=== PATIENT | female | born 1980 | race Caucasian/White ===

== ENCOUNTER 2020-03-11 21:53 | Observation (INO) | payer MEDICARE ==
[2020-03-11 22:52] LABS: Absolute Lymphocytes (CBC) 1.9 K/uL (0.7-4.9); Basophils % 0.6 % (0-1.3); Hematocrit 37.2 % (36.0-45.0); Lymphocytes % 20.9 % (15.3-44.8); RBC Red Blood Cell Count 4.28 M/uL (3.86-4.86)
[2020-03-11 23:03] LABS: Barbiturates NEGATIVE (NEGATIVE); Benzodiazepines POSITIVE (NEGATIVE); Cocaine NEGATIVE (NEGATIVE); METHAMPHETAM POSITIVE (NEGATIVE); Methadone NEGATIVE (NEGATIVE); Opiates NEGATIVE (NEGATIVE); Phencyclidine NEGATIVE (NEGATIVE); THC Cannibis POSITIVE (NEGATIVE)
[2020-03-11 23:08] LABS: Protime INR 1.06
[2020-03-11 23:34] LABS: ALT/SGPT 34 U/L (12-78); AST/SGOT 35 U/L (15-37); Albumin 3.5 g/dL (3.4-5.0); Alkaline Phosphatase 117 U/L (45-117); BUN Blood Urea Nitrogen 20 mg/dL (7-18); Bicarbonate 28 mmol/L (21-32); Bilirubin Direct 0.1 mg/dL (0-0.2); Bilirubin Total 0.5 mg/dL (0.2-1.0); Glucose Level 188 mg/dL (74-106); Potassium 3.8 mmol/L (3.5-5.1); Protein, Total 7.4 g/dL (6.4-8.2); Sodium Level 139 mmol/L (136-145); Troponin (Emerg Dept Use Only) < 0.02 ng/mL (0.0-0.045)
[2020-03-11 23:39] LABS: Urine Blood NEGATIVE (NEG); Urine Glucose NEGATIVE (NEG); Urine Protein 1+ (NEG); Urine Specific Gravity >1.030 (1.005-1.030); Urine pH 5.5 (5.0-7.0)
--- NOTE | 2020-03-11 23:47 | EDPHYS ---
Physician Documentation [facility] Name: Pamela Richter Age: 39 yrs Sex: Female : 1980 Arrival Date: 03/11/2020 Time: 21:54 Bed 4 Private MD: ED Physician Merritt Vizcaino HPI: 03/11 22:47 This 39 yrs old Female presents to ER via Wheelchair with complaints of pm1 Overdose. 22:47 The patient presents to the emergency department after a known overdose, that was pm1 accidental. Context: Method: rectal delivery, Time: just prior to arrival, the OD/poisoning occurred at at home, and was witnessed by a significant other, boyfriend. Associated signs and symptoms: Pertinent negatives: None at the moment. Patient squirted with a syringe heroin mixed in water. Boyfriend found her on the floor with bluish lips with shallow breathing so he gave her about 8-9 rescue breaths and she started breathing well on her own. Patient denies any other drug use but boyfriend mentioned that she might have used some Xanax. 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 - Social history:: Smoking status: Patient reports the use of cigarette tobacco products, Patient uses alcohol, street drugs, heroin, The patient lives with significant other. ROS: 22:47 Constitutional: Negative for fever, chills, and weight loss, Eyes: Negative for injury, pm1 pain, redness, and discharge, ENT: Negative for injury, pain, and discharge, Neck: Negative for injury, pain, and swelling, Cardiovascular: Negative for chest pain, palpitations, and edema, Respiratory: Negative for shortness of breath, cough, wheezing, and pleuritic chest pain, Abdomen/GI: Negative for abdominal pain, nausea, vomiting, diarrhea, and constipation, Back: Negative for injury and pain, MS/Extremity: Negative for injury and deformity, Skin: Negative for injury, rash, and discoloration, Neuro: Negative for headache, weakness, numbness, tingling, and seizure. Exam: 22:47 Constitutional: This is a well developed, well nourished patient who is awake, alert, pm1 and in no acute distress. Head/Face: Normocephalic, atraumatic. 22:47 MS/ Extremity: Pulses equal, no cyanosis. Neurovascular intact. Full, normal range of motion. 22:47 Cardiovascular: Exam negative for acute changes, Rate: normal, Rhythm: regular, Pulses: no pulse deficits are appreciated. 22:47 Respiratory: Exam negative for acute changes, respiratory distress, shortness of breath. 22:47 Neuro: Exam negative for acute changes, Orientation: to person, place, time, situation, appears sleepy. Mentation: is normal, Motor: is normal, moves all fours, Sensation: is normal, no obvious gross deficits. Vital Signs: 22:10 BP 114 / 75; Pulse 80; Resp 18; Temp 97.5(TE); Pulse Ox 100% on 3 lpm NC; oe 23:00 BP 113 / 62; Pulse 69; Resp 15; Pulse Ox 99% on 2 lpm NC; rr5 03/12 00:00 BP 104 / 77; Pulse 75; Resp 14; Pulse Ox 98% on 2 lpm NC; rr5 00:50 BP 111 / 70; Pulse 70; Resp 16; Pulse Ox 99% on 2 lpm NC; rr5 [place] Coma Score: 03/11 22:00 Eye Response: to voice(3). Verbal Response: oriented(5). Motor Response: obeys rr5 commands(6). Total: 14. 03/12 00:00 Eye Response: to voice(3). Verbal Response: oriented(5). Motor Response: obeys rr5 commands(6). Total: 14. MDM: 03/11 22:20 Patient medically screened. pm1 23:10 Data reviewed: vital signs. Data interpreted: Pulse oximetry: on room air is 100 %. pm1 Interpretation: normal. 23:44 Counseling: I had a detailed discussion with the patient and/or guardian regarding: the pm1 historical points, exam findings, and any diagnostic results supporting the discharge/admit diagnosis, lab results, the need for further work-up and treatment in the hospital. 23:44 Physician consultation: Santino PEARSON was called at 23:46, was contacted at 23:46, pm1 regarding admission, patient's condition, and will see patient in ED. 03/11 22:14 Order name: Acetaminophen; Complete Time: 23:39 rr5 03/11 22:14 Order name: Basic Metabolic Panel; Complete Time: 23:39 rr5 03/11 22:14 Order name: CBC with Diff; Complete Time: 23:31 rr5 03/11 22:14 Order name: ETOH Level; Complete Time: 23:31 rr5 03/11 22:14 Order name: Hepatic Function; Complete Time: 23:39 rr5 03/11 22:14 Order name: PT-INR; Complete Time: 23:31 rr5 03/11 22:14 Order name: Ptt, Activated; Complete Time: 23:31 rr5 03/11 22:14 Order name: Salicylate; Complete Time: 23:31 rr5 03/11 22:14 Order name: Urine Drug Screen; Complete Time: 23:31 rr5 03/11 22:40 Order name: Glucose, Ancillary Testing; Complete Time: 22:47 EDMS 03/11 22:43 Order name: Urine --Ancillary (enter results); Complete Time: 23:39 tt3 03/11 22:43 Order name: Urine Dipstick--Ancillary (enter results); Complete Time: 23:39 tt3 03/11 22:47 Order name: Troponin (Emerg Dept Use Only); Complete Time: 23:39 EDMS 03/11 22:14 Order name: EKG; Complete Time: 22:14 rr5 03/11 22:14 Order name: EKG - Nurse/Tech; Complete Time: 22:34 rr5 03/11 22:14 Order name: IV Saline Lock; Complete Time: 22:34 rr5 03/11 22:14 Order name: Labs collected and sent; Complete Time: 22:34 rr5 03/11 22:14 Order name: Urine Dipstick-Ancillary (obtain specimen); Complete Time: 22:34 rr5 03/11 22:34 Order name: Urine Test (obtain specimen); Complete Time: 22:34 rr5 03/11 22:34 Order name: Straight Cath - Urine; Complete Time: 22:35 rr5 03/12 00:28 Order name: COVID-19 rr5 Administered Medications: 23:50 Drug: NS 0.9% 1000 ml Route: IV; Rate: 1000 ml; Site: left hand; rr5 Disposition: 03/12 05:37 Co-signature as Attending Physician, Merritt Vizcaino MD. [email or web address] Disposition: 03/11/20 23:46 Hospitalization ordered by Arslan Shetty for Observation. Preliminary diagnosis is Poisoning by heroin, accidental (unintentional). - Bed requested for Telemetry/MedSurg (observation). - Status is Observation. rr5 - Condition is Stable. - Problem is new. - Symptoms have improved. Signatures: Dispatcher [employer] EDIL Vinicius Jarrell, RN RN sg Brigido Huber, OPERATIONS REPRESENTATIVE OPERATIONS REPRESENTATIVE pm1 Aman Quinn RN RN rr5 Merritt Vizcaino MD MD [email or web address] Corrections: (The following items were deleted from the chart) 03/11 22:47 22:22 TROPONIN (EMERG DEPT USE ONLY)+C.LAB.BRZ ordered. EDIL EDIL 03/12 00:54 03/11 23:46 Hospitalization Ordered by Arslan Shetty DO for Observation. Preliminary rr5 diagnosis is Poisoning by heroin, accidental (unintentional). Bed requested for Telemetry/MedSurg (observation). Status is Observation. Condition is Stable. Problem is new. Symptoms have improved. pm1
--- NOTE | 2020-03-11 23:47 | ER ---
Nurse's Notes [facility] Name: Pamela Richter Age: 39 yrs Sex: Female : 1980 Arrival Date: 03/11/2020 Time: 21:54 Bed 4 Private MD: Diagnosis: Poisoning by heroin, accidental (unintentional) Presentation: 03/11 22:04 Acuity: MANDI 1 sg 22:05 Chief complaint: Friend and/or Co-Worker states: I found her laying down, wasn't sg responding wasn't breathing, her lips and hands were blue. I started CPR with rescue breathing and she was able to respond, I was not able to find Narcan to give to her, I think she had moved it. She did heroin for sure, rectally, Im not sure if she did any bars tonight or not, I was at work and I found her like that and just had to get her here. Coronavirus screen: Client denies travel out of the [place] in the last 14 days. At this time, the client does not indicate any symptoms associated with coronavirus-19. Ebola Screen: Patient negative for fever greater than or equal to 101.5 degrees Fahrenheit, and additional compatible Ebola Virus Disease symptoms Patient denies exposure to infectious person. Patient denies travel to an Ebola-affected area in the 21 days before illness onset. No symptoms or risks identified at this time. Initial Sepsis Screen: Does the patient meet any 2 criteria? No. Patient's initial sepsis screen is negative. Does the patient have a suspected source of infection? No. Patient's initial sepsis screen is negative. Risk Assessment: Do you want to hurt yourself or someone else? Patient reports no desire to harm self or others. Onset of symptoms was March 11, 2020. Care prior to arrival: None. Mechanism of Injury:. Transition of care: patient was not received from another setting of care. 22:05 Method Of Arrival: Wheelchair sg Triage Assessment: 22:04 General: Appears unkempt, well nourished, Behavior is cooperative, drowsy. Neuro: Level sg of Consciousness is obeys commands, confused, Oriented to person, situation. Cardiovascular: Capillary refill is > 3 seconds is sluggish in bilateral fingers. Respiratory: Airway is patent Respiratory effort is relaxed, shallow, Respiratory pattern is hypoventilation. Derm: Skin is mottled, Skin temperature is cool. 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 - Social history:: Smoking status: Patient reports the use of cigarette tobacco products, Patient uses alcohol, street drugs, heroin, The patient lives with significant other. Screenin:35 Abuse screen: Denies threats or abuse. Denies injuries from another. Nutritional rr5 screening: No deficits noted. Tuberculosis screening: No symptoms or risk factors identified. Fall Risk IV access (20 points). Gait- Impaired (20 pts.). Mental Status- Overestimates/Forgets Limitations (15 pts.). Total Hung Fall Scale indicates High Risk Score (45 or more points). Fall prevention measures have been instituted. Side Rails Up X 2 Placed Close to Nursing Station Frequent Obs/Assessments Occuring Family Present and informed to notify staff if the need to leave the bedside As available patient and family educated on Fall Prevention Program and Strategies. Assessment: 22:00 General: Appears in no apparent distress. Behavior is cooperative, drowsy, Reports took rr5 heroin as stated by patient. Pain: Denies pain. Neuro: Level of Consciousness is drowsy. Cardiovascular: Capillary refill < 3 seconds Patient's skin is warm and dry. Respiratory: Airway is patent Respiratory effort is even, unlabored, Respiratory pattern is regular, symmetrical. GI: No signs and/or symptoms were reported involving the gastrointestinal system. : No signs and/or symptoms were reported regarding the genitourinary system. EENT: No signs and/or symptoms were reported regarding the EENT system. Derm: Skin is intact, is healthy with good turgor, Skin temperature is warm. Musculoskeletal: Circulation, motion, and sensation intact. Capillary refill < 3 seconds. 23:00 Reassessment: Patient appears in no apparent distress at this time. Patient and/or rr5 family updated on plan of care and expected duration. Pain level reassessed. patient respond to verbal stimuli. 03/12 00:00 Reassessment: Patient appears in no apparent distress at this time. hospitalist at rr5 bedside discussed th e plan of care. 00:50 Reassessment: Patient appears in no apparent distress at this time. Patient is alert, rr5 oriented x 3, equal unlabored respirations, skin warm/dry/pink. trasnferred to ICU. Overdose: 03/11 22:04 Patient took heroin, unsure of how much as it was added to a syringe of water and sg inserted into the anus. Overdose occurred 30 minutes to 1 hour ago. Vital Signs: 22:10 BP 114 / 75; Pulse 80; Resp 18; Temp 97.5(TE); Pulse Ox 100% on 3 lpm NC; oe 23:00 BP 113 / 62; Pulse 69; Resp 15; Pulse Ox 99% on 2 lpm NC; rr5 03/12 00:00 BP 104 / 77; Pulse 75; Resp 14; Pulse Ox 98% on 2 lpm NC; rr5 00:50 BP 111 / 70; Pulse 70; Resp 16; Pulse Ox 99% on 2 lpm NC; rr5 [place] Coma Score: 03/11 22:00 Eye Response: to voice(3). Verbal Response: oriented(5). Motor Response: obeys rr5 commands(6). Total: 14. 03/12 00:00 Eye Response: to voice(3). Verbal Response: oriented(5). Motor Response: obeys rr5 commands(6). Total: 14. ED Course: 03/11 21:54 Patient arrived in ED. am2 22:04 Triage completed. sg 22:04 Arm band placed on. sg 22:05 [facility] pm1 22:05 Merritt Vizcaino MD is Attending Physician. pm1 22:10 EKG done, by ED staff, reviewed by Brigido Huber NP. rr5 22:13 Aman Quinn RN is Primary Nurse. rr5 22:15 Inserted saline lock: 20 gauge in left hand, using aseptic technique. Blood collected. rr5 22:35 Patient has correct armband on for positive identification. Placed in gown. Bed in low rr5 position. Call light in reach. Side rails up X2. teletypesetter monitor on. Pulse ox on. NIBP on. 22:35 Urine collected: straight cath specimen, clear. rr5 23:46 Arslan Shetty DO is Hospitalizing Provider. pm1 03/12 00:50 No provider procedures requiring assistance completed. Patient admitted, IV remains in rr5 place. intact, No redness/swelling at site. Administered Medications: 03/11 23:50 Drug: NS 0.9% 1000 ml Route: IV; Rate: 1000 ml; Site: left hand; rr5 Outcome: 23:46 Decision to Hospitalize by Provider. pm1 03/12 00:50 Admitted to ICU accompanied by nurse, via stretcher, room 9, with oxygen, with chart, rr5 Report called to lori Condition: stable Instructed on the need for admit. 00:54 Patient left the ED. rr5 Signatures: Vinicius Jarrell, RN RN sg Brigido Huber, DANIELLE SENIOR ANDROID SOFTWARE ENGINEER pm1 Wild Pittman Amanda am2 Aman Quinn, RN RN rr5
[2020-03-11] MEDS ORDERED: NA CHLORIDE 0.9% 1,000 ML ONE (23:58)
--- NOTE | 2020-03-12 00:39 | P.HP ---
Certification for Inpatient Patient admitted to: Observation With expected LOS: <2 Midnights Patient will require the following post-hospital care: None Practitioner: I am a practitioner with admitting privileges, knowledge of patient current condition, hospital course, and medical plan of care. Services: Services provided to patient in accordance with Admission requirements found in Title 42 Section 412.3 of the Code of Federal Regulations Patient History Date of Service: 03/12/20 Primary Care Provider: None Reason for admission: Opiate overdose History of Present Illness: 39-year-old female with history of diabetes mellitus type 1, hypertension presents emergency department for opiate overdose. Patient lives in the boyfriend who states that he found he had stepped outside for a couple min and walked into find her lying on the floor, unresponsive and cyanotic. He started giving rescue breaths and perform CPR and she then responded. Upon arrival to the ED patient was awake but very drowsy, admits to taking small amount of methamphetamine and taking heroin rectally this evening. Patient also admits to occasionally using marijuana as well as drinking vodka daily. Patient's workup in the emergency department was unremarkable aside from clinical dehydration. When I saw the patient in the emergency department she was obtunded but arousable to loud verbal stimulus. Patient quickly falls back asleep. Patient has not received Narcan at this time, respiratory rate normal. Will admit patient to ICU for close monitoring overnight. Can likely be discharged tomorrow. - Past Medical/Surgical History Diabetic: Yes -: Diabetes mellitus type 1 -: Hypertension -: Narcotic drug abuse -: Alcohol abuse -: Tobacco abuse -: none Psychosocial/ Personal History: Patient lives with her boyfriend and is currently unemployed - Family History Family History: Reviewed- Non-Contributory - Social History Smoking Status: Current every day smoker Counseled patient to stop smoking for: less than 10 minutes Smoking therapy provided: Yes Alcohol use: Yes CD- Drugs: Yes Caffeine use: Yes Place of Residence: Home Review of Systems Unremarkable Physical Examination - Physical Exam General: Oriented x3, Other (Obtunded, arousable to loud verbal stimulus but quickly falls back asleep) HEENT: Atraumatic, Normocephalic, PERRLA, Mucous membr. moist/pink (Mucous membranes dry) Neck: Supple Respiratory: Clear to auscultation bilaterally, Normal air movement Cardiovascular: No edema, Normal S1 S2 Capillary refill: <2 Seconds Gastrointestinal: Normal bowel sounds, Soft and benign Musculoskeletal: No contractures, No erythema, No tenderness Integumentary: No significant lesion, No tenderness/swelling, No erythema Neurological: Normal speech, Normal strength at 5/5 x4 extr, Normal tone, Normal affect - Studies Laboratory Data (last 24 hrs) 03/11/20 22:30: Sodium 139, Potassium 3.8, BUN 20 H, Creatinine 0.86, Glucose 188 H, Total Bilirubin 0.5, AST 35, ALT 34, Alkaline Phosphatase 117 03/11/20 22:24: PT 12.5, INR 1.06, APTT 28.6 03/11/20 22:24: WBC 9.1, Hgb 12.9, Hct 37.2, Plt Count 269 Assessment and Plan - Plan Assessment Opiate overdose Diabetes mellitus type 1 Hypertension Narcotic drug abuse Alcohol abuse Tobacco abuse Plan Opiate overdose: Admit to ICU for close monitoring overnight, continue to monitor respiratory status closely. Patient does appear clinically dehydrated, continue with IV hydration overnight. P.r.n. Narcan. DVT prophylaxis Lovenox 40 mg subcutaneous once daily. Discussed need for cessation. Diabetes mellitus type 1: A.c. HS Accu-Cheks, sliding scale insulin therapy, A1c with morning labs. Hypertension: Patient blood pressure around 100 systolic at this time, the obtain home medications but hold at this time. Narcotic drug abuse: Discussed need for cessation. Alcohol abuse: Patient reports drinking 2-3 alcoholic beverages per day typically vodka. Discussed need for cessation. No signs of withdrawal at this time. Will monitor closely. Tobacco abuse: Discussed need for cessation, will provide patient with nicotine patch as needed. Discharge Plan: Home Plan to discharge in: 24 Hours - Advance Directives Does patient have a Living Will: No Does patient have a Durable POA for Healthcare: No - Code Status/Comfort Care Code Status Assessed: Yes Critical Care: No Time Spent Managing Pts Care (In Minutes): 55
[2020-03-12 01:44] VITALS: BMI 23.1
[2020-03-12] MEDS ORDERED: NA CHLORIDE 0.9% 1,000 ML IV SCH (01:48)
[2020-03-12] MEDS ORDERED: ONDANSETRON 4 MG/2 ML VIAL IV PRN (01:48)
[2020-03-12] MEDS ORDERED: NALOXONE HCL 2 MG/2 ML VIAL IV PRN (01:48)
[2020-03-12] MEDS ORDERED: ACETAMINOPHEN 500 MG TAB PO PRN (01:48)
[2020-03-12] MEDS ORDERED: NA CHLORIDE 0.9% 1,000 ML ONE (02:12)
[2020-03-12 05:42] LABS: Absolute Lymphocytes (CBC) 2.2 K/uL (0.7-4.9); BUN Blood Urea Nitrogen 19 mg/dL (7-18); Basophils % 0.6 % (0-1.3); Bicarbonate 29 mmol/L (21-32); Glucose Level 113 mg/dL (74-106); Hematocrit 38.1 % (36.0-45.0); MPV 9.1 fL (7.6-11.3); Potassium 4.1 mmol/L (3.5-5.1); RBC Red Blood Cell Count 4.33 M/uL (3.86-4.86); Sodium Level 142 mmol/L (136-145)
[2020-03-12] MEDS ORDERED: INSULIN -REGULAR HUMAN 50 UNIT/0.5 ML ML SQ SCH (07:30)
[2020-03-12] MEDS ORDERED: NICOTINE 21 MG/PAT TD ONE (08:03)
[2020-03-12] MEDS ORDERED: INSULIN -REGULAR HUMAN 50 UNIT/0.5 ML ML ONE (08:04)
[2020-03-12] MEDS ORDERED: ENOXAPARIN 40 MG/0.4 ML SQ ONE (08:04)
[2020-03-12 08:21] VITALS: O2SAT 96
[2020-03-12] MEDS ORDERED: INFLUENZA VACCINE (for 3y+) 0.5 ML DOSE IMVAC ONE (09:00)
[2020-03-12] MEDS ORDERED: ENOXAPARIN 40 MG/0.4 ML SQ SCH (09:00)
[2020-03-12] MEDS ORDERED: NICOTINE 21 MG/PAT TD SCH (09:00)
[2020-03-12] MEDS ORDERED: ONDANSETRON 4 MG/2 ML VIAL ONE (10:04)
--- NOTE | 2020-03-12 10:38 | P.DS ---
Discharge Date: 03/12/20 Primary Care Provider: None Disposition: ROUTINE DISCHARGE Discharge Condition: GOOD Reason for Admission: Opiate overdose Brief History of Present Illness: Patient is a 39-year-old female with history of diabetes mellitus type 1, hypertension presents emergency department for opiate overdose. Patient lives in the boyfriend who states that he found he had stepped outside for a couple min and walked into find her lying on the floor, unresponsive and cyanotic. He started giving rescue breaths and perform CPR and she then responded. Upon arrival to the ED patient was awake but very drowsy, admits to taking small amount of methamphetamine and taking heroin rectally this evening. Patient also admits to occasionally using marijuana as well as drinking vodka daily. Patient's workup in the emergency department was unremarkable aside from clinical dehydration. When I saw the patient in the emergency department she was obtunded but arousable to loud verbal stimulus. Patient quickly falls back asleep. Patient has not received Narcan at this time, respiratory rate normal. Will admit patient to ICU for close monitoring overnight. Can likely be discharged tomorrow. Hospital Course: Patient is clinically doing much better. Her is at bedside and he states that she is back to her baseline. At this time she is stable for discharge with outpatient followup 1-2 weeks. Vital Signs/Physical Exam: Temp Pulse Resp BP Pulse Ox 97.5 F 72 15 118/80 95 03/12/20 06:00 03/12/20 06:00 03/12/20 06:00 03/12/20 06:00 03/12/20 06:00 General: Alert, In no apparent distress, Oriented x3 Laboratory Data at Discharge: WBC 7.5 K/uL (4.3-10.9) D 03/12/20 04:38 Hgb 13.0 g/dL (12.0-15.0) 03/12/20 04:38 Hct 38.1 % (36.0-45.0) 03/12/20 04:38 Plt Count 262 K/uL (152-406) 03/12/20 04:38 PT 12.5 SECONDS (9.5-12.5) 03/11/20 22:24 INR 1.06 03/11/20 22:24 APTT 28.6 SECONDS (24.3-36.9) 03/11/20 22:24 Sodium 142 mmol/L (136-145) 03/12/20 04:38 Potassium 4.1 mmol/L (3.5-5.1) 03/12/20 04:38 BUN 19 mg/dL (7-18) H 03/12/20 04:38 Creatinine 0.68 mg/dL (0.55-1.3) 03/12/20 04:38 Glucose 113 mg/dL (74-106) H 03/12/20 04:38 Total Bilirubin 0.5 mg/dL (0.2-1.0) 03/11/20 22:30 AST 35 U/L (15-37) 03/11/20 22:30 ALT 34 U/L (12-78) 03/11/20 22:30 Alkaline Phosphatase 117 U/L (45-117) 03/11/20 22:30 Home Medications: Insulin Aspart [Novolog Flexpen] See Protocol SQ TID #2 03/12/20 Insulin Glargine Human [Lantus*] 35 unit SQ DAILY 03/12/20 Metoprolol Succinate 50 mg PO DAILY 03/12/20 clonazePAM [Clonazepam] 0.5 mg PO BIDP PRN 03/12/20 New Medications: Insulin Aspart [Novolog Flexpen] See Protocol SQ TID #2 Patient Discharge Instructions: OK TO DC IV AND DC HOME. FOLLOW-UP WITH PRIMARY CARE PROVIDER IN 1-2 WEEKS. FOLLOW-UP WITH REHAB IF REQUESTED. RETURN TO THE ER IF symptoms worsen. CALL or TEXT DR. PICKETT AT [phone] IF ANY QUESTIONS REGARDING HOSPITAL STAY. PLEASE CALL THE FLOOR AT [phone] IF ANY MEDICATION OR NURSING QUESTIONS. Diet: Regular Activity: Fall precautions Time spent managing pt's care (in minutes): 25
[2020-03-12 11:02] VITALS: BP 124/89; TEMP 97.8
--- OUTSIDE RECORDS SUMMARY | 2020-03-15 02:05 | XMS REPORT | Clinical Summary ---
:1980 Author Organization [facility] Address [address] [place] [address] Care Team Providers Name Role Phone Unavailable Primary Care Provider Unavailable Allergies No Known Allergies Medications Medication Sig Dispensed Refills Start Date End Date Status hydrochlorothiazide 12.5 mg Take 12.5 mg 0 Active capsule by mouth every morning. insulin glargine (LANTUS Inject under 0 Active SOLOSTAR) 100 unit/mL (3 the skin mL) InPn once. insulin aspart (NOVOLOG) Inject under 0 Active 100 unit/mL injection the skin 3 times daily. ibuprofen (MOTRIN) 400 mg Take 1 tablet 20 tablet 0 05/17/2014 Active tabletIndications: by mouth Cellulitis every 6 hours as needed for Pain. acetaminophen-codeine Take 1 tablet 15 tablet 0 05/29/2014 Active (TYLENOL/CODEINE #3) 300-30 by mouth mg per tabletIndications: every 4 hours Abscess as needed for Pain. Active Problems Problem Noted Date Cough 05/16/2014 Social History Tobacco Use Types Packs/Day Years Used Date Never Assessed Sex Assigned at Date Recorded Not on file Job Start Date Occupation Industry Not on file Not on file Not on file Travel History Travel Start Travel End No recent travel history available. 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
--- OUTSIDE RECORDS SUMMARY | 2020-03-15 02:06 | XMS REPORT | Clinical Summary ---
:1980 Author Organization [facility] Address [address] [place] [address] Care Team Providers Name Role Phone Jone Goldman MD Primary Care Provider Allergies No Known Active Allergies Medications Medication Sig Dispensed Refills Start Date End Date Status insulin ASPART Inject 10 Units 0 Active (NovoLOG) 100 under the skin. unit/mL insulin pen insulin GLARGINE Inject 30 Units 0 Active (LANTUS) 100 unit/mL under the skin injection (vial) daily. zolpidem (AMBIEN) 5 Take 10 mg by 0 07/20/2017 Active MG tablet mouth nightly as needed for sleep. clonAZEPAM Take 0.5 mg by 1 06/18/2017 Act wolf (KlonoPIN) 0.5 MG mouth 2 (two) tablet times a day as needed for anxiety. metoprolol tartrate Take 25 mg by 0 Active (LOPRESSOR) 25 mg mouth daily. tablet flash glucose 1 Package daily. 1 each 0 07/28/2019 Active scanning reader (FREESTYLE RUPA 14 DAY READER) [facility] flash glucose sensor 6 Packages 1 kit 0 07/28/2019 Active (FREESTYLE RUPA 14 daily. DAY SENSOR) kit HYDROcodone-acetamin Take 1 tablet by 15 tablet 0 07/27/2019 0 07/31/2019 ophen (NORCO) 5-325 mouth every 6 mg per (six) hours as tabletIndications: needed for acute pain moderate pain for up to 4 days .acute pain. Max Daily Amount: 4 tablets ondansetron (ZOFRAN) Take 1 tablet (4 12 tablet 0 07/27/2019 0 07/31/2019 4 MG tablet mg total) by mouth every 8 (eight) hours as needed for nausea or vomiting for up to 4 days. cephalexin (KEFLEX) Take 1 capsule 28 capsule 0 07/27/2019 500 MG capsule (500 mg total) by mouth 4 (four) times a day for 7 days. aspirin 81 mg Chew 1 tablet 30 tablet 0 07/29/2019 08/28/2019 chewable tablet (81 mg total) daily for 30 days. cephalexin (KEFLEX) Take 1 capsule 28 capsule 0 07/28/2019 500 MG capsule (500 mg total) by mouth 4 (four) times a day for 7 days. ondansetron (ZOFRAN) Take 1 tablet (4 20 tablet 0 07/28/2019 0 08/27/2019 4 MG tablet mg total) by mouth every 8 (eight) hours as needed for nausea or vomiting for up to 30 days. Active Problems Problem Noted Date Laceration of right little finger without foreign body without damage to 07/28/2019 nail Injury of finger of right hand 07/28/2019 Type 2 diabetes mellitus with hyperglycemia, with long -term current use of 07/28/2019 insulin Laceration of right little finger without foreign body without damage to 07/27/2019 nail Encounters Date Type Specialty Care Team Description 08/01/2019 Office Visit Orthopedic Surgery Navin Sullivan Lacer ation of right MD Ayaz little finger without foreign body without damage to nail, subsequen t encounter (Prim yee Dx) 08/01/2019 Orders Only Orthopedic Surgery Mickey Sutton MA Lace ration of right little finger without foreign body without damage to nail, initial encounter (Prim yee Dx) 07/27/2019 Anesthesia Event General Surgery Gucci Frias MD 07/27/2019 Surgery General Surgery Navin Sullivan Right li ttle finger MD Ayaz i&d with arteri al and nerve repai r 07/27/2019 Orders Only Orthopedic Surgery Mickey Sutton MA 07/26/2019 - Emergency General Surgery Nicolas Pickens Lacerat ion of right little finger without damage to nail, foreign body presence unspecified, initial encounter (Primary Dx); 07/28/2019 MD Rio Laceration of right little finger withou t foreign body without damage to nail, initial encounter; Yerramadha, Injury of finge r of right hand, initial encounter; Deisy Sharma, Type 2 chun betes mellitus with hyperglycemia, with long-term current use of insulin (HCC) 07/25/2019 Emergency Emergency Medicine Tony Chang Right elb ow pain (Primary Dx); MD Wilberto Hyperglycemia after 03/14/2019 Surgical History Surgery Date Site/Laterality Comments REPAIR, NERVE, DIGITAL, 07/27/2019 Little Finger/Right Proc edure: Right little HAND finger i&d with arterial and nerve repair; S urgeon: Navin Sullivan MD; Location: [facility]; Service: Orthopedics; La terality: Right; Medical devices from this surgery are in t he Implants section. Medical History Medical History Date Comments Diabetes mellitus (HCC) Pancreatitis Social History Tobacco Use Types Packs/Day Years Used Date Current Every Day Smoker Cigarettes 0.5 Smokeless Tobacco: Never Used Alcohol Use Drinks/Week oz/Week Comments Yes Sex Assigned at Date Recorded Not on file Last Filed Vital Signs Vital Sign Reading Time Taken Comments Blood Pressure 129/69 07/28/2019 10:42 AM [facility]ERSON Pulse 87 07/28/2019 10:42 AM [facility] UP PERSON Temperature 36.7 C (98.1 F) 07/28/2019 10:42 AM [facility] UP PERSON Respiratory Rate 14 07/28/2019 10:42 AM [facility] UP PERSON Oxygen Saturation 100% 07/28/2019 10:42 AM [facility] UP PERSON Inhaled Oxygen Concentration - - Weight 77.1 kg (170 lb) 08/01/2019 11:24 AM DISH UP PERSON Height 170.2 cm (5' 7") 08/01/2019 11:24 AM [facility] UP PERSON Body Mass Index 26.63 08/01/2019 11:24 AM [facility]ISH UP PERSON Plan of Treatment Health Maintenance Due Date Last Done Comments DIABETIC RETINAL EYE EXAM 1978 DIABETIC FOOT EXAM 1988 URINE MICROALBUMIN 1988 CERVICAL CANCER SCREENING 08/08/1999 INFLUENZA VACCINE 01/07/2020 04/22/2013 Implants Implanted Type Area Barbecue Cook Device Shelf Model / Identifier Expiration Serial / Date Lot 2mm X 10mm Axoguard Nerve Connector (Mfr 'D [employer], Sold Exclusively By [employer]) Graft Right: [employer] 07/08/2020 [id number] / Implanted: Qty: 1 on 07/27/2019 by Navin Sullivan MD at [facility] Material Hand [id number] / [id number] Procedures Procedure Name Priority Date/Time Associated Comments Diagnosis POC GLUCOSE Routine 07/28/2019 11:42 Results for this AM [facility] UP PERSON procedure are i n the results section. POC GLUCOSE Routine 07/28/2019 6:00 Results for this AM [facility] UP PERSON procedure are i n the results section. HC COMPLETE BLD COUNT Routine 07/28/2019 5:06 Re sults for this W/AUTO DIFF AM [facility] UP PERSON procedure are i n the results section. POC GLUCOSE Routine 07/27/2019 1:34 Results for this PM [facility] UP PERSON procedure are i n the results section. NH AN ELECTIVE Routine 07/27/2019 10:10 Results f or this ENDOTRACHEAL AIRWAY AM [facility] UP PERSON procedur e are in the results section. REPAIR, NERVE, DIGITAL, 07/27/2019 9:46 3 cm lacerati on to HAND AM [facility] UP PERSON right 5th finger POC GLUCOSE Routine 07/27/2019 8:17 Results for this AM [facility] UP PERSON procedure are i n the results section. ECG 12-LEAD Routine 07/27/2019 8:01 Results for this AM [facility] UP PERSON procedure are i n the results section. HCG QUALITATIVE, SERUM Routine 07/27/2019 4:25 R esults for this SCREEN AM [facility] UP PERSON procedure are i n the results section. ORTHOPEDIC INJURY Routine 07/27/2019 2:58 Laceration of Resul ts for this TREATMENT AM [facility] UP PERSON right little procedure are i n finger without the results damage to nail, section. foreign body presence unspecified, initial encounter XR HAND 3+ VW RIGHT STAT 07/27/2019 12:37 Resu lts for this AM [facility] UP PERSON procedure are i n the results section. ESTIMATED GFR STAT 07/27/2019 12:36 Results fo r this AM [facility] PERSON procedure are i n the results section. TYPE AND SCREEN Routine 07/27/2019 12:36 Results for this AM [facility] UP PERSON procedure are i n the results section. COMPREHENSIVE METABOLIC STAT 07/27/2019 12:36 Results for this PANEL AM [facility] UP PERSON procedure are i n the results section. PARTIAL THROMBOPLASTIN STAT 07/27/2019 12:36 R esults for this TIME (PTT) AM [facility] UP PERSON procedure are i n the results section. PROTHROMBIN TIME WITH STAT 07/27/2019 12:36 Re sults for this INR AM [facility]ISH UP PERSON procedure are i n the results section. HC COMPLETE BLD COUNT STAT 07/27/2019 12:30 Re sults for this W/AUTO DIFF AM [facility] UP PERSON procedure are i n the results section. NH CRITICAL CARE, E/M Routine 07/26/2019 11:42 Re sults for this 30-74 MINUTES PM [facility] UP PERSON procedure are in the results section. LACERATION REPAIR Routine 07/26/2019 11:42 Result s for this PM [facility] PERSON procedure are i n the results section. POC GLUCOSE Routine 07/25/2019 8:52 Results for this PM [facility] PERSON procedure are i n the results section. ECG 12-LEAD STAT 07/25/2019 8:07 Results for this PM [facility] UP PERSON procedure are i n the results section. ESTIMATED GFR STAT 07/25/2019 8:04 Results fo r this PM [facility] UP PERSON procedure are i n the results section. TROPONIN STAT 07/25/2019 8:04 Results for this PM [facility] UP PERSON procedure are i n the results section. LIPASE LEVEL STAT 07/25/2019 8:04 Results for this PM [facility] UP PERSON procedure are i n the results section. VENOUS BLOOD GAS STAT 07/25/2019 8:04 Results for this PM [facility] UP PERSON procedure are i n the results section. COMPREHENSIVE METABOLIC STAT 07/25/2019 8:04 Results for this PANEL PM [facility] UP PERSON procedure are i n the results section. HC COMPLETE BLD COUNT STAT 07/25/2019 8:04 Re sults for this W/AUTO DIFF PM DISH UP PERSON procedure are i n the results section. XR ELBOW 3+ VW RIGHT STAT 07/25/2019 7:46 Res ults for this PM D[facility] UP PERSON procedure are i n the results section. XR CHEST 1 VW PORTABLE STAT 07/25/2019 7:40 R esults for this PM [facility] UP PERSON procedure are i n the results section. ECG ED PRELIMINARY Routine 07/25/2019 7:26 Resul ts for this INTERPRETATION PM DISH UP PERSON procedure are in the results section. POC GLUCOSE Routine 07/25/2019 7:10 Results for this PM [facility] UP PERSON procedure are i n the results section. after 03/14/2019 Results POC glucose (07/28/2019 11:42 AM DISH UP PERSON)Only the most recent of6 resultswithin the time period is included. Pathologist Sig nature POC glucose 70 65 - 99 mg/dL [facility] Comment: [facility] Black Pickler Name: Dom Love Device ID: [id number] Specimen Performing Organization Address City/State/ZIP Code Phon e Number [facility] DEPARTMENT OF PATHOLOGY AND [id number] [place] [address] [place] [id number] [facility] [address] [place] [address] CBC with platelet and differential (07/28/2019 5:06 AM DISH UP PERSON)Only the most recent of3 resultswithin the time period is included. Pathologist Sig nature WBC 7.28 4.50 - 11.00 k/uL [facility] RBC 3.71 (L) 4.20 - 5.50 m/uL [facility] HGB 11.0 (L) 12.0 - 16.0 g/dL [facility] HCT 33.4 (L) 37.0 - 47.0 % [facility] MCV 90.0 82.0 - 100.0 fL [facility] MCH 29.6 27.0 - 34.0 pg [facility] MCHC 32.9 31.0 - 37.0 g/dL [facility] RDW - SD 39.2 37.0 - 55.0 fL [facility] MPV 11.1 8.8 - 13.2 fL [facility] Platelet count 245 150 - 400 k/uL [facility] Nucleated RBC 0.00 /100 WBC [facility] Neutrophils 64.8 39.0 - 69.0 % [facility] Lymphocytes 26.9 25.0 - 45.0 % [facility] Monocytes 7.6 0.0 - 10.0 % [facility] Eosinophils 0.1 0.0 - 5.0 % [facility] Basophils 0.3 0.0 - 1.0 % [facility] Specimen Blood Performing Organization Address City/State/ZIP Code Phon e Number [facility] DEPARTMENT OF PATHOLOGY AND [address] [place] [address] [facility] [id number] [place] [address] Airway (07/27/2019 10:10 AM DISH UP PERSON) Narrative Performed At Gucci Frias MD 07/27/2019 10:11 AM Airway Date/Time: 07/27/2019 9:51 AM Performed by: uGcci Frias MD Authorized by: Gucci Frias MD Location: OR Urgency: Elective Difficult Airway: No Anesthesiologist: Gucci Frias MD Preoxygenated with 100% O2: Yes C-spine Precautions Maintained Throughou t: Yes Mask Ventilation: Easy mask Final Airway Type: Endotracheal airway Final Endotracheal Airway: ETT Cuffed: Yes Technique Used: Direct laryngoscopy Devices/Methods Used in Placement: Int ubating stylet Insertion Site: Oral Blade Type: [place] Laryngoscope Blade/Videolaryngoscope Mulugeta de Size: 2 ETT Size (mm): 7.0 Cuff at minimum occlusion pressure: Yes Measured from: Lips ETT to Lips (cm): 20 Placement Verified by: CO2 detection, di rect visualization and equal breath sounds Laryngoscopic view: Grade IIa - partia l view of glottis Rapid Sequence Induction (RSI): No Modified RSI: No Number of Attempts at Approach: 1 ECG 12 lead (07/27/2019 8:01 AM DISH UP PERSON)Only the most recent of2 resultswithin the time period is included. Pathologist Sig nature Ventricular rate 82 [facility] Atrial rate 82 [facility] NH interval 120 [facility] QRSD interval 92 [facility] QT interval 404 [facility] QTC interval 472 [facility] P axis 1 54 [facility] QRS axis 1 84 [facility] T wave axis 51 [facility] EKG impression Normal sinus [facility] rhythm-Normal ECG-In automated comparison with ECG of 25-JUL-2019 20:07,-No significant change was found- Specimen Narrative Performed At This result has an attachment that is no t available. Performing Organization Address City/State/ZIP Code Phon e Number [facility] MUSE [address] [place] [address] hCG qualitative, serum screen (07/27/2019 4:25 AM DISH UP PERSON) Pathologist Sig nature hCG qualitative, serum Negative [facility] Specimen Blood Performing Organization Address City/State/ZIP Code Phon e Number [facility] DEPARTMENT OF PATHOLOGY AND [address] [place] [address] GENOMIC MEDICINE [facility] [address] [place], [place] [address] [facility] Orthopedic Injury Treatment (07/27/2019 2:58 AM DISH UP PERSON) Narrative Performed At Navin Sullivan MD 07/27/19 20 3:00 AM Orthopedic Injury Treatment Performed by: Navin Sullivan MD Authorized by: Navin Sullivan M D Injury: Injury location: Finger Post-procedure assessment: Neurological function: diminished Distal perfusion: diminished Range of motion: unchanged Patient tolerance of procedure: Ree erated well, no immediate complications Comments: The right hand was prepped and draped in a sterile fashion. A digital block was performed using 1% lidocaine without epineph rine. The wound was explored and there appeared to be bleeding of the radi al digital nerve of the small finger. The wound was thoroughly irrigated using normal saline and hemostasis was achieved with pressure. And the w ound was closed with 4-0 nylon. It was covered with Xeroform 4 x 4's Klin g and Coban. The cap refill was less than 2 seconds at the end of the proce dure. The patient tolerated the procedure well. XR Hand 3+ Vw Right (07/27/2019 12:37 AM DISH UP PERSON) Specimen Narrative Performed At EXAMINATION: XR HAND 3 VW RIGHT [facility] CLINICAL HISTORY: pink finger lacreati on COMPARISON: None. IMPRESSION: No evidence of acute right hand fracture or dislocatio n. Bandages/gauze overlie fifth digit. Otherwise, no radio paque foreign bodies. [id number] Procedure Note Hm Interface, Radiology Results Incoming - 07/27/2019 12:41 AM DISH UP PERSON EXAMINATION: XR HAND 3 VW RIGHT CLINICAL HISTORY: pink finger lacreatio n COMPARISON: None. IMPRESSION: No evidence of acute right hand fracture or dislocation. Bandages/gauze overlie fifth digit. Otherwise, no radiopaque foreign bodies. [id number] Performing Organization Address City/State/ZIP Code Phon e Number [facility] [address] [place] [address] Estimated GFR (07/27/2019 12:36 AM DISH UP PERSON)Only the most recent of2 resultswithin the time period is included. Estimated GFR >=90 mL/min/1.73 [facility] Comment: m2 CLEAR DOMINGUEZ Catergory Units Interpretation HOS PITAL G1 >=90 Normal or high G2 60-89 Mildly decreased G3a 45-59 Mildly to moderately decreas ed G3b 30-44 Moderately to severely decre ased G4 15-29 Severely decreased G5 <15 Kidney failure The eGFR was calculated using the Chronic Kidney Disea se Epidemiology Collaboration (CKD-EPI) equation. Interpretation is based on recommendations of the National Kidney Foundation-Kidney Disease Outcomes Elliot lity Initiative (NKF-KDOQI) published in 2014. Specimen Plasma specimen Performing Organization Address City/[facility] Phon e Number [facility] DEPARTMENT OF PATHOLOGY AND [id number] [place] [address] [place] [address] [facility] [id number] [place] [address] [place] [address] HOSPITAL Partial thromboplastin time, activated (07/27/2019 12:36 AM DISH UP PERSON) PTT 31.6 23.0 - 36.0 [facility] Comment: [facility] PTT therapeutic range for unfractionated heparin is HOSPITAL 61.0-112.0 seconds which corresponds to Anti-Xa 0.3-0.7 U/ml. Specimen Blood Performing Organization Address [facility] Phon e Number [facility] DEPARTMENT OF PATHOLOGY AND [id number] [place] [address] [place] [place] [id number] [place] [id number] [place] [address] Prothrombin time with INR (07/27/2019 12:36 AM DISH UP PERSON) Prothrombin time 14.1 11.5 - 14.5 [facility] INR 1.1 [facility] Comment: [facility] The International Normalized Ratio (INR) is a [facility] monitoring tool for patients who are stable on oral anticoagulant therapy. An INR of 2.0-3.0 is suggested for deep vein thrombosis/pulmonary embolism. Specimen Blood Performing Organization Address City/[facility] Phon e Number [facility] DEPARTMENT OF PATHOLOGY AND [address] [place] [address] [place] [address] [facility] [address] [place] [address] [place] [phone] HOSPITAL Type and screen (07/27/2019 12:36 AM DISH UP PERSON) Pathologist Sig nature ABO grouping A [facility] Rh type POS [facility] Antibody screen (gel) NEG [facility] Specimen Blood Performing Organization Address City/[facility] Phon e Number [facility] DEPARTMENT OF PATHOLOGY AND [address] [place] [address] [facility] [address] [place] [address] Comprehensive metabolic panel (07/27/2019 12:36 AM DISH UP PERSON)Only the most recent of2 resultswithin the time period is included. Sodium 136 135 - 148 [facility] mEq/L [facility] Potassium 4.2 3.5 - 5.0 [facility] mEq/L [facility] Chloride 100 98 - 112 mEq/L [facility] CO2 25 24 - 31 mEq/L [facility] Anion gap 11@ANIO 7 - 15 mEq/L [facility] BUN 13 6 - 20 mg/dL [facility] Creatinine 0.70 0.50 - 0.90 [facility] mg/dL [facility] Glucose 198 (H) 65 - 99 mg/dL [facility] Calcium 9.5 8.3 - 10.2 [facility] mg/dL [facility] Protein 7.1 6.3 - 8.3 g/dL [facility] Comment: [facility] Zwrwscf1705.6-7.0 g/dL HOSPITAL 1 aasw2361.4-7.6 g/dL 7 months-1tcnv713.1-7.3 g/dL 1-2 .6-7.5 g/dL >3 quday421.0-8.0 g/dL [id number] g/dL Albumin 4.2 3.5 - 5.0 g/dL [facility] A/G ratio 1.4 0.7 - 3.8 [facility] Alkaline phosphatase 111 (H) 35 - 104 U/L [facility] AST 23 10 - 35 U/L [facility] ALT 16 5 - 50 U/L [facility] Total bilirubin 0.3 0.0 - 1.2 [facility] mg/dL [facility] Specimen Plasma specimen Performing Organization Address City/State/ZIP Code Phon e Number [facility] DEPARTMENT OF PATHOLOGY AND [address] [place] [address] GENOMIC MEDICINE [facility] [address] [place] [address] CRITICAL CARE (07/26/2019 11:42 PM DISH UP PERSON) Narrative Performed At Nicolas Pickens MD 07/27/19 3:30 AM Critical Care Performed by: Nicolas Pickens MD Authorized by: Nicolas Pickens M D Critical care provider statement: Critical care time (minutes): 35 Critical care time was exclusive of: Separately b illable procedures and treating other patients Critical care was necessary to treat or prevent imminent or life-threatening deterioration of the fo llowing conditions: Trauma Critical care was time spent personal ly by me on the following activities: Development of treatment p bernadette with patient or surrogate, evaluation of patient's response to onur tment, examination of patient, obtaining history from patient or surrog ate, re-evaluation of patient's condition, pulse oximetry, ordering and review of radiographic studies, ordering and review of laboratory studie s, ordering and performing treatments and interventions, discussions with consult ants, interpretation of cardiac output measurements and revie w of old charts Mickey 'yes' if you are taking over critical care for this patient from another provider.: no Laceration Repair (07/26/2019 11:42 PM DISH UP PERSON) Narrative Performed At Nicolas Pickens MD 07/27/19 3:30 AM Laceration Repair Performed by: Nicolas Pickens MD Authorized by: Nicolas Pickens M D Consent: Consent obtained: Verbal Consent given by: Patient Risks discussed: Pain, poor cosmeti c result, infection, poor wound healing, need for additional repair, nerve damage, vas cular damage, tendon damage and retained foreign body Alternatives discussed: Delayed krystyna atment and no treatment [place] protocol: Procedure explained and questions ans wered to patient or proxy's satisfaction: yes Relevant documents present and verifi ed: yes Test results available and properly l abeled: yes Required blood products, implants, de vices, and special equipment available: yes Patient identity confirmed: Verball y with patient and arm band Anesthesia (see MAR for exact dosages): Anesthesia method: Nerve block Block anesthetic: Lidocaine 1% w/o epi Laceration details: Location: Finger Finger location: R small finger Length (cm): 3 Depth (mm): 2 Repair type: Repair type: Simple Pre-procedure details: Preparation: Patient was prepped and draped in us ual sterile fashion and imaging obtained to evaluate for for eign bodies Exploration: Hemostasis achieved with: Direct pr essure and tourniquet Wound exploration: wound explored thr ough full range of motion and entire depth of wound probed and visuali zed Wound extent: fascia violated and vas cular damage Wound extent: no foreign bodies/material noted, no tendon damage noted, no underlying fracture noted and no ampu tation Contaminated: no Treatment: Area cleansed with: Saline and Beta dine Amount of cleaning: Extensive Irrigation solution: Sterile water Irrigation volume: 500 mL Irrigation method: Pressure wash Visualized foreign bodies/material re moved: no Mucous membrane repair: Suture size: 4-0 Suture material: Vicryl Suture technique: Simple interrupte d Number of sutures: 2 Approximation: Approximation: Close Vermilion border: well-aligned Post-procedure details: Dressing: Packing and adhesive band age Patient tolerance of procedure: Ree erated well, no immediate complications Comments: Bleeding did continue. Direct pressure was applied . Troponin (07/25/2019 8:04 PM DISH UP PERSON) Troponin <0.006 0.000 - 0.040 [facility] Comment: ng/mL [facility] In patients suspected of having a myocardial infarctio n, along with all other appropriate clinical measures and actions includ ing ECG and other diagnostics as appropriate, measure Ultra TnI at 0 hrs and at 3 hrs. Myocardial infarction VERY LIKELY The 0 hr TnI level is > 0.10 ng/mL Myocardial infarction LIKELY The 0 hr TnI level is > 0.04 ng/mL and 3 hr level is i ncreased or decreased by at least 0.020 ng/mL Myocardial infarction VERY UNLIKELY Both the 0 hr and 3 hr TnI levels <= 0.04 ng/mL(within normal limits) OR 0 hr is > 0.04 ng/mL and 3 hr is increased OR decreased by less than 0.020 ng/mL Specimen Plasma specimen Performing Organization Address [facility] Phon e Number [facility] DEPARTMENT OF PATHOLOGY AND [address] [place] [address] Lipase level (07/25/2019 8:04 PM DISH UP PERSON) Pathologist Sig nature Lipase 10 (L) 13 - 60 U/L [facility] Specimen Plasma specimen Performing Organization Address [facility] Phon e Number [facility] DEPARTMENT OF PATHOLOGY AND [address] [place] [address] Venous blood gas (07/25/2019 8:04 PM DISH UP PERSON) Pathologist Sig nature pH, venous 7.38 7.32 - 7.42 [facility] pCO2, venous 50 45 - 51 mmHg [facility] pO2, venous 33 25 - 40 mmHg [facility] Base excess, venous 3 (H) -2 - 2 meq/L [facility] O2 saturation, 35 (L) 40 - 70 % [facility] Bicarbonate, venous 25.4 21.0 - 28.0 [facility] mmol/L [facility] FiO2, inspired O2% Unknown % [facility] Specimen Blood Performing Organization Address [facility] Phon e Number [facility] DEPARTMENT OF PATHOLOGY AND [address] [place] [address] XR Elbow 3+ Vw Right (07/25/2019 7:46 PM DISH UP PERSON) Specimen Narrative Performed At EXAMINATION: XR ELBOW 3 VW RIGHT [facility] CLINICAL HISTORY: Elbow pain initial exam COMPARISON: None available. IMPRESSION: 1. Approximately age and gender appropriate mineraliza tion of the osseous structures. 2. Normal alignment of the right elbow without acute f racture or dislocation. 3. The elbow fat pads are preserved. [id number] Procedure Note Interface, Radiology Results Incoming - 07/25/2019 7:52 PM DISH UP PERSON EXAMINATION: XR ELBOW 3 VW RIGHT CLINICAL HISTORY: Elbow pain initial e xam COMPARISON: None available. IMPRESSION: 1. Approximately age and gender appropri ate mineralization of the osseous structures. 2. Normal alignment of the right elbow w ithout acute fracture or dislocation. 3. The elbow fat pads are preserved. [id number] Performing Organization Address [facility] Phon e Number [facility] [id number] [place] [address] XR Chest 1 Vw Portable (07/25/2019 7:40 PM DISH UP PERSON) Specimen Narrative Performed At EXAMINATION: XR CHEST 1 VW PORTABLE [facility] CLINICAL HISTORY: SOB COMPARISON: None IMPRESSION: 1.The heart and pulmonary vasculature ar e within normal limits. 2.No consolidation or pleural effusion i s demonstrated. 3.There is no acute osseous pathology. [id number] Procedure Note Hm Interface, Radiology Results Incoming - 07/25/2019 7:45 PM DISH UP PERSON EXAMINATION: XR CHEST 1 VW PORTABLE CLINICAL HISTORY: SOB COMPARISON: None IMPRESSION: 1.The heart and pulmonary vasculature ar e within normal limits. 2.No consolidation or pleural effusion i s demonstrated. 3.There is no acute osseous pathology. [id number] Performing Organization Address [facility] Phon e Number [facility] [id number] [place] [address] ECG ED Preliminary Interpretation - Not an Order (07/25/2019 7:26 PM DISH UP PERSON) Narrative Performed At Tony Chang MD 07/25/2019 8:57 PM ECG ED Preliminary Interpretation - Not an Order Performed by: Tony Chang MD Authorized by: Tony Chang MD Rate: ECG rate: 94 ECG rate assessment: normal Rhythm: Rhythm: sinus rhythm Ectopy: Ectopy: none QRS: QRS axis: Normal QRS intervals: Normal ST segments: ST segments: Non-specific T waves: T waves: non-specific after 03/14/2019 Insurance Payer Benefit Plan / Subscriber ID Effective Dates Phone Addre ss Type Group [employer] EXCHANGE BLUE ADVANTAGE [id number] 2019-Present Exchange HMO EXCH Advance Directives For more information, please contact: [phone] Type Date Recorded Patient Zone Supervisor Firearms Explanati on Advance Directives, Living Will 01/12/2018 10:27 PM and Medical Power of Descriptive Catalog Librarian Code Status Date Activated Date Inactivated Comments Full Code 07/27/2019 6:15 AM 07/28/2019 4:45 PM Code Status decision reached by: Patient
--- OUTSIDE RECORDS SUMMARY | 2020-03-15 02:07 | XMS REPORT | Continuity of Care Document ---
:1980 Author Organization [facility] t Address [address] [place] [address] Care Team Providers Name Role Phone Jones ADLER, Jone Primary Care Physician Jone Goldman MD Attending Clinician Zoey ADLER Attending Clinician SANDRA Attending Clinician Unavailable Herman EMMANUEL Attending Clinician Unavailable Rio Pickens MD Attending Clinician Zachary Queen MD Attending Clinician Rodriguez ADLER Attending Clinician Anmol ADLER, Wilberto Attending Clinician BERNICE Admitting Clinician Unavailable Payers Payer Name Policy Type Policy Effective Date Expiration Date Sour ce Number BCBS EXCHANGEBLUE [id number] 2019 [place] ADVANTAGE HMO 00:00:00 [facility] [id number]/ 06/2019-PresentExch estee Problems Condition Condition Condition Status Onset Resolution Last Treating Co mments Source Name Details Category Date Date Treatment Clinician Date Laceration Laceration Disease Active [place] right of right 2-20 Method i little little 00:00: st finger finger 00 without without foreign foreign body body without without damage to damage to nail nail Injury of Injury of Disease Active Evan stocelina finger of finger of 2-20 Meth bella right hand right hand 00:00: st 00 Type 2 Type 2 Disease Active [place] diabetes diabetes 2-20 Method i mellitus mellitus 00:00: st with with 00 hyperglyce hyperglyce juan r, with juan r, with long-term long-term current current use of use of insulin insulin Laceration Laceration Disease Active [place] of right of right 2-19 Method i little little 00:00: st finger finger 00 without without foreign foreign body body without without damage to damage to nail nail Cough Cough Disease Active 2013-06 [place] 07-17 Health 00:00: 00 Allergies, Adverse Reactions, Alerts This patient has no known allergies or adverse reactions. Social History Social Habit Start Date Stop Date Quantity Comments Source History of tobacco Cigarette Smoker [place] use [facility] Sex Assigned At [place] He alth Cigarettes smoked 2019-08-01 2019-08-01 [place] current (pack per 00:00:00 00:00:00 Methodi ) - Reported Tobacco use and 2019-08-01 2019-08-01 Never used [place] exposure 00:00:00 00:00:00 [facility] Alcohol intake 2019-08-01 2019-08-01 Current drinker [place] 00:00:00 00:00:00 of alcohol [facility] (finding) Smoking Status Start Date Stop Date Source Current every day smoker 2019-08-01 00:00:00 Evan Escamilla Medications Ordered Filled Start Stop Current Ordering Indication Dosage Frequency Signature Comments Components Source Medication Medication Date Date Medication? Clinician (SIG) Name Name aspirin 81 2019-0 2020- No 81mg QD Chew 1 [place] mg chewable 2-21 03-22 tablet (81 M ethodi tablet 00:00: 23:59 mg total) st 00 :00 daily for 30 days. insulin 2020-0 Yes 10U Inject 10 [place] ASPART 2-20 Units Methodi (NovoLOG) 12:45: under the st 100 unit/mL 23 skin. insulin pen insulin 2020-0 Yes 30U QD Inject 30 [place] GLARGINE 2-20 Units Methodi (LANTUS) 12:45: under the st 100 unit/mL 23 skin injection daily. (vial) metoprolol 2019-0 Yes 25mg QD Take 25 mg [place] tartrate 2-20 by mouth [facility] (LOPRESSOR) 12:45: daily. st 25 mg 23 tablet flash 2020-0 Yes 1{packa QD 1 Package [place] glucose 2-20 ge} daily. [facility] scanning 00:00: st reader 00 (FREESTYLE RUPA 14 DAY READER) misc flash 2020-0 Yes 6{packa QD 6 Packages [place] glucose 2-20 ge} daily. [facility] sensor 00:00: st (FREESTYLE 00 RUPA 14 DAY SENSOR) kit ondansetron 2019-0 2020- No 4mg Q8H Take 1 [place] (ZOFRAN) 4 07-28- tablet (4 Met hodi MG tablet 00:00: 23:59 mg total) st 00 :00 by mouth every 8 (eight) hours as needed for nausea or vomiting for up to 30 days. cephalexin 2019-0 2020- No 500mg Q.25D Take 1 [place] (KEFLEX) 07-28- capsule Methodi 500 MG 00:00: 23:59 ([address] capsule 00 :00 total) by mouth 4 (four) times a day for 7 days. cephalexin 2019-0 2020- No 500mg Q.25D Take 1 [place] (KEFLEX) 07-27- capsule Methodi 500 MG 00:00: 23:59 ([address] capsule 00 :00 total) by mouth 4 (four) times a day for 7 days. HYDROcodone 2019-0 2020- No acute pain 1{tbl} Q6H Take 1 Jones -acetaminop 07-27 tablet by Me bri marrero (NORCO) 00:00: 23:[address] 5-325 mg 00 :00 every 6 per tablet (six) hours as needed for moderate pain for up to 4 days .acute pain. Max Daily Amount: 4 tablets ondansetron 2019-0 2020- No 4mg Q8H Take 1 [place] (ZOFRAN) 4 07-27- tablet (4 Met hodi MG tablet 00:00: 23:59 mg total) st 00 :00 by mouth every 8 (eight) hours as needed for nausea or vomiting for up to 4 days. zolpidem Yes 10mg QD Take 10 mg [place] (AMBIEN) 5 2-12 by mouth Metho di MG tablet 00:00: nightly as st 00 needed for sleep. clonAZEPAM 2017-0 Yes .5mg Q.5D Take 0.5 [place] (KlonoPIN) 1-11 mg by Methodi 0.5 MG 00:00: mouth 2 st tablet 00 (two) times a day as needed for anxiety. acetaminoph 2013-06 Yes Abscess 1{tbl} Take 1 [place] en-codeine 2-22 tablet by [facility] (TYLENOL/CO 00:00: mouth DEINE #3) 00 every 4 300-30 mg hours as per tablet needed for Pain. ibuprofen 2013-06 Yes Cellulitis 400mg Take 1 [place] (MOTRIN) 2-10 tablet by [facility] 400 mg 00:00: mouth tablet 00 every 6 hours as needed for Pain. hydrochloro 2013-06 Yes 12.5mg Take 12.5 [place] thiazide 2-09 mg by [facility] 12.5 mg 23:14: mouth capsule 58 every morning. insulin 2013-06 Yes Inject Shekhar glargine 2-09 under the [facility] (LANTUS 23:14: skin once. SOLOSTAR) 58 100 unit/mL (3 mL) InPn insulin 2013-06 Yes Inject [place] aspart 2-09 under the [facility] (NOVOLOG) 23:14: skin 3 100 unit/mL 58 times injection daily. Vital Signs Vital Name Observation Time Observation Value Comments Source Body height 2019-08-01 11:24:00 170.2 cm Robert Escamilla Body weight 2019-08-01 11:24:00 77.111 kg Robert Escamilla BMI 2019-08-01 11:24:00 26.63 kg/m2 Robert Escamilla Systolic blood 2019-07-28 10:42:28 129 mm[Hg] Rikyto n Baptism pressure Diastolic blood 2019-07-28 10:42:28 69 mm[Hg] [place] Baptism pressure Heart rate 2019-07-28 10:42:28 87 /min Robert Escamilla Body temperature 2019-07-28 10:42:28 36.72 Sabrina [place] [facility] Respiratory rate 2019-07-28 10:42:28 14 /min [place] [facility] Oxygen saturation in 2019-07-28 10:42:28 100 /min Robert Escamilla Arterial blood by Pulse oximetry Procedures Procedure Date / Time Performing Clinician Source Performed POC GLUCOSE 2019-07-28 11:42:00 Robert Queendy POC GLUCOSE 2019-07-28 06:00:00 SaadsunanabelRobert HC COMPLETE BLD COUNT 2019-07-28 05:06:00 Dougie Queen [facility] POC GLUCOSE 2019-07-27 13:34:00 BerniceRobert Sharma IL AN ELECTIVE 2019-07-27 10:10:13 Gucci Frias odist ENDOTRACHEAL AIRWAY REPAIR, NERVE, DIGITAL, 2019-07-27 09:46:00 Navin Sullivan HAND Ayaz POC GLUCOSE 2019-07-27 08:17:00 BerniceRobert ECG 12-LEAD 2019-07-27 08:01:17 Navin Sullivan Met hodist Ayaz HCG QUALITATIVE, SERUM 2019-07-27 04:25:00 Navin Sullivan SCREEN Ayaz ORTHOPEDIC INJURY 2019-07-27 02:58:22 Navin Sullivan M ethodist TREATMENT Ayaz XR HAND 3+ VW RIGHT 2019-07-27 00:37:36 Nicolas Pickens Rio PROTHROMBIN TIME WITH INR 2019-07-27 00:36:00 Nicolas Pickens Rio PARTIAL THROMBOPLASTIN 2019-07-27 00:36:00 Nicolas Pickens TIME (PTT) Rio COMPREHENSIVE METABOLIC 2019-07-27 00:36:00 Nicolas Pickens PANEL Rio TYPE AND SCREEN 2019-07-27 00:36:00 Nicolas Pickens Me thodist Rio ESTIMATED GFR 2019-07-27 00:36:00 Provider, Kailey Jones Ma bernieodist HC COMPLETE BLD COUNT 2019-07-27 00:30:00 Nicolas Pickens W/AUTO DIFF Rio LACERATION REPAIR 2019-07-26 23:42:20 Nicolas Pickens Rio IL CRITICAL CARE, E/M 2019-07-26 23:42:20 Nicolas Pickens 30-74 MINUTES Rio POC GLUCOSE 2019-07-25 20:52:00 Tony Chang ethodist ECG 12-LEAD 2019-07-25 20:07:52 Tony Chang ethodist HC COMPLETE BLD COUNT 2019-07-25 20:04:00 Tony Chang yany Baptism W/AUTO DIFF COMPREHENSIVE METABOLIC 2019-07-25 20:04:00 Tony Chang scott [facility] PANEL VENOUS BLOOD GAS 2019-07-25 20:04:00 Tony Chang [facility]ism LIPASE LEVEL 2019-07-25 20:04:00 Tony Chang ethodist TROPONIN 2019-07-25 20:04:00 Tony Chang ethodist ESTIMATED GFR 2019-07-25 20:04:00 Tony Chang ethodist XR ELBOW 3+ VW RIGHT 2019-07-25 19:46:40 Tony Chang raj [facility]ism XR CHEST 1 VW PORTABLE 2019-07-25 19:40:36 Tony Chang [place] [facility] ECG ED PRELIMINARY 2019-07-25 19:26:14 Tony Chang Dougie patrick Baptism INTERPRETATION POC GLUCOSE 2019-07-25 19:10:00 Tony Chang ethodist Plan of Care Planned Activity Planned Date Details Comments Source Future Scheduled 2020-03-08 IMM Influenza Seasonal [facility] Test 00:00:00 Mar to August (>/= 19 yrs) [code = IMM Influenza Seasonal Mar to August (>/= 19 yrs)] Future Scheduled 2020-01-07 INFLUENZA VACCINE [place] [facility] Test 00:00:00 [code = INFLUENZA VACCINE] Future Scheduled 2018 Breast Cancer Scrn [facility] Test 00:00:00 (Yearly) [code = Breast Cancer Scrn (Yearly)] Future Scheduled 1999-08-08 Screening for Robert Keen thodist Test 00:00:00 malignant neoplasm of cervix (procedure) [code = 109509898] Future Scheduled 1999-08-08 Screening for Shekhar Alvarez lt Test 00:00:00 malignant neoplasm of cervix (procedure) [code = 514672787] Future Scheduled 1988 DIABETIC FOOT EXAM [place] [facility] Test 00:00:00 [code = DIABETIC FOOT EXAM] Future Scheduled 1988 URINE MICROALBUMIN [place] [facility] Test 00:00:00 [code = URINE MICROALBUMIN] Future Scheduled 1978 DIABETIC RETINAL EYE [place] [facility] Test 00:00:00 EXAM [code = DIABETIC RETINAL EYE EXAM] Encounters Start End Encounter Admission Attending Care Care Encounter Source Date/Time Date/Time Type Type Clinicians Facility Department ID 2020-02-20 2020-02-20 NANCY Yip [id number] 00:00:00 00:00:00 Kehsawn PENA 350.1.13.10 [facility] 4.2.7.2.686 PEDIATRIC [id number] [facility] 2020-02-20 2020-02-20 NANCY Astorga [id number] 00:00:00 00:00:00 Wu SPECIALTY 350.1.13.10 [facility] 4.2.7.2.686 CENTER AT [id number] [address] 2020-02-19 2020-02-19 Jasper Goldman WYGREGORY [id number] 00:00:00 00:00:00 Keshawn PENA 350.1.13.10 [facility] 4.2.7.2.686 PEDIATRIC [id number] [facility] 2020-01-19 2020-01-19 Jasper Goldman WYGREGORY [id number] 00:00:00 00:00:00 Keshawn PENA 350.1.13.10 [facility] 4.2.7.2.686 PEDIATRIC [id number] [facility] 2019-08-04 2019-08-04 [id number] [place] 00:00:00 00:00:[address] NAVIN [address] 2019-08-01 2019-08-01 [id number] [place] 00:00:00 00:00:[address] NAVIN [address] 2019-07-26 2019-07-28 [facility] [id number] [place] 00:00:00 00:00:00 DANIKA [address] 2019-07-25 2019-07-25 Emergency ANMOL, [facility] [id number] [place] 00:00:00 00:00:00 TONY [address] Results Test Description Test Time Test Comments Results Result Comments Source POC glucose 2019-07-28 11:43:54 Test Item Value Reference Range Interpretation Comme nts POC glucose (test code = 70 mg/dL 65-99 Ope rator Name: Reynaldo Murphy [id number]) ID: [id number] [place] [facility] with platelet and [id number] 05:26:58 Test Item Value Reference Range Interpretation Comments WBC (test code = 84954-5) 7.28 4.50- 11.00 k/uL RBC (test code = 10751-2) 3.71 m/uL 4.2-5.5 L HGB (test code = 718-7) 11.0 g/dL 12-16 L HCT (test code = 4544-3) 33.4 % 37-47 L MCV (test code = 787-2) 90.0 fL 82-100 MCH (test code = 785-6) 29.6 pg 27-34 MCHC (test code = 786-4) 32.9 g/dL 31-37 RDW - SD (test code = 40426-3) 39.2 fL 37-55 MPV (test code = 61954-9) 11.1 fL 8.8-13.2 Platelet count (test code = 245 150- 400 k/uL 95719-9) Nucleated RBC (test code = 0.00 /100 WBC 29116-7) Neutrophils (test code = 94031-6) 64.8 % 39-69 Lymphocytes (test code = 76284-8) 26.9 % 25-45 Monocytes (test code = 85406-9) 7.6 % 0-10 Eosinophils (test code = 60136-0) 0.1 % 0-5 Basophils (test code = 27739-6) 0.3 % 0-1 Lab Interpretation (test code = Abnormal 12118-4) [place] [facility] 12 [id number] 10:56:02 Test Item Value Reference Range Interpretation Comments Ventricular rate (test 82 code = 253) Atrial rate (test code 82 = 255) IL interval (test code 120 = 266) QRSD interval (test 92 code = 260) QT interval (test code 404 = 264) QTC interval (test code 472 = 265) P axis 1 (test code = 54 267) QRS axis 1 (test code = 84 268) T wave axis (test code 51 = 270) EKG impression (test Normal sinus code = 273) rhythm-Normal ECG-In automated comparison with ECG of 25-JUL-2019 20:07,-No significant change was found- Robert [id number] 10:10:13Gucci Frias MD 07/27/2019 10:11 AMAirwayDate/Time: 07/27/2019 9:51 AMPerformed by: Gucci Frias MDAuthorized by: Gucci Frias MD Location: ORUrgency: ElectiveDifficult Airway: No Anesthesiologist: Gucci Frias MDPreoxygenated with 100% O2: Yes C-spine Precautions Maintained Throughout: Yes Mask Ventilation: Easy maskFinal Airway Type: Endotracheal airwayFinal Endotracheal Airway: ETTCuffed: YesTechnique Used: Direct laryngoscopyDevices/Methods Used in Placement: Intubating styletInsertion Site: OralBlade Type: MillerLaryngoscope Blade/Videolaryngoscope Blade Size: 2ETT Size (mm): 7.0Cuff at minimum occlusion pressure: Yes Measured from: LipsETT to Lips (cm): 20Placement Verified by: CO2 detection, direct visualization and equal breath sounds Laryngoscopic view: Grade IIa - partial view of glottisRapid Sequence Induction (RSI): No Modified RSI: No Number of Attempts at Approach: 1[place] [facility] hCG qualitative, serum [id number] 04:46:47 Test Item Value Reference Range Interpretation Comments hCG qualitative, serum (test code = Negative 8-8) Jones MethodistOrthopedic Injury [id number] 02:58:22Navin Sullivan MD 07/27/2019 3:00 AMOrthopedic Injury TreatmentPerformed by: Navin Sullivan MDAuthorized by: Navin Sullivan MD Injury: Injury location: FingerPost-procedure assessment: Neurological function: diminished Distal perfusion: diminished Range of motion: unchanged Patient tolerance of procedure: Tolerated well, no immediate complicationsComments: The right hand was prepped and draped in a sterile fashion. A digital block was performed using 1% lidocaine without epinephrine. The wound was explored and there appeared to be bleeding of the radial digital nerve of the small finger. The wound was thoroughly irrigated using normal saline andhemostasis was achieved with pressure. And the wound was closed with 4-0 nylon. It was covered with Xeroform 4 x 4's Iris and Coban. The cap refill was less than 2 seconds at the end of the procedure. The patient tolerated the procedure well.Jones MethodistType and [id number] 01:42:00 Test Item Value Reference Range Interpretation Comments ABO grouping (test code = 883-9) A Rh type (test code = 56716-0) POS Antibody screen (gel) (test code = NEG 890-4) [place] MethodistComprehensive metabolic [id number] 01:12:22 Test Item Value Reference Range Interpretation Comments Sodium (test code = 136 135- 148 mEq/L 2951-2) Potassium (test code = 4.2 3.5- 5.0 mEq/L 2823-3) Chloride (test code = 100 98- 112 mEq/L 2075-0) CO2 (test code = 8-9) 25 24- 31 mEq/L Anion gap (test code = 11@ANIO 7- 15 mEq/L 35483-3) BUN (test code = 3094-0) 13 mg/dL 6-20 Creatinine (test code = 0.70 mg/dL 0.5-0.9 2160-0) Glucose (test code = 198 mg/dL 65-99 H 2345-7) Calcium (test code = 9.5 mg/dL 8.3-10.2 23405-7) Protein (test code = 7.1 g/dL 6.3-8.3 Malcolm 9994.6-7.0 2885-2) g/dL1 yydy9363.4-7.6 g/dL7 months-9yxfi352 .1- 7.3 g/dL1-2 irwuj894.6-7.5 g/dL>3 iooqt290.0-8.0 g/fL34-2340409. 3-8 .3 g/dL Albumin (test code = 4.2 g/dL 3.5-5 1751-7) A/G ratio (test code = 1.4 0.7-3.8 1759-0) Alkaline phosphatase 111 U/L 35-104 H (test code = 6768-6) AST (test code = 1920-8) 23 U/L 10-35 ALT (test code = 1742-6) 16 U/L 5-50 Total bilirubin (test 0.3 mg/dL 0-1.2 code = 1974-2) Lab Interpretation (test Abnormal code = 78294-7) Robert MethodistEstimated [id number] 01:12:21 Test Item Value Reference Range Interpretation Comments Estimated GFR (test >=90 mL/min/1.73 m2 Caterg ory Units code = 5488) InterpretationG 1 >=90 Normal or highG2 60-89 Mildly quvtgngieE9r 45-59 Mildly to mode rately hhptpjkofQ4d 30-44 Moderately to severely decreasedG4 15-29 Severely decre asedG5 <15 Kidn ey failureThe eGFR was calculated usin g the Chronic Kidney Disease Epidemiology Co llaboration (CKD-EPI) equat ion. Interpretation is based on recommendations of the National Kidney Foundation-Kidn ey Disease Outcomes Qualit y Initiative (NKF-KDOQI) pub lished in 2014. Robert MethodistProthrombin time with [id number] 01:03:03 Test Item Value Reference Range Interpretation Comments Prothrombin time (test 14.1 11.5- 14.5 sec code = 5902-2) INR (test code = 1.1 The Interna tional 84539-0) Normalized Rati o (INR) is a therapeutic m onitoring tool for patien ts who are stable on oral anticoagulant t herapy. An INR of 2.0-3.0 is suggested for d eep vein thrombosis/pulm onary embolism. Robert MethodistPartial thromboplastin time, [id number] 01:03:03 Test Item Value Reference Range Interpretation Comments PTT (test code = 31.6 23.0- 36.0 [place] [address]-9) unfractionated heparin is61.0-112.0 se conds which corresponds to Anti-Xa0.3-0.7 U/ml. Robert MethodistXR Hand 3+ Vw [id number] 00:38:51Hm Interface, Radiology Results 07/27/2019 12:41 AM CSTEXAMINATION: XR HAND 3 VW RIGHTCL INICAL HISTORY: pink finger lacreationCOMPARISON: None.IMPRESSION:No evidence of acute right hand fracture or dislocation. Bandages/gauze overlie fifth digit. Otherwise, no radiopaque foreign bodies.[facility]-[id number] MethodistLaceration [id number] 23:42:20Nicolas Pickens MD 07/27/2019 3:30 AMLaceration RepairPerformed by: Nicolas Pickens MDAuthorized by: Nicolas Pickens MD Consent: Consent obtained: Verbal Consent given by: Patient Risks discussed: Pain, poor cosmetic result, infection, poor wound healing, need for additional repair, nerve damage, vascular damage, tendon damage and retained foreign body Alternatives discussed: Delayed treatment and no treatmentUniversal protocol: Procedure explained and questions answered to patient or proxy's satisfaction: yes Relevant documents present and verified: yes Test results available and properly labeled: yes Required blood products, implants, devices, andspecial equipment available: yes Patient identity confirmed: Verbally with patient and arm bandAnesthesia (see MAR for exact dosages): Anesthesia method: Nerve block Block anesthetic: Lidocaine 1% w/o epiLaceration details: Location: Finger Finger location: R small finger Length (cm): 3 Depth (mm): 2Repair type: Repair type: SimplePre-procedure details: Preparation: Patient was prepped and draped in usual sterile fashion and imaging obtained to evaluate for foreign bodiesExploration: Hemostasis achieved with: Direct pressure and tourniquet Wound exploration: wound explore d through full range of motion and entire depth of wound probed and visualized Wound extent: fascia violated and vascular damage Wound extent: no foreign bodies/material noted, no tendon damage noted, no underlying fracture noted and no amputation Contaminated: no Treatment: Area cleansed with: Saline and Betadine Amount of cleaning: Extensive Irrigation solution: Sterile water Irrigation volume: 500 mL Irrigation method: Pressure wash Visualized foreign bodies/material removed: no Mucous membrane repair: Suture size: 4-0 Suture material: Vicryl Suture technique: Simple interrupted Number of sutures: 2Approximation: Approximation: Close Vermilion border: well-ali gned Post-procedure details: Dressing: Packing and adhesive bandage Patient tolerance of procedure: Tolerated well, no immediate complicationsComments: Bleeding did continue. Direct pressure was applied.[facility] [id number] 23:42:20Nicolas Pickens MD 07/27/2019 3:30 AMCritical CarePerformed by: Nicolas Pickens MDAuthorized by: Nicolas Pickens MD Critical care provider statement: Critical care time (minutes): 35 Critical care time was exclusive of: Separately billable procedures and treating other patients Critical care was necessary to treat or prevent imminent or life-threatening deterioration of the following conditions: Trauma Critical care was time spent personally by me on the following activities: Development of treatment plan with patient or surrogate, evaluation of patient's response to treatment, examination of patient, obtaining history from patient or surrogate, re-evaluation of patient's condition, pulse oximetry, ordering and review of radiographic studies, ordering and review of laboratory studies, ordering and performing treatments and interventions, discussions with cons ultants, interpretation of cardiac output measurements and review of old charts Mickey 'yes' if you are taking over critical care for this patient from another provider.: Sharon [id number] 20:33:17 Test Item Value Reference Range Interpretation Comments Troponin (test code = <0.006 0-0.04 [place] [address]-6) having a myocar dial infarction, milagros ng with all other appro priate clinical measur es and actions includi ng ECG and other diagnosti cs as appropriate, me asure Ultra TnI at 0 hrs and at 3 hrs.Myocardia l infarction VERY LIKELYThe 0 hr TnI level is > 0.10 ng/mL --Myocardial in farction LIKELYThe 0 hr TnI level is > 0.04 ng/mL and 3 hr level is increa sed or decreased by at least 0.020 ng/mL -------Jeffry cardial infarct ion VERY UNLIKELYBoth th e 0 hr and 3 hr TnI levels <= 0.04 ng/mL(within no rmal limits) OR 0 hr is > 0.04 ng/mL and 3 hr is increased OR de creased by less than 0.020 ng/mL [place] MethodistLipase [id number] 20:26:22 Test Item Value Reference Range Interpretation Comments Lipase (test code = 3040-3) 10 U/L 13-60 L Lab Interpretation (test code = Abnormal 77637-7) [place] MethodistVenous blood [id number] 20:10:21 Test Item Value Reference Range Interpretation Comments pH, venous (test code = 2746-6) 7.38 7.32-7.42 pCO2, venous (test code = 2020-4) 50 45- 51 mmHg pO2, venous (test code = 2705-2) 33 25- 40 mmHg Base excess, venous (test code = 3 meq/L -2-2 H 1927-3) O2 saturation, venous (test code 35 % 40-70 L = 2711-0) Bicarbonate, venous (test code = 25.4 mmol/L 21-28 43361-0) FiO2, inspired O2% (test code = Unknown % 1389) Lab Interpretation (test code = Abnormal 33910-2) [place] MethodistXR Elbow 3+ Vw [id number] 19:49:00Hm Interface, Radiology Results Incoming - 07/25/2019 7:52 PM CSTEXAMINATION: XR ELBOW 3 VW RIGHTCL INICAL HISTORY: Elbow pain initial examCOMPARISON: None available.IMPRESSION: 1. Approximately ageand gender appropriate mineralization of the osseous structures. 2. Normal alignment of the right elbow without acute fracture or dislocation.3. The elbow fat pads are preserved.[facility]-[id number] Baptism XR Chest 1 Vw [id number] 19:42:11Hm Interface, Radiology Results 07/25/2019 7:45 PM CSTEXAMINATION: XR CHEST 1 VW PORTABLECLINICAL HISTORY: SOBCOMPARISON: NoneIMPRESSION:1.The heart and pulmonary vasculature are within normal limits.2.No consolidation or pleural effusion is demonstrated.3.There is no acute osseous pathology.[facility]-[id number] MethodistEC ED Preliminary Interpretation - Not an [id number] 19:26:14 Tony Chang MD 07/25/2019 8:57 [facility] Preliminary Interpretation - Not an OrderPerformed by: Tony Chang MDAuthorized by: Tony Chang MD Rate: ECG rate: 94 ECG rate assessment: normal Rhythm: Rhythm: sinus rhythm Ectopy: Ectopy: none QRS: QRS axis: Normal QRS intervals: NormalST segments: ST segments: Non-specificT waves: T waves: non-specific Robert Escamilla
--- OUTSIDE RECORDS SUMMARY | 2020-03-15 02:08 | XMS REPORT | Summary of Care ---
:1980 Author Organization [facility] - Health Address [address] [place] [address] Care Team Providers Name Role Phone Keshawn Goldman MD Primary Care Provider [phone] Reason for Visit Reason Comments Refill Request Encounter Details Date Type Department Care Team Description 12/19/2019 Refill [facility] Adult Ethel Goldman Refill Request Primary [place] MD Joen [address] [facility], [address] [facility] [place], [place] [phone] [place] [address] Allergies Active Allergy Reactions Severity Noted Date Comments Buspirone Hcl Hallucinations High 05/27/2019 Divalproex Sodium Hallucinations High 05/26/2019 documented as of this encounter (statuses as of 12/19/2019) Medications Medication Sig Dispensed Refills Start End Date Status Date Blood-Glucose Meter Use as 1 Each 0 Active (CONTOUR METER) directed 8 Misc flash glucose 1 Each daily. 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 Dx Uncontrolled 11.8, E 16.2, diabetes mellitus K 86.89 secondary to pancreatic insufficiency CONTOUR NEXT TEST Use to check 400 Strip 1 Active STRIPS glucose 4X 9 stripIndications: daily. Uncontrolled DX:E08.65 diabetes mellitus secondary to pancreatic insufficiency clonazePAM 0.5 mg Take 1 tablet 60 tablet 0 Active disintegrating by mouth 2 0 tabletIndications: (two) times Anxiety daily as needed for Anxiety. insulin aspart 160 to 200, 1 1 Box 6 A ctive U-100 (NOVOLOG u, 201 to 0 FLEXPEN U-100 240, 2 u. BG INSULIN) 100 241 to 280, 3 unit/mL (3 mL) unit. BG 281 injectionIndication to 300, 4 s: Type 1 diabetes units. BG > mellitus without 300, 5 units, complication recheck in 3 hours and cover with s/s metoprolol Take 1 tablet 90 tablet 1 Activ e succinate XL 50 mg by mouth 0 24 hr daily. tabletIndications: Essential hypertension escitalopram Take 1 tablet 30 tablet 1 Act wolf oxalate 5 mg by mouth 0 tabletIndications: daily. Bipolar I disorder, most recent episode depressed, in partial remission, ENRICO (generalized anxiety disorder) Quetiapine Take 2 60 tablet 1 Active (SEROQUEL XR) 50 mg tablets by 0 tabletIndications: mouth at Bipolar I disorder, bedtime. 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 chronic pancreatitis CLONAZEPAM 0.5 mg Take 1 tablet 60 tablet 0 Active tabletIndications: by mouth 2 0 ENRICO (generalized (two) times anxiety disorder) daily as needed (anxiety). omeprazole 40 mg Take 1 30 capsule 4 Ac tive capsule capsule by 0 mouth daily. Insulin Use to inject 400 Syringe 1 Acti ve Syringe-Needle insulin 4X 0 U-100 1 mL 31 gauge daily. x 10/21 Syrg DX:K86.89 insulin glargine inject 34 10 mL 3 Act wolf (LANTUS U-100 Units under 0 INSULIN) 100 the skin unit/mL daily. injectionIndication s: Type 1 diabetes mellitus without complication clonazePAM 0.5 mg Take 1 tablet 60 tablet 0 Active tabletIndications: by mouth 2 0 ENRICO (generalized (two) times anxiety disorder) daily as needed (anxiety). clonazePAM 0.5 mg Take 1 tablet 60 tablet 0 12/19/19 Discontinued tabletIndications: by mouth 2 0 20 (Reorder) ENRICO (generalized (two) times anxiety disorder) daily as needed (anxiety). documented as of this encounter (statuses as of 12/19/2019) Active Problems Problem Noted Date Drug-seeking behavior 04/12/2014 Diabetes mellitus 04/12/2014 Chronic pancreatitis 04/11/2014 Necrotizing pancreatitis 10/12/2013 Pancreatitis 10/11/2013 Agoraphobia Anxiety Depression EtOH dependence H/O opioid abuse documented as of this encounter (statuses as of 12/19/2019) Immunizations Name Administration Dates Next Due Influenza Virus Vaccine (3+ yrs) 04/22/2013 Influenza Virus Vaccine Quad .5 mL IM 6+ MO 04/12/2018 Influenza Virus Vaccine Quad IM 3+ YRS 04/12/2014 Pneumococcal Polysaccharide, PPSV23 (PNEUMOVAX) 04/22/2013 documented as of this encounter Social History Tobacco Use Types Packs/Day Years Used Date Current Every Day Smoker 0.5 22 Smokeless Tobacco: Never Used Alcohol Use Drinks/Week oz/Week Comments Yes 1 glass or wine a month Sex Assigned at Date Recorded Not on file Job Start Date Occupation Industry Not on file Not on file Not on file Travel History Travel Start Travel End No recent travel history available. documented as of this encounter Last Filed Vital Signs Not on filedocumented in this encounter Plan of Treatment Health Maintenance Due Date Last Done Comments EYE EXAM 1988 DTaP,Tdap,and Td Vaccines (1 - 1989 Tdap) FOOT EXAM 1996 PAP SMEAR 08/08/1999 URINE MICROALBUMIN 02/02/2015 02/02/2014 Breast Cancer Screening 2018 (MAMMOGRAM) HgA1C 02/20/2019 08/20/2018, 01/11/2018, 02/02/2014, Additional history exists CREATININE (SERUM) 10/22/2019 10/21/2018, 01/11/2018, 04/07/2017, Additional history exists LDL-C 10/22/2019 10/21/2018, 01/11/2018, 04/20/2013 INFLUENZA VACCINE (#1) 2020 04/12/2018, 04/12/2014, 04/22/2013 Depression Screening 09/14/2020 09/15/2019, 09/15/2019 PNEUMOCOCCAL 0-64 YEARS COMBINED Completed 04/22/2013 SERIES documented as of this encounter Goals Goal Patient Goal Associated Recent Patient-Stated? Author Type Problems Progress Quit using Tobacco Use No Levy, tobacco Daniel Johnson MA (cigarettes, smokeless, etc) documented as of this encounter Results Not on filedocumented in this encounter Visit Diagnoses Diagnosis ENRICO (generalized anxiety disorder) Generalized anxiety disorder documented in this encounter Additional Health Concerns Infection Onset Date Last Indicated Resolved Time Contact- MRSA 10/13/2013 10/13/2013 documented as of this encounter Insurance Payer Benefit Plan / Subscriber ID Effective Phone Address T ype Group Dates BCBS OF [facility] BCBS BLUE [id number] 2016-Pre [phone] O ANGEL X HMO ADVANTAGE HMO sent [phone] [place] [address] PEGGY WOODS [id number] 2018-Pre Beha vioral BEHAVIORAL BEHAVIORAL sent [facility] documented as of this encounter
--- OUTSIDE RECORDS SUMMARY | 2020-03-15 02:08 | XMS REPORT | Clinical Summary ---
:1980 Author Organization [facility] [employer] [facility] Address [address] [place] [address] Care Team Providers Name Role Phone Keshawn Goldman MD Primary Care Provider [phone] Allergies Active Allergy Reactions Severity Noted Date Comments Buspirone Hcl Hallucinations High 05/27/2019 Divalproex Sodium Hallucinations High 05/26/2019 Medications Medication Sig Dispensed Refills Start Date End Date Status Blood-Glucose Meter Use as directed 1 Each 0 01/19/2018 Active (CONTOUR METER) Misc flash glucose scanning 1 Each daily. 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 Dx Uncontrolled diabetes 11.8, E 16.2, K mellitus secondary to 86.89 pancreatic insufficiency CONTOUR NEXT TEST Use to check 400 Strip 1 11/05/2018 Active STRIPS glucose 4X stripIndications: daily. 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 insulin aspart U-100 160 to 200, 1 u, 1 Box 6 08/19/2019 Active (NOVOLOG FLEXPEN U-100 201 to 240, 2 u. INSULIN) 100 unit/mL BG 241 to 280, 3 (3 mL) unit. BG 281 to injectionIndications: 300, 4 units. BG Type 1 diabetes > 300, 5 units, mellitus without recheck in 3 complication hours and cover with s/s metoprolol succinate Take 1 tablet by 90 tablet 1 08/19/2019 Active XL 50 mg 24 hr mouth daily. tabletIndications: Essential hypertension Quetiapine (SEROQUEL Take 2 tablets 60 tablet 1 09/15/2019 Active XR) 50 mg by mouth at tabletIndications: bedtime. 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 Alcohol-induced chronic pancreatitis CLONAZEPAM 0.5 mg Take 1 tablet by 60 tablet 0 10/25/2019 Active tabletIndications: ENRICO mouth 2 (two) (generalized anxiety times daily as disorder) needed (anxiety). omeprazole 40 mg Take 1 capsule 30 capsule 4 10/25/2019 Active capsule by mouth daily. Insulin Syringe-Needle Use to inject 400 Syringe 1 12/09/2019 Active U-100 1 mL 31 gauge x insulin 4X 5/16 Syrg daily. DX:K86.89 insulin glargine inject 34 Units 10 mL 3 12/09/2019 Active (LANTUS U-100 INSULIN) under the skin 100 unit/mL daily. injectionIndications: Type 1 diabetes mellitus without complication clonazePAM 0.5 mg Take 1 tablet by 60 tablet 0 12/19/2019 Active tabletIndications: ENRICO mouth 2 (two) (generalized anxiety times daily as disorder) needed (anxiety). escitalopram oxalate 5 Take 1 tablet by 30 tablet 0 12/20/2019 Active mg tabletIndications: mouth daily. Bipolar I disorder, most recent episode depressed, in partial remission, ENRICO (generalized anxiety disorder) Active Problems Problem Noted Date Drug-seeking behavior 04/12/2014 Diabetes mellitus 04/12/2014 Chronic pancreatitis 04/11/2014 Necrotizing pancreatitis 10/12/2013 Pancreatitis 10/11/2013 Agoraphobia Anxiety Depression EtOH dependence H/O opioid abuse Encounters Date Type Specialty Care Team Description 12/19/2019 Refill Family Medicine Keshawn Goldman MD 12/09/2019 Refill Family Medicine Keshawn Goldman MD 11/24/2019 Orders Only Doctor Unassigned, [place] 11/22/2019 Refill Family Keshawn Velez MD 11/19/2019 Refill Family Keshawn Velez MD 11/16/2019 Telephone Gastroenterology Wu Greer, Medical Records 11/16/2019 Orders Only Doctor Unassigned, [place] 11/08/2019 Orders Only Doctor Unassigned, [place] 10/19/2019 Refill Family Keshawn Velez MD 10/19/2019 Refill Family Keshawn Velez MD 10/18/2019 Orders Only Doctor Unassigned, [place] 10/18/2019 Telephone Gastroenterology Wu Greer, Medicati on Assistance (Esomeprazole 4 0 mg capsule // Requ est for PA) 10/11/2019 Refill Family Keshawn Velez MD 10/11/2019 Refill Family Medicine Keshawn Goldman MD 10/06/2019 Telemedicine Visit Gastroenterology Flash, Gastr oesophageal reflux disease, esophagitis presence not specified (Primary Dx); Benoit Landry DO Alcohol-induced chronic pancreatitis; Wu Greer, Miguel Angel marie MD 09/20/2019 Orders Only Doctor Unassigned, [place] from Last 3 Months Immunizations Name Administration Dates Next Due Influenza Virus Vaccine (3+ yrs) 04/22/2013 Influenza Virus Vaccine Quad .5 mL IM 6+ MO 04/12/2018 Influenza Virus Vaccine Quad IM 3+ YRS 04/12/2014 Pneumococcal Polysaccharide, PPSV23 (PNEUMOVAX) 04/22/2013 Family History Medical History Relation Name Comments Hypertension Father Hypertension Mother Relation Name Status Comments Father Mother Social History Tobacco Use Types Packs/Day Years Used Date Current Every Day Smoker 0.5 22 Smokeless Tobacco: Never Used Tobacco Cessation: Ready to Quit: Yes Alcohol Use Drinks/Week oz/Week Comments Yes 1 glass or wine a month Sex Assigned at Date Recorded Not on file Job Start Date Occupation Industry Not on file Not on file Not on file Travel History Travel Start Travel End No recent travel history available. Last Filed Vital Signs Vital Sign Reading Time Taken Comments Blood Pressure 130/86 08/18/2019 1:14 PM CDT Pulse 108 08/18/2019 1:14 PM CDT Temperature 36.8 C (98.2 F) 08/18/2019 1:14 PM CDT Respiratory Rate 18 08/18/2019 1:14 PM CDT Oxygen Saturation 96% 08/18/2019 1:14 PM CDT Inhaled Oxygen Concentration - - Weight 79.3 kg (174 lb 14.4 oz) 08/18/2019 1:14 PM CDT Height 170.2 cm (5' 7") 08/11/2019 11:16 AM [employer]STER [employer]AM [employer] Body Mass Index 27.39 08/11/2019 11:16 AM [employer] Plan of Treatment Health Maintenance Due Date [...] PNEUMOCOCCAL 0-64 YEARS COMBINED Completed 04/22/2013 SERIES Goals Goal Patient Goal Associated Recent Patient-Stated? Author Type Problems Progress Quit using Tobacco Use No Levy, tobacco Daniel Johnson MA (cigarettes, smokeless, etc) Procedures Procedure Name Priority Date/Time Associated Diagnosis Comme nts EXTERNAL PROVIDER RECORDS Routine 11/24/2019 12:01 AM CDT EXTERNAL PROVIDER RECORDS Routine 11/16/2019 12:01 AM CDT INSURANCE CORRESPONDENCE Routine 11/08/2019 12:01 AM CDT INSURANCE CORRESPONDENCE Routine 10/20/2019 12:01 AM CDT INSURANCE CORRESPONDENCE Routine 10/18/2019 12:01 AM CDT MEDICATION CORRESPONDENCE Routine 09/20/2019 12:01 AM CDT from Last 3 Months Results EXTERNAL PROVIDER RECORDS (11/24/2019 12:01 AM CDT)Only the most recent of2 resultswithin the time period is included. Specimen Performing Organization Address City/State/Zipcode Phone Number HIM INSURANCE CORRESPONDENCE (11/08/2019 12:01 AM CDT)Only the most recent of3 resultswithin the time period is included. Specimen Performing Organization Address City/State/Zipcode Phone Number HIM MEDICATION CORRESPONDENCE (09/20/2019 12:01 AM CDT) Specimen Performing Organization Address City/State/Zipcode Phone Number HIM from Last 3 Months Additional Health Concerns Infection Onset Date Last Indicated Resolved Time Contact- MRSA 10/13/2013 10/13/2013 Insurance Payer Benefit Plan / Subscriber ID Effective Phone Address T ype Group Dates BCBS OF [place] HIM BCBS BLUE [id number] 2016-Pre [phone] O ANGEL X HMO ADVANTAGE HMO sent [phone] [place] [address] PEGGY WOODS [id number] 2018-Pre Beha vioral BEHAVIORAL BEHAVIORAL sent [facility] [phone] (Home) [place], [place] [address] [facility] Self 1980 [phone] (Home) [place], [place] [address]
--- OUTSIDE RECORDS SUMMARY | 2020-03-15 02:09 | XMS REPORT | Summary of Care ---
:1980 Author Organization [facility] Address [address] [place] [address] Care Team Providers Name Role Phone Keshawn Goldman MD Primary Care Provider Reason for Visit Reason Comments LAB Encounter Details Date Type Department Care Team Description 12/25/2019 Laboratory Only [facility] Unknown, Attending Leilani hendrickson for [facility] Urgent Care Nurse, Jon Urgent disease (Primary Dx) [address] 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 nuwpil-sllwsjyi-egcagh Take 1 capsule 250 capsule 3 10/06/2019 [...] in partial remission, ENRICO (generalized anxiety disorder) documented as of this encounter (statuses as of 12/25/2019) Active Problems Problem Noted Date Drug-seeking behavior 04/12/2014 Diabetes mellitus 04/12/2014 Chronic pancreatitis 04/11/2014 Necrotizing pancreatitis 10/12/2013 Pancreatitis 10/11/2013 Agoraphobia Anxiety Depression EtOH dependence H/O opioid abuse documented as of this encounter (statuses as of 12/25/2019) Immunizations Name Administration Dates Next Due Influenza [...] Travel End No recent travel history available. COVID-19 Exposure Response Date Recorded In the last month, have you been in contact with No / Unsure 12/25/2019 4:45 PM CDT someone who was confirmed or suspected to have Coronavirus / COVID-19? documented as of this encounter Last Filed Vital Signs Not on filedocumented in this encounter Plan of Treatment Name Type Priority Associated Diagnoses Order S chedule COVID-19 (PCR MOLECULAR LAB Routine Screening for vir al Expected: 12/25/2019, TESTING) disease Expires: 2020 Health Maintenance Due Date Last Done Comments [...] filedocumented in this encounter Visit Diagnoses Diagnosis Screening for viral disease - Primary Special screening examination for unspec ified viral disease documented in this encounter Additional Health Concerns Infection Onset Date Last Indicated Resolved Time Contact- MRSA 10/13/2013 10/13/2013 documented as of this encounter Insurance Payer Benefit Plan / Subscriber ID Effective Dates Phone Addre ss Type Group BCBS OF HIM BCBS BLUE [id number] 2016-Jp [phone] [address] [facility] t 7 [id number] [place] [address] documented as of this encounter
--- OUTSIDE RECORDS SUMMARY | 2020-03-15 02:09 | XMS REPORT | Clinical Summary ---
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 ojdshn-qzthmccp-fwkbym Take 1 capsule 250 capsule 3 10/06/2019 [...] Medicine Keshawn Goldman MD 12/09/2019 Refill Family Keshawn Velez MD 11/24/2019 Orders Only Doctor Unassigned, [place] 11/22/2019 Refill Family Keshawn Velez MD 11/19/2019 Refill Family Keshawn Velez MD 11/16/2019 Telephone Gastroenterology Wu Greer, Medical Records 11/16/2019 Orders Only Doctor Unassigned, [place] 11/08/2019 Orders Only Doctor Unassigned, [place] 10/19/2019 Refill Family Keshawn Velez MD 10/19/2019 Refill Family Keshawn Velez MD 10/18/2019 Orders Only Doctor Unassigned, [place] 10/18/2019 Telephone Gastroenterology Wu Greer, Medicati on Assistance (Esomeprazole 4 0 mg capsule // Requ est for PA) 10/11/2019 Refill Family Keshawn Velez MD 10/11/2019 Refill Family Medicine Keshawn Goldman MD 10/06/2019 Telemedicine Visit Gastroenterology Flash, Gastr oesophageal reflux disease, esophagitis presence not specified (Primary Dx); Benoit Landry, Alcohol-induced chronic pancreatitis; Wu Greer, Other shalini marie MD from Last 3 Months Immunizations Name Administration [...] 170.2 cm (5' 7") 08/11/2019 11:16 AM 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 Specimen Performing Organization Address City/State/Zipcode Phone Number HIM INSURANCE CORRESPONDENCE (11/08/2019 12:01 AM CDT)Only the most recent of3 resultswithin the time period is included. Specimen Performing Organization Address City/State/Zipcode Phone Number [facility] from Last 3 Months Additional Health Concerns Infection Onset Date Last Indicated Resolved Time Contact- MRSA 10/13/2013 10/13/2013 Insurance Payer Benefit Plan / Subscriber ID Effective Phone Address T ype Group Dates BCBS OF [facility] BCBS BLUE [id number] 2016-Pre [phone] O ANGEL X HMO ADVANTAGE HMO sent [phone] [place] [address] PEGGY WOODS [id number] 2018-Pre Beha vioral BEHAVIORAL BEHAVIORAL sent [facility] [phone] (Home) [place], [place] [address] [facility] Self 1980 [phone] (Home) [place], [place] [address]
--- OUTSIDE RECORDS SUMMARY | 2020-03-15 02:10 | XMS REPORT | Summary of Care ---
:1980 Author Organization [facility] Address [address] [place] [address] Care Team Providers Name Role Phone Keshawn Goldman MD Primary Care Provider [phone] Encounter Details Date Type Department Care Team Description 12/27/2019 Patient Secure Msg [facility] Health Pediatric & Ethel Goldman Adult Primary MD Jone [facility] [facility]. 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 DX:K86.89 insulin glargine inject 34 [...] as of this encounter (statuses as of 12/27/2019) Active Problems Problem Noted Date Drug-seeking behavior 04/12/2014 Diabetes mellitus 04/12/2014 Chronic pancreatitis 04/11/2014 Necrotizing pancreatitis 10/12/2013 Pancreatitis 10/11/2013 Agoraphobia Anxiety Depression EtOH dependence H/O opioid abuse documented as of this encounter (statuses as of 12/27/2019) Immunizations Name Administration Dates Next Due Influenza [...] Results Not on filedocumented in this encounter Additional Health Concerns Infection Onset Date Last Indicated Resolved Time Contact- MRSA 10/13/2013 10/13/2013 documented as of this encounter Insurance Payer Benefit Plan / Subscriber ID Effective Phone Address T ype Group Dates BCBS OF [facility] BCBS BLUE [id number] 2016-Pre [phone] O ANGEL X HMO ADVANTAGE HMO sent [phone] [place] [address] CASSIDYDENISELEIGHANN BENJAMINMARIUSZ [id number] 2018-Pre Beha vioral BEHAVIORAL BEHAVIORAL sent [facility] documented as of this encounter
--- OUTSIDE RECORDS SUMMARY | 2020-03-15 02:10 | XMS REPORT | Summary of Care ---
:1980 Author Organization [facility] Address [address] [place] [address] Care Team Providers Name Role Phone Keshawn Goldman MD Primary Care Provider [phone] Reason for Visit Reason Comments LAB Encounter Details Date Type Department Care Team Description 12/25/2019 Laboratory Only [facility] Unknown, Attending S madhavi for [facility] Nicolas Siddiqui MD [address] [place] [address] disease (Primary Dx) [address] [address] Nurse, [place] [phone] Allergies Active Allergy Reactions Severity Noted Date [...] recent episode depressed, in partial remission Insulin [place], Use as directed 100 Each 3 09/19/2019 Active Disposable, (NOVOFINE 32) 32 gauge x 1/4" NdleIndications: 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
--- OUTSIDE RECORDS SUMMARY | 2020-03-15 02:10 | XMS REPORT | Summary of Care ---
:1980 Author Organization [facility] Address [address] [place] [address] Care Team Providers Name Role Phone Keshawn Goldman MD Primary Care Provider [phone] Reason for Visit Reason Comments Results Encounter Details Date Type Department Care Team Description 12/30/2019 Telephone [facility] Urgent Care Nurse, Jon Urgent Results [address] [place] [address] Allergies Active Allergy Reactions Severity Noted Date Comments Buspirone Hcl Hallucinations High 05/27/2019 Divalproex Sodium Hallucinations High 05/26/2019 documented as of this encounter (statuses as of 12/30/2019) Medications Medication Sig Dispensed Refills Start Date [...] recent episode depressed, in partial remission Insulin [place], Use as directed 100 Each 3 09/19/2019 Active Disposable, (NOVOFINE 32) 32 gauge x 1/4" NdleIndications: Uncontrolled diabetes mellitus secondary to pancreatic insufficiency kzewpq-ngliwgry-wpdvyo Take 1 capsule 250 capsule 3 10/06/2019 [...] as of this encounter (statuses as of 12/30/2019) Active Problems Problem Noted Date Drug-seeking behavior 04/12/2014 Diabetes mellitus 04/12/2014 Chronic pancreatitis 04/11/2014 Necrotizing pancreatitis 10/12/2013 Pancreatitis 10/11/2013 Agoraphobia Anxiety Depression EtOH dependence H/O opioid abuse documented as of this encounter (statuses as of 12/30/2019) Immunizations Name Administration Dates Next Due Influenza [...] Effective Phone Address T ype Group Dates [facility] [id number] 2016-Pre [phone] O ANGEL X HMO ADVANTAGE HMO sent [phone] [place] [address] PEGGY WOODS [id number] 2018-Pre Beha vioral BEHAVIORAL BEHAVIORAL sent [facility] documented as of this encounter
--- OUTSIDE RECORDS SUMMARY | 2020-03-15 02:10 | XMS REPORT | Clinical Summary ---
:1980 Author Organization [facility] Address [address] [place] [address] Care Team Providers Name Role Phone Keshawn Goldman MD Primary Care Provider [phone] Allergies Active Allergy Reactions Severity Noted Date [...] recent episode depressed, in partial remission Insulin [place], Use as directed 100 Each 3 09/19/2019 Active Disposable, (NOVOFINE 32) 32 gauge x 1/4" NdleIndications: Uncontrolled diabetes mellitus secondary to pancreatic insufficiency bkgnqf-agtkgoeu-mvxsbt Take 1 capsule 250 capsule 3 10/06/2019 [...] anxiety times daily as disorder) needed (anxiety). ESCITALOPRAM OXALATE 5 TAKE ONE TABLET 30 tablet 0 01/16/2020 Active mg tabletIndications: BY MOUTH ONE Bipolar I disorder, TIME DAILY most recent episode depressed, in partial remission, ENRICO (generalized anxiety disorder) Active Problems Problem Noted Date Drug-seeking behavior 04/12/2014 Diabetes mellitus 04/12/2014 Chronic pancreatitis 04/11/2014 Necrotizing pancreatitis 10/12/2013 Pancreatitis 10/11/2013 Agoraphobia Anxiety Depression EtOH dependence H/O opioid abuse Encounters Date Type Specialty Care Team Description 12/30/2019 Telephone Family Medicine Nurse, Jon Urgent Results 12/27/2019 Patient Secure [facility] Family [facility] Keshawn Goldman MD 12/27/2019 Patient Secure [facility] OB Satellites Doctor Unassigned, [place] 12/25/2019 Laboratory Only Family Medicine Unknown, Screening for viral Attending disease (Primary Dx) Nicolas Siddiqui MD Nurse, Jon Urgent 12/25/2019 Travel 12/19/2019 Refill Family Medicine Keshawn Goldman MD 12/09/2019 Refill Family Medicine Keshawn Goldmanill Charmaine Becerril MD 11/24/2019 Orders Only Doctor Unassigned, [place] 11/22/2019 Refill Family Medicine Keshawn Goldman MD 11/19/2019 Refill Family Keshawn Velez MD 11/16/2019 Telephone Gastroenterology Wu Greer, Medical Records 11/16/2019 Orders Only Doctor Unassigned, [place] 11/08/2019 Orders Only Doctor Unassigned, [place] 10/19/2019 Refill Family Keshawn Velez MD 10/19/2019 Refill Family Keshawn Velez MD 10/18/2019 Orders Only Doctor Unassigned, [place] 10/18/2019 Telephone Gastroenterology Wu Greer, Medicati on Assistance (Esomeprazole 4 0 mg capsule // Requ est for PA) from Last 3 Months Immunizations Name Administration [...] Assigned at Date Recorded Not on file COVID-19 Exposure Response Date Recorded In the last month, have you been in contact with No / Unsure 12/25/2019 4:45 PM CDT someone who was confirmed or suspected to have Coronavirus / COVID-19? 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 EXTERNAL PROVIDER Routine 11/24/2019 12:01 RECORDS AM CDT EXTERNAL PROVIDER Routine 11/16/2019 12:01 RECORDS AM CDT INSURANCE Routine 11/08/2019 12:01 CORRESPONDENCE AM CDT INSURANCE Routine 10/20/2019 12:01 CORRESPONDENCE AM CDT INSURANCE Routine 10/18/2019 12:01 CORRESPONDENCE AM CDT from Last 3 Months Results COVID-19 (PCR MOLECULAR TESTING) (12/25/2019 4:52 PM CDT) Pathologist Sig nature SARS-CoV-2 PCR Not Detected Not Detected [facility] Specimen Swab - NASOPHARYNGEAL SWAB Narrative Performed At [employer] SARS-CoV-2 Assay is a nucleic acid [facility] amplification test intended for the qualitative detect ion of RNA from SARS-CoV-2 from nasopharyngeal (SENIOR MAJOR GIFTS OFFICER) specimens . It is used under Emergency Use Authorizatio n (EUA) by FDA. A positive result is indicative of the presence of SARS-CoV-2 RNA. Clinical correlation with patient hi story and other diagnostic information is necessary to deter mine patient infection status. A negative (Not Detected) result does not preclude SARS-CoV-2 infection. Clinical correlation with bianca ent history and other diagnostic information should be use d in patient management decisions. Invalid: Unable to generate a valid test result on thi s specimen. Please submit a new specimen for repeat te sting if clinically indicated. Performing Organization Address City/State/Zipcode Phone Number [facility] CLIA: [id number] [place] [address] [place] [address] EXTERNAL PROVIDER RECORDS (11/24/2019 12:01 AM CDT)Only [...] Effective Phone Address T ype Group Dates [facility] BCBS BLUE [id number] 2016-Pre [phone] O ANGEL X HMO ADVANTAGE HMO sent [phone] [place] [address] PEGGY WOODS [id number] 2018-Pre Beha vioral BEHAVIORAL BEHAVIORAL sent [facility] [phone]
--- OUTSIDE RECORDS SUMMARY | 2020-03-15 02:11 | XMS REPORT | Summary of Care ---
:[address] [facility] - Health Address [address] [place] [address] Care Team Providers Name Role Phone Keshawn Goldman MD Primary Care Provider [phone] Reason for Visit Reason Onset Date Comments Refill Request 01/19/2020 Encounter Details Date Type Department Care Team Description 01/19/2020 Refill [facility] Pediatric & Adult Ethel Goldman Refill Request Primary Care-[place] MD Jone [address] [facility], [address] [facility] [place], [place] [phone] [place] [address] Allergies Active Allergy Reactions Severity Noted Date Comments Buspirone Hcl Hallucinations High 05/27/2019 Divalproex Sodium Hallucinations High 05/26/2019 documented as of this encounter (statuses as of 01/20/2020) Medications Medication Sig Dispensed Refills Start End [...] 0 24 hr daily. tabletIndications: Essential hypertension Quetiapine Take 2 60 tablet 1 Active (SEROQUEL XR) 50 mg tablets by 0 tabletIndications: mouth at Bipolar I disorder, bedtime. most recent episode depressed, in partial remission Insulin [employer], Use as 100 Each 3 Act wolf Disposable, directed 0 (NOVOFINE 32) 32 gauge x 1/4" NdleIndications: Uncontrolled diabetes mellitus secondary to pancreatic insufficiency fcibsh-rniksazl-cif Take 1 250 capsule 3 Active lase (CREON) capsule by 0 36,000-114,000- mouth 3 180,000 unit (three) times CpDRIndications: daily with Alcohol-induced meals. chronic pancreatitis omeprazole 40 mg Take 1 30 capsule [...] times anxiety disorder) daily as needed (anxiety). ESCITALOPRAM TAKE ONE 30 tablet 0 Active OXALATE 5 mg TABLET BY 0 tabletIndications: MOUTH ONE Bipolar I disorder, TIME DAILY most recent episode depressed, in partial remission, ENRICO (generalized anxiety disorder) clonazePAM 0.5 mg Take 1 tablet 60 tablet 0 Active tabletIndications: by mouth 2 0 ENRICO (generalized (two) times anxiety disorder) daily as needed (anxiety). CLONAZEPAM 0.5 mg Take 1 tablet 60 tablet 0 01/19/20 Discontinued tabletIndications: by mouth 2 0 20 (Reorder) ENRICO (generalized (two) times anxiety disorder) daily as needed (anxiety). documented as of this encounter (statuses as of 01/20/2020) Active Problems Problem Noted Date Drug-seeking behavior 04/12/2014 Diabetes mellitus 04/12/2014 Chronic pancreatitis 04/11/2014 Necrotizing pancreatitis 10/12/2013 Pancreatitis 10/11/2013 Agoraphobia Anxiety Depression EtOH dependence H/O opioid abuse documented as of this encounter (statuses as of 01/20/2020) Immunizations Name Administration Dates Next Due Influenza [...] Signs Not on filedocumented in this encounter Miscellaneous Notes Telephone Encounter - Raiza Tay LVN - 01/20/2020 3:21 PM CDT SANCHEZ 08/18/19 Last filled: clonazePAM 0.5 mg tablet 60 tablet 0 12/19/2019 -- documented in this encounter Plan of Treatment Health [...] Address T ype Group Dates [employer] [place] [facility] BCBS BLUE [id number] 2016-Pre [phone] O ANGEL X HMO ADVANTAGE HMO sent [phone] [place] [address] PEGGY WOODS [id number] 2018-Pre Beha vioral BEHAVIORAL BEHAVIORAL sent [facility] documented as of this encounter
--- OUTSIDE RECORDS SUMMARY | 2020-03-15 02:11 | XMS REPORT | Clinical Summary ---
:1980 Author Organization [facility] 24/7 Card [facility] [place] [facility] Address [address] [place] [address] Care Team Providers Name Role Phone Keshawn Goldman MD Primary Care Provider [phone] Allergies Active Allergy Reactions Severity Noted Date [...] recent episode depressed, in partial remission Insulin [place], Use as directed 100 Each 3 09/19/2019 Active Disposable, (NOVOFINE 32) 32 gauge x 1/4" NdleIndications: Uncontrolled diabetes mellitus secondary to pancreatic insufficiency apfhky-vtmfiekv-dimlhp Take 1 capsule 250 capsule 3 10/06/2019 [...] Nurse, Jon Urgent Results 12/27/2019 Patient Secure [facility] Family Medicine Keshawn Goldman MD 12/27/2019 Patient Secure [facility] OB Satellites Doctor Unassigned, [place] 12/25/2019 Laboratory Only Family Medicine Unknown, Screening for viral Attending disease (Primary Dx) Nicolas Siddiqui MD Nurse, Jon Urgent 12/25/2019 Travel 12/19/2019 Refill Family Medicine Keshawn Goldman MD 12/09/2019 Refill Family Medicine Keshawn Goldmanill Charmaine Becerril MD 11/24/2019 Orders Only Doctor Unassigned, [place] 11/22/2019 Refill Family Medicine Keshawn Goldman MD 11/19/2019 Refill Family Keshawn Velez MD 11/16/2019 Telephone Gastroenterology Wu Greer, Medical Records 11/16/2019 Orders Only Doctor Unassigned, [place] 11/08/2019 Orders Only Doctor Unassigned, [place] 10/19/2019 Refill Family Keshawn Velez MD 10/19/2019 Refill Family Keshawn Velez MD 10/18/2019 Orders Only Doctor Unassigned, [place] 10/18/2019 Telephone Gastroenterology Wu Greer, Medicati on [...] 170.2 cm (5' 7") 08/11/2019 11:16 AM SOLE ASSESSOR Body Mass Index 27.39 08/11/2019 11:16 AM SOLE ASSESSOR Plan of Treatment Health Maintenance Due Date [...] nature SARS-CoV-2 PCR Not Detected Not Detected [facility] Specimen Swab - NASOPHARYNGEAL SWAB Narrative Performed At [employer] SARS-CoV-2 Assay is a nucleic acid [facility] amplification test intended for the qualitative detect ion of RNA from SARS-CoV-2 from nasopharyngeal (UTILITY OPERATOR) specimens . It is used under Emergency [...] indicated. Performing Organization Address City/State/Zipcode Phone Number [facility] CLIA: [id number] [place] [address] [place] [address] EXTERNAL PROVIDER RECORDS (11/24/2019 12:01 AM CDT)Only [...] Effective Phone Address T ype Group Dates [facility] BCBS BLUE [id number] 2016-Pre [phone] O ANGEL X HMO ADVANTAGE HMO sent [phone] [place] [address] PEGGY WOODS [id number] 2018-Pre Beha vioral BEHAVIORAL BEHAVIORAL sent [facility] [phone]
--- OUTSIDE RECORDS SUMMARY | 2020-03-15 02:12 | XMS REPORT | Summary of Care ---
:1980 Author Organization [facility] [employer] [facility] Address [address] [place] [address] Care Team Providers Name Role Phone Keshawn Goldman MD Primary Care Provider [phone] Reason for Visit Reason Onset Date Comments Refill Request 02/20/2020 Encounter Details Date Type Department Care Team Description 02/20/2020 Refill [facility] GASTROENTEROLOGY Wu Sue MD Refill Request -[address] [address] [place] [address] Allergies Active Allergy Reactions Severity Noted Date Comments Buspirone Hcl Hallucinations High 05/27/2019 Divalproex Sodium Hallucinations High 05/26/2019 documented as of this encounter (statuses as of 02/21/2020) Medications Medication Sig Dispensed Refills Start Date [...] times daily as Anxiety needed for Anxiety. metoprolol succinate Take 1 tablet by 90 tablet 1 08/19/2019 Active XL 50 mg 24 hr mouth daily. tabletIndications: Essential hypertension Quetiapine (SEROQUEL Take 2 tablets 60 tablet 1 09/15/2019 Active XR) 50 mg by mouth at tabletIndications: bedtime. Bipolar I disorder, most recent episode depressed, in partial remission Insulin [place], Use as directed 100 Each 3 09/19/2019 Active Disposable, (NOVOFINE 32) 32 gauge x 1/4" NdleIndications: Uncontrolled diabetes mellitus secondary to pancreatic insufficiency hxdjds-stquougx-gizyiw Take 1 capsule 250 capsule 3 10/06/2019 Active e (CREON) by mouth 3 36,000-114,000- (three) times 180,000 unit daily with CpDRIndications: meals. Alcohol-induced chronic pancreatitis omeprazole 40 mg Take 1 capsule 30 capsule 4 10/25/2019 Active capsule by mouth daily. insulin glargine inject 34 Units 10 mL 3 12/09/2019 Active (LANTUS U-100 INSULIN) under the skin 100 unit/mL daily. injectionIndications: Type 1 diabetes mellitus without complication ESCITALOPRAM OXALATE 5 TAKE ONE TABLET 30 tablet 0 01/16/2020 Active mg tabletIndications: BY MOUTH ONE Bipolar I disorder, TIME DAILY most recent episode depressed, in partial remission, ENRICO (generalized anxiety disorder) clonazePAM 0.5 mg Take 1 tablet by 60 tablet 0 01/20/2020 Active tabletIndications: ENRICO mouth 2 (two) (generalized anxiety times daily as disorder) needed (anxiety). documented as of this encounter (statuses as of 02/21/2020) Active Problems Problem Noted Date Drug-seeking behavior 04/12/2014 Diabetes mellitus 04/12/2014 Chronic pancreatitis 04/11/2014 Necrotizing pancreatitis 10/12/2013 Pancreatitis 10/11/2013 Agoraphobia Anxiety Depression EtOH dependence H/O opioid abuse documented as of this encounter (statuses as of 02/21/2020) Immunizations Name Administration Dates Next Due Influenza [...] Assigned at Date Recorded Not on file documented as of this encounter Last Filed Vital Signs Not on filedocumented in this encounter Miscellaneous Notes Telephone Encounter - Wu Greer MD - 02/20/2020 6:24 PM CDTPatient needs to follow up in clinic. Plan was for follow up in 3 months from last visit in 09/2019. Telephone Encounter - Lovely Salguero LVN - 02/20/2020 6:04 PM CDTPlease advise on refill documented in this encounter Plan of Treatment [...] filedocumented in this encounter Visit Diagnoses Diagnosis Alcohol-induced chronic pancreatitis Chronic pancreatitis documented in this encounter Additional Health Concerns Infection Onset Date Last Indicated Resolved Time Contact- MRSA 10/13/2013 10/13/2013 documented as of this encounter Insurance Payer Benefit Plan / Subscriber ID Effective Phone Address T ype Group Dates BCBS [facility] BCBS [place] [id number] 2016-Pre [phone] O ANGEL X HMO ADVANTAGE HMO sent [phone] [place] [address] PEGGY WOODS [id number] 2018-Pre Beha vioral BEHAVIORAL BEHAVIORAL sent [facility] documented as of this encounter
--- OUTSIDE RECORDS SUMMARY | 2020-03-15 02:12 | XMS REPORT | Summary of Care ---
:1980 Author Organization [facility] - Health Address [address] [place] [address] Care Team Providers Name Role Phone Keshawn Goldman MD Primary Care Provider [phone] Reason for Visit Reason Comments Refill Request Encounter Details Date Type Department Care Team Description 02/19/2020 Refill [facility] Pediatric & Adult Ethel Goldman Refill Request Primary Care-[place] MD Jone [address] [facility], [address] [facility]. [address] [place], [place] [phone] [place] [address] Allergies Active Allergy Reactions Severity Noted Date Comments Buspirone Hcl Hallucinations High 05/27/2019 Divalproex Sodium Hallucinations High 05/26/2019 documented as of this encounter (statuses as of 02/20/2020) Medications Medication Sig Dispensed Refills Start End [...] times Anxiety daily as needed for Anxiety. metoprolol Take 1 tablet 90 tablet 1 Activ e succinate XL 50 mg by mouth 0 24 hr daily. tabletIndications: Essential hypertension Quetiapine Take 2 60 tablet 1 Active (SEROQUEL XR) 50 mg tablets by 0 tabletIndications: mouth at Bipolar I disorder, bedtime. most recent episode depressed, in partial remission Insulin [place], Use as 100 Each 3 Act wolf Disposable, directed 0 (NOVOFINE 32) 32 gauge x 1/4" NdleIndications: Uncontrolled diabetes mellitus secondary to pancreatic insufficiency oqlifa-igmtxayz-ome Take 1 250 capsule 3 Active lase (CREON) capsule by 0 36,000-114,000- mouth 3 180,000 unit (three) times CpDRIndications: daily with Alcohol-induced meals. chronic pancreatitis omeprazole 40 mg Take 1 30 capsule 4 Ac tive capsule capsule by 0 mouth daily. insulin glargine inject 34 10 mL 3 Act wolf (LANTUS U-100 Units under 0 INSULIN) 100 the skin unit/mL daily. injectionIndication s: Type 1 diabetes mellitus without complication ESCITALOPRAM TAKE ONE 30 tablet 0 Active [...] times anxiety disorder) daily as needed (anxiety). insulin aspart 160 to 200, 1 1 Box 3 A ctive U-100 (NOVOLOG u, 201 to 0 FLEXPEN U-100 240, 2 u. BG INSULIN) 100 241 to 280, 3 unit/mL (3 mL) unit. BG 281 injectionIndication to 300, 4 s: Type 1 diabetes units. BG > mellitus without 300, 5 units, complication recheck in 3 hours and cover with s/s Insulin Use to inject 400 Syringe 3 Acti ve Syringe-Needle insulin 4X 0 U-100 1 mL 31 gauge daily. x 10/21 Syrg DX:[id number] insulin aspart 160 to 200, 1 1 Box 6 02/20/20 D iscontinued U-100 (NOVOLOG u, 201 to 0 20 (Reor patrick) FLEXPEN U-100 240, 2 u. BG INSULIN) 100 241 to 280, 3 unit/mL (3 mL) unit. BG 281 injectionIndication to 300, 4 s: Type 1 diabetes units. BG > mellitus without 300, 5 units, complication recheck in 3 hours and cover with s/s Insulin Use to inject 400 Syringe 1 02/20/20 Disc ontinued Syringe-Needle insulin 4X 0 20 (Reo rder) U-100 1 mL 31 gauge daily. x 10/21 Syrg DX:[id number] clonazePAM 0.5 mg Take 1 tablet 60 tablet 0 02/20/20 Discontinued tabletIndications: by mouth 2 0 20 (Reorder) ENRICO (generalized (two) times anxiety disorder) daily as needed (anxiety). documented as of this encounter (statuses as of 02/20/2020) Active Problems Problem Noted Date Drug-seeking behavior 04/12/2014 Diabetes mellitus 04/12/2014 Chronic pancreatitis 04/11/2014 Necrotizing pancreatitis 10/12/2013 Pancreatitis 10/11/2013 Agoraphobia Anxiety Depression EtOH dependence H/O opioid abuse documented as of this encounter (statuses as of 02/20/2020) Immunizations Name Administration Dates Next Due Influenza [...] Telephone Encounter - Raiza Tay LVN - 02/20/2020 2:48 PM CDT Last filled: clonazePAM 0.5 mg tablet 60 tablet 0 01/20/2020 -- elephone Encounter - Erin Giron - 02/19/2020 3:27 PM CDRae Richter is a 39 year old female whose calling because she has a couple days worth left on the Cloazepam, and a pen left for the Novolog. Thank you. documented in this encounter Plan of Treatment [...] ENRICO (generalized anxiety disorder) Generalized anxiety disorder Type 1 diabetes mellitus without complic ation Type I (juvenile type) diabetes mellitus without mention of complication, not stated as uncontrolled documented in this encounter Additional Health Concerns Infection Onset Date Last Indicated Resolved Time Contact- MRSA 10/13/2013 10/13/2013 documented as of this encounter Insurance Payer Benefit Plan / Subscriber ID Effective Phone Address T ype Group Dates BCBS [facility] BCBS [place] [id number] 2016-Pre [phone] O ANGEL X HMO ADVANTAGE HMO sent [phone] [place] [address] PEGGY WOODS [id number] 2018-Pre Beha vioral BEHAVIORAL BEHAVIORAL sent [facility] documented as of this encounter
--- OUTSIDE RECORDS SUMMARY | 2020-03-15 02:12 | XMS REPORT | Summary of Care ---
:1980 Author Organization [facility] - Health Address [address] [place] [id number] Care Team Providers Name Role Phone Keshawn Goldman MD Primary Care Provider [phone] Reason for Visit Reason Onset Date Comments Refill Request 02/20/2020 Encounter Details Date Type Department Care Team Description 02/20/2020 Refill [facility] Ethel Goldman Refill Request Primary Care-[place] MD Jone [address] [facility], [address] [facility] [place], [place] [phone] [place] [address] Allergies Active Allergy Reactions Severity Noted Date Comments Buspirone Hcl Hallucinations High 05/27/2019 Divalproex Sodium Hallucinations High 05/26/2019 documented as of this encounter (statuses as of 02/20/2020) Medications Medication Sig Dispensed Refills Start Date [...] recent episode depressed, in partial remission Insulin [place], Use as directed 100 Each 3 09/19/2019 Active Disposable, (NOVOFINE 32) 32 gauge x 1/4" NdleIndications: Uncontrolled diabetes mellitus secondary to pancreatic insufficiency ytgguq-rkqzqwmw-oppjal Take 1 capsule 250 capsule 3 10/06/2019 [...] Encounter - Raiza Tay LVN - 02/20/2020 2:51 PM CDTduplicate documented in this encounter Plan of Treatment [...] Problems Progress Quit using Tobacco Use No Cam, nas Johnson MA (cigarettes, smokeless, etc) documented as of this encounter Results Not on filedocumented in this encounter Visit Diagnoses Diagnosis Type 1 diabetes mellitus without complic ation Type I (juvenile type) diabetes mellitus without mention of complication, not stated as uncontrolled Uncontrolled diabetes mellitus secondary to pancreatic insufficiency Secondary diabetes mellitus without ment ion of complication, uncontrolled ENRICO (generalized anxiety disorder) Generalized anxiety disorder documented in this encounter Additional Health Concerns Infection Onset Date Last Indicated Resolved Time Contact- MRSA 10/13/2013 10/13/2013 documented as of this encounter Insurance Payer Benefit Plan / Subscriber ID Effective Phone Address T ype Group Dates [facility] [id number] 2016-Pre [phone] AN[place]EL X HMO ADVANTAGE HMO sent [phone] [place] [address] PEGGY WOODS [id number] 2018-Pre [facility] sent [facility] documented as of this encounter
== END 2020-03-12 10:55 | disposition home or self-care (01) ==
LOC: ER 21:53 → ERHOLD 03-12 00:19
PROVIDERS: ADMIT Family Medicine; ATTEND Hospitalist
DX: T40.601A Poisoning by unspecified narcotics, accidental (unintentional), initial encounter (principal); E10.9 Type 1 diabetes mellitus without complications; I10 Essential (primary) hypertension; Z20.828 Contact with and (suspected) exposure to other viral communicable diseases; F10.10 Alcohol abuse, uncomplicated; F11.10 Opioid abuse, uncomplicated; F15.10 Other stimulant abuse, uncomplicated; F17.210 Nicotine dependence, cigarettes, uncomplicated
CPT/HCPCS: 36415; 80048; 80076; 80307; 80320; 80329; 81003; 81025; 82947; 83036; 84484; 85025; 85610; 85730; 93005; 99291; 99292; G0378; J1650; J2405; J7030; U0002

== ENCOUNTER 2021-06-04 19:29 | Emergency (ER) | payer MEDICARE ==
--- OUTSIDE RECORDS SUMMARY | 2021-06-04 19:33 | XMS REPORT | Continuity of Care Document ---
:[address] [facility] t Address [address] [place] [address] Care Team Providers Name Role Phone Sanjuanita Shearer MD Primary Care Physician Tania ADLER Attending Clinician Doctor Unassigned, Name Attending Clinician Unavailable Unknown Attending Clinician Unavailable Trent ACEVES Attending Clinician Sanjuanita Shearer MD Attending Clinician Jone Goldman MD Attending Clinician Zoey ADLER Attending Clinician SANDRA Attending Clinician Unavailable JULIANNE Attending Clinician Unavailable ANMOL Attending Clinician Unavailable JULIANNE Admitting Clinician Unavailable Payers Payer Name Policy Type Policy Number Effective Date Expiration Date S ource Problems Condition Condition Condition Status Onset Resolution Last Treating Co mments Source Name Details Category Date Date Treatment Clinician Date Diabetes Diabetes Disease Active Unive rs mellitus mellitus 6-08 [place] 00 Medical pancreatic pancreatic Br anch disease disease Tachycardi Tachycardi Disease Active U nivers a a 6-08 ity of 00:00: [address] Diaphoresi Diaphoresi Disease Active U nivers s s 6-08 ity of 00:00: [address] PTSD PTSD Disease Active Univers (post-trau (post-trau 3-18 it y of matic matic 00:00: [place] stress stress 00 Medical disorder) disorder) Bran ch Bipolar 1 Bipolar 1 Disease Active Uni vers disorder disorder 2-04 ity of 00:00: [place] 00 Medical Indian Drug-seeki Drug-seeki Disease Active 2013-06 U nivers ng ng 1-05 ity of behavior behavior 00:00: [place] [facility] Indian Chronic Chronic Disease Active 2013-06 Univers pancreatit pancreatit 1-04 it y of is is 00:00: [place] [facility] Necrotizin Necrotizin Disease Active U nivers g g 5- ity of pancreatit pancreatit [place] [facility] Pancreatit Pancreatit Disease Active U nivers is is 10-11 ity of 00:00: [place] 00 [facility] Agoraphobi Agoraphobi Disease Active U nivers a a ity of [facility] Anxiety Anxiety Disease Active Univers ity of [facility] Depression Depression Disease Active U nivers ity of [facility] EtOH EtOH Disease Active Univers dependence dependence it y of [facility] H/O opioid H/O opioid Disease Active U nivers abuse abuse ity of [facility] Allergies, Adverse Reactions, Alerts Allergy Allergy Status Severity Reaction(s) Onset Inactive Treating Comm ents Source Name Type Date Date Clinician Buspiron Propensi Active Hallucinatio 2018-06 Univers e Hcl ty to ns 2-20 ity of adverse 00:00: [place] reaction 00 Medical s to Branch drug Divalpro Drug Active Hallucinatio 2018-06 Un kendra ex Allergy ns 2-19 ity of Sodium 00:00: [place] [address] Medical Branch Family History Family Member Diagnosis Comments Start Date Stop Date Source Natural father Hypertension Universi ty [facility] Natural mother Hypertension Universi ty [facility] Social History Social Habit Start Date Stop Date Quantity Comments Source History SDOH University o f Alcohol Frequency [place] M edical Branch History SDOH University o f Alcohol Std [place] [facility] Drinks Branch History SDOH University o f Alcohol Binge [place] Medic al Branch Exposure to Not sure University of SARS-CoV-2 [place] Medical (event) Branch Alcohol intake 2021-05-18 2021-05-18 Current drinker Unive rsity of 00:00:00 00:00:00 of alcohol [place] [facility] (finding) Branch Alcohol Comment 2018-01-11 2018-01-11 1 glass or wine Univ ersity of 00:00:00 00:00:00 a month [facility] Sex Assigned At [birth year] Universit y of 00:00:00 00:00:00 [facility] Smoking Status Start Date Stop Date Source Current every day smoker 2021-02-01 00:00:00 Uni versity of [facility] Medications Ordered Filled Start Stop Current Ordering Indication Dosage Frequency Signature Comments Components Source Medication Medication Date Date Medication? Clinician (SIG) Name Name lamoTRIgine 2020-06 Yes [id number] Take two Univers 100 mg 2-26 tablets by ity of tablet 00:00: mouth [place] 00 daily. Medical Branch prazosin 1 2020-06 Yes [id number] 1mg Take 1 U nivers mg capsule 2-26 capsule by ity of 00:00: mouth at [place] 00 bedtime. Medical Branch LORazepam 2020-06 Yes [id number] 1mg Take 1 Un kendra (ATIVAN) 1 2-26 tablet by ity of mg tablet 00:00: mouth 2 [place] 00 (two) Medical times Branch daily as needed for Anxiety or Agitation. Nitrofurant 2020-06 Yes [id number] 100mg Take 1 Univers oin&Nit. 2-11 capsule by ity o f Macrocryst 00:[place] (MACROBID) 00 (two) Medical 100 mg times Branch capsule daily. phenazopyri 2020-06 Yes [id number] 200mg Take 1 Univers dine 2-11 tablet by ity of (PYRIDIUM) 00:00[place] 200 mg 00 (three) Medical tablet times Branch daily after meals. phenazopyri 2020-06- No [id number] 200mg Take 1 Univers dine 2-11 12-11 tablet by ity of (PYRIDIUM) 00:00: 00:00 mouth 3 [place] 200 mg 00 :00 (three) Medical tablet times Branch daily after meals. Nitrofurant 2020-06- No [id number] 100mg Take 1 Univers oin&Nit. 2-11 12-11 capsule by ity of Macrocryst 00:00: 00:00 mouth 2 [place] (MACROBID) 00 :00 (two) Medical 100 mg times Branch capsule daily. insulin 2020-06 Yes [id number] inject 34 Univers glargine 2-01 Units ity of (LANTUS 00:00: under the [place] U-100 00 skin Medical INSULIN) daily. Branch 100 unit/mL injection LORazepam 2020-06- No [id number] 1mg Take 1 U nivers (ATIVAN) 1 -24 12-26 tablet by ity of mg tablet 00:00: 00:00 mouth 2 [place] 00 :00 (two) Medical times Branch daily as needed for Anxiety or Agitation. prazosin 1 2020-06- No [id number] 1mg Take 1 Univers mg capsule 07-01- capsule by it y of 00:00: 00:00 mouth at [place] 00 :00 bedtime. Medical Branch lamoTRIgine 2020-06- No [id number] Take two Univers 100 mg -31 05- tablets by ity of tablet 00:00: 00:00 mouth [place] 00 :00 daily. Medical Branch metoprolol 2020-06 Yes [id number] 50mg Take 1 U nivers succinate 1-07 tablet by ity o f XL 50 mg 24 00:00: mouth [place] hr tablet 00 daily. Medical Branch Insulin Yes [id number] 35U inject 35 Univers Glargine 9-24 Units ity of (LANTUS 00:00: under the [place] SOLOSTAR 00 skin at Medical U-100 bedtime. Branch INSULIN) 100 unit/mL (3 mL) injection Insulin Yes [id number] Use as Univ ers [place], 9-13 directed ity of Disposable, 00:00: [place] (NOVOFINE 00 Medical 32) 32 Branch gauge x 1/4" Ndle insulin Yes [id number] 160 to Uni vers aspart 6-08 200, 1 u, ity of U-100 00:00: 201 to [place] (NOVOLOG 00 240, 2 u. Medica l FLEXPEN BG 241 to Branch U-100 280, 3 INSULIN) unit. BG 100 unit/mL 281 to (3 mL) 300, 4 injection units. BG > 300, 5 units, recheck in 3 hours and cover with s/s lipase-prot Yes [id number] 1{capsu Take 1 Univers ease-amylas 2-03 le} capsule by it y of e (CREON) 00:00: mouth 3 [place] 36,000-114, 00 (three) Medic al 000- times Indian 180,000 daily with unit CpDR meals. Insulin 2019-06 Yes Use to [facility] Syringe-Nee 1-13 inject ity of dle U-100 1 00:00: insulin 4X [place] mL 31 gauge 00 daily. Medica l x 10/21 Syrg DX:K86.89 Bra [facility] CONTOUR Yes [id number] Use to [facility] ers NEXT TEST 5-31 check ity of STRIPS 00:00: glucose 4X [place] strip 00 daily. Medical DX:E08.65 Branch flash Yes [id number] 1{each} 1 Each Uni vers glucose 3-15 daily. Dx ity of scanning 00:00: 11.8, E [place] reader [facility] 00 16.2, K Medic al 86.89 Branch flash Yes [id number] 1{each} 1 Each Uni vers glucose 3-15 every 10 ity of sensor Kit 00:00: (ten) [place] 00 days. Dx Medical 11.8, E Branch 16.2, K 86.89 Blood-Gluco Yes Use as [facility] ers se Meter 8-14 directed ity of (CONTOUR 00:00: [place] METER) [address] Immunizations Ordered Filled Immunization Date Status Comments [facility] Immunization Name Name TDAP 2021-03-01 Completed University of 00:00:00 [facility] Pfizer COVID-19 Pfizer COVID-19 2021-01-21 Completed Vaccine Vaccine 00:00:00 Pfizer COVID-19 Pfizer COVID-19 2020-07-20 Completed Vaccine Vaccine 00:00:00 SARS-COV-2 COVID-19 2020-07-20 Completed Unive rsity of PFIZER VACCINE 00:00:00 [facility] Pfizer COVID-19 Pfizer COVID-19 2020-06-29 Completed Vaccine Vaccine 00:00:00 SARS-COV-2 COVID-19 2020-06-29 Completed Unive rsity of PFIZER VACCINE 00:00:00 [facility] Influenza Virus 2018-04-12 Completed Universit y of Vaccine Quad .5 mL 00:00:00 [facility] 6+ MO Indian Influenza Virus 2014-04-12 Completed Universit y of Vaccine Quad IM 3+ 00:00:00 [facility] Branch Pneumococcal 2013-04-22 Completed University o f Polysaccharide, 00:00:00 [place] Med ical PPSV23 (PNEUMOVAX) Branch Influenza Virus 2013-04-22 Completed Universit y of Vaccine (3+ yrs) 00:00:00 [facility] dical Indian Vital Signs Vital Name Observation Time Observation Value Comments Source Systolic blood 2021-05-19 02:49:00 150 mm[Hg] Univer sity of pressure [facility] Diastolic blood 2021-05-19 02:49:00 99 mm[Hg] Unive rsity [facility] Heart rate 2021-05-19 02:44:00 97 /min [facility] Body temperature 2021-05-19 02:44:00 36.22 Sabrina [facility] Respiratory rate 2021-05-19 02:44:00 23 /min [facility] Body height 2021-05-19 02:44:00 170.2 cm [facility] Body weight 2021-05-19 02:44:00 71.215 kg [facility] BMI 2021-05-19 02:44:00 24.59 kg/m2 [facility] Oxygen saturation in 2021-05-19 02:44:00 98 /min [facility] Arterial blood by [facility] Pulse oximetry Indian Procedures Procedure Date / Time Performed Performing Clinician [facility] e URINE CULTURE 2021-05-19 02:50:00 Ekta Newman [facility] POCT URINALYSIS 2021-05-18 00:00:00 Ekat Newman [facility] Encounters Start End Encounter Admission Attending Care Care Encounter Source Date/Time Date/Time Type Type Clinicians Facility Department ID 2021-06-01 2021-06-01 Jasper Marin, 1.2.840.0 [id number] Univers 00:00:00 00:00:00 Miya 81918.1.1 ity of 3.104.2.7 [place] .3.696557 Medica l .8 Branch 2021-05-28 2021-05-28 Patient Doctor 1.2.840.2 [id number] Univers 00:00:00 00:00:00 Secure Msg Unassigned, 15011.1.1 ity of [place] 3.104.2.7 [place] .3.737025 Medica l .8 Branch 2021-05-18 2021-05-18 Urgent Unknown, Attending 1.2.840.1 [id number] Univers 20:45:00 20:59:51 Ekta Russ 61765.1.1 ity of 3.104.2.7 [place] .3.510869 Medica l .8 Branch 2021-05-09 2021-05-09 Travel 1.2.840.1 1.2.880.084 [id number] Univers 00:00:00 00:00:00 52488.1.1 350.1.13.10 ity of 3.104.2.7 4.2.7.3.698 [place] .3.258586 084.8 Medica l .8 Branch 2021-05-06 2021-05-06 Refill Shearer, 1.2.840.5 [id number] Univers 00:00:00 00:00:00 Alexsandra 73242.1.1 ity of [place] 3.104.2.7 [place] .3.013236 Medica l .8 Branch 2021-04-12 2021-04-12 Refill Shearer, 1.2.840.8 [id number] Univers 00:00:00 00:00:00 Alexsandra 24066.1.1 ity of [place] 3.104.2.7 [place] .3.219091 Medica l .8 Branch 2021-04-10 2021-04-10 Travel 1.2.840.1 [id number] [id number] Univers 00:00:00 00:00:00 66933.1.1 350.1.13.10 ity of 3.104.2.7 4.2.7.3.698 [place] .3.329315 084.8 Medica l .8 Branch 2021-04-01 2021-04-01 Travel 1.2.840.1 1.2.009.513 [id number] Univers 00:00:00 00:00:00 47801.1.1 350.1.13.10 ity of 3.104.2.7 4.2.7.3.698 [place] .3.927763 084.8 Medica l .8 Branch 2021-03-12 2021-03-12 Patient Doctor 1.2.840.0 [id number] Univers 00:00:00 00:00:00 Secure Msg Unassigned, 89262.1.1 ity of [place] 3.104.2.7 [place] .3.146153 Medica l .8 Branch 2021-03-08 2021-03-08 Patient Doctor 1.2.840.7 [id number] Univers 00:00:00 00:00:00 Secure Msg Unassigned, 92587.1.1 ity of [place] 3.104.2.7 [place] .3.511825 Medica l .8 Branch 2021-03-05 2021-03-05 Patient Doctor 1.2.840.9 [id number] Univers 00:00:00 00:00:00 Secure Msg Unassigned, 27825.1.1 ity of [place] 3.104.2.7 [place] .3.301536 Medica l .8 Indian 2021-01-21 2021-01-21 Outpatient GCCOVIDV GCCOVIDV [id number] GCCOVID 00:00:00 00:00:00 V 2020-07-20 2020-07-20 Outpatient GCCOVIDV GCCOVIDV [id number] GCCOVID 00:00:00 00:00:00 V 2020-06-29 2020-06-29 Outpatient GCCOVIDV GCCOVIDV [id number] GCCOVID 00:00:00 00:00:00 V 2020-02-20 2020-02-20 NANCY Yip 1.2.499.330 [id number] 00:00:00 00:00:00 Keshawn PENA 350.1.13.10 [facility] 4.2.7.2.686 PEDIATRIC [id number] AND [address] [place] [address] 2020-02-20 2020-02-20 Jasper GreerRUST 1.2.840.114 [id number] 00:00:00 00:00:00 Wu SPECIALTY 350.1.13.10 [facility] 4.2.7.2.686 CENTER AT [id number] ANDREW Schuler [facility] 2020-02-19 2020-02-19 Jasper GoldmanRUST 1.2.190.910 [id number] 00:00:00 00:00:00 Keshawn FIERROROSEMARY 350.1.13.10 [facility] 4.2.7.2.686 PEDIATRIC [id number] AND [address] [facility] 2020-01-19 2020-01-19 Jasper GoldmanRUST 1.2.158.227 [id number] 00:00:00 00:00:00 Keshawn FIERROROSEMARY 350.1.13.10 [facility] 4.2.7.2.686 PEDIATRIC [id number] AND [address] [facility] 2019-08-04 2019-08-04 [id number] [place] 00:00:00 00:00:00 JEAN PIERRE [address] 2019-08-01 2019-08-01 [facility] [id number] [place] 00:00:00 00:00:00 JEAN PIERRE [address] 2019-07-26 2019-07-28 [facility] [id number] [place] 00:00:00 00:00:00 DANIKA [address] 2019-07-25 2019-07-25 Emergency [facility] [id number] [id number] [place] 00:00:00 00:00:00 JANA [address] Results Test Description Test Time Test Comments Results Result Comments Source POCT URINALYSIS W SPECIFIC GRAVITY 2021-05-19 02:52:00 Test Item Value Reference Range Interpretation Comme nts POCT U SP GRAV (test code = 3255) 1.020 mg/dl 1.005-1.025 POCT PH U (test code = 3254) 5 mg/dl 5-8 POCT U LEUK EST (test code = 3263) positive Negative - Negative POCT U NIT (test code = 3262) neg Negative - Negative POCT U PROT (test code = 3259) neg Negative - Negative POCT U GLU (test code = 3256) positive Negative - Negative POCT U KETONE (test code = 3258) small Negative - Negative POCT U UROBILI (test code = 3260) neg 0.2-1 POCT U BILI (test code = 3261) neg Negative - Negative POCT U BLD (test code = 3257) positive Negative - Negative POCT U COLOR (test code = 3266) yellow POCT U APPEAR (test code = 3267) cloudy [facility]
--- NOTE | 2021-06-04 20:23 | EDPHYS ---
Physician Documentation [facility] Name: Pamela Richter Age: 40 yrs Sex: Female : 1980 Arrival Date: 06/04/2021 Time: 19:33 Bed External Waiting Private MD: ED Physician Merritt Vizcaino HPI: 06/04 21:29 This 40 yrs old Female presents to ER via Unassigned with complaints of Ear Pain. kb 21:29 The patient presents with pain. The complaints affect the left ear. Onset: The kb symptoms/episode began/occurred 2 day(s) ago. Modifying factors: The symptoms are alleviated by nothing, the symptoms are aggravated by nothing. Associated signs and symptoms: The patient has no apparent associated signs or symptoms. Severity of symptoms: At their worst the symptoms were moderate in the emergency department the symptoms are unchanged. The patient has not experienced similar symptoms in the past. The patient has not recently seen a physician. 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 - Social history:: Smoking status: unknown. ROS: 06/04 21:28 Constitutional: Negative for fever, chills, and weight loss. kb ENT: Positive for ear pain. All other systems are negative. Exam: 21:28 Constitutional: This is a well developed, well nourished patient who is awake, alert, kb and in no acute distress. Head/Face: Normocephalic, atraumatic. Respiratory: Respirations even and unlabored. No increased work of breathing. Talking in full sentences Skin: Warm, dry with normal turgor. Normal color. MS/ Extremity: Pulses equal, no cyanosis. Neurovascular intact. Full, normal range of motion. Neuro: Awake and alert, GCS 15, oriented to person, place, time, and situation. Moves all extremities. Normal gait. Psych: Awake, alert, with orientation to person, place and time. Behavior, mood, and affect are within normal limits. 21:28 ENT: External ear(s): are unremarkable, Ear canal(s): purulent discharge, that is minimal, in the left canal, swelling, that is moderate, of the left canal, TM's: are normal. Vital Signs: 20:20 BP 147 / 105; Pulse 109; Resp 16 S; Temp 98.8(TE); Pulse Ox 100% on R/A; Weight 69.85 bb kg (R); Height 5 ft. 7 in. (170.18 cm) (R); 20:20 Body Mass Index 24.12 (69.85 kg, 170.18 cm) bb MDM: 20:22 Patient medically screened. kb 21:27 Data reviewed: vital signs, nurses notes. Data interpreted: Pulse oximetry: on room air kb is 100 %. Interpretation: normal. Counseling: I had a detailed discussion with the patient and/or guardian regarding: the historical points, exam findings, and any diagnostic results supporting the discharge/admit diagnosis, the need for outpatient follow up, a family practitioner, to return to the emergency department if symptoms worsen or persist or if there are any questions or concerns that arise at home. ED course: Pt is asymptomatic of blood pressure. States she forgot to take her bp meds for the last 2 days because her ear has been hurting. Also reports she is very nervous because she had to come into the hospital . Administered Medications: No medications were administered Disposition Summary: 06/04/21 20:22 Discharge Ordered Location: Home kb Condition: Stable kb Diagnosis - Other otitis externa, left ear kb Followup: kb - With: Emergency Department - When: As needed - Reason: Worsening of condition Followup: kb - With: Private Physician - When: 2 - 3 days - Reason: Recheck today's complaints, Continuance of care, Re-evaluation by your physician Discharge Instructions: - Discharge Summary Sheet kb - Otitis Externa, Wuvp-vs-Gobt kb - Ear Drops, Adult, Wshh-uu-Qsdp kb Forms: - Medication Reconciliation Form kb - Thank You Letter kb - Antibiotic Education kb - Prescription Opioid Use kb Prescriptions: - Ciprodex 0.3-0.1 % Otic Drops, Suspension - instill 4 drops by OTIC route every 12 hours for 7 days , for ears ONLY; 1 kb Container; Refills: 0, Product Selection Permitted Addendum: 06/06/2021 20:29 Co-signature as Attending Physician, Merritt Vizcaino MD. [facility] Signatures: Renetta Soto, YOLA-C YOLA-Giselle Bran RN RN Merritt Angelo MD MD [email or web address]
--- NOTE | 2021-06-05 04:43 | ER ---
Nurse's Notes [facility] Name: Pamela Richter Age: 40 yrs Sex: Female : 1980 Arrival Date: 06/04/2021 Time: 19:33 Bed External Waiting [facility] MD: Diagnosis: Other otitis externa, left ear Presentation: 06/04 20:15 Chief complaint: Patient states: she is having left ear pain. Coronavirus screen: At bb this time, the client does not indicate any symptoms associated with coronavirus-19. Ebola Screen: No symptoms or risks identified at this time. 20:15 Method Of Arrival: Ambulatory bb 20:20 Initial Sepsis Screen: Does the patient meet any 2 criteria? No. Patient's initial bb sepsis screen is negative. Does the patient have a suspected source of infection? No. Patient's initial sepsis screen is negative. Risk Assessment: Do you want to hurt yourself or someone else? Patient reports no desire to harm self or others. Onset of symptoms was June 04, 2021. 20:20 Acuity: MANDI 5 bb Triage Assessment: 06/05 04:34 General: Appears in no apparent distress. Behavior is calm, cooperative. Pain: bb Complains of pain in left ear. EENT: Reports pain in right ear. Neuro: Level of Consciousness is awake, alert, obeys commands, Oriented to person, place, time, situation. Cardiovascular: Capillary refill < 3 seconds Patient's skin is warm and dry. Respiratory: Respiratory effort is even, unlabored. GI: No signs and/or symptoms were reported involving the gastrointestinal system. Derm: Skin is pink, warm \T\ dry. Musculoskeletal: Circulation, motion, and sensation intact. 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 - Social history:: Smoking status: unknown. Screenin/28 20:30 Abuse screen: Denies threats or abuse. Nutritional screening: No deficits noted. bb Tuberculosis screening: No symptoms or risk factors identified. Fall Risk None identified. Assessment: 20:30 Reassessment: Patient is alert, oriented x 3, equal unlabored respirations, skin bb warm/dry/pink. pt verbalized understanding of and agrees to plan of care discharge instructions given pt ambulated with steady gait to exit. Vital Signs: 20:20 BP 147 / 105; Pulse 109; Resp 16 S; Temp 98.8(TE); Pulse Ox 100% on R/A; Weight 69.85 bb kg (R); Height 5 ft. 7 in. (170.18 cm) (R); 20:20 Body Mass Index 24.12 (69.85 kg, 170.18 cm) bb ED Course: 19:33 Patient arrived in ED. jaRex 20:09 [facility]C [facility] kb 20:09 Merritt Vizcaino MD is Attending Physician. kb 20:30 Patient has correct armband on for positive identification. bb 20:30 No provider procedures requiring assistance completed. Patient did not have IV access bb during this emergency room visit. 06/05 04:34 Triage completed. bb 04:34 Arm band placed on. bb Administered Medications: No medications were administered Outcome: 06/04 20:22 Discharge ordered by . kb 20:30 Discharged to home ambulatory. bb 20:30 Condition: stable 20:30 Discharge instructions given to patient, Instructed on discharge instructions, follow up and referral plans. medication usage, Demonstrated understanding of instructions, follow-up care, medications, Prescriptions given X 1. 06/05 04:42 Patient left the ED. bb Signatures: Renetta Soto FNP-C FNP-Ckb Ballard, Brenda, RN RN Charissa Polo
[2021-06-05 04:50] VITALS: BP 147/105; TEMP 98.8; O2SAT 100
== END 2021-06-05 04:42 | disposition home or self-care (01) ==
LOC: ER 19:29
DX: H60.8X2 Other otitis externa, left ear (principal)
CPT/HCPCS: 99282

== ENCOUNTER 2021-07-30 01:25 | Emergency (ER) | payer MEDICARE ==
--- OUTSIDE RECORDS SUMMARY | 2021-07-30 01:29 | XMS REPORT | Continuity of Care Document ---
:1980 Author Organization [facility] t Address [address] [place] [address] Care Team Providers Name Role Phone SANJUANITA ELLSWORTH Primary Care Physician Unavailable Sanjuanita Ellsworth MD Attending Clinician SANJUANITA ELLSWORTH Attending Clinician Unavailable Jone Goldman MD Attending Clinician Zoey ADLER [...] nivers a a 6-08 ity of 00:00: [place] 00 [facility] Diaphoresi Diaphoresi Disease Active U nivers s s 6-08 ity of 00:00: [place] 00 [facility] PTSD PTSD Disease Active Univers (post-trau (post-trau 3-18 it y of matic matic 00:00: [place] stress stress 00 Medical disorder) disorder) Bran ch Bipolar 1 Bipolar 1 Disease Active Uni vers disorder disorder 2-04 ity of 00:00: [place] 00 [facility] Branch Drug-seeki Drug-seeki Disease Active 2013-06 U nivers ng ng 1-05 ity of behavior behavior 00:00: [place] 00 [facility] Chronic Chronic Disease Active 2013-06 Univers pancreatit pancreatit 1-04 it y of is is 00:00: [place] 00 [facility] Branch Necrotizin Necrotizin Disease Active U nivers g g 5- ity of pancreatit pancreatit [place] [facility] Pancreatit Pancreatit Disease Active U nivers is is 06 ity of 00:00: [place] 00 [facility] Branch Agoraphobi Agoraphobi Disease Active U nivers a a ity of [facility] Anxiety Anxiety Disease Active Univers ity of [facility] Depression Depression Disease Active U nivers ity of [facility] EtOH EtOH Disease Active Univers dependence dependence it y of [facility] H/O opioid H/O opioid Disease Active U nivers abuse abuse ity of [facility] Allergies, Adverse Reactions, Alerts Allergy Allergy Status Severity Reaction(s) Onset Inactive Treating Comm ents Source Name Type Date Date Clinician BUSPIRON DRUG Active High Hallucinates 2018-06 Un kendra E HCL INGREDI 2-20 ity of 00:00: [place] 00 [facility] Buspiron Propensi Active Hallucinatio 2018-06 Univers e Hcl ty to ns 2-20 ity of adverse 00:00: [place] reaction 00 Medical s to Branch drug DIVALPRO DRUG Active High Hallucinates 2018-06 Un kendra EX INGREDI 2-19 ity of SODIUM 00:00: [place] 00 [facility] Divalpro Drug Active Hallucinatio 2018-06 Un kendra ex Allergy ns 2-19 ity of Sodium 00:00: [place] 00 Medical Branch Social History Social Habit Start Date Stop Date Quantity Comments Source History SDOH University o f Alcohol Frequency [facility] edical Branch History SDLA University o f Alcohol Std [place] [facility] Drinks Branch History [facility] o f Alcohol Binge [place] [facility] al Branch Exposure to Not sure University of SARS-CoV-2 [place] [facility] (event) Branch Alcohol intake 2021-07-17 2021-07-17 Current drinker Unive rsity of 00:00:00 00:00:00 of alcohol [facility] (finding) [place] Alcohol Comment 2018-01-11 2018-01-11 1 glass or wine Univ ersity of 00:00:00 00:00:00 a month [facility] Sex Assigned At [birth year] Universit y of 00:00:00 00:00:00 [facility] Smoking Status Start Date Stop Date Source Current every day smoker 2021-02-01 00:00:00 Uni versity [facility] Medications Ordered Filled Start Stop Current Ordering Indication Dosage Frequency Signature Comments Components Source Medication Medication Date Date Medication? Clinician (SIG) Name Name metoprolol Yes [id number] 50mg Take 1 U nivers succinate 2-12 tablet by ity o f XL 50 mg 24 00:00: mouth [place] hr tablet 00 daily. Medical Branch insulin Yes [id number] 160 to Uni vers aspart 2-09 200, 1 u, ity of U-100 00:00: 201 to [place] (NOVOLOG 00 240, 2 u. Medica l FLEXPEN BG 241 to Branch U-100 280, 3 INSULIN) unit. BG 100 unit/mL 281 to (3 mL) 300, 4 injection units. BG > 300, 5 units, recheck in 3 hours and cover with s/s insulin Yes [id number] inject 20 Univers glargine 2-09 Units ity of (LANTUS 00:00: under the [place] U-100 00 skin twice Medical INSULIN) a day. Branch 100 unit/mL injection famotidine Yes [id number] 40mg Take 1 Univers (PEPCID) 40 2-09 tablet by ity of mg tablet 00:00: mouth [place] 00 daily. Medical Branch insulin Yes [id number] 160 to Uni vers aspart 2-09 200, 1 u, ity of U-100 00:00: 201 to [place] (NOVOLOG 00 240, 2 u. Medica l FLEXPEN BG 241 to Branch U-100 280, 3 INSULIN) unit. BG 100 unit/mL 281 to (3 mL) 300, 4 injection units. BG > 300, 5 units, recheck in 3 hours and cover with s/s insulin Yes [id number] inject 20 Univers glargine 2-09 Units ity of (LANTUS 00:00: under the [place] U-100 00 skin twice Medical INSULIN) a day. Branch 100 unit/mL injection famotidine Yes [id number] 40mg Take 1 Univers (PEPCID) 40 2-09 tablet by ity of mg tablet 00:00: mouth [place] 00 daily. Medical Branch LORazepam Yes [id number] 1mg Take 1 Un kendra (ATIVAN) 1 1-27 tablet by ity of mg tablet 00:00: mouth 2 (two) Medical times [place] daily as needed for Anxiety or Agitation. prazosin Yes [id number] 1mg Take 1 U nivers mg capsule 1-27 capsule by ity of 00:00: mouth at [place] 00 bedtime. Medical Branch LORazepam Yes [id number] 1mg Take 1 Un kendra (ATIVAN) 1 1-27 tablet by ity of mg tablet 00:00: mouth 2 [place] (two) Medical times [place] daily as needed for Anxiety or Agitation. prazosin 1 Yes [id number] 1mg Take 1 U nivers mg capsule 1-27 capsule by ity of 00:00: mouth at [place] 00 bedtime. Medical Branch LAMOTRIGINE Yes [id number] TAKE TWO Univers 100 mg 1-25 TABLETS BY ity of tablet 00:00: MOUTH [place] 00 DAILY Medical Branch LAMOTRIGINE 0 Yes [id number] TAKE TWO Univers 100 mg 1-25 TABLETS BY ity of tablet 00:00: MOUTH [place] 00 DAILY Medical Branch metoprolol 2020-06 Yes [id number] 50mg Take 1 U nivers succinate 1-07 tablet by ity o f XL 50 mg 24 00:00: mouth [place] hr tablet 00 daily. Medical Branch metoprolol 2020-06- No [id number] 50mg Take 1 Univers succinate 1-07 02-11 tablet by ity of XL 50 mg 24 00:00: 00:00 [place] hr tablet 00 :00 daily. Medical Branch Insulin Yes [id number] Use as Univ ers [place], 02-18 directed ity of Disposable, 00:00: [place] (NOVOFINE 00 [place] [address]) 32 Branch gauge x 1/4" Ndle Insulin Yes [id number] Use as Univ ers [place], 9 directed ity of Disposable, 00:00: [place] (NOVOFINE 00 Medical 32) 32 Branch gauge x 1/4" Ndle lipase-prot 2020- Yes [id number] 1{capsu Take 1 Univers ease-amylas 2-03 le} capsule by it y of e (CREON) 00:00: mouth 3 [place] 36,000-114, 00 (three) Medic al 000- times Branch 180,000 daily with unit CpDR meals. lipase-prot Yes [id number] 1{capsu Take 1 Univers ease-amylas 2-03 le} capsule by it y of e (CREON) 00:00: mouth 3 [place] 36,000-114, 00 (three) Medic al 000- times Branch 180,000 daily with unit CpDR meals. Insulin 2019-06 Yes Use to Univers Syringe-Nee 1-13 inject ity of dle U-100 1 00:00: insulin 4X [place] mL 31 gauge 00 daily. Medica l x 5/16 Syrg DX:K86.89 [facility] Insulin 2019-06 Yes Use to Univers Syringe-Nee 1-13 inject ity of dle U-100 1 00:00: insulin 4X [place] mL 31 gauge 00 daily. Medica l x 5/16 Syrg DX:K86.89 [facility] CONTOUR 2018-0 Yes [id number] Use to [facility] ers NEXT TEST 5-31 check ity of STRIPS 00:00: glucose 4X [place] strip 00 daily. Medical DX:E08.65 Branch CONTOUR 2018-0 Yes [id number] Use to [facility] ers NEXT TEST 5-31 check ity of STRIPS 00:00: glucose 4X [place] strip 00 daily. Medical DX:E08.65 Branch flash 2018-0 Yes [id number] 1{each} 1 Each Uni vers glucose 3-15 daily. Dx ity of scanning 00:00: 11.8, E [place] reader Misc 00 16.2, K Medic al 86.89 Branch flash 2019-0 Yes [id number] 1{each} 1 Each Uni vers glucose 3-15 every 10 ity of sensor Kit 00:00: (ten) [place] 00 days. Dx Medical 11.8, E Branch 16.2, K 86.89 flash 2019-0 Yes [id number] 1{each} 1 Each Uni vers glucose 3-15 daily. Dx ity of scanning 00:00: 11.8, E [place] reader Misc 00 16.2, K Medic al 86.89 Branch flash 2018-0 Yes [id number] 1{each} 1 Each Uni vers glucose 3-15 every 10 ity of sensor Kit 00:00: (ten) [place] 00 days. Dx Medical 11.8, E Branch 16.2, K 86.89 Blood-Gluco 2017- Yes Use as Univ ers se Meter 8-14 directed ity of (CONTOUR 00:00: [place] METER) [address] Blood-Gluco 2017- Yes Use as Univ ers se Meter 8-14 directed ity of (CONTOUR 00:00: [place] METER) [address] Immunizations Ordered Filled Immunization Date Status Comments [facility] Immunization Name Name TDAP 2021-03-01 Completed [facility] 00:00:00 [facility] TDAP 2021-03-01 Completed [facility] 00:00:00 [facility] Pfizer COVID-19 Pfizer COVID-19 2021-01-21 Completed Vaccine Vaccine 00:00:00 Pfizer COVID-19 Pfizer COVID-19 2020-07-20 Completed Vaccine Vaccine 00:00:00 SARS-COV-2 COVID-19 2020-07-20 Completed Unive rsity of PFIZER VACCINE 00:00:00 [facility] SARS-COV-2 COVID-19 2020-07-20 Completed Unive rsity of PFIZER VACCINE 00:00:00 [facility] Pfizer COVID-19 Pfizer COVID-19 2020-06-29 Completed Vaccine Vaccine 00:00:00 SARS-COV-2 COVID-19 2020-06-29 Completed Unive rsity of PFIZER VACCINE 00:00:00 [facility] SARS-COV-2 COVID-19 2020-06-29 Completed Unive rsity of PFIZER VACCINE 00:00:00 [facility] Influenza Virus 2018-04-12 Completed Universit y of Vaccine Quad .5 mL 00:00:00 [facility] IM 6+ MO [place] Influenza Virus 2018-04-12 Completed Universit y of Vaccine Quad .5 mL 00:00:00 [facility] IM 6+ MO [place] Influenza Virus 2014-04-12 Completed Universit y of Vaccine Quad IM 3+ 00:00:00 [facility] Influenza Virus 2014-04-12 Completed Universit y of Vaccine Quad IM 3+ 00:00:00 [facility] Pneumococcal 2013-04-22 Completed University o f Polysaccharide, 00:00:00 [place] Med ical PPSV23 (PNEUMOVAX) Branch Influenza Virus 2013-04-22 Completed Universit y of Vaccine (3+ yrs) 00:00:00 [facility] dical Branch Pneumococcal 2013-04-22 Completed University o f Polysaccharide, 00:00:00 [place] [facility] ical PPSV23 (PNEUMOVAX) Branch Influenza Virus 2013-04-22 Completed Universit y of Vaccine (3+ yrs) 00:00:00 [facility] This patient has no known procedures. Encounters Start End Encounter Admission Attending Care Care Encounter Source Date/Time Date/Time Type Type Clinicians Facility Department ID 2021-07-19 2021-07-19 Jasper Ellsworth [facility] [id number] Univers 00:00:00 00:00:00 Alexsandra PENA [id number] it y of [facility] [id number] Jon as PEDIATRIC [id number] [facility] AND [address] [place] [address] E CLINIC 2021-07-17 2021-07-17 Outpatient Abel ELLSWORTH [facility] [id number] Univers 10:00:00 10:00:00 ALEXSANDRA [id number] ity of [facility] 2021-07-17 2021-07-17 Cherry Ellsworth [facility] [id number] Univers 00:00:00 00:00:00 Alexsandra PENA [id number] it y of [facility] [id number] Jon as PEDIATRIC [phone] [address] E CLINIC 2021-01-21 2021-01-21 Outpatient GCCOVIDV GCCOVIDV [id number] GCCOVID 00:00:00 00:00:00 V 2020-07-20 2020-07-20 Outpatient GCCOVIDV GCCOVIDV [id number] GCCOVID 00:00:00 00:00:00 V 2020-06-29 2020-06-29 Outpatient GCCOVIDV GCCOVIDV [id number] GCCOVID 00:00:00 00:00:00 V 2020-02-20 2020-02-20 Jasper Goldman [facility] [id number] 00:00:00 00:00:00 Keshawn LEAGUE [id number] [facility] [id number] PEDIATRIC [phone] AND [facility] 2020-02-20 2020-02-20 [facility] [id number] 00:00:00 00:00:00 Wu SPECIALTY [id number] [facility] [id number] CENTER AT [phone] ANDREW Person2 [facility] 2020-02-19 2020-02-19 [facility] [id number] 00:00:00 00:00:00 Reading LEAGUE [id number] [facility] [id number] PEDIATRIC [phone] AND [facility] 2020-01-19 2020-01-19 [facility] [id number] 00:00:00 00:00:00 Keshawn LEAGUE [id number] [facility] [id number] PEDIATRIC [phone] AND [facility] 2019-08-04 2019-08-04 Outpatient SANDRA, [facility] [id number] [place] 00:00:00 00:00:00 JEAN PIERRE [id number] 2019-08-01 2019-08-01 Outpatient SANDRA, [facility] [id number] [place] 00:00:00 00:00:00 JEAN PIERRE [address] 2019-07-26 2019-07-28 Outpatient JULIANNE, [facility] [id number] [place] 00:00:00 00:00:00 DANIKA [address] 2019-07-25 2019-07-25 Emergency ANMOL, [facility] [id number] [place] 00:00:00 00:00:00 JANA [address] Results This patient has no known results.
[2021-07-30 01:55] LABS: RBC Red Blood Cell Count 4.92 M/uL (3.86-4.86)
[2021-07-30 01:56] LABS: Protime INR 1.01
[2021-07-30 01:59] LABS: Absolute Lymphocytes (CBC) 2.5 K/uL (0.7-4.9); Lymphocytes % 47.9 % (15.3-44.8); MPV 8.9 fL (7.6-11.3)
[2021-07-30 02:11] LABS: ALT/SGPT 27 U/L (12-78); AST/SGOT 20 U/L (15-37); Albumin 3.7 g/dL (3.4-5.0); Alkaline Phosphatase 94 U/L (45-117); BUN Blood Urea Nitrogen 24 mg/dL (7-18); Bicarbonate 27 mmol/L (21-32); Bilirubin Direct < 0.1 mg/dL (0-0.2); Bilirubin Total 0.4 mg/dL (0.2-1.0); Glucose Level 224 mg/dL (74-106); Potassium 3.5 mmol/L (3.5-5.1); Protein, Total 7.6 g/dL (6.4-8.2); Sodium Level 135 mmol/L (136-145)
[2021-07-30 03:40] LABS: Urine Blood 3+ (Negative); Urine Glucose Negative (Negative); Urine Protein 2+ (Negative); Urine Specific Gravity >=1.030 (1.005-1.030)
--- NOTE | 2021-07-30 04:08 | ER ---
Nurse's Notes [facility] Name: Pamela Richter Age: 40 yrs Sex: Female : 1980 Arrival Date: 07/30/2021 Time: 01: Bed 3 Private MD: Diagnosis: Poisoning by heroin, accidental (unintentional), initial encounter;Renal insufficiency;Hyperglycemia, unspecified Presentation: 07/30 01:26 Chief complaint: Patient states: she relapsed from heroin today. she says she put sm5 heroin in a syringe and inserted it into her rectum and took a xanax bar then only remembers waking up in the ambulance. Coronavirus screen: Vaccine status: Patient reports receiving the 2nd dose of the covid vaccine. Ebola Screen: No symptoms or risks identified at this time. Initial Sepsis Screen: Does the patient meet any 2 criteria? No. Patient's initial sepsis screen is negative. Does the patient have a suspected source of infection? No. Patient's initial sepsis screen is negative. Risk Assessment: Do you want to hurt yourself or someone else? Patient reports no desire to harm self or others. Onset of symptoms was July 30, 2021. 01:26 Method Of Arrival: EMS: [facility] 01:26 Acuity: MANDI 3 5 Triage Assessment: 01:30 General: Appears in no apparent distress. comfortable, slender, well groomed, Behavior st1 is calm, cooperative. Pain: Denies pain. 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 Historical: - Allergies: :28 No Known Allergies; sm5 - Home Meds: 01:28 Metoprolol Tartrate Oral [Active]; Novolog U-100 Insulin aspart 100 unit/mL sm5 subcutaneous soln [Active]; Lantus U-100 Insulin 100 unit/mL Sub-Q soln [Active]; Prilosec Oral [Active]; Lorazepam Oral [Active]; - PMHx: 01:31 Diabetes mellitus; Hypertensive disorder; Anxiety; sm5 - Immunization history:: Client reports receiving the 2nd dose of the Covid vaccine. - Social history:: Smoking status: Patient reports the use of cigarette tobacco products, smokes one pack cigarettes per day. Patient uses street drugs, heroin. Screenin:28 Abuse screen: Denies threats or abuse. Nutritional screening: No deficits noted. st1 Tuberculosis screening: No symptoms or risk factors identified. Fall Risk None identified. No fall in past 12 months (0 pts). No secondary diagnosis (0 pts). IV access (20 points). Ambulatory Aid- None/Bed Rest/Nurse Assist (0 pts). Gait- Normal/Bed Rest/Wheelchair (0 pts) Mental Status- Oriented to own ability (0 pts). Total Hung Fall Scale indicates No Risk (0-24 pts). Assessment: 01:43 Reassessment: Patient appears in no apparent distress at this time. Patient is alert, st1 oriented x 3, equal unlabored respirations, skin warm/dry/pink. Patient denies pain at this time. Patient states feeling better. Patient states symptoms have improved. General: Appears in no apparent distress. comfortable, slender, Behavior is calm, cooperative. Neuro: No deficits noted. Cardiovascular: No deficits noted. Musculoskeletal: No deficits noted. 04:15 Reassessment: No changes from previously documented assessment. [facility] Vital Signs: 01:26 BP 119 / 84; Pulse 94; Resp 9; Temp 98.3(O); Pulse Ox 100% on R/A; Weight 70.31 kg; 5 Height 5 ft. 7 in. (170.18 cm); 01:44 BP 119 / 82; Pulse 90; Resp 16; Pulse Ox 100% on R/A; st1 03:00 BP 107 / 74; Pulse 84; Resp 14; Pulse Ox 99% on R/A; st1 04:15 BP 110 / 69; Pulse 82; Resp 16; Pulse Ox 100% ; 5 01:26 Body Mass Index 24.28 (70.31 kg, 170.18 cm) 5 Delores Coma Score: 01:30 Eye Response: spontaneous(4). Verbal Response: oriented(5). Motor Response: obeys 5 commands(6). Total: 15. ED Course: 01:26 Patient arrived in ED. 5 01:28 Triage completed. 5 01:28 Inserted saline lock: 20 gauge in right antecubital area, using aseptic technique. st1 01:29 Patient has correct armband on for positive identification. Bed in low position. Call st1 light in reach. Side rails up X 1. patient monitor on. Pulse ox on. NIBP on. Warm blanket given. Verbal reassurance given. 01:31 Arm band placed on right wrist. st1 01:33 Vijay Hickman MD is Attending Physician. kdr 01:34 Irais Montes De Oca, RN is Primary Nurse. st1 01:43 Basic Metabolic Panel Sent. st1 01:43 CBC with Diff Sent. st1 01:43 Acetaminophen Sent. st1 01:43 ETOH Level Sent. st1 01:43 Salicylate Sent. st1 01:43 Hepatic Function Sent. st1 01:43 PT-INR Sent. st1 01:43 Ptt, Activated Sent. st1 01:44 No provider procedures requiring assistance completed. st1 03:43 Urine Drug Screen Sent. st1 04:15 IV discontinued, intact, bleeding controlled, No redness/swelling at site. Pressure st1 dressing applied. Administered Medications: No medications were administered Outcome: 04:08 Discharge ordered by MD. kdr 04:15 Discharged to home ambulatory, with friend. st1 04:15 Condition: stable 04:15 Discharge instructions given to patient, friend, Instructed on discharge instructions, follow up and referral plans. Demonstrated understanding of instructions, follow-up care. 04:16 Patient left the ED. st1 Signatures: Vijay Hickman MD MD kdr Hayley Crane RN RN [facility] Irais Montes De Oca, CONOR RN st1 Corrections: (The following items were deleted from the chart) 01:30 01:26 Chief complaint: Patient states: she relapsed from heroin today. she says she put sm5 heroin in a syringe and inserted it into her rectum then only remembers waking up in the ambulance sm5
[2021-07-30 04:09] LABS: Barbiturates NEGATIVE (NEGATIVE); Benzodiazepines POSITIVE (NEGATIVE); Cocaine NEGATIVE (NEGATIVE); METHAMPHETAM POSITIVE (NEGATIVE); Methadone POSITIVE (NEGATIVE); Opiates POSITIVE (NEGATIVE); Phencyclidine NEGATIVE (NEGATIVE); THC Cannibis POSITIVE (NEGATIVE)
--- NOTE | 2021-07-30 04:09 | EDPHYS ---
Physician Documentation [facility] Name: Pamela Richter Age: 40 yrs Sex: Female : 1980 Arrival Date: 07/30/2021 Time: 01: Bed 3 Private MD: ED Physician Vijay Hickman HPI: 07/30 01:44 This 40 yrs old Female presents to ER via EMS with complaints of Possible Drug Abuse. kdr 01:44 The patient presents with decreased mental status, decreased responsiveness. Onset: The kdr symptoms/episode began/occurred suddenly, just prior to arrival. Possible causes: drug use, Heroin. Associated signs and symptoms: Pertinent positives: confusion. Current symptoms: In the emergency department the patient's symptoms have resolved. Patient's baseline: Neuro: alert and fully oriented, Motor: no deficits, Ambulation: walks without assistance, Speech: normal, The patient has a previous history of Drug use. The patient has experienced similar episodes in the past, a few times. The patient has not recently seen a physician. The patient states that she was walking her dog and she had a small amount of heroin. The next thing she knows she woke up in the back of the ambulance was a woman talking to her asking her name. She indicated that she had inserted the heroin into her rectum prior to losing consciousness. She states that she took the heroin because she was having menstrual cramps. At present the menstrual cramps seem to have resolved. CHANGE PERSON: 01:30 LMP 07/29/2021 st1 01:30 LMP 07/30/2021 sm5 Historical: - Allergies: 01:28 No Known Allergies; sm5 - Home Meds: 01:28 Metoprolol Tartrate Oral [Active]; Novolog U-100 Insulin aspart 100 unit/mL sm5 subcutaneous soln [Active]; Lantus U-100 Insulin 100 unit/mL Sub-Q soln [Active]; Prilosec Oral [Active]; Lorazepam Oral [Active]; - PMHx: 01:31 Diabetes mellitus; Hypertensive disorder; Anxiety; sm5 - Immunization history:: Client reports receiving the 2nd dose of the Covid vaccine. - Social history:: Smoking status: Patient reports the use of cigarette tobacco products, smokes one pack cigarettes per day. Patient uses street drugs, heroin. ROS: 01:44 Constitutional: Negative for fever, chills, and weight loss, Eyes: Negative for injury, kdr pain, redness, and discharge, ENT: Negative for injury, pain, and discharge, Neck: Negative for injury, pain, and swelling, Cardiovascular: Negative for chest pain, palpitations, and edema, Respiratory: Negative for shortness of breath, cough, wheezing, and pleuritic chest pain, Abdomen/GI: Negative for abdominal pain, nausea, vomiting, diarrhea, and constipation, Back: Negative for injury and pain, : Negative for injury, bleeding, discharge, and swelling, MS/Extremity: Negative for injury and deformity, Skin: Negative for injury, rash, and discoloration, Psych: Negative for depression, anxiety, suicide ideation, homicidal ideation, and hallucinations, Allergy/Immunology: Negative for hives, rash, and allergies, Endocrine: Negative for neck swelling, polydipsia, polyuria, polyphagia, and marked weight changes, Hematologic/Lymphatic: Negative for swollen nodes, abnormal bleeding, and unusual bruising. 01:44 Neuro: Positive for altered mental status, loss of consciousness, Negative for headache, seizure activity, speech changes, syncope, near syncope, tinnitus, tremor, visual changes, weakness. Exam: 01:44 Constitutional: This is a well developed, well nourished patient who is awake, alert, kdr and in no acute distress. Head/Face: Normocephalic, atraumatic. Eyes: Pupils equal round and reactive to light, extra-ocular motions intact. Lids and lashes normal. Conjunctiva and sclera are non-icteric and not injected. Cornea within normal limits. Periorbital areas with no swelling, redness, or edema. Chest/axilla: Normal chest wall appearance and motion. Nontender with no deformity. No lesions are appreciated. Cardiovascular: Regular rate and rhythm with a normal S1 and S2. No gallops, murmurs, or rubs. Normal PMI, no JVD. No pulse deficits. Respiratory: Lungs have equal breath sounds bilaterally, clear to auscultation and percussion. No rales, rhonchi or wheezes noted. No increased work of breathing, no retractions or nasal flaring. Abdomen/GI: Soft, non-tender, with normal bowel sounds. No distension or tympany. No guarding or rebound. No evidence of tenderness throughout. Back: No spinal tenderness. No costovertebral tenderness. Full range of motion. Skin: Warm, dry with normal turgor. Normal color with no rashes, no lesions, and no evidence of cellulitis. MS/ Extremity: Pulses equal, no cyanosis. Neurovascular intact. Full, normal range of motion. Neuro: Awake and alert, GCS 15, oriented to person, place, time, and situation. Cranial nerves II-XII grossly intact. Motor strength 5/5 in all extremities. Sensory grossly intact. Cerebellar exam normal. Normal gait. Psych: Awake, alert, with orientation to person, place and time. Behavior, mood, and affect are within normal limits. Vital Signs: 01:26 BP 119 / 84; Pulse 94; Resp 9; Temp 98.3(O); Pulse Ox 100% on R/A; Weight 70.31 kg; sm5 Height 5 ft. 7 in. (170.18 cm); 01:44 BP 119 / 82; Pulse 90; Resp 16; Pulse Ox 100% on R/A; st1 03:00 BP 107 / 74; Pulse 84; Resp 14; Pulse Ox 99% on R/A; st1 04:15 BP 110 / 69; Pulse 82; Resp 16; Pulse Ox 100% ; sm5 01:26 Body Mass Index 24.28 (70.31 kg, 170.18 cm) sm5 Delores Coma Score: 01:30 Eye Response: spontaneous(4). Verbal Response: oriented(5). Motor Response: obeys sm5 commands(6). Total: 15. MDM: 01:44 Data reviewed: vital signs, nurses notes, lab test result(s). Counseling: I had a kdr detailed discussion with the patient and/or guardian regarding: the historical points, exam findings, and any diagnostic results supporting the discharge/admit diagnosis, lab results. 04:08 Patient medically screened. kdr 07/30 01:34 Order name: Acetaminophen kdr 07/30 01:34 Order name: Basic Metabolic Panel; Complete Time: 03:59 kdr 07/30 01:34 Order name: CBC with Diff; Complete Time: 03:59 kdr 07/30 01:34 Order name: ETOH Level; Complete Time: 03:59 kdr 07/30 01:34 Order name: Hepatic Function; Complete Time: 03:59 kdr 07/30 01:34 Order name: PT-INR; Complete Time: 03:59 kdr 07/30 01:34 Order name: Ptt, Activated; Complete Time: 03:59 kdr 07/30 01:34 Order name: Salicylate; Complete Time: 03:59 kdr 07/30 01:34 Order name: Urine Drug Screen kdr 07/30 01:34 Order name: IV Saline Lock; Complete Time: 01:35 kdr 07/30 01:34 Order name: Labs collected and sent; Complete Time: 01:35 kdr 07/30 01:34 Order name: Suicide Screening ([place]); Complete Time: 02:27 kdr 07/30 01:35 Order name: Acetaminophen Level; Complete Time: 03:59 EDMS 07/30 03:40 Order name: Urine Dipstick-Ancillary EDMS 07/30 01:34 Order name: Urine Dipstick-Ancillary (obtain specimen); Complete Time: 03:43 kdr Administered Medications: No medications were administered Disposition Summary: 07/30/21 04:08 Discharge Ordered Location: Home kdr Problem: new kdr Symptoms: have improved kdr Condition: Stable kdr Diagnosis - Poisoning by heroin, accidental (unintentional), initial encounter kdr - Renal insufficiency kdr - Hyperglycemia, unspecified kdr Followup: kdr - With: Private Physician - When: 2 - 3 days - Reason: If symptoms return, Further diagnostic work-up, Recheck today's complaints, Continuance of care, Re-evaluation by your physician Discharge Instructions: - Discharge Summary Sheet kdr - Opioid Overdose kdr - Accidental Drug Poisoning, Adult kdr - Blood Glucose Monitoring, Adult kdr - Hyperglycemia, Hugw-lz-Hlth kdr - Chronic Kidney Disease, Adult, Efdm-[id number]-Nldp kdr Forms: - Medication Reconciliation Form kdr - Thank You Letter kdr Signatures: Dispatcher [employer] Vijay oLngoria MD MD kdr Hayley Crane, RN RN sm5
[2021-07-30 04:22] VITALS: TEMP 98.3
[2021-07-30 04:26] VITALS: BP 110/69; O2SAT 100
== END 2021-07-30 04:16 | disposition home or self-care (01) ==
LOC: ER 01:25
DX: T40.1X1A Poisoning by heroin, accidental (unintentional), initial encounter (principal); E11.65 Type 2 diabetes mellitus with hyperglycemia; N28.9 Disorder of kidney and ureter, unspecified; F41.9 Anxiety disorder, unspecified; I10 Essential (primary) hypertension; F17.210 Nicotine dependence, cigarettes, uncomplicated; Z79.4 Long term (current) use of insulin
CPT/HCPCS: 36415; 80048; 80076; 80307; 80320; 80329; 81003; 85025; 85610; 85730; 99284

== ENCOUNTER 2021-10-01 19:37 | Emergency (ER) | payer MEDICARE ==
--- OUTSIDE RECORDS SUMMARY | 2021-10-01 19:41 | XMS REPORT | Continuity of Care Document ---
:1980 Author Organization [facility] t Address [address] [place] [address] Care Team Providers Name Role Phone SANJUANITA ELLSWORTH Primary Care Physician Unavailable ROSANA Attending Clinician Unavailable JACQUELIN Attending Clinician Unavailable Kalani MEDINA Attending Clinician Unavailable Doctor Unassigned, Name Attending Clinician Unavailable Sanjuanita Ellsworth MD Attending Clinician Jone Goldman MD Attending Clinician Zoey ADLER Attending Clinician SANDRA Attending Clinician Unavailable JULIANNE Attending Clinician Unavailable ANMOL Attending Clinician Unavailable JULIANNE Admitting Clinician Unavailable Payers Payer Name Policy Type Policy Number Effective Date Expiration Date S ource HIM BCBS BLUE [id number] 2016 ADVANTAGE O 00:00:00 [facility] [id number] 2018 HEALTH 00:00:00 Problems Condition Condition Condition Status Onset Resolution Last Treating Co mments Source Name Details Category Date Date Treatment Clinician Date Diabetes Diabetes Disease Active Unive rs mellitus mellitus 6-08 [place] 00 Medical pancreatic pancreatic Br anch disease disease Tachycardi Tachycardi Disease Active U nivers a a 6-08 ity of 00:00: [place] [id number] Medical Branch Diaphoresi Diaphoresi Disease Active U nivers s s 6-08 ity of 00:00: [place] 00 [facility] PTSD PTSD Disease Active Univers (post-trau (post-trau 3-18 it y of matchetna matic 00:00: [place] stress stress 00 Medical disorder) disorder) Bran ch Bipolar 1 Bipolar 1 Disease Active Uni vers disorder disorder 2-04 ity of 00:00: [place] [facility] Drug-seeki Drug-seeki Disease Active 2013-06 U nivers ng ng 1-05 ity of behavior behavior 00:00: [place] [facility] Chronic Chronic Disease Active 2013-06 Univers pancreatit pancreatit 1-04 it y of is is 00:00: [place] [facility] Necrotizin Necrotizin Disease Active U nivers g g 5 ity of pancreatit pancreatit [place] [facility] Pancreatit Pancreatit Disease Active U nivers is is 10-11 ity of 00:00: [place] 00 [facility] Agoraphobi Agoraphobi Disease Active U nivers a a ity of [facility] Anxiety Anxiety Disease Active Univers ity of [facility] Depression Depression Disease Active U nivers ity of [facility] EtOH EtOH Disease Active Univers dependence dependence it y of [facility] H/O opioid H/O opioid Disease Active U nivers abuse abuse ity of [facility] Allergies, Adverse Reactions, Alerts Allergy Allergy Status Severity Reaction(s) Onset Inactive Treating Comm ents Source Name Type Date Date Clinician BUSPIRON DRUG Active High Hallucinates 2018-06 Un kendra E HCL INGREDI 2-20 ity of 00:00: [place] 00 [facility] Buspiron Propensi Active Hallucinatio 2018-06 Univers e Hcl ty to ns 2-20 ity of adverse 00:00: [place] reaction 00 Medical to [place] drug DIVALPRO DRUG Active High Hallucinates 2018-06 Un kendra EX INGREDI 2-19 ity of SODIUM 00:00: [place] 00 [facility] Divalpro Drug Active Hallucinatio 2018-06 Un kendra ex Allergy ns 2-19 ity of Sodium 00:00: [address] Family History Family Member Diagnosis Comments Start Date Stop Date Source Natural father Hypertension Universi ty [facility] Natural mother Hypertension Universi ty [facility] Social History Social Habit Start Date Stop Date Quantity Comments Source History [facility] o f Alcohol Frequency [place] M edical Branch History [facility] o f Alcohol Std [place] Medical Drinks Branch History [facility] o f Alcohol Binge [place] Medic al Branch Exposure to Not sure University of SARS-CoV-2 [facility] (event) Branch Alcohol intake 2021-08-29 2021-08-29 Current drinker Unive rsity of 00:00:00 00:00:00 of alcohol [facility] (finding) Branch Alcohol Comment 2018-01-11 2018-01-11 1 glass or wine Univ ersity of 00:00:00 00:00:00 a month [facility] Sex Ass[birth year] At [birth year] Universit y of 00:00:00 00:00:00 [facility] Smoking Status Start Date Stop Date Source Current every day smoker 2021-02-01 00:00:[address] [facility] Medications Ordered Filled Start Stop Current Ordering Indication Dosage Frequency Signature Comments Components Source Medication Medication Date Date Medication? Clinician (SIG) Name Name LORazepam Yes [id number] 1mg Take 1 Un kendra (ATIVAN) 1 3-31 tablet by ity of mg tablet 00:00: mouth 2 [place] 00 (two) Medical times Branch daily as needed for Anxiety or Agitation. lamoTRIgine Yes [id number] 200mg Take 2 Univers 100 mg 3-30 tablets by ity of tablet 00:00: mouth [place] 00 daily. Medical Branch prazosin 1 Yes [id number] 1mg Take 1 U nivers mg capsule 3-30 capsule by ity of 00:00: mouth at [place] 00 bedtime. Medical Branch Insulin Yes [id number] Use to Uni vers Syringe-Nee 08-07 inject ity of dle U-100 1 00:00: insulin 4X [place] mL 31 gauge 00 daily. Medica l x 16 Syrg DX:K86.89 Bra [facility] Insulin Yes [id number] Use as Univ ers [place], 08-06 directed ity of Disposable, 00:00: [place] (NOVOFINE 00 Medical 32) 32 Branch gauge x 1/4" Ndle LORazepam 2021- No [id number] 1mg Take 1 U nivers (ATIVAN) 1 3- 03-30 tablet by ity of mg tablet 00:00: 00:00 mouth [place] :[place] (two) Medical times Branch daily as needed for Anxiety or Agitation. lamoTRIgine 2021- No [id number] 200mg Take 2 Univers 100 mg 08-06-30 tablets by ity of tablet 00:00: 00:00 mouth [place] 00 :00 daily. Medical Branch prazosin 1 2021- No [id number] 1mg Take 1 Univers mg capsule 08-0630 capsule by it y of 00:00: 00:00 mouth at [place] 00 :00 bedtime. Medical Branch metoprolol Yes [id number] 50mg Take 1 U nivers succinate 2-12 tablet by ity o f XL 50 mg 24 00:00: mouth [place] hr tablet 00 daily. Medical Branch insulin Yes [id number] 160 to Uni vers aspart 2-09 200, 1 u, ity of U-100 00:00: 201 to [place] (NOVOLOG 00 240, 2 u. Medica l FLEXPEN BG 241 to Branch U-100 280, 3 INSULIN) unit. BG 100 unit/mL 281 to (3 mL) 300, 4 injection units. BG > 300, 5 units, recheck in 3 hours and cover with s/s insulin Yes [id number] inject 20 Univers glargine 2-09 Units ity of (LANTUS 00:00: under the [place] U-100 00 skin twice Medical INSULIN) a day. Branch 100 unit/mL injection famotidine Yes [id number] 40mg Take 1 Univers (PEPCID) 40 2-09 tablet by ity of mg tablet 00:00: mouth [place] 00 daily. Medical Branch lipase-prot Yes [id number] 1{capsu Take 1 Univers ease-amylas 2-03 le} capsule by it y of e (CREON) 00:00: mouth 3 [place] 36,000-114, 00 (three) Medic al 000- times [place] 180,000 daily with unit CpDR meals. CONTOUR Yes [id number] Use to [facility] ers NEXT TEST 5-31 check ity of STRIPS 00:00: glucose 4X [place] strip 00 daily. Medical DX:E08.65 Branch flash Yes [id number] 1{each} 1 Each Uni vers glucose 3-15 daily. Dx ity of scanning 00:00: 11.8, E [place] reader [facility] 00 16.2, K Medic al 86.89 Branch flash 2019-0 Yes [id number] 1{each} 1 Each Uni vers glucose 3-15 every 10 ity of sensor Kit 00:00: (ten) [place] 00 days. Dx Medical 11.8, E Branch 16.2, K 86.89 Blood-Gluco 2018-0 Yes Use as Univ ers se Meter 8-14 directed ity of (CONTOUR 00:00: [place] METER) [facility] 00 Medical [place] Immunizations Ordered Filled Immunization Date Status Comments [facility] e Immunization Name Name TDAP 2021-03-01 Completed University of 00:00:00 [facility] Pfizer COVID-19 Pfizer COVID-19 2021-01-21 Completed Vaccine Vaccine 00:00:00 SARS-COV-2 COVID-19 2020-07-20 Completed Unive rsity of PFIZER VACCINE 00:00:00 [facility] Pfizer COVID-19 Pfizer COVID-19 2020-07-20 Completed Vaccine Vaccine 00:00:00 SARS-COV-2 COVID-19 2020-06-29 Completed Unive rsity of PFIZER VACCINE 00:00:00 [facility] Pfizer COVID-19 Pfizer COVID-19 2020-06-29 Completed Vaccine Vaccine 00:00:00 Influenza Virus 2018-04-12 Completed Universit y of Vaccine Quad .5 mL 00:00:00 [facility] IM 6+ MO [place] Influenza Virus 2014-04-12 Completed Universit y of Vaccine Quad IM 3+ 00:00:00 [facility] YRS Branch Pneumococcal 2013-04-22 Completed University o f Polysaccharide, 00:00:00 [facility] [facility] ical PPSV23 (PNEUMOVAX) [place] Influenza Virus 2013-04-22 Completed Universit y of Vaccine (3+ yrs) 00:00:00 [facility] dical [place] Vital Signs Vital Name Observation Time Observation Value Comments Source Systolic blood 2021-08-29 14:20:00 123 mm[Hg] Univer sity of pressure [facility] Diastolic blood 2021-08-29 14:20:00 85 mm[Hg] Unive rsity of pressure [facility] Heart rate 2021-08-29 14:20:00 92 /min Universi ty of [facility] Respiratory rate 2021-08-29 14:20:00 18 /min [facility] Body height 2021-08-29 14:20:00 170.2 cm [facility] Body weight 2021-08-29 14:20:00 68.04 kg [facility] BMI 2021-08-29 14:20:00 23.49 kg/m2 [facility] Body temperature 2021-07-17 17:07:00 35.94 Sabrina [facility] Oxygen saturation in 2021-07-17 17:07:00 99 /min [facility] Arterial blood by [facility] Pulse oximetry [place] Procedures Procedure Date / Time Performed Performing Clinician Sourc e POCT HEMOGLOBIN A1C 2021-07-17 00:00:00 Alexsandra Ellsworth [facility] Encounters Start End Encounter Admission Attending Care Care Encounter Source Date/Time Date/Time Type Type Clinicians Facility Department ID 2021-12-27 2021-12-27 Outpatient Abel [facility] [id number] Univers 15:00:00 15:00:00 GABRIELA [id number] [facility] 2021-09-30 2021-09-30 Outpatient Abel [facility] [id number] Univers 14:00:00 14:00:00 MONIQUE [id number] [facility] 2021-09-30 2021-09-30 Outpatient Abel [facility] [id number] Univers 14:00:00 14:00:00 MONIQUE [facility] 2021-09-11 2021-09-11 Outpatient Abel MED[facility] [id number] Univers 14:00:00 14:00:00 NETO [facility] [place] [facility] 2021-09-05 2021-09-05 Patient Doctor 1.2.840.8 [id number] Univers 00:00:00 00:00:00 Secure Msg Unassigned, 05479.1.1 ity of [place] 3.104.2.7 [place] .3.308178 Medica l .8 Branch 2021-09-04 2021-09-04 Jasper Ellsworth, Isela.2.840.3 [id number] Univers 00:00:00 00:00:00 Alexsandra 43580.1.1 ity of [place] 3.104.2.7 [place] .3.847507 Medica l .8 Branch 2021-08-29 2021-08-29 Travel 1.2.840.1 [id number] [id number] Univers 00:00:00 00:00:00 45758.1.1 350.1.13.10 ity of 3.104.2.7 4.2.7.3.698 [place] .3.889187 084.8 Medica l .8 Branch 2021-08-06 2021-08-06 Travel 1.2.840.1 1.2.033.039 [id number] Univers 00:00:00 00:00:00 26631.1.1 350.1.13.10 ity of 3.104.2.7 4.2.7.3.698 [place] .3.598505 084.8 Medica l .8 Branch 2021-08-04 2021-08-04 Refill Ellsworth, 1.2.840.3 [id number] Univers 00:00:00 00:00:00 Alexsandra 36360.1.1 ity of [place] 3.104.2.7 [place] .3.445078 Medica l .8 Branch 2021-08-04 2021-08-04 Refill Doctor 1.2.840.4 [id number] Univers 00:00:00 00:00:00 Unassigned, 28694.1.1 ity of [place] 3.104.2.7 [place] .3.189634 Medica l .8 Branch 2021-08-04 2021-08-04 Refill Ellsworth, 1.2.840.9 [id number] Univers 00:00:00 00:00:00 Alexsandra 97272.1.1 ity of [place] 3.104.2.7 [place] .3.479350 Medica l .8 Branch 2021-08-04 2021-08-04 Refill Doctor 1.2.840.9 [id number] Univers 00:00:00 00:00:00 Unassigned, 29305.1.1 ity of [place] 3.104.2.7 [place] .3.780602 Medica l .8 Branch 2021-07-19 2021-07-19 Refill Ellsworth, 1.2.840.7 [id number] Univers 00:00:00 00:00:00 Alexsandra 41900.1.1 ity of [place] 3.104.2.7 [place] .3.541682 Medica l .8 Branch 2021-07-17 2021-07-17 Office Ellsworth, 1.2.840.1 [id number] Univers 11:00:00 11:20:00 Visit Alexsandra 15579.1.1 ity of [place] 3.104.2.7 [place] .3.384794 Medica l .8 Branch 2021-07-17 2021-07-17 Telephone Ellsworth, 1.2.840.6 [id number] Univers 00:00:00 00:00:00 Alexsandra 14420.1.1 ity of [place] 3.104.2.7 [place] .3.003383 Medica l .8 Branch 2021-07-17 2021-07-17 Travel 1.2.840.1 1.2.982.383 [id number] Univers 00:00:00 00:00:00 94355.1.1 350.1.13.10 ity of 3.104.2.7 4.2.7.3.698 [place] .3.890703 084.8 Medica l .8 Branch 2021-07-15 2021-07-15 Travel 1.2.840.1 1.2.608.216 [id number] Univers 00:00:00 00:00:00 33006.1.1 350.1.13.10 ity of 3.104.2.7 4.2.7.3.698 [place] .3.601525 084.8 Medica l .8 Branch 2021-07-04 2021-07-04 Telephone Ellsworth, 1.2.840.9 [id number] Univers 00:00:00 00:00:00 Alexsandra 47538.1.1 ity of [place] 3.104.2.7 [place] .3.874505 Medica l .8 Branch 2021-07-03 2021-07-03 Patient Doctor 1.2.840.4 [id number] Univers 00:00:00 00:00:00 Secure Msg Unassigned, 23429.1.1 ity of [place] 3.104.2.7 [place] .3.597259 Medica l .8 Branch 2021-06-29 2021-06-29 Telephone Ellsworth, 1.2.840.5 [id number] Univers 00:00:00 00:00:00 Alexsandra 96138.1.1 ity of [place] 3.104.2.7 [place] .3.801231 Medica l .8 Branch 2021-06-14 2021-06-14 Patient Doctor 1.2.840.8 [id number] Univers 00:00:00 00:00:00 Secure Msg Unassigned, 01389.1.1 ity of [place] 3.104.2.7 [place] .3.634008 Medica l .8 Branch 2021-01-21 2021-01-21 Outpatient GCCOVIDV GCCOVIDV [id number] [facility]OVID 00:00:00 00:00:00 V 2020-07-20 2020-07-20 Outpatient GCCOVIDV GCCOVIDV [id number] [facility] 00:00:00 00:00:00 V 2020-06-29 2020-06-29 Outpatient GCCOVIDV GCCOVIDV [id number] [facility] 00:00:00 00:00:00 V 2020-02-20 2020-02-20 NANCY Yip 1.2.306.611 [id number] 00:00:00 00:00:00 Keshawn PENA 350.1.13.10 [facility] 4.2.7.2.686 PEDIATRIC [id number] AND [address] [place] [address] 2020-02-20 2020-02-20 NANCY [place] 1.2.840.114 [id number] 00:00:00 00:00:00 Wu SPECIALTY 350.1.13.10 [facility] 4.2.7.2.686 CENTER AT [id number] ANDREW Schuler [facility] 2020-02-19 2020-02-19 [facility] 1.2.878.737 [id number] 00:00:00 00:00:00 Keshawn LEAGUE 350.1.13.10 [facility] 4.2.7.2.686 PEDIATRIC [id number] [facility] 2020-01-19 2020-01-19 [facility] 1.2.270.450 [id number] 00:00:00 00:00:00 Keshawn LEROSEMARY 350.1.13.10 [facility] 4.2.7.2.686 PEDIATRIC [id number] [facility] 2019-08-04 2019-08-04 [id number] [place] 00:00:00 00:00:00 JEAN PIERRE [address] 2019-08-01 2019-08-01 [id number] [place] 00:00:00 00:00:00 JEAN PIERRE [address] 2019-07-26 2019-07-28 [id number] [place] 00:00:00 00:00:00 DANIKA [address] 2019-07-25 2019-07-25 [id number] [place] 00:00:00 00:00:00 JANA [address] Results Test Description Test Time Test Comments Results Result Comments Source POCT HEMOGLOBIN A1C TEST 2021-07-17 17:54:00 Test Item Value Reference Range Interpretation Comme nts POCT HBA1C (test code = 4548-4) 8.3 % 4-6 A Lab Interpretation (test code = 03873-6) Abnormal [facility]
[2021-10-01 20:39] LABS: Urine Blood Negative (Negative); Urine Glucose 2+ (Negative); Urine Protein Negative (Negative); Urine Specific Gravity >=1.030 (1.005-1.030); Urine pH 5.5 (5.0-7.0)
[2021-10-01] MEDS ORDERED: NA CHLORIDE 0.9% 1,000 ML ONE (20:47)
[2021-10-01 21:54] LABS: Urine Bacteria >50 /HPF (<20); Urine RBC NONE SEEN /HPF (NONE SEEN)
[2021-10-01 21:55] LABS: Hematocrit 45.7 % (36.0-45.0); Lymphocytes % 31.8 % (15.3-44.8); MPV 9.1 fL (7.6-11.3); RBC Red Blood Cell Count 5.29 M/uL (3.86-4.86)
[2021-10-01 21:56] LABS: ALT/SGPT 23 U/L (12-78); AST/SGOT 15 U/L (15-37); Albumin 4.4 g/dL (3.4-5.0); Alkaline Phosphatase 97 U/L (45-117); BUN Blood Urea Nitrogen 16 mg/dL (7-18); Bicarbonate 29 mmol/L (21-32); Bilirubin Total 0.6 mg/dL (0.2-1.0); Glucose Level 314 mg/dL (74-106); Lipase 134 U/L (73-393); Potassium 3.9 mmol/L (3.5-5.1); Protein, Total 8.6 g/dL (6.4-8.2); Sodium Level 132 mmol/L (136-145)
[2021-10-01] MEDS ORDERED: NA CHLORIDE 0.9% 50 ML ONE (22:14)
[2021-10-01] MEDS ORDERED: CEFTRIAXONE 1000 MG/VIAL ONE (22:14)
[2021-10-01 22:31] LABS: SARS-COV-2 RT PCR NEGATIVE (NEGATIVE)
--- NOTE | 2021-10-01 23:01 | EDPHYS ---
Physician Documentation [facility] Name: Pamela Richter Age: 41 yrs Sex: Female : 1980 Arrival Date: 10/01/2021 Time: 19:40 Bed 8 Private MD: ED Physician Orion Cook HPI: 10/01 20:25 This 41 yrs old Female presents to ER via Ambulatory with complaints of High Blood cp Sugar. 20:25 The patient or guardian reports hyperglycemia, that was potentially precipitated by no cp particular event. 20:25 Onset: The symptoms/episode began/occurred 1 week(s) ago. Associated signs and cp symptoms: Pertinent positives: palpitations, pain to right low back, Pertinent negatives: diarrhea, vomiting, fever. Current symptoms: In the emergency department the patient's symptoms are unchanged from the initial presentation, despite home interventions. RN HOSPICE: 20:00 LMP N/A - Irregular menses lp1 Historical: - Allergies: 19:58 No Known Allergies; lp1 - Home Meds: 19:58 Lantus U-100 Insulin 100 unit/mL Sub-Q soln [Active]; Metoprolol Tartrate Oral lp1 [Active]; Novolog U-100 Insulin aspart 100 unit/mL Sub-Q soln [Active]; - PMHx: 19:58 Anxiety; diabetes mellitus; Hypertensive disorder; lp1 - PSHx: 19:58 None; lp1 - Immunization history:: Adult Immunizations up to date. - Social history:: Smoking status: Patient reports the use of cigarette tobacco products, smokes one-half pack cigarettes per day. ROS: 20:30 Constitutional: Negative for body aches, chills, fever. cp 20:30 Eyes: Negative for injury, pain, redness, and discharge. cp 20:30 Cardiovascular: Positive for palpitations, Negative for chest pain. 20:30 Respiratory: Positive for cough, with no reported sputum, Negative for shortness of breath, wheezing. 20:30 ENT: Negative for drainage from ear(s), ear pain, sore throat, difficulty swallowing, cp difficulty handling secretions. 20:30 Neck: Negative for pain with movement, pain at rest, stiffness. 20:30 Abdomen/GI: Negative for abdominal pain, nausea, vomiting, and diarrhea, constipation. 20:30 Back: Positive for pain at rest, of the right mid back and right low back, Negative for injury or acute deformity. 20:30 Neuro: Negative for altered mental status, headache, weakness. cp 20:30 All other systems are negative. Exam: 20:33 ECG was reviewed by the Attending Physician. cp 20:35 Constitutional: The patient appears in no acute distress, alert, awake, cp non-diaphoretic, non-toxic, well developed, well nourished. 20:35 Head/Face: Normocephalic, atraumatic. cp 20:35 Eyes: Periorbital structures: appear normal, Conjunctiva: normal, no exudate, no injection, Sclera: no appreciated abnormality, Lids and lashes: appear normal, bilaterally. 20:35 ENT: External ear(s): are unremarkable, Nose: is normal, Mouth: Lips: moist, Oral mucosa: pink and intact, moist, Posterior pharynx: Airway: no evidence of obstruction, patent. 20:35 Neck: ROM/movement: is normal, is supple, without pain, no range of motions limitations. 20:35 Chest/axilla: Inspection: normal, Palpation: is normal, no crepitus, no tenderness. 20:35 Cardiovascular: Rate: normal, Rhythm: regular, Edema: is not appreciated, JVD: is not appreciated. 20:35 Respiratory: the patient does not display signs of respiratory distress, Respirations: normal, no use of accessory muscles, no retractions, labored breathing, is not present, Breath sounds: are clear throughout, no decreased breath sounds, no stridor, no wheezing. 20:35 Abdomen/GI: Inspection: abdomen appears normal, Bowel sounds: active, all quadrants, Palpation: abdomen is soft and non-tender, in all quadrants. 20:35 Back: pain, that is very mild, of the right mid back and right low back, ROM is normal. 20:35 Skin: no rash present. 20:35 Neuro: Orientation: to person, place \\T\\ time. Mentation: is normal, Motor: moves all fours, strength is normal, Sensation: is normal, Gait: is steady, at a normal pace, without difficulty. Vital Signs: 20:18 BP 155 / 105; Pulse 87 MON; Resp 18 S; Temp 98.6(O); Pulse Ox 98% on R/A; Weight 70.31 as6 kg (R); Height 5 ft. 7 in. (170.18 cm) (R); Pain 0/10; 21:04 BP 161 / 94; Pulse 84; Resp 18 S; Pulse Ox 96% on R/A; as6 22:14 BP 151 / 105; Pulse 79; Resp 20 S; Pulse Ox 97% on R/A; as6 20:18 Body Mass Index 24.28 (70.31 kg, 170.18 cm) as6 MDM: 19:47 Patient medically screened. [facility] 23:00 Data reviewed: vital signs, nurses notes, lab test result(s), EKG, and as a result, I will discharge patient. 10/01 20:21 Order name: CBC with Diff; Complete Time: 22:00 10/01 22:00 Interpretation: RBC 5.29; HGB 15.9; HCT 45.7. 10/01 20:21 Order name: CMP; Complete Time: 22:00 10/01 22:41 Interpretation: Normal except: NA 132; GLUC 314; GFR 54; CA 10.5; TP 8.6; GLOB 4.2; A/G cp 1.0. 10/01 20:21 Order name: Lipase; Complete Time: 22:00 10/01 20:21 Order name: Urine Microscopic Only; Complete Time: 22:00 10/01 20:21 Order name: Ketone, Serum; Complete Time: 22:00 10/01 20:21 Order name: COVID-19/FLU A+B (Document "Date of Onset" if Symptomatic); Complete Time: 22:41 10/01 20:23 Order name: Glucose, Ancillary Testing; Complete Time: 22:00 EDID 10/01 20:25 Order name: Glucose, Ancillary Testing EDID 10/01 20:39 Order name: Urine Dipstick-Ancillary; Complete Time: 22:00 EDID 10/01 21:56 Order name: Urine Culture EDID 10/01 23:05 Order name: Glucose, Ancillary Testing EDID 10/01 20:08 Order name: Accucheck Blood Glucose; Complete Time: 20:12 10/01 20:08 Order name: EKG; Complete Time: 20:08 10/01 20:08 Order name: EKG - Nurse/Tech; Complete Time: 20:27 10/01 20:21 Order name: IV Saline Lock; Complete Time: 21:02 cp 10/01 20:21 Order name: Labs collected and sent; Complete Time: 21:02 cp 10/01 20:21 Order name: Urine Dipstick-Ancillary (obtain specimen); Complete Time: 20:41 cp 10/01 20:21 Order name: Urine Test (obtain specimen); Complete Time: 20:41 cp 10/01 22:42 Order name: Accucheck Blood Glucose; Complete Time: 22:54 cp EC:33 Rate is 87 beats/min. Rhythm is regular. VT interval is normal. QRS interval is normal. cp QT interval is normal. T waves are Inverted in lead aVR. Interpreted by me. Reviewed by me. Administered Medications: 21:02 Drug: NS 0.9% 1000 ml Route: IV; Rate: 1 bolus; Site: right hand; as6 22:14 Follow up: Response: No adverse reaction; IV Status: Completed infusion; IV Intake: as6 1000ml 22:15 Drug: Rocephin - (cefTRIAXone) 1 grams Route: IVPB; Infused Over: 30 mins; Site: right as6 hand; 22:54 Follow up: Response: No adverse reaction; IV Status: Completed infusion; IV Intake: [id number] 22:54 Not Given (Hemodynamic Parameters): Insulin Regular Human 10 units IVP once; give if as6 glucose >300 22:55 Not Given (Hemodynamic Parameters): NS 0.9% 1000 ml IV at 1 bolus Per protocol; 1000 mL as6 bolus, give if glucose >300 Disposition Summary: 10/01/21 23:01 Discharge Ordered Location: Home cp Problem: new cp Symptoms: have improved cp Condition: Stable cp Diagnosis - UTI/ Urinary tract infection, site not specified cp - Diabetes mellitus due to underlying condition with hyperglycemia cp Followup: cp - With: Private Physician - When: 1 week - Reason: Recheck today's complaints Discharge Instructions: - Discharge Summary Sheet cp - Hyperglycemia cp - Urinary Tract Infection, Adult cp - Form - Daily Diabetes Record cp - Blood Glucose Monitoring, Adult cp - Diabetes Mellitus and Nutrition, Adult cp Forms: - Medication Reconciliation Form cp - Thank You Letter cp - Antibiotic Education cp - Prescription Opioid Use cp Prescriptions: - Bactrim DS 800-160 mg Oral Tablet - take 1 tablet by ORAL route every 12 hours for 7 days; 14 tablet; Refills: 0, cp Product Selection Permitted Addendum: 10/03/2021 07:17 Co-signature as Attending Physician, Orion Cook MD I agree with the assessment and c mooney plan of care. Signatures: Dispatcher [employer] EDOiron Montaño MD MD cha Pena, Laura, RN RN lp1 Orion Trevino, Todd Gonzales cp, RN RN as6
--- NOTE | 2021-10-01 23:01 | ER ---
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 Coronavirus screen: At this time, the client does not indicate any symptoms associated with coronavirus-19. Ebola Screen: No symptoms or risks identified at this time. Risk Assessment: Do you want to hurt yourself or someone else? Patient reports no desire to harm self or others. Onset of symptoms was October 01, 2021. 19:57 Method Of Arrival: Ambulatory lp1 20:18 Initial Sepsis Screen: Does the patient meet any 2 criteria? No. Patient's initial as6 sepsis screen is negative. Does the patient have a suspected source of infection? No. Patient's initial sepsis screen is negative. 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 - Social history:: Smoking status: Patient reports the use of cigarette tobacco products, smokes one-half pack cigarettes per day. Screenin:18 Abuse screen: Denies threats or abuse. Denies injuries from another. Nutritional as6 screening: No deficits noted. Tuberculosis screening: No symptoms or risk factors identified. Fall Risk None identified. Assessment: 20:17 General: Appears in no apparent distress. Behavior is cooperative, anxious. Pain: as6 Denies pain. Neuro: Level of Consciousness is awake, alert, obeys commands, Oriented to person, place, time, situation. Cardiovascular: Reports palpitations, shortness of breath, JVD is absent Patient's skin is warm and dry. Respiratory: Reports shortness of breath Respiratory effort is even, unlabored, Respiratory pattern is regular, symmetrical. 22:15 Reassessment: Patient appears in no apparent distress at this time. Patient and/or as6 family updated on plan of care and expected duration. Pain level reassessed. Patient is alert, oriented x 3, equal unlabored respirations, skin warm/dry/pink. Vital Signs: 20:18 BP 155 / 105; Pulse 87 MON; Resp 18 S; Temp 98.6(O); Pulse Ox 98% on R/A; Weight 70.31 as6 kg (R); Height 5 ft. 7 in. (170.18 cm) (R); Pain 0/10; 21:04 BP 161 / 94; Pulse 84; Resp 18 S; Pulse Ox 96% on R/A; as6 22:14 BP 151 / 105; Pulse 79; Resp 20 S; Pulse Ox 97% on R/A; as6 20:18 Body Mass Index 24.28 (70.31 kg, 170.18 cm) as6 ED Course: 19:40 Patient arrived in ED. mr 19:46 Orion Trevino PA is PHCP. cp 19:46 Orion Cook MD is Attending Physician. cp 19:47 Todd Mueller, CONOR is Primary Nurse. as6 20:12 Arm band placed on. as6 20:21 Triage completed. as6 20:21 Placed in gown. Bed in low position. Call light in reach. Side rails up X2. Cardiac as6 monitor on. Pulse ox on. NIBP on. 20:55 Inserted saline lock: 22 gauge in right hand, using aseptic technique. Blood collected. as6 21:02 COVID-19/FLU A+B (Document "Date of Onset" if Symptomatic) Sent. as6 21:02 Ketone, Serum Sent. as6 21:02 CBC with Diff Sent. as6 21:02 CMP Sent. as6 21:02 Lipase Sent. as6 21:02 Urine Microscopic Only Sent. as6 23:07 No provider procedures requiring assistance completed. IV discontinued, intact, as6 bleeding controlled, No redness/swelling at site. Pressure dressing applied. Administered Medications: 21:02 Drug: NS 0.9% 1000 ml Route: IV; Rate: 1 bolus; Site: right hand; as6 22:14 Follow up: Response: No adverse reaction; IV Status: Completed infusion; IV Intake: as6 1000ml 22:15 Drug: Rocephin - (cefTRIAXone) 1 grams Route: IVPB; Infused Over: 30 mins; Site: right as6 hand; 22:54 Follow up: Response: No adverse reaction; IV Status: Completed infusion; IV Intake: [id number] 22:54 Not Given (Hemodynamic Parameters): Insulin Regular Human 10 units IVP once; give if as6 glucose >300 22:55 Not Given (Hemodynamic Parameters): NS 0.9% 1000 ml IV at 1 bolus Per protocol; 1000 mL as6 bolus, give if glucose >300 Intake: 22:14 IV: 1000ml; Total: 1000ml. as6 22:54 IV: 50ml; Total: 1050ml. as6 Outcome: 23:01 Discharge ordered by . harper 23:07 Discharged to home ambulatory. as6 23:07 Condition: stable 23:07 Discharge instructions given to patient, Instructed on discharge instructions, follow up and referral plans. Demonstrated understanding of instructions, follow-up care, medications, Prescriptions given X 1. 23:08 Patient left the ED. as6 Signatures: Iris Davis Laura, RN RN lp1 Orion Trevino PA PA cp Slawson, Ashby, RN RN as6 Corrections: (The following items were deleted from the chart) 21:05 21:02 BP 143 / 86; Pulse 102bpm; Resp 18bpm; Spontaneous; Pulse Ox 97% RA; as6 as6
[2021-10-02 01:53] VITALS: TEMP 98.6
[2021-10-02 02:05] VITALS: BP 151/105; O2SAT 97
== END 2021-10-01 23:08 | disposition home or self-care (01) ==
LOC: ER 19:37
DX: E11.65 Type 2 diabetes mellitus with hyperglycemia (principal); N39.0 Urinary tract infection, site not specified; I10 Essential (primary) hypertension; F41.9 Anxiety disorder, unspecified; F17.210 Nicotine dependence, cigarettes, uncomplicated; Z20.822 Contact with and (suspected) exposure to COVID-19; Z79.4 Long term (current) use of insulin
CPT/HCPCS: 0240U; 36415; 80053; 81003; 81015; 82010; 82947; 83690; 85025; 87086; 87088; 96361; 96365; 99284; J7030

== ENCOUNTER 2022-06-09 23:33 | Emergency (ER) | payer MEDICARE, OTHER, SELFPAY ==
--- OUTSIDE RECORDS SUMMARY | 2022-06-09 23:43 | XMS REPORT | Continuity of Care Document ---
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 [id number] 1mg Take 1 [facility] n[facility] mg capsule 0-11 capsule by ity of 00:00: mouth at [place] [address] bedtime. Medical Branch lamoTRIgine 2021-06 Yes [id number] 200mg Take 2 [facility] 100 mg 0-11 tablets by ity of tablet 00:00: mouth in [place] the Medical morning. Branch prazosin 2021-06 Yes [id number] 1mg Take 1 [facility] n[facility] mg capsule 0-11 capsule by ity of 00:00: mouth at [place] [address] bedtime. Medical Branch lamoTRIgine 2021-06 Yes [id number] 200mg Take 2 [facility] 100 mg 0-11 tablets by ity of tablet 00:00: mouth in [place] the Medical morning. Branch prazosin 2021-06 Yes [id number] 1mg Take 1 [facility] n[facility] mg capsule 0-11 capsule by ity of 00:00: mouth at [place] [address] bedtime. Medical Branch lamoTRIgine 2021-06 Yes [id number] 200mg Take 2 [facility] 100 mg 0-11 tablets by ity of tablet 00:00: mouth in [place] the Medical morning. Branch prazosin 2021-06 Yes [id number] 1mg Take 1 [facility] n[facility] mg capsule 0-11 capsule by ity of 00:00: mouth at [place] [address] bedtime. Medical Branch lamoTRIgine 2021-06 Yes [id number] 200mg Take 2 [facility] 100 mg 0-11 tablets by ity of tablet 00:00: mouth in [place] 00 the Medical morning. Branch prazosin 2021-06 Yes [id number] 1mg Take 1 [facility] n[facility] mg capsule 0-11 capsule by ity of 00:00: mouth at [place] 00 bedtime. Medical Branch lamoTRIgine 2021-06 Yes [id number] 200mg Take 2 [facility] 100 mg 0-11 tablets by ity of tablet 00:00: mouth in [place] 00 the Medical morning. Branch prazosin 2021-06 Yes [id number] 1mg Take 1 [facility] n[facility] mg capsule 0-11 capsule by ity of 00:00: mouth at [place] 00 bedtime. Medical Branch lamoTRIgine 2021-06 Yes [id number] 200mg Take 2 [facility] 100 mg 0-11 tablets by ity of tablet 00:00: mouth in [place] 00 the Medical morning. Branch prazosin 2021-06 Yes [id number] 1mg Take 1 [facility] n[facility] mg capsule 0-11 capsule by ity of 00:00: mouth at [place] 00 bedtime. Medical Branch LORazepam 2021-06 No [id number] 1mg Take 1 [facility] nivers (ATIVAN) 1 0-11 10-25 tablet by it[facility] mg tablet 00:00: 00:[place] (two[place] Medical times [place] daily as needed for Anxiety or Agitation. LORazepam 2021-06 Yes [id number] 1mg Take 1 [facility] (ATIVAN) 1 0-10 tablet by ity of mg tablet 00:00: mouth 2 [place] 00 (two) Medical times [place] daily as needed for Anxiety or Agitation. prazosin 2021-06 Yes [id number] 1mg Take 1 [facility] n[facility] mg capsule 0-10 capsule by ity of 00:00: mouth at [place] 00 bedtime. Medical Branch lamoTRIgine 2021-06 Yes [id number] 200mg Take 2 [facility] 100 mg 0-10 tablets by ity of tablet 00:00: mouth in [place] 00 the Medical morning. Branch LORazepam 2021-06 Yes [id number] 1mg Take 1 [facility] (ATIVAN) 1 0-10 tablet by ity of mg tablet 00:00: mouth 2 [place] 00 (two) Medical times [place] daily as needed for Anxiety or Agitation. prazosin 2021-06 Yes [id number] 1mg Take 1 [facility] nivers mg capsule 0-10 capsule by ity of 00:00: mouth at [place] 00 bedtime. [facility] lamoTRIgine 2021-06 Yes [id number] 200mg Take 2 [facility] 100 mg 0-10 tablets by ity of tablet 00:00: mouth in [place] 00 the [facility] morning. [place] LORazepam 2021-06- No [id number] 1mg Take 1 [facility] nivers (ATIVAN) 1 0-10 10-11 tablet by ity of mg tablet 00:00: 00:[place] :[place] (two[place] Medical times [place] daily as needed for Anxiety or Agitation. prazosin 1 2021-06- No [id number] 1mg Take 1 [facility] mg capsule 0-10 10-11 capsule by it y of 00:00: 00:00 mouth at [place] 00 :00 bedtime. [facility] lamoTRIgine 2021-06- No [id number] 200mg Take 2 [facility] 100 mg 0-10 10-11 tablets by ity of tablet 00:00: 00:00 mouth in [place] 00 :00 the [facility] morning. [place] FAMOTIDINE 2021-06 Yes [id number] TAKE ONE [facility] 40 mg 0-04 TABLET BY ity of tablet 00:00: MOUTH [place] 00 EVERY DAY Medical IN THE [place] MORNING. FAMOTIDINE 2021-06 Yes [id number] TAKE ONE [facility] 40 mg 0-04 TABLET BY ity of tablet 00:00: MOUTH [place] 00 EVERY DAY Medical IN THE [place] MORNING. FAMOTIDINE 2021-06 Yes [id number] TAKE ONE [facility] 40 mg 0-04 TABLET BY ity of tablet 00:00: MOUTH [place] 00 EVERY DAY Medical IN THE [place] MORNING. FAMOTIDINE 2021-06 Yes [id number] TAKE ONE [facility] 40 mg 0-04 TABLET BY ity of tablet 00:00: MOUTH [place] 00 EVERY DAY Medical IN THE [place] MORNING. FAMOTIDINE 2021-06 Yes [id number] TAKE ONE [facility] 40 mg 0-04 TABLET BY ity of tablet 00:00: MOUTH [place] 00 EVERY DAY Medical IN THE [place] MORNING. FAMOTIDINE 2021-06 Yes [id number] TAKE ONE [facility] 40 mg 0-04 TABLET BY ity of tablet 00:00: MOUTH [place] 00 EVERY DAY Medical IN THE [place] MORNING. FAMOTIDINE 2021-06 Yes [id number] TAKE ONE [facility] 40 mg 0-04 TABLET BY ity of tablet 00:00: MOUTH [place] 00 EVERY DAY Medical IN THE [place] MORNING. FAMOTIDINE 2021-06 Yes [id number] TAKE ONE [facility] 40 mg 0-04 TABLET BY ity of tablet 00:00: MOUTH [place] 00 EVERY DAY Medical IN THE [place] MORNING. FAMOTIDINE 2021-06 Yes [id number] TAKE ONE [facility] 40 mg 0-04 TABLET BY ity of tablet 00:00: MOUTH [place] 00 EVERY DAY Medical IN THE [place] MORNING. FAMOTIDINE 2021-06 Yes [id number] TAKE ONE [facility] 40 mg 0-04 TABLET BY ity of tablet 00:00: MOUTH [place] 00 EVERY DAY Medical IN THE [place] MORNING. FAMOTIDINE 2021-06- No [id number] TAKE ONE [facility] 40 mg 0-04 11-03 TABLET BY ity of tablet 00:00: 00:00 MOUTH [place] 00 :00 EVERY DAY Medical IN THE [place] MORNING. LORazepam Yes [id number] 1mg Take 1 [facility] (ATIVAN) 1 9-12 tablet by ity of mg tablet 00:00: mouth (two) Medical times [place] daily as needed for Anxiety or Agitation. LORazepam Yes [id number] 1mg Take 1 [facility] [place] (ATIVAN) 1 9-12 tablet by ity of mg tablet 00:00: mouth (two) [facility] daily as needed for Anxiety or Agitation. LORazepam 0 Yes [id number] 1mg Take 1 [facility] [place] (ATIVAN) 1 9-12 tablet by ity of mg tablet 00:00: mouth (two) Medical times [place] daily as needed for Anxiety or Agitation. LORazepam 0 Yes [id number] 1mg Take 1 [facility] (ATIVAN) 1 9-12 tablet by ity of mg tablet 00:00: mouth (two) Medical times [place] daily as needed for Anxiety or Agitation. LORazepam 2021-0 Yes [id number] 1mg Take 1 [facility] [place] (ATIVAN) 1 9-12 tablet by ity of mg tablet 00:00: mouth (two) Medical times [place] daily as needed for Anxiety or Agitation. LORazepam 2- No [id number] 1mg Take 1 [facility] nivers (ATIVAN) 1 9-12 10-10 tablet by ity of mg tablet 00:00: 00:[place] :[place] (two) Medical times Branch daily as needed for Anxiety or Agitation. famotidine 2021-0 Yes [id number] 40mg Take 1 [facility] (PEPCID) 40 9- tablet by [facility] of mg tablet 00:00: [place] 00 the Medical morning. Branch famotidine 2021-0 Yes [id number] 40mg Take 1 [facility] (PEPCID) 40 9- tablet by ity of mg tablet 00:00: mouth [place] 00 the Medical morning. Branch famotidine 0 Yes [id number] 40mg Take 1 [facility] (PEPCID) 40 9- tablet by [facility] of mg tablet 00:00: [place] 00 the Medical morning. Branch famotidine 0 Yes [id number] 40mg Take 1 [facility] (PEPCID) 40 9- tablet by [facility]y of mg tablet 00:00: [place] 00 the Medical morning. Branch famotidine 2021- No [id number] 40mg Take 1 [facility] (PEPCID) 40 - 10- tablet by it y of mg tablet 00:00: 00:00 mouth [place] :00 the Medical morning. Branch famotidine 0 2021- No [id number] 40mg Take 1 [facility] (PEPCID) 40 02-06- tablet by it y of mg tablet 00:00: 00:00 mouth [place] :00 the Medical morning. Branch Nitrofurant 2021-0 Yes [id number] 100mg Take 1 [facility] oin&Nit. 8-19 capsule by ity o f Macrocryst 00:00: mouth [place] ([place]CR[place] 00 the Medical 100 mg morning Branch capsule and 1 capsule in the evening. Nitrofurant 2021-0 Yes [id number] 100mg Take 1 [facility] oin&Nit. 8-19 capsule by ity o f Macrocryst 00:00: mouth [place] ([place] 00 the Medical 100 mg morning Branch capsule and 1 capsule in the evening. Nitrofurant 2021-0 Yes [id number] 100mg Take 1 [facility] oin&Nit. 8-19 capsule by ity o f Macrocryst 00:00: mouth [place] ([place] 00 the Medical 100 mg morning Branch capsule and 1 capsule in the evening. Nitrofurant Yes [id number] 100mg Take 1 [facility] oin&Nit. 8-19 capsule by ity o f Macrocryst 00:00: mouth [place] ([place] 00 the Medical 100 mg morning Branch capsule and 1 capsule in the evening. Nitrofurant Yes [id number] 100mg Take 1 [facility] oin&Nit. 8-19 capsule by ity o f Macrocryst 00:00: mouth in [place] ([place]CR[place] 00 the Medical 100 mg morning Branch capsule and 1 capsule in the evening. Nitrofurant Yes [id number] 100mg Take 1 [facility] oin&Nit. 8-19 capsule by ity o f Macrocryst 00:00: mouth in [place] ([place] 00 the Medical 100 mg morning Branch capsule and 1 capsule in the evening. Nitrofurant Yes [id number] 100mg Take 1 [facility] oin&Nit. 8-19 capsule by ity o f Macrocryst 00:00: mouth [place] ([place]CR[place] 00 the Medical 100 mg morning Branch capsule and 1 capsule in the evening. Nitrofurant Yes [id number] 100mg Take 1 [facility] oin&Nit. 8-19 capsule by ity o f Macrocryst 00:00: mouth in [place] ([place]CR[place]) 00 the Medical 100 mg morning Branch capsule and 1 capsule in the evening. Nitrofurant Yes [id number] 100mg Take 1 [facility] oin&Nit. 8-19 capsule by ity o f Macrocryst 00:00: mouth in [place] ([place]CR[place] 00 the Medical 100 mg morning Branch capsule and 1 capsule in the evening. Nitrofurant 0 Yes [id number] 100mg Take 1 [facility] oin&Nit. 8-19 capsule by ity o f Macrocryst 00:00: mouth in [place] ([place]CR[place] 00 the Medical 100 mg morning Branch capsule and 1 capsule in the evening. Nitrofurant 0 Yes [id number] 100mg Take 1 [facility] oin&Nit. 8-19 capsule by ity o f Macrocryst 00:00: mouth in [place] ([place]CR[place]) 00 the Medical 100 mg morning Branch capsule and 1 capsule in the evening. Nitrofurant Yes [id number] 100mg Take 1 [facility] oin&Nit. 8-19 capsule by ity o f Macrocryst 00:00: mouth in [place] ([place]CR[place]) 00 the Medical 100 mg morning Branch capsule and 1 capsule in the evening. Nitrofurant Yes [id number] 100mg Take 1 [facility] oin&Nit. 8-19 capsule by ity o f Macrocryst 00:00: mouth in [place] ([place]CR[place]) 00 the Medical 100 mg morning Branch capsule and 1 capsule in the evening. Nitrofurant Yes [id number] 100mg Take 1 [facility] oin&Nit. 8-19 capsule by ity o f Macrocryst 00:00: mouth in [place] ([place]CROB[place]) 00 the Medical 100 mg morning Branch capsule and 1 capsule in the evening. Nitrofurant Yes [id number] 100mg Take 1 [facility] oin&Nit. 8-19 capsule by ity o f Macrocryst 00:00: mouth in [place] ([place]CR[place]) 00 the Medical 100 mg morning Branch capsule and 1 capsule in the evening. Nitrofurant Yes [id number] 100mg Take 1 [facility] oin&Nit. 8-19 capsule by ity o f Macrocryst 00:00: mouth in [place] ([place]CR[place]) 00 the Medical 100 mg morning Branch capsule and 1 capsule in the evening. Nitrofurant Yes [id number] 100mg Take 1 [facility] oin&Nit. 8-19 capsule by ity o f Macrocryst 00:00: mouth in [place] ([place]CR[place]) 00 the Medical 100 mg morning Branch capsule and 1 capsule in the evening. Nitrofurant Yes [id number] 100mg Take 1 [facility] oin&Nit. 8-19 capsule by ity o f Macrocryst 00:00: mouth in [place] ([place]CROB[place]) 00 the Medical 100 mg morning Branch capsule and 1 capsule in the evening. Nitrofurant 0 Yes [id number] 100mg Take 1 [facility] oin&Nit. 8-19 capsule by ity o f Macrocryst 00:00: mouth in [place] ([place]CR[place]) 00 the Medical 100 mg morning Branch capsule and 1 capsule in the evening. Nitrofurant 0 Yes [id number] 100mg Take 1 [facility] oin&Nit. 8-19 capsule by ity o f Macrocryst 00:00: mouth in [place] ([place]CROB[place]) 00 the Medical 100 mg morning Branch capsule and 1 capsule in the evening. Nitrofurant 0 Yes [id number] 100mg Take 1 [facility] oin&Nit. 8-19 capsule by ity o f Macrocryst 00:00: mouth in [place] ([place]CROB[place]) 00 the Medical 100 mg morning Branch capsule and 1 capsule in the evening. Nitrofurant Yes [id number] 100mg Take 1 [facility] oin&Nit. 8-19 capsule by ity o f Macrocryst 00:00: mouth in [place] ([place]CROB[place]) 00 the Medical 100 mg morning Branch capsule and 1 capsule in the evening. Nitrofurant Yes [id number] 100mg Take 1 [facility] oin&Nit. 8-19 capsule by ity o f Macrocryst 00:00: mouth in [place] ([place]CROBID) 00 the Medical 100 mg morning Branch capsule and 1 capsule in the evening. Nitrofurant Yes [id number] 100mg Take 1 [facility] oin&Nit. 8-19 capsule by ity o f Macrocryst 00:00: mouth in [place] ([place]CR[place]) 00 the Medical 100 mg morning Branch capsule and 1 capsule in the evening. Nitrofurant 0 Yes [id number] 100mg Take 1 [facility] oin&Nit. 8-19 capsule by ity o f Macrocryst 00:00: mouth in [place] ([place]CR[place]) 00 the Medical 100 mg morning Branch capsule and 1 capsule in the evening. Nitrofurant 2021-0 Yes [id number] 100mg Take 1 [facility] oin&Nit. 8-19 capsule by ity o f Macrocryst 00:00: mouth in [place] ([place]CR[place]) 00 the Medical 100 mg morning Branch capsule and 1 capsule in the evening. Nitrofurant 2021-0 Yes [id number] 100mg Take 1 [facility] oin&Nit. 8-19 capsule by ity o f Macrocryst 00:00: mouth in [place] ([place]CR[place]) 00 the Medical 100 mg morning Branch capsule and 1 capsule in the evening. Insulin 2021-0 Yes [id number] Use as [facility] [place], 8-10 directed ity of Disposable, 00:00: [place] ([place] [address]) 32 Branch gauge x 1/4" Ndle Insulin 2021-0 Yes [id number] Use as [facility] [place], 8-10 directed ity of Disposable, 00:00: [place] ([place] [address]) 32 Branch gauge x 1/4" Ndle Insulin 2021-0 Yes [id number] Use as [facility] [place], 8-10 directed ity of Disposable, 00:00: [place] ([place] [address]) 32 Branch gauge x 1/4" Ndle Insulin 2021-0 Yes [id number] Use as [facility] [place], 8-10 directed ity of Disposable, 00:00: [place] ([place] [address]) 32 Branch gauge x 1/4" Ndle Insulin 2021-0 Yes [id number] Use as [facility] [place], 8-10 directed ity of Disposable, 00:00: [place] ([place] [address]) 32 Branch gauge x 1/4" Ndle Insulin 2021-0 Yes [id number] Use as [facility] [place], 8-10 directed ity of Disposable, 00:00: [place] ([place] [address]) 32 Branch gauge x 1/4" Ndle Insulin 2021-0 Yes [id number] Use as [facility] [place], 8-10 directed ity of Disposable, 00:00: [place] ([place] [address]) 32 Branch gauge x 1/4" Ndle Insulin 2021-0 Yes [id number] Use as [facility] [place], 8-10 directed ity of Disposable, 00:00: [place] ([place] [address]) 32 Branch gauge x 1/4" Ndle Insulin 2021-0 Yes [id number] Use as [facility] [place], 8-10 directed ity of Disposable, 00:00: [place] ([place] [address]) 32 Branch gauge x 1/4" Ndle Insulin 202-0 Yes [id number] Use as [facility] [place], 8-10 directed ity of Disposable, 00:00: [place] ([place] [address]) 32 Branch gauge x 1/4" Ndle Insulin 202-0 Yes [id number] Use as [facility] [place], 8-10 directed ity of Disposable, 00:00: [place] ([place] [address]) 32 Branch gauge x 1/4" Ndle Insulin 2022-0 Yes [id number] Use as [facility] [place], 8-10 directed ity of Disposable, 00:00: [place] ([place] [address]) 32 Branch gauge x 1/4" Ndle Insulin 2022-0 Yes [id number] Use as [facility] [place], 8-10 directed ity of Disposable, 00:00: [place] ([place] [address]) 32 Branch gauge x 1/4" Ndle Insulin 2022-0 Yes [id number] Use as [facility] [place], 8-10 directed ity of Disposable, 00:00: [place] ([place] [address]) 32 Branch gauge x 1/4" Ndle Insulin 2022-0 Yes [id number] Use as [facility] [place], 8-10 directed ity of Disposable, 00:00: [place] ([place] [address]) 32 Branch gauge x 1/4" Ndle Insulin 2022-0 Yes [id number] Use as [facility] [place], 8-10 directed ity of Disposable, 00:00: [place] ([place] [address]) 32 Branch gauge x 1/4" Ndle Insulin 2022-0 Yes [id number] Use as [facility] [place], 8-10 directed ity of Disposable, 00:00: [place] ([place] [address]) 32 Branch gauge x 1/4" Ndle Insulin 2022-0 Yes [id number] Use as [facility] [place], 8-10 directed ity of Disposable, 00:00: [place] ([place] [address]) 32 Branch gauge x 1/4" Ndle Insulin 2022-0 Yes [id number] Use as [facility] [place], 8-10 directed ity of Disposable, 00:00: [place] ([place] [address]) 32 Branch gauge x 1/4" Ndle Insulin 2022-0 Yes [id number] Use as [facility] [place], 8-10 directed ity of Disposable, 00:00: [place] ([place] [address]) 32 Branch gauge x 1/4" Ndle Insulin 2022-0 Yes [id number] Use as [facility] [place], 8-10 directed ity of Disposable, 00:00: [place] ([place] [address]) 32 Branch gauge x 1/4" Ndle Insulin 2022-0 Yes [id number] Use as [facility] [place], 8-10 directed ity of Disposable, 00:00: [place] ([place] [address]) 32 Branch gauge x 1/4" Ndle Insulin 0 Yes [id number] Use as [facility] [place], 8-10 directed ity of Disposable, 00:00: [place] ([place] [address]) 32 Branch gauge x 1/4" Ndle Insulin 0 Yes [id number] Use as [facility] [place], 8-10 directed ity of Disposable, 00:00: [place] ([place] [address]) 32 Branch gauge x 1/4" Ndle Insulin 0 Yes [id number] Use as [facility] [place], 8-10 directed ity of Disposable, 00:00: [place] ([place] [address]) 32 Branch gauge x 1/4" Ndle Insulin 0 Yes [id number] Use as [facility] [place], 8-10 directed ity of Disposable, 00:00: [place] ([place] [address]) 32 Branch gauge x 1/4" Ndle Insulin 0 Yes [id number] Use as [facility] [place], 8-10 directed ity of Disposable, 00:00: [place] ([place] [address]) 32 Branch gauge x 1/4" Ndle LORazepam 2021- No [id number] 1mg Take 1 U nivers (ATIVAN) 1 01-15 tablet by ity of mg tablet 00:00: 00:[place] mouth [place] 00 :[place] (two) Medical times Branch daily as needed for Anxiety or Agitation. LORazepam 2021- No [id number] 1mg Take 1 [facility] nivers (ATIVAN) 1 01-15 tablet by ity of mg tablet 00:00: 00:00 mouth 2 [place] 00 :[place] (two) Medical times Branch daily as needed for Anxiety or Agitation. famotidine 2021- No [id number] 40mg Take 1 [facility] (PEPCID) 40 01-08 tablet by it y of mg tablet 00:00: 00:00 mouth in [place] :00 the Medical morning. Branch famotidine 2021- No [id number] 40mg Take 1 [facility] (PEPCID) 40 01-08 tablet by it y of mg tablet 00:00: 00:00 mouth in [place] 00 :00 the Medical morning. Branch lamoTRIgine 2021-0 Yes [id number] 200mg Take 2 [facility] 100 mg 6-17 tablets by ity of tablet 00:00: mouth [place] 00 daily. Medical Branch prazosin 1 2021-0 Yes [id number] 1mg Take 1 U nivers mg capsule 6-17 capsule by ity of 00:00: mouth at [place] [address] bedtime. Medical Branch lamoTRIgine 0 Yes [id number] 200mg Take 2 [facility] 100 mg 6-17 tablets by ity of tablet 00:00: mouth [place] 00 daily. Medical Branch prazosin 1 Yes [id number] 1mg Take 1 U nivers mg capsule 6-17 capsule by ity of 00:00: mouth at [place] [address] bedtime. Medical Branch lamoTRIgine 0 Yes [id number] 200mg Take 2 [facility] 100 mg 6-17 tablets by ity of tablet 00:00: mouth [place] 00 daily. Medical Branch prazosin 1 Yes [id number] 1mg Take 1 U nivers mg capsule 6-17 capsule by ity of 00:00: mouth at [place] [address] bedtime. Medical Branch lamoTRIgine 0 Yes [id number] 200mg Take 2 [facility] 100 mg 6-17 tablets by ity of tablet 00:00: mouth [place] 00 daily. Medical Branch prazosin 1 0 Yes [id number] 1mg Take 1 U nivers mg capsule 6-17 capsule by ity of 00:00: mouth at [place] [address] bedtime. Medical Branch lamoTRIgine 0 Yes [id number] 200mg Take 2 [facility] 100 mg 6-17 tablets by ity of tablet 00:00: mouth [place] 00 daily. Medical Branch prazosin 1 2021-0 Yes [id number] 1mg Take 1 U nivers mg capsule 6-17 capsule by ity of 00:00: mouth at [place] [address] bedtime. Medical Branch lamoTRIgine 0 Yes [id number] 200mg Take 2 [facility] 100 mg 6-17 tablets by ity of tablet 00:00: mouth [place] 00 daily. Medical Branch prazosin 1 2021-0 Yes [id number] 1mg Take 1 U nivers mg capsule 6-17 capsule by ity of 00:00: mouth at [place] 00 bedtime. Medical Branch lamoTRIgine 2021- No [id number] 200mg Take 2 [facility] 100 mg 6-17 10-10 tablets by ity of tablet 00:00: 00:00 mouth [place] 00 :00 daily. Medical Branch prazosin 1 2021- No [id number] 1mg Take 1 [facility] mg capsule 6-17 10-10 capsule by it y of 00:00: 00:00 mouth at [place] 00 :00 bedtime. Medical Branch hydrOXYzine 2021- No [id number] 25mg Take 1 [facility] 25 mg 6-17 08-19 tablet by ity of tablet 00:00: 00:00 mouth at [place] 00 :00 bedtime as Medical needed for Branch Anxiety or Other (insomnia) . hydrOXYzine 2021- No [id number] 25mg Take 1 [facility] 25 mg 6-17 08-19 tablet by ity of tablet 00:00: 00:00 mouth at [place] 00 :00 bedtime as Medical needed for Branch Anxiety or Other (insomnia) . metoprolol Yes [id number] 50mg Take 1 U nivers succinate 5-06 tablet by ity o f XL 50 mg 24 00:00: mouth [place] hr tablet 00 daily. Medical Branch metoprolol Yes [id number] 50mg Take 1 U nivers succinate 5-06 tablet by ity o f XL 50 mg 24 00:00: mouth [place] hr tablet 00 daily. Medical Branch metoprolol Yes [id number] 50mg Take 1 U nivers succinate 5-06 tablet by ity o f XL 50 mg 24 00:00: mouth [place] hr tablet 00 daily. Medical Branch metoprolol Yes [id number] 50mg Take 1 U nivers succinate 5-06 tablet by ity o f XL 50 mg 24 00:00: mouth [place] hr tablet 00 daily. Medical Branch metoprolol Yes [id number] 50mg Take 1 U nivers succinate 5-06 tablet by ity o f XL 50 mg 24 00:00: mouth [place] hr tablet 00 daily. Medical Branch metoprolol Yes [id number] 50mg Take 1 U nivers succinate 5-06 tablet by ity o f XL 50 mg 24 00:00: mouth [place] hr tablet 00 daily. Medical Branch metoprolol 2021-0 Yes [id number] 50mg Take 1 U nivers succinate 5-06 tablet by ity o f XL 50 mg 24 00:00: mouth [place] hr tablet 00 daily. Medical Branch metoprolol 0 Yes [id number] 50mg Take 1 U nivers succinate 5-06 tablet by ity o f XL 50 mg 24 00:00: mouth [place] hr tablet 00 daily. Medical Branch metoprolol 0 Yes [id number] 50mg Take 1 U nivers succinate 5-06 tablet by ity o f XL 50 mg 24 00:00: mouth [place] hr tablet 00 daily. Medical Branch metoprolol Yes [id number] 50mg Take 1 U nivers succinate 5-06 tablet by ity o f XL 50 mg 24 00:00: mouth [place] hr tablet 00 daily. Medical Branch metoprolol Yes [id number] 50mg Take 1 U nivers succinate 5-06 tablet by ity o f XL 50 mg 24 00:00: mouth [place] hr tablet 00 daily. Medical Branch metoprolol 0 Yes [id number] 50mg Take 1 U nivers succinate 5-06 tablet by ity o f XL 50 mg 24 00:00: mouth [place] hr tablet 00 daily. Medical Branch metoprolol 0 Yes [id number] 50mg Take 1 U nivers succinate 5-06 tablet by ity o f XL 50 mg 24 00:00: mouth [place] hr tablet 00 daily. Medical Branch metoprolol 0 Yes [id number] 50mg Take 1 U nivers succinate 5-06 tablet by ity o f XL 50 mg 24 00:00: mouth [place] hr tablet 00 daily. Medical Branch metoprolol 0 Yes [id number] 50mg Take 1 U nivers succinate 5-06 tablet by ity o f XL 50 mg 24 00:00: mouth [place] hr tablet 00 daily. Medical Branch metoprolol 0 Yes [id number] 50mg Take 1 U nivers succinate 5-06 tablet by ity o f XL 50 mg 24 00:00: mouth [place] hr tablet 00 daily. Medical Branch metoprolol 2021-0 Yes [id number] 50mg Take 1 U nivers succinate 5-06 tablet by ity o f XL 50 mg 24 00:00: mouth [place] hr tablet 00 daily. Medical Branch metoprolol Yes [id number] 50mg Take 1 U nivers succinate 5-06 tablet by ity o f XL 50 mg 24 00:00: mouth [place] hr tablet 00 daily. Medical Branch metoprolol Yes [id number] 50mg Take 1 U nivers succinate 5-06 tablet by ity o f XL 50 mg 24 00:00: mouth [place] hr tablet 00 daily. [facility] Branch metoprolol Yes [id number] 50mg Take 1 U nivers succinate 5-06 tablet by ity o f XL 50 mg 24 00:00: mouth [place] hr tablet 00 daily. Medical Branch metoprolol Yes [id number] 50mg Take 1 U nivers succinate 5-06 tablet by ity o f XL 50 mg 24 00:00: mouth [place] hr tablet 00 daily. [facility] Branch metoprolol Yes [id number] 50mg Take 1 U nivers succinate 5-06 tablet by ity o f XL 50 mg 24 00:00: mouth [place] hr tablet 00 daily. [facility] Branch metoprolol Yes [id number] 50mg Take 1 U nivers succinate 5-06 tablet by ity o f XL 50 mg 24 00:00: mouth [place] hr tablet 00 daily. Medical Branch metoprolol Yes [id number] 50mg Take 1 U nivers succinate 5-06 tablet by ity o f XL 50 mg 24 00:00: mouth [place] hr tablet 00 daily. [facility] metoprolol Yes [id number] 50mg Take 1 U nivers succinate 5-06 tablet by ity o f XL 50 mg 24 00:00: mouth [place] hr tablet 00 daily. [facility] metoprolol Yes [id number] 50mg Take 1 U nivers succinate 5-06 tablet by ity o f XL 50 mg 24 00:00: mouth [place] hr tablet 00 daily. [facility] metoprolol Yes [id number] 50mg Take 1 U nivers succinate 5-06 tablet by ity o f XL 50 mg 24 00:00: mouth [place] hr tablet 00 daily. [facility] Insulin Yes [id number] Use to Uni vers Syringe-Nee 3-02 inject ity of dle U-100 1 00:00: insulin 4X [place] mL 31 gauge 00 daily. Medica l x 5/16 Syrg DX:[id number] [facility] Insulin Yes [id number] Use to Uni vers Syringe-Nee 3-02 inject ity of dle U-100 1 00:00: insulin 4X [place] mL 31 gauge 00 daily. Medica l x 5/16 Syrg DX:[id number] [facility] Insulin Yes [id number] Use to Uni vers Syringe-Nee 3-02 inject ity of dle U-100 1 00:00: insulin 4X [place] mL 31 gauge 00 daily. Medica l x 5/16 Syrg DX:[id number] [facility] Insulin Yes [id number] Use to Uni vers Syringe-Nee 3-02 inject ity of dle U-100 1 00:00: insulin 4X [place] mL 31 gauge 00 daily. Medica l x 5/16 Syrg DX:[id number] [facility] Insulin Yes [id number] Use to Uni vers Syringe-Nee 3-02 inject ity of dle U-100 1 00:00: insulin 4X [place] mL 31 gauge 00 daily. Medica l x 5/16 Syrg DX:[id number] [facility] Insulin Yes [id number] Use to Uni vers Syringe-Nee 3-02 inject ity of dle U-100 1 00:00: insulin 4X [place] mL 31 gauge 00 daily. Medica l x 5/16 Syrg DX:[id number] [facility] Insulin Yes [id number] Use to Uni vers Syringe-Nee 3-02 inject ity of dle U-100 1 00:00: insulin 4X [place] mL 31 gauge 00 daily. Medica l x 5/16 Syrg DX:[id number] [facility] Insulin 0 Yes [id number] Use to Uni vers Syringe-Nee 3-02 inject ity of dle U-100 1 00:00: insulin 4X [place] mL 31 gauge 00 daily. Medica l x 5/16 Syrg DX:[id number] [facility] Insulin 0 Yes [id number] Use to Uni vers Syringe-Nee 3-02 inject ity of dle U-100 1 00:00: insulin 4X [place] mL 31 gauge 00 daily. Medica l x 5/16 Syrg DX:[id number] [facility] Insulin Yes [id number] Use to Uni vers Syringe-Nee 3-02 inject ity of dle U-100 1 00:00: insulin 4X [place] mL 31 gauge 00 daily. Medica l x 5/16 Syrg DX:[id number] [facility] Insulin Yes [id number] Use to Uni vers Syringe-Nee 3-02 inject ity of dle U-100 1 00:00: insulin 4X [place] mL 31 gauge 00 daily. Medica l x 5/16 Syrg DX:[id number] [facility] Insulin Yes [id number] Use to Uni vers Syringe-Nee 3-02 inject ity of dle U-100 1 00:00: insulin 4X [place] mL 31 gauge 00 daily. Medica l x 5/16 Syrg DX:[id number] [facility] Insulin Yes [id number] Use to Uni vers Syringe-Nee 3-02 inject ity of dle U-100 1 00:00: insulin 4X [place] mL 31 gauge 00 daily. Medica l x 5/16 Syrg DX:[id number] [facility] Insulin Yes [id number] Use to Uni vers Syringe-Nee 3-02 inject ity of dle U-100 1 00:00: insulin 4X [place] mL 31 gauge 00 daily. Medica l x 5/16 Syrg DX:[id number] [facility] Insulin Yes [id number] Use to Uni vers Syringe-Nee 3-02 inject ity of dle U-100 1 00:00: insulin 4X [place] mL 31 gauge 00 daily. Medica l x 5/16 Syrg DX:[id number] [facility] Insulin Yes [id number] Use to Uni vers Syringe-Nee 3-02 inject ity of dle U-100 1 00:00: insulin 4X [place] mL 31 gauge 00 daily. Medica l x 5/16 Syrg DX:[id number] [facility] Insulin 0 Yes [id number] Use to Uni vers Syringe-Nee 3-02 inject ity of dle U-100 1 00:00: insulin 4X [place] mL 31 gauge 00 daily. Medica l x 10/21 Syrg DX:[id number] [facility] Insulin Yes [id number] Use to Uni vers Syringe-Nee 08-07 inject ity of dle U-100 1 00:00: insulin 4X [place] mL 31 gauge 00 daily. Medica l x 10/21 Syrg DX:[id number] [facility] Insulin Yes [id number] Use to Uni vers Syringe-Nee 08-07 inject ity of dle U-100 1 00:00: insulin 4X [place] mL 31 gauge 00 daily. Medica l x 10/21 Syrg DX:[id number] [facility] Insulin Yes [id number] Use to Uni vers Syringe-Nee 08-07 inject ity of dle U-100 1 00:00: insulin 4X [place] mL 31 gauge 00 daily. Medica l x 10/21 Syrg DX:[id number] [facility] Insulin 2021- No [id number] Use to Un kendra Syringe-Nee 08-07 inject ity o f dle U-100 1 00:00: 00:00 insulin 4X [place] mL 31 gauge 00 :00 daily. Medica l x 10/21 Syrg DX:[id number] [facility] insulin Yes [id number] 160 to Uni vers aspart 2-09 200, 1 u, ity of U-100 00:00: 201 to [place] (NOVOLOG 00 240, 2 u. Medica l FLEXPEN BG 241 to Branch U-100 280, 3 INSULIN) unit. BG 100 unit/mL 281 to (3 mL) 300, 4 injection units. BG > 300, 5 units, recheck in 3 hours and cover with s/s insulin Yes [id number] inject 20 [facility] glargine 2-09 Units ity of (LANTUS 00:00: under the [place] U-100 00 skin twice Medical INSULIN) a day. Branch 100 unit/mL injection insulin Yes [id number] 160 to Uni vers aspart 2-09 200, 1 u, ity of U-100 00:00: 201 to [place] (NOVOLOG 00 240, 2 u. Medica l FLEXPEN BG 241 to Branch U-100 280, 3 INSULIN) unit. BG 100 unit/mL 281 to (3 mL) 300, 4 injection units. BG > 300, 5 units, recheck in 3 hours and cover with s/s insulin 2021-0 Yes [id number] inject 20 [facility] glargine 2-09 Units ity of (LANTUS 00:00: under the [place] U-100 00 skin twice Medical INSULIN) a day. Branch 100 unit/mL injection insulin 0 Yes [id number] 160 to Uni vers aspart 2-09 200, 1 u, ity of U-100 00:00: 201 to [place] (NOVOLOG 00 240, 2 u. Medica l FLEXPEN BG 241 to Branch U-100 280, 3 INSULIN) unit. BG 100 unit/mL 281 to (3 mL) 300, 4 injection units. BG > 300, 5 units, recheck in 3 hours and cover with s/s insulin 0 Yes [id number] inject 20 [facility] glargine 2-09 Units ity of (LANTUS 00:00: under the [place] U-100 00 skin twice Medical INSULIN) a day. Branch 100 unit/mL injection insulin Yes [id number] 160 to Uni vers aspart 2-09 200, 1 u, ity of U-100 00:00: 201 to [place] (NOVOLOG 00 240, 2 u. Medica l FLEXPEN BG 241 to Branch U-100 280, 3 INSULIN) unit. BG 100 unit/mL 281 to (3 mL) 300, 4 injection units. BG > 300, 5 units, recheck in 3 hours and cover with s/s insulin 0 Yes [id number] inject 20 [facility] glargine 2-09 Units ity of (LANTUS 00:00: under the [place] U-100 00 skin twice Medical INSULIN) a day. Branch 100 unit/mL injection insulin 0 Yes [id number] 160 to Uni vers aspart 2-09 200, 1 u, ity of U-100 00:00: 201 to [place] (NOVOLOG 00 240, 2 u. Medica l FLEXPEN BG 241 to Branch U-100 280, 3 INSULIN) unit. BG 100 unit/mL 281 to (3 mL) 300, 4 injection units. BG > 300, 5 units, recheck in 3 hours and cover with s/s insulin 2022-0 Yes [id number] inject 20 [facility] glargine 2-09 Units ity of (LANTUS 00:00: under the [place] U-100 00 skin twice Medical INSULIN) a day. Branch 100 unit/mL injection insulin Yes [id number] 160 to Uni vers aspart 2-09 200, 1 u, ity of U-100 00:00: 201 to [place] (NOVOLOG 00 240, 2 u. Medica l FLEXPEN BG 241 to Branch U-100 280, 3 INSULIN) unit. BG 100 unit/mL 281 to (3 mL) 300, 4 injection units. BG > 300, 5 units, recheck in 3 hours and cover with s/s insulin Yes [id number] inject 20 [facility] glargine 2-09 Units ity of (LANTUS 00:00: under the [place] U-100 00 skin twice Medical INSULIN) a day. Branch 100 unit/mL injection insulin Yes [id number] 160 to Uni vers aspart 2-09 200, 1 u, ity of U-100 00:00: 201 to [place] (NOVOLOG 00 240, 2 u. Medica l FLEXPEN BG 241 to Branch U-100 280, 3 INSULIN) unit. BG 100 unit/mL 281 to (3 mL) 300, 4 injection units. BG > 300, 5 units, recheck in 3 hours and cover with s/s insulin Yes [id number] inject 20 [facility] glargine 2-09 Units ity of (LANTUS 00:00: under the [place] U-100 00 skin twice Medical INSULIN) a day. Branch 100 unit/mL injection insulin Yes [id number] 160 to Uni vers aspart 2-09 200, 1 u, ity of U-100 00:00: 201 to [place] (NOVOLOG 00 240, 2 u. Medica l FLEXPEN BG 241 to Branch U-100 280, 3 INSULIN) unit. BG 100 unit/mL 281 to (3 mL) 300, 4 injection units. BG > 300, 5 units, recheck in 3 hours and cover with s/s insulin Yes [id number] inject 20 [facility] glargine 2-09 Units ity of (LANTUS 00:00: under the [place] U-100 00 skin twice Medical INSULIN) a day. Branch 100 unit/mL injection insulin 2021-0 Yes [id number] 160 to Uni vers aspart 2-09 200, 1 u, ity of U-100 00:00: 201 to [place] (NOVOLOG 00 240, 2 u. Medica l FLEXPEN BG 241 to Branch U-100 280, 3 INSULIN) unit. BG 100 unit/mL 281 to (3 mL) 300, 4 injection units. BG > 300, 5 units, recheck in 3 hours and cover with s/s insulin 2021-0 Yes [id number] inject 20 [facility] glargine 2-09 Units ity of (LANTUS 00:00: under the [place] U-100 00 skin twice Medical INSULIN) a day. Branch 100 unit/mL injection insulin 0 Yes [id number] 160 to Uni vers aspart 2-09 200, 1 u, ity of U-100 00:00: 201 to [place] (NOVOLOG 00 240, 2 u. Medica l FLEXPEN BG 241 to Branch U-100 280, 3 INSULIN) unit. BG 100 unit/mL 281 to (3 mL) 300, 4 injection units. BG > 300, 5 units, recheck in 3 hours and cover with s/s insulin 2021-0 Yes [id number] inject 20 [facility] glargine 2-09 Units ity of (LANTUS 00:00: under the [place] U-100 00 skin twice Medical INSULIN) a day. Branch 100 unit/mL injection insulin Yes [id number] 160 to Uni vers aspart 2-09 200, 1 u, ity of U-100 00:00: 201 to [place] (NOVOLOG 00 240, 2 u. Medica l FLEXPEN BG 241 to Branch U-100 280, 3 INSULIN) unit. BG 100 unit/mL 281 to (3 mL) 300, 4 injection units. BG > 300, 5 units, recheck in 3 hours and cover with s/s insulin 2021-0 Yes [id number] inject 20 [facility] glargine 2-09 Units ity of (LANTUS 00:00: under the [place] U-100 00 skin twice Medical INSULIN) a day. Branch 100 unit/mL injection insulin Yes [id number] 160 to Uni vers aspart 2-09 200, 1 u, ity of U-100 00:00: 201 to [place] (NOVOLOG 00 240, 2 u. Medica l FLEXPEN BG 241 to Branch U-100 280, 3 INSULIN) unit. BG 100 unit/mL 281 to (3 mL) 300, 4 injection units. BG > 300, 5 units, recheck in 3 hours and cover with s/s insulin Yes [id number] inject 20 [facility] glargine 2-09 Units ity of (LANTUS 00:00: under the [place] U-100 00 skin twice Medical INSULIN) a day. Branch 100 unit/mL injection insulin Yes [id number] 160 to Uni vers aspart 2-09 200, 1 u, ity of U-100 00:00: 201 to [place] (NOVOLOG 00 240, 2 u. Medica l FLEXPEN BG 241 to Branch U-100 280, 3 INSULIN) unit. BG 100 unit/mL 281 to (3 mL) 300, 4 injection units. BG > 300, 5 units, recheck in 3 hours and cover with s/s insulin Yes [id number] 160 to Uni vers aspart 2-09 200, 1 u, ity of U-100 00:00: 201 to [place] (NOVOLOG 00 240, 2 u. Medica l FLEXPEN BG 241 to Branch U-100 280, 3 INSULIN) unit. BG 100 unit/mL 281 to (3 mL) 300, 4 injection units. BG > 300, 5 units, recheck in 3 hours and cover with s/s insulin Yes [id number] 160 to Uni vers aspart 2-09 200, 1 u, ity of U-100 00:00: 201 to [place] (NOVOLOG 00 240, 2 u. Medica l FLEXPEN BG 241 to Branch U-100 280, 3 INSULIN) unit. BG 100 unit/mL 281 to (3 mL) 300, 4 injection units. BG > 300, 5 units, recheck in 3 hours and cover with s/s insulin Yes [id number] 160 to Uni vers aspart 2-09 200, 1 u, ity of U-100 00:00: 201 to [place] (NOVOLOG 00 240, 2 u. Medica l FLEXPEN BG 241 to Branch U-100 280, 3 INSULIN) unit. BG 100 unit/mL 281 to (3 mL) 300, 4 injection units. BG > 300, 5 units, recheck in 3 hours and cover with s/s insulin 202-0 Yes [id number] 160 to Uni vers aspart 2-09 200, 1 u, ity of U-100 00:00: 201 to [place] (NOVOLOG 00 240, 2 u. Medica l FLEXPEN BG 241 to Branch U-100 280, 3 INSULIN) unit. BG 100 unit/mL 281 to (3 mL) 300, 4 injection units. BG > 300, 5 units, recheck in 3 hours and cover with s/s insulin 2021-0 Yes [id number] 160 to Uni vers aspart 2-09 200, 1 u, ity of U-100 00:00: 201 to [place] (NOVOLOG 00 240, 2 u. Medica l FLEXPEN BG 241 to Branch U-100 280, 3 INSULIN) unit. BG 100 unit/mL 281 to (3 mL) 300, 4 injection units. BG > 300, 5 units, recheck in 3 hours and cover with s/s insulin 2021-0 Yes [id number] 160 to Uni vers aspart 2-09 200, 1 u, ity of U-100 00:00: 201 to [place] (NOVOLOG 00 240, 2 u. Medica l FLEXPEN BG 241 to Branch U-100 280, 3 INSULIN) unit. BG 100 unit/mL 281 to (3 mL) 300, 4 injection units. BG > 300, 5 units, recheck in 3 hours and cover with s/s insulin 2021-0 Yes [id number] 160 to Uni vers aspart 2-09 200, 1 u, ity of U-100 00:00: 201 to [place] (NOVOLOG 00 240, 2 u. Medica l FLEXPEN BG 241 to Branch U-100 280, 3 INSULIN) unit. BG 100 unit/mL 281 to (3 mL) 300, 4 injection units. BG > 300, 5 units, recheck in 3 hours and cover with s/s insulin 2021-0 Yes [id number] 160 to Uni vers aspart 2-09 200, 1 u, ity of U-100 00:00: 201 to [place] (NOVOLOG 00 240, 2 u. Medica l FLEXPEN BG 241 to Branch U-100 280, 3 INSULIN) unit. BG 100 unit/mL 281 to (3 mL) 300, 4 injection units. BG > 300, 5 units, recheck in 3 hours and cover with s/s insulin 2021-0 Yes [id number] 160 to Uni vers aspart 2-09 200, 1 u, ity of U-100 00:00: 201 to [place] (NOVOLOG 00 240, 2 u. Medica l FLEXPEN BG 241 to Branch U-100 280, 3 INSULIN) unit. BG 100 unit/mL 281 to (3 mL) 300, 4 injection units. BG > 300, 5 units, recheck in 3 hours and cover with s/s insulin 2021-0 Yes [id number] 160 to Uni vers aspart 2-09 200, 1 u, ity of U-100 00:00: 201 to [place] (NOVOLOG 00 240, 2 u. Medica l FLEXPEN BG 241 to Branch U-100 280, 3 INSULIN) unit. BG 100 unit/mL 281 to (3 mL) 300, 4 injection units. BG > 300, 5 units, recheck in 3 hours and cover with s/s insulin 2021-0 Yes [id number] 160 to Uni vers aspart 2-09 200, 1 u, ity of U-100 00:00: to [place] (NOVOLOG 00 240, 2 u. Medica l FLEXPEN BG 241 to Branch U-100 280, 3 INSULIN) unit. BG 100 unit/mL 281 to (3 mL) 300, 4 injection units. BG > 300, 5 units, recheck in 3 hours and cover with s/s insulin 2021-0 Yes [id number] 160 to Uni vers aspart 2-09 200, 1 u, ity of U-100 00:00: 201 to [place] (NOVOLOG 00 240, 2 u. Medica l FLEXPEN BG 241 to Branch U-100 280, 3 INSULIN) unit. BG 100 unit/mL 281 to (3 mL) 300, 4 injection units. BG > 300, 5 units, recheck in 3 hours and cover with s/s insulin 2021-0 Yes [id number] 160 to Uni vers aspart 2-09 200, 1 u, ity of U-100 00:00: 201 to [place] (NOVOLOG 00 240, 2 u. Medica l FLEXPEN BG 241 to Branch U-100 280, 3 INSULIN) unit. BG 100 unit/mL 281 to (3 mL) 300, 4 injection units. BG > 300, 5 units, recheck in 3 hours and cover with s/s insulin Yes [id number] 160 to Uni vers aspart -09 200, 1 u, ity of U-100 00:00: 201 to [place] (NOVOLOG 00 240, 2 u. Medica l FLEXPEN BG 241 to Branch U-100 280, 3 INSULIN) unit. BG 100 unit/mL 281 to (3 mL) 300, 4 injection units. BG > 300, 5 units, recheck in 3 hours and cover with s/s insulin 2021- No [id number] inject 20 [facility] glargine 2-09 10-25 Units ity of (LANTUS 00:00: 00:00 [place] U-100 00 :00 skin twice Medical INSULIN) a day. Branch 100 unit/mL injection insulin 2021- No [id number] inject 20 [facility] glargine 2-09 10-25 Units ity of (LANTUS 00:00: 00:00 [place] U-100 00 :00 skin twice Medical INSULIN) a day. Branch 100 unit/mL injection lipase-prot Yes [id number] 1{capsu Take 1 [facility] ease-amylas 2-03 le} capsule by it y of e (CREON) 00:00: mouth 3 [place] 36,000-114, 00 (three) Medic al 000- times Branch 180,000 daily with unit CpDR meals. lipase-prot Yes [id number] 1{capsu Take 1 [facility] ease-amylas 2-03 le} capsule by it y of e (CREON) 00:00: mouth 3 [place] 36,000-114, 00 (three) Medic al 000- times Branch 180,000 daily with unit CpDR meals. lipase-prot Yes [id number] 1{capsu Take 1 [facility] ease-amylas 2-03 le} capsule by it y of e (CREON) 00:00: mouth 3 [place] 36,000-114, 00 (three) Medic al 000- times Branch 180,000 daily with unit CpDR meals. lipase-prot Yes [id number] 1{capsu Take 1 [facility] ease-amylas 2-03 le} capsule by it y of e (CREON) 00:00: mouth 3 [place] 36,000-114, 00 (three) Medic al 000- times Branch 180,000 daily with unit CpDR meals. lipase-prot Yes [id number] 1{capsu Take 1 [facility] ease-amylas 2-03 le} capsule by it y of e (CREON) 00:00: mouth 3 [place] 36,000-114, 00 (three) Medic al 000- times Branch 180,000 daily with unit CpDR meals. lipase-prot Yes [id number] 1{capsu Take 1 [facility] ease-amylas 2-03 le} capsule by it y of e (CREON) 00:00: mouth 3 [place] 36,000-114, 00 (three) Medic al 000- times Branch 180,000 daily with unit CpDR meals. lipase-prot Yes [id number] 1{capsu Take 1 [facility] ease-amylas 2-03 le} capsule by it y of e (CREON) 00:00: mouth 3 [place] 36,000-114, 00 (three) Medic al 000- times Branch 180,000 daily with unit CpDR meals. lipase-prot Yes [id number] 1{capsu Take 1 [facility] ease-amylas 2-03 le} capsule by it y of e (CREON) 00:00: mouth 3 [place] 36,000-114, 00 (three) Medic al 000- times Branch 180,000 daily with unit CpDR meals. lipase-prot Yes [id number] 1{capsu Take 1 [facility] ease-amylas 2-03 le} capsule by it y of e (CREON) 00:00: mouth 3 [place] 36,000-114, 00 (three) Medic al 000- times Branch 180,000 daily with unit CpDR meals. lipase-prot Yes [id number] 1{capsu Take 1 [facility] ease-amylas 2-03 le} capsule by it y of e (CREON) 00:00: mouth 3 [place] 36,000-114, 00 (three) Medic al 000- times Branch 180,000 daily with unit CpDR meals. lipase-prot Yes [id number] 1{capsu Take 1 [facility] ease-amylas 2-03 le} capsule by it y of e (CREON) 00:00: mouth 3 [place] 36,000-114, 00 (three) Medic al 000- times Branch 180,000 daily with unit CpDR meals. lipase-prot Yes [id number] 1{capsu Take 1 [facility] ease-amylas 2-03 le} capsule by it y of e (CREON) 00:00: mouth 3 [place] 36,000-114, 00 (three) Medic al 000- times Branch 180,000 daily with unit CpDR meals. lipase-prot Yes [id number] 1{capsu Take 1 [facility] ease-amylas 2-03 le} capsule by it y of e (CREON) 00:00: mouth 3 [place] 36,000-114, 00 (three) Medic al 000- times Branch 180,000 daily with unit CpDR meals. lipase-prot Yes [id number] 1{capsu Take 1 [facility] ease-amylas 2-03 le} capsule by it y of e (CREON) 00:00: mouth 3 [place] 36,000-114, 00 (three) Medic al 000- times Branch 180,000 daily with unit CpDR meals. lipase-prot Yes [id number] 1{capsu Take 1 [facility] ease-amylas 2-03 le} capsule by it y of e (CREON) 00:00: mouth 3 [place] 36,000-114, 00 (three) Medic al 000- times Branch 180,000 daily with unit CpDR meals. lipase-prot Yes [id number] 1{capsu Take 1 [facility] ease-amylas 2-03 le} capsule by it y of e (CREON) 00:00: mouth 3 [place] 36,000-114, 00 (three) Medic al 000- times Branch 180,000 daily with unit CpDR meals. lipase-prot Yes [id number] 1{capsu Take 1 [facility] ease-amylas 2-03 le} capsule by it y of e (CREON) 00:00: mouth 3 [place] 36,000-114, 00 (three) Medic al 000- times Branch 180,000 daily with unit CpDR meals. lipase-prot Yes [id number] 1{capsu Take 1 [facility] ease-amylas 2-03 le} capsule by it y of e (CREON) 00:00: mouth 3 [place] 36,000-114, 00 (three) Medic al 000- times Branch 180,000 daily with unit CpDR meals. lipase-prot Yes [id number] 1{capsu Take 1 [facility] ease-amylas 2-03 le} capsule by it y of e (CREON) 00:00: mouth 3 [place] 36,000-114, 00 (three) Medic al 000- times Branch 180,000 daily with unit CpDR meals. lipase-prot Yes [id number] 1{capsu Take 1 [facility] ease-amylas 2-03 le} capsule by it y of e (CREON) 00:00: mouth 3 [place] 36,000-114, 00 (three) Medic al 000- times Branch 180,000 daily with unit CpDR meals. lipase-prot Yes [id number] 1{capsu Take 1 [facility] ease-amylas 2-03 le} capsule by it y of e (CREON) 00:00: mouth 3 [place] 36,000-114, 00 (three) Medic al 000- times Branch 180,000 daily with unit CpDR meals. lipase-prot Yes [id number] 1{capsu Take 1 [facility] ease-amylas 2-03 le} capsule by it y of e (CREON) 00:00: mouth 3 [place] 36,000-114, 00 (three) Medic al 000- times Branch 180,000 daily with unit CpDR meals. lipase-prot Yes [id number] 1{capsu Take 1 [facility] ease-amylas 2-03 le} capsule by it y of e (CREON) 00:00: mouth 3 [place] 36,000-114, 00 (three) Medic al 000- times Branch 180,000 daily with unit CpDR meals. lipase-prot Yes [id number] 1{capsu Take 1 [facility] ease-amylas 2-03 le} capsule by it y of e (CREON) 00:00: mouth 3 [place] 36,000-114, 00 (three) Medic al 000- times Branch 180,000 daily with unit CpDR meals. lipase-prot Yes [id number] 1{capsu Take 1 [facility] ease-amylas 2-03 le} capsule by it y of e (CREON) 00:00: mouth 3 [place] 36,000-114, 00 (three) Medic al 000- times Branch 180,000 daily with unit CpDR meals. lipase-prot 2020-0 Yes [id number] 1{capsu Take 1 [facility] ease-amylas 2-03 le} capsule by it y of e (CREON) 00:00: mouth 3 [place] 36,000-114, 00 (three) Medic al 000- times Branch 180,000 daily with unit CpDR meals. lipase-prot 2020-0 Yes [id number] 1{capsu Take 1 [facility] ease-amylas 2-03 le} capsule by it y of e (CREON) 00:00: mouth 3 [place] 36,000-114, 00 (three) Medic al 000- times Branch 180,000 daily with unit CpDR meals. insulin 2020-0 Yes 10U Inject 10 Metho di ASPART 2-[address] (NovoLOG) 12:45: under the [facility] 100 unit/mL 23 skin. l insulin pen insulin 2020-0 Yes 30U QD Inject 30 Metho di GLARGINE 2-[address] (LANTUS) 12:45: [facility] 100 unit/mL 23 skin l injection daily. (vial) metoprolol 2020-0 Yes 25mg QD Take 25 mg M ethodi tartrate 2-[address] (LOPRESSOR) 12:45: daily. [facility] 25 mg 23 l tablet flash 2020-0 Yes 1{packa QD 1 Package Meth [place] glucose 2-20 ge} daily. st scanning 00:00: Hospita reader 00 l (FREESTYLE RUPA 14 DAY READER) misc flash 2020-0 Yes 6{packa QD 6 Packages Met hodi glucose 2-20 ge} daily. st sensor 00:00: Hospita (FREESTYLE 00 l RUPA 14 DAY SENSOR) kit CONTOUR Yes [id number] Use to [facility] ers NEXT TEST 5- check ity of STRIPS 00:00: glucose 4X [place] strip 00 daily. Medical DX:E08.65 Branch CONTOUR 0 Yes [id number] Use to [facility] ers NEXT TEST 5- check ity of STRIPS 00:00: glucose 4X [place] strip 00 daily. Medical DX:E08.65 Branch CONTOUR 0 Yes [id number] Use to [facility] ers NEXT TEST 5- check ity of STRIPS 00:00: glucose 4X [place] strip 00 daily. Medical DX:E08.65 Branch CONTOUR Yes [id number] Use to [facility] ers NEXT TEST 11-05 check ity of STRIPS 00:00: glucose 4X [place] strip 00 daily. Medical DX:E08.65 Branch CONTOUR Yes [id number] Use to [facility] ers NEXT TEST 11-05 check ity of STRIPS 00:00: glucose 4X [place] strip 00 daily. Medical DX:E08.65 Branch CONTOUR 2019- Yes [id number] Use to [facility] ers NEXT TEST 11-05 check ity of STRIPS 00:00: glucose 4X [place] strip 00 daily. Medical DX:E08.65 Branch CONTOUR Yes [id number] Use to [facility] ers NEXT TEST 11-05 check ity of STRIPS 00:00: glucose 4X [place] strip 00 daily. Medical DX:E08.65 Branch CONTOUR Yes [id number] Use to [facility] ers NEXT TEST 11-05 check ity of STRIPS 00:00: glucose 4X [place] strip 00 daily. Medical DX:E08.65 Branch CONTOUR Yes [id number] Use to [facility] ers NEXT TEST 11-05 check ity of STRIPS 00:00: glucose 4X [place] strip 00 daily. Medical DX:E08.65 Branch CONTOUR Yes [id number] Use to [facility] ers NEXT TEST 11-05 check ity of STRIPS 00:00: glucose 4X [place] strip 00 daily. Medical DX:E08.65 Branch CONTOUR Yes [id number] Use to [facility] ers NEXT TEST 11-05 check ity of STRIPS 00:00: glucose 4X [place] strip 00 daily. Medical DX:E08.65 Branch CONTOUR Yes [id number] Use to [facility] ers NEXT TEST 11-05 check ity of STRIPS 00:00: glucose 4X [place] strip 00 daily. Medical DX:E08.65 Branch CONTOUR Yes [id number] Use to [facility] ers NEXT TEST 11-05 check ity of STRIPS 00:00: glucose 4X [place] strip 00 daily. Medical DX:E08.65 Branch CONTOUR 2019 Yes [id number] Use to [facility] ers NEXT TEST 11-05 check ity of STRIPS 00:00: glucose 4X [place] strip 00 daily. Medical DX:E08.65 Branch CONTOUR 2019- Yes [id number] Use to [facility] ers NEXT TEST 11-05 check ity of STRIPS 00:00: glucose 4X [place] strip 00 daily. Medical DX:E08.65 Branch CONTOUR 2019- Yes [id number] Use to Univ ers NEXT TEST 11-05 check ity of STRIPS 00:00: glucose 4X [place] strip 00 daily. Medical DX:E08.65 Branch CONTOUR Yes [id number] Use to Univ ers NEXT TEST 11-05 check ity of STRIPS 00:00: glucose 4X [place] strip 00 daily. Medical DX:E08.65 Branch CONTOUR Yes [id number] Use to Univ ers NEXT TEST 11-05 check ity of STRIPS 00:00: glucose 4X [place] strip 00 daily. Medical DX:E08.65 Branch CONTOUR Yes [id number] Use to Univ ers NEXT TEST 11-05 check ity of STRIPS 00:00: glucose 4X [place] strip 00 daily. Medical DX:E08.65 Branch CONTOUR Yes [id number] Use to Univ ers NEXT TEST 11-05 check ity of STRIPS 00:00: glucose 4X [place] strip 00 daily. Medical DX:E08.65 Branch CONTOUR Yes [id number] Use to Univ ers NEXT TEST 11-05 check ity of STRIPS 00:00: glucose 4X [place] strip 00 daily. Medical DX:E08.65 Branch CONTOUR Yes [id number] Use to Univ ers NEXT TEST 11-05 check ity of STRIPS 00:00: glucose 4X [place] strip 00 daily. Medical DX:E08.65 Branch CONTOUR Yes [id number] Use to [facility] ers NEXT TEST 11-05 check ity of STRIPS 00:00: glucose 4X [place] strip 00 daily. Medical DX:E08.65 Branch CONTOUR Yes [id number] Use to Univ ers NEXT TEST 11-05 check ity of STRIPS 00:00: glucose 4X [place] strip 00 daily. Medical DX:E08.65 Branch CONTOUR Yes [id number] Use to Univ ers NEXT TEST 11-05 check ity of STRIPS 00:00: glucose 4X [place] strip 00 daily. Medical DX:E08.65 Branch CONTOUR Yes [id number] Use to Univ ers NEXT TEST 11-05 check ity of STRIPS 00:00: glucose 4X [place] strip 00 daily. Medical DX:E08.65 Branch CONTOUR 2018- Yes [id number] Use to Univ ers NEXT TEST 11-05 check ity of STRIPS 00:00: glucose 4X [place] strip 00 daily. Medical DX:E08.65 Branch flash 2019-0 Yes [id number] 1{each} 1 Each Uni vers glucose 3-15 daily. Dx ity of scanning 00:00: 11.8, E [place] reader Misc 00 16.2, K Medic al 86.89 Branch flash 2019-0 Yes [id number] 1{each} 1 Each Uni vers glucose 3-15 every 10 ity of sensor Kit 00:00: () 00 days. Dx Medical 11.8, E Branch 16.2, K 86.89 flash 2019-0 Yes [id number] 1{each} 1 Each Uni vers glucose 3-15 daily. Dx ity of scanning 00:00: 11.8, E [place] reader Misc 00 16.2, K Medic al 86.89 Branch flash 2019-0 Yes [id number] 1{each} 1 Each Uni vers glucose 3-15 every 10 ity of sensor Kit 00:00: () 00 days. Dx Medical 11.8, E Branch 16.2, K 86.89 flash 2019-0 Yes [id number] 1{each} 1 Each Uni vers glucose 3-15 daily. Dx ity of scanning 00:00: 11.8, E [place] reader Misc 00 16.2, K Medic al 86.89 Branch flash 2019-0 Yes [id number] 1{each} 1 Each Uni vers glucose 3-15 every 10 ity of sensor Kit 00:00: () [place] 00 days. Dx Medical 11.8, E Branch 16.2, K 86.89 flash 2019-0 Yes [id number] 1{each} 1 Each Uni vers glucose 3-15 daily. Dx ity of scanning 00:00: 11.8, E [place] reader Misc 00 16.2, K Medic al 86.89 Branch flash 2019-0 Yes [id number] 1{each} 1 Each Uni vers glucose 3-15 every 10 ity of sensor Kit 00:00: () [place] 00 days. Dx Medical 11.8, E Branch 16.2, K 86.89 flash 2019-0 Yes [id number] 1{each} 1 Each Uni vers glucose 3-15 daily. Dx ity of scanning 00:00: 11.8, E [place] reader Misc 00 16.2, K Medic al 86.89 Branch flash 2019-0 Yes [id number] 1{each} 1 Each Uni vers glucose 3-15 every 10 ity of sensor Kit 00:00: () 00 days. Dx Medical 11.8, E Branch 16.2, K 86.89 flash 2019-0 Yes [id number] 1{each} 1 Each Uni vers glucose 3-15 daily. Dx ity of scanning 00:00: 11.8, E [place] reader Misc 00 16.2, K Medic al 86.89 Branch flash 2019-0 Yes [id number] 1{each} 1 Each Uni vers glucose 3-15 every 10 ity of sensor Kit 00:00: () 00 days. Dx Medical 11.8, E Branch 16.2, K 86.89 flash 2019-0 Yes [id number] 1{each} 1 Each Uni vers glucose 3-15 daily. Dx ity of scanning 00:00: 11.8, E [place] reader Misc 00 16.2, K Medic al 86.89 Branch flash 2019-0 Yes [id number] 1{each} 1 Each Uni vers glucose 3-15 every 10 ity of sensor Kit 00:00: () 00 days. Dx Medical 11.8, E Branch 16.2, K 86.89 flash 2019-0 Yes [id number] 1{each} 1 Each Uni vers glucose 3-15 daily. Dx ity of scanning 00:00: 11.8, E [place] reader Misc 00 16.2, K Medic al 86.89 Branch flash 2019-0 Yes [id number] 1{each} 1 Each Uni vers glucose 3-15 every 10 ity of sensor Kit 00:00: () 00 days. Dx Medical 11.8, E Branch 16.2, K 86.89 flash 2019-0 Yes [id number] 1{each} 1 Each Uni vers glucose 3-15 daily. Dx ity of scanning 00:00: 11.8, E [place] reader Misc 00 16.2, K Medic al 86.89 Branch flash 2019-0 Yes [id number] 1{each} 1 Each Uni vers glucose 3-15 every 10 ity of sensor Kit 00:00: () 00 days. Dx Medical 11.8, E Branch 16.2, K 86.89 flash 2019-0 Yes [id number] 1{each} 1 Each Uni vers glucose 3-15 daily. Dx ity of scanning 00:00: 11.8, E [place] reader Misc 00 16.2, K Medic al 86.89 Branch flash 2019-0 Yes [id number] 1{each} 1 Each Uni vers glucose 3-15 every 10 ity of sensor Kit 00:00: () 00 days. Dx Medical 11.8, E Branch 16.2, K 86.89 flash 2019-0 Yes [id number] 1{each} 1 Each Uni vers glucose 3-15 daily. Dx ity of scanning 00:00: 11.8, E [place] reader Misc 00 16.2, K Medic al 86.89 Branch flash 2019-0 Yes [id number] 1{each} 1 Each Uni vers glucose 3-15 every 10 ity of sensor Kit 00:00: () 00 days. Dx Medical 11.8, E Branch 16.2, K 86.89 flash 2019-0 Yes [id number] 1{each} 1 Each Uni vers glucose 3-15 daily. Dx ity of scanning 00:00: 11.8, E [place] reader Misc 00 16.2, K Medic al 86.89 Branch flash 2019-0 Yes [id number] 1{each} 1 Each Uni vers glucose 3-15 every 10 ity of sensor Kit 00:00: () 00 days. Dx Medical 11.8, E Branch 16.2, K 86.89 flash 2019-0 Yes [id number] 1{each} 1 Each Uni vers glucose 3-15 daily. Dx ity of scanning 00:00: 11.8, E [place] reader Misc 00 16.2, K Medic al 86.89 Branch flash 2019-0 Yes [id number] 1{each} 1 Each Uni vers glucose 3-15 every 10 ity of sensor Kit 00:00: () 00 days. Dx Medical 11.8, E Branch 16.2, K 86.89 flash 2019-0 Yes [id number] 1{each} 1 Each Uni vers glucose 3-15 daily. Dx ity of scanning 00:00: 11.8, E [place] reader Misc 00 16.2, K Medic al 86.89 Branch flash 2019-0 Yes [id number] 1{each} 1 Each Uni vers glucose 3-15 every 10 ity of sensor Kit 00:00: () 00 days. Dx Medical 11.8, E Branch 16.2, K 86.89 flash 2019-0 Yes [id number] 1{each} 1 Each Uni vers glucose 3-15 daily. Dx ity of scanning 00:00: 11.8, E [place] reader Misc 00 16.2, K Medic al 86.89 Branch flash 2019-0 Yes [id number] 1{each} 1 Each Uni vers glucose 3-15 every 10 ity of sensor Kit 00:00: () 00 days. Dx Medical 11.8, E Branch 16.2, K 86.89 flash 2019-0 Yes [id number] 1{each} 1 Each Uni vers glucose 3-15 daily. Dx ity of scanning 00:00: 11.8, E [place] reader Misc 00 16.2, K Medic al 86.89 Branch flash 2019-0 Yes [id number] 1{each} 1 Each Uni vers glucose 3-15 every 10 ity of sensor Kit 00:00: () 00 days. Dx Medical 11.8, E Branch 16.2, K 86.89 flash 2019-0 Yes [id number] 1{each} 1 Each Uni vers glucose 3-15 daily. Dx ity of scanning 00:00: 11.8, E [place] reader Misc 00 16.2, K Medic al 86.89 Branch flash 2019-0 Yes [id number] 1{each} 1 Each Uni vers glucose 3-15 every 10 ity of sensor Kit 00:00: () 00 days. Dx Medical 11.8, E Branch 16.2, K 86.89 flash 2019-0 Yes [id number] 1{each} 1 Each Uni vers glucose 3-15 daily. Dx ity of scanning 00:00: 11.8, E [place] reader Misc 00 16.2, K Medic al 86.89 Branch flash 2019-0 Yes [id number] 1{each} 1 Each Uni vers glucose 3-15 every 10 ity of sensor Kit 00:00: () [place] 00 days. Dx Medical 11.8, E Branch 16.2, K 86.89 flash 2019-0 Yes [id number] 1{each} 1 Each Uni vers glucose 3-15 daily. Dx ity of scanning 00:00: 11.8, E [place] reader Misc 00 16.2, K Medic al 86.89 Branch flash 2019-0 Yes [id number] 1{each} 1 Each Uni vers glucose 3-15 every 10 ity of sensor Kit 00:00: () [place] 00 days. Dx Medical 11.8, E Branch 16.2, K 86.89 flash 2019-0 Yes [id number] 1{each} 1 Each Uni vers glucose 3-15 daily. Dx ity of scanning 00:00: 11.8, E [place] reader Misc 00 16.2, K Medic al 86.89 Branch flash 2019-0 Yes [id number] 1{each} 1 Each Uni vers glucose 3-15 every 10 ity of sensor Kit 00:00: () 00 days. Dx Medical 11.8, E Branch 16.2, K 86.89 flash 2019-0 Yes [id number] 1{each} 1 Each Uni vers glucose 3-15 daily. Dx ity of scanning 00:00: 11.8, E [place] reader Misc 00 16.2, K Medic al 86.89 Branch flash 2019-0 Yes [id number] 1{each} 1 Each Uni vers glucose 3-15 every 10 ity of sensor Kit 00:00: () 00 days. Dx Medical 11.8, E Branch 16.2, K 86.89 flash 2019-0 Yes [id number] 1{each} 1 Each Uni vers glucose 3-15 daily. Dx ity of scanning 00:00: 11.8, E [place] reader Misc 00 16.2, K Medic al 86.89 Branch flash 2019-0 Yes [id number] 1{each} 1 Each Uni vers glucose 3-15 every 10 ity of sensor Kit 00:00: () 00 days. Dx Medical 11.8, E Branch 16.2, K 86.89 flash 2019-0 Yes [id number] 1{each} 1 Each Uni vers glucose 3-15 daily. Dx ity of scanning 00:00: 11.8, E [place] reader Misc 00 16.2, K Medic al 86.89 Branch flash 2019-0 Yes [id number] 1{each} 1 Each Uni vers glucose 3-15 every 10 ity of sensor Kit 00:00: () 00 days. Dx Medical 11.8, E Branch 16.2, K 86.89 flash 2019-0 Yes [id number] 1{each} 1 Each Uni vers glucose 3-15 daily. Dx ity of scanning 00:00: 11.8, E [place] reader Misc 00 16.2, K Medic al 86.89 Branch flash 2019-0 Yes [id number] 1{each} 1 Each Uni vers glucose 3-15 every 10 ity of sensor Kit 00:00: () 00 days. Dx Medical 11.8, E Branch 16.2, K 86.89 flash 2019-0 Yes [id number] 1{each} 1 Each Uni vers glucose 3-15 daily. Dx ity of scanning 00:00: 11.8, E [place] reader Misc 00 16.2, K Medic al 86.89 Branch flash 2019-0 Yes [id number] 1{each} 1 Each Uni vers glucose 3-15 every 10 ity of sensor Kit 00:00: () 00 days. Dx Medical 11.8, E Branch 16.2, K 86.89 flash 2019-0 Yes [id number] 1{each} 1 Each Uni vers glucose 3-15 daily. Dx ity of scanning 00:00: 11.8, E [place] reader Misc 00 16.2, K Medic al 86.89 Branch flash 2019-0 Yes [id number] 1{each} 1 Each Uni vers glucose 3-15 every 10 ity of sensor Kit 00:00: () 00 days. Dx Medical 11.8, E Branch 16.2, K 86.89 flash 2019-0 Yes [id number] 1{each} 1 Each Uni vers glucose 3-15 daily. Dx ity of scanning 00:00: 11.8, E [place] reader Misc 00 16.2, K Medic al 86.89 Branch flash 2019-0 Yes [id number] 1{each} 1 Each Uni vers glucose 3-15 every 10 ity of sensor Kit 00:00: () 00 days. Dx Medical 11.8, E Branch 16.2, K 86.89 Blood-Gluco 2018-0 Yes Use as Univ ers se Meter 8-14 directed ity of (CONTOUR 00:00: [place] METER) [facility] 00 Medical Branch Blood-Gluco 2018-0 Yes Use as Univ ers se Meter 8-14 directed ity of (CONTOUR 00:00: [place] METER) [facility] 00 Medical Branch Blood-Gluco 2018-0 Yes Use as Univ ers se Meter 8-14 directed ity of (CONTOUR 00:00: [place] METER) [facility] 00 Medical Branch Blood-Gluco 2018-0 Yes Use as Univ ers se Meter 8-14 directed ity of (CONTOUR 00:00: [place] METER) Misc 00 Medical Branch Blood-Gluco 2018-0 Yes Use as Univ ers se Meter 8-14 directed ity of (CONTOUR 00:00: [place] METER) Misc 00 Medical Branch Blood-Gluco 2018-0 Yes Use as Univ ers se Meter 8-14 directed ity of (CONTOUR 00:00: [place] METER) Misc 00 Medical Branch Blood-Gluco 2018-0 Yes Use as Univ ers se Meter 8-14 directed ity of (CONTOUR 00:00: [place] METER) Misc 00 Medical Branch Blood-Gluco 2018-0 Yes Use as Univ ers se Meter 8-14 directed ity of (CONTOUR 00:00: [place] METER) Misc 00 Medical Branch Blood-Gluco 2018-0 Yes Use as Univ ers se Meter 8-14 directed ity of (CONTOUR 00:00: [place] METER) Misc 00 Medical Branch Blood-Gluco 2018-0 Yes Use as Univ ers se Meter 8-14 directed ity of (CONTOUR 00:00: [place] METER) Misc 00 Medical Branch Blood-Gluco 2018-0 Yes Use as Univ ers se Meter 8-14 directed ity of (CONTOUR 00:00: [place] METER) Misc 00 Medical Branch Blood-Gluco 2018-0 Yes Use as Univ ers se Meter 8-14 directed ity of (CONTOUR 00:00: [place] METER) Misc 00 Medical Branch Blood-Gluco 2018-0 Yes Use as Univ ers se Meter 8-14 directed ity of (CONTOUR 00:00: [place] METER) Misc 00 Medical Branch Blood-Gluco 2018-0 Yes Use as Univ ers se Meter 8-14 directed ity of (CONTOUR 00:00: [place] METER) Misc 00 Medical Branch Blood-Gluco 2018-0 Yes Use as Univ ers se Meter 8-14 directed ity of (CONTOUR 00:00: [place] METER) Misc 00 Medical Branch Blood-Gluco 2018-0 Yes Use as Univ ers se Meter 8-14 directed ity of (CONTOUR 00:00: [place] METER) Misc 00 Medical Branch Blood-Gluco 2018-0 Yes Use as Univ ers se Meter 8-14 directed ity of (CONTOUR 00:00: [place] METER) Misc 00 Medical Branch Blood-Gluco 2018-0 Yes Use as Univ ers se Meter 8-14 directed ity of (CONTOUR 00:00: [place] METER) Misc 00 Medical Branch Blood-Gluco 2018-0 Yes Use as Univ ers se Meter 8-14 directed ity of (CONTOUR 00:00: [place] METER) [facility] 00 Medical Branch Blood-Gluco Yes Use as Univ ers se Meter 8-14 directed ity of (CONTOUR 00:00: [place] METER) [facility] 00 Medical Branch Blood-Gluco Yes Use as Univ ers se Meter 8-14 directed ity of (CONTOUR 00:00: [place] METER) [facility] 00 Medical Branch Blood-Gluco Yes Use as Univ ers se Meter 8-14 directed ity of (CONTOUR 00:00: [place] METER) [facility] 00 Medical Branch Blood-Gluco Yes Use as Univ ers se Meter 8-14 directed ity of (CONTOUR 00:00: [place] METER) [facility] 00 Medical Branch Blood-Gluco Yes Use as Univ ers se Meter 8-14 directed ity of (CONTOUR 00:00: [place] METER) [facility] 00 Medical Branch Blood-Gluco Yes Use as Univ ers se Meter 8-14 directed ity of (CONTOUR 00:00: [place] METER) [place] [address] Medical Branch Blood-Gluco Yes Use as Univ ers se Meter 8-14 directed ity of (CONTOUR 00:00: [place] METER) [facility] 00 Medical Branch Blood-Gluco Yes Use as Univ ers se Meter 8-14 directed ity of (CONTOUR 00:00: [place] METER) [place] [address] Medical Branch zolpidem Yes 10mg QD Take 10 mg Met [facility]odi (AMBIEN) 5 2-[address] MG tablet 00:00: nightly as [facility] 00 needed for l sleep. clonAZEPAM Yes .5mg Q.5D Take 0.5 Met hodi (KlonoPIN) 1-[address] 0.5 MG 00:00: mouth 2 [facility]osp[facility] tablet 00 (two) l times a day as needed for anxiety. acetaminoph 2013-06 Yes Abscess 1{tbl} Take 1 Corrgian en-codeine 2-22 tablet by [facility] (TYLENOL/CO 00:00: mouth DEINE #3) 00 every 4 300-30 mg hours as per tablet needed for Pain. ibuprofen 2013-06 Yes Cellulitis 400mg Take 1 [place] (MOTRIN) 2-10 tablet by [facility] 400 mg 00:00: mouth tablet 00 every 6 hours as needed for Pain. hydrochloro 2013-06 Yes 12.5mg Take 12.5 [place] thiazide 2-09 mg by Health 12.5 mg 23:14: mouth capsule 58 every morning. insulin 2013-06 Yes Inject [facility]har glargine 2-09 under the Health (LANTUS 23:14: skin once. SOLOSTAR) 58 100 unit/mL (3 mL) InPn insulin 2013-06 Yes Inject [place] aspart 2-09 under the Health (NOVOLOG) 23:14: skin 3 100 unit/mL 58 times injection daily. Immunizations Ordered Filled Immunization Date Status Comments [facility] Immunization Name Name Pneumococcal 2022-03-31 Completed Universit y of Conjugate, PCV20 00:00:00 [place] [facility] (Prevnar 20) Branch SARS-COV-2 COVID-19 2022-03-31 Completed Unive rsity of JASPER-SUCROSE 00:00:00 [place] [facility] l VACCINE 12 YRS+, Branch BIVALENT 0.3ML, IM, (PFIZER ROGER TOP BOOSTER) Pneumococcal 2022-03-31 Completed Universit y of Conjugate, PCV20 00:00:00 [place] [facility] (Prevnar 20) Branch SARS-COV-2 COVID-19 2022-03-31 Completed Unive rsity of JASPER-SUCROSE 00:00:00 [place] Medica l VACCINE 12 YRS+, Branch BIVALENT 0.3ML, IM, (PFIZER ROGER TOP BOOSTER) Pneumococcal 20 2022-03-31 Completed Universit y of Conjugate, PCV20 00:00:00 [place] [facility] (Prevnar 20) Branch SARS-COV-2 COVID-19 2022-03-31 Completed Unive rsity of JASPER-SUCROSE 00:00:00 [place] Medica l VACCINE 12 YRS+, Branch BIVALENT 0.3ML, IM, (PFIZER ROGER TOP BOOSTER) Pneumococcal 20 2022-03-31 Completed Universit y of Conjugate, PCV20 00:00:00 [place] [facility] (Prevnar 20) Branch SARS-COV-2 COVID-19 2022-03-31 Completed Unive rsity of JASPER-SUCROSE 00:00:00 [place] Medica l VACCINE 12 YRS+, Branch BIVALENT 0.3ML, IM, (PFIZER ROGER TOP BOOSTER) Pneumococcal 20 2022-03-31 Completed Universit y of Conjugate, PCV20 00:00:00 [place] Me [facility]ical (Prevnar 20) Branch SARS-COV-2 COVID-19 2022-03-31 Completed Unive rsity of JASPER-SUCROSE 00:00:00 [place] Medica l VACCINE 12 YRS+, Branch BIVALENT 0.3ML, IM, (PFIZER ROGER TOP BOOSTER) Pneumococcal 20 2022-03-31 Completed Universit y of Conjugate, PCV20 00:00:00 [place] [facility]ical (Prevnar 20) Branch SARS-COV-2 COVID-19 2022-03-31 Completed Unive rsity of JASPER-SUCROSE 00:00:00 [place] Medica l VACCINE 12 YRS+, Branch BIVALENT 0.3ML, IM, (PFIZER ROGER TOP BOOSTER) Pneumococcal 20 2022-03-31 Completed Universit y of Conjugate, PCV20 00:00:00 [place] [facility] (Prevnar 20) Branch SARS-COV-2 COVID-19 2022-03-31 Completed Unive rsity of JASPER-SUCROSE 00:00:00 [place] [facility]ica l VACCINE 12 YRS+, Branch BIVALENT 0.3ML, IM, (PFIZER ROGER TOP BOOSTER) Pneumococcal 20 2022-03-31 Completed Universit y of Conjugate, PCV20 00:00:00 [place] [facility] (Prevnar 20) Branch SARS-COV-2 COVID-19 2022-03-31 Completed Unive rsity of JASPER-SUCROSE 00:00:00 [place] Medica l VACCINE 12 YRS+, Branch BIVALENT 0.3ML, IM, (PFIZER ROGER TOP BOOSTER) Pneumococcal 20 2022-03-31 Completed Universit y of Conjugate, PCV20 00:00:00 [place] [facility] (Prevnar 20) Branch SARS-COV-2 COVID-19 2022-03-31 Completed Unive rsity of JASPER-SUCROSE 00:00:00 [place] Medica l VACCINE 12 YRS+, Branch BIVALENT 0.3ML, IM, (PFIZER ROGER TOP BOOSTER) Pneumococcal 20 2022-03-31 Completed Universit y of Conjugate, PCV20 00:00:00 [place] [facility] (Prevnar 20) Branch SARS-COV-2 COVID-19 2022-03-31 Completed Unive rsity of JASPER-SUCROSE 00:00:00 [place] Medica l VACCINE 12 YRS+, Branch BIVALENT 0.3ML, IM, (PFIZER ROGER TOP BOOSTER) Pneumococcal 20 2022-03-31 Completed Universit y of Conjugate, PCV20 00:00:00 [place] [facility] (Prevnar 20) Branch SARS-COV-2 COVID-19 2022-03-31 Completed Unive rsity of JASPER-SUCROSE 00:00:00 [place] Medica l VACCINE 12 YRS+, Branch BIVALENT 0.3ML, IM, (PFIZER ROGER TOP BOOSTER) Pneumococcal 20 2022-03-31 Completed Universit y of Conjugate, PCV20 00:00:00 [place] [facility] (Prevnar 20) Branch SARS-COV-2 COVID-19 2022-03-31 Completed Unive rsity of JASPER-SUCROSE 00:00:00 [place] Medica l VACCINE 12 YRS+, Branch BIVALENT 0.3ML, IM, (PFIZER ROGER TOP BOOSTER) Pneumococcal 2022-03-31 Completed Universit y of Conjugate, PCV20 00:00:00 [place] [facility] (Prevnar 20) Branch SARS-COV-2 COVID-19 2022-03-31 Completed Unive rsity of JASPER-SUCROSE 00:00:00 [place] Medica l VACCINE 12 YRS+, Branch BIVALENT 0.3ML, IM, (PFIZER ROGER TOP BOOSTER) Pneumococcal 2022-03-31 Completed Universit y of Conjugate, PCV20 00:00:00 [place] [facility] (Prevnar 20) Branch SARS-COV-2 COVID-19 2022-03-31 Completed Unive rsity of JASPER-SUCROSE 00:00:00 [place] Medica l VACCINE 12 YRS+, Branch BIVALENT 0.3ML, IM, (PFIZER ROGER TOP BOOSTER) Pneumococcal 2022-03-31 Completed Universit y of Conjugate, PCV20 00:00:00 [place] [facility] (Prevnar 20) Branch SARS-COV-2 COVID-19 2022-03-31 Completed Unive rsity of JASPER-SUCROSE 00:00:00 [place] Medica l VACCINE 12 YRS+, Branch BIVALENT 0.3ML, IM, (PFIZER ROGER TOP BOOSTER) Pneumococcal 2022-03-31 Completed Universit y of Conjugate, PCV20 00:00:00 [place] [facility] (Prevnar 20) Branch SARS-COV-2 COVID-19 2022-03-31 Completed Unive rsity of JASPER-SUCROSE 00:00:00 [place] Medica [facility] VACCINE 12 YRS+, Branch BIVALENT 0.3ML, IM, (PFIZER ROGER TOP BOOSTER) Pneumococcal 20 2022-03-31 Completed Universit y of Conjugate, PCV20 00:00:00 [place] [facility] (Prevnar 20) Branch SARS-COV-2 COVID-19 2022-03-31 Completed Unive rsity of JASPER-SUCROSE 00:00:00 [place] [facility] VACCINE 12 YRS+, Branch BIVALENT 0.3ML, IM, (PFIZER ROGER TOP BOOSTER) SARS-COV-2 COVID-19 2021-03-27 Completed Unive rsity of PFIZER VACCINE 00:00:00 [place] [facility] Branch SARS-COV-2 COVID-19 2021-03-27 Completed Unive rsity of PFIZER VACCINE 00:00:00 [facility] Branch SARS-COV-2 COVID-19 2021-03-27 Completed Unive rsity of PFIZER VACCINE 00:00:00 [facility] Branch SARS-COV-2 COVID-19 2021-03-27 Completed Unive rsity of PFIZER VACCINE 00:00:00 [facility] Branch SARS-COV-2 COVID-19 2021-03-27 Completed Unive rsity of PFIZER VACCINE 00:00:00 [facility] Branch SARS-COV-2 COVID-19 2021-03-27 Completed Unive rsity of PFIZER VACCINE 00:00:00 [facility] Branch SARS-COV-2 COVID-19 2021-03-27 Completed Unive rsity of PFIZER VACCINE 00:00:00 [facility] Branch SARS-COV-2 COVID-19 2021-03-27 Completed Unive rsity of PFIZER VACCINE 00:00:00 [facility] Branch SARS-COV-2 COVID-19 2021-03-27 Completed Unive rsity of PFIZER VACCINE 00:00:00 [facility] Branch SARS-COV-2 COVID-19 2021-03-27 Completed Unive rsity of PFIZER VACCINE 00:00:00 [facility] Branch SARS-COV-2 COVID-19 2021-03-27 Completed Unive rsity of PFIZER VACCINE 00:00:00 [facility] Branch SARS-COV-2 COVID-19 2021-03-27 Completed Unive rsity of PFIZER VACCINE 00:00:00 [facility] Branch SARS-COV-2 COVID-19 2021-03-27 Completed Unive rsity of PFIZER VACCINE 00:00:00 [facility] Branch SARS-COV-2 COVID-19 2021-03-27 Completed Unive rsity of PFIZER VACCINE 00:00:00 [facility] SARS-COV-2 COVID-19 2021-03-27 Completed Unive rsity of PFIZER VACCINE 00:00:00 [facility] SARS-COV-2 COVID-19 2021-03-27 Completed Unive rsity of PFIZER VACCINE 00:00:00 [facility] SARS-COV-2 COVID-19 2021-03-27 Completed Unive rsity of PFIZER VACCINE 00:00:00 [facility] TDAP 2021-03-01 Completed University of 00:00:00 [facility] TDAP 2021-03-01 Completed University of 00:00:00 [facility] TDAP 2021-03-01 Completed University of 00:00:00 [facility] TDAP 2021-03-01 Completed University of 00:00:00 [facility] TDAP 2021-03-01 Completed University of 00:00:00 [facility] TDAP 2021-03-01 Completed University of 00:00:00 [facility] TDAP 2021-03-01 Completed University of 00:00:00 [facility] TDAP 2021-03-01 Completed University of 00:00:00 [facility] TDAP 2021-03-01 Completed University of 00:00:00 [facility] TDAP 2021-03-01 Completed University of 00:00:00 [facility] TDAP 2021-03-01 Completed University of 00:00:00 [facility] TDAP 2021-03-01 Completed University of 00:00:00 [facility] TDAP 2021-03-01 Completed University of 00:00:00 [facility] TDAP 2021-03-01 Completed University of 00:00:00 [facility] TDAP 2021-03-01 Completed University of 00:00:00 [facility] TDAP 2021-03-01 Completed University of 00:00:00 [facility] TDAP 2021-03-01 Completed University of 00:00:00 [facility] TDAP 2021-03-01 Completed University of 00:00:00 [facility] TDAP 2021-03-01 Completed University of 00:00:00 [facility] TDAP 2021-03-01 Completed University of 00:00:00 [facility] TDAP 2021-03-01 Completed University of 00:00:00 [facility] TDAP 2021-03-01 Completed University of 00:00:00 [facility] TDAP 2021-03-01 Completed University of 00:00:00 [facility] TDAP 2021-03-01 Completed University of 00:00:00 [facility] TDAP 2021-03-01 Completed University of 00:00:00 [facility] TDAP 2021-03-01 Completed University of 00:00:00 [facility] TDAP 2021-03-01 Completed University of 00:00:00 [facility] Pfizer COVID-19 Pfizer COVID-19 2021-01-21 Completed Vaccine Vaccine 00:00:00 Pfizer COVID-19 Pfizer COVID-19 2020-07-20 Completed Vaccine Vaccine 00:00:00 SARS-COV-2 COVID-19 2020-07-20 Completed Unive rsity of PFIZER VACCINE 00:00:00 [facility] SARS-COV-2 COVID-19 2020-07-20 Completed Unive rsity of PFIZER VACCINE 00:00:00 [facility] SARS-COV-2 COVID-19 2020-07-20 Completed Unive rsity of PFIZER VACCINE 00:00:00 [facility] SARS-COV-2 COVID-19 2020-07-20 Completed Unive rsity of PFIZER VACCINE 00:00:00 [facility] SARS-COV-2 COVID-19 2020-07-20 Completed Unive rsity of PFIZER VACCINE 00:00:00 [facility] SARS-COV-2 COVID-19 2020-07-20 Completed Unive rsity of PFIZER VACCINE 00:00:00 [facility] SARS-COV-2 COVID-19 2020-07-20 Completed Unive rsity of PFIZER VACCINE 00:00:00 [facility] SARS-COV-2 COVID-19 2020-07-20 Completed Unive rsity of PFIZER VACCINE 00:00:00 [facility] SARS-COV-2 COVID-19 2020-07-20 Completed Unive rsity of PFIZER VACCINE 00:00:00 [facility] SARS-COV-2 COVID-19 2020-07-20 Completed [facility]ity of PFIZER VACCINE 00:00:00 [facility] SARS-COV-2 COVID-19 2020-07-20 Completed Unive rsity of PFIZER VACCINE 00:00:00 [facility] SARS-COV-2 COVID-19 2020-07-20 Completed Unive rsity of PFIZER VACCINE 00:00:00 [facility] SARS-COV-2 COVID-19 2020-07-20 Completed Unive rsity of PFIZER VACCINE 00:00:00 [facility] SARS-COV-2 COVID-19 2020-07-20 Completed Unive rsity of PFIZER VACCINE 00:00:00 [facility] SARS-COV-2 COVID-19 2020-07-20 Completed Unive rsity of PFIZER VACCINE 00:00:00 [facility] SARS-COV-2 COVID-19 2020-07-20 Completed Unive rsity of PFIZER VACCINE 00:00:00 [facility] SARS-COV-2 COVID-19 2020-07-20 Completed Unive rsity of PFIZER VACCINE 00:00:00 [facility] SARS-COV-2 COVID-19 2020-07-20 Completed Unive rsity of PFIZER VACCINE 00:00:00 [facility] SARS-COV-2 COVID-19 2020-07-20 Completed Unive rsity of PFIZER VACCINE 00:00:00 [facility] SARS-COV-2 COVID-19 2020-07-20 Completed Unive rsity of PFIZER VACCINE 00:00:00 [facility] SARS-COV-2 COVID-19 2020-07-20 Completed Unive rsity of PFIZER VACCINE 00:00:00 [facility] SARS-COV-2 COVID-19 2020-07-20 Completed Unive rsity of PFIZER VACCINE 00:00:00 [facility] SARS-COV-2 COVID-19 2020-07-20 Completed Unive rsity of PFIZER VACCINE 00:00:00 [facility] SARS-COV-2 COVID-19 2020-07-20 Completed Unive rsity of PFIZER VACCINE 00:00:00 [facility] SARS-COV-2 COVID-19 2020-07-20 Completed Unive rsity of PFIZER VACCINE 00:00:00 [facility] SARS-COV-2 COVID-19 2020-07-20 Completed Unive rsity of PFIZER VACCINE 00:00:00 [facility] SARS-COV-2 COVID-19 2020-07-20 Completed Unive rsity of PFIZER VACCINE 00:00:00 [facility] Pfizer COVID-19 Pfizer COVID-19 2020-06-29 Completed Vaccine Vaccine 00:00:00 SARS-COV-2 COVID-19 2020-06-29 Completed Unive rsity of PFIZER VACCINE 00:00:00 [facility] SARS-COV-2 COVID-19 2020-06-29 Completed Unive rsity of PFIZER VACCINE 00:00:00 [facility] SARS-COV-2 COVID-19 2020-06-29 Completed [facility]ive rsity of PFIZER VACCINE 00:00:00 [facility] SARS-COV-2 COVID-19 2020-06-29 Completed [facility]ive rsity of PFIZER VACCINE 00:00:00 [facility] SARS-COV-2 COVID-19 2020-06-29 Completed [facility]ive rsity of PFIZER VACCINE 00:00:00 [facility] SARS-COV-2 COVID-19 2020-06-29 Completed [facility]ive rsity of PFIZER VACCINE 00:00:00 [facility] SARS-COV-2 COVID-19 2020-06-29 Completed [facility]ive rsity of PFIZER VACCINE 00:00:00 [facility] SARS-COV-2 COVID-19 2020-06-29 Completed [facility]ive rsity of PFIZER VACCINE 00:00:00 [facility] SARS-COV-2 COVID-19 2020-06-29 Completed [facility]ive rsity of PFIZER VACCINE 00:00:00 [facility] SARS-COV-2 COVID-19 2020-06-29 Completed [facility]ive rsity of PFIZER VACCINE 00:00:00 [facility] SARS-COV-2 COVID-19 2020-06-29 Completed [facility]ive rsity of PFIZER VACCINE 00:00:00 [facility] SARS-COV-2 COVID-19 2020-06-29 Completed [facility]ive rsity of PFIZER VACCINE 00:00:00 [facility] SARS-COV-2 COVID-19 2020-06-29 Completed [facility]ive rsity of PFIZER VACCINE 00:00:00 [facility] SARS-COV-2 COVID-19 2020-06-29 Completed [facility]ive rsity of PFIZER VACCINE 00:00:00 [facility] SARS-COV-2 COVID-19 2020-06-29 Completed Unive rsity of PFIZER VACCINE 00:00:00 [facility] SARS-COV-2 COVID-19 2020-06-29 Completed [facility]ive rsity of PFIZER VACCINE 00:00:00 [facility] SARS-COV-2 COVID-19 2020-06-29 Completed Unive rsity of PFIZER VACCINE 00:00:00 [facility] SARS-COV-2 COVID-19 2020-06-29 Completed Unive rsity of PFIZER VACCINE 00:00:00 [facility] SARS-COV-2 COVID-19 2020-06-29 Completed Unive rsity of PFIZER VACCINE 00:00:00 [facility] SARS-COV-2 COVID-19 2020-06-29 Completed Unive rsity of PFIZER VACCINE 00:00:00 [facility] SARS-COV-2 COVID-19 2020-06-29 Completed Unive rsity of PFIZER VACCINE 00:00:00 [facility] SARS-COV-2 COVID-19 2020-06-29 Completed [facility]ive rsity of PFIZER VACCINE 00:00:00 [facility] SARS-COV-2 COVID-19 2020-06-29 Completed [facility]ive rsity of PFIZER VACCINE 00:00:00 [facility] SARS-COV-2 COVID-19 2020-06-29 Completed [facility]ive rsity of PFIZER VACCINE 00:00:00 [facility] SARS-COV-2 COVID-19 2020-06-29 Completed [facility]ive rsity of PFIZER VACCINE 00:00:00 [facility] SARS-COV-2 COVID-19 2020-06-29 Completed [facility]ive rsity of PFIZER VACCINE 00:00:00 [facility] SARS-COV-2 COVID-19 2020-06-29 Completed [facility]ive rsity of PFIZER VACCINE 00:00:00 [facility] Influenza Virus 2018-04-12 Completed Universit y of Vaccine Quad .5 mL 00:00:00 [facility] Influenza Virus 2018-04-12 Completed [facility]it y of Vaccine Quad .5 mL 00:00:00 [facility] Influenza Virus 2018-04-12 Completed [facility]it y of Vaccine Quad .5 mL 00:00:00 [facility] Influenza Virus 2018-04-12 Completed [facility]it y of Vaccine Quad .5 mL 00:00:00 [facility] Influenza Virus 2018-04-12 Completed [facility]it y of Vaccine Quad .5 mL 00:00:00 [facility] Influenza Virus 2018-04-12 Completed [facility]it y of Vaccine Quad .5 mL 00:00:00 [facility] 6[facility] Influenza Virus 2018-04-12 Completed [facility]it y of Vaccine Quad .5 mL 00:00:00 [facility] 6[facility] Influenza Virus 2018-04-12 Completed [facility]it y of Vaccine Quad .5 mL 00:00:00 [facility] 6[facility] Influenza Virus 2018-04-12 Completed [facility]it y of Vaccine Quad .5 mL 00:00:00 [facility] 6[facility] Influenza Virus 2018-04-12 Completed [facility]it y of Vaccine Quad .5 mL 00:00:00 [facility] 6[facility] Influenza Virus 2018-04-12 Completed [facility]it y of Vaccine Quad .5 mL 00:00:00 [facility] 6[facility] MO [facility] Influenza Virus 2018-04-12 Completed [facility]it y of Vaccine Quad .5 mL 00:00:00 [facility] 6[facility] Influenza Virus 2018-04-12 Completed [facility]it y of Vaccine Quad .5 mL 00:00:00 [facility] 6+ [facility] Influenza Virus 2018-04-12 Completed [facility]it y of Vaccine Quad .5 mL 00:00:00 [facility] 6+ MO [facility] Influenza Virus 2018-04-12 Completed [facility]it y of Vaccine Quad .5 mL 00:00:00 [facility] 6+ [facility] Influenza Virus 2018-04-12 Completed [facility]it y of Vaccine Quad .5 mL 00:00:00 [facility] 6[facility] Influenza Virus 2018-04-12 Completed [facility]it y of Vaccine Quad .5 mL 00:00:00 [facility] 6+ MO [facility] Influenza Virus 2018-04-12 Completed [facility]it y of Vaccine Quad .5 mL 00:00:00 [facility] 6[facility] Influenza Virus 2018-04-12 Completed [facility]it y of Vaccine Quad .5 mL 00:00:00 [facility] 6+ MO [facility] Influenza Virus 2018-04-12 Completed [facility]it y of Vaccine Quad .5 mL 00:00:00 [facility] 6+ MO [facility] Influenza Virus 2018-04-12 Completed [facility]it y of Vaccine Quad .5 mL 00:00:00 [facility] 6+ MO [facility] Influenza Virus 2018-04-12 Completed [facility]it y of Vaccine Quad .5 mL 00:00:00 [facility] 6+ MO [facility] Influenza Virus 2018-04-12 Completed [facility]it y of Vaccine Quad .5 mL 00:00:00 [facility] 6+ MO [facility] Influenza Virus 2018-04-12 Completed [facility]it y of Vaccine Quad .5 mL 00:00:00 [facility] 6+ MO [facility] Influenza Virus 2018-04-12 Completed Universit y of Vaccine Quad .5 mL 00:00:00 [facility] 6[facility] MO [facility] Influenza Virus 2018-04-12 Completed Universit y of Vaccine Quad .5 mL 00:00:00 [facility] 6+ MO [facility] Influenza Virus 2018-04-12 Completed [facility]it y of Vaccine Quad .5 mL 00:00:00 [facility] 6+ MO [facility] Influenza Virus 2014-04-12 Completed Universit y of Vaccine Quad IM 3+ 00:00:00 [facility] Influenza Virus 2014-04-12 Completed Universit y of Vaccine Quad IM 3+ 00:00:00 [facility] Influenza Virus 2014-04-12 Completed Universit y of Vaccine Quad IM 3+ 00:00:00 [facility] Influenza Virus 2014-04-12 Completed Universit y of Vaccine Quad IM 3+ 00:00:00 [facility] Influenza Virus 2014-04-12 Completed Universit y of Vaccine Quad IM 3+ 00:00:00 [facility] Influenza Virus 2014-04-12 Completed Universit y of Vaccine Quad IM 3+ 00:00:00 [facility] Influenza Virus 2014-04-12 Completed Universit y of Vaccine Quad IM 3+ 00:00:00 [facility] Influenza Virus 2014-04-12 Completed Universit y of Vaccine Quad IM 3+ 00:00:00 [facility] Influenza Virus 2014-04-12 Completed [facility]it y of Vaccine Quad IM 3+ 00:00:00 [facility] Influenza Virus 2014-04-12 Completed Universit y of Vaccine Quad IM 3+ 00:00:00 [facility] Influenza Virus 2014-04-12 Completed Universit y of Vaccine Quad IM 3+ 00:00:00 [facility] Influenza Virus 2014-04-12 Completed Universit y of Vaccine Quad IM 3+ 00:00:00 [facility] Influenza Virus 2014-04-12 Completed Universit y of Vaccine Quad IM 3+ 00:00:00 [facility] Influenza Virus 2014-04-12 Completed Universit y of Vaccine Quad IM 3+ 00:00:00 [facility] Influenza Virus 2014-04-12 Completed Universit y of Vaccine Quad IM 3+ 00:00:00 [facility] Influenza Virus 2014-04-12 Completed Universit y of Vaccine Quad IM 3+ 00:00:00 [facility] Influenza Virus 2014-04-12 Completed Universit y of Vaccine Quad IM 3+ 00:00:00 [facility] Influenza Virus 2014-04-12 Completed Universit y of Vaccine Quad IM 3+ 00:00:00 [facility] Influenza Virus 2014-04-12 Completed Universit y of Vaccine Quad IM 3+ 00:00:00 [facility] Influenza Virus 2014-04-12 Completed Universit y of Vaccine Quad IM 3+ 00:00:00 [facility] Influenza Virus 2014-04-12 Completed Universit y of Vaccine Quad IM 3+ 00:00:00 [facility] Influenza Virus 2014-04-12 Completed Universit y of Vaccine Quad IM 3+ 00:00:00 [facility] Influenza Virus 2014-04-12 Completed Universit y of Vaccine Quad IM 3+ 00:00:00 [facility] Influenza Virus 2014-04-12 Completed Universit y of Vaccine Quad IM 3+ 00:00:00 [facility] Influenza Virus 2014-04-12 Completed Universit y of Vaccine Quad IM 3+ 00:00:00 [facility] Influenza Virus 2014-04-12 Completed Universit y of Vaccine Quad IM 3+ 00:00:00 [facility] Influenza Virus 2014-04-12 Completed Universit y of Vaccine Quad IM 3+ 00:00:00 [facility] Pneumococcal 2013-04-22 Completed University o f Polysaccharide, 00:00:00 [facility] PPSV23 (PNEUMOVAX) Branch Influenza Virus 2013-04-22 Completed Universit y of Vaccine (3+ yrs) 00:00:00 [facility] 2013-04-22 Completed University o f Polysaccharide, 00:00:00 [facility] PPSV23 (PNEUMOVAX) Branch Influenza Virus 2013-04-22 Completed Universit y of Vaccine (3+ yrs) 00:00:00 [facility] Pneumococcal 2013-04-22 Completed University o f Polysaccharide, 00:00:00 [facility] PPSV23 (PNEUMOVAX) Branch Influenza Virus 2013-04-22 Completed Universit y of Vaccine (3+ yrs) 00:00:00 [facility] Pneumococcal 2013-04-22 Completed University o f Polysaccharide, 00:00:00 [facility] PPSV23 (PNEUMOVAX) Branch Influenza Virus 2013-04-22 Completed Universit y of Vaccine (3+ yrs) 00:00:00 [facility] Pneumococcal 2013-04-22 Completed University o f Polysaccharide, 00:00:00 [facility] PPSV23 (PNEUMOVAX) Branch Influenza Virus 2013-04-22 Completed Universit y of Vaccine (3+ yrs) 00:00:00 [facility] Pneumococcal 2013-04-22 Completed University o f Polysaccharide, 00:00:00 [facility] ical PPSV23 (PNEUMOVAX) Branch Influenza Virus 2013-04-22 Completed Universit y of Vaccine (3+ yrs) 00:00:00 [facility] Pneumococcal 2013-04-22 Completed University o f Polysaccharide, 00:00:00 [facility] PPSV23 (PNEUMOVAX) Branch Influenza Virus 2013-04-22 Completed Universit y of Vaccine (3+ yrs) 00:00:00 [facility] Pneumococcal 2013-04-22 Completed University o f Polysaccharide, 00:00:00 [facility] PPSV23 (PNEUMOVAX) Branch Influenza Virus 2013-04-22 Completed Universit y of Vaccine (3+ yrs) 00:00:00 [facility] Pneumococcal 2013-04-22 Completed University o f Polysaccharide, 00:00:00 [facility] PPSV23 (PNEUMOVAX) Branch Influenza Virus 2013-04-22 Completed Universit y of Vaccine (3+ yrs) 00:00:00 [facility] Pneumococcal 2013-04-22 Completed University o f Polysaccharide, 00:00:00 [facility] PPSV23 (PNEUMOVAX) Branch Influenza Virus 2013-04-22 Completed Universit y of Vaccine (3+ yrs) 00:00:00 [facility] Pneumococcal 2013-04-22 Completed University o f Polysaccharide, 00:00:00 [facility] PPSV23 (PNEUMOVAX) Branch Influenza Virus 2013-04-22 Completed Universit y of Vaccine (3+ yrs) 00:00:00 [facility] Pneumococcal 2013-04-22 Completed University o f Polysaccharide, 00:00:00 [facility] PPSV23 (PNEUMOVAX) Branch Influenza Virus 2013-04-22 Completed Universit y of Vaccine (3+ yrs) 00:00:00 [facility] Pneumococcal 2013-04-22 Completed University o f Polysaccharide, 00:00:00 [facility] PPSV23 (PNEUMOVAX) Branch Influenza Virus 2013-04-22 Completed Universit y of Vaccine (3+ yrs) 00:00:00 [facility] Pneumococcal 2013-04-22 Completed University o f Polysaccharide, 00:00:00 [facility] PPSV23 (PNEUMOVAX) Branch Influenza Virus 2013-04-22 Completed Universit y of Vaccine (3+ yrs) 00:00:00 [facility] Pneumococcal 2013-04-22 Completed University o f Polysaccharide, 00:00:00 [facility] PPSV23 (PNEUMOVAX) Branch Influenza Virus 2013-04-22 Completed Universit y of Vaccine (3+ yrs) 00:00:00 [facility] Pneumococcal 2013-04-22 Completed University o f Polysaccharide, 00:00:00 [facility] PPSV23 (PNEUMOVAX) Branch Influenza Virus 2013-04-22 Completed Universit y of Vaccine (3+ yrs) 00:00:00 [facility] Pneumococcal 2013-04-22 Completed University o f Polysaccharide, 00:00:00 [facility] PPSV23 (PNEUMOVAX) Branch Influenza Virus 2013-04-22 Completed Universit y of Vaccine (3+ yrs) 00:00:00 [facility] Pneumococcal 2013-04-22 Completed University o f Polysaccharide, 00:00:00 [facility] PPSV23 (PNEUMOVAX) Branch Influenza Virus 2013-04-22 Completed Universit y of Vaccine (3+ yrs) 00:00:00 [facility] Pneumococcal 2013-04-22 Completed University o f Polysaccharide, 00:00:00 [facility] PPSV23 (PNEUMOVAX) Branch Influenza Virus 2013-04-22 Completed Universit y of Vaccine (3+ yrs) 00:00:00 [facility] Pneumococcal 2013-04-22 Completed University o f Polysaccharide, 00:00:00 [facility] PPSV23 (PNEUMOVAX) Branch Influenza Virus 2013-04-22 Completed Universit y of Vaccine (3+ yrs) 00:00:00 [facility] Pneumococcal 2013-04-22 Completed University o f Polysaccharide, 00:00:00 [facility] PPSV23 (PNEUMOVAX) Branch Influenza Virus 2013-04-22 Completed Universit y of Vaccine (3+ yrs) 00:00:00 [facility] Pneumococcal 2013-04-22 Completed University o f Polysaccharide, 00:00:00 [facility] PPSV23 (PNEUMOVAX) Branch Influenza Virus 2013-04-22 Completed Universit y of Vaccine (3+ yrs) 00:00:00 [facility] Pneumococcal 2013-04-22 Completed University o f Polysaccharide, 00:00:00 [facility] PPSV23 (PNEUMOVAX) Branch Influenza Virus 2013-04-22 Completed Universit y of Vaccine (3+ yrs) 00:00:00 [facility] Pneumococcal 2013-04-22 Completed University o f Polysaccharide, 00:00:00 [facility] PPSV23 (PNEUMOVAX) Branch Influenza Virus 2013-04-22 Completed Universit y of Vaccine (3+ yrs) 00:00:00 [facility] Pneumococcal 2013-04-22 Completed University o f Polysaccharide, 00:00:00 [facility] PPSV23 (PNEUMOVAX) Branch Influenza Virus 2013-04-22 Completed Universit y of Vaccine (3+ yrs) 00:00:00 [facility] Pneumococcal 2013-04-22 Completed University o f Polysaccharide, 00:00:00 [facility] PPSV23 (PNEUMOVAX) Branch Influenza Virus 2013-04-22 Completed Universit y of Vaccine (3+ yrs) 00:00:00 [facility] Pneumococcal 2013-04-22 Completed University o f Polysaccharide, 00:00:00 [facility] PPSV23 (PNEUMOVAX) Branch Influenza Virus 2013-04-22 Completed Universit y of Vaccine (3+ yrs) 00:00:00 [facility] Vital Signs Vital Name Observation Time Observation Value Comments Source Systolic blood 2022-03-31 19:54:00 107 mm[Hg] Univer [facility]ity of pressure [facility] Diastolic blood 2022-03-31 19:54:00 73 mm[Hg] Unive rsity of pressure [facility] Heart rate 2022-03-31 19:54:00 94 /min [facility] Body temperature 2022-03-31 19:54:00 37 Sabrina Univ ers[facility] Body height 2022-03-31 19:54:00 171.5 cm [facility] Body weight 2022-03-31 19:54:00 72.576 kg [facility] BMI 2022-03-31 19:54:00 24.69 kg/m2 [facility] Oxygen saturation in 2022-03-31 19:54:00 95 /min University of Arterial blood by [facility] Pulse oximetry Branch Systolic blood 2022-03-05 19:52:00 136 mm[Hg] Univer sity of pressure [facility] Diastolic blood 2022-03-05 19:52:00 83 mm[Hg] Unive rsity of pressure [facility] Heart rate 2022-03-05 19:52:00 98 /min [facility] Body temperature 2022-03-05 19:52:00 36.72 Sabrina [facility] Respiratory rate 2022-03-05 19:52:00 18 /min [facility] Body height 2022-03-05 19:52:00 171.5 cm [facility] Body weight 2022-03-05 19:52:00 73.936 kg [facility] BMI 2022-03-05 19:52:00 25.15 kg/m2 [facility] Systolic blood 2022-01-24 18:20:00 131 mm[Hg] [facility]iver [facility]ity of pressure [facility] Diastolic blood 2022-01-24 18:20:00 91 mm[Hg] [facility]ive rsity of pressure [facility] Heart rate 2022-01-24 18:19:00 102 /min [facility] Body temperature 2022-01-24 18:19:00 36.72 Sabrina [facility] Body height 2022-01-24 18:19:00 171.5 cm [facility] Body weight 2022-01-24 18:19:00 74.707 kg [facility] BMI 2022-01-24 18:19:00 25.41 kg/m2 Universi ty [facility] Oxygen saturation in 2022-01-24 18:19:00 97 /min University of Arterial blood by [facility] Pulse oximetry Branch Systolic blood 2022-01-24 18:20:00 131 mm[Hg] [facility] of [facility] [place] Diastolic blood 2022-01-24 18:20:00 91 mm[Hg] Unive rsity of pressure [facility] Heart rate 2022-01-24 18:19:00 102 /min [facility]i ty of [facility] Body temperature 2022-01-24 18:19:00 36.72 Sabrina [facility] Body height 2022-01-24 18:19:00 171.5 cm [facility] [place] Body weight 2022-01-24 18:19:00 74.707 kg Universi ty [facility] BMI 2022-01-24 18:19:00 25.41 kg/m2 Universi ty [facility] Oxygen saturation in 2022-01-24 18:19:00 97 /min University of Arterial blood by [facility] Pulse oximetry Branch Respiratory rate 2021-11-22 18:55:00 20 /min [facility] Procedures Procedure Date / Time Performing Clinician Source Performed SARS-COV-2 COVID-19 2022-03-31 20:06:29 Sarita Santacruz [facility] JASPER-SUCROSE VACCINE [address] [place] [address] Branch YRS+, BIVALENT 0.3ML, IM, (PFIZER ROGER TOP BOOSTER) PNEUMOCOCCAL 20 CONJUGATE 2022-03-31 20:01:27 Sarita Santcaruz [facility] (PREVNAR 20) VACCINE [facility] REFERRAL- 2022-03-31 05:01:00 Doctor Unassigned, [facility] REQUEST/RESPONSE [facility] INSURANCE CORRESPONDENCE 2022-03-10 05:01:00 Doctor Unassigned, [facility] CBC WITH DIFF 2022-01-24 21:07:00 Kley, [facility] GLYCOSYLATED HEMOGLOBIN 2022-01-24 21:07[facility] COMP. METABOLIC PANEL 2022-01-24 21:07:00 Vonda [facility] ([id number]) [facility] IONIZED CALCIUM 2022-01-24 21:07[facility] 2022-01-24 21:07:00 Vonda [facility] HORMONE [facility] THYROXINE, TOTAL 2022-01-24 21:07:[address] [facility] CBC WITH DIFF 2022-01-24 21:07[facility]00 [facility] 2022-01-24 [facility] 2022-01-24 19:17:00 [facility] POCT URINALYSIS 2022-01-24 19:00[facility] 2022-01-24 19:00[facility]00 [facility] Plan of Care Planned Activity Planned Date Details Comments Source Future Scheduled 2022-05-31 COVID-19 VACCINE (#1) [facility] Test 07:02:30 [code = COVID-19 VACCINE (#1)] Future Scheduled 2022-05-31 Pneumococcal Vaccine: [facility] Test 07:02:30 Pediatrics (0 to 5 Years) and At-Risk Patients (6 to 64 Years) (1 - PCV) [code = Pneumococcal Vaccine: Pediatrics (0 to 5 Years) and At-Risk Patients (6 to 64 Years) (1 - PCV)] Future Scheduled 2022-05-31 DIABETES: RETINAL EYE [facility] Test 07:02:30 EXAM [code = DIABETES: RETINAL EYE EXAM] Future Scheduled 2022-05-[address] [facility] Test 07:02:30 [code = DIABETIC FOOT EXAM] Future Scheduled 2022-05-[address] [facility] Test 07:02:30 [code = URINE MICROALBUMIN] Future Scheduled 2022-05-31 [facility]30 (procedure) [code = [id number]] Future Scheduled 2022-05-31 [facility] 07:02:30 malignant neoplasm of cervix (procedure) [code = 225383665] Future Scheduled 2022-05-31 BREAST CANCER [facility] Test 07:02:30 SCREENING [code = BREAST CANCER SCREENING] Future Scheduled 2022-05-31 [facility] 07:02:30 [code = INFLUENZA VACCINE] Future Scheduled 2022-03-08 [facility] Influenza [facility] 00:00:00 (>/= 19 yrs) [code = IMM Influenza Seasonal (>/= 19 yrs)] Future Scheduled 2018 [facility] 00:00:00 (Yearly) [code = Breast Cancer Scrn (Yearly)] Future Scheduled [facility]:00 malignant neoplasm of cervix (procedure) [code = 917695046] Future Scheduled 2008 Screening for [facility] 00:00:00 malignant neoplasm of cervix (procedure) [code = 307730837] Future Scheduled 1979-02-07 COVID-19 Vaccine (#1) [facility] 00:00:00 [code = COVID-19 Vaccine (#1)] Encounters Start End Encounter Admission Attending Care Care Encounter Source Date/Time Date/Time Type Type Clinicians Facility Department ID 2022-07-03 2022-07-03 [id number] Univers 14:20[facility]00 [facility] 2022-05-29 Outpatient Abel SANTACRUZ [facility] [id number] Univers 10:40:00 10:40:00 SARITA [facility] 2022-05-26 2022-05-26 Outpatient Abel VARGAS [facility] [id number] Univers 00:00:00 00:00:00 POLLY [facility] 2022-05-21 2022-05-21 Patient Rima [facility] 1.2.840.114 [id number] Univers 00:00:00 00:00:00 Secure [facility] 350.1.13.10 [facility] 4.2.7.2.686 Jon as STEPHANIE?BLEA [phone] Wi migue [address] MEDICAL OFFICE [facility] 2022-05-21 2022-05-21 [facility]phone [facility] 1.2.957.876 [id number] Univers 00:00:00 00:00:00 [facility] 350.1.13.10 ity of [place] 4.2.7.2.686 Jon as STEPHANIE?BLEA [phone] Wi migue [address] OFFICE [facility] 2022-05-19 2022-05-19 [facility] 1.2.840.114 [id number] Univers 00:00:00 00:00:00 Sarita LEAGUE 350.1.13.10 ity of [facility] [place] [phone] [facility] AND [address] [place] [address] [facility] 2022-05-16 2022-05-16 [facility] 1.2.840.114 [id number] Univers 00:00:00 00:00:00 Sarita LEAGUE 350.1.13.10 ity of [facility] [place] [phone] [facility] AND [address] [place] [address] E CLINIC 2022-05-06 2022-05-06 Outpatient R NEETU [facility] [id number] Univers 14:30:00 14:30:00 [facility] 2022-05-06 2022-05-06 Outpatient R NEETU [facility] [id number] Univers 14:30:00 14:30:00 [facility] 2022-05-06 2022-05-06 Outpatient R NEETU [facility] [id number] Univers 14:30:00 14:30:00 [facility] 2022-05-06 2022-05-06 Outpatient R NEETU [facility] [id number] Univers 14:30:00 14:30:00 [facility] 2022-04-30 2022-04-30 [facility] 1.2.840.114 [id number] Univers 00:00:00 00:00:00 Alexsandra PENA 350.1.13.10 it y of [facility] 4.2.7.2.686 Jon as PEDIATRIC [phone] [address] 2022-04-30 2022-04-30 [facility] 1.2.840.114 [id number] Univers 00:00:00 00:00:00 [facility] 350.1.13.10 ity of [place] 4.2.7.2.686 Jon as STEPHANIE?BLEA [phone] [address] MEDICAL OFFICE [facility] 2022-04-22 2022-04-22 Patient [facility] 1.2.840.114 [id number] Univers 00:00:00 00:00:00 Secure [facility] 350.1.13.10 ity of [place] 4.2.7.2.686 Jon as STEPHANIE?BLEA [phone] [address] OFFICE [facility] 2022-04-21 2022-04-[address] [facility] 1.2.464.429 [id number] Univers 00:00:00 00:00:00 [facility] 350.1.13.10 ity of [place] 4.2.7.2.686 Jon as STEPHANIE?BLEA [id number] [address] OFFICE [facility] 2022-04-14 2022-04-14 Outpatient R ALICIA [facility] [id number] Univers 00:00:00 00:00:00 POLLY ity of [facility] 2022-04-09 2022-04-[address] [facility] 1.2.521.619 [id number] Univers 00:00:00 00:00:00 [facility] 350.1.13.10 ity of [place] 4.2.7.2.686 Jon as STEPHANIE?BLEA [phone] [address] OFFICE [facility] 2022-04-08 2022-04-08 Patient [facility] 1.2.840.114 [id number] Univers 00:00:00 00:00:00 Secure [facility] 350.1.13.10 ity of [place] 4.2.7.2.686 Jon as STEPHANIE?BLEA [phone] [address] MEDICAL OFFICE [facility] 2022-04-08 2022-04-08 [facility] 1.2.840.114 [id number] Univers 00:00:00 00:00:00 Sarita SRIROSEMARY 350.1.13.10 ity of [facility] 4.2[place] [phone] [facility] AND [address] [place] [address] E CLINIC 2022-04-01 2022-04-01 [facility] 1.2.840.114 [id number] Univers 00:00:00 00:00:00 Alexsandra PENA 350.1.13.10 it y of [facility] 4.2.7.2.686 Jon as PEDIATRIC [phone] [facility] AND [address] [place] [address] E CLINIC 2022-04-01 2022-04-01 Patient Vonda [facility] 1.2.840.114 [id number] Univers 00:00:00 00:00:00 Secure [facility] 350.1.13.10 ity of [place] 4.2.7.2.686 Jon as STEPHANIE?BLEA [id number] [address] OFFICE [facility] 2022-03-31 2022-03-31 [facility] [id number] Univers 14:20:00 16:03:25 SARITA ity of [facility] 2022-03-31 2022-03-[address] [facility] 1.2.840.114 [id number] Univers 14:20:00 16:03:25 Visit [facility] 350.1.13.10 ity of [place] 4.2.7.2.686 Jon as STEPHANIE?BLEA [phone] [address] OFFICE [facility] 2022-03-31 2022-03-31 Orders Doctor JONES 1.2.840.114 [id number] Univers 00:00:00 00:00:00 Only Unassigned, MAURO 350.1.13.10 ity of [place] [facility] 4.2.7.2.686 Jon as [phone] [address] 2022-03-27 2022-03-27 Outpatient R REXArsenio [facility] [id number] Univers 14:20:00 14:20:00 SARITA maylinarsenio [facility] 2022-03-21 2022-03-21 Outpatient R TOBY [facility] [id number] Univers 14:00:00 14:00:00 SYDNEY maylinarsenio [facility] 2022-03-17 2022-03-17 Patient [facility] 1.2.840.114 [id number] Univers 00:00:00 00:00:00 Secure [facility] 350.1.13.10 ity of [place] 4.2.7.2.686 Jon as STEPHANIE?BLEA [phone] Me dical [place] [address] [place] MEDICAL OFFICE BUILDING 2022-03-11 2022-03-11 Refill [facility] 1.2.840.114 [id number] Univers 00:00:00 00:00:00 Sarita PENA 350.1.13.10 ity of [facility] [place].2.7.2.[place] [phone] Wi dical AND [address] [facility] CLINIC 2022-03-10 2022-03-10 Orders Doctor ROBERT 1.2.840.114 [id number] Univers 00:00:00 00:00:00 Only Unassigned, MAURO 350.1.13.10 ity of [place] [facility] 4.2.7.2.686 Jon as [phone] [address] 2022-03-05 2022-03-05 Outpatient R ALICIA [facility] [id number] Univers 14:30:00 15:25:35 POLLY mandy [facility] 2022-03-05 2022-03-05 Office Alicia [facility] 1.2.984.079 [id number] Univers 14:30:00 15:25:35 Visit Polly WILLIAM 350.1.13.10 i ty of [place].7.2.[place] [phone] Me dical [facility] [address] BUILDING 2022-02-28 2022-02-28 Outpatient R NILA, [facility] [id number] Univers 12:45:00 12:45:00 [facility]22-[facility]-17 2022-02-17 Outpatient R ALICIA, [facility] [id number] Univers 14:30:00 14:30:00 POLLY [facility] 2022-02-15 2022-02-15 [facility] 1.2.840.114 [id number] Univers 00:00:00 00:00:00 Alexsandra PENA 350.1.13.10 it y of [facility] 4.2.7.2.686 Jon as PEDIATRIC [phone] [address] E CLINIC 2022-02-12 2022-02-12 [facility] [id number] Univers 14:00:00 14:00:00 OMKAR [facility] 2022-02-06 2022-02-06 Refrafia [place] 1.2.840.2 [id number] Univers 00:00:00 00:00:00 Alexsandra 09115.1.1 ity of [place] 3.104.2.7 [place] .3.390429 Medica l .[address] [place] 2022-01-24 2022-01-24 Street Department Dispatcher Sarita Santacruz 1.2.840.1 [id number] Univers 16:00:00 16:52:01 [place] [address].1.1 ity of 3.104.2.7 [place] .3.023610 Medica l .[address] [place] 2022-01-24 2022-01-24 Street Department Dispatcher Lab, Ang - Db [facility] 1.2.840.1 14 [id number] Univers 16:00:00 16:15:00 Visit Sarita Santacruz [facility] 350.1.13.10 ity of [place] 4.2.7.2.686 Jon as STEPHANIE?BLEA [phone] Wi migue [facility] [address] [place] MEDICAL OFFICE BUILDING 2022-01-24 2022-01-24 Out[facility] [id number] Univers 13:00:00 14:06:30 [facility] 2022-01-24 2022-01-[address] [facility] 1.2.840.114 [id number] Univers 13:00:00 14:06:30 Visit [facility] 350.1.13.10 ity of [place] 4.2.7.2.686 Jon as STEPHANIE?BLEA [phone] Wi timmygarrick JORDAN [address] [place] [address] MEDICAL OFFICE BUILDING 2022-01-24 2022-01-24 Outpatient R KLEY, [facility] [id number] Univers 13:00:00 14:06:30 [facility] 2022-01-24 2022-01-24 [facility] [id number] Univers 13:00:00 14:06:30 [facility] 2022-01-24 2022-01-24 [facility] [id number] Univers 13:00:00 14:06:30 [facility] 2022-01-24 2022-01-24 Outpatient R KLEY, [facility] [id number] Univers 13:00:00 14:06:30 [facility] 2022-01-24 2022-01-24 Patient Kley, 1.2.840.9 [id number] Univers 00:00:00 00:00:00 Secure Msg [place] 95609.1.1 ity of 3.104.2.7 [place] .3.039873 Medica l .[address] [place] [address] 2022-01-24 2022-01-24 Travel 1.2.840.1 1.2.747.526 [id number] [id number] Univers 00:00:00 00:00:00 41682.1.1 350.1.13.10 ity of 3.104.2.7 4.[place].7.3.698 [place] .3.804444 084.8 Medica l .8 [place] 2022-01-20 2022-01-20 Patient Doctor 1.2.840.8 [id number] Univers 00:00:00 00:00:00 Secure Msg Unassigned, 37765.1.1 ity of [place] 3.104.2.7 [place] .3.116647 Medica l .[address] [place] 2022-01-17 2022-01-17 Outpatient R VONDA, [facility] [id number] Univers 11:00:00 11:00:00 SARITA arsenio [facility] 2022-01-17 2022-01-17 [facility] 1.2.840.114 [id number] Univers 00:00:00 00:00:00 Alexsandra PENA 350.1.13.10 it y of [facility] 4.2.7.2.686 Jon as PEDIATRIC [phone] [facility] AND [address] [place] [address] 2022-01-17 2022-01-17 Refrafia [place], 1.2.840.2 [id number] Univers 00:00:00 00:00:00 Alexsandra 49677.1.1 ity of [place] 3.104.2.7 [place] .3.768719 Medica l .[address] [place] 2022-01-16 2022-01-16 Outpatient Abel GUY, [facility] [id number] Univers 10:15:00 10:15:00 LAKEISHA [facility] 2022-01-14 2022-01-14 Travel 1.2.840.1 1.2.959.091 [id number] Univers 00:00:00 00:00:00 37354.1.1 350.1.13.10 ity of 3.104.2.7 4.2.7.3.698 [place] .3.173041 084.8 Medica l .8 [place] 2022-01-14 2022-01-14 [facility] 1.2.840.114 [id number] Univers 00:00:00 00:00:00 Alexsandra PENA 350.1.13.10 it y of [facility] 4.2.7.2.686 Jon as PEDIATRIC [phone] [facility] AND [address] [place] [address] 2022-01-14 2022-01-14 Travel 1.2.840.1 1.2.754.284 [id number] Univers 00:00:00 00:00:00 68852.1.1 350.1.13.10 ity of 3.104.2.7 4.2.7.3.698 [place] .3.389038 084.8 Medica l .[address] [place] 2022-01-14 2022-01-14 Refill [place], 1.2.840.7 [id number] Univers 00:00:00 00:00:00 Alexsandra 52985.1.1 ity of [place] 3.104.2.7 [place] .3.638056 Medica l .8 [place] 2022-01-08 2022-01-08 Refill [place], 1.2.840.7 [id number] Univers 00:00:00 00:00:00 Alexsandra 65356.1.1 ity of [place] 3.104.2.7 [place] .3.760429 Medica l .8 [place] 2022-01-08 2022-01-08 Refill [place], 1.2.840.8 [id number] Univers 00:00:00 00:00:00 Alexsandra 62433.1.1 ity of [place] 3.104.2.7 [place] .3.777250 Medica l .8 [place] 2022-01-07 2022-01-07 Outpatient Abel GUY [facility] [id number] Univers 16:15:00 16:15:00 LAKEISHA [facility] 2021-12-27 2021-12-27 Outpatient Abel WAYNE [facility] [id number] Univers 15:00:00 15:00:00 [facility] 2021-12-25 2021-12-25 Outpatient Abel GUY [facility] [id number] Univers 08:15:00 08:15:00 LAKEISHA [facility] 2021-12-18 2021-12-18 Outpatient Abel VARGAS [facility] [id number] Univers 14:15:00 14:15:00 [facility] 2021-12-12 2021-12-12 Refill [place], 1.2.840.0 [id number] Univers 00:00:00 00:00:00 Alexsandra 98825.1.1 ity of [place] 3.104.2.7 [place] .3.773707 Medica l .8 [place] 2021-12-12 2021-12-12 Refill Ell[place], 1.2.840.1 [id number] Univers 00:00:00 00:00:00 Alexsandra 53879.1.1 ity of [place] 3.104.2.7 [place] .3.169965 Medica l .8 [place] 2021-12-04 2021-12-04 Patient Doctor 1.2.840.2 [id number] Univers 00:00:00 00:00:00 Secure Msg Unassigned, 01741.1.1 ity of [place] 3.104.2.7 [place] .3.772445 Medica l .8 [place] 2021-12-04 2021-12-04 Patient Doctor 1.2.840.3 [id number] Univers 00:00:00 00:00:00 Secure Msg Unassigned, 40327.1.1 ity of [place] 3.104.2.7 [place] .3.266927 Medica l .8 [place] 2021-12-03 2021-12-03 Outpatient Abel ELLSWORTH [facility] [id number] Univers 09:00:00 09:00:00 ALEXSANDRA galvan [facility] 2021-11-22 2021-11-22 Outpatient Abel MCFADDEN [facility] [id number] Univers 13:45:00 14:37:39 DEBORAH galvan [facility] 2021-11-22 2021-11-22 Outpatient Abel MCFADDEN [facility] [id number] Univers 13:45:00 13:45:00 DEBORAH galvan [facility] 2021-11-22 2021-11-22 Outpatient Abel ELLSWORTH [facility] [id number] Univers 13:00:00 13:00:00 ALEXSANDRA galvan [facility] 2021-11-21 2021-11-21 Travel 1.2.840.1 1.2.051.535 [id number] Univers 00:00:00 00:00:00 58262.1.1 350.1.13.10 ity of 3.104.2.7 4.2.7.3.698 [place] .3.144437 084.8 Medica l .8 [place] 2021-11-21 2021-11-21 Travel 1.2.840.1 1.2.352.008 [id number] [id number] Univers 00:00:00 00:00:00 63112.1.1 350.1.13.10 ity of 3.104.2.7 4.2.7.3.698 [place] .3.238409 084.8 Medica l .8 [place] 2021-11-18 2021-11-18 Outpatient R SAM [facility] [id number] Univers 13:45:00 13:45:00 AISHAT ity of [facility] 2021-11-07 2021-11-07 Patient Seng, 1.2.840.8 [id number] Univers 00:00:00 00:00:00 Secure Msg Alexsandra 78597.1.1 i ty of [place] 3.104.2.7 [place] .3.315230 Medica l .8 [place] 2021-10-15 2021-10-15 Telephone [place], 1.2.840.4 [id number] Univers 00:00:00 00:00:00 Alexsandra 29786.1.1 ity of [place] 3.104.2.7 [place] .3.968396 Medica l .8 [place] 2021-10-14 2021-10-14 Telephone [place], 1.2.840.2 [id number] Univers 00:00:00 00:00:00 Alexsandra 46546.1.1 ity of [place] 3.104.2.7 [place] .3.088546 Medica l .8 [place] 2021-10-11 2021-10-11 Office [place], 1.2.840.4 [id number] Univers 10:00:00 10:20:00 Visit Alexsandra 63146.1.1 ity of [place] 3.104.2.7 [place] .3.000458 Medica l .8 [place] 2021-10-11 2021-10-11 Outpatient R SENG, [facility] [id number] Univers 10:00:00 10:00:00 ALEXSANDRA ity [facility] 2021-10-11 2021-10-11 Outpatient R SENG, [facility] [id number] Univers 10:00:00 10:00:00 ALEXSANDRA ity [facility] 2021-10-11 2021-10-11 Outpatient R SENG, [facility] [id number] Univers 10:00:00 10:00:00 ALEXSANDRA ity [facility] 2021-10-09 2021-10-09 Travel 1.2.840.1 1.2.278.090 [id number] [id number] Univers 00:00:00 00:00:00 06665.1.1 350.1.13.10 ity of 3.104.2.7 4.2.7.3.698 [place] .3.285153 084.8 Medica l .8 [place] 2021-10-08 2021-10-08 Refill [place], 1.2.840.1 [id number] Univers 00:00:00 00:00:00 Alexsandra 87513.1.1 ity of [place] 3.104.2.7 [place] .3.910881 Medica l .8 [place] 2021-10-08 2021-10-08 Refill [place], 1.2.840.8 [id number] Univers 00:00:00 00:00:00 Alexsandra 70167.1.1 ity of [place] 3.104.2.7 [place] .3.355025 Medica l .8 [place] 2021-09-30 2021-09-30 Outpatient Abel ROPER, [facility] [id number] Univers 14:00:00 14:00:00 MONIQUE ity [facility] 2021-09-11 2021-09-11 Outpatient Abel MEDINA, [facility] [id number] Univers 14:00:00 14:00:00 NETO ity of [facility] 2021-09-05 2021-09-05 Patient Doctor 1.2.840.8 [id number] Univers 00:00:00 00:00:00 Secure Msg Unassigned, 18513.1.1 ity of [place] 3.104.2.7 [place] .3.250119 Medica l .8 [place] 2021-09-05 2021-09-05 Patient Doctor 1.2.840.3 [id number] Univers 00:00:00 00:00:00 Secure Msg Unassigned, 72312.1.1 ity of [place] 3.104.2.7 [place] .3.609182 Medica l .8 [place] 2021-09-04 2021-09-04 Refill [place], 1.2.840.2 [id number] Univers 00:00:00 00:00:00 Alexsandra 43132.1.1 ity of [place] 3.104.2.7 [place] .3.784678 Medica l .8 [place] 2021-09-04 2021-09-04 Refill [place], 1.2.840.2 [id number] Univers 00:00:00 00:00:00 Alexsandra 31920.1.1 ity of [place] 3.104.2.7 [place] .3.289048 Medica l .8 [place] 2021-08-29 2021-08-29 Outpatient R PATY BAKER [facility] [id number] Univers 09:15:00 09:57:10 ity of [facility] 2021-08-29 2021-08-29 Outpatient R PATY BAKER [facility] [id number] Univers 09:15:00 09:15:00 ity of [facility] 2021-08-29 2021-08-29 Travel 1.2.840.1 1.2.801.053 5350 [id number] Univers 00:00:00 00:00:00 57236.1.1 350.1.13.10 ity of 3.104.2.7 4.2.7.3.698 [place] .3.683853 084.8 Medica l .8 [place] 2021-08-29 2021-08-29 Travel 1.2.840.1 1.2.971.912 4105 4916 [facility] 00:00:00 00:00:00 31243.1.1 350.1.13.10 ity of 3.104.2.7 4.2.7.3.698 [place] .3.284725 084.8 Medica l .8 [place] 2021-08-29 2021-08-29 Travel 1.2.840.1 1.2.409.193 8689 4916 [facility] 00:00:00 00:00:00 13565.1.1 350.1.13.10 ity of 3.104.2.7 4.2.7.3.698 [place] .3.550646 084.8 Medica l .8 [place] 2021-08-08 2021-08-08 Outpatient R PATY BAKER [facility] [id number] Univers 10:00:00 10:00:00 ity of [facility] 2021-08-06 2021-08-06 Travel 1.2.840.1 1.2.309.[address] [place] [address] 00:00:00 00:00:00 41936.1.1 350.1.13.10 ity of 3.104.2.7 4.2.7.3.698 [place] .3.264061 084.8 Medica l .8 [place] 2021-08-06 2021-08-06 Travel 1.2.840.1 1.2.268.[address] [place] [address] 00:00:00 00:00:00 60408.1.1 350.1.13.10 ity of 3.104.2.7 4.2.7.3.698 [place] .3.733661 084.8 Medica l .8 [place] 2021-08-06 2021-08-06 Travel 1.2.840.1 1.2.400.608 7182 3705 [facility] 00:00:00 00:00:00 41866.1.1 350.1.13.10 ity of 3.104.2.7 4.2.7.3.698 [place] .3.354250 084.8 Medica l .8 [place] 2021-08-04 2021-08-04 Refill Doctor 1.2.840.8 [id number] Univers 00:00:00 00:00:00 Unassigned, 14441.1.1 ity of [place] 3.104.2.7 [place] .3.926282 Medica l .8 [place] 2021-08-04 2021-08-04 Refill [place], 1.2.840.3 [id number] 6341 Univers 00:00:00 00:00:00 Alexsandra 61558.1.1 ity of [place] 3.104.2.7 [place] .3.876546 Medica l .8 [place] 2021-08-04 2021-08-04 Refill [place], 1.2.840.4 [id number] 6140 Univers 00:00:00 00:00:00 Alexsandra 50165.1.1 ity of [place] 3.104.2.7 [place] .3.250281 Medica l .8 [place] 2021-08-04 2021-08-04 Refill Doctor 1.2.840.3 [id number] Univers 00:00:00 00:00:00 Unassigned, 98004.1.1 ity of [place] 3.104.2.7 [place] .3.620869 Medica l .8 [place] 2021-08-04 2021-08-04 Refill [place], 1.2.840.4 [id number] [id number] Univers 00:00:00 00:00:00 Alexsandra 98392.1.1 ity of [place] 3.104.2.7 [place] .3.886226 Medica l .8 [place] 2021-08-04 2021-08-04 Refill Doctor 1.2.840.2 [id number] Univers 00:00:00 00:00:00 Unassigned, 67155.1.1 ity of [place] 3.104.2.7 [place] .3.609616 Medica l .8 Branch 2021-08-04 2021-08-04 Refill [place], 1.2.840.8 [id number] 9157 6140 Univers 00:00:00 00:00:00 Alexsandra 02494.1.1 ity of [place] 3.104.2.7 [place] .3.476046 Medica l .8 Branch 2021-08-04 2021-08-04 Refill Doctor 1.2.840.6 [id number] 139 Univers 00:00:00 00:00:00 Unassigned, 04696.1.1 ity of [place] 3.104.2.7 [place] .3.609554 Medica l .8 Branch 2021-08-04 2021-08-04 Refill [place], 1.2.840.2 [id number] 9157 6341 Univers 00:00:00 00:00:00 Alexsandra 53049.1.1 ity of [place] 3.104.2.7 [place] .3.853048 Medica l .8 Branch 2021-08-04 2021-08-04 Refill Doctor 1.2.840.1 [id number] 340 Univers 00:00:00 00:00:00 Unassigned, 39544.1.1 ity of [place] 3.104.2.7 [place] .3.680370 Medica l .8 Branch 2021-08-04 2021-08-04 Refill [place], 1.2.840.4 [id number] 9157 6140 Univers 00:00:00 00:00:00 Alexsandra 11694.1.1 ity of [place] 3.104.2.7 [place] .3.859140 Medica l .8 Branch 2021-08-04 2021-08-04 Refill Doctor 1.2.840.2 [id number] 139 Univers 00:00:00 00:00:00 Unassigned, 02222.1.1 ity of [place] 3.104.2.7 [place] .3.506965 Medica l .8 Branch 2021-07-19 2021-07-19 Refill [place], 1.2.840.3 [id number] 9121 3152 Univers 00:00:00 00:00:00 Alexsandra 74112.1.1 ity of [place] 3.104.2.7 [place] .3.961493 Medica l .8 [place] 2021-07-19 2021-07-19 Refill [place], 1.2.840.5 [id number] 9121 3152 Univers 00:00:00 00:00:00 Alexsandra 60007.1.1 ity of [place] 3.104.2.7 [place] .3.147898 Medica l .8 [place] 2021-07-19 2021-07-19 Refill [place], 1.2.840.6 [id number] 9121 3152 Univers 00:00:00 00:00:00 Alexsandra 03281.1.1 ity of [place] 3.104.2.7 [place] .3.923236 Medica l .8 [place] 2021-07-17 2021-07-17 Office [place], [facility] 1.2.840.114 [id number] 481 Univers 11:00:00 11:20:00 Visit Alexsandra PENA 350.1.13.10 it y of [facility] 4.2.7.2.686 Jon as PEDIATRIC [id number] Wi dical AND 313 Branch [facility] 2021-07-17 2021-07-17 Office [place], 1.2.840.9 [id number] 9112 7481 Univers 11:00:00 11:20:00 Visit Alexsandra 21725.1.1 ity of [place] 3.104.2.7 [place] .3.871543 Medica l .8 [place] 2021-07-17 2021-07-17 Office [place], 1.2.840.8 [id number] 9112 7481 Univers 11:00:00 11:20:00 Visit Alexsandra 33051.1.1 ity of [place] 3.104.2.7 [place] .3.037856 Medica l .8 [place] 2021-07-17 2021-07-17 Office [place], 1.2.840.5 [id number] 9112 7481 Univers 11:00:00 11:20:00 Visit Alexsandra 60033.1.1 ity of [place] 3.104.2.7 [place] .3.800544 Medica l .8 Branch 2021-07-17 2021-07-17 Giselle R SENG, [facility] [id number] Univers 11:00:00 11:00:00 ALEXSANDRA ity of [facility] 2021-07-17 2021-07-17 Telephone [place], 1.2.840.0 [id number] Univers 00:00:00 00:00:00 Alexsandra 39977.1.1 ity of [place] 3.104.2.7 [place] .3.796757 Medica l .8 Branch 2021-07-17 2021-07-17 Travel 1.2.840.1 1.2.877.840 8108 7656 Univers 00:00:00 00:00:00 94886.1.1 350.1.13.10 ity of 3.104.2.7 4[place]3.698 [place] .3.501673 084.8 Medica l .8 Branch 2021-07-17 2021-07-17 Telephone [place], 1.2.840.1 [id number] Univers 00:00:00 00:00:00 Alexsandra 49151.1.1 ity of [place] 3.104.2.7 [place] .3.719005 Medica l .8 Branch 2021-07-17 2021-07-17 Travel 1.2.840.1 1.2.661.796 9432 7656 Univers 00:00:00 00:00:00 07297.1.1 350.1.13.10 ity of 3.104.2.7 4.[place]3.698 [place] .3.167717 084.8 Medica l .8 Branch 2021-07-17 2021-07-17 Telephone [place], 1.2.840.5 [id number] Univers 00:00:00 00:00:00 Alexsandra 13070.1.1 ity of [place] 3.104.2.7 [place] .3.867401 [facility] 2021-07-17 2021-07-17 Travel 1.2.840.1 1.2.016.463 4015 7656 Univers 00:00:00 00:00:00 15469.1.1 350.1.13.10 ity of 3.104.2.7 [place]7.3.698 [place] .3.[place] 084.8 [facility] .8 [facility] 2021-07-15 2021-07-15 Travel 1.2.840.1 1.2.192.013 6825 4694 Univers 00:00:00 00:00:00 42899.1.1 350.1.13.10 ity of 3.104.2.7 [place]7.3.698 [place] 084.8 [place] .[place] 2021-07-15 2021-07-15 Travel 1.2.840.1 1.2.381.482 4624 4694 Univers 00:00:00 00:00:00 40913.1.1 350.1.13.10 ity of 3.104.2.7 4.[place].7.3.698 [place]3.[place]404 084.8 [place] .[place] 2021-07-15 2021-07-15 Travel 1.2.840.1 1.2.683.922 3141 4694 Univers 00:00:00 00:00:00 36845.1.1 350.1.13.10 ity of 3.104.2.7 [place]7.3.698 [place]3.2399[place] 084.8 [place] .[place] 2021-07-09 2021-07-09 Outpatient R SENG [facility] [id number] Univers 14:20:00 14:20:00 ALEXSANDRA galvan of [facility] 2021-07-04 2021-07-04 Telephone Seng [facility] 1.2.840.114 907 [id number] Univers 00:00:00 00:00:00 Alexsandra PENA 350.1.13.10 it y of [facility] 4.2.7.2.686 Jon as PEDIATRIC [phone] Wi dical AND [address] [facility] 2021-07-04 2021-07-04 Telephone [place], 1.2.840.0 [id number] 90 [id number] Univers 00:00:00 00:00:00 Alexsandra 60369.1.1 ity of [place] 3.104.2.7 [place] .3.639186 [facility] .8 [place] 2021-07-04 2021-07-04 Telephone [place], 1.2.840.3 [id number] 90 [id number] Univers 00:00:00 00:00:00 Alexsandra 09860.1.1 ity of [place] 3.104.2.7 [place] .3.746609 [facility] .8 [place] 2021-07-03 2021-07-03 Patient Doctor 1.2.840.2 [id number] 649 Univers 00:00:00 00:00:00 Secure Msg Unassigned, 33616.1.1 ity of [place] 3.104.2.7 [place] .3.544387 Med[facility] l .8 [place] 2021-07-03 2021-07-03 Patient Doctor 1.2.840.6 [id number] 649 Univers 00:00:00 00:00:00 Secure Msg Unassigned, 24580.1.1 ity of [place] 3.104.2.7 [place] .3.538294 [facility] .8 [place] 2021-07-03 2021-07-03 Patient Doctor 1.2.840.9 [id number] 649 Univers 00:00:00 00:00:00 Secure Msg Unassigned, 16027.1.1 ity of [place] 3.104.2.7 [place] .3.408570 [facility] [place] .8 [place] 2021-06-29 2021-06-29 Telephone [place], 1.2.840.7 [id number] 90 [id number] Univers 00:00:00 00:00:00 Alexsandra 74523.1.1 ity of [place] 3.104.2.7 [place] .3.964987 [facility] [place] .[facility] [place] 2021-06-29 2021-06-29 Telephone [place], 1.2.840.0 [id number] 90 [id number] Univers 00:00:00 00:00:00 Alexsandra 75553.1.1 ity of [place] 3.104.2.7 [place] .3.013483 [facility] [place] .8 [place] 2021-06-29 2021-06-29 Telephone [place], 1.2.840.9 [id number] 90 [id number] Univers 00:00:00 00:00:00 Alexsandra 59750.1.1 ity of [place] 3.104.2.7 [place] .3.398591 [facility] [place] .8 [place] 2021-06-14 2021-06-14 Patient Doctor 1.2.840.5 [id number] Univers 00:00:00 00:00:00 Secure Msg Unassigned, 38496.1.1 ity of [place] 3.104.2.7 [place] .3.159481 [facility] [place] .[facility] [place] 2021-06-14 2021-06-14 Patient Doctor 1.2.840.2 [id number] 71705 314 Univers 00:00:00 00:00:00 Secure Msg Unassigned, 32233.1.1 ity of [place] 3.104.2.7 [place] .3.877012 [facility] [place] .8 [place] 2021-06-14 2021-06-14 Patient Doctor 1.2.840.0 [id number] 56361 314 Univers 00:00:00 00:00:00 Secure Msg Unassigned, 38664.1.1 ity of [place] 3.104.2.7 [place] .3.551639 [facility] [place] .[facility] [place] 2021-06-01 2021-06-01 Refill [place], 1.2.840.5 [id number] 50918 853 Univers 00:00:00 00:00:00 Miya 56964.1.1 ity of 3.104.2.7 [place] .3.377269 Medica l .8 [place] 2021-06-01 2021-06-01 Refill [place], 1.2.840.9 [id number] 70387 853 Univers 00:00:00 00:00:00 Miya 96209.1.1 ity of 3.104.2.7 [place] .3.145021 Med[facility] l .8 [place] 2021-05-28 2021-05-28 Patient Doctor 1.2.840.2 [id number] 32126 558 Univers 00:00:00 00:00:00 Secure Msg Unassigned, 67730.1.1 ity of [place] 3.104.2.7 [place] .3.605154 [facility] [place] .8 [place] 2021-05-28 2021-05-28 Patient Doctor 1.2.840.4 [id number] 558 Univers 00:00:00 00:00:00 Secure Msg Unassigned, 87455.1.1 ity of [place] 3.104.2.7 [place] .3.704364 [facility] [place] .8 [place] 2021-05-20 2021-05-20 Outpatient R KORY [facility] [id number] Univers 14:45:00 14:45:00 MARINE ity of [facility] 2021-05-18 2021-05-18 Outpatient R SALVADOR [facility] [id number] [id number] Univers 20:45:00 20:59:51 EKTA Duke it y of [facility] 2021-05-18 2021-05-18 Urgent Unknown, Attending 1.2.840.1 [id number] Univers 20:45:00 20:59:51 Ekta Russ 13847.1.1 ity of 3.104.2.7 [place] .3.441032 Medica l [address] [place] [address] 2021-05-18 2021-05-18 Urgent Unknown, Attending 1.2.840.1 [id number] Univers 20:45:00 20:59:51 Ekta Russ 94256.1.1 ity of 3.104.2.7 [place] .3.526653 Medica l [address] [place] [address] 2021-05-09 2021-05-09 Outpatient R PATY BAKER [facility] [id number] Univers 10:00:00 10:57:06 ity of [facility] 2021-05-09 2021-05-09 Travel 1.2.840.1 1.2.588.833 1575 4239 Univers 00:00:00 00:00:00 80514.1.1 350.1.13.10 ity of 3.104.2.7 4.[place]7.3.698 [place].009943 084.8 [facility] l .8 [facility] 2021-05-09 2021-05-09 Travel 1.2.840.1 1.2.935.582 3032 4239 Univers 00:00:00 00:00:00 87986.1.1 350.1.13.10 ity of 3.104.2.7 4.2.7.3.698 [place] .3.310503 084.8 [facility] .8 [facility] 2021-05-06 2021-05-06 Refill [place], 1.2.840.7 [id number] 8927 0057 Univers 00:00:00 00:00:00 Alexsandra 79223.1.1 ity of [place] 3.104.2.7 [place] .3.557456 Med[facility] l .8 [facility] 2021-04-12 2021-04-12 Refill [place], 1.2.840.8 [id number] 8874 2269 Univers 00:00:00 00:00:00 Alexsandra 70678.1.1 ity of [place] 3.104.2.7 [place] .3.251316 Med[facility] l .8 [facility] 2021-04-11 2021-04-11 Outpatient PATY REECE [facility] [id number] Univers 08:30:00 08:30:00 ity of [facility] 2021-04-10 2021-04-10 Travel 1.2.840.1 1.2.171.717 4387 2313 Univers 00:00:00 00:00:00 91808.1.1 350.1.13.10 ity of 3.104.2.7 4.2.7.3.698 [place].500[place] 084.8 [facility] [facility] .8 [facility] 2021-04-01 2021-04-01 Travel 1.2.840.1 1.2.355.728 8754 7961 Univers 00:00:00 00:00:00 65255.1.1 350.1.13.10 ity of 3.104.2.7 4.[place].7.3.698 [place]3.987708 084.8 [place] .[place] 2021-03-22 2021-03-22 Outpatient R ARELY HOPKINS [facility] [id number] [id number] Univers 09:15:00 09:15:00 ity of [facility] 2021-03-12 2021-03-12 Patient Doctor 1.2.840.7 [id number] 696 Univers 00:00:00 00:00:00 Secure Msg Unassigned, 65312.1.1 ity of [place] 3.104.2.7 [place] .3.454641 [facility] [place] .8 [place] 2021-03-08 2021-03-08 Patient Doctor 1.2.840.1 [id number] 56409 142 Univers 00:00:00 00:00:00 Secure Msg Unassigned, 42315.1.1 ity of [place] 3.104.2.7 [place] .3.341959 [facility] l .8 [place] 2021-03-07 2021-03-07 Outpatient R PATY BAKER [facility] [id number] Univers 08:30:00 08:30:00 ity of [facility] 2021-03-05 2021-03-05 Patient Doctor 1.2.840.8 [id number] 60313 [id number] Univers 00:00:00 00:00:00 Secure Msg Unassigned, 72974.1.1 ity of [place] 3.104.2.7 [place] .3.943908 [facility] l .8 [place] 2021-03-01 2021-03-01 Office Seng [facility] 1.2.840.114 [id number] 080 Univers 14:44:46 15:04:46 Visit Alexsandra PENA 350.1.13.10 it y of [facility] 4.2.7.2.686 Jon as PEDIATRIC [phone] [facility] AND [address] [place] [address] CLINIC 2021-03-01 2021-03-01 Office Seng 1.2.840.4 [id number] 8733 7080 Univers 14:44:46 15:04:46 Visit Alexsandra 81440.1.1 ity of [place] 3.104.2.7 [place] .3.488593 Med[place] .8 [place] 2021-03-01 2021-03-01 Outpatient Abel ELLSWORTH, [facility] [id number] Univers 14:40:00 14:40:00 ALEXSANDRA ity of [facility] 2021-02-28 2021-02-28 Refill Doctor 1.2.840.3 [id number] 65445 569 Univers 00:00:00 00:00:00 Unassigned, 13068.1.1 ity of [place] 3.104.2.7 [place] .3.863995 Med[facility] l .8 [place] 2021-02-28 2021-02-28 Refill Doctor 1.2.840.2 [id number] 72512 567 Univers 00:00:00 00:00:00 Unassigned, 92259.1.1 ity of [place] 3.104.2.7 [place] .3.967689 [facility] l .8 [place] 2021-02-28 2021-02-28 Travel 1.2.840.1 1.2.588.475 2914 4039 Univers 00:00:00 00:00:00 38973.1.1 350.1.13.10 ity of 3.104.2.7 4.2.7.3.698 [place] .3.241681 084.8 [place] l .8 [place] 2021-02-28 2021-02-28 Refill Doctor 1.2.840.0 [id number] 22997 567 Univers 00:00:00 00:00:00 Unassigned, 86946.1.1 ity of [place] 3.104.2.7 [place] .3.338473 Med[facility] l .8 [place] 2021-02-28 2021-02-28 Refill Doctor 1.2.840.0 [id number] 68101 569 Univers 00:00:00 00:00:00 Unassigned, 41263.1.1 ity of [place] 3.104.2.7 [place] .3.054343 Medica l .8 Branch 2021-02-28 2021-02-28 Travel 1.2.840.1 1.2.866.502 9631 4039 Univers 00:00:00 00:00:00 99005.1.1 350.1.13.10 ity of 3.104.2.7 4.2.7.3.698 [place] .3.965426 084.8 Medica l .8 Branch 2021-02-16 2021-02-16 Refill [place], 1.2.840.8 [id number] 8731 5078 Univers 00:00:00 00:00:00 Alexsandra 54679.1.1 ity of [place] 3.104.2.7 [place] .3.379447 Medica l .8 [facility] 2021-02-16 2021-02-16 Refill [place], 1.2.840.4 [id number] 8731 5078 Univers 00:00:00 00:00:00 Alexsandra 95079.1.1 ity of [place] 3.104.2.7 [place] .3.372103 Medica l .8 Branch 2021-02-01 2021-02-01 Outpatient ARELY LARES [facility] [id number] Univers 10:00:00 10:00:00 ity of [facility] 2021-02-01 2021-02-01 Travel 1.2.840.1 1.2.384.074 9572 2575 Univers 00:00:00 00:00:00 35726.1.1 350.1.13.10 ity of 3.104.2.7 4.2.7.3.698 [place] .3.857794 084.8 Medica l .8 [facility] 2021-02-01 2021-02-01 Travel 1.2.840.1 1.2.454.885 8613 2575 Univers 00:00:00 00:00:00 57667.1.1 350.1.13.10 ity of 3.104.2.7 4.2.7.3.698 [place] .3.740088 084.8 Medica l .8 Branch 2021-01-30 2021-01-30 Travel 1.2.840.1 1.2.394.634 7049 0552 Univers 00:00:00 00:00:00 92076.1.1 350.1.13.10 ity of 3.104.2.7 4.2.7.3.698 [place] .3.100817 084.8 [place] l .8 [place] 2021-01-30 2021-01-30 Travel 1.2.840.1 1.2.068.053 3693 0552 [facility] 00:00:00 00:00:00 35379.1.1 350.1.13.10 ity of 3.104.2.7 4.2.7.3.698 [place] .3.775021 084.8 [place] l .8 [place] 2021-01-21 2021-01-21 Outpatient GCCOVIDV GCCOVIDV 58871 56321 [facility]OVID 00:00:00 00:00:00 2020-12-28 2020-12-28 Outpatient ARELY LARES [facility] [id number] Univers 10:00:00 10:00:00 ity of [facility] 2020-12-28 2020-12-28 Travel 1.2.840.1 1.2.518.853 7941 5281 [facility] 00:00:00 00:00:00 31837.1.1 350.1.13.10 ity of 3.104.2.7 4.2.7.3.698 [place] .3.321450 084.8 [place] l .8 [place] 2020-12-14 2020-12-14 Outpatient ARELY LARES [facility] [id number] Univers 10:00:00 10:00:00 ity of [facility] 2020-12-14 2020-12-14 Travel 1.2.840.1 1.2.910.627 6205 9498 Univers 00:00:00 00:00:00 18637.1.1 350.1.13.10 ity of 3.104.2.7 4.2.7.3.698 [place] .3.791443 084.8 [place] l .8 [place] 2020-12-11 2020-12-11 Refill [place], 1.2.840.1 [id number] 8555 5495 Univers 00:00:00 00:00:00 Alexsandra 85888.1.1 ity of [place] 3.104.2.7 [place] .3.110087 [facility] l .8 [place] 2020-11-30 2020-11-30 [facility] [id number] Univers 13:30:00 13:30:00 DEBORAH ity of [facility] 2020-11-24 2020-11-24 Nurse Paulina Reese 1.2.840.5 [id number] Univers 00:00:00 00:00:00 Triage 16093.1.1 ity of 3.104.2.7 [place] .3.940238 [facility] l .8 [place] 2020-11-13 2020-11-13 Office [place], 1.2.840.6 [id number] 64947 323 Univers 14:35:52 15:05:52 Visit Rajinder Uriarte 06292.1.1 i ty of 3.104.2.7 [place] .3.900387 Medica l .8 [place] 2020-11-13 2020-11-13 [facility] [id number] Univers 14:30:00 14:30:00 RAJINDER ity o f [facility] 2020-11-13 2020-11-13 Travel 1.2.840.1 1.2.879.102 9075 9568 Univers 00:00:00 00:00:00 63109.1.1 350.1.13.10 ity of 3.104.2.7 4.2.7.3.698 [place] .3.422538 084.8 [place] l .8 [place] 2020-11-10 2020-11-10 Refill [place], 1.2.840.6 [id number] 8482 9060 Univers 00:00:00 00:00:00 Alexsandra 24541.1.1 ity of [place] 3.104.2.7 [place] .3.754317 Medica l .8 [facility] 2020-11-10 2020-11-10 Refill Serge, 1.2.840.0 [id number] 848 34363 Univers 00:00:00 00:00:00 Keshawn 40306.1.1 ity of [place] 3.104.2.7 [place] .3.249716 [facility] .[place] 2020-10-31 2020-10-31 [id number] Univers 08:45:00 08:45:00 [facility] 2020-10-10 [facility] [id number] Univers 09:15:00 09:15:00 [facility] 2020-10-09 2020-10-09 Refill Flash, 1.2.840.3 [id number] 93057 681 Univers 00:00:00 00:00:00 Pepito Landry 23786.1.1 i ty of 3.104.2.7 [place] .3.177949 [facility] [place] .8 [place] 2020-10-01 2020-10-01 Refill [place], 1.2.840.0 [id number] 8382 5936 Univers 00:00:00 00:00:00 Alexsandra 01231.1.1 ity of [place] 3.104.2.7 [place] .3.025715 Medica l .8 [place] 2020-10-01 2020-10-01 Refill Serge, 1.2.840.6 [id number] 03479 Univers 00:00:00 00:00:00 [place] 48010.1.1 ity of [place] 3.104.2.7 [place] .3.474756 Medica l .8 [place] 2020-10-01 2020-10-01 Patient [place], 1.2.840.5 [id number] 8383 [id number] Univers 00:00:00 00:00:00 Secure Msg Alexsandra 72982.1.1 i ty of [place] 3.104.2.7 [place] .3.369173 Medica l .8 [place] 2020-09-27 2020-09-27 Outpatient R NILA, [facility] [id number] Univers 15:45:00 15:45:00 GABE itarsenio [facility] 2020-09-27 2020-09-27 Travel 1.2.840.1 1.2.388.247 2868 6648 Univers 00:00:00 00:00:00 55592.1.1 350.1.13.10 ity of 3.104.2.7 4.2.7.3.698 [place] .3.917963 084.8 [place] l .8 [place] 2020-09-21 2020-09-21 Outpatient R MICHELLEGAUTAM, [facility] [id number] Univers 15:00:00 15:00:00 CARLEY arsenio [facility] 2020-09-11 2020-09-11 Office Seng, 1.2.840.4 [id number] 8327 3420 Univers 13:04:54 13:24:54 Visit Alexsandra 71165.1.1 ity of [place] 3.104.2.7 [place] .3.142211 Medica l .8 [place] 2020-09-11 2020-09-11 Outpatient R SENG, [facility] [id number] Univers 13:00:00 13:00:00 ALEXSANDRA galvan [place] [facility] 2020-09-10 2020-09-10 Travel 1.2.840.1 1.2.897.453 2767 7674 Univers 00:00:00 00:00:00 51914.1.1 350.1.13.10 ity of 3.104.2.7 4.2.7.3.698 [place] .3.182240 084.8 [place] .8 [place] 2020-09-10 2020-09-10 Patient Doctor 1.2.840.7 [id number] 49803 740 Univers 00:00:00 00:00:00 Secure Msg Unassigned, 67599.1.1 ity of [place] 3.104.2.7 [place] .3.387751 Medica l .8 [place] 2020-09-09 2020-09-09 Refill Flash, 1.2.840.3 [id number] 93530 614 Univers 00:00:00 00:00:00 Pepito Landry 17066.1.1 i ty of 3.104.2.7 [place] .3.560683 [facility] l .8 [place] 2020-09-09 2020-09-09 Jasper Valentine, 1.2.840.2 [id number] 832 [id number] Univers 00:00:00 00:00:00 [place] 42628.1.1 ity of [place] 3.104.2.7 [place] .3.373285 [facility] l .8 [place] 2020-08-23 2020-08-23 Outpatient R ARELY HOPKINS [facility] [id number] Univers 13:30:00 13:30:00 ity of [facility] 2020-08-22 2020-08-22 Travel 1.2.840.1 1.2.035.714 7809 0434 Univers 00:00:00 00:00:00 20265.1.1 350.1.13.10 ity of 3.104.2.7 4.2.7.3.698 [place] .3.1969[place] 084.8 [place] l .8 [place] 2020-08-09 2020-08-09 Jasper Valentine, 1.2.840.0 [id number] 822 24659 Univers 00:00:00 00:00:00 Keshawn 14978.1.1 ity of [place] 3.104.2.7 [place] .3.622521 [facility] l .[facility] [place] 2020-07-20 2020-07-20 Outpatient Abel BELL [facility] [id number] Univers 09:20:00 09:20:00 RODRÍGUEZ ity of [facility] 2020-07-20 2020-07-20 Imm/Inj Rodríguez Bell 1.2.840.1 [id number] Univers 09:04:42 09:05:00 Visit Nurse, Hernandez Podwight Immunization 13525.1.1 ity of 3.104.2.7 [place] .3.726004 [facility]ica l .8 [place] 2020-07-20 2020-07-20 Outpatient GCCOVIDV [facility]OVID[facility] 54830 [id number] [facility] 00:00:00 00:00:00 V 2020-07-12 2020-07-12 Outpatient R ARELY HOPKINS [facility] [id number] Univers 13:30:00 13:30:00 ity of [facility] 2020-07-12 2020-07-12 Travel 1.2.840.1 1.2.914.938 1081 5735 Univers 00:00:00 00:00:00 34649.1.1 350.1.13.10 ity of 3.104.2.7 4.2.7.3.698 [place] .3.473045 084.8 [place] l .8 [place] 2020-07-12 2020-07-12 Orders Doctor 1.2.840.9 [id number] Univers 00:00:00 00:00:00 Only Unassigned, 99455.1.1 ity of [place] 3.104.2.7 [place] .3.316413 Medica l .8 [place] 2020-07-06 2020-07-06 Refrafia Valentine, 1.2.840.4 [id number] 813 [id number] Univers 00:00:00 00:00:00 Keshawn 78359.1.1 ity of [place] 3.104.2.7 [place] .3.259277 [facility] .8 [place] 2020-07-06 2020-07-06 Refrafia Greer, 1.2.840.4 [id number] [id number] Univers 00:00:00 00:00:00 Wu 26043.1.1 ity of 3.104.2.7 [place] .3.732196 [facility] l .[facility] [place] 2020-06-29 2020-06-29 Outpatient Abel BELL [facility] [id number] Univers 09:20:00 09:20:00 RODRÍGUEZ ity of [facility] 2020-06-29 2020-06-29 Imm/Inj Rodríguez Bell 1.2.840.1 [id number] Univers 09:00:27 09:07:28 Visit Nurse, Adc Pob Immunization 37765.1.1 ity of 3.104.2.7 [place] .3.631512 [facility] .[facility] [place] 2020-06-29 2020-06-29 Outpatient GCCOVIDV GCCOVIDV 29711 [id number] [facility]OVID 00:00:00 00:00:00 V 2020-06-29 2020-06-29 Refrafia Valentine, 1.2.840.3 [id number] 811 [id number] Univers 00:00:00 00:00:00 Keshawn 58294.1.1 ity of [place] 3.104.2.7 [place] .3.193753 Medica l .8 [facility] 2020-06-28 2020-06-28 Outpatient R TOBIN, [facility] [id number] Univers 08:10:00 08:10:00 MARTELL ity of [facility] 2020-06-26 2020-06-26 Patient Tobin, 1.2.840.0 [id number] [id number] Univers 00:00:00 00:00:00 Outreach Martell 61986.1.1 ity of [place] 3.104.2.7 [place] .3.453701 Medica l .8 [facility] 2020-06-25 2020-06-25 Refrafia Valentine, 1.2.840.3 [id number] 810 [id number] Univers 00:00:00 00:00:00 [place] 71020.1.1 ity of [place] 3.104.2.7 [place] .3.401421 Medica l .8 [facility] 2020-06-21 2020-06-21 Patient Doctor 1.2.840.6 [id number] Univers 00:00:00 00:00:00 Secure Msg Unassigned, 53224.1.1 ity of [place] 3.104.2.7 [place] .3.623517 Medica l .8 [facility] 2020-06-20 2020-06-20 Patient Serge, 1.2.840.7 [id number] 809 [id number] Univers 00:00:00 00:00:00 Secure Msg [place] 32886.1.1 i ty of [place] 3.104.2.7 [place] .3.063137 Medica l .8 [facility] 2020-06-20 2020-06-20 Patient Serge 1.2.840.6 [id number] [id number] Univers 00:00:00 00:00:00 Secure Msg [place] 95611.1.1 i ty of [place] 3.104.2.7 [place] .3.761143 Medica l .8 [facility] 2020-06-18 2020-06-18 Office Serge, 1.2.840.5 [id number] 804 [id number] Univers 09:39:03 09:59:03 Visit [place] 74518.1.1 ity of [place] 3.104.2.7 [place] .3.557280 Medica l .8 [facility] 2020-06-18 2020-06-18 Outpatient Abel VALENTINE [facility] [id number] Univers 09:40:00 09:40:00 KESHAWN ity of [facility] 2020-06-18 2020-06-18 Orders Doctor 1.2.840.9 [id number] Univers 00:00:00 00:00:00 Only Unassigned, 76475.1.1 ity of [place] 3.104.2.7 [place] .3.934702 Medica l .8 [facility] 2020-06-12 2020-06-12 Patient Serge, 1.2.840.1 [id number] 806 35291 Univers 00:00:00 00:00:00 Secure Msg Keshawn 26181.1.1 i ty of [place] 3.104.2.7 [place] .3.898525 Medica l .8 [facility] 2020-06-01 2020-06-01 Refill Serge, 1.2.840.7 [id number] 804 40557 Univers 00:00:00 00:00:00 Keshawn 62497.1.1 ity of [place] 3.104.2.7 [place] .3.125540 Medica l .8 [facility] 2020-05-27 2020-05-27 Refill Serge 1.2.840.6 [id number] Univers 00:00:00 00:00:00 [place] 86189.1.1 ity of [place] 3.104.2.7 [place] .3.566367 Medica l .8 Branch 2020-05-10 2020-05-10 Outpatient Abel [facility] [id number] Univers 13:20:00 13:20:00 KESHAWN ity of [facility] 2020-05-07 2020-05-07 Patient Doctor 1.2.840.2 [id number] Univers 00:00:00 00:00:00 Secure Unassigned, 59923.1.1 ity of [place] 3.104.2.7 [place] .3.322738 Medica l .8 Branch 2020-04-28 2020-04-28 Jasper Valentine, 1.2.840.6 [id number] Univers 00:00:00 00:00:00 [place] 94937.1.1 ity of [place] 3.104.2.7 [place] .3.630824 Medica l .8 Branch 2020-04-23 2020-04-23 Cherry Valentine 1.2.840.5 [id number] Univers 00:00:00 00:00:00 [place] 97002.1.1 ity of [place] 3.104.2.7 [place] .3.224306 Medica l .8 Branch 2020-04-23 2020-04-23 Jasper Valentine 1.2.840.9 [id number] Univers 00:00:00 00:00:00 Keshawn 48826.1.1 ity of [place] 3.104.2.7 [place] .3.320493 Medica l .8 Branch 2020-04-21 2020-04-21 Jasper Valentine 1.2.840.9 [id number] [id number] Univers 00:00:00 00:00:00 [place] 66089.1.1 ity of [place] 3.104.2.7 [place] .3.502911 Medica l .8 Branch 2020-04-21 2020-04-21 Jasper Valentine 1.2.840.8 [id number] [id number] Univers 00:00:00 00:00:00 Keshawn 80731.1.1 ity of [place] 3.104.2.7 [place] .3.367286 Medica l .8 Branch 2020-04-20 2020-04-20 Jasper Valentine 1.2.840.2 [id number] [id number] Univers 00:00:00 00:00:00 Keshawn 38174.1.1 ity of [facility] 3.104.2.7 [place] .3.944060 Medica l .8 [place] 2020-03-30 2020-03-30 Jasper Valentine SCGREGORY 1.2.861.232 [id number] [id number] Univers 00:00:00 00:00:00 [place] LEAGUE 350.1.13.10 it y of [facility] [place] [phone] Wi dical AND [address] [place] [address] 2020-03-20 2020-03-20 Jasper Valentine SCGREGORY 1.2.083.794 [id number] Univers 00:00:00 00:00:00 [place] LEAGUE 350.1.13.10 it y of [facility] 4[place]2.[place] [phone] Wi dical AND [address] [place] [address] 2020-02-20 2020-02-20 Jasper Valentine SCGREGORY 1.2.011.559 [id number] 00:00:00 00:00:00 [place] LEAGUE 350.1.13.10 [facility] 4.2.7.2.686 PEDIATRIC [id number] AND [address] [place] [address] 2020-02-20 2020-02-20 Jasper Greer SCGREGORY 1.2.840.114 [id number] 00:00:00 00:00:00 [place] SPECIALTY 350.1.13.10 CARE 4.2.7.2.686 CENTER AT [phone] [address] 2020-02-20 2020-02-20 Jasper Valentine SCGREGORY 1.2.746.103 [id number] Univers 00:00:00 00:00:00 [place] LEAGUE 350.1.13.10 it y of [facility] 4[place]2.[place] [id number] Me dical AND [address] [place] [address] 2020-02-20 2020-02-20 Jasper Greer SCGREGORY 1.2.840.114 [id number] Univers 00:00:00 00:00:00 [place] SPECIALTY 350.1.13.10 [place] [phone] Me dical VICTORY 072 [facility] 2020-02-19 2020-02-19 [facility] 1.2.136.595 [id number] 00:00:00 00:00:00 [place] PENA 350.1.13.10 [facility] 4.2.7.2.686 PEDIATRIC [id number] AND [address] [place] [address] [facility] 2020-02-19 2020-02-19 [facility] 1.2.378.743 [id number] Univers 00:00:00 00:00:00 [place] PENA 350.1.13.10 it y of [facility] 4[place]2.[place] [phone] Me dical AND [address] [place] [address] [facility] 2020-01-19 2020-01-19 [facility] 1.2.831.514 [id number] 00:00:00 00:00:00 [place] PENA 350.1.13.10 [facility] 4.2.7.2.686 PEDIATRIC [phone] AND [address] [place] [address] 2020-01-19 2020-01-19 [facility] 1.2.531.039 [id number] [id number] Univers 00:00:00 00:00:00 [place]ha[place] PENA 350.1.13.10 it y of [facility] 4[place]7.2.[place] [phone] Wi dical AND [address] [place] [address] [facility] 2019-12-30 2019-12-30 Telephone Nurse, Jon 1.2.840.6 [id number] [facility] 00:00:00 00:00:00 Urgent 60109.1.1 ity of 3.104.2.7 [place] .3.857936 Medica l .8 [place] 2019-12-27 2019-12-27 Patient Serge 1.2.840.1 [id number] Univers 00:00:00 00:00:00 Secure Msg Keshawn 35492.1.1 i ty of [facility] 3.104.2.7 [place] .3.742148 Medica l .8 [place] 2019-12-27 2019-12-27 Patient Doctor 1.2.840.5 [id number] Univers 00:00:00 00:00:00 Secure Unassigned, 83389.1.1 ity of [place] 3.104.2.7 [place] .3.258999 Medica l .8 [place] 2019-12-25 2019-12-25 Laboratory Unknown, Attending 1.2.840.1 10 [id number] Univers 16:44:25 16:52:18 Only ChenNicolas 88361.1.1 ity of Nurse, Jon Urgent 3.104.2.7 [place] .3.064160 Medica [place] .8 [place] 2019-12-25 2019-12-25 Outpatient R UNKNOWN, [facility] [id number] Univers 16:45:00 16:45:00 ATTENDING ity of [facility] 2019-12-25 2019-12-25 Travel 1.2.840.1 1.2.643.502 [id number] Univers 00:00:00 00:00:00 37822.1.1 350.1.13.10 ity of 3.104.2.7 [place].3.698 [place] .[place] 084.8 Med[place] l .8 [place] 2019-12-19 2019-12-19 Jasper Valentine, 1.2.840.8 [id number] 767 [id number] Univers 00:00:00 00:00:00 [place] 85358.1.1 ity of [place] 3.104.2.7 [place] .3.389283 Medica l .8 [place] 2019-12-09 2019-12-09 Jasper Valentine 1.2.840.1 [id number] 765 [id number] Univers 00:00:00 00:00:00 Keshawn 59103.1.1 ity of [place] 3.104.2.7 [place] .3.635060 Medica l .8 [place] 2019-11-24 2019-11-24 Orders Doctor 1.2.840.7 [id number] Univers 00:00:00 00:00:00 Only Unassigned, 71828.1.1 ity of [place] 3.104.2.7 [place] .3.485226 Medica l .8 [place] 2019-11-22 2019-11-22 Jasper Valentine 1.2.840.7 [id number] 761 [id number] Univers 00:00:00 00:00:00 Keshawn 85750.1.1 ity of [place] 3.104.2.7 [place] .3.647833 Medica l .8 [place] 2019-11-19 2019-11-19 Jasper Valentine 1.2.840.0 [id number] 761 [id number] Univers 00:00:00 00:00:00 Keshawn 08738.1.1 ity of [place] 3.104.2.7 [place] .3.008188 Medica l .8 [place] 2019-11-16 2019-11-16 Orders Doctor 1.2.840.7 [id number] Univers 00:00:00 00:00:00 Only Unassigned, 28943.1.1 ity of [place] 3.104.2.7 [place] .3.556781 Medica l .8 [place] 2019-11-16 2019-11-16 Telephone Krill, 1.2.840.4 [id number] 760 [id number] Univers 00:00:00 00:00:00 Wu 12193.1.1 ity of 3.104.2.7 [place] .3.669901 Medica l .8 [place] 2019-11-08 2019-11-08 Orders Doctor 1.2.840.7 [id number] Univers 00:00:00 00:00:00 Only Unassigned, 39419.1.1 ity of [place] 3.104.2.7 [place] .3.742423 Medica l .8 Branch 2019-10-19 2019-10-19 Jasper Valentine 1.2.840.4 [id number] 756 [id number] Univers 00:00:00 00:00:00 Keshawn 28306.1.1 ity of [place] 3.104.2.7 [place] .3.172675 Medica l .8 [place] 2019-10-19 2019-10-19 Jasper Valentine 1.2.840.6 [id number] 756 [id number] Univers 00:00:00 00:00:00 [place] 82435.1.1 ity of [place] 3.104.2.7 [place] .3.224224 Medica l .8 Branch 2019-10-18 2019-10-18 Orders Doctor 1.2.840.3 [id number] Univers 00:00:00 00:00:00 Only Unassigned, 04752.1.1 ity of [place] 3.104.2.7 [place] .3.241870 Medica l .8 Branch 2019-10-18 2019-10-18 Telephone Zoey, 1.2.840.3 [id number] 756 [id number] Univers 00:00:00 00:00:00 Wu 27844.1.1 ity of 3.104.2.7 [place] .3.283739 Medica l .8 Branch 2019-10-11 2019-10-11 Refrafia Valentine 1.2.840.3 [id number] 755 [id number] Univers 00:00:00 00:00:00 [place] 49117.1.1 ity of [place] 3.104.2.7 [place] .3.261547 Medica l .8 Branch 2019-10-11 2019-10-11 Refrafia Valentine 1.2.840.6 [id number] 755 [id number] Univers 00:00:00 00:00:00 [place] 11801.1.1 ity of [place] 3.104.2.7 [place] .3.417717 Medica l .8 Branch 2019-10-06 2019-10-06 Telemedici Pepito Estrella 1.2.840.1 10 [id number] Univers 06:59:58 15:12:03 ne Visit Wu Greer 13955.1.1 ity of 3.104.2.7 [place] .3.574557 Medica l .8 Branch 2019-10-06 2019-10-06 Outpatient R FLASH [facility] [id number] Univers 13:00:00 13:00:00 PEPITO galvan o f [facility] 2019-09-20 2019-09-20 Orders Doctor 1.2.840.8 [id number] Univers 00:00:00 00:00:00 Only Unassigned, 49194.1.1 ity of [place] 3.104.2.7 [place] .3.925725 Medica l .8 [place] 2019-09-19 2019-09-19 Refrafia Valentine, 1.2.840.8 [id number] 751 [id number] Univers 00:00:00 00:00:00 Keshawn 29283.1.1 ity of [place] 3.104.2.7 [place] .3.073447 Medica l .8 [place] 2019-09-19 2019-09-19 Refrafia Valentine, 1.2.840.9 [id number] 751 [id number] Univers 00:00:00 00:00:00 Keshawn 51803.1.1 ity of [place] 3.104.2.7 [place] .3.474917 Medica l .8 [place] 2019-09-15 2019-09-15 Outpatient R ARELY HOPKINS [facility] [id number] Univers 14:15:00 14:15:00 ity of [facility] 2019-09-10 2019-09-10 Telephone Isela Greer.2.840.8 [id number] Univers 00:00:00 00:00:00 Wu 94304.1.1 ity of 3.104.2.7 [place] .3.173186 Medica l .8 [place] 2019-09-08 2019-09-08 Outpatient R [facility] [id number] Univers 13:30:00 13:30:00 ity of [facility] 2019-09-08 2019-09-08 Telemedici Sushil Cook 1.2.840.1 [id number] Univers 07:06:54 07:36:54 ne Melina Gomez 72443.1.1 ity of Wu Greer 3.104.2.7 [place] .3.793866 Medica l .8 [place] 2019-08-26 2019-08-26 [facility] [id number] Univers 15:00:00 15:00:00 KESHAWN ity of [facility] 2019-08-26 2019-08-26 [facility] [id number] Univers 15:00:00 15:00:00 KESHAWN ity of [facility] 2019-08-22 2019-08-22 Patient Serge, [facility] 1.2.375.397 [id number] Univers 00:00:00 00:00:00 Secure Msg Keshawn LEROSEMARY 350.1.13.10 ity of [facility] [place] [phone] Me dical AND [address] [place] [address] E CLINIC 2019-08-22 2019-08-22 Patient Serge [facility] 1.2.226.269 [id number] Univers 00:00:00 00:00:00 Secure Msg [place] LEROSEMARY 350.1.13.10 ity of [facility] 4[place] [phone] Me dical AND [address] [place] [address] E [facility] 2019-08-19 2019-08-19 Nurse Constantine, 1.2.840.5 [id number] Univers 00:00:00 00:00:00 Triage Deysi D 12903.1.1 ity of 3.104.2.7 [place] .3.976527 Medica l .8 [place] 2019-08-19 2019-08-19 Refrafia Valentine, 1.2.840.9 [id number] 747 [id number] Univers 00:00:00 00:00:00 Keshawn 29471.1.1 ity of [place] 3.104.2.7 [place] .3.784680 Med[facility] l .8 [place] 2019-08-19 2019-08-19 Telephone Serge, 1.2.840.9 [id number] Univers 00:00:00 00:00:00 Keshawn 32587.1.1 ity of [place] 3.104.2.7 [place] .3.526476 Medica l .8 [place] 2019-08-19 2019-08-19 Refill Serge, 1.2.840.0 [id number] 747 [id number] Univers 00:00:00 00:00:00 [place] 17847.1.1 ity of [place] 3.104.2.7 [place] .3.902334 Medica l .8 [place] 2019-08-18 2019-08-18 Office Serge 1.2.840.7 [id number] 742 [id number] Univers 13:07:26 13:22:26 Visit Keshawn 74760.1.1 ity of [place] 3.104.2.7 [place] .3.309999 Medica l .8 [place] 2019-08-18 2019-08-18 Outpatient Abel SERGE, [facility] [id number] Univers 13:00:00 13:00:00 KESHAWN ity of [facility] 2019-08-18 2019-08-18 Refrafia Valentine 1.2.840.1 [id number] 747 [id number] Univers 00:00:00 00:00:00 [place] 53593.1.1 ity of [place] 3.104.2.7 [place] .3.815738 Medica l .8 [place] 2019-08-11 2019-08-11 Outpatient Abel DOTSON, [facility] [id number] Univers 10:45:00 10:45:00 GABE ity of [facility] 2019-08-11 2019-08-11 Orders Doctor 1.2.840.3 [id number] Univers 00:00:00 00:00:00 Only Unassigned, 80522.1.1 ity of [place] 3.104.2.7 [place] .3.502945 Medica l .8 [place] 2019-08-04 2019-08-04 Outpatient SANDRA, [facility] [id number] Ava 00:00:00 00:00:00 JEAN PIERRE 786 Method i 2019-08-01 2019-08-01 Outpatient SANDRA, [facility] [id number] Ava 00:00:00 00:00:00 JEAN PIERRE 062 Method i 2019-07-26 2019-07-28 Outpatient JULIANNE, [facility] [id number] Ava 00:00:00 00:00:00 DANIKA 312 Met [place] 2019-07-25 2019-07-25 Emergency HUWEST, [facility] [id number] Ava 00:00:00 00:00:00 JANA 764 Method i 2019-07-10 2019-07-10 Jasper Dick 1.2.840.1 [id number] Univers 00:00:00 00:00:00 Rosemary Heath 26312.1.1 i ty of 3.104.2.7 [place] .3.597398 Medica l .8 [place] 2019-07-02 2019-07-02 Jasper Valentine, 1.2.840.8 [id number] 738 [id number] Univers 00:00:00 00:00:00 [place] 14544.1.1 ity of [place] 3.104.2.7 [place] .3.801017 Medica l .8 [place] 2019-07-01 2019-07-01 Jasper Valentine, 1.2.840.4 [id number] 738 [id number] Univers 00:00:00 00:00:00 [place] 25775.1.1 ity of [place] 3.104.2.7 [place] .3.341915 Medica l .8 [place] 2019-06-07 2019-06-07 Jasper Valentine 1.2.840.1 [id number] 733 [id number] Univers 00:00:00 00:00:00 Keshawn 89306.1.1 ity of [place] 3.104.2.7 [place] .3.630963 Medica l .8 Branch 2019-05-27 2019-05-27 Telephone Serge 1.2.840.0 [id number] Univers 00:00:00 00:00:00 Keshawn 21720.1.1 ity of [place] 3.104.2.7 [place] .3.104114 Medica l .8 Branch 2019-05-26 2019-05-26 Orders Doctor 1.2.840.1 [id number] Univers 00:00:00 00:00:00 Only Unassigned, 54763.1.1 ity of [place] 3.104.2.7 [place] .3.499028 Medica l .8 Branch 2019-05-10 2019-05-10 Telephone Kapil, 1.2.840.1 [id number] 728 [id number] Univers 00:00:00 00:00:00 Rosemary Heath 91429.1.1 i ty of 3.104.2.7 [place] .3.103516 Medica l .8 [place] 2019-05-10 2019-05-10 Jasper Valentine 1.2.840.2 [id number] 728 [id number] Univers 00:00:00 00:00:00 Keshawn 34578.1.1 ity of [place] 3.104.2.7 [place] .3.053982 Medica l .8 [place] 2019-05-09 2019-05-09 Jasper Dick, 1.2.840.3 [id number] Univers 00:00:00 00:00:00 Rosemary Heath 35188.1.1 i ty of 3.104.2.7 [place] .3.499159 Medica l .8 [place] 2019-04-12 2019-04-12 Cherry Valentine 1.2.840.1 [id number] Univers 00:00:00 00:00:00 [place] 08387.1.1 ity of [place] 3.104.2.7 [place] .3.328536 Medica l .8 Branch 2019-04-11 2019-04-11 Jasper Valentine 1.2.840.3 [id number] 723 [id number] Univers 00:00:00 00:00:00 Keshawn 34454.1.1 ity of [place] 3.104.2.7 [place] .3.535284 Medica l .8 [place] 2019-04-10 2019-04-10 Jasper Valentine, 1.2.840.9 [id number] 723 [id number] Univers 00:00:00 00:00:00 [place] 08759.1.1 ity of [place] 3.104.2.7 [place] .3.422339 Medica l .8 Branch 2019-04-05 2019-04-05 Jasper Valentine 1.2.840.1 [id number] 722 [id number] Univers 00:00:00 00:00:00 Keshawn 29976.1.1 ity of [place] 3.104.2.7 [place] .3.678910 Medica l .8 Branch 2019-03-24 2019-03-24 Orders Doctor 1.2.840.3 [id number] Univers 00:00:00 00:00:00 Only Unassigned, 20692.1.1 ity of [place] 3.104.2.7 [place] .3.315933 Medica l .8 Branch 2019-02-24 2019-02-24 Patient Serge [facility] 1.2.088.207 [id number] Univers 00:00:00 00:00:00 Secure Msg [place] SRIAGUE 350.1.13.10 ity of [facility] 4[place].2.[place] 165.6194582 Wi dical AND [address] [facility] 2019-02-24 2019-02-24 Jasper Valentine, 1.2.840.0 [id number] 715 [id number] Univers 00:00:00 00:00:00 Keshawn 63225.1.1 ity of [place] 3.104.2.7 [place] .3.698946 Medica l .8 Branch 2019-02-24 2019-02-24 Jasper Valentine, 1.2.840.5 [id number] 715 [id number] Univers 00:00:00 00:00:00 Keshawn 19660.1.1 ity of [place] 3.104.2.7 [place] .3.946927 Medica l .8 Branch 2019-02-24 2019-02-24 Jasper Valentine, 1.2.840.6 [id number] 715 [id number] Univers 00:00:00 00:00:00 [place] 25317.1.1 ity of [place] 3.104.2.7 [place] .3.651522 Medica l .8 Branch 2019-02-24 2019-02-24 Jasper Valentine, 1.2.840.8 [id number] 715 [id number] Univers 00:00:00 00:00:00 Keshawn 84578.1.1 ity of [place] 3.104.2.7 [place] .3.927379 Medica l .8 Branch 2019-02-23 2019-02-23 Jasper Valentine, 1.2.840.9 [id number] 715 [id number] Univers 00:00:00 00:00:00 Keshawn 40948.1.1 ity of [place] 3.104.2.7 [place] .3.585337 Medica l .8 Branch 2019-02-21 2019-02-21 Cherry Valentine 1.2.840.5 [id number] Univers 00:00:00 00:00:00 Keshawn 86502.1.1 ity of [place] 3.104.2.7 [place] .3.102689 Medica l .8 Branch 2019-02-18 2019-02-18 Office Serge, 1.2.840.9 [id number] Univers 15:49:00 16:04:00 Visit Keshawn 16745.1.1 ity of [place] 3.104.2.7 [place] .3.312869 Medica l .8 [place] 2019-02-17 2019-02-17 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 Dick 1.2.840.7 [id number] Univers 09:01:36 16:08:39 Visit Vls-Lab 72580.1.1 ity of 3.104.2.7 [place] .3.199032 Medica l .8 [place] 2019-02-17 2019-02-17 Office Kapil 1.2.840.1 [id number] Univers 09:09:27 10:03:06 Visit Rosemary Heath 97412.1.1 i ty of 3.104.2.7 [place] .3.544801 Medica l .8 [place] 2019-02-11 2019-02-11 Orders Doctor 1.2.840.6 [id number] Univers 00:00:00 00:00:00 Only Unassigned, 77864.1.1 ity of [place] 3.104.2.7 [place] .3.124684 Medica l .8 [place] 2019-02-09 2019-02-09 Refill Serge 1.2.840.2 [id number] 712 [id number] Univers 00:00:00 00:00:00 [place] 72552.1.1 ity of [place] 3.104.2.7 [place] .3.101970 Medica l .8 Branch 2019-01-31 2019-01-31 Patient Serge [facility] 1.2.893.072 [id number] Univers 00:00:00 00:00:00 Secure Msmarilyn PENA 350.1.13.10 ity of [facility] 4.2.7.2.[place] 229.3473334 Wi dical AND [address] [facility] 2019-01-11 2019-01-11 Office Serge, 1.2.840.1 [id number] 703 [id number] Univers 08:45:17 09:00:17 Visit Keshawn 94705.1.1 ity of [place] 3.104.2.7 [place] .3.074859 Medica l .8 Branch 2019-01-11 2019-01-11 Orders Doctor 1.2.840.2 [id number] Univers 00:00:00 00:00:00 Only Unassigned, 28641.1.1 ity of [place] 3.104.2.7 [place] .3.213597 Medica l .8 Branch 2018-12-21 2018-12-21 Jasper Valentine, 1.2.840.3 [id number] 703 [id number] Univers 00:00:00 00:00:00 [place] 76601.1.1 ity of [place] 3.104.2.7 [place] .3.598623 Medica l .8 Branch 2018-12-20 2018-12-20 Jasper Valentine, 1.2.840.9 [id number] 703 [id number] Univers 00:00:00 00:00:00 [place] 94481.1.1 ity of [place] 3.104.2.7 [place] .3.551074 Medica l .8 Branch 2018-12-20 2018-12-20 Jasper Valentine 1.2.840.7 [id number] 703 [id number] Univers 00:00:00 00:00:00 Keshawn 43911.1.1 ity of [place] 3.104.2.7 [place] .3.709232 Medica l .8 Branch 2018-12-14 2018-12-14 Jasper Dick 1.2.840.7 [id number] Univers 00:00:00 00:00:00 Rosemary Kumar 47128.1.1 i ty of 3.104.2.7 [place] .3.721092 Medica l .8 Branch 2018-11-23 2018-11-23 Jasper Valentine 1.2.840.5 [id number] [id number] Univers 00:00:00 00:00:00 Keshawn 45196.1.1 ity of [place] 3.104.2.7 [place] .3.575162 Medica l .8 Branch 2018-11-19 2018-11-19 Telephone Team, [facility] 1.2.840.9 [id number] Univers 00:00:00 00:00:00 Health 51255.1.1 [place]y [place].2.7 [place] .3.774326 [place] .8 [place] 2018-11-18 2018-11-18 Telephone Kapil, 1.2.840.1 [id number] Univers 00:00:00 00:00:00 Rosemary Heath 29981.1.1 i ty of 3.104.2.7 [place] .3.344113 Medica l .8 [place] Results Test Description Test Time Test Comments Results Result Comments Source IONIZED CALCIUM 2022-01-25 08:35:55 Test Item Value Reference Range Interpretation Comme nts IONIZED CA (test code = 4991169786) 4.70 mg/dL 4.5-5.3 PH SERUM (test code = 2755273647) 7.35-7.45 L QUES Lab Interpretation (test code = 28407-2) [facility]normal [facility] [id number] 04:46:36 Test Item Value Reference Range Interpretation Comments TSH (test code = See_Comment [Automated message] 0612368895) The system [employer] generated this result transmitted ref erence range: 0.45 - 4 .70 mIU/L. The refe rence range was not u sed to interpret this result as normal/abnor mal. Lab Interpretation (test Normal code = 80514-2) [facility], [id number] 04:32:56 Test Item Value Reference Range Interpretation Comments T4 TOTAL (test code = See_Comment [Auto mated 1058928469) message] The system which generated this result transmitted reference range : 5.5 - 11.0 mcg/dL. The reference range was not used to interpret this result as normal/abnormal . JEIMY (test code = JEIMY) Normal Range or Expected Values will vary for patients who are on ovulation control drugs or . ? Lab Interpretation Normal (test code = 03973-3) [facility]GLOBIN (A1C)2022-01-25 04:20:43 Test Item Value Reference Range Interpretation Comments HGB A1C (test code = 8.2 % 4-5.7 H 4548-4) JEIMY (test code = JEIMY) Reference RangesNormal: <5.7%Prediabetes: 5.7 - 6.4%Diabetes: > 6.5% Lab Interpretation (test Abnormal code = 26297-7) [facility] CenterCOMP[facility]OLIC PANEL (80703)2022-01-25 04:18:51 Test Item Value Reference Range Interpretation Comments NA (test code = 142 mmol/L 135-145 0552441392) K (test code = 3.8 mmol/L 3.5-5 2615295443) CL (test code = 103 mmol/L 98-108 9640042590) CO2 TOTAL (test code 30 mmol/L 23-31 = 4512496457) AGAP (test code = 2-16 8289241976) BUN (test code = 14 mg/dL 7-23 2481275297) GLUCOSE (test code = 78 mg/dL 70-110 6532791596) CREATININE (test code 0.79 mg/dL 0.5-1.04 = 9510453055) TOTAL BILI (test code 0.4 mg/dL 0.1-1.1 = 4146174419) CALCIUM (test code = 9.0 mg/dL 8.6-10.6 9152143013) T PROTEIN (test code 7.2 g/dL 6.3-8.2 = 3666866791) ALBUMIN (test code = 4.6 g/dL 3.5-5 8966040622) ALK PHOS (test code = 72 U/L 34-122 5354854522) ALTv (test code = 18 U/L 5-35 1742-6) AST(SGOT) (test code 27 U/L 13-40 = 5397332822) eGFR (test code = mL/min/1.73m2 3987409200) JEIMY (test code = JEIMY) Association of Glomerular Filtration Rate (GFR) and Staging of Kidney Disease* + + +- +| GFR (mL/min/1.73 m2) ?| With Kidney Damage ?| ?Without Kidney Damage+ ------+ ----+ ------+| ?>90 ?| ?Stage one ?| ? Normal ?+ -+ + -+| ?60-89 ?| ?Stage two ?| ? Decreased GFR ? + + +- +| ?30-59 ?| ?Stage three ?| ? Stage three ? + + +- +| ?15-29 ?| ?Stage four ? | ? Stage four ?+ -+ + -+| ?<15 (or dialysis) ? ?| ?Stage five ? | ? Stage five ?+ -+ + -+ *Each stage assumes the associated GFR level has been in effect for at least three months. ?Stages 1 to 5, with or without kidney disease, indicate chronic kidney disease. Notes: Determination of stages one and two (with eGFR >59mL/min/1.73 m2) requires estimation of kidney damage for at least three months as defined by structural or functional abnormalities of the kidney, manifested by either:Pathological abnormalities or Markers of kidney damage (including abnormalities in the composition of the blood or urine or abnormalities in imaging tests). [facility] WITH [id number] 04:04:32 Test Item Value Reference Range Interpretation Comments WBC (test code = See_Comment [Automated 6116-2) message] The sy stem which generated this result transmitted reference range : 4.30 - 11.10 10*3/?L. The reference range was not used to interpret this result as normal/abnormal . RBC (test code = See_Comment [Automated 605-8) message] The sy stem which generated this result transmitted reference range : 3.93 - 5.25 10*6/?L. The reference range was not used to interpret this result as normal/abnormal . HGB (test code = 14.1 g/dL 11.6-15 718-7) HCT (test code = 42.3 % 35.7-45.2 4544-3) MCV (test code = 88.1 fL 80.6-95.5 787-2) MCH (test code = 29.4 pg 25.9-32.8 785-6) MCHC (test code = 33.3 g/dL 31.6-35.1 786-4) RDW-SD (test code = 37.9 fL 39-49.9 L 96923-4) RDW-CV (test code = 11.8 % 12-15.5 L 788-0) PLT (test code = See_Comment [Automated 777-3) message] The sy stem which generated this result transmitted reference range : 166 - 358 10*3/ ?L. The reference r estee was not used to interpret this result as normal/abnormal . MPV (test code = 11.4 fL 9.5-12.9 78092-5) NRBC/100 WBC (test See_Comment [Automat ed code = 8352920404) message] The system which generated this result transmitted reference range : 0.0 - 10.0 /100 WBCs. The refer ence range was not u sed to interpret th is result as normal/abnormal . NRBC x10^3 (test code See_Comment [Auto mated = 9145960739) message] The s ystem which generated this result transmitted reference range : 10*3/?L. The reference range was not used to interpret this result as normal/abnormal . GRAN MAT (NEUT) % 50.2 % (test code = 770-8) IMM GRAN % (test code 0.20 % = 6370886872) LYMPH % (test code = 42.4 % 736-9) MONO % (test code = 5.7 % 5905-5) EOS % (test code = 0.7 % 713-8) BASO % (test code = 0.8 % 706-2) GRAN MAT x10^3(ANC) 2.99 10*3/uL 1.88-7.09 (test code = 0568209696) IMM GRAN x10^3 (test 0-0.06 code = 3970161086) LYMPH x10^3 (test code 2.53 10*3/uL 1.32-3.29 = 731-0) MONO x10^3 (test code 0.34 10*3/uL 0.33-0.92 = 742-7) EOS x10^3 (test code = 0.04 10*3/uL 0.03-0.39 711-2) BASO x10^3 (test code 0.05 10*3/uL 0.01-0.07 = 704-7) Lab Interpretation Abnormal (test code = 06540-5) [facility] WITH [id number] 04:04:32 Test Item Value Reference Range Interpretation Comments WBC (test code = See_Comment [Automated 6690-2) message] The sy stem which generated this result transmitted reference range : 4.30 - 11.10 10*3/?L. The reference range was not used to interpret this result as normal/abnormal . RBC (test code = See_Comment [Automated 789-8) message] The sy stem which generated this result transmitted reference range : 3.93 - 5.25 10*6/?L. The reference range was not used to interpret this result as normal/abnormal . HGB (test code = 14.1 g/dL 11.6-15 718-7) HCT (test code = 42.3 % 35.7-45.2 4544-3) MCV (test code = 88.1 fL 80.6-95.5 787-2) MCH (test code = 29.4 pg 25.9-32.8 785-6) MCHC (test code = 33.3 g/dL 31.6-35.1 786-4) RDW-SD (test code = 37.9 fL 39-49.9 L 91703-2) RDW-CV (test code = 11.8 % 12-15.5 L 788-0) PLT (test code = See_Comment [Automated 777-3) message] The sy stem which generated this result transmitted reference range : 166 - 358 10*3/ ?L. The reference r estee was not used to interpret this result as normal/abnormal . MPV (test code = 11.4 fL 9.5-12.9 77746-8) NRBC/100 WBC (test See_Comment [Automat ed code = [id number]) message] The system which generated this result transmitted reference range : 0.0 - 10.0 /100 WBCs. The refer ence range was not u sed to interpret th is result as normal/abnormal . NRBC x10^3 (test code See_Comment [Auto mated = [id number]) message] The s ystem which generated this result transmitted reference range : 10*3/?L. The reference range was not used to interpret this result as normal/abnormal . GRAN MAT (NEUT) % 50.2 % (test code = 770-8) IMM GRAN % (test code 0.20 % = [id number]) LYMPH % (test code = 42.4 % 736-9) MONO % (test code = 5.7 % 5905-5) EOS % (test code = 0.7 % 713-8) BASO % (test code = 0.8 % 706-2) GRAN MAT x10^3(ANC) 2.99 10*3/uL 1.88-7.09 (test code = [id number]) IMM GRAN x10^3 (test 0-0.06 code = [id number]) LYMPH x10^3 (test code 2.53 10*3/uL 1.32-3.29 = 731-0) MONO x10^3 (test code 0.34 10*3/uL 0.33-0.92 = 742-7) EOS x10^3 (test code = 0.04 10*3/uL 0.03-0.39 711-2) BASO x10^3 (test code 0.05 10*3/uL 0.01-0.07 = 704-7) Lab Interpretation Abnormal (test code = 05595-2) [facility] URINALYSIS W SPECIFIC [id number] 19:15:00 Test Item Value Reference Range Interpretation Comments POCT U SP GRAV (test code = 1.015 mg/dl 1.005-1.025 3255) POCT PH U (test code = 3254) 7 mg/dl 5-8 POCT U LEUK EST (test code = + Negative - Negative 3263) POCT U NIT (test code = 3262) Negative Negative - Negative POCT U PROT (test code = Trace Negative - Negative 3259) POCT U GLU (test code = 3256) Normal Negative - Negative POCT U KETONE (test code = Negative Negative - Negative 3258) POCT U UROBILI (test code = Normal 0.2-1 3260) POCT U BILI (test code = Negative Negative - Negative 3261) POCT U BLD (test code = 3257) about 250 Negative - Negative POCT U COLOR (test code = Dark yellow 3266) POCT U APPEAR (test code = turbid 3267) [facility] [id number] 19:15:00 Test Item Value Reference Range Interpretation Comments POCT U SP GRAV (test code = 1.015 mg/dl 1.005-1.025 3255) POCT PH U (test code = 3254) 7 mg/dl 5-8 POCT U LEUK EST (test code = + Negative - Negative 3263) POCT U NIT (test code = 3262) Negative Negative - Negative POCT U PROT (test code = Trace Negative - Negative 3259) POCT U GLU (test code = 3256) Normal Negative - Negative POCT U KETONE (test code = Negative Negative - Negative 3258) POCT U UROBILI (test code = Normal 0.2-1 3260) POCT U BILI (test code = Negative Negative - Negative 3261) POCT U BLD (test code = 3257) about 250 Negative - Negative POCT U COLOR (test code = Dark yellow 3266) POCT U APPEAR (test code = turbid 3267) [facility]
--- NOTE | 2022-06-10 01:40 | ER ---
Nurse's Notes [facility] Name: Pamela Richter Age: 41 yrs Sex: Female : 1980 Arrival Date: 06/09/2022 Time: 23:37 Bed [id number] [facility] MD: Diagnosis: ED Course: 06/09 23:37 Patient arrived in ED. [id number] 06/10 00:06 Orion Trevino PA is PHCP. cp 00:06 Orion Cook MD is Attending Physician. cp Administered Medications: No medications were administered Outcome: 01:39 Patient left the ED. vc1 Signatures: Orion Trevino PA PA cp Jeffries, Jennifer [id number] Michelle Rojas RN RN vc1
== END 2022-06-10 01:39 | disposition left against medical advice (07) ==
LOC: ER 23:33
DX: Z02.9 Encounter for administrative examinations, unspecified (principal)

== ENCOUNTER 2022-06-10 15:50 | Emergency (ER) | payer OTHER ==
--- OUTSIDE RECORDS SUMMARY | 2022-06-10 16:04 | XMS REPORT | Continuity of Care Document ---
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 200mg Take 2 [facility] 100 mg 0-11 tablets by ity of tablet 00:00: mouth in [place] the morning. Branch prazosin 2021-06 Yes [id number] 1mg Take 1 U nivers mg capsule 0-11 capsule by ity of 00:00: mouth at [place] [address] bedtime. [facility] Branch lamoTRIgine 2021-06 Yes [id number] 200mg Take 2 [facility] 100 mg 0-11 tablets by ity of tablet 00:00: mouth in [place] the morning. Branch prazosin 2021-06 Yes [id number] 1mg Take 1 U nivers mg capsule 0-11 capsule by ity of 00:00: mouth at [place] [address] bedtime. Medical Branch lamoTRIgine 2021-06 Yes [id number] 200mg Take 2 [facility] 100 mg 0-11 tablets by ity of tablet 00:00: mouth in [place] the Medical morning. Branch prazosin 2021-06 Yes [id number] 1mg Take 1 U nivers mg capsule 0-11 capsule by ity of 00:00: mouth at [place] [address] bedtime. [facility] Branch lamoTRIgine 2021-06 Yes [id number] 200mg Take 2 [facility] 100 mg 0-11 tablets by ity of tablet 00:00: mouth in [place] the Medical morning. Branch prazosin 2021-06 Yes [id number] 1mg Take 1 U nivers mg capsule 0-11 capsule by ity of 00:00: mouth at [place] [address] bedtime. Medical Branch lamoTRIgine 2021-06 Yes [id number] 200mg Take 2 [facility] 100 mg 0-11 tablets by ity of tablet 00:00: mouth in [place] the Medical morning. Branch prazosin 2021-06 Yes [id number] 1mg Take 1 [facility] nivers mg capsule 0-11 capsule by ity of 00:00: mouth at [place] [address] bedtime. Medical Branch lamoTRIgine 2021-06 Yes [id number] 200mg Take 2 [facility] 100 mg 0-11 tablets by ity of tablet 00:00: mouth in [place] the Medical morning. Branch prazosin 2021-06 Yes [id number] 1mg Take 1 [facility] nivers mg capsule 0-11 capsule by ity of 00:00: mouth at [place] [address] bedtime. Medical Branch lamoTRIgine 2021-06 Yes [id number] 200mg Take 2 [facility] 100 mg 0-11 tablets by ity of tablet 00:00: mouth in [place] the Medical morning. Branch prazosin 2021-06 Yes [id number] 1mg Take 1 U nivers mg capsule 0-11 capsule by ity of 00:00: mouth at [place] [address] bedtime. [facility] Branch lamoTRIgine 2021-06 Yes [id number] 200mg Take 2 [facility] 100 mg 0-11 tablets by ity of tablet 00:00: mouth in [place] the Medical morning. Branch prazosin 2021-06 Yes [id number] 1mg Take 1 [facility] nivers mg capsule 0-11 capsule by ity of 00:00: mouth at [place] [address] bedtime. Medical Branch lamoTRIgine 2021-06 Yes [id number] 200mg Take 2 [facility] 100 mg 0-11 tablets by ity of tablet 00:00: mouth in [place] the Medical morning. Branch prazosin 2021-06 Yes [id number] 1mg Take 1 [facility] nivers mg capsule 0-11 capsule by ity of 00:00: mouth at [place] [address] bedtime. [facility] Branch LORazepam 2021-06- No [id number] 1mg Take 1 U nivers (ATIVAN) 1 0-11 10-25 tablet by ity of mg tablet 00:00: 00:[place] mouth 2 [place] 00 :[place] (two) Medical times Branch daily as needed for Anxiety or Agitation. LORazepam 2021-06 Yes [id number] 1mg Take 1 [facility] [place] (ATIVAN) 1 0-10 tablet by ity of mg tablet 00:00: mouth 2 [place] 00 (two) Medical times Branch daily as needed for Anxiety or Agitation. prazosin 2021-06 Yes [id number] 1mg Take 1 [facility] nivers mg capsule 0-10 capsule by ity of 00:00: mouth at [place] 00 bedtime. Medical Branch lamoTRIgine 2021-06 Yes [id number] 200mg Take 2 [facility] 100 mg 0-10 tablets by ity of tablet 00:00: mouth in [place] 00 the Medical morning. Branch LORazepam 2021-06 Yes [id number] 1mg Take 1 [facility] [place] (ATIVAN) 1 0-10 tablet by ity of mg tablet 00:00: mouth 2 [place] 00 (two) Medical times Branch daily as needed for Anxiety or Agitation. prazosin 2021-06 Yes [id number] 1mg Take 1 [facility] nivers mg capsule 0-10 capsule by ity of 00:00: mouth at [place] 00 bedtime. Medical Branch lamoTRIgine 2021-06 Yes [id number] 200mg Take 2 [facility] 100 mg 0-10 tablets by ity of tablet 00:00: mouth in [place] 00 the Medical morning. Branch LORazepam 2021-06- No [id number] 1mg Take 1 [facility] nivers (ATIVAN) 1 0-10 10-11 tablet by ity of mg tablet 00:00: 00:[place] mouth 2 [place] 00 :[place] (two) Medical times Branch daily as needed for Anxiety or Agitation. prazosin 1 2021-06- No [id number] 1mg Take 1 [facility] mg capsule 0-10 10-11 capsule by it y of 00:00: 00:00 mouth at [place] 00 :00 bedtime. Medical Branch lamoTRIgine 2021-06- No [id number] 200mg Take 2 [facility] 100 mg 0-10 10-11 tablets by ity of tablet 00:00: 00:00 mouth in [place] 00 :00 the Medical morning. Branch FAMOTIDINE 2021-06 Yes [id number] TAKE ONE [facility] 40 mg 0-04 TABLET BY ity of tablet 00:00: MOUTH [place] 00 EVERY DAY Medical IN THE [place] MORNING. FAMOTIDINE 2021-06 Yes [id number] TAKE ONE [facility] 40 mg 0-04 TABLET BY ity of tablet 00:00: MOUTH [place] 00 EVERY DAY Medical IN THE [place] MORNING. FAMOTIDINE 1 Yes [id number] TAKE ONE [facility] 40 mg 0-04 TABLET BY ity of tablet 00:00: MOUTH [place] 00 EVERY DAY Medical IN THE [place] MORNING. FAMOTIDINE 1 Yes [id number] TAKE ONE [facility] 40 mg 0-04 TABLET BY ity of tablet 00:00: MOUTH [place] 00 EVERY DAY Medical IN THE [place] MORNING. FAMOTIDINE 1 Yes [id number] TAKE ONE [facility] 40 mg 0-04 TABLET BY ity of tablet 00:00: MOUTH [place] 00 EVERY DAY Medical IN THE [place] MORNING. FAMOTIDINE 1 Yes [id number] TAKE ONE [facility] 40 mg 0-04 TABLET BY ity of tablet 00:00: MOUTH [place] 00 EVERY DAY Medical IN THE [place] MORNING. FAMOTIDINE 2021-06 Yes [id number] TAKE ONE [facility] 40 mg 0-04 TABLET BY ity of tablet 00:00: MOUTH [place] 00 EVERY DAY Medical IN THE [place] MORNING. FAMOTIDINE 1 Yes [id number] TAKE ONE [facility] 40 mg 0-04 TABLET BY ity of tablet 00:00: MOUTH [place] 00 EVERY DAY Medical IN THE [place] MORNING. FAMOTIDINE 1 Yes [id number] TAKE ONE [facility] 40 mg 0-04 TABLET BY ity of tablet 00:00: MOUTH [place] 00 EVERY DAY Medical IN THE [place] MORNING. FAMOTIDINE 1 Yes [id number] TAKE ONE [facility] 40 mg 0-04 TABLET BY ity of tablet 00:00: MOUTH [place] 00 EVERY DAY Medical IN THE [place] MORNING. FAMOTIDINE 2021-06- No [id number] TAKE ONE [facility] 40 mg 0-04 11-03 TABLET BY ity of tablet 00:00: 00:00 MOUTH [place] 00 :00 EVERY DAY Medical IN THE [place] MORNING. LORazepam Yes [id number] 1mg Take 1 [facility] [place] (ATIVAN) 1 9-12 tablet by ity of mg tablet 00:00: mouth 2 [place] 00 (two) Medical times [place] daily as needed for Anxiety or Agitation. LORazepam 2021-0 Yes [id number] 1mg Take 1 [facility] [place] (ATIVAN) 1 9-12 tablet by ity of mg tablet 00:00: mouth 2 (two) Medical times Branch daily as needed for Anxiety or Agitation. LORazepam 2021-0 Yes [id number] 1mg Take 1 [facility] [place] (ATIVAN) 1 9-12 tablet by ity of mg tablet 00:00: mouth 2 00 (two) Medical times Branch daily as needed for Anxiety or Agitation. LORazepam 2021-0 Yes [id number] 1mg Take 1 [facility] [place] (ATIVAN) 1 9-12 tablet by ity of mg tablet 00:00: mouth 2 (two) Medical times Branch daily as needed for Anxiety or Agitation. LORazepam 2021-0 Yes [id number] 1mg Take 1 [facility] [place] (ATIVAN) 1 9-12 tablet by ity of mg tablet 00:00: mouth 2 (two) Medical times Branch daily as needed for Anxiety or Agitation. LORazepam 2021- No [id number] 1mg Take 1 [facility] nivers (ATIVAN) 1 9-12 10-10 tablet by ity of mg tablet 00:00: 00:00 mouth 2 [place] 00 :[place] (two) Medical times Branch daily as needed for Anxiety or Agitation. famotidine 0 Yes [id number] 40mg Take 1 [facility] (PEPCID) 40 9-01 tablet by ity of mg tablet 00:00: mouth in [place] 00 the Medical morning. Branch famotidine 0 Yes [id number] 40mg Take 1 [facility] (PEPCID) 40 9-01 tablet by ity of mg tablet 00:00: mouth in [place] 00 the Medical morning. Branch famotidine 0 Yes [id number] 40mg Take 1 [facility] (PEPCID) 40 9-01 tablet by ity of mg tablet 00:00: mouth in [place] 00 the Medical morning. Branch famotidine 0 Yes [id number] 40mg Take 1 [facility] (PEPCID) 40 9-01 tablet by ity of mg tablet 00:00: mouth in [place] 00 the Medical morning. Branch famotidine 0 2022- No [id number] 40mg Take 1 [facility] (PEPCID) 40 02-06 tablet by it y of mg tablet 00:00: 00:00 mouth in [place] 00 :00 the Medical morning. Branch famotidine 2021- No [id number] 40mg Take 1 [facility] (PEPCID) 40 02-06 tablet by it y of mg tablet 00:00: 00:00 mouth in [place] 00 :00 the Medical morning. Branch Nitrofurant Yes [id number] 100mg Take 1 [facility] oin&Nit. 8-19 capsule by ity o f Macrocryst 00:00: mouth in [place] ([place]CROB[place]) 00 the Medical 100 mg morning Branch capsule and 1 capsule in the evening. Nitrofurant Yes [id number] 100mg Take 1 [facility] oin&Nit. 8-19 capsule by ity o f Macrocryst 00:00: mouth [place] ([place]CROB[place]) 00 the Medical 100 mg morning Branch capsule and 1 capsule in the evening. Nitrofurant Yes [id number] 100mg Take 1 [facility] oin&Nit. 8-19 capsule by ity o f Macrocryst 00:00: mouth [place] ([place]CR[place]) 00 the Medical 100 mg morning Branch capsule and 1 capsule in the evening. Nitrofurant Yes [id number] 100mg Take 1 [facility] oin&Nit. 8-19 capsule by ity o f Macrocryst 00:00: mouth [place] ([place]CROB[place]) 00 the Medical 100 mg morning Branch capsule and 1 capsule in the evening. Nitrofurant Yes [id number] 100mg Take 1 [facility] oin&Nit. 8-19 capsule by ity o f Macrocryst 00:00: mouth [place] ([place]CROB[place]) 00 the Medical 100 mg morning Branch capsule and 1 capsule in the evening. Nitrofurant 0 Yes [id number] 100mg Take 1 [facility] oin&Nit. 8-19 capsule by ity o f Macrocryst 00:00: mouth [place] ([place]CROB[place]) 00 the Medical 100 mg morning Branch capsule and 1 capsule in the evening. Nitrofurant Yes [id number] 100mg Take 1 [facility] oin&Nit. 8-19 capsule by ity o f Macrocryst 00:00: mouth [place] ([place]CROB[place]) 00 the Medical 100 mg morning Branch capsule and 1 capsule in the evening. Nitrofurant 0 Yes [id number] 100mg Take 1 [facility] oin&Nit. 8-19 capsule by ity o f Macrocryst 00:00: mouth [place] ([place]CROB[place]) 00 the Medical 100 mg morning Branch capsule and 1 capsule in the evening. Nitrofurant 0 Yes [id number] 100mg Take 1 [facility] oin&Nit. 8-19 capsule by ity o f Macrocryst 00:00: mouth in [place] ([place]CROB[place]) 00 the Medical 100 mg morning Branch capsule and 1 capsule in the evening. Nitrofurant Yes [id number] 100mg Take 1 [facility] oin&Nit. 8-19 capsule by ity o f Macrocryst 00:00: mouth [place] ([place]CROB[place]) 00 the Medical 100 mg morning Branch capsule and 1 capsule in the evening. Nitrofurant Yes [id number] 100mg Take 1 [facility] oin&Nit. 8-19 capsule by ity o f Macrocryst 00:00: mouth in [place] ([place]CR[place]) 00 the Medical 100 mg morning Branch capsule and 1 capsule in the evening. Nitrofurant Yes [id number] 100mg Take 1 [facility] oin&Nit. 8-19 capsule by ity o f Macrocryst 00:00: mouth in [place] ([place]CR[place]) 00 the Medical 100 mg morning Branch capsule and 1 capsule in the evening. Nitrofurant 0 Yes [id number] 100mg Take 1 [facility] oin&Nit. 8-19 capsule by ity o f Macrocryst 00:00: mouth in [place] ([place]CR[place]) 00 the Medical 100 mg morning Branch capsule and 1 capsule in the evening. Nitrofurant 0 Yes [id number] 100mg Take 1 [facility] oin&Nit. 8-19 capsule by ity o f Macrocryst 00:00: mouth [place] ([place]CROB[place]) 00 the Medical 100 mg morning Branch capsule and 1 capsule in the evening. Nitrofurant 2021-0 Yes [id number] 100mg Take 1 [facility] oin&Nit. 8-19 capsule by ity o f Macrocryst 00:00: mouth in [place] ([place]CR[place]) 00 the Medical 100 mg morning Branch capsule and 1 capsule in the evening. Nitrofurant 2021-0 Yes [id number] 100mg Take 1 [facility] oin&Nit. 8-19 capsule by ity o f Macrocryst 00:00: mouth in [place] ([place]CROBID) 00 the Medical 100 mg morning Branch capsule and 1 capsule in the evening. Nitrofurant 2021-0 Yes [id number] 100mg Take 1 [facility] oin&Nit. 8-19 capsule by ity o f Macrocryst 00:00: mouth in [place] ([place]CROB[place]) 00 the Medical 100 mg morning Branch capsule and 1 capsule in the evening. Nitrofurant 0 Yes [id number] 100mg Take 1 [facility] oin&Nit. 8-19 capsule by ity o f Macrocryst 00:00: mouth [place] ([place]CROBID) 00 the Medical 100 mg morning Branch capsule and 1 capsule in the evening. Nitrofurant 0 Yes [id number] 100mg Take 1 [facility] oin&Nit. 8-19 capsule by ity o f Macrocryst 00:00: mouth in [place] ([place]CROBID) 00 the Medical 100 mg morning Branch capsule and 1 capsule in the evening. Nitrofurant 0 Yes [id number] 100mg Take 1 [facility] oin&Nit. 8-19 capsule by ity o f Macrocryst 00:00: mouth in [place] ([place]CROB[place]) 00 the Medical 100 mg morning Branch capsule and 1 capsule in the evening. Nitrofurant 2021-0 Yes [id number] 100mg Take 1 [facility] oin&Nit. 8-19 capsule by ity o f Macrocryst 00:00: mouth in [place] ([place]CROB[place]) 00 the Medical 100 mg morning Branch capsule and 1 capsule in the evening. Nitrofurant 2021-0 Yes [id number] 100mg Take 1 [facility] oin&Nit. 8-19 capsule by ity o f Macrocryst 00:00: mouth in [place] ([place]CROB[place]) 00 the Medical 100 mg morning Branch capsule and 1 capsule in the evening. Nitrofurant 2021-0 Yes [id number] 100mg Take 1 [facility] oin&Nit. 8-19 capsule by ity o f Macrocryst 00:00: mouth in [place] ([place]CROBID) 00 the Medical 100 mg morning Branch capsule and 1 capsule in the evening. Nitrofurant Yes [id number] 100mg Take 1 [facility] oin&Nit. 8-19 capsule by ity o f Macrocryst 00:00: mouth in [place] ([place]CROBID) 00 the Medical 100 mg morning Branch capsule and 1 capsule in the evening. Nitrofurant Yes [id number] 100mg Take 1 [facility] oin&Nit. 8-19 capsule by ity o f Macrocryst 00:00: mouth in [place] (MACROBID) 00 the Medical 100 mg morning Branch capsule and 1 capsule in the evening. Nitrofurant Yes [id number] 100mg Take 1 [facility] oin&Nit. 8-19 capsule by ity o f Macrocryst 00:00: mouth in [place] ([place]CROB[place]) 00 the Medical 100 mg morning Branch capsule and 1 capsule in the evening. Nitrofurant Yes [id number] 100mg Take 1 [facility] oin&Nit. 8-19 capsule by ity o f Macrocryst 00:00: mouth in [place] ([place]CROB[place]) 00 the Medical 100 mg morning Branch capsule and 1 capsule in the evening. Nitrofurant Yes [id number] 100mg Take 1 [facility] oin&Nit. 8-19 capsule by ity o f Macrocryst 00:00: mouth in [place] ([place]CROBID) 00 the Medical 100 mg morning Branch capsule and 1 capsule in the evening. Nitrofurant Yes [id number] 100mg Take 1 [facility] oin&Nit. 8-19 capsule by ity o f Macrocryst 00:00: mouth in [place] (MACROBID) 00 the Medical 100 mg morning Branch capsule and 1 capsule in the evening. Insulin Yes [id number] Use as [facility] ers [place], 8-10 directed ity of Disposable, 00:00: [place] (NOVOFINE 00 Medical 32) 32 Branch gauge x 1/4" Ndle Insulin Yes [id number] Use as Univ ers [place], 8-10 directed ity of Disposable, 00:00: [place] (NOVOFINE 00 Medical 32) 32 Branch gauge x 1/4" Ndle Insulin 2022-0 Yes [id number] Use as Univ ers [place], 8-10 directed ity of Disposable, 00:00: [place] (NOVOFINE [place] [address]) 32 Branch gauge x 1/4" Ndle Insulin 202-0 Yes [id number] Use as Univ ers [place], 8-10 directed ity of Disposable, 00:00: [place] (NOVOFINE [place] [address]) 32 Branch gauge x 1/4" Ndle Insulin 202-0 Yes [id number] Use as Univ ers [place], 8-10 directed ity of Disposable, 00:00: [place] (NOVOFINE [place] [address]) 32 Branch gauge x 1/4" Ndle Insulin 202-0 Yes [id number] Use as Univ ers [place], 8-10 directed ity of Disposable, 00:00: [place] (NOVOFINE [place] [address]) 32 Branch gauge x 1/4" Ndle Insulin 2021-0 Yes [id number] Use as Univ ers [place], 8-10 directed ity of Disposable, 00:00: [place] (NOVOFINE [place] [address]) 32 Branch gauge x 1/4" Ndle Insulin 2021-0 Yes [id number] Use as [facility] ers [place], 8-10 directed ity of Disposable, 00:00: [place] (NOVOFINE [place] [address]) 32 Branch gauge x 1/4" Ndle Insulin 202-0 Yes [id number] Use as [facility] ers [place], 8-10 directed ity of Disposable, 00:00: [place] (NOVOFINE [place] [address]) 32 Branch gauge x 1/4" Ndle Insulin 202-0 Yes [id number] Use as [facility] ers [place], 8-10 directed ity of Disposable, 00:00: [place] (NOVOFINE [place] [address]) 32 Branch gauge x 1/4" Ndle Insulin 202-0 Yes [id number] Use as [facility] ers [place], 8-10 directed ity of Disposable, 00:00: [place] (NOVOFINE [place] [address]) 32 Branch gauge x 1/4" Ndle Insulin 202-0 Yes [id number] Use as [facility] ers [place], 8-10 directed ity of Disposable, 00:00: [place] (NOVOFINE [place] [address]) 32 Branch gauge x 1/4" Ndle Insulin 202-0 Yes [id number] Use as [facility] ers [place], 8-10 directed ity of Disposable, 00:00: [place] (NOVOFINE [place] [address]) 32 Branch gauge x 1/4" Ndle Insulin 2022-0 Yes [id number] Use as [facility] ers [place], 8-10 directed ity of Disposable, 00:00: [place] (NOVOFINE [place] [address]) 32 Branch gauge x 1/4" Ndle Insulin 2022-0 Yes [id number] Use as [facility] ers [place], 8-10 directed ity of Disposable, 00:00: [place] (NOVOFINE [place] [address]) 32 Branch gauge x 1/4" Ndle Insulin 2022-0 Yes [id number] Use as [facility] ers [place], 8-10 directed ity of Disposable, 00:00: [place] (NOVOFINE [place] [address]) 32 Branch gauge x 1/4" Ndle Insulin 202-0 Yes [id number] Use as [facility] ers [place], 8-10 directed ity of Disposable, 00:00: [place] (NOVOFINE [place] [address]) 32 Branch gauge x 1/4" Ndle Insulin 2022-0 Yes [id number] Use as [facility] ers [place], 8-10 directed ity of Disposable, 00:00: [place] (NOVOFINE [place] [address]) 32 Branch gauge x 1/4" Ndle Insulin 2022-0 Yes [id number] Use as Univ ers [place], 8-10 directed ity of Disposable, 00:00: [place] (NOVOFINE [place] [address]) 32 Branch gauge x 1/4" Ndle Insulin 2022-0 Yes [id number] Use as [facility] ers [place], 8-10 directed ity of Disposable, 00:00: [place] (NOVOFINE [place] [address]) 32 Branch gauge x 1/4" Ndle Insulin 2022-0 Yes [id number] Use as [facility] ers [place], 8-10 directed ity of Disposable, 00:00: [place] (NOVOFINE [place] [address]) 32 Branch gauge x 1/4" Ndle Insulin 2022-0 Yes [id number] Use as [facility] ers [place], 8-10 directed ity of Disposable, 00:00: [place] (NOVOFINE [place] [address]) 32 Branch gauge x 1/4" Ndle Insulin 2022-0 Yes [id number] Use as [facility] ers [place], 8-10 directed ity of Disposable, 00:00: [place] (NOVOFINE [place] [address]) 32 Branch gauge x 1/4" Ndle Insulin 2022-0 Yes [id number] Use as [facility] ers [place], 8-10 directed ity of Disposable, 00:00: [place] (NOVOFINE 00 [place] [address]) 32 Branch gauge x 1/4" Ndle Insulin 2021-0 Yes [id number] Use as [facility] ers [place], 8-10 directed ity of Disposable, 00:00: [place] (NOVOFINE 00 [place] [address]) 32 Branch gauge x 1/4" Ndle Insulin 2021-0 Yes [id number] Use as [facility] ers [place], 8-10 directed ity of Disposable, 00:00: [place] (NOVOFINE [place] [address]) 32 Branch gauge x 1/4" Ndle Insulin 2021-0 Yes [id number] Use as Univ ers [place], 8-10 directed ity of Disposable, 00:00: [place] (NOVOFINE [place] [address]) 32 Branch gauge x 1/4" Ndle Insulin 2021-0 Yes [id number] Use as Univ ers [place], 8-10 directed ity of Disposable, 00:00: [place] (NOVOFINE [place] [address]) 32 Branch gauge x 1/4" Ndle Insulin 2021-0 Yes [id number] Use as Univ ers [place], 8-10 directed ity of Disposable, 00:00: [place] (NOVOFINE [place] [address]) 32 Branch gauge x 1/4" Ndle LORazepam 2021- No [id number] 1mg Take 1 U nivers (ATIVAN) 1 01-15-10 tablet by ity of mg tablet 00:00: 00:00 mouth 2 [place] 00 :00 (two) Medical times Branch daily as needed for Anxiety or Agitation. LORazepam 2021- No [id number] 1mg Take 1 [facility] nivers (ATIVAN) 1 01-15-10 tablet by ity of mg tablet 00:00: 00:00 mouth 2 [place] 00 :00 (two) Medical times Branch daily as needed for Anxiety or Agitation. famotidine 2021- No [id number] 40mg Take 1 [facility] (PEPCID) 40 01-08 tablet by it y of mg tablet 00:00: 00:00 mouth in [place] 00 :00 the Medical morning. Branch famotidine 2021- No [id number] 40mg Take 1 [facility] (PEPCID) 40 01-08 tablet by it y of mg tablet 00:00: 00:00 mouth in [place] 00 :00 the Medical morning. Branch lamoTRIgine 2021-0 Yes [id number] 200mg Take 2 [facility] 100 mg 6-17 tablets by ity of tablet 00:00: mouth [place] 00 daily. Medical Branch prazosin 1 2021-0 Yes [id number] 1mg Take 1 U nivers mg capsule 6-17 capsule by ity of 00:00: mouth at [place] [address] bedtime. Medical Branch lamoTRIgine 2021-0 Yes [id number] 200mg Take 2 [facility] 100 mg 6-17 tablets by ity of tablet 00:00: mouth [place] 00 daily. Medical Branch prazosin 1 2021-0 Yes [id number] 1mg Take 1 U nivers mg capsule 6-17 capsule by ity of 00:00: mouth at [place] [address] bedtime. Medical Branch lamoTRIgine 2021-0 Yes [id number] 200mg Take 2 [facility] 100 mg 6-17 tablets by ity of tablet 00:00: mouth [place] 00 daily. Medical Branch prazosin 1 2021-0 Yes [id number] 1mg Take 1 U nivers mg capsule 6-17 capsule by ity of 00:00: mouth at [place] [address] bedtime. Medical Branch lamoTRIgine 2021-0 Yes [id number] 200mg Take 2 [facility] 100 mg 6-17 tablets by ity of tablet 00:00: mouth [place] 00 daily. Medical Branch prazosin 1 2021-0 Yes [id number] 1mg Take 1 U nivers mg capsule 6-17 capsule by ity of 00:00: mouth at [place] [address] bedtime. Medical Branch lamoTRIgine 2021-0 Yes [id number] 200mg Take 2 [facility] 100 mg 6-17 tablets by ity of tablet 00:00: mouth [place] 00 daily. Medical Branch prazosin 1 2021-0 Yes [id number] 1mg Take 1 U nivers mg capsule 6-17 capsule by ity of 00:00: mouth at [place] [address] bedtime. Medical Branch lamoTRIgine 2021-0 Yes [id number] 200mg Take 2 [facility] 100 mg 6-17 tablets by ity of tablet 00:00: mouth [place] 00 daily. Medical Branch prazosin 1 2021-0 Yes [id number] 1mg Take 1 U nivers mg capsule 6-17 capsule by ity of 00:00: mouth at [place] 00 bedtime. Medical Branch lamoTRIgine 2021- No [id number] 200mg Take 2 [facility] 100 mg 6-17 10-10 tablets by ity of tablet 00:00: 00:00 mouth [place] 00 :00 daily. Medical Branch prazosin 1 2021- No [id number] 1mg Take 1 [facility] mg capsule 6-17 10-10 capsule by it y of 00:00: 00:00 mouth at [place] 00 :00 bedtime. Medical Branch hydrOXYzine 2021- No [id number] 25mg Take 1 [facility] 25 mg 6-17 08-19 tablet by ity of tablet 00:00: 00:00 mouth at [place] 00 :00 bedtime as Medical needed for Branch Anxiety or Other (insomnia) . hydrOXYzine 2021- No [id number] 25mg Take 1 [facility] 25 mg 6-17 08-19 tablet by ity of tablet 00:00: 00:00 mouth at [place] 00 :00 bedtime as Medical needed for Branch Anxiety or Other (insomnia) . metoprolol Yes [id number] 50mg Take 1 U nivers succinate 5-06 tablet by ity o f XL 50 mg 24 00:00: mouth [place] hr tablet 00 daily. Medical Branch metoprolol Yes [id number] 50mg Take 1 U nivers succinate 5-06 tablet by ity o f XL 50 mg 24 00:00: mouth [place] hr tablet 00 daily. Medical Branch metoprolol Yes [id number] 50mg Take 1 U nivers succinate 5-06 tablet by ity o f XL 50 mg 24 00:00: mouth [place] hr tablet 00 daily. Medical Branch metoprolol Yes [id number] 50mg Take 1 U nivers succinate 5-06 tablet by ity o f XL 50 mg 24 00:00: mouth [place] hr tablet 00 daily. Medical Branch metoprolol Yes [id number] 50mg Take 1 U nivers succinate 5-06 tablet by ity o f XL 50 mg 24 00:00: mouth [place] hr tablet 00 daily. Medical Branch metoprolol Yes [id number] 50mg Take 1 U nivers succinate 5-06 tablet by ity o f XL 50 mg 24 00:00: mouth [place] hr tablet 00 daily. Medical Branch metoprolol Yes [id number] 50mg Take 1 U nivers succinate 5-06 tablet by ity o f XL 50 mg 24 00:00: mouth [place] hr tablet 00 daily. Medical Branch metoprolol Yes [id number] 50mg Take 1 U nivers succinate 5-06 tablet by ity o f XL 50 mg 24 00:00: mouth [place] hr tablet 00 daily. Medical Branch metoprolol Yes [id number] 50mg Take 1 U nivers succinate 5-06 tablet by ity o f XL 50 mg 24 00:00: mouth [place] hr tablet 00 daily. Medical Branch metoprolol Yes [id number] 50mg Take 1 U nivers succinate 5-06 tablet by ity o f XL 50 mg 24 00:00: mouth [place] hr tablet 00 daily. Medical Branch metoprolol Yes [id number] 50mg Take 1 U nivers succinate 5-06 tablet by ity o f XL 50 mg 24 00:00: mouth [place] hr tablet 00 daily. Medical Branch metoprolol Yes [id number] 50mg Take 1 U nivers succinate 5-06 tablet by ity o f XL 50 mg 24 00:00: mouth [place] hr tablet 00 daily. Medical Branch metoprolol Yes [id number] 50mg Take 1 U nivers succinate 5-06 tablet by ity o f XL 50 mg 24 00:00: mouth [place] hr tablet 00 daily. Medical Branch metoprolol Yes [id number] 50mg Take 1 U nivers succinate 5-06 tablet by ity o f XL 50 mg 24 00:00: mouth [place] hr tablet 00 daily. Medical Branch metoprolol Yes [id number] 50mg Take 1 U nivers succinate 5-06 tablet by ity o f XL 50 mg 24 00:00: mouth [place] hr tablet 00 daily. Medical Branch metoprolol Yes [id number] 50mg Take 1 U nivers succinate 5-06 tablet by ity o f XL 50 mg 24 00:00: mouth [place] hr tablet 00 daily. [facility] metoprolol Yes [id number] 50mg Take 1 U nivers succinate 5-06 tablet by ity o f XL 50 mg 24 00:00: mouth [place] hr tablet 00 daily. [facility] metoprolol Yes [id number] 50mg Take 1 U nivers succinate 5-06 tablet by ity o f XL 50 mg 24 00:00: mouth [place] hr tablet 00 daily. [facility] metoprolol Yes [id number] 50mg Take 1 U nivers succinate 5-06 tablet by ity o f XL 50 mg 24 00:00: mouth [place] hr tablet 00 daily. [facility] metoprolol Yes [id number] 50mg Take 1 U nivers succinate 5-06 tablet by ity o f XL 50 mg 24 00:00: mouth [place] hr tablet 00 daily. [facility] metoprolol Yes [id number] 50mg Take 1 U nivers succinate 5-06 tablet by ity o f XL 50 mg 24 00:00: mouth [place] hr tablet 00 daily. [facility] metoprolol Yes [id number] 50mg Take 1 U nivers succinate 5-06 tablet by ity o f XL 50 mg 24 00:00: mouth [place] hr tablet 00 daily. [facility] metoprolol Yes [id number] 50mg Take 1 U nivers succinate 5-06 tablet by ity o f XL 50 mg 24 00:00: mouth [place] hr tablet 00 daily. [facility] metoprolol Yes [id number] 50mg Take 1 U nivers succinate 5-06 tablet by ity o f XL 50 mg 24 00:00: mouth [place] hr tablet 00 daily. [facility] metoprolol Yes [id number] 50mg Take 1 U nivers succinate 5-06 tablet by ity o f XL 50 mg 24 00:00: mouth [place] hr tablet 00 daily. [facility] metoprolol Yes [id number] 50mg Take 1 U nivers succinate 5-06 tablet by ity o f XL 50 mg 24 00:00: mouth [place] hr tablet 00 daily. [facility] metoprolol Yes [id number] 50mg Take 1 U nivers succinate 5-06 tablet by ity o f XL 50 mg 24 00:00: mouth [place] hr tablet 00 daily. [facility] metoprolol Yes [id number] 50mg Take 1 U nivers succinate 5-06 tablet by ity o f XL 50 mg 24 00:00: mouth [place] hr tablet 00 daily. [facility] metoprolol Yes [id number] 50mg Take 1 U nivers succinate 5-06 tablet by ity o f XL 50 mg 24 00:00: mouth [place] hr tablet 00 daily. [facility] Insulin Yes [id number] Use to Uni vers Syringe-Nee 3-02 inject ity of dle U-100 1 00:00: insulin 4X [place] mL 31 gauge 00 daily. Medica l x 5/16 Syrg DX:[id number] [facility] Insulin Yes [id number] Use to Uni vers Syringe-Nee 3-02 inject ity of dle U-100 1 00:00: insulin 4X [place] mL 31 gauge 00 daily. Medica l x 5/16 Syrg DX:[id number] [facility] Insulin Yes [id number] Use to Uni vers Syringe-Nee 3-02 inject ity of dle U-100 1 00:00: insulin 4X [place] mL 31 gauge 00 daily. Medica l x 5/16 Syrg DX:[id number] [facility] Insulin Yes [id number] Use to Uni vers Syringe-Nee 3-02 inject ity of dle U-100 1 00:00: insulin 4X [place] mL 31 gauge 00 daily. Medica l x 5/16 Syrg DX:[id number] [facility] Insulin Yes [id number] Use to Uni vers Syringe-Nee 3-02 inject ity of dle U-100 1 00:00: insulin 4X [place] mL 31 gauge 00 daily. Medica l x 5/16 Syrg DX:[id number] [facility] Insulin Yes [id number] Use to Uni vers Syringe-Nee 3-02 inject ity of dle U-100 1 00:00: insulin 4X [place] mL 31 gauge 00 daily. Medica l x 5/16 Syrg DX:[id number] [facility] Insulin Yes [id number] Use to Uni vers Syringe-Nee 3-02 inject ity of dle U-100 1 00:00: insulin 4X [place] mL 31 gauge 00 daily. Medica l x 5/16 Syrg DX:[id number] [facility] Insulin Yes [id number] Use to Uni vers Syringe-Nee 3-02 inject ity of dle U-100 1 00:00: insulin 4X [place] mL 31 gauge 00 daily. Medica l x 5/16 Syrg DX:[id number] [facility] Insulin Yes [id number] Use to Uni vers Syringe-Nee 3-02 inject ity of dle U-100 1 00:00: insulin 4X [place] mL 31 gauge 00 daily. Medica l x 5/16 Syrg DX:K86.89 [facility] Insulin Yes [id number] Use to Uni vers Syringe-Nee 3-02 inject ity of dle U-100 1 00:00: insulin 4X [place] mL 31 gauge 00 daily. Medica l x 5/16 Syrg DX:K86.89 [facility] Insulin Yes [id number] Use to Uni vers Syringe-Nee 3-02 inject ity of dle U-100 1 00:00: insulin 4X [place] mL 31 gauge 00 daily. Medica l x 5/16 Syrg DX:K86.89 [facility] Insulin Yes [id number] Use to Uni vers Syringe-Nee 3-02 inject ity of dle U-100 1 00:00: insulin 4X [place] mL 31 gauge 00 daily. Medica l x 5/16 Syrg DX:K86.89 [facility] Insulin Yes [id number] Use to Uni vers Syringe-Nee 3-02 inject ity of dle U-100 1 00:00: insulin 4X [place] mL 31 gauge 00 daily. Medica l x 5/16 Syrg DX:K86.89 [facility] Insulin Yes [id number] Use to Uni vers Syringe-Nee 3-02 inject ity of dle U-100 1 00:00: insulin 4X [place] mL 31 gauge 00 daily. Medica l x 5/16 Syrg DX:[id number] [facility] Insulin 0 Yes [id number] Use to Uni vers Syringe-Nee 3-02 inject ity of dle U-100 1 00:00: insulin 4X [place] mL 31 gauge 00 daily. Medica l x 5/16 Syrg DX:[id number] [facility] Insulin 0 Yes [id number] Use to Uni vers Syringe-Nee 3-02 inject ity of dle U-100 1 00:00: insulin 4X [place] mL 31 gauge 00 daily. Medica l x 516 Syrg DX:[id number] [facility] Insulin Yes [id number] Use to Uni vers Syringe-Nee 3-02 inject ity of dle U-100 1 00:00: insulin 4X [place] mL 31 gauge 00 daily. Medica l x 516 Syrg DX:[id number] [facility] Insulin Yes [id number] Use to Uni vers Syringe-Nee 3-02 inject ity of dle U-100 1 00:00: insulin 4X [place] mL 31 gauge 00 daily. Medica l x 516 Syrg DX:[id number] [facility] Insulin Yes [id number] Use to Uni vers Syringe-Nee 3-02 inject ity of dle U-100 1 00:00: insulin 4X [place] mL 31 gauge 00 daily. Medica l x 516 Syrg DX:K86.89 [facility] Insulin Yes [id number] Use to Uni vers Syringe-Nee 3-02 inject ity of dle U-100 1 00:00: insulin 4X [place] mL 31 gauge 00 daily. Medica l x 16 Syrg DX:[id number] [facility] Insulin 2021- No [id number] Use to Un kendra Syringe-Nee 3-07 19-23 inject ity o f dle U-100 1 00:00: 00:00 insulin 4X [place] mL 31 gauge 00 :00 daily. Medica l x 516 Syrg DX:[id number] [facility] insulin Yes [id number] 160 to Uni vers aspart 2-09 200, 1 u, ity of U-100 00:00: 201 to [place] (NOVOLOG 00 240, 2 u. Medica l FLEXPEN BG 241 to Branch U-100 280, 3 INSULIN) unit. BG 100 unit/mL 281 to (3 mL) 300, 4 injection units. BG > 300, 5 units, recheck in 3 hours and cover with s/s insulin Yes [id number] inject 20 [facility] glargine 2-09 Units ity of (LANTUS 00:00: under the [place] U-100 00 skin twice Medical INSULIN) a day. Branch 100 unit/mL injection insulin 2021-0 Yes [id number] 160 to Uni vers aspart 2-09 200, 1 u, ity of U-100 00:00: 201 to [place] (NOVOLOG 00 240, 2 u. Medica l FLEXPEN BG 241 to Branch U-100 280, 3 INSULIN) unit. BG 100 unit/mL 281 to (3 mL) 300, 4 injection units. BG > 300, 5 units, recheck in 3 hours and cover with s/s insulin 202-0 Yes [id number] inject 20 [facility] glargine 2-09 Units ity of (LANTUS 00:00: under the [place] U-100 00 skin twice Medical INSULIN) a day. Branch 100 unit/mL injection insulin 0 Yes [id number] 160 to Uni vers aspart 2-09 200, 1 u, ity of U-100 00:00: 201 to [place] (NOVOLOG 00 240, 2 u. Medica l FLEXPEN BG 241 to Branch U-100 280, 3 INSULIN) unit. BG 100 unit/mL 281 to (3 mL) 300, 4 injection units. BG > 300, 5 units, recheck in 3 hours and cover with s/s insulin 2021-0 Yes [id number] inject 20 [facility] glargine 2-09 Units ity of (LANTUS 00:00: under the [place] U-100 00 skin twice Medical INSULIN) a day. Branch 100 unit/mL injection insulin 2021-0 Yes [id number] 160 to Uni vers aspart 2-09 200, 1 u, ity of U-100 00:00: 201 to [place] (NOVOLOG 00 240, 2 u. Medica l FLEXPEN BG 241 to Branch U-100 280, 3 INSULIN) unit. BG 100 unit/mL 281 to (3 mL) 300, 4 injection units. BG > 300, 5 units, recheck in 3 hours and cover with s/s insulin 2021-0 Yes [id number] inject 20 [facility] glargine 2-09 Units ity of (LANTUS 00:00: under the [place] U-100 00 skin twice Medical INSULIN) a day. Branch 100 unit/mL injection insulin 2021-0 Yes [id number] 160 to Uni vers aspart 2-09 200, 1 u, ity of U-100 00:00: 201 to [place] (NOVOLOG 00 240, 2 u. Medica l FLEXPEN BG 241 to Branch U-100 280, 3 INSULIN) unit. BG 100 unit/mL 281 to (3 mL) 300, 4 injection units. BG > 300, 5 units, recheck in 3 hours and cover with s/s insulin 0 Yes [id number] inject 20 [facility] glargine 2-09 Units ity of (LANTUS 00:00: under the [place] U-100 00 skin twice Medical INSULIN) a day. Branch 100 unit/mL injection insulin Yes [id number] 160 to Uni vers aspart 2-09 200, 1 u, ity of U-100 00:00: 201 to [place] (NOVOLOG 00 240, 2 u. Medica l FLEXPEN BG 241 to Branch U-100 280, 3 INSULIN) unit. BG 100 unit/mL 281 to (3 mL) 300, 4 injection units. BG > 300, 5 units, recheck in 3 hours and cover with s/s insulin Yes [id number] inject 20 [facility] glargine 2-09 Units ity of (LANTUS 00:00: under the [place] U-100 00 skin twice Medical INSULIN) a day. Branch 100 unit/mL injection insulin Yes [id number] 160 to Uni vers aspart 2-09 200, 1 u, ity of U-100 00:00: 201 to [place] (NOVOLOG 00 240, 2 u. Medica l FLEXPEN BG 241 to Branch U-100 280, 3 INSULIN) unit. BG 100 unit/mL 281 to (3 mL) 300, 4 injection units. BG > 300, 5 units, recheck in 3 hours and cover with s/s insulin Yes [id number] inject 20 [facility] glargine 2-09 Units ity of (LANTUS 00:00: under the [place] U-100 00 skin twice Medical INSULIN) a day. Branch 100 unit/mL injection insulin Yes [id number] 160 to Uni vers aspart 2-09 200, 1 u, ity of U-100 00:00: 201 to [place] (NOVOLOG 00 240, 2 u. Medica l FLEXPEN BG 241 to Branch U-100 280, 3 INSULIN) unit. BG 100 unit/mL 281 to (3 mL) 300, 4 injection units. BG > 300, 5 units, recheck in 3 hours and cover with s/s insulin 0 Yes [id number] inject 20 [facility] glargine 2-09 Units ity of (LANTUS 00:00: under the [place] U-100 00 skin twice Medical INSULIN) a day. Branch 100 unit/mL injection insulin Yes [id number] 160 to Uni vers aspart 2-09 200, 1 u, ity of U-100 00:00: 201 to [place] (NOVOLOG 00 240, 2 u. Medica l FLEXPEN BG 241 to Branch U-100 280, 3 INSULIN) unit. BG 100 unit/mL 281 to (3 mL) 300, 4 injection units. BG > 300, 5 units, recheck in 3 hours and cover with s/s insulin Yes [id number] inject 20 [facility] glargine 2-09 Units ity of (LANTUS 00:00: under the [place] U-100 00 skin twice Medical INSULIN) a day. Branch 100 unit/mL injection insulin Yes [id number] 160 to Uni vers aspart 2-09 200, 1 u, ity of U-100 00:00: 201 to [place] (NOVOLOG 00 240, 2 u. Medica l FLEXPEN BG 241 to Branch U-100 280, 3 INSULIN) unit. BG 100 unit/mL 281 to (3 mL) 300, 4 injection units. BG > 300, 5 units, recheck in 3 hours and cover with s/s insulin Yes [id number] inject 20 [facility] glargine 2-09 Units ity of (LANTUS 00:00: under the [place] U-100 00 skin twice Medical INSULIN) a day. Branch 100 unit/mL injection insulin Yes [id number] 160 to Uni vers aspart 2-09 200, 1 u, ity of U-100 00:00: 201 to [place] (NOVOLOG 00 240, 2 u. Medica l FLEXPEN BG 241 to Branch U-100 280, 3 INSULIN) unit. BG 100 unit/mL 281 to (3 mL) 300, 4 injection units. BG > 300, 5 units, recheck in 3 hours and cover with s/s insulin 0 Yes [id number] inject 20 [facility] glargine 2-09 Units ity of (LANTUS 00:00: under the [place] U-100 00 skin twice Medical INSULIN) a day. Branch 100 unit/mL injection insulin 2021-0 Yes [id number] 160 to Uni vers aspart 2-09 200, 1 u, ity of U-100 00:00: 201 to [place] (NOVOLOG 00 240, 2 u. Medica l FLEXPEN BG 241 to Branch U-100 280, 3 INSULIN) unit. BG 100 unit/mL 281 to (3 mL) 300, 4 injection units. BG > 300, 5 units, recheck in 3 hours and cover with s/s insulin 2021-0 Yes [id number] inject 20 [facility] glargine 2-09 Units ity of (LANTUS 00:00: under the [place] U-100 00 skin twice Medical INSULIN) a day. Branch 100 unit/mL injection insulin 0 Yes [id number] 160 to Uni vers aspart 2-09 200, 1 u, ity of U-100 00:00: 201 to [place] (NOVOLOG 00 240, 2 u. Medica l FLEXPEN BG 241 to Branch U-100 280, 3 INSULIN) unit. BG 100 unit/mL 281 to (3 mL) 300, 4 injection units. BG > 300, 5 units, recheck in 3 hours and cover with s/s insulin 2021-0 Yes [id number] 160 to Uni vers aspart 2-09 200, 1 u, ity of U-100 00:00: 201 to [place] (NOVOLOG 00 240, 2 u. Medica l FLEXPEN BG 241 to Branch U-100 280, 3 INSULIN) unit. BG 100 unit/mL 281 to (3 mL) 300, 4 injection units. BG > 300, 5 units, recheck in 3 hours and cover with s/s insulin 2021-0 Yes [id number] 160 to Uni vers aspart 2-09 200, 1 u, ity of U-100 00:00: 201 to [place] (NOVOLOG 00 240, 2 u. Medica l FLEXPEN BG 241 to Branch U-100 280, 3 INSULIN) unit. BG 100 unit/mL 281 to (3 mL) 300, 4 injection units. BG > 300, 5 units, recheck in 3 hours and cover with s/s insulin 2021-0 Yes [id number] 160 to Uni vers aspart 2-09 200, 1 u, ity of U-100 00:00: 201 to [place] (NOVOLOG 00 240, 2 u. Medica l FLEXPEN BG 241 to Branch U-100 280, 3 INSULIN) unit. BG 100 unit/mL 281 to (3 mL) 300, 4 injection units. BG > 300, 5 units, recheck in 3 hours and cover with s/s insulin 2022-0 Yes [id number] 160 to Uni vers aspart 2-09 200, 1 u, ity of U-100 00:00: 201 to [place] (NOVOLOG 00 240, 2 u. Medica l FLEXPEN BG 241 to Branch U-100 280, 3 INSULIN) unit. BG 100 unit/mL 281 to (3 mL) 300, 4 injection units. BG > 300, 5 units, recheck in 3 hours and cover with s/s insulin 202-0 Yes [id number] 160 to Uni vers aspart 2-09 200, 1 u, ity of U-100 00:00: 201 to [place] (NOVOLOG 00 240, 2 u. Medica l FLEXPEN BG 241 to Branch U-100 280, 3 INSULIN) unit. BG 100 unit/mL 281 to (3 mL) 300, 4 injection units. BG > 300, 5 units, recheck in 3 hours and cover with s/s insulin 2021-0 Yes [id number] 160 to Uni vers aspart 2-09 200, 1 u, ity of U-100 00:00: 201 to [place] (NOVOLOG 00 240, 2 u. Medica l FLEXPEN BG 241 to Branch U-100 280, 3 INSULIN) unit. BG 100 unit/mL 281 to (3 mL) 300, 4 injection units. BG > 300, 5 units, recheck in 3 hours and cover with s/s insulin 2022-0 Yes [id number] 160 to Uni vers aspart 2-09 200, 1 u, ity of U-100 00:00: 201 to [place] (NOVOLOG 00 240, 2 u. Medica l FLEXPEN BG 241 to Branch U-100 280, 3 INSULIN) unit. BG 100 unit/mL 281 to (3 mL) 300, 4 injection units. BG > 300, 5 units, recheck in 3 hours and cover with s/s insulin 2022-0 Yes [id number] 160 to Uni vers aspart 2-09 200, 1 u, ity of U-100 00:00: 201 to [place] (NOVOLOG 00 240, 2 u. Medica l FLEXPEN BG 241 to Branch U-100 280, 3 INSULIN) unit. BG 100 unit/mL 281 to (3 mL) 300, 4 injection units. BG > 300, 5 units, recheck in 3 hours and cover with s/s insulin 2022-0 Yes [id number] 160 to Uni vers aspart 2-09 200, 1 u, ity of U-100 00:00: 201 to [place] (NOVOLOG 00 240, 2 u. Medica l FLEXPEN BG 241 to Branch U-100 280, 3 INSULIN) unit. BG 100 unit/mL 281 to (3 mL) 300, 4 injection units. BG > 300, 5 units, recheck in 3 hours and cover with s/s insulin 2022-0 Yes [id number] 160 to Uni vers aspart 2-09 200, 1 u, ity of U-100 00:00: 201 to [place] (NOVOLOG 00 240, 2 u. Medica l FLEXPEN BG 241 to Branch U-100 280, 3 INSULIN) unit. BG 100 unit/mL 281 to (3 mL) 300, 4 injection units. BG > 300, 5 units, recheck in 3 hours and cover with s/s insulin 2022-0 Yes [id number] 160 to Uni vers aspart 2-09 200, 1 u, ity of U-100 00:00: 201 to [place] (NOVOLOG 00 240, 2 u. Medica l FLEXPEN BG 241 to Branch U-100 280, 3 INSULIN) unit. BG 100 unit/mL 281 to (3 mL) 300, 4 injection units. BG > 300, 5 units, recheck in 3 hours and cover with s/s insulin 2022-0 Yes [id number] 160 to Uni vers aspart 2-09 200, 1 u, ity of U-100 00:00: 201 to [place] (NOVOLOG 00 240, 2 u. Medica l FLEXPEN BG 241 to Branch U-100 280, 3 INSULIN) unit. BG 100 unit/mL 281 to (3 mL) 300, 4 injection units. BG > 300, 5 units, recheck in 3 hours and cover with s/s insulin 2022-0 Yes [id number] 160 to Uni vers aspart 2-09 200, 1 u, ity of U-100 00:00: 201 to [place] (NOVOLOG 00 240, 2 u. Medica l FLEXPEN BG 241 to Branch U-100 280, 3 INSULIN) unit. BG 100 unit/mL 281 to (3 mL) 300, 4 injection units. BG > 300, 5 units, recheck in 3 hours and cover with s/s insulin Yes [id number] 160 to Uni vers aspart 2-09 200, 1 u, ity of U-100 00:00: 201 to [place] (NOVOLOG 00 240, 2 u. Medica l FLEXPEN BG 241 to Branch U-100 280, 3 INSULIN) unit. BG 100 unit/mL 281 to (3 mL) 300, 4 injection units. BG > 300, 5 units, recheck in 3 hours and cover with s/s insulin Yes [id number] 160 to Uni vers aspart 2-09 200, 1 u, ity of U-100 00:00: 201 to [place] (NOVOLOG 00 240, 2 u. Medica l FLEXPEN BG 241 to Branch U-100 280, 3 INSULIN) unit. BG 100 unit/mL 281 to (3 mL) 300, 4 injection units. BG > 300, 5 units, recheck in 3 hours and cover with s/s insulin Yes [id number] 160 to Uni vers aspart 2-09 200, 1 u, ity of U-100 00:00: 201 to [place] (NOVOLOG 00 240, 2 u. Medica l FLEXPEN BG 241 to Branch U-100 280, 3 INSULIN) unit. BG 100 unit/mL 281 to (3 mL) 300, 4 injection units. BG > 300, 5 units, recheck in 3 hours and cover with s/s insulin 2021- No [id number] inject 20 [facility] glargine 07-17 10-25 Units ity of ([place] 00:00: 00:00 [place] U-100 00 :00 skin twice Medical INSULIN) a day. Branch 100 unit/mL injection insulin 2021- No [id number] inject 20 [facility] glargine 07-17 10-25 Units ity of ([place] 00:00: 00:00 [place] U-100 00 :00 skin twice Medical INSULIN) a day. Branch 100 unit/mL injection lipase-prot Yes [id number] 1{capsu Take 1 [facility] ease-amylas 2-03 le} capsule by it y of e (CREON) 00:00: mouth 3 [place] 36,000-114, 00 (three) Medic al 000- times Branch 180,000 daily with unit CpDR meals. lipase-prot Yes [id number] 1{capsu Take 1 [facility] ease-amylas 2-03 le} capsule by it y of e (CREON) 00:00: mouth 3 [place] 36,000-114, 00 (three) Medic al 000- times Branch 180,000 daily with unit CpDR meals. lipase-prot Yes [id number] 1{capsu Take 1 [facility] ease-amylas 2-03 le} capsule by it y of e (CREON) 00:00: mouth 3 [place] 36,000-114, 00 (three) Medic al 000- times Branch 180,000 daily with unit CpDR meals. lipase-prot Yes [id number] 1{capsu Take 1 [facility] ease-amylas 2-03 le} capsule by it y of e (CREON) 00:00: mouth 3 [place] 36,000-114, 00 (three) Medic al 000- times Branch 180,000 daily with unit CpDR meals. lipase-prot Yes [id number] 1{capsu Take 1 [facility] ease-amylas 2-03 le} capsule by it y of e (CREON) 00:00: mouth 3 [place] 36,000-114, 00 (three) Medic al 000- times Branch 180,000 daily with unit CpDR meals. lipase-prot Yes [id number] 1{capsu Take 1 [facility] ease-amylas 2-03 le} capsule by it y of e (CREON) 00:00: mouth 3 [place] 36,000-114, 00 (three) Medic al 000- times Branch 180,000 daily with unit CpDR meals. lipase-prot Yes [id number] 1{capsu Take 1 [facility] ease-amylas 2-03 le} capsule by it y of e (CREON) 00:00: mouth 3 [place] 36,000-114, 00 (three) Medic al 000- times Branch 180,000 daily with unit CpDR meals. lipase-prot Yes [id number] 1{capsu Take 1 [facility] ease-amylas 2-03 le} capsule by it y of e (CREON) 00:00: mouth 3 [place] 36,000-114, 00 (three) Medic al 000- times Branch 180,000 daily with unit CpDR meals. lipase-prot Yes [id number] 1{capsu Take 1 [facility] ease-amylas 2-03 le} capsule by it y of e (CREON) 00:00: mouth 3 [place] 36,000-114, 00 (three) Medic al 000- times Branch 180,000 daily with unit CpDR meals. lipase-prot Yes [id number] 1{capsu Take 1 [facility] ease-amylas 2-03 le} capsule by it y of e (CREON) 00:00: mouth 3 [place] 36,000-114, 00 (three) Medic al 000- times Branch 180,000 daily with unit CpDR meals. lipase-prot Yes [id number] 1{capsu Take 1 [facility] ease-amylas 2-03 le} capsule by it y of e (CREON) 00:00: mouth 3 [place] 36,000-114, 00 (three) Medic al 000- times Branch 180,000 daily with unit CpDR meals. lipase-prot Yes [id number] 1{capsu Take 1 [facility] ease-amylas 2-03 le} capsule by it y of e (CREON) 00:00: mouth 3 [place] 36,000-114, 00 (three) Medic al 000- times Branch 180,000 daily with unit CpDR meals. lipase-prot Yes [id number] 1{capsu Take 1 [facility] ease-amylas 2-03 le} capsule by it y of e (CREON) 00:00: mouth 3 [place] 36,000-114, 00 (three) Medic al 000- times Branch 180,000 daily with unit CpDR meals. lipase-prot Yes [id number] 1{capsu Take 1 [facility] ease-amylas 2-03 le} capsule by it y of e (CREON) 00:00: mouth 3 [place] 36,000-114, 00 (three) Medic al 000- times Branch 180,000 daily with unit CpDR meals. lipase-prot Yes [id number] 1{capsu Take 1 [facility] ease-amylas 2-03 le} capsule by it y of e (CREON) 00:00: mouth 3 [place] 36,000-114, 00 (three) Medic al 000- times Branch 180,000 daily with unit CpDR meals. lipase-prot Yes [id number] 1{capsu Take 1 [facility] ease-amylas 2-03 le} capsule by it y of e (CREON) 00:00: mouth 3 [place] 36,000-114, 00 (three) Medic al 000- times Branch 180,000 daily with unit CpDR meals. lipase-prot Yes [id number] 1{capsu Take 1 [facility] ease-amylas 2-03 le} capsule by it y of e (CREON) 00:00: mouth 3 [place] 36,000-114, 00 (three) Medic al 000- times Branch 180,000 daily with unit CpDR meals. lipase-prot Yes [id number] 1{capsu Take 1 [facility] ease-amylas 2-03 le} capsule by it y of e (CREON) 00:00: mouth 3 [place] 36,000-114, 00 (three) Medic al 000- times Branch 180,000 daily with unit CpDR meals. lipase-prot Yes [id number] 1{capsu Take 1 [facility] ease-amylas 2-03 le} capsule by it y of e (CREON) 00:00: mouth 3 [place] 36,000-114, 00 (three) Medic al 000- times Branch 180,000 daily with unit CpDR meals. lipase-prot Yes [id number] 1{capsu Take 1 [facility] ease-amylas 2-03 le} capsule by it y of e (CREON) 00:00: mouth 3 [place] 36,000-114, 00 (three) Medic al 000- times Branch 180,000 daily with unit CpDR meals. lipase-prot Yes [id number] 1{capsu Take 1 [facility] ease-amylas 2-03 le} capsule by it y of e (CREON) 00:00: mouth 3 [place] 36,000-114, 00 (three) Medic al 000- times Branch 180,000 daily with unit CpDR meals. lipase-prot Yes [id number] 1{capsu Take 1 [facility] ease-amylas 2-03 le} capsule by it y of e (CREON) 00:00: mouth 3 [place] 36,000-114, 00 (three) Medic al 000- times Branch 180,000 daily with unit CpDR meals. lipase-prot Yes [id number] 1{capsu Take 1 [facility] ease-amylas 2-03 le} capsule by it y of e (CREON) 00:00: mouth 3 [place] 36,000-114, 00 (three) Medic al 000- times Branch 180,000 daily with unit CpDR meals. lipase-prot Yes [id number] 1{capsu Take 1 [facility] ease-amylas 2-03 le} capsule by it y of e (CREON) 00:00: mouth 3 [place] 36,000-114, 00 (three) Medic al 000- times Branch 180,000 daily with unit CpDR meals. lipase-prot Yes [id number] 1{capsu Take 1 [facility] ease-amylas 2-03 le} capsule by it y of e (CREON) 00:00: mouth 3 [place] 36,000-114, 00 (three) Medic al 000- times Branch 180,000 daily with unit CpDR meals. lipase-prot Yes [id number] 1{capsu Take 1 [facility] ease-amylas 2-03 le} capsule by it y of e (CREON) 00:00: mouth 3 [place] 36,000-114, 00 (three) Medic al 000- times Branch 180,000 daily with unit CpDR meals. lipase-prot Yes [id number] 1{capsu Take 1 [facility] ease-amylas 2-03 le} capsule by it y of e (CREON) 00:00: mouth 3 [place] 36,000-114, 00 (three) Medic al 000- times Branch 180,000 daily with unit CpDR meals. lipase-prot Yes [id number] 1{capsu Take 1 [facility] ease-amylas 2-03 le} capsule by it y of e (CREON) 00:00: mouth 3 [place] 36,000-114, 00 (three) Medic al 000- times Branch 180,000 daily with unit CpDR meals. lipase-prot 2021-0 Yes [id number] 1{capsu Take 1 [facility] ease-amylas 2-03 le} [...] [facility] 23 l tablet insulin 2020-0 Yes 10U Inject 10 Metho [...] 00 l RUPA 14 DAY SENSOR) kit flash 2020-0 Yes 1{packa QD 1 Package Meth [place] glucose 2-20 ge} daily. st scanning 00:00: [facility] reader 00 l (FREESTYLE RUPA 14 DAY READER) misc flash 2020-0 Yes 6{packa QD 6 Packages [facility] glucose 2-20 ge} daily. st sensor 00:00: Hospita (FREESTYLE 00 l RUPA 14 DAY SENSOR) kit CONTOUR Yes [id number] Use to [facility] ers NEXT TEST 11-05 check ity of STRIPS 00:00: glucose 4X [place] strip 00 daily. Medical DX:E08.65 Branch CONTOUR Yes [id number] Use to [facility] ers NEXT TEST 11-05 check ity of STRIPS 00:00: glucose 4X [place] strip 00 daily. Medical DX:E08.65 Branch CONTOUR Yes [id number] Use to [facility] ers NEXT TEST 11-05 check ity of STRIPS 00:00: glucose 4X [place] strip 00 daily. Medical DX:E08.65 Branch CONTOUR Yes [id number] Use to [facility] ers NEXT TEST 11-05 check ity of STRIPS 00:00: glucose 4X [place] strip 00 daily. Medical DX:E08.65 Branch CONTOUR Yes [id number] Use to [facility] ers NEXT TEST 11-05 check ity of STRIPS 00:00: glucose 4X [place] strip 00 daily. Medical DX:E08.65 Branch CONTOUR Yes [id number] Use to [facility] ers NEXT TEST 11-05 check ity of STRIPS 00:00: glucose 4X [place] strip 00 daily. Medical DX:E08.65 Branch CONTOUR Yes [id number] Use to [facility] ers NEXT TEST 11-05 check ity of STRIPS 00:00: glucose 4X [place] strip 00 daily. Medical DX:E08.65 Branch CONTOUR Yes [id number] Use to [facility] ers NEXT TEST 11-05 check ity of STRIPS 00:00: glucose 4X [place] strip 00 daily. Medical DX:E08.65 Branch CONTOUR Yes [id number] Use to [facility] ers NEXT TEST 11-05 check ity of STRIPS 00:00: glucose 4X [place] strip 00 daily. Medical DX:E08.65 Branch CONTOUR Yes [id number] Use to [facility] ers NEXT TEST 11-05 check ity of STRIPS 00:00: glucose 4X [place] strip 00 daily. Medical DX:E08.65 Branch CONTOUR Yes [id number] Use to [facility] ers NEXT TEST 11-05 check ity of STRIPS 00:00: glucose 4X [place] strip 00 daily. Medical DX:E08.65 Branch CONTOUR Yes [id number] Use to [facility] ers NEXT TEST 11-05 check ity of STRIPS 00:00: glucose 4X [place] strip 00 daily. Medical DX:E08.65 Branch CONTOUR 2019-0 Yes [id number] Use to [facility] ers NEXT TEST 11-05 check ity of STRIPS 00:00: glucose 4X [place] strip 00 daily. Medical DX:E08.65 Branch CONTOUR 2019-0 Yes [id number] Use to [facility] ers NEXT TEST 11-05 check ity of STRIPS 00:00: glucose 4X [place] strip 00 daily. Medical DX:E08.65 Branch CONTOUR 2019- Yes [id number] Use to [facility] ers NEXT TEST 11-05 check ity of STRIPS 00:00: glucose 4X [place] strip 00 daily. Medical DX:E08.65 Branch CONTOUR Yes [id number] Use to [facility] ers NEXT TEST 11-05 check ity of STRIPS 00:00: glucose 4X [place] strip 00 daily. Medical DX:E08.65 Branch CONTOUR Yes [id number] Use to [facility] ers NEXT TEST 11-05 check ity of STRIPS 00:00: glucose 4X [place] strip 00 daily. Medical DX:E08.65 Branch CONTOUR Yes [id number] Use to [facility] ers NEXT TEST 11-05 check ity of STRIPS 00:00: glucose 4X [place] strip 00 daily. Medical DX:E08.65 Branch CONTOUR Yes [id number] Use to [facility] ers NEXT TEST 11-05 check ity of STRIPS 00:00: glucose 4X [place] strip 00 daily. Medical DX:E08.65 Branch CONTOUR Yes [id number] Use to [facility] ers NEXT TEST 11-05 check ity of STRIPS 00:00: glucose 4X [place] strip 00 daily. Medical DX:E08.65 Branch CONTOUR 2019- Yes [id number] Use to [facility] ers NEXT TEST 11-05 check ity of STRIPS 00:00: glucose 4X [place] strip 00 daily. Medical DX:E08.65 Branch CONTOUR Yes [id number] Use to [facility] ers NEXT TEST 11-05 check ity of STRIPS 00:00: glucose 4X [place] strip 00 daily. Medical DX:E08.65 Branch CONTOUR 2019-0 Yes [id number] Use to [facility] ers NEXT TEST 11-05 check ity of STRIPS 00:00: glucose 4X [place] strip 00 daily. Medical DX:E08.65 Branch CONTOUR 2019- Yes [id number] Use to [facility] ers NEXT TEST 11-05 check ity of STRIPS 00:00: glucose 4X [place] strip 00 daily. Medical DX:E08.65 Branch CONTOUR 2019-0 Yes [id number] Use to [facility] ers NEXT TEST 5-31 check ity of STRIPS 00:00: glucose 4X [place] strip 00 daily. Medical DX:E08.65 Branch CONTOUR 2019-0 Yes [id number] Use to Univ ers NEXT TEST 5 check ity of STRIPS 00:00: glucose 4X [place] strip 00 daily. Medical DX:E08.65 Branch CONTOUR 2019-0 Yes [id number] Use to Univ ers NEXT TEST 5- check ity of STRIPS 00:00: glucose 4X [place] strip 00 daily. Medical DX:E08.65 Branch CONTOUR 2019-0 Yes [id number] Use to Univ ers NEXT TEST 5- check ity of STRIPS 00:00: glucose 4X [place] strip 00 daily. Medical DX:E08.65 Branch CONTOUR 2019-0 Yes [id number] Use to Univ ers NEXT TEST 11-05 check ity of STRIPS 00:00: glucose 4X [place] strip 00 daily. Medical DX:E08.65 Branch flash 2019-0 Yes [id number] 1{each} 1 Each Uni vers glucose 3-15 daily. Dx ity of scanning 00:00: 11.8, E [place] reader Misc 00 16.2, K Medic al 86.89 Branch flash 2019-0 Yes [id number] 1{each} 1 Each Uni vers glucose 3-15 every 10 ity of sensor Kit 00:00: () days. Dx Medical 11.8, E Branch 16.2, K 86.89 flash 2019-0 Yes [id number] 1{each} 1 Each Uni vers glucose 3-15 daily. Dx ity of scanning 00:00: 11.8, E [place] reader Misc 00 16.2, K Medic al 86.89 Branch flash 2019-0 Yes [id number] 1{each} 1 Each Uni vers glucose 3-15 every 10 ity of sensor Kit 00:00: () days. Dx Medical 11.8, E Branch 16.2, K 86.89 flash 2019-0 Yes [id number] 1{each} 1 Each Uni vers glucose 3-15 daily. Dx ity of scanning 00:00: 11.8, E [place] reader Misc 00 16.2, K Medic al 86.89 Branch flash 2019-0 Yes [id number] 1{each} 1 Each Uni vers glucose 3-15 every 10 ity of sensor Kit 00:00: () 00 days. Dx Medical 11.8, E Branch 16.2, K 86.89 flash 2019-0 Yes [id number] 1{each} 1 Each Uni vers glucose 3-15 daily. Dx ity of scanning 00:00: 11.8, E [place] reader Misc 00 16.2, K Medic al 86.89 Branch flash 2019-0 Yes [id number] 1{each} 1 Each Uni vers glucose 3-15 every 10 ity of sensor Kit 00:00: () 00 days. Dx Medical 11.8, E Branch 16.2, K 86.89 flash 2019-0 Yes [id number] 1{each} 1 Each Uni vers glucose 3-15 daily. Dx ity of scanning 00:00: 11.8, E [place] reader Misc 00 16.2, K Medic al 86.89 Branch flash 2019-0 Yes [id number] 1{each} 1 Each Uni vers glucose 3-15 every 10 ity of sensor Kit 00:00: () 00 days. Dx Medical 11.8, E Branch 16.2, K 86.89 flash 2019-0 Yes [id number] 1{each} 1 Each Uni vers glucose 3-15 daily. Dx ity of scanning 00:00: 11.8, E [place] reader Misc 00 16.2, K Medic al 86.89 Branch flash 2019-0 Yes [id number] 1{each} 1 Each Uni vers glucose 3-15 every 10 ity of sensor Kit 00:00: () 00 days. Dx Medical 11.8, E Branch 16.2, K 86.89 flash 2019-0 Yes [id number] 1{each} 1 Each Uni vers glucose 3-15 daily. Dx ity of scanning 00:00: 11.8, E [place] reader Misc 00 16.2, K Medic al 86.89 Branch flash 2019-0 Yes [id number] 1{each} 1 Each Uni vers glucose 3-15 every 10 ity of sensor Kit 00:00: () 00 days. Dx Medical 11.8, E Branch 16.2, K 86.89 flash 2019-0 Yes [id number] 1{each} 1 Each Uni vers glucose 3-15 daily. Dx ity of scanning 00:00: 11.8, E [place] reader Misc 00 16.2, K Medic al 86.89 Branch flash 2019-0 Yes [id number] 1{each} 1 Each Uni vers glucose 3-15 every 10 ity of sensor Kit 00:00: () 00 days. Dx Medical 11.8, E Branch 16.2, K 86.89 flash 2019-0 Yes [id number] 1{each} 1 Each Uni vers glucose 3-15 daily. Dx ity of scanning 00:00: 11.8, E [place] reader Misc 00 16.2, K Medic al 86.89 Branch flash 2019-0 Yes [id number] 1{each} 1 Each Uni vers glucose 3-15 every 10 ity of sensor Kit 00:00: () 00 days. Dx Medical 11.8, E Branch 16.2, K 86.89 flash 2019-0 Yes [id number] 1{each} 1 Each Uni vers glucose 3-15 daily. Dx ity of scanning 00:00: 11.8, E [place] reader Misc 00 16.2, K Medic al 86.89 Branch flash 2019-0 Yes [id number] 1{each} 1 Each Uni vers glucose 3-15 every 10 ity of sensor Kit 00:00: () 00 days. Dx Medical 11.8, E Branch 16.2, K 86.89 flash 2019-0 Yes [id number] 1{each} 1 Each Uni vers glucose 3-15 daily. Dx ity of scanning 00:00: 11.8, E [place] reader Misc 00 16.2, K Medic al 86.89 Branch flash 2019-0 Yes [id number] 1{each} 1 Each Uni vers glucose 3-15 every 10 ity of sensor Kit 00:00: () 00 days. Dx Medical 11.8, E Branch 16.2, K 86.89 flash 2019-0 Yes [id number] 1{each} 1 Each Uni vers glucose 3-15 daily. Dx ity of scanning 00:00: 11.8, E [place] reader Misc 00 16.2, K Medic al 86.89 Branch flash 2019-0 Yes [id number] 1{each} 1 Each Uni vers glucose 3-15 every 10 ity of sensor Kit 00:00: () 00 days. Dx Medical 11.8, E Branch 16.2, K 86.89 flash 2019-0 Yes [id number] 1{each} 1 Each Uni vers glucose 3-15 daily. Dx ity of scanning 00:00: 11.8, E [place] reader Misc 00 16.2, K Medic al 86.89 Branch flash 2019-0 Yes [id number] 1{each} 1 Each Uni vers glucose 3-15 every 10 ity of sensor Kit 00:00: () 00 days. Dx Medical 11.8, E Branch 16.2, K 86.89 flash 2019-0 Yes [id number] 1{each} 1 Each Uni vers glucose 3-15 daily. Dx ity of scanning 00:00: 11.8, E [place] reader Misc 00 16.2, K Medic al 86.89 Branch flash 2019-0 Yes [id number] 1{each} 1 Each Uni vers glucose 3-15 every 10 ity of sensor Kit 00:00: () 00 days. Dx Medical 11.8, E Branch 16.2, K 86.89 flash 2019-0 Yes [id number] 1{each} 1 Each Uni vers glucose 3-15 daily. Dx ity of scanning 00:00: 11.8, E [place] reader Misc 00 16.2, K Medic al 86.89 Branch flash 2019-0 Yes [id number] 1{each} 1 Each Uni vers glucose 3-15 every 10 ity of sensor Kit 00:00: () 00 days. Dx Medical 11.8, E Branch 16.2, K 86.89 flash 2019-0 Yes [id number] 1{each} 1 Each Uni vers glucose 3-15 daily. Dx ity of scanning 00:00: 11.8, E [place] reader Misc 00 16.2, K Medic al 86.89 Branch flash 2019-0 Yes [id number] 1{each} 1 Each Uni vers glucose 3-15 every 10 ity of sensor Kit 00:00: (ten) 00 days. Dx Medical 11.8, E Branch 16.2, K 86.89 flash 2019-0 Yes [id number] 1{each} 1 Each Uni vers glucose 3-15 daily. Dx ity of scanning 00:00: 11.8, E [place] reader Misc 00 16.2, K Medic al 86.89 Branch flash 2019-0 Yes [id number] 1{each} 1 Each Uni vers glucose 3-15 every 10 ity of sensor Kit 00:00: (ten) 00 days. Dx Medical 11.8, E Branch 16.2, K 86.89 flash 2019-0 Yes [id number] 1{each} 1 Each Uni vers glucose 3-15 daily. Dx ity of scanning 00:00: 11.8, E [place] reader Misc 00 16.2, K Medic al 86.89 Branch flash 2019-0 Yes [id number] 1{each} 1 Each Uni vers glucose 3-15 every 10 ity of sensor Kit 00:00: () 00 days. Dx Medical 11.8, E Branch 16.2, K 86.89 flash 2019-0 Yes [id number] 1{each} 1 Each Uni vers glucose 3-15 daily. Dx ity of scanning 00:00: 11.8, E [place] reader Misc 00 16.2, K Medic al 86.89 Branch flash 2019-0 Yes [id number] 1{each} 1 Each Uni vers glucose 3-15 every 10 ity of sensor Kit 00:00: () 00 days. Dx Medical 11.8, E Branch 16.2, K 86.89 flash 2019-0 Yes [id number] 1{each} 1 Each Uni vers glucose 3-15 daily. Dx ity of scanning 00:00: 11.8, E [place] reader Misc 00 16.2, K Medic al 86.89 Branch flash 2019-0 Yes [id number] 1{each} 1 Each Uni vers glucose 3-15 every 10 ity of sensor Kit 00:00: () 00 days. Dx Medical 11.8, E Branch 16.2, K 86.89 flash 2019-0 Yes [id number] 1{each} 1 Each Uni vers glucose 3-15 daily. Dx ity of scanning 00:00: 11.8, E [place] reader Misc 00 16.2, K Medic al 86.89 Branch flash 2019-0 Yes [id number] 1{each} 1 Each Uni vers glucose 3-15 every 10 ity of sensor Kit 00:00: () 00 days. Dx Medical 11.8, E Branch 16.2, K 86.89 flash 2019-0 Yes [id number] 1{each} 1 Each Uni vers glucose 3-15 daily. Dx ity of scanning 00:00: 11.8, E [place] reader Misc 00 16.2, K Medic al 86.89 Branch flash 2019-0 Yes [id number] 1{each} 1 Each Uni vers glucose 3-15 every 10 ity of sensor Kit 00:00: () 00 days. Dx Medical 11.8, E Branch 16.2, K 86.89 flash 2019-0 Yes [id number] 1{each} 1 Each Uni vers glucose 3-15 daily. Dx ity of scanning 00:00: 11.8, E [place] reader Misc 00 16.2, K Medic al 86.89 Branch flash 2019-0 Yes [id number] 1{each} 1 Each Uni vers glucose 3-15 every 10 ity of sensor Kit 00:00: () 00 days. Dx Medical 11.8, E Branch 16.2, K 86.89 flash 2019-0 Yes [id number] 1{each} 1 Each Uni vers glucose 3-15 daily. Dx ity of scanning 00:00: 11.8, E [place] reader Misc 00 16.2, K Medic al 86.89 Branch flash 2019-0 Yes [id number] 1{each} 1 Each Uni vers glucose 3-15 every 10 ity of sensor Kit 00:00: () 00 days. Dx Medical 11.8, E Branch 16.2, K 86.89 flash 2019-0 Yes [id number] 1{each} 1 Each Uni vers glucose 3-15 daily. Dx ity of scanning 00:00: 11.8, E [place] reader Misc 00 16.2, K Medic al 86.89 Branch flash 2019-0 Yes [id number] 1{each} 1 Each Uni vers glucose 3-15 every 10 ity of sensor Kit 00:00: () 00 days. Dx Medical 11.8, E Branch 16.2, K 86.89 flash 2019-0 Yes [id number] 1{each} 1 Each Uni vers glucose 3-15 daily. Dx ity of scanning 00:00: 11.8, E [place] reader Misc 00 16.2, K Medic al 86.89 Branch flash 2019-0 Yes [id number] 1{each} 1 Each Uni vers glucose 3-15 every 10 ity of sensor Kit 00:00: () 00 days. Dx Medical 11.8, E Branch 16.2, K 86.89 flash 2019-0 Yes [id number] 1{each} 1 Each Uni vers glucose 3-15 daily. Dx ity of scanning 00:00: 11.8, E [place] reader Misc 00 16.2, K Medic al 86.89 Branch flash 2019-0 Yes [id number] 1{each} 1 Each Uni vers glucose 3-15 every 10 ity of sensor Kit 00:00: (ten) [place] 00 days. Dx Medical 11.8, E Branch 16.2, K 86.89 flash 2019-0 Yes [id number] 1{each} 1 Each Uni vers glucose 3-15 daily. Dx ity of scanning 00:00: 11.8, E [place] reader Misc 00 16.2, K Medic al 86.89 Branch flash 2019-0 Yes [id number] 1{each} 1 Each Uni vers glucose 3-15 every 10 ity of sensor Kit 00:00: (ten) [place] 00 days. Dx Medical 11.8, E Branch 16.2, K 86.89 flash 2019-0 Yes [id number] 1{each} 1 Each Uni vers glucose 3-15 daily. Dx ity of scanning 00:00: 11.8, E [place] reader Misc 00 16.2, K Medic al 86.89 Branch flash 2019-0 Yes [id number] 1{each} 1 Each Uni vers glucose 3-15 [...] directed ity of (CONTOUR 00:00: [place]ER[place] [facility] Blood-Gluco Yes Use as Univ ers se Meter 8-14 directed ity of (CONTOUR 00:00: [place] METER[place] [facility] [place] [facility] Blood-Gluco Yes Use as Univ ers se Meter 8-14 directed ity of (CONTOUR 00:00: [place] METER) [facility] [place] [facility] Blood-Gluco Yes Use as Univ ers se Meter 8-14 directed ity of (CONTOUR 00:00: [place] METER) [facility] [place] [facility] Blood-Gluco Yes Use as Univ ers se Meter 8-14 directed ity of (CONTOUR 00:00: [place] METER) [facility] [place] [facility] Blood-Gluco Yes Use as Univ ers se Meter 8-14 directed ity of (CONTOUR 00:00: [place] METER) [facility] [place] [facility] Blood-Gluco Yes Use as Univ ers se Meter 8-14 directed ity of (CONTOUR 00:00: [place] METER) [facility] [place] [facility] Blood-Gluco Yes Use as Univ ers se Meter 8-14 directed ity of (CONTOUR 00:00: [place] METER) [facility] [place] [facility] Blood-Gluco Yes Use as Univ ers se Meter 8-14 directed ity of (CONTOUR 00:00: [place] METER) [facility] [place] [facility] zolpidem 2017-0 Yes 10mg QD Take 10 mg [facility] (AMBIEN) 5 2-[address] MG tablet 00:00: nightly [facility] 00 needed for l sleep. zolpidem 0 Yes 10mg QD Take 10 mg [facility] (AMBIEN) 5 2-[address] MG tablet 00:00: nightly [facility] 00 needed for l sleep. clonAZEPAM 0 Yes .5mg Q.5D Take 0.5 [facility] (KlonoPIN) 1-[address] 0.5 MG 00:00: mouth 2 [facility]osp[facility] tablet 00 (two) l times a day as needed for anxiety. clonAZEPAM 0 Yes .5mg Q.5D Take 0.5 Met [facility]odi (KlonoPIN) 1-[address] 0.5 MG 00:00: mouth 2 [facility] tablet 00 (two) l times a day as needed for anxiety. acetaminoph 2013-06 Yes Abscess 1{tbl} Take 1 [place] en-codeine 2-22 tablet by [facility] (TYLENOL/CO 00:00: mouth DEINE #3) 00 every 4 300-30 mg hours as per tablet needed for Pain. acetaminoph 2013-06 Yes Abscess 1{tbl} Take 1 [place] en-codeine 2-22 tablet by [facility] (TYLENOL/CO 00:00: mouth DEINE #3) 00 every 4 300-30 mg hours as per tablet needed for Pain. ibuprofen 2013-06 Yes Cellulitis 400mg Take 1 [place] (MOTRIN) 2-10 tablet by Health 400 mg 00:00: mouth tablet 00 every 6 hours as needed for Pain. ibuprofen 2013-06 Yes Cellulitis 400mg Take 1 [facility] (MOTRIN) 2-10 tablet by Health 400 mg 00:00: mouth tablet 00 every 6 hours as needed for Pain. hydrochloro 2013-06 Yes 12.5mg Take 12.5 [place] thiazide 2-09 mg by Health 12.5 mg 23:14: mouth capsule 58 every morning. insulin 2013-06 Yes Inject [place] glargine 2-09 under the Health (LANTUS 23:14: skin once. SOLOSTAR) 58 100 unit/mL (3 mL) In insulin 2013-06 Yes Inject [place] aspart 2-09 under the [facility] (NOVOLOG) 23:14: skin 3 100 unit/mL 58 times injection daily. hydrochloro 2013-06 Yes 12.5mg Take 12.5 [place] thiazide 2-09 mg by [facility] 12.5 mg 23:14: mouth capsule 58 every morning. insulin 2013-06 Yes Inject [place] glargine 2-09 under the [facility] (LANTUS 23:14: skin once. SOLOSTAR) 58 100 unit/mL (3 mL) In insulin 2013-06 Yes Inject [place] aspart 2-09 under the Health (NOVOLOG) 23:14: skin 3 100 unit/mL 58 times injection daily. Immunizations Ordered Filled Immunization Date Status Comments [facility] e Immunization Name Name Pneumococcal 20 2022-03-31 Completed Universit y of Conjugate, PCV20 00:00:00 [facility] dical (Prevnar 20) Branch SARS-COV-2 COVID-19 2022-03-31 [...] Unive rsity of PFIZER VACCINE 00:00:00 [place] [facility]o Branch SARS-COV-2 COVID-19 2021-03-27 Completed Unive rsity of PFIZER VACCINE 00:00:00 [place] [facility] Branch SARS-COV-2 COVID-19 2021-03-27 Completed Unive rsity of PFIZER VACCINE 00:00:00 [place] [facility] Branch SARS-COV-2 COVID-19 2021-03-27 Completed Unive rsity of PFIZER VACCINE 00:00:00 [facility] [place] [facility] Branch SARS-COV-2 COVID-19 2021-03-27 Completed Unive rsity of PFIZER VACCINE 00:00:00 [facility] [place] [facility] Branch SARS-COV-2 COVID-19 2021-03-27 Completed Unive rsity of PFIZER VACCINE 00:00:00 [facility] [place] [facility] Branch SARS-COV-2 COVID-19 2021-03-27 Completed Unive rsity of PFIZER VACCINE 00:00:00 [facility] Branch SARS-COV-2 COVID-19 2021-03-27 Completed Unive rsity of PFIZER VACCINE 00:00:00 [facility] Branch SARS-COV-2 COVID-19 2021-03-27 Completed Unive rsity of PFIZER VACCINE 00:00:00 [facility] [place] [facility] Branch SARS-COV-2 COVID-19 2021-03-27 Completed Unive rsity of PFIZER VACCINE 00:00:00 [facility] Branch SARS-COV-2 COVID-19 2021-03-27 Completed Unive rsity of PFIZER VACCINE 00:00:00 [facility] Branch SARS-COV-2 COVID-19 2021-03-27 Completed Unive rsity of PFIZER VACCINE 00:00:00 [facility] Branch SARS-COV-2 COVID-19 2021-03-27 Completed Unive rsity of PFIZER VACCINE 00:00:00 [facility] Branch SARS-COV-2 COVID-19 2021-03-27 Completed Unive rsity of PFIZER VACCINE 00:00:00 [facility] SARS-COV-2 COVID-19 2021-03-27 Completed Unive rsity of PFIZER VACCINE 00:00:00 [facility] SARS-COV-2 COVID-19 2021-03-27 Completed Unive rsity of PFIZER VACCINE 00:00:00 [facility] SARS-COV-2 COVID-19 2021-03-27 Completed Unive rsity of PFIZER VACCINE 00:00:00 [facility] SARS-COV-2 COVID-19 2021-03-27 Completed Unive rsity of PFIZER VACCINE 00:00:00 [facility] SARS-COV-2 COVID-19 2021-03-27 Completed Unive rsity of PFIZER VACCINE 00:00:00 [facility] TDAP 2021-03-01 Completed University of 00:00:00 [facility] TDAP 2021-03-01 Completed University of 00:00:00 [facility] TDAP 2021-03-01 Completed University of 00:00:00 [facility] TDAP 2021-03-01 Completed University of 00:00:00 [facility] TDAP 2021-03-01 Completed University of 00:00:00 [facility] TDAP 2021-03-01 Completed University of 00:00:00 [facility] TDAP 2021-03-01 Completed University of 00:00:00 [facility] TDAP 2021-03-01 Completed University of 00:00:00 [facility] TDAP 2021-03-01 Completed University of 00:00:00 [facility] TDAP 2021-03-01 Completed University of 00:00:00 [facility] TDAP 2021-03-01 Completed University of 00:00:00 [facility] TDAP 2021-03-01 Completed University of 00:00:00 [facility] TDAP 2021-03-01 Completed University of 00:00:00 [facility] TDAP 2021-03-01 Completed University of 00:00:00 [facility] TDAP 2021-03-01 Completed University of 00:00:00 [facility] TDAP 2021-03-01 Completed University of 00:00:00 [facility] TDAP 2021-03-01 Completed University of 00:00:00 [facility] TDAP 2021-03-01 Completed University of 00:00:00 [facility] TDAP 2021-03-01 Completed University of 00:00:00 [facility] TDAP 2021-03-01 Completed University of 00:00:00 [facility] TDAP 2021-03-01 Completed University of 00:00:00 [facility] TDAP 2021-03-01 Completed University of 00:00:00 [facility] TDAP 2021-03-01 Completed University of 00:00:00 [facility] TDAP 2021-03-01 Completed University of 00:00:00 [facility] TDAP 2021-03-01 Completed University of 00:00:00 [facility] TDAP 2021-03-01 Completed University of 00:00:00 [facility] TDAP 2021-03-01 Completed University of 00:00:00 [facility] TDAP 2021-03-01 Completed University of 00:00:00 [facility] TDAP 2021-03-01 Completed University of 00:00:00 [facility] Pfizer COVID-19 Pfizer COVID-19 2021-01-21 Completed Vaccine Vaccine 00:00:00 SARS-COV-2 COVID-19 2020-07-20 Completed Unive rsity of PFIZER VACCINE 00:00:00 [facility] SARS-COV-2 COVID-19 2020-07-20 Completed Unive rsity of PFIZER VACCINE 00:00:00 [facility] SARS-COV-2 COVID-19 2020-07-20 Completed Unive rsity of PFIZER VACCINE 00:00:00 [facility] SARS-COV-2 COVID-19 2020-07-20 Completed Unive rsity of PFIZER VACCINE 00:00:00 [facility] SARS-COV-2 COVID-19 2020-07-20 Completed Unive rsity of PFIZER VACCINE 00:00:00 [facility] SARS-COV-2 COVID-19 2020-07-20 Completed Unive rsity of PFIZER VACCINE 00:00:00 [facility] SARS-COV-2 COVID-19 2020-07-20 Completed Unive rsity of PFIZER VACCINE 00:00:00 [facility] SARS-COV-2 COVID-19 2020-07-20 Completed Unive rsity of PFIZER VACCINE 00:00:00 [place] [facility] SARS-COV-2 COVID-19 2020-07-20 Completed Unive rsity of PFIZER VACCINE 00:00:00 [facility] Branch SARS-COV-2 COVID-19 2020-07-20 Completed Unive rsity of PFIZER VACCINE 00:00:00 [facility] Branch SARS-COV-2 COVID-19 2020-07-20 Completed Unive rsity of PFIZER VACCINE 00:00:00 [facility] Branch SARS-COV-2 COVID-19 2020-07-20 Completed Unive rsity of PFIZER VACCINE 00:00:00 [facility] Branch SARS-COV-2 COVID-19 2020-07-20 Completed Unive rsity of PFIZER VACCINE 00:00:00 [facility] Branch SARS-COV-2 COVID-19 2020-07-20 Completed Unive rsity of PFIZER VACCINE 00:00:00 [facility] Branch SARS-COV-2 COVID-19 2020-07-20 Completed Unive rsity of PFIZER VACCINE 00:00:00 [facility] Branch SARS-COV-2 COVID-19 2020-07-20 Completed Unive rsity of PFIZER VACCINE 00:00:00 [facility] Branch SARS-COV-2 COVID-19 2020-07-20 Completed Unive rsity of PFIZER VACCINE 00:00:00 [facility] Branch SARS-COV-2 COVID-19 2020-07-20 Completed Unive rsity of PFIZER VACCINE 00:00:00 [facility] Branch SARS-COV-2 COVID-19 2020-07-20 Completed Unive rsity of PFIZER VACCINE 00:00:00 [facility] Branch SARS-COV-2 COVID-19 2020-07-20 Completed Unive rsity of PFIZER VACCINE 00:00:00 [facility] Branch SARS-COV-2 COVID-19 2020-07-20 Completed Unive rsity of PFIZER VACCINE 00:00:00 [facility] Branch SARS-COV-2 COVID-19 2020-07-20 Completed Unive rsity of PFIZER VACCINE 00:00:00 [facility] Branch SARS-COV-2 COVID-19 2020-07-20 Completed Unive rsity of PFIZER VACCINE 00:00:00 [facility] Branch SARS-COV-2 COVID-19 2020-07-20 Completed Unive rsity of PFIZER VACCINE 00:00:00 [facility] SARS-COV-2 COVID-19 2020-07-20 Completed Unive rsity of PFIZER VACCINE 00:00:00 [facility] SARS-COV-2 COVID-19 2020-07-20 Completed Unive rsity of PFIZER VACCINE 00:00:00 [facility] SARS-COV-2 COVID-19 2020-07-20 Completed Unive rsity of PFIZER VACCINE 00:00:00 [facility] SARS-COV-2 COVID-19 2020-07-20 Completed Unive rsity of PFIZER VACCINE 00:00:00 [facility] SARS-COV-2 COVID-19 2020-07-20 Completed Unive rsity of PFIZER VACCINE 00:00:00 [facility] Pfizer COVID-19 Pfizer COVID-19 2020-07-20 Completed Vaccine Vaccine 00:00:00 SARS-COV-2 COVID-19 2020-06-29 Completed Unive rsity of PFIZER VACCINE 00:00:00 [facility] SARS-COV-2 COVID-19 2020-06-29 Completed Unive rsity of PFIZER VACCINE 00:00:00 [facility] SARS-COV-2 COVID-19 2020-06-29 Completed Unive rsity of PFIZER VACCINE 00:00:00 [facility] SARS-COV-2 COVID-19 2020-06-29 Completed Unive rsity of PFIZER VACCINE 00:00:00 [facility] SARS-COV-2 COVID-19 2020-06-29 Completed Unive rsity of PFIZER VACCINE 00:00:00 [facility] SARS-COV-2 COVID-19 2020-06-29 Completed Unive rsity of PFIZER VACCINE 00:00:00 [facility] SARS-COV-2 COVID-19 2020-06-29 Completed Unive rsity of PFIZER VACCINE 00:00:00 [facility] SARS-COV-2 COVID-19 2020-06-29 Completed Unive rsity of PFIZER VACCINE 00:00:00 [facility] SARS-COV-2 COVID-19 2020-06-29 Completed Unive rsity of PFIZER VACCINE 00:00:00 [facility] SARS-COV-2 COVID-19 2020-06-29 Completed Unive rsity of PFIZER VACCINE 00:00:00 [facility] SARS-COV-2 COVID-19 2020-06-29 Completed Unive rsity of PFIZER VACCINE 00:00:00 [facility] SARS-COV-2 COVID-19 2020-06-29 Completed Unive rsity of PFIZER VACCINE 00:00:00 [facility] SARS-COV-2 COVID-19 2020-06-29 Completed Unive rsity of PFIZER VACCINE 00:00:00 [facility] SARS-COV-2 COVID-19 2020-06-29 Completed Unive rsity of PFIZER VACCINE 00:00:00 [facility] SARS-COV-2 COVID-19 2020-06-29 Completed Unive rsity of PFIZER VACCINE 00:00:00 [facility] SARS-COV-2 COVID-19 2020-06-29 Completed Unive rsity of PFIZER VACCINE 00:00:00 [facility] SARS-COV-2 COVID-19 2020-06-29 Completed Unive rsity of PFIZER VACCINE 00:00:00 [facility] SARS-COV-2 COVID-19 2020-06-29 Completed Unive rsity of PFIZER VACCINE 00:00:00 [facility] SARS-COV-2 COVID-19 2020-06-29 Completed Unive rsity of PFIZER VACCINE 00:00:00 [facility] SARS-COV-2 COVID-19 2020-06-29 Completed Unive rsity of PFIZER VACCINE 00:00:00 [facility] SARS-COV-2 COVID-19 2020-06-29 Completed Unive rsity of PFIZER VACCINE 00:00:00 [facility] SARS-COV-2 COVID-19 2020-06-29 Completed Unive rsity of PFIZER VACCINE 00:00:00 [facility] SARS-COV-2 COVID-19 2020-06-29 Completed Unive rsity of PFIZER VACCINE 00:00:00 [facility] SARS-COV-2 COVID-19 2020-06-29 Completed Unive rsity of PFIZER VACCINE 00:00:00 [facility] SARS-COV-2 COVID-19 2020-06-29 Completed Unive rsity of PFIZER VACCINE 00:00:00 [facility] SARS-COV-2 COVID-19 2020-06-29 Completed Unive rsity of PFIZER VACCINE 00:00:00 [facility] SARS-COV-2 COVID-19 2020-06-29 Completed Unive rsity of PFIZER VACCINE 00:00:00 [facility] SARS-COV-2 COVID-19 2020-06-29 Completed Unive rsity of PFIZER VACCINE 00:00:00 [facility] SARS-COV-2 COVID-19 2020-06-29 Completed Unive rsity of PFIZER VACCINE 00:00:00 [facility] Pfizer COVID-19 Pfizer COVID-19 2020-06-29 Completed Vaccine Vaccine 00:00:00 Influenza Virus 2018-04-12 Completed Universit y of Vaccine Quad .5 mL 00:00:00 [facility] 6+ MO Branch Influenza Virus [...] y of Vaccine Quad IM 3+ 00:00:00 [facility] Influenza Virus 2014-04-12 Completed Universit y of Vaccine Quad IM 3+ 00:00:00 [facility] Influenza Virus 2014-04-12 Completed Universit y of Vaccine Quad IM 3+ 00:00:00 [facility] Influenza Virus 2014-04-12 Completed Universit y of Vaccine Quad IM 3+ 00:00:00 [facility] Influenza Virus 2014-04-12 Completed Universit y of Vaccine Quad IM 3+ 00:00:00 [facility] Influenza Virus 2014-04-12 Completed Universit y of Vaccine Quad IM 3+ 00:00:00 [facility] Influenza Virus 2014-04-12 Completed Universit y of Vaccine Quad IM 3+ 00:00:00 [facility] Influenza Virus 2014-04-12 Completed Universit y of Vaccine Quad IM 3+ 00:00:00 [facility] Influenza Virus 2014-04-12 Completed Universit y of Vaccine Quad IM 3+ 00:00:00 [facility] Influenza Virus 2014-04-12 Completed Universit y of Vaccine Quad IM 3+ 00:00:00 [facility] Influenza Virus 2014-04-12 Completed Universit y of Vaccine Quad IM 3+ 00:00:00 [facility] Influenza Virus 2014-04-12 Completed Universit y of Vaccine Quad IM 3+ 00:00:00 [facility] Influenza Virus 2014-04-12 Completed Universit y of Vaccine [facility] IM 3+ 00:00:00 [facility] Influenza Virus 2014-04-12 Completed Universit y of Vaccine Quad IM 3+ 00:00:00 [facility] Influenza Virus 2014-04-12 Completed Universit y of Vaccine Quad IM 3+ 00:00:00 [facility] Influenza Virus 2014-04-12 Completed Universit y of Vaccine Quad IM 3+ 00:00:00 [facility] Influenza Virus 2014-04-12 Completed Universit y of Vaccine Quad IM 3+ 00:00:00 [facility] Influenza Virus 2014-04-12 Completed Universit y of Vaccine Quad IM 3+ 00:00:00 [facility] Influenza Virus 2014-04-12 Completed Universit y of Vaccine Quad IM 3+ 00:00:00 [facility] Influenza Virus 2014-04-12 Completed Universit y of Vaccine Quad IM 3+ 00:00:00 [facility] Influenza Virus 2014-04-12 Completed Universit y of Vaccine Quad IM 3+ 00:00:00 [facility] Influenza Virus 2014-04-12 Completed Universit y of Vaccine Quad IM 3+ 00:00:00 [facility] Influenza Virus 2014-04-12 Completed Universit y of Vaccine Quad IM 3+ 00:00:00 [facility] Influenza Virus 2014-04-12 Completed Universit y of Vaccine Quad IM 3+ 00:00:00 [facility] Influenza Virus 2014-04-12 Completed Universit y of Vaccine Quad IM 3+ 00:00:00 [facility] Influenza Virus 2014-04-12 Completed Universit y of Vaccine Quad IM 3+ 00:00:00 [facility] Influenza Virus 2014-04-12 Completed Universit y of Vaccine Quad IM 3+ 00:00:00 [facility] Influenza Virus 2014-04-12 Completed Universit y of Vaccine Quad IM 3+ 00:00:00 [facility] Influenza Virus 2014-04-12 Completed Universit y of Vaccine Quad IM 3+ 00:00:00 [facility] Pneumococcal 2013-04-22 Completed University o f Polysaccharide, 00:00:00 [facility] PPSV23 (PNEUMOVAX) Branch Influenza Virus 2013-04-22 Completed Universit y of Vaccine (3+ yrs) 00:00:00 [facility] Pneumococcal 2013-04-22 Completed University o f Polysaccharide, 00:00:00 [facility] PPSV23 (PNEUMOVAX) Branch Influenza Virus 2013-04-22 Completed Universit y of Vaccine (3+ yrs) 00:00:00 [facility] Pneumococcal 2013-04-22 Completed University o f Polysaccharide, 00:00:00 [facility] PPSV23 (PNEUMOVAX) Branch Influenza Virus 2013-04-22 Completed Universit y of Vaccine (3+ yrs) 00:00:00 [facility] Pneumococcal 2013-04-22 Completed University o f Polysaccharide, 00:00:00 [facility] PPSV23 (PNEUMOVAX) Branch Influenza Virus 2013-04-22 Completed Universit y of Vaccine (3+ yrs) 00:00:00 [facility] Pneumococcal 2013-04-22 Completed University o f Polysaccharide, 00:00:00 [facility] PPSV23 (PNEUMOVAX) Branch Influenza Virus 2013-04-22 Completed Universit y of Vaccine (3+ yrs) 00:00:00 [facility] dical Branch Pneumococcal 2013-04-22 Completed University o f Polysaccharide, 00:00:00 [facility] PPSV23 (PNEUMOVAX) Branch Influenza Virus 2013-04-22 Completed Universit y of Vaccine (3+ yrs) 00:00:00 [facility] Pneumococcal 2013-04-22 Completed University o f Polysaccharide, 00:00:00 [place] [facility] PPSV23 (PNEUMOVAX) Branch Influenza Virus 2013-04-22 Completed Universit y of Vaccine (3+ yrs) 00:00:00 [facility] Pneumococcal 2013-04-22 Completed University o f Polysaccharide, 00:00:00 [facility] PPSV23 (PNEUMOVAX) Branch Influenza Virus 2013-04-22 Completed Universit y of Vaccine (3+ yrs) 00:00:00 [facility] Pneumococcal 2013-04-22 Completed University o f Polysaccharide, 00:00:00 [facility] ical PPSV23 (PNEUMOVAX) Branch Influenza Virus 2013-04-22 Completed Universit y of Vaccine (3+ yrs) 00:00:00 [facility] Pneumococcal 2013-04-22 Completed University o f Polysaccharide, 00:00:00 [place] [facility] PPSV23 (PNEUMOVAX) Branch Influenza Virus 2013-04-22 Completed Universit y of Vaccine (3+ yrs) 00:00:00 [facility] Pneumococcal 2013-04-22 Completed University o f Polysaccharide, 00:00:00 [facility] PPSV23 (PNEUMOVAX) Branch Influenza Virus 2013-04-22 Completed Universit y of Vaccine (3+ yrs) 00:00:00 [facility] Pneumococcal 2013-04-22 Completed University o f Polysaccharide, 00:00:00 [facility] PPSV23 (PNEUMOVAX) Branch Influenza Virus 2013-04-22 Completed Universit y of Vaccine (3+ yrs) 00:00:00 [facility] Pneumococcal 2013-04-22 Completed University o f Polysaccharide, 00:00:00 [facility] PPSV23 (PNEUMOVAX) Branch Influenza Virus 2013-04-22 Completed Universit y of Vaccine (3+ yrs) 00:00:00 [facility] Pneumococcal 2013-04-22 Completed University o f Polysaccharide, 00:00:00 [place] [facility] PPSV23 (PNEUMOVAX) Branch Influenza Virus 2013-04-22 Completed Universit y of Vaccine (3+ yrs) 00:00:00 [facility] Pneumococcal 2013-04-22 Completed University o f Polysaccharide, 00:00:00 [facility] PPSV23 (PNEUMOVAX) Branch Influenza Virus 2013-04-22 Completed Universit y of Vaccine (3+ yrs) 00:00:00 [facility] Pneumococcal 2013-04-22 Completed University o f Polysaccharide, 00:00:00 [place] [facility] PPSV23 (PNEUMOVAX) Branch Influenza Virus 2013-04-22 Completed Universit y of Vaccine (3+ yrs) 00:00:00 [facility] Pneumococcal 2013-04-22 Completed University o f Polysaccharide, 00:00:00 [place] [facility] PPSV23 (PNEUMOVAX) Branch Influenza Virus 2013-04-22 Completed Universit y of Vaccine (3+ yrs) 00:00:00 [facility] Pneumococcal 2013-04-22 Completed University o f Polysaccharide, 00:00:00 [place] [facility] PPSV23 (PNEUMOVAX) Branch Influenza Virus 2013-04-22 Completed Universit y of Vaccine (3+ yrs) 00:00:00 [facility] Pneumococcal 2013-04-22 Completed University o f Polysaccharide, 00:00:00 [place] [facility] PPSV23 (PNEUMOVAX) Branch Influenza Virus 2013-04-22 Completed Universit y of Vaccine (3+ yrs) 00:00:00 [facility] Pneumococcal 2013-04-22 Completed University o f Polysaccharide, 00:00:00 [facility] PPSV23 (PNEUMOVAX) Branch Influenza Virus 2013-04-22 Completed Universit y of Vaccine (3+ yrs) 00:00:00 [facility] Pneumococcal 2013-04-22 Completed University o f Polysaccharide, 00:00:00 [facility] PPSV23 (PNEUMOVAX) Branch Influenza Virus 2013-04-22 Completed Universit y of Vaccine (3+ yrs) 00:00:00 [facility] Pneumococcal 2013-04-22 Completed University o f Polysaccharide, 00:00:00 [place] [facility] PPSV23 (PNEUMOVAX) Branch Influenza Virus 2013-04-22 Completed Universit y of Vaccine (3+ yrs) 00:00:00 [facility] dical Branch Pneumococcal 2013-04-22 Completed University o f Polysaccharide, 00:00:00 [place] [facility] PPSV23 (PNEUMOVAX) Branch Influenza Virus 2013-04-22 Completed Universit y of Vaccine (3+ yrs) 00:00:00 [facility] Pneumococcal 2013-04-22 Completed University o f Polysaccharide, 00:00:00 [place] [facility] PPSV23 (PNEUMOVAX) Branch Influenza Virus 2013-04-22 Completed Universit y of Vaccine (3+ yrs) 00:00:00 [facility] Pneumococcal 2013-04-22 Completed University o f Polysaccharide, 00:00:00 [facility] PPSV23 (PNEUMOVAX) Branch Influenza Virus 2013-04-22 Completed Universit y of Vaccine (3+ yrs) 00:00:00 [facility] Pneumococcal 2013-04-22 Completed University o f Polysaccharide, 00:00:00 [place] [facility] PPSV23 (PNEUMOVAX) Branch Influenza Virus 2013-04-22 Completed Universit y of Vaccine (3+ yrs) 00:00:00 [facility] Pneumococcal 2013-04-22 Completed University o f Polysaccharide, 00:00:00 [place] [facility] PPSV23 (PNEUMOVAX) Branch Influenza Virus 2013-04-22 Completed Universit y of Vaccine (3+ yrs) 00:00:00 [facility] Pneumococcal 2013-04-22 Completed University o f Polysaccharide, 00:00:00 [place] [facility] PPSV23 (PNEUMOVAX) Branch Influenza Virus 2013-04-22 Completed Universit y of Vaccine (3+ yrs) 00:00:00 [facility] Pneumococcal 2013-04-22 Completed University o f Polysaccharide, 00:00:00 [facility] PPSV23 (PNEUMOVAX) Branch Influenza Virus 2013-04-22 Completed Universit y of Vaccine (3+ yrs) 00:00:00 [facility] Vital Signs Vital Name Observation Time Observation Value Comments Source Systolic blood 2022-03-31 19:54:00 107 mm[Hg] Univer sity of pressure [facility] Diastolic blood 2022-03-31 19:54:00 73 mm[Hg] Unive rsity of pressure [facility] Heart rate 2022-03-31 19:54:00 94 /min [facility] Body temperature 2022-03-31 19:54:00 37 Sabrina Univ ers[facility] Body height 2022-03-31 19:54:00 171.5 cm [facility] Body weight 2022-03-31 19:54:00 72.576 kg [facility] BMI 2022-03-31 19:54:00 24.69 kg/m2 [facility] Oxygen saturation in 2022-03-31 19:54:00 95 /min University of Arterial blood by [facility] Pulse oximetry Branch Systolic blood 2022-03-05 19:52:00 136 mm[Hg] Univer [facility]ity of pressure [facility] Diastolic blood 2022-03-05 19:52:00 83 mm[Hg] Unive rsity of pressure [facility] Heart rate 2022-03-05 19:52:00 98 /min [facility] Body temperature 2022-03-05 19:52:00 36.72 Sabrina [facility] Respiratory rate 2022-03-05 19:52:00 18 /min [facility] Body height 2022-03-05 19:52:00 171.5 cm [facility] Body weight 2022-03-05 19:52:00 73.936 kg [facility] BMI 2022-03-05 19:52:00 25.15 kg/m2 [facility] Systolic blood 2022-01-24 18:20:00 131 mm[Hg] Univer [facility]ity of pressure [facility] Diastolic blood 2022-01-24 18:20:00 91 mm[Hg] Unive rsity of pressure [facility] Heart rate 2022-01-24 18:19:00 102 /min [facility] Body temperature 2022-01-24 18:19:00 36.72 Sabrina [facility] Body height 2022-01-24 18:19:00 171.5 cm [facility] Body weight 2022-01-24 18:19:00 74.707 kg [facility] BMI 2022-01-24 18:19:00 25.41 kg/m2 [facility] Oxygen saturation in 2022-01-24 18:19:00 97 /min University of Arterial blood by [facility] Pulse oximetry Branch Systolic blood 2022-01-24 18:20:00 131 mm[Hg] Univer sity of pressure [facility] Diastolic blood 2022-01-24 18:20:00 91 mm[Hg] Unive rsity of [facility] Heart rate 2022-01-24 18:19:00 102 /min [facility] Body temperature 2022-01-24 18:19:00 36.72 Sabrina Univ [facility] Body height 2022-01-24 18:19:00 171.5 cm [facility] Body weight 2022-01-24 18:19:00 74.707 kg [facility] BMI 2022-01-24 18:19:00 25.41 kg/m2 [facility] Oxygen saturation in 2022-01-24 18:19:00 97 /min [facility] Arterial blood by [facility] Pulse oximetry Branch Respiratory rate 2021-11-22 18:55:00 20 /min [facility] Procedures Procedure Date / Time Performing Clinician Source Performed SARS-COV-2 COVID-19 2022-03-31 20:06:29 Sarita Santacruz [facility] JASPER-SUCROSE VACCINE [address] [place] [address] YRS+, BIVALENT 0.3ML, IM, (PFIZER ROGER TOP BOOSTER) PNEUMOCOCCAL 20 CONJUGATE 2022-03-31 20:01:27 Sarita Santacruz [facility] (PREVNAR 20) VACCINE [facility] REFERRAL- 2022-03-31 05:01:00 Doctor Unassigned, [facility] REQUEST/RESPONSE [facility] INSURANCE CORRESPONDENCE 2022-03-10 05:01:00 Doctor Unassrebeka, [facility] CBC WITH DIFF 2022-01-24 21:07:00 Sarita Santacruz [place] [facility] GLYCOSYLATED HEMOGLOBIN 2022-01-24 21:07:00 Sarita Santacruz [facility] (A1C) [facility] COMP. METABOLIC PANEL 2022-01-24 21:07:00 Sarita Santacruz [facility] ([id number]) Medical Branch IONIZED CALCIUM 2022-01-24 21:07[facility] 2022-01-24 21:07:00 Vonda [facility] HORMONE [facility] THYROXINE, TOTAL 2022-01-24 21:07:00 Vonda [facility] CBC WITH DIFF 2022-01-24 21:07:00 Vonda [facility] URINE CULTURE 2022-01-24 19:17[facility]22-[facility]-24 [facility]22-01-24 [facility] 2022-01-24 19:00:00 [facility] Plan of Care Planned Activity Planned Date Details Comments Source Future Scheduled 2022-05-31 COVID-19 VACCINE (#1) [facility] Test 07:02:30 [code = COVID-19 VACCINE (#1)] Future Scheduled 2022-05-31 Pneumococcal Vaccine: [facility] Test 07:02:30 Pediatrics (0 to 5 Years) and At-Risk Patients (6 to 64 Years) (1 - PCV) [code = Pneumococcal Vaccine: Pediatrics (0 to 5 Years) and At-Risk Patients (6 to 64 Years) (1 - PCV)] Future Scheduled 2022-05-31 DIABETES: RETINAL EYE [facility] Test 07:02:30 EXAM [code = DIABETES: RETINAL EYE EXAM] Future Scheduled 2022-05-31 DIABETIC FOOT EXAM [facility] Test 07:02:30 [code = DIABETIC FOOT EXAM] Future Scheduled 2022-05-31 [facility] Test 07:02:30 [code = URINE MICROALBUMIN] Future Scheduled 2022-05-31 Hepatitis C screening [facility] Test 07:02:30 (procedure) [code = 186273043] Future Scheduled 2022-05-31 Screening for [facility] Test 07:02:30 malignant neoplasm of cervix (procedure) [code = 158405974] Future Scheduled 2022-05-31 BREAST CANCER [facility] Test 07:02:30 SCREENING [code = BREAST CANCER SCREENING] Future Scheduled 2022-05-31 INFLUENZA VACCINE [facility] Test 07:02:30 [code = INFLUENZA VACCINE] Future Scheduled 2022-05-31 COVID-19 VACCINE (#1) [facility] Test 07:02:30 [code = COVID-19 VACCINE (#1)] Future Scheduled 2022-05-31 Pneumococcal Vaccine: [facility] Test 07:02:30 Pediatrics (0 to 5 Years) and At-Risk Patients (6 to 64 Years) (1 - PCV) [code = Pneumococcal Vaccine: Pediatrics (0 to 5 Years) and At-Risk Patients (6 to 64 Years) (1 - PCV)] Future Scheduled 2022-05-31 DIABETES: RETINAL EYE [facility] Test 07:02:30 EXAM [code = DIABETES: RETINAL EYE EXAM] Future Scheduled 2022-05-31 DIABETIC FOOT EXAM [facility] Test 07:02:30 [code = DIABETIC FOOT EXAM] Future Scheduled 2022-05-31 URINE MICROALBUMIN [facility] Test 07:02:30 [code = URINE MICROALBUMIN] Future Scheduled 2022-05-31 Hepatitis C screening [facility] Test 07:02:30 (procedure) [code = [id number]] Future Scheduled 2022-05-31 Screening for [facility] Test 07:02:30 malignant neoplasm of cervix (procedure) [code = 544136046] Future Scheduled 2022-05-31 BREAST CANCER [facility] Test 07:02:30 SCREENING [code = BREAST CANCER SCREENING] Future Scheduled 2022-05-31 INFLUENZA VACCINE [facility] Test 07:02:30 [code = INFLUENZA VACCINE] Future Scheduled 2022-03-08 IMM [facility] Test 00:00:00 (>/= 19 yrs) [code = IMM Influenza Seasonal (>/= 19 yrs)] Future Scheduled 2022-03-08 IMM Influenza [facility] Test 00:00:00 (>/= 19 yrs) [code = IMM Influenza Seasonal (>/= 19 yrs)] Future Scheduled 2018 Breast [facility] Test 00:00:00 (Yearly) [code = Breast Cancer Scrn (Yearly)] Future Scheduled 2018 Breast Cancer [facility] Test 00:00:00 (Yearly) [code = Breast Cancer Scrn (Yearly)] Future Scheduled 2008 [facility]:00 malignant neoplasm of cervix (procedure) [code = 785541303] Future Scheduled 2008 [facility] Test 00:00:00 malignant neoplasm of cervix (procedure) [code = 788475169] Future Scheduled [facility] 00:00:00 malignant neoplasm of cervix (procedure) [code = 247163441] Future Scheduled 2008 [facility] Test 00:00:00 malignant neoplasm of cervix (procedure) [code = 512583885] Future Scheduled 1979-02-07 COVID-19 Vaccine (#1) [facility] Test 00:00:00 [code = COVID-19 Vaccine (#1)] Future Scheduled 1979-02-07 COVID-19 Vaccine (#1) [facility] Test 00:00:00 [code = COVID-19 Vaccine (#1)] Encounters Start End Encounter Admission Attending Care Care Encounter Source Date/Time Date/Time Type Type Clinicians Facility Department ID 2022-07-03 2022-07-03 Outpatient R VONDA [facility] [id number] Univers 14:20:00 14:20:[address] [facility] [place] [place] 2022-06-09 2022-06-09 Cherry Santacruz [facility] [id number] Univers 00:00:00 00:00:00 [id number] [id number] [facility] [id number] [address] E CLINIC 2022-05-29 2022-05-29 Outpatient R VONDA [facility] [id number] Univers 10:40:00 10:40:[address] [facility] [place] [place] 2022-05-26 2022-05-26 Outpatient R ALICIA [facility] [id number] Univers 00:00:00 00:00:[address] [facility] [place] [place] 2022-05-21 2022-05-21 Patient Rima [facility] [id number] Univers 00:00:00 00:00:00 Secure Msg [facility] [id number] ity of [place] [id number] Jon as STEPHANIE?BLEA [phone] Hi dicgarrick [address] MEDICAL OFFICE [facility] [address] 2022-05-21 2022-05-21 [facility] [id number] Univers 00:00:00 00:00:00 Sarita HEALTH [id number] ity of [place] [id number] Jon as STEPHANIE?BLEA [phone] [address] OFFICE [facility] [address] [address] 2022-05-19 2022-05-19 [facility] [id number] Univers 00:00:00 00:00:00 Sarita LEAGUE [id number] ity of [facility] [id number] [id number] Hi dicdc AND 52 [place] [address] [facility] 2022-05-16 2022-05-16 [facility] 1.2.840.114 [id number] Univers 00:00:00 00:00:00 Sarita LEAGUE 350.1.13.10 ity of [facility] [place].2.[place] [phone] Hi dicdc AND [address] [place] [address] [facility] 2022-05-06 2022-05-06 Outpatient R NEETU [facility] [id number] Univers 14:30:00 14:30:00 WENTONG ity [facility] 2022-05-06 2022-05-06 Outpatient R NEETU [facility] [id number] Univers 14:30:00 14:30:00 WENTONG ity [facility] 2022-05-06 2022-05-06 Outpatient R NEETU [facility] [id number] Univers 14:30:00 14:30:00 WENTONG ity [facility] 2022-05-06 2022-05-06 Outpatient R NEETU [facility] [id number] Univers 14:30:00 14:30:00 WENTONG ity [facility] 2022-04-30 2022-04-30 [facility] 1.2.840.114 [id number] Univers 00:00:00 00:00:00 Alexsandra FIERROROSEMARY 350.1.13.10 it y of [facility] 4.2.7.2.686 [place] PEDIATRIC [id number] [address] 2022-04-30 2022-04-30 Refill [facility] 1.2.840.114 [id number] Univers 00:00:00 00:00:00 [facility] 350.1.13.10 ity of [place] 4.2.7.2.686 Jon as STEPHANIE?BLEA [phone] [address] OFFICE [facility] 2022-04-22 2022-04-22 Patient [facility] 1.2.840.114 [id number] Univers 00:00:00 00:00:00 Secure Msg [facility] 350.1.13.10 ity of [place] 4.2.7.2.686 Jon as STEPHANIE?BLEA [phone] [address] OFFICE [facility] 2022-04-21 2022-04-21 Telephone [facility] 1.2.602.939 [id number] Univers 00:00:00 00:00:00 [facility] 350.1.13.10 ity of [place] 4.2.7.2.686 Jon as STEPHANIE?BLEA [id number] [address] OFFICE [facility] 2022-04-14 2022-04-14 Outpatient Abel VARGAS [facility] [id number] Univers 00:00:00 00:00:00 POLLY ity [facility] 2022-04-09 2022-04-09 Telephone [facility] 1.2.673.055 [id number] Univers 00:00:00 00:00:00 [facility] 350.1.13.10 ity of [place] 4.2.7.2.686 Jon as STEPHANIE?BLEA [phone] [address] OFFICE [facility] 2022-04-08 2022-04-08 [facility] 1.2.840.114 [id number] Univers 00:00:00 00:00:00 Secure [facility] 350.1.13.10 ity of [place] 4.2.7.2.686 Jon as STEPHANIE?BLEA [phone] Hi migue [address] MEDICAL OFFICE [facility] 2022-04-08 2022-04-08 [facility] 1.2.840.114 [id number] Univers 00:00:00 00:00:00 Sarita PENA 350.1.13.10 ity of [facility] 4.2.[place].2.[place] [id number] Hi dicdc AND [address] [place] [address] [facility] 2022-04-01 2022-04-01 Refrafia Yanrera [facility] 1.2.840.114 [id number] Univers 00:00:00 00:00:00 Alexsandra JEAN 350.1.13.10 it y of [facility] 4.2.7.2.686 [place] as PEDIATRIC [phone] Me dicdc AND [address] [place] [address] E CLINIC 2022-04-01 2022-04-01 Patient Vonda [facility] 1.2.840.114 [id number] Univers 00:00:00 00:00:00 Secure [facility] 350.1.13.10 ity of [place] 4.2.7.2.686 Jon as STEPHANIE?BLEA [phone] [address] OFFICE [facility] 2022-03-31 2022-03-31 Outpatient R VONDA [facility] [id number] Univers 14:20:00 16:03:25 [facility] [place] [facility] 2022-03-31 2022-03-31 [facility] 1.2.840.114 [id number] Univers 14:20:00 16:03:25 Visit [facility] 350.1.13.10 ity of [place] 4.2.7.2.686 Jon as STEPHANIE?BLEA [id number] [address] OFFICE [facility] 2022-03-31 2022-03-31 Orders Doctor JONES 1.2.840.114 [id number] Univers 00:00:00 00:00:00 Only Unassigned, MAURO 350.1.13.10 ity of [place] [facility] 4.2.7.2.686 Jon as [id number] [address] 2022-03-27 2022-03-27 Outpatient R VONDA [facility] [id number] Univers 14:20:00 14:20:00 SARITA mandy [facility] 2022-03-21 2022-03-21 Outpatient R TOBY [facility] [id number] Univers 14:00:00 14:00:00 SYDNEY mandy [facility] 2022-03-17 2022-03-17 [facility] 1.2.840.114 [id number] Univers 00:00:00 00:00:00 Secure [facility] 350.1.13.10 ity of [place] 4.2.7.2.686 Jon as STEPHANIE?BLEA [phone] [address] MEDICAL OFFICE [facility]ILDING 2022-03-11 2022-03-11 [facility] 1.2.840.114 [id number] Univers 00:00:00 00:00:00 Sarita PENA 350.1.13.10 ity of [facility] [place].2.7.2.[place] [phone] [address] E CLINIC 2022-03-10 2022-03-10 Orders Doctor ROBERT 1.2.840.114 [id number] Univers 00:00:00 00:00:00 Only Unassigned, MAURO 350.1.13.10 ity of [place] [facility] 4.2.7.2.686 Jon as [phone] [address] 2022-03-05 2022-03-05 Outpatient R ALICIA [facility] [id number] Univers 14:30:00 15:25:35 POLLY mandy [facility] 2022-03-05 2022-03-05 [facility] 1.2.795.707 [id number] Univers 14:30:00 15:25:35 Visit Polly WILLIAM 350.1.13.10 i ty of [place]7.2.[place] [phone] Hi dical [facility] [address] BUILDING 2022-02-28 2022-02-28 Outpatient R NILA [facility] [id number] Univers 12:45:00 12:45:00 [facility] [place] [facility] 2022-02-17 2022-02-17 Outpatient R ALICIA, [facility] [id number] Univers 14:30:00 14:30:[address] [facility] [place] [place] 2022-02-15 2022-02-15 [facility] 1.2.840.114 [id number] Univers 00:00:00 00:00:00 Alexsandra PENA 350.1.13.10 it y of [facility] 4.2.7.2.686 Jon [address] PEDIATRIC [phone] [facility] AND [address] [facility] 2022-02-12 2022-02-12 Outpatient R SAM [facility] [id number] Univers 14:00:00 14:00:[address] 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2.686 Jon as STEPHANIE?BLEA [id number] Hi migue [facility] [address] [place] MEDICAL OFFICE [facility] 2022-01-24 2022-01-24 Outpatient R KLEY, [facility] [id number] Univers 13:00:00 14:06:30 CREOLA ity [facility] 2022-01-24 2022-01-24 Outpatient R KLEY, [facility] [id number] Univers 13:00:00 14:06:30 CREOLA ity [facility] 2022-01-24 2022-01-24 Outpatient R KLEY, [facility] [id number] Univers 13:00:00 14:06:30 CREOLA ity [facility] 2022-01-24 2022-01-24 Outpatient R KLEY, [facility] [id number] Univers 13:00:00 14:06:30 [facility] 2022-01-24 2022-01-24 Patient Kley, 1.2.840.0 [id number] Univers 00:00:00 00:00:00 Secure Msg [place] 87905.1.1 ity of 3.104.2.7 [place] .3.839614 Medica l .[address] [place] 2022-01-24 2022-01-24 Travel 1.2.840.1 1.2.733.186 [id number] [id number] Univers 00:00:00 00:00:00 55333.1.1 350.1.13.10 ity of 3.104.2.7 4.[place]7.3.698 [place] .3.452491 084.8 Medica l .8 [place] 2022-01-20 2022-01-20 Patient Doctor 1.2.840.4 [id number] Univers 00:00:00 00:00:00 Secure g Unassigned, 17148.1.1 ity of [place] 3.104.2.7 [place] .3.570776 Medica l .[place] 2022-01-17 2022-01-17 Outpatient R VONDA, [facility] [id number] Univers 11:00:00 11:00:00 [facility] [place] [facility] 2022-01-17 2022-01-17 [facility] 1.2.840.114 [id number] Univers 00:00:00 00:00:00 Alexsandra PENA 350.1.13.10 it y of [facility] 4.2.7.2.686 Jon as PEDIATRIC [phone] Hi dical AND [address] [place] [address] 2022-01-17 2022-01-17 Refill Seng, 1.2.840.7 [id number] 6197 Univers 00:00:00 00:00:00 Alexsandra 71797.1.1 ity of [place] 3.104.2.7 [place] .3.497661 Medica l .[place] 2022-01-16 2022-01-16 Outpatient Abel [facility] [id number] Univers 10:15:00 10:15:[address] [facility] [place] 2022-01-14 2022-01-14 Travel 1.2.840.1 1.2.042.556 [id number] [id number] Univers 00:00:00 00:00:00 94917.1.1 350.1.13.10 ity of 3.104.2.7 4.[place].7.3.698 [place] .3.530582 084.8 Medica l .8 [place] 2022-01-14 2022-01-14 [facility] 1.2.840.114 [id number] Univers 00:00:00 00:00:00 Alexsandra PENA 350.1.13.10 it y of [facility] 4.2.7.2.686 Jon as PEDIATRIC [phone] Me dical AND [address] [place] [address] E CLINIC 2022-01-14 2022-01-14 Travel 1.2.840.1 1.2.323.639 5091 [id number] Univers 00:00:00 00:00:00 09725.1.1 350.1.13.10 ity of 3.104.2.7 4.[place].7.3.698 [place] .3.509022 084.8 Medica l .8 [place] 2022-01-14 2022-01-14 Refill [place], 1.2.840.0 [id number] 9571 8060 Univers 00:00:00 00:00:00 Alexsandra 91197.1.1 ity of [place] 3.104.2.7 [place] .3.224125 Medica l .8 [place] 2022-01-08 2022-01-08 Refill [place], 1.2.840.9 [id number] 8094 Univers 00:00:00 00:00:00 Alexsandra 32654.1.1 ity of [place] 3.104.2.7 [place] .3.708229 Medica l .8 [place] 2022-01-08 2022-01-08 Refill [place], 1.2.840.5 [id number] 8094 Univers 00:00:00 00:00:00 Alexsandra 73307.1.1 ity of [place] 3.104.2.7 [place] .3.298232 Medica l .8 [place] 2022-01-07 2022-01-07 Outpatient Abel GUY [facility] [id number] Univers 16:15:00 16:15:00 LAKEISHA galvan [facility] 2021-12-27 2021-12-27 Outpatient Abel [facility] [id number] Univers 15:00:00 15:00:00 GABRIELA galvan [facility] 2021-12-25 2021-12-25 Outpatient Abel GUY [facility] [id number] Univers 08:15:00 08:15:00 LAKEISHA galvan [facility] 2021-12-18 2021-12-18 Outpatient Abel [facility] [id number] Univers 14:15:00 14:15:00 AISHAT ity of [facility] 2021-12-12 2021-12-12 Refill [place], 1.2.840.2 [id number] Univers 00:00:00 00:00:00 Alexsandra 88044.1.1 ity of [place] 3.104.2.7 [place] .3.127846 Medica l .[facility] [place] 2021-12-12 2021-12-12 Refill [place], 1.2.840.1 [id number] [id number] Univers 00:00:00 00:00:00 Alexsandra 63085.1.1 ity of [place] 3.104.2.7 [place] .3.264990 Medica l .[facility] [place] 2021-12-04 2021-12-04 Patient Doctor 1.2.840.9 [id number] Univers 00:00:00 00:00:00 Secure Msg Unassigned, 50226.1.1 ity of [place] 3.104.2.7 [place] .3.853306 Medica l .[facility] [place] 2021-12-04 2021-12-04 Patient Doctor 1.2.840.9 [id number] Univers 00:00:00 00:00:00 Secure Msg Unassigned, 80129.1.1 ity of [place] 3.104.2.7 [place] .3.184359 Medica l .[place] 2021-12-03 2021-12-03 Outpatient Abel ELLSWORTH [facility] [id number] Univers 09:00:00 09:00:00 ALEXSANDRA ity of [facility] 2021-11-22 2021-11-22 Outpatient Abel MCFADDEN [facility] [id number] Univers 13:45:00 14:37:39 DEBORAH ity [facility] 2021-11-22 2021-11-22 Outpatient Abel MCFADDEN [facility] [id number] Univers 13:45:00 13:45:00 DEBORAH itarsenio [facility] 2021-11-22 2021-11-22 Outpatient Abel ELLSWORTH [facility] [id number] Univers 13:00:00 13:00:00 ALEXSANDRA ity of [facility] 2021-11-21 2021-11-21 Travel 1.2.840.1 1.2.698.829 [id number] [id number] Univers 00:00:00 00:00:00 53733.1.1 350.1.13.10 ity of 3.104.2.7 4.[place].7.3.698 [place] .3.881756 084.8 Medica l .8 [place] 2021-11-21 2021-11-21 Travel 1.2.840.1 1.2.166.544 6551 5981 Univers 00:00:00 00:00:00 55386.1.1 350.1.13.10 ity of 3.104.2.7 4.2.7.3.698 [place] .3.494122 084.8 Medica l .8 [place] 2021-11-18 2021-11-18 Outpatient Abel VARGAS [facility] [id number] Univers 13:45:00 13:45:00 AISHAT ity of [facility] 2021-11-07 2021-11-07 Patient [place], 1.2.840.9 [id number] Univers 00:00:00 00:00:00 Secure Msg Alexsandra 44733.1.1 i ty of [place] 3.104.2.7 [place] .3.183336 Medica l .8 [place] 2021-10-15 2021-10-15 Telephone Seng, 1.2.840.0 [id number] Univers 00:00:00 00:00:00 Alexsandra 44068.1.1 ity of [place] 3.104.2.7 [place] .3.635688 Medica l .[place] 2021-10-14 2021-10-14 Telephone Seng, 1.2.840.7 [id number] Univers 00:00:00 00:00:00 Alexsandra 10601.1.1 ity of [place] 3.104.2.7 [place] .3.581927 Medica l .8 [place] 2021-10-11 2021-10-11 Office [place], 1.2.840.6 [id number] Univers 10:00:00 10:20:00 Visit Alexsandra 11477.1.1 ity of [place] 3.104.2.7 [place] .3.303614 Medica l .[place] 2021-10-11 2021-10-11 Outpatient R SENG, [facility] [id number] Univers 10:00:00 10:00:00 ALEXSANDRA ity [facility] 2021-10-11 2021-10-11 Outpatient R ELLSWORTH, [facility] [id number] Univers 10:00:00 10:00:00 ALEXSANDRA ity [facility] 2021-10-11 2021-10-11 Outpatient R SENG, [facility] [id number] Univers 10:00:00 10:00:00 ALEXSANDRA ity [facility] 2021-10-09 2021-10-09 Travel 1.2.840.1 1.2.146.174 4560 [id number] Univers 00:00:00 00:00:00 87033.1.1 350.1.13.10 ity of 3.104.2.7 4.[place].7.3.698 [place] .3.878865 084.8 Medica l .8 [place] 2021-10-08 2021-10-08 Refill [place], 1.2.840.1 [id number] 0962 Univers 00:00:00 00:00:00 Alexsandra 94090.1.1 ity of [place] 3.104.2.7 [place] .3.389536 Medica l .[place] 2021-10-08 2021-10-08 Refill [place], 1.2.840.7 [id number] 0962 Univers 00:00:00 00:00:00 Alexsandra 35589.1.1 ity of [place] 3.104.2.7 [place] .3.073273 Medica l .[place] 2021-09-30 2021-09-30 Outpatient Abel ROPER [facility] [id number] Univers 14:00:00 14:00:00 MONIQUE ity [facility] 2021-09-11 2021-09-11 Outpatient R ADAM [facility] [id number] Univers 14:00:00 14:00:00 NETO ity of [facility] 2021-09-05 2021-09-05 Patient Doctor 1.2.840.6 [id number] Univers 00:00:00 00:00:00 Secure Msg Unassigned, 85710.1.1 ity of [place] 3.104.2.7 [place] .3.431816 Medica l .8 [place] 2021-09-05 2021-09-05 Patient Doctor 1.2.840.9 [id number] Univers 00:00:00 00:00:00 Secure Msg Unassigned, 80186.1.1 ity of [place] 3.104.2.7 [place] .3.091927 Medica l .8 [place] 2021-09-04 2021-09-04 Refill [place], 1.2.840.7 [id number] 5046 Univers 00:00:00 00:00:00 Alexsandra 87656.1.1 ity of [place] 3.104.2.7 [place] .3.193025 Medica l .8 [place] 2021-09-04 2021-09-04 Refill [place], 1.2.840.2 [id number] 9234 5046 Univers 00:00:00 00:00:00 Alexsandra 95626.1.1 ity of [place] 3.104.2.7 [place] .3.839777 Medica l .[place] 2021-08-29 2021-08-29 Outpatient R PATY BAKER [facility] [id number] Univers 09:15:00 09:57:10 ity of [facility] 2021-08-29 2021-08-29 Outpatient R PATY BAKER [facility] [id number] Univers 09:15:00 09:15:00 ity of [facility] 2021-08-29 2021-08-29 Travel 1.2.840.1 1.2.067.784 0848 [id number] Univers 00:00:00 00:00:00 56848.1.1 350.1.13.10 ity of 3.104.2.7 4.[place].7.3.698 [place] .3.836578 084.8 Medica l .[facility] [place] 2021-08-29 2021-08-29 Travel 1.2.840.1 1.2.057.154 [id number] 4916 [facility] 00:00:00 00:00:00 49072.1.1 350.1.13.10 ity of 3.104.2.7 4.2.7.3.698 [place] .3.139247 084.8 Medica l .8 [place] 2021-08-29 2021-08-29 Travel 1.2.840.1 1.2.786.878 5856 4916 [facility] 00:00:00 00:00:00 31696.1.1 350.1.13.10 ity of 3.104.2.7 4.2.7.3.698 [place] .3.744124 084.8 Medica l .8 [place] 2021-08-08 2021-08-08 Outpatient R PATY BAKER [facility] [id number] [facility] 10:00:00 10:00:00 ity of [facility] 2021-08-06 2021-08-06 Travel 1.2.840.1 1.2.059.847 1772 3705 [facility] 00:00:00 00:00:00 93778.1.1 350.1.13.10 ity of 3.104.2.7 4.2.7.3.698 [place] .3.349921 084.8 Medica l .8 [place] 2021-08-06 2021-08-06 Travel 1.2.840.1 1.2.658.260 2496 3705 [facility] 00:00:00 00:00:00 46860.1.1 350.1.13.10 ity of 3.104.2.7 4.2.7.3.698 [place] .3.122733 084.8 Medica l .8 [place] 2021-08-06 2021-08-06 Travel 1.2.840.1 1.2.739.757 8921 3705 Univers 00:00:00 00:00:00 56542.1.1 350.1.13.10 ity of 3.104.2.7 4.2.7.3.698 [place] .3.353639 084.8 Medica l .8 [place] 2021-08-04 2021-08-04 Refill Doctor 1.2.840.4 [id number] Univers 00:00:00 00:00:00 Unassigned, 00472.1.1 ity of [place] 3.104.2.7 [place] .3.361727 Medica l .8 [facility] 2021-08-04 2021-08-04 Refill [place], 1.2.840.1 [id number] 9157 6341 Univers 00:00:00 00:00:00 Alexsandra 49893.1.1 ity of [place] 3.104.2.7 [place] .3.629409 Medica l .8 [facility] 2021-08-04 2021-08-04 Refill [place], 1.2.840.0 [id number] 9157 6140 Univers 00:00:00 00:00:00 Alexsandra 42757.1.1 ity of [place] 3.104.2.7 [place] .3.453934 Medica l .8 [facility] 2021-08-04 2021-08-04 Refill Doctor 1.2.840.1 [id number] Univers 00:00:00 00:00:00 Unassigned, 73159.1.1 ity of [place] 3.104.2.7 [place] .3.145528 Medica l .8 [facility] 2021-08-04 2021-08-04 Refill [place], 1.2.840.2 [id number] 9157 6341 Univers 00:00:00 00:00:00 Alexsandra 67327.1.1 ity of [place] 3.104.2.7 [place] .3.950956 Medica l .8 [facility] 2021-08-04 2021-08-04 Refill Doctor 1.2.840.0 [id number] 340 Univers 00:00:00 00:00:00 Unassigned, 56517.1.1 ity of [place] 3.104.2.7 [place] .3.236878 Medica l .8 [facility] 2021-08-04 2021-08-04 Refill [place], 1.2.840.4 [id number] 9157 6140 Univers 00:00:00 00:00:00 Alexsandra 54248.1.1 ity of [place] 3.104.2.7 [place] .3.034760 Medica l .8 [facility] 2021-08-04 2021-08-04 Refill Doctor 1.2.840.8 [id number] 139 Univers 00:00:00 00:00:00 Unassigned, 22083.1.1 ity of [place] 3.104.2.7 [place] .3.922539 Medica l .8 [facility] 2021-08-04 2021-08-04 Refill [place], 1.2.840.3 [id number] 9157 6341 Univers 00:00:00 00:00:00 Alexsandra 29567.1.1 ity of [place] 3.104.2.7 [place] .3.000741 Medica l .8 [facility] 2021-08-04 2021-08-04 Refill Doctor 1.2.840.0 [id number] 340 Univers 00:00:00 00:00:00 Unassigned, 16782.1.1 ity of [place] 3.104.2.7 [place] .3.019305 Medica l .8 [facility] 2021-08-04 2021-08-04 Refill [place], 1.2.840.8 [id number] 6140 Univers 00:00:00 00:00:00 Alexsandra 77469.1.1 ity of [place] 3.104.2.7 [place] .3.227663 Medica l .8 [facility] 2021-08-04 2021-08-04 Refill Doctor 1.2.840.1 [id number] 139 Univers 00:00:00 00:00:00 Unassigned, 81851.1.1 ity of [place] 3.104.2.7 [place] .3.283328 Medica l .8 [facility] 2021-07-19 2021-07-19 Refill [place], 1.2.840.7 [id number] 9121 3152 Univers 00:00:00 00:00:00 Alexsandra 79907.1.1 ity of [place] 3.104.2.7 [place] .3.439305 Medica l .8 [facility] 2021-07-19 2021-07-19 Refill [place], 1.2.840.0 [id number] 9121 3152 Univers 00:00:00 00:00:00 Alexsandra 26929.1.1 ity of [place] 3.104.2.7 [place] .3.636449 Medica l .8 Branch 2021-07-19 2021-07-19 Refill [place], 1.2.840.5 [id number] 9121 3152 Univers 00:00:00 00:00:00 Alexsandra 44721.1.1 ity of [place] 3.104.2.7 [place] .3.917525 Medica l .8 Branch 2021-07-17 2021-07-17 Office [place], [facility] 1.2.840.114 [id number] Univers 11:00:00 11:20:00 Visit Alexsandra PENA 350.1.13.10 it y of [facility] 4.2.7.2.686 Jon as PEDIATRIC [phone] Hi dical AND [address] [facility] 2021-07-17 2021-07-17 Office [place], 1.2.840.1 [id number] 9112 7481 Univers 11:00:00 11:20:00 Visit Alexsandra 02398.1.1 ity of [place] 3.104.2.7 [place] .3.132338 Medica l .8 Branch 2021-07-17 2021-07-17 Office [place], 1.2.840.9 [id number] 9112 7481 Univers 11:00:00 11:20:00 Visit Alexsandra 78526.1.1 ity of [place] 3.104.2.7 [place] .3.454072 Medica l .8 Branch 2021-07-17 2021-07-17 Office [place], 1.2.840.2 [id number] 9112 7481 Univers 11:00:00 11:20:00 Visit Alexsandra 30221.1.1 ity of [place] 3.104.2.7 [place] .3.701279 Medica l .8 Branch 2021-07-17 2021-07-17 Giselle R SENG, [facility] [id number] Univers 11:00:00 11:00:00 ALEXSANDRA ity of [facility] 2021-07-17 2021-07-17 Telephone [place], 1.2.840.7 [id number] Univers 00:00:00 00:00:00 Alexsandra 08168.1.1 ity of [place] 3.104.2.7 [place] .3.964853 Medica l .8 Branch 2021-07-17 2021-07-17 Travel 1.2.840.1 1.2.014.478 8903 7656 Univers 00:00:00 00:00:00 96589.1.1 350.1.13.10 ity of 3.104.2.[place] 4[place]3.698 [place] .3.463066 084.8 Medica l .8 Branch 2021-07-17 2021-07-17 Telephone [place], 1.2.840.3 [id number] Univers 00:00:00 00:00:00 Alexsandra 84977.1.1 ity of [place] 3.104.2.7 [place] .3.270127 Medica l .8 Branch 2021-07-17 2021-07-17 Travel 1.2.840.1 1.2.049.505 0078 7656 Univers 00:00:00 00:00:00 61687.1.1 350.1.13.10 ity of 3.104.2.7 4.[place]7.3.698 [place] .3.863326 084.8 Medica l .8 Branch 2021-07-17 2021-07-17 Telephone [place], 1.2.840.4 [id number] Univers 00:00:00 00:00:00 Alexsandra 36050.1.1 ity of [place] 3.104.2.7 [place] .3.810718 Medica l .8 Branch 2021-07-17 2021-07-17 Travel 1.2.840.1 1.2.727.320 6594 7656 Univers 00:00:00 00:00:00 81256.1.1 350.1.13.10 ity of 3.104.2.7 4.[place]7.3.698 [place] .3.213618 084.8 Medica l .8 Branch 2021-07-15 2021-07-15 Travel 1.2.840.1 1.2.656.777 6444 4694 Univers 00:00:00 00:00:00 90989.1.1 350.1.13.10 ity of 3.104.2.7 4.2[place]7.3.698 [place] .3.995946 084.8 Medica l .8 Branch 2021-07-15 2021-07-15 Travel 1.2.840.1 1.2.681.870 2330 4694 Univers 00:00:00 00:00:00 69948.1.1 350.1.13.10 ity of 3.104.2.7 4.[place]7.3.698 [place] .3.042436 084.8 Medica l .8 Branch 2021-07-15 2021-07-15 Travel 1.2.840.1 1.2.661.263 3497 4694 Univers 00:00:00 00:00:00 51523.1.1 350.1.13.10 ity of 3.104.2.7 4.[place]7.3.698 [place] .3.178703 084.8 Medica l .8 [place] 2021-07-09 2021-07-09 Outpatient Abel ELLSWORTH NDGREGORY [facility] [id number] Univers 14:20:00 14:20:00 ALEXSANDRA galvan of [facility] 2021-07-04 2021-07-04 Cherry [place] NDGREGORY 1.2.840.114 [id number] [id number] Univers 00:00:00 00:00:00 Alexsandra PENA 350.1.13.10 it y of [facility] 4.2.7.2.686 Jon as PEDIATRIC [phone] Me dical AND [address] [facility] 2021-07-04 2021-07-04 Telephone [place], 1.2.840.3 [id number] Univers 00:00:00 00:00:00 Alexsandra 65116.1.1 ity of [place] 3.104.2.7 [place] .3.121666 Medica l .8 [place] 2021-07-04 2021-07-04 Telephone [place], 1.2.840.5 [id number] 90 [id number] Univers 00:00:00 00:00:00 Alexsandra 35153.1.1 ity of [place] 3.104.2.7 [place] .3.452064 [facility] [place] 2021-07-03 2021-07-03 Patient Doctor 1.2.840.5 [id number] Univers 00:00:00 00:00:00 Secure Msg Unassigned, 26767.1.1 ity of [place] 3.104.2.7 [place] .3.525050 [facility] [place] 2021-07-03 2021-07-03 Patient Doctor 1.2.840.4 [id number] 83819 649 Univers 00:00:00 00:00:00 Secure Msg Unassigned, 95535.1.1 ity of [place] 3.104.2.7 [place] .3.911026 [facility] [place] 2021-07-03 2021-07-03 Patient Doctor 1.2.840.6 [id number] 649 Univers 00:00:00 00:00:00 Secure Msg Unassigned, 29140.1.1 ity of [place] 3.104.2.7 [place] .3.794153 [facility] [place] 2021-06-29 2021-06-29 Telephone Ell[place], 1.2.840.0 [id number] Univers 00:00:00 00:00:00 Alexsandra 41170.1.1 ity of [place] 3.104.2.7 [place] .3.843474 [facility] [place] 2021-06-29 2021-06-29 Telephone [place], 1.2.840.1 [id number] 90 [id number] Univers 00:00:00 00:00:00 Alexsandra 33962.1.1 ity of [place] 3.104.2.7 [place] .3.219996 [facility] [place] 2021-06-29 2021-06-29 Telephone [place], 1.2.840.5 [id number] Univers 00:00:00 00:00:00 Alexsandra 08481.1.1 ity of [place] 3.104.2.7 [place] .3.007421 [facility] [place] 2021-06-14 2021-06-14 Patient Doctor 1.2.840.9 [id number] 314 Univers 00:00:00 00:00:00 Secure Msg Unassigned, 71037.1.1 ity of [place] 3.104.2.7 [place] .3.112677 [facility] [place] 2021-06-14 2021-06-14 Patient Doctor 1.2.840.3 [id number] 53676 314 Univers 00:00:00 00:00:00 Secure Msg Unassigned, 45048.1.1 ity of [place] 3.104.2.7 [place] .3.364362 [facility] [place] 2021-06-14 2021-06-14 Patient Doctor 1.2.840.2 [id number] [id number] 314 Univers 00:00:00 00:00:00 Secure Msg Unassigned, 12783.1.1 ity of [place] 3.104.2.7 [place] .3.028398 [facility] [place] 2021-06-01 2021-06-01 Refill Marin, 1.2.840.8 [id number] 62622 853 Univers 00:00:00 00:00:00 Miya 59917.1.1 ity of 3.104.2.7 [place] .3.751790 [facility] [place] 2021-06-01 2021-06-01 Refill Marin, 1.2.840.7 [id number] 69782 853 Univers 00:00:00 00:00:00 Miya 36287.1.1 ity of 3.104.2.7 [place] .3.239926 [facility] [place] 2021-05-28 2021-05-28 Patient Doctor 1.2.840.4 [id number] [id number] 558 Univers 00:00:00 00:00:00 Secure Msg Unassigned, 53931.1.1 ity of [place] 3.104.2.7 [place] .3.780637 [facility] [place] 2021-05-28 2021-05-28 Patient Doctor 1.2.840.6 [id number] 558 Univers 00:00:00 00:00:00 Secure Msg Unassigned, 67749.1.1 ity of [place] 3.104.2.7 [place] .3.441513 [facility] [place] 2021-05-20 2021-05-20 Outpatient Abel HORN [facility] [id number] Univers 14:45:00 14:45:00 MARINE galvan of [facility] 2021-05-18 2021-05-18 Outpatient R SALVADOR [facility] [id number] Univers 20:45:00 20:59:51 EKTA [facility] 2021-05-18 2021-05-18 Urgent Unknown, Attending 1.2.840.1 [id number] Univers 20:45:00 20:59:51 Ekta Russ 27999.1.1 ity of 3.104.2.7 [place] .3.193811 [facility] [place] 2021-05-18 2021-05-18 Urgent Unknown, Attending 1.2.840.1 06414 [id number] Univers 20:45:00 20:59:51 Ekta Russ 45568.1.1 ity of 3.104.2.7 [place] .3.899370 [facility] [place] 2021-05-09 2021-05-09 Outpatient R PATY BAKER [facility] [id number] Univers 10:00:00 10:57:06 ity of [facility] 2021-05-09 2021-05-09 Travel 1.2.840.1 1.2.995.128 6981 4239 Univers 00:00:00 00:00:00 25398.1.1 350.1.13.10 ity of 3.104.2.7 [place].3.698 [place] .3.934506 084.8 [facility] [place] 2021-05-09 2021-05-09 Travel 1.2.840.1 1.2.881.356 2688 4239 Univers 00:00:00 00:00:00 28561.1.1 350.1.13.10 ity of 3.104.2.7 4.[place].3.698 [place] .3.557527 084.8 [facility] [place] 2021-05-06 2021-05-06 Refrafia [place], 1.2.840.7 [id number] 8927 0057 Univers 00:00:00 00:00:00 Alexsandra 81419.1.1 ity of [place] 3.104.2.7 [place] .3.572399 [facility] [place] 2021-04-12 2021-04-12 Refill Seng, 1.2.840.1 [id number] 8874 2269 Univers 00:00:00 00:00:00 Alexsandra 26571.1.1 ity of [place] 3.104.2.7 [place] .3.200290 [facility] [place] 2021-04-11 2021-04-11 Outpatient R PATY BAKER [facility] [id number] Univers 08:30:00 08:30:00 ity of [facility] 2021-04-10 2021-04-10 Travel 1.2.840.1 1.2.041.735 6232 2313 Univers 00:00:00 00:00:00 46474.1.1 350.1.13.10 ity of 3.104.2.7 4.[place]7.3.698 [place] .3.133275 084.8 [facility] [place] 2021-04-01 2021-04-01 Travel 1.2.840.1 1.2.193.126 0491 7961 Univers 00:00:00 00:00:00 44151.1.1 350.1.13.10 ity of 3.104.2.7 4.[place].7.3.698 [place] .3.627994 084.8 [facility] [place] 2021-03-22 2021-03-22 Outpatient R ARELY HOPKINS [facility] [id number] Univers 09:15:00 09:15:00 ity of [facility] 2021-03-12 2021-03-12 Patient Doctor 1.2.840.3 [id number] 696 Univers 00:00:00 00:00:00 Secure Msg Unassigned, 89870.1.1 ity of [place] 3.104.2.7 [place] .3.865168 [facility] [place] 2021-03-08 2021-03-08 Patient Doctor 1.2.840.9 [id number] 85058 142 Univers 00:00:00 00:00:00 Secure Msg Unassigned, 60910.1.1 ity of [place] 3.104.2.7 [place] .3.313158 [facility] [place] 2021-03-07 2021-03-07 Outpatient R PATY BAKER [facility] 135 [id number] Univers 08:30:00 08:30:00 ity of [facility] 2021-03-05 2021-03-05 Patient Doctor 1.2.840.9 [id number] 61773 [id number] Univers 00:00:00 00:00:00 Secure Msg Unassigned, 44264.1.1 ity of [place] 3.104.2.7 [place] .3.607981 [facility] [place] 2021-03-01 2021-03-01 Office Seng [facility] 1.2.840.114 24635 080 Univers 14:44:46 15:04:46 Visit Alexsandra PENA 350.1.13.10 it y of [facility] 4.2.7.2.686 Jno as PEDIATRIC [phone] Hi dical AND [address] [facility] 2021-03-01 2021-03-01 Office Seng, 1.2.840.9 [id number] 8733 7080 Univers 14:44:46 15:04:46 Visit Alexsandra 39954.1.1 ity of [place] 3.104.2.7 [place] .3.938253 [facility] [place] 2021-03-01 2021-03-01 Outpatient R SENG, [facility] [id number] Univers 14:40:00 14:40:00 ALEXSANDRA ity of [facility] 2021-02-28 2021-02-28 Refill Doctor 1.2.840.4 [id number] [id number] Univers 00:00:00 00:00:00 Unassigned, 65528.1.1 ity of [place] 3.104.2.7 [place] .3.374251 [facility] [place] 2021-02-28 2021-02-28 Refill Doctor 1.2.840.9 [id number] 58255 567 Univers 00:00:00 00:00:00 Unassigned, 32271.1.1 ity of [place] 3.104.2.7 [place] .3.926305 [facility] [place] 2021-02-28 2021-02-28 Travel 1.2.840.1 1.2.015.235 3279 4039 Univers 00:00:00 00:00:00 27399.1.1 350.1.13.10 ity of 3.104.2.7 [place]7.3.698 [place] .3.206846 084.8 [facility] [place] 2021-02-28 2021-02-28 Refill Doctor 1.2.840.5 [id number] 20749 567 Univers 00:00:00 00:00:00 Unassigned, 92876.1.1 ity of [place] 3.104.2.7 [place] .3.165546 [facility] [place] 2021-02-28 2021-02-28 Refill Doctor 1.2.840.2 [id number] 03319 569 Univers 00:00:00 00:00:00 Unassigned, 55519.1.1 ity of [place] 3.104.2.7 [place] .3.600830 [facility] 2021-02-28 2021-02-28 Travel 1.2.840.1 1.2.859.089 0069 4039 Univers 00:00:00 00:00:00 69007.1.1 350.1.13.10 ity of 3.104.2.7 4.[place].7.3.698 [place] .3.368314 084.8 [facility] [place] 2021-02-16 2021-02-16 Refill [place], 1.2.840.8 [id number] 8731 5078 Univers 00:00:00 00:00:00 Alexsandra 67679.1.1 ity of [place] 3.104.2.7 [place] .3.135432 [facility] 2021-02-16 2021-02-16 Refill [place], 1.2.840.6 [id number] 8731 5078 Univers 00:00:00 00:00:00 Alexsandra 32916.1.1 ity of [place] 3.104.2.7 [place] .3.456620 [facility] 2021-02-01 2021-02-01 Outpatient ARELY LARES [facility] [id number] Univers 10:00:00 10:00:00 ity of [facility] 2021-02-01 2021-02-01 Travel 1.2.840.1 1.2.247.975 1583 2575 Univers 00:00:00 00:00:00 33523.1.1 350.1.13.10 ity of 3.104.2.7 [place].7.3.698 [place] .3.693010 084.8 [facility] [place] 2021-02-01 2021-02-01 Travel 1.2.840.1 1.2.484.569 0885 2575 Univers 00:00:00 00:00:00 19869.1.1 350.1.13.10 ity of 3.104.2.7 4.2.7.3.698 [place] .3.324426 084.8 [facility] 2021-01-30 2021-01-30 Travel 1.2.840.1 1.2.429.082 9305 0552 [facility] 00:00:00 00:00:00 28452.1.1 350.1.13.10 ity of 3.104.2.7 4.[place].7.3.698 [place] .3.969500 084.8 [facility] 2021-01-30 2021-01-30 Travel 1.2.840.1 1.2.782.626 4348 0552 Univers 00:00:00 00:00:00 45426.1.1 350.1.13.10 ity of 3.104.2.7 4.[place].7.3.698 [place] .3.713261 084.8 [facility] [place] 2021-01-21 2021-01-21 Outpatient GCCOVIDV GCCOVIDV 90829 48486 GCCOVID 00:00:00 00:00:00 2020-12-28 2020-12-28 Outpatient ARELY LARES [facility] [id number] Univers 10:00:00 10:00:00 ity of [facility] 2020-12-28 2020-12-28 Travel 1.2.840.1 1.2.890.691 9820 5281 Univers 00:00:00 00:00:00 78970.1.1 350.1.13.10 ity of 3.104.2.7 4.[place].7.3.698 [place] .3.827188 084.8 [facility] [place] 2020-12-14 2020-12-14 Outpatient ARELY LARES [facility] [id number] Univers 10:00:00 10:00:00 ity of [facility] 2020-12-14 2020-12-14 Travel 1.2.840.1 1.2.701.578 1778 9498 Univers 00:00:00 00:00:00 40355.1.1 350.1.13.10 ity of 3.104.2.7 [place].7.3.698 [place] .3.858812 084.8 [facility] [place] 2020-12-11 2020-12-11 Refill [place], 1.2.840.1 [id number] 8555 5495 Univers 00:00:00 00:00:00 Alexsandra 54362.1.1 ity of [place] 3.104.2.7 [place] .3.674920 [facility] [place] 2020-11-30 2020-11-30 [facility] [id number] [id number] Univers 13:30:00 13:30:00 DEBORAH ity of [facility] 2020-11-24 2020-11-24 Nurse Paulina Reese 1.2.840.4 [id number] Univers 00:00:00 00:00:00 Triage 02724.1.1 ity of 3.104.2.7 [place] .3.477001 [facility] [place] 2020-11-13 2020-11-13 Office [place], 1.2.840.2 [id number] 08716 323 Univers 14:35:52 15:05:52 Visit Rajinder Uriarte 35339.1.1 i ty of 3.104.2.7 [place] .3.372688 [facility] [place] 2020-11-13 2020-11-13 [facility] [id number] Univers 14:30:00 14:30:00 RAJINDER ity o f [facility] 2020-11-13 2020-11-13 Travel 1.2.840.1 1.2.677.873 9867 9568 Univers 00:00:00 00:00:00 80776.1.1 350.1.13.10 ity of 3.104.2.7 4.[place].7.3.698 [place] .3.062869 084.8 [facility] [place] 2020-11-10 2020-11-10 Refill Seng, 1.2.840.4 [id number] 8482 9060 Univers 00:00:00 00:00:00 Alexsandra 08726.1.1 ity of [place] 3.104.2.7 [place] .3.918902 [facility] [place] 2020-11-10 2020-11-10 Refill Serge, 1.2.840.8 [id number] 848 06073 Univers 00:00:00 00:00:00 Keshawn 44691.1.1 ity of [place] 3.104.2.7 [place] .3.647398 [facility] [place] 2020-10-31 2020-10-31 [facility] 1032 [id number] Univers 08:45:00 08:45:00 [facility] 2020-10-10 2020-10-10 [facility] 1032 [id number] Univers 09:15:00 09:15:00 [facility] 2020-10-09 2020-10-09 Refill Flash, 1.2.840.1 [id number] 84271 681 Univers 00:00:00 00:00:00 Pepito Landry 71668.1.1 i ty of 3.104.2.7 [place] .3.428007 [facility] [place] 2020-10-01 2020-10-01 Refill Seng, 1.2.840.7 [id number] 8382 5936 Univers 00:00:00 00:00:00 Alexsandra 68608.1.1 ity of [place] 3.104.2.7 [place] .3.459305 [facility] [place] 2020-10-01 2020-10-01 Refill Sereg 1.2.840.5 [id number] 838 [id number] Univers 00:00:00 00:00:00 Albion 71353.1.1 ity of [place] 3.104.2.7 [place] .3.651398 [facility] [place] 2020-10-01 2020-10-01 Patient [place], 1.2.840.0 [id number] 8383 5511 Univers 00:00:00 00:00:00 Secure Msg Alexsandra 55380.1.1 i ty of [place] 3.104.2.7 [place] .3.724221 [facility] [place] 2020-09-27 2020-09-27 Outpatient R NILA, [facility] [id number] Univers 15:45:00 15:45:00 GABE ity of [facility] 2020-09-27 2020-09-27 Travel 1.2.840.1 1.2.064.976 7968 6648 Univers 00:00:00 00:00:00 56380.1.1 350.1.13.10 ity of 3.104.2.7 [place]7.3.698 [place] .3.182126 084.8 [facility] [place] 2020-09-21 2020-09-21 Outpatient R ALONDRA, [facility] 1032 [id number] Univers 15:00:00 15:00:00 CARLEY carlisley [facility] 2020-09-11 2020-09-11 Office Seng, 1.2.840.3 [id number] 8327 3420 Univers 13:04:54 13:24:54 Visit Alexsandra 67724.1.1 ity of [place] 3.104.2.7 [place] .3.186579 [facility] [place] 2020-09-11 2020-09-11 Outpatient R SENG, [facility] [id number] Univers 13:00:00 13:00:00 ALEXSANDRA ity of [facility] 2020-09-10 2020-09-10 Travel 1.2.840.1 1.2.036.016 4346 7674 Univers 00:00:00 00:00:00 04622.1.1 350.1.13.10 ity of 3.104.2.7 [place].7.3.698 [place] .3.375281 084.8 [facility] [place] 2020-09-10 2020-09-10 Patient Doctor 1.2.840.5 [id number] 740 Univers 00:00:00 00:00:00 Secure Msg Unassigned, 91173.1.1 ity of [place] 3.104.2.7 [place] .3.671816 [facility] [place] 2020-09-09 2020-09-09 Refill Flahs, 1.2.840.8 [id number] 71864 614 Univers 00:00:00 00:00:00 Pepito Landry 44772.1.1 i ty of 3.104.2.7 [place] .3.510587 [facility] [place] 2020-09-09 2020-09-09 Refill Serge 1.2.840.9 [id number] 832 71108 Univers 00:00:00 00:00:00 [place] 50532.1.1 ity of [place] 3.104.2.7 [place] .3.453196 [facility] [place] 2020-08-23 2020-08-23 Outpatient R ARELY HOPKINS [facility] [id number] Univers 13:30:00 13:30:00 ity of [facility] 2020-08-22 2020-08-22 Travel 1.2.840.1 1.2.001.141 5717 0434 Univers 00:00:00 00:00:00 80719.1.1 350.1.13.10 ity of 3.104.2.7 [place].7.3.698 [place] .3.969792 084.8 [facility] [place] 2020-08-09 2020-08-09 Refill Serge 1.2.840.2 [id number] 822 [id number] Univers 00:00:00 00:00:00 Keshawn 24100.1.1 ity of [place] 3.104.2.7 [place] .3.227333 [facility] [place] 2020-07-20 2020-07-20 Outpatient Abel BELL [facility] [id number] Univers 09:20:00 09:20:00 RODRÍGUEZ ity of [facility] 2020-07-20 2020-07-20 Imm/Inj Rodríguez Bell 1.2.840.1 [id number] Univers 09:04:42 09:05:00 Visit Nurse, Hernandez Pob Immunization 37703.1.1 ity of 3.104.2.7 [place] .3.310959 [facility] [place] 2020-07-20 2020-07-20 Outpatient GCCOVIDV GCCOVIDV 40462 73531 GCCOVID 00:00:00 00:00:00 V 2020-07-12 2020-07-12 Outpatient ARELY LARES [facility] [id number] Univers 13:30:00 13:30:00 ity of [facility] 2020-07-12 2020-07-12 Travel 1.2.840.1 1.2.879.183 2215 5735 Univers 00:00:00 00:00:00 02640.1.1 350.1.13.10 ity of 3.104.2.[place].7.3.698 [place] .3.717766 084.8 [facility] [place] 2020-07-12 2020-07-12 Orders Doctor 1.2.840.4 [id number] 504 Univers 00:00:00 00:00:00 Only Unassigned, 89338.1.1 ity of [place] 3.104.2.7 [place] .3.463276 [facility] [place] 2020-07-06 2020-07-06 Refill Serge, 1.2.840.7 [id number] 813 [id number] Univers 00:00:00 00:00:00 [place] 62771.1.1 ity of [place] 3.104.2.7 [place] .3.402387 [facility] [place] 2020-07-06 2020-07-06 Refill Zoey 1.2.840.2 [id number] 81689 659 Univers 00:00:00 00:00:00 Wu 71688.1.1 ity of 3.104.2.7 [place] .3.512291 [facility] [place] 2020-06-29 2020-06-29 Outpatient Abel BELL [facility] [id number] Univers 09:20:00 09:20:00 RODRÍGUEZ itarsenio of [facility] 2020-06-29 2020-06-29 Imm/Inj Rodríguez Bell 1.2.840.1 [id number] Univers 09:00:27 09:07:28 Visit Nurse, Hernandez Pob Immunization 65662.1.1 ity of 3.104.2.7 [place] .3.240113 [facility] 2020-06-29 2020-06-29 Outpatient GCCOVIDV GCCOVIDV 51286 07324 GCCOVID 00:00:00 00:00:00 V 2020-06-29 2020-06-29 Jasper Goldman, 1.2.840.0 [id number] 811 16282 Univers 00:00:00 00:00:00 [place] 20132.1.1 ity of [place] 3.104.2.7 [place] .3.796916 [facility] 2020-06-28 2020-06-28 Outpatient Abel OSHEA [facility] [id number] Univers 08:10:00 08:10:00 MARTELL ity of [facility] 2020-06-26 2020-06-26 Patient Tobin, 1.2.840.3 [id number] [id number] Univers 00:00:00 00:00:00 Outreach Martell 41176.1.1 ity of [place] 3.104.2.7 [place] .3.020423 [facility] 2020-06-25 2020-06-25 Jasper Goldman 1.2.840.5 [id number] 810 [id number] Univers 00:00:00 00:00:00 Keshawn 22269.1.1 ity of [place] 3.104.2.7 [place] .3.474807 [facility] 2020-06-21 2020-06-21 Patient Doctor 1.2.840.0 [id number] Univers 00:00:00 00:00:00 Secure Msg Unassigned, 86960.1.1 ity of [place] 3.104.2.7 [place] .3.778642 [facility] 2020-06-20 2020-06-20 Patient Serge, 1.2.840.6 [id number] 809 [id number] Univers 00:00:00 00:00:00 Secure Msg Keshawn 64492.1.1 i ty of [place] 3.104.2.7 [place] .3.806263 [facility] 2020-06-20 2020-06-20 Patient Serge, 1.2.840.6 [id number] 809 [id number] Univers 00:00:00 00:00:00 Secure Msg Keshawn 59260.1.1 i ty of [place] 3.104.2.7 [place] .3.925795 [facility] 2020-06-18 2020-06-18 Office Serge, 1.2.840.1 [id number] 804 [id number] Univers 09:39:03 09:59:03 Visit Keshawn 65437.1.1 ity of [place] 3.104.2.7 [place] .3.192473 [facility] 2020-06-18 2020-06-18 Outpatient R SERGE, [facility] [id number] Univers 09:40:00 09:40:00 KESHAWN ity of [facility] 2020-06-18 2020-06-18 Orders Doctor 1.2.840.4 [id number] 572 Univers 00:00:00 00:00:00 Only Unassigned, 17925.1.1 ity of [place] 3.104.2.7 [place] .3.656319 [facility] 2020-06-12 2020-06-12 Patient Serge, 1.2.840.3 [id number] 806 [id number] Univers 00:00:00 00:00:00 Secure Msg [place] 04579.1.1 i ty of [place] 3.104.2.7 [place] .3.641842 [facility] 2020-06-01 2020-06-01 Refill Serge, 1.2.840.2 [id number] 804 05476 Univers 00:00:00 00:00:00 [place] 40522.1.1 ity of [place] 3.104.2.7 [place] .3.680551 [facility] 2020-05-27 2020-05-27 Refill Serge, 1.2.840.2 [id number] 803 43794 Univers 00:00:00 00:00:00 [place] 81240.1.1 ity of [place] 3.104.2.7 [place] .3.782399 [facility] 2020-05-10 2020-05-10 Outpatient R SERGE, [facility] [id number] Univers 13:20:00 13:20:00 KESHAWN ity of [facility] 2020-05-07 2020-05-07 Patient Doctor 1.2.840.2 [id number] Univers 00:00:00 00:00:00 Secure Msg Unassigned, 61179.1.1 ity of [place] 3.104.2.7 [place] .3.672766 [facility] 2020-04-28 2020-04-28 Jasper Goldman, 1.2.840.3 [id number] 797 64008 Univers 00:00:00 00:00:00 Keshawn 87924.1.1 ity of [place] 3.104.2.7 [place] .3.640830 [facility] 2020-04-23 2020-04-23 Cherry Goldman 1.2.840.7 [id number] Univers 00:00:00 00:00:00 Keshawn 22204.1.1 ity of [place] 3.104.2.7 [place] .3.183889 [facility] 2020-04-23 2020-04-23 Jasper Goldman 1.2.840.4 [id number] 795 50142 Univers 00:00:00 00:00:00 Keshawn 77484.1.1 ity of [place] 3.104.2.7 [place] .3.227306 [facility] 2020-04-21 2020-04-21 Jasper Goldman 1.2.840.0 [id number] 795 46096 Univers 00:00:00 00:00:00 [place] 65489.1.1 ity of [place] 3.104.2.7 [place] .3.875039 [facility] 2020-04-21 2020-04-21 Jasper Goldman 1.2.840.0 [id number] 795 [id number] Univers 00:00:00 00:00:00 Keshawn 23922.1.1 ity of [place] 3.104.2.7 [place] .3.488495 [facility] 2020-04-20 2020-04-20 Jasper Goldman, 1.2.840.8 [id number] 795 68387 Univers 00:00:00 00:00:00 Keshawn 70070.1.1 ity of [facility] 3.104.2.7 [place] .3.551163 [facility] [place] 2020-03-30 2020-03-30 Jasper Goldman [facility] 1.2.207.424 7027 9685 Univers 00:00:00 00:00:00 [place] LEAGUE 350.1.13.10 it y of [facility] 4[place]2.7.2.[place] 153.4593156 Me dical AND [address] [place] [address] 2020-03-20 2020-03-20 Jasper Goldman NDGREGORY 1.2.557.147 3828 0201 Univers 00:00:00 00:00:00 [place]hawn JEAN 350.1.13.10 it y of [facility] 4[place]2.[place]2.[place] [phone] Me dical AND [address] [place] [address] 2020-02-20 2020-02-20 Jasper Goldman NDGREGORY 1.2.669.288 [id number] Univers 00:00:00 00:00:00 Keshawn PENA 350.1.13.10 it y of [facility] [place] [phone] Me dical AND [address] [place] [address] E [facility] 2020-02-20 2020-02-20 NANCY Astorga 1.2.840.114 [id number] Univers 00:00:00 00:00:00 Wu SPECIALTY 350.1.13.10 ity of [facility] [place]2.[place] [phone] Me dical VICTORY 072 [facility] 2020-02-20 2020-02-20 Jasper Goldman NDGREGORY 1.2.467.530 [id number] 00:00:00 00:00:00 Keshawn PENA 350.1.13.10 [facility] 4.2.7.2.686 PEDIATRIC [phone] AND [address] [place] [address] E [facility] 2020-02-20 2020-02-20 NANCY Astorga 1.2.840.114 [id number] 50 00:00:00 00:00:00 Wu SPECIALTY 350.1.13.10 CARE 4.2.7.2.686 CENTER AT [phone] ANDREW Schuler [facility] 2020-02-19 2020-02-19 [facility] 1.2.179.461 [id number] Univers 00:00:00 00:00:00 [place] JEAN 350.1.13.10 it y of [facility] 4[place]7.2.[place] [phone] Me dical AND [address] [place] [address] E [facility] 2020-02-19 2020-02-19 [facility] 1.2.970.574 [id number] 00:00:00 00:00:00 Keshawn LEROSEMARY 350.1.13.10 [facility] 4.2.7.2.686 PEDIATRIC [phone] AND [address] [place] [address] E [facility] 2020-01-19 2020-01-19 [facility] 1.2.079.290 [id number] [id number] Univers 00:00:00 00:00:00 Keshawn JEAN 350.1.13.10 it y of [facility] 4[place]2.[place] [phone] Me dical AND [address] [place] [address] E [facility] 2020-01-19 2020-01-19 [facility] 1.2.751.106 [id number] 00:00:00 00:00:00 [place] LEROSEMARY 350.1.13.10 [facility] 4.2.7.2.686 PEDIATRIC [phone] AND [address] [place] [address] E [facility] 2019-12-30 2019-12-30 Telephone Nurse, Jon 1.2.840.5 [id number] Univers 00:00:00 00:00:00 Urgent 60681.1.1 ity of 3.104.2.7 [place] .3.877080 Medica l .8 [place] 2019-12-27 2019-12-27 Patient Serge 1.2.840.7 [id number] [facility] 00:00:00 00:00:00 Secure Msg Keshawn 53518.1.1 i ty of [place] 3.104.2.7 [place] .3.705826 Medica l .8 Branch 2019-12-27 2019-12-27 Patient Doctor 1.2.840.3 [id number] Univers 00:00:00 00:00:00 Secure Msmarliyn Unassigned, 61174.1.1 ity of [place] 3.104.2.7 [place] .3.997119 Medica l .8 Branch 2019-12-25 2019-12-25 Laboratory Unknown, Attending 1.2.840.1 10 [id number] Univers 16:44:25 16:52:18 Only Nicolas Siddiqui 32205.1.1 ity of Nurse, Jon Urgent 3.104.2.7 [place] .3.126939 Medica l .8 [place] 2019-12-25 2019-12-25 Outpatient R UNKNOWN, [facility] [id number] Univers 16:45:00 16:45:00 ATTENDING ity of [facility] 2019-12-25 2019-12-25 Travel 1.2.840.1 1.2.693.041 [id number] Univers 00:00:00 00:00:00 30012.1.1 350.1.13.10 ity of 3.104.2.7 [place]3.698 [place] .3.511387 084.8 Medica l .8 Branch 2019-12-19 2019-12-19 Jasper Goldman, 1.2.840.5 [id number] Univers 00:00:00 00:00:00 Keshawn 85149.1.1 ity of [place] 3.104.2.7 [place] .3.645409 Medica l .8 Branch 2019-12-09 2019-12-09 Jasper Goldman, 1.2.840.2 [id number] [id number] Univers 00:00:00 00:00:00 [place] 27306.1.1 ity of [place] 3.104.2.7 [place] .3.522204 Medica l .8 Branch 2019-11-24 2019-11-24 Orders Doctor 1.2.840.1 [id number] Univers 00:00:00 00:00:00 Only Unassigned, 64931.1.1 ity of [place] 3.104.2.7 [place] .3.431374 Medica l .8 Branch 2019-11-22 2019-11-22 Jasper Goldman 1.2.840.6 [id number] [id number] Univers 00:00:00 00:00:00 [place] 42461.1.1 ity of [place] 3.104.2.7 [place] .3.281683 Medica l .8 Branch 2019-11-19 2019-11-19 Jasper Goldman 1.2.840.4 [id number] [id number] Univers 00:00:00 00:00:00 [place] 02985.1.1 ity of [place] 3.104.2.7 [place] .3.872982 Medica l .8 Branch 2019-11-16 2019-11-16 Orders Doctor 1.2.840.7 [id number] Univers 00:00:00 00:00:00 Only Unassigned, 68679.1.1 ity of [place] 3.104.2.7 [place] .3.477835 Medica l .8 Branch 2019-11-16 2019-11-16 Telephone Krill, 1.2.840.4 [id number] [id number] Univers 00:00:00 00:00:00 Wu 32795.1.1 ity of 3.104.2.7 [place] .3.880907 Medica l .8 [place] 2019-11-08 2019-11-08 Orders Doctor 1.2.840.3 [id number] Univers 00:00:00 00:00:00 Only Unassigned, 00679.1.1 ity of [place] 3.104.2.7 [place] .3.061148 Medica l .8 Branch 2019-10-19 2019-10-19 Jasper Goldman 1.2.840.4 [id number] Univers 00:00:00 00:00:00 Keshawn 67566.1.1 ity of [place] 3.104.2.7 [place] .3.539161 Medica l .8 Branch 2019-10-19 2019-10-19 Jasper Goldman 1.2.840.7 [id number] [id number] Univers 00:00:00 00:00:00 [place] 81096.1.1 ity of [place] 3.104.2.7 [place] .3.438082 Medica l .8 Branch 2019-10-18 2019-10-18 Orders Doctor 1.2.840.8 [id number] Univers 00:00:00 00:00:00 Only Unassigned, 72360.1.1 ity of [place] 3.104.2.7 [place] .3.889433 Medica l .8 Branch 2019-10-18 2019-10-18 Telephone Krrafia, 1.2.840.6 [id number] 756 [id number] Univers 00:00:00 00:00:00 Wu 85134.1.1 ity of 3.104.2.7 [place] .3.334840 Medica l .8 Branch 2019-10-11 2019-10-11 Jasper Goldman 1.2.840.0 [id number] 755 [id number] Univers 00:00:00 00:00:00 [place] 39724.1.1 ity of [place] 3.104.2.7 [place] .3.071797 Medica l .8 Branch 2019-10-11 2019-10-11 Jasper Goldman 1.2.840.8 [id number] 755 [id number] Univers 00:00:00 00:00:00 [place] 21168.1.1 ity of [place] 3.104.2.7 [place] .3.754007 Medica l .8 [place] 2019-10-06 2019-10-06 Telemedici Pepito Estrella 1.2.840.1 10 [id number] Univers 06:59:58 15:12:03 ne Visit Wu Greer 70837.1.1 ity of 3.104.2.7 [place] .3.427311 Medica l .8 Branch 2019-10-06 2019-10-06 Outpatient Abel ESTRELLA [facility] [id number] Univers 13:00:00 13:00:00 PEPITO ity o f [facility] 2019-09-20 2019-09-20 Orders Doctor 1.2.840.7 [id number] Univers 00:00:00 00:00:00 Only Unassigned, 74735.1.1 ity of [place] 3.104.2.7 [place] .3.460854 Medica l .8 [place] 2019-09-19 2019-09-19 Refrafia Goldman, 1.2.840.6 [id number] 751 [id number] Univers 00:00:00 00:00:00 Keshawn 95004.1.1 ity of [place] 3.104.2.7 [place] .3.710344 Medica l .8 [place] 2019-09-19 2019-09-19 Refrafia Goldman, 1.2.840.9 [id number] 751 [id number] Univers 00:00:00 00:00:00 Keshawn 90642.1.1 ity of [place] 3.104.2.7 [place] .3.801720 Medica l .8 [place] 2019-09-15 2019-09-15 Outpatient R ARELY HOPKINS [facility] [id number] Univers 14:15:00 14:15:00 ity of [facility] 2019-09-10 2019-09-10 Telephone Zoey 1.2.840.5 [id number] Univers 00:00:00 00:00:00 Wu 66891.1.1 ity of 3.104.2.7 [place] .3.413846 Medica l .8 [place] 2019-09-08 2019-09-08 Outpatient R [facility] [id number] Univers 13:30:00 13:30:00 ity of [facility] 2019-09-08 2019-09-08 Telemedici Sushil Cook 1.2.840.1 [id number] Univers 07:06:54 07:36:54 ne Melina Gomez 90716.1.1 ity of [place] 3.104.2.7 [place] .3.405784 Medica l .8 [place] 2019-08-26 2019-08-26 [facility] [id number] Univers 15:00:00 15:00:00 KESHAWN ity of [facility] 2019-08-26 2019-08-26 Outpatient R SEREG [facility] [id number] Univers 15:00:00 15:00:00 KESHAWN ity of [facility] 2019-08-22 2019-08-22 Patient eSrge [facility] 1.2.892.259 [id number] Univers 00:00:00 00:00:00 Secure Msg [place] LEAGUE 350.1.13.10 ity of [facility] [place] [phone] Hi dical AND [address] [place] [address] E CLINIC 2019-08-22 2019-08-22 [facility] 1.[facility].910.632 [id number] Univers 00:00:00 00:00:00 Secure Msg K[place]hawn LEAGUE 350.1.13.10 ity of [facility] [place] [id number] Me dical AND [address] [place] [address] E CLINIC 2019-08-19 2019-08-19 Nurse Constantine, 1.2.840.0 [id number] Univers 00:00:00 00:00:00 Triage Deysi D 76091.1.1 ity of 3.104.2.7 [place] .3.364777 Medica l .8 Branch 2019-08-19 2019-08-19 Jasper Goldman, 1.2.840.1 [id number] 747 [id number] Univers 00:00:00 00:00:00 [place] 23870.1.1 ity of [place] 3.104.2.7 [place] .3.473893 Medica l .8 Branch 2019-08-19 2019-08-19 Cherry Goldman, 1.2.840.6 [id number] Univers 00:00:00 00:00:00 [place] 80652.1.1 ity of [place] 3.104.2.7 [place] .3.485148 Medica l .8 Branch 2019-08-19 2019-08-19 Jasper Goldman, 1.2.840.6 [id number] 747 [id number] Univers 00:00:00 00:00:00 Keshawn 06114.1.1 ity of [place] 3.104.2.7 [place] .3.545654 Medica l .8 Branch 2019-08-18 2019-08-18 Office Serge, 1.2.840.1 [id number] 742 [id number] Univers 13:07:26 13:22:26 Visit Keshawn 95653.1.1 ity of [place] 3.104.2.7 [place] .3.786250 Medica l .8 [place] 2019-08-18 2019-08-18 [facility] [id number] Univers 13:00:00 13:00:00 KESHAWN ity of [facility] 2019-08-18 2019-08-18 Refill Serge, 1.2.840.9 [id number] 747 [id number] Univers 00:00:00 00:00:00 Keshawn 81656.1.1 ity of [place] 3.104.2.7 [place] .3.655856 Medica l .8 [place] 2019-08-11 2019-08-11 Outpatient Abel DOTSON, [facility] [id number] Univers 10:45:00 10:45:00 GABE ity of [facility] 2019-08-11 2019-08-11 Orders Doctor 1.2.840.0 [id number] Univers 00:00:00 00:00:00 Only Unassigned, 63146.1.1 ity of [place] 3.104.2.7 [place] .3.489671 Medica l .8 [place] 2019-08-04 2019-08-04 Outpatient SANDRA, [facility] [id number] [place] 00:00:00 00:00:00 JEAN PIERRE 786 Method i 2019-08-01 2019-08-01 Outpatient SANDRA, [facility] [id number] [place] 00:00:00 00:00:00 JEAN PIERRE 062 Method i 2019-07-26 2019-07-28 Outpatient YERRAMADHA, [facility] [id number] [place] 00:00:00 00:00:00 DANIKA 312 Met [place] 2019-07-25 2019-07-25 Emergency ANMOL, [facility] 064 [id number] [place] 00:00:00 00:00:00 JANA 764 Method i 2019-07-10 2019-07-10 Jasper Dick 1.2.840.2 [id number] Univers 00:00:00 00:00:00 Rosemary E 84548.1.1 i ty of 3.104.2.7 [place] .3.938954 Medica l .8 Branch 2019-07-02 2019-07-02 Refrafia Goldman, 1.2.840.9 [id number] 738 [id number] Univers 00:00:00 00:00:00 [place] 31457.1.1 ity of [place] 3.104.2.7 [place] .3.653984 Medica l .8 Branch 2019-07-01 2019-07-01 Refrafia Goldman, 1.2.840.2 [id number] 738 [id number] Univers 00:00:00 00:00:00 Keshawn 14727.1.1 ity of [place] 3.104.2.7 [place] .3.692348 Medica l .8 [place] 2019-06-07 2019-06-07 Refrafia Goldman 1.2.840.0 [id number] 733 [id number] Univers 00:00:00 00:00:00 [place] 08230.1.1 ity of [place] 3.104.2.7 [place] .3.429424 Medica l .8 [place] 2019-05-27 2019-05-27 Telephone Serge, 1.2.840.9 [id number] Univers 00:00:00 00:00:00 Keshawn 77491.1.1 ity of [place] 3.104.2.7 [place] .3.640034 Medica l .8 [place] 2019-05-26 2019-05-26 Orders Doctor 1.2.840.0 [id number] Univers 00:00:00 00:00:00 Only Unassigned, 18486.1.1 ity of [place] 3.104.2.7 [place] .3.166301 Medica l .8 [place] 2019-05-10 2019-05-10 Telephone Kpail, 1.2.840.6 [id number] 728 [id number] Univers 00:00:00 00:00:00 Rosemary E 59628.1.1 i ty of 3.104.2.7 [place] .3.476598 Medica l .8 [place] 2019-05-10 2019-05-10 Jasper Goldman, 1.2.840.9 [id number] 728 [id number] Univers 00:00:00 00:00:00 Keshawn 88725.1.1 ity of [place] 3.104.2.7 [place] .3.104095 Medica l .8 Branch 2019-05-09 2019-05-09 Jasper Dick, 1.2.840.7 [id number] Univers 00:00:00 00:00:00 Rosemary E 69793.1.1 i ty of 3.104.2.7 [place] .3.012447 Medica l .8 Branch 2019-04-12 2019-04-12 Cherry Goldman, 1.2.840.4 [id number] Univers 00:00:00 00:00:00 Keshawn 61456.1.1 ity of [place] 3.104.2.7 [place] .3.857047 Medica l .8 Branch 2019-04-11 2019-04-11 Jasper Goldman 1.2.840.2 [id number] 723 [id number] Univers 00:00:00 00:00:00 Keshawn 69280.1.1 ity of [place] 3.104.2.7 [place] .3.573889 Medica l .8 Branch 2019-04-10 2019-04-10 Jasper Goldman, 1.2.840.0 [id number] 723 [id number] Univers 00:00:00 00:00:00 [place] 42260.1.1 ity of [place] 3.104.2.7 [place] .3.875174 Medica l .8 Branch 2019-04-05 2019-04-05 Jasper Goldman, 1.2.840.3 [id number] 722 [id number] Univers 00:00:00 00:00:00 Keshawn 00458.1.1 ity of [place] 3.104.2.7 [place] .3.228930 Medica l .8 Branch 2019-03-24 2019-03-24 Orders Doctor 1.2.840.0 [id number] Univers 00:00:00 00:00:00 Only Unassigned, 70963.1.1 ity of [place] 3.104.2.7 [place] .3.365557 Medica l .8 Branch 2019-02-24 2019-02-24 Patient Serge, [facility] 1.2.774.158 [id number] Univers 00:00:00 00:00:00 Secure Keshawn PENA 350.1.13.10 ity of [facility] 4[place]2.[place] [id number] Hi dical AND [address] [facility] E CLIN[facility] 2019-02-24 2019-02-24 Jasper Goldman, 1.2.840.2 [id number] 715 [id number] Univers 00:00:00 00:00:00 Keshawn 53853.1.1 ity of [place] 3.104.2.7 [place] .3.475775 Medica l .8 Branch 2019-02-24 2019-02-24 Refrafia Goldman, 1.2.840.7 [id number] 715 [id number] Univers 00:00:00 00:00:00 Keshawn 56543.1.1 ity of [place] 3.104.2.7 [place] .3.926197 Medica l .8 Branch 2019-02-24 2019-02-24 Jasper Goldman, 1.2.840.6 [id number] 715 [id number] Univers 00:00:00 00:00:00 [place] 55199.1.1 ity of [place] 3.104.2.7 [place] .3.780873 Medica l .8 Branch 2019-02-24 2019-02-24 Jasper Goldman, 1.2.840.0 [id number] 715 [id number] Univers 00:00:00 00:00:00 Keshawn 56183.1.1 ity of [place] 3.104.2.7 [place] .3.286011 Medica l .8 Branch 2019-02-23 2019-02-23 Jasper Goldman 1.2.840.9 [id number] 715 [id number] Univers 00:00:00 00:00:00 [place] 03068.1.1 ity of [place] 3.104.2.7 [place] .3.737931 Medica l .8 Branch 2019-02-21 2019-02-21 Cherry Goldman 1.2.840.8 [id number] Univers 00:00:00 00:00:00 Keshawn 12966.1.1 ity of [place] 3.104.2.7 [place] .3.165273 Medica l .8 Branch 2019-02-18 2019-02-18 Office Serge, 1.2.840.9 [id number] Univers 15:49:00 16:04:00 Visit Keshawn 93801.1.1 ity of [place] 3.104.2.7 [place] .3.776082 Medica l .8 Branch 2019-02-17 2019-02-17 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 Rosemary Dick 1.2.840.3 [id number] Univers 09:01:36 16:08:39 Visit Vls-Lab 43662.1.1 ity of 3.104.2.7 [place] .3.784987 Medica l .8 Branch 2019-02-17 2019-02-17 Office Kapil 1.2.840.7 [id number] Univers 09:09:27 10:03:06 Visit Rosemary Heath 06717.1.1 i ty of 3.104.2.7 [place] .3.358896 Medica l .8 Branch 2019-02-11 2019-02-11 Orders Doctor 1.2.840.7 [id number] Univers 00:00:00 00:00:00 Only Unassigned, 48326.1.1 ity of [place] 3.104.2.7 [place] .3.868117 Medica l .8 Branch 2019-02-09 2019-02-09 Refill Serge 1.2.840.7 [id number] 712 [id number] Univers 00:00:00 00:00:00 Keshawn 89423.1.1 ity of [place] 3.104.2.7 [place] .3.528588 Medica l .8 Branch 2019-01-31 2019-01-31 Patient Serge [facility] 1.2.251.320 [id number] Univers 00:00:00 00:00:00 Secure Msmarilyn PENA 350.1.13.10 ity of [facility] 4[place]7.2.[place] [phone] Hi dical AND [address] [facility] 2019-01-11 2019-01-11 Office Serge, 1.2.840.4 [id number] 703 [id number] Univers 08:45:17 09:00:17 Visit [place] 85040.1.1 ity of [place] 3.104.2.7 [place] .3.355877 Medica l .8 Branch 2019-01-11 2019-01-11 Orders Doctor 1.2.840.4 [id number] Univers 00:00:00 00:00:00 Only Unassigned, 05389.1.1 ity of [place] 3.104.2.7 [place] .3.366791 Medica l .8 Branch 2018-12-21 2018-12-21 Refrafia Goldman, 1.2.840.7 [id number] 703 [id number] Univers 00:00:00 00:00:00 [place] 58205.1.1 ity of [place] 3.104.2.7 [place] .3.097242 Medica l .8 Branch 2018-12-20 2018-12-20 Refrafia Goldman, 1.2.840.4 [id number] 703 [id number] Univers 00:00:00 00:00:00 Keshawn 82026.1.1 ity of [place] 3.104.2.7 [place] .3.145309 Medica l .8 Branch 2018-12-20 2018-12-20 Refrafia Goldman, 1.2.840.4 [id number] [id number] Univers 00:00:00 00:00:00 Keshawn 07360.1.1 ity of [place] 3.104.2.7 [place] .3.611198 Medica l .8 Branch 2018-12-14 2018-12-14 Jasper Dick 1.2.840.1 [id number] Univers 00:00:00 00:00:00 Rosemary Heath 67917.1.1 i ty of 3.104.2.7 [place] .3.338658 Medica l .8 Branch 2018-11-23 2018-11-23 Jasper Goldman 1.2.840.9 [id number] [id number] Univers 00:00:00 00:00:00 Keshawn 17758.1.1 ity of [place] 3.104.2.7 [place] .3.092146 Medica l .8 [place] 2018-11-19 2018-11-19 Telephone Team, [facility] 1.2.840.2 [id number] Univers 00:00:00 00:00:00 Health 42187.1.1 ity of [place].2.7 [place] .3.018101 Medica l .8 [place] 2018-11-18 2018-11-18 Telephone Kapil, 1.2.840.1 [id number] Univers 00:00:00 00:00:00 Rosemary E 88737.1.1 i ty of 3.104.2.7 [place] .3.288490 Medica l .8 [place] Results Test Description Test Time Test Comments Results Result Comments Source IONIZED CALCIUM 2022-01-25 08:35:55 Test Item Value Reference Range Interpretation Comme nts IONIZED CA (test code = 6877825589) 4.70 mg/dL 4.5-5.3 PH SERUM (test code = 2728508136) 7.35-7.45 L QUES Lab Interpretation (test code = 49515-3) Abnormal [facility] [facility] [id number] 04:46:36 Test Item Value Reference Range Interpretation Comments TSH (test code = See_Comment [Automated message] 3728109208) The system i-marker generated this result transmitted ref erence range: 0.45 - 4 .70 mIU/L. The refe rence range was not u sed to interpret this result as normal/abnor mal. Lab Interpretation (test Normal code = 16718-5) [facility] [facility], [id number] 04:32:56 Test Item Value Reference Range Interpretation Comments T4 TOTAL (test code = See_Comment [Auto mated 1379598551) message] The system which generated this result transmitted reference range : 5.5 - 11.0 mcg/dL. The reference range was not used to interpret this result as normal/abnormal . JEIMY (test code = JEIMY) Normal Range or Expected Values will vary for patients who are on ovulation control drugs or . ? Lab Interpretation Normal (test code = 11472-2) [facility] [facility]GLY[facility]OSYL[facility] HEMOGLOBIN (A1C)2022-01-25 04:20:43 Test Item Value Reference Range Interpretation Comments HGB A1C (test code = 8.2 % 4-5.7 H 4548-4) JEIMY (test code = JEIMY) Reference RangesNormal: <5.7%Prediabetes: 5.7 - 6.4%Diabetes: > 6.5% Lab Interpretation (test Abnormal code = 67232-2) [facility] [facility] CenterCOMP[facility]OLIC PANEL (38783)2022-01-25 04:18:51 Test Item Value Reference Range Interpretation Comments NA (test code = 142 mmol/L 135-145 5564617305) K (test code = 3.8 mmol/L 3.5-5 6604887712) CL (test code = 103 mmol/L 98-108 7084719486) CO2 TOTAL (test code 30 mmol/L 23-31 = 7461768930) AGAP (test code = 2-16 8377810945) BUN (test code = 14 mg/dL 7-23 4184885028) GLUCOSE (test code = 78 mg/dL 70-110 2519433755) CREATININE (test code 0.79 mg/dL 0.5-1.04 = 5584125439) TOTAL BILI (test code 0.4 mg/dL 0.1-1.1 = 6092636228) CALCIUM (test code = 9.0 mg/dL 8.6-10.6 3331507692) T PROTEIN (test code 7.2 g/dL 6.3-8.2 = 2561592764) ALBUMIN (test code = 4.6 g/dL 3.5-5 8219992334) ALK PHOS (test code = 72 U/L 34-122 5854441472) ALTv (test code = 18 U/L 5-35 1742-6) AST(SGOT) (test code 27 U/L 13-40 = 8600854411) eGFR (test code = mL/min/1.73m2 7645093061) JEIMY (test code = JEIMY) Association of [...] or urine or abnormalities in imaging tests). [facility] WITH [id number] 04:04:32 Test Item Value Reference Range Interpretation Comments WBC (test code = See_Comment [Automated 5750-2) message] The sy stem which generated this result transmitted reference range : 4.30 - 11.10 10*3/?L. The reference range was not used to interpret this result as normal/abnormal . RBC (test code = See_Comment [Automated 009-8) message] The sy stem which generated this [...] (test code = 37.9 fL 39-49.9 L 86629-9) RDW-CV (test code = 11.8 % 12-15.5 L 788-0) PLT (test code = See_Comment [Automated 777-3) message] The sy stem which generated this result transmitted reference range : 166 - 358 10*3/ ?L. The reference r estee was not used to interpret this result as normal/abnormal . MPV (test code = 11.4 fL 9.5-12.9 46605-4) NRBC/100 WBC (test See_Comment [Automat ed code = 8815592955) message] The system which generated this result transmitted reference range : 0.0 - 10.0 /100 WBCs. The refer ence range was not u sed to interpret th is result as normal/abnormal . NRBC x10^3 (test code See_Comment [Auto mated = 9228013398) message] The s ystem which generated this result transmitted reference range : 10*3/?L. The reference range was not used to interpret this result as normal/abnormal . GRAN MAT (NEUT) % 50.2 % (test code = 770-8) IMM GRAN % (test code 0.20 % = 6918323205) LYMPH % (test code = 42.4 % 736-9) MONO % (test code = 5.7 % 5905-5) EOS % (test code = 0.7 % 713-8) BASO % (test code = 0.8 % 706-2) GRAN MAT x10^3(ANC) 2.99 10*3/uL 1.88-7.09 (test code = 2585462991) IMM GRAN x10^3 (test 0-0.06 code = 9644603981) LYMPH x10^3 (test code 2.53 10*3/uL 1.32-3.29 = 731-0) MONO x10^3 (test code 0.34 10*3/uL 0.33-0.92 = 742-7) EOS x10^3 (test code = 0.04 10*3/uL 0.03-0.39 711-2) BASO x10^3 (test code 0.05 10*3/uL 0.01-0.07 = 704-7) Lab Interpretation Abnormal (test code = 36966-8) [facility] WITH [id number] 04:04:32 Test Item Value Reference Range Interpretation Comments WBC (test code = See_Comment [Automated 0890-2) message] The sy stem which generated this [...] (test code = 37.9 fL 39-49.9 L 64169-5) RDW-CV (test code = 11.8 % 12-15.5 L 788-0) PLT (test code = See_Comment [Automated 777-3) message] The sy stem which generated this result transmitted reference range : 166 - 358 10*3/ ?L. The reference r estee was not used to interpret this result as normal/abnormal . MPV (test code = 11.4 fL 9.5-12.9 40784-6) NRBC/100 WBC (test See_Comment [Automat ed code = 1534793470) message] The system which generated this result transmitted reference range : 0.0 - 10.0 /100 WBCs. The refer ence range was not u sed to interpret th is result as normal/abnormal . NRBC x10^3 (test code See_Comment [Auto mated = 2001722303) message] The s ystem which generated this result transmitted reference range : 10*3/?L. The reference range was not used to interpret this result as normal/abnormal . GRAN MAT (NEUT) % 50.2 % (test code = 770-8) IMM GRAN % (test code 0.20 % = 4074836245) LYMPH % (test code = 42.4 % 736-9) MONO % (test code = 5.7 % 5905-5) EOS % (test code = 0.7 % 713-8) BASO % (test code = 0.8 % 706-2) GRAN MAT x10^3(ANC) 2.99 10*3/uL 1.88-7.09 (test code = 1712334839) IMM GRAN x10^3 (test 0-0.06 code = 9984239110) LYMPH x10^3 (test code 2.53 10*3/uL 1.32-3.29 = 731-0) MONO x10^3 (test code 0.34 10*3/uL 0.33-0.92 = 742-7) EOS x10^3 (test code = 0.04 10*3/uL 0.03-0.39 711-2) BASO x10^3 (test code 0.05 10*3/uL 0.01-0.07 = 704-7) Lab Interpretation Abnormal (test code = 82712-6) [facility] URINALYSIS W SPECIFIC [id number] 19:15:00 Test Item Value Reference Range Interpretation [...] U APPEAR (test code = turbid 3267) [facility] SPECIFIC [id number] 19:15:00 Test Item Value Reference Range Interpretation Comments POCT U SP GRAV (test code = 1.015 mg/dl 1.005-1.025 5) POCT PH U (test code = 3254) [...] U APPEAR (test code = turbid 3267) [facility]
[2022-06-10 16:28] LABS: Urine Blood Negative (Negative); Urine Glucose Trace (Negative); Urine Protein Negative (Negative); Urine Specific Gravity 1.025 (1.005-1.030)
[2022-06-10 16:33] LABS: Absolute Lymphocytes (CBC) 2.4 K/uL (0.7-4.9); Hematocrit 41.3 % (36.0-45.0); MCV 86.9 fL (80-100); RBC Red Blood Cell Count 4.75 M/uL (3.86-4.86)
[2022-06-10 16:52] LABS: Urine Bacteria None Seen /HPF (<20); Urine Mucus Slight /HPF (None Seen); Urine RBC <5 /HPF (None Seen)
[2022-06-10] MEDS ORDERED: NA CHLORIDE 0.9% 1,000 ML ONE (17:07)
[2022-06-10] MEDS ORDERED: KETOROLAC 30 MG/ML INJ ONE (17:07)
[2022-06-10 17:15] LABS: Urine Specific Gravity/Preg 1.025 (1.005-1.030)
[2022-06-10 17:15] LABS: Albumin 3.7 g/dL (3.4-5.0); Bilirubin Total 0.5 mg/dL (0.2-1.0); Protein, Total 7.4 g/dL (6.4-8.2)
[2022-06-10 17:16] LABS: Potassium 4.6 mmol/L (3.5-5.1)
--- NOTE | 2022-06-10 18:02 | RAD REPORT ---
EXAM DESCRIPTION: CTAbdomen Pelvis W Contrast - 06/10/2022 5:39 pm CLINICAL HISTORY: r/o Pyelonephritis COMPARISON: No comparisons TECHNIQUE: CT of the abdomen and pelvis was performed with IV contrast. All CT scans are performed using dose optimization technique as appropriate and may include automated exposure control or mA/KV adjustment according to patient size. FINDINGS: Lower chest: Right lower lobe structure measuring 2.3 x 1.4 cm with a feeding vessels conc erning for pulmonary arteriovenous malformation. Liver: No acute abnormality or suspicious lesions. Biliary: No biliary ductal dilatation. Stomach: No significant focal abnormality. Duodenum: No significant focal abnormality. Pancreas: Low-density mass at the pancreatic tail measuring approximately 4.9 x 3.1 cm. There is some peripheral calcifications as well as some intermixed small intermediate attenuation foci. Spleen: No significant abnormality. Adrenal: No suspicious lesions. Kidney/ureter: No hydronephrosis. No renal calculi. Retroperitoneum: No retroperitoneal adenopathy. Vascular: No aneurysm. Question portal vein occlusion. Prominent venous collaterals in left upper abhilash drant. Bowel: Normal appendix.. Peritoneum: Pelvic free fluid which is likely physiologic. Bladder: Grossly unremarkable. Reproductive: No adnexal masses. Bones: No acute fracture. Other: n/a IMPRESSION: No acute intra-abdominal or pelvic finding. No CT evidence of pyelonephritis or hydronep hrosis. No urinary tract calculi. 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 Referral to hepatobilia ry surgeon is recommended. Right lower lobe lung lesion has imaging features consistent with a pulmonary arteriovenous malformat ion. Recommend further evaluation with nonemergent CTA of the thorax.
--- NOTE | 2022-06-10 18:19 | EDPHYS ---
Physician Documentation [facility] Name: Pamela Richter Age: 41 yrs Sex: Female : 1980 Arrival Date: 06/10/2022 Time: 15:53 Bed 17 Private MD: ED Physician Mauricio Vaughn HPI: 06/10 16:05 This 41 yrs old Female presents to ER via Ambulatory with complaints of Low Back Pain. jh7 16:05 The patient presents with pain that is acute, with no known mechanism of injury. The jh7 symptoms are located in the right low back. The pain does not radiate. Onset: The symptoms/episode began/occurred 2 week(s) ago, and became worse. 41-year-old female presents for dysuria, frequency, urgency, and right flank pain for the past 2 weeks. Reports that the pain has gotten worse and that she has a history of UTIs and kidney infections. Reports a history of type 1 diabetes. Reports that her PCP is Dr. Santacruz. 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 - Social history:: Smoking status: Patient reports the use of cigarette tobacco products, smokes one-half pack cigarettes per day, Patient uses alcohol, occasionally. street drugs, marijuana. ROS: 16:05 Constitutional: Negative for fever, chills, and weight loss, Neck: Negative for injury, jh7 pain, and swelling, Cardiovascular: Negative for chest pain, palpitations, and edema, Respiratory: Negative for shortness of breath, cough, wheezing, and pleuritic chest pain, Abdomen/GI: Negative for abdominal pain, nausea, vomiting, diarrhea, and constipation, MS/Extremity: Negative for injury and deformity, Skin: Negative for injury, rash, and discoloration, Neuro: Negative for headache, weakness, numbness, tingling, and seizure. 16:05 : Positive for urinary symptoms, flank pain, urinary frequency, burning with urination. 16:05 All other systems are negative. Exam: 16:05 Constitutional: This is a well developed, well nourished patient who is awake, alert, jh7 and in no acute distress. Head/Face: Normocephalic, atraumatic. Cardiovascular: Regular rate and rhythm with a normal S1 and S2. No gallops, murmurs, or rubs. Normal PMI, no JVD. No pulse deficits. Respiratory: Lungs have equal breath sounds bilaterally, clear to auscultation and percussion. No rales, rhonchi or wheezes noted. No increased work of breathing, no retractions or nasal flaring. Skin: Warm, dry with normal turgor. Normal color with no rashes, no lesions, and no evidence of cellulitis. MS/ Extremity: Pulses equal, no cyanosis. Neurovascular intact. Full, normal range of motion. Neuro: Awake and alert, GCS 15, oriented to person, place, time, and situation. Motor strength 5/5 in all extremities. Sensory grossly intact. Normal gait. 16:05 Abdomen/GI: Inspection: abdomen appears normal, Bowel sounds: normal, Palpation: soft, nontender. 16:05 Back: CVA tenderness, that is mild, is noted on the right. Vital Signs: 16:09 BP 153 / 101; Pulse 104; Resp 17; Temp 97.9; Pulse Ox 100% on R/A; Weight 71.67 kg; ap3 Height 5 ft. 7 in. (170.18 cm); 16:09 Pain 5/10; ap3 17:30 BP 143 / 93; Pulse 96; Resp 18; Pulse Ox 100% on R/A; eh3 16:09 Body Mass Index 24.75 (71.67 kg, 170.18 cm) ap3 MDM: 15:58 Patient medically screened. 7 18:26 Differential diagnosis: strain, UTI, Pyelonephritis, nephrolithiasis, interstitial jh7 cystitis. Data reviewed: vital signs, nurses notes, lab test result(s), radiologic studies, CT scan. Data interpreted: Pulse oximetry: is 100 %. Interpretation: normal. 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 Response to treatment: the patient's symptoms have markedly improved after treatment. ED course: Reviewed all labs and nonacute CT scan findings. As the patient to follow-up with GI regarding the pancreatic mass noted on the CT. In regards to the arteriovenous malformation, the patient states that she is aware, and has been notified of this before. Informed her that we were doing a urine culture, but due to her history of UTIs and renal infections, we would start her on antibiotics here. If symptoms persist, worsen, or any new concerning symptoms develop, she should return to the ER for further eval. The patient understood the plan of care.. 06/10 16:04 Order name: CBC with Diff; Complete Time: 16:35 [facility] 06/10 16:04 Order name: CMP; Complete Time: 17:20 [facility] 06/10 16:04 Order name: Lipase; Complete Time: 17:20 [facility] 06/10 16:04 Order name: Urine Microscopic Only; Complete Time: 17:09 [facility] 06/10 16:28 Order name: Urine Dipstick-Ancillary; Complete Time: 16:30 [facility] 06/10 17:08 Order name: Urine --Ancillary (enter results); Complete Time: 17:20 bd 06/10 16:04 Order name: CT Abd/Pelvis - IV Contrast Only; Complete Time: 18:12 [facility] 06/10 16:04 Order name: IV Saline Lock; Complete Time: 16:37 [facility] 06/10 16:04 Order name: Labs collected and sent; Complete Time: 16:37 [facility] 06/10 16:04 Order name: Urine Dipstick-Ancillary (obtain specimen); Complete Time: 16:37 [facility] 06/10 16:04 Order name: Urine Test (obtain specimen); Complete Time: 16:37 [facility] Administered Medications: 17:30 Drug: TORadol - (ketorolac) 15 mg Route: IVP; Site: left antecubital; eh3 18:26 Follow up: Response: Pain is decreased eh3 17:44 Drug: NS 0.9% 1000 ml Route: IV; Rate: 1 bolus; Site: left antecubital; eh3 18:36 Follow up: IV Status: IV converted to saline lock; IV Intake: 300ml eh3 Disposition Summary: 06/10/22 18:18 Discharge Ordered Location: Home [facility] Problem: new [facility] Symptoms: are unchanged [facility] Condition: Stable [facility] Diagnosis - Dysuria [facility] Followup: [facility] - With: Ronal Henry MD - When: 2 - 3 days - Reason: Further diagnostic work-up Discharge Instructions: - Discharge Summary Sheet [facility] - Dysuria [facility] Forms: - Medication Reconciliation Form [facility] - Thank You Letter [facility] - Antibiotic Education [facility] Prescriptions: - Macrobid 100 mg Oral Capsule - take 1 capsule by ORAL route every 12 hours for 7 days; 14 capsule; Refills: 0, jh7 Product Selection Permitted Signatures: Dispatcher [employer] Paola Stewart, RN RN ap3 Anjali Baires RN RN eh3 Karolyn Perera, MEDICAL ATTENDANT MEDICAL ATTENDANT [facility]
--- NOTE | 2022-06-10 18:19 | ER ---
Nurse's Notes [facility] Name: Pamela Richter Age: 41 yrs Sex: Female : 1980 Arrival Date: 06/10/2022 Time: 15:53 Bed 17 Private MD: Diagnosis: Dysuria Presentation: 06/10 16:09 Chief complaint: Patient states: she has been having right sided low back pain for a ap3 few days now. patient reports frequent urination, and that she believes she has either a UTI or a kidney infection. Coronavirus screen: At this time, the client does not indicate any symptoms associated with coronavirus-19. Ebola Screen: No symptoms or risks identified at this time. Initial Sepsis Screen: Does the patient meet any 2 criteria? No. Patient's initial sepsis screen is negative. Does the patient have a suspected source of infection? Yes: Dysuria/Frequency/Urgency/UTI. Risk Assessment: Do you want to hurt yourself or someone else? Patient reports no desire to harm self or others. Onset of symptoms was June 10, 2022. 16:09 Method Of Arrival: Ambulatory ap3 16:09 Acuity: MANDI 3 ap3 Triage Assessment: 16:12 General: Appears in no apparent distress. Behavior is calm, cooperative, appropriate ap3 for age. Pain: Complains of pain in right low back. Neuro: Level of Consciousness is awake, alert, obeys commands, Oriented to person, place, time, situation, Gait is steady, Speech is normal. Cardiovascular: Patient's skin is warm and dry. Respiratory: Airway is patent Respiratory effort is even, unlabored. : Reports pain in right flank(s), urgency, urinary frequency. 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 - Social history:: Smoking status: Patient reports the use of cigarette tobacco products, smokes one-half pack cigarettes per day, Patient uses alcohol, occasionally. street drugs, marijuana. Screenin:12 [facility] ED Fall Risk Assessment (Adult) History of falling in the last 3 months, ap3 including since admission. Abuse screen: Denies threats or abuse. Nutritional screening: No deficits noted. Tuberculosis screening: No symptoms or risk factors identified. Assessment: 17:30 General: Appears in no apparent distress. uncomfortable, Behavior is calm, cooperative, eh3 appropriate for age. Pain: Complains of pain in right low back Pain does not radiate. Neuro: Level of Consciousness is awake, alert, obeys commands, Oriented to person, place, time, situation. Cardiovascular: Capillary refill < 3 seconds Patient's skin is warm and dry. Respiratory: Airway is patent Respiratory effort is even, unlabored, Respiratory pattern is regular, symmetrical. Vital Signs: 16:09 BP 153 / 101; Pulse 104; Resp 17; Temp 97.9; Pulse Ox 100% on R/A; Weight 71.67 kg; ap3 Height 5 ft. 7 in. (170.18 cm); 16:09 Pain 5/10; ap3 17:30 BP 143 / 93; Pulse 96; Resp 18; Pulse Ox 100% on R/A; eh3 16:09 Body Mass Index 24.75 (71.67 kg, 170.18 cm) ap3 ED Course: 15:53 Patient arrived in ED. rg4 15:58 [facility]rera [facility] jh7 15:58 Mauricio Vaughn MD is Attending Physician. jh7 16:11 Triage completed. ap3 16:13 Arm band placed on right wrist. ap3 16:25 Initial lab(s) drawn, by ED staff, sent to lab. Inserted saline lock: 20 gauge in left jl7 antecubital area, using aseptic technique. Blood collected. 16:47 Anjali Baires, CONOR is Primary Nurse. eh3 17:30 Patient has correct armband on for positive identification. eh3 17:41 CT Abd/Pelvis - IV Contrast Only In Process Unspecified. EDMS 18:18 Ronal Henry MD is Referral Physician. jh7 18:34 No provider procedures requiring assistance completed. IV discontinued, intact, eh3 bleeding controlled, No redness/swelling at site. Pressure dressing applied. Administered Medications: 17:30 Drug: TORadol - (ketorolac) 15 mg Route: IVP; Site: left antecubital; 3 18:26 Follow up: Response: Pain is decreased 3 17:44 Drug: NS 0.9% 1000 ml Route: IV; Rate: 1 bolus; Site: left antecubital; 3 18:36 Follow up: IV Status: IV converted to saline lock; IV Intake: 300ml 3 Medication: 18:34 VIS not applicable for this client. 3 Intake: 18:36 IV: 300ml; Total: 300ml. 3 Outcome: 18:18 Discharge ordered by . 7 18:35 Discharged to home ambulatory. 3 18:35 Condition: stable 18:35 Discharge instructions given to patient, Instructed on discharge instructions, follow up and referral plans. medication usage, Demonstrated understanding of instructions, follow-up care, medications, Prescriptions given X 1. 18:35 Patient left the ED. 3 Signatures: Dispatcher [employer] EDAleisha Vinson rg4 Rylee Cisneros RN RN 7 Paola Hills RN RN ap3 Anjali Baires, RN RN eh3 Karolyn Perera, WAGON DRILL OPERATOR WAGON DRILL OPERATOR [facility]
[2022-06-10 18:48] VITALS: TEMP 97.9; O2SAT 100
[2022-06-10 18:54] VITALS: BP 143/93
== END 2022-06-10 18:35 | disposition home or self-care (01) ==
LOC: ER 15:50
DX: R30.0 Dysuria (principal); M54.50 Low back pain, unspecified; F17.210 Nicotine dependence, cigarettes, uncomplicated; E11.9 Type 2 diabetes mellitus without complications; Z79.4 Long term (current) use of insulin; I10 Essential (primary) hypertension
CPT/HCPCS: 85025; 36415; 81025; 83690; 80053; 74177; Q9967; J7030; 81003; 81015; 96361; 96374; 99284

== ENCOUNTER 2022-07-09 18:44 | Emergency (ER) | payer BC, OTHER ==
--- OUTSIDE RECORDS SUMMARY | 2022-07-09 18:55 | XMS REPORT | Continuity of Care Document ---
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 Take 1 [facility] mg tablet 0-24 tablet by [facility] o f 00:00: mouth in [place] the Medical morning. Branch atorvastati 2021-06 Yes [id number] 20mg Take 1 [facility] n 20 mg 0-24 tablet by [facility] of tablet 00:00: mouth at [place] 00 bedtime. [facility] losartan 2021-06 Yes [id number] 25mg Take 1 [facility] mg tablet 0-24 tablet by [facility] o f 00:00: mouth in [place] the Medical morning. Branch atorvastati 2021-06 Yes [id number] 20mg Take 1 [facility] n 20 mg 0-24 tablet by [facility] of tablet 00:00: mouth at [place] 00 bedtime. [facility] losartan 2021-06 Yes [id number] 25mg Take 1 [facility] mg tablet 0-24 tablet by [facility] o f 00:00: mouth in [place] the Medical morning. Branch atorvastati 2021-06 Yes [id number] 20mg Take 1 [facility] n 20 mg 0-24 tablet by [facility] of tablet 00:00: mouth at [place] 00 bedtime. [facility] losartan 2021-06 Yes [id number] 25mg Take 1 [facility] mg tablet 0-24 tablet by [facility] o f 00:00: mouth in [place] the Medical morning. Branch atorvastati 2021-06 Yes [id number] 20mg Take 1 [facility] n 20 mg 0-24 tablet by [facility] of tablet 00:00: mouth at [place] 00 bedtime. [facility] losartan 25 2021-06 Yes [id number] 25mg Take 1 [facility] mg tablet 0-24 tablet by [facility] o f 00:00: mouth in [place] 00 the Medical morning. Branch atorvastati 2021-06 Yes [id number] 20mg Take 1 [facility] n 20 mg 0-24 tablet by [facility] tablet 00:00: mouth at [place] 00 bedtime. [facility] losartan 25 2021-06 Yes [id number] 25mg Take 1 [facility] mg tablet 0-24 tablet by [facility] o f 00:00: mouth in [place] 00 the Medical morning. Branch atorvastati 2021-06 Yes [id number] 20mg Take 1 [facility] n 20 mg 0-24 tablet by [facility] of tablet 00:00: mouth at [place] 00 bedtime. [facility] losartan 25 2021-06 Yes [id number] 25mg Take 1 [facility] mg tablet 0-24 tablet by [facility] o f 00:00: mouth in [place] the Medical morning. Branch atorvastati 2021-06 Yes [id number] 20mg Take 1 [facility] n 20 mg 0-24 tablet by [facility] of tablet 00:00: mouth at [place] 00 bedtime. [facility] losartan 25 2021-06 Yes [id number] 25mg Take 1 [facility] mg tablet 0-24 tablet by [facility] o f 00:00: mouth in [place] the Medical morning. Branch atorvastati 2021-06 Yes [id number] 20mg Take 1 [facility] n 20 mg 0-24 tablet by [facility] of tablet 00:00: mouth at [place] 00 bedtime. [facility] losartan 25 2021-06 Yes [id number] 25mg Take 1 [facility] mg tablet 0-24 tablet by [facility] o f 00:00: mouth in [place] the Medical morning. Branch atorvastati 2021-06 Yes [id number] 20mg Take 1 [facility] n 20 mg 0-24 tablet by [facility] of tablet 00:00: mouth at [place] 00 bedtime. [facility] losartan 25 2021-06 Yes [id number] 25mg Take 1 [facility] mg tablet 0-24 tablet by [facility] o f 00:00: mouth in [place] the Medical morning. Branch atorvastati 2021-06 Yes [id number] 20mg Take 1 [facility] n 20 mg 0-24 tablet by [facility] of tablet 00:00: mouth at [place] 00 bedtime. [facility] losartan 25 2021-06 Yes [id number] 25mg Take 1 [facility] mg tablet 0-24 tablet by [facility] o f 00:00: mouth in [place] the Medical morning. Branch atorvastati 2021-06 Yes [id number] 20mg Take 1 [facility] n 20 mg 0-24 tablet by [facility] of tablet 00:00: mouth at [place] 00 bedtime. [facility] losartan 25 2021-06 Yes [id number] 25mg Take 1 [facility] mg tablet 0-24 tablet by [facility] o f 00:00: mouth in [place] 00 the Medical morning. Branch atorvastati 2021-06 Yes [id number] 20mg Take 1 [facility] n 20 mg 0-24 tablet by [facility] of tablet 00:00: mouth at [place] [address] bedtime. Medical Branch losartan 25 2021-06 Yes [id number] 25mg Take 1 [facility] mg tablet 0-24 tablet by it[facility] o f 00:00: mouth in [place] the Medical morning. Branch atorvastati 2021-06 Yes [id number] 20mg Take 1 [facility] n 20 mg 0-24 tablet by [facility] of tablet 00:00: mouth at [place] 00 bedtime. [facility] losartan 25 2021-06 Yes [id number] 25mg Take 1 [facility] mg tablet 0-24 tablet by [facility] o f 00:00: mouth in [place] the Medical morning. Branch atorvastati 2021-06 Yes [id number] 20mg Take 1 [facility] n 20 mg 0-24 tablet by [facility] of tablet 00:00: mouth at [place] [address] bedtime. Medical Branch lamoTRIgine 2021-06 Yes [id number] 200mg Take 2 [facility] 100 mg 0-11 tablets by [facility] of tablet 00:00: mouth in [place] the Medical morning. Branch LORazepam 2021-06 Yes [id number] 1mg Take 1 [facility] (ATIVAN) 1 0-11 tablet by [facility] of mg tablet 00:00: mouth 2 [place] (two) Medical times [place] daily as needed for Anxiety or Agitation. prazosin 2021-06 Yes [id number] 1mg Take 1 [facility] mg capsule 0-11 capsule by [facility] of 00:00: mouth at [place] [address] bedtime. Medical Branch lamoTRIgine 2021-06 Yes [id number] 200mg Take 2 [facility] 100 mg 0-11 tablets by [facility] of tablet 00:00: mouth in [place] the Medical morning. Branch LORazepam 2021-06 Yes [id number] 1mg Take 1 [facility] (ATIVAN) 1 0-11 tablet by [facility] of mg tablet 00:00: mouth 2 [place] (two) Medical times [place] daily as needed for Anxiety or Agitation. prazosin 2021-06 Yes [id number] 1mg Take 1 [facility] n[facility] mg capsule 0-11 capsule by [facility] of 00:00: mouth at [place] [address] bedtime. Medical Branch lamoTRIgine 2021-06 Yes [id number] 200mg Take 2 [facility] 100 mg 0-11 tablets by [facility] of tablet 00:00: mouth in [place] 00 the Medical morning. Branch LORazepam 2021-06 Yes [id number] 1mg Take 1 [facility] (ATIVAN) 1 0-11 tablet by [facility] of mg tablet 00:00: mouth 2 [place] 00 (two) Medical times [place] daily as needed for Anxiety or Agitation. prazosin 2021-06 Yes [id number] 1mg Take 1 [facility] n[facility] mg capsule 0-11 capsule by [facility] of 00:00: mouth at [place] [address] bedtime. Medical Branch lamoTRIgine 2021-06 Yes [id number] 200mg Take 2 [facility] 100 mg 0-11 tablets by [facility] of tablet 00:00: mouth in [place] 00 the Medical morning. Branch LORazepam 2021-06 Yes [id number] 1mg Take 1 [facility] (ATIVAN) 1 0-11 tablet by [facility] of mg tablet 00:00: mouth 2 [place] [address] (two) [facility] daily as needed for Anxiety or Agitation. prazosin 2021-06 Yes [id number] 1mg Take 1 [facility] nivers mg capsule 0-11 capsule by it[facility] of 00:00: mouth at [place] [address] bedtime. Medical Branch lamoTRIgine 2021-06 Yes [id number] 200mg Take 2 [facility] 100 mg 0-11 tablets by it[facility] of tablet 00:00: mouth in [place] 00 the Medical morning. Branch prazosin 2021-06 Yes [id number] 1mg Take 1 [facility] nivers mg capsule 0-11 capsule by ity of 00:00: mouth at [place] [address] bedtime. Medical Branch lamoTRIgine 2021-06 Yes [id number] 200mg Take 2 [facility] 100 mg 0-11 tablets by it[facility] of tablet 00:00: mouth in [place] 00 the Medical morning. Branch prazosin 2021-06 Yes [id number] 1mg Take 1 [facility] n[facility] mg capsule 0-11 capsule by [facility] of 00:00: mouth at [place] [address] bedtime. Medical Branch lamoTRIgine 2021-06 Yes [id number] 200mg Take 2 [facility] 100 mg 0-11 tablets by it[facility] of tablet 00:00: mouth in [place] 00 the Medical morning. Branch prazosin 2021-06 Yes [id number] 1mg Take 1 [facility] nivers mg capsule 0-11 capsule by it[facility] of 00:00: mouth at [place] [address] bedtime. Medical Branch lamoTRIgine 2021-06 Yes [id number] 200mg Take 2 [facility] 100 mg 0-11 tablets by [facility] of tablet 00:00: mouth in [place] the Medical morning. Branch prazosin 2021-06 Yes [id number] 1mg Take 1 [facility] nivers mg capsule 0-11 capsule by [facility] of 00:00: mouth at [place] [address] bedtime. Medical Branch lamoTRIgine 2021-06 Yes [id number] 200mg Take 2 [facility] 100 mg 0-11 tablets by [facility] of tablet 00:00: mouth in [place] the Medical morning. Branch prazosin 2021-06 Yes [id number] 1mg Take 1 [facility] n[facility] mg capsule 0-11 capsule by [facility] of 00:00: mouth at [place] [address] bedtime. Medical Branch lamoTRIgine 2021-06 Yes [id number] 200mg Take 2 [facility] 100 mg 0-11 tablets by [facility] of tablet 00:00: mouth in [place] the morning. Branch prazosin 2021-06 Yes [id number] 1mg Take 1 [facility] n[facility] mg capsule 0-11 capsule by [facility] of 00:00: mouth at [place] [address] bedtime. Medical Branch lamoTRIgine 2021-06 Yes [id number] 200mg Take 2 [facility] 100 mg 0-11 tablets by [facility] of tablet 00:00: mouth in [place] the morning. Branch prazosin 2021-06 Yes [id number] 1mg Take 1 [facility] n[facility] mg capsule 0-11 capsule by [facility] of 00:00: mouth at [place] [address] bedtime. Medical Branch lamoTRIgine 2021-06 Yes [id number] 200mg Take 2 [facility] 100 mg 0-11 tablets by [facility] of tablet 00:00: mouth in [place] the Medical morning. Branch prazosin 2021-06 Yes [id number] 1mg Take 1 [facility] n[facility] mg capsule 0-11 capsule by it[facility] of 00:00: mouth at [place] [address] bedtime. Medical Branch lamoTRIgine 2021-06 Yes [id number] 200mg Take 2 [facility] 100 mg 0-11 tablets by [facility] of tablet 00:00: mouth in [place] the Medical morning. Branch prazosin 2021-06 Yes [id number] 1mg Take 1 [facility] nivers mg capsule 0-11 capsule by it[facility] of 00:00: mouth at [place] [address] bedtime. Medical Branch lamoTRIgine 2021-06 Yes [id number] 200mg Take 2 [facility] 100 mg 0-11 tablets by it[facility] of tablet 00:00: mouth in [place] the Medical morning. Branch prazosin 2021-06 Yes [id number] 1mg Take 1 [facility] nivers mg capsule 0-11 capsule by ity of 00:00: mouth at [place] [address] bedtime. Medical Branch lamoTRIgine 2021-06 Yes [id number] 200mg Take 2 [facility] 100 mg 0-11 tablets by it[facility] of tablet 00:00: mouth in [place] the Medical morning. Branch prazosin 2021-06 Yes [id number] 1mg Take 1 [facility] nivers mg capsule 0-11 capsule by it[facility] of 00:00: mouth at [place] [address] bedtime. Medical Branch lamoTRIgine 2021-06 Yes [id number] 200mg Take 2 [facility] 100 mg 0-11 tablets by it[facility] of tablet 00:00: mouth in [place] the morning. Branch prazosin 2021-06 Yes [id number] 1mg Take 1 [facility] nivers mg capsule 0-11 capsule by ity of 00:00: mouth at [place] [address] bedtime. Medical Branch lamoTRIgine 2021-06 Yes [id number] 200mg Take 2 [facility] 100 mg 0-11 tablets by it[facility] of tablet 00:00: mouth in [place] the Medical morning. Branch prazosin 2021-06 Yes [id number] 1mg Take 1 [facility] nivers mg capsule 0-11 capsule by ity of 00:00: mouth at [place] [address] bedtime. Medical Branch lamoTRIgine 2021-06 Yes [id number] 200mg Take 2 [facility] 100 mg 0-11 tablets by ity of tablet 00:00: mouth in [place] the Medical morning. Branch prazosin 2021-06 Yes [id number] 1mg Take 1 [facility] nivers mg capsule 0-11 capsule by ity of 00:00: mouth at [place] [address] bedtime. Medical Branch lamoTRIgine 2021-06 Yes [id number] 200mg Take 2 [facility] 100 mg 0-11 tablets by it[facility] of tablet 00:00: mouth in [place] the Medical morning. Branch prazosin 2021-06 Yes [id number] 1mg Take 1 [facility] nivers mg capsule 0-11 capsule by ity of 00:00: mouth at [place] 00 bedtime. Medical Branch lamoTRIgine 2021-06 Yes [id number] 200mg Take 2 [facility] 100 mg 0-11 tablets by it[facility] of tablet 00:00: mouth in [place] 00 the Medical morning. Branch prazosin 2021-06 Yes [id number] 1mg Take 1 [facility] nivers mg capsule 0-11 capsule by ity of 00:00: mouth at [place] 00 bedtime. Medical Branch lamoTRIgine 2021-06 Yes [id number] 200mg Take 2 [facility] 100 mg 0-11 tablets by it[facility] of tablet 00:00: mouth in [place] 00 the Medical morning. Branch prazosin 2021-06 Yes [id number] 1mg Take 1 [facility] nivers mg capsule 0-11 capsule by ity of 00:00: mouth at [place] 00 bedtime. Medical Branch lamoTRIgine 2021-06- No [id number] 200mg Take 2 [facility] 100 mg 0-11 01-18 tablets by [facility] of tablet 00:00: 00:00 mouth in [place] 00 :00 the Medical morning. Branch prazosin 2021-06- No [id number] 1mg Take 1 [facility] mg capsule 0-11 01-18 capsule by it y of 00:00: 00:00 mouth at [place] 00 :00 bedtime. Medical Branch lamoTRIgine 2021-06- No [id number] 200mg Take 2 [facility] 100 mg 0-11 01-18 tablets by ity of tablet 00:00: 00:00 mouth in [place] 00 :00 the Medical morning. Branch prazosin 2021-06- No [id number] 1mg Take 1 [facility] mg capsule 0-11 -18 capsule by it y of 00:00: 00:00 mouth at [place] 00 :00 bedtime. Medical Branch LORazepam 2021-06- No [id number] 1mg Take 1 [facility] nivers (ATIVAN) 1 0-11 10-25 tablet by [facility] of mg tablet 00:00: 00:00 mouth 2 [place] 00 :[place] (two) Medical times Branch daily as needed for Anxiety or Agitation. LORazepam 2021-06- No [id number] 1mg Take 1 [facility] nivers (ATIVAN) 1 0-11 10-25 tablet by it[facility] of mg tablet 00:00: 00:00 mouth 2 [place] 00 :[place] (two) Medical times [place] daily as needed for Anxiety or Agitation. LORazepam 2021-06 Yes [id number] 1mg Take 1 [facility] (ATIVAN) 1 0-10 tablet by ity of mg tablet 00:00: mouth 2 [place] 00 (two) Medical times [place] daily as needed for Anxiety or Agitation. prazosin 2021-06 Yes [id number] 1mg Take 1 [facility] nivers mg capsule 0-10 capsule by ity of 00:00: mouth at [place] 00 bedtime. Medical Branch lamoTRIgine 2021-06 Yes [id number] 200mg Take 2 [facility] 100 mg 0-10 tablets by ity of tablet 00:00: mouth in [place] 00 the Medical morning. Branch LORazepam 2021-06 Yes [id number] 1mg Take 1 [facility] (ATIVAN) 1 0-10 tablet by ity of mg tablet 00:00: mouth 2 [place] 00 (two) Medical times [place] daily as needed for Anxiety or Agitation. prazosin 2021-06 Yes [id number] 1mg Take 1 [facility] nivers mg capsule 0-10 capsule by ity of 00:00: mouth at [place] 00 bedtime. Medical Branch lamoTRIgine 2021-06 Yes [id number] 200mg Take 2 [facility] 100 mg 0-10 tablets by ity of tablet 00:00: mouth in [place] 00 the Medical morning. Branch LORazepam 2021-06- No [id number] 1mg Take 1 [facility] nivers (ATIVAN) 1 0-10 10-11 tablet by ity of mg tablet 00:00: 00:00 mouth 2 [place] 00 :[place] (two) Medical times [place] daily as needed for Anxiety or Agitation. prazosin 2021-06- No [id number] 1mg Take 1 [facility] mg capsule 0-10 10-11 capsule by it y of 00:00: 00:00 mouth at [place] 00 :00 bedtime. Medical Branch lamoTRIgine 2021-06- No [id number] 200mg Take 2 [facility] 100 mg 0-10 10-11 tablets by ity of tablet 00:00: 00:00 mouth in [place] 00 :00 the Medical morning. Branch FAMOTIDINE 2021-06 Yes [id number] TAKE ONE [facility] 40 mg 0-04 TABLET BY ity of tablet 00:00: MOUTH [place] 00 EVERY DAY Medical IN THE [facility]. FAMOTIDINE 2021-06 Yes [id number] TAKE ONE [facility] 40 mg 0-04 TABLET BY ity of tablet 00:00: MOUTH [place] 00 EVERY DAY Medical IN THE [place] MORNING. FAMOTIDINE 2021-06 Yes [id number] TAKE ONE [facility] 40 mg 0-04 TABLET BY ity of tablet 00:00: MOUTH [place] 00 EVERY DAY Medical IN THE [facility]. FAMOTIDINE 2021-06 Yes [id number] TAKE ONE [facility] 40 mg 0-04 TABLET BY ity of tablet 00:00: MOUTH [place] 00 EVERY DAY Medical IN THE [place] MORNING. FAMOTIDINE 2021-06 Yes [id number] TAKE ONE [facility] 40 mg 0-04 TABLET BY ity of tablet 00:00: MOUTH [place] 00 EVERY DAY Medical IN THE [place] MORNING. FAMOTIDINE 2021-06 Yes [id number] TAKE ONE [facility] 40 mg 0-04 TABLET BY ity of tablet 00:00: MOUTH [place] 00 EVERY DAY Medical IN THE [facility]. FAMOTIDINE 2021-06 Yes [id number] TAKE ONE [facility] 40 mg 0-04 TABLET BY ity of tablet 00:00: MOUTH [place] 00 EVERY DAY Medical IN THE [facility]. FAMOTIDINE 2021-06 Yes [id number] TAKE ONE [facility] 40 mg 0-04 TABLET BY ity of tablet 00:00: MOUTH [place] 00 EVERY DAY Medical IN THE [facility]. FAMOTIDINE 2021-06 Yes [id number] TAKE ONE [facility] 40 mg 0-04 TABLET BY ity of tablet 00:00: MOUTH [place] 00 EVERY DAY Medical IN THE [facility]. FAMOTIDINE 2021-06 Yes [id number] TAKE ONE [facility] 40 mg 0-04 TABLET BY ity of tablet 00:00: MOUTH [place] 00 EVERY DAY Medical IN THE [place] MORNING. FAMOTIDINE 2021-06- No [id number] TAKE ONE [facility] 40 mg 0-04 11-03 TABLET BY ity of tablet 00:00: 00:00 MOUTH [place] 00 :00 EVERY DAY Medical IN THE [place] MORNING. FAMOTIDINE 2021-06- No [id number] TAKE ONE [facility] 40 mg 0-04 11-03 TABLET BY ity of tablet 00:00: 00:00 MOUTH [place] 00 :00 EVERY DAY Medical IN THE [place] MORNING. LORazepam Yes [id number] 1mg Take 1 [facility] (ATIVAN) 1 9-12 tablet by ity of mg tablet 00:00: mouth 2 [place] 00 (two) Medical times Branch daily as needed for Anxiety or Agitation. LORazepam 2021-0 Yes [id number] 1mg Take 1 [facility] (ATIVAN) 1 9-12 tablet by ity of mg tablet 00:00: mouth 2 [place] 00 (two) Medical times Branch daily as needed for Anxiety or Agitation. LORazepam 2021-0 Yes [id number] 1mg Take 1 [facility] (ATIVAN) 1 9-12 tablet by ity of mg tablet 00:00: mouth 2 [place] 00 (two) Medical times Branch daily as needed for Anxiety or Agitation. LORazepam 2021-0 Yes [id number] 1mg Take 1 [facility] (ATIVAN) 1 9-12 tablet by ity of mg tablet 00:00: mouth 2 [place] (two) Medical times Branch daily as needed for Anxiety or Agitation. LORazepam 2021-0 Yes [id number] 1mg Take 1 [facility] (ATIVAN) 1 9-12 tablet by ity of mg tablet 00:00: mouth 2 [place] (two) Medical times Branch daily as needed for Anxiety or Agitation. LORazepam 2021- No [id number] 1mg Take 1 [facility] nivers (ATIVAN) 1 9-12 10-10 tablet by ity of mg tablet 00:00: 00:00 mouth 2 [place] 00 :[place] (two) Medical times Branch daily as needed for Anxiety or Agitation. famotidine 2021-0 Yes [id number] 40mg Take 1 [facility] (PEPCID) 40 9-01 tablet by [facility] of mg tablet 00:00: mouth in [place] 00 the Medical morning. Branch famotidine 2021-0 Yes [id number] 40mg Take 1 [facility] (PEPCID) 40 9-01 tablet by [facility] of mg tablet 00:00: mouth in [place] 00 the Medical morning. Branch famotidine 2021-0 Yes [id number] 40mg Take 1 [facility] (PEPCID) 40 9-01 tablet by [facility] of mg tablet 00:00: mouth in [place] 00 the Medical morning. Branch famotidine 2021-0 Yes [id number] 40mg Take 1 [facility] (PEPCID) 40 9-01 tablet by [facility] of mg tablet 00:00: mouth in [place] 00 the Medical morning. Branch famotidine 2021- No [id number] 40mg Take 1 [facility] (PEPCID) 40 02-06 tablet by it y of mg tablet 00:00: 00:00 mouth in [place] 00 :00 the Medical morning. Branch famotidine 2021- No [id number] 40mg Take 1 [facility] (PEPCID) 40 02-06 tablet by it y of mg tablet 00:00: 00:00 mouth in [place] 00 :00 the Medical morning. Branch Nitrofurant Yes [id number] 100mg Take 1 [facility] oin&Nit. 8-19 capsule by ity o f [place]rocryst 00:00: mouth in [place] ([place]CROB[place]) 00 the Medical 100 mg morning Branch capsule and 1 capsule in the evening. Nitrofurant Yes [id number] 100mg Take 1 [facility] oin&Nit. 8-19 capsule by ity o f [place] 00:00: mouth in [place] ([place]) 00 the Medical 100 mg morning Branch capsule and 1 capsule in the evening. Nitrofurant Yes [id number] 100mg Take 1 [facility] oin&Nit. 8-19 capsule by ity o f [place]ryst 00:00: mouth in [place] ([place]) 00 the Medical 100 mg morning Branch capsule and 1 capsule in the evening. Nitrofurant Yes [id number] 100mg Take 1 [facility] oin&Nit. 8-19 capsule by ity o f [facility]ryst 00:00: mouth in [place] ([place]) 00 the Medical 100 mg morning Branch capsule and 1 capsule in the evening. Nitrofurant Yes [id number] 100mg Take 1 [facility] oin&Nit. 8-19 capsule by ity o f [facility]ryst 00:00: mouth in [place] ([place]) 00 the Medical 100 mg morning Branch capsule and 1 capsule in the evening. Nitrofurant Yes [id number] 100mg Take 1 [facility] oin&Nit. 8-19 capsule by ity o f [facility]ryst 00:00: mouth in [place] ([place]) 00 the Medical 100 mg morning Branch capsule and 1 capsule in the evening. Nitrofurant 2021-0 Yes [id number] 100mg Take 1 [facility] oin&Nit. 8-19 capsule by ity o f Macrocryst 00:00: mouth in [place] ([place]) 00 the Medical 100 mg morning Branch capsule and 1 capsule in the evening. Nitrofurant 2021-0 Yes [id number] 100mg Take 1 [facility] oin&Nit. 8-19 capsule by ity o f Mac[place]ryst 00:00: mouth in [place] ([place]) 00 the Medical 100 mg morning Branch capsule and 1 capsule in the evening. Nitrofurant 2021-0 Yes [id number] 100mg Take 1 [facility] oin&Nit. 8-19 capsule by ity o f Mac[place]ryst 00:00: mouth in [place] ([place]) 00 the Medical 100 mg morning Branch capsule and 1 capsule in the evening. Nitrofurant 2021-0 Yes [id number] 100mg Take 1 [facility] oin&Nit. 8-19 capsule by ity o f [facility]ryst 00:00: mouth in [place] ([place]) 00 the Medical 100 mg morning Branch capsule and 1 capsule in the evening. Nitrofurant 2021-0 Yes [id number] 100mg Take 1 [facility] oin&Nit. 8-19 capsule by ity o f [facility]ryst 00:00: mouth in [place] ([place]) 00 the Medical 100 mg morning Branch capsule and 1 capsule in the evening. Nitrofurant 2021-0 Yes [id number] 100mg Take 1 [facility] oin&Nit. 8-19 capsule by ity o f [facility]ryst 00:00: mouth in [place] ([place]CR[place]) 00 the Medical 100 mg morning Branch capsule and 1 capsule in the evening. Nitrofurant 2021-0 Yes [id number] 100mg Take 1 [facility] oin&Nit. 8-19 capsule by ity o f Macrocryst 00:00: mouth in [place] ([place]CR[place]) 00 the Medical 100 mg morning Branch capsule and 1 capsule in the evening. Nitrofurant 2021-0 Yes [id number] 100mg Take 1 [facility] oin&Nit. 8-19 capsule by ity o f [facility]ryst 00:00: mouth in [place] ([place]CR[place]) 00 the Medical 100 mg morning Branch capsule and 1 capsule in the evening. Nitrofurant Yes [id number] 100mg Take 1 [facility] oin&Nit. 8-19 capsule by ity o f Macrocryst 00:00: mouth in [place] ([place]CR[place]) 00 the Medical 100 mg morning Branch capsule and 1 capsule in the evening. Nitrofurant 0 Yes [id number] 100mg Take 1 [facility] oin&Nit. 8-19 capsule by ity o f [facility]ryst 00:00: mouth in [place] ([place]CROB[place]) 00 the Medical 100 mg morning Branch capsule and 1 capsule in the evening. Nitrofurant Yes [id number] 100mg Take 1 [facility] oin&Nit. 8-19 capsule by ity o f [facility]ryst 00:00: mouth in [place] ([place]CR[place]) 00 the Medical 100 mg morning Branch capsule and 1 capsule in the evening. Nitrofurant Yes [id number] 100mg Take 1 [facility] oin&Nit. 8-19 capsule by ity o f Mac[facility]ryst 00:00: mouth in [place] ([place]CROBID) 00 the Medical 100 mg morning Branch capsule and 1 capsule in the evening. Nitrofurant Yes [id number] 100mg Take 1 [facility] oin&Nit. 8-19 capsule by ity o f [facility]ryst 00:00: mouth in [place] ([place]CROBID) 00 the Medical 100 mg morning Branch capsule and 1 capsule in the evening. Nitrofurant Yes [id number] 100mg Take 1 [facility] oin&Nit. 8-19 capsule by ity o f [facility]ryst 00:00: mouth in [place] ([place]CROBID) 00 the Medical 100 mg morning Branch capsule and 1 capsule in the evening. Nitrofurant 0 Yes [id number] 100mg Take 1 [facility] oin&Nit. 8-19 capsule by ity o f Mac[facility]ryst 00:00: mouth in [place] ([place]CR[place]) 00 the Medical 100 mg morning Branch capsule and 1 capsule in the evening. Nitrofurant 0 Yes [id number] 100mg Take 1 [facility] oin&Nit. 8-19 capsule by ity o f [facility]ryst 00:00: mouth in [place] ([place]CROBID) 00 the Medical 100 mg morning Branch capsule and 1 capsule in the evening. Nitrofurant Yes [id number] 100mg Take 1 [facility] oin&Nit. 8-19 capsule by ity o f Macrocryst 00:00: mouth in [place] ([place]CROBID) 00 the Medical 100 mg morning Branch capsule and 1 capsule in the evening. Nitrofurant Yes [id number] 100mg Take 1 [facility] oin&Nit. 8-19 capsule by ity o f Macrocryst 00:00: mouth in [place] ([place]CROBID) 00 the Medical 100 mg morning Branch capsule and 1 capsule in the evening. Nitrofurant Yes [id number] 100mg Take 1 [facility] oin&Nit. 8-19 capsule by ity o f Macrocryst 00:00: mouth in [place] ([place]CROBID) 00 the Medical 100 mg morning Branch capsule and 1 capsule in the evening. Nitrofurant Yes [id number] 100mg Take 1 [facility] oin&Nit. 8-19 capsule by ity o f [facility]rocryst 00:00: mouth in [place] ([place]CROBID) 00 the Medical 100 mg morning Branch capsule and 1 capsule in the evening. Nitrofurant Yes [id number] 100mg Take 1 [facility] oin&Nit. 8-19 capsule by ity o f [facility]ryst 00:00: mouth in [place] ([place]CROBID) 00 the Medical 100 mg morning Branch capsule and 1 capsule in the evening. Nitrofurant Yes [id number] 100mg Take 1 [facility] oin&Nit. 8-19 capsule by ity o f [facility] 00:00: mouth in [place] ([place]CROBID) 00 the Medical 100 mg morning Branch capsule and 1 capsule in the evening. Nitrofurant Yes [id number] 100mg Take 1 [facility] oin&Nit. 8-19 capsule by ity o f [facility] 00:00: mouth in [place] ([place]CROBID) 00 the Medical 100 mg morning Branch capsule and 1 capsule in the evening. Nitrofurant Yes [id number] 100mg Take 1 [facility] oin&Nit. 8-19 capsule by ity o f Macrocryst 00:00: mouth [place] (MACROBID) 00 the Medical 100 mg morning Branch capsule and 1 capsule in the evening. Nitrofurant Yes [id number] 100mg Take 1 [facility] oin&Nit. 8-19 capsule by ity o f Macrocryst 00:00: mouth [place] (MACROBID) 00 the Medical 100 mg morning Branch capsule and 1 capsule in the evening. Nitrofurant Yes [id number] 100mg Take 1 [facility] oin&Nit. 8-19 capsule by ity o f Macrocryst 00:00: mouth [place] (MACROBID) 00 the Medical 100 mg morning Branch capsule and 1 capsule in the evening. Nitrofurant Yes [id number] 100mg Take 1 [facility] oin&Nit. 8-19 capsule by ity o f Macrocryst 00:00: mouth [place] (MACROBID) 00 the Medical 100 mg morning Branch capsule and 1 capsule in the evening. Nitrofurant Yes [id number] 100mg Take 1 [facility] oin&Nit. 8-19 capsule by ity o f Macrocryst 00:00: mouth [place] (MACROBID) 00 the Medical 100 mg morning Branch capsule and 1 capsule in the evening. Nitrofurant Yes [id number] 100mg Take 1 [facility] oin&Nit. 8-19 capsule by ity o f Macrocryst 00:00: mouth [place] (MACROBID) 00 the Medical 100 mg morning Branch capsule and 1 capsule in the evening. Insulin Yes [id number] Use as [facility] [place], 8-10 directed ity of Disposable, 00:00: [place] (NOVOFINE 00 Medical 32) 32 Branch gauge x 1/4" Ndle Insulin Yes [id number] Use as [facility] [place], 8-10 directed ity of Disposable, 00:00: [place] (NOVOFINE 00 Medical 32) 32 Branch gauge x 1/4" Ndle Insulin Yes [id number] Use as [facility] [place], 8-10 directed ity of Disposable, 00:00: [place] (NOVOFINE 00 Medical 32) 32 Branch gauge x 1/4" Ndle Insulin Yes [id number] Use as [facility] [place], 8-10 directed ity of Disposable, 00:00: [place] (NOVOFINE 00 Medical ) 32 Branch gauge x 1/4" Ndle Insulin 2022-0 Yes [id number] Use as [facility] [place], 8-10 directed ity of Disposable, 00:00: [place] (NOVOFINE [place] [address]) 32 Branch gauge x 1/4" Ndle Insulin 2022-0 Yes [id number] Use as [facility] [place], 8-10 directed ity of Disposable, 00:00: [place] (NOVOFINE [place] [address]) 32 Branch gauge x 1/4" Ndle Insulin 2022-0 Yes [id number] Use as [facility] [place], 8-10 directed ity of Disposable, 00:00: [place] (NOVOFINE [place] [address]) 32 Branch gauge x 1/4" Ndle Insulin 202-0 Yes [id number] Use as [facility] [place], 8-10 directed ity of Disposable, 00:00: [place] (NOVOFINE [place] [address]) 32 Branch gauge x 1/4" Ndle Insulin 202-0 Yes [id number] Use as [facility] [place], 8-10 directed ity of Disposable, 00:00: [place] (NOVOFINE [place] [address]) 32 Branch gauge x 1/4" Ndle Insulin 202-0 Yes [id number] Use as [facility] [place], 8-10 directed ity of Disposable, 00:00: [place] (NOVOFINE [place] [address]) 32 Branch gauge x 1/4" Ndle Insulin 202-0 Yes [id number] Use as [facility] [place], 8-10 directed ity of Disposable, 00:00: [place] (NOVOFINE [place] [address]) 32 Branch gauge x 1/4" Ndle Insulin 2022-0 Yes [id number] Use as [facility] [place], 8-10 directed ity of Disposable, 00:00: [place] (NOVOFINE [place] [address]) 32 Branch gauge x 1/4" Ndle Insulin 2022-0 Yes [id number] Use as [facility] [place], 8-10 directed ity of Disposable, 00:00: [place] (NOVOFINE [place] [address]) 32 Branch gauge x 1/4" Ndle Insulin 2022-0 Yes [id number] Use as [facility] [place], 8-10 directed ity of Disposable, 00:00: [place] (NOVOFINE [place] [address]) 32 Branch gauge x 1/4" Ndle Insulin 2022-0 Yes [id number] Use as [facility] [place], 8-10 directed ity of Disposable, 00:00: [place] (NOVOFINE [place] [address]) 32 Branch gauge x 1/4" Ndle Insulin 2022-0 Yes [id number] Use as [facility] [place], 8-10 directed ity of Disposable, 00:00: [place] (NOVOFINE [place] [address]) 32 Branch gauge x 1/4" Ndle Insulin 2022-0 Yes [id number] Use as [facility] [place], 8-10 directed ity of Disposable, 00:00: [place] (NOVOFINE [place] [address]) 32 Branch gauge x 1/4" Ndle Insulin 2022-0 Yes [id number] Use as [facility] [place], 8-10 directed ity of Disposable, 00:00: [place] (NOVOFINE [place] [address]) 32 Branch gauge x 1/4" Ndle Insulin 2022-0 Yes [id number] Use as [facility] [place], 8-10 directed ity of Disposable, 00:00: [place] (NOVOFINE [place] [address]) 32 Branch gauge x 1/4" Ndle Insulin 2022-0 Yes [id number] Use as [facility] [place], 8-10 directed ity of Disposable, 00:00: [place] (NOVOFINE [place] [address]) 32 Branch gauge x 1/4" Ndle Insulin 2022-0 Yes [id number] Use as [facility] [place], 8-10 directed ity of Disposable, 00:00: [place] (NOVOFINE [place] [address]) 32 Branch gauge x 1/4" Ndle Insulin 2022-0 Yes [id number] Use as [facility] [place], 8-10 directed ity of Disposable, 00:00: [place] (NOVOFINE [place] [address]) 32 Branch gauge x 1/4" Ndle Insulin 2022-0 Yes [id number] Use as [facility] [place], 8-10 directed ity of Disposable, 00:00: [place] (NOVOFINE [place] [address]) 32 Branch gauge x 1/4" Ndle Insulin 2022-0 Yes [id number] Use as [facility] [place], 8-10 directed ity of Disposable, 00:00: [place] (NOVOFINE [place] [address]) 32 Branch gauge x 1/4" Ndle Insulin 2022-0 Yes [id number] Use as [facility] [place], 8-10 directed ity of Disposable, 00:00: [place] (NOVOFINE [place] [address]) 32 Branch gauge x 1/4" Ndle Insulin 2022-0 Yes [id number] Use as [facility] [place], 8-10 directed ity of Disposable, 00:00: [place] (NOVOFINE [place] [address]) 32 Branch gauge x 1/4" Ndle Insulin 2021-0 Yes [id number] Use as [facility] [place], 8-10 directed ity of Disposable, 00:00: [place] (NOVOFINE [place] [address]) 32 Branch gauge x 1/4" Ndle Insulin 2021-0 Yes [id number] Use as [facility] [place], 8-10 directed ity of Disposable, 00:00: [place] (NOVOFINE [place] [address]) Branch gauge x 1/4" Ndle Insulin 2021-0 Yes [id number] Use as [facility] [place], 8-10 directed ity of Disposable, 00:00: [place] (NOVOFINE [place] [address]) Branch gauge x 1/4" Ndle Insulin 2021-0 Yes [id number] Use as [facility] [place], 8-10 directed ity of Disposable, 00:00: [place] (NOVOFINE [place] [address]) Branch gauge x 1/4" Ndle Insulin 2021-0 Yes [id number] Use as [facility] [place], 8-10 directed ity of Disposable, 00:00: [place] (NOVOFINE [place] [address]) Branch gauge x 1/4" Ndle Insulin 2021-0 Yes [id number] Use as [facility] [place], 8-10 directed ity of Disposable, 00:00: [place] (NOVOFINE [place] [address]) 32 Branch gauge x 1/4" Ndle Insulin 2021-0 Yes [id number] Use as [facility] [place], 8-10 directed ity of Disposable, 00:00: [place] (NOVOFINE [place] [address]) Branch gauge x 1/4" Ndle Insulin 2021-0 Yes [id number] Use as [facility] [place], 8-10 directed ity of Disposable, 00:00: [place] (NOVOFINE [place] [address]) Branch gauge x 1/4" Ndle Insulin 2021-0 Yes [id number] Use as [facility] [place], 8-10 directed ity of Disposable, 00:00: [place] (NOVOFINE [place] [address]) 32 Branch gauge x 1/4" Ndle LORazepam 2021-0 202- No [id number] 1mg Take 1 U nivers (ATIVAN) 1 8-10 09-10 tablet by ity of mg tablet 00:00: 00:[place] mouth [place] 00 :[place] (two) Medical times Branch daily as needed for Anxiety or Agitation. LORazepam 2021- No [id number] 1mg Take 1 U nivers (ATIVAN) 1 01-15 tablet by ity of mg tablet 00:00: 00:[place] mouth [place] 00 :[place] (two) Medical times Branch daily as needed for Anxiety or Agitation. famotidine 2021- No [id number] 40mg Take 1 [facility] (PEPCID) 40 01-08 tablet by it y of mg tablet 00:00: 00:00 mouth [place] 00 :00 the Medical morning. Branch famotidine 2021- No [id number] 40mg Take 1 [facility] (PEPCID) 40 01-08 tablet by it y of mg tablet 00:00: 00:00 mouth [place] 00 :00 the Medical morning. Branch lamoTRIgine Yes [id number] 200mg Take 2 [facility] 100 mg 6-17 tablets by ity of tablet 00:00: mouth [place] 00 daily. Medical Branch prazosin Yes [id number] 1mg Take 1 U nivers mg capsule 6-17 capsule by ity of 00:00: mouth at [place] 00 bedtime. Medical Branch lamoTRIgine Yes [id number] 200mg Take 2 [facility] 100 mg 6-17 tablets by ity of tablet 00:00: mouth [place] 00 daily. Medical Branch prazosin Yes [id number] 1mg Take 1 U nivers mg capsule 6-17 capsule by ity of 00:00: mouth at [place] [address] bedtime. Medical Branch lamoTRIgine Yes [id number] 200mg Take 2 [facility] 100 mg 6-17 tablets by ity of tablet 00:00: mouth [place] 00 daily. Medical Branch prazosin 1 Yes [id number] 1mg Take 1 U nivers mg capsule 6-17 capsule by ity of 00:00: mouth at [place] 00 bedtime. Medical Branch lamoTRIgine Yes [id number] 200mg Take 2 [facility] 100 mg 6-17 tablets by ity of tablet 00:00: mouth [place] 00 daily. Medical Branch prazosin 1 Yes [id number] 1mg Take 1 U nivers mg capsule 6-17 capsule by ity of 00:00: mouth at [place] 00 bedtime. Medical Branch lamoTRIgine 2021-0 Yes [id number] 200mg Take 2 [facility] 100 mg 6-17 tablets by ity of tablet 00:00: mouth [place] 00 daily. Medical Branch prazosin 1 2021-0 Yes [id number] 1mg Take 1 U nivers mg capsule 6-17 capsule by ity of 00:00: mouth at [place] 00 bedtime. Medical Branch lamoTRIgine 2021-0 Yes [id number] 200mg Take 2 [facility] 100 mg 6-17 tablets by ity of tablet 00:00: mouth [place] 00 daily. Medical Branch prazosin 1 2021- Yes [id number] 1mg Take 1 U nivers mg capsule 6-17 capsule by ity of 00:00: mouth at [place] 00 bedtime. Medical Branch lamoTRIgine 2021- No [id number] 200mg Take 2 [facility] 100 mg 6-17 10-10 tablets by ity of tablet 00:00: 00:00 mouth [place] 00 :00 daily. Medical Branch prazosin 1 2021- No [id number] 1mg Take 1 [facility] mg capsule 6-17 10-10 capsule by it y of 00:00: 00:00 mouth at [place] 00 :00 bedtime. Medical Branch hydrOXYzine 2021-2021- No [id number] 25mg Take 1 [facility] 25 mg 6-17 08-19 tablet by ity of tablet 00:00: 00:00 mouth at [place] 00 :00 bedtime as Medical needed for Branch Anxiety or Other (insomnia) . hydrOXYzine 2021- No [id number] 25mg Take 1 [facility] 25 mg 6-17 08-19 tablet by ity of tablet 00:00: 00:00 mouth at [place] 00 :00 bedtime as Medical needed for Branch Anxiety or Other (insomnia) . metoprolol 2021-0 Yes [id number] 50mg Take 1 U nivers succinate 5-06 tablet by ity o f XL 50 mg 24 00:00: mouth [place] hr tablet 00 daily. Medical Branch metoprolol 2021-0 Yes [id number] 50mg Take 1 U nivers succinate 5-06 tablet by ity o f XL 50 mg 24 00:00: mouth [place] hr tablet 00 daily. Medical Branch metoprolol Yes [id number] 50mg Take 1 U nivers succinate 5-06 tablet by ity o f XL 50 mg 24 00:00: mouth [place] hr tablet 00 daily. Medical Branch metoprolol Yes [id number] 50mg Take 1 U nivers succinate 5-06 tablet by ity o f XL 50 mg 24 00:00: mouth [place] hr tablet 00 daily. Medical Branch metoprolol Yes [id number] 50mg Take 1 U nivers succinate 5-06 tablet by ity o f XL 50 mg 24 00:00: mouth [place] hr tablet 00 daily. Medical Branch metoprolol Yes [id number] 50mg Take 1 U nivers succinate 5-06 tablet by ity o f XL 50 mg 24 00:00: mouth [place] hr tablet 00 daily. Medical Branch metoprolol Yes [id number] 50mg Take 1 U nivers succinate 5-06 tablet by ity o f XL 50 mg 24 00:00: mouth [place] hr tablet 00 daily. Medical Branch metoprolol Yes [id number] 50mg Take 1 U nivers succinate 5-06 tablet by ity o f XL 50 mg 24 00:00: mouth [place] hr tablet 00 daily. Medical Branch metoprolol Yes [id number] 50mg Take 1 U nivers succinate 5-06 tablet by ity o f XL 50 mg 24 00:00: mouth [place] hr tablet 00 daily. Medical Branch metoprolol Yes [id number] 50mg Take 1 U nivers succinate 5-06 tablet by ity o f XL 50 mg 24 00:00: mouth [place] hr tablet 00 daily. Medical Branch metoprolol Yes [id number] 50mg Take 1 U nivers succinate 5-06 tablet by ity o f XL 50 mg 24 00:00: mouth [place] hr tablet 00 daily. Medical Branch metoprolol Yes [id number] 50mg Take 1 U nivers succinate 5-06 tablet by ity o f XL 50 mg 24 00:00: mouth [place] hr tablet 00 daily. Medical Branch metoprolol Yes [id number] 50mg Take 1 U nivers succinate 5-06 tablet by ity o f XL 50 mg 24 00:00: mouth [place] hr tablet 00 daily. Medical Branch metoprolol Yes [id number] 50mg Take 1 U nivers succinate 5-06 tablet by ity o f XL 50 mg 24 00:00: mouth [place] hr tablet 00 daily. Medical Branch metoprolol Yes [id number] 50mg Take 1 U nivers succinate 5-06 tablet by ity o f XL 50 mg 24 00:00: mouth [place] hr tablet 00 daily. Medical Branch metoprolol Yes [id number] 50mg Take 1 U nivers succinate 5-06 tablet by ity o f XL 50 mg 24 00:00: mouth [place] hr tablet 00 daily. Medical Branch metoprolol Yes [id number] 50mg Take 1 U nivers succinate 5-06 tablet by ity o f XL 50 mg 24 00:00: mouth [place] hr tablet 00 daily. Medical Branch metoprolol Yes [id number] 50mg Take 1 U nivers succinate 5-06 tablet by ity o f XL 50 mg 24 00:00: mouth [place] hr tablet 00 daily. Medical Branch metoprolol Yes [id number] 50mg Take 1 U nivers succinate 5-06 tablet by ity o f XL 50 mg 24 00:00: mouth [place] hr tablet 00 daily. Medical Branch metoprolol Yes [id number] 50mg Take 1 U nivers succinate 5-06 tablet by ity o f XL 50 mg 24 00:00: mouth [place] hr tablet 00 daily. Medical Branch metoprolol Yes [id number] 50mg Take 1 U nivers succinate 5-06 tablet by ity o f XL 50 mg 24 00:00: mouth [place] hr tablet 00 daily. Medical Branch metoprolol Yes [id number] 50mg Take 1 U nivers succinate 5-06 tablet by ity o f XL 50 mg 24 00:00: mouth [place] hr tablet 00 daily. Medical Branch metoprolol Yes [id number] 50mg Take 1 U nivers succinate 5-06 tablet by ity o f XL 50 mg 24 00:00: mouth [place] hr tablet 00 daily. Medical Branch metoprolol Yes [id number] 50mg Take 1 U nivers succinate 5-06 tablet by ity o f XL 50 mg 24 00:00: mouth [place] hr tablet 00 daily. Medical Branch metoprolol Yes [id number] 50mg Take 1 U nivers succinate 5-06 tablet by ity o f XL 50 mg 24 00:00: mouth [place] hr tablet 00 daily. Medical Branch metoprolol Yes [id number] 50mg Take 1 U nivers succinate 5-06 tablet by ity o f XL 50 mg 24 00:00: mouth [place] hr tablet 00 daily. Medical Branch metoprolol Yes [id number] 50mg Take 1 U nivers succinate 5-06 tablet by ity o f XL 50 mg 24 00:00: mouth [place] hr tablet 00 daily. Medical Branch metoprolol Yes [id number] 50mg Take 1 U nivers succinate 5-06 tablet by ity o f XL 50 mg 24 00:00: mouth [place] hr tablet 00 daily. Medical Branch metoprolol Yes [id number] 50mg Take 1 U nivers succinate 5-06 tablet by ity o f XL 50 mg 24 00:00: mouth [place] hr tablet 00 daily. Medical Branch metoprolol Yes [id number] 50mg Take 1 U nivers succinate 5-06 tablet by ity o f XL 50 mg 24 00:00: mouth [place] hr tablet 00 daily. Medical Branch metoprolol Yes [id number] 50mg Take 1 U nivers succinate 5-06 tablet by ity o f XL 50 mg 24 00:00: mouth [place] hr tablet 00 daily. [facility] Branch metoprolol Yes [id number] 50mg Take 1 U nivers succinate 5-06 tablet by ity o f XL 50 mg 24 00:00: mouth [place] hr tablet 00 daily. Medical Branch metoprolol Yes [id number] 50mg Take 1 U nivers succinate 5-06 tablet by ity o f XL 50 mg 24 00:00: mouth [place] hr tablet 00 daily. Medical Branch metoprolol Yes [id number] 50mg Take 1 U nivers succinate 5-06 tablet by ity o f XL 50 mg 24 00:00: mouth [place] hr tablet 00 daily. [facility] Branch metoprolol Yes [id number] 50mg Take 1 U nivers succinate 5-06 tablet by ity o f XL 50 mg 24 00:00: mouth [place] hr tablet 00 daily. Medical Branch Insulin Yes [id number] Use to Uni vers Syringe-Nee 3-02 inject ity of dle U-100 1 00:00: insulin 4X [place] mL 31 gauge 00 daily. Medica l x 5/16 Syrg DX:[id number] [facility] Insulin Yes [id number] Use to Uni vers Syringe-Nee 3-02 inject ity of dle U-100 1 00:00: insulin 4X [place] mL 31 gauge 00 daily. Medica l x 5/16 Syrg DX:[id number] [facility] Insulin Yes [id number] Use to Uni vers Syringe-Nee 3-02 inject ity of dle U-100 1 00:00: insulin 4X [place] mL 31 gauge 00 daily. Medica l x 516 Syrg DX:[id number] [facility] Insulin Yes [id number] Use to Uni vers Syringe-Nee 3-02 inject ity of dle U-100 1 00:00: insulin 4X [place] mL 31 gauge 00 daily. Medica l x 516 Syrg DX:[id number] [facility] Insulin Yes [id number] Use to Uni vers Syringe-Nee 3-02 inject ity of dle U-100 1 00:00: insulin 4X [place] mL 31 gauge 00 daily. Medica l x 516 Syrg DX:[id number] [facility] Insulin Yes [id number] Use to Uni vers Syringe-Nee 3-02 inject ity of dle U-100 1 00:00: insulin 4X [place] mL 31 gauge 00 daily. Medica l x 5/16 Syrg DX:[id number] [facility] Insulin Yes [id number] Use to Uni vers Syringe-Nee 3-02 inject ity of dle U-100 1 00:00: insulin 4X [place] mL 31 gauge 00 daily. Medica l x 5/16 Syrg DX:[id number] [facility] Insulin Yes [id number] Use to Uni vers Syringe-Nee 3-02 inject ity of dle U-100 1 00:00: insulin 4X [place] mL 31 gauge 00 daily. Medica l x 5/16 Syrg DX:[id number] [facility] Insulin 2022-0 Yes [id number] Use to Uni vers Syringe-Nee 3-02 inject ity of dle U-100 1 00:00: insulin 4X [place] mL 31 gauge 00 daily. Medica l x 5/16 Syrg DX:[id number] [facility] Insulin Yes [id number] Use to Uni vers Syringe-Nee 3-02 inject ity of dle U-100 1 00:00: insulin 4X [place] mL 31 gauge 00 daily. Medica l x 5/16 Syrg DX:[id number] [facility] Insulin Yes [id number] Use to Uni vers Syringe-Nee 3-02 inject ity of dle U-100 1 00:00: insulin 4X [place] mL 31 gauge 00 daily. Medica l x 516 Syrg DX:[id number] [facility] Insulin Yes [id number] Use to Uni vers Syringe-Nee 3-02 inject ity of dle U-100 1 00:00: insulin 4X [place] mL 31 gauge 00 daily. Medica l x 516 Syrg DX:[id number] [facility] Insulin Yes [id number] Use to Uni vers Syringe-Nee 3-02 inject ity of dle U-100 1 00:00: insulin 4X [place] mL 31 gauge 00 daily. Medica l x 516 Syrg DX:[id number] [facility] Insulin Yes [id number] Use to Uni vers Syringe-Nee 3-02 inject ity of dle U-100 1 00:00: insulin 4X [place] mL 31 gauge 00 daily. Medica l x 5/16 Syrg DX:[id number] [facility] Insulin Yes [id number] Use to Uni vers Syringe-Nee 3-02 inject ity of dle U-100 1 00:00: insulin 4X [place] mL 31 gauge 00 daily. Medica l x 5/16 Syrg DX:[id number] [facility] Insulin Yes [id number] Use to Uni vers Syringe-Nee 3-02 inject ity of dle U-100 1 00:00: insulin 4X [place] mL 31 gauge 00 daily. Medica l x 5/16 Syrg DX:[id number] [facility] Insulin Yes [id number] Use to Uni vers Syringe-Nee 3-02 inject ity of dle U-100 1 00:00: insulin 4X [place] mL 31 gauge 00 daily. Medica l x 516 Syrg DX:[id number] [facility] Insulin Yes [id number] Use to Uni vers Syringe-Nee 3-02 inject ity of dle U-100 1 00:00: insulin 4X [place] mL 31 gauge 00 daily. Medica l x 516 Syrg DX:[id number] [facility] Insulin Yes [id number] Use to Uni vers Syringe-Nee 3-02 inject ity of dle U-100 1 00:00: insulin 4X [place] mL 31 gauge 00 daily. Medica l x 516 Syrg DX:[id number] [facility] Insulin Yes [id number] Use to Uni vers Syringe-Nee 3-02 inject ity of dle U-100 1 00:00: insulin 4X [place] mL 31 gauge 00 daily. Medica l x 516 Syrg DX:[id number] [facility] Insulin 2021- No [id number] Use to Un kendra Syringe-Nee -23 inject ity o f dle U-100 1 00:00: 00:00 insulin 4X [place] mL 31 gauge 00 :00 daily. Medica l x 516 Syrg DX:[id number] [facility] Insulin 2021- No [id number] Use to Un kendra Syringe-Nee 3-04-30 inject ity o f dle U-100 1 00:00: 00:00 insulin 4X [place] mL 31 gauge 00 :00 daily. Medica l x 516 Syrg DX:[id number] [facility] insulin Yes [id number] 160 to Uni vers aspart 2-09 200, 1 u, ity of U-100 00:00: 201 to [place] (NOVOLOG 00 240, 2 u. Medica l FLEXPEN BG 241 to Branch U-100 280, 3 INSULIN) unit. BG 100 unit/mL 281 to (3 mL) 300, 4 injection units. BG > 300, 5 units, recheck in 3 hours and cover with s/s insulin Yes [id number] inject 20 [facility] glargine 2-09 Units ity of (LANTUS 00:00: under the [place] U-100 00 skin twice Medical INSULIN) a day. Branch 100 unit/mL injection insulin Yes [id number] 160 to Uni vers aspart 2-09 200, 1 u, ity of U-100 00:00: 201 to [place] (NOVOLOG 00 240, 2 u. Medica l FLEXPEN BG 241 to Branch U-100 280, 3 INSULIN) unit. BG 100 unit/mL 281 to (3 mL) 300, 4 injection units. BG > 300, 5 units, recheck in 3 hours and cover with s/s insulin Yes [id number] inject 20 [facility] glargine 2-09 Units ity of (LANTUS 00:00: under the [place] U-100 00 skin twice Medical INSULIN) a day. Branch 100 unit/mL injection insulin Yes [id number] 160 to Uni vers aspart 2-09 200, 1 u, ity of U-100 00:00: 201 to [place] (NOVOLOG 00 240, 2 u. Medica l FLEXPEN BG 241 to Branch U-100 280, 3 INSULIN) unit. BG 100 unit/mL 281 to (3 mL) 300, 4 injection units. BG > 300, 5 units, recheck in 3 hours and cover with s/s insulin Yes [id number] inject 20 [facility] glargine 2-09 Units ity of (LANTUS 00:00: under the [place] U-100 00 skin twice Medical INSULIN) a day. Branch 100 unit/mL injection insulin Yes [id number] 160 to Uni vers aspart 2-09 200, 1 u, ity of U-100 00:00: 201 to [place] (NOVOLOG 00 240, 2 u. Medica l FLEXPEN BG 241 to Branch U-100 280, 3 INSULIN) unit. BG 100 unit/mL 281 to (3 mL) 300, 4 injection units. BG > 300, 5 units, recheck in 3 hours and cover with s/s insulin Yes [id number] inject 20 [facility] glargine 2-09 Units ity of (LANTUS 00:00: under the [place] U-100 00 skin twice Medical INSULIN) a day. Branch 100 unit/mL injection insulin 2021-0 Yes [id number] 160 to Uni vers aspart 2-09 200, 1 u, ity of U-100 00:00: 201 to [place] (NOVOLOG 00 240, 2 u. Medica l FLEXPEN BG 241 to Branch U-100 280, 3 INSULIN) unit. BG 100 unit/mL 281 to (3 mL) 300, 4 injection units. BG > 300, 5 units, recheck in 3 hours and cover with s/s insulin 2021-0 Yes [id number] inject 20 [facility] glargine 2-09 Units ity of (LANTUS 00:00: under the [place] U-100 00 skin twice Medical INSULIN) a day. Branch 100 unit/mL injection insulin 0 Yes [id number] 160 to Uni vers aspart 2-09 200, 1 u, ity of U-100 00:00: 201 to [place] (NOVOLOG 00 240, 2 u. Medica l FLEXPEN BG 241 to Branch U-100 280, 3 INSULIN) unit. BG 100 unit/mL 281 to (3 mL) 300, 4 injection units. BG > 300, 5 units, recheck in 3 hours and cover with s/s insulin 2021-0 Yes [id number] inject 20 [facility] glargine 2-09 Units ity of (LANTUS 00:00: under the [place] U-100 00 skin twice Medical INSULIN) a day. Branch 100 unit/mL injection insulin 2021-0 Yes [id number] 160 to Uni vers aspart 2-09 200, 1 u, ity of U-100 00:00: 201 to [place] (NOVOLOG 00 240, 2 u. Medica l FLEXPEN BG 241 to Branch U-100 280, 3 INSULIN) unit. BG 100 unit/mL 281 to (3 mL) 300, 4 injection units. BG > 300, 5 units, recheck in 3 hours and cover with s/s insulin 2021-0 Yes [id number] inject 20 [facility] glargine 2-09 Units ity of (LANTUS 00:00: under the [place] U-100 00 skin twice Medical INSULIN) a day. Branch 100 unit/mL injection insulin 2021-0 Yes [id number] 160 to Uni vers aspart 2-09 200, 1 u, ity of U-100 00:00: 201 to [place] (NOVOLOG 00 240, 2 u. Medica l FLEXPEN BG 241 to Branch U-100 280, 3 INSULIN) unit. BG 100 unit/mL 281 to (3 mL) 300, 4 injection units. BG > 300, 5 units, recheck in 3 hours and cover with s/s insulin 0 Yes [id number] inject 20 [facility] glargine 2-09 Units ity of (LANTUS 00:00: under the [place] U-100 00 skin twice Medical INSULIN) a day. Branch 100 unit/mL injection insulin Yes [id number] 160 to Uni vers aspart 2-09 200, 1 u, ity of U-100 00:00: 201 to [place] (NOVOLOG 00 240, 2 u. Medica l FLEXPEN BG 241 to Branch U-100 280, 3 INSULIN) unit. BG 100 unit/mL 281 to (3 mL) 300, 4 injection units. BG > 300, 5 units, recheck in 3 hours and cover with s/s insulin Yes [id number] inject 20 [facility] glargine 2-09 Units ity of (LANTUS 00:00: under the [place] U-100 00 skin twice Medical INSULIN) a day. Branch 100 unit/mL injection insulin Yes [id number] 160 to Uni vers aspart 2-09 200, 1 u, ity of U-100 00:00: to [place] (NOVOLOG 00 240, 2 u. Medica l FLEXPEN BG 241 to Branch U-100 280, 3 INSULIN) unit. BG 100 unit/mL 281 to (3 mL) 300, 4 injection units. BG > 300, 5 units, recheck in 3 hours and cover with s/s insulin Yes [id number] inject 20 [facility] glargine 2-09 Units ity of (LANTUS 00:00: under the [place] U-100 00 skin twice Medical INSULIN) a day. Branch 100 unit/mL injection insulin Yes [id number] 160 to Uni vers aspart 2-09 200, 1 u, ity of U-100 00:00: 201 to [place] (NOVOLOG 00 240, 2 u. Medica l FLEXPEN BG 241 to Branch U-100 280, 3 INSULIN) unit. BG 100 unit/mL 281 to (3 mL) 300, 4 injection units. BG > 300, 5 units, recheck in 3 hours and cover with s/s insulin 0 Yes [id number] inject 20 [facility] glargine 2-09 Units ity of ([place]US 00:00: under the [place] U-100 00 skin twice Medical INSULIN) a day. Branch 100 unit/mL injection insulin Yes [id number] 160 to [facility] vers aspart 2-09 200, 1 u, ity of U-100 00:00: 201 to [place] (NOVOLOG 00 240, 2 u. Medica l FLEXPEN BG 241 to Branch U-100 280, 3 INSULIN) unit. BG 100 unit/mL 281 to (3 mL) 300, 4 injection units. BG > 300, 5 units, recheck in 3 hours and cover with s/s insulin Yes [id number] inject 20 [facility] glargine 2-09 Units ity of ([place]US 00:00: under the [place] U-100 00 skin twice Medical INSULIN) a day. Branch 100 unit/mL injection insulin Yes [id number] 160 to [facility] vers aspart 2-09 200, 1 u, ity of U-100 00:00: 201 to [place] (NOVOLOG 00 240, 2 u. Medica l FLEXPEN BG 241 to Branch U-100 280, 3 INSULIN) unit. BG 100 unit/mL 281 to (3 mL) 300, 4 injection units. BG > 300, 5 units, recheck in 3 hours and cover with s/s insulin Yes [id number] 160 to [facility] vers aspart 2-09 200, 1 u, ity of U-100 00:00: 201 to [place] (NOVOLOG 00 240, 2 u. Medica l FLEXPEN BG 241 to Branch U-100 280, 3 INSULIN) unit. BG 100 unit/mL 281 to (3 mL) 300, 4 injection units. BG > 300, 5 units, recheck in 3 hours and cover with s/s insulin 2021-0 Yes [id number] 160 to [facility] vers aspart 2-09 200, 1 u, ity of U-100 00:00: 201 to [place] (NOVOLOG 00 240, 2 u. Medica l FLEXPEN BG 241 to Branch U-100 280, 3 INSULIN) unit. BG 100 unit/mL 281 to (3 mL) 300, 4 injection units. BG > 300, 5 units, recheck in 3 hours and cover with s/s insulin 202-0 Yes [id number] 160 to [facility] vers aspart 2-09 200, 1 u, ity of U-100 00:00: 201 to [place] (NOVOLOG 00 240, 2 u. Medica l FLEXPEN BG 241 to Branch U-100 280, 3 INSULIN) unit. BG 100 unit/mL 281 to (3 mL) 300, 4 injection units. BG > 300, 5 units, recheck in 3 hours and cover with s/s insulin 202-0 Yes [id number] 160 to [facility] vers aspart 2-09 200, 1 u, ity of U-100 00:00: 201 to [place] (NOVOLOG 00 240, 2 u. Medica l FLEXPEN BG 241 to Branch U-100 280, 3 INSULIN) unit. BG 100 unit/mL 281 to (3 mL) 300, 4 injection units. BG > 300, 5 units, recheck in 3 hours and cover with s/s insulin 2021-0 Yes [id number] 160 to [facility] vers aspart 2-09 200, 1 u, ity of U-100 00:00: 201 to [place] (NOVOLOG 00 240, 2 u. Medica l FLEXPEN BG 241 to Branch U-100 280, 3 INSULIN) unit. BG 100 unit/mL 281 to (3 mL) 300, 4 injection units. BG > 300, 5 units, recheck in 3 hours and cover with s/s insulin 2021-0 Yes [id number] 160 to [facility] vers aspart 2-09 200, 1 u, ity of U-100 00:00: 201 to [place] (NOVOLOG 00 240, 2 u. Medica l FLEXPEN BG 241 to Branch U-100 280, 3 INSULIN) unit. BG 100 unit/mL 281 to (3 mL) 300, 4 injection units. BG > 300, 5 units, recheck in 3 hours and cover with s/s insulin 2022-0 Yes [id number] 160 to [facility] vers aspart 2-09 200, 1 u, ity of U-100 00:00: 201 to [place] (NOVOLOG 00 240, 2 u. Medica l FLEXPEN BG 241 to Branch U-100 280, 3 INSULIN) unit. BG 100 unit/mL 281 to (3 mL) 300, 4 injection units. BG > 300, 5 units, recheck in 3 hours and cover with s/s insulin 2021-0 Yes [id number] 160 to [facility] vers aspart 2-09 200, 1 u, ity of U-100 00:00: 201 to [place] (NOVOLOG 00 240, 2 u. Medica l FLEXPEN BG 241 to Branch U-100 280, 3 INSULIN) unit. BG 100 unit/mL 281 to (3 mL) 300, 4 injection units. BG > 300, 5 units, recheck in 3 hours and cover with s/s insulin 2021-0 Yes [id number] 160 to [facility] vers aspart 2-09 200, 1 u, ity of U-100 00:00: 201 to [place] (NOVOLOG 00 240, 2 u. Medica l FLEXPEN BG 241 to Branch U-100 280, 3 INSULIN) unit. BG 100 unit/mL 281 to (3 mL) 300, 4 injection units. BG > 300, 5 units, recheck in 3 hours and cover with s/s insulin 2021-0 Yes [id number] 160 to [facility] vers aspart 2-09 200, 1 u, ity of U-100 00:00: 201 to [place] (NOVOLOG 00 240, 2 u. Medica l FLEXPEN BG 241 to Branch U-100 280, 3 INSULIN) unit. BG 100 unit/mL 281 to (3 mL) 300, 4 injection units. BG > 300, 5 units, recheck in 3 hours and cover with s/s insulin 2021-0 Yes [id number] 160 to [facility] vers aspart 2-09 200, 1 u, ity of U-100 00:00: 201 to [place] (NOVOLOG 00 240, 2 u. Medica l FLEXPEN BG 241 to Branch U-100 280, 3 INSULIN) unit. BG 100 unit/mL 281 to (3 mL) 300, 4 injection units. BG > 300, 5 units, recheck in 3 hours and cover with s/s insulin 2021-0 Yes [id number] 160 to [facility] vers aspart 2-09 200, 1 u, ity of U-100 00:00: 201 to [place] (NOVOLOG 00 240, 2 u. Medica l FLEXPEN BG 241 to Branch U-100 280, 3 INSULIN) unit. BG 100 unit/mL 281 to (3 mL) 300, 4 injection units. BG > 300, 5 units, recheck in 3 hours and cover with s/s insulin 2022-0 Yes [id number] 160 to [facility] vers aspart 2-09 200, 1 u, ity of U-100 00:00: 201 to [place] (NOVOLOG 00 240, 2 u. Medica l FLEXPEN BG 241 to Branch U-100 280, 3 INSULIN) unit. BG 100 unit/mL 281 to (3 mL) 300, 4 injection units. BG > 300, 5 units, recheck in 3 hours and cover with s/s insulin 202-0 Yes [id number] 160 to [facility] vers aspart 2-09 200, 1 u, ity of U-100 00:00: 201 to [place] (NOVOLOG 00 240, 2 u. Medica l FLEXPEN BG 241 to Branch U-100 280, 3 INSULIN) unit. BG 100 unit/mL 281 to (3 mL) 300, 4 injection units. BG > 300, 5 units, recheck in 3 hours and cover with s/s insulin 2021-0 Yes [id number] 160 to [facility] vers aspart 2-09 200, 1 u, ity of U-100 00:00: 201 to [place] (NOVOLOG 00 240, 2 u. Medica l FLEXPEN BG 241 to Branch U-100 280, 3 INSULIN) unit. BG 100 unit/mL 281 to (3 mL) 300, 4 injection units. BG > 300, 5 units, recheck in 3 hours and cover with s/s insulin 2021-0 Yes [id number] 160 to [facility] vers aspart 2-09 200, 1 u, ity of U-100 00:00: 201 to [place] (NOVOLOG 00 240, 2 u. Medica l FLEXPEN BG 241 to Branch U-100 280, 3 INSULIN) unit. BG 100 unit/mL 281 to (3 mL) 300, 4 injection units. BG > 300, 5 units, recheck in 3 hours and cover with s/s insulin 202-0 Yes [id number] 160 to [facility] vers aspart 2-09 200, 1 u, ity of U-100 00:00: 201 to [place] (NOVOLOG 00 240, 2 u. Medica l FLEXPEN BG 241 to Branch U-100 280, 3 INSULIN) unit. BG 100 unit/mL 281 to (3 mL) 300, 4 injection units. BG > 300, 5 units, recheck in 3 hours and cover with s/s insulin 2021-0 Yes [id number] 160 to [facility] vers aspart 2-09 200, 1 u, ity of U-100 00:00: 201 to [place] (NOVOLOG 00 240, 2 u. Medica l FLEXPEN BG 241 to Branch U-100 280, 3 INSULIN) unit. BG 100 unit/mL 281 to (3 mL) 300, 4 injection units. BG > 300, 5 units, recheck in 3 hours and cover with s/s insulin 0 Yes [id number] 160 to [facility] vers aspart 2-09 200, 1 u, ity of U-100 00:00: 201 to [place] (NOVOLOG 00 240, 2 u. Medica l FLEXPEN BG 241 to Branch U-100 280, 3 INSULIN) unit. BG 100 unit/mL 281 to (3 mL) 300, 4 injection units. BG > 300, 5 units, recheck in 3 hours and cover with s/s insulin 0 Yes [id number] 160 to [facility] vers aspart 2-09 200, 1 u, ity of U-100 00:00: 201 to [place] (NOVOLOG 00 240, 2 u. Medica l FLEXPEN BG 241 to Branch U-100 280, 3 INSULIN) unit. BG 100 unit/mL 281 to (3 mL) 300, 4 injection units. BG > 300, 5 units, recheck in 3 hours and cover with s/s insulin 0 Yes [id number] 160 to [facility] vers aspart 2-09 200, 1 u, ity of U-100 00:00: 201 to [place] (NOVOLOG 00 240, 2 u. Medica l FLEXPEN BG 241 to Branch U-100 280, 3 INSULIN) unit. BG 100 unit/mL 281 to (3 mL) 300, 4 injection units. BG > 300, 5 units, recheck in 3 hours and cover with s/s insulin 0 Yes [id number] 160 to [facility] vers aspart 2-09 200, 1 u, ity of U-100 00:00: 201 to [place] (NOVOLOG 00 240, 2 u. Medica l FLEXPEN BG 241 to Branch U-100 280, 3 INSULIN) unit. BG 100 unit/mL 281 to (3 mL) 300, 4 injection units. BG > 300, 5 units, recheck in 3 hours and cover with s/s insulin 2021- No [id number] inject 20 [facility] glargine 2-09 10-25 Units ity of ([place] 00:00: [place] U-100 00 :00 skin twice Medical INSULIN) a day. Branch 100 unit/mL injection insulin 2021- No [id number] inject 20 [facility] glargine 2-09 10-25 Units ity of ([place] 00:00: 00:[place] U-100 00 :00 skin twice Medical INSULIN) a day. Branch 100 unit/mL injection insulin 2021- No [id number] inject 20 [facility] glargine 2-09 10-25 Units ity of ([place] 00:00: 00:[place] U-100 00 :00 skin twice Medical INSULIN) a day. Branch 100 unit/mL injection lipase-prot Yes [id number] 1{capsu Take 1 [facility] ease-amylas 2-03 le} capsule by it y of e (CREON) 00:00: mouth 3 [place] 36,000-114, 00 (three) Medic al 000- times Branch 180,000 daily with unit CpDR meals. lipase-prot Yes [id number] 1{capsu Take 1 [facility] ease-amylas 2-03 le} capsule by it y of e (CREON) 00:00: mouth 3 [place] 36,000-114, 00 (three) Medic al 000- times Branch 180,000 daily with unit CpDR meals. lipase-prot Yes [id number] 1{capsu Take 1 [facility] ease-amylas 2-03 le} capsule by it y of e (CREON) 00:00: mouth 3 [place] 36,000-114, 00 (three) Medic al 000- times Branch 180,000 daily with unit CpDR meals. lipase-prot Yes [id number] 1{capsu Take 1 [facility] ease-amylas 2-03 le} capsule by it y of e (CREON) 00:00: mouth 3 [place] 36,000-114, 00 (three) Medic al 000- times Branch 180,000 daily with unit CpDR meals. lipase-prot Yes [id number] 1{capsu Take 1 [facility] ease-amylas 2-03 le} capsule by it y of e (CREON) 00:00: mouth 3 [place] 36,000-114, 00 (three) Medic al 000- times Branch 180,000 daily with unit CpDR meals. lipase-prot Yes [id number] 1{capsu Take 1 [facility] ease-amylas 2-03 le} capsule by it y of e (CREON) 00:00: mouth 3 [place] 36,000-114, 00 (three) Medic al 000- times Branch 180,000 daily with unit CpDR meals. lipase-prot Yes [id number] 1{capsu Take 1 [facility] ease-amylas 2-03 le} capsule by it y of e (CREON) 00:00: mouth 3 [place] 36,000-114, 00 (three) Medic al 000- times Branch 180,000 daily with unit CpDR meals. lipase-prot Yes [id number] 1{capsu Take 1 [facility] ease-amylas 2-03 le} capsule by it y of e (CREON) 00:00: mouth 3 [place] 36,000-114, 00 (three) Medic al 000- times Branch 180,000 daily with unit CpDR meals. lipase-prot Yes [id number] 1{capsu Take 1 [facility] ease-amylas 2-03 le} capsule by it y of e (CREON) 00:00: mouth 3 [place] 36,000-114, 00 (three) Medic al 000- times Branch 180,000 daily with unit CpDR meals. lipase-prot Yes [id number] 1{capsu Take 1 [facility] ease-amylas 2-03 le} capsule by it y of e (CREON) 00:00: mouth 3 [place] 36,000-114, 00 (three) Medic al 000- times Branch 180,000 daily with unit CpDR meals. lipase-prot Yes [id number] 1{capsu Take 1 [facility] ease-amylas 2-03 le} capsule by it y of e (CREON) 00:00: mouth 3 [place] 36,000-114, 00 (three) Medic al 000- times Branch 180,000 daily with unit CpDR meals. lipase-prot Yes [id number] 1{capsu Take 1 [facility] ease-amylas 2-03 le} capsule by it y of e (CREON) 00:00: mouth 3 [place] 36,000-114, 00 (three) Medic al 000- times Branch 180,000 daily with unit CpDR meals. lipase-prot Yes [id number] 1{capsu Take 1 [facility] ease-amylas 2-03 le} capsule by it y of e (CREON) 00:00: mouth 3 [place] 36,000-114, 00 (three) Medic al 000- times Branch 180,000 daily with unit CpDR meals. lipase-prot Yes [id number] 1{capsu Take 1 [facility] ease-amylas 2-03 le} capsule by it y of e (CREON) 00:00: mouth 3 [place] 36,000-114, 00 (three) Medic al 000- times Branch 180,000 daily with unit CpDR meals. lipase-prot Yes [id number] 1{capsu Take 1 [facility] ease-amylas 2-03 le} capsule by it y of e (CREON) 00:00: mouth 3 [place] 36,000-114, 00 (three) Medic al 000- times Branch 180,000 daily with unit CpDR meals. lipase-prot Yes [id number] 1{capsu Take 1 [facility] ease-amylas 2-03 le} capsule by it y of e (CREON) 00:00: mouth 3 [place] 36,000-114, 00 (three) Medic al 000- times Branch 180,000 daily with unit CpDR meals. lipase-prot Yes [id number] 1{capsu Take 1 [facility] ease-amylas 2-03 le} capsule by it y of e (CREON) 00:00: mouth 3 [place] 36,000-114, 00 (three) Medic al 000- times Branch 180,000 daily with unit CpDR meals. lipase-prot Yes [id number] 1{capsu Take 1 [facility] ease-amylas 2-03 le} capsule by it y of e (CREON) 00:00: mouth 3 [place] 36,000-114, 00 (three) Medic al 000- times Branch 180,000 daily with unit CpDR meals. lipase-prot Yes [id number] 1{capsu Take 1 [facility] ease-amylas 2-03 le} capsule by it y of e (CREON) 00:00: mouth 3 [place] 36,000-114, 00 (three) Medic al 000- times Branch 180,000 daily with unit CpDR meals. lipase-prot Yes [id number] 1{capsu Take 1 [facility] ease-amylas 2-03 le} capsule by it y of e (CREON) 00:00: mouth 3 [place] 36,000-114, 00 (three) Medic al 000- times Branch 180,000 daily with unit CpDR meals. lipase-prot Yes [id number] 1{capsu Take 1 [facility] ease-amylas 2-03 le} capsule by it y of e (CREON) 00:00: mouth 3 [place] 36,000-114, 00 (three) Medic al 000- times Branch 180,000 daily with unit CpDR meals. lipase-prot Yes [id number] 1{capsu Take 1 [facility] ease-amylas 2-03 le} capsule by it y of e (CREON) 00:00: mouth 3 [place] 36,000-114, 00 (three) Medic al 000- times Branch 180,000 daily with unit CpDR meals. lipase-prot Yes [id number] 1{capsu Take 1 [facility] ease-amylas 2-03 le} capsule by it y of e (CREON) 00:00: mouth 3 [place] 36,000-114, 00 (three) Medic al 000- times Branch 180,000 daily with unit CpDR meals. lipase-prot Yes [id number] 1{capsu Take 1 [facility] ease-amylas 2-03 le} capsule by it y of e (CREON) 00:00: mouth 3 [place] 36,000-114, 00 (three) Medic al 000- times Branch 180,000 daily with unit CpDR meals. lipase-prot Yes [id number] 1{capsu Take 1 [facility] ease-amylas 2-03 le} capsule by it y of e (CREON) 00:00: mouth 3 [place] 36,000-114, 00 (three) Medic al 000- times Branch 180,000 daily with unit CpDR meals. lipase-prot Yes [id number] 1{capsu Take 1 [facility] ease-amylas 2-03 le} capsule by it y of e (CREON) 00:00: mouth 3 [place] 36,000-114, 00 (three) Medic al 000- times Branch 180,000 daily with unit CpDR meals. lipase-prot Yes [id number] 1{capsu Take 1 [facility] ease-amylas 2-03 le} capsule by it y of e (CREON) 00:00: mouth 3 [place] 36,000-114, 00 (three) Medic al 000- times Branch 180,000 daily with unit CpDR meals. lipase-prot Yes [id number] 1{capsu Take 1 [facility] ease-amylas 2-03 le} capsule by it y of e (CREON) 00:00: mouth 3 [place] 36,000-114, 00 (three) Medic al 000- times Branch 180,000 daily with unit CpDR meals. lipase-prot Yes [id number] 1{capsu Take 1 [facility] ease-amylas 2-03 le} capsule by it y of e (CREON) 00:00: mouth 3 [place] 36,000-114, 00 (three) Medic al 000- times Branch 180,000 daily with unit CpDR meals. lipase-prot Yes [id number] 1{capsu Take 1 [facility] ease-amylas 2-03 le} capsule by it y of e (CREON) 00:00: mouth 3 [place] 36,000-114, 00 (three) Medic al 000- times Branch 180,000 daily with unit CpDR meals. lipase-prot Yes [id number] 1{capsu Take 1 [facility] ease-amylas 2-03 le} capsule by it y of e (CREON) 00:00: mouth 3 [place] 36,000-114, 00 (three) Medic al 000- times Branch 180,000 daily with unit CpDR meals. lipase-prot Yes [id number] 1{capsu Take 1 [facility] ease-amylas 2-03 le} capsule by it y of e (CREON) 00:00: mouth 3 [place] 36,000-114, 00 (three) Medic al 000- times Branch 180,000 daily with unit CpDR meals. lipase-prot Yes [id number] 1{capsu Take 1 [facility] ease-amylas 2-03 le} capsule by it y of e (CREON) 00:00: mouth 3 [place] 36,000-114, 00 (three) Medic al 000- times Branch 180,000 daily with unit CpDR meals. lipase-prot 2020-0 Yes [id number] 1{capsu Take 1 [facility] ease-amylas 2-03 le} capsule by it y of e (CREON) 00:00: mouth 3 [place] 36,000-114, 00 (three) Medic al 000- times Branch 180,000 daily with unit CpDR meals. lipase-prot 202-0 Yes [id number] 1{capsu Take 1 [facility] ease-amylas 2-03 le} [...] l RUPA 14 DAY SENSOR) kit CONTOUR 2019-0 Yes [id number] Use to [facility] ers NEXT TEST 5- check ity of STRIPS 00:00: glucose 4X [place] strip 00 daily. Medical DX:E08.65 Branch CONTOUR 2019-0 Yes [id number] Use to [facility] ers NEXT TEST 5- check ity of STRIPS 00:00: glucose 4X [place] strip 00 daily. Medical DX:E08.65 Branch CONTOUR 2019-0 Yes [id number] Use to [facility] ers NEXT TEST 5- check ity of STRIPS 00:00: glucose 4X [place] strip 00 daily. Medical DX:E08.65 Branch CONTOUR 2019-0 Yes [id number] Use to [facility] ers NEXT TEST 5- check ity of STRIPS 00:00: glucose 4X [place] strip 00 daily. Medical DX:E08.65 Branch CONTOUR 2019-0 Yes [id number] Use to Univ ers NEXT TEST 11-05 check ity of STRIPS 00:00: glucose 4X [place] strip 00 daily. Medical DX:E08.65 Branch CONTOUR 2019-0 Yes [id number] Use to Univ ers NEXT TEST 11-05 check ity of STRIPS 00:00: glucose 4X [place] strip 00 daily. Medical DX:E08.65 Branch CONTOUR 2019- Yes [id number] Use to Univ ers NEXT TEST 11-05 check ity of STRIPS 00:00: glucose 4X [place] strip 00 daily. Medical DX:E08.65 Branch CONTOUR 2019 Yes [id number] Use to Univ ers NEXT TEST 11-05 check ity of STRIPS 00:00: glucose 4X [place] strip 00 daily. Medical DX:E08.65 Branch CONTOUR 2018- Yes [id number] Use to Univ ers NEXT TEST 11-05 check ity of STRIPS 00:00: glucose 4X [place] strip 00 daily. Medical DX:E08.65 Branch CONTOUR Yes [id number] Use to Univ ers NEXT TEST 11-05 check ity of STRIPS 00:00: glucose 4X [place] strip 00 daily. Medical DX:E08.65 Branch CONTOUR Yes [id number] Use to Univ ers NEXT TEST 11-05 check ity of STRIPS 00:00: glucose 4X [place] strip 00 daily. Medical DX:E08.65 Branch CONTOUR Yes [id number] Use to Univ ers NEXT TEST 11-05 check ity of STRIPS 00:00: glucose 4X [place] strip 00 daily. Medical DX:E08.65 Branch CONTOUR 2019- Yes [id number] Use to Univ ers NEXT TEST 11-05 check ity of STRIPS 00:00: glucose 4X [place] strip 00 daily. Medical DX:E08.65 Branch CONTOUR 2019-0 Yes [id number] Use to Univ ers NEXT TEST 11-05 check ity of STRIPS 00:00: glucose 4X [place] strip 00 daily. Medical DX:E08.65 Branch CONTOUR 2019-0 Yes [id number] Use to Univ ers NEXT TEST 11-05 check ity of STRIPS 00:00: glucose 4X [place] strip 00 daily. Medical DX:E08.65 Branch CONTOUR 2019-0 Yes [id number] Use to Univ ers NEXT TEST 11-05 check ity of STRIPS 00:00: glucose 4X [place] strip 00 daily. Medical DX:E08.65 Branch CONTOUR 2018- Yes [id number] Use to [facility] ers NEXT TEST 11-05 check ity of STRIPS 00:00: glucose 4X [place] strip 00 daily. Medical DX:E08.65 Branch CONTOUR 2018- Yes [id number] Use to [facility] ers NEXT TEST 11-05 check ity of STRIPS 00:00: glucose 4X [place] strip 00 daily. Medical DX:E08.65 Branch CONTOUR Yes [id number] Use to [facility] ers NEXT TEST 11-05 check ity of STRIPS 00:00: glucose 4X [place] strip 00 daily. Medical DX:E08.65 Branch CONTOUR Yes [id number] Use to [facility] ers NEXT TEST 11-05 check ity of STRIPS 00:00: glucose 4X [place] strip 00 daily. Medical DX:E08.65 Branch CONTOUR Yes [id number] Use to [facility] ers NEXT TEST 11-05 check ity of STRIPS 00:00: glucose 4X [place] strip 00 daily. Medical DX:E08.65 Branch CONTOUR Yes [id number] Use to [facility] ers NEXT TEST 11-05 check ity of STRIPS 00:00: glucose 4X [place] strip 00 daily. Medical DX:E08.65 Branch CONTOUR Yes [id number] Use to [facility] ers NEXT TEST 11-05 check ity of STRIPS 00:00: glucose 4X [place] strip 00 daily. Medical DX:E08.65 Branch CONTOUR Yes [id number] Use to [facility] ers NEXT TEST 11-05 check ity of STRIPS 00:00: glucose 4X [place] strip 00 daily. Medical DX:E08.65 Branch CONTOUR Yes [id number] Use to [facility] ers NEXT TEST 11-05 check ity of STRIPS 00:00: glucose 4X [place] strip 00 daily. Medical DX:E08.65 Branch CONTOUR Yes [id number] Use to [facility] ers NEXT TEST 11-05 check ity of STRIPS 00:00: glucose 4X [place] strip 00 daily. Medical DX:E08.65 Branch CONTOUR 2019- Yes [id number] Use to [facility] ers NEXT TEST 11-05 check ity of STRIPS 00:00: glucose 4X [place] strip 00 daily. Medical DX:E08.65 Branch CONTOUR 2019- Yes [id number] Use to [facility] ers NEXT TEST 11-05 check ity of STRIPS 00:00: glucose 4X [place] strip 00 daily. Medical DX:E08.65 Branch CONTOUR 2019- Yes [id number] Use to [facility] ers NEXT TEST 11-05 check ity of STRIPS 00:00: glucose 4X [place] strip 00 daily. Medical DX:E08.65 Branch CONTOUR 2019- Yes [id number] Use to [facility] ers NEXT TEST 11-05 check ity of STRIPS 00:00: glucose 4X [place] strip 00 daily. Medical DX:E08.65 Branch CONTOUR 2019- Yes [id number] Use to [facility] ers NEXT TEST 11-05 check ity of STRIPS 00:00: glucose 4X [place] strip 00 daily. Medical DX:E08.65 Branch CONTOUR 2019 Yes [id number] Use to [facility] ers NEXT TEST 11-05 check ity of STRIPS 00:00: glucose 4X [place] strip 00 daily. Medical DX:E08.65 Branch CONTOUR 2019- Yes [id number] Use to [facility] ers NEXT TEST 11-05 check ity of STRIPS 00:00: glucose 4X [place] strip 00 daily. Medical DX:E08.65 Branch CONTOUR Yes [id number] Use to [facility] ers NEXT TEST 11-05 check ity of STRIPS 00:00: glucose 4X [place] strip 00 daily. Medical DX:E08.65 Branch CONTOUR Yes [id number] Use to [facility] ers NEXT TEST 11-05 check ity of STRIPS 00:00: glucose 4X [place] strip 00 daily. Medical DX:E08.65 Branch flash 2018-0 Yes [id number] 1{each} 1 Each Uni vers glucose 3-15 daily. Dx ity of scanning 00:00: 11.8, E [place] reader Misc 00 16.2, K Medic al 86.89 Branch flash 2018-0 Yes [id number] 1{each} 1 Each Uni vers glucose 3-15 every 10 ity of sensor Kit 00:00: (ten) [place] 00 days. Dx Medical 11.8, E Branch 16.2, K 86.89 flash 2019-0 Yes [id number] 1{each} 1 Each Uni vers glucose 3-15 daily. Dx ity of scanning 00:00: 11.8, E [place] reader Misc 00 16.2, K Medic al 86.89 Branch flash 2018-0 Yes [id number] 1{each} 1 Each Uni vers glucose 3-15 every 10 ity of sensor Kit 00:00: () 00 days. Dx Medical 11.8, E Branch 16.2, K 86.89 flash 2019-0 Yes [id number] 1{each} 1 Each Uni vers glucose 3-15 daily. Dx ity of scanning 00:00: 11.8, E [place] reader Misc 00 16.2, K Medic al 86.89 Branch flash 2019-0 Yes [id number] 1{each} 1 Each Uni vers glucose 3-15 every 10 ity of sensor Kit 00:00: () 00 days. Dx Medical 11.8, E Branch 16.2, K 86.89 flash 2019-0 Yes [id number] 1{each} 1 Each Uni vers glucose 3-15 daily. Dx ity of scanning 00:00: 11.8, E [place] reader Misc 00 16.2, K Medic al 86.89 Branch flash 2019-0 Yes [id number] 1{each} 1 Each Uni vers glucose 3-15 every 10 ity of sensor Kit 00:00: () 00 days. Dx Medical 11.8, E Branch 16.2, K 86.89 flash 2019-0 Yes [id number] 1{each} 1 Each Uni vers glucose 3-15 daily. Dx ity of scanning 00:00: 11.8, E [place] reader Misc 00 16.2, K Medic al 86.89 Branch flash 2019-0 Yes [id number] 1{each} 1 Each Uni vers glucose 3-15 every 10 ity of sensor Kit 00:00: () 00 days. Dx Medical 11.8, E Branch 16.2, K 86.89 flash 2019-0 Yes [id number] 1{each} 1 Each Uni vers glucose 3-15 daily. Dx ity of scanning 00:00: 11.8, E [place] reader Misc 00 16.2, K Medic al 86.89 Branch flash 2019-0 Yes [id number] 1{each} 1 Each Uni vers glucose 3-15 every 10 ity of sensor Kit 00:00: () 00 days. Dx Medical 11.8, E Branch 16.2, K 86.89 flash 2019-0 Yes [id number] 1{each} 1 Each Uni vers glucose 3-15 daily. Dx ity of scanning 00:00: 11.8, E [place] reader Misc 00 16.2, K Medic al 86.89 Branch flash 2019-0 Yes [id number] 1{each} 1 Each Uni vers glucose 3-15 every 10 ity of sensor Kit 00:00: () 00 days. Dx Medical 11.8, E Branch 16.2, K 86.89 flash 2019-0 Yes [id number] 1{each} 1 Each Uni vers glucose 3-15 daily. Dx ity of scanning 00:00: 11.8, E [place] reader Misc 00 16.2, K Medic al 86.89 Branch flash 2019-0 Yes [id number] 1{each} 1 Each Uni vers glucose 3-15 every 10 ity of sensor Kit 00:00: () 00 days. Dx Medical 11.8, E Branch 16.2, K 86.89 flash 2019-0 Yes [id number] 1{each} 1 Each Uni vers glucose 3-15 daily. Dx ity of scanning 00:00: 11.8, E [place] reader Misc 00 16.2, K Medic al 86.89 Branch flash 2019-0 Yes [id number] 1{each} 1 Each Uni vers glucose 3-15 every 10 ity of sensor Kit 00:00: () 00 days. Dx Medical 11.8, E Branch 16.2, K 86.89 flash 2019-0 Yes [id number] 1{each} 1 Each Uni vers glucose 3-15 daily. Dx ity of scanning 00:00: 11.8, E [place] reader Misc 00 16.2, K Medic al 86.89 Branch flash 2019-0 Yes [id number] 1{each} 1 Each Uni vers glucose 3-15 every 10 ity of sensor Kit 00:00: () 00 days. Dx Medical 11.8, E Branch 16.2, K 86.89 flash 2019-0 Yes [id number] 1{each} 1 Each Uni vers glucose 3-15 daily. Dx ity of scanning 00:00: 11.8, E [place] reader Misc 00 16.2, K Medic al 86.89 Branch flash 2019-0 Yes [id number] 1{each} 1 Each Uni vers glucose 3-15 every 10 ity of sensor Kit 00:00: () 00 days. Dx Medical 11.8, E Branch 16.2, K 86.89 flash 2019-0 Yes [id number] 1{each} 1 Each Uni vers glucose 3-15 daily. Dx ity of scanning 00:00: 11.8, E [place] reader Misc 00 16.2, K Medic al 86.89 Branch flash 2019-0 Yes [id number] 1{each} 1 Each Uni vers glucose 3-15 every 10 ity of sensor Kit 00:00: () 00 days. Dx Medical 11.8, E Branch 16.2, K 86.89 flash 2019-0 Yes [id number] 1{each} 1 Each Uni vers glucose 3-15 daily. Dx ity of scanning 00:00: 11.8, E [place] reader Misc 00 16.2, K Medic al 86.89 Branch flash 2019-0 Yes [id number] 1{each} 1 Each Uni vers glucose 3-15 every 10 ity of sensor Kit 00:00: () 00 days. Dx Medical 11.8, E Branch 16.2, K 86.89 flash 2019-0 Yes [id number] 1{each} 1 Each Uni vers glucose 3-15 daily. Dx ity of scanning 00:00: 11.8, E [place] reader Misc 00 16.2, K Medic al 86.89 Branch flash 2019-0 Yes [id number] 1{each} 1 Each Uni vers glucose 3-15 every 10 ity of sensor Kit 00:00: () 00 days. Dx Medical 11.8, E Branch 16.2, K 86.89 flash 2019-0 Yes [id number] 1{each} 1 Each Uni vers glucose 3-15 daily. Dx ity of scanning 00:00: 11.8, E [place] reader Misc 00 16.2, K Medic al 86.89 Branch flash 2019-0 Yes [id number] 1{each} 1 Each Uni vers glucose 3-15 every 10 ity of sensor Kit 00:00: () 00 days. Dx Medical 11.8, E Branch 16.2, K 86.89 flash 2019-0 Yes [id number] 1{each} 1 Each Uni vers glucose 3-15 daily. Dx ity of scanning 00:00: 11.8, E [place] reader Misc 00 16.2, K Medic al 86.89 Branch flash 2019-0 Yes [id number] 1{each} 1 Each Uni vers glucose 3-15 every 10 ity of sensor Kit 00:00: () 00 days. Dx Medical 11.8, E Branch 16.2, K 86.89 flash 2019-0 Yes [id number] 1{each} 1 Each Uni vers glucose 3-15 daily. Dx ity of scanning 00:00: 11.8, E [place] reader Misc 00 16.2, K Medic al 86.89 Branch flash 2019-0 Yes [id number] 1{each} 1 Each Uni vers glucose 3-15 every 10 ity of sensor Kit 00:00: () 00 days. Dx Medical 11.8, E Branch 16.2, K 86.89 flash 2019-0 Yes [id number] 1{each} 1 Each Uni vers glucose 3-15 daily. Dx ity of scanning 00:00: 11.8, E [place] reader Misc 00 16.2, K Medic al 86.89 Branch flash 2019-0 Yes [id number] 1{each} 1 Each Uni vers glucose 3-15 every 10 ity of sensor Kit 00:00: () 00 days. Dx Medical 11.8, E Branch 16.2, K 86.89 flash 2019-0 Yes [id number] 1{each} 1 Each Uni vers glucose 3-15 daily. Dx ity of scanning 00:00: 11.8, E [place] reader Misc 00 16.2, K Medic al 86.89 Branch flash 2019-0 Yes [id number] 1{each} 1 Each Uni vers glucose 3-15 every 10 ity of sensor Kit 00:00: () 00 days. Dx Medical 11.8, E Branch 16.2, K 86.89 flash 2019-0 Yes [id number] 1{each} 1 Each Uni vers glucose 3-15 daily. Dx ity of scanning 00:00: 11.8, E [place] reader Misc 00 16.2, K Medic al 86.89 Branch flash 2019-0 Yes [id number] 1{each} 1 Each Uni vers glucose 3-15 every 10 ity of sensor Kit 00:00: () 00 days. Dx Medical 11.8, E Branch 16.2, K 86.89 flash 2019-0 Yes [id number] 1{each} 1 Each Uni vers glucose 3-15 daily. Dx ity of scanning 00:00: 11.8, E [place] reader Misc 00 16.2, K Medic al 86.89 Branch flash 2019-0 Yes [id number] 1{each} 1 Each Uni vers glucose 3-15 every 10 ity of sensor Kit 00:00: () 00 days. Dx Medical 11.8, E Branch 16.2, K 86.89 flash 2019-0 Yes [id number] 1{each} 1 Each Uni vers glucose 3-15 daily. Dx ity of scanning 00:00: 11.8, E [place] reader Misc 00 16.2, K Medic al 86.89 Branch flash 2019-0 Yes [id number] 1{each} 1 Each Uni vers glucose 3-15 every 10 ity of sensor Kit 00:00: () 00 days. Dx Medical 11.8, E Branch 16.2, K 86.89 flash 2019-0 Yes [id number] 1{each} 1 Each Uni vers glucose 3-15 daily. Dx ity of scanning 00:00: 11.8, E [place] reader Misc 00 16.2, K Medic al 86.89 Branch flash 2019-0 Yes [id number] 1{each} 1 Each Uni vers glucose 3-15 every 10 ity of sensor Kit 00:00: () 00 days. Dx Medical 11.8, E Branch 16.2, K 86.89 flash 2019-0 Yes [id number] 1{each} 1 Each Uni vers glucose 3-15 daily. Dx ity of scanning 00:00: 11.8, E [place] reader Misc 00 16.2, K Medic al 86.89 Branch flash 2019-0 Yes [id number] 1{each} 1 Each Uni vers glucose 3-15 every 10 ity of sensor Kit 00:00: () 00 days. Dx Medical 11.8, E Branch 16.2, K 86.89 flash 2019-0 Yes [id number] 1{each} 1 Each Uni vers glucose 3-15 daily. Dx ity of scanning 00:00: 11.8, E [place] reader Misc 00 16.2, K Medic al 86.89 Branch flash 2019-0 Yes [id number] 1{each} 1 Each Uni vers glucose 3-15 every 10 ity of sensor Kit 00:00: () 00 days. Dx Medical 11.8, E Branch 16.2, K 86.89 flash 2019-0 Yes [id number] 1{each} 1 Each Uni vers glucose 3-15 daily. Dx ity of scanning 00:00: 11.8, E [place] reader Misc 00 16.2, K Medic al 86.89 Branch flash 2019-0 Yes [id number] 1{each} 1 Each Uni vers glucose 3-15 every 10 ity of sensor Kit 00:00: () 00 days. Dx Medical 11.8, E Branch 16.2, K 86.89 flash 2019-0 Yes [id number] 1{each} 1 Each Uni vers glucose 3-15 daily. Dx ity of scanning 00:00: 11.8, E [place] reader Misc 00 16.2, K Medic al 86.89 Branch flash 2019-0 Yes [id number] 1{each} 1 Each Uni vers glucose 3-15 every 10 ity of sensor Kit 00:00: () 00 days. Dx Medical 11.8, E Branch 16.2, K 86.89 flash 2019-0 Yes [id number] 1{each} 1 Each Uni vers glucose 3-15 daily. Dx ity of scanning 00:00: 11.8, E [place] reader Misc 00 16.2, K Medic al 86.89 Branch flash 2019-0 Yes [id number] 1{each} 1 Each Uni vers glucose 3-15 every 10 ity of sensor Kit 00:00: () 00 days. Dx Medical 11.8, E Branch 16.2, K 86.89 flash 2019-0 Yes [id number] 1{each} 1 Each Uni vers glucose 3-15 daily. Dx ity of scanning 00:00: 11.8, E [place] reader Misc 00 16.2, K Medic al 86.89 Branch flash 2019-0 Yes [id number] 1{each} 1 Each Uni vers glucose 3-15 every 10 ity of sensor Kit 00:00: () 00 days. Dx Medical 11.8, E Branch 16.2, K 86.89 flash 2019-0 Yes [id number] 1{each} 1 Each Uni vers glucose 3-15 daily. Dx ity of scanning 00:00: 11.8, E [place] reader Misc 00 16.2, K Medic al 86.89 Branch flash 2019-0 Yes [id number] 1{each} 1 Each Uni vers glucose 3-15 every 10 ity of sensor Kit 00:00: () 00 days. Dx Medical 11.8, E Branch 16.2, K 86.89 flash 2019-0 Yes [id number] 1{each} 1 Each Uni vers glucose 3-15 daily. Dx ity of scanning 00:00: 11.8, E [place] reader Misc 00 16.2, K Medic al 86.89 Branch flash 2019-0 Yes [id number] 1{each} 1 Each Uni vers glucose 3-15 every 10 ity of sensor Kit 00:00: () 00 days. Dx Medical 11.8, E Branch 16.2, K 86.89 flash 2019-0 Yes [id number] 1{each} 1 Each Uni vers glucose 3-15 daily. Dx ity of scanning 00:00: 11.8, E [place] reader Misc 00 16.2, K Medic al 86.89 Branch flash 2019-0 Yes [id number] 1{each} 1 Each Uni vers glucose 3-15 every 10 ity of sensor Kit 00:00: () 00 days. Dx Medical 11.8, E Branch 16.2, K 86.89 flash 2019-0 Yes [id number] 1{each} 1 Each Uni vers glucose 3-15 daily. Dx ity of scanning 00:00: 11.8, E [place] reader Misc 00 16.2, K Medic al 86.89 Branch flash 2019-0 Yes [id number] 1{each} 1 Each Uni vers glucose 3-15 every 10 ity of sensor Kit 00:00: () 00 days. Dx Medical 11.8, E Branch 16.2, K 86.89 flash 2019-0 Yes [id number] 1{each} 1 Each Uni vers glucose 3-15 daily. Dx ity of scanning 00:00: 11.8, E [place] reader Misc 00 16.2, K Medic al 86.89 Branch flash 2019-0 Yes [id number] 1{each} 1 Each Uni vers glucose 3-15 every 10 ity of sensor Kit 00:00: () 00 days. Dx Medical 11.8, E Branch 16.2, K 86.89 flash 2019-0 Yes [id number] 1{each} 1 Each Uni vers glucose 3-15 daily. Dx ity of scanning 00:00: 11.8, E [place] reader Misc 00 16.2, K Medic al 86.89 Branch flash 2019-0 Yes [id number] 1{each} 1 Each Uni vers glucose 3-15 [...] [place] METER) Misc 00 Medical Branch Blood-Gluco 2017-0 Yes Use as Univ ers se Meter 8-14 directed ity of (CONTOUR 00:00: [place] METER) Misc 00 Medical Branch Blood-Gluco 2017-0 Yes Use as Univ ers se Meter 8-14 directed ity of (CONTOUR 00:00: [place] METER) Misc 00 Medical Branch Blood-Gluco 2017-0 Yes Use as Univ ers se Meter 8-14 directed ity of (CONTOUR 00:00: [place] METER) Misc 00 Medical Branch Blood-Gluco 2017-0 Yes Use as Univ ers se Meter 8-14 directed ity of (CONTOUR 00:00: [place] METER) Misc 00 Medical Branch Blood-Gluco 2017-0 Yes Use as Univ ers se Meter 8-14 directed ity of (CONTOUR 00:00: [place] METER) Misc 00 Medical Branch Blood-Gluco 2017-0 Yes Use as Univ ers se Meter [...] directed ity of (CONTOUR 00:00: [place] [facility] [place] Blood-Gluco Yes Use as Univ ers se Meter 8-14 directed ity of (CONTOUR 00:00: [place] METER[place] [facility] [place] [facility] Blood-Gluco Yes Use as Univ ers se Meter 8-14 directed ity of (CONTOUR 00:00: [place] METER) [place] [address] Medical Branch Blood-Gluco Yes Use as Univ ers se Meter 8-14 directed ity of (CONTOUR 00:00: [place] METER[place] [facility] [place] [facility] Blood-Gluco Yes Use as Univ ers se Meter 8-14 directed ity of (CONTOUR 00:00: [place] METER) [place] [address] Medical Branch Blood-Gluco Yes Use as Univ ers se Meter 8-14 directed ity of (CONTOUR 00:00: [place] METER) [place] [address] Medical Branch Blood-Gluco Yes Use as Univ ers se Meter 8-14 directed ity of (CONTOUR 00:00: [place] METER) [place] [address] Medical Branch Blood-Gluco Yes Use as Univ ers se Meter 8-14 directed ity of (CONTOUR 00:00: [place] METER) [place] [address] Medical Branch zolpidem 0 Yes 10mg QD Take 10 [...] spita 00 needed for l sleep. clonAZEPAM 2018-0 Yes .5mg Q.5D Take 0.5 Met hodi (KlonoPIN) 1-[address] 0.5 MG 00:00: mouth 2 Hosp[facility] tablet 00 (two) l times a day as needed for anxiety. clonAZEPAM 2018-0 Yes .5mg Q.5D Take 0.5 [facility] (KlonoPIN) 1-[address] 0.5 MG 00:00: mouth 2 [facility]osp[facility] tablet 00 (two) l times a day as needed for anxiety. clonAZEPAM 2018-0 Yes .5mg Q.5D Take 0.5 Met [facility] (KlonoPIN) 1-[address] 0.5 MG 00:00: mouth 2 [facility]osp[facility] tablet 00 (two) l times a day as needed for anxiety. acetaminoph 2013-06 Yes Abscess 1{tbl} Take 1 [place] en-codeine 2-22 tablet by [facility] (TYLENOL/CO 00:00: mouth DEINE #3) 00 every 4 300-30 mg hours as per tablet needed for Pain. acetaminoph 2013-06 Yes Abscess 1{tbl} Take 1 [place] en-codeine 2-22 tablet by [facility] (TYLENOL/CO 00:00: mouth DEINE #3) 00 every 4 300-30 mg hours as per tablet needed for Pain. acetaminoph 2013-06 Yes Abscess 1{tbl} Take 1 [place] en-codeine 2-22 tablet by [facility] (TYLENOL/CO 00:00: mouth DEINE #3) 00 every 4 300-30 mg hours as per tablet needed for Pain. ibuprofen 2013-06 Yes Cellulitis 400mg Take 1 [place] (MOTRIN) 2-[address] [facility] 400 mg 00:00: mouth tablet 00 [...] every 6 hours as needed for Pain. insulin 2013-06 Yes Inject [place] glargine 2-09 under the [facility] (LANTUS 23:14: skin once. SOLOSTAR) 58 100 unit/mL (3 mL) InPn insulin 2013-06 Yes Inject [place] aspart 2-09 under the Health (NOVOLOG) 23:14: skin 3 100 unit/mL 58 times injection daily. hydrochloro 2013-06 Yes 12.5mg Take 12.5 [place] thiazide 2-[address] [facility] 12.5 mg 23:14: mouth capsule 58 [...] mg 23:14: mouth capsule 58 every morning. Immunizations Ordered Filled Immunization Date Status Comments [facility] e Immunization Name Name Pneumococcal 2022-03-31 Completed Universit y of Conjugate, PCV20 00:00:00 [facility] dical (Prevnar 20) Branch SARS-COV-2 COVID-19 2022-03-31 Completed Unive rsity of JASPER-SUCROSE 00:00:00 [place] [facility] VACCINE [facility] Branch BIVALENT 0.3ML, IM, (PFIZER ROGER TOP BOOSTER) Pneumococcal 2022-03-31 Completed Universit y of Conjugate, PCV20 00:00:00 [facility] dical (Prevnar 20) Branch SARS-COV-2 COVID-19 2022-03-31 Completed Unive rsity of JASPER-SUCROSE 00:00:00 [place] [facility] VACCINE 12 YRS+, Branch BIVALENT 0.3ML, IM, (PFIZER ROGER TOP BOOSTER) Pneumococcal 20 2022-03-31 Completed Universit y of Conjugate, PCV20 00:00:00 [place] [facility] (Prevnar 20) Branch SARS-COV-2 COVID-19 2022-03-31 Completed Unive rsity of JASPER-SUCROSE 00:00:00 [place] [facility] VACCINE 12 YRS+, Branch BIVALENT 0.3ML, IM, (PFIZER ROGER TOP BOOSTER) Pneumococcal 20 2022-03-31 Completed Universit y of Conjugate, PCV20 00:00:00 [facility] dical (Prevnar 20) Branch SARS-COV-2 COVID-19 2022-03-31 [...] Completed Universit y of Conjugate, PCV20 00:00:00 [place] [facility] (Prevnar 20) Branch SARS-COV-2 COVID-19 [...] Completed Universit y of Conjugate, PCV20 00:00:00 [place] [facility] (Prevnar 20) Branch SARS-COV-2 COVID-19 2022-03-31 Completed Unive rsity of JASPER-SUCROSE 00:00:00 [place] [facility] VACCINE 12 YRS+, Branch BIVALENT 0.3ML, IM, (PFIZER ROGER TOP BOOSTER) Pneumococcal 2022-03-31 Completed Universit y of Conjugate, PCV20 00:00:00 [place] [facility] (Prevnar 20) Branch SARS-COV-2 COVID-19 2022-03-31 Completed Unive rsity of JASPER-SUCROSE 00:00:00 [place] [facility] VACCINE 12 YRS+, Branch BIVALENT 0.3ML, IM, (PFIZER ROGER TOP BOOSTER) SARS-COV-2 COVID-19 2021-03-27 Completed Unive rsity of PFIZER VACCINE 00:00:00 [facility] Branch SARS-COV-2 COVID-19 2021-03-27 Completed Unive rsity of PFIZER VACCINE 00:00:00 [facility] Branch SARS-COV-2 COVID-19 2021-03-27 Completed Unive rsity of PFIZER VACCINE 00:00:00 [facility] Branch SARS-COV-2 COVID-19 2021-03-27 Completed Unive rsity of PFIZER VACCINE 00:00:00 [facility] Branch SARS-COV-2 COVID-19 2021-03-27 Completed Unive rsity of PFIZER VACCINE 00:00:00 [facility] Branch SARS-COV-2 COVID-19 2021-03-27 Completed Unive rsity of PFIZER VACCINE 00:00:00 [facility] Branch SARS-COV-2 COVID-19 2021-03-27 Completed Unive rsity of PFIZER VACCINE 00:00:00 [facility] Branch SARS-COV-2 COVID-19 2021-03-27 Completed Unive rsity of PFIZER VACCINE 00:00:00 [facility] Branch SARS-COV-2 COVID-19 2021-03-27 Completed Unive rsity of PFIZER VACCINE 00:00:00 [facility] Branch SARS-COV-2 COVID-19 2021-03-27 Completed Unive rsity of PFIZER VACCINE 00:00:00 [facility] Branch SARS-COV-2 COVID-19 2021-03-27 Completed Unive rsity of PFIZER VACCINE 00:00:00 [facility] Branch SARS-COV-2 COVID-19 2021-03-27 Completed Unive rsity of PFIZER VACCINE 00:00:00 [facility] Branch SARS-COV-2 COVID-19 2021-03-27 Completed Unive rsity of PFIZER VACCINE 00:00:00 [facility] Branch SARS-COV-2 COVID-19 2021-03-27 Completed Unive rsity of PFIZER VACCINE 00:00:00 [facility] Branch SARS-COV-2 COVID-19 2021-03-27 Completed Unive rsity of PFIZER VACCINE 00:00:00 [facility] Branch SARS-COV-2 COVID-19 2021-03-27 Completed Unive rsity of PFIZER VACCINE 00:00:00 [facility] Branch SARS-COV-2 COVID-19 2021-03-27 Completed Unive rsity of PFIZER VACCINE 00:00:00 [facility] Branch SARS-COV-2 COVID-19 2021-03-27 Completed Unive rsity of PFIZER VACCINE 00:00:00 [facility] Branch SARS-COV-2 COVID-19 2021-03-27 Completed Unive rsity of PFIZER VACCINE 00:00:00 [facility] Branch SARS-COV-2 COVID-19 2021-03-27 Completed Unive rsity of PFIZER VACCINE 00:00:00 [facility] Branch SARS-COV-2 COVID-19 2021-03-27 Completed Unive rsity of PFIZER VACCINE 00:00:00 [facility] SARS-COV-2 COVID-19 2021-03-27 Completed Unive rsity of PFIZER VACCINE 00:00:00 [facility] SARS-COV-2 COVID-19 2021-03-27 Completed Unive rsity of PFIZER VACCINE 00:00:00 [facility] SARS-COV-2 COVID-19 2021-03-27 Completed Unive rsity of PFIZER VACCINE 00:00:00 [facility] SARS-COV-2 COVID-19 2021-03-27 Completed Unive rsity of PFIZER VACCINE 00:00:00 [facility] TDAP 2021-03-01 Completed University of 00:00:00 [facility] TDAP 2021-03-01 Completed University of 00:00:00 [facility] TDAP 2021-03-01 Completed University of 00:00:00 [facility] TDAP 2021-03-01 Completed University of 00:00:00 [facility] TDAP 2021-03-01 Completed University of 00:00:00 [facility] TDAP 2021-03-01 Completed University of 00:00:00 [facility] TDAP 2021-03-01 Completed University of 00:00:00 [facility] TDAP 2021-03-01 Completed University of 00:00:00 [facility] TDAP 2021-03-01 Completed University of 00:00:00 [facility] TDAP 2021-03-01 Completed University of 00:00:00 [facility] TDAP 2021-03-01 Completed University of 00:00:00 [facility] TDAP 2021-03-01 Completed University of 00:00:00 [facility] TDAP 2021-03-01 Completed University of 00:00:00 [facility] TDAP 2021-03-01 Completed University of 00:00:00 [facility] TDAP 2021-03-01 Completed University of 00:00:00 [facility] TDAP 2021-03-01 Completed University of 00:00:00 [facility] TDAP 2021-03-01 Completed University of 00:00:00 [facility] TDAP 2021-03-01 Completed University of 00:00:00 [facility] TDAP 2021-03-01 Completed University of 00:00:00 [facility] TDAP 2021-03-01 Completed University of 00:00:00 [facility] TDAP 2021-03-01 Completed University of 00:00:00 [facility] TDAP 2021-03-01 Completed University of 00:00:00 [facility] TDAP 2021-03-01 Completed University of 00:00:00 [facility] TDAP 2021-03-01 Completed University of 00:00:00 [facility] TDAP 2021-03-01 Completed University of 00:00:00 [facility] TDAP 2021-03-01 Completed University of 00:00:00 [facility] TDAP 2021-03-01 Completed University of 00:00:00 [facility] TDAP 2021-03-01 Completed University of 00:00:00 [facility] TDAP 2021-03-01 Completed University of 00:00:00 [facility] TDAP 2021-03-01 Completed University of 00:00:00 [facility] TDAP 2021-03-01 Completed University of 00:00:00 [facility] TDAP 2021-03-01 Completed University of 00:00:00 [facility] TDAP 2021-03-01 Completed University of 00:00:00 [facility] TDAP 2021-03-01 Completed University of 00:00:00 [facility] TDAP 2021-03-01 Completed University of 00:00:00 [facility] Pfizer COVID-19 Pfizer COVID-19 2021-01-21 Completed Vaccine Vaccine 00:00:00 SARS-COV-2 COVID-19 2020-07-20 Completed Unive rsity of PFIZER VACCINE 00:00:00 [facility] SARS-COV-2 COVID-19 2020-07-20 Completed Unive rsity of PFIZER VACCINE 00:00:00 [facility] SARS-COV-2 COVID-19 2020-07-20 Completed Unive rsity of PFIZER VACCINE 00:00:00 [facility] SARS-COV-2 COVID-19 2020-07-20 Completed Unive rsity of PFIZER VACCINE 00:00:00 [facility] SARS-COV-2 COVID-19 2020-07-20 Completed Unive rsity of PFIZER VACCINE 00:00:00 [facility] SARS-COV-2 COVID-19 2020-07-20 Completed Unive rsity of PFIZER VACCINE 00:00:00 [facility] SARS-COV-2 COVID-19 2020-07-20 Completed Unive rsity of PFIZER VACCINE 00:00:00 [facility] Branch SARS-COV-2 COVID-19 2020-07-20 Completed Unive rsity of PFIZER VACCINE 00:00:00 [facility] SARS-COV-2 COVID-19 2020-07-20 Completed Unive rsity of PFIZER VACCINE 00:00:00 [facility] Branch SARS-COV-2 COVID-19 2020-07-20 Completed Unive rsity of PFIZER VACCINE 00:00:00 [facility] Branch SARS-COV-2 COVID-19 2020-07-20 Completed Unive rsity of PFIZER VACCINE 00:00:00 [facility] Branch SARS-COV-2 COVID-19 2020-07-20 Completed Unive rsity of PFIZER VACCINE 00:00:00 [facility] Branch SARS-COV-2 COVID-19 2020-07-20 Completed Unive rsity of PFIZER VACCINE 00:00:00 [facility] SARS-COV-2 COVID-19 2020-07-20 Completed Unive rsity of PFIZER VACCINE 00:00:00 [facility] SARS-COV-2 COVID-19 2020-07-20 Completed Unive rsity of PFIZER VACCINE 00:00:00 [facility] SARS-COV-2 COVID-19 2020-07-20 Completed Unive rsity of PFIZER VACCINE 00:00:00 [facility] SARS-COV-2 COVID-19 2020-07-20 Completed Unive rsity of PFIZER VACCINE 00:00:00 [facility] Branch SARS-COV-2 COVID-19 2020-07-20 Completed Unive rsity of PFIZER VACCINE 00:00:00 [facility] Branch SARS-COV-2 COVID-19 2020-07-20 Completed Unive rsity of PFIZER VACCINE 00:00:00 [facility] Branch SARS-COV-2 COVID-19 2020-07-20 Completed Unive rsity of PFIZER VACCINE 00:00:00 [facility] SARS-COV-2 COVID-19 2020-07-20 Completed Unive rsity of PFIZER VACCINE 00:00:00 [facility] SARS-COV-2 COVID-19 2020-07-20 Completed Unive rsity of PFIZER VACCINE 00:00:00 [facility] SARS-COV-2 COVID-19 2020-07-20 Completed Unive rsity of PFIZER VACCINE 00:00:00 [facility] SARS-COV-2 COVID-19 2020-07-20 Completed Unive rsity of PFIZER VACCINE 00:00:00 [facility] SARS-COV-2 COVID-19 2020-07-20 Completed Unive rsity of PFIZER VACCINE 00:00:00 [facility] Branch SARS-COV-2 COVID-19 2020-07-20 Completed Unive rsity of PFIZER VACCINE 00:00:00 [facility] SARS-COV-2 COVID-19 2020-07-20 Completed Unive rsity of PFIZER VACCINE 00:00:00 [facility] SARS-COV-2 COVID-19 2020-07-20 Completed Unive rsity of PFIZER VACCINE 00:00:00 [facility] SARS-COV-2 COVID-19 2020-07-20 Completed Unive rsity of PFIZER VACCINE 00:00:00 [facility] SARS-COV-2 COVID-19 2020-07-20 Completed Unive rsity of PFIZER VACCINE 00:00:00 [facility] SARS-COV-2 COVID-19 2020-07-20 Completed Unive rsity of PFIZER VACCINE 00:00:00 [facility] SARS-COV-2 COVID-19 2020-07-20 Completed Unive rsity of PFIZER VACCINE 00:00:00 [facility] SARS-COV-2 COVID-19 2020-07-20 Completed Unive rsity of PFIZER VACCINE 00:00:00 [facility] SARS-COV-2 COVID-19 2020-07-20 Completed Unive rsity of PFIZER VACCINE 00:00:00 [facility] SARS-COV-2 COVID-19 2020-07-20 Completed Unive rsity of PFIZER VACCINE 00:00:00 [facility] Pfizer COVID-19 Pfizer COVID-19 2020-07-20 Completed Vaccine Vaccine 00:00:00 SARS-COV-2 COVID-19 2020-06-29 Completed Unive rsity of PFIZER VACCINE 00:00:00 [facility] SARS-COV-2 COVID-19 2020-06-29 Completed Unive rsity of PFIZER VACCINE 00:00:00 [facility] SARS-COV-2 COVID-19 2020-06-29 Completed Unive rsity of PFIZER VACCINE 00:00:00 [facility] SARS-COV-2 COVID-19 2020-06-29 Completed Unive rsity of PFIZER VACCINE 00:00:00 [facility] SARS-COV-2 COVID-19 2020-06-29 Completed Unive rsity of PFIZER VACCINE 00:00:00 [facility] SARS-COV-2 COVID-19 2020-06-29 Completed Unive rsity of PFIZER VACCINE 00:00:00 [facility] SARS-COV-2 COVID-19 2020-06-29 Completed Unive rsity of PFIZER VACCINE 00:00:00 [facility] SARS-COV-2 COVID-19 2020-06-29 Completed Unive rsity of PFIZER VACCINE 00:00:00 [facility] SARS-COV-2 COVID-19 2020-06-29 Completed Unive rsity of PFIZER VACCINE 00:00:00 [facility] SARS-COV-2 COVID-19 2020-06-29 Completed Unive rsity of PFIZER VACCINE 00:00:00 [facility] SARS-COV-2 COVID-19 2020-06-29 Completed Unive rsity of PFIZER VACCINE 00:00:00 [facility] SARS-COV-2 COVID-19 2020-06-29 Completed Unive rsity of PFIZER VACCINE 00:00:00 [facility] SARS-COV-2 COVID-19 2020-06-29 Completed Unive rsity of PFIZER VACCINE 00:00:00 [facility] SARS-COV-2 COVID-19 2020-06-29 Completed Unive rsity of PFIZER VACCINE 00:00:00 [facility] SARS-COV-2 COVID-19 2020-06-29 Completed Unive rsity of PFIZER VACCINE 00:00:00 [facility] SARS-COV-2 COVID-19 2020-06-29 Completed Unive rsity of PFIZER VACCINE 00:00:00 [facility] SARS-COV-2 COVID-19 2020-06-29 Completed Unive rsity of PFIZER VACCINE 00:00:00 [facility] SARS-COV-2 COVID-19 2020-06-29 Completed Unive rsity of PFIZER VACCINE 00:00:00 [facility] SARS-COV-2 COVID-19 2020-06-29 Completed Unive rsity of PFIZER VACCINE 00:00:00 [facility] SARS-COV-2 COVID-19 2020-06-29 Completed Unive rsity of PFIZER VACCINE 00:00:00 [facility] SARS-COV-2 COVID-19 2020-06-29 Completed Unive rsity of PFIZER VACCINE 00:00:00 [facility] SARS-COV-2 COVID-19 2020-06-29 Completed Unive rsity of PFIZER VACCINE 00:00:00 [facility] SARS-COV-2 COVID-19 2020-06-29 Completed Unive rsity of PFIZER VACCINE 00:00:00 [facility] SARS-COV-2 COVID-19 2020-06-29 Completed Unive rsity of PFIZER VACCINE 00:00:00 [facility] SARS-COV-2 COVID-19 2020-06-29 Completed Unive rsity of PFIZER VACCINE 00:00:00 [facility] SARS-COV-2 COVID-19 2020-06-29 Completed Unive rsity of PFIZER VACCINE 00:00:00 [facility] SARS-COV-2 COVID-19 2020-06-29 Completed Unive rsity of PFIZER VACCINE 00:00:00 [facility] SARS-COV-2 COVID-19 2020-06-29 Completed Unive rsity of PFIZER VACCINE 00:00:00 [facility] SARS-COV-2 COVID-19 2020-06-29 Completed Unive rsity of PFIZER VACCINE 00:00:00 [facility] SARS-COV-2 COVID-19 2020-06-29 Completed Unive rsity of PFIZER VACCINE 00:00:00 [facility] SARS-COV-2 COVID-19 2020-06-29 Completed Unive rsity of PFIZER VACCINE 00:00:00 [facility] SARS-COV-2 COVID-19 2020-06-29 Completed Unive rsity of PFIZER VACCINE 00:00:00 [facility] SARS-COV-2 COVID-19 2020-06-29 Completed Unive rsity of PFIZER VACCINE 00:00:00 [facility] SARS-COV-2 COVID-19 2020-06-29 Completed Unive rsity of PFIZER VACCINE 00:00:00 [facility] SARS-COV-2 COVID-19 2020-06-29 Completed Unive rsity of PFIZER VACCINE 00:00:00 [facility] Pfizer COVID-19 Pfizer COVID-19 2020-06-29 Completed Vaccine Vaccine 00:00:00 Influenza Virus 2018-04-12 Completed Universit y of Vaccine Quad .5 mL 00:00:00 [facility] Influenza Virus 2018-04-12 Completed [facility]it y of Vaccine Quad .5 mL 00:00:00 [facility] Influenza Virus 2018-04-12 Completed Universit y of Vaccine Quad .5 mL 00:00:00 [facility] 6+ [facility] Influenza Virus 2018-04-12 Completed [facility]it y of Vaccine Quad .5 mL 00:00:00 [facility] 6+ [facility] Influenza Virus 2018-04-12 Completed [facility]it y of Vaccine Quad .5 mL 00:00:00 [facility] 6+ [facility] Influenza Virus 2018-04-12 Completed [facility]it y of Vaccine Quad .5 mL 00:00:00 [facility] 6+ MO [facility] Influenza Virus 2018-04-12 Completed [facility]it y of Vaccine Quad .5 mL 00:00:00 [facility] 6+ [facility] Influenza Virus [...] y of Vaccine Quad .5 mL 00:00:00 [facility] 6+ [facility] Influenza Virus 2018-04-12 Completed Universit y of Vaccine Quad .5 mL 00:00:00 [facility] 6+ [facility] Influenza Virus 2018-04-12 Completed [facility]it y of Vaccine Quad .5 mL 00:00:00 [facility] 6+ [facility] Influenza Virus 2018-04-12 Completed [facility]it y of Vaccine Quad .5 mL 00:00:00 [facility] 6+ [facility] Influenza Virus 2014-04-12 Completed Universit y of Vaccine Quad IM 3+ 00:00:[address] [facility] Influenza Virus 2014-04-12 Completed Universit y of Vaccine Quad IM 3+ 00:00:[address] [facility] Influenza Virus 2014-04-12 Completed Universit y of Vaccine Quad IM 3+ 00:00:[address] [facility] Influenza Virus 2014-04-12 Completed Universit y of Vaccine Quad IM 3+ 00:00:[address] [facility] Influenza Virus 2014-04-12 Completed Universit y of Vaccine Quad IM 3+ 00:00:[address] [facility] Influenza Virus 2014-04-12 Completed Universit y of Vaccine Quad IM 3+ 00:00:[address] [facility] Influenza Virus 2014-04-12 Completed Universit y of Vaccine Quad IM 3+ 00:00:[address] [facility] Influenza Virus 2014-04-12 Completed Universit y of Vaccine Quad IM 3+ 00:00:[address] [facility] Influenza Virus 2014-04-12 Completed Universit y of Vaccine Quad IM 3+ 00:00:[address] [facility] Influenza Virus 2014-04-12 Completed Universit y of Vaccine Quad IM 3+ 00:00:[address] [facility] Influenza Virus 2014-04-12 Completed Universit y of Vaccine Quad IM 3+ 00:00:[address] [facility] Influenza Virus 2014-04-12 Completed Universit y of Vaccine Quad IM 3+ 00:00:[address] [facility] Influenza Virus 2014-04-12 Completed Universit y of Vaccine Quad IM 3+ 00:00:[address] [facility] Influenza Virus 2014-04-12 Completed Universit y of Vaccine Quad IM 3+ 00:00:[address] [facility] Influenza Virus 2014-04-12 Completed Universit y of Vaccine Quad IM 3+ 00:00:[address] [facility] Influenza Virus 2014-04-12 Completed Universit y of Vaccine Quad IM 3+ 00:00:[address] [facility] Influenza Virus 2014-04-12 Completed Universit y of Vaccine Quad IM 3+ 00:00:[address] [facility] Influenza Virus 2014-04-12 Completed Universit y of Vaccine Quad IM 3+ 00:00:[address] [facility] Influenza Virus 2014-04-12 Completed Universit y of Vaccine Quad IM 3+ 00:00:[address] [facility] Influenza Virus 2014-04-12 Completed Universit y of Vaccine Quad IM 3+ 00:00:[address] [facility] Influenza Virus 2014-04-12 Completed Universit y of Vaccine Quad IM 3+ 00:00:[address] [facility] Influenza Virus 2014-04-12 Completed Universit y of Vaccine Quad IM 3+ 00:00:[address] [facility] Influenza Virus 2014-04-12 Completed Universit y of Vaccine Quad IM 3+ 00:00:[address] [facility] Influenza Virus 2014-04-12 Completed Universit y of Vaccine Quad IM 3+ 00:00:[address] [facility] Influenza Virus 2014-04-12 Completed Universit y of Vaccine Quad IM 3+ 00:00:[address] [facility] Influenza Virus 2014-04-12 Completed Universit y of Vaccine Quad IM 3+ 00:00:[address] [facility] Influenza Virus 2014-04-12 Completed Universit y of Vaccine Quad IM 3+ 00:00:[address] [facility] Influenza Virus 2014-04-12 Completed Universit y of Vaccine Quad IM 3+ 00:00:[address] [facility] Influenza Virus 2014-04-12 Completed Universit y of Vaccine Quad IM 3+ 00:00:[address] [facility] Influenza Virus 2014-04-12 Completed Universit y of Vaccine Quad IM 3+ 00:00:[address] [facility] Influenza Virus 2014-04-12 Completed Universit y of Vaccine Quad IM 3+ 00:00:[address] [facility] Influenza Virus 2014-04-12 Completed Universit y of Vaccine Quad IM 3+ 00:00:[address] [facility] Influenza Virus 2014-04-12 Completed Universit y of Vaccine Quad IM 3+ 00:00:[address] [facility] Influenza Virus 2014-04-12 Completed Universit y of Vaccine Quad IM 3+ 00:00:[address] [facility] Influenza Virus 2014-04-12 Completed Universit y of Vaccine Quad IM 3+ 00:00:00 [facility] Pneumococcal 2013-04-22 Completed University o f Polysaccharide, 00:00:00 [facility] ical PPSV23 (PNEUMOVAX) Branch Influenza Virus 2013-04-22 Completed Universit y of Vaccine (3+ yrs) 00:00:00 [facility] Pneumococcal 2013-04-22 Completed University o f Polysaccharide, 00:00:00 [facility] PPSV23 (PNEUMOVAX) Branch Influenza Virus 2013-04-22 Completed Universit y of Vaccine (3+ yrs) 00:00:00 [facility] Pneumococcal 2013-04-22 Completed University o f Polysaccharide, 00:00:00 [facility] PPSV23 (PNEUMOVAX) Branch Influenza Virus 2013-04-22 Completed Universit y of Vaccine (3+ yrs) 00:00:00 [facility] Pneumococcal 2013-04-22 Completed University o f Polysaccharide, 00:00:00 [facility] PPSV23 (PNEUMOVAX) Branch Influenza Virus 2013-04-22 Completed Universit y of Vaccine (3+ yrs) 00:00:00 [facility] Pneumococcal 2013-04-22 Completed University o f Polysaccharide, 00:00:00 [facility] PPSV23 (PNEUMOVAX) Branch Influenza Virus 2013-04-22 Completed Universit y of Vaccine (3+ yrs) 00:00:00 [facility] Pneumococcal 2013-04-22 Completed University o f Polysaccharide, 00:00:00 [facility] PPSV23 (PNEUMOVAX) Branch Influenza Virus 2013-04-22 Completed Universit y of Vaccine (3+ yrs) 00:00:00 [facility] Pneumococcal 2013-04-22 Completed University o f Polysaccharide, 00:00:00 [facility] PPSV23 (PNEUMOVAX) Branch Influenza Virus 2013-04-22 Completed Universit y of Vaccine (3+ yrs) 00:00:00 [facility] Pneumococcal 2013-04-22 Completed University o f Polysaccharide, 00:00:00 [facility] PPSV23 (PNEUMOVAX) Branch Influenza Virus 2013-04-22 Completed Universit y of Vaccine (3+ yrs) 00:00:00 [facility] Pneumococcal 2013-04-22 Completed University o f Polysaccharide, 00:00:00 [place] [facility] PPSV23 (PNEUMOVAX) Branch Influenza Virus 2013-04-22 Completed Universit y of Vaccine (3+ yrs) 00:00:00 [facility] Pneumococcal 2013-04-22 Completed University o f Polysaccharide, 00:00:00 [facility] PPSV23 (PNEUMOVAX) Branch Influenza Virus 2013-04-22 Completed Universit y of Vaccine (3+ yrs) 00:00:00 [facility] Pneumococcal 2013-04-22 Completed University o f Polysaccharide, 00:00:00 [facility] PPSV23 (PNEUMOVAX) Branch Influenza Virus 2013-04-22 Completed Universit y of Vaccine (3+ yrs) 00:00:00 [facility] Pneumococcal 2013-04-22 Completed University o f Polysaccharide, 00:00:00 [facility] PPSV23 (PNEUMOVAX) Branch Influenza Virus 2013-04-22 Completed Universit y of Vaccine (3+ yrs) 00:00:00 [facility] Pneumococcal 2013-04-22 Completed University o f Polysaccharide, 00:00:00 [place] [facility] PPSV23 (PNEUMOVAX) Branch Influenza Virus 2013-04-22 Completed Universit y of Vaccine (3+ yrs) 00:00:00 [facility] Pneumococcal 2013-04-22 Completed University o f Polysaccharide, 00:00:00 [facility] PPSV23 (PNEUMOVAX) Branch Influenza Virus 2013-04-22 Completed Universit y of Vaccine (3+ yrs) 00:00:00 [facility] Pneumococcal 2013-04-22 Completed University o f Polysaccharide, 00:00:00 [facility] PPSV23 (PNEUMOVAX) Branch Influenza Virus 2013-04-22 Completed Universit y of Vaccine (3+ yrs) 00:00:00 [facility] Pneumococcal 2013-04-22 Completed University o f Polysaccharide, 00:00:00 [place] [facility] PPSV23 (PNEUMOVAX) Branch Influenza Virus 2013-04-22 Completed Universit y of Vaccine (3+ yrs) 00:00:00 [facility] Pneumococcal 2013-04-22 Completed University o f Polysaccharide, 00:00:00 [facility] PPSV23 (PNEUMOVAX) Branch Influenza Virus 2013-04-22 Completed Universit y of Vaccine (3+ yrs) 00:00[facility] 2013-04-22 Completed University o f Polysaccharide, 00:00:00 [place] [facility] PPSV23 (PNEUMOVAX) Branch Influenza Virus 2013-04-22 Completed Universit y of Vaccine (3+ yrs) 00:00:00 [facility] Pneumococcal 2013-04-22 Completed University o f Polysaccharide, 00:00:00 [facility] PPSV23 (PNEUMOVAX) Branch Influenza Virus 2013-04-22 Completed Universit y of Vaccine (3+ yrs) 00:00:00 [facility] Pneumococcal 2013-04-22 Completed University o f Polysaccharide, 00:00:00 [facility] PPSV23 (PNEUMOVAX) Branch Influenza Virus 2013-04-22 Completed Universit y of Vaccine (3+ yrs) 00:00:00 [facility] Pneumococcal 2013-04-22 Completed University o f Polysaccharide, 00:00:00 [facility] PPSV23 (PNEUMOVAX) Branch Influenza Virus 2013-04-22 Completed Universit y of Vaccine (3+ yrs) 00:00:00 [facility] Pneumococcal 2013-04-22 Completed University o f Polysaccharide, 00:00:00 [facility] PPSV23 (PNEUMOVAX) Branch Influenza Virus 2013-04-22 Completed Universit y of Vaccine (3+ yrs) 00:00:00 [facility] Pneumococcal 2013-04-22 Completed University o f Polysaccharide, 00:00:00 [place] [facility] PPSV23 (PNEUMOVAX) Branch Influenza Virus 2013-04-22 Completed Universit y of Vaccine (3+ yrs) 00:00:00 [facility] Pneumococcal 2013-04-22 Completed University o f Polysaccharide, 00:00:00 [facility] PPSV23 (PNEUMOVAX) Branch Influenza Virus 2013-04-22 Completed Universit y of Vaccine (3+ yrs) 00:00:00 [facility] Pneumococcal 2013-04-22 Completed University o f Polysaccharide, 00:00:00 [place] [facility] PPSV23 (PNEUMOVAX) Branch Influenza Virus 2013-04-22 Completed Universit y of Vaccine (3+ yrs) 00:00:00 [facility] Pneumococcal 2013-04-22 Completed University o f Polysaccharide, 00:00:00 [place] [facility] PPSV23 (PNEUMOVAX) Branch Influenza Virus 2013-04-22 Completed Universit y of Vaccine (3+ yrs) 00:00:00 [facility] Pneumococcal 2013-04-22 Completed University o f Polysaccharide, 00:00:00 [facility] PPSV23 (PNEUMOVAX) Branch Influenza Virus 2013-04-22 Completed Universit y of Vaccine (3+ yrs) 00:00[facility] 2013-04-22 Completed University o f Polysaccharide, 00:00:00 [place] [facility] PPSV23 (PNEUMOVAX) Branch Influenza Virus 2013-04-22 Completed Universit y of Vaccine (3+ yrs) 00:00:00 [facility] Pneumococcal 2013-04-22 Completed University o f Polysaccharide, 00:00:00 [place] [facility] PPSV23 (PNEUMOVAX) Branch Influenza Virus 2013-04-22 Completed Universit y of Vaccine (3+ yrs) 00:00:00 [facility] Pneumococcal 2013-04-22 Completed University o f Polysaccharide, 00:00:00 [facility] ical PPSV23 (PNEUMOVAX) Branch Influenza Virus 2013-04-22 Completed Universit y of Vaccine (3+ yrs) 00:00:00 [facility] Pneumococcal 2013-04-22 Completed University o f Polysaccharide, 00:00:00 [place] [facility] PPSV23 (PNEUMOVAX) Branch Influenza Virus 2013-04-22 Completed Universit y of Vaccine (3+ yrs) 00:00:00 [facility] Pneumococcal 2013-04-22 Completed University o f Polysaccharide, 00:00:00 [facility] PPSV23 (PNEUMOVAX) Branch Influenza Virus 2013-04-22 Completed Universit y of Vaccine (3+ yrs) 00:00:00 [facility] Pneumococcal 2013-04-22 Completed University o f Polysaccharide, 00:00:00 [facility] PPSV23 (PNEUMOVAX) Branch Influenza Virus 2013-04-22 Completed Universit y of Vaccine (3+ yrs) 00:00:00 [facility] Pneumococcal 2013-04-22 Completed University o f Polysaccharide, 00:00:00 [place] [facility] PPSV23 (PNEUMOVAX) Branch Influenza Virus 2013-04-22 Completed Universit y of Vaccine (3+ yrs) 00:00:00 [facility] Pneumococcal 2013-04-22 Completed University o f Polysaccharide, 00:00:00 [facility] ical PPSV23 (PNEUMOVAX) Branch Influenza Virus 2013-04-22 Completed Universit y of Vaccine (3+ yrs) 00:00:00 [facility] Vital Signs Vital Name Observation Time Observation Value Comments Source Systolic blood 2022-03-31 19:54:00 107 mm[Hg] Univer sity of pressure [facility] Diastolic blood 2022-03-31 19:54:00 73 mm[Hg] Unive rsity of pressure [facility] Heart rate 2022-03-31 19:54:00 94 /min Universi ty of [facility] Body temperature 2022-03-31 19:54:00 37 Sabrina Univ ersity of [facility] Body height 2022-03-31 19:54:00 171.5 cm Universi ty of [facility] Body weight 2022-03-31 19:54:00 72.576 kg Universi ty of [facility] BMI 2022-03-31 19:54:00 24.69 kg/m2 Universi ty of [facility] Oxygen saturation in 2022-03-31 19:54:00 95 /min [facility] Arterial blood by [facility] Pulse oximetry Branch Systolic blood 2022-03-05 19:52:00 136 mm[Hg] Univer sity of [facility] Diastolic blood 2022-03-05 19:52:00 83 mm[Hg] Unive rsity of [facility] Heart rate 2022-03-05 19:52:00 98 /min Universi ty of [facility] Body temperature 2022-03-05 19:52:00 36.72 Sabrina Univ ersity of [facility] Respiratory rate 2022-03-05 19:52:00 18 /min Univ ersity of [facility] Body height 2022-03-05 19:52:00 171.5 cm Universi ty of [facility] Body weight 2022-03-05 19:52:00 73.936 kg Universi ty of [facility] BMI 2022-03-05 19:52:00 25.15 kg/m2 Universi ty of [facility] Systolic blood 2022-01-24 18:20:00 131 mm[Hg] Univer sity of pressure [facility] Diastolic blood 2022-01-24 18:20:00 91 mm[Hg] Unive rsity of pressure [facility] Heart rate 2022-01-24 18:19:00 102 /min Universi ty of [facility] Body temperature 2022-01-24 18:19:00 36.72 Sabrina Univ ersity of [facility] Body height 2022-01-24 18:19:00 171.5 cm Universi ty of [facility] Body weight 2022-01-24 18:19:00 74.707 kg Universi ty of [facility] BMI 2022-01-24 18:19:00 25.41 kg/m2 Universi ty of [facility] Oxygen saturation in 2022-01-24 18:19:00 97 /min University of Arterial blood by [facility] Pulse oximetry Branch Systolic blood 2022-01-24 18:20:00 131 mm[Hg] Univer sity of pressure [facility] Diastolic blood 2022-01-24 18:20:00 91 mm[Hg] Unive rsity of [facility] Heart rate 2022-01-24 18:19:00 102 /min Universi ty of [facility] Body temperature 2022-01-24 18:19:00 36.72 Sabrina Univ ersity of [facility] Body height 2022-01-24 18:19:00 171.5 cm [facility]i ty of [facility] Body weight 2022-01-24 18:19:00 74.707 kg Universi ty of [facility] BMI 2022-01-24 18:19:00 25.41 kg/m2 Universi ty of [facility] Oxygen saturation in 2022-01-24 18:19:00 97 /min University of Arterial blood by [facility] Pulse oximetry Branch Respiratory rate 2021-11-22 18:55:00 20 /min [facility] Procedures Procedure Date / Time Performing Clinician Source Performed SARS-COV-2 COVID-19 2022-03-31 20:06:29 Sarita Ferrari [facility] JSAPER-SUCROSE VACCINE [address] [place] [address] YRS+, BIVALENT 0.3ML, IM, (PFIZER ROGER TOP BOOSTER) PNEUMOCOCCAL 20 CONJUGATE 2022-03-31 20:01:27 Sarita Ferrari [facility] (PREVNAR 20) VACCINE [facility] REFERRAL- 2022-03-31 05:01:00 Doctor Unassigned, [facility] REQUEST/RESPONSE [facility] INSURANCE CORRESPONDENCE 2022-03-10 05:01:00 Doctor Eze, [facility] CBC WITH DIFF 2022-01-24 21:07:00 Vonda [facility] GLYCOSYLATED HEMOGLOBIN 2022-01-24 21:07:[address] [facility] (A1C) [facility] [place] COMP. METABOLIC PANEL 2022-01-24 21:07:00 Vonda [facility] ([id number]) [facility] IONIZED CALCIUM 2022-01-24 21:07:00 Vonda [facility] THYROID STIMULATING 2022-01-24 21:07:00 [facility] THYROXINE, TOTAL 2022-01-24 21:07:00 Vonda [facility] CBC WITH DIFF 2022-01-24 21:07:00 Vonda [facility] URINE CULTURE 2022-01-24 19:17:00 Vonda [facility] URINE CULTURE 2022-01-24 19:17:00 Vonda [facility] POCT URINALYSIS 2022-01-24 [facility] 2022-01-24 19:00:00 Vonda [facility] Plan of Care Planned Activity Planned Date Details Comments Source Future Scheduled 2022-05-31 COVID-19 VACCINE (#1) [facility] Test 07:02:30 [code = COVID-19 VACCINE (#1)] Future Scheduled 2022-05-31 Pneumococcal Vaccine: [facility] Test 07:02:30 Pediatrics (0 to 5 Years) and At-Risk Patients (6 to 64 Years) (1 - PCV) [code = Pneumococcal Vaccine: Pediatrics (0 to 5 Years) and At-Risk Patients (6 to 64 Years) (1 - PCV)] Future Scheduled 2022-05-31 DIABETES: RETINAL EYE [facility] [facility] Test 07:02:30 EXAM [code = DIABETES: RETINAL EYE EXAM] Future Scheduled 2022-05-31 [facility] Test 07:02:30 [code = DIABETIC FOOT EXAM] Future Scheduled 2022-05-31 URINE MICROALBUMIN [facility] Test 07:02:30 [code = URINE MICROALBUMIN] Future Scheduled 2022-05-[address] [facility] Test 07:02:30 (procedure) [code = 605803685] Future Scheduled 2022-05-31 [facility] Test 07:02:30 malignant neoplasm of cervix (procedure) [code = 391888843] Future Scheduled 2022-05-31 BREAST CANCER [facility] Test 07:02:30 SCREENING [code = BREAST CANCER SCREENING] Future Scheduled 2022-05-31 INFLUENZA VACCINE [facility] Test 07:02:30 [code = INFLUENZA VACCINE] Future Scheduled 2022-05-31 COVID-19 VACCINE (#1) [facility] Test 07:02:30 [code = COVID-19 VACCINE (#1)] Future Scheduled 2022-05-31 Pneumococcal Vaccine: [facility] Test 07:02:30 Pediatrics (0 to 5 Years) and At-Risk Patients (6 to 64 Years) (1 - PCV) [code = Pneumococcal Vaccine: Pediatrics (0 to 5 Years) and At-Risk Patients (6 to 64 Years) (1 - PCV)] Future Scheduled 2022-05-31 DIABETES: RETINAL EYE [facility] Test 07:02:30 EXAM [code = DIABETES: RETINAL EYE EXAM] Future Scheduled 2022-05-31 DIABETIC FOOT EXAM [facility] Test 07:02:30 [code = DIABETIC FOOT EXAM] Future Scheduled 2022-05-31 URINE MICROALBUMIN [facility] Test 07:02:30 [code = URINE MICROALBUMIN] Future Scheduled 2022-05-31 Hepatitis C screening [facility] Test 07:02:30 (procedure) [code = 400440168] Future Scheduled 2022-05-31 [facility] Test 07:02:30 malignant neoplasm of cervix (procedure) [code = 576093953] Future Scheduled 2022-05-31 BREAST CANCER [facility] Test 07:02:30 SCREENING [code = BREAST CANCER SCREENING] Future Scheduled 2022-05-31 INFLUENZA VACCINE Method [facility] Test 07:02:30 [code = INFLUENZA VACCINE] Future Scheduled 2022-05-31 COVID-19 VACCINE (#1) [facility] Test 07:02:30 [code = COVID-19 VACCINE (#1)] Future Scheduled 2022-05-31 Pneumococcal Vaccine: [facility] Test 07:02:30 Pediatrics (0 to 5 Years) and At-Risk Patients (6 to 64 Years) (1 - PCV) [code = Pneumococcal Vaccine: Pediatrics (0 to 5 Years) and At-Risk Patients (6 to 64 Years) (1 - PCV)] Future Scheduled 2022-05-31 DIABETES: RETINAL EYE [facility] Test 07:02:30 EXAM [code = DIABETES: RETINAL EYE EXAM] Future Scheduled 2022-05-[address] [facility] Test 07:02:30 [code = DIABETIC FOOT EXAM] Future Scheduled 2022-05-[address] [facility] Test 07:02:30 [code = URINE MICROALBUMIN] Future Scheduled 2022-05-[address] [facility] Test 07:02:30 (procedure) [code = 336525593] Future Scheduled 2022-05-31 Screening for [facility] Test 07:02:30 malignant neoplasm of cervix (procedure) [code = 303312355] Future Scheduled 2022-05-31 BREAST CANCER [facility] Test 07:02:30 SCREENING [code = BREAST CANCER SCREENING] Future Scheduled 2022-05-31 INFLUENZA VACCINE Method [facility] Test 07:02:30 [code = INFLUENZA VACCINE] [...] malignant neoplasm of cervix (procedure) [code = 029863520] Future Scheduled 2008 [facility] Test 00:[facility]:00 malignant neoplasm of cervix (procedure) [code = 581067376] Future Scheduled 2008 [facility] Test 00:00:00 malignant neoplasm of cervix (procedure) [code = 174544801] Future Scheduled 2008 [facility] Test 00:00:00 malignant neoplasm of cervix (procedure) [code = 298029924] Future Scheduled 2008 [facility] Test 00:00:00 malignant neoplasm of cervix (procedure) [code = 348611362] Future Scheduled 2008 [facility] Test 00:00:00 malignant neoplasm of cervix (procedure) [code = 482327168] Future Scheduled 1979-02-07 COVID-19 Vaccine (#1) [facility] [...] Date/Time Type Type Clinicians Facility Department ID 2022-07-11 2022-07-11 Outpatient R VONDA SCGREGORY [facility] [id number] Univers 08:40:00 08:40:00 [facility] 2022-07-09 2022-07-09 Cherry Ferrari SCGREGORY 1.2.446.563 [id number] Univers 00:00:00 00:00:00 Count includes the [facility].13.10 [facility] 4.2.7.2.686 Jon as STEPHANIE?BLEA [phone] Ut migue JORDAN [address] [place] [address] [facility] 2022-07-07 2022-07-07 Refill [facility] 1.2.840.114 [id number] Univers 00:00:00 00:00:00 Count includes the [facility] 350.1.13.10 ity of [place] 4.2.7.2.686 Jon as STEPHANIE?BLEA [phone] Ut migue GALLOWAY[address] OFF[address] [facility] 2022-07-07 2022-07-07 Patient [facility] 1.2.840.114 [id number] Univers 00:00:00 00:00:00 Secure Msg Count includes the [facility] 350.1.13.10 ity of [place] 4.2.7.2.686 Jon as STEPHANIE?BLEA [phone] Ut migue [address] 2022-07-04 2022-07-04 [facility] [id number] Univers 11:00:00 11:00:00 [facility] 2022-07-03 2022-07-03 [facility] [id number] Univers 14:20:00 14:20:00 [facility] 2022-06-23 2022-06-23 RUST 1.2.840.114 [id number] Univers 00:00:00 00:00:00 Count includes the [facility] 350.1.13.10 ity of [place] 4.2.7.2.686 Jon as STEPHANIE?BLEA [phone] [address] [facility] 2022-06-16 2022-06-16 Outpatient [facility] [id number] Univers 11:00:00 11:00:00 [facility] 2022-06-16 2022[facility]06-16 [facility] 1.2.840.114 [id number] Univers 00:00:00 00:00:00 Count includes the [facility] 350.1.13.10 ity [facility] 4.2.7.2.686 Jon as STEPHANIE?BLEA [phone] Ut dical [address] OFF[address] [facility] 2022-06-09 2022-06-09 Telephone [facility] 1.2.528.228 [id number] Univers 00:00:00 00:00:00 Sarita LEAGUE 350.1.13.10 ity of [facility] [place] [phone] [facility] AND [address] [place] [address] E CLINIC 2022-05-29 2022-05-29 [facility] [id number] Univers 10:40:00 10:40:[address] [facility] 2022-05-26 2022-05-26 Outpatient R ALICIA [facility] [id number] Univers 00:00:00 00:00:00 POLLY [facility] 2022-05-21 2022-05-21 Patient [facility] 1.2.840.114 [id number] Univers 00:00:00 00:00:00 Secure [facility] 350.1.13.10 ity of [place] 4.2.7.2.686 Jon as STEPHANIE?BLEA [phone] [address] [facility] 2022-05-21 2022-05-21 Telephone [facility] 1.2.492.790 [id number] Univers 00:00:00 00:00:00 Sarita HEALTH 350.1.13.10 ity of [place] 4.2.7.2.686 Jon as STEPHANIE?BLEA [phone] [address] [facility] 2022-05-19 2022-05-19 [facility]Park[facility] Hospital[facility]io[facility] 1.2.840.114 [id number] Univers 00:00:00 00:00:00 Sarita LEAGUE 350.1.13.10 ity of [facility] 4.2.7.2.[place] [phone] [facility] AND [address] [place] [address] E CLINIC 2022-05-16 2022-05-16 RefPark[facility] HospitalarsenioUN[facility] 1.2.840.114 [id number] Univers 00:00:00 00:00:00 Sarita LEAGUE 350.1.13.10 ity of [facility] 4[place].2.[place] [phone] [facility] AND [address] [place] [address] E CLINIC 2022-05-06 2022-05-06 Outpatient R NEETU [facility] [id number] Univers 14:30:00 14:30:[address] [facility] 2022-05-06 2022-05-06 Outpatient R NEETU, [facility] [id number] Univers 14:30:00 14:30:[address] [facility] 2022-05-06 2022-05-06 Outpatient R NEETU, [facility] [id number] Univers 14:30:00 14:30:[address] [facility] 2022-05-06 2022-05-06 Outpatient R NEETU, [facility] [id number] Univers 14:30:00 14:30:00 [facility] ity [facility] 2022-04-30 2022-04-30 Refrafia EllsworthUNM [facility] 1.2.840.114 [id number] Univers 00:00:00 00:00:00 Alexsandra PENA 350.1.13.10 it y of [facility] 4.2.7.2.686 Jon as PEDIATRIC [phone] [facility] AND [address] [place] [address] E CLINIC 2022-04-30 2022-04-30 Refill [facility] 1.2.840.114 [id number] Univers 00:00:00 00:00:00 Count includes the [facility] 350.1.13.10 ity of [place] 4.2.7.2.686 Jon as STEPHANIE?BLEA [phone] Ut dic[address] MED[address] OFF[facility] 2022-04-22 2022-04-22 Patient [facility] 1.2.840.114 [id number] Univers 00:00:00 00:00:00 Secure Msg Count includes the [facility] 350.1.13.10 ity of [place] 4.2.7.2.686 Jon as STEPHANIE?BLEA [phone] Ut dic[address] MEDICAL [facility] [facility] 2022-04-21 2022-04-21 Telephone [facility] 1.2.957.790 [id number] Univers 00:00:00 00:00:00 Count includes the [facility] 350.1.13.10 ity of [place] 4.2.7.2.686 Jon as STEPHANIE?BLEA [phone] [address] [facility] 2022-04-14 2022-04-14 Outpatient R ALICIA [facility] [id number] Univers 00:00:00 00:00:[address] [facility] 2022-04-09 2022-04-09 Telephone [facility] 1.2.743.017 [id number] Univers 00:00:00 00:00:00 Count includes the [facility] 350.1.13.10 ity of [place] 4.2.7.2.686 Jon as STEPHANIE?BLEA [phone] [address] [facility] 2022-04-08 2022-04-08 Patient [facility]UN[facility] 1.2.840.114 [id number] Univers 00:00:00 00:00:00 Secure Msg Count includes the [facility] 350.1.13.10 ity of [place] 4.2.7.2.686 Jon as STEPHANIE?BLEA [phone] [address] [facility] 2022-04-08 2022-04-08 Refill KaushalarsenioUN[facility] 1.2.840.114 [id number] Univers 00:00:00 00:00:00 Sarita PENA 350.1.13.10 ity of [facility] 4.2.7.2.[place] [phone] Ut dicsd AND [address] [place] [address] E CLINIC 2022-04-01 2022-04-01 Refrafia Ellsworth [facility] 1.2.840.114 [id number] Univers 00:00:00 00:00:00 Alexsandra PENA 350.1.13.10 it y of [facility] 4.2.7.2.686 Jon as PEDIATRIC [phone] [facility] AND [address] [place] [address] E CLINIC 2022-04-01 2022-04-01 Patient Vonda [facility] 1.2.840.114 [id number] Univers 00:00:00 00:00:00 Secure Msg Sarita HEALTH 350.1.13.10 ity of [facility] 4.2.7.2.686 Jon as STEPHANIE?BLEA [phone] [address] MEDICAL OFFICE [facility] 2022-03-31 2022-03-31 Outpatient R VONDA [facility] [id number] Univers 14:20:00 16:03:25 [facility] 2022-03-31 2022-03-31 Office [facility] 1.2.840.114 [id number] Univers 14:20:00 16:03:25 Visit Sarita HEALTH 350.1.13.10 ity of [place] 4.2.7.2.686 Jon as STEPHANIE?BLEA [phone] [address] [facility] 2022-03-31 2022-03-31 Orders Doctor JONES 1.2.840.114 [id number] Univers 00:00:00 00:00:00 Only Unassigned, MAURO 350.1.13.10 ity of [place] [facility] 4.2.7.2.686 Jon as [phone] [address] 2022-03-27 2022-03-27 Outpatient R VONDA [facility] [id number] Univers 14:20:00 14:20:00 SARITA [facility] 2022-03-21 2022-03-21 Outpatient R TOBY [facility] [id number] Univers 14:00:00 14:00:[address] [facility] 2022-03-17 2022-03-17 Patient [facility] 1.2.840.114 [id number] Univers 00:00:00 00:00:00 Secure Msg Sarita HEALTH 350.1.13.10 ity of [place] 4.2.7.2.686 Jon as STEPHANIE?BLEA [phone] [address] [facility] 2022-03-11 2022-03-11 Refill [facility]UN[facility] 1.2.840.114 [id number] Univers 00:00:00 00:00:00 Saritanavneet PENA 350.1.13.10 ity of [facility] 4.2.7.2.[place] [phone] Me dical AND [address] [facility] E CLINIC 2022-03-10 2022-03-10 Orders Doctor ROBERT 1.2.840.114 [id number] Univers 00:00:00 00:00:00 Only Unassigned, MAURO 350.1.13.10 ity of [facility] 4.2.7.2.686 Jon as [phone] [address] 2022-03-05 2022-03-05 [facility] [id number] Univers 14:30:00 15:25:35 [facility] 2022-03-05 2022-03-05 Office [facility]UN[facility] 1.2.392.074 [id number] Univers 14:30:00 15:25:35 Visit Polly WILLIAM 350.1.13.10 i ty of [place].7.2.[place] [phone] Me dical NAL [address] [facility] 2022-02-28 2022-02-28 Outpatient R NILA [facility] [id number] Univers 12:45:00 12:45:00 GABE [facility] 2022-02-17 2022-02-17 [facility] [id number] Univers 14:30:00 14:30:00 [facility] 2022-02-15 2022-02-15 Refrafia Ellsworth [facility] 1.2.840.114 [id number] Univers 00:00:00 00:00:00 Alexsandra PENA 350.1.13.10 it y of [facility] 4.2.7.2.686 Jon as PEDIATRIC [phone] Me dical AND [address] [place] [address] E CLINIC 2022-02-12 2022-02-12 Outpatient R SAM [facility] [id number] Univers 14:00:00 14:00:00 OMKAR [facility] 2022-02-06 2022-02-06 Isela Zepeda.2.840.8 [id number] Univers 00:00:00 00:00:00 Alexsandra 27720.1.1 ity of [place] 3.104.2.7 [place] .3.298792 Medica l .8 [place] 2022-01-24 2022-01-24 Catering Associate Sarita Ferrari 1.2.840.1 [id number] Univers 16:00:00 16:52:01 Visit [place] 54[address].1.1 ity of 3.104.2.7 [place] .3.625067 Medica l 8 [place] 2022-01-24 2022-01-24 Catering Associate Lab, Ang - Db [facility] 1.2.840.1 14 [id number] Univers 16:00:00 16:15:00 Visit Sarita Ferrari [facility] 350.1.13.10 ity of [place] 4.2.7.2.686 Jon as STEPHANIE?BLEA [id number] [address] [facility] 2022-01-24 2022-01-24 Outpatient [facility]ALAr[facility] [id number] Univers 13:00:00 14:06:30 [facility] 2022-01-24 2022-01-24 Office [facility] 1.2.840.114 [id number] Univers 13:00:00 14:06:30 Visit Count includes the [facility] 350.1.13.10 ity of [place] 4.2.7.2.686 Jon as STEPHANIE?BLEA [phone] [address] OFF[address] [facility] 2022-01-24 2022-01-24 Outpatient R [facility]ALAr[facility] [id number] Univers 13:00:00 14:06:30 SARITA [facility] 2022-01-24 2022-01-24 [facility] [id number] Univers 13:00:00 14:06:30 [facility] 2022-01-24 2022-01-24 Outpatient [facility] [id number] Univers 13:00:00 14:06:30 [facility] 2022-01-24 2022-01-24 [facility] [id number] Univers 13:00:00 14:06:30 [facility] 2022-01-24 2022-01-24 Patient Kley, 1.2.840.0 [id number] Univers 00:00:00 00:00:00 Secure Msg Sarita 13169.1.1 ity of 3.104.2.7 [place] .3.872560 Medica l .8 [place] 2022-01-24 2022-01-24 Travel 1.2.840.1 1.2.310.440 [id number] Univers 00:00:00 00:00:00 53783.1.1 350.1.13.10 ity of 3.104.2.7 4.[place]7.3.698 [place] .3.970085 084.8 Medica l .8 [place] 2022-01-20 2022-01-20 Patient Doctor 1.2.840.1 [id number] Univers 00:00:00 00:00:00 Secure Msg Unassigned, 26323.1.1 ity of [place] 3.104.2.7 [place] .3.189334 Medica l .8 [place] 2022-01-17 2022-01-17 [facility] [id number] Univers 11:00:00 11:00:00 [facility] 2022-01-17 2022-01-17 Refill [facility]UN[facility] 1.2.840.114 [id number] Univers 00:00:00 00:00:00 Alexsandra PENA 350.1.13.10 it y of [facility] 4.2.7.2.686 Jon as PEDIATRIC [phone] Ut dical AND [address] [place] [address] CLINIC 2022-01-17 2022-01-17 Refrafia Ellsworth, 1.2.840.7 [id number] Univers 00:00:00 00:00:00 Alexsandra 14411.1.1 ity of [place] 3.104.2.7 [place] .3.225836 Medica l .8 [place] 2022-01-16 2022-01-16 Outpatient R BROOKS, [facility] [id number] Univers 10:15:00 10:15:00 LAKEISHA ity of [facility] 2022-01-14 2022-01-14 Travel 1.2.840.1 1.2.337.668 [id number] Univers 00:00:00 00:00:00 83825.1.1 350.1.13.10 ity of 3.104.2.7 4.[place].7.3.698 [place] .3.499768 084.8 Medica l .8 [place] 2022-01-14 2022-01-14 Refill Ellsworth, [facility] 1.2.840.114 [id number] Univers 00:00:00 00:00:00 Alexsandra PENA 350.1.13.10 it y of [facility] 4.2.7.2.686 Jon as PEDIATRIC [id number] [facility] AND [address] [facility] 2022-01-14 2022-01-14 Travel 1.2.840.1 1.2.262.466 [id number] Univers 00:00:00 00:00:00 79928.1.1 350.1.13.10 ity of 3.104.2.7 4.2.7.3.698 [place] .3.853769 084.8 Medica l .8 [place] 2022-01-14 2022-01-14 Refill Ellsworth, 1.2.840.2 [id number] Univers 00:00:00 00:00:00 Alexsandra 25755.1.1 ity of [place] 3.104.2.7 [place] .3.464592 Medica l .8 [place] 2022-01-08 2022-01-08 Refill Ellsworth, 1.2.840.8 [id number] Univers 00:00:00 00:00:00 Alexsandra 92961.1.1 ity of [place] 3.104.2.7 [place] .3.081530 Medica l .8 [place] 2022-01-08 2022-01-08 Refill Ellsworth, 1.2.840.6 [id number] Univers 00:00:00 00:00:00 Alexsandra 14878.1.1 ity of [place] 3.104.2.7 [place] .3.821087 Medica l .8 [place] 2022-01-07 2022-01-07 Outpatient R BROOKS, [facility] [id number] Univers 16:15:00 16:15:[address] [facility] 2021-12-27 2021-12-27 [facility] [id number] Univers 15:00:00 15:00:[address] [facility] 2021-12-25 2021-12-25 [facility] [id number] Univers 08:15:00 08:15:[address] [facility] 2021-12-18 2021-12-18 [facility] [id number] Univers 14:15:00 14:15:[address] [facility] 2021-12-12 2021-12-12 Refill Ellsworth, 1.2.840.2 [id number] Univers 00:00:00 00:00:00 Alexsandra 51862.1.1 ity of [place] 3.104.2.7 [place] .3.082315 Medica l .8 [place] 2021-12-12 2021-12-12 Refill Ellsworth, 1.2.840.3 [id number] Univers 00:00:00 00:00:00 Alexsandra 01601.1.1 ity of [place] 3.104.2.7 [place] .3.730864 Medica l .8 [place] 2021-12-04 2021-12-04 Patient Doctor 1.2.840.3 [id number] Univers 00:00:00 00:00:00 Secure Msg Unassigned, 44982.1.1 ity of [place] 3.104.2.7 [place] .3.933037 Medica l .8 [place] 2021-12-04 2021-12-04 Patient Doctor 1.2.840.2 [id number] Univers 00:00:00 00:00:00 Secure Msg Unassigned, 14054.1.1 ity of [place] 3.104.2.7 [place] .3.614911 Medica l .8 [place] 2021-12-03 2021-12-03 Outpatient R ELLSWORTH, [facility] [id number] Univers 09:00:00 09:00:[address] [facility] 2021-11-22 2021-11-22 [facility] [id number] Univers 13:45:00 14:37:[address] [facility] 2021-11-22 2021-11-22 [facility] [id number] Univers 13:45:00 13:45:[address] [facility] 2021-11-22 2021-11-22 [facility] [id number] Univers 13:00:00 13:00:[address] [facility] 2021-11-21 2021-11-21 Travel 1.2.840.1 1.2.637.048 [id number] Univers 00:00:00 00:00:00 47329.1.1 350.1.13.10 ity of 3.104.2.7 4.[place]7.3.698 [place] .3.773882 084.8 Medica l .8 [place] 2021-11-21 2021-11-21 Travel 1.2.840.1 1.2.473.827 [id number] Univers 00:00:00 00:00:00 05351.1.1 350.1.13.10 ity of 3.104.2.7 4.[place].7.3.698 [place] .3.052369 084.8 Medica l .8 [place] 2021-11-18 2021-11-18 Outpatient R SAM, [facility] [id number] Univers 13:45:00 13:45:[address] [facility] 2021-11-07 2021-11-07 Patient Seng, 1.2.840.2 [id number] Univers 00:00:00 00:00:00 Secure Msg Alexsandra 97284.1.1 i ty of [place] 3.104.2.7 [place] .3.900621 Medica l .8 [place] 2021-10-15 2021-10-15 Telephone [place], 1.2.840.1 [id number] Univers 00:00:00 00:00:00 Alexsandra 58347.1.1 ity of [place] 3.104.2.7 [place] .3.168518 Medica l .8 [place] 2021-10-14 2021-10-14 Telephone [place], 1.2.840.0 [id number] Univers 00:00:00 00:00:00 Alexsandra 95409.1.1 ity of [place] 3.104.2.7 [place] .3.559396 Medica l .8 [place] 2021-10-11 2021-10-11 Office [place], 1.2.840.3 [id number] Univers 10:00:00 10:20:00 Visit Alexsandra 86047.1.1 ity of [place] 3.104.2.7 [place] .3.697677 Medica l .8 [place] 2021-10-11 2021-10-11 Outpatient R SENG [facility] [id number] Univers 10:00:00 10:00:[address] [facility] 2021-10-11 2021-10-11 Outpatient Abel ELLSWORTH [facility] [id number] Univers 10:00:00 10:00:[address] [facility] 2021-10-11 2021-10-11 Outpatient R SENG [facility] [id number] Univers 10:00:00 10:00:[address] [facility] 2021-10-09 2021-10-09 Travel 1.2.840.1 [id number] [id number] Univers 00:00:00 00:00:00 74126.1.1 350.1.13.10 ity of 3.104.2.[place] 4[place].3.698 [place] .3.767716 084.8 Medica l .8 [place] 2021-10-08 2021-10-08 Refill [place], 1.2.840.7 [id number] Univers 00:00:00 00:00:00 Alexsandra 75369.1.1 ity of [place] 3.104.2.7 [place] .3.619900 Medica l .8 [place] 2021-10-08 2021-10-08 Refill [place], 1.2.840.4 [id number] Univers 00:00:00 00:00:00 Alexsandra 94580.1.1 ity of [place] 3.104.2.7 [place] .3.422467 Medica l .8 [place] 2021-09-30 2021-09-30 Outpatient Abel ROPER [facility] [id number] Univers 14:00:00 14:00:[address] [facility] 2021-09-11 2021-09-11 Outpatient Abel MEDINA [facility] [id number] Univers 14:00:00 14:00:[address] [facility] 2021-09-05 2021-09-05 Patient Doctor 1.2.840.0 [id number] Univers 00:00:00 00:00:00 Secure Msg Unassigned, 40754.1.1 ity of [place] 3.104.2.7 [place] .3.740899 Medica l .8 [place] 2021-09-05 2021-09-05 Patient Doctor 1.2.840.3 [id number] Univers 00:00:00 00:00:00 Secure Msg Unassigned, 64541.1.1 ity of [place] 3.104.2.7 [place] .3.891942 Medica l .8 [place] 2021-09-04 2021-09-04 Refill [place], 1.2.840.8 [id number] Univers 00:00:00 00:00:00 [place] 93987.1.1 ity of [place] 3.104.2.7 [place] .3.873057 Medica l .8 [place] 2021-09-04 2021-09-04 Refrafia [place], 1.2.840.3 [id number] 9234 5046 Univers 00:00:00 00:00:00 Alexsandra 06366.1.1 ity of [place] 3.104.2.7 [place] .3.600093 Medica l .8 [place] 2021-08-29 2021-08-29 Outpatient R SDLUIS [facility] [id number] Univers 09:15:00 09:57:10 ity of [facility] 2021-08-29 2021-08-29 Outpatient R OLIVIA [facility] [id number] [facility] 09:15:00 09:15:00 ity of [facility] 2021-08-29 2021-08-29 Travel 1.2.840.1 1.2.613.670 8868 4916 Univers 00:00:00 00:00:00 13554.1.1 350.1.13.10 ity of 3.104.2.7 4.[place].3.698 [place] .3.444313 084.8 Medica l .8 [place] 2021-08-29 2021-08-29 Travel 1.2.840.1 1.2.478.309 5389 4916 [facility] 00:00:00 00:00:00 82861.1.1 350.1.13.10 ity of 3.104.2.7 4.[place].7.3.698 [place] .3.357408 084.8 Medica l .8 [place] 2021-08-29 2021-08-29 Travel 1.2.840.1 1.2.810.585 1258 4916 Univers 00:00:00 00:00:00 38116.1.1 350.1.13.10 ity of 3.104.2.7 [place]7.3.698 [place]3.655425 084.8 Medica l .8 [place] 2021-08-08 2021-08-08 Outpatient R OLIVIA [facility] [id number] Univers 10:00:00 10:00:00 ity of [facility] 2021-08-062021-08-06 Travel 1.2.840.1 1.2.338.727 6709 3705 [facility] 00:00:00 00:00:00 19948.1.1 350.1.13.10 ity of 3.104.2.7 4.[place]7.3.698 [place] .3.621624 084.8 Medica l .8 [place] 2021-08-06 2021-08-06 Travel 1.2.840.1 1.2.579.866 3913 3705 [facility] 00:00:00 00:00:00 67102.1.1 350.1.13.10 ity of 3.104.2.7 4.[place]7.3.698 [place] .3.266911 084.8 Medica l .8 [place] 2021-08-06 2021-08-06 Travel 1.2.840.1 1.2.309.337 0607 3705 [facility] 00:00:00 00:00:00 27058.1.1 350.1.13.10 ity of 3.104.2.7 4.[place]7.3.698 [place] .3.150832 084.8 Medica l .8 [place] 2021-08-04 2021-08-04 Refill Doctor 1.2.840.6 [id number] 22112 340 Univers 00:00:00 00:00:00 Unassigned, 79338.1.1 ity of [place] 3.104.2.7 [place] .3.956761 Medica l .8 [place] 2021-08-04 2021-08-04 Refill [place], 1.2.840.2 [id number] 9157 6341 Univers 00:00:00 00:00:00 Alexsandra 59207.1.1 ity of [place] 3.104.2.7 [place] .3.230373 Medica l .8 [place] 2021-08-04 2021-08-04 Refill [place], 1.2.840.7 [id number] 9157 6140 Univers 00:00:00 00:00:00 Alexsandra 33322.1.1 ity of [place] 3.104.2.7 [place] .3.683011 Medica l .8 [facility] 2021-08-04 2021-08-04 Refill Doctor 1.2.840.5 [id number] 82659 139 Univers 00:00:00 00:00:00 Unassigned, 17081.1.1 ity of [place] 3.104.2.7 [place] .3.012067 Medica l .8 [facility] 2021-08-04 2021-08-04 Refill [place], 1.2.840.8 [id number] 9157 6341 Univers 00:00:00 00:00:00 Alexsandra 31058.1.1 ity of [place] 3.104.2.7 [place] .3.246695 Medica l .8 [facility] 2021-08-04 2021-08-04 Refill Doctor 1.2.840.4 [id number] 72314 340 Univers 00:00:00 00:00:00 Unassigned, 71334.1.1 ity of [place] 3.104.2.7 [place] .3.136291 Medica l .8 [facility] 2021-08-04 2021-08-04 Refill [place], 1.2.840.2 [id number] 9157 6140 Univers 00:00:00 00:00:00 Alexsandra 42012.1.1 ity of [place] 3.104.2.7 [place] .3.124734 Medica l .8 [facility] 2021-08-04 2021-08-04 Refill Doctor 1.2.840.3 [id number] 01817 139 Univers 00:00:00 00:00:00 Unassigned, 69654.1.1 ity of [place] 3.104.2.7 [place] .3.800053 Medica l .8 [facility] 2021-08-04 2021-08-04 Refill [place], 1.2.840.7 [id number] 9157 6341 Univers 00:00:00 00:00:00 Alexsandra 92221.1.1 ity of [place] 3.104.2.7 [place] .3.673456 Medica l .8 [facility] 2021-08-04 2021-08-04 Refill Doctor 1.2.840.5 [id number] 58011 340 Univers 00:00:00 00:00:00 Unassigned, 96446.1.1 ity of [place] 3.104.2.7 [place] .3.724188 Medica l .8 [facility] 2021-08-04 2021-08-04 Refill [place], 1.2.840.4 [id number] 9157 6140 Univers 00:00:00 00:00:00 Alexsandra 28695.1.1 ity of [place] 3.104.2.7 [place] .3.273989 Medica l .8 [facility] 2021-08-04 2021-08-04 Refill Doctor 1.2.840.5 [id number] 61734 139 Univers 00:00:00 00:00:00 Unassigned, 00349.1.1 ity of [place] 3.104.2.7 [place] .3.320975 Medica l .8 [facility] 2021-07-19 2021-07-19 Refill [place], 1.2.840.1 [id number] 9121 3152 Univers 00:00:00 00:00:00 Alexsandra 76684.1.1 ity of [place] 3.104.2.7 [place] .3.214940 Medica l .8 [facility] 2021-07-19 2021-07-19 Refill [place], 1.2.840.5 [id number] 9121 3152 Univers 00:00:00 00:00:00 Alexsandra 51908.1.1 ity of [place] 3.104.2.7 [place] .3.529979 Medica l .8 [facility] 2021-07-19 2021-07-19 Refill [place], 1.2.840.6 [id number] 9121 3152 Univers 00:00:00 00:00:00 Alexsandra 12862.1.1 ity of [place] 3.104.2.7 [place] .3.953658 Medica l .8 [facility] 2021-07-17 2021-07-17 Office [place], [facility] 1.2.840.114 93334 481 Univers 11:00:00 11:20:00 Visit Alexsandra PENA 350.1.13.10 it y of [place] 4.2.7.2.686 Jon as PEDIATRIC [phone] Ut dical AND [address] [place] [address] CLINIC 2021-07-17 2021-07-17 Office [place], 1.2.840.1 [id number] 9112 7481 Univers 11:00:00 11:20:00 Visit Alexsandra 83264.1.1 ity of [place] 3.104.2.7 [place] .3.798422 Medica l .8 [facility] 2021-07-17 2021-07-17 Office [place], 1.2.840.3 [id number] 9112 7481 Univers 11:00:00 11:20:00 Visit Alexsandra 04569.1.1 ity of [place] 3.104.2.7 [place] .3.985456 Medica l .8 [place] 2021-07-17 2021-07-17 Office [place], 1.2.840.0 [id number] 9112 7481 Univers 11:00:00 11:20:00 Visit Alexsandra 00993.1.1 ity of [place] 3.104.2.7 [place] .3.531267 Medica l .8 [place] 2021-07-17 2021-07-17 Outpatient R SENG, [facility] [id number] 3718 Univers 11:00:00 11:00:00 ALEXSANDRA ity of [facility] 2021-07-17 2021-07-17 Telephone [place], 1.2.840.6 [id number] 91 [id number] Univers 00:00:00 00:00:00 Alexsandra 12558.1.1 ity of [place] 3.104.2.7 [place] .3.883502 Medica l .8 [place] 2021-07-17 2021-07-17 Travel 1.2.840.1 1.2.500.409 9303 7656 Univers 00:00:00 00:00:00 40334.1.1 350.1.13.10 ity of 3.104.2.7 [place]7.3.698 [place] .3.667539 084.8 Medica l .8 [place] 2021-07-17 2021-07-17 [facility], 1.2.840.8 [id number] Univers 00:00:00 00:00:00 Alexsandra 07186.1.1 ity of [place] 3.104.2.7 [place] .3.389739 Medica l .8 [place] 2021-07-17 2021-07-17 Travel 1.2.840.1 1.2.162.444 1751 7656 [facility] 00:00:00 00:00:00 06184.1.1 350.1.13.10 ity of 3.104.2.7 4.[place]7.3.698 [place] .3.971260 084.8 Medica l .8 [place] 2021-07-17 2021-07-17 [place], 1.2.840.7 [id number] 91 [id number] Univers 00:00:00 00:00:00 Alexsandra 57305.1.1 ity of [place] 3.104.2.7 [place] .3.233287 Medica l .8 [place] 2021-07-17 2021-07-17 Travel 1.2.840.1 1.2.675.002 9895 7656 [facility] 00:00:00 00:00:00 86044.1.1 350.1.13.10 ity of 3.104.2.7 4.2.7.3.698 [place] .3.905870 084.8 Medica l .8 [place] 2021-07-15 2021-07-15 Travel 1.2.840.1 1.2.970.196 5114 4694 [facility] 00:00:00 00:00:00 47128.1.1 350.1.13.10 ity of 3.104.2.7 4.2.7.3.698 [place] .3.180260 084.8 Medica l .8 [place] 2021-07-15 2021-07-15 Travel 1.2.840.1 1.2.672.239 1365 4694 Univers 00:00:00 00:00:00 58364.1.1 350.1.13.10 ity of 3.104.2.7 4.2.7.3.698 [place] .3.315349 084.8 Medica l .8 [place] 2021-07-15 2021-07-15 Travel 1.2.840.1 1.2.632.197 9569 4694 [facility] 00:00:00 00:00:00 06745.1.1 350.1.13.10 ity of 3.104.2.7 4.2.7.3.698 [place] .3.898098 084.8 Medica l .8 [place] 2021-07-09 2021-07-09 Outpatient R SENG [facility] [id number] Univers 14:20:00 14:20:00 ALEXSANDRA ity of [facility] 2021-07-04 2021-07-04 Telephone Seng [facility] 1.2.840.114 907 [id number] Univers 00:00:00 00:00:00 Alexsandra PENA 350.1.13.10 it y of [facility] 4.2.7.2.686 Jon as PEDIATRIC [phone] Ut dical AND [address] [facility] 2021-07-04 2021-07-04 Telephone Seng, 1.2.840.1 [id number] 90 [id number] Univers 00:00:00 00:00:00 Alexsandra 28219.1.1 ity of [place] 3.104.2.7 [place] .3.752737 Medica l .8 [place] 2021-07-04 2021-07-04 Telephone Seng, 1.2.840.3 [id number] 90 [id number] Univers 00:00:00 00:00:00 Alexsandra 08930.1.1 ity of [place] 3.104.2.7 [place] .3.713860 Medica l .8 [place] 2021-07-03 2021-07-03 Patient Doctor 1.2.840.5 [id number] 15822 649 Univers 00:00:00 00:00:00 Secure Msg Unassigned, 89263.1.1 ity of [place] 3.104.2.7 [place] .3.825949 Medica l .8 [place] 2021-07-03 2021-07-03 Patient Doctor 1.2.840.6 [id number] 79870 649 Univers 00:00:00 00:00:00 Secure Msg Unassigned, 76381.1.1 ity of [place] 3.104.2.7 [place] .3.992082 Medica l .8 [place] 2021-07-03 2021-07-03 Patient Doctor 1.2.840.6 [id number] 85347 649 Univers 00:00:00 00:00:00 Secure Msg Unassigned, 27103.1.1 ity of [place] 3.104.2.7 [place] .3.103799 Medica l .8 [place] 2021-06-29 2021-06-29 Telephone [place], 1.2.840.8 [id number] 90 [id number] Univers 00:00:00 00:00:00 Alexsandra 04736.1.1 ity of [place] 3.104.2.7 [place] .3.385865 Medica l .8 [place] 2021-06-29 2021-06-29 Telephone [place], 1.2.840.3 [id number] 90 [id number] Univers 00:00:00 00:00:00 Alexsandra 19354.1.1 ity of [place] 3.104.2.7 [place] .3.976987 Medica l .8 [place] 2021-06-29 2021-06-29 Telephone [place], 1.2.840.1 [id number] 90 585472 Univers 00:00:00 00:00:00 Alexsandra 29014.1.1 ity of [place] 3.104.2.7 [place] .3.906763 Medica l .8 [place] 2021-06-14 2021-06-14 Patient Doctor 1.2.840.7 [id number] 24853 314 Univers 00:00:00 00:00:00 Secure Msg Unassigned, 02197.1.1 ity of [place] 3.104.2.7 [place] .3.629974 Medica l .8 [place] 2021-06-14 2021-06-14 Patient Doctor 1.2.840.7 [id number] 79251 314 Univers 00:00:00 00:00:00 Secure Msg Unassigned, 45663.1.1 ity of [place] 3.104.2.7 [place] .3.027484 Medica l .8 [facility] 2021-06-14 2021-06-14 Patient Doctor 1.2.840.4 [id number] 60986 314 Univers 00:00:00 00:00:00 Secure Msg Unassigned, 25551.1.1 ity of [place] 3.104.2.7 [place] .3.653422 Medica l .8 [facility] 2021-06-01 2021-06-01 Refill Marin, 1.2.840.7 [id number] 02899 853 Univers 00:00:00 00:00:00 Miya 87332.1.1 ity of 3.104.2.7 [place] .3.108372 Medica l .8 [facility] 2021-06-01 2021-06-01 Refill [place], 1.2.840.0 [id number] 48143 853 Univers 00:00:00 00:00:00 Miya 78154.1.1 ity of 3.104.2.7 [place] .3.623022 Medica l .8 [facility] 2021-05-28 2021-05-28 Patient Doctor 1.2.840.6 [id number] 26613 558 Univers 00:00:00 00:00:00 Secure Msg Unassigned, 29190.1.1 ity of [place] 3.104.2.7 [place] .3.269745 Medica l .8 [place] 2021-05-28 2021-05-28 Patient Doctor 1.2.840.1 [id number] 85934 558 Univers 00:00:00 00:00:00 Secure Msg Unassigned, 94864.1.1 ity of [place] 3.104.2.7 [place] .3.476406 Medica l .8 [place] 2021-05-20 2021-05-20 Outpatient bAel HORN [facility] [id number] Univers 14:45:00 14:45:00 MARINE galvan of [facility] 2021-05-18 2021-05-18 Outpatient Abel FRANCO [facility] [id number] Univers 20:45:00 20:59:51 SEKTA it y of [facility] 2021-05-18 2021-05-18 Urgent Unknown, Attending 1.2.840.1 [id number] Univers 20:45:00 20:59:51 Ekta Russ 09191.1.1 ity of 3.104.2.7 [place] .3.002601 Medica l .8 [place] 2021-05-18 2021-05-18 Urgent Unknown, Attending 1.2.840.1 [id number] [id number] Univers 20:45:00 20:59:51 Radha Ekta Newman 76669.1.1 ity of 3.104.2.7 [place] .3.650996 Medica l .8 [place] 2021-05-09 2021-05-09 Outpatient PATY REECE [facility] [id number] Univers 10:00:00 10:57:06 ity of [facility] 2021-05-09 2021-05-09 Travel 1.2.840.1 1.2.183.359 9346 4239 Univers 00:00:00 00:00:00 62318.1.1 350.1.13.10 ity of 3.104.2.7 4.2.7.3.698 [place] .3.554980 084.8 Medica l .8 [place] 2021-05-09 2021-05-09 Travel 1.2.840.1 1.2.682.301 1545 4239 Univers 00:00:00 00:00:00 26950.1.1 350.1.13.10 ity of 3.104.2.7 4.2.7.3.698 [place] .3.045293 084.8 Medica l .8 [place] 2021-05-06 2021-05-06 [place], 1.2.840.9 [id number] 8927 0057 Univers 00:00:00 00:00:00 Alexsandra 09938.1.1 ity of [place] 3.104.2.7 [place] .3.064190 Medica l .8 [place] 2021-04-122021-04-12 Refill Seng, 1.2.840.2 [id number] 8874 2269 Univers 00:00:00 00:00:00 Alexsandra 73541.1.1 ity of [place] 3.104.2.7 [place] .3.213087 Medica l .8 [place] 2021-04-11 2021-04-11 Outpatient R PATY BAKER [facility] [id number] Univers 08:30:00 08:30:00 ity of [facility] 2021-04-10 2021-04-10 Travel 1.2.840.1 1.2.107.569 7491 2313 Univers 00:00:00 00:00:00 63028.1.1 350.1.13.10 ity of 3.104.2.7 4.2.7.3.698 [place] .3.244021 084.8 Medica l .8 [place] 2021-04-01 2021-04-01 Travel 1.2.840.1 1.2.028.432 3528 7961 Univers 00:00:00 00:00:00 96549.1.1 350.1.13.10 ity of 3.104.2.7 4.2.7.3.698 [place] .3.936439 084.8 Medica l .8 [place] 2021-03-22 2021-03-22 Outpatient R SANDEEP ARELY [facility] [id number] Univers 09:15:00 09:15:00 ity of [facility] 2021-03-12 2021-03-12 Patient Doctor 1.2.840.1 [id number] [id number] 696 Univers 00:00:00 00:00:00 Secure Msg Unassigned, 74275.1.1 ity of [place] 3.104.2.7 [place] .3.326543 Medica l .8 [place] 2021-03-08 2021-03-08 Patient Doctor 1.2.840.6 [id number] 62441 142 Univers 00:00:00 00:00:00 Secure Msg Unassigned, 05379.1.1 ity of [place] 3.104.2.7 [place] .3.829870 Medica l .8 [place] 2021-03-07 2021-03-07 Outpatient R OLIVIA PATY [facility] [id number] Univers 08:30:00 08:30:00 ity of [facility] 2021-03-05 2021-03-05 Patient Doctor 1.2.840.0 [id number] 03692 112 Univers 00:00:00 00:00:00 Secure Msg Unassigned, 36100.1.1 ity of [place] 3.104.2.7 [place] .3.868731 Medica l .8 [place] 2021-03-01 2021-03-01 Office Seng [facility] 1.2.840.114 [id number] 080 Univers 14:44:46 15:04:46 Visit Alexsandra PENA 350.1.13.10 it y of [facility] 4.2.7.2.686 Jon as PEDIATRIC [phone] [facility] AND [address] [facility] 2021-03-01 2021-03-01 Office Seng, 1.2.840.4 [id number] 8733 7080 Univers 14:44:46 15:04:46 Visit Alexsandra 38201.1.1 ity of [place] 3.104.2.7 [place] .3.811013 Medica l .8 [place] 2021-03-01 2021-03-01 Outpatient R SENG [facility] [id number] 3363 Univers 14:40:00 14:40:00 ALEXSANDRA galvan of [facility] 2021-02-28 2021-02-28 Refill Doctor 1.2.840.0 [id number] 83645 569 Univers 00:00:00 00:00:00 Unassigned, 65484.1.1 ity of [place] 3.104.2.7 [place] .3.393231 Medica l .8 [place] 2021-02-28 2021-02-28 Refill Doctor 1.2.840.5 [id number] 88153 567 Univers 00:00:00 00:00:00 Unassigned, 34154.1.1 ity of [place] 3.104.2.7 [place] .3.502330 Medica l .8 [place] 2021-02-28 2021-02-28 Travel 1.2.840.1 1.2.176.404 3601 4039 Univers 00:00:00 00:00:00 35685.1.1 350.1.13.10 ity of 3.104.2.7 4.2.7.3.698 [place] .3.209241 084.8 Medica l .8 [place] 2021-02-28 2021-02-28 Refill Doctor 1.2.840.0 [id number] 54209 567 Univers 00:00:00 00:00:00 Unassigned, 38098.1.1 ity of [place] 3.104.2.7 [place] .3.624004 Medica l .8 [place] 2021-02-28 2021-02-28 Refill Doctor 1.2.840.8 [id number] 88505 569 Univers 00:00:00 00:00:00 Unassigned, 75480.1.1 ity of [place] 3.104.2.7 [place] .3.664215 Medica l .8 [place] 2021-02-28 2021-02-28 Travel 1.2.840.1 1.2.716.836 8945 4039 Univers 00:00:00 00:00:00 05005.1.1 350.1.13.10 ity of 3.104.2.7 4.2.7.3.698 [place] .3.673455 084.8 Medica l .8 [place] 2021-02-16 2021-02-16 Refill [place], 1.2.840.9 [id number] 8731 5078 Univers 00:00:00 00:00:00 Alexsandra 17549.1.1 ity of [place] 3.104.2.7 [place] .3.022333 Medica l .8 [place] 2021-02-16 2021-02-16 Refill [place], 1.2.840.0 [id number] 8731 5078 Univers 00:00:00 00:00:00 Alexsandra 51736.1.1 ity of [place] 3.104.2.7 [place] .3.198359 Medica l .8 [facility] 2021-02-01 2021-02-01 Outpatient ARELY LARES [facility] [id number] Univers 10:00:00 10:00:00 ity of [facility] 2021-02-01 2021-02-01 Travel 1.2.840.1 1.2.080.370 5291 2575 [facility] 00:00:00 00:00:00 12849.1.1 350.1.13.10 ity of 3.104.2.7 4.2.7.3.698 [place] .3.459904 084.8 Medica l .8 [facility] 2021-02-01 2021-02-01 Travel 1.2.840.1 1.2.770.645 9651 2575 [facility] 00:00:00 00:00:00 76844.1.1 350.1.13.10 ity of 3.104.2.7 4.2.7.3.698 [place] .3.011014 084.8 Medica l .8 [facility] 2021-01-30 2021-01-30 Travel 1.2.840.1 1.2.784.595 1549 0552 Univers 00:00:00 00:00:00 75478.1.1 350.1.13.10 ity of 3.104.2.7 4.2.7.3.698 [place] .3.534732 084.8 Medica l .8 [facility] 2021-01-30 2021-01-30 Travel 1.2.840.1 1.2.925.775 9133 0552 [facility] 00:00:00 00:00:00 07195.1.1 350.1.13.10 ity of 3.104.2.7 4.2.7.3.698 [place] .3.290338 084.8 Medica l .8 Branch 2021-01-21 2021-01-21 Outpatient GCCOVIDV [facility] 67932 [id number] [facility] 00:00:00 00:00:00 2020-12-28 2020-12-28 Outpatient ARELY LARES [facility] [id number] Univers 10:00:00 10:00:00 ity of [facility] 2020-12-28 2020-12-28 Travel 1.2.840.1 1.2.158.691 0345 5281 Univers 00:00:00 00:00:00 53493.1.1 350.1.13.10 ity of 3.104.2.7 4.2.7.3.698 [place] .3.865534 084.8 Medica l .8 [place] 2020-12-14 2020-12-14 Outpatient R ARELY HOPKINS [facility] [id number] [id number] Univers 10:00:00 10:00:00 ity of [facility] 2020-12-14 2020-12-14 Travel 1.2.840.1 1.2.546.263 6080 9498 Univers 00:00:00 00:00:00 00235.1.1 350.1.13.10 ity of 3.104.2.7 4.2.7.3.698 [place] .3.708597 084.8 Medica l .8 [place] 2020-12-11 2020-12-11 Refill Seng, 1.2.840.7 [id number] 8555 5495 Univers 00:00:00 00:00:00 Alexsandra 57545.1.1 ity of [place] 3.104.2.7 [place] .3.060768 Medica l .8 [place] 2020-11-30 2020-11-30 Outpatient R BOGDAN [facility] [id number] Univers 13:30:00 13:30:00 DEBORAH ity of [facility] 2020-11-24 2020-11-24 Nurse Paulina Reese 1.2.840.7 [id number] Univers 00:00:00 00:00:00 Triage 41379.1.1 ity of 3.104.2.7 [place] .3.165459 Medica l .8 [place] 2020-11-13 2020-11-13 Office [place], 1.2.840.6 [id number] 17276 323 Univers 14:35:52 15:05:52 Visit Rajinder Uriarte 29503.1.1 i ty of 3.104.2.7 [place] .3.768151 Medica l .8 [place] 2020-11-13 2020-11-13 Outpatient R SALINAS [facility] [id number] Univers 14:30:00 14:30:00 RAJINDER ity o f [facility] 2020-11-13 2020-11-13 Travel 1.2.840.1 1.2.222.785 2983 9568 Univers 00:00:00 00:00:00 82693.1.1 350.1.13.10 ity of 3.104.2.7 4.2.7.3.698 [place] .3.645080 084.8 Medica l .8 [place] 2020-11-10 2020-11-10 Refill Seng, 1.2.840.3 [id number] 8482 9060 Univers 00:00:00 00:00:00 Alexsandra 24055.1.1 ity of [place] 3.104.2.7 [place] .3.231985 Medica l .8 [place] 2020-11-10 2020-11-10 Refill Serge 1.2.840.9 [id number] 848 46512 Univers 00:00:00 00:00:00 Keshawn 97787.1.1 ity of [place] 3.104.2.7 [place] .3.629388 Medica l .8 [place] 2020-10-31 2020-10-31 Outpatient R TREMAYNE [facility] [id number] Univers 08:45:00 08:45:[address] [facility] 2020-10-10 2020-10-10 Outpatient R TREMAYNE [facility] 1032 [id number] Univers 09:15:00 09:15:[address] [facility] 2020-10-09 2020-10-09 Refrafia Vidales 1.2.840.4 [id number] [id number] 681 Univers 00:00:00 00:00:00 Pepito Landry 18061.1.1 i ty of 3.104.2.7 [place] .3.927647 Medica l .8 [place] 2020-10-01 2020-10-01 Refill Seng, 1.2.840.1 [id number] 8382 5936 Univers 00:00:00 00:00:00 Alexsandra 98724.1.1 ity of [place] 3.104.2.7 [place] .3.518003 Medica l .8 [place] 2020-10-01 2020-10-01 Refill Serge, 1.2.840.7 [id number] Univers 00:00:00 00:00:00 Keshawn 05673.1.1 ity of [place] 3.104.2.7 [place] .3.399816 Medica l .8 [place] 2020-10-01 2020-10-01 Patient Seng, 1.2.840.5 [id number] Univers 00:00:00 00:00:00 Secure Msg Alexsandra 51574.1.1 i ty of [place] 3.104.2.7 [place] .3.341954 Medica l .8 [place] 2020-09-27 2020-09-27 [id number] Univers 15:45:00 15:45:00 GABE ity of [facility] 2020-09-27 2020-09-27 Travel 1.2.840.1 1.2.771.116 [id number] Univers 00:00:00 00:00:00 45889.1.1 350.1.13.10 ity of 3[place]104.2.7 [place].698 [place] .3.060831 084.8 Medica l .8 [place] 2020-09-21 2020-09-21 Outpatient R ALONDRA, [facility] [id number] Univers 15:00:00 15:00:00 CARLEY ity of [facility] 2020-09-11 2020-09-11 Office Seng, 1.2.840.0 [id number] Univers 13:04:54 13:24:54 Visit Alexsandra 84207.1.1 ity of [place] 3.104.2.7 [place] .3.460568 Medica l .8 [place] 2020-09-112020-09-11 Outpatient R SENG [facility] [id number] Univers 13:00:00 13:00:00 ALEXSANDRA ity of [facility] 2020-09-10 2020-09-10 Travel 1.2.840.1 1.2.952.329 [id number] Univers 00:00:00 00:00:00 16487.1.1 350.1.13.10 ity of 3.104.2.7 [place].3.698 [place] .3.577776 084.8 Medica l .8 [place] 2020-09-10 2020-09-10 Patient Doctor 1.2.840.3 [id number] Univers 00:00:00 00:00:00 Secure Msg Unassigned, 23534.1.1 ity of [place] 3.104.2.7 [place] .3.897898 Medica l .8 [place] 2020-09-09 2020-09-09 Refill Flash, 1.2.840.3 [id number] Univers 00:00:00 00:00:00 Pepito K 91333.1.1 i ty of 3.104.2.7 [place] .3.240063 Medica l .8 [place] 2020-09-09 2020-09-09 Refill Serge, 1.2.840.2 [id number] [id number] Univers 00:00:00 00:00:00 Langston 81547.1.1 ity of [place] 3.104.2.7 [place] .3.293414 Medica l .8 [place] 2020-08-23 2020-08-23 Outpatient ARELY LARES [facility] [id number] Univers 13:30:00 13:30:00 ity of [facility] 2020-08-22 2020-08-22 Travel 1.2.840.1 1.2.670.936 [id number] Univers 00:00:00 00:00:00 50079.1.1 350.1.13.10 ity of 3.104.2.7 [place].3.698 [place] .3.169634 084.8 Medica l .8 [place] 2020-08-09 2020-08-09 Jasper Valentine 1.2.840.1 [id number] Univers 00:00:00 00:00:00 Langston 40460.1.1 ity of [place] 3.104.2.7 [place] .3.248585 Medica l .8 [place] 2020-07-20 2020-07-20 Outpatient Abel BELL [facility] [id number] Univers 09:20:00 09:20:00 RODRÍGUEZ ity [facility] 2020-07-20 2020-07-20 Imm/Inj Rodríguez Bell 1.2.840.1 [id number] Univers 09:04:42 09:05:00 Visit Nurse, Hernandez Pob Immunization 95378.1.1 ity of 3.104.2.7 [place] .3.021477 Medica l .8 [place] 2020-07-20 2020-07-20 Outpatient GCCOVIDV GCCOVIDV [id number] GCCOVID 00:00:00 00:00:00 2020-07-12 2020-07-12 Outpatient ARELY LARES [facility] [id number] Univers 13:30:00 13:30:00 ity of [facility] 2020-07-12 2020-07-12 Travel 1.2.840.1 1.2.470.092 [id number] Univers 00:00:00 00:00:00 53350.1.1 350.1.13.10 ity of 3.104.2.7 [place].3.698 [place] .3.562644 084.8 Medica l .8 [place] 2020-07-12 2020-07-12 Orders Doctor 1.2.840.0 [id number] Univers 00:00:00 00:00:00 Only Unassigned, 19011.1.1 ity of [place] 3.104.2.7 [place] .3.557840 Medica l .8 [place] 2020-07-06 2020-07-06 Jasper Valentine 1.2.840.4 [id number] [id number] Univers 00:00:00 00:00:00 Langston 08974.1.1 ity of [place] 3.104.2.7 [place] .3.169494 Medica l .8 [place] 2020-07-06 2020-07-06 Isela Astorga.2.840.7 [id number] Univers 00:00:00 00:00:00 Wu 58088.1.1 ity of 3.104.2.7 [place] .3.777153 Medica l .8 [place] 2020-06-29 2020-06-29 Outpatient R ESTEBAN, [facility] [id number] Univers 09:20:00 09:20:00 RODRÍGUEZ ity of [facility] 2020-06-29 2020-06-29 Imm/Inj Rodríguez Bell 1.2.840.1 [id number] Univers 09:00:27 09:07:28 Visit Nurse, Hernandez Pob Immunization 66586.1.1 ity of 3.104.2.7 [place] .3.819731 Medica l .8 [place] 2020-06-29 2020-06-29 Outpatient GCCOVIDV GCCOVIDV [id number] GCCOVID 00:00:00 00:00:00 2020-06-29 2020-06-29 Jasper Valentine 1.2.840.0 [id number] [id number] Univers 00:00:00 00:00:00 Langston 51017.1.1 ity of [place] 3.104.2.7 [place] .3.453499 Medica l .8 [place] 2020-06-28 2020-06-28 Outpatient Abel RUDD [facility] [id number] Univers 08:10:00 08:10:00 MARTELL ity of [facility] 2020-06-26 2020-06-26 Patient Tobin 1.2.840.6 [id number] Univers 00:00:00 00:00:00 Outreach Martell 91282.1.1 ity of [place] 3.104.2.7 [place] .3.008108 Medica l .8 [place] 2020-06-25 2020-06-25 Jasper Valentine 1.2.840.9 [id number] [id number] Univers 00:00:00 00:00:00 Langston 90299.1.1 ity of [place] 3.104.2.7 [place] .3.210455 Medica l .8 [place] 2020-06-21 2020-06-21 Patient Doctor 1.2.840.2 [id number] Univers 00:00:00 00:00:00 Secure Msg Unassigned, 88931.1.1 ity of [place] 3.104.2.7 [place] .3.721244 Medica l .8 [place] 2020-06-20 2020-06-20 Patient Serge, 1.2.840.6 [id number] Univers 00:00:00 00:00:00 Secure Msg Keshawn 98714.1.1 i ty of [place] 3.104.2.7 [place] .3.816969 Medica l .8 [place] 2020-06-20 2020-06-20 Patient Serge, 1.2.840.5 [id number] [id number] Univers 00:00:00 00:00:00 Secure Msg Keshawn 52853.1.1 i ty of [place] 3.104.2.7 [place] .3.175967 [facility] [place] 2020-06-18 2020-06-18 Office Serge, 1.2.840.8 [id number] 804 [id number] Univers 09:39:03 09:59:03 Visit Langston 71584.1.1 ity of [place] 3.104.2.7 [place] .3.080904 [facility] .[facility] [place] 2020-06-18 2020-06-18 Outpatient R SERGE, [facility] [id number] [id number] Univers 09:40:00 09:40:00 KESHAWN ity of [facility] 2020-06-18 2020-06-18 Orders Doctor 1.2.840.8 [id number] Univers 00:00:00 00:00:00 Only Unassigned, 16067.1.1 ity of [place] 3.104.2.7 [place] .3.427228 Medica l .8 [facility] 2020-06-12 2020-06-12 Patient Serge, 1.2.840.8 [id number] 806 [id number] Univers 00:00:00 00:00:00 Secure Msg Lang[place] 30094.1.1 i ty of [place] 3.104.2.7 [place] .3.298901 Medica l .8 [facility] 2020-06-01 2020-06-01 Refrafia Valentine, 1.2.840.7 [id number] 804 [id number] Univers 00:00:00 00:00:00 Langston 09879.1.1 ity of [place] 3.104.2.7 [place] .3.640169 Medica l .8 [facility] 2020-05-27 2020-05-27 Refill Serge, 1.2.840.5 [id number] 803 [id number] Univers 00:00:00 00:00:00 Keshawn 37611.1.1 ity of [place] 3.104.2.7 [place] .3.768805 Medica l .8 [facility] 2020-05-10 2020-05-10 Outpatient R SERGE, [facility] [id number] [id number] Univers 13:20:00 13:20:00 KESHAWN ity of [facility] 2020-05-07 2020-05-07 Patient Doctor 1.2.840.8 [id number] Univers 00:00:00 00:00:00 Secure Msg Unassigned, 46204.1.1 ity of [place] 3.104.2.7 [place] .3.069833 Medica l .8 [facility] 2020-04-28 2020-04-28 Jasper Valentine 1.2.840.6 [id number] 797 [id number] Univers 00:00:00 00:00:00 Keshawn 16315.1.1 ity of [place] 3.104.2.7 [place] .3.401925 Medica l .8 [facility] 2020-04-23 2020-04-23 Telephone Serge 1.2.840.3 [id number] Univers 00:00:00 00:00:00 Keshawn 10431.1.1 ity of [place] 3.104.2.7 [place] .3.045453 Medica l .8 Branch 2020-04-23 2020-04-23 Jasper Valentine, 1.2.840.5 [id number] 795 25554 Univers 00:00:00 00:00:00 Langston 76292.1.1 ity of [place] 3.104.2.7 [place] .3.771970 Medica l .8 [facility] 2020-04-21 2020-04-21 Jasper Valentine, 1.2.840.0 [id number] 795 73990 Univers 00:00:00 00:00:00 Keshawn 14694.1.1 ity of [place] 3.104.2.7 [place] .3.603581 Medica l .8 [facility] 2020-04-21 2020-04-21 Jasper Valentine, 1.2.840.7 [id number] 795 91086 Univers 00:00:00 00:00:00 Keshawn 83724.1.1 ity of [place] 3.104.2.7 [place] .3.920738 Medica l .8 [facility] 2020-04-20 2020-04-20 Jasper Valentine, 1.2.840.4 [id number] 795 32246 Univers 00:00:00 00:00:00 Keshawn 66176.1.1 ity of [place] 3.104.2.7 [place] .3.557924 [facility] [place] 2020-03-30 2020-03-30 [facility] 1.2.374.039 8341 9685 Univers 00:00:00 00:00:00 Keshawn PENA 350.1.13.10 it y of [facility] [place] [phone] Me dical AND [address] [place] [address] E CLINIC 2020-03-20 2020-03-20 [facility] 1.2.353.775 2526 0201 Univers 00:00:00 00:00:00 Keshawn JEAN 350.1.13.10 it y of [facility] [place] [phone] Me dical AND [address] [place] [address] E CLINIC 2020-02-20 2020-02-20 Jasper Valentine [facility] 1.2.905.171 6679 6247 Univers 00:00:00 00:00:00 Keshawn LEAGUE 350.1.13.10 it y of [facility] [place] [phone] Ut dical AND [address] [place] [address] 2020-02-20 2020-02-20 NANCY Astorga 1.2.840.114 [id number] 50 Univers 00:00:00 00:00:00 Wu SPECIALTY 350.1.13.10 it[place] [phone] Ut dical [address] 2020-02-20 2020-02-20 Jasper Valentine [facility] 1.2.184.286 5261 6247 00:00:00 00:00:00 [place] LEAGUE 350.1.13.10 [facility] 4.2.7.2.686 PEDIATRIC [phone] AND [address] [place] [address] 2020-02-20 2020-02-20 Jasper Greer SC[facility] 1.2.840.114 [id number] 50 00:00:00 00:00:00 Wu SPECIALTY 350.1.13.10 CARE 4.2.7.2.686 CENTER AT [phone] [address] 2020-02-19 2020-02-19 Jasper Valentine [facility] 1.2.160.763 7102 3151 Univers 00:00:00 00:00:00 [place] LEAGUE 350.1.13.10 it y of [facility] 4[place].2.[place] [phone] Ut timmygarrick AND [address] [place] [address] CLINIC 2020-02-19 2020-02-19 Jasper Valentine [facility] 1.2.501.969 7040 3151 00:00:00 00:00:00 Keshawn LEAGUE 350.1.13.10 [facility] 4.2.7.2.686 PEDIATRIC [phone] AND [address] [place] [address] 2020-01-19 2020-01-19 Jasper Valentine [facility] 1.2.727.629 2662 8022 Univers 00:00:00 00:00:00 Keshawn LEAGUE 350.1.13.10 it y of [facility] 4[place]2.[place] 639.1071669 Me dical AND [address] [facility] 2020-01-19 2020-01-19 Refrafia Serge [facility] 1.2.738.749 8553 8022 00:00:00 00:00:00 Keshawn PENA 350.1.13.10 [facility] 4.2.7.2.686 PEDIATRIC [phone] AND [address] [facility] E CLINIC 2019-12-30 2019-12-30 Telephone NurseJon 1.2.840.0 [id number] Univers 00:00:00 00:00:00 Urgent 89748.1.1 ity of 3.104.2.7 [place] .3.243248 [facility] [place] 2019-12-27 2019-12-27 Patient Serge, 1.2.840.0 [id number] 769 [id number] Univers 00:00:00 00:00:00 Secure Msg Keshawn 28449.1.1 i ty of [facility] 3.104.2.7 [place] .3.171698 Medica l .8 [place] 2019-12-27 2019-12-27 Patient Doctor 1.2.840.2 [id number] Univers 00:00:00 00:00:00 Secure Msg Unassigned, 93970.1.1 ity of [place] 3.104.2.7 [place] .3.499601 [facility] .8 [place] 2019-12-25 2019-12-25 Laboratory Unknown, Attending 1.2.840.1 10 [id number] Univers 16:44:25 16:52:18 Only Nicolas Siddiqui 85005.1.1 ity of NurseJon Urgent 3.104.2.7 [place] .3.481613 Med[facility] l .8 [place] 2019-12-25 2019-12-25 Outpatient R UNKNOWN, [facility] [id number] [id number] Univers 16:45:00 16:45:00 ATTENDING ity of [facility] 2019-12-25 2019-12-25 Travel 1.2.840.1 1.2.959.626 2174 7683 Univers 00:00:00 00:00:00 33584.1.1 350.1.13.10 ity of 3.104.2.7 4[place]2.7.3.698 [place] .3.[place] 084.8 Medica l .8 Branch 2019-12-19 2019-12-19 Jasper Valentine, 1.2.840.1 [id number] 767 50190 Univers 00:00:00 00:00:00 Keshawn 21548.1.1 ity of [place] 3.104.2.7 [place] .3.633921 Medica l .8 [facility] 2019-12-09 2019-12-09 Jasper Valentine, 1.2.840.7 [id number] 765 40017 Univers 00:00:00 00:00:00 Lang[place] 34999.1.1 ity of [place] 3.104.2.7 [place] .3.407543 Medica l .8 [facility] 2019-11-24 2019-11-24 Orders Doctor 1.2.840.1 [id number] 647 Univers 00:00:00 00:00:00 Only Unassigned, 62654.1.1 ity of [place] 3.104.2.7 [place] .3.650257 Medica l .8 [facility] 2019-11-22 2019-11-22 Jasper Valentine, 1.2.840.4 [id number] 761 02226 Univers 00:00:00 00:00:00 Keshawn 88593.1.1 ity of [place] 3.104.2.7 [place] .3.768869 Medica l .8 [facility] 2019-11-19 2019-11-19 Jasper Valentine, 1.2.840.4 [id number] 761 [id number] Univers 00:00:00 00:00:00 Keshawn 76556.1.1 ity of [place] 3.104.2.7 [place] .3.024373 Medica l .8 [facility] 2019-11-16 2019-11-16 Orders Doctor 1.2.840.7 [id number] 20455 037 Univers 00:00:00 00:00:00 Only Unassigned, 12777.1.1 ity of [place] 3.104.2.7 [place] .3.278169 Medica l .8 Branch 2019-11-16 2019-11-16 Telephone Krill, 1.2.840.6 [id number] 760 [id number] Univers 00:00:00 00:00:00 Wu 19787.1.1 ity of 3.104.2.7 [place] .3.593515 Med[facility] .8 [place] 2019-11-08 2019-11-08 Orders Doctor 1.2.840.3 [id number] 933 Univers 00:00:00 00:00:00 Only Unassigned, 77614.1.1 ity of [place] 3.104.2.7 [place] .3.560561 Med[facility] l .8 [place] 2019-10-19 2019-10-19 Jasper Valentine 1.2.840.7 [id number] 756 [id number] Univers 00:00:00 00:00:00 Keshawn 47986.1.1 ity of [place] 3.104.2.7 [place] .3.444587 Med[facility] l .8 [place] 2019-10-19 2019-10-19 Jasper Valentine 1.2.840.2 [id number] 756 02558 Univers 00:00:00 00:00:00 Langston 36864.1.1 ity of [place] 3.104.2.7 [place] .3.347680 Medica l .8 [place] 2019-10-18 2019-10-18 Orders Doctor 1.2.840.3 [id number] 998 Univers 00:00:00 00:00:00 Only Unassigned, 36412.1.1 ity of [place] 3.104.2.7 [place] .3.640793 Med[facility] l .8 [place] 2019-10-18 2019-10-18 Telephone Krrafia, 1.2.840.2 [id number] 756 [id number] Univers 00:00:00 00:00:00 Wu 97349.1.1 ity of 3.104.2.7 [place] .3.899056 Med[facility] l .8 [place] 2019-10-11 2019-10-11 Jasper Valentine 1.2.840.9 [id number] 755 23732 Univers 00:00:00 00:00:00 [place] 65505.1.1 ity of [place] 3.104.2.7 [place] .3.485417 Med[facility] l .8 [place] 2019-10-11 2019-10-11 Jasper Valentine 1.2.840.7 [id number] 755 [id number] Univers 00:00:00 00:00:00 Lang[place] 67190.1.1 ity of [place] 3.104.2.7 [place] .3.514556 Med[facility] l .8 [place] 2019-10-06 2019-10-06 Telemedici FlashShakeel ibrahimSharpe 1.2.840.1 10 [id number] Univers 06:59:58 15:12:03 ne Visit uW Greer 60241.1.1 ity of 3.104.2.7 [place] .3.486806 Medica l .8 [place] 2019-10-06 2019-10-06 Outpatient Abel VIDALES [facility] [id number] Univers 13:00:00 13:00:00 PEPITO ity o f [facility] 2019-09-20 2019-09-20 Orders Doctor 1.2.840.9 [id number] Univers 00:00:00 00:00:00 Only Unassigned, 92256.1.1 ity of [place] 3.104.2.7 [place] .3.020367 Medica l .8 [place] 2019-09-19 2019-09-19 Jasper Valentine 1.2.840.9 [id number] 751 [id number] Univers 00:00:00 00:00:00 [place] 56896.1.1 ity of [place] 3.104.2.7 [place] .3.710900 Med[facility] l .8 [place] 2019-09-19 2019-09-19 Jasper Valentine 1.2.840.1 [id number] 751 [id number] Univers 00:00:00 00:00:00 Keshawn 68473.1.1 ity of [place] 3.104.2.7 [place] .3.671471 Medica l .8 [place] 2019-09-15 2019-09-15 Outpatient ARELY LARES [facility] [id number] Univers 14:15:00 14:15:00 ity of [facility] 2019-09-10 2019-09-10 Isela Sarmiento.2.840.2 [id number] Univers 00:00:00 00:00:00 Wu 59603.1.1 ity of 3.104.2.7 [place] .3.099392 Medica l .8 [place] 2019-09-08 2019-09-08 Outpatient R [facility] [id number] Univers 13:30:00 13:30:00 ity of [facility] 2019-09-08 2019-09-08 Telemedici JoeyBrandontim Heath 1.2.840.1 [id number] Univers 07:06:54 07:36:54 ne Visit Melina Steinberg 94562.1.1 ity of Zoey Wu 3.104.2.7 [place] .3.125029 Medica l .8 [place] 2019-08-26 2019-08-26 [facility] [id number] Univers 15:00:00 15:00:[address] [facility] 2019-08-26 2019-08-26 [facility] 87005 [id number] Univers 15:00:00 15:00:[address] [facility] 2019-08-22 2019-08-22 Patient [facility] 1.2.889.680 [id number] 6782 Univers 00:00:00 00:00:00 Secure Msg [place] LEAGUE 350.1.13.10 ity of [facility] [place] 373.9580605 Me dical AND [address] [place] [address] E CLINIC 2019-08-22 2019-08-22 [facility] 1.2.649.655 6539 6840 Univers 00:00:00 00:00:00 Secure Msg Keshawn LEAGUE 350.1.13.10 ity of [facility] 4[place].2.[place] 587.3801872 Me dical AND [address] [place] [address] E CLINIC 2019-08-19 2019-08-19 Nurse Constantine 1.2.840.7 [id number] 026 Univers 00:00:00 00:00:00 Triage Deysi Mann 71039.1.1 ity of 3.104.2.7 [place] .3.534777 Medica l .8 [place] 2019-08-19 2019-08-19 Refrafia Valentine, 1.2.840.7 [id number] 747 81587 Univers 00:00:00 00:00:00 Keshawn 86620.1.1 ity of [place] 3.104.2.7 [place] .3.887923 Medica l .8 [place] 2019-08-19 2019-08-19 Telephone Serge, 1.2.840.6 [id number] Univers 00:00:00 00:00:00 [place] 66191.1.1 ity of [place] 3.104.2.7 [place] .3.806997 Medica l .8 Branch 2019-08-19 2019-08-19 Jasper Valentine, 1.2.840.1 [id number] 747 [id number] Univers 00:00:00 00:00:00 Keshawn 05212.1.1 ity of [place] 3.104.2.7 [place] .3.877063 Medica l .8 [place] 2019-08-18 2019-08-18 Office Serge 1.2.840.4 [id number] 742 [id number] Univers 13:07:26 13:22:26 Visit Langston 35242.1.1 ity of [place] 3.104.2.7 [place] .3.223334 Medica l .8 [place] 2019-08-18 2019-08-18 Outpatient Abel VALENTINE [facility] [id number] [id number] Univers 13:00:00 13:00:00 KESHAWN ity of [facility] 2019-08-18 2019-08-18 Jasper Valentine 1.2.840.5 [id number] 747 05490 Univers 00:00:00 00:00:00 Langston 42186.1.1 ity of [place] 3.104.2.7 [place] .3.774185 Medica l .8 [place] 2019-08-11 2019-08-11 Outpatient Abel DOTSON [facility] [id number] Univers 10:45:00 10:45:00 GABE ity of [facility] 2019-08-11 2019-08-11 Orders Doctor 1.2.840.3 [id number] Univers 00:00:00 00:00:00 Only Unassigned, 36472.1.1 ity of [place] 3.104.2.7 [place] .3.652086 Medica l .8 [place] 2019-08-04 2019-08-04 Outpatient SANDRA, [facility] [id number] [place] 00:00:00 00:00:00 JEAN PIERRE 786 Method i 2019-08-01 2019-08-01 Outpatient SANDRA, [facility] 2100 [id number] [place] 00:00:00 00:00:00 JEAN PIERRE 062 Method i 2019-07-26 2019-07-28 Outpatient JULIANNE, [facility] [id number] [id number] [place] 00:00:00 00:00:00 MURALIDHAR 312 [place] 2019-07-25 2019-07-25 Emergency ANMOL, [facility] 064 [id number] 98 [place] 00:00:00 00:00:00 YASIN 764 Method i 2019-07-10 2019-07-10 Jasepr Dick, 1.2.840.0 [id number] 91256 703 [facility] 00:00:00 00:00:00 Rosemary Kumar 68313.1.1 i ty of 3.104.2.7 [place] .3.497991 Medica l .8 [place] 2019-07-02 2019-07-02 Jasper Valentine 1.2.840.2 [id number] 738 33840 Univers 00:00:00 00:00:00 Keshawn 80534.1.1 ity of [place] 3.104.2.7 [place] .3.067708 Medica l .8 [place] 2019-07-01 2019-07-01 Jasper Valentine 1.2.840.1 [id number] 738 27761 Univers 00:00:00 00:00:00 Lang[place] 56844.1.1 ity of [place] 3.104.2.7 [place] .3.619580 Medica l .8 [place] 2019-06-07 2019-06-07 Jasper Valentine 1.2.840.1 [id number] 733 20654 Univers 00:00:00 00:00:00 Keshawn 83132.1.1 ity of [place] 3.104.2.7 [place] .3.888797 Medica l .8 [place] 2019-05-27 2019-05-27 Cherry Valentine 1.2.840.5 [id number] Univers 00:00:00 00:00:00 Lang[place] 16653.1.1 ity of [place] 3.104.2.7 [place] .3.056780 Medica l .8 [place] 2019-05-26 2019-05-26 Orders Doctor 1.2.840.6 [id number] 004 Univers 00:00:00 00:00:00 Only Unassigned, 47450.1.1 ity of [place] 3.104.2.7 [place] .3.934335 Medica l .8 Branch 2019-05-10 2019-05-10 Cherry Dick, 1.2.840.3 [id number] 728 [id number] Univers 00:00:00 00:00:00 Rosemary E 35183.1.1 i ty of 3.104.2.7 [place] .3.778822 Medica l .8 [facility] 2019-05-10 2019-05-10 Jasper Valentine 1.2.840.9 [id number] 728 03837 Univers 00:00:00 00:00:00 Lang[place] 43163.1.1 ity of [place] 3.104.2.7 [place] .3.658559 Medica l .8 [facility] 2019-05-09 2019-05-09 Jasper Dick 1.2.840.7 [id number] 06786 970 Univers 00:00:00 00:00:00 Rosemary E 29100.1.1 i ty of 3.104.2.7 [place] .3.297597 Medica l .8 [facility] 2019-04-12 2019-04-12 Cherry Valentine 1.2.840.9 [id number] 7 [id number] Univers 00:00:00 00:00:00 Lang[place] 60293.1.1 ity of [place] 3.104.2.7 [place] .3.265272 Medica l .8 Branch 2019-04-11 2019-04-11 Jasper Valentine 1.2.840.1 [id number] 723 [id number] Univers 00:00:00 00:00:00 Keshawn 00674.1.1 ity of [place] 3.104.2.7 [place] .3.876952 Medica l .8 Branch 2019-04-10 2019-04-10 Jasper Valentine, 1.2.840.7 [id number] 723 56773 Univers 00:00:00 00:00:00 Langston 67413.1.1 ity of [place] 3.104.2.7 [place] .3.226495 Medica l .8 Branch 2019-04-05 2019-04-05 Jasper Valentine, 1.2.840.6 [id number] 722 75211 Univers 00:00:00 00:00:00 Keshawn 22715.1.1 ity of [facility] 3.104.2.7 [place] .3.336486 Medica l .8 Branch 2019-03-24 2019-03-24 Orders Doctor 1.2.840.0 [id number] 844 Univers 00:00:00 00:00:00 Only Unassigned, 52123.1.1 ity of [place] 3.104.2.7 [place] .3.995931 Medica l .8 Branch 2019-02-24 2019-02-24 Patient Serge [facility] 1.2.152.528 6422 2206 Univers 00:00:00 00:00:00 Secure Msg [place] LEAGUE 350.1.13.10 ity of [facility] 4[place]7.2.[place] 045.6963727 Ut dical AND [address] [facility] 2019-02-24 2019-02-24 Jasper Valentine, 1.2.840.0 [id number] 715 [id number] Univers 00:00:00 00:00:00 Langston 02658.1.1 ity of [facility] 3.104.2.7 [place] .3.995592 Medica l .8 Branch 2019-02-24 2019-02-24 Jasper Valentine, 1.2.840.5 [id number] 715 73248 Univers 00:00:00 00:00:00 Langston 10410.1.1 ity of [facility] 3.104.2.7 [place] .3.046203 Medica l .8 Branch 2019-02-24 2019-02-24 Jasper Valentine, 1.2.840.5 [id number] 715 27552 Univers 00:00:00 00:00:00 Langston 84460.1.1 ity of [place] 3.104.2.7 [place] .3.121664 Medica l .8 Branch 2019-02-24 2019-02-24 Refrafia Valentine, 1.2.840.6 [id number] 715 [id number] Univers 00:00:00 00:00:00 Keshawn 53417.1.1 ity of [place] 3.104.2.7 [place] .3.070678 Medica l .8 Branch 2019-02-23 2019-02-23 [facility], 1.2.840.2 [id number] 715 69241 Univers 00:00:00 00:00:00 Keshawn 61676.1.1 ity of [place] 3.104.2.7 [place] .3.175428 Medica l .8 Branch 2019-02-21 2019-02-21 Telephone Serge, 1.2.840.3 [id number] Univers 00:00:00 00:00:00 Langston 31539.1.1 ity of [place] 3.104.2.7 [place] .3.431993 Medica l .8 [place] 2019-02-18 2019-02-18 Office Serge, 1.2.840.2 [id number] Univers 15:49:00 16:04:00 Visit Keshawn 94584.1.1 ity of [place] 3.104.2.7 [place] .3.287625 Medica l .8 [place] 2019-02-17 2019-02-17 Catering Associate Rosemary Dick.2.840.4 [id number] Univers 09:01:36 16:08:39 Visit Vls-Lab 68995.1.1 ity of 3.104.2.7 [place] .3.578965 Medica l .8 [place] 2019-02-17 2019-02-17 Office Isela Dick.2.840.5 [id number] 969 Univers 09:09:27 10:03:06 Visit Rosemary Heath 52879.1.1 i ty of 3.104.2.7 [place] .3.248703 Medica l .8 Branch 2019-02-11 2019-02-11 Orders Doctor 1.2.840.7 [id number] Univers 00:00:00 00:00:00 Only Unassigned, 74478.1.1 ity of [place] 3.104.2.7 [place] .3.857902 Medica l .8 Branch 2019-02-09 2019-02-09 Refill Serge, 1.2.840.8 [id number] 712 [id number] Univers 00:00:00 00:00:00 Keshawn 10394.1.1 ity of [place] 3.104.2.7 [place] .3.876966 Medica l .8 Branch 2019-01-31 2019-01-31 Patient Serge, [facility] 1.2.348.486 9481 0496 Univers 00:00:00 00:00:00 Secure Msg Keshawn PENA 350.1.13.10 ity of [facility] 4[place]7.2.[place] 627.2340745 Ut dical AND [address] [facility] 2019-01-11 2019-01-11 Office Serge 1.2.840.5 [id number] 703 [id number] Univers 08:45:17 09:00:17 Visit Keshawn 89369.1.1 ity of [facility] 3.104.2.7 [place] .3.490559 Medica l .8 Branch 2019-01-11 2019-01-11 Orders Doctor 1.2.840.4 [id number] Univers 00:00:00 00:00:00 Only Unassigned, 55087.1.1 ity of [place] 3.104.2.7 [place] .3.996194 Medica l .8 Branch 2018-12-21 2018-12-21 Jasper Valentine 1.2.840.1 [id number] 703 69423 Univers 00:00:00 00:00:00 Langston 97599.1.1 ity of [place] 3.104.2.7 [place] .3.363470 Medica l .8 Branch 2018-12-20 2018-12-20 Refrafia Valentine 1.2.840.5 [id number] 703 24744 Univers 00:00:00 00:00:00 Langston 55006.1.1 ity of [facility] 3.104.2.7 [place] .3.428619 Medica l .8 Branch 2018-12-20 2018-12-20 Jasper Valentine, 1.2.840.3 [id number] 703 74277 Univers 00:00:00 00:00:00 Langston 67109.1.1 ity of [place] 3.104.2.7 [place] .3.421599 Medica l .8 Branch 2018-12-14 2018-12-14 Refrafia Dick, 1.2.840.2 [id number] Univers 00:00:00 00:00:00 Rosemary E 35366.1.1 i ty of 3.104.2.7 [place] .3.818018 Medica l .8 Branch 2018-11-23 2018-11-23 Jasper Valentine, 1.2.840.7 [id number] 698 48455 Univers 00:00:00 00:00:00 Keshawn 28339.1.1 ity of [place] 3.104.2.7 [place] .3.707330 Medica l .8 [place] 2018-11-19 2018-11-19 Telephone Team, [facility] 1.2.840.3 [id number] Univers 00:00:00 00:00:00 Health 28351.1.1 ity [place].2.7 [place] .3.662653 Med[place] .8 [place] 2018-11-18 2018-11-18 Telephone Kapil, 1.2.840.5 [id number] 697 [id number] Univers 00:00:00 00:00:00 Rosemary E 80028.1.1 i ty of 3.104.2.7 [place] .3.422860 Medica l .8 [place] Results Test Description Test Time Test Comments Results Result Comments Source IONIZED CALCIUM 2022-01-25 08:35:55 Test Item Value Reference Range Interpretation Comme nts IONIZED CA (test code = 7719829245) 4.70 mg/dL 4.5-5.3 PH SERUM (test code = 0990950518) 7.35-7.45 L QUES Lab Interpretation (test code = 75909-3) [id number] 04:46:36 Test Item Value Reference Range Interpretation Comments TSH (test code = See_Comment [Automated message] [id number]) The system Back& generated this result transmitted ref erence range: 0.45 - 4 .70 mIU/L. The refe rence range was not u sed to interpret this result as normal/abnor mal. Lab Interpretation (test Normal code = 83519-3) [facility], [id number] 04:32:56 Test Item Value Reference Range Interpretation Comments T4 TOTAL (test code = See_Comment [Auto mated [id number]) message] The system which generated this result transmitted reference range : 5.5 - 11.0 mcg/dL. The reference range was not used to interpret this result as normal/abnormal . JEIMY (test code = JEIMY) Normal Range or Expected Values will vary for patients who are on ovulation control drugs or . ? Lab Interpretation Normal (test code = 53152-6) [facility]A1C)2022-01-25 04:20:43 Test Item Value Reference Range Interpretation Comments HGB A1C (test code = 8.2 % 4-5.7 H 4548-4) JEIMY (test code = JEIMY) Reference RangesNormal: <5.7%Prediabetes: 5.7 - 6.4%Diabetes: > 6.5% Lab Interpretation (test Abnormal code = 62915-5) [facility] (51933)2022-01-25 04:18:51 Test Item Value Reference Range Interpretation Comments NA (test code = 142 mmol/L 135-145 0174958215) K (test code = 3.8 mmol/L 3.5-5 9573401199) CL (test code = 103 mmol/L 98-108 5766306869) CO2 TOTAL (test code 30 mmol/L 23-31 = 1843920458) AGAP (test code = 2-16 5272489632) BUN (test code = 14 mg/dL 7-23 4884642897) GLUCOSE (test code = 78 mg/dL 70-110 7666631532) CREATININE (test code 0.79 mg/dL 0.5-1.04 = 4447913896) TOTAL BILI (test code 0.4 mg/dL 0.1-1.1 = 9566914978) CALCIUM (test code = 9.0 mg/dL 8.6-10.6 2541427311) T PROTEIN (test code 7.2 g/dL 6.3-8.2 = 4663091496) ALBUMIN (test code = 4.6 g/dL 3.5-5 4423507930) ALK PHOS (test code = 72 U/L 34-122 3474194895) ALTv (test code = 18 U/L 5-35 2-6) AST(SGOT) (test code 27 U/L 13-40 = 8265396267) eGFR (test code = mL/min/1.73m2 5499482061) JEIMY (test code = JEIMY) Association of [...] or urine or abnormalities in imaging tests). [facility] WITH [id number] 04:04:32 Test Item Value Reference Range Interpretation [...] (test code = 37.9 fL 39-49.9 L 20100-4) RDW-CV (test code = 11.8 % 12-15.5 L 788-0) PLT (test code = See_Comment [Automated 777-3) message] The sy stem which generated this result transmitted reference range : 166 - 358 10*3/ ?L. The reference r estee was not used to interpret this result as normal/abnormal . MPV (test code = 11.4 fL 9.5-12.9 06812-9) NRBC/100 WBC (test See_Comment [Automat ed code = 5694269472) message] The system which generated this result transmitted reference range : 0.0 - 10.0 /100 WBCs. The refer ence range was not u sed to interpret th is result as normal/abnormal . NRBC x10^3 (test code See_Comment [Auto mated = 5232891233) message] The s ystem which generated this result transmitted reference range : 10*3/?L. The reference range was not used to interpret this result as normal/abnormal . GRAN MAT (NEUT) % 50.2 % (test code = 770-8) IMM GRAN % (test code 0.20 % = 5470275544) LYMPH % (test code = 42.4 % 736-9) MONO % (test code = 5.7 % 5905-5) EOS % (test code = 0.7 % 713-8) BASO % (test code = 0.8 % 706-2) GRAN MAT x10^3(ANC) 2.99 10*3/uL 1.88-7.09 (test code = 4364532682) IMM GRAN x10^3 (test 0-0.06 code = 3796845643) LYMPH x10^3 (test code 2.53 10*3/uL 1.32-3.29 = 731-0) MONO x10^3 (test code 0.34 10*3/uL 0.33-0.92 = 742-7) EOS x10^3 (test code = 0.04 10*3/uL 0.03-0.39 711-2) BASO x10^3 (test code 0.05 10*3/uL 0.01-0.07 = 704-7) Lab Interpretation Abnormal (test code = 87893-7) [facility] WITH [id number] 04:04:32 Test Item Value Reference Range Interpretation Comments WBC (test code = See_Comment [Automated 0895-2) message] The sy stem which generated this result transmitted reference range : 4.30 - 11.10 10*3/?L. The reference range was not used to interpret this result as normal/abnormal . RBC (test code = See_Comment [Automated 320-8) message] The sy stem which generated this [...] (test code = 37.9 fL 39-49.9 L 23705-5) RDW-CV (test code = 11.8 % 12-15.5 L 788-0) PLT (test code = See_Comment [Automated 777-3) message] The sy stem which generated this result transmitted reference range : 166 - 358 10*3/ ?L. The reference r estee was not used to interpret this result as normal/abnormal . MPV (test code = 11.4 fL 9.5-12.9 36709-0) NRBC/100 WBC (test See_Comment [Automat ed code = 5254009355) message] The system which generated this result transmitted reference range : 0.0 - 10.0 /100 WBCs. The refer ence range was not u sed to interpret th is result as normal/abnormal . NRBC x10^3 (test code See_Comment [Auto mated = [id number]) message] The s ystem which generated this result transmitted reference range : 10*3/?L. The reference range was not used to interpret this result as normal/abnormal . GRAN MAT (NEUT) % 50.2 % (test code = 770-8) IMM GRAN % (test code 0.20 % = 0397899080) LYMPH % (test code = 42.4 % 736-9) MONO % (test code = 5.7 % 5905-5) EOS % (test code = 0.7 % 713-8) BASO % (test code = 0.8 % 706-2) GRAN MAT x10^3(ANC) 2.99 10*3/uL 1.88-7.09 (test code = 6838508981) IMM GRAN x10^3 (test 0-0.06 code = 1188781884) LYMPH x10^3 (test code 2.53 10*3/uL 1.32-3.29 = 731-0) MONO x10^3 (test code 0.34 10*3/uL 0.33-0.92 = 742-7) EOS x10^3 (test code = 0.04 10*3/uL 0.03-0.39 711-2) BASO x10^3 (test code 0.05 10*3/uL 0.01-0.07 = 704-7) Lab Interpretation Abnormal (test code = 39413-2) [facility] URINALYSIS W SPECIFIC [id number] 19:15:00 Test Item Value Reference Range Interpretation [...] U APPEAR (test code = turbid 3267) [facility] URINALYSIS W SPECIFIC [id number] 19:15:00 Test Item Value Reference Range Interpretation [...] APPEAR (test code = turbid 3267) [facility]
[2022-07-09] MEDS ORDERED: INSULIN -REGULAR HUMAN 50 UNIT/0.5 ML ML ONE (21:25)
[2022-07-09] MEDS ORDERED: Ringers Lactate 1,000 ML IV ONE (21:27)
[2022-07-09 21:29] LABS: Absolute Lymphocytes (CBC) 1.5 K/uL (0.7-4.9); Hematocrit 43.1 % (36.0-45.0); Lymphocytes % 29.4 % (15.3-44.8); MCV 86.5 fL (80-100); MPV 9.1 fL (7.6-11.3); RBC Red Blood Cell Count 4.98 M/uL (3.86-4.86)
[2022-07-09 21:45] LABS: Albumin 3.9 g/dL (3.4-5.0); Bilirubin Total 0.2 mg/dL (0.2-1.0); Protein, Total 7.4 g/dL (6.4-8.2)
--- NOTE | 2022-07-09 22:48 | RAD REPORT ---
EXAM DESCRIPTION: US - Transvaginal Study Probe - 07/09/2022 10:37 pm CLINICAL HISTORY: Vaginal bleeding COMPARISON: none FINDINGS: The uterus is retroverted. The uterus measures 8 x 4 x 4 centimeters cm. A fibroid is not seen. Endometrial stripe measures 1 centimeter The endometrial stripe measures 3 centimeter right ovarian cyst. Flow is present in the right ovary Left ovary not seen secondary to overlying bowel gas The right and left adnexa unremarkable No significant free fluid is seen. IMPRESSION: 3 centimeter right ovarian cyst without significant free fluid
--- NOTE | 2022-07-09 23:19 | ER ---
Nurse's Notes [facility] Name: Pamela Richter Age: 41 yrs Sex: Female : 1980 Arrival Date: 07/09/2022 Time: 18:45 Bed 17 Private MD: Diagnosis: Abnormal uterine and vaginal bleeding, unspecified;Other ovarian cysts-right Presentation: 07/09 19:08 Chief complaint: Patient states: Out of her long acting insulin for 3 days so her sugar ll1 is running 300-400's. Heavy vaginal bleeding began last night. Coronavirus screen: Vaccine status: Patient reports receiving the 2nd dose of the covid vaccine. Client denies travel out of the [place] in the last 14 days. At this time, the client does not indicate any symptoms associated with coronavirus-19. Ebola Screen: Patient denies travel to an Ebola-affected area in the 21 days before illness onset. Initial Sepsis Screen: Does the patient meet any 2 criteria? HR > 90 bpm. No. Patient's initial sepsis screen is negative. Does the patient have a suspected source of infection? No. Patient's initial sepsis screen is negative. Risk Assessment: Do you want to hurt yourself or someone else? Patient reports no desire to harm self or others. Onset of symptoms was July 07, 2022. 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 - Social history:: Smoking status: Patient reports the use of cigarette tobacco products, smokes one-half pack cigarettes per day. Screenin:50 Abuse screen: Denies threats or abuse. Denies injuries from another. Nutritional ha1 screening: No deficits noted. Tuberculosis screening: No symptoms or risk factors identified. 20:[address] [facility] ED Fall Risk Assessment (Adult) History of falling in the last 3 months, ha1 including since admission No falls in past 3 months (0 pts) Confusion or Disorientation No (0 pts) Intoxicated or Sedated No (0 pts) Impaired Gait No (0 pts) Mobility Assist Device Used No (0 pt) Altered Elimination No (0 pt) Score/Fall Risk Level 0 - 2 = Low Risk. Assessment: 19:50 General: Appears comfortable, Behavior is calm, cooperative. Pain:. Neuro: Level of ha1 Consciousness is awake, alert, obeys commands, Oriented to person, place, time, situation. Cardiovascular: Capillary refill < 3 seconds Patient's skin is warm and dry. Respiratory: Airway is patent Respiratory effort is even, unlabored, Respiratory pattern is regular, symmetrical. GI: No signs and/or symptoms were reported involving the gastrointestinal system. : Reports vaginal bleeding that is bright red, heavy flow. EENT: No deficits noted. No signs and/or symptoms were reported regarding the EENT system. Derm: Skin is pink, warm \T\ dry. Musculoskeletal: Circulation, motion, and sensation intact. Range of motion: intact in all extremities. 20:50 Reassessment: Patient and/or family updated on plan of care and expected duration. Pain ha1 level reassessed. Patient is alert, oriented x 3, equal unlabored respirations, skin warm/dry/pink. Patient denies pain at this time. 21:50 Reassessment: Patient and/or family updated on plan of care and expected duration. Pain ha1 level reassessed. Patient is alert, oriented x 3, equal unlabored respirations, skin warm/dry/pink. 22:50 Reassessment: Patient and/or family updated on plan of care and expected duration. Pain ha1 level reassessed. Patient is alert, oriented x 3, equal unlabored respirations, skin warm/dry/pink. Patient denies pain at this time. Vital Signs: 19:08 BP 176 / 110; Pulse 122; Resp 18; Temp 98.1; Pulse Ox 97% ; Weight 70.31 kg; Height 5 ll1 ft. 7 in. (170.18 cm); Pain 5/10; 19:50 BP 142 / 95; Pulse 95; Resp 16 S; Pulse Ox 100% on R/A; ha1 20:50 BP 137 / 90; Pulse 88; Resp 18 S; Pulse Ox 98% on R/A; ha1 21:50 BP 137 / 94; Pulse 95; Resp 16; Pulse Ox 100% on R/A; ha1 22:50 BP 147 / 88; Pulse 91; Resp 16 S; Pulse Ox 97% on R/A; ha1 19:08 Body Mass Index 24.28 (70.31 kg, 170.18 cm) ll1 ED Course: 18:45 Patient arrived in ED. as 19:09 Triage completed. ll1 19:10 Arm band placed on. ll1 20:02 Caitlin Coello RN is Primary Nurse. ha1 20:06 Rashaad Pittman PA is PHCP. [facility] 20:06 Mauricio Vaughn MD is Attending Physician. jm 20:32 CMP Sent. ha1 20:32 CBC with Diff Sent. ha1 20:32 Type And Screen Sent. ha1 20:50 Patient has correct armband on for positive identification. Placed in gown. Bed in low ha1 position. Call light in reach. Side rails up X 1. Adult w/ patient. 21:13 PHCP role handed off by Rashaad Pittman PA cp 21:13 Orion Trevino PA is PHCP. cp 22:39 US Transvaginal Study (Probe) In Process Unspecified. EDMS 23:36 Assist provider with pelvic exam: Set up pelvic tray. Performed by Orion PORTER ha1 Patient tolerated well. 23:37 IV discontinued, intact, bleeding controlled, No redness/swelling at site. Pressure ha1 dressing applied. Administered Medications: 21:15 Drug: Lactated Ringers Solution 1000 ml Route: IV; Rate: 1000 bolus; Site: right ha1 forearm; 21:16 Drug: Insulin Regular Human 10 units {Co-Signature: ll3 (Preeti Alonzo RN).} Route: ha1 IVP; Site: right forearm; Medication: 23:37 VIS not applicable for this client. ha1 Outcome: 23:18 Discharge ordered by . cp 23:37 Discharged to home ambulatory, with family. ha1 23:37 Condition: stable 23:37 Discharge instructions given to patient, family, Instructed on discharge instructions, follow up and referral plans. medication usage, Demonstrated understanding of instructions, follow-up care, medications, Prescriptions given X 1. 23:38 Patient left the ED. ha1 Signatures: Dispatcher [employer] EDMS Rashaad Pittman PA PA jmm Martinez, Amelia as Orion Trevino PA PA cp Lewis, Lynsay, RN RN 1 Caitlin Coello, RN RN ha1 Preeti Alonzo RN ll3
--- NOTE | 2022-07-09 23:19 | EDPHYS ---
Physician Documentation [facility] Name: Pamela Richter Age: 41 yrs Sex: Female : 1980 Arrival Date: 07/09/2022 Time: 18:45 Bed 17 Private MD: ED Physician Mauricio Vaughn HPI: 07/09 21:05 This 41 yrs old Female presents to ER via Ambulatory with complaints of High Blood cp Sugar, Vaginal Bleeding. 21:05 The patient or guardian reports hyperglycemia, that was potentially precipitated by ran cp out of long acting insulin 3 days ago. Associated signs and symptoms: Pertinent negatives: diarrhea, nausea, vomiting, fever. Patient also c/o heavy vaginal bleeding since last night. Reports last regular menstrual cycle was 4 days ago. 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 - Social history:: Smoking status: Patient reports the use of cigarette tobacco products, smokes one-half pack cigarettes per day. ROS: 21:10 Constitutional: Negative for body aches, chills, fever, poor PO intake. cp 21:10 Eyes: Negative for injury, pain, redness, and discharge. cp 21:10 ENT: Negative for drainage from ear(s), ear pain, sore throat, difficulty swallowing, difficulty handling secretions. 21:10 Cardiovascular: Negative for chest pain, palpitations. 21:10 Respiratory: Negative for cough, shortness of breath, wheezing. 21:10 Abdomen/GI: Negative for abdominal pain, vomiting, diarrhea, constipation. 21:10 : Positive for vaginal bleeding, Negative for urinary symptoms. 21:10 Neuro: Negative for altered mental status, dizziness, headache, syncope, weakness. 21:10 All other systems are negative. Exam: 21:15 Constitutional: The patient appears in no acute distress, alert, awake, comfortable, cp non-diaphoretic, non-toxic, well developed, well nourished. 21:15 Head/Face: Normocephalic, atraumatic. cp 21:15 Eyes: Periorbital structures: appear normal, Conjunctiva: normal, no exudate, no injection, Sclera: no appreciated abnormality, Lids and lashes: appear normal, bilaterally. 21:15 ENT: External ear(s): are unremarkable, Nose: is normal, Mouth: Lips: moist, Oral mucosa: pink and intact, moist, Posterior pharynx: is normal, airway is patent, no erythema, no exudate. 21:15 Chest/axilla: Inspection: normal. 21:15 Cardiovascular: Rate: normal, Rhythm: regular, Edema: is not appreciated, JVD: is not appreciated. 21:15 Respiratory: the patient does not display signs of respiratory distress, Respirations: normal, no use of accessory muscles, no retractions, labored breathing, is not present, Breath sounds: are clear throughout, no decreased breath sounds, no stridor, no wheezing. 21:15 Abdomen/GI: Inspection: abdomen appears normal, Palpation: abdomen is soft and non-tender, in all quadrants. 21:15 Back: pain, is absent, ROM is normal. 23:17 : Pelvic Exam: External exam: is normal, Speculum exam: moderate bleeding, blood cp clots in vaginal vault, no cervicitis, os that is closed, bimanual exam reveals no cervical motion tenderness, no uterine tenderness, no adnexal tenderness on right, no adnexal tenderness on left, the nurse was present for the exam. Vital Signs: 19:08 BP 176 / 110; Pulse 122; Resp 18; Temp 98.1; Pulse Ox 97% ; Weight 70.31 kg; Height 5 ll1 ft. 7 in. (170.18 cm); Pain 5/10; 19:50 BP 142 / 95; Pulse 95; Resp 16 S; Pulse Ox 100% on R/A; ha1 20:50 BP 137 / 90; Pulse 88; Resp 18 S; Pulse Ox 98% on R/A; ha1 21:50 BP 137 / 94; Pulse 95; Resp 16; Pulse Ox 100% on R/A; ha1 22:50 BP 147 / 88; Pulse 91; Resp 16 S; Pulse Ox 97% on R/A; ha1 19:08 Body Mass Index 24.28 (70.31 kg, 170.18 cm) ll1 MDM: 20:07 Patient medically screened. justin 21:00 Differential diagnosis: diabetes insipidus, DKA, hyperglycemia, hyperthyroidism, anemia. 23:18 Data reviewed: vital signs, nurses notes, lab test result(s), radiologic studies, cp ultrasound. 23:18 Consideration of Admission/Observation Escalation of care including cp admission/observation considered. I considered the following discharge prescriptions or medication management in the emergency department Medications were administered in the Emergency Department. See MAR. Test considered but Not performed: CT: abdomen/pelvis. Care significantly affected by the following chronic conditions: Diabetes. Counseling: I had a detailed discussion with the patient and/or guardian regarding: the historical points, exam findings, and any diagnostic results supporting the discharge/admit diagnosis, lab results, radiology results, the need for outpatient follow up, a family practitioner, an OB/Gyne specialist, to return to the emergency department if symptoms worsen or persist or if there are any questions or concerns that arise at home. Response to treatment: the patient's symptoms have markedly improved after treatment, and as a result, I will discharge patient. 07/09 19:23 Order name: Glucose, Ancillary Testing; Complete Time: 20:06 [facility] 07/09 20:10 Order name: CBC with Diff; Complete Time: 21:43 [facility] 07/09 21:43 Interpretation: Normal except: RBC 4.98. 07/09 20:10 Order name: CMP; Complete Time: 21:50 [facility] 07/09 21:50 Interpretation: Normal except: NA 133; GLUC 346; CRE 1.03; GFR 69. 07/09 20:44 Order name: Glucose, Ancillary Testing; Complete Time: 21:43 [facility] 07/09 23:19 Order name: Glucose, Ancillary Testing [facility] 07/09 20:10 Order name: Saline Lock [facility] 07/09 20:11 Order name: Pelvic Exam Setup; Complete Time: 20:44 [facility] 07/09 21:51 Order name: US Transvaginal Study (Probe); Complete Time: 23:04 cp Administered Medications: 21:15 Drug: Lactated Ringers Solution 1000 ml Route: IV; Rate: 1000 bolus; Site: right ha1 forearm; 21:16 Drug: Insulin Regular Human 10 units {Co-Signature: [email or web address] (Preeti Alonzo RN).} Route: ha1 IVP; Site: right forearm; Disposition: 07/10 00:54 Co-signature as Attending Physician, Mauricio Vaughn MD I reviewed the patient's care rt provided by the Advanced Practice Provider and agree with the diagnosis and treatment plan. Disposition Summary: 07/09/22 23:18 Discharge Ordered Location: Home cp Problem: new cp Symptoms: are unchanged cp Condition: Stable cp Diagnosis - Abnormal uterine and vaginal bleeding, unspecified cp - Other ovarian cysts - right cp Followup: cp - With: Private Physician - When: 2 - 3 days - Reason: Recheck today's complaints Discharge Instructions: - Discharge Summary Sheet cp - Abnormal Uterine Bleeding cp - Ovarian Cyst cp Forms: - Medication Reconciliation Form cp - Thank You Letter cp - Antibiotic Education cp - Prescription Opioid Use cp Prescriptions: - medroxyprogesterone 5 mg Oral tablet - take 1 tablet by ORAL route once daily for 7 days; 7 tablet; Refills: 0, cp Product Selection Permitted Signatures: Dispatcher [employer] EDMS Rashaad Pittman PA PA jmm Page, Corey, PA PA cp Lewis, Lynsay, RN RN ll1 Caitlin Coello RN RN ha1 Mauricio Vaughn MD MD rt rPeeti Alonzo RN ll3
[2022-07-09 23:43] VITALS: TEMP 98.1
[2022-07-09 23:47] VITALS: BP 147/88; O2SAT 97
== END 2022-07-09 23:38 | disposition home or self-care (01) ==
LOC: ER 18:44
DX: N93.9 Abnormal uterine and vaginal bleeding, unspecified (principal); N83.291 Other ovarian cyst, right side; I10 Essential (primary) hypertension; F17.210 Nicotine dependence, cigarettes, uncomplicated
CPT/HCPCS: 85025; 36415; 82947 ×3; 80053; 76830; J1815; J7120

== ENCOUNTER 2022-07-11 22:08 | Emergency (ER) | payer BC ==
--- OUTSIDE RECORDS SUMMARY | 2022-07-11 22:41 | XMS REPORT | Continuity of Care Document ---
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 [id number] 1mg Take 1 Un [facility] (ATIVAN) 1 0-25 tablet by [facility] mg tablet 00:00: mouth 2 (two) Medical times Branch daily as needed for Anxiety or Agitation. LORazepam 2021-06 Yes [id number] 1mg Take 1 Un [facility] (ATIVAN) 1 0-25 tablet by [facility] mg tablet 00:00: mouth 2 (two) Medical times Branch daily as needed for Anxiety or Agitation. LORazepam 2021-06 Yes [id number] 1mg Take 1 Un [facility] (ATIVAN) 1 0-25 tablet by [facility] mg tablet 00:00: mouth 2 (two) Medical times Branch daily as needed for Anxiety or Agitation. LORazepam 2021-06 Yes [id number] 1mg Take 1 Un [facility] (ATIVAN) 1 0-25 tablet by [facility] mg tablet 00:00: mouth 2 (two) Medical times Branch daily as needed for Anxiety or Agitation. LORazepam 2021-06 Yes [id number] 1mg Take 1 Un [facility] (ATIVAN) 1 0-25 tablet by [facility] mg tablet 00:00: mouth 2 (two) Medical times Branch daily as needed for Anxiety or Agitation. LORazepam 2021-06 Yes [id number] 1mg Take 1 Un [facility] (ATIVAN) 1 0-25 tablet by [facility] mg tablet 00:00: mouth 2 (two) Medical times Branch daily as needed for Anxiety or Agitation. LORazepam 2021-06 Yes [id number] 1mg Take 1 Un [facility] (ATIVAN) 1 0-25 tablet by [facility] mg tablet 00:00: mouth (two) Medical times Branch daily as needed for Anxiety or Agitation. LORazepam 2021-06 Yes [id number] 1mg Take 1 Un [facility] (ATIVAN) 1 0-25 tablet by [facility] mg tablet 00:00: mouth (two) Medical times Branch daily as needed for Anxiety or Agitation. LORazepam 2021-06 Yes [id number] 1mg Take 1 Un [facility] (ATIVAN) 1 0-25 tablet by [facility] mg tablet 00:00: mouth (two) Medical times Branch daily as needed for Anxiety or Agitation. LORazepam 2021-06 Yes [id number] 1mg Take 1 Un [facility] (ATIVAN) 1 0-25 tablet by [facility] mg tablet 00:00: mouth 2 (two) Medical times Branch daily as needed for Anxiety or Agitation. LORazepam 2021-06 Yes [id number] 1mg Take 1 Un [facility] (ATIVAN) 1 0-25 tablet by [facility] mg tablet 00:00: mouth 2 (two) Medical times Branch daily as needed for Anxiety or Agitation. LORazepam 2021-06 Yes [id number] 1mg Take 1 Un [facility] (ATIVAN) 1 0-25 tablet by [facility] of mg tablet 00:00: mouth 2 [place] 00 (two) Medical times Branch daily as needed for Anxiety or Agitation. insulin 2021-06- No [id number] inject 20 [facility] glargine 0-25 11-23 Units [facility] of (L[place] 00:00: [place] U-100 00 :00 skin twice Medical INSULIN) a day. Branch 100 unit/mL injection insulin 2021-06- No [id number] inject 20 [facility] glargine 0-25 11-23 Units [facility] of (LANTUS 00:00: [place] U-100 00 :00 skin twice Medical INSULIN) a day. Branch 100 unit/mL injection losartan 2021-06 Yes [id number] 25mg Take 1 [facility] mg tablet 0-24 tablet by it[facility] o f 00:00: mouth in [place] 00 the Medical morning. Branch atorvastati 2021-06 Yes [id number] 20mg Take 1 [facility] n 20 mg 0-24 tablet by [facility] of tablet 00:00: mouth at [place] 00 bedtime. Medical Branch losartan 2021-06 Yes [id number] 25mg Take 1 [facility] mg tablet 0-24 tablet by [facility] o f 00:00: mouth in [place] the Medical morning. Branch atorvastati 2021-06 Yes [id number] 20mg Take 1 [facility] n 20 mg 0-24 tablet by [facility] of tablet 00:00: mouth at [place] 00 bedtime. Medical Branch losartan 2021-06 Yes [id number] 25mg Take 1 [facility] mg tablet 0-24 tablet by [facility] o f 00:00: mouth in [place] the Medical morning. Branch atorvastati 2021-06 Yes [id number] 20mg Take 1 [facility] n 20 mg 0-24 tablet by [facility] of tablet 00:00: mouth at [place] 00 bedtime. Medical Branch losartan 2021-06 Yes [id number] 25mg Take 1 [facility] mg tablet 0-24 tablet by [facility] o f 00:00: mouth in [place] 00 the Medical morning. Branch atorvastati 2021-06 Yes [id number] 20mg Take 1 [facility] n 20 mg 0-24 tablet by [facility] of tablet 00:00: mouth at [place] 00 bedtime. Medical Branch losartan 2021-06 Yes [id number] 25mg Take 1 [facility] mg tablet 0-24 tablet by [facility] o f 00:00: mouth in [place] the Medical morning. Branch atorvastati 2021-06 Yes [id number] 20mg Take 1 [facility] n 20 mg 0-24 tablet by [facility] of tablet 00:00: mouth at [place] 00 bedtime. Medical Branch losartan 25 2021-06 Yes [id number] 25mg Take 1 [facility] mg tablet 0-24 tablet by [facility] o f 00:00: mouth in [place] the Medical morning. Branch atorvastati 2021-06 Yes [id number] 20mg Take 1 [facility] n 20 mg 0-24 tablet by [facility] of tablet 00:00: mouth at [place] 00 bedtime. Medical Branch losartan 25 2021-06 Yes [id number] 25mg Take 1 [facility] mg tablet 0-24 tablet by [facility] o f 00:00: mouth in [place] the Medical morning. Branch atorvastati 2021-06 Yes [id number] 20mg Take 1 [facility] n 20 mg 0-24 tablet by [facility] of tablet 00:00: mouth at [place] 00 bedtime. Medical Branch losartan 25 2021-06 Yes [id number] 25mg Take 1 [facility] mg tablet 0-24 tablet by [facility] o f 00:00: mouth in [place] the Medical morning. Branch atorvastati 2021-06 Yes [id number] 20mg Take 1 [facility] n 20 mg 0-24 tablet by [facility] of tablet 00:00: mouth at [place] 00 bedtime. Medical Branch losartan 25 2021-06 Yes [id number] 25mg Take 1 [facility] mg tablet 0-24 tablet by [facility] o f 00:00: mouth in [place] the Medical morning. Branch atorvastati 2021-06 Yes [id number] 20mg Take 1 [facility] n 20 mg 0-24 tablet by [facility] of tablet 00:00: mouth at [place] 00 bedtime. Medical Branch losartan 25 2021-06 Yes [id number] 25mg Take 1 [facility] mg tablet 0-24 tablet by [facility] o f 00:00: mouth in [place] the Medical morning. Branch atorvastati 2021-06 Yes [id number] 20mg Take 1 [facility] n 20 mg 0-24 tablet by [facility] of tablet 00:00: mouth at [place] 00 bedtime. Medical Branch losartan 25 2021-06 Yes [id number] 25mg Take 1 [facility] mg tablet 0-24 tablet by [facility] o f 00:00: mouth in [place] 00 the Medical morning. Branch atorvastati 2021-06 Yes [id number] 20mg Take 1 [facility] n 20 mg 0-24 tablet by [facility] of tablet 00:00: mouth at [place] 00 bedtime. Medical Branch losartan 25 2021-06 Yes [id number] 25mg Take 1 [facility] mg tablet 0-24 tablet by [facility] o f 00:00: mouth in [place] the Medical morning. Branch atorvastati 2021-06 Yes [id number] 20mg Take 1 [facility] n 20 mg 0-24 tablet by [facility] of tablet 00:00: mouth at [place] 00 bedtime. Medical Branch losartan 25 2021-06 Yes [id number] 25mg Take 1 [facility] mg tablet 0-24 tablet by [facility] o f 00:00: mouth in [place] the Medical morning. Branch atorvastati 2021-06 Yes [id number] 20mg Take 1 [facility] n 20 mg 0-24 tablet by [facility] of tablet 00:00: mouth at [place] 00 bedtime. Medical Branch losartan 25 2021-06 Yes [id number] 25mg Take 1 [facility] mg tablet 0-24 tablet by [facility] o f 00:00: mouth in [place] the Medical morning. Branch atorvastati 2021-06 Yes [id number] 20mg Take 1 [facility] n 20 mg 0-24 tablet by [facility] of tablet 00:00: mouth at [place] [address] bedtime. Medical Branch losartan 25 2021-06 Yes [id number] 25mg Take 1 [facility] mg tablet 0-24 tablet by [facility] o f 00:00: mouth in [place] the Medical morning. Branch atorvastati 2021-06 Yes [id number] 20mg Take 1 [facility] n 20 mg 0-24 tablet by [facility] of tablet 00:00: mouth at [place] 00 bedtime. Medical Branch losartan 25 2021-06 Yes [id number] 25mg Take 1 [facility] mg tablet 0-24 tablet by [facility] o f 00:00: mouth in [place] the Medical morning. Branch atorvastati 2021-06 Yes [id number] 20mg Take 1 [facility] n 20 mg 0-24 tablet by [facility] of tablet 00:00: mouth at [place] [address] bedtime. Medical Branch losartan 25 2021-06 Yes [id number] 25mg Take 1 [facility] mg tablet 0-24 tablet by [facility] o f 00:00: mouth in [place] 00 the Medical morning. Branch atorvastati 2021-06 Yes [id number] 20mg Take 1 [facility] n 20 mg 0-24 tablet by [facility] of tablet 00:00: mouth at [place] 00 bedtime. Medical Branch losartan 25 2021-06 Yes [id number] 25mg Take 1 [facility] mg tablet 0-24 tablet by it[facility] o f 00:00: mouth in [place] the Medical morning. Branch atorvastati 2021-06 Yes [id number] 20mg Take 1 [facility] n 20 mg 0-24 tablet by [facility] of tablet 00:00: mouth at [place] 00 bedtime. Medical Branch losartan 25 2021-06 Yes [id number] 25mg Take 1 [facility] mg tablet 0-24 tablet by ity o f 00:00: mouth in [place] the Medical morning. Branch atorvastati 2021-06 Yes [id number] 20mg Take 1 [facility] n 20 mg 0-24 tablet by [facility] of tablet 00:00: mouth at [place] 00 bedtime. Medical Branch losartan 25 2021-06 Yes [id number] 25mg Take 1 [facility] mg tablet 0-24 tablet by ity o f 00:00: mouth in [place] the Medical morning. Branch atorvastati 2021-06 Yes [id number] 20mg Take 1 [facility] n 20 mg 0-24 tablet by [facility] of tablet 00:00: mouth at [place] 00 bedtime. Medical Branch losartan 25 2021-06 Yes [id number] 25mg Take 1 [facility] mg tablet 0-24 tablet by ity o f 00:00: mouth in [place] the Medical morning. Branch atorvastati 2021-06 Yes [id number] 20mg Take 1 [facility] n 20 mg 0-24 tablet by [facility] of tablet 00:00: mouth at [place] 00 bedtime. Medical Branch losartan 25 2021-06 Yes [id number] 25mg Take 1 [facility] mg tablet 0-24 tablet by ity o f 00:00: mouth in [place] 00 the Medical morning. Branch atorvastati 2021-06 Yes [id number] 20mg Take 1 [facility] n 20 mg 0-24 tablet by [facility] of tablet 00:00: mouth at [place] 00 bedtime. Medical Branch losartan 25 2021-06 Yes [id number] 25mg Take 1 [facility] mg tablet 0-24 tablet by ity o f 00:00: mouth in [place] 00 the Medical morning. Branch atorvastati 2021-06 Yes [id number] 20mg Take 1 [facility] n 20 mg 0-24 tablet by [facility] of tablet 00:00: mouth at [place] 00 bedtime. Medical Branch losartan 25 2021-06 Yes [id number] 25mg Take 1 [facility] mg tablet 0-24 tablet by ity o f 00:00: mouth in [place] the Medical morning. Branch atorvastati 2021-06 Yes [id number] 20mg Take 1 [facility] n 20 mg 0-24 tablet by [facility] of tablet 00:00: mouth at [place] 00 bedtime. Medical Branch losartan 25 2021-06 Yes [id number] 25mg Take 1 [facility] mg tablet 0-24 tablet by ity o f 00:00: mouth in [place] the Medical morning. Branch atorvastati 2021-06 Yes [id number] 20mg Take 1 [facility] n 20 mg 0-24 tablet by [facility] of tablet 00:00: mouth at [place] 00 bedtime. Medical Branch losartan 25 2021-06 Yes [id number] 25mg Take 1 [facility] mg tablet 0-24 tablet by ity o f 00:00: mouth in [place] the Medical morning. Branch atorvastati 2021-06 Yes [id number] 20mg Take 1 [facility] n 20 mg 0-24 tablet by [facility] of tablet 00:00: mouth at [place] 00 bedtime. Medical Branch losartan 25 2021-06 Yes [id number] 25mg Take 1 [facility] mg tablet 0-24 tablet by ity o f 00:00: mouth in [place] the Medical morning. Branch atorvastati 2021-06 Yes [id number] 20mg Take 1 [facility] n 20 mg 0-24 tablet by [facility] of tablet 00:00: mouth at [place] 00 bedtime. Medical Branch losartan 25 2021-06 Yes [id number] 25mg Take 1 [facility] mg tablet 0-24 tablet by ity o f 00:00: mouth in [place] the Medical morning. Branch atorvastati 2021-06 Yes [id number] 20mg Take 1 [facility] n 20 mg 0-24 tablet by [facility] of tablet 00:00: mouth at [place] 00 bedtime. Medical Branch losartan 25 2021-06 Yes [id number] 25mg Take 1 [facility] mg tablet 0-24 tablet by ity o f 00:00: mouth in [place] the Medical morning. Branch atorvastati 2021-06 Yes [id number] 20mg Take 1 [facility] n 20 mg 0-24 tablet by [facility] of tablet 00:00: mouth at [place] 00 bedtime. Medical Branch losartan 25 2021-06 Yes [id number] 25mg Take 1 [facility] mg tablet 0-24 tablet by ity o f 00:00: mouth in [place] the Medical morning. Branch atorvastati 2021-06 Yes [id number] 20mg Take 1 [facility] n 20 mg 0-24 tablet by [facility] of tablet 00:00: mouth at [place] 00 bedtime. Medical Branch losartan 25 2021-06 Yes [id number] 25mg Take 1 [facility] mg tablet 0-24 tablet by ity o f 00:00: mouth in [place] the Medical morning. Branch atorvastati 2021-06 Yes [id number] 20mg Take 1 [facility] n 20 mg 0-24 tablet by [facility] of tablet 00:00: mouth at [place] 00 bedtime. Medical Branch lamoTRIgine 2021-06 Yes [id number] 200mg Take 2 [facility] 100 mg 0-11 tablets by [facility] of tablet 00:00: mouth in [place] the Medical morning. Branch LORazepam 2021-06 Yes [id number] 1mg Take 1 Un [facility] (ATIVAN) 1 0-11 tablet by [facility] of mg tablet 00:00: mouth 2 [place] (two) [facility] times [facility] daily as needed for Anxiety or Agitation. prazosin 2021-06 Yes [id number] 1mg Take 1 [facility] mg capsule 0-11 capsule by [facility] of 00:00: mouth at [place] 00 bedtime. Medical Branch lamoTRIgine 2021-06 Yes [id number] 200mg Take 2 [facility] 100 mg 0-11 tablets by [facility] of tablet 00:00: mouth in [place] the Medical morning. Branch LORazepam 2021-06 Yes [id number] 1mg Take 1 Un [facility] (ATIVAN) 1 0-11 tablet by [facility] of mg tablet 00:00: mouth 2 [place] (two) Medical times [facility] daily as needed for Anxiety or Agitation. prazosin 2021-06 Yes [id number] 1mg Take 1 [facility] nivers mg capsule 0-11 capsule by [facility] of 00:00: mouth at [place] [address] bedtime. Medical Branch lamoTRIgine 2021-06 Yes [id number] 200mg Take 2 [facility] 100 mg 0-11 tablets by [facility] of tablet 00:00: mouth in [place] 00 the Medical morning. Branch LORazepam 2021-06 Yes [id number] 1mg Take 1 Un [facility] (ATIVAN) 1 0-11 tablet by [facility] of mg tablet 00:00: mouth 2 [place] 00 (two) Medical times [facility] daily as needed for Anxiety or Agitation. prazosin 2021-06 Yes [id number] 1mg Take 1 [facility] n[facility] mg capsule 0-11 capsule by [facility] of 00:00: mouth at [place] [address] bedtime. Medical Branch lamoTRIgine 2021-06 Yes [id number] 200mg Take 2 [facility] 100 mg 0-11 tablets by [facility] of tablet 00:00: mouth in [place] the Medical morning. Branch LORazepam 2021-06 Yes [id number] 1mg Take 1 Un [facility] (ATIVAN) 1 0-11 tablet by [facility] of mg tablet 00:00: mouth 2 [place] (two) Medical [facility] daily as needed for Anxiety or Agitation. prazosin 2021-06 Yes [id number] 1mg Take 1 U nivers mg capsule 0-11 capsule by ity of 00:00: mouth at [place] [address] bedtime. Medical Branch lamoTRIgine 2021-06 Yes [id number] 200mg Take 2 [facility] 100 mg 0-11 tablets by ity of tablet 00:00: mouth in [place] the Medical morning. Branch prazosin 2021-06 Yes [id number] 1mg Take 1 U nivers mg capsule 0-11 capsule by ity of 00:00: mouth at [place] [address] bedtime. Medical Branch lamoTRIgine 2021-06 Yes [id number] 200mg Take 2 [facility] 100 mg 0-11 tablets by it[facility] of tablet 00:00: mouth in [place] 00 the Medical morning. Branch prazosin 2021-06 Yes [id number] 1mg Take 1 [facility] nivers mg capsule 0-11 capsule by it[facility] of 00:00: mouth at [place] [address] bedtime. Medical Branch lamoTRIgine 2021-06 Yes [id number] 200mg Take 2 [facility] 100 mg 0-11 tablets by ity of tablet 00:00: mouth in [place] 00 the Medical morning. Branch prazosin 2021-06 Yes [id number] 1mg Take 1 U nivers mg capsule 0-11 capsule by ity of 00:00: mouth at [place] 00 bedtime. Medical Branch lamoTRIgine 2021-06 Yes [id number] 200mg Take 2 [facility] 100 mg 0-11 tablets by it[facility] of tablet 00:00: mouth in [place] the morning. Branch prazosin 2021-06 Yes [id number] 1mg Take 1 [facility] nivers mg capsule 0-11 capsule by ity of 00:00: mouth at [place] [address] bedtime. Medical Branch lamoTRIgine 2021-06 Yes [id number] 200mg Take 2 [facility] 100 mg 0-11 tablets by it[facility] of tablet 00:00: mouth in [place] the Medical morning. Branch prazosin 2021-06 Yes [id number] 1mg Take 1 [facility] nivers mg capsule 0-11 capsule by ity of 00:00: mouth at [place] [address] bedtime. Medical Branch lamoTRIgine 2021-06 Yes [id number] 200mg Take 2 [facility] 100 mg 0-11 tablets by it[facility] of tablet 00:00: mouth in [place] the morning. Branch prazosin 2021-06 Yes [id number] 1mg Take 1 U nivers mg capsule 0-11 capsule by ity of 00:00: mouth at [place] [address] bedtime. [facility] Branch lamoTRIgine 2021-06 Yes [id number] 200mg Take 2 [facility] 100 mg 0-11 tablets by ity of tablet 00:00: mouth in [place] the morning. Branch prazosin 2021-06 Yes [id number] 1mg Take 1 U nivers mg capsule 0-11 capsule by ity of 00:00: mouth at [place] [address] bedtime. Medical Branch lamoTRIgine 2021-06 Yes [id number] 200mg Take 2 [facility] 100 mg 0-11 tablets by ity of tablet 00:00: mouth in [place] the morning. Branch prazosin 2021-06 Yes [id number] 1mg Take 1 U nivers mg capsule 0-11 capsule by ity of 00:00: mouth at [place] [address] bedtime. Medical Branch lamoTRIgine 2021-06 Yes [id number] 200mg Take 2 [facility] 100 mg 0-11 tablets by ity of tablet 00:00: mouth in [place] the Medical morning. Branch prazosin 2021-06 Yes [id number] 1mg Take 1 [facility] nivers mg capsule 0-11 capsule by ity of 00:00: mouth at [place] 00 bedtime. Medical Branch lamoTRIgine 2021-06 Yes [id number] 200mg Take 2 [facility] 100 mg 0-11 tablets by ity of tablet 00:00: mouth in [place] the morning. Branch prazosin 2021-06 Yes [id number] 1mg Take 1 [facility] nivers mg capsule 0-11 capsule by ity of 00:00: mouth at [place] [address] bedtime. Medical Branch lamoTRIgine 2021-06 Yes [id number] 200mg Take 2 [facility] 100 mg 0-11 tablets by ity of tablet 00:00: mouth in [place] the Medical morning. Branch prazosin 2021-06 Yes [id number] 1mg Take 1 [facility] nivers mg capsule 0-11 capsule by ity of 00:00: mouth at [place] [address] bedtime. Medical Branch lamoTRIgine 2021-06 Yes [id number] 200mg Take 2 [facility] 100 mg 0-11 tablets by ity of tablet 00:00: mouth in [place] the morning. Branch prazosin 2021-06 Yes [id number] 1mg Take 1 U nivers mg capsule 0-11 capsule by ity of 00:00: mouth at [place] [address] bedtime. Medical Branch lamoTRIgine 2021-06 Yes [id number] 200mg Take 2 [facility] 100 mg 0-11 tablets by ity of tablet 00:00: mouth in [place] the morning. Branch prazosin 2021-06 Yes [id number] 1mg Take 1 [facility] nivers mg capsule 0-11 capsule by ity of 00:00: mouth at [place] [address] bedtime. Medical Branch lamoTRIgine 2021-06 Yes [id number] 200mg Take 2 [facility] 100 mg 0-11 tablets by ity of tablet 00:00: mouth in [place] the Medical morning. Branch prazosin 2021-06 Yes [id number] 1mg Take 1 [facility] nivers mg capsule 0-11 capsule by ity of 00:00: mouth at [place] [address] bedtime. Medical Branch lamoTRIgine 2021-06 Yes [id number] 200mg Take 2 [facility] 100 mg 0-11 tablets by ity of tablet 00:00: mouth in [place] the Medical morning. Branch prazosin 2021-06 Yes [id number] 1mg Take 1 [facility] nivers mg capsule 0-11 capsule by ity of 00:00: mouth at [place] [address] bedtime. Medical Branch lamoTRIgine 2021-06 Yes [id number] 200mg Take 2 [facility] 100 mg 0-11 tablets by ity of tablet 00:00: mouth in [place] 00 the Medical morning. Branch prazosin 2021-06 Yes [id number] 1mg Take 1 [facility] nivers mg capsule 0-11 capsule by ity of 00:00: mouth at [place] 00 bedtime. Medical Branch lamoTRIgine 2021-06 Yes [id number] 200mg Take 2 [facility] 100 mg 0-11 tablets by ity of tablet 00:00: mouth in [place] 00 the Medical morning. Branch prazosin 2021-06 Yes [id number] 1mg Take 1 U nivers mg capsule 0-11 capsule by ity of 00:00: mouth at [place] 00 bedtime. Medical Branch lamoTRIgine 2021-06- No [id number] 200mg Take 2 [facility] 100 mg 0-11 01-18 tablets by ity of tablet 00:00: 00:00 mouth in [place] 00 :00 the Medical morning. Branch prazosin 1 2021-06- No [id number] 1mg Take 1 [facility] mg capsule 0-11 -18 capsule by it y of 00:00: 00:00 mouth at [place] 00 :00 bedtime. Medical Branch lamoTRIgine 2021-06- No [id number] 200mg Take 2 [facility] 100 mg 0-11 01-18 tablets by ity of tablet 00:00: 00:00 mouth in [place] 00 :00 the Medical morning. Branch prazosin 2021-06- No [id number] 1mg Take 1 [facility] mg capsule 0-11 -18 capsule by it y of 00:00: 00:00 mouth at [place] 00 :00 bedtime. Medical Branch LORazepam 2021-06- No [id number] 1mg Take 1 [facility] n[facility] (ATIVAN) 1 0-11 10-25 tablet by [facility] mg tablet 00:00: 00:[place] (two) Medical times Branch daily as needed for Anxiety or Agitation. LORazepam 2021-06- No [id number] 1mg Take 1 [facility] nivers (ATIVAN) 1 0-11 10-25 tablet by [facility] of mg tablet 00:00: 00:[place] mouth [place] :[place] (two) Medical times Branch daily as needed for Anxiety or Agitation. LORazepam 2021-06 Yes [id number] 1mg Take 1 Un [place] (ATIVAN) 1 0-10 tablet by [facility] of mg tablet 00:00: mouth 2 [place] 00 (two) Medical times [place] daily as needed for Anxiety or Agitation. prazosin 2021-06 Yes [id number] 1mg Take 1 [facility] nivers mg capsule 0-10 capsule by ity of 00:00: mouth at [place] 00 bedtime. Medical Branch lamoTRIgine 2021-06 Yes [id number] 200mg Take 2 [facility] 100 mg 0-10 tablets by [facility] of tablet 00:00: mouth in [place] 00 the Medical morning. Branch LORazepam 2021-06 Yes [id number] 1mg Take 1 Un [place] (ATIVAN) 1 0-10 tablet by [facility] of mg tablet 00:00: mouth 2 [place] (two) Medical times [place] daily as needed for Anxiety or Agitation. prazosin 2021-06 Yes [id number] 1mg Take 1 [facility] nivers mg capsule 0-10 capsule by [facility]y of 00:00: mouth at [place] 00 bedtime. Medical Branch lamoTRIgine 2021-06 Yes [id number] 200mg Take 2 [facility] 100 mg 0-10 tablets by [facility] of tablet 00:00: mouth in [place] 00 the Medical morning. Branch LORazepam 2021-06- No [id number] 1mg Take 1 [facility] nivers (ATIVAN) 1 0-10 10-11 tablet by [facility] mg tablet 00:00: 00:[place] :[place] (two) Medical [facility] daily as needed for Anxiety or Agitation. prazosin 2021-06- No [id number] 1mg Take 1 [facility] mg capsule 0-10 10-11 capsule by it y of 00:00: 00:00 mouth at [place] 00 :00 bedtime. Medical Branch lamoTRIgine 2021-06- No [id number] 200mg Take 2 [facility] 100 mg 0-10 10-11 tablets by ity of tablet 00:00: 00:00 mouth in [place] 00 :00 the Medical morning. Branch FAMOTIDINE 2021-06 Yes [id number] TAKE ONE [facility] 40 mg 0-04 TABLET BY ity of tablet 00:00: MOUTH [place] 00 EVERY DAY Medical IN THE [place] MORNING. FAMOTIDINE 2021-06 Yes [id number] TAKE ONE [facility] 40 mg 0-04 TABLET BY ity of tablet 00:00: MOUTH [place] 00 EVERY DAY Medical IN THE [place] MORNING. FAMOTIDINE 2021-06 Yes [id number] TAKE ONE [facility] 40 mg 0-04 TABLET BY ity of tablet 00:00: MOUTH [place] 00 EVERY DAY Medical IN THE [place] MORNING. FAMOTIDINE 2021-06 Yes [id number] TAKE ONE [facility] 40 mg 0-04 TABLET BY ity of tablet 00:00: MOUTH [place] 00 EVERY DAY Medical IN THE [place] MORNING. FAMOTIDINE 2021-06 Yes [id number] TAKE ONE [facility] 40 mg 0-04 TABLET BY ity of tablet 00:00: MOUTH [place] 00 EVERY DAY Medical IN THE [place] MORNING. FAMOTIDINE 2021-06 Yes [id number] TAKE ONE [facility] 40 mg 0-04 TABLET BY ity of tablet 00:00: MOUTH [place] 00 EVERY DAY Medical IN THE [facility]. FAMOTIDINE 2021-06 Yes [id number] TAKE ONE [facility] 40 mg 0-04 TABLET BY ity of tablet 00:00: MOUTH [place] 00 EVERY DAY Medical IN THE [place] MORNING. FAMOTIDINE 2021-06 Yes [id number] TAKE ONE [facility] 40 mg 0-04 TABLET BY ity of tablet 00:00: MOUTH [place] 00 EVERY DAY Medical IN THE [place] MORNING. FAMOTIDINE 2021-06 Yes [id number] TAKE ONE [facility] 40 mg 0-04 TABLET BY ity of tablet 00:00: MOUTH [place] 00 EVERY DAY Medical IN THE [facility]. FAMOTIDINE 2021-06 Yes [id number] TAKE ONE [facility] 40 mg 0-04 TABLET BY ity of tablet 00:00: MOUTH [place] 00 EVERY DAY Medical IN THE [place] MORNING. FAMOTIDINE 2021-06- No [id number] TAKE ONE [facility] 40 mg 0-04 11-03 TABLET BY ity of tablet 00:00: 00:00 MOUTH [place] 00 :00 EVERY DAY Medical IN THE [place] MORNING. FAMOTIDINE 2021-06- No [id number] TAKE ONE [facility] 40 mg 0-04 11-03 TABLET BY ity of tablet 00:00: 00:00 MOUTH [place] 00 :00 EVERY DAY Medical IN THE [place] MORNING. LORazepam Yes [id number] 1mg Take 1 [facility] [place] (ATIVAN) 1 9-12 tablet by [facility] of mg tablet 00:00: mouth 2 (two) Medical times Branch daily as needed for Anxiety or Agitation. LORazepam 2021-0 Yes [id number] 1mg Take 1 [facility] [place] (ATIVAN) 1 9-12 tablet by ity of mg tablet 00:00: mouth 2 (two) Medical times Branch daily as needed for Anxiety or Agitation. LORazepam 2021-0 Yes [id number] 1mg Take 1 [facility] (ATIVAN) 1 9-12 tablet by ity of mg tablet 00:00: mouth 2 (two) Medical times Branch daily as needed for Anxiety or Agitation. LORazepam 2021-0 Yes [id number] 1mg Take 1 [facility] [place] (ATIVAN) 1 9-12 tablet by ity of mg tablet 00:00: mouth (two) Medical times Branch daily as needed for Anxiety or Agitation. LORazepam 2021-0 Yes [id number] 1mg Take 1 [facility] [place] (ATIVAN) 1 9-12 tablet by ity of mg tablet 00:00: mouth (two) Medical times Branch daily as needed for Anxiety or Agitation. LORazepam 2021-2- No [id number] 1mg Take 1 [facility] (ATIVAN) 1 9-12 10-10 tablet by [facility] mg tablet 00:00: [place] :[place] (two) Medical times Branch daily as needed for Anxiety or Agitation. famotidine 2021-0 Yes [id number] 40mg Take 1 [facility] (PEPCID) 40 9-01 tablet by [facility] mg tablet 00:00: [place] 00 the Medical morning. Branch famotidine 2021-0 Yes [id number] 40mg Take 1 [facility] (PEPCID) 40 9-01 tablet by [facility] mg tablet 00:00: [place] 00 the Medical morning. Branch famotidine 2021-0 Yes [id number] 40mg Take 1 [facility] (PEPCID) 40 9-01 tablet by [facility] mg tablet 00:00: [place] 00 the Medical morning. Branch famotidine 2021-0 Yes [id number] 40mg Take 1 [facility] (PEPCID) 40 9-01 tablet by [facility] mg tablet 00:00: [place] 00 the Medical morning. Branch famotidine 2021- No [id number] 40mg Take 1 [facility] (PEPCID) 40 02-06 tablet by it y of mg tablet 00:00: 00:00 mouth [place] :00 the Medical morning. Branch famotidine 2021- No [id number] 40mg Take 1 [facility] (PEPCID) 40 02-06 tablet by it y of mg tablet 00:00: 00:00 mouth [place] 00 :00 the Medical morning. Branch Nitrofurant Yes [id number] 100mg Take 1 [facility] oin&Nit. 8-19 capsule by ity o f [place]rocryst 00:00: mouth [place] (MACROBID) 00 the Medical 100 mg morning Branch capsule and 1 capsule in the evening. Nitrofurant Yes [id number] 100mg Take 1 [facility] oin&Nit. 8-19 capsule by ity o f [place]rocryst 00:00: mouth [place] ([place]CROBID) 00 the Medical 100 mg morning Branch capsule and 1 capsule in the evening. Nitrofurant Yes [id number] 100mg Take 1 [facility] oin&Nit. 8-19 capsule by ity o f [place]ryst 00:00: mouth [place] (MACROBID) 00 the Medical 100 mg morning Branch capsule and 1 capsule in the evening. Nitrofurant Yes [id number] 100mg Take 1 [facility] oin&Nit. 8-19 capsule by ity o f [place]rocryst 00:00: mouth [place] ([place]CROBID) 00 the Medical 100 mg morning Branch capsule and 1 capsule in the evening. Nitrofurant Yes [id number] 100mg Take 1 [facility] oin&Nit. 8-19 capsule by ity o f [place]ryst 00:00: mouth [place] (MACROBID) 00 the Medical 100 mg morning Branch capsule and 1 capsule in the evening. Nitrofurant Yes [id number] 100mg Take 1 [facility] oin&Nit. 8-19 capsule by ity o f [place] 00:00: mouth [place] ([place]CROBID) 00 the Medical 100 mg morning Branch capsule and 1 capsule in the evening. Nitrofurant Yes [id number] 100mg Take 1 [facility] oin&Nit. 8-19 capsule by ity o f Macrocryst 00:00: mouth [place] (MACROBID) 00 the Medical 100 mg morning Branch capsule and 1 capsule in the evening. Nitrofurant Yes [id number] 100mg Take 1 [facility] oin&Nit. 8-19 capsule by ity o f [place]ryst 00:00: mouth [place] ([place]CROBID) 00 the Medical 100 mg morning Branch capsule and 1 capsule in the evening. Nitrofurant Yes [id number] 100mg Take 1 [facility] oin&Nit. 8-19 capsule by ity o f [place] 00:00: mouth [place] ([place]CROBID) 00 the Medical 100 mg morning Branch capsule and 1 capsule in the evening. Nitrofurant Yes [id number] 100mg Take 1 [facility] oin&Nit. 8-19 capsule by ity o f [place]ryst 00:00: mouth [place] ([place]CROBID) 00 the Medical 100 mg morning Branch capsule and 1 capsule in the evening. Nitrofurant Yes [id number] 100mg Take 1 [facility] oin&Nit. 8-19 capsule by ity o f [place]ryst 00:00: mouth [place] ([place]CROBID) 00 the Medical 100 mg morning Branch capsule and 1 capsule in the evening. Nitrofurant Yes [id number] 100mg Take 1 [facility] oin&Nit. 8-19 capsule by ity o f [place] 00:00: mouth [place] ([place]CROBID) 00 the Medical 100 mg morning Branch capsule and 1 capsule in the evening. Nitrofurant Yes [id number] 100mg Take 1 [facility] oin&Nit. 8-19 capsule by ity o f [place]ryst 00:00: mouth [place] ([place]CROBID) 00 the Medical 100 mg morning Branch capsule and 1 capsule in the evening. Nitrofurant Yes [id number] 100mg Take 1 [facility] oin&Nit. 8-19 capsule by ity o f [place]ryst 00:00: mouth [place] ([place]CROBID) 00 the Medical 100 mg morning Branch capsule and 1 capsule in the evening. Nitrofurant Yes [id number] 100mg Take 1 [facility] oin&Nit. 8-19 capsule by ity o f [place]ryst 00:00: mouth [place] (MACROBID) 00 the Medical 100 mg morning Branch capsule and 1 capsule in the evening. Nitrofurant Yes [id number] 100mg Take 1 [facility] oin&Nit. 8-19 capsule by ity o f [place]ryst 00:00: mouth [place] (MACROBID) 00 the Medical 100 mg morning Branch capsule and 1 capsule in the evening. Nitrofurant Yes [id number] 100mg Take 1 [facility] oin&Nit. 8-19 capsule by ity o f [place]ryst 00:00: mouth [place] (MACROBID) 00 the Medical 100 mg morning Branch capsule and 1 capsule in the evening. Nitrofurant Yes [id number] 100mg Take 1 [facility] oin&Nit. 8-19 capsule by ity o f [place]ryst 00:00: mouth [place] ([place]CROBID) 00 the Medical 100 mg morning Branch capsule and 1 capsule in the evening. Nitrofurant Yes [id number] 100mg Take 1 [facility] oin&Nit. 8-19 capsule by ity o f [place]ryst 00:00: mouth [place] (MACROBID) 00 the Medical 100 mg morning Branch capsule and 1 capsule in the evening. Nitrofurant Yes [id number] 100mg Take 1 [facility] oin&Nit. 8-19 capsule by ity o f [place]ryst 00:00: mouth [place] (MACROBID) 00 the Medical 100 mg morning Branch capsule and 1 capsule in the evening. Nitrofurant Yes [id number] 100mg Take 1 [facility] oin&Nit. 8-19 capsule by ity o f [place]ryst 00:00: mouth [place] (MACROBID) 00 the Medical 100 mg morning Branch capsule and 1 capsule in the evening. Nitrofurant 0 Yes [id number] 100mg Take 1 [facility] oin&Nit. 8-19 capsule by ity o f [place]ryst 00:00: mouth [place] (MACROBID) 00 the Medical 100 mg morning Branch capsule and 1 capsule in the evening. Nitrofurant Yes [id number] 100mg Take 1 [facility] oin&Nit. 8-19 capsule by ity o f Macrocryst 00:00: mouth [place] (MACROBID) 00 the Medical 100 mg morning Branch capsule and 1 capsule in the evening. Nitrofurant Yes [id number] 100mg Take 1 [facility] oin&Nit. 8-19 capsule by ity o f [facility]ryst 00:00: mouth [place] (MACROBID) 00 the Medical 100 mg morning Branch capsule and 1 capsule in the evening. Nitrofurant Yes [id number] 100mg Take 1 [facility] oin&Nit. 8-19 capsule by ity o f [place]ryst 00:00: mouth [place] (MACROBID) 00 the Medical 100 mg morning Branch capsule and 1 capsule in the evening. Nitrofurant Yes [id number] 100mg Take 1 [facility] oin&Nit. 8-19 capsule by ity o f [facility]ryst 00:00: mouth [place] (MACROBID) 00 the Medical 100 mg morning Branch capsule and 1 capsule in the evening. Nitrofurant Yes [id number] 100mg Take 1 [facility] oin&Nit. 8-19 capsule by ity o f [facility]ryst 00:00: mouth [place] (MACROBID) 00 the Medical 100 mg morning Branch capsule and 1 capsule in the evening. Nitrofurant Yes [id number] 100mg Take 1 [facility] oin&Nit. 8-19 capsule by ity o f [facility]rocryst 00:00: mouth [place] (MACROBID) 00 the Medical 100 mg morning Branch capsule and 1 capsule in the evening. Nitrofurant Yes [id number] 100mg Take 1 [facility] oin&Nit. 8-19 capsule by ity o f Macrocryst 00:00: mouth [place] (MACROBID) 00 the Medical 100 mg morning Branch capsule and 1 capsule in the evening. Nitrofurant 0 Yes [id number] 100mg Take 1 [facility] oin&Nit. 8-19 capsule by ity o f [facility]ryst 00:00: mouth [place] (MACROBID) 00 the Medical 100 mg morning Branch capsule and 1 capsule in the evening. Nitrofurant 0 Yes [id number] 100mg Take 1 [facility] oin&Nit. 8-19 capsule by ity o f [facility]ryst 00:00: mouth [place] (MACROBID) 00 the Medical 100 mg morning Branch capsule and 1 capsule in the evening. Nitrofurant Yes [id number] 100mg Take 1 [facility] oin&Nit. 8-19 capsule by ity o f Mac[facility]ryst 00:00: mouth [place] (MACROBID) 00 the Medical 100 mg morning Branch capsule and 1 capsule in the evening. Nitrofurant Yes [id number] 100mg Take 1 [facility] oin&Nit. 8-19 capsule by ity o f [facility] 00:00: mouth [place] (MACROBID) 00 the Medical 100 mg morning Branch capsule and 1 capsule in the evening. Nitrofurant Yes [id number] 100mg Take 1 [facility] oin&Nit. 8-19 capsule by ity o f [facility]ryst 00:00: mouth [place] (MACROBID) 00 the Medical 100 mg morning Branch capsule and 1 capsule in the evening. Nitrofurant Yes [id number] 100mg Take 1 [facility] oin&Nit. 8-19 capsule by ity o f [facility]ryst 00:00: mouth [place] (MACROBID) 00 the Medical 100 mg morning Branch capsule and 1 capsule in the evening. Nitrofurant Yes [id number] 100mg Take 1 [facility] oin&Nit. 8-19 capsule by ity o f [facility]ryst 00:00: mouth [place] (MACROBID) 00 the Medical 100 mg morning Branch capsule and 1 capsule in the evening. Nitrofurant Yes [id number] 100mg Take 1 [facility] oin&Nit. 8-19 capsule by ity o f [facility]ryst 00:00: mouth [place] (MACROBID) 00 the Medical 100 mg morning Branch capsule and 1 capsule in the evening. Nitrofurant 0 Yes [id number] 100mg Take 1 [facility] oin&Nit. 8-19 capsule by ity o f Mac[facility]ryst 00:00: mouth [place] (MACROBID) 00 the Medical 100 mg morning Branch capsule and 1 capsule in the evening. Nitrofurant Yes [id number] 100mg Take 1 [facility] oin&Nit. 8-19 capsule by ity o f [facility]ryst 00:00: mouth [place] (MACROBID) 00 the Medical 100 mg morning Branch capsule and 1 capsule in the evening. Nitrofurant 2021-0 Yes [id number] 100mg Take 1 [facility] oin&Nit. 8-19 capsule by ity o f [facility]ryst 00:00: mouth [place] (MACROBID) 00 the Medical 100 mg morning Branch capsule and 1 capsule in the evening. Nitrofurant 0 Yes [id number] 100mg Take 1 [facility] oin&Nit. 8-19 capsule by ity o f [facility]rocryst 00:00: mouth [place] (MACROBID) 00 the Medical 100 mg morning Branch capsule and 1 capsule in the evening. Insulin 0 Yes [id number] Use as [facility] [place], 8-10 directed ity of Disposable, 00:00: [place] ([place] [address]) 32 Branch gauge x 1/4" Ndle Insulin 2021-0 Yes [id number] Use as [facility] [place], 8-10 directed ity of Disposable, 00:00: [place] ([place] [address]) 32 Branch gauge x 1/4" Ndle Insulin 2021-0 Yes [id number] Use as [facility] [place], 8-10 directed ity of Disposable, 00:00: [place] ([place] [address]) 32 Branch gauge x 1/4" Ndle Insulin 2021-0 Yes [id number] Use as [facility] [place], 8-10 directed ity of Disposable, 00:00: [place] ([place] [address]) 32 Branch gauge x 1/4" Ndle Insulin 2021-0 Yes [id number] Use as [facility] [place], 8-10 directed ity of Disposable, 00:00: [place] ([place] [address]) 32 Branch gauge x 1/4" Ndle Insulin 2021-0 Yes [id number] Use as [facility] [place], 8-10 directed ity of Disposable, 00:00: [place] ([place] [address]) 32 Branch gauge x 1/4" Ndle Insulin 2021-0 Yes [id number] Use as [facility] [place], 8-10 directed ity of Disposable, 00:00: [place] ([place] [address]) 32 Branch gauge x 1/4" Ndle Insulin 2021-0 Yes [id number] Use as [facility] [place], 8-10 directed ity of Disposable, 00:00: [place] ([place] [address]) 32 Branch gauge x 1/4" Ndle Insulin 2022-0 Yes [id number] Use as [facility] [place], 8-10 directed ity of Disposable, 00:00: [place] ([place] [address]) 32 Branch gauge x 1/4" Ndle Insulin 2022-0 Yes [id number] Use as [facility] [place], 8-10 directed ity of Disposable, 00:00: [place] ([place] [address]) 32 Branch gauge x 1/4" Ndle Insulin 2022-0 Yes [id number] Use as [facility] [place], 8-10 directed ity of Disposable, 00:00: [place] ([place] [address]) 32 Branch gauge x 1/4" Ndle Insulin 202-0 Yes [id number] Use as [facility] [place], 8-10 directed ity of Disposable, 00:00: [place] ([place] [address]) 32 Branch gauge x 1/4" Ndle Insulin 202-0 Yes [id number] Use as [facility] [place], 8-10 directed ity of Disposable, 00:00: [place] ([place] [address]) 32 Branch gauge x 1/4" Ndle Insulin 2022-0 Yes [id number] Use as [facility] [place], 8-10 directed ity of Disposable, 00:00: [place] ([place] [address]) 32 Branch gauge x 1/4" Ndle Insulin 2022-0 Yes [id number] Use as [facility] [place], 8-10 directed ity of Disposable, 00:00: [place] ([place] [address]) 32 Branch gauge x 1/4" Ndle Insulin 2022-0 Yes [id number] Use as [facility] [place], 8-10 directed ity of Disposable, 00:00: [place] ([place] [address]) 32 Branch gauge x 1/4" Ndle Insulin 2022-0 Yes [id number] Use as [facility] [place], 8-10 directed ity of Disposable, 00:00: [place] ([place] [address]) 32 Branch gauge x 1/4" Ndle Insulin 2022-0 Yes [id number] Use as [facility] [place], 8-10 directed ity of Disposable, 00:00: [place] ([place] [address]) 32 Branch gauge x 1/4" Ndle Insulin 2022-0 Yes [id number] Use as [facility] [place], 8-10 directed ity of Disposable, 00:00: [place] ([place] [address]) 32 Branch gauge x 1/4" Ndle Insulin 2022-0 Yes [id number] Use as [facility] [place], 8-10 directed ity of Disposable, 00:00: [place] ([place] [address]) 32 Branch gauge x 1/4" Ndle Insulin 2022-0 Yes [id number] Use as [facility] [place], 8-10 directed ity of Disposable, 00:00: [place] ([place] [address]) 32 Branch gauge x 1/4" Ndle Insulin 2022-0 Yes [id number] Use as [facility] [place], 8-10 directed ity of Disposable, 00:00: [place] ([place] [address]) 32 Branch gauge x 1/4" Ndle Insulin 2022-0 Yes [id number] Use as [facility] [place], 8-10 directed ity of Disposable, 00:00: [place] ([place] [address]) 32 Branch gauge x 1/4" Ndle Insulin 2022-0 Yes [id number] Use as [facility] [place], 8-10 directed ity of Disposable, 00:00: [place] ([place] [address]) 32 Branch gauge x 1/4" Ndle Insulin 2022-0 Yes [id number] Use as [facility] [place], 8-10 directed ity of Disposable, 00:00: [place] ([place] [address]) 32 Branch gauge x 1/4" Ndle Insulin 2022-0 Yes [id number] Use as [facility] [place], 8-10 directed ity of Disposable, 00:00: [place] ([place] [address]) 32 Branch gauge x 1/4" Ndle Insulin 2022-0 Yes [id number] Use as [facility] [place], 8-10 directed ity of Disposable, 00:00: [place] ([place] [address]) 32 Branch gauge x 1/4" Ndle Insulin 2022-0 Yes [id number] Use as [facility] [place], 8-10 directed ity of Disposable, 00:00: [place] ([place] [address]) 32 Branch gauge x 1/4" Ndle Insulin 2022-0 Yes [id number] Use as [facility] [place], 8-10 directed ity of Disposable, 00:00: [place] ([place] [address]) 32 Branch gauge x 1/4" Ndle Insulin 2022-0 Yes [id number] Use as [facility] [place], 8-10 directed ity of Disposable, 00:00: [place] ([place] [address]) 32 Branch gauge x 1/4" Ndle Insulin 2022-0 Yes [id number] Use as [facility] [place], 8-10 directed ity of Disposable, 00:00: [place] ([place] [address]) 32 Branch gauge x 1/4" Ndle Insulin 2022-0 Yes [id number] Use as [facility] [place], 8-10 directed ity of Disposable, 00:00: [place] ([place] [address]) 32 Branch gauge x 1/4" Ndle Insulin 2022-0 Yes [id number] Use as [facility] [place], 8-10 directed ity of Disposable, 00:00: [place] ([place] [address]) 32 Branch gauge x 1/4" Ndle Insulin 2022-0 Yes [id number] Use as [facility] [place], 8-10 directed ity of Disposable, 00:00: [place] ([place] [address]) 32 Branch gauge x 1/4" Ndle Insulin 2022-0 Yes [id number] Use as [facility] [place], 8-10 directed ity of Disposable, 00:00: [place] ([place] [address]) 32 Branch gauge x 1/4" Ndle Insulin 2022-0 Yes [id number] Use as [facility] [place], 8-10 directed ity of Disposable, 00:00: [place] ([place] [address]) 32 Branch gauge x 1/4" Ndle Insulin 2022-0 Yes [id number] Use as [facility] [place], 8-10 directed ity of Disposable, 00:00: [place] ([place] [address]) 32 Branch gauge x 1/4" Ndle Insulin 2022-0 Yes [id number] Use as [facility] [place], 8-10 directed ity of Disposable, 00:00: [place] ([place] [address]) 32 Branch gauge x 1/4" Ndle Insulin 2022-0 Yes [id number] Use as [facility] [place], 8-10 directed ity of Disposable, 00:00: [place] ([place] [address]) 32 Branch gauge x 1/4" Ndle Insulin 2022-0 Yes [id number] Use as [facility] [place], 8-10 directed ity of Disposable, 00:00: [place] (NOV[facility] 00 Medical 32) 32 Branch gauge x 1/4" Ndle Insulin Yes [id number] Use as [facility] [place], 8-10 directed ity of Disposable, 00:00: [place] (N[facility] 00 Medical 32) 32 Branch gauge x 1/4" Ndle LORazepam 2021- No [id number] 1mg Take 1 [facility] (ATIVAN) 1 01-1510 tablet by [facility] of mg tablet 00:00: 00:[place] mouth [place] 00 :[place] (two) Medical times Branch daily as needed for Anxiety or Agitation. LORazepam 2021- No [id number] 1mg Take 1 [facility] (ATIVAN) 1 01-15-10 tablet by [facility] of mg tablet 00:00: 00:[place] mouth [place] 00 :[place] (two) Medical times Branch daily as needed for Anxiety or Agitation. famotidine 2021- No [id number] 40mg Take 1 [facility] (PEPCID) 40 01-08 tablet by it y of mg tablet 00:00: 00:00 mouth [place] 00 :00 the Medical morning. Branch famotidine 2021- No [id number] 40mg Take 1 [facility] (PEPCID) 40 01-08 tablet by it y of mg tablet 00:00: 00:00 mouth [place] 00 :00 the Medical morning. Branch lamoTRIgine Yes [id number] 200mg Take 2 [facility] 100 mg 6-17 tablets by ity of tablet 00:00: mouth [place] 00 daily. Medical Branch prazosin 1 0 Yes [id number] 1mg Take 1 [facility] mg capsule 6-17 capsule by ity of 00:00: mouth at [place] [address] bedtime. Medical Branch lamoTRIgine 2021-0 Yes [id number] 200mg Take 2 [facility] 100 mg 6-17 tablets by ity of tablet 00:00: mouth [place] 00 daily. Medical Branch prazosin 1 2021-0 Yes [id number] 1mg Take 1 [facility] mg capsule 6-17 capsule by ity of 00:00: mouth at [place] 00 bedtime. Medical Branch lamoTRIgine Yes [id number] 200mg Take 2 [facility] 100 mg 6-17 tablets by ity of tablet 00:00: mouth [place] 00 daily. Medical Branch prazosin 1 Yes [id number] 1mg Take 1 [facility] mg capsule 6-17 capsule by ity of 00:00: mouth at [place] [address] bedtime. Medical Branch lamoTRIgine Yes [id number] 200mg Take 2 [facility] 100 mg 6-17 tablets by ity of tablet 00:00: mouth [place] 00 daily. Medical Branch prazosin 1 Yes [id number] 1mg Take 1 [facility] mg capsule 6-17 capsule by ity of 00:00: mouth at [place] [address] bedtime. Medical Branch lamoTRIgine Yes [id number] 200mg Take 2 [facility] 100 mg 6-17 tablets by ity of tablet 00:00: mouth [place] 00 daily. Medical Branch prazosin 1 Yes [id number] 1mg Take 1 [facility] mg capsule 6-17 capsule by ity of 00:00: mouth at [place] [address] bedtime. Medical Branch lamoTRIgine Yes [id number] 200mg Take 2 [facility] 100 mg 6-17 tablets by ity of tablet 00:00: mouth [place] 00 daily. Medical Branch prazosin 1 Yes [id number] 1mg Take 1 [facility] mg capsule 6-17 capsule by ity of 00:00: mouth at [place] [address] bedtime. Medical Branch lamoTRIgine 2021- No [id number] 200mg Take 2 [facility] 100 mg 6-17 10-10 tablets by ity of tablet 00:00: 00:00 mouth [place] 00 :00 daily. Medical Branch prazosin 1 2021- No [id number] 1mg Take 1 [facility] mg capsule 6-17 10-10 capsule by it y of 00:00: 00:00 mouth at [place] 00 :00 bedtime. Medical Branch hydrOXYzine 2021-2021- No [id number] 25mg Take 1 [facility] 25 mg 6-17 08-19 tablet by ity of tablet 00:00: 00:00 mouth at [place] 00 :00 bedtime as Medical needed for Branch Anxiety or Other (insomnia) . hydrOXYzine 2021- No [id number] 25mg Take 1 [facility] 25 mg 6-17 08-19 tablet by ity of tablet 00:00: 00:00 mouth at [place] 00 :00 bedtime as Medical needed for Branch Anxiety or Other (insomnia) . metoprolol Yes [id number] 50mg Take 1 U nivers succinate 5-06 tablet by ity o f XL 50 mg 24 00:00: mouth [place] hr tablet 00 daily. Medical Branch metoprolol 0 Yes [id number] 50mg Take 1 [facility] nivers succinate 5-06 tablet by ity o f XL 50 mg 24 00:00: mouth [place] hr tablet 00 daily. Medical Branch metoprolol Yes [id number] 50mg Take 1 [facility] nivers succinate 5-06 tablet by ity o f XL 50 mg 24 00:00: mouth [place] hr tablet 00 daily. Medical Branch metoprolol Yes [id number] 50mg Take 1 U nivers succinate 5-06 tablet by ity o f XL 50 mg 24 00:00: mouth [place] hr tablet 00 daily. Medical Branch metoprolol Yes [id number] 50mg Take 1 [facility] nivers succinate 5-06 tablet by ity o f XL 50 mg 24 00:00: mouth [place] hr tablet 00 daily. Medical Branch metoprolol 0 Yes [id number] 50mg Take 1 U nivers succinate 5-06 tablet by ity o f XL 50 mg 24 00:00: mouth [place] hr tablet 00 daily. Medical Branch metoprolol Yes [id number] 50mg Take 1 [facility] nivers succinate 5-06 tablet by ity o f XL 50 mg 24 00:00: mouth [place] hr tablet 00 daily. Medical Branch metoprolol Yes [id number] 50mg Take 1 [facility] nivers succinate 5-06 tablet by ity o f XL 50 mg 24 00:00: mouth [place] hr tablet 00 daily. Medical Branch metoprolol 0 Yes [id number] 50mg Take 1 U nivers succinate 5-06 tablet by ity o f XL 50 mg 24 00:00: mouth [place] hr tablet 00 daily. Medical Branch metoprolol 0 Yes [id number] 50mg Take 1 U nivers succinate 5-06 tablet by ity o f XL 50 mg 24 00:00: mouth [place] hr tablet 00 daily. Medical Branch metoprolol Yes [id number] 50mg Take 1 [facility] nivers succinate 5-06 tablet by ity o f XL 50 mg 24 00:00: mouth [place] hr tablet 00 daily. Medical Branch metoprolol Yes [id number] 50mg Take 1 U nivers succinate 5-06 tablet by ity o f XL 50 mg 24 00:00: mouth [place] hr tablet 00 daily. Medical Branch metoprolol Yes [id number] 50mg Take 1 U nivers succinate 5-06 tablet by ity o f XL 50 mg 24 00:00: mouth [place] hr tablet 00 daily. Medical Branch metoprolol Yes [id number] 50mg Take 1 [facility] nivers succinate 5-06 tablet by ity o f XL 50 mg 24 00:00: mouth [place] hr tablet 00 daily. Medical Branch metoprolol Yes [id number] 50mg Take 1 U nivers succinate 5-06 tablet by ity o f XL 50 mg 24 00:00: mouth [place] hr tablet 00 daily. Medical Branch metoprolol Yes [id number] 50mg Take 1 [facility] nivers succinate 5-06 tablet by ity o f XL 50 mg 24 00:00: mouth [place] hr tablet 00 daily. Medical Branch metoprolol Yes [id number] 50mg Take 1 U nivers succinate 5-06 tablet by ity o f XL 50 mg 24 00:00: mouth [place] hr tablet 00 daily. Medical Branch metoprolol Yes [id number] 50mg Take 1 U nivers succinate 5-06 tablet by ity o f XL 50 mg 24 00:00: mouth [place] hr tablet 00 daily. Medical Branch metoprolol Yes [id number] 50mg Take 1 [facility] nivers succinate 5-06 tablet by ity o f XL 50 mg 24 00:00: mouth [place] hr tablet 00 daily. Medical Branch metoprolol Yes [id number] 50mg Take 1 [facility] nivers succinate 5-06 tablet by ity o f XL 50 mg 24 00:00: mouth [place] hr tablet 00 daily. Medical Branch metoprolol Yes [id number] 50mg Take 1 [facility] nivers succinate 5-06 tablet by ity o f XL 50 mg 24 00:00: mouth [place] hr tablet 00 daily. Medical Branch metoprolol Yes [id number] 50mg Take 1 [facility] nivers succinate 5-06 tablet by ity o f XL 50 mg 24 00:00: mouth [place] hr tablet 00 daily. Medical Branch metoprolol Yes [id number] 50mg Take 1 U nivers succinate 5-06 tablet by ity o f XL 50 mg 24 00:00: mouth [place] hr tablet 00 daily. Medical Branch metoprolol Yes [id number] 50mg Take 1 U nivers succinate 5-06 tablet by ity o f XL 50 mg 24 00:00: mouth [place] hr tablet 00 daily. Medical Branch metoprolol Yes [id number] 50mg Take 1 [facility] nivers succinate 5-06 tablet by ity o f XL 50 mg 24 00:00: mouth [place] hr tablet 00 daily. Medical Branch metoprolol Yes [id number] 50mg Take 1 U nivers succinate 5-06 tablet by ity o f XL 50 mg 24 00:00: mouth [place] hr tablet 00 daily. Medical Branch metoprolol Yes [id number] 50mg Take 1 U nivers succinate 5-06 tablet by ity o f XL 50 mg 24 00:00: mouth [place] hr tablet 00 daily. Medical Branch metoprolol Yes [id number] 50mg Take 1 U nivers succinate 5-06 tablet by ity o f XL 50 mg 24 00:00: mouth [place] hr tablet 00 daily. Medical Branch metoprolol Yes [id number] 50mg Take 1 U nivers succinate 5-06 tablet by ity o f XL 50 mg 24 00:00: mouth [place] hr tablet 00 daily. Medical Branch metoprolol Yes [id number] 50mg Take 1 U nivers succinate 5-06 tablet by ity o f XL 50 mg 24 00:00: mouth [place] hr tablet 00 daily. Medical Branch metoprolol Yes [id number] 50mg Take 1 U nivers succinate 5-06 tablet by ity o f XL 50 mg 24 00:00: mouth [place] hr tablet 00 daily. [facility] metoprolol Yes [id number] 50mg Take 1 U nivers succinate 5-06 tablet by ity o f XL 50 mg 24 00:00: mouth [place] hr tablet 00 daily. [facility] metoprolol Yes [id number] 50mg Take 1 U nivers succinate 5-06 tablet by ity o f XL 50 mg 24 00:00: mouth [place] hr tablet [address] [facility] metoprolol Yes [id number] 50mg Take 1 U nivers succinate 5-06 tablet by ity o f XL 50 mg 24 00:00: mouth [place] hr tablet [address] [facility] metoprolol Yes [id number] 50mg Take 1 U nivers succinate 5-06 tablet by ity o f XL 50 mg 24 00:00: mouth [place] hr tablet [address] [facility] metoprolol Yes [id number] 50mg Take 1 U nivers succinate 5-06 tablet by ity o f XL 50 mg 24 00:00: mouth [place] hr tablet [address] [facility] metoprolol Yes [id number] 50mg Take 1 U nivers succinate 5-06 tablet by ity o f XL 50 mg 24 00:00: mouth [place] hr tablet [address] [facility] metoprolol Yes [id number] 50mg Take 1 U nivers succinate 5-06 tablet by ity o f XL 50 mg 24 00:00: mouth [place] hr tablet [address] [facility] metoprolol Yes [id number] 50mg Take 1 U nivers succinate 5-06 tablet by ity o f XL 50 mg 24 00:00: mouth [place] hr tablet [address] [facility] metoprolol 2022- No [id number] 50mg Take 1 [facility] succinate 5-06 02-03 tablet by ity of XL 50 mg 24 00:00: [place] tablet 00 :[address] [facility] metoprolol 2022- No [id number] 50mg Take 1 [facility] succinate 5-06 02-03 tablet by ity of XL 50 mg 24 00:00: [place] tablet 00 :[address] [facility] Insulin Yes [id number] Use to Uni vers Syringe-Nee 3-02 inject ity of dle U-100 1 00:00: insulin 4X [place] mL 31 gauge 00 daily. Medica l x 516 Syrg DX:[id number] [facility] Insulin Yes [id number] Use to Uni vers Syringe-Nee 3-02 inject ity of dle U-100 1 00:00: insulin 4X [place] mL 31 gauge 00 daily. Medica l x 5/16 Syrg DX:[id number] [facility] Insulin Yes [id number] Use to Uni vers Syringe-Nee 3-02 inject ity of dle U-100 1 00:00: insulin 4X [place] mL 31 gauge 00 daily. Medica l x 5/16 Syrg DX:[id number] [facility] Insulin Yes [id number] Use to Uni vers Syringe-Nee 3-02 inject ity of dle U-100 1 00:00: insulin 4X [place] mL 31 gauge 00 daily. Medica l x 5/16 Syrg DX:[id number] [facility] Insulin Yes [id number] Use to Uni vers Syringe-Nee 3-02 inject ity of dle U-100 1 00:00: insulin 4X [place] mL 31 gauge 00 daily. Medica l x 5/16 Syrg DX:[id number] [facility] Insulin Yes [id number] Use to Uni vers Syringe-Nee 3-02 inject ity of dle U-100 1 00:00: insulin 4X [place] mL 31 gauge 00 daily. Medica l x 5/16 Syrg DX:[id number] [facility] Insulin Yes [id number] Use to Uni vers Syringe-Nee 3-02 inject ity of dle U-100 1 00:00: insulin 4X [place] mL 31 gauge 00 daily. Medica l x 5/16 Syrg DX:[id number] [facility] Insulin Yes [id number] Use to Uni vers Syringe-Nee 3-02 inject ity of dle U-100 1 00:00: insulin 4X [place] mL 31 gauge 00 daily. Medica l x 5/16 Syrg DX:[id number] [facility] Insulin Yes [id number] Use to Uni vers Syringe-Nee 3-02 inject ity of dle U-100 1 00:00: insulin 4X [place] mL 31 gauge 00 daily. Medica l x 5/16 Syrg DX:[id number] [facility] Insulin Yes [id number] Use to Uni vers Syringe-Nee 3-02 inject ity of dle U-100 1 00:00: insulin 4X [place] mL 31 gauge 00 daily. Medica l x 516 Syrg DX:[id number] [facility] Insulin Yes [id number] Use to Uni vers Syringe-Nee 3-02 inject ity of dle U-100 1 00:00: insulin 4X [place] mL 31 gauge 00 daily. Medica l x 5 Syrg DX:[id number] [facility] Insulin Yes [id number] Use to Uni vers Syringe-Nee 3-02 inject ity of dle U-100 1 00:00: insulin 4X [place] mL 31 gauge 00 daily. Medica l x 5 Syrg DX:[id number] [facility] Insulin Yes [id number] Use to Uni vers Syringe-Nee 3-02 inject ity of dle U-100 1 00:00: insulin 4X [place] mL 31 gauge 00 daily. Medica l x 5 Syrg DX:[id number] [facility] Insulin Yes [id number] Use to Uni vers Syringe-Nee 3-02 inject ity of dle U-100 1 00:00: insulin 4X [place] mL 31 gauge 00 daily. Medica l x 10/21 Syrg DX:[id number] [facility] Insulin Yes [id number] Use to Uni vers Syringe-Nee 3-02 inject ity of dle U-100 1 00:00: insulin 4X [place] mL 31 gauge 00 daily. Medica l x 516 Syrg DX:[id number] [facility] Insulin Yes [id number] Use to Uni vers Syringe-Nee 3-02 inject ity of dle U-100 1 00:00: insulin 4X [place] mL 31 gauge 00 daily. Medica l x 516 Syrg DX:[id number] [facility] Insulin Yes [id number] Use to Uni vers Syringe-Nee 3-02 inject ity of dle U-100 1 00:00: insulin 4X [place] mL 31 gauge 00 daily. Medica l x 516 Syrg DX:[id number] [facility] Insulin Yes [id number] Use to Uni vers Syringe-Nee 3-02 inject ity of dle U-100 1 00:00: insulin 4X [place] mL 31 gauge 00 daily. Medica l x 516 Syrg DX:[id number] [facility] Insulin Yes [id number] Use to Uni vers Syringe-Nee 08-07 inject ity of dle U-100 1 00:00: insulin 4X [place] mL 31 gauge 00 daily. Medica l x 516 Syrg DX:[id number] [facility] Insulin Yes [id number] Use to Uni vers Syringe-Nee 08-07 inject ity of dle U-100 1 00:00: insulin 4X [place] mL 31 gauge 00 daily. Medica l x 516 Syrg DX:[id number] [facility] Insulin 2021- No [id number] Use to Un kendra Syringe-Nee 08-0723 inject ity o f dle U-100 1 00:00: 00:00 insulin 4X [place] mL 31 gauge 00 :00 daily. Medica l x 516 Syrg DX:[id number] [facility] Insulin 2021- No [id number] Use to Un kendra Syringe-Nee 08-07 inject ity o f dle U-100 1 00:00: 00:00 insulin 4X [place] mL 31 gauge 00 :00 daily. Medica l x 516 Syrg DX:[id number] [facility] insulin Yes [id number] 160 to Uni vers aspart 2-09 200, 1 u, ity of U-100 00:00: 201 to [place] (NOVOLOG 00 240, 2 u. Medica l FLEXPEN BG 241 to Branch U-100 280, 3 INSULIN) unit. BG 100 unit/mL 281 to (3 mL) 300, 4 injection units. BG > 300, 5 units, recheck in 3 hours and cover with s/s insulin Yes [id number] inject 20 [facility] glargine 2-09 Units ity of (LANTUS 00:00: under the [place] U-100 00 skin twice Medical INSULIN) a day. Branch 100 unit/mL injection insulin Yes [id number] 160 to Uni vers aspart 2-09 200, 1 u, ity of U-100 00:00: 201 to [place] (NOVOLOG 00 240, 2 u. Medica l FLEXPEN BG 241 to Branch U-100 280, 3 INSULIN) unit. BG 100 unit/mL 281 to (3 mL) 300, 4 injection units. BG > 300, 5 units, recheck in 3 hours and cover with s/s insulin 2021-0 Yes [id number] inject 20 [facility] glargine 2-09 Units ity of (LANTUS 00:00: under the [place] U-100 00 skin twice Medical INSULIN) a day. Branch 100 unit/mL injection insulin Yes [id number] 160 to Uni vers aspart 2-09 200, 1 u, ity of U-100 00:00: 201 to [place] (NOVOLOG 00 240, 2 u. Medica l FLEXPEN BG 241 to Branch U-100 280, 3 INSULIN) unit. BG 100 unit/mL 281 to (3 mL) 300, 4 injection units. BG > 300, 5 units, recheck in 3 hours and cover with s/s insulin 0 Yes [id number] inject 20 [facility] glargine 2-09 Units ity of (LANTUS 00:00: under the [place] U-100 00 skin twice Medical INSULIN) a day. Branch 100 unit/mL injection insulin Yes [id number] 160 to Uni vers aspart 2-09 200, 1 u, ity of U-100 00:00: 201 to [place] (NOVOLOG 00 240, 2 u. Medica l FLEXPEN BG 241 to Branch U-100 280, 3 INSULIN) unit. BG 100 unit/mL 281 to (3 mL) 300, 4 injection units. BG > 300, 5 units, recheck in 3 hours and cover with s/s insulin 2021-0 Yes [id number] inject 20 [facility] glargine 2-09 Units ity of (LANTUS 00:00: under the [place] U-100 00 skin twice Medical INSULIN) a day. Branch 100 unit/mL injection insulin Yes [id number] 160 to Uni vers aspart 2-09 200, 1 u, ity of U-100 00:00: 201 to [place] (NOVOLOG 00 240, 2 u. Medica l FLEXPEN BG 241 to Branch U-100 280, 3 INSULIN) unit. BG 100 unit/mL 281 to (3 mL) 300, 4 injection units. BG > 300, 5 units, recheck in 3 hours and cover with s/s insulin 2021-0 Yes [id number] inject 20 [facility] glargine 2-09 Units ity of (LANTUS 00:00: under the [place] U-100 00 skin twice Medical INSULIN) a day. Branch 100 unit/mL injection insulin Yes [id number] 160 to Uni vers aspart 2-09 200, 1 u, ity of U-100 00:00: 201 to [place] (NOVOLOG 00 240, 2 u. Medica l FLEXPEN BG 241 to Branch U-100 280, 3 INSULIN) unit. BG 100 unit/mL 281 to (3 mL) 300, 4 injection units. BG > 300, 5 units, recheck in 3 hours and cover with s/s insulin 0 Yes [id number] inject 20 [facility] glargine 2-09 Units ity of (LANTUS 00:00: under the [place] U-100 00 skin twice Medical INSULIN) a day. Branch 100 unit/mL injection insulin Yes [id number] 160 to Uni vers aspart 2-09 200, 1 u, ity of U-100 00:00: 201 to [place] (NOVOLOG 00 240, 2 u. Medica l FLEXPEN BG 241 to Branch U-100 280, 3 INSULIN) unit. BG 100 unit/mL 281 to (3 mL) 300, 4 injection units. BG > 300, 5 units, recheck in 3 hours and cover with s/s insulin Yes [id number] inject 20 [facility] glargine 2-09 Units ity of (LANTUS 00:00: under the [place] U-100 00 skin twice Medical INSULIN) a day. Branch 100 unit/mL injection insulin Yes [id number] 160 to Uni vers aspart 2-09 200, 1 u, ity of U-100 00:00: 201 to [place] (NOVOLOG 00 240, 2 u. Medica l FLEXPEN BG 241 to Branch U-100 280, 3 INSULIN) unit. BG 100 unit/mL 281 to (3 mL) 300, 4 injection units. BG > 300, 5 units, recheck in 3 hours and cover with s/s insulin 0 Yes [id number] inject 20 [facility] glargine 2-09 Units ity of (LANTUS 00:00: under the [place] U-100 00 skin twice Medical INSULIN) a day. Branch 100 unit/mL injection insulin Yes [id number] 160 to Uni vers aspart 2-09 200, 1 u, ity of U-100 00:00: 201 to [place] (NOVOLOG 00 240, 2 u. Medica l FLEXPEN BG 241 to Branch U-100 280, 3 INSULIN) unit. BG 100 unit/mL 281 to (3 mL) 300, 4 injection units. BG > 300, 5 units, recheck in 3 hours and cover with s/s insulin Yes [id number] inject 20 [facility] glargine 2-09 Units ity of (LANTUS 00:00: under the [place] U-100 00 skin twice Medical INSULIN) a day. Branch 100 unit/mL injection insulin Yes [id number] 160 to Uni vers aspart 2-09 200, 1 u, ity of U-100 00:00: 201 to [place] (NOVOLOG 00 240, 2 u. Medica l FLEXPEN BG 241 to Branch U-100 280, 3 INSULIN) unit. BG 100 unit/mL 281 to (3 mL) 300, 4 injection units. BG > 300, 5 units, recheck in 3 hours and cover with s/s insulin Yes [id number] inject 20 [facility] glargine 2-09 Units ity of (LANTUS 00:00: under the [place] U-100 00 skin twice Medical INSULIN) a day. Branch 100 unit/mL injection insulin Yes [id number] 160 to Uni vers aspart 2-09 200, 1 u, ity of U-100 00:00: 201 to [place] (NOVOLOG 00 240, 2 u. Medica l FLEXPEN BG 241 to Branch U-100 280, 3 INSULIN) unit. BG 100 unit/mL 281 to (3 mL) 300, 4 injection units. BG > 300, 5 units, recheck in 3 hours and cover with s/s insulin 0 Yes [id number] inject 20 [facility] glargine 2-09 Units ity of (LANTUS 00:00: under the [place] U-100 00 skin twice Medical INSULIN) a day. Branch 100 unit/mL injection insulin Yes [id number] 160 to Uni vers aspart 2-09 200, 1 u, ity of U-100 00:00: 201 to [place] (NOVOLOG 00 240, 2 u. Medica l FLEXPEN BG 241 to Branch U-100 280, 3 INSULIN) unit. BG 100 unit/mL 281 to (3 mL) 300, 4 injection units. BG > 300, 5 units, recheck in 3 hours and cover with s/s insulin Yes [id number] inject 20 [facility] glargine 2-09 Units ity of (LANTUS 00:00: under the [place] U-100 00 skin twice Medical INSULIN) a day. Branch 100 unit/mL injection insulin Yes [id number] 160 to Uni vers aspart 2-09 200, 1 u, ity of U-100 00:00: 201 to [place] (NOVOLOG 00 240, 2 u. Medica l FLEXPEN BG 241 to Branch U-100 280, 3 INSULIN) unit. BG 100 unit/mL 281 to (3 mL) 300, 4 injection units. BG > 300, 5 units, recheck in 3 hours and cover with s/s insulin Yes [id number] 160 to Uni vers aspart 2-09 200, 1 u, ity of U-100 00:00: 201 to [place] (NOVOLOG 00 240, 2 u. Medica l FLEXPEN BG 241 to Branch U-100 280, 3 INSULIN) unit. BG 100 unit/mL 281 to (3 mL) 300, 4 injection units. BG > 300, 5 units, recheck in 3 hours and cover with s/s insulin Yes [id number] 160 to Uni vers aspart 2-09 200, 1 u, ity of U-100 00:00: 201 to [place] (NOVOLOG 00 240, 2 u. Medica l FLEXPEN BG 241 to Branch U-100 280, 3 INSULIN) unit. BG 100 unit/mL 281 to (3 mL) 300, 4 injection units. BG > 300, 5 units, recheck in 3 hours and cover with s/s insulin Yes [id number] 160 to Uni vers aspart 2-09 200, 1 u, ity of U-100 00:00: 201 to [place] (NOVOLOG 00 240, 2 u. Medica l FLEXPEN BG 241 to Branch U-100 280, 3 INSULIN) unit. BG 100 unit/mL 281 to (3 mL) 300, 4 injection units. BG > 300, 5 units, recheck in 3 hours and cover with s/s insulin 2022-0 Yes [id number] 160 to Uni vers aspart 2-09 200, 1 u, ity of U-100 00:00: 201 to [place] (NOVOLOG 00 240, 2 u. Medica l FLEXPEN BG 241 to Branch U-100 280, 3 INSULIN) unit. BG 100 unit/mL 281 to (3 mL) 300, 4 injection units. BG > 300, 5 units, recheck in 3 hours and cover with s/s insulin 2021-0 Yes [id number] 160 to Uni vers aspart 2-09 200, 1 u, ity of U-100 00:00: 201 to [place] (NOVOLOG 00 240, 2 u. Medica l FLEXPEN BG 241 to Branch U-100 280, 3 INSULIN) unit. BG 100 unit/mL 281 to (3 mL) 300, 4 injection units. BG > 300, 5 units, recheck in 3 hours and cover with s/s insulin 2021-0 Yes [id number] 160 to Uni vers aspart 2-09 200, 1 u, ity of U-100 00:00: 201 to [place] (NOVOLOG 00 240, 2 u. Medica l FLEXPEN BG 241 to Branch U-100 280, 3 INSULIN) unit. BG 100 unit/mL 281 to (3 mL) 300, 4 injection units. BG > 300, 5 units, recheck in 3 hours and cover with s/s insulin 2022-0 Yes [id number] 160 to Uni vers aspart 2-09 200, 1 u, ity of U-100 00:00: 201 to [place] (NOVOLOG 00 240, 2 u. Medica l FLEXPEN BG 241 to Branch U-100 280, 3 INSULIN) unit. BG 100 unit/mL 281 to (3 mL) 300, 4 injection units. BG > 300, 5 units, recheck in 3 hours and cover with s/s insulin 2022-0 Yes [id number] 160 to Uni vers aspart 2-09 200, 1 u, ity of U-100 00:00: 201 to [place] (NOVOLOG 00 240, 2 u. Medica l FLEXPEN BG 241 to Branch U-100 280, 3 INSULIN) unit. BG 100 unit/mL 281 to (3 mL) 300, 4 injection units. BG > 300, 5 units, recheck in 3 hours and cover with s/s insulin 2022-0 Yes [id number] 160 to Uni vers aspart 2-09 200, 1 u, ity of U-100 00:00: 201 to [place] (NOVOLOG 00 240, 2 u. Medica l FLEXPEN BG 241 to Branch U-100 280, 3 INSULIN) unit. BG 100 unit/mL 281 to (3 mL) 300, 4 injection units. BG > 300, 5 units, recheck in 3 hours and cover with s/s insulin 202-0 Yes [id number] 160 to Uni vers aspart 2-09 200, 1 u, ity of U-100 00:00: 201 to [place] (NOVOLOG 00 240, 2 u. Medica l FLEXPEN BG 241 to Branch U-100 280, 3 INSULIN) unit. BG 100 unit/mL 281 to (3 mL) 300, 4 injection units. BG > 300, 5 units, recheck in 3 hours and cover with s/s insulin 2021-0 Yes [id number] 160 to Uni vers aspart 2-09 200, 1 u, ity of U-100 00:00: 201 to [place] (NOVOLOG 00 240, 2 u. Medica l FLEXPEN BG 241 to Branch U-100 280, 3 INSULIN) unit. BG 100 unit/mL 281 to (3 mL) 300, 4 injection units. BG > 300, 5 units, recheck in 3 hours and cover with s/s insulin 2021-0 Yes [id number] 160 to Uni vers aspart 2-09 200, 1 u, ity of U-100 00:00: 201 to [place] (NOVOLOG 00 240, 2 u. Medica l FLEXPEN BG 241 to Branch U-100 280, 3 INSULIN) unit. BG 100 unit/mL 281 to (3 mL) 300, 4 injection units. BG > 300, 5 units, recheck in 3 hours and cover with s/s insulin 2022-0 Yes [id number] 160 to Uni vers aspart 2-09 200, 1 u, ity of U-100 00:00: 201 to [place] (NOVOLOG 00 240, 2 u. Medica l FLEXPEN BG 241 to Branch U-100 280, 3 INSULIN) unit. BG 100 unit/mL 281 to (3 mL) 300, 4 injection units. BG > 300, 5 units, recheck in 3 hours and cover with s/s insulin 202-0 Yes [id number] 160 to Uni vers aspart 2-09 200, 1 u, ity of U-100 00:00: 201 to [place] (NOVOLOG 00 240, 2 u. Medica l FLEXPEN BG 241 to Branch U-100 280, 3 INSULIN) unit. BG 100 unit/mL 281 to (3 mL) 300, 4 injection units. BG > 300, 5 units, recheck in 3 hours and cover with s/s insulin 2021-0 Yes [id number] 160 to Uni vers aspart 2-09 200, 1 u, ity of U-100 00:00: 201 to [place] (NOVOLOG 00 240, 2 u. Medica l FLEXPEN BG 241 to Branch U-100 280, 3 INSULIN) unit. BG 100 unit/mL 281 to (3 mL) 300, 4 injection units. BG > 300, 5 units, recheck in 3 hours and cover with s/s insulin 2021-0 Yes [id number] 160 to Uni vers aspart 2-09 200, 1 u, ity of U-100 00:00: 201 to [place] (NOVOLOG 00 240, 2 u. Medica l FLEXPEN BG 241 to Branch U-100 280, 3 INSULIN) unit. BG 100 unit/mL 281 to (3 mL) 300, 4 injection units. BG > 300, 5 units, recheck in 3 hours and cover with s/s insulin 2021-0 Yes [id number] 160 to Uni vers aspart 2-09 200, 1 u, ity of U-100 00:00: 201 to [place] (NOVOLOG 00 240, 2 u. Medica l FLEXPEN BG 241 to Branch U-100 280, 3 INSULIN) unit. BG 100 unit/mL 281 to (3 mL) 300, 4 injection units. BG > 300, 5 units, recheck in 3 hours and cover with s/s insulin 2022-0 Yes [id number] 160 to Uni vers aspart 2-09 200, 1 u, ity of U-100 00:00: 201 to [place] (NOVOLOG 00 240, 2 u. Medica l FLEXPEN BG 241 to Branch U-100 280, 3 INSULIN) unit. BG 100 unit/mL 281 to (3 mL) 300, 4 injection units. BG > 300, 5 units, recheck in 3 hours and cover with s/s insulin 2022-0 Yes [id number] 160 to Uni vers aspart 2-09 200, 1 u, ity of U-100 00:00: 201 to [place] (NOVOLOG 00 240, 2 u. Medica l FLEXPEN BG 241 to Branch U-100 280, 3 INSULIN) unit. BG 100 unit/mL 281 to (3 mL) 300, 4 injection units. BG > 300, 5 units, recheck in 3 hours and cover with s/s insulin 2021-0 Yes [id number] 160 to Uni vers aspart 2-09 200, 1 u, ity of U-100 00:00: 201 to [place] (NOVOLOG 00 240, 2 u. Medica l FLEXPEN BG 241 to Branch U-100 280, 3 INSULIN) unit. BG 100 unit/mL 281 to (3 mL) 300, 4 injection units. BG > 300, 5 units, recheck in 3 hours and cover with s/s insulin 2021-0 Yes [id number] 160 to Uni vers aspart 2-09 200, 1 u, ity of U-100 00:00: 201 to [place] (NOVOLOG 00 240, 2 u. Medica l FLEXPEN BG 241 to Branch U-100 280, 3 INSULIN) unit. BG 100 unit/mL 281 to (3 mL) 300, 4 injection units. BG > 300, 5 units, recheck in 3 hours and cover with s/s insulin 2021-0 Yes [id number] 160 to Uni vers aspart 2-09 200, 1 u, ity of U-100 00:00: 201 to [place] (NOVOLOG 00 240, 2 u. Medica l FLEXPEN BG 241 to Branch U-100 280, 3 INSULIN) unit. BG 100 unit/mL 281 to (3 mL) 300, 4 injection units. BG > 300, 5 units, recheck in 3 hours and cover with s/s insulin 2022-0 Yes [id number] 160 to Uni vers aspart 2-09 200, 1 u, ity of U-100 00:00: 201 to [place] (NOVOLOG 00 240, 2 u. Medica l FLEXPEN BG 241 to Branch U-100 280, 3 INSULIN) unit. BG 100 unit/mL 281 to (3 mL) 300, 4 injection units. BG > 300, 5 units, recheck in 3 hours and cover with s/s insulin 2021-0 Yes [id number] 160 to Uni vers aspart 2-09 200, 1 u, ity of U-100 00:00: 201 to [place] (NOVOLOG 00 240, 2 u. Medica l FLEXPEN BG 241 to Branch U-100 280, 3 INSULIN) unit. BG 100 unit/mL 281 to (3 mL) 300, 4 injection units. BG > 300, 5 units, recheck in 3 hours and cover with s/s insulin 202-0 Yes [id number] 160 to Uni vers aspart 2-09 200, 1 u, ity of U-100 00:00: 201 to [place] (NOVOLOG 00 240, 2 u. Medica l FLEXPEN BG 241 to Branch U-100 280, 3 INSULIN) unit. BG 100 unit/mL 281 to (3 mL) 300, 4 injection units. BG > 300, 5 units, recheck in 3 hours and cover with s/s insulin 2021-0 Yes [id number] 160 to Uni vers aspart 2-09 200, 1 u, ity of U-100 00:00: 201 to [place] (NOVOLOG 00 240, 2 u. Medica l FLEXPEN BG 241 to Branch U-100 280, 3 INSULIN) unit. BG 100 unit/mL 281 to (3 mL) 300, 4 injection units. BG > 300, 5 units, recheck in 3 hours and cover with s/s insulin 2021-0 Yes [id number] 160 to Uni vers aspart 2-09 200, 1 u, ity of U-100 00:00: 201 to [place] (NOVOLOG 00 240, 2 u. Medica l FLEXPEN BG 241 to Branch U-100 280, 3 INSULIN) unit. BG 100 unit/mL 281 to (3 mL) 300, 4 injection units. BG > 300, 5 units, recheck in 3 hours and cover with s/s insulin 2021-0 Yes [id number] 160 to Uni vers aspart 2-09 200, 1 u, ity of U-100 00:00: 201 to [place] (NOVOLOG 00 240, 2 u. Medica l FLEXPEN BG 241 to Branch U-100 280, 3 INSULIN) unit. BG 100 unit/mL 281 to (3 mL) 300, 4 injection units. BG > 300, 5 units, recheck in 3 hours and cover with s/s insulin 2021- No [id number] inject 20 [facility] glargine 2-09 10-25 Units ity of ([place] 00:00: 00:[place] U-100 00 :00 skin twice Medical INSULIN) a day. Branch 100 unit/mL injection insulin 2021- No [id number] inject 20 [facility] glargine 2-09 10-25 Units ity of ([place] 00:00: 00:00 [place] U-100 00 :00 skin twice Medical INSULIN) a day. Branch 100 unit/mL injection insulin 2021- No [id number] inject 20 [facility] glargine 2-09 10-25 Units ity of ([place] 00:00: 00:00 [place] U-100 00 :00 skin twice Medical INSULIN) a day. Branch 100 unit/mL injection lipase-prot Yes [id number] 1{capsu Take 1 [facility] ease-amylas 2-03 le} capsule by it y of e (CREON) 00:00: mouth 3 [place] 36,000-114, 00 (three) Medic al 000- times Branch 180,000 daily with unit CpDR meals. lipase-prot Yes [id number] 1{capsu Take 1 [facility] ease-amylas 2-03 le} capsule by it y of e (CREON) 00:00: mouth 3 [place] 36,000-114, 00 (three) Medic al 000- times Branch 180,000 daily with unit CpDR meals. lipase-prot Yes [id number] 1{capsu Take 1 [facility] ease-amylas 2-03 le} capsule by it y of e (CREON) 00:00: mouth 3 [place] 36,000-114, 00 (three) Medic al 000- times Branch 180,000 daily with unit CpDR meals. lipase-prot Yes [id number] 1{capsu Take 1 [facility] ease-amylas 2-03 le} capsule by it y of e (CREON) 00:00: mouth 3 [place] 36,000-114, 00 (three) Medic al 000- times Branch 180,000 daily with unit CpDR meals. lipase-prot Yes [id number] 1{capsu Take 1 [facility] ease-amylas 2-03 le} capsule by it y of e (CREON) 00:00: mouth 3 [place] 36,000-114, 00 (three) Medic al 000- times Branch 180,000 daily with unit CpDR meals. lipase-prot Yes [id number] 1{capsu Take 1 [facility] ease-amylas 2-03 le} capsule by it y of e (CREON) 00:00: mouth 3 [place] 36,000-114, 00 (three) Medic al 000- times Branch 180,000 daily with unit CpDR meals. lipase-prot Yes [id number] 1{capsu Take 1 [facility] ease-amylas 2-03 le} capsule by it y of e (CREON) 00:00: mouth 3 [place] 36,000-114, 00 (three) Medic al 000- times Branch 180,000 daily with unit CpDR meals. lipase-prot Yes [id number] 1{capsu Take 1 [facility] ease-amylas 2-03 le} capsule by it y of e (CREON) 00:00: mouth 3 [place] 36,000-114, 00 (three) Medic al 000- times Branch 180,000 daily with unit CpDR meals. lipase-prot Yes [id number] 1{capsu Take 1 [facility] ease-amylas 2-03 le} capsule by it y of e (CREON) 00:00: mouth 3 [place] 36,000-114, 00 (three) Medic al 000- times Branch 180,000 daily with unit CpDR meals. lipase-prot Yes [id number] 1{capsu Take 1 [facility] ease-amylas 2-03 le} capsule by it y of e (CREON) 00:00: mouth 3 [place] 36,000-114, 00 (three) Medic al 000- times Branch 180,000 daily with unit CpDR meals. lipase-prot Yes [id number] 1{capsu Take 1 [facility] ease-amylas 2-03 le} capsule by it y of e (CREON) 00:00: mouth 3 [place] 36,000-114, 00 (three) Medic al 000- times Branch 180,000 daily with unit CpDR meals. lipase-prot Yes [id number] 1{capsu Take 1 [facility] ease-amylas 2-03 le} capsule by it y of e (CREON) 00:00: mouth 3 [place] 36,000-114, 00 (three) Medic al 000- times Branch 180,000 daily with unit CpDR meals. lipase-prot Yes [id number] 1{capsu Take 1 [facility] ease-amylas 2-03 le} capsule by it y of e (CREON) 00:00: mouth 3 [place] 36,000-114, 00 (three) Medic al 000- times Branch 180,000 daily with unit CpDR meals. lipase-prot Yes [id number] 1{capsu Take 1 [facility] ease-amylas 2-03 le} capsule by it y of e (CREON) 00:00: mouth 3 [place] 36,000-114, 00 (three) Medic al 000- times Branch 180,000 daily with unit CpDR meals. lipase-prot Yes [id number] 1{capsu Take 1 [facility] ease-amylas 2-03 le} capsule by it y of e (CREON) 00:00: mouth 3 [place] 36,000-114, 00 (three) Medic al 000- times Branch 180,000 daily with unit CpDR meals. lipase-prot Yes [id number] 1{capsu Take 1 [facility] ease-amylas 2-03 le} capsule by it y of e (CREON) 00:00: mouth 3 [place] 36,000-114, 00 (three) Medic al 000- times Branch 180,000 daily with unit CpDR meals. lipase-prot Yes [id number] 1{capsu Take 1 [facility] ease-amylas 2-03 le} capsule by it y of e (CREON) 00:00: mouth 3 [place] 36,000-114, 00 (three) Medic al 000- times Branch 180,000 daily with unit CpDR meals. lipase-prot Yes [id number] 1{capsu Take 1 [facility] 2-[facility] le} capsule by it y of e (CRE[facility]) 00:00: mouth 3 [place] 36,000-114, 00 (three) Medic al 000- times Branch 180,000 daily with unit CpDR meals. lipase-prot Yes [id number] 1{capsu Take 1 [facility] 2-03 le} capsule by it y of e (CREON) 00:00: mouth 3 [place] 36,000-114, 00 (three) Medic al 000- times Branch 180,000 daily with unit CpDR meals. lipase-prot Yes [id number] 1{capsu Take 1 [facility] 2-03 le} capsule by it y of e (CREON) 00:00: mouth 3 [place] 36,000-114, 00 (three) Medic al 000- times Branch 180,000 daily with unit CpDR meals. lipase-prot Yes [id number] 1{capsu Take 1 [facility] 2-03 le} capsule by it y of e (CREON) 00:00: mouth 3 [place] 36,000-114, 00 (three) Medic al 000- times Branch 180,000 daily with unit CpDR meals. lipase-prot Yes [id number] 1{capsu Take 1 [facility] 2-03 le} capsule by it y of e (CREON) 00:00: mouth 3 [place] 36,000-114, 00 (three) Medic al 000- times Branch 180,000 daily with unit CpDR meals. lipase-prot Yes [id number] 1{capsu Take 1 [facility] 2-03 le} capsule by it y of e (CREON) 00:00: mouth 3 [place] 36,000-114, 00 (three) Medic al 000- times Branch 180,000 daily with unit CpDR meals. lipase-prot Yes [id number] 1{capsu Take 1 [facility] 2-03 le} capsule by it y of e (CRE[facility]) 00:00: mouth 3 [place] 36,000-114, 00 (three) Medic al 000- times Branch 180,000 daily with unit CpDR meals. lipase-prot Yes [id number] 1{capsu Take 1 [facility] 2-03 le} capsule by it y of e (CREON) 00:00: mouth 3 [place] 36,000-114, 00 (three) Medic al 000- times Branch 180,000 daily with unit CpDR meals. lipase-prot Yes [id number] 1{capsu Take 1 [facility] 2-03 le} capsule by it y of e (CREON) 00:00: mouth 3 [place] 36,000-114, 00 (three) Medic al 000- times Branch 180,000 daily with unit CpDR meals. lipase-prot Yes [id number] 1{capsu Take 1 [facility] 2-03 le} capsule by it y of e (CREON) 00:00: mouth 3 [place] 36,000-114, 00 (three) Medic al 000- times Branch 180,000 daily with unit CpDR meals. lipase-prot Yes [id number] 1{capsu Take 1 [facility] 2-03 le} capsule by it y of e (CREON) 00:00: mouth 3 [place] 36,000-114, 00 (three) Medic al 000- times Branch 180,000 daily with unit CpDR meals. lipase-prot Yes [id number] 1{capsu Take 1 [facility] 2-03 le} capsule by it y of e (CREON) 00:00: mouth 3 [place] 36,000-114, 00 (three) Medic al 000- times Branch 180,000 daily with unit CpDR meals. lipase-prot Yes [id number] 1{capsu Take 1 [facility] 2-03 le} capsule by it y of e (CRE[facility]) 00:00: mouth 3 [place] 36,000-114, 00 (three) Medic al 000- times Branch 180,000 daily with unit CpDR meals. lipase-prot Yes [id number] 1{capsu Take 1 [facility] 2-03 le} capsule by it y of e (CREON) 00:00: mouth 3 [place] 36,000-114, 00 (three) Medic al 000- times Branch 180,000 daily with unit CpDR meals. lipase-prot Yes [id number] 1{capsu Take 1 [facility] 2-03 le} capsule by it y of e (CREON) 00:00: mouth 3 [place] 36,000-114, 00 (three) Medic al 000- times Branch 180,000 daily with unit CpDR meals. lipase-prot 2021-0 Yes [id number] 1{capsu Take 1 [facility] 2-03 le} capsule by it y of e (CREON) 00:00: mouth 3 [place] 36,000-114, 00 (three) Medic al 000- times Branch 180,000 daily with unit CpDR meals. lipase-prot Yes [id number] 1{capsu Take 1 [facility] 2-03 le} capsule by it y of e (CREON) 00:00: mouth 3 [place] 36,000-114, 00 (three) Medic al 000- times Branch 180,000 daily with unit CpDR meals. lipase-prot Yes [id number] 1{capsu Take 1 [facility] 2-03 le} capsule by it y of e (CREON) 00:00: mouth 3 [place] 36,000-114, 00 (three) Medic al 000- times Branch 180,000 daily with unit CpDR meals. lipase-prot Yes [id number] 1{capsu Take 1 [facility] 2-03 le} capsule by it y of e (CREON) 00:00: mouth 3 [place] 36,000-114, 00 (three) Medic al 000- times Branch 180,000 daily with unit CpDR meals. lipase-prot Yes [id number] 1{capsu Take 1 [facility] 2-03 le} capsule by it y of e (CRE[facility]) 00:00: mouth 3 [place] 36,000-114, 00 (three) Medic al 000- times Branch 180,000 daily with unit CpDR meals. lipase-prot Yes [id number] 1{capsu Take 1 [facility] 2-03 le} capsule by it y of e (CRE[facility]) 00:00: mouth 3 [place] 36,000-114, 00 (three) Medic al 000- times Branch 180,000 daily with unit CpDR meals. lipase-prot Yes [id number] 1{capsu Take 1 [facility] 2-03 le} capsule by it y of e (CREON) 00:00: mouth 3 [place] 36,000-114, 00 (three) Medic al 000- times Branch 180,000 daily with unit CpDR meals. lipase-prot Yes [id number] 1{capsu Take 1 [facility] 2-03 le} capsule by it y of e (CREON) 00:00: mouth 3 [place] 36,000-114, 00 (three) Medic al 000- times Branch 180,000 daily with unit CpDR meals. lipase-prot 2020-0 Yes [id number] 1{capsu Take 1 [facility] 2-[facility] le} [...] unit/mL 23 skin l injection daily. (vial) insulin 2020-0 Yes 10U Inject 10 Metho [...] [facility] mg 23 l tablet metoprolol 2020-0 Yes 25mg QD Take 25 [...] l RUPA 14 DAY SENSOR) kit CONTOUR 2019- Yes [id number] Use to [facility] ers NEXT TEST 11-05 check ity of STRIPS 00:00: glucose 4X [place] strip 00 daily. Medical DX:E08.65 Branch CONTOUR 2019-0 Yes [id number] Use to [facility] ers NEXT TEST 11-05 check ity of STRIPS 00:00: glucose 4X [place] strip 00 daily. Medical DX:E08.65 Branch CONTOUR 2019-0 Yes [id number] Use to [facility] ers NEXT TEST 11-05 check ity of STRIPS 00:00: glucose 4X [place] strip 00 daily. Medical DX:E08.65 Branch CONTOUR 2019- Yes [id number] Use to [facility] ers NEXT TEST 11-05 check ity of STRIPS 00:00: glucose 4X [place] strip 00 daily. Medical DX:E08.65 Branch CONTOUR 2019- Yes [id number] Use to Univ ers NEXT TEST 11-05 check ity of STRIPS 00:00: glucose 4X [place] strip 00 daily. Medical DX:E08.65 Branch CONTOUR 2019- Yes [id number] Use to Univ ers NEXT TEST 11-05 check ity of STRIPS 00:00: glucose 4X [place] strip 00 daily. Medical DX:E08.65 Branch CONTOUR 2019-0 Yes [id number] Use to Univ ers NEXT TEST 11-05 check ity of STRIPS 00:00: glucose 4X [place] strip 00 daily. Medical DX:E08.65 Branch CONTOUR 2019- Yes [id number] Use to [facility] ers NEXT TEST 11-05 check ity of STRIPS 00:00: glucose 4X [place] strip 00 daily. Medical DX:E08.65 Branch CONTOUR 2019- Yes [id number] Use to Univ ers NEXT TEST 11-05 check ity of STRIPS 00:00: glucose 4X [place] strip 00 daily. Medical DX:E08.65 Branch CONTOUR 2019-0 Yes [id number] Use to Univ ers NEXT TEST 11-05 check ity of STRIPS 00:00: glucose 4X [place] strip 00 daily. Medical DX:E08.65 Branch CONTOUR 2019-0 Yes [id number] Use to [facility] ers NEXT TEST 11-05 check ity of STRIPS 00:00: glucose 4X [place] strip 00 daily. Medical DX:E08.65 Branch CONTOUR 2019-0 Yes [id number] Use to Univ ers NEXT TEST 11-05 check ity of STRIPS 00:00: glucose 4X [place] strip 00 daily. Medical DX:E08.65 Branch CONTOUR 2019- Yes [id number] Use to [facility] ers NEXT TEST 11-05 check ity of STRIPS 00:00: glucose 4X [place] strip 00 daily. Medical DX:E08.65 Branch CONTOUR 2019- Yes [id number] Use to [facility] ers NEXT TEST 11-05 check ity of STRIPS 00:00: glucose 4X [place] strip 00 daily. Medical DX:E08.65 Branch CONTOUR 2019- Yes [id number] Use to [facility] ers NEXT TEST 11-05 check ity of STRIPS 00:00: glucose 4X [place] strip 00 daily. Medical DX:E08.65 Branch CONTOUR Yes [id number] Use to [facility] ers NEXT TEST 11-05 check ity of STRIPS 00:00: glucose 4X [place] strip 00 daily. Medical DX:E08.65 Branch CONTOUR Yes [id number] Use to [facility] ers NEXT TEST 11-05 check ity of STRIPS 00:00: glucose 4X [place] strip 00 daily. Medical DX:E08.65 Branch CONTOUR Yes [id number] Use to [facility] ers NEXT TEST 11-05 check ity of STRIPS 00:00: glucose 4X [place] strip 00 daily. Medical DX:E08.65 Branch CONTOUR Yes [id number] Use to [facility] ers NEXT TEST 11-05 check ity of STRIPS 00:00: glucose 4X [place] strip 00 daily. Medical DX:E08.65 Branch CONTOUR Yes [id number] Use to [facility] ers NEXT TEST 11-05 check ity of STRIPS 00:00: glucose 4X [place] strip 00 daily. Medical DX:E08.65 Branch CONTOUR Yes [id number] Use to [facility] ers NEXT TEST 11-05 check ity of STRIPS 00:00: glucose 4X [place] strip 00 daily. Medical DX:E08.65 Branch CONTOUR 2019- Yes [id number] Use to [facility] ers NEXT TEST 11-05 check ity of STRIPS 00:00: glucose 4X [place] strip 00 daily. Medical DX:E08.65 Branch CONTOUR 2019- Yes [id number] Use to [facility] ers NEXT TEST 11-05 check ity of STRIPS 00:00: glucose 4X [place] strip 00 daily. Medical DX:E08.65 Branch CONTOUR 2019- Yes [id number] Use to [facility] ers NEXT TEST 11-05 check ity of STRIPS 00:00: glucose 4X [place] strip 00 daily. Medical DX:E08.65 Branch CONTOUR 2018- Yes [id number] Use to Univ ers NEXT TEST 11-05 check ity of STRIPS 00:00: glucose 4X [place] strip 00 daily. Medical DX:E08.65 Branch CONTOUR 2019- Yes [id number] Use to Univ ers NEXT TEST 11-05 check ity of STRIPS 00:00: glucose 4X [place] strip 00 daily. Medical DX:E08.65 Branch CONTOUR 2018- Yes [id number] Use to Univ ers NEXT TEST 11-05 check ity of STRIPS 00:00: glucose 4X [place] strip 00 daily. Medical DX:E08.65 Branch CONTOUR Yes [id number] Use to Univ ers NEXT TEST 11-05 check ity of STRIPS 00:00: glucose 4X [place] strip 00 daily. Medical DX:E08.65 Branch CONTOUR Yes [id number] Use to Univ ers NEXT TEST 11-05 check ity of STRIPS 00:00: glucose 4X [place] strip 00 daily. Medical DX:E08.65 Branch CONTOUR Yes [id number] Use to Univ ers NEXT TEST 11-05 check ity of STRIPS 00:00: glucose 4X [place] strip 00 daily. Medical DX:E08.65 Branch CONTOUR Yes [id number] Use to Univ ers NEXT TEST 11-05 check ity of STRIPS 00:00: glucose 4X [place] strip 00 daily. Medical DX:E08.65 Branch CONTOUR Yes [id number] Use to Univ ers NEXT TEST 11-05 check ity of STRIPS 00:00: glucose 4X [place] strip 00 daily. Medical DX:E08.65 Branch CONTOUR Yes [id number] Use to Univ ers NEXT TEST 11-05 check ity of STRIPS 00:00: glucose 4X [place] strip 00 daily. Medical DX:E08.65 Branch CONTOUR 2019- Yes [id number] Use to Univ ers NEXT TEST 11-05 check ity of STRIPS 00:00: glucose 4X [place] strip 00 daily. Medical DX:E08.65 Branch CONTOUR 2019- Yes [id number] Use to Univ ers NEXT TEST 11-05 check ity of STRIPS 00:00: glucose 4X [place] strip 00 daily. Medical DX:E08.65 Branch CONTOUR 2019- Yes [id number] Use to Univ ers NEXT TEST 11-05 check ity of STRIPS 00:00: glucose 4X [place] strip 00 daily. Medical DX:E08.65 Branch CONTOUR 2019-0 Yes [id number] Use to Univ ers NEXT TEST 5 check ity of STRIPS 00:00: glucose 4X [place] strip 00 daily. Medical DX:E08.65 Branch CONTOUR 2019-0 Yes [id number] Use to Univ ers NEXT TEST 5 check ity of STRIPS 00:00: glucose 4X [place] strip 00 daily. Medical DX:E08.65 Branch CONTOUR 2019-0 Yes [id number] Use to Univ ers NEXT TEST 11-05 check ity of STRIPS 00:00: glucose 4X [place] strip 00 daily. Medical DX:E08.65 Branch CONTOUR 2019-0 Yes [id number] Use to Univ ers NEXT TEST 11-05 check ity of STRIPS 00:00: glucose 4X [place] strip 00 daily. Medical DX:E08.65 Branch CONTOUR 2019- Yes [id number] Use to Univ ers NEXT TEST 11-05 check ity of STRIPS 00:00: glucose 4X [place] strip 00 daily. Medical DX:E08.65 Branch flash 2018-0 Yes [id number] 1{each} 1 Each Uni vers glucose 3-15 daily. Dx ity of scanning 00:00: 11.8, E [place] reader Misc 00 16.2, K Medic al 86.89 Branch flash 2018-0 Yes [id number] 1{each} 1 Each Uni vers glucose 3-15 every 10 ity of sensor Kit 00:00: () days. Dx Medical 11.8, E Branch 16.2, K 86.89 flash 2019-0 Yes [id number] 1{each} 1 Each Uni vers glucose 3-15 daily. Dx ity of scanning 00:00: 11.8, E [place] reader Misc 00 16.2, K Medic al 86.89 Branch flash 2019-0 Yes [id number] 1{each} 1 Each Uni vers glucose 3-15 every 10 ity of sensor Kit 00:00: () 00 days. Dx Medical 11.8, E Branch 16.2, K 86.89 flash 2019-0 Yes [id number] 1{each} 1 Each Uni vers glucose 3-15 daily. Dx ity of scanning 00:00: 11.8, E [place] reader Misc 00 16.2, K Medic al 86.89 Branch flash 2019-0 Yes [id number] 1{each} 1 Each Uni vers glucose 3-15 every 10 ity of sensor Kit 00:00: () 00 days. Dx Medical 11.8, E Branch 16.2, K 86.89 flash 2019-0 Yes [id number] 1{each} 1 Each Uni vers glucose 3-15 daily. Dx ity of scanning 00:00: 11.8, E [place] reader Misc 00 16.2, K Medic al 86.89 Branch flash 2019-0 Yes [id number] 1{each} 1 Each Uni vers glucose 3-15 every 10 ity of sensor Kit 00:00: () 00 days. Dx Medical 11.8, E Branch 16.2, K 86.89 flash 2019-0 Yes [id number] 1{each} 1 Each Uni vers glucose 3-15 daily. Dx ity of scanning 00:00: 11.8, E [place] reader Misc 00 16.2, K Medic al 86.89 Branch flash 2019-0 Yes [id number] 1{each} 1 Each Uni vers glucose 3-15 every 10 ity of sensor Kit 00:00: () 00 days. Dx Medical 11.8, E Branch 16.2, K 86.89 flash 2019-0 Yes [id number] 1{each} 1 Each Uni vers glucose 3-15 daily. Dx ity of scanning 00:00: 11.8, E [place] reader Misc 00 16.2, K Medic al 86.89 Branch flash 2019-0 Yes [id number] 1{each} 1 Each Uni vers glucose 3-15 every 10 ity of sensor Kit 00:00: () 00 days. Dx Medical 11.8, E Branch 16.2, K 86.89 flash 2019-0 Yes [id number] 1{each} 1 Each Uni vers glucose 3-15 daily. Dx ity of scanning 00:00: 11.8, E [place] reader Misc 00 16.2, K Medic al 86.89 Branch flash 2019-0 Yes [id number] 1{each} 1 Each Uni vers glucose 3-15 every 10 ity of sensor Kit 00:00: () 00 days. Dx Medical 11.8, E Branch 16.2, K 86.89 flash 2019-0 Yes [id number] 1{each} 1 Each Uni vers glucose 3-15 daily. Dx ity of scanning 00:00: 11.8, E [place] reader Misc 00 16.2, K Medic al 86.89 Branch flash 2019-0 Yes [id number] 1{each} 1 Each Uni vers glucose 3-15 every 10 ity of sensor Kit 00:00: () 00 days. Dx Medical 11.8, E Branch 16.2, K 86.89 flash 2019-0 Yes [id number] 1{each} 1 Each Uni vers glucose 3-15 daily. Dx ity of scanning 00:00: 11.8, E [place] reader Misc 00 16.2, K Medic al 86.89 Branch flash 2019-0 Yes [id number] 1{each} 1 Each Uni vers glucose 3-15 every 10 ity of sensor Kit 00:00: () 00 days. Dx Medical 11.8, E Branch 16.2, K 86.89 flash 2019-0 Yes [id number] 1{each} 1 Each Uni vers glucose 3-15 daily. Dx ity of scanning 00:00: 11.8, E [place] reader Misc 00 16.2, K Medic al 86.89 Branch flash 2019-0 Yes [id number] 1{each} 1 Each Uni vers glucose 3-15 every 10 ity of sensor Kit 00:00: () 00 days. Dx Medical 11.8, E Branch 16.2, K 86.89 flash 2019-0 Yes [id number] 1{each} 1 Each Uni vers glucose 3-15 daily. Dx ity of scanning 00:00: 11.8, E [place] reader Misc 00 16.2, K Medic al 86.89 Branch flash 2019-0 Yes [id number] 1{each} 1 Each Uni vers glucose 3-15 every 10 ity of sensor Kit 00:00: () 00 days. Dx Medical 11.8, E Branch 16.2, K 86.89 flash 2019-0 Yes [id number] 1{each} 1 Each Uni vers glucose 3-15 daily. Dx ity of scanning 00:00: 11.8, E [place] reader Misc 00 16.2, K Medic al 86.89 Branch flash 2019-0 Yes [id number] 1{each} 1 Each Uni vers glucose 3-15 every 10 ity of sensor Kit 00:00: () 00 days. Dx Medical 11.8, E Branch 16.2, K 86.89 flash 2019-0 Yes [id number] 1{each} 1 Each Uni vers glucose 3-15 daily. Dx ity of scanning 00:00: 11.8, E [place] reader Misc 00 16.2, K Medic al 86.89 Branch flash 2019-0 Yes [id number] 1{each} 1 Each Uni vers glucose 3-15 every 10 ity of sensor Kit 00:00: () 00 days. Dx Medical 11.8, E Branch 16.2, K 86.89 flash 2019-0 Yes [id number] 1{each} 1 Each Uni vers glucose 3-15 daily. Dx ity of scanning 00:00: 11.8, E [place] reader Misc 00 16.2, K Medic al 86.89 Branch flash 2019-0 Yes [id number] 1{each} 1 Each Uni vers glucose 3-15 every 10 ity of sensor Kit 00:00: () 00 days. Dx Medical 11.8, E Branch 16.2, K 86.89 flash 2019-0 Yes [id number] 1{each} 1 Each Uni vers glucose 3-15 daily. Dx ity of scanning 00:00: 11.8, E [place] reader Misc 00 16.2, K Medic al 86.89 Branch flash 2019-0 Yes [id number] 1{each} 1 Each Uni vers glucose 3-15 every 10 ity of sensor Kit 00:00: () 00 days. Dx Medical 11.8, E Branch 16.2, K 86.89 flash 2019-0 Yes [id number] 1{each} 1 Each Uni vers glucose 3-15 daily. Dx ity of scanning 00:00: 11.8, E [place] reader Misc 00 16.2, K Medic al 86.89 Branch flash 2019-0 Yes [id number] 1{each} 1 Each Uni vers glucose 3-15 every 10 ity of sensor Kit 00:00: () 00 days. Dx Medical 11.8, E Branch 16.2, K 86.89 flash 2019-0 Yes [id number] 1{each} 1 Each Uni vers glucose 3-15 daily. Dx ity of scanning 00:00: 11.8, E [place] reader Misc 00 16.2, K Medic al 86.89 Branch flash 2019-0 Yes [id number] 1{each} 1 Each Uni vers glucose 3-15 every 10 ity of sensor Kit 00:00: () 00 days. Dx Medical 11.8, E Branch 16.2, K 86.89 flash 2019-0 Yes [id number] 1{each} 1 Each Uni vers glucose 3-15 daily. Dx ity of scanning 00:00: 11.8, E [place] reader Misc 00 16.2, K Medic al 86.89 Branch flash 2019-0 Yes [id number] 1{each} 1 Each Uni vers glucose 3-15 every 10 ity of sensor Kit 00:00: () 00 days. Dx Medical 11.8, E Branch 16.2, K 86.89 flash 2019-0 Yes [id number] 1{each} 1 Each Uni vers glucose 3-15 daily. Dx ity of scanning 00:00: 11.8, E [place] reader Misc 00 16.2, K Medic al 86.89 Branch flash 2019-0 Yes [id number] 1{each} 1 Each Uni vers glucose 3-15 every 10 ity of sensor Kit 00:00: () 00 days. Dx Medical 11.8, E Branch 16.2, K 86.89 flash 2019-0 Yes [id number] 1{each} 1 Each Uni vers glucose 3-15 daily. Dx ity of scanning 00:00: 11.8, E [place] reader Misc 00 16.2, K Medic al 86.89 Branch flash 2019-0 Yes [id number] 1{each} 1 Each Uni vers glucose 3-15 every 10 ity of sensor Kit 00:00: () 00 days. Dx Medical 11.8, E Branch 16.2, K 86.89 flash 2019-0 Yes [id number] 1{each} 1 Each Uni vers glucose 3-15 daily. Dx ity of scanning 00:00: 11.8, E [place] reader Misc 00 16.2, K Medic al 86.89 Branch flash 2019-0 Yes [id number] 1{each} 1 Each Uni vers glucose 3-15 every 10 ity of sensor Kit 00:00: () 00 days. Dx Medical 11.8, E Branch 16.2, K 86.89 flash 2019-0 Yes [id number] 1{each} 1 Each Uni vers glucose 3-15 daily. Dx ity of scanning 00:00: 11.8, E [place] reader Misc 00 16.2, K Medic al 86.89 Branch flash 2019-0 Yes [id number] 1{each} 1 Each Uni vers glucose 3-15 every 10 ity of sensor Kit 00:00: () 00 days. Dx Medical 11.8, E Branch 16.2, K 86.89 flash 2019-0 Yes [id number] 1{each} 1 Each Uni vers glucose 3-15 daily. Dx ity of scanning 00:00: 11.8, E [place] reader Misc 00 16.2, K Medic al 86.89 Branch flash 2019-0 Yes [id number] 1{each} 1 Each Uni vers glucose 3-15 every 10 ity of sensor Kit 00:00: () 00 days. Dx Medical 11.8, E Branch 16.2, K 86.89 flash 2019-0 Yes [id number] 1{each} 1 Each Uni vers glucose 3-15 daily. Dx ity of scanning 00:00: 11.8, E [place] reader Misc 00 16.2, K Medic al 86.89 Branch flash 2019-0 Yes [id number] 1{each} 1 Each Uni vers glucose 3-15 every 10 ity of sensor Kit 00:00: () 00 days. Dx Medical 11.8, E Branch 16.2, K 86.89 flash 2019-0 Yes [id number] 1{each} 1 Each Uni vers glucose 3-15 daily. Dx ity of scanning 00:00: 11.8, E [place] reader Misc 00 16.2, K Medic al 86.89 Branch flash 2019-0 Yes [id number] 1{each} 1 Each Uni vers glucose 3-15 every 10 ity of sensor Kit 00:00: () 00 days. Dx Medical 11.8, E Branch 16.2, K 86.89 flash 2019-0 Yes [id number] 1{each} 1 Each Uni vers glucose 3-15 daily. Dx ity of scanning 00:00: 11.8, E [place] reader Misc 00 16.2, K Medic al 86.89 Branch flash 2019-0 Yes [id number] 1{each} 1 Each Uni vers glucose 3-15 every 10 ity of sensor Kit 00:00: () 00 days. Dx Medical 11.8, E Branch 16.2, K 86.89 flash 2019-0 Yes [id number] 1{each} 1 Each Uni vers glucose 3-15 daily. Dx ity of scanning 00:00: 11.8, E [place] reader Misc 00 16.2, K Medic al 86.89 Branch flash 2019-0 Yes [id number] 1{each} 1 Each Uni vers glucose 3-15 every 10 ity of sensor Kit 00:00: () 00 days. Dx Medical 11.8, E Branch 16.2, K 86.89 flash 2019-0 Yes [id number] 1{each} 1 Each Uni vers glucose 3-15 daily. Dx ity of scanning 00:00: 11.8, E [place] reader Misc 00 16.2, K Medic al 86.89 Branch flash 2019-0 Yes [id number] 1{each} 1 Each Uni vers glucose 3-15 every 10 ity of sensor Kit 00:00: () 00 days. Dx Medical 11.8, E Branch 16.2, K 86.89 flash 2019-0 Yes [id number] 1{each} 1 Each Uni vers glucose 3-15 daily. Dx ity of scanning 00:00: 11.8, E [place] reader Misc 00 16.2, K Medic al 86.89 Branch flash 2019-0 Yes [id number] 1{each} 1 Each Uni vers glucose 3-15 every 10 ity of sensor Kit 00:00: () 00 days. Dx Medical 11.8, E Branch 16.2, K 86.89 flash 2019-0 Yes [id number] 1{each} 1 Each Uni vers glucose 3-15 daily. Dx ity of scanning 00:00: 11.8, E [place] reader Misc 00 16.2, K Medic al 86.89 Branch flash 2019-0 Yes [id number] 1{each} 1 Each Uni vers glucose 3-15 every 10 ity of sensor Kit 00:00: () 00 days. Dx Medical 11.8, E Branch 16.2, K 86.89 flash 2019-0 Yes [id number] 1{each} 1 Each Uni vers glucose 3-15 daily. Dx ity of scanning 00:00: 11.8, E [place] reader Misc 00 16.2, K Medic al 86.89 Branch flash 2019-0 Yes [id number] 1{each} 1 Each Uni vers glucose 3-15 every 10 ity of sensor Kit 00:00: (ten) 00 days. Dx Medical 11.8, E Branch 16.2, K 86.89 flash 2019-0 Yes [id number] 1{each} 1 Each Uni vers glucose 3-15 daily. Dx ity of scanning 00:00: 11.8, E [place] reader Misc 00 16.2, K Medic al 86.89 Branch flash 2019-0 Yes [id number] 1{each} 1 Each Uni vers glucose 3-15 every 10 ity of sensor Kit 00:00: () 00 days. Dx Medical 11.8, E Branch 16.2, K 86.89 flash 2019-0 Yes [id number] 1{each} 1 Each Uni vers glucose 3-15 daily. Dx ity of scanning 00:00: 11.8, E [place] reader Misc 00 16.2, K Medic al 86.89 Branch flash 2019-0 Yes [id number] 1{each} 1 Each Uni vers glucose 3-15 every 10 ity of sensor Kit 00:00: () 00 days. Dx Medical 11.8, E Branch 16.2, K 86.89 flash 2019-0 Yes [id number] 1{each} 1 Each Uni vers glucose 3-15 daily. Dx ity of scanning 00:00: 11.8, E [place] reader Misc 00 16.2, K Medic al 86.89 Branch flash 2019-0 Yes [id number] 1{each} 1 Each Uni vers glucose 3-15 every 10 ity of sensor Kit 00:00: () 00 days. Dx Medical 11.8, E Branch 16.2, K 86.89 flash 2019-0 Yes [id number] 1{each} 1 Each Uni vers glucose 3-15 daily. Dx ity of scanning 00:00: 11.8, E [place] reader Misc 00 16.2, K Medic al 86.89 Branch flash 2019-0 Yes [id number] 1{each} 1 Each Uni vers glucose 3-15 every 10 ity of sensor Kit 00:00: () 00 days. Dx Medical 11.8, E Branch 16.2, K 86.89 flash 2019-0 Yes [id number] 1{each} 1 Each Uni vers glucose 3-15 daily. Dx ity of scanning 00:00: 11.8, E [place] reader Misc 00 16.2, K Medic al 86.89 Branch flash 2019-0 Yes [id number] 1{each} 1 Each Uni vers glucose 3-15 every 10 ity of sensor Kit 00:00: () 00 days. Dx Medical 11.8, E Branch 16.2, K 86.89 flash 2019-0 Yes [id number] 1{each} 1 Each Uni vers glucose 3-15 daily. Dx ity of scanning 00:00: 11.8, E [place] reader Misc 00 16.2, K Medic al 86.89 Branch flash 2019-0 Yes [id number] 1{each} 1 Each Uni vers glucose 3-15 every 10 ity of sensor Kit 00:00: () 00 days. Dx Medical 11.8, E Branch 16.2, K 86.89 flash 2019-0 Yes [id number] 1{each} 1 Each Uni vers glucose 3-15 daily. Dx ity of scanning 00:00: 11.8, E [place] reader Misc 00 16.2, K Medic al 86.89 Branch flash 2019-0 Yes [id number] 1{each} 1 Each Uni vers glucose 3-15 every 10 ity of sensor Kit 00:00: () 00 days. Dx Medical 11.8, E Branch 16.2, K 86.89 flash 2019-0 Yes [id number] 1{each} 1 Each Uni vers glucose 3-15 daily. Dx ity of scanning 00:00: 11.8, E [place] reader Misc 00 16.2, K Medic al 86.89 Branch flash 2019-0 Yes [id number] 1{each} 1 Each Uni vers glucose 3-15 every 10 ity of sensor Kit 00:00: () 00 days. Dx Medical 11.8, E Branch 16.2, K 86.89 flash 2019-0 Yes [id number] 1{each} 1 Each Uni vers glucose 3-15 daily. Dx ity of scanning 00:00: 11.8, E [place] reader Misc 00 16.2, K Medic al 86.89 Branch flash 2019-0 Yes [id number] 1{each} 1 Each Uni vers glucose 3-15 every 10 ity of sensor Kit 00:00: () 00 days. Dx Medical 11.8, E Branch 16.2, K 86.89 flash 2019-0 Yes [id number] 1{each} 1 Each Uni vers glucose 3-15 daily. Dx ity of scanning 00:00: 11.8, E [place] reader Misc 00 16.2, K Medic al 86.89 Branch flash 2019-0 Yes [id number] 1{each} 1 Each Uni vers glucose 3-15 every 10 ity of sensor Kit 00:00: (ten) [place] 00 days. Dx Medical 11.8, E Branch 16.2, K 86.89 Blood-Gluco 2018-0 Yes Use as Univ ers se Meter 8-14 directed ity of (CONTOUR 00:00: [place] METER) [facility]-Gluco 2017-0 Yes Use as Univ ers se Meter 8-14 directed ity of (CONTOUR 00:00: [place] METER) [facility] 00 Medical Branch Blood-Gluco 2017-0 Yes Use as Univ ers se Meter 8-14 directed ity of (CONTOUR 00:00: [place] METER) [facility] 00 Medical Branch Blood-Gluco 2017-0 Yes Use as Univ ers se Meter 8-14 directed ity of (CONTOUR 00:00: [place] METER) [facility] 00 Medical Branch Blood-Gluco 2017-0 Yes Use as Univ ers se Meter 8-14 directed ity of (CONTOUR 00:00: [place] METER) [facility] 00 Medical Branch Blood-Gluco 2017-0 Yes Use as Univ ers se Meter 8-14 directed ity of (CONTOUR 00:00: [place] METER) [facility] 00 Medical Branch Blood-Gluco 2017-0 Yes Use as Univ ers se Meter 8-14 directed ity of (CONTOUR 00:00: [place] METER) [facility] 00 Medical Branch Blood-Gluco 2017-0 Yes Use as Univ ers se Meter 8-14 directed ity of (CONTOUR 00:00: [place] METER) [facility] 00 Medical Branch Blood-Gluco 2017-0 Yes Use as Univ ers se Meter 8-14 directed ity of (CONTOUR 00:00: [place] METER) [facility] 00 Medical Branch Blood-Gluco 2017-0 Yes Use as Univ ers se Meter 8-14 directed ity of (CONTOUR 00:00: [place] METER) [facility] Blood-Gluco 2017-0 Yes Use as Univ ers se Meter 8-14 directed ity of (CONTOUR 00:00: [place] METER) [facility] Blood-Gluco 2017-0 Yes Use [...] directed ity of (CONTOUR 00:00: [place] METER) [facility] 00 Medical Branch zolpidem 2018-0 Yes 10mg QD Take 10 mg Met hodi (AMBIEN) 5 2-[address] [facility] tablet 00:00: [facility]ly [facility] needed for l sleep. zolpidem 2018-0 Yes 10mg QD Take 10 mg Met [facility] (AMBIEN) 5 2-[address] MG tablet 00:00: nightly [facility] 00 needed for l sleep. zolpidem 2018-0 Yes 10mg QD Take 10 mg Met [facility]odi (AMBIEN) 5 2-[address] MG tablet 00:00: nightly [facility] 00 needed for l sleep. zolpidem 2018-0 Yes 10mg QD Take 10 mg Met [...] Take 1 [place] en-codeine 2-22 tablet by (TYLENOL/CO 00:00: mouth DEINE #3) 00 every 4 300-30 mg hours as per tablet needed for Pain. acetaminoph 2013-06 Yes Abscess 1{tbl} Take 1 [place] en-codeine 2-22 tablet by [facility] (TYLENOL/CO 00:00: mouth DEINE #3) 00 every 4 300-30 mg hours as per tablet needed for Pain. acetaminoph 2013-06 Yes Abscess 1{tbl} Take 1 [place] en-codeine 2-22 tablet by [facility] (TYLENOL/CO 00:00: mouth DEINE #3) 00 every 4 300-30 mg hours as per tablet needed for Pain. acetaminoph 2013-06 Yes Abscess 1{tbl} Take 1 [place] en-codeine 2-22 tablet by [facility] (TYLENOL/CO 00:00: mouth DEINE #3) 00 every 4 300-30 mg hours as per tablet needed for Pain. ibuprofen 2013-06 Yes Cellulitis 400mg Take 1 [place] (MOTRIN) 2-10 tablet by [facility] 400 mg 00:00: mouth tablet 00 every [...] Take 1 [place] (MOTRIN) 2-10 tablet by [facility] 400 mg 00:00: mouth tablet 00 every [...] Immunizations Ordered Filled Immunization Date Status Comments [facility] e Immunization Name Name Pneumococcal 2022-03-31 Completed Universit y of Conjugate, PCV20 00:00:00 [place] [facility] (Prevnar 20) Branch SARS-COV-2 COVID-19 2022-03-31 Completed Unive rsity of JASPER-SUCROSE 00:00:00 [place] [facility] VACCINE 12 YRS+, Branch BIVALENT 0.3ML, IM, (PFIZER ROGER TOP BOOSTER) Pneumococcal 20 2022-03-31 Completed Universit y of Conjugate, PCV20 00:00:00 [place] [facility] (Prevnar 20) Branch SARS-COV-2 COVID-19 2022-03-31 Completed Unive rsity of JASPER-SUCROSE 00:00:00 [place] [facility] VACCINE 12 YRS+, Branch BIVALENT 0.3ML, IM, (PFIZER ROGER TOP BOOSTER) Pneumococcal 20 2022-03-31 Completed Universit y of Conjugate, PCV20 00:00:[address] [facility] dical (Prevnar 20) Branch SARS-COV-2 COVID-19 2022-03-31 [...] Completed Universit y of Conjugate, PCV20 00:00:00 [place] [facility] (Prevnar 20) Branch SARS-COV-2 COVID-19 [...] Completed Universit y of Conjugate, PCV20 00:00:00 [place] [facility] (Prevnar 20) Branch SARS-COV-2 COVID-19 2022-03-31 Completed Unive rsity of JASPER-SUCROSE 00:00:00 [place] [facility] VACCINE 12 YRS+, Branch BIVALENT 0.3ML, IM, (PFIZER ROGER TOP BOOSTER) Pneumococcal 20 2022-03-31 Completed Universit y of Conjugate, PCV20 00:00:[address] [facility] dical (Prevnar 20) Branch SARS-COV-2 COVID-19 2022-03-31 Completed Unive rsity of JASPER-SUCROSE 00:00:00 [place] [facility] VACCINE 12 YRS+, Branch BIVALENT 0.3ML, IM, (PFIZER ROGER TOP BOOSTER) SARS-COV-2 COVID-19 2021-03-27 Completed Unive rsity of PFIZER VACCINE 00:00:00 [facility] Branch SARS-COV-2 COVID-19 2021-03-27 Completed Unive rsity of PFIZER VACCINE 00:00:00 [facility] SARS-COV-2 COVID-19 2021-03-27 Completed Unive rsity of PFIZER VACCINE 00:00:00 [facility] SARS-COV-2 COVID-19 2021-03-27 Completed Unive rsity of PFIZER VACCINE 00:00:00 [facility] SARS-COV-2 COVID-19 2021-03-27 Completed Unive rsity of PFIZER VACCINE 00:00:00 [facility] Branch SARS-COV-2 COVID-19 2021-03-27 Completed Unive rsity of PFIZER VACCINE 00:00:00 [facility] SARS-COV-2 COVID-19 2021-03-27 Completed Unive rsity of PFIZER VACCINE 00:00:00 [facility] SARS-COV-2 COVID-19 2021-03-27 Completed Unive rsity of PFIZER VACCINE 00:00:00 [facility] SARS-COV-2 COVID-19 2021-03-27 Completed Unive rsity of PFIZER VACCINE 00:00:00 [facility] SARS-COV-2 COVID-19 2021-03-27 Completed Unive rsity of PFIZER VACCINE 00:00:00 [facility] SARS-COV-2 COVID-19 2021-03-27 Completed Unive rsity of PFIZER VACCINE 00:00:00 [facility] SARS-COV-2 COVID-19 2021-03-27 Completed Unive rsity of PFIZER VACCINE 00:00:00 [facility] SARS-COV-2 COVID-19 2021-03-27 Completed Unive rsity of PFIZER VACCINE 00:00:00 [facility] SARS-COV-2 COVID-19 2021-03-27 Completed Unive rsity of PFIZER VACCINE 00:00:00 [facility] SARS-COV-2 COVID-19 2021-03-27 Completed Unive rsity of PFIZER VACCINE 00:00:00 [facility] SARS-COV-2 COVID-19 2021-03-27 Completed Unive rsity of PFIZER VACCINE 00:00:00 [facility] SARS-COV-2 COVID-19 2021-03-27 Completed Unive rsity of PFIZER VACCINE 00:00:00 [facility] SARS-COV-2 COVID-19 2021-03-27 Completed Unive rsity of PFIZER VACCINE 00:00:00 [facility] SARS-COV-2 COVID-19 2021-03-27 Completed Unive rsity of PFIZER VACCINE 00:00:00 [facility] SARS-COV-2 COVID-19 2021-03-27 Completed Unive rsity of PFIZER VACCINE 00:00:00 [facility] SARS-COV-2 COVID-19 2021-03-27 Completed Unive rsity of PFIZER VACCINE 00:00:00 [facility] SARS-COV-2 COVID-19 2021-03-27 Completed Unive rsity of PFIZER VACCINE 00:00:00 [facility] SARS-COV-2 COVID-19 2021-03-27 Completed Unive rsity of PFIZER VACCINE 00:00:00 [facility] SARS-COV-2 COVID-19 2021-03-27 Completed Unive rsity of PFIZER VACCINE 00:00:00 [facility] SARS-COV-2 COVID-19 2021-03-27 Completed Unive rsity of PFIZER VACCINE 00:00:00 [facility] SARS-COV-2 COVID-19 2021-03-27 Completed Unive rsity of PFIZER VACCINE 00:00:00 [facility] SARS-COV-2 COVID-19 2021-03-27 Completed Unive rsity of PFIZER VACCINE 00:00:00 [facility] SARS-COV-2 COVID-19 2021-03-27 Completed Unive rsity of PFIZER VACCINE 00:00:00 [facility] SARS-COV-2 COVID-19 2021-03-27 Completed Unive rsity of PFIZER VACCINE 00:00:00 [facility] SARS-COV-2 COVID-19 2021-03-27 Completed Unive rsity of PFIZER VACCINE 00:00:00 [facility] SARS-COV-2 COVID-19 2021-03-27 Completed Unive rsity of PFIZER VACCINE 00:00:00 [facility] TDAP 2021-03-01 Completed University of 00:00:00 [facility] TDAP 2021-03-01 Completed University of 00:00:00 [facility] TDAP 2021-03-01 Completed University of 00:00:00 [facility] TDAP 2021-03-01 Completed University of 00:00:00 [facility] TDAP 2021-03-01 Completed University of 00:00:00 [facility] TDAP 2021-03-01 Completed University of 00:00:00 [facility] TD 2021-03-01 Completed University of 00:00:00 [facility] TD 2021-03-01 Completed University of 00:00:00 [facility] TD 2021-03-01 Completed University of 00:00:00 [facility] 2021-03-01 Completed University of 00:00:00 [facility] 2021-03-01 Completed University of 00:00:00 [facility] TD 2021-03-01 Completed University of 00:00:00 [facility] 2021-03-01 Completed University of 00:00:00 [facility] 2021-03-01 Completed University of 00:00:00 [facility] TD 2021-03-01 Completed University of 00:00:00 [facility] 2021-03-01 Completed University of 00:00:00 [facility] 2021-03-01 Completed University of 00:00:00 [facility] TD 2021-03-01 Completed University of 00:00:00 [facility] TD 2021-03-01 Completed University of 00:00:00 [facility] TD 2021-03-01 Completed University of 00:00:00 [facility] TD 2021-03-01 Completed University of 00:00:00 [facility] TD 2021-03-01 Completed University of 00:00:00 [facility] 2021-03-01 Completed University of 00:00:00 [facility] TD 2021-03-01 Completed University of 00:00:00 [facility] TD 2021-03-01 Completed University of 00:00:00 [facility] TD 2021-03-01 Completed University of 00:00:00 [facility] TD 2021-03-01 Completed University of 00:00:00 [facility] TD 2021-03-01 Completed University of 00:00:00 [facility] TD 2021-03-01 Completed University of 00:00:00 [facility] 2021-03-01 Completed University of 00:00:00 [facility] 2021-03-01 Completed University of 00:00:00 [facility] 2021-03-01 Completed University of 00:00:00 [facility] TDAP 2021-03-01 Completed University of 00:00:00 [facility] TDAP 2021-03-01 Completed University of 00:00:00 [facility] TDAP 2021-03-01 Completed University of 00:00:00 [facility] TDAP 2021-03-01 Completed University of 00:00:00 [facility] TDAP 2021-03-01 Completed University of 00:00:00 [facility] TDAP 2021-03-01 Completed University of 00:00:00 [facility] TDAP 2021-03-01 Completed University of 00:00:00 [facility] TDAP 2021-03-01 Completed University of 00:00:00 [facility] TDAP 2021-03-01 Completed University of 00:00:00 [facility] Pfizer COVID-19 Pfizer COVID-19 2021-01-21 Completed Vaccine Vaccine 00:00:00 Pfizer COVID-19 Pfizer COVID-19 2020-07-20 Completed Vaccine Vaccine 00:00:00 SARS-COV-2 COVID-19 2020-07-20 Completed Unive rsity of PFIZER VACCINE 00:00:00 [facility] SARS-COV-2 COVID-19 2020-07-20 Completed Unive rsity of PFIZER VACCINE 00:00:00 [facility] SARS-COV-2 COVID-19 2020-07-20 Completed Unive rsity of PFIZER VACCINE 00:00:00 [facility] SARS-COV-2 COVID-19 2020-07-20 Completed Unive rsity of PFIZER VACCINE 00:00:00 [facility] SARS-COV-2 COVID-19 2020-07-20 Completed Unive rsity of PFIZER VACCINE 00:00:00 [facility] SARS-COV-2 COVID-19 2020-07-20 Completed Unive rsity of PFIZER VACCINE 00:00:00 [facility] SARS-COV-2 COVID-19 2020-07-20 Completed Unive rsity of PFIZER VACCINE 00:00:00 [facility] SARS-COV-2 COVID-19 2020-07-20 Completed Unive rsity of PFIZER VACCINE 00:00:00 [facility] SARS-COV-2 COVID-19 2020-07-20 Completed Unive rsity of PFIZER VACCINE 00:00:00 [facility] SARS-COV-2 COVID-19 2020-07-20 Completed Unive rsity of PFIZER VACCINE 00:00:00 [facility] SARS-COV-2 COVID-19 2020-07-20 Completed Unive rsity of PFIZER VACCINE 00:00:00 [facility] SARS-COV-2 COVID-19 2020-07-20 Completed Unive rsity of PFIZER VACCINE 00:00:00 [facility] SARS-COV-2 COVID-19 2020-07-20 Completed Unive rsity of PFIZER VACCINE 00:00:00 [facility] SARS-COV-2 COVID-19 2020-07-20 Completed Unive rsity of PFIZER VACCINE 00:00:00 [facility] SARS-COV-2 COVID-19 2020-07-20 Completed Unive rsity of PFIZER VACCINE 00:00:00 [facility] SARS-COV-2 COVID-19 2020-07-20 Completed Unive rsity of PFIZER VACCINE 00:00:00 [facility] SARS-COV-2 COVID-19 2020-07-20 Completed Unive rsity of PFIZER VACCINE 00:00:00 [facility] SARS-COV-2 COVID-19 2020-07-20 Completed Unive rsity of PFIZER VACCINE 00:00:00 [facility] SARS-COV-2 COVID-19 2020-07-20 Completed Unive rsity of PFIZER VACCINE 00:00:00 [facility] SARS-COV-2 COVID-19 2020-07-20 Completed Unive rsity of PFIZER VACCINE 00:00:00 [facility] SARS-COV-2 COVID-19 2020-07-20 Completed Unive rsity of PFIZER VACCINE 00:00:00 [facility] SARS-COV-2 COVID-19 2020-07-20 Completed Unive rsity of PFIZER VACCINE 00:00:00 [facility] SARS-COV-2 COVID-19 2020-07-20 Completed Unive rsity of PFIZER VACCINE 00:00:00 [facility] SARS-COV-2 COVID-19 2020-07-20 Completed Unive rsity of PFIZER VACCINE 00:00:00 [facility] SARS-COV-2 COVID-19 2020-07-20 Completed Unive rsity of PFIZER VACCINE 00:00:00 [facility] SARS-COV-2 COVID-19 2020-07-20 Completed Unive rsity of PFIZER VACCINE 00:00:00 [facility] SARS-COV-2 COVID-19 2020-07-20 Completed Unive rsity of PFIZER VACCINE 00:00:00 [facility] SARS-COV-2 COVID-19 2020-07-20 Completed Unive rsity of PFIZER VACCINE 00:00:00 [facility] SARS-COV-2 COVID-19 2020-07-20 Completed Unive rsity of PFIZER VACCINE 00:00:00 [facility] SARS-COV-2 COVID-19 2020-07-20 Completed Unive rsity of PFIZER VACCINE 00:00:00 [facility] SARS-COV-2 COVID-19 2020-07-20 Completed Unive rsity of PFIZER VACCINE 00:00:00 [facility] SARS-COV-2 COVID-19 2020-07-20 Completed Unive rsity of PFIZER VACCINE 00:00:00 [facility] SARS-COV-2 COVID-19 2020-07-20 Completed Unive rsity of PFIZER VACCINE 00:00:00 [facility] SARS-COV-2 COVID-19 2020-07-20 Completed Unive rsity of PFIZER VACCINE 00:00:00 [facility] SARS-COV-2 COVID-19 2020-07-20 Completed Unive rsity of PFIZER VACCINE 00:00:00 [facility] SARS-COV-2 COVID-19 2020-07-20 Completed Unive rsity of PFIZER VACCINE 00:00:00 [facility] SARS-COV-2 COVID-19 2020-07-20 Completed Unive rsity of PFIZER VACCINE 00:00:00 [facility] SARS-COV-2 COVID-19 2020-07-20 Completed Unive rsity of PFIZER VACCINE 00:00:00 [facility] SARS-COV-2 COVID-19 2020-07-20 Completed Unive rsity of PFIZER VACCINE 00:00:00 [facility] SARS-COV-2 COVID-19 2020-07-20 Completed Unive rsity of PFIZER VACCINE 00:00:00 [facility] SARS-COV-2 COVID-19 2020-07-20 Completed Unive rsity of PFIZER VACCINE 00:00:00 [facility] Pfizer COVID-19 Pfizer COVID-19 2020-06-29 Completed Vaccine Vaccine 00:00:00 SARS-COV-2 COVID-19 2020-06-29 Completed Unive rsity of PFIZER VACCINE 00:00:00 [facility] SARS-COV-2 COVID-19 2020-06-29 Completed Unive rsity of PFIZER VACCINE 00:00:00 [facility] SARS-COV-2 COVID-19 2020-06-29 Completed Unive rsity of PFIZER VACCINE 00:00:00 [facility] SARS-COV-2 COVID-19 2020-06-29 Completed Unive rsity of PFIZER VACCINE 00:00:00 [facility] SARS-COV-2 COVID-19 2020-06-29 Completed Unive rsity of PFIZER VACCINE 00:00:00 [facility] SARS-COV-2 COVID-19 2020-06-29 Completed Unive rsity of PFIZER VACCINE 00:00:00 [facility] SARS-COV-2 COVID-19 2020-06-29 Completed Unive rsity of PFIZER VACCINE 00:00:00 [facility] SARS-COV-2 COVID-19 2020-06-29 Completed Unive rsity of PFIZER VACCINE 00:00:00 [facility] SARS-COV-2 COVID-19 2020-06-29 Completed Unive rsity of PFIZER VACCINE 00:00:00 [facility] SARS-COV-2 COVID-19 2020-06-29 Completed Unive rsity of PFIZER VACCINE 00:00:00 [facility] SARS-COV-2 COVID-19 2020-06-29 Completed Unive rsity of PFIZER VACCINE 00:00:00 [facility] SARS-COV-2 COVID-19 2020-06-29 Completed Unive rsity of PFIZER VACCINE 00:00:00 [facility] SARS-COV-2 COVID-19 2020-06-29 Completed Unive rsity of PFIZER VACCINE 00:00:00 [facility] SARS-COV-2 COVID-19 2020-06-29 Completed Unive rsity of PFIZER VACCINE 00:00:00 [facility] SARS-COV-2 COVID-19 2020-06-29 Completed Unive rsity of PFIZER VACCINE 00:00:00 [facility] SARS-COV-2 COVID-19 2020-06-29 Completed Unive rsity of PFIZER VACCINE 00:00:00 [facility] SARS-COV-2 COVID-19 2020-06-29 Completed Unive rsity of PFIZER VACCINE 00:00:00 [facility] SARS-COV-2 COVID-19 2020-06-29 Completed Unive rsity of PFIZER VACCINE 00:00:00 [facility] SARS-COV-2 COVID-19 2020-06-29 Completed Unive rsity of PFIZER VACCINE 00:00:00 [facility] SARS-COV-2 COVID-19 2020-06-29 Completed Unive rsity of PFIZER VACCINE 00:00:00 [facility] SARS-COV-2 COVID-19 2020-06-29 Completed Unive rsity of PFIZER VACCINE 00:00:00 [facility] SARS-COV-2 COVID-19 2020-06-29 Completed Unive rsity of PFIZER VACCINE 00:00:00 [facility] SARS-COV-2 COVID-19 2020-06-29 Completed Unive rsity of PFIZER VACCINE 00:00:00 [facility] SARS-COV-2 COVID-19 2020-06-29 Completed Unive rsity of PFIZER VACCINE 00:00:00 [facility] SARS-COV-2 COVID-19 2020-06-29 Completed Unive rsity of PFIZER VACCINE 00:00:00 [facility] SARS-COV-2 COVID-19 2020-06-29 Completed Unive rsity of PFIZER VACCINE 00:00:00 [facility] SARS-COV-2 COVID-19 2020-06-29 Completed Unive rsity of PFIZER VACCINE 00:00:00 [facility] SARS-COV-2 COVID-19 2020-06-29 Completed Unive rsity of PFIZER VACCINE 00:00:00 [facility] SARS-COV-2 COVID-19 2020-06-29 Completed Unive rsity of PFIZER VACCINE 00:00:00 [place] [facility] SARS-COV-2 COVID-19 2020-06-29 Completed Unive rsity of PFIZER VACCINE 00:00:00 [facility] SARS-COV-2 COVID-19 2020-06-29 Completed Unive rsity of PFIZER VACCINE 00:00:00 [facility] SARS-COV-2 COVID-19 2020-06-29 Completed Unive rsity of PFIZER VACCINE 00:00:00 [facility] SARS-COV-2 COVID-19 2020-06-29 Completed Unive rsity of PFIZER VACCINE 00:00:00 [facility] SARS-COV-2 COVID-19 2020-06-29 Completed Unive rsity of PFIZER VACCINE 00:00:00 [facility] SARS-COV-2 COVID-19 2020-06-29 Completed Unive rsity of PFIZER VACCINE 00:00:00 [facility] SARS-COV-2 COVID-19 2020-06-29 Completed Unive rsity of PFIZER VACCINE 00:00:00 [facility] SARS-COV-2 COVID-19 2020-06-29 Completed Unive rsity of PFIZER VACCINE 00:00:00 [facility] SARS-COV-2 COVID-19 2020-06-29 Completed Unive rsity of PFIZER VACCINE 00:00:00 [facility] SARS-COV-2 COVID-19 2020-06-29 Completed Unive rsity of PFIZER VACCINE 00:00:00 [facility] SARS-COV-2 COVID-19 2020-06-29 Completed Unive rsity of PFIZER VACCINE 00:00:00 [facility] SARS-COV-2 COVID-19 2020-06-29 Completed Unive rsity of PFIZER VACCINE 00:00:00 [facility] Influenza Virus 2018-04-12 Completed Universit y [...] y of Vaccine Quad .5 mL 00:00:00 [place] [facility] Influenza Virus [...] y of Vaccine Quad .5 mL 00:00:00 [place] [facility] 6+ [facility] Influenza Virus 2018-04-12 Completed Universit y of Vaccine Quad .5 mL 00:00:00 [place] [facility] 6+ [facility] Influenza Virus 2018-04-12 Completed Universit y of Vaccine Quad .5 mL 00:00:00 [place] [facility] IM 6+ [facility] Influenza Virus 2014-04-12 Completed Universit y of Vaccine Quad IM 3+ 00:00:00 [facility] Influenza Virus 2014-04-12 Completed Universit y of Vaccine Quad IM 3+ 00:00:00 [facility] Influenza Virus 2014-04-12 Completed Universit y of Vaccine Quad IM 3+ 00:00:00 [facility] Influenza Virus 2014-04-12 Completed Universit y of Vaccine Quad IM 3+ 00:00:00 [facility] Influenza Virus 2014-04-12 Completed Universit y of Vaccine Quad IM 3+ 00:00:00 [facility] Influenza Virus 2014-04-12 Completed Universit y of Vaccine Quad IM 3+ 00:00:00 [facility] Influenza Virus 2014-04-12 Completed Universit y of Vaccine Quad IM 3+ 00:00:00 [facility] Influenza Virus 2014-04-12 Completed Universit y of Vaccine Quad IM 3+ 00:00:00 [facility] Influenza Virus 2014-04-12 Completed Universit y of Vaccine Quad IM 3+ 00:00:00 [facility] Influenza Virus 2014-04-12 Completed Universit y of Vaccine Quad IM 3+ 00:00:00 [facility] Influenza Virus 2014-04-12 Completed Universit y of Vaccine Quad IM 3+ 00:00:00 [facility] Influenza Virus 2014-04-12 Completed Universit y of Vaccine Quad IM 3+ 00:00:00 [facility] Influenza Virus 2014-04-12 Completed Universit y of Vaccine Quad IM 3+ 00:00:00 [facility] Influenza Virus 2014-04-12 Completed Universit y of Vaccine Quad IM 3+ 00:00:00 [facility] Influenza Virus 2014-04-12 Completed Universit y of Vaccine Quad IM 3+ 00:00:00 [facility] Influenza Virus 2014-04-12 Completed Universit y of Vaccine Quad IM 3+ 00:00:00 [facility] Influenza Virus 2014-04-12 Completed Universit y of Vaccine Quad IM 3+ 00:00:00 [facility] Influenza Virus 2014-04-12 Completed Universit y of Vaccine Quad IM 3+ 00:00:00 [facility] Influenza Virus 2014-04-12 Completed [facility]it y of Vaccine Quad IM 3+ 00:00:00 [facility] Influenza Virus 2014-04-12 Completed [facility]it y of Vaccine Quad IM 3+ 00:00:00 [facility] Influenza Virus 2014-04-12 Completed [facility]it y of Vaccine Quad IM 3+ 00:00:00 [facility] Influenza Virus 2014-04-12 Completed [facility]it y of Vaccine Quad IM 3+ 00:00:00 [facility] Influenza Virus 2014-04-12 Completed [facility]it y of Vaccine Quad IM 3+ 00:00:00 [facility] Influenza Virus 2014-04-12 Completed [facility]it y of Vaccine Quad IM 3+ 00:00:00 [facility] Influenza Virus 2014-04-12 Completed [facility]it y of Vaccine Quad IM 3+ 00:00:00 [facility] Influenza Virus 2014-04-12 Completed [facility]it y of Vaccine Quad IM 3+ 00:00:00 [facility] Influenza Virus 2014-04-12 Completed [facility]it y of Vaccine Quad IM 3+ 00:00:00 [facility] Influenza Virus 2014-04-12 Completed [facility]it y of Vaccine Quad IM 3+ 00:00:00 [facility] Influenza Virus 2014-04-12 Completed [facility]it y of Vaccine Quad IM 3+ 00:00:00 [facility] Influenza Virus 2014-04-12 Completed [facility]it y of Vaccine Quad IM 3+ 00:00:00 [facility] Influenza Virus 2014-04-12 Completed [facility]it y of Vaccine Quad IM 3+ 00:00:00 [facility] Influenza Virus 2014-04-12 Completed [facility]it y of Vaccine Quad IM 3+ 00:00:00 [facility] Influenza Virus 2014-04-12 Completed [facility]it [facility] of Vaccine Quad IM 3+ 00:00:00 [facility] Influenza Virus 2014-04-12 Completed [facility]it y of Vaccine Quad IM 3+ 00:00:00 [facility] Influenza Virus 2014-04-12 Completed [facility]it y of Vaccine Quad IM 3+ 00:00:00 [facility] Influenza Virus 2014-04-12 Completed [facility]it y of Vaccine Quad IM 3+ 00:00:00 [facility] Influenza Virus 2014-04-12 Completed [facility]it y of Vaccine Quad IM 3+ 00:00:00 [facility] Influenza Virus 2014-04-12 Completed [facility]it y of Vaccine Quad IM 3+ 00:00:00 [facility] Influenza Virus 2014-04-12 Completed [facility]it y of Vaccine Quad IM 3+ 00:00:00 [facility] Influenza Virus 2014-04-12 Completed [facility]it y of Vaccine Quad IM 3+ 00:00:00 [facility] Influenza Virus 2014-04-12 Completed [facility]it y of Vaccine Quad IM 3+ 00:00:00 [facility] Pneumococcal 2013-04-22 Completed University o f Polysaccharide, 00:00:00 [place] [facility] PPSV23 (PNEUMOVAX) Branch Influenza Virus 2013-04-22 Completed Universit y of Vaccine (3+ yrs) 00:00:00 [facility] Pneumococcal 2013-04-22 Completed University o f Polysaccharide, 00:00:00 [place] [facility] PPSV23 (PNEUMOVAX) Branch Influenza Virus 2013-04-22 Completed [facility]it y of Vaccine (3+ yrs) 00:00:00 [facility] Pneumococcal 2013-04-22 Completed University o f Polysaccharide, 00:00:00 [place] [facility] PPSV23 (PNEUMOVAX) Branch Influenza Virus 2013-04-22 Completed [facility]it y of Vaccine (3+ yrs) 00:00:00 [facility] Pneumococcal 2013-04-22 Completed University o f Polysaccharide, 00:00:00 [place] [facility] PPSV23 (PNEUMOVAX) Branch Influenza Virus 2013-04-22 Completed [facility]it y of Vaccine (3+ yrs) 00:00:00 [facility] Pneumococcal 2013-04-22 Completed University o f Polysaccharide, 00:00:00 [place] [facility] PPSV23 (PNEUMOVAX) Branch Influenza Virus 2013-04-22 Completed [facility]it y of Vaccine (3+ yrs) 00:00:00 [facility] Pneumococcal 2013-04-22 Completed University o f Polysaccharide, 00:00:00 [place] [facility] PPSV23 (PNEUMOVAX) Branch Influenza Virus 2013-04-22 Completed [facility]it y of Vaccine (3+ yrs) 00:00:00 [facility] Pneumococcal 2013-04-22 Completed [facility] o f Polysaccharide, 00:00:00 [place] [facility] PPSV23 (PNEUMOVAX) Branch Influenza Virus 2013-04-22 Completed Universit y of Vaccine (3+ yrs) 00:00:[address] [facility] dical Branch Pneumococcal 2013-04-22 Completed University o f Polysaccharide, 00:00:00 [place] [facility] PPSV23 (PNEUMOVAX) Branch Influenza Virus 2013-04-22 Completed Universit y of Vaccine (3+ yrs) 00:00:[address] [facility] dical Branch Pneumococcal 2013-04-22 Completed University o f Polysaccharide, 00:00:00 [place] [facility] PPSV23 (PNEUMOVAX) Branch Influenza Virus 2013-04-22 Completed [facility]it y of Vaccine (3+ yrs) 00:00:00 [facility] Pneumococcal 2013-04-22 Completed University o f Polysaccharide, 00:00:00 [place] [facility] PPSV23 (PNEUMOVAX) Branch Influenza Virus 2013-04-22 Completed [facility]it y of Vaccine (3+ yrs) 00:00:00 [facility] Pneumococcal 2013-04-22 Completed University o f Polysaccharide, 00:00:00 [facility] ical PPSV23 (PNEUMOVAX) Branch Influenza Virus 2013-04-22 Completed Universit y of Vaccine (3+ yrs) 00:00:00 [facility] Pneumococcal 2013-04-22 Completed University o f Polysaccharide, 00:00:00 [facility] ical PPSV23 (PNEUMOVAX) Branch Influenza Virus 2013-04-22 Completed Universit y of Vaccine (3+ yrs) 00:00:00 [facility] Pneumococcal 2013-04-22 Completed University o f Polysaccharide, 00:00:00 [place] [facility] PPSV23 (PNEUMOVAX) Branch Influenza Virus 2013-04-22 Completed [facility]it y of Vaccine (3+ yrs) 00:00:00 [facility] Pneumococcal 2013-04-22 Completed University o f Polysaccharide, 00:00:00 [place] [facility] PPSV23 (PNEUMOVAX) Branch Influenza Virus 2013-04-22 Completed [facility]it y of Vaccine (3+ yrs) 00:00:00 [facility] Pneumococcal 2013-04-22 Completed University o f Polysaccharide, 00:00:00 [place] [facility] PPSV23 (PNEUMOVAX) Branch Influenza Virus 2013-04-22 Completed [facility]it y of Vaccine (3+ yrs) 00:00:00 [facility] Pneumococcal 2013-04-22 Completed University o f Polysaccharide, 00:00:00 [place] [facility] PPSV23 (PNEUMOVAX) Branch Influenza Virus 2013-04-22 Completed [facility]it y of Vaccine (3+ yrs) 00:00:00 [facility] Pneumococcal 2013-04-22 Completed [facility] o f Polysaccharide, 00:00:00 [place] [facility] PPSV23 (PNEUMOVAX) Branch Influenza Virus 2013-04-22 Completed [facility]it y of Vaccine (3+ yrs) 00:00:00 [facility] Pneumococcal 2013-04-22 Completed [facility] o f Polysaccharide, 00:00:00 [place] [facility] PPSV23 (PNEUMOVAX) Branch Influenza Virus 2013-04-22 Completed [facility]it y of Vaccine (3+ yrs) 00:00:00 [facility] Pneumococcal 2013-04-22 Completed University o f Polysaccharide, 00:00:00 [place] [facility] PPSV23 (PNEUMOVAX) Branch Influenza Virus 2013-04-22 Completed [facility]it y of Vaccine (3+ yrs) 00:00:00 [facility] Pneumococcal 2013-04-22 Completed [facility] o f Polysaccharide, 00:00:00 [place] [facility] PPSV23 (PNEUMOVAX) Branch Influenza Virus 2013-04-22 Completed [facility]it y of Vaccine (3+ yrs) 00:00:00 [facility] Pneumococcal 2013-04-22 Completed [facility] o f Polysaccharide, 00:00:00 [place] [facility] PPSV23 (PNEUMOVAX) Branch Influenza Virus 2013-04-22 Completed [facility]it y of Vaccine (3+ yrs) 00:00:00 [facility] Pneumococcal 2013-04-22 Completed [facility] o f Polysaccharide, 00:00:00 [place] [facility] PPSV23 (PNEUMOVAX) Branch Influenza Virus 2013-04-22 Completed [facility]it y of Vaccine (3+ yrs) 00:00:00 [facility] Pneumococcal 2013-04-22 Completed [facility] o f Polysaccharide, 00:00:00 [place] [facility] PPSV23 (PNEUMOVAX) Branch Influenza Virus 2013-04-22 Completed [facility]it y of Vaccine (3+ yrs) 00:00:00 [facility] Pneumococcal 2013-04-22 Completed [facility] o f Polysaccharide, 00:00:00 [place] [facility] PPSV23 (PNEUMOVAX) Branch Influenza Virus 2013-04-22 Completed [facility]it y of Vaccine (3+ yrs) 00:00:[address] [facility] dical Branch Pneumococcal 2013-04-22 Completed University o f Polysaccharide, 00:00:00 [place] [facility] PPSV23 (PNEUMOVAX) Branch Influenza Virus 2013-04-22 Completed [facility] of Vaccine (3+ yrs) 00:00:00 [facility] Pneumococcal 2013-04-22 Completed University o f Polysaccharide, 00:00:00 [place] [facility] PPSV23 (PNEUMOVAX) Branch Influenza Virus 2013-04-22 Completed Universit y of Vaccine (3+ yrs) 00:00:00 [facility] Pneumococcal 2013-04-22 Completed [facility] o f Polysaccharide, 00:00:00 [place] [facility] PPSV23 (PNEUMOVAX) Branch Influenza Virus 2013-04-22 Completed [facility]it y of Vaccine (3+ yrs) 00:00:00 [facility] Pneumococcal 2013-04-22 Completed [facility] o f Polysaccharide, 00:00:00 [place] [facility] PPSV23 (PNEUMOVAX) Branch Influenza Virus 2013-04-22 Completed [facility]it y of Vaccine (3+ yrs) 00:00:00 [facility] Pneumococcal 2013-04-22 Completed [facility] o f Polysaccharide, 00:00:00 [place] [facility] PPSV23 (PNEUMOVAX) Branch Influenza Virus 2013-04-22 Completed [facility]it y of Vaccine (3+ yrs) 00:00:00 [facility] Pneumococcal 2013-04-22 Completed [facility] o f Polysaccharide, 00:00:00 [place] [facility] PPSV23 (PNEUMOVAX) Branch Influenza Virus 2013-04-22 Completed [facility]it y of Vaccine (3+ yrs) 00:00:00 [facility] Pneumococcal 2013-04-22 Completed [facility] o f Polysaccharide, 00:00:00 [place] [facility] PPSV23 (PNEUMOVAX) Branch Influenza Virus 2013-04-22 Completed [facility]it y of Vaccine (3+ yrs) 00:00:00 [facility] Pneumococcal 2013-04-22 Completed [facility] o f Polysaccharide, 00:00:00 [place] [facility] PPSV23 (PNEUMOVAX) Branch Influenza Virus 2013-04-22 Completed [facility]it y of Vaccine (3+ yrs) 00:00:00 [facility] Pneumococcal 2013-04-22 Completed [facility] o f Polysaccharide, 00:00:00 [place] [facility] PPSV23 (PNEUMOVAX) Branch Influenza Virus 2013-04-22 Completed Universit y of Vaccine (3+ yrs) 00:00:[address] [facility] dical Branch Pneumococcal 2013-04-22 Completed University o f Polysaccharide, 00:00:00 [place] [facility] PPSV23 (PNEUMOVAX) Branch Influenza Virus 2013-04-22 Completed Universit y of Vaccine (3+ yrs) 00:00:[address] [facility] dical Branch Pneumococcal 2013-04-22 Completed University o f Polysaccharide, 00:00:00 [place] [facility] PPSV23 (PNEUMOVAX) Branch Influenza Virus 2013-04-22 Completed Universit y of Vaccine (3+ yrs) 00:00:00 [facility] Pneumococcal 2013-04-22 Completed [facility] o f Polysaccharide, 00:00:00 [place] [facility] PPSV23 (PNEUMOVAX) Branch Influenza Virus 2013-04-22 Completed [facility]it y of Vaccine (3+ yrs) 00:00:00 [facility] Pneumococcal 2013-04-22 Completed [facility] o f Polysaccharide, 00:00:00 [place] [facility] PPSV23 (PNEUMOVAX) Branch Influenza Virus 2013-04-22 Completed [facility]it y of Vaccine (3+ yrs) 00:00:00 [facility] Pneumococcal 2013-04-22 Completed [facility] o f Polysaccharide, 00:00:00 [place] [facility] PPSV23 (PNEUMOVAX) Branch Influenza Virus 2013-04-22 Completed Universit y of Vaccine (3+ yrs) 00:00:00 [facility] Pneumococcal 2013-04-22 Completed University o f Polysaccharide, 00:00:00 [place] [facility] PPSV23 (PNEUMOVAX) Branch Influenza Virus 2013-04-22 Completed [facility]it y of Vaccine (3+ yrs) 00:00:00 [facility] Pneumococcal 2013-04-22 Completed [facility] o f Polysaccharide, 00:00:00 [place] [facility] PPSV23 (PNEUMOVAX) Branch Influenza Virus 2013-04-22 Completed [facility]it y of Vaccine (3+ yrs) 00:00:00 [facility] Pneumococcal 2013-04-22 Completed University o f Polysaccharide, 00:00:00 [place] [facility] PPSV23 (PNEUMOVAX) Branch Influenza Virus 2013-04-22 Completed Universit y of Vaccine (3+ yrs) 00:00:[address] [facility] Vital Signs Vital Name Observation Time Observation Value Comments Source Systolic blood 2022-07-11 14:45:00 162 mm[Hg] Univer sity of pressure [place] [facility] Diastolic blood 2022-07-11 14:45:00 110 mm[Hg] Unive rsity of pressure [facility] [place] [facility] Heart rate 2022-07-11 14:45:00 114 /min [facility] [place] [facility] Body temperature 2022-07-11 14:45:00 36.61 Sabrina Univ ersity of [place] [facility] Body height 2022-07-11 14:45:00 170.2 cm [facility] [place] [facility] Body weight 2022-07-11 14:45:00 72.122 kg [facility] [place] [facility] BMI 2022-07-11 14:45:00 24.90 kg/m2 [facility] [place] [facility] Oxygen saturation in 2022-07-11 14:45:00 99 /min University of Arterial blood by [place] [employer] Pulse oximetry Branch Systolic blood 2022-03-31 19:54:00 107 mm[Hg] Univer sity of pressure [facility] [place] [facility] Diastolic blood 2022-03-31 19:54:00 73 mm[Hg] Unive rsity of pressure [facility] [place] [facility] Heart rate 2022-03-31 19:54:00 94 /min [facility] [place] [facility] Body temperature 2022-03-31 19:54:00 37 Sabrina [facility] ers[facility] of [place] [facility] Body height 2022-03-31 19:54:00 171.5 cm [facility] [place] [facility] Body weight 2022-03-31 19:54:00 72.576 kg [facility] [place] [facility] BMI 2022-03-31 19:54:00 24.69 kg/m2 [facility] [place] [facility] Oxygen saturation in 2022-03-31 19:54:00 95 /min University of Arterial blood by [employer] Pulse oximetry Branch Systolic blood 2022-03-05 19:52:00 136 mm[Hg] Univer sity of pressure [facility] [place] [facility] Diastolic blood 2022-03-05 19:52:00 83 mm[Hg] Unive rsity of pressure [facility] [place] [facility] Heart rate 2022-03-05 19:52:00 98 /min [facility] [place] [facility] Body temperature 2022-03-05 19:52:00 36.72 Sabrina Univ ersity of [facility] Respiratory rate 2022-03-05 19:52:00 18 /min Univ ersity of [facility] Body height 2022-03-05 19:52:00 171.5 cm [facility] [place] [facility] Body weight 2022-03-05 19:52:00 73.936 kg [facility] [place] [facility] BMI 2022-03-05 19:52:00 25.15 kg/m2 [facility] of [facility] Systolic blood 2022-01-24 18:20:00 131 mm[Hg] Univer sity of pressure [facility] Diastolic blood 2022-01-24 18:20:00 91 mm[Hg] Unive rsity of pressure [facility] Heart rate 2022-01-24 18:19:00 102 /min [facility] [place] [facility] Body temperature 2022-01-24 18:19:00 36.72 Sabrina Univ ersity of [facility] Body height 2022-01-24 18:19:00 171.5 cm [facility] [place] [facility] Body weight 2022-01-24 18:19:00 74.707 kg [facility] [place] [facility] BMI 2022-01-24 18:19:00 25.41 kg/m2 [facility] of [facility] Oxygen saturation in 2022-01-24 18:19:00 97 /min University Arterial blood by [facility] Pulse oximetry Branch Systolic blood 2022-01-24 18:20:00 131 mm[Hg] Univer sity of pressure [facility] [place] [facility] Diastolic blood 2022-01-24 18:20:00 91 mm[Hg] Unive rsity of pressure [facility] Heart rate 2022-01-24 18:19:00 102 /min [facility] of [facility] Body temperature 2022-01-24 18:19:00 36.72 Sabrina Univ ersity of [facility] Body height 2022-01-24 18:19:00 171.5 cm [facility] [place] [facility] Body weight 2022-01-24 18:19:00 74.707 kg [facility] [place] [facility] BMI 2022-01-24 18:19:00 25.41 kg/m2 [facility] [place] [facility] Oxygen saturation in 2022-01-24 18:19:00 97 /min University Arterial blood by [facility] Pulse oximetry Branch Respiratory rate 2021-11-22 18:55:00 20 /min [facility] Procedures Procedure Date / Time Performing Clinician Source Performed SARS-COV-2 COVID-19 2022-03-31 20:06:29 Sarita Santacruz [facility] JASPER-SUCROSE VACCINE 12 Medical Branch YRS+, BIVALENT 0.3ML, IM, (PFIZER ROGER TOP BOOSTER) PNEUMOCOCCAL 20 CONJUGATE 2022-03-31 20:01:27 Sarita Santacruz [facility] (PREVNAR 20) VACCINE [facility] REFERRAL- 2022-03-31 05:01:00 Doctor Unassigned, [facility] REQUEST/RESPONSE [facility] INSURANCE CORRESPONDENCE 2022-03-10 05:01:00 Doctor Unassigned, [facility] CBC WITH DIFF 2022-01-24 21:07:00 Vonda [facility] GLYCOSYLATED HEMOGLOBIN 2022-01-24 21:07:00 Vonda [facility] (A1C) [facility] COMP. METABOLIC PANEL 2022-01-24 21:07:00 Sarita Santacruz [facility] ([id number]) [facility] IONIZED CALCIUM 2022-01-24 21:07:00 Vonda [facility] THYROID STIMULATING 2022-01-24 21:07:00 Sarita Santacruz [facility] HORMONE [facility] THYROXINE, TOTAL 2022-01-24 21:07:00 Vonda [facility] CBC WITH DIFF 2022-01-24 21:07:00 Vonda [facility] URINE CULTURE 2022-01-24 19:17:00 Vonda [facility] URINE CULTURE 2022-01-24 19:17:00 Vonda [facility] POCT URINALYSIS 2022-01-24 19:00:00 Vonda [facility] POCT URINALYSIS 2022-01-24 19:00:00 Vonda [facility] [place] [facility] Plan of Care Planned Activity Planned Date Details Comments Source Future Scheduled 2022-07-11 COVID-19 VACCINE (#1) [facility] Test 22:28:38 [code = COVID-19 VACCINE (#1)] Future Scheduled 2022-07-11 Pneumococcal Vaccine: [facility] Test 22:28:38 Pediatrics (0 to 5 Years) and At-Risk Patients (6 to 64 Years) (1 - PCV) [code = Pneumococcal Vaccine: Pediatrics (0 to 5 Years) and At-Risk Patients (6 to 64 Years) (1 - PCV)] Future Scheduled 2022-07-11 DIABETES: RETINAL EYE [facility] Test 22:28:38 EXAM [code = DIABETES: RETINAL EYE EXAM] Future Scheduled 2022-07-11 [facility] Test 22:28:38 [code = DIABETIC FOOT EXAM] Future Scheduled 2022-07-11 URINE MICROALBUMIN [facility] Test 22:28:38 [code = URINE MICROALBUMIN] Future Scheduled 2022-07-11 Hepatitis C screening [facility] Test 22:28:38 (procedure) [code = 034153908] Future Scheduled 2022-07-11 Screening for [facility] Test 22:28:38 malignant neoplasm of cervix (procedure) [code = 301409230] Future Scheduled 2022-07-11 BREAST CANCER [facility] Test 22:28:38 SCREENING [code = BREAST CANCER SCREENING] Future Scheduled 2022-07-11 INFLUENZA VACCINE [facility] Hospital Test 22:28:38 [code = INFLUENZA VACCINE] Future Scheduled 2022-05-31 COVID-19 VACCINE (#1) [facility] Test 07:02:30 [code = COVID-19 VACCINE (#1)] Future Scheduled 2022-05-31 Pneumococcal Vaccine: [facility] Test 07:02:30 Pediatrics (0 to 5 Years) and At-Risk Patients (6 to 64 Years) (1 - PCV) [code = Pneumococcal Vaccine: Pediatrics (0 to 5 Years) and At-Risk Patients (6 to 64 Years) (1 - PCV)] Future Scheduled 2022-05-31 DIABETES: RETINAL EYE [facility] Test 07:02:30 EXAM [code = DIABETES: RETINAL EYE EXAM] Future Scheduled 2022-05-31 [facility] Test 07:02:30 [code = DIABETIC FOOT EXAM] Future Scheduled 2022-05-31 URINE MICROALBUMIN [facility] Test 07:02:30 [code = URINE MICROALBUMIN] Future Scheduled 2022-05-31 Hepatitis C screening [facility] Test 07:02:30 (procedure) [code = [id number]] Future Scheduled 2022-05-31 Screening for [facility] Test 07:02:30 malignant neoplasm of cervix (procedure) [code = 440398735] Future Scheduled 2022-05-31 BREAST CANCER [facility] Test 07:02:30 SCREENING [code = BREAST CANCER SCREENING] Future Scheduled 2022-05-31 INFLUENZA VACCINE [facility] Hospital Test 07:02:30 [code = INFLUENZA VACCINE] Future Scheduled 2022-05-31 COVID-19 VACCINE (#1) [facility] Test 07:02:30 [code = COVID-19 VACCINE (#1)] Future Scheduled 2022-05-31 Pneumococcal Vaccine: [facility] Test 07:02:30 Pediatrics (0 to 5 Years) and At-Risk Patients (6 to 64 Years) (1 - PCV) [code = Pneumococcal Vaccine: Pediatrics (0 to 5 Years) and At-Risk Patients (6 to 64 Years) (1 - PCV)] Future Scheduled 2022-05-31 DIABETES: RETINAL EYE [facility] Test 07:02:30 EXAM [code = DIABETES: RETINAL EYE EXAM] Future Scheduled 2022-05-31 DIABETIC FOOT EXAM [facility] Test 07:02:30 [code = DIABETIC FOOT EXAM] Future Scheduled 2022-05-31 URINE MICROALBUMIN [facility] Test 07:02:30 [code = URINE MICROALBUMIN] Future Scheduled 2022-05-31 Hepatitis C screening [facility] Test 07:02:30 (procedure) [code = [id number]] Future Scheduled 2022-05-31 Screening for [facility] Test 07:02:30 malignant neoplasm of cervix (procedure) [code = 362250705] Future Scheduled 2022-05-31 BREAST CANCER [facility] Test 07:02:30 SCREENING [code = BREAST CANCER SCREENING] Future Scheduled 2022-05-31 INFLUENZA VACCINE Method is Hospital Test 07:02:30 [code = INFLUENZA VACCINE] Future Scheduled 2022-05-31 COVID-19 VACCINE (#1) [facility] Test 07:02:30 [code = COVID-19 VACCINE (#1)] Future Scheduled 2022-05-31 Pneumococcal Vaccine: [facility] Test 07:02:30 Pediatrics (0 to 5 Years) and At-Risk Patients (6 to 64 Years) (1 - PCV) [code = Pneumococcal Vaccine: Pediatrics (0 to 5 Years) and At-Risk Patients (6 to 64 Years) (1 - PCV)] Future Scheduled 2022-05-31 DIABETES: RETINAL EYE [facility] Test 07:02:30 EXAM [code = DIABETES: RETINAL EYE EXAM] Future Scheduled 2022-05-31 DIABETIC FOOT EXAM [facility] Test 07:02:30 [code = DIABETIC FOOT EXAM] Future Scheduled 2022-05-31 URINE MICROALBUMIN [facility] Test 07:02:30 [code = URINE MICROALBUMIN] Future Scheduled 2022-05-31 Hepatitis C screening [facility] Test 07:02:30 (procedure) [code = [id number]] Future Scheduled 2022-05-31 Screening for [facility] Test 07:02:30 malignant neoplasm of cervix (procedure) [code = 789186380] Future Scheduled 2022-05-31 BREAST CANCER [facility] Test 07:02:30 SCREENING [code = BREAST CANCER SCREENING] Future Scheduled 2022-05-31 INFLUENZA VACCINE [facility] Hospital Test 07:02:30 [code = INFLUENZA VACCINE] [...] malignant neoplasm of cervix (procedure) [code = 858969247] Future Scheduled 2008 [facility] Test 00:[facility]:00 malignant neoplasm of cervix (procedure) [code = 607937981] Future Scheduled 2008 [facility] Test 00:00:00 malignant neoplasm of cervix (procedure) [code = 419138536] Future Scheduled 2008 [facility] Test 00:00:00 malignant neoplasm of cervix (procedure) [code = 414240310] Future Scheduled 2008 [facility] Test 00:00:00 malignant neoplasm of cervix (procedure) [code = 174168433] Future Scheduled 2008 [facility] Test 00:00:00 malignant neoplasm of cervix (procedure) [code = 590391633] Future Scheduled 2008 Screening for [facility] 00:00:00 malignant neoplasm of cervix (procedure) [code = 318889235] Future Scheduled 2008 Screening for [facility] 00:00:00 malignant neoplasm of cervix (procedure) [code = 756766123] Future Scheduled 1979-02-07 COVID-19 Vaccine (#1) Payne [...] Date/Time Type Type Clinicians Facility Department ID 2022-08-08 2022-08-08 Outpatient [place] [id number] Univers 13:40:00 13:40:00 [facility] 2022-07-11 2022-07-11 Office [facility] 1.2.840.114 [id number] Univers 08:40:00 09:00:00 Visit Critical access hospital 350.1.13.10 ity of [place] 4.2.7.2.686 Jon as STEPHANIE?BLEA [phone] [address] 2022-07-11 2022-07-11 Outpatient [place] [id number] Univers 08:40:00 08:40:00 [facility] 2022-07-10 2022-07-10 Patient [facility] 1.2.840.114 [id number] Univers 00:00:00 00:00:00 Secure [facility] HEALTH 350.1.13.10 ity of [place] 4.2.7.2.686 Jon as STEPHANIE?BLEA [id number] [address] OFFICE [facility] 2022-07-10 2022-07-10 Patient [facility] 1.2.840.114 [id number] Univers 00:00:00 00:00:00 Secure [facility] HEALTH 350.1.13.10 ity of [place] 4.2.7.2.686 Jon as STEPHANIE?BLEA [id number] [address] OFFICE [facility] 2022-07-10 2022-07-10 Telephone [facility] 1.2.616.926 [id number] Univers 00:00:00 00:00:00 [place] HEALTH 350.1.13.10 ity of [place] 4.2.7.2.686 Jon as STEPHANIE?BLEA [phone] [address] OFFICE [facility] 2022-07-09 2022-07-09 Telephone [facility] 1.2.307.745 [id number] Univers 00:00:00 00:00:00 Sarita HEALTH 350.1.13.10 ity of [place] 4.2.7.2.686 Jon as STEPHANIE?BLEA [phone] [address] 2022-07-07 2022-07-07 Refill [facility] 1.2.840.114 [id number] Univers 00:00:00 00:00:00 Sarita HEALTH 350.1.13.10 ity of [place] 4.2.7.2.686 Jon as STEPHANIE?BLEA [phone] [address] 2022-07-07 2022-07-07 Patient [facility] 1.2.840.114 [id number] Univers 00:00:00 00:00:00 [facility] 350.1.13.10 ity of [place] 4.2.7.2.686 Jon as STEPHANIE?BLEA [phone] [address] 2022-07-04 2022-07-04 Outpatient [place] [id number] Univers 11:00:00 11:00:00 [facility] 2022-07-03 2022-07-03 Outpatient R [place] [id number] Univers 14:20:00 14:20:00 [facility] 2022-06-23 2022-06-23 [facility] 1.2.840.114 [id number] Univers 00:00:00 00:00:00 [place] HEALTH 350.1.13.10 ity of [place] 4.2.7.2.686 Jon as STEPHANIE?BLEA [phone] [address] 2022-06-16 2022-06-16 Outpatient [place] [id number] Univers 11:00:00 11:00:00 [facility] 2022-06-16 2022-06-16 [facility] 1.2.840.114 [id number] Univers 00:00:00 00:00:00 Sarita HEALTH 350.1.13.10 ity of [place] 4.2.7.2.686 Jon as STEPHANIE?BLEA [phone] [address] MEDICAL OFFICE [facility] 2022-06-09 2022-06-09 Telephone [facility] 1.2.160.990 [id number] Univers 00:00:00 00:00:00 Sarita LEAGUE 350.1.13.10 ity of [facility] [place].2.7.2.[place] [id number] [address] CLINIC 2022-05-29 2022-05-29 Outpatient R [place] [id number] Univers 10:40:00 10:40:00 [facility] 2022-05-26 2022-05-26 Outpatient R ALICIA [facility] [id number] Univers 00:00:00 00:00:00 POLLY [facility] 2022-05-21 2022-05-21 Patient [facility] 1.2.840.114 [id number] Univers 00:00:00 00:00:00 Secure [facility] 350.1.13.10 ity of [place] 4.2.7.2.686 Jon as STEPHANIE?BLEA [phone] [address] OFFICE [facility] 2022-05-21 2022-05-21 Telephone [facility] 1.2.928.367 [id number] Univers 00:00:00 00:00:00 Sarita HEALTH 350.1.13.10 ity of [place] 4.2.7.2.686 Jon as STEPHANIE?BLEA [phone] [address] OFFICE [facility] 2022-05-19 2022-05-19 [facility] 1.2.840.114 [id number] Univers 00:00:00 00:00:00 Sarita LEAGUE 350.1.13.10 ity of [facility] [place].2.[place] [phone] Me dical AND [address] [place] [address] E CLINIC 2022-05-16 2022-05-16 [facility] 1.2.840.114 [id number] Univers 00:00:00 00:00:00 Sarita PENA 350.1.13.10 ity [facility] [place]2.7.[place] [phone] Mo dicks AND [address] [place] [address] E CLINIC 2022-05-06 2022-05-06 Outpatient R DE ANDA, [facility] [id number] Univers 14:30:00 14:30:00 [facility] ity [facility] 2022-05-06 2022-05-06 Outpatient R NEETU, [facility] [id number] Univers 14:30:00 14:30:00 [facility] ity [facility] 2022-05-06 2022-05-06 Outpatient R NEETU, [facility] [id number] Univers 14:30:00 14:30:00 [facility] 2022-05-06 2022-05-06 Outpatient R NEETU, [facility] [id number] Univers 14:30:00 14:30:00 [facility] 2022-04-30 2022-04-30 [facility] 1.2.840.114 [id number] Univers 00:00:00 00:00:00 Alexsandra PENA 350.1.13.10 it y of [facility] 4.2.7.2.686 Jon as PEDIATRIC [phone] Mo dicks AND [address] [place] [address] E CLINIC 2022-04-30 2022-04-30 Refrafia [facility] 1.2.840.114 [id number] Univers 00:00:00 00:00:00 Critical access hospital 350.1.13.10 ity of [place] 4.2.7.2.686 Jon as STEPHANIE?BLEA [phone] Me dical [address] MEDICAL OFFICE BUILDING 2022-04-22 2022-04-22 Patient [facility] 1.2.840.114 [id number] Univers 00:00:00 00:00:00 Secure Msg Sarita [employer] 350.1.13.10 ity of [place] 4.2.7.2.686 Jon as STEPHANIE?BLEA [phone] Mo migue JORDAN [address] [place] [address] OFFICE [facility] 2022-04-21 2022-04-21 Telephone [facility] 1.2.860.364 [id number] Univers 00:00:00 00:00:00 Sarita HEALTH 350.1.13.10 ity of [place] 4.2.7.2.686 Jon as STEPHANIE?BLEA [phone] Mo timmy[address] OFFICE [facility] 2022-04-14 2022-04-14 Outpatient R ALICIA [facility] [id number] Univers 00:00:00 00:00:00 POLLY galvan [facility] 2022-04-09 2022-04-09 Telephone [facility] 1.2.851.443 [id number] Univers 00:00:00 00:00:00 Critical access hospital 350.1.13.10 ity of [place] 4.2.7.2.686 Jon as STEPHANIE?BLEA [phone] Mo migue [address] OFFICE [facility] 2022-04-08 2022-04-08 Patient [facility] 1.2.840.114 [id number] Univers 00:00:00 00:00:00 Secure [facility] 350.1.13.10 ity of [place] 4.2.7.2.686 Jon as STEPHANIE?BLEA [phone] Mo migue [address] OFFICE [facility] 2022-04-08 2022-04-08 Refill [facility] 1.2.840.114 [id number] Univers 00:00:00 00:00:00 Sarita LEAGUE 350.1.13.10 ity of [facility] 4.2.[place].2.[place] [phone] Mo migue MONTIEL [address] [place] [address] E [facility] 2022-04-01 2022-04-01 [facility] 1.2.840.114 [id number] Univers 00:00:00 00:00:00 Alexsandra LEAGUE 350.1.13.10 it y of [facility] 4.2.7.2.686 Jon as PEDIATRIC [phone] [address] CLINIC 2022-04-01 2022-04-01 Patient Vonda [facility] 1.2.840.114 [id number] Univers 00:00:00 00:00:00 Secure [facility] 350.1.13.10 ity of [place] 4.2.7.2.686 Jon as STEPHANIE?BLEA [phone] [address] MEDICAL OFFICE BUILDING 2022-03-31 2022-03-31 Outpatient R [place] [id number] Univers 14:20:00 16:03:25 SARITA ity [facility] 2022-03-31 2022-03-31 Office [facility] 1.2.840.114 [id number] Univers 14:20:00 16:03:25 Visit Critical access hospital 350.1.13.10 ity of [place] 4.2.7.2.686 Jon as STEPHANIE?BLEA [phone] [address] MEDICAL OFFICE BUILDING 2022-03-31 2022-03-31 Orders Doctor ROBERT 1.2.840.114 [id number] Univers 00:00:00 00:00:00 Only Unassigned, MAURO 350.1.13.10 [place]y of [place] [facility] 4.2.7.2.686 Jon as [phone] [address] 2022-03-27 2022-03-27 Outpatient R VONDA [facility] [id number] Univers 14:20:00 14:20:00 SARITA galvan [facility] 2022-03-21 2022-03-21 Outpatient R TOBY [facility] [id number] Univers 14:00:00 14:00:00 SYDNEY galvan [facility] 2022-03-17 2022-03-17 Patient [facility] 1.2.840.114 [id number] Univers 00:00:00 00:00:00 Secure [facility] 350.1.13.10 ity of [place] 4.2.7.2.686 Jon as STEPHANIE?BLEA [phone] Me dical NILES[place]Y 044 [facility] OFFICE [facility] 2022-03-11 2022-03-11 Refrafia [facility] 1.2.840.114 [id number] Univers 00:00:00 00:00:00 Sarita PENA 350.1.13.10 ity of [facility] 4.2.7.2.[place] [phone] Me dical AND [address] [facility] E CLINIC 2022-03-10 2022-03-10 Orders Doctor ROBERT 1.2.840.114 [id number] Univers 00:00:00 00:00:00 Only Unassigned, MAURO 350.1.13.10 ity of [facility] 4.2.7.2.686 Jon as [phone] [address] 2022-03-05 2022-03-05 Outpatient Abel VARGAS [facility] [id number] Univers 14:30:00 15:25:35 [facility] 2022-03-05 2022-03-05 Office [facility] 1.2.291.261 [id number] Univers 14:30:00 15:25:35 Visit Polly WILLIAM 350.1.13.10 i ty of [place].2.7.2.[place] [phone] Me dical [facility] [address] [facility] 2022-02-28 2022-02-28 Outpatient R NILA [facility] [id number] Univers 12:45:00 12:45:00 GABE [facility] 2022-02-17 2022-02-17 Outpatient Abel VARGAS [facility] [id number] Univers 14:30:00 14:30:00 [facility] 2022-02-15 2022-02-15 Refrafia Ellsworth [facility] 1.2.840.114 [id number] Univers 00:00:00 00:00:00 Alexsandra PENA 350.1.13.10 it y of [facility] 4.2.7.2.686 Jon as PEDIATRIC [phone] Me dical AND [address] [place] [address] E CLINIC 2022-02-12 2022-02-12 Outpatient R SAM [facility] [id number] Univers 14:00:00 14:00:00 [facility] 2022-02-06 2022-02-06 Jasper Ellsworth, 1.2.840.2 [id number] Univers 00:00:00 00:00:00 Alexsandra 15566.1.1 ity of [place] 3.104.2.7 [place] .3.668259 Medica l .8 [place] 2022-01-24 2022-01-24 Glass Grinder Sarita Santacruz 1.2.840.1 [id number] Univers 16:00:00 16:52:01 [place] 21234.1.1 ity of 3.104.2.7 [place] .3.757961 Medica l .8 [place] 2022-01-24 2022-01-24 Glass Grinder Lab, Ang - Db [facility] 1.2.840.1 14 [id number] Univers 16:00:00 16:15:00 Visit Vonda [facility] 350.1.13.10 ity of [place] 4.2.7.2.686 Jon as STEPHANIE?BLEA [phone] Mo migue [address] MEDICAL OFFICE BUILDING 2022-01-24 2022-01-24 Outpatient R [place] [id number] Univers 13:00:00 14:06:30 [facility] 2022-01-24 2022-01-24 Office [facility] 1.2.840.114 [id number] Univers 13:00:00 14:06:30 Visit Critical access hospital 350.1.13.10 ity of [place] 4.2.7.2.686 Jon as STEPHANIE?BLEA [phone] Mo timmy[address] MEDICAL OFFICE BUILDING 2022-01-24 2022-01-24 Outpatient R KAUSHALArsenioCENTERVILLE [id number] Univers 13:00:00 [facility]:06:30 [facility] 2022-01-24 Outpatient R [place] [id number] Univers 13:00:00 14:06:30 [facility] 2022-01-24 2022-01-24 Outpatient R KLEArsenio, [facility] [id number] Univers 13:00:00 14:06:30 [place] ity [facility] 2022-01-24 2022-01-24 Outpatient R KLEY, [facility] [id number] Univers 13:00:00 14:06:30 [facility] 2022-01-24 2022-01-24 Patient Kley, 1.2.840.1 [id number] Univers 00:00:00 00:00:00 Secure Msg Sarita 58589.1.1 ity of 3.104.2.7 [place] .3.806617 Medica l .8 [place] 2022-01-24 2022-01-24 Travel 1.2.840.1 1.2.048.376 [id number] Univers 00:00:00 00:00:00 14178.1.1 350.1.13.10 ity of 3.104.2.7 4.[place]7.3.698 [place] .3.661708 084.8 Medica l .8 [place] 2022-01-20 2022-01-20 Patient Doctor 1.2.840.6 [id number] Univers 00:00:00 00:00:00 Secure Msg Unassigned, 58428.1.1 ity of [place] 3.104.2.7 [place] .3.647952 Medica l .8 [place] 2022-01-17 2022-01-17 Outpatient R KAUSHALY, [facility] [id number] Univers 11:00:00 11:00:00 [place] ity [facility] 2022-01-17 2022-01-17 Refill [facility] 1.2.840.114 [id number] Univers 00:00:00 00:00:00 Alexsandra PENA 350.1.13.10 it y of [facility] 4.2.7.2.686 Jon as PEDIATRIC [phone] [facility] AND [address] [place] [address] CLINIC 2022-01-17 2022-01-17 Refrafia Ellsworth, 1.2.840.7 [id number] Univers 00:00:00 00:00:00 Alexsandra 31752.1.1 ity of [place] 3.104.2.7 [place] .3.593476 Medica l .8 [facility] 2022-01-16 2022-01-16 Outpatient Abel GUY, [facility] [id number] Univers 10:15:00 10:15:00 LAKEISHA ity of [facility] 2022-01-14 2022-01-14 Travel 1.2.840.1 1.2.534.560 [id number] Univers 00:00:00 00:00:00 04895.1.1 350.1.13.10 ity of 3.104.2.7 4.[place]7.3.698 [place] .3.303921 084.8 Medica l .8 [place] 2022-01-14 2022-01-14 [facility] 1.2.840.114 [id number] Univers 00:00:00 00:00:00 Alexsandra PENA 350.1.13.10 it y of [facility] 4.2.7.2.686 Jon as PEDIATRIC [phone] Mo dical AND [address] [facility] CLINIC 2022-01-14 2022-01-14 Travel 1.2.840.1 1.2.347.945 [id number] Univers 00:00:00 00:00:00 11662.1.1 350.1.13.10 ity of 3.104.2.7 4.[place].7.3.698 [place] .3.274027 084.8 Medica l .8 [place] 2022-01-14 2022-01-14 Refrafia Ellsworth, 1.2.840.8 [id number] Univers 00:00:00 00:00:00 Alexsandra 42078.1.1 ity of [place] 3.104.2.7 [place] .3.748045 Medica l .8 [facility] 2022-01-08 2022-01-08 Refrafia Ellsworth, 1.2.840.0 [id number] Univers 00:00:00 00:00:00 Alexsandra 40643.1.1 ity of [place] 3.104.2.7 [place] .3.806277 Medica l .8 [place] 2022-01-08 2022-01-08 Refill Ellsworth, 1.2.840.6 [id number] Univers 00:00:00 00:00:00 Alexsandra 41937.1.1 ity of [place] 3.104.2.7 [place] .3.697726 Medica l .[address] [place] [address] 2022-01-07 2022-01-07 Outpatient R BROOKS, [facility] [id number] Univers 16:15:00 16:15:00 LAKEISHA ity [facility] 2021-12-27 2021-12-27 Outpatient R ROSANAC[place] [id number] Univers 15:00:00 15:00:00 [facility] 2021-12-25 2021-12-25 Outpatient R BROOKSCENTERVIL[place] [id number] Univers 08:15:00 08:15:00 LAKEISHA ity [facility] 2021-12-18 2021-12-18 Outpatient R SAMCENTERV[place] [id number] Univers 14:15:00 14:15:00 AISHAT ity [facility] 2021-12-12 2021-12-12 Refill Ellsworth, 1.2.840.8 [id number] Univers 00:00:00 00:00:00 Alexsandra 27945.1.1 ity of [place] 3.104.2.7 [place] .3.505473 Medica l .[address] [place] [address] 2021-12-12 2021-12-12 Refill Ellsworth, 1.2.840.1 [id number] Univers 00:00:00 00:00:00 Alexsandra 07077.1.1 ity of [place] 3.104.2.7 [place] .3.473832 Medica l .8 [facility] 2021-12-04 2021-12-04 Patient Doctor 1.2.840.9 [id number] Univers 00:00:00 00:00:00 Secure Msg Unassigned, 37569.1.1 ity of [place] 3.104.2.7 [place] .3.380334 Medica l .8 [facility] 2021-12-04 2021-12-04 Patient Doctor 1.2.840.2 [id number] Univers 00:00:00 00:00:00 Secure Msg Unassigned, 58828.1.1 ity of [place] 3.104.2.7 [place] .3.834926 Medica l .8 [facility] 2021-12-03 2021-12-03 Outpatient R SENGCENTERVIL[place] [id number] Univers 09:00:00 09:00:00 ALEXSANDRA itarsenio [facility] 2021-11-22 2021-11-22 Outpatient R BOGDANCENTERVILLE [id number] Univers 13:45:00 14:37:39 DEBORAH galvan [facility] 2021-11-22 2021-11-22 Outpatient R BOGDANC[place] [id number] Univers 13:45:00 13:45:00 DEBORAH ity [facility] 2021-11-22 2021-11-22 Outpatient R SENG [facility] [id number] Univers 13:00:00 13:00:00 ALEXSANDRA carlisley [facility] 2021-11-21 2021-11-21 Travel 1.2.840.1 1.2.740.908 [id number] Univers 00:00:00 00:00:00 53765.1.1 350.1.13.10 ity of 3.104.2.7 4.[place]7.3.698 [place] .3.249982 084.8 Medica l .8 Temple 2021-11-21 2021-11-21 Travel 1.2.840.1 1.2.160.444 [id number] [id number] Univers 00:00:00 00:00:00 08923.1.1 350.1.13.10 ity of 3.104.2.7 4[place].7.3.698 [place] .3.028949 084.8 Medica l .8 [facility] 2021-11-18 2021-11-18 Outpatient R SAM [facility] [id number] Univers 13:45:00 13:45:00 AISHAT ity of [facility] 2021-11-07 2021-11-07 Patient Ellsworth, 1.2.840.3 [id number] Univers 00:00:00 00:00:00 Secure Msg Alexsandra 44599.1.1 i ty of [place] 3.104.2.7 [place] .3.653087 Medica l .8 [facility] 2021-10-15 2021-10-15 Telephone Ellsworth, 1.2.840.3 [id number] Univers 00:00:00 00:00:00 Alexsandra 68788.1.1 ity of [place] 3.104.2.7 [place] .3.728225 Medica l .8 [facility] 2021-10-14 2021-10-14 Telephone Ellsworth, 1.2.840.8 [id number] Univers 00:00:00 00:00:00 Alexsandra 07093.1.1 ity of [place] 3.104.2.7 [place] .3.538696 Medica l .8 [facility] 2021-10-11 2021-10-11 Office Ellsworth, 1.2.840.1 [id number] Univers 10:00:00 10:20:00 Visit Alexsandra 00249.1.1 ity of [place] 3.104.2.7 [place] .3.493348 Medica l .8 [facility] 2021-10-11 2021-10-11 Outpatient Abel ELLSWORTH [facility] [id number] Univers 10:00:00 10:00:00 ALEXSANDRA ity [facility] 2021-10-11 2021-10-11 Outpatient R SENG [facility] [id number] Univers 10:00:00 10:00:00 ALEXSANDRA ity [facility] 2021-10-11 2021-10-11 Outpatient R SENG [facility] [id number] Univers 10:00:00 10:00:00 ALEXSANDRA ity [facility] 2021-10-09 2021-10-09 Travel 1.2.840.1 1.2.305.192 [id number] Univers 00:00:00 00:00:00 14277.1.1 350.1.13.10 ity of 3.104.2.7 [place].3.698 [place] .3.383519 084.8 Medica l .8 [facility] 2021-10-08 2021-10-08 Refill Ellsworth, 1.2.840.0 [id number] Univers 00:00:00 00:00:00 Alexsandra 13905.1.1 ity of [place] 3.104.2.7 [place] .3.199323 Medica l .8 [facility] 2021-10-08 2021-10-08 Refill Ellsworth, 1.2.840.8 [id number] Univers 00:00:00 00:00:00 Alexsandra 01117.1.1 ity of [place] 3.104.2.7 [place] .3.017121 Medica l .8 [facility] 2021-09-30 2021-09-30 Outpatient Abel ROPERC[place] [id number] Univers 14:00:00 14:00:00 MONIQUE ity [facility] 2021-09-11 2021-09-11 Outpatient Abel MEDINAC[place]ERV[place] [id number] Univers 14:00:00 14:00:00 NETO ity [facility] 2021-09-05 2021-09-05 Patient Doctor 1.2.840.3 [id number] Univers 00:00:00 00:00:00 Secure Msg Unassigned, 37759.1.1 ity of [place] 3.104.2.7 [place] .3.104524 Medica l .8 [facility] 2021-09-05 2021-09-05 Patient Doctor 1.2.840.9 [id number] Univers 00:00:00 00:00:00 Secure Msg Unassigned, 61106.1.1 ity of [place] 3.104.2.7 [place] .3.984736 Medica l .8 [facility] 2021-09-04 2021-09-04 Refill Ellsworth, 1.2.840.1 [id number] Univers 00:00:00 00:00:00 Alexsandra 74272.1.1 ity of [place] 3.104.2.7 [place] .3.506579 Medica l .8 [facility] 2021-09-04 2021-09-04 Jasper Ellsworth, 1.2.840.8 [id number] Univers 00:00:00 00:00:00 Alexsandra 22860.1.1 ity of [place] 3.104.2.7 [place] .3.286639 Medica l .8 [facility] 2021-08-29 2021-08-29 Outpatient R OLIVIA [facility] [id number] Univers 09:15:00 09:57:10 ity of [facility] 2021-08-29 2021-08-29 Outpatient R OLIVIA [facility] [id number] Univers 09:15:00 09:15:00 ity of [facility] 2021-08-29 2021-08-29 Travel 1.2.840.1 1.2.454.448 [id number] [facility] 00:00:00 00:00:00 58554.1.1 350.1.13.10 ity of 3.104.2.7 4[place]3.698 [place] .3.200451 084.8 Medica l .8 Temple 2021-08-29 2021-08-29 Travel 1.2.840.1 1.2.713.688 [id number] [facility] 00:00:00 00:00:00 65792.1.1 350.1.13.10 ity of 3.104.2.7 4.[place]7.3.698 [place] .3.104092 084.8 Medica l .8 Temple 2021-08-29 2021-08-29 Travel 1.2.840.1 1.2.581.130 1643 [id number] [facility] 00:00:00 00:00:00 16028.1.1 350.1.13.10 ity of 3.104.2.7 4.[place]7.3.698 [place] .3.073512 084.8 Medica l .8 Branch 2021-08-08 2021-08-08 Outpatient R PATY BAKER [facility] [id number] Univers 10:00:00 10:00:00 ity of [facility] 2021-08-06 2021-08-06 Travel 1.2.840.1 1.2.847.924 [id number] [id number] [facility] 00:00:00 00:00:00 55962.1.1 350.1.13.10 ity of 3.104.2.7 4.[place]7.3.698 [place] .3.721477 084.8 Medica l .8 Branch 2021-08-06 2021-08-06 Travel 1.2.840.1 1.2.394.785 5790 3705 [facility] 00:00:00 00:00:00 22049.1.1 350.1.13.10 ity of 3.104.2.7 4.2.7.3.698 [place] .3.059592 084.8 Medica l .8 Branch 2021-08-06 2021-08-06 Travel 1.2.840.1 1.2.056.209 0059 3705 [facility] 00:00:00 00:00:00 92992.1.1 350.1.13.10 ity of 3.104.2.7 4.[place]7.3.698 [place] .3.150814 084.8 Medica l .8 Branch 2021-08-04 2021-08-04 Refill Doctor 1.2.840.1 [id number] [facility] 00:00:00 00:00:00 Unassigned, 38282.1.1 ity of [place] 3.104.2.7 [place] .3.499108 Medica l .8 Branch 2021-08-04 2021-08-04 Refill [place], 1.2.840.8 [id number] [facility] 00:00:00 00:00:00 Alexsandra 67288.1.1 ity of [place] 3.104.2.7 [place] .3.692437 Medica l .8 Branch 2021-08-04 2021-08-04 Refill [place], 1.2.840.2 [id number] [facility] 00:00:00 00:00:00 Alexsandra 18089.1.1 ity of [place] 3.104.2.7 [place] .3.269618 Medica l .8 Branch 2021-08-04 2021-08-04 Refill Doctor 1.2.840.9 [id number] [facility] 00:00:00 00:00:00 Unassigned, 86348.1.1 ity of [place] 3.104.2.7 [place] .3.848854 Medica l .8 Branch 2021-08-04 2021-08-04 Refill [place], 1.2.840.8 [id number] [facility] 00:00:00 00:00:00 Alexsandra 51378.1.1 ity of [place] 3.104.2.7 [place] .3.195613 Medica l .8 Branch 2021-08-04 2021-08-04 Refill Doctor 1.2.840.1 [id number] 340 [facility] 00:00:00 00:00:00 Unassigned, 20096.1.1 ity of [place] 3.104.2.7 [place] .3.810451 Medica l .8 Branch 2021-08-04 2021-08-04 Refill [place], 1.2.840.5 [id number] 6140 [facility] 00:00:00 00:00:00 Alexsandra 02267.1.1 ity of [place] 3.104.2.7 [place] .3.613211 Medica l .8 Branch 2021-08-04 2021-08-04 Refill Doctor 1.2.840.8 [id number] Univers 00:00:00 00:00:00 Unassigned, 95360.1.1 ity of [place] 3.104.2.7 [place] .3.121312 [facility] 2021-08-04 2021-08-04 Refill [place], 1.2.840.6 [id number] 6341 Univers 00:00:00 00:00:00 Alexsandra 58078.1.1 ity of [place] 3.104.2.7 [place] .3.855664 [facility] 2021-08-04 2021-08-04 Refill Doctor 1.2.840.7 [id number] 340 Univers 00:00:00 00:00:00 Unassigned, 64387.1.1 ity of [place] 3.104.2.7 [place] .3.065180 [facility] 2021-08-04 2021-08-04 Refill [place], 1.2.840.0 [id number] 9157 6140 Univers 00:00:00 00:00:00 Alexsandra 39765.1.1 ity of [place] 3.104.2.7 [place] .3.363722 [facility] 2021-08-04 2021-08-04 Refill Doctor 1.2.840.1 [id number] 139 Univers 00:00:00 00:00:00 Unassigned, 05049.1.1 ity of [place] 3.104.2.7 [place] .3.994464 [facility] 2021-07-19 2021-07-19 Refill [place], 1.2.840.2 [id number] 9121 3152 Univers 00:00:00 00:00:00 Alexsandra 40229.1.1 ity of [place] 3.104.2.7 [place] .3.705186 [facility] 2021-07-19 2021-07-19 Refill [place], 1.2.840.8 [id number] 9121 3152 Univers 00:00:00 00:00:00 Alexsandra 49861.1.1 ity of [place] 3.104.2.7 [place] .3.520881 [facility] 2021-07-19 2021-07-19 Refill [place], 1.2.840.9 [id number] 9121 3152 Univers 00:00:00 00:00:00 Alexsandra 45130.1.1 ity of [place] 3.104.2.7 [place] .3.683518 [facility] 2021-07-17 2021-07-17 Office Seng [facility] 1.2.840.114 [id number] 481 Univers 11:00:00 11:20:00 Visit Alexsandra PENA 350.1.13.10 it y of [place] [facility] 4.2.7.2.686 Jon as PEDIATRIC 176.0978859 Mo dical AND 313 Branch [facility] 2021-07-17 2021-07-17 Office Seng, 1.2.840.4 [id number] 9112 7481 Univers 11:00:00 11:20:00 Visit Alexsandra 32993.1.1 ity of [place] 3.104.2.7 [place] .3.758153 [facility] 2021-07-17 2021-07-17 Office Seng, 1.2.840.8 [id number] 9112 7481 Univers 11:00:00 11:20:00 Visit Alexsandra 73760.1.1 ity of [place] 3.104.2.7 [place] .3.303075 [facility] 2021-07-17 2021-07-17 Office Seng, 1.2.840.1 [id number] 9112 7481 Univers 11:00:00 11:20:00 Visit Alexsandra 54620.1.1 ity of [place] 3.104.2.7 [place] .3.048740 [facility] 2021-07-17 2021-07-17 Outpatient Abel ELLSWORTH [facility] [id number] Univers 11:00:00 11:00:00 ALEXSANDRA ity of [facility] 2021-07-17 2021-07-17 Telephone Seng, 1.2.840.8 [id number] 91 [id number] Univers 00:00:00 00:00:00 Alexsandra 15511.1.1 ity of [place] 3.104.2.7 [place] .3.121730 [facility] 2021-07-17 2021-07-17 Travel 1.2.840.1 1.2.312.383 6191 7656 Univers 00:00:00 00:00:00 30022.1.1 350.1.13.10 ity of 3.104.2.7 [place].3.698 [place].676[place] 084.8 [facility] 2021-07-17 2021-07-17 [facility], 1.2.840.2 [id number] 91 [id number] Univers 00:00:00 00:00:00 Alexsandra 25509.1.1 ity of [place] 3.104.2.7 [place] .3.929724 [facility] 2021-07-17 2021-07-17 Travel 1.2.840.1 1.2.158.879 6202 7656 Univers 00:00:00 00:00:00 41875.1.1 350.1.13.10 ity of 3.104.2.7 4.[place].3.698 [place] .3.125842 084.8 [facility] 2021-07-17 2021-07-17 [facility], 1.2.840.5 [id number] 91 [id number] Univers 00:00:00 00:00:00 Alexsandra 13862.1.1 ity of [place] 3.104.2.7 [place] .3.777362 [facility] 2021-07-17 2021-07-17 Travel 1.2.840.1 1.2.541.504 9584 7656 [facility] 00:00:00 00:00:00 60927.1.1 350.1.13.10 ity of 3.104.2.7 [place].3.698 [place] .3.723496 084.8 [facility] 2021-07-15 2021-07-15 Travel 1.2.840.1 1.2.995.474 4153 4694 Univers 00:00:00 00:00:00 27226.1.1 350.1.13.10 ity of 3.104.2.7 4.[place]7.3.698 [place] .3.025860 084.8 [facility] 2021-07-15 2021-07-15 Travel 1.2.840.1 1.2.679.620 2424 4694 Univers 00:00:00 00:00:00 45187.1.1 350.1.13.10 ity of 3.104.2.7 4.[place]7.3.698 [place] .3.422659 084.8 [facility] 2021-07-15 2021-07-15 Travel 1.2.840.1 1.2.372.912 7380 4694 Univers 00:00:00 00:00:00 31674.1.1 350.1.13.10 ity of 3.104.2.7 4.[place]7.3.698 [place] .3.947650 084.8 [facility] 2021-07-09 2021-07-09 Outpatient R SENG [facility] [id number] Univers 14:20:00 14:20:00 ALEXSANDRA ity of [facility] 2021-07-04 2021-07-04 [facility] 1.2.840.114 907 65607 Univers 00:00:00 00:00:00 Alexsandra PENA 350.1.13.10 it y of [facility] 4.2.7.2.686 Jon as PEDIATRIC [phone] Mo dical AND 313 Branch [facility] 2021-07-04 2021-07-04 Telephone Seng, 1.2.840.5 [id number] 90 [id number] Univers 00:00:00 00:00:00 Alexsandra 30633.1.1 ity of [place] 3.104.2.7 [place] .3.917571 [facility] 2021-07-04 2021-07-04 Telephone Seng, 1.2.840.4 [id number] 90 [id number] Univers 00:00:00 00:00:00 Alexsandra 44274.1.1 ity of [place] 3.104.2.7 [place] .3.777339 [facility] 2021-07-03 2021-07-03 Patient Doctor 1.2.840.8 [id number] 88383 649 Univers 00:00:00 00:00:00 Secure Msg Unassigned, 95504.1.1 ity of [place] 3.104.2.7 [place] .3.455544 [facility] 2021-07-03 2021-07-03 Patient Doctor 1.2.840.1 [id number] 66694 649 Univers 00:00:00 00:00:00 Secure Msg Unassigned, 66258.1.1 ity of [place] 3.104.2.7 [place] .3.788167 [facility] 2021-07-03 2021-07-03 Patient Doctor 1.2.840.3 [id number] [id number] 649 Univers 00:00:00 00:00:00 Secure Msg Unassigned, 43940.1.1 ity of [place] 3.104.2.7 [place] .3.061026 [facility] 2021-06-29 2021-06-29 Telephone [place], 1.2.840.8 [id number] 90 [id number] Univers 00:00:00 00:00:00 Alexsandra 54987.1.1 ity of [place] 3.104.2.7 [place] .3.779359 [facility] 2021-06-29 2021-06-29 Telephone [place], 1.2.840.0 [id number] 90 [id number] Univers 00:00:00 00:00:00 Alexsandra 06147.1.1 ity of [place] 3.104.2.7 [place] .3.963237 [facility] 2021-06-29 2021-06-29 Telephone [place], 1.2.840.8 [id number] 90 [id number] Univers 00:00:00 00:00:00 Alexsandra 55687.1.1 ity of [place] 3.104.2.7 [place] .3.563554 [facility] 2021-06-14 2021-06-14 Patient Doctor 1.2.840.0 [id number] 314 Univers 00:00:00 00:00:00 Secure Msg Unassigned, 37531.1.1 ity of [place] 3.104.2.7 [place] .3.167873 [facility] 2021-06-14 2021-06-14 Patient Doctor 1.2.840.2 [id number] 314 Univers 00:00:00 00:00:00 Secure Msg Unassigned, 79410.1.1 ity of [place] 3.104.2.7 [place] .3.176907 [facility] 2021-06-14 2021-06-14 Patient Doctor 1.2.840.7 [id number] [id number] 314 Univers 00:00:00 00:00:00 Secure Msg Unassigned, 32887.1.1 ity of [place] 3.104.2.7 [place] .3.150142 [facility] 2021-06-01 2021-06-01 Refill Marin, 1.2.840.4 [id number] 74953 853 Univers 00:00:00 00:00:00 Miya 61667.1.1 ity of 3.104.2.7 [place] .3.806649 [facility] 2021-06-01 2021-06-01 Refill Marin, 1.2.840.2 [id number] 74563 853 Univers 00:00:00 00:00:00 Miya 61034.1.1 ity of 3.104.2.7 [place] .3.211506 [facility] 2021-05-28 2021-05-28 Patient Doctor 1.2.840.8 [id number] 17254 558 Univers 00:00:00 00:00:00 Secure Msg Unassigned, 75096.1.1 ity of [place] 3.104.2.7 [place] .3.860529 [facility] 2021-05-28 2021-05-28 Patient Doctor 1.2.840.1 [id number] 69192 558 Univers 00:00:00 00:00:00 Secure Msg Unassigned, 62021.1.1 ity of [place] 3.104.2.7 [place] .3.288354 [facility] 2021-05-20 2021-05-20 Outpatient R KORY [facility] [id number] Univers 14:45:00 14:45:00 MARINE itarsenio of [facility] 2021-05-18 2021-05-18 Outpatient R TERRYLupisRIVER [facility] [id number] Univers 20:45:00 20:59:51 Leilani EKTA carlisle y of [facility] 2021-05-18 2021-05-18 Urgent Unknown, Attending 1.2.840.1 [id number] Univers 20:45:00 20:59:51 Radha NewmanGeovannysobia 21195.1.1 ity of 3.104.2.7 [place] .3.684934 [facility] 2021-05-18 2021-05-18 Urgent Unknown, Attending 1.2.840.1 [id number] Univers 20:45:00 20:59:51 Radha Newman Geovannysobia 37384.1.1 ity of 3.104.2.7 [place] .3.685097 [facility] 2021-05-09 2021-05-09 Outpatient R PATY BAKER [facility] [id number] Univers 10:00:00 10:57:06 ity of [facility] 2021-05-09 2021-05-09 Travel 1.2.840.1 1.2.585.212 3923 4239 Univers 00:00:00 00:00:00 79015.1.1 350.1.13.10 ity of 3.104.2.7 [place]7.3.698 [place] .3.531100 084.8 [facility] 2021-05-09 2021-05-09 Travel 1.2.840.1 1.2.312.155 2495 4239 Univers 00:00:00 00:00:00 12210.1.1 350.1.13.10 ity of 3.104.2.7 4.[place]7.3.698 [place] .3.679204 084.8 [facility] 2021-05-06 2021-05-06 Jasper Ellsworth, 1.2.840.3 [id number] 8927 0057 Univers 00:00:00 00:00:00 Alexsandra 22913.1.1 ity of [place] 3.104.2.7 [place] .3.780852 [facility] 2021-04-12 2021-04-12 Jasper [place], 1.2.840.5 [id number] 8874 2269 Univers 00:00:00 00:00:00 Alexsandra 04412.1.1 ity of [place] 3.104.2.7 [place] .3.918121 [facility] 2021-04-11 2021-04-11 Outpatient R PATY BAKER [facility] [id number] Univers 08:30:00 08:30:00 ity of [facility] 2021-04-10 2021-04-10 Travel 1.2.840.1 1.2.948.499 9889 2313 Univers 00:00:00 00:00:00 46903.1.1 350.1.13.10 ity of 3.104.2.7 4.[place]7.3.698 [place] .3.411464 084.8 [facility] 2021-04-01 2021-04-01 Travel 1.2.840.1 1.2.642.139 2762 7961 Univers 00:00:00 00:00:00 08260.1.1 350.1.13.10 ity of 3.104.2.7 4.[place]7.3.698 [place] .3.065055 084.8 [facility] 2021-03-22 2021-03-22 Outpatient R SANDEEP ARELY [facility] [id number] Univers 09:15:00 09:15:00 ity of [facility] 2021-03-12 2021-03-12 Patient Doctor 1.2.840.5 [id number] 696 Univers 00:00:00 00:00:00 Secure Msg Unassigned, 93006.1.1 ity of [place] 3.104.2.7 [place] .3.581190 [facility] 2021-03-08 2021-03-08 Patient Doctor 1.2.840.9 [id number] [id number] 142 Univers 00:00:00 00:00:00 Secure Msg Unassigned, 49408.1.1 ity of [place] 3.104.2.7 [place] .3.631822 [facility] 2021-03-07 2021-03-07 Outpatient R PATY BAKER [facility] [id number] Univers 08:30:00 08:30:00 ity of [facility] 2021-03-05 2021-03-05 Patient Doctor 1.2.840.8 [id number] Univers 00:00:00 00:00:00 Secure Msg Unassigned, 05666.1.1 ity of [place] 3.104.2.7 [place] .3.943484 [facility] 2021-03-01 2021-03-01 [facility] 1.2.840.114 13801 080 Univers 14:44:46 15:04:46 Visit Alexsandra PENA 350.1.13.10 it y of [facility] 4.2.7.2.686 Jon as PEDIATRIC [id number] Mo dical AND 313 [facility] 2021-03-01 2021-03-01 Office Seng, 1.2.840.3 [id number] 8733 7080 Univers 14:44:46 15:04:46 Visit Alexsandra 81025.1.1 ity of [place] 3.104.2.7 [place] .3.959627 [facility] 2021-03-01 2021-03-01 Outpatient R SENG [facility] [id number] Univers 14:40:00 14:40:00 ALEXSANDRA ity of [facility] 2021-02-28 2021-02-28 Refill Doctor 1.2.840.4 [id number] 26807 569 Univers 00:00:00 00:00:00 Unassigned, 21305.1.1 ity of [place] 3.104.2.7 [place] .3.912129 [facility] 2021-02-28 2021-02-28 Refill Doctor 1.2.840.1 [id number] 75215 567 Univers 00:00:00 00:00:00 Unassigned, 37810.1.1 ity of [place] 3.104.2.7 [place] .3.996927 [facility] 2021-02-28 2021-02-28 Travel 1.2.840.1 1.2.095.898 1906 4039 Univers 00:00:00 00:00:00 14445.1.1 350.1.13.10 ity of 3.104.2.7 [place]7.3.698 [place] .3.605846 084.8 [facility] 2021-02-28 2021-02-28 Refill Doctor 1.2.840.1 [id number] 567 Univers 00:00:00 00:00:00 Unassigned, 65120.1.1 ity of [place] 3.104.2.7 [place] .3.681802 [facility] 2021-02-28 2021-02-28 Refill Doctor 1.2.840.2 [id number] 34468 569 Univers 00:00:00 00:00:00 Unassigned, 91335.1.1 ity of [place] 3.104.2.7 [place] .3.253216 [facility] 2021-02-28 2021-02-28 Travel 1.2.840.1 1.2.342.885 3226 4039 Univers 00:00:00 00:00:00 76531.1.1 350.1.13.10 ity of 3.104.2.7 4.[place].7.3.698 [place] .3.252948 084.8 [facility] 2021-02-16 2021-02-16 Refill [place], 1.2.840.9 [id number] 5078 Univers 00:00:00 00:00:00 Alexsandra 58808.1.1 ity of [place] 3.104.2.7 [place] .3.657061 [facility] 2021-02-162021-02-16 Refill Seng, 1.2.840.8 [id number] 8731 5078 Univers 00:00:00 00:00:00 Alexsandra 16585.1.1 ity of [place] 3.104.2.7 [place] .3.252811 [facility] 2021-02-01 2021-02-01 Outpatient ARELY LAERS [facility] [id number] Univers 10:00:00 10:00:00 ity of [facility] 2021-02-01 2021-02-01 Travel 1.2.840.1 1.2.139.015 9865 2575 Univers 00:00:00 00:00:00 41044.1.1 350.1.13.10 ity of 3.104.2.7 4.[place].7.3.698 [place] .3.411901 084.8 Med[facility] .[facility] Branch 2021-02-01 2021-02-01 Travel 1.2.840.1 1.2.556.542 0105 2575 Univers 00:00:00 00:00:00 85920.1.1 350.1.13.10 ity of 3.104.2.7 4.[place].7.3.698 [place] .3.353692 084.8 [facility] .[facility] 2021-01-30 2021-01-30 Travel 1.2.840.1 1.2.426.240 1556 0552 Univers 00:00:00 00:00:00 43780.1.1 350.1.13.10 ity of 3.104.2.7 4.[place].7.3.698 [place] .3.923824 084.8 [facility] .[facility] Branch 2021-01-30 2021-01-30 Travel 1.2.840.1 1.2.379.954 1770 0552 Univers 00:00:00 00:00:00 69013.1.1 350.1.13.10 ity of 3.104.2.7 4.[place].7.3.698 [place] .3.308139 084.8 [facility] 2021-01-21 2021-01-21 Outpatient GCCOVIDV GCCOVIDV 74376 [id number] GCCOVID 00:00:00 00:00:00 V 2020-12-28 2020-12-28 Outpatient ARELY LARES [facility] [id number] Univers 10:00:00 10:00:00 ity of [facility] 2020-12-28 2020-12-28 Travel 1.2.840.1 1.2.933.617 6521 5281 Univers 00:00:00 00:00:00 65450.1.1 350.1.13.10 ity of 3.104.2.7 4.[place].7.3.698 [place] .3.906431 084.8 [facility] 2020-12-14 2020-12-14 Outpatient ARELY LARES [facility] [id number] Univers 10:00:00 10:00:00 ity of [facility] 2020-12-14 2020-12-14 Travel 1.2.840.1 1.2.772.986 7841 9498 Univers 00:00:00 00:00:00 23364.1.1 350.1.13.10 ity of 3.104.2.7 4.[place].7.3.698 [place] .3.027140 084.8 [facility] 2020-12-11 2020-12-11 Jasper Ellsworth, 1.2.840.8 [id number] 8555 5495 Univers 00:00:00 00:00:00 Alexsandra 98154.1.1 ity of [place] 3.104.2.7 [place] .3.250717 [facility] 2020-11-30 2020-11-30 Outpatient Abel BOGDAN [facility] [id number] Univers 13:30:00 13:30:00 DEBORAH ity of [facility] 2020-11-24 2020-11-24 Nurse Paulina Reese 1.2.840.2 [id number] Univers 00:00:00 00:00:00 Triage 52566.1.1 ity of 3.104.2.7 [place] .3.629323 [facility] 2020-11-13 2020-11-13 Office [place], 1.2.840.3 [id number] 80236 323 Univers 14:35:52 15:05:52 Visit Rajinder Uriarte 92266.1.1 i ty of 3.104.2.7 [place] .3.007785 [facility] 2020-11-13 2020-11-13 Outpatient [place] [id number] Univers 14:30:00 14:30:00 RAJINDER ity o f [facility] 2020-11-13 2020-11-13 Travel 1.2.840.1 1.2.310.935 3475 9568 Univers 00:00:00 00:00:00 42723.1.1 350.1.13.10 ity of 3.104.2.7 4.[place].7.3.698 [place] .3.080071 084.8 [facility] 2020-11-10 2020-11-10 Refill Seng, 1.2.840.4 [id number] 8482 9060 Univers 00:00:00 00:00:00 Alexsandra 22103.1.1 ity of [place] 3.104.2.7 [place] .3.119888 [facility] 2020-11-10 2020-11-10 Refill Serge, 1.2.840.2 [id number] 848 41084 Univers 00:00:00 00:00:00 [place] 86685.1.1 ity of [place] 3.104.2.7 [place] .3.261782 [facility] 2020-10-31 2020-10-31 Outpatient Abel [place] [id number] Univers 08:45:00 08:45:00 DADA galvan [facility] 2020-10-10 2020-10-10 Outpatient Abel [place] 1032 [id number] Univers 09:15:00 09:15:00 DADA galvan [facility] 2020-10-09 2020-10-09 Refill Flash, 1.2.840.6 [id number] 681 Univers 00:00:00 00:00:00 Pepito K 88267.1.1 i ty of 3.104.2.7 [place] .3.133615 [facility] 2020-10-01 2020-10-01 Refill [place], 1.2.840.6 [id number] 8382 5936 Univers 00:00:00 00:00:00 Alexsandra 47058.1.1 ity of [place] 3.104.2.7 [place] .3.705372 [facility] 2020-10-01 2020-10-01 Refill Serge, 1.2.840.5 [id number] 838 80972 Univers 00:00:00 00:00:00 Keshawn 71137.1.1 ity of [place] 3.104.2.7 [place] .3.273942 [facility] 2020-10-01 2020-10-01 Patient Seng, 1.2.840.3 [id number] 8383 5511 Univers 00:00:00 00:00:00 Secure Msg Alexsandra 10870.1.1 i ty of [place] 3.104.2.7 [place] .3.069667 [facility] 2020-09-27 2020-09-27 Outpatient R NILA, [facility] [id number] Univers 15:45:00 15:45:00 GABE ity of [facility] 2020-09-27 2020-09-27 Travel 1.2.840.1 1.2.421.617 5449 6648 Univers 00:00:00 00:00:00 84035.1.1 350.1.13.10 ity of 3.104.2.7 [place]7.3.698 [place] .3.189210 084.8 [facility] 2020-09-21 2020-09-21 Outpatient R ALONDRA, [facility] [id number] Univers 15:00:00 15:00:00 CARLEY ity of [facility] 2020-09-11 2020-09-11 Office Seng, 1.2.840.3 [id number] 8327 3420 Univers 13:04:54 13:24:54 Visit Alexsandra 65602.1.1 ity of [place] 3.104.2.7 [place] .3.311184 [facility] 2020-09-11 2020-09-11 Outpatient Abel ELLSWORTH, [facility] [id number] Univers 13:00:00 13:00:00 ALEXSANDRA ity of [facility] 2020-09-10 2020-09-10 Travel 1.2.840.1 1.2.971.874 8346 7674 Univers 00:00:00 00:00:00 75948.1.1 350.1.13.10 ity of 3.104.2.7 4.[place].7.3.698 [place] .3.932635 084.8 [facility] 2020-09-10 2020-09-10 Patient Doctor 1.2.840.1 [id number] 740 Univers 00:00:00 00:00:00 Secure Msg Unassigned, 39254.1.1 ity of [place] 3.104.2.7 [place] .3.742371 [facility] 2020-09-09 2020-09-09 Refill Flash, 1.2.840.7 [id number] 24888 614 Univers 00:00:00 00:00:00 Pepito Landry 54336.1.1 i ty of 3.104.2.7 [place] .3.960570 [facility] 2020-09-09 2020-09-09 Refill Serge 1.2.840.2 [id number] 832 [id number] Univers 00:00:00 00:00:00 Keshawn 44367.1.1 ity of [place] 3.104.2.7 [place] .3.816952 [facility] 2020-08-23 2020-08-23 Outpatient ARELY LARES [facility] [id number] Univers 13:30:00 13:30:00 ity of [facility] 2020-08-22 2020-08-22 Travel 1.2.840.1 1.2.751.747 9389 0434 Univers 00:00:00 00:00:00 47926.1.1 350.1.13.10 ity of 3.104.2.7 4.2.7.3.698 [place] .3.151864 084.8 [facility] 2020-08-09 2020-08-09 Jasper Goldman, 1.2.840.6 [id number] 822 [id number] Univers 00:00:00 00:00:00 [place] 84903.1.1 ity of [place] 3.104.2.7 [place] .3.668351 [facility] 2020-07-20 2020-07-20 Outpatient Abel BELL [facility] [id number] Univers 09:20:00 09:20:00 RODRÍGUEZ ity [facility] 2020-07-20 2020-07-20 Imm/Inj Rodríguez Bell 1.2.840.1 [id number] Univers 09:04:42 09:05:00 Visit Nurse, Adc Pob Immunization 95468.1.1 ity of 3.104.2.7 [place] .3.729554 [facility] 2020-07-20 2020-07-20 Outpatient GCCOVIDV GCCOVIDV 12739 [id number] GCCOVID 00:00:00 00:00:00 V 2020-07-12 2020-07-12 Outpatient ARELY LARES [facility] [id number] Univers 13:30:00 13:30:00 ity of [facility] 2020-07-12 2020-07-12 Travel 1.2.840.1 1.2.169.953 6120 5735 Univers 00:00:00 00:00:00 39959.1.1 350.1.13.10 ity of 3.104.2.7 [place]7.3.698 [place] .3.994903 084.8 Medica l .8 [place] 2020-07-12 2020-07-12 Orders Doctor 1.2.840.8 [id number] Univers 00:00:00 00:00:00 Only Unassigned, 45766.1.1 ity of [place] 3.104.2.7 [place] .3.050203 Medica l .8 Branch 2020-07-06 2020-07-06 Jasper Goldman 1.2.840.0 [id number] Univers 00:00:00 00:00:00 [place] 21246.1.1 ity of [place] 3.104.2.7 [place] .3.676555 Medica l .8 Branch 2020-07-06 2020-07-06 Refrafia Greer, 1.2.840.5 [id number] Univers 00:00:00 00:00:00 Wu 70021.1.1 ity of 3.104.2.7 [place] .3.196825 Medica l .8 [place] 2020-06-29 2020-06-29 Outpatient Abel BELL [facility] [id number] Univers 09:20:00 09:20:00 RODRÍGUEZ ity [facility] 2020-06-29 2020-06-29 Imm/Inj Rodríguez Bell 1.2.840.1 [id number] Univers 09:00:27 09:07:28 Visit Nurse, Hernandez Pob Immunization 90070.1.1 ity of 3.104.2.7 [place] .3.372857 Medica l .8 [place] 2020-06-29 2020-06-29 Outpatient GCCOVIDV GCCOVIDV [id number] GCCOVID 00:00:00 00:00:00 2020-06-29 2020-06-29 Jasper Goldman 1.2.840.8 [id number] Univers 00:00:00 00:00:00 [place] 40408.1.1 ity of [place] 3.104.2.7 [place] .3.279728 Medica l .8 Temple 2020-06-28 2020-06-28 Outpatient Abel OSHEA [facility] [id number] Univers 08:10:00 08:10:00 MARTELL ity [facility] 2020-06-26 2020-06-26 Patient Tobin 1.2.840.9 [id number] Univers 00:00:00 00:00:00 Outreach Martell 90521.1.1 ity of [place] 3.104.2.7 [place] .3.077335 Medica l .8 Branch 2020-06-25 2020-06-25 Refill Serge, 1.2.840.4 [id number] Univers 00:00:00 00:00:00 [place] 60231.1.1 ity of [place] 3.104.2.7 [place] .3.118211 Medica l .8 Branch 2020-06-21 2020-06-21 Patient Doctor 1.2.840.0 [id number] Univers 00:00:00 00:00:00 Secure Msg Unassigned, 60048.1.1 ity of [place] 3.104.2.7 [place] .3.448955 Medica l .8 Branch 2020-06-20 2020-06-20 Patient Serge, 1.2.840.2 [id number] Univers 00:00:00 00:00:00 Secure Msg Keshawn 94499.1.1 i ty of [place] 3.104.2.7 [place] .3.949582 Medica l .8 Branch 2020-06-20 2020-06-20 Patient Serge, 1.2.840.2 [id number] Univers 00:00:00 00:00:00 Secure Msg [place] 26990.1.1 i ty of [place] 3.104.2.7 [place] .3.148840 Medica l .8 Branch 2020-06-18 2020-06-18 Office Serge, 1.2.840.6 [id number] Univers 09:39:03 09:59:03 Visit [place] 73147.1.1 ity of [place] 3.104.2.7 [place] .3.903070 Medica l .8 Branch 2020-06-18 2020-06-18 Outpatient R SERGE, [facility] [id number] Univers 09:40:00 09:40:00 KESHAWN ity of [facility] 2020-06-18 2020-06-18 Orders Doctor 1.2.840.3 [id number] Univers 00:00:00 00:00:00 Only Unassigned, 52298.1.1 ity of [place] 3.104.2.7 [place] .3.319091 Medica l .8 Branch 2020-06-12 2020-06-12 Patient Serge, 1.2.840.1 [id number] Univers 00:00:00 00:00:00 Secure Msg [place] 81474.1.1 i ty of [place] 3.104.2.7 [place] .3.104776 Medica l .8 Branch 2020-06-01 2020-06-01 Refill Serge, 1.2.840.5 [id number] Univers 00:00:00 00:00:00 [place] 44310.1.1 ity of [place] 3.104.2.7 [place] .3.407322 Medica l .8 Branch 2020-05-27 2020-05-27 Jasper Goldman 1.2.840.0 [id number] Univers 00:00:00 00:00:00 Keshawn 37944.1.1 ity of [place] 3.104.2.7 [place] .3.463502 Medica l .8 Branch 2020-05-10 2020-05-10 Outpatient R SERGE, [facility] [id number] Univers 13:20:00 13:20:00 KESHAWN ity of [facility] 2020-05-07 2020-05-07 Patient Doctor 1.2.840.3 [id number] Univers 00:00:00 00:00:00 Secure Msg Unassigned, 90146.1.1 ity of [place] 3.104.2.7 [place] .3.319673 Medica l .8 Branch 2020-04-28 2020-04-28 Refrafia Goldman 1.2.840.0 [id number] Univers 00:00:00 00:00:00 [place] 21163.1.1 ity of [place] 3.104.2.7 [place] .3.227306 Medica l .8 Branch 2020-04-23 2020-04-23 Telephone Serge, 1.2.840.9 [id number] Univers 00:00:00 00:00:00 Keshawn 56125.1.1 ity of [place] 3.104.2.7 [place] .3.739364 Medica l .8 Branch 2020-04-23 2020-04-23 Jasper Goldman, 1.2.840.4 [id number] Univers 00:00:00 00:00:00 Keshawn 83595.1.1 ity of [place] 3.104.2.7 [place] .3.726052 Medica l .8 Branch 2020-04-21 2020-04-21 Jasper Goldman, 1.2.840.9 [id number] Univers 00:00:00 00:00:00 [place] 12953.1.1 ity of [place] 3.104.2.7 [place] .3.340980 Medica l .8 Branch 2020-04-21 2020-04-21 Jasper Goldman, 1.2.840.2 [id number] Univers 00:00:00 00:00:00 [place] 58324.1.1 ity of [place] 3.104.2.7 [place] .3.894723 Medica l .8 Branch 2020-04-20 2020-04-20 Jasper Goldman, 1.2.840.3 [id number] Univers 00:00:00 00:00:00 [place] 80038.1.1 ity of [place] 3.104.2.7 [place] .3.764460 Medica l .8 [place] 2020-03-30 2020-03-30 Jasper Goldman [facility] 1.2.979.577 [id number] Univers 00:00:00 00:00:00 Keshawn PENA 350.1.13.10 it y of [facility] [id number] Mo dical AND [address] [facility] 2020-03-20 2020-03-20 Jasper Goldman [facility] 1.2.546.232 7520 0201 Univers 00:00:00 00:00:00 Keshawn PENA 350.1.13.10 it y of [facility] [place] [phone] Me dical AND [address] [place] [address] E CLINIC 2020-02-20 2020-02-20 NANCY Yip 1.2.106.303 [id number] 6247 00:00:00 00:00:00 [place] LEAGUE 350.1.13.10 [facility] 4.2.7.2.686 PEDIATRIC [phone] AND [address] [place] [address] E CLINIC 2020-02-20 2020-02-20 NANCY Astorga 1.2.840.114 [id number] 50 00:00:00 00:00:00 Wu SPECIALTY 350.1.13.10 CARE 4.2.7.2.686 CENTER AT [phone] [address] 2020-02-20 2020-02-20 NANCY Yip 1.2.214.012 5927 6247 Univers 00:00:00 00:00:00 [place] LEAGUE 350.1.13.10 it y of [facility] [place] 651.8764377 Me dical AND [address] [place] [address] E CLINIC 2020-02-20 2020-02-20 NANCY Astorga 1.2.840.114 [id number] Univers 00:00:00 00:00:00 Wu SPECIALTY 350.1.13.10 it[place] [phone] Me dical [address] 2020-02-19 2020-02-19 NANCY Yip 1.2.635.676 0569 3151 00:00:00 00:00:00 [place] LEAGUE 350.1.13.10 [facility] 4.2.7.2.686 PEDIATRIC [phone] AND [address] [place] [address] E CLINIC 2020-02-19 2020-02-19 NANCY Yip 1.2.151.953 2109 3151 Univers 00:00:00 00:00:00 [place] LEAGUE 350.1.13.10 it y of [facility] [place] [phone] Me dical AND [address] [place] [address] E CLINIC 2020-01-19 2020-01-19 [facility] 1.2.561.964 0053 8022 00:00:00 00:00:00 [place]ha[place] PENA 350.1.13.10 [facility] 4.2.7.2.686 PEDIATRIC 771.1681605 AND [address] [facility] E CLINIC 2020-01-19 2020-01-19 [facility] 1.2.395.476 8336 [id number] Univers 00:00:00 00:00:00 Keshawn PENA 350.1.13.10 it y of [facility] [place] 490.9371128 Me dical AND [address] [place] [address] E CLINIC 2019-12-30 2019-12-30 Telephone NurseJon 1.2.840.4 [id number] Univers 00:00:00 00:00:00 Urgent 55601.1.1 ity of 3.104.2.7 [place] .3.540020 Medica l .8 [place] 2019-12-27 2019-12-27 Patient Serge, 1.2.840.6 [id number] 769 [id number] Univers 00:00:00 00:00:00 Secure Msg [place] 96733.1.1 i ty of [facility] 3.104.2.7 [place] .3.143688 Medica l .8 [place] 2019-12-27 2019-12-27 Patient Doctor 1.2.840.4 [id number] Univers 00:00:00 00:00:00 Secure Msg Unassigned, 47395.1.1 ity of [place] 3.104.2.7 [place] .3.837243 Medica l .8 Temple 2019-12-25 2019-12-25 Laboratory Unknown, Attending 1.2.840.1 10 [id number] Univers 16:44:25 16:52:18 Only Nicolas Siddiqui 63445.1.1 ity of NurseJon Urgent 3.104.2.7 [place] .3.964397 Medica l .8 Temple 2019-12-25 2019-12-25 Outpatient R UNKNOWN, [facility] [id number] Univers 16:45:00 16:45:00 ATTENDING ity of [facility] 2019-12-25 2019-12-25 Travel 1.2.840.1 1.2.991.980 [id number] [id number] Univers 00:00:00 00:00:00 40658.1.1 350.1.13.10 ity of 3.104.2.7 4[place]7.3.698 [place] .3.495297 084.8 Medica l .8 Branch 2019-12-19 2019-12-19 Jaspre Goldman, 1.2.840.3 [id number] 767 [id number] Univers 00:00:00 00:00:00 [place] 90962.1.1 ity of [place] 3.104.2.7 [place] .3.419177 Medica l .8 Branch 2019-12-09 2019-12-09 Jasper Goldman 1.2.840.1 [id number] 765 [id number] Univers 00:00:00 00:00:00 [place] 98895.1.1 ity of [place] 3.104.2.7 [place] .3.863583 Medica l .8 Branch 2019-11-24 2019-11-24 Orders Doctor 1.2.840.1 [id number] Univers 00:00:00 00:00:00 Only Unassigned, 45610.1.1 ity of [place] 3.104.2.7 [place] .3.308295 Medica l .8 Branch 2019-11-22 2019-11-22 Jasper Goldman 1.2.840.3 [id number] 761 34956 Univers 00:00:00 00:00:00 [place] 10675.1.1 ity of [place] 3.104.2.7 [place] .3.866796 Medica l .8 Branch 2019-11-19 2019-11-19 Jasper Goldmna 1.2.840.1 [id number] 761 71134 Univers 00:00:00 00:00:00 [place] 42253.1.1 ity of [place] 3.104.2.7 [place] .3.405482 Medica l .8 Branch 2019-11-16 2019-11-16 Orders Doctor 1.2.840.0 [id number] 037 Univers 00:00:00 00:00:00 Only Unassigned, 93537.1.1 ity of [place] 3.104.2.7 [place] .3.970804 Medica l .8 Temple 2019-11-16 2019-11-16 Telephone Krill, 1.2.840.6 [id number] 760 [id number] Univers 00:00:00 00:00:00 Wu 32243.1.1 ity of 3.104.2.7 [place] .3.902986 Medica l .8 Temple 2019-11-08 2019-11-08 Orders Doctor 1.2.840.7 [id number] Univers 00:00:00 00:00:00 Only Unassigned, 33395.1.1 ity of [place] 3.104.2.7 [place] .3.188147 Medica l .8 Temple 2019-10-19 2019-10-19 Jasper Goldman 1.2.840.5 [id number] 756 71213 Univers 00:00:00 00:00:00 [place] 04940.1.1 ity of [place] 3.104.2.7 [place] .3.576300 Medica l .8 Temple 2019-10-19 2019-10-19 Jasper Goldman 1.2.840.6 [id number] 756 09612 Univers 00:00:00 00:00:00 [place] 06712.1.1 ity of [place] 3.104.2.7 [place] .3.819748 Medica l .8 Temple 2019-10-18 2019-10-18 Orders Doctor 1.2.840.3 [id number] Univers 00:00:00 00:00:00 Only Unassigned, 82662.1.1 ity of [place] 3.104.2.7 [place] .3.946022 Medica l .8 Temple 2019-10-18 2019-10-18 Telephone Krill, 1.2.840.3 [id number] 756 [id number] Univers 00:00:00 00:00:00 Wu 57325.1.1 ity of 3.104.2.7 [place] .3.209908 Medica l .8 Temple 2019-10-11 2019-10-11 Jasper Goldman 1.2.840.5 [id number] 755 [id number] Univers 00:00:00 00:00:00 [place] 70690.1.1 ity of [place] 3.104.2.7 [place] .3.143988 Medica l .8 Branch 2019-10-11 2019-10-11 Jasper Goldman, 1.2.840.7 [id number] 755 [id number] Univers 00:00:00 00:00:00 [place] 21658.1.1 ity of [place] 3.104.2.7 [place] .3.209275 Medica l .8 Branch 2019-10-06 2019-10-06 Telemedici Pepito Estrella 1.2.840.1 10 [id number] Univers 06:59:58 15:12:03 ne Wu Barraza 62575.1.1 ity of 3.104.2.7 [place] .3.203818 Medica l .8 Branch 2019-10-06 2019-10-06 Outpatient Abel ESTRELLA DCGREGORY [facility] [id number] Univers 13:00:00 13:00:00 PEPITO ity o f [facility] 2019-09-20 2019-09-20 Orders Doctor 1.2.840.4 [id number] Univers 00:00:00 00:00:00 Only Unassigned, 78841.1.1 ity of [place] 3.104.2.7 [place] .3.929713 Medica l .8 Branch 2019-09-19 2019-09-19 Jasper Goldman 1.2.840.8 [id number] 751 [id number] Univers 00:00:00 00:00:00 Keshawn 49171.1.1 ity of [place] 3.104.2.7 [place] .3.317084 Medica l .8 Branch 2019-09-19 2019-09-19 Jasper Goldman 1.2.840.5 [id number] 751 [id number] Univers 00:00:00 00:00:00 Keshawn 36163.1.1 ity of [place] 3.104.2.7 [place] .3.229213 Medica l .8 Branch 2019-09-15 2019-09-15 Outpatient R ARELY HOPKINS [facility] [id number] Univers 14:15:00 14:15:00 ity of [facility] 2019-09-10 2019-09-10 Telephone Zoey 1.2.840.4 [id number] Univers 00:00:00 00:00:00 Wu 52362.1.1 ity of 3.104.2.7 [place] .3.818054 Medica l .8 [place] 2019-09-08 2019-09-08 Outpatient R [facility] [id number] Univers 13:30:00 13:30:00 ity of [facility] 2019-09-08 2019-09-08 Telemedici Joey Sushil Kumar 1.2.840.1 [id number] Univers 07:06:54 07:36:54 ne Visit Melina Steinberg 96473.1.1 ity of [place] 3.104.2.7 [place] .3.987830 Medica l .8 Temple 2019-08-26 2019-08-26 [place] [id number] Univers 15:00:00 15:00:00 KESHAWN ity [facility] 2019-08-26 2019-08-26 Outpatient [place] [id number] Univers 15:00:00 15:00:00 KESHAWN ity [facility] 2019-08-22 2019-08-22 [facility] 1.2.838.460 [id number] Univers 00:00:00 00:00:00 Secure Msg [place] JEAN 350.1.13.10 ity of [facility] [place]7.2.[place] 919.9504944 Me dical AND [address] [place] [address] E CLINIC 2019-08-22 2019-08-22 [facility] 1.2.784.414 [id number] [id number] Univers 00:00:00 00:00:00 Secure Msg Keshawn LEAGUE 350.1.13.10 ity of [facility] 4[place]7.2.[place] 941.5131305 Me dical AND [address] [place] [address] E CLINIC 2019-08-19 2019-08-19 Nurse Constantine, 1.2.840.5 [id number] Univers 00:00:00 00:00:00 Triage Deysi D 64233.1.1 ity of 3.104.2.7 [place] .3.229992 Medica l .8 Branch 2019-08-19 2019-08-19 Jasper Goldman, 1.2.840.2 [id number] 747 05963 Univers 00:00:00 00:00:00 [place] 90862.1.1 ity of [place] 3.104.2.7 [place] .3.742394 Medica l .8 Branch 2019-08-19 2019-08-19 Telephone Serge, 1.2.840.2 [id number] Univers 00:00:00 00:00:00 Keshawn 40903.1.1 ity of [place] 3.104.2.7 [place] .3.525035 Medica l .8 Branch 2019-08-19 2019-08-19 Jasper Goldman, 1.2.840.1 [id number] 747 80211 Univers 00:00:00 00:00:00 Keshawn 77444.1.1 ity of [place] 3.104.2.7 [place] .3.132392 Medica l .8 Branch 2019-08-18 2019-08-18 Office Serge, 1.2.840.9 [id number] 742 [id number] Univers 13:07:26 13:22:26 Visit [place] 31420.1.1 ity of [place] 3.104.2.7 [place] .3.938616 Medica l .8 Branch 2019-08-18 2019-08-18 Outpatient Abel GOLDMAN [facility] [id number] Univers 13:00:00 13:00:00 KESHAWN ity of [facility] 2019-08-18 2019-08-18 Jasper Goldman, 1.2.840.7 [id number] 747 32140 Univers 00:00:00 00:00:00 [place] 62209.1.1 ity of [place] 3.104.2.7 [place] .3.503474 Medica l .8 Branch 2019-08-11 2019-08-11 Outpatient Abel DOTSON [facility] [id number] Univers 10:45:00 10:45:00 GABE itarsenio of [facility] 2019-08-11 2019-08-11 Orders Doctor 1.2.840.5 [id number] [facility] 00:00:00 00:00:00 Only Unassigned, 65200.1.1 ity of [place] 3.104.2.7 [place] .3.370097 Medica l .8 Temple 2019-08-04 2019-08-04 Outpatient SANDRA, [facility] [id number] [place] 00:00:00 00:00:00 JEAN PIERRE 786 Method i 2019-08-01 2019-08-01 Outpatient SANDRA, [facility] [id number] [place] 00:00:00 00:00:00 JEAN PIERRE 062 Method i 2019-07-26 2019-07-28 Outpatient JULIANNE, [facility] 738 [id number] [place] 00:00:00 00:00:00 DANIKA 312 Met hodi 2019-07-25 2019-07-25 [facility] 064 [id number] [place] 00:00:00 00:00:00 JANA 764 Method i 2019-07-10 2019-07-10 Jasper Dick 1.2.840.4 [id number] Univers 00:00:00 00:00:00 Rosemary [place] 24779.1.1 i ty of 3.104.2.7 [place] .3.149542 Medica l .8 Temple 2019-07-02 2019-07-02 Jasper Goldman 1.2.840.2 [id number] 738 [id number] Univers 00:00:00 00:00:00 [place] 40577.1.1 ity of [place] 3.104.2.7 [place] .3.002659 Medica l .8 Branch 2019-07-01 2019-07-01 Jasper Goldman 1.2.840.4 [id number] 738 [id number] Univers 00:00:00 00:00:00 [place] 76540.1.1 ity of [place] 3.104.2.7 [place] .3.982281 Medica l .8 Temple 2019-06-07 2019-06-07 Jasper Goldman 1.2.840.1 [id number] 733 22348 Univers 00:00:00 00:00:00 Keshawn 31332.1.1 ity of [place] 3.104.2.7 [place] .3.568833 Medica l .8 Branch 2019-05-27 2019-05-27 Telephone Serge 1.2.840.1 [id number] Univers 00:00:00 00:00:00 [place] 09085.1.1 ity of [place] 3.104.2.7 [place] .3.247775 Medica l .8 Branch 2019-05-26 2019-05-26 Orders Doctor 1.2.840.0 [id number] 004 Univers 00:00:00 00:00:00 Only Unassigned, 95467.1.1 ity of [place] 3.104.2.7 [place] .3.099961 Medica l .8 Branch 2019-05-10 2019-05-10 Cherry Dick 1.2.840.4 [id number] 728 [id number] Univers 00:00:00 00:00:00 Rosemary E 55102.1.1 i ty of 3.104.2.7 [place] .3.909799 Medica l .8 Branch 2019-05-10 2019-05-10 Refrafia Goldman 1.2.840.4 [id number] 728 [id number] Univers 00:00:00 00:00:00 [place] 84911.1.1 ity of [place] 3.104.2.7 [place] .3.132811 Medica l .8 Branch 2019-05-09 2019-05-09 Refrafia Dick 1.2.840.8 [id number] [id number] Univers 00:00:00 00:00:00 Rosemary E 03974.1.1 i ty of 3.104.2.7 [place] .3.252385 Medica l .8 Branch 2019-04-12 2019-04-12 Cherry Goldman 1.2.840.8 [id number] Univers 00:00:00 00:00:00 Keshawn 15314.1.1 ity of [place] 3.104.2.7 [place] .3.587255 Medica l .8 Branch 2019-04-11 2019-04-11 Jasper Goldman, 1.2.840.0 [id number] 723 [id number] Univers 00:00:00 00:00:00 [place] 72392.1.1 ity of [place] 3.104.2.7 [place] .3.096418 Medica l .8 Branch 2019-04-10 2019-04-10 Jasper Goldman, 1.2.840.8 [id number] 723 09816 Univers 00:00:00 00:00:00 [place] 59899.1.1 ity of [place] 3.104.2.7 [place] .3.100702 Medica l .8 Branch 2019-04-05 2019-04-05 Jasper Goldman, 1.2.840.4 [id number] 722 63242 Univers 00:00:00 00:00:00 [place] 34176.1.1 ity of [place] 3.104.2.7 [place] .3.666477 Medica l .8 Branch 2019-03-24 2019-03-24 Orders Doctor 1.2.840.5 [id number] Univers 00:00:00 00:00:00 Only Unassigned, 05884.1.1 ity of [place] 3.104.2.7 [place] .3.025886 Medica l .8 Branch 2019-02-24 2019-02-24 Patient Serge, [facility] 1.2.783.463 [id number] [id number] Univers 00:00:00 00:00:00 Secure Msg Keshawn LEAGUE 350.1.13.10 ity of [facility] 4[place]2.7.2.[place] 997.9330273 Mo dical AND [address] [facility] 2019-02-24 2019-02-24 Jasper Goldman, 1.2.840.0 [id number] 715 [id number] Univers 00:00:00 00:00:00 [place] 62479.1.1 ity of [facility] 3.104.2.7 [place] .3.471635 Medica l .8 Branch 2019-02-24 2019-02-24 Jasper Goldman, 1.2.840.2 [id number] 715 [id number] Univers 00:00:00 00:00:00 Keshawn 11268.1.1 ity of [place] 3.104.2.7 [place] .3.030099 Medica l .8 Branch 2019-02-24 2019-02-24 Refrafia Goldman, 1.2.840.5 [id number] 715 [id number] Univers 00:00:00 00:00:00 Keshawn 74715.1.1 ity of [place] 3.104.2.7 [place] .3.434096 Medica l .8 Branch 2019-02-24 2019-02-24 [facility], 1.2.840.0 [id number] 715 [id number] Univers 00:00:00 00:00:00 Keshawn 39537.1.1 ity of [place] 3.104.2.7 [place] .3.651444 Medica l .8 Branch 2019-02-23 2019-02-23 Jasper Goldman, 1.2.840.4 [id number] 715 [id number] Univers 00:00:00 00:00:00 [place] 93227.1.1 ity of [place] 3.104.2.7 [place] .3.902713 Medica l .8 Branch 2019-02-21 2019-02-21 Telephone Serge, 1.2.840.4 [id number] Univers 00:00:00 00:00:00 [place] 12314.1.1 ity of [place] 3.104.2.7 [place] .3.120941 Medica l .8 Branch 2019-02-18 2019-02-18 Office Serge, 1.2.840.5 [id number] Univers 15:49:00 16:04:00 Visit Keshawn 77241.1.1 ity of [place] 3.104.2.7 [place] .3.604594 Medica l .8 Branch 2019-02-17 2019-02-17 Glass Grinder Rosemary Dick 1.2.840.1 [id number] Univers 09:01:36 16:08:39 Visit Vls-Lab 82092.1.1 ity of 3.104.2.7 [place] .3.654649 Medica l .8 Branch 2019-02-17 2019-02-17 Office Isela Dick.2.840.2 [id number] Univers 09:09:27 10:03:06 Visit [place] 54996.1.1 i ty of 3.104.2.7 [place] .3.083242 Medica l .8 [place] 2019-02-11 2019-02-11 Orders Doctor 1.2.840.7 [id number] Univers 00:00:00 00:00:00 Only Unassigned, 43576.1.1 ity of [place] 3.104.2.7 [place] .3.620578 Medica l .8 Temple 2019-02-09 2019-02-09 Refill Serge 1.2.840.1 [id number] 712 [id number] Univers 00:00:00 00:00:00 Keshawn 93584.1.1 ity of [place] 3.104.2.7 [place] .3.026170 Medica l .8 Temple 2019-01-31 2019-01-31 Patient Serge [facility] 1.2.567.405 7139 [id number] Univers 00:00:00 00:00:00 Secure Msg Keshawn PENA 350.1.13.10 ity of [facility] 4.2.7.2.686 [place] 962.6889513 Mo dical AND [address] [facility] E CLINIC 2019-01-11 2019-01-11 Office Serge 1.2.840.3 [id number] [id number] Univers 08:45:17 09:00:17 Visit Keshawn 94483.1.1 ity of [place] 3.104.2.7 [place] .3.124692 Medica l .8 Temple 2019-01-11 2019-01-11 Orders Doctor 1.2.840.4 [id number] Univers 00:00:00 00:00:00 Only Unassigned, 80465.1.1 ity of [place] 3.104.2.7 [place] .3.993004 Medica l .8 Temple 2018-12-21 2018-12-21 Refrafia Goldman 1.2.840.6 [id number] 703 64106 Univers 00:00:00 00:00:00 [place] 59928.1.1 ity of [place] 3.104.2.7 [place] .3.393819 Medica l .8 Branch 2018-12-20 2018-12-20 Jasper Goldman, 1.2.840.8 [id number] 703 33486 Univers 00:00:00 00:00:00 [place] 87575.1.1 ity of [place] 3.104.2.7 [place] .3.373673 Medica l .8 Branch 2018-12-20 2018-12-20 Jasper Goldman 1.2.840.8 [id number] 703 74938 Univers 00:00:00 00:00:00 [place] 76105.1.1 ity of [place] 3.104.2.7 [place] .3.142674 Medica l .8 Branch 2018-12-14 2018-12-14 Jasper Dick, 1.2.840.7 [id number] [id number] Univers 00:00:00 00:00:00 Rosemary E 80034.1.1 i ty of 3.104.2.7 [place] .3.258826 Medica l .8 Temple 2018-11-23 2018-11-23 Jasper Goldman 1.2.840.3 [id number] 698 [id number] Univers 00:00:00 00:00:00 Keshawn 03251.1.1 ity of [place] 3.104.2.7 [place] .3.542449 Medica l .8 Temple 2018-11-19 2018-11-19 Telephone Team, [facility] 1.2.840.0 [id number] Univers 00:00:00 00:00:00 Health 20942.1.1 ity of [place]104.2.7 [place] .3.802204 Medica l .8 [place] 2018-11-18 2018-11-18 Telephone Kapil, 1.2.840.0 [id number] 697 [id number] Univers 00:00:00 00:00:00 Rosemary E 80889.1.1 i ty of 3.104.2.7 [place] .3.598966 Medica l .8 [place] Results Test Description Test Time Test Comments Results Result Comments Source IONIZED CALCIUM 2022-01-25 08:35:55 Test Item Value Reference Range Interpretation Comme nts IONIZED CA (test code = 4252434276) 4.70 mg/dL 4.5-5.3 PH SERUM (test code = 7018934140) 7.35-7.45 L QUES Lab Interpretation (test code = 63862-8) Abnormal [facility] [id number] 04:46:36 Test Item Value Reference Range Interpretation Comments TSH (test code = See_Comment [Automated message] 3757656599) The system [employer] generated this result transmitted ref erence range: 0.45 - 4 .70 mIU/L. The refe rence range was not u sed to interpret this result as normal/abnor mal. Lab Interpretation (test Normal code = 26421-8) [facility], [id number] 04:32:56 Test Item Value Reference Range Interpretation Comments T4 TOTAL (test code = See_Comment [Auto mated 3039721945) message] The system which generated this result transmitted reference range : 5.5 - 11.0 mcg/dL. The reference range was not used to interpret this result as normal/abnormal . JEIMY (test code = JEIMY) Normal Range or Expected Values will vary for patients who are on ovulation control drugs or . ? Lab Interpretation Normal (test code = 31188-9) [facility]EMOGLOBIN (A1C)2022-01-25 04:20:43 Test Item Value Reference Range Interpretation Comments HGB A1C (test code = 8.2 % 4-5.7 H 4548-4) JEIMY (test code = JEIMY) Reference RangesNormal: <5.7%Prediabetes: 5.7 - 6.4%Diabetes: > 6.5% Lab Interpretation (test Abnormal code = 92892-5) [facility]. METABOLIC PANEL (48234)2022-01-25 04:18:51 Test Item Value Reference Range Interpretation Comments NA (test code = 142 mmol/L 135-145 4612889347) K (test code = 3.8 mmol/L 3.5-5 1179518558) CL (test code = 103 mmol/L 98-108 1178474289) CO2 TOTAL (test code 30 mmol/L 23-31 = 7819321156) AGAP (test code = 2-16 7442204658) BUN (test code = 14 mg/dL 7-23 5553719517) GLUCOSE (test code = 78 mg/dL 70-110 2689645848) CREATININE (test code 0.79 mg/dL 0.5-1.04 = 5091051421) TOTAL BILI (test code 0.4 mg/dL 0.1-1.1 = 5684046377) CALCIUM (test code = 9.0 mg/dL 8.6-10.6 7516095945) T PROTEIN (test code 7.2 g/dL 6.3-8.2 = 7229219016) ALBUMIN (test code = 4.6 g/dL 3.5-5 0145174413) ALK PHOS (test code = 72 U/L 34-122 1389203372) ALTv (test code = 18 U/L 5-35 2-6) AST(SGOT) (test code 27 U/L 13-40 = 5864637501) eGFR (test code = mL/min/1.73m2 6056700789) JEIMY (test code = JEIMY) Association of [...] or urine or abnormalities in imaging tests). [facility] WITH [id number] 04:04:32 Test Item Value Reference Range Interpretation [...] (test code = 37.9 fL 39-49.9 L 71186-9) RDW-CV (test code = 11.8 % 12-15.5 L 788-0) PLT (test code = See_Comment [Automated 777-3) message] The sy stem which generated this result transmitted reference range : 166 - 358 10*3/ ?L. The reference r estee was not used to interpret this result as normal/abnormal . MPV (test code = 11.4 fL 9.5-12.9 97847-5) NRBC/100 WBC (test See_Comment [Automat ed code = 9749107779) message] The system which generated this result transmitted reference range : 0.0 - 10.0 /100 WBCs. The refer ence range was not u sed to interpret th is result as normal/abnormal . NRBC x10^3 (test code See_Comment [Auto mated = 3203368154) message] The s ystem which generated this result transmitted reference range : 10*3/?L. The reference range was not used to interpret this result as normal/abnormal . GRAN MAT (NEUT) % 50.2 % (test code = 770-8) IMM GRAN % (test code 0.20 % = [id number]) LYMPH % (test code = 42.4 % 736-9) MONO % (test code = 5.7 % 5905-5) EOS % (test code = 0.7 % 713-8) BASO % (test code = 0.8 % 706-2) GRAN MAT x10^3(ANC) 2.99 10*3/uL 1.88-7.09 (test code = [id number]) IMM GRAN x10^3 (test 0-0.06 code = [id number]) LYMPH x10^3 (test code 2.53 10*3/uL 1.32-3.29 = 731-0) MONO x10^3 (test code 0.34 10*3/uL 0.33-0.92 = 742-7) EOS x10^3 (test code = 0.04 10*3/uL 0.03-0.39 711-2) BASO x10^3 (test code 0.05 10*3/uL 0.01-0.07 = 704-7) Lab Interpretation Abnormal (test code = 90418-7) [facility] WITH [id number] 04:04:32 Test Item Value Reference Range Interpretation Comments WBC (test code = See_Comment [Automated 5190-2) message] The sy stem which generated this result transmitted reference range : 4.30 - 11.10 10*3/?L. The reference range was not used to interpret this result as normal/abnormal . RBC (test code = See_Comment [Automated 189-8) message] The sy stem which generated this [...] (test code = 37.9 fL 39-49.9 L 43756-2) RDW-CV (test code = 11.8 % 12-15.5 L 788-0) PLT (test code = See_Comment [Automated 777-3) message] The sy stem which generated this result transmitted reference range : 166 - 358 10*3/ ?L. The reference r estee was not used to interpret this result as normal/abnormal . MPV (test code = 11.4 fL 9.5-12.9 00224-8) NRBC/100 WBC (test See_Comment [Automat ed code = [id number]) message] The system which generated this result transmitted reference range : 0.0 - 10.0 /100 WBCs. The refer ence range was not u sed to interpret th is result as normal/abnormal . NRBC x10^3 (test code See_Comment [Auto mated = [id number]) message] The s ystem which generated this result transmitted reference range : 10*3/?L. The reference range was not used to interpret this result as normal/abnormal . GRAN MAT (NEUT) % 50.2 % (test code = 770-8) IMM GRAN % (test code 0.20 % = [id number]) LYMPH % (test code = 42.4 % 736-9) MONO % (test code = 5.7 % 5905-5) EOS % (test code = 0.7 % 713-8) BASO % (test code = 0.8 % 706-2) GRAN MAT x10^3(ANC) 2.99 10*3/uL 1.88-7.09 (test code = [id number]) IMM GRAN x10^3 (test 0-0.06 code = [id number]) LYMPH x10^3 (test code 2.53 10*3/uL 1.32-3.29 = 731-0) MONO x10^3 (test code 0.34 10*3/uL 0.33-0.92 = 742-7) EOS x10^3 (test code = 0.04 10*3/uL 0.03-0.39 711-2) BASO x10^3 (test code 0.05 10*3/uL 0.01-0.07 = 704-7) Lab Interpretation Abnormal (test code = 90068-5) [facility] URINALYSIS W SPECIFIC [id number] 19:15:00 Test Item Value Reference Range Interpretation Comments POCT U SP GRAV (test code = 1.015 mg/dl 1.005-1.025 3255) POCT PH U (test code = 3254) 7 mg/dl 5-8 POCT U LEUK EST (test code = + Negative - Negative 3) POCT U NIT (test code = 3262) Negative Negative - Negative POCT U PROT (test code = Trace Negative - Negative 3259) POCT U GLU (test code = 3256) Normal Negative - Negative POCT U KETONE (test code = Negative Negative - Negative 3258) POCT U UROBILI (test code = Normal 0.2-1 0) POCT U BILI (test code = Negative Negative - Negative 3261) POCT U BLD (test code = 3257) about 250 Negative - Negative POCT U COLOR (test code = Dark yellow 3266) POCT U APPEAR (test code = turbid 7) [facility] URINALYSIS W SPECIFIC [id number] 19:15:00 Test Item Value Reference Range Interpretation [...] U APPEAR (test code = turbid 3267) [facility]
[2022-07-11 22:49] LABS: Urine Blood Negative (Negative); Urine Glucose 3+ (Negative); Urine Protein Negative (Negative); Urine Specific Gravity <=1.005 (1.005-1.030); Urine pH 5.5 (5.0-7.0)
[2022-07-11 22:54] LABS: Absolute Lymphocytes (CBC) 1.7 K/uL (0.7-4.9); Hematocrit 41.4 % (36.0-45.0); Lymphocytes % 28.1 % (15.3-44.8); MPV 9.6 fL (7.6-11.3); RBC Red Blood Cell Count 4.81 M/uL (3.86-4.86)
[2022-07-11 22:56] LABS: Urine Bacteria None Seen /HPF (<20); Urine RBC None Seen /HPF (None Seen)
[2022-07-11] MEDS ORDERED: NA CHLORIDE 0.9% 1,000 ML ONE (23:12)
[2022-07-11] MEDS ORDERED: INSULIN -REGULAR HUMAN 50 UNIT/0.5 ML ML ONE (23:12)
[2022-07-11 23:20] LABS: ALT/SGPT 29 U/L (13-56); AST/SGOT 18 U/L (15-37); Albumin 4.1 g/dL (3.4-5.0); Alkaline Phosphatase 95 U/L (45-117); BUN Blood Urea Nitrogen 17 mg/dL (7-18); Bicarbonate 24 mmol/L (21-32); Bilirubin Total 0.4 mg/dL (0.2-1.0); Glomerular Filtration Rate 57 ml/min (=/>90); Lipase 226 U/L (73-393); Magnesium 1.8 mg/dL (1.6-2.4); Potassium 3.9 mmol/L (3.5-5.1); Protein, Total 7.9 g/dL (6.4-8.2); Sodium Level 128 mmol/L (136-145)
[2022-07-11 23:22] LABS: Glucose Level 544 mg/dL (74-106)
[2022-07-12 00:05] LABS: Urine Specific Gravity/Preg <1.005 (1.005-1.030)
[2022-07-12] MEDS ORDERED: NA CHLORIDE 0.9% 1,000 ML ONE (00:34)
--- NOTE | 2022-07-12 01:00 | ER ---
Nurse's Notes [facility] Name: Pamela Richter Age: 41 yrs Sex: Female : 1980 Arrival Date: 07/11/2022 Time: 22:10 Bed 15 Private MD: Diagnosis: Diabetes mellitus due to underlying condition with hyperglycemia Presentation: 07/11 22:23 Chief complaint: Patient states: "I am a type woke diabetic and my blood sugar is high. 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 Coronavirus screen:. Ebola Screen: Patient negative for fever greater than or equal to 101.5 degrees Fahrenheit, and additional compatible Ebola Virus Disease symptoms Patient denies exposure to infectious person. Patient denies travel to an Ebola-affected area in the 21 days before illness onset. Initial Sepsis Screen: Does the patient meet any 2 criteria? HR > 90 bpm. Does the patient have a suspected source of infection? No. Patient's initial sepsis screen is negative. Risk Assessment: Do you want to hurt yourself or someone else? Patient reports no desire to harm self or others. Onset of symptoms is unknown. 22:23 Method Of Arrival: Ambulatory tw5 22:23 Acuity: MANDI 3 tw5 Triage Assessment: 22:25 General: Appears in no apparent distress. Behavior is calm, cooperative, appropriate tw5 for age. Pain: Pain currently is 0 out of 10 on a pain scale. 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 - Social history:: Smoking status: Patient reports the use of cigarette tobacco products, smokes one-half pack cigarettes per day. Screenin:28 [facility] ED Fall Risk Assessment (Adult) History of falling in the last 3 months, tw5 including since admission No falls in past 3 months (0 pts). Abuse screen: Denies threats or abuse. Denies injuries from another. Nutritional screening: No deficits noted. Tuberculosis screening: No symptoms or risk factors identified. Assessment: 22:30 General: Appears in no apparent distress. uncomfortable, Behavior is calm, cooperative, eh3 appropriate for age. Pain: Denies pain. Neuro: Level of Consciousness is awake, alert, obeys commands, Oriented to person, place, time, situation. Cardiovascular: Capillary refill < 3 seconds Patient's skin is warm and dry. Respiratory: Airway is patent Respiratory effort is even, unlabored, Respiratory pattern is regular, symmetrical. GI: No signs and/or symptoms were reported involving the gastrointestinal system. Abdomen is round non-distended. : No signs and/or symptoms were reported regarding the genitourinary system. EENT: No signs and/or symptoms were reported regarding the EENT system. Derm: No signs and/or symptoms reported regarding the dermatologic system. Skin is pink, warm \\T\\ dry. Musculoskeletal: No signs and/or symptoms reported regarding the musculoskeletal system. Circulation, motion, and sensation intact. Range of motion: intact in all extremities. 23:30 Reassessment: Patient appears in no apparent distress at this time. Patient and/or 3 family updated on plan of care and expected duration. Pain level reassessed. Patient is alert, oriented x 3, equal unlabored respirations, skin warm/dry/pink. 07/12 00:30 Reassessment: Patient appears in no apparent distress at this time. Patient and/or 3 family updated on plan of care and expected duration. Pain level reassessed. Patient is alert, oriented x 3, equal unlabored respirations, skin warm/dry/pink. Vital Signs: 07/11 22:23 BP 158 / 90; Pulse 122; Resp 18; Temp 97.8; Pulse Ox 100% ; Weight 72.12 kg; Height 5 tw5 ft. 7 in. (170.18 cm); Pain 0/10; 23:30 BP 138 / 99; Pulse 105; Resp 18; Pulse Ox 100% on R/A; eh3 07/12 00:30 BP 132 / 94; Pulse 99; Resp 18; Pulse Ox 100% on R/A; eh3 07/11 22:23 Body Mass Index 24.90 (72.12 kg, 170.18 cm) tw5 ED Course: 07/11 22:10 Patient arrived in ED. [id number] 22:13 Orion Trevino PA is PHCP. cp 22:14 Jeff Ji MD is Attending Physician. cp 22:24 Anjali Baires, RN is Primary Nurse. [facility] 22:25 Triage completed. tw5 22:25 Arm band placed on. tw5 22:30 Patient has correct armband on for positive identification. Bed in low position. Call [facility] light in reach. Side rails up X2. Pulse ox on. NIBP on. Door closed. Noise minimized. Warm blanket given. 22:38 Inserted saline lock: 20 gauge in left antecubital area, using aseptic technique. Blood zm collected. 22:39 CBC with Diff Sent. zm 22:49 Ketone, Serum Sent. zm 22:49 Urine Microscopic Only Sent. zm 22:49 CMP Sent. zm 22:49 Lipase Sent. 07/12 01:10 No provider procedures requiring assistance completed. IV discontinued, intact, pf1 bleeding controlled, No redness/swelling at site. Pressure dressing applied. Administered Medications: 07/11 22:25 Drug: Insulin Regular Human 10 units {Co-Signature: [facility] (Anjali Baires RN).} Route: IVP; 5 Site: left antecubital; 07/12 00:47 Follow up: Response: Blood sugar is lowered [facility] 07/11 23:25 Drug: NS 0.9% 1000 ml Route: IV; Rate: 1 bolus; Site: left antecubital; [facility] 07/12 01:00 Follow up: IV Status: Completed infusion; IV Intake: 1000ml pf1 01:00 Follow up: Response: No adverse reaction; Marked relief of symptoms pf1 00:46 Drug: NS 0.9% 1000 ml Route: IV; Rate: 1 bolus; Site: left antecubital; [facility] 01:11 Follow up: IV Status: Completed infusion; IV Intake: 500ml pf1 01:11 Follow up: Response: No adverse reaction; Marked relief of symptoms pf1 Medication: 01:11 VIS not applicable for this client. pf1 Intake: 01:00 IV: 1000ml; Total: 1000ml. pf1 01:11 IV: 500ml; Total: 1500ml. pf1 Outcome: 00:59 Discharge ordered by MD. cp 01:10 Discharged to home ambulatory. pf1 01:10 Condition: stable 01:10 Discharge instructions given to patient, Instructed on discharge instructions, follow up and referral plans. medication usage, Demonstrated understanding of instructions, follow-up care, medications, Prescriptions given X 1. 01:12 Patient left the ED. pf1 Signatures: Orion Trevino PA PA cp Wood, Ada tw5 Karolyn Carroll [email or web address] Anjali Baires RN RN 3 Pam Goldman Pamala, RN RN pf1 Anjali Baires RN eh3 Corrections: (The following items were deleted from the chart) 07/11 22:50 22:49 MAGNESIUM+C.LAB.BRZ drawn and sent. EDNJ 23:27 11:25 NS 0.9% 1000 ml IV at 1 bolus in left antecubital 3 3
--- NOTE | 2022-07-12 01:00 | EDPHYS ---
Physician Documentation [facility] Name: Pamela Richter Age: 41 yrs Sex: Female : 1980 Arrival Date: 07/11/2022 Time: 22:10 Bed 15 Private MD: ED Physician Jeff Ji HPI: 07/11 22:25 This 41 yrs old Female presents to ER via Ambulatory with complaints of TYPE 1 cp DIABETIC, High Blood Sugar. 22:25 The patient or guardian reports hyperglycemia, that was potentially precipitated by cp running out of Lantus. 22:25 Onset: The symptoms/episode began/occurred 5 day(s) ago. cp 22:25 Associated signs and symptoms: Pertinent negatives: vomiting, fever, chest pain, cp abdominal pain. Current symptoms: In the emergency department the patient's symptoms are unchanged from the initial presentation. 22:25 The patient has been recently seen at the [facility] Emergency cp Department, this week, for similar complaints labs were performed. 22:25 Patient reports she was told by pharmacy that Lantus was not in stock and was ordered cp and may be ready by Thursday. 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 - Social history:: Smoking status: Patient reports the use of cigarette tobacco products, smokes one-half pack cigarettes per day. ROS: 22:30 Constitutional: Negative for body aches, chills, fever, poor PO intake. cp 22:30 Cardiovascular: Negative for chest pain, edema, palpitations. cp 22:30 Respiratory: Negative for cough, shortness of breath, wheezing. 22:30 Abdomen/GI: Negative for abdominal pain, nausea, vomiting, and diarrhea. 22:30 Eyes: Negative for injury, pain, redness, and discharge. cp 22:30 ENT: Negative for drainage from ear(s), ear pain, sore throat, difficulty swallowing, difficulty handling secretions. 22:30 : Positive for urinary frequency, Negative for hematuria, burning with urination. 22:30 Neuro: Negative for altered mental status, dizziness, headache, weakness. 22:30 All other systems are negative. cp Exam: 22:35 Constitutional: The patient appears in no acute distress, alert, awake, cp non-diaphoretic, non-toxic, well developed, well nourished, anxious. 22:35 Head/Face: Normocephalic, atraumatic. cp 22:35 Eyes: Periorbital structures: appear normal, Conjunctiva: normal, no exudate, no injection, Sclera: no appreciated abnormality, Lids and lashes: appear normal, bilaterally. 22:35 ENT: External ear(s): are unremarkable, Nose: is normal, Mouth: Lips: moist, Oral mucosa: moist, Posterior pharynx: is normal, airway is patent, no erythema, no exudate. 22:35 Neck: ROM/movement: is normal, is supple, without pain, no range of motions limitations. 22:35 Chest/axilla: Inspection: normal. 22:35 Cardiovascular: Rate: tachycardic, Rhythm: regular. 22:35 Respiratory: the patient does not display signs of respiratory distress, Respirations: normal, no use of accessory muscles, no retractions, labored breathing, is not present, Breath sounds: are clear throughout, no decreased breath sounds, no stridor, no wheezing. 22:35 Abdomen/GI: Inspection: abdomen appears normal, Bowel sounds: active, all quadrants, Palpation: abdomen is soft and non-tender, in all quadrants. 22:35 Skin: cellulitis, is not appreciated, no rash present. 22:35 Neuro: Orientation: to person, place \T\ time. Mentation: is normal, Motor: moves all fours, strength is normal, Sensation: is normal. 23:47 ECG was reviewed by the Attending Physician. cp Vital Signs: 22:23 BP 158 / 90; Pulse 122; Resp 18; Temp 97.8; Pulse Ox 100% ; Weight 72.12 kg; Height 5 tw5 ft. 7 in. (170.18 cm); Pain 0/10; 23:30 BP 138 / 99; Pulse 105; Resp 18; Pulse Ox 100% on R/A; eh3 07/12 00:30 BP 132 / 94; Pulse 99; Resp 18; Pulse Ox 100% on R/A; 3 07/11 22:23 Body Mass Index 24.90 (72.12 kg, 170.18 cm) tw5 MDM: 07/11 22:20 Patient medically screened. 22:30 Differential diagnosis: DKA, hyperglycemia, hyperthyroidism, thyroid storm, sepsis, UTI. 07/12 00:58 Data reviewed: vital signs, nurses notes, lab test result(s), EKG. 00:58 Consideration of Admission/Observation Escalation of care including cp admission/observation considered. I considered the following discharge prescriptions or medication management in the emergency department Medications were administered in the Emergency Department. See MAR. Care significantly affected by the following chronic conditions: Diabetes. Counseling: I had a detailed discussion with the patient and/or guardian regarding: the historical points, exam findings, and any diagnostic results supporting the discharge/admit diagnosis, lab results, the need for outpatient follow up, a family practitioner, to return to the emergency department if symptoms worsen or persist or if there are any questions or concerns that arise at home. Response to treatment: the patient's symptoms have markedly improved after treatment, and as a result, I will discharge patient. 07/11 22:23 Order name: CBC with Diff; Complete Time: 23:06 07/12 00:07 Interpretation: Reviewed. 07/11 22:23 Order name: CMP; Complete Time: 23:23 07/11 23:28 Interpretation: NA 128; CL 95; GLUC 544; CRE 1.21; GFR 57; GLOB 3.8; Reviewed. 07/11 22:23 Order name: Lipase; Complete Time: 23:23 cp 07/11 22:23 Order name: Urine Microscopic Only; Complete Time: 23:06 07/11 22:23 Order name: Ketone, Serum; Complete Time: 23:23 07/11 23:06 Interpretation: ACET NEG; Reviewed. 07/11 22:36 Order name: Glucose, Ancillary Testing; Complete Time: 23:06 EDMS 07/11 23:06 Interpretation: Abnormal: GLUC,ANCIL 481. 07/11 22:49 Order name: Urine Dipstick-Ancillary; Complete Time: 23:06 EDMS 07/12 00:07 Interpretation: Normal except: UGLUC 3+. cp 07/11 22:50 Order name: Magnesium; Complete Time: 23:23 EDMS 07/11 22:52 Order name: Urine --Ancillary (enter results); Complete Time: 00:07 wm 07/12 00:07 Interpretation: Reviewed. cp 07/12 00:56 Order name: Glucose, Ancillary Testing; Complete Time: 00:58 EDMS 07/12 00:58 Interpretation: Reviewed. cp 07/11 22:23 Order name: IV Saline Lock; Complete Time: 22:39 cp 07/11 22:23 Order name: Labs collected and sent; Complete Time: 22:39 cp 07/11 22:23 Order name: Urine Dipstick-Ancillary (obtain specimen); Complete Time: 22:49 cp 07/11 22:23 Order name: Urine Test (obtain specimen); Complete Time: 22:49 cp 07/11 22:23 Order name: Accucheck Blood Glucose; Complete Time: 22:24 cp 07/11 22:28 Order name: EKG; Complete Time: 22:29 cp 07/11 22:28 Order name: EKG - Nurse/Tech; Complete Time: 23:44 cp 07/12 00:38 Order name: Accucheck Blood Glucose; Complete Time: 00:46 cp EC/03 23:47 Rate is 100 beats/min. Rhythm is regular. IL interval is normal. QRS interval is cp normal. QT interval is normal. T waves are Inverted in lead aVR. Interpreted by me. Reviewed by me. Administered Medications: 22:25 Drug: Insulin Regular Human 10 units {Co-Signature: eh3 (Anjali Baires RN).} Route: IVP; tw5 Site: left antecubital; 07/12 00:47 Follow up: Response: Blood sugar is lowered [facility] 07/11 23:25 Drug: NS 0.9% 1000 ml Route: IV; Rate: 1 bolus; Site: left antecubital; [facility] 07/12 01:00 Follow up: IV Status: Completed infusion; IV Intake: 1000ml pf1 01:00 Follow up: Response: No adverse reaction; Marked relief of symptoms pf1 00:46 Drug: NS 0.9% 1000 ml Route: IV; Rate: 1 bolus; Site: left antecubital; eh3 01:11 Follow up: IV Status: Completed infusion; IV Intake: 500ml pf1 01:11 Follow up: Response: No adverse reaction; Marked relief of symptoms pf1 Disposition: 01:27 I reviewed the patient's care provided by the Advanced Practice Provider and agree with car the diagnosis and treatment plan. Disposition Summary: 07/12/22 00:59 Discharge Ordered Location: Home cp Problem: an acute exacerbation cp Symptoms: have improved cp Condition: Stable cp Diagnosis - Diabetes mellitus due to underlying condition with hyperglycemia cp Followup: cp - With: Private Physician - When: 2 - 3 days - Reason: Recheck today's complaints Discharge Instructions: - Discharge Summary Sheet cp - Hyperglycemia cp - Blood Glucose Monitoring, Adult cp - Diabetes Mellitus and Nutrition, Adult cp Forms: - Medication Reconciliation Form cp - Thank You Letter cp - Antibiotic Education cp - Prescription Opioid Use cp Prescriptions: - Lantus Solostar U-100 Insulin 100 unit/mL (3 mL) Subcutaneous insulin pen - inject 20 unit by SUBCUTANEOUS route every 12 hours; 1 box; Refills: 0, Product cp Selection Permitted Signatures: Dispatcher [employer] EDMS Orion Trevino PA PA cp Wood, Tiffany tw5 Jeff Ji MD MD [id number] Anjali Baires RN RN eh3 Denise fine RN pf1 Anjali Baires RN eh3 Corrections: (The following items were deleted from the chart) 07/11 22:50 22:29 MAGNESIUM+C.LAB.BRZ ordered. EDMS EDMS
[2022-07-12 01:27] VITALS: TEMP 97.8; O2SAT 100
[2022-07-12 01:51] VITALS: BP 132/94
== END 2022-07-12 01:12 | disposition home or self-care (01) ==
LOC: ER 22:08
DX: E10.65 Type 1 diabetes mellitus with hyperglycemia (principal); I10 Essential (primary) hypertension; F41.9 Anxiety disorder, unspecified; F17.210 Nicotine dependence, cigarettes, uncomplicated; Z79.4 Long term (current) use of insulin
CPT/HCPCS: 96361; 93005; 85025; 36415; 82010; 83735; 81025; 82947 ×2; 83690; 80053; 96374; 99284; J1815; J7030 ×2; 81003; 81015

== ENCOUNTER 2022-12-07 02:41 | Emergency (ER) | payer MEDICARE, OTHER ==
[2022-12-07] MEDS ORDERED: D10W 500 ML IV ONE (02:48)
--- OUTSIDE RECORDS SUMMARY | 2022-12-07 03:03 | XMS REPORT | Continuity of Care Document ---
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 00 skin twice Medical INSULIN) a day. Branch 100 unit/mL injection insulin Yes [id number] inject 20 [facility] glargine 2-20 Units ity of (LANTUS 00:00: under the [place] U-100 00 skin twice Medical INSULIN) a day. Branch 100 unit/mL injection Insulin Yes [id number] Use to Uni vers Syringe-Nee 2-20 inject ity of dle U-100 1 00:00: insulin 4X [place] mL 31 gauge 00 daily. Medica l x 5/16 Syrg [email or web address] [facility] Insulin Yes [id number] Use to Uni vers Syringe-Nee 2-20 inject ity of dle U-100 1 00:00: insulin 4X [place] mL 31 gauge 00 daily. Medica l x 5/16 Syrg [email or web address] [facility] insulin Yes [id number] inject 20 [facility] glargine 2-20 Units ity of (LANTUS 00:00: under the [place] U-100 00 skin twice Medical INSULIN) a day. Branch 100 unit/mL injection Insulin Yes [id number] Use to Uni vers Syringe-Nee 2-20 inject ity of dle U-100 1 00:00: insulin 4X [place] mL 31 gauge 00 daily. Medica l x 5/16 Syrg DX:[email or web address] [facility] insulin Yes [id number] inject 20 [facility] glargine 2-20 Units ity of (LANTUS 00:00: under the [place] U-100 00 skin twice Medical INSULIN) a day. Branch 100 unit/mL injection Insulin Yes [id number] Use to Uni vers Syringe-Nee 2-20 inject ity of dle U-100 1 00:00: insulin 4X [place] mL 31 gauge 00 daily. Medica l x 5/16 Syrg [email or web address] [facility] insulin 0 Yes [id number] inject 20 [facility] glargine 2-20 Units ity of (LANTUS 00:00: under the [place] U-100 00 skin twice Medical INSULIN) a day. Branch 100 unit/mL injection Insulin 0 Yes [id number] Use to Uni vers Syringe-Nee 2-20 inject ity of dle U-100 1 00:00: insulin 4X [place] mL 31 gauge 00 daily. Medica l x 5/16 Syrg DX:[email or web address] [facility] insulin Yes [id number] inject 20 [facility] glargine 2-20 Units ity of (LANTUS 00:00: under the [place] U-100 00 skin twice Medical INSULIN) a day. Branch 100 unit/mL injection Insulin 0 Yes [id number] Use to Uni vers Syringe-Nee 2-20 inject ity of dle U-100 1 00:00: insulin 4X [place] mL 31 gauge 00 daily. Medica l x 516 Syrg DX:[email or web address] [facility] insulin Yes [id number] inject 20 [facility] glargine 2-20 Units ity of (LANTUS 00:00: under the [place] U-100 00 skin twice Medical INSULIN) a day. Branch 100 unit/mL injection Insulin 0 Yes [id number] Use to Uni vers Syringe-Nee 2-20 inject ity of dle U-100 1 00:00: insulin 4X [place] mL 31 gauge 00 daily. Medica l x 5/16 Syrg [email or web address] [facility] Insulin 0 Yes [id number] Use to Uni vers Syringe-Nee 2-20 inject ity of dle U-100 1 00:00: insulin 4X [place] mL 31 gauge 00 daily. Medica l x 5/16 Syrg [email or web address]:[email or web address] [facility] Insulin 0 Yes [id number] Use to Uni vers Syringe-Nee 2-20 inject ity of dle U-100 1 00:00: insulin 4X [place] mL 31 gauge 00 daily. Medica l x 5/16 Syrg [email or web address] [facility] Insulin Yes [id number] Use to Uni vers Syringe-Nee 2-20 inject ity of dle U-100 1 00:00: insulin 4X [place] mL 31 gauge 00 daily. Medica l x 10/21 Syrg DX:[email or web address] [facility] Insulin Yes [id number] Use to Uni vers Syringe-Nee 2-20 inject ity of dle U-100 1 00:00: insulin 4X [place] mL 31 gauge 00 daily. Medica l x 10/21 Syrg DX:[email or web address] [facility] Insulin Yes [id number] Use to Uni vers Syringe-Nee 2-20 inject ity of dle U-100 1 00:00: insulin 4X [place] mL 31 gauge 00 daily. Medica l x 10/21 Syrg DX:[email or web address] [facility] Insulin Yes [id number] Use to Uni vers Syringe-Nee 2-20 inject ity of dle U-100 1 00:00: insulin 4X [place] mL 31 gauge 00 daily. Medica l x 10/21 Syrg DX:[email or web address] [facility] Insulin Yes [id number] Use to Uni vers Syringe-Nee 2-20 inject ity of dle U-100 1 00:00: insulin 4X [place] mL 31 gauge 00 daily. Medica l x 10/21 Syrg DX:[email or web address] [facility] Insulin Yes [id number] Use to Uni vers Syringe-Nee 2-20 inject ity of dle U-100 1 00:00: insulin 4X [place] mL 31 gauge 00 daily. Medica l x 10/21 Syrg DX:[email or web address] [facility] insulin 2022- No [id number] inject 20 [facility] glargine 2-20 03-06 Units ity of ([place] 00:00: 00:[place] U-100 00 :00 skin twice Medical INSULIN) a day. Branch 100 unit/mL injection insulin 2022- No [id number] inject 20 [facility] glargine 2-20 03-06 Units ity of ([place] 00:00: 00:[place] U-100 00 :00 skin twice Medical INSULIN) a day. Branch 100 unit/mL injection medroxyPROG 2023-0 Yes [id number] 5mg Take 1 [facility] ESTERone 5 2-07 tablet by ity of mg tablet 00:00: [place] 00 the Medical morning. Branch medroxyPROG 2023-0 Yes [id number] 5mg Take 1 [facility] ESTERone 5 2-07 tablet by ity of mg tablet 00:00: [place] 00 the Medical morning. Branch medroxyPROG 2023-0 Yes [id number] 5mg Take 1 [facility] ESTERone 5 2-07 tablet by ity of mg tablet 00:00: [place] 00 the Medical morning. Branch medroxyPROG 2023-0 Yes [id number] 5mg Take 1 [facility] ESTERone 5 2-07 tablet by ity of mg tablet 00:00: [place] 00 the Medical morning. Branch medroxyPROG 2023-0 Yes [id number] 5mg Take 1 [facility] ESTERone 5 2-07 tablet by ity of mg tablet 00:00: [place] 00 the Medical morning. Branch medroxyPROG 2023-0 Yes [id number] 5mg Take 1 [facility] ESTERone 5 2-07 tablet by ity of mg tablet 00:00: [place] 00 the Medical morning. Branch medroxyPROG 2023-0 Yes [id number] 5mg Take 1 [facility] ESTERone 5 2-07 tablet by ity of mg tablet 00:00: [place] 00 the Medical morning. Branch medroxyPROG 2023-0 Yes [id number] 5mg Take 1 [facility] ESTERone 5 2-07 tablet by ity of mg tablet 00:00: [place] 00 the Medical morning. Branch medroxyPROG 2023-0 Yes [id number] 5mg Take 1 [facility] ESTERone 5 2-07 tablet by ity of mg tablet 00:00: [place] 00 the Medical morning. Branch medroxyPROG 2023-0 Yes [id number] 5mg Take 1 [facility] ESTERone 5 2-07 tablet by ity of mg tablet 00:00: [place] 00 the Medical morning. Branch medroxyPROG 2023-0 Yes [id number] 5mg Take 1 [facility] ESTERone 5 2-07 tablet by ity of mg tablet 00:00: [place] 00 the Medical morning. Branch medroxyPROG 2023-0 Yes [id number] 5mg Take 1 [facility] ESTERone 5 2-07 tablet by ity of mg tablet 00:00: [place] 00 the Medical morning. Branch medroxyPROG 2023-0 Yes [id number] 5mg Take 1 [facility] ESTERone 5 2-07 tablet by ity of mg tablet 00:00: [place] 00 the Medical morning. Branch medroxyPROG 2023-0 Yes [id number] 5mg Take 1 [facility] ESTERone 5 2-07 tablet by ity of mg tablet 00:00: [place] 00 the Medical morning. Branch medroxyPROG 2023-0 Yes [id number] 5mg Take 1 [facility] ESTERone 5 2-07 tablet by ity of mg tablet 00:00: [place] 00 the Medical morning. Branch medroxyPROG 2023-0 Yes [id number] 5mg Take 1 [facility] ESTERone 5 2-07 tablet by ity of mg tablet 00:00: [place] 00 the Medical morning. Branch medroxyPROG 2023-0 Yes [id number] 5mg Take 1 [facility] ESTERone 5 2-07 tablet by ity of mg tablet 00:00: [place] 00 the Medical morning. Branch medroxyPROG 2023-0 Yes [id number] 5mg Take 1 [facility] ESTERone 5 2-07 tablet by ity of mg tablet 00:00: [place] 00 the Medical morning. Branch medroxyPROG 2023-0 Yes [id number] 5mg Take 1 [facility] ESTERone 5 2-07 tablet by ity of mg tablet 00:00: [place] 00 the Medical morning. Branch medroxyPROG 2023-0 Yes [id number] 5mg Take 1 [facility] ESTERone 5 2-07 tablet by ity of mg tablet 00:00: [place] 00 the Medical morning. Branch medroxyPROG 2023-0 Yes [id number] 5mg Take 1 [facility] ESTERone 5 2-07 tablet by ity of mg tablet 00:00: [place] 00 the Medical morning. Branch medroxyPROG 2023-0 Yes [id number] 5mg Take 1 [facility] ESTERone 5 2-07 tablet by ity of mg tablet 00:00: [place] 00 the Medical morning. Branch medroxyPROG 2023-0 Yes [id number] 5mg Take 1 [facility] ESTERone 5 2-07 tablet by ity of mg tablet 00:00: [place] 00 the Medical morning. Branch medroxyPROG 2023-0 Yes [id number] 5mg Take 1 [facility] ESTERone 5 2-07 tablet by ity of mg tablet 00:00: [place] 00 the Medical morning. Branch medroxyPROG 2023-0 Yes [id number] 5mg Take 1 [facility] ESTERone 5 2-07 tablet by ity of mg tablet 00:00: [place] 00 the Medical morning. Branch medroxyPROG 2023-0 Yes [id number] 5mg Take 1 [facility] ESTERone 5 2-07 tablet by ity of mg tablet 00:00: [place] 00 the Medical morning. Branch medroxyPROG 2023-0 Yes [id number] 5mg Take 1 [facility] ESTERone 5 2-07 tablet by ity of mg tablet 00:00: [place] 00 the Medical morning. Branch medroxyPROG 2023-0 Yes [id number] 2.5mg Take 1 [facility] ESTERone 2-03 tablet by ity of 2.5 mg 00:00: mouth in [place] tablet 00 the Medical morning. Branch medroxyPROG 2023-0 Yes [id number] 2.5mg Take 1 [facility] ESTERone 2-03 tablet by ity of 2.5 mg 00:00: mouth in [place] tablet 00 the Medical morning. Branch medroxyPROG 2023-0 2023- No [id number] 2.5mg Take 1 [facility] ESTERone 2-03 02-07 tablet by ity o f 2.5 mg 00:00: 00:00 mouth in [place] tablet 00 :00 the Medical morning. Branch insulin 2022-0 Yes [id number] inject 20 [facility] glargine 2-02 Units ity of (LANTUS 00:00: under the [place] U-100 00 skin twice Medical INSULIN) a day. Branch 100 unit/mL injection insulin 2022-0 Yes [id number] inject 20 [facility] glargine 2-02 Units ity of (LANTUS 00:00: under the [place] U-100 00 skin twice Medical INSULIN) a day. Branch 100 unit/mL injection insulin 0 Yes [id number] inject 20 [facility] glargine 2-02 Units ity of (LANTUS 00:00: under the [place] U-100 00 skin twice Medical INSULIN) a day. Branch 100 unit/mL injection insulin 0 Yes [id number] inject 20 [facility] glargine 2-02 Units ity of (LANTUS 00:00: under the [place] U-100 00 skin twice Medical INSULIN) a day. Branch 100 unit/mL injection insulin 0 Yes [id number] inject 20 [facility] glargine 2-02 Units ity of (LANTUS 00:00: under the [place] U-100 00 skin twice Medical INSULIN) a day. Branch 100 unit/mL injection insulin 0 Yes [id number] inject 20 [facility] glargine 2-02 Units ity of (LANTUS 00:00: under the [place] U-100 00 skin twice Medical INSULIN) a day. Branch 100 unit/mL injection insulin 0 Yes [id number] inject 20 [facility] glargine 2-02 Units ity of (LANTUS 00:00: under the [place] U-100 00 skin twice Medical INSULIN) a day. Branch 100 unit/mL injection insulin 0 Yes [id number] inject 20 [facility] glargine 2-02 Units ity of (LANTUS 00:00: under the [place] U-100 00 skin twice Medical INSULIN) a day. Branch 100 unit/mL injection insulin 0 Yes [id number] inject 20 [facility] glargine 2-02 Units ity of (LANTUS 00:00: under the [place] U-100 00 skin twice Medical INSULIN) a day. Branch 100 unit/mL injection insulin 0 Yes [id number] inject 20 [facility] glargine 2-02 Units ity of (LANTUS 00:00: under the [place] U-100 00 skin twice Medical INSULIN) a day. Branch 100 unit/mL injection insulin 0 Yes [id number] inject 20 [facility] glargine 2-02 Units ity of (LANTUS 00:00: under the [place] U-100 00 skin twice Medical INSULIN) a day. Branch 100 unit/mL injection insulin Yes [id number] inject 20 [facility] glargine 2-02 Units ity of (LANTUS 00:00: under the [place] U-100 00 skin twice Medical INSULIN) a day. Branch 100 unit/mL injection insulin Yes [id number] inject 20 [facility] glargine 2-02 Units ity of (LANTUS 00:00: under the [place] U-100 00 skin twice Medical INSULIN) a day. Branch 100 unit/mL injection insulin Yes [id number] inject 20 [facility] glargine 2-02 Units ity of (LANTUS 00:00: under the [place] U-100 00 skin twice Medical INSULIN) a day. Branch 100 unit/mL injection insulin 2022- No [id number] inject 20 [facility] glargine 2-02 02-20 Units ity of ([place] 00:00: 00:00 [place] U-100 00 :00 skin twice Medical INSULIN) a day. Branch 100 unit/mL injection insulin 2022- No [id number] inject 20 [facility] glargine 2-02 02-20 Units ity of ([place] 00:00: 00:[place] U-100 00 :00 skin twice Medical INSULIN) a day. Branch 100 unit/mL injection insulin Yes [id number] inject 20 [facility] glargine 1-30 Units ity of (LANTUS 00:00: under the [place] U-100 00 skin twice Medical INSULIN) a day. Branch 100 unit/mL injection insulin Yes [id number] inject 20 [facility] glargine 1-30 Units ity of (LANTUS 00:00: under the [place] U-100 00 skin twice Medical INSULIN) a day. Branch 100 unit/mL injection insulin Yes [id number] inject 20 [facility] glargine 1-30 Units ity of (LANTUS 00:00: under the [place] U-100 00 skin twice Medical INSULIN) a day. Branch 100 unit/mL injection insulin 2022- No [id number] inject 20 [facility] glargine 1-30 02-02 Units ity of ([place] 00:00: 00:00 [place] U-100 00 :00 skin twice Medical INSULIN) a day. Branch 100 unit/mL injection LAMOTRIGINE 2022-0 Yes [id number] 200mg TAKE 2 [facility] 100 mg 1-18 TABLETS BY ity of tablet 00:00: MOUTH IN [place] 00 THE Medical MORNING Branch PRAZOSIN 1 2022-0 Yes [id number] 1mg TAKE 1 U nivers mg capsule 1-18 CAPSULE BY ity of 00:00: MOUTH AT [place] BEDTIME Medical Branch LAMOTRIGINE 2022-0 Yes [id number] 200mg TAKE 2 [facility] 100 mg 1-18 TABLETS BY ity of tablet 00:00: MOUTH IN [place] [address] THE Medical MORNING Branch PRAZOSIN 1 2022-0 Yes [id number] 1mg TAKE 1 U nivers mg capsule 1-18 CAPSULE BY ity of 00:00: MOUTH AT [place] [facility] Medical Branch LAMOTRIGINE 2022-0 Yes [id number] 200mg TAKE 2 [facility] 100 mg 1-18 TABLETS BY ity of tablet 00:00: MOUTH IN [place] [address] THE Medical MORNING Branch PRAZOSIN 1 2022-0 Yes [id number] 1mg TAKE 1 U nivers mg capsule 1-18 CAPSULE BY ity of 00:00: MOUTH AT [place] [address] BEDTIME Medical Branch LAMOTRIGINE 2022-0 Yes [id number] 200mg TAKE 2 [facility] 100 mg 1-18 TABLETS BY ity of tablet 00:00: MOUTH IN [place] 00 THE Medical MORNING Branch PRAZOSIN 1 2022-0 Yes [id number] 1mg TAKE 1 U nivers mg capsule 1-18 CAPSULE BY ity of 00:00: MOUTH AT [place] [facility] Medical Branch LAMOTRIGINE 2022-0 Yes [id number] 200mg TAKE 2 [facility] 100 mg 1-18 TABLETS BY ity of tablet 00:00: MOUTH IN [place] [address] THE Medical MORNING Branch PRAZOSIN 1 2022-0 Yes [id number] 1mg TAKE 1 U nivers mg capsule 1-18 CAPSULE BY ity of 00:00: MOUTH AT [address] Medical Branch LAMOTRIGINE 2022-0 Yes [id number] 200mg TAKE 2 [facility] 100 mg 1-18 TABLETS BY ity of tablet 00:00: MOUTH IN [place] [address] THE Medical MORNING Branch PRAZOSIN 1 2022-0 Yes [id number] 1mg TAKE 1 U nivers mg capsule 1-18 CAPSULE BY ity of 00:00: MOUTH AT [place] 00 BEDTIME Medical Branch LAMOTRIGINE 2022-0 Yes [id number] 200mg TAKE 2 [facility] 100 mg 1-18 TABLETS BY ity of tablet 00:00: MOUTH IN [place] THE Medical MORNING Branch PRAZOSIN 1 2022-0 Yes [id number] 1mg TAKE 1 U nivers mg capsule 1-18 CAPSULE BY ity of 00:00: MOUTH AT [place] BEDTIME Medical Branch LAMOTRIGINE 2022-0 Yes [id number] 200mg TAKE 2 [facility] 100 mg 1-18 TABLETS BY ity of tablet 00:00: MOUTH IN [place] THE Medical MORNING Branch PRAZOSIN 1 2022-0 Yes [id number] 1mg TAKE 1 U nivers mg capsule 1-18 CAPSULE BY ity of 00:00: MOUTH AT [place] BEDTIME Medical Branch LAMOTRIGINE 2022-0 Yes [id number] 200mg TAKE 2 [facility] 100 mg 1-18 TABLETS BY ity of tablet 00:00: MOUTH IN [place] THE Medical MORNING Branch PRAZOSIN 1 2022-0 Yes [id number] 1mg TAKE 1 U nivers mg capsule 1-18 CAPSULE BY ity of 00:00: [facility] [place] [facility] LAMOT[facility]IG[facility] 2022-0 Yes [id number] 200mg TAKE 2 [facility] 100 mg 1-18 TABLETS BY ity of tablet 00:00: MOUTH IN [place] THE Medical MORNING Branch PRAZOSIN 1 2022-0 Yes [id number] 1mg TAKE 1 U nivers mg capsule 1-18 CAPSULE BY ity of 00:00: [facility] [place] [facility] LAMOTRIGINE 2022-0 Yes [id number] 200mg TAKE 2 [facility] 100 mg 1-18 TABLETS BY ity of tablet 00:00: MOUTH IN [place] THE Medical MORNING Branch PRAZOSIN 1 2022-0 Yes [id number] 1mg TAKE 1 U nivers mg capsule 1-18 CAPSULE BY ity of 00:00: [facility] [place] [facility] LAMOTRIGINE 2022-0 Yes [id number] 200mg TAKE 2 [facility] 100 mg 1-18 TABLETS BY ity of tablet 00:00: MOUTH IN [place] THE Medical MORNING Branch PRAZOSIN 1 2022-0 Yes [id number] 1mg TAKE 1 U nivers mg capsule 1-18 CAPSULE BY ity of 00:00: [address] Branch LAMOTRIGINE 2022-0 Yes [id number] 200mg TAKE 2 [facility] 100 mg 1-18 TABLETS BY ity of tablet 00:00: MOUTH IN [place] THE Medical MORNING Branch PRAZOSIN 1 2022-0 Yes [id number] 1mg TAKE 1 U nivers mg capsule 1-18 CAPSULE BY ity of 00:00: MOUTH AT [place] BEDTIME Medical Branch LAMOTRIGINE 2022-0 Yes [id number] 200mg TAKE 2 [facility] 100 mg 1-18 TABLETS BY ity of tablet 00:00: MOUTH IN [place] THE Medical MORNING Branch PRAZOSIN 1 2022-0 Yes [id number] 1mg TAKE 1 U nivers mg capsule 1-18 CAPSULE BY ity of 00:00: MOUTH AT [place] BEDTIME Medical Branch LAMOTRIGINE 2022-0 Yes [id number] 200mg TAKE 2 [facility] 100 mg 1-18 TABLETS BY ity of tablet 00:00: MOUTH IN [place] [address] THE Medical MORNING Branch PRAZOSIN 1 2022-0 Yes [id number] 1mg TAKE 1 U nivers mg capsule 1-18 CAPSULE BY ity of 00:00: [facility] [place] [facility] LAMOTRIGINE 2022-0 Yes [id number] 200mg TAKE 2 [facility] 100 mg 1-18 TABLETS BY ity of tablet 00:00: MOUTH IN [place] THE Medical MORNING Branch PRAZOSIN 1 2022-0 Yes [id number] 1mg TAKE 1 U nivers mg capsule 1-18 CAPSULE BY ity of 00:00: MOUTH AT [address] Medical Branch LAMOTRIGINE 2022-0 Yes [id number] 200mg TAKE 2 [facility] 100 mg 1-18 TABLETS BY ity of tablet 00:00: MOUTH IN [place] THE Medical MORNING Branch PRAZOSIN 1 2022-0 Yes [id number] 1mg TAKE 1 U nivers mg capsule 1-18 CAPSULE BY ity of 00:00: [address] Branch LAMOTRIGINE 2022-0 Yes [id number] 200mg TAKE 2 [facility] 100 mg 1-18 TABLETS BY ity of tablet 00:00: MOUTH IN [place] THE Medical MORNING Branch PRAZOSIN 1 2022-0 Yes [id number] 1mg TAKE 1 U nivers mg capsule 1-18 CAPSULE BY ity of 00:00: [address] Branch LAMOTRIGINE 2022-0 Yes [id number] 200mg TAKE 2 [facility] 100 mg 1-18 TABLETS BY ity of tablet 00:00: MOUTH IN [place] 00 THE Medical MORNING Branch PRAZOSIN 1 2022-0 Yes [id number] 1mg TAKE 1 U nivers mg capsule 1-18 CAPSULE BY ity of 00:00: MOUTH AT [place] BEDTIME Medical Branch LAMOTRIGINE 2022-0 Yes [id number] 200mg TAKE 2 [facility] 100 mg 1-18 TABLETS BY ity of tablet 00:00: MOUTH IN [place] 00 THE Medical MORNING Branch PRAZOSIN 1 2022-0 Yes [id number] 1mg TAKE 1 U nivers mg capsule 1-18 CAPSULE BY ity of 00:00: MOUTH AT [place] BEDTIME Medical Branch LAMOTRIGINE 2022-0 Yes [id number] 200mg TAKE 2 [facility] 100 mg 1-18 TABLETS BY ity of tablet 00:00: MOUTH IN [place] 00 THE Medical MORNING Branch PRAZOSIN 1 2022-0 Yes [id number] 1mg TAKE 1 U nivers mg capsule 1-18 CAPSULE BY ity of 00:00: MOUTH AT [place] BEDTIME Medical Branch LAMOTRIGINE 2022-0 Yes [id number] 200mg TAKE 2 [facility] 100 mg 1-18 TABLETS BY ity of tablet 00:00: MOUTH IN [place] 00 THE Medical MORNING Branch PRAZOSIN 1 2022-0 Yes [id number] 1mg TAKE 1 U nivers mg capsule 1-18 CAPSULE BY ity of 00:00: MOUTH AT [place] BEDTIME Medical Branch LAMOTRIGINE 2022-0 Yes [id number] 200mg TAKE 2 [facility] 100 mg 1-18 TABLETS BY ity of tablet 00:00: MOUTH IN [place] 00 THE Medical MORNING Branch PRAZOSIN 1 2022-0 Yes [id number] 1mg TAKE 1 U nivers mg capsule 1-18 CAPSULE BY ity of 00:00: MOUTH AT [place] BEDTIME Medical Branch LAMOTRIGINE 2022-0 Yes [id number] 200mg TAKE 2 [facility] 100 mg 1-18 TABLETS BY ity of tablet 00:00: MOUTH IN [place] 00 THE Medical MORNING Branch PRAZOSIN 1 2022-0 Yes [id number] 1mg TAKE 1 U nivers mg capsule 1-18 CAPSULE BY ity of 00:00: MOUTH AT [place] [address] BEDTIME Medical Branch LAMOTRIGINE 2022-0 Yes [id number] 200mg TAKE 2 [facility] 100 mg 1-18 TABLETS BY ity of tablet 00:00: MOUTH IN [place] 00 THE Medical MORNING Branch PRAZOSIN 1 2022-0 Yes [id number] 1mg TAKE 1 U nivers mg capsule 1-18 CAPSULE BY ity of 00:00: MOUTH AT [place] BEDTIME Medical Branch LAMOTRIGINE 2022-0 Yes [id number] 200mg TAKE 2 [facility] 100 mg 1-18 TABLETS BY ity of tablet 00:00: MOUTH IN [place] 00 THE Medical MORNING Branch PRAZOSIN 1 2022-0 Yes [id number] 1mg TAKE 1 U nivers mg capsule 1-18 CAPSULE BY ity of 00:00: MOUTH AT [place] BEDTIME Medical Branch LAMOTRIGINE 2022-0 Yes [id number] 200mg TAKE 2 [facility] 100 mg 1-18 TABLETS BY ity of tablet 00:00: MOUTH IN [place] THE Medical MORNING Branch PRAZOSIN 1 2022- Yes [id number] 1mg TAKE 1 U nivers mg capsule 1-18 CAPSULE BY ity of 00:00: MOUTH AT [place] BEDTIME Medical Branch LAMOTRIGINE 2022-0 Yes [id number] 200mg TAKE 2 [facility] 100 mg 1-18 TABLETS BY ity of tablet 00:00: MOUTH IN [place] THE Medical MORNING Branch PRAZOSIN 1 2022-0 Yes [id number] 1mg TAKE 1 U nivers mg capsule 1-18 CAPSULE BY ity of 00:00: MOUTH AT [place] BEDTIME Medical Branch LAMOTRIGINE 2022-0 Yes [id number] 200mg TAKE 2 [facility] 100 mg 1-18 TABLETS BY ity of tablet 00:00: MOUTH IN [place] THE Medical MORNING Branch PRAZOSIN 1 2022-0 Yes [id number] 1mg TAKE 1 U nivers mg capsule 1-18 CAPSULE BY ity of 00:00: MOUTH AT [place] BEDTIME Medical Branch LAMOTRIGINE 2022-0 Yes [id number] 200mg TAKE 2 [facility] 100 mg 1-18 TABLETS BY ity of tablet 00:00: MOUTH IN [place] THE Medical MORNING Branch PRAZOSIN 1 2022-0 Yes [id number] 1mg TAKE 1 U nivers mg capsule 1-18 CAPSULE BY ity of 00:00: MOUTH AT [place] BEDTIME Medical Branch LAMOTRIGINE 2022-0 Yes [id number] 200mg TAKE 2 [facility] 100 mg 1-18 TABLETS BY ity of tablet 00:00: MOUTH IN [place] 00 THE Medical MORNING Branch PRAZOSIN 1 2022-0 Yes [id number] 1mg TAKE 1 U nivers mg capsule 1-18 CAPSULE BY ity of 00:00: MOUTH AT [place] BEDTIME Medical Branch LAMOTRIGINE 2022-0 Yes [id number] 200mg TAKE 2 [facility] 100 mg 1-18 TABLETS BY ity of tablet 00:00: MOUTH IN [place] THE Medical MORNING Branch PRAZOSIN 1 2022-0 Yes [id number] 1mg TAKE 1 U nivers mg capsule 1-18 CAPSULE BY ity of 00:00: MOUTH AT [place] BEDTIME Medical Branch LAMOTRIGINE 2022-0 Yes [id number] 200mg TAKE 2 [facility] 100 mg 1-18 TABLETS BY ity of tablet 00:00: MOUTH IN [place] THE Medical MORNING Branch PRAZOSIN 1 2022- Yes [id number] 1mg TAKE 1 U nivers mg capsule 1-18 CAPSULE BY ity of 00:00: MOUTH AT [place] BEDTIME Medical Branch LAMOTRIGINE 2022-0 Yes [id number] 200mg TAKE 2 [facility] 100 mg 1-18 TABLETS BY ity of tablet 00:00: MOUTH IN [place] [address] THE Medical MORNING Branch PRAZOSIN 1 2022- Yes [id number] 1mg TAKE 1 U nivers mg capsule 1-18 CAPSULE BY ity of 00:00: MOUTH AT [place] BEDTIME Medical Branch LAMOTRIGINE 2022- Yes [id number] 200mg TAKE 2 [facility] 100 mg 1-18 TABLETS BY ity of tablet 00:00: MOUTH IN [place] THE Medical MORNING Branch PRAZOSIN 1 2022-0 Yes [id number] 1mg TAKE 1 U nivers mg capsule 1-18 CAPSULE BY ity of 00:00: MOUTH AT [place] BEDTIME Medical Branch LAMOTRIGINE 2022-0 Yes [id number] 200mg TAKE 2 [facility] 100 mg 1-18 TABLETS BY ity of tablet 00:00: MOUTH IN [place] [address] THE Medical MORNING Branch PRAZOSIN 1 2022-0 Yes [id number] 1mg TAKE 1 U nivers mg capsule 1-18 CAPSULE BY ity of 00:00: MOUTH AT [place] [facility] Medical Branch LAMOTRIGINE 2022-0 Yes [id number] 200mg TAKE 2 [facility] 100 mg 1-18 TABLETS BY ity of tablet 00:00: MOUTH IN [place] [address] THE Medical MORNING Branch PRAZOSIN 1 2022-0 Yes [id number] 1mg TAKE 1 U nivers mg capsule 1-18 CAPSULE BY ity of 00:00: MOUTH AT [place] [address] BEDTIME Medical Branch LAMOTRIGINE Yes [id number] 200mg TAKE 2 [facility] 100 mg 1-18 TABLETS BY ity of tablet 00:00: MOUTH IN [place] THE Medical MORNING Branch PRAZOSIN 1 Yes [id number] 1mg TAKE 1 U nivers mg capsule 1-18 CAPSULE BY ity of 00:00: MOUTH AT [place] [address] BEDTIME Medical Branch insulin Yes [id number] inject 20 [facility] glargine 1-10 Units ity of (LANTUS 00:00: under the [place] U-100 00 skin twice Medical INSULIN) a day. Branch 100 unit/mL injection insulin Yes [id number] inject 20 [facility] glargine 1-10 Units ity of (LANTUS 00:00: under the [place] U-100 00 skin twice Medical INSULIN) a day. Branch 100 unit/mL injection insulin 2022- No [id number] inject 20 [facility] glargine 1-10 01-30 Units ity of ([place] 00:00: 00:[place] U-100 00 :00 skin twice Medical INSULIN) a day. Branch 100 unit/mL injection insulin 2022- No [id number] inject 20 [facility] glargine 1-10 01-30 Units ity of ([facility] 00:00: [place] U-100 00 :00 skin twice Medical INSULIN) a day. Branch 100 unit/mL injection famotidine 2021-06 Yes [id number] 40mg Take 1 [facility] 40 mg 2-13 tablet by ity of tablet 00:00: mouth in [place] the morning. Branch famotidine 2021-06 Yes [id number] 40mg Take 1 [facility] 40 mg 2-13 tablet by it[facility] of tablet 00:00: mouth in [place] the Medical morning. Branch famotidine 2021-06 Yes [id number] 40mg Take 1 [facility] 40 mg 2-13 tablet by [facility] of tablet 00:00: mouth in [place] the Medical morning. Branch famotidine 2021-06 Yes [id number] 40mg Take 1 [facility] 40 mg 2-13 tablet by [facility] of tablet 00:00: mouth in [place] the Medical morning. Branch famotidine 2021-06 Yes [id number] 40mg Take 1 [facility] 40 mg 2-13 tablet by ity of tablet 00:00: mouth in [place] the Medical morning. Branch famotidine 2021-06 Yes [id number] 40mg Take 1 [facility] 40 mg 2-13 tablet by ity of tablet 00:00: mouth in [place] the Medical morning. Branch famotidine 2021-06 Yes [id number] 40mg Take 1 [facility] 40 mg 2-13 tablet by ity of tablet 00:00: mouth in [place] the Medical morning. Branch famotidine 2021-06 Yes [id number] 40mg Take 1 [facility] 40 mg 2-13 tablet by ity of tablet 00:00: mouth in [place] the Medical morning. Branch famotidine 2021-06 Yes [id number] 40mg Take 1 [facility] 40 mg 2-13 tablet by ity of tablet 00:00: mouth in [place] the Medical morning. Branch famotidine 2021-06 Yes [id number] 40mg Take 1 [facility] 40 mg 2-13 tablet by ity of tablet 00:00: mouth in [place] the Medical morning. Branch famotidine 2021-06 Yes [id number] 40mg Take 1 [facility] 40 mg 2-13 tablet by ity of tablet 00:00: mouth in [place] the Medical morning. Branch famotidine 2021-06 Yes [id number] 40mg Take 1 [facility] 40 mg 2-13 tablet by ity of tablet 00:00: mouth in [place] the Medical morning. Branch famotidine 2021-06 Yes [id number] 40mg Take 1 [facility] 40 mg 2-13 tablet by ity of tablet 00:00: mouth in [place] the Medical morning. Branch famotidine 2021-06 Yes [id number] 40mg Take 1 [facility] 40 mg 2-13 tablet by ity of tablet 00:00: mouth in [place] the Medical morning. Branch famotidine 2021-06 Yes [id number] 40mg Take 1 [facility] 40 mg 2-13 tablet by ity of tablet 00:00: mouth in [place] the Medical morning. Branch famotidine 2021-06 Yes [id number] 40mg Take 1 [facility] 40 mg 2-13 tablet by ity of tablet 00:00: mouth in [place] 00 the Medical morning. Branch famotidine 2021-06 Yes [id number] 40mg Take 1 [facility] 40 mg 2-13 tablet by ity of tablet 00:00: mouth in [place] the Medical morning. Branch famotidine 2021-06 Yes [id number] 40mg Take 1 [facility] 40 mg 2-13 tablet by ity of tablet 00:00: mouth in [place] the Medical morning. Branch famotidine 2021-06 Yes [id number] 40mg Take 1 [facility] 40 mg 2-13 tablet by ity of tablet 00:00: mouth in [place] the Medical morning. Branch famotidine 2021-06 Yes [id number] 40mg Take 1 [facility] 40 mg 2-13 tablet by ity of tablet 00:00: mouth in [place] the Medical morning. Branch famotidine 2021-06 Yes [id number] 40mg Take 1 [facility] 40 mg 2-13 tablet by ity of tablet 00:00: mouth in [place] the Medical morning. Branch famotidine 2021-06 Yes [id number] 40mg Take 1 [facility] 40 mg 2-13 tablet by ity of tablet 00:00: mouth in [place] the Medical morning. Branch famotidine 2021-06 Yes [id number] 40mg Take 1 [facility] 40 mg 2-13 tablet by ity of tablet 00:00: mouth in [place] the Medical morning. Branch famotidine 2021-06 Yes [id number] 40mg Take 1 [facility] 40 mg 2-13 tablet by ity of tablet 00:00: mouth in [place] the Medical morning. Branch famotidine 2021-06 Yes [id number] 40mg Take 1 [facility] 40 mg 2-13 tablet by ity of tablet 00:00: mouth in [place] the Medical morning. Branch famotidine 2021-06 Yes [id number] 40mg Take 1 [facility] 40 mg 2-13 tablet by ity of tablet 00:00: mouth in [place] the Medical morning. Branch famotidine 2021-06 Yes [id number] 40mg Take 1 [facility] 40 mg 2-13 tablet by ity of tablet 00:00: mouth in [place] the Medical morning. Branch famotidine 2021-06 Yes [id number] 40mg Take 1 [facility] 40 mg 2-13 tablet by ity of tablet 00:00: mouth in [place] the Medical morning. Branch famotidine 2021-06 Yes [id number] 40mg Take 1 [facility] 40 mg 2-13 tablet by ity of tablet 00:00: mouth in [place] the Medical morning. Branch famotidine 2021-06 Yes [id number] 40mg Take 1 [facility] 40 mg 2-13 tablet by ity of tablet 00:00: mouth in [place] the Medical morning. Branch famotidine 2021-06 Yes [id number] 40mg Take 1 [facility] 40 mg 2-13 tablet by ity of tablet 00:00: mouth in [place] the Medical morning. Branch famotidine 2021-06 Yes [id number] 40mg Take 1 [facility] 40 mg 2-13 tablet by ity of tablet 00:00: mouth in [place] the Medical morning. Branch famotidine 2021-06 Yes [id number] 40mg Take 1 [facility] 40 mg 2-13 tablet by ity of tablet 00:00: mouth in [place] the Medical morning. Branch famotidine 2021-06 Yes [id number] 40mg Take 1 [facility] 40 mg 2-13 tablet by ity of tablet 00:00: mouth in [place] the Medical morning. Branch famotidine 2021-06 Yes [id number] 40mg Take 1 [facility] 40 mg 2-13 tablet by ity of tablet 00:00: mouth in [place] the Medical morning. Branch famotidine 2021-06 Yes [id number] 40mg Take 1 [facility] 40 mg 2-13 tablet by ity of tablet 00:00: mouth in [place] the Medical morning. Branch famotidine 2021-06 Yes [id number] 40mg Take 1 [facility] 40 mg 2-13 tablet by ity of tablet 00:00: mouth in [place] the Medical morning. Branch famotidine 2021-06 Yes [id number] 40mg Take 1 [facility] 40 mg 2-13 tablet by ity of tablet 00:00: mouth in [place] the Medical morning. Branch famotidine 2021-06 Yes [id number] 40mg Take 1 [facility] 40 mg 2-13 tablet by ity of tablet 00:00: mouth in [place] the Medical morning. Branch famotidine 2021-06 Yes [id number] 40mg Take 1 [facility] 40 mg 2-13 tablet by ity of tablet 00:00: mouth in [place] the Medical morning. Branch famotidine 2021-06 Yes [id number] 40mg Take 1 [facility] 40 mg 2-13 tablet by ity of tablet 00:00: mouth in [place] 00 the Medical morning. Branch famotidine 2021-06 Yes [id number] 40mg Take 1 [facility] 40 mg 2-13 tablet by ity of tablet 00:00: mouth in [place] 00 the Medical morning. Branch famotidine 2021-06- No [id number] 40mg Take 1 [facility] 40 mg 2-13 03-20 tablet by ity of tablet 00:00: 00:00 mouth in [place] 00 :00 the Medical morning. Branch insulin 2021-06 Yes [id number] inject 20 [facility] glargine 1-28 Units ity of ([facility] 00:00: under the [place] U-100 00 skin twice Medical INSULIN) a day. Branch 100 unit/mL injection insulin 2021-06 Yes [id number] inject 20 [facility] glargine 1-28 Units ity of ([facility] 00:00: under the [place] U-100 00 skin twice Medical INSULIN) a day. Branch 100 unit/mL injection insulin 2021-06 Yes [id number] inject 20 [facility] glargine 1-28 Units ity of ([facility] 00:00: under the [place] U-100 00 skin twice Medical INSULIN) a day. Branch 100 unit/mL injection insulin 2021-06 Yes [id number] inject 20 [facility] glargine 1-28 Units ity of ([facility] 00:00: under the [place] U-100 00 skin twice Medical INSULIN) a day. Branch 100 unit/mL injection insulin 2021-06 Yes [id number] inject 20 [facility] glargine 1-28 Units ity of ([facility] 00:00: under the [place] U-100 00 skin twice Medical INSULIN) a day. Branch 100 unit/mL injection insulin 2021-06 Yes [id number] inject 20 [facility] glargine 1-28 Units ity of ([facility] 00:00: under the [place] U-100 00 skin twice Medical INSULIN) a day. Branch 100 unit/mL injection insulin 2021-06 Yes [id number] inject 20 [facility] glargine 1-28 Units ity of ([facility] 00:00: under the [place] U-100 00 skin twice Medical INSULIN) a day. Branch 100 unit/mL injection insulin 2021-06- No [id number] inject 20 [facility] glargine 1-28 01-09 Units ity of ([facility] 00:00: 00:[place] U-100 00 :00 skin twice Medical INSULIN) a day. Branch 100 unit/mL injection Insulin 2021-06 Yes [id number] Use to [facility] vers Syringe-Nee 1-24 inject ity of dle U-100 1 00:00: insulin 4X [place] mL 31 gauge 00 daily. Medica l x 516 Syrg [id number] [facility] Insulin 2021-06 Yes [id number] Use to Uni vers Syringe-Nee 1-24 inject ity of dle U-100 1 00:00: insulin 4X [place] mL 31 gauge 00 daily. Medica l x 516 Syrg [id number] [facility] Insulin 2021-06 Yes [id number] Use to Uni vers Syringe-Nee 1-24 inject ity of dle U-100 1 00:00: insulin 4X [place] mL 31 gauge 00 daily. Medica l x 5 Syrg [id number] [facility] Insulin 2021-06 Yes [id number] Use to Uni vers Syringe-Nee 1-24 inject ity of dle U-100 1 00:00: insulin 4X [place] mL 31 gauge 00 daily. Medica l x 516 Syrg [id number] [facility] Insulin 2021-06 Yes [id number] Use to Uni vers Syringe-Nee 1-24 inject ity of dle U-100 1 00:00: insulin 4X [place] mL 31 gauge 00 daily. Medica l x 516 Syrg [id number] [facility] Insulin 2021-06 Yes [id number] Use to [facility] vers Syringe-Nee 1-24 inject ity of dle U-100 1 00:00: insulin 4X [place] mL 31 gauge 00 daily. Medica l x 516 Syrg [id number] [facility] Insulin 2021-06 Yes [id number] Use to Uni vers Syringe-Nee 1-24 inject ity of dle U-100 1 00:00: insulin 4X [place] mL 31 gauge 00 daily. Medica l x 516 Syrg [id number] [facility] Insulin 2021-06 Yes [id number] Use to Uni vers Syringe-Nee 1-24 inject ity of dle U-100 1 00:00: insulin 4X [place] mL 31 gauge 00 daily. Medica l x 5/16 Syrg [id number] [facility] Insulin 2021-06 Yes [id number] Use to Uni vers Syringe-Nee 1-24 inject ity of dle U-100 1 00:00: insulin 4X [place] mL 31 gauge 00 daily. Medica l x 5 Syrg [id number] [facility] Insulin 2021-06 Yes [id number] Use to Uni vers Syringe-Nee 1-24 inject ity of dle U-100 1 00:00: insulin 4X [place] mL 31 gauge 00 daily. Medica l x 5 Syrg [id number] [facility] Insulin 2021-06 Yes [id number] Use to Uni vers Syringe-Nee 1-24 inject ity of dle U-100 1 00:00: insulin 4X [place] mL 31 gauge 00 daily. Medica l x 10/21 Syrg [id number] [facility] Insulin 2021-06 Yes [id number] Use to Uni vers Syringe-Nee 1-24 inject ity of dle U-100 1 00:00: insulin 4X [place] mL 31 gauge 00 daily. Medica l x 5 Syrg [id number] [facility] Insulin 2021-06 Yes [id number] Use to Uni vers Syringe-Nee 1-24 inject ity of dle U-100 1 00:00: insulin 4X [place] mL 31 gauge 00 daily. Medica l x 5 Syrg [id number] [facility] Insulin 2021-06 Yes [id number] Use to Uni vers Syringe-Nee 1-24 inject ity of dle U-100 1 00:00: insulin 4X [place] mL 31 gauge 00 daily. Medica l x 516 Syrg [id number] [facility] Insulin 2021-06 Yes [id number] Use to Uni vers Syringe-Nee 1-24 inject ity of dle U-100 1 00:00: insulin 4X [place] mL 31 gauge 00 daily. Medica l x 516 Syrg [id number] [facility] Insulin 2021-06 Yes [id number] Use to Uni vers Syringe-Nee 1-24 inject ity of dle U-100 1 00:00: insulin 4X [place] mL 31 gauge 00 daily. Medica l x 5/16 Syrg DX:[id number] [facility] Insulin 2021-06 Yes [id number] Use to Uni vers Syringe-Nee 1-24 inject ity of dle U-100 1 00:00: insulin 4X [place] mL 31 gauge 00 daily. Medica l x 5/16 Syrg [id number] [facility] Insulin 2021-06 Yes [id number] Use to Uni vers Syringe-Nee 1-24 inject ity of dle U-100 1 00:00: insulin 4X [place] mL 31 gauge 00 daily. Medica l x 516 Syrg [id number] [facility] Insulin 2021-06 Yes [id number] Use to Uni vers Syringe-Nee 1-24 inject ity of dle U-100 1 00:00: insulin 4X [place] mL 31 gauge 00 daily. Medica l x 516 Syrg [id number] [facility] Insulin 2021-06 Yes [id number] Use to Uni vers Syringe-Nee 1-24 inject ity of dle U-100 1 00:00: insulin 4X [place] mL 31 gauge 00 daily. Medica l x 516 Syrg DX:[id number] [facility] Insulin 2021-06 Yes [id number] Use to Uni vers Syringe-Nee 1-24 inject ity of dle U-100 1 00:00: insulin 4X [place] mL 31 gauge 00 daily. Medica l x 5/16 Syrg DX:[id number] [facility] Insulin 2021-06 Yes [id number] Use to Uni vers Syringe-Nee 1-24 inject ity of dle U-100 1 00:00: insulin 4X [place] mL 31 gauge 00 daily. Medica l x 5/16 Syrg DX:[id number] [facility] Insulin 2021-06 Yes [id number] Use to Uni vers Syringe-Nee 1-24 inject ity of dle U-100 1 00:00: insulin 4X [place] mL 31 gauge 00 daily. Medica l x 5/16 Syrg DX:[id number] [facility] Insulin 2021-06 Yes [id number] Use to Uni vers Syringe-Nee 1-24 inject ity of dle U-100 1 00:00: insulin 4X [place] mL 31 gauge 00 daily. Medica l x 5/16 Syrg DX:[id number] [facility] Insulin 2021-06 Yes [id number] Use to Uni vers Syringe-Nee 1-24 inject ity of dle U-100 1 00:00: insulin 4X [place] mL 31 gauge 00 daily. Medica l x 5/16 Syrg DX:[id number] [facility] Insulin 2021-06 Yes [id number] Use to Uni vers Syringe-Nee 1-24 inject ity of dle U-100 1 00:00: insulin 4X [place] mL 31 gauge 00 daily. Medica l x 516 Syrg DX:[id number] [facility] Insulin 2021-06 Yes [id number] Use to Uni vers Syringe-Nee 1-24 inject ity of dle U-100 1 00:00: insulin 4X [place] mL 31 gauge 00 daily. Medica l x 5 Syrg DX:[id number] [facility] Insulin 2021-06 Yes [id number] Use to Uni vers Syringe-Nee 1-24 inject ity of dle U-100 1 00:00: insulin 4X [place] mL 31 gauge 00 daily. Medica l x 516 Syrg DX:[id number] [facility] Insulin 2021-06 Yes [id number] Use to Uni vers Syringe-Nee 1-24 inject ity of dle U-100 1 00:00: insulin 4X [place] mL 31 gauge 00 daily. Medica l x 516 Syrg DX:[id number] [facility] Insulin 2021-06 Yes [id number] Use to Uni vers Syringe-Nee 1-24 inject ity of dle U-100 1 00:00: insulin 4X [place] mL 31 gauge 00 daily. Medica l x 5/16 Syrg DX:[id number] [facility] Insulin 2021-06 Yes [id number] Use to Uni vers Syringe-Nee 1-24 inject ity of dle U-100 1 00:00: insulin 4X [place] mL 31 gauge 00 daily. Medica l x 5/16 Syrg DX:[id number] [facility] Insulin 2021-06- No [id number] Use to Un [facility] Syringe-Nee 07-01 inject ity o f dle U-100 1 00:00: 00:00 insulin 4X [place] mL 31 gauge 00 :00 daily. Medica l x 10/21 Syrg DX:[id number] [facility] FAMOTIDINE 2021-06 Yes [id number] TAKE ONE [facility] 40 mg 1-03 TABLET BY ity of tablet 00:00: MOUTH [place] 00 EVERY DAY Medical IN THE [place] MORNING. FAMOTIDINE 2021-06 Yes [id number] TAKE ONE [facility] 40 mg 1-03 TABLET BY ity of tablet 00:00: MOUTH [place] 00 EVERY DAY Medical IN THE [place] MORNING. FAMOTIDINE 2021-06 Yes [id number] TAKE ONE [facility] 40 mg 1-03 TABLET BY ity of tablet 00:00: MOUTH [place] 00 EVERY DAY Medical IN THE [place] MORNING. FAMOTIDINE 2021-06 Yes [id number] TAKE ONE [facility] 40 mg 1-03 TABLET BY ity of tablet 00:00: MOUTH [place] 00 EVERY DAY Medical IN THE [place] MORNING. FAMOTIDINE 2021-06 Yes [id number] TAKE ONE [facility] 40 mg 1-03 TABLET BY ity of tablet 00:00: MOUTH [place] 00 EVERY DAY Medical IN THE [place] MORNING. FAMOTIDINE 2021-06 Yes [id number] TAKE ONE [facility] 40 mg 1-03 TABLET BY ity of tablet 00:00: MOUTH [place] 00 EVERY DAY Medical IN THE [place] MORNING. FAMOTIDINE 2021-06- No [id number] TAKE ONE [facility] 40 mg 1-03 12-09 TABLET BY ity of tablet 00:00: 00:00 MOUTH [place] 00 :00 EVERY DAY Medical IN THE [place] MORNING. insulin 2021-06 Yes [id number] inject 20 [facility] glargine 0-25 Units ity of ([facility] 00:00: under the [place] U-100 00 skin twice Medical INSULIN) a day. [place] 100 unit/mL injection insulin 2021-06 Yes [id number] inject 20 [facility] glargine 0-25 Units ity of ([facility]US 00:00: under the [place] U-100 00 skin twice Medical INSULIN) a day. [place] 100 unit/mL injection LORazepam 2021-06 Yes [id number] 1mg Take 1 [facility] (ATIVAN) 1 0-25 tablet by ity of mg tablet 00:00: mouth 2 (two) Medical times Branch daily as needed for Anxiety or Agitation. insulin 2021-06 Yes [id number] inject 20 [facility] glargine 0-25 Units ity of ([facility]US 00:00: under the [place] U-100 00 skin twice Medical INSULIN) a day. Branch 100 unit/mL injection LORazepam 2021-06 Yes [id number] 1mg Take 1 [facility] (ATIVAN) 1 0-25 tablet by ity of mg tablet 00:00: mouth 2 (two) Medical times Branch daily as needed for Anxiety or Agitation. insulin 2021-06 Yes [id number] inject 20 [facility] glargine 0-25 Units ity of ([facility]US 00:00: under the [place] U-100 00 skin twice Medical INSULIN) a day. Branch 100 unit/mL injection LORazepam 2021-06 Yes [id number] 1mg Take 1 [facility] (ATIVAN) 1 0-25 tablet by ity of mg tablet 00:00: mouth 2 (two) Medical times Branch daily as needed for Anxiety or Agitation. insulin 2021-06 Yes [id number] inject 20 [facility] glargine 0-25 Units ity of ([facility]US 00:00: under the [place] U-100 00 skin twice Medical INSULIN) a day. Branch 100 unit/mL injection LORazepam 2021-06 Yes [id number] 1mg Take 1 [facility] (ATIVAN) 1 0-25 tablet by ity of mg tablet 00:00: mouth 2 (two) Medical times Branch daily as needed for Anxiety or Agitation. insulin 2021-06 Yes [id number] inject 20 [facility] glargine 0-25 Units ity of ([facility]US 00:00: under the [place] U-100 00 skin twice Medical INSULIN) a day. Branch 100 unit/mL injection LORazepam 2021-06 Yes [id number] 1mg Take 1 [facility] (ATIVAN) 1 0-25 tablet by ity of mg tablet 00:00: mouth 2 (two) Medical times Branch daily as needed for Anxiety or Agitation. insulin 2021-06 Yes [id number] inject 20 [facility] glargine 0-25 Units ity of ([facility]US 00:00: under the [place] U-100 00 skin twice Medical INSULIN) a day. Branch 100 unit/mL injection LORazepam 2021-06 Yes [id number] 1mg Take 1 [facility] (ATIVAN) 1 0-25 tablet by ity of mg tablet 00:00: mouth 2 (two) Medical times Branch daily as needed for Anxiety or Agitation. insulin 2021-06 Yes [id number] inject 20 [facility] glargine 0-25 Units ity of ([facility] 00:00: under the U-100 00 skin twice Medical INSULIN) a day. Branch 100 unit/mL injection LORazepam 2021-06 Yes [id number] 1mg Take 1 [facility] (ATIVAN) 1 0-25 tablet by ity of mg tablet 00:00: mouth 2 (two) Medical times Branch daily as needed for Anxiety or Agitation. insulin 2021-06 Yes [id number] inject 20 [facility] glargine 0-25 Units ity of ([facility]US 00:00: under the U-100 00 skin twice Medical INSULIN) a day. Branch 100 unit/mL injection LORazepam 2021-06 Yes [id number] 1mg Take 1 [facility] (ATIVAN) 1 0-25 tablet by ity of mg tablet 00:00: mouth 2 (two) Medical times Branch daily as needed for Anxiety or Agitation. LORazepam 2021-06 Yes [id number] 1mg Take 1 [facility] (ATIVAN) 1 0-25 tablet by ity of mg tablet 00:00: mouth 2 (two) Medical times Branch daily as needed for Anxiety or Agitation. LORazepam 2021-06 Yes [id number] 1mg Take 1 [facility] (ATIVAN) 1 0-25 tablet by ity of mg tablet 00:00: mouth 2 (two) Medical times Branch daily as needed for Anxiety or Agitation. LORazepam 2021-06 Yes [id number] 1mg Take 1 [facility] (ATIVAN) 1 0-25 tablet by ity of mg tablet 00:00: mouth 2 (two) Medical times Branch daily as needed for Anxiety or Agitation. LORazepam 2021-06 Yes [id number] 1mg Take 1 [facility] (ATIVAN) 1 0-25 tablet by ity of mg tablet 00:00: mouth 2 (two) Medical times Branch daily as needed for Anxiety or Agitation. LORazepam 2021-06 Yes [id number] 1mg Take 1 [facility] (ATIVAN) 1 0-25 tablet by ity of mg tablet 00:00: mouth 2 [place] (two) Medical times Branch daily as needed for Anxiety or Agitation. LORazepam 2021-06 Yes [id number] 1mg Take 1 [facility] (ATIVAN) 1 0-25 tablet by ity of mg tablet 00:00: mouth 2 [place] (two) Medical times Branch daily as needed for Anxiety or Agitation. LORazepam 2021-06 Yes [id number] 1mg Take 1 [facility] (ATIVAN) 1 0-25 tablet by ity of mg tablet 00:00: mouth 2 (two) Medical times Branch daily as needed for Anxiety or Agitation. LORazepam 2021-06 Yes [id number] 1mg Take 1 [facility] [place] (ATIVAN) 1 0-25 tablet by ity of mg tablet 00:00: mouth (two) Medical times Branch daily as needed for Anxiety or Agitation. LORazepam 2021-06 Yes [id number] 1mg Take 1 [facility] (ATIVAN) 1 0-25 tablet by ity of mg tablet 00:00: mouth (two) Medical times Branch daily as needed for Anxiety or Agitation. LORazepam 2021-06 Yes [id number] 1mg Take 1 [facility] (ATIVAN) 1 0-25 tablet by ity of mg tablet 00:00: mouth 2 (two) Medical times Branch daily as needed for Anxiety or Agitation. LORazepam 2021-06 Yes [id number] 1mg Take 1 [facility] (ATIVAN) 1 0-25 tablet by ity of mg tablet 00:00: mouth 2 (two) Medical times Branch daily as needed for Anxiety or Agitation. LORazepam 2021-06 Yes [id number] 1mg Take 1 [facility] (ATIVAN) 1 0-25 tablet by ity of mg tablet 00:00: mouth 2 (two) Medical times Branch daily as needed for Anxiety or Agitation. LORazepam 2021-06 Yes [id number] 1mg Take 1 [facility] (ATIVAN) 1 0-25 tablet by ity of mg tablet 00:00: mouth 2 (two) Medical times Branch daily as needed for Anxiety or Agitation. LORazepam 2021-06 Yes [id number] 1mg Take 1 [facility] (ATIVAN) 1 0-25 tablet by ity of mg tablet 00:00: mouth 2 [place] (two) Medical times Branch daily as needed for Anxiety or Agitation. LORazepam 2021-06 Yes [id number] 1mg Take 1 [facility] (ATIVAN) 1 0-25 tablet by ity of mg tablet 00:00: mouth 2 [place] (two) Medical times Branch daily as needed for Anxiety or Agitation. LORazepam 2021-06 Yes [id number] 1mg Take 1 [facility] (ATIVAN) 1 0-25 tablet by ity of mg tablet 00:00: mouth 2 [place] (two) Medical times Branch daily as needed for Anxiety or Agitation. LORazepam 2021-06 Yes [id number] 1mg Take 1 [facility] (ATIVAN) 1 0-25 tablet by ity of mg tablet 00:00: mouth 2 (two) Medical times Branch daily as needed for Anxiety or Agitation. LORazepam 2021-06 Yes [id number] 1mg Take 1 [facility] (ATIVAN) 1 0-25 tablet by ity of mg tablet 00:00: mouth 2 (two) Medical times Branch daily as needed for Anxiety or Agitation. LORazepam 2021-06 Yes [id number] 1mg Take 1 [facility] (ATIVAN) 1 0-25 tablet by ity of mg tablet 00:00: mouth 2 (two) Medical times Branch daily as needed for Anxiety or Agitation. LORazepam 2021-06 Yes [id number] 1mg Take 1 [facility] (ATIVAN) 1 0-25 tablet by ity of mg tablet 00:00: mouth 2 [place] (two) Medical times Branch daily as needed for Anxiety or Agitation. LORazepam 2021-06 Yes [id number] 1mg Take 1 [facility] (ATIVAN) 1 0-25 tablet by ity of mg tablet 00:00: mouth 2 [place] (two) Medical times Branch daily as needed for Anxiety or Agitation. LORazepam 2021-06 Yes [id number] 1mg Take 1 [facility] (ATIVAN) 1 0-25 tablet by ity of mg tablet 00:00: mouth 2 [place] (two) Medical times Branch daily as needed for Anxiety or Agitation. LORazepam 2021-06 Yes [id number] 1mg Take 1 [facility] (ATIVAN) 1 0-25 tablet by ity of mg tablet 00:00: mouth 2 [place] (two) Medical times Branch daily as needed for Anxiety or Agitation. LORazepam 2021-06 Yes [id number] 1mg Take 1 [facility] (ATIVAN) 1 0-25 tablet by ity of mg tablet 00:00: mouth 2 [place] (two) Medical times Branch daily as needed for Anxiety or Agitation. LORazepam 2021-06 Yes [id number] 1mg Take 1 [facility] (ATIVAN) 1 0-25 tablet by ity of mg tablet 00:00: mouth 2 (two) Medical times Branch daily as needed for Anxiety or Agitation. LORazepam 2021-06 Yes [id number] 1mg Take 1 [facility] (ATIVAN) 1 0-25 tablet by ity of mg tablet 00:00: mouth 2 (two) Medical times Branch daily as needed for Anxiety or Agitation. LORazepam 2021-06 Yes [id number] 1mg Take 1 [facility] (ATIVAN) 1 0-25 tablet by ity of mg tablet 00:00: mouth 2 (two) Medical times Branch daily as needed for Anxiety or Agitation. LORazepam 2021-06 Yes [id number] 1mg Take 1 [facility] (ATIVAN) 1 0-25 tablet by ity of mg tablet 00:00: mouth 2 (two) Medical times Branch daily as needed for Anxiety or Agitation. LORazepam 2021-06 Yes [id number] 1mg Take 1 [facility] (ATIVAN) 1 0-25 tablet by ity of mg tablet 00:00: mouth 2 (two) Medical times Branch daily as needed for Anxiety or Agitation. LORazepam 2021-06 Yes [id number] 1mg Take 1 [facility] (ATIVAN) 1 0-25 tablet by ity of mg tablet 00:00: mouth 2 [place] (two) Medical times Branch daily as needed for Anxiety or Agitation. LORazepam 2021-06 Yes [id number] 1mg Take 1 [facility] (ATIVAN) 1 0-25 tablet by ity of mg tablet 00:00: mouth 2 [place] (two) Medical times Branch daily as needed for Anxiety or Agitation. LORazepam 2021-06 Yes [id number] 1mg Take 1 [facility] (ATIVAN) 1 0-25 tablet by ity of mg tablet 00:00: mouth 2 [place] (two) Medical times Branch daily as needed for Anxiety or Agitation. LORazepam 2021-06 Yes [id number] 1mg Take 1 [facility] (ATIVAN) 1 0-25 tablet by ity of mg tablet 00:00: mouth 2 [place] (two) Medical times Branch daily as needed for Anxiety or Agitation. LORazepam 2021-06 Yes [id number] 1mg Take 1 [facility] (ATIVAN) 1 0-25 tablet by ity of mg tablet 00:00: mouth 2 [place] (two) Medical times Branch daily as needed for Anxiety or Agitation. LORazepam 2021-06 Yes [id number] 1mg Take 1 [facility] (ATIVAN) 1 0-25 tablet by [facility] mg tablet 00:00: mouth 2 (two) Medical times Branch daily as needed for Anxiety or Agitation. LORazepam 2021-06 Yes [id number] 1mg Take 1 [facility] (ATIVAN) 1 0-25 tablet by [facility] mg tablet 00:00: mouth 2 (two) Medical times Branch daily as needed for Anxiety or Agitation. LORazepam 2021-06 Yes [id number] 1mg Take 1 [facility] (ATIVAN) 1 0-25 tablet by [facility] mg tablet 00:00: mouth 2 (two) Medical times Branch daily as needed for Anxiety or Agitation. LORazepam 2021-06 Yes [id number] 1mg Take 1 [facility] (ATIVAN) 1 0-25 tablet by [facility] mg tablet 00:00: mouth 2 (two) Medical times Branch daily as needed for Anxiety or Agitation. LORazepam 2021-06 Yes [id number] 1mg Take 1 [facility] (ATIVAN) 1 0-25 tablet by [facility] mg tablet 00:00: mouth 2 [place] 00 (two) Medical times Branch daily as needed for Anxiety or Agitation. LORazepam 2021-06 Yes [id number] 1mg Take 1 [facility] (ATIVAN) 1 0-25 tablet by [facility] mg tablet 00:00: mouth 2 [place] (two) Medical times Branch daily as needed for Anxiety or Agitation. LORazepam 2021-06 Yes [id number] 1mg Take 1 [facility] (ATIVAN) 1 0-25 tablet by [facility] mg tablet 00:00: mouth 2 (two) Medical times Branch daily as needed for Anxiety or Agitation. LORazepam 2021-06 Yes [id number] 1mg Take 1 [facility] (ATIVAN) 1 0-25 tablet by [facility] mg tablet 00:00: mouth 2 (two) Medical times Branch daily as needed for Anxiety or Agitation. LORazepam 2021-06 Yes [id number] 1mg Take 1 [facility] (ATIVAN) 1 0-25 tablet by [facility] mg tablet 00:00: mouth 2 (two) Medical times Branch daily as needed for Anxiety or Agitation. LORazepam 2021-06 Yes [id number] 1mg Take 1 [facility] (ATIVAN) 1 0-25 tablet by [facility] mg tablet 00:00: mouth (two) Medical times Branch daily as needed for Anxiety or Agitation. LORazepam 2021-06 Yes [id number] 1mg Take 1 [facility] (ATIVAN) 1 0-25 tablet by [facility] mg tablet 00:00: mouth (two) Medical times Branch daily as needed for Anxiety or Agitation. LORazepam 2021-06 Yes [id number] 1mg Take 1 [facility] (ATIVAN) 1 0-25 tablet by [facility] mg tablet 00:00: mouth (two) Medical times Branch daily as needed for Anxiety or Agitation. LORazepam 2021-06 Yes [id number] 1mg Take 1 [facility] (ATIVAN) 1 0-25 tablet by [facility] mg tablet 00:00: mouth (two) Medical times Branch daily as needed for Anxiety or Agitation. LORazepam 2021-06 Yes [id number] 1mg Take 1 [facility] (ATIVAN) 1 0-25 tablet by [facility] mg tablet 00:00: mouth (two) Medical times Branch daily as needed for Anxiety or Agitation. insulin 2021-06- No [id number] inject 20 [facility] glargine 0-25 11-23 Units [facility] ([facility] 00:00: [place] U-100 00 :00 skin twice Medical INSULIN) a day. Branch 100 unit/mL injection insulin 2021-06- No [id number] inject 20 [facility] glargine 0-25 11-23 Units [facility] of (LANTUS 00:00: 00:[place] U-100 00 :00 skin twice Medical INSULIN) a day. Branch 100 unit/mL injection losartan 2021-06 Yes [id number] 25mg Take 1 [facility] mg tablet 0-24 tablet by [facility] o f 00:00: mouth in [place] 00 the Medical morning. Branch atorvastati 2021-06 Yes [id number] 20mg Take 1 [facility] n 20 mg 0-24 tablet by [facility] of tablet 00:00: mouth at [place] [address] bedtime. Medical Branch losartan 2021-06 Yes [id number] 25mg Take 1 [facility] mg tablet 0-24 tablet by [facility] o f 00:00: mouth in [place] the Medical morning. Branch atorvastati 2021-06 Yes [id number] 20mg Take 1 [facility] n 20 mg 0-24 tablet by [facility] of tablet 00:00: mouth at [place] 00 bedtime. Medical Branch losartan 2021-06 Yes [id number] 25mg Take 1 [facility] mg tablet 0-24 tablet by [facility] o f 00:00: mouth in [place] the Medical morning. Branch atorvastati 2021-06 Yes [id number] 20mg Take 1 [facility] n 20 mg 0-24 tablet by [facility] of tablet 00:00: mouth at [place] 00 bedtime. Medical Branch losartan 2021-06 Yes [id number] 25mg Take 1 [facility] mg tablet 0-24 tablet by [facility] o f 00:00: mouth in [place] the Medical morning. Branch atorvastati 2021-06 Yes [id number] 20mg Take 1 [facility] n 20 mg 0-24 tablet by [facility] tablet 00:00: mouth at [place] 00 bedtime. Medical Branch losartan 25 2021-06 Yes [id number] 25mg Take 1 [facility] mg tablet 0-24 tablet by [facility] o f 00:00: mouth in [place] 00 the Medical morning. Branch atorvastati 2021-06 Yes [id number] 20mg Take 1 [facility] n 20 mg 0-24 tablet by [facility] of tablet 00:00: mouth at [place] [address] bedtime. Medical Branch losartan 25 2021-06 Yes [id number] 25mg Take 1 [facility] mg tablet 0-24 tablet by [facility] o f 00:00: mouth in [place] the Medical morning. Branch atorvastati 2021-06 Yes [id number] 20mg Take 1 [facility] n 20 mg 0-24 tablet by [facility] of tablet 00:00: mouth at [place] 00 bedtime. Medical Branch losartan 25 2021-06 Yes [id number] 25mg Take 1 [facility] mg tablet 0-24 tablet by [facility] o f 00:00: mouth in [place] the Medical morning. Branch atorvastati 2021-06 Yes [id number] 20mg Take 1 [facility] n 20 mg 0-24 tablet by [facility] tablet 00:00: mouth at [place] 00 bedtime. Medical Branch losartan 25 2021-06 Yes [id number] 25mg Take 1 [facility] mg tablet 0-24 tablet by [facility] o f 00:00: mouth in [place] the Medical morning. Branch atorvastati 2021-06 Yes [id number] 20mg Take 1 [facility] n 20 mg 0-24 tablet by [facility] of tablet 00:00: mouth at [place] 00 bedtime. Medical Branch losartan 25 2021-06 Yes [id number] 25mg Take 1 [facility] mg tablet 0-24 tablet by [facility] o f 00:00: mouth in [place] the Medical morning. Branch atorvastati 2021-06 Yes [id number] 20mg Take 1 [facility] n 20 mg 0-24 tablet by [facility] of tablet 00:00: mouth at [place] 00 bedtime. Medical Branch losartan 25 2021-06 Yes [id number] 25mg Take 1 [facility] mg tablet 0-24 tablet by [facility] o f 00:00: mouth in [place] the Medical morning. Branch atorvastati 2021-06 Yes [id number] 20mg Take 1 [facility] n 20 mg 0-24 tablet by [facility] of tablet 00:00: mouth at [place] 00 bedtime. Medical Branch losartan 25 2021-06 Yes [id number] 25mg Take 1 [facility] mg tablet 0-24 tablet by [facility] o f 00:00: mouth in [place] the Medical morning. Branch atorvastati 2021-06 Yes [id number] 20mg Take 1 [facility] n 20 mg 0-24 tablet by [facility] of tablet 00:00: mouth at [place] [address] bedtime. Medical Branch losartan 25 2021-06 Yes [id number] 25mg Take 1 [facility] mg tablet 0-24 tablet by [facility] o f 00:00: mouth in [place] the Medical morning. Branch atorvastati 2021-06 Yes [id number] 20mg Take 1 [facility] n 20 mg 0-24 tablet by [facility] of tablet 00:00: mouth at [place] 00 bedtime. Medical Branch losartan 25 2021-06 Yes [id number] 25mg Take 1 [facility] mg tablet 0-24 tablet by [facility] o f 00:00: mouth in [place] 00 the Medical morning. Branch atorvastati 2021-06 Yes [id number] 20mg Take 1 [facility] n 20 mg 0-24 tablet by [facility] of tablet 00:00: mouth at [place] 00 bedtime. Medical Branch losartan 25 2021-06 Yes [id number] 25mg Take 1 [facility] mg tablet 0-24 tablet by [facility] o f 00:00: mouth in [place] 00 the Medical morning. Branch atorvastati 2021-06 Yes [id number] 20mg Take 1 [facility] n 20 mg 0-24 tablet by [facility] of tablet 00:00: mouth at [place] 00 bedtime. Medical Branch losartan 25 2021-06 Yes [id number] 25mg Take 1 [facility] mg tablet 0-24 tablet by [facility] o f 00:00: mouth in [place] the Medical morning. Branch atorvastati 2021-06 Yes [id number] 20mg Take 1 [facility] n 20 mg 0-24 tablet by [facility] of tablet 00:00: mouth at [place] 00 bedtime. Medical Branch losartan 25 2021-06 Yes [id number] 25mg Take 1 [facility] mg tablet 0-24 tablet by [facility] o f 00:00: mouth in [place] the Medical morning. Branch atorvastati 2021-06 Yes [id number] 20mg Take 1 [facility] n 20 mg 0-24 tablet by [facility] of tablet 00:00: mouth at [place] 00 bedtime. Medical Branch losartan 25 2021-06 Yes [id number] 25mg Take 1 [facility] mg tablet 0-24 tablet by [facility] o f 00:00: mouth in [place] 00 the Medical morning. Branch atorvastati 2021-06 Yes [id number] 20mg Take 1 [facility] n 20 mg 0-24 tablet by [facility] of tablet 00:00: mouth at [place] 00 bedtime. Medical Branch losartan 25 2021-06 Yes [id number] 25mg Take 1 [facility] mg tablet 0-24 tablet by [facility] o f 00:00: mouth in [place] 00 the Medical morning. Branch atorvastati 2021-06 Yes [id number] 20mg Take 1 [facility] n 20 mg 0-24 tablet by [facility] of tablet 00:00: mouth at [place] 00 bedtime. Medical Branch losartan 25 2021-06 Yes [id number] 25mg Take 1 [facility] mg tablet 0-24 tablet by [facility] o f 00:00: mouth in [place] the Medical morning. Branch atorvastati 2021-06 Yes [id number] 20mg Take 1 [facility] n 20 mg 0-24 tablet by [facility] of tablet 00:00: mouth at [place] 00 bedtime. Medical Branch losartan 25 2021-06 Yes [id number] 25mg Take 1 [facility] mg tablet 0-24 tablet by [facility] o f 00:00: mouth in [place] the Medical morning. Branch atorvastati 2021-06 Yes [id number] 20mg Take 1 [facility] n 20 mg 0-24 tablet by [facility] of tablet 00:00: mouth at [place] 00 bedtime. Medical Branch losartan 25 2021-06 Yes [id number] 25mg Take 1 [facility] mg tablet 0-24 tablet by [facility] o f 00:00: mouth in [place] the Medical morning. Branch atorvastati 2021-06 Yes [id number] 20mg Take 1 [facility] n 20 mg 0-24 tablet by [facility] of tablet 00:00: mouth at [place] 00 bedtime. Medical Branch losartan 25 2021-06 Yes [id number] 25mg Take 1 [facility] mg tablet 0-24 tablet by [facility] o f 00:00: mouth in [place] the Medical morning. Branch atorvastati 2021-06 Yes [id number] 20mg Take 1 [facility] n 20 mg 0-24 tablet by [facility] of tablet 00:00: mouth at [place] 00 bedtime. Medical Branch losartan 25 2021-06 Yes [id number] 25mg Take 1 [facility] mg tablet 0-24 tablet by [facility] o f 00:00: mouth in [place] the Medical morning. Branch atorvastati 2021-06 Yes [id number] 20mg Take 1 [facility] n 20 mg 0-24 tablet by [facility] of tablet 00:00: mouth at [place] 00 bedtime. Medical Branch losartan 25 2021-06 Yes [id number] 25mg Take 1 [facility] mg tablet 0-24 tablet by [facility] o f 00:00: mouth in [place] the Medical morning. Branch atorvastati 2021-06 Yes [id number] 20mg Take 1 [facility] n 20 mg 0-24 tablet by [facility] of tablet 00:00: mouth at [place] 00 bedtime. Medical Branch losartan 25 2021-06 Yes [id number] 25mg Take 1 [facility] mg tablet 0-24 tablet by [facility] o f 00:00: mouth in [place] the Medical morning. Branch atorvastati 2021-06 Yes [id number] 20mg Take 1 [facility] n 20 mg 0-24 tablet by [facility] of tablet 00:00: mouth at [place] 00 bedtime. Medical Branch losartan 25 2021-06 Yes [id number] 25mg Take 1 [facility] mg tablet 0-24 tablet by [facility] o f 00:00: mouth in [place] the Medical morning. Branch atorvastati 2021-06 Yes [id number] 20mg Take 1 [facility] n 20 mg 0-24 tablet by [facility] of tablet 00:00: mouth at [place] 00 bedtime. Medical Branch losartan 25 2021-06 Yes [id number] 25mg Take 1 [facility] mg tablet 0-24 tablet by [facility] o f 00:00: mouth in [place] the Medical morning. Branch atorvastati 2021-06 Yes [id number] 20mg Take 1 [facility] n 20 mg 0-24 tablet by [facility] of tablet 00:00: mouth at [place] 00 bedtime. Medical Branch losartan 25 2021-06 Yes [id number] 25mg Take 1 [facility] mg tablet 0-24 tablet by [facility] o f 00:00: mouth in [place] the Medical morning. Branch atorvastati 2021-06 Yes [id number] 20mg Take 1 [facility] n 20 mg 0-24 tablet by [facility] of tablet 00:00: mouth at [place] 00 bedtime. Medical Branch losartan 25 2021-06 Yes [id number] 25mg Take 1 [facility] mg tablet 0-24 tablet by [facility] o f 00:00: mouth in [place] the Medical morning. Branch atorvastati 2021-06 Yes [id number] 20mg Take 1 [facility] n 20 mg 0-24 tablet by [facility] of tablet 00:00: mouth at [place] 00 bedtime. Medical Branch losartan 25 2021-06 Yes [id number] 25mg Take 1 [facility] mg tablet 0-24 tablet by [facility] o f 00:00: mouth in [place] 00 the Medical morning. Branch atorvastati 2021-06 Yes [id number] 20mg Take 1 [facility] n 20 mg 0-24 tablet by [facility] of tablet 00:00: mouth at [place] 00 bedtime. Medical Branch losartan 25 2021-06 Yes [id number] 25mg Take 1 [facility] mg tablet 0-24 tablet by [facility] o f 00:00: mouth in [place] the Medical morning. Branch atorvastati 2021-06 Yes [id number] 20mg Take 1 [facility] n 20 mg 0-24 tablet by [facility] of tablet 00:00: mouth at [place] 00 bedtime. Medical Branch losartan 25 2021-06 Yes [id number] 25mg Take 1 [facility] mg tablet 0-24 tablet by [facility] o f 00:00: mouth in [place] the Medical morning. Branch atorvastati 2021-06 Yes [id number] 20mg Take 1 [facility] n 20 mg 0-24 tablet by [facility] of tablet 00:00: mouth at [place] 00 bedtime. Medical Branch losartan 25 2021-06 Yes [id number] 25mg Take 1 [facility] mg tablet 0-24 tablet by [facility] o f 00:00: mouth in [place] the Medical morning. Branch atorvastati 2021-06 Yes [id number] 20mg Take 1 [facility] n 20 mg 0-24 tablet by [facility] of tablet 00:00: mouth at [place] 00 bedtime. Medical Branch losartan 25 2021-06 Yes [id number] 25mg Take 1 [facility] mg tablet 0-24 tablet by [facility] o f 00:00: mouth in [place] the Medical morning. Branch atorvastati 2021-06 Yes [id number] 20mg Take 1 [facility] n 20 mg 0-24 tablet by [facility] of tablet 00:00: mouth at [place] 00 bedtime. Medical Branch losartan 25 2021-06 Yes [id number] 25mg Take 1 [facility] mg tablet 0-24 tablet by [facility] o f 00:00: mouth in [place] the Medical morning. Branch atorvastati 2021-06 Yes [id number] 20mg Take 1 [facility] n 20 mg 0-24 tablet by [facility] of tablet 00:00: mouth at [place] 00 bedtime. Medical Branch losartan 25 2021-06 Yes [id number] 25mg Take 1 [facility] mg tablet 0-24 tablet by [facility] o f 00:00: mouth in [place] the Medical morning. Branch atorvastati 2021-06 Yes [id number] 20mg Take 1 [facility] n 20 mg 0-24 tablet by [facility] of tablet 00:00: mouth at [place] 00 bedtime. Medical Branch losartan 25 2021-06 Yes [id number] 25mg Take 1 [facility] mg tablet 0-24 tablet by [facility] o f 00:00: mouth in [place] the Medical morning. Branch atorvastati 2021-06 Yes [id number] 20mg Take 1 [facility] n 20 mg 0-24 tablet by [facility] of tablet 00:00: mouth at [place] 00 bedtime. Medical Branch losartan 25 2021-06 Yes [id number] 25mg Take 1 [facility] mg tablet 0-24 tablet by [facility] o f 00:00: mouth in [place] the Medical morning. Branch atorvastati 2021-06 Yes [id number] 20mg Take 1 [facility] n 20 mg 0-24 tablet by [facility] of tablet 00:00: mouth at [place] 00 bedtime. Medical Branch losartan 25 2021-06 Yes [id number] 25mg Take 1 [facility] mg tablet 0-24 tablet by [facility] o f 00:00: mouth in [place] the Medical morning. Branch atorvastati 2021-06 Yes [id number] 20mg Take 1 [facility] n 20 mg 0-24 tablet by [facility] of tablet 00:00: mouth at [place] 00 bedtime. Medical Branch losartan 25 2021-06 Yes [id number] 25mg Take 1 [facility] mg tablet 0-24 tablet by [facility] o f 00:00: mouth in [place] the Medical morning. Branch atorvastati 2021-06 Yes [id number] 20mg Take 1 [facility] n 20 mg 0-24 tablet by [facility] of tablet 00:00: mouth at [place] 00 bedtime. Medical Branch losartan 25 2021-06 Yes [id number] 25mg Take 1 [facility] mg tablet 0-24 tablet by [facility] o f 00:00: mouth in [place] the Medical morning. Branch atorvastati 2021-06 Yes [id number] 20mg Take 1 [facility] n 20 mg 0-24 tablet by [facility] of tablet 00:00: mouth at [place] 00 bedtime. Medical Branch losartan 25 2021-06 Yes [id number] 25mg Take 1 [facility] mg tablet 0-24 tablet by [facility] o f 00:00: mouth in [place] the Medical morning. Branch atorvastati 2021-06 Yes [id number] 20mg Take 1 [facility] n 20 mg 0-24 tablet by [facility] of tablet 00:00: mouth at [place] 00 bedtime. Medical Branch losartan 25 2021-06 Yes [id number] 25mg Take 1 [facility] mg tablet 0-24 tablet by [facility] o f 00:00: mouth in [place] 00 the Medical morning. Branch atorvastati 2021-06 Yes [id number] 20mg Take 1 [facility] n 20 mg 0-24 tablet by [facility] of tablet 00:00: mouth at [place] 00 bedtime. Medical Branch losartan 25 2021-06 Yes [id number] 25mg Take 1 [facility] mg tablet 0-24 tablet by [facility] o f 00:00: mouth in [place] the Medical morning. Branch atorvastati 2021-06 Yes [id number] 20mg Take 1 [facility] n 20 mg 0-24 tablet by [facility] of tablet 00:00: mouth at [place] 00 bedtime. Medical Branch losartan 25 2021-06 Yes [id number] 25mg Take 1 [facility] mg tablet 0-24 tablet by [facility] o f 00:00: mouth in [place] the Medical morning. Branch atorvastati 2021-06 Yes [id number] 20mg Take 1 [facility] n 20 mg 0-24 tablet by [facility] of tablet 00:00: mouth at [place] 00 bedtime. Medical Branch losartan 2021-06 Yes [id number] 25mg Take 1 [facility] mg tablet 0-24 tablet by [facility] o f 00:00: mouth in [place] the Medical morning. Branch atorvastati 2021-06 Yes [id number] 20mg Take 1 [facility] n 20 mg 0-24 tablet by [facility] of tablet 00:00: mouth at [place] 00 bedtime. Medical Branch losartan 2021-06 Yes [id number] 25mg Take 1 [facility] mg tablet 0-24 tablet by [facility] o f 00:00: mouth in [place] the Medical morning. Branch atorvastati 2021-06 Yes [id number] 20mg Take 1 [facility] n 20 mg 0-24 tablet by [facility] of tablet 00:00: mouth at [place] 00 bedtime. Medical Branch losartan 25 2021-06 Yes [id number] 25mg Take 1 [facility] mg tablet 0-24 tablet by [facility] o f 00:00: mouth in [place] the Medical morning. Branch atorvastati 2021-06 Yes [id number] 20mg Take 1 [facility] n 20 mg 0-24 tablet by [facility] of tablet 00:00: mouth at [place] 00 bedtime. Medical Branch losartan 25 2021-06 Yes [id number] 25mg Take 1 [facility] mg tablet 0-24 tablet by [facility] o f 00:00: mouth in [place] 00 the Medical morning. Branch atorvastati 2021-06 Yes [id number] 20mg Take 1 [facility] n 20 mg 0-24 tablet by [facility] of tablet 00:00: mouth at [place] 00 bedtime. Medical Branch losartan 2021-06 Yes [id number] 25mg Take 1 [facility] mg tablet 0-24 tablet by [facility] o f 00:00: mouth in [place] 00 the Medical morning. Branch atorvastati 2021-06 Yes [id number] 20mg Take 1 [facility] n 20 mg 0-24 tablet by [facility] of tablet 00:00: mouth at [place] 00 bedtime. Medical Branch losartan 2021-06- No [id number] 25mg Take 1 [facility] mg tablet 0-24 03-06 tablet by [facility] of 00:00: 00:00 mouth in [place] 00 :00 the Medical morning. Branch atorvastati 2021-06- No [id number] 20mg Take 1 [facility] n 20 mg 0-24 03-06 tablet by [facility] of tablet 00:00: 00:00 mouth at [place] 00 :00 bedtime. Medical Branch losartan 2021-06- No [id number] 25mg Take 1 [facility] mg tablet 0-24 03-06 tablet by [facility] of 00:00: 00:00 mouth in [place] 00 :00 the Medical morning. Branch atorvastati 2021-06- No [id number] 20mg Take 1 [facility] n 20 mg 0-24 03-06 tablet by [facility] of tablet 00:00: 00:00 mouth at [place] 00 :00 bedtime. Medical Branch lamoTRIgine 2021-06 Yes [id number] 200mg Take 2 [facility] 100 mg 0-11 tablets by [facility] of tablet 00:00: mouth in [place] 00 the Medical morning. Branch LORazepam 2021-06 Yes [id number] 1mg Take 1 [facility] (ATIVAN) 1 0-11 tablet by [facility] mg tablet 00:00: mouth 2 [place] 00 (two) Medical times Branch daily as needed for Anxiety or Agitation. prazosin 2021-06 Yes [id number] 1mg Take 1 [facility] mg capsule 0-11 capsule by [facility] of 00:00: mouth at [place] 00 bedtime. Medical Branch lamoTRIgine 2021-06 Yes [id number] 200mg Take 2 [facility] 100 mg 0-11 tablets by [facility] of tablet 00:00: mouth in [place] 00 the Medical morning. Branch LORazepam 2021-06 Yes [id number] 1mg Take 1 [facility] (ATIVAN) 1 0-11 tablet by [facility] of mg tablet 00:00: mouth 2 [place] (two) Medical times [place] daily as needed for Anxiety or Agitation. prazosin 2021-06 Yes [id number] 1mg Take 1 [facility] mg capsule 0-11 capsule by [facility] of 00:00: mouth at [place] 00 bedtime. Medical Branch lamoTRIgine 2021-06 Yes [id number] 200mg Take 2 [facility] 100 mg 0-11 tablets by [facility] of tablet 00:00: mouth in [place] the Medical morning. Branch LORazepam 2021-06 Yes [id number] 1mg Take 1 [facility] (ATIVAN) 1 0-11 tablet by [facility] of mg tablet 00:00: mouth 2 [place] (two) [facility] daily as needed for Anxiety or Agitation. prazosin 2021-06 Yes [id number] 1mg Take 1 [facility] nivers mg capsule 0-11 capsule by ity of 00:00: mouth at [place] [address] bedtime. Medical Branch lamoTRIgine 2021-06 Yes [id number] 200mg Take 2 [facility] 100 mg 0-11 tablets by [facility] of tablet 00:00: mouth in [place] the Medical morning. Branch LORazepam 2021-06 Yes [id number] 1mg Take 1 [facility] (ATIVAN) 1 0-11 tablet by [facility] of mg tablet 00:00: mouth 2 [place] (two) [facility] daily as needed for Anxiety or Agitation. prazosin 2021-06 Yes [id number] 1mg Take 1 [facility] n[facility] mg capsule 0-11 capsule by [facility] of 00:00: mouth at [place] [address] bedtime. Medical Branch lamoTRIgine 2021-06 Yes [id number] 200mg Take 2 [facility] 100 mg 0-11 tablets by [facility] of tablet 00:00: mouth in [place] 00 the Medical morning. Branch prazosin 2021-06 Yes [id number] 1mg Take 1 [facility] n[facility] mg capsule 0-11 capsule by it[facility] of 00:00: mouth at [place] [address] bedtime. Medical Branch lamoTRIgine 2021-06 Yes [id number] 200mg Take 2 [facility] 100 mg 0-11 tablets by [facility] of tablet 00:00: mouth in [place] the Medical morning. Branch prazosin 2021-06 Yes [id number] 1mg Take 1 [facility] n[facility] mg capsule 0-11 capsule by [facility] of 00:00: mouth at [place] [address] bedtime. Medical Branch lamoTRIgine 2021-06 Yes [id number] 200mg Take 2 [facility] 100 mg 0-11 tablets by [facility] of tablet 00:00: mouth in [place] the Medical morning. Branch prazosin 2021-06 Yes [id number] 1mg Take 1 [facility] n[facility] mg capsule 0-11 capsule by [facility] of 00:00: mouth at [place] [address] bedtime. Medical Branch lamoTRIgine 2021-06 Yes [id number] 200mg Take 2 [facility] 100 mg 0-11 tablets by [facility] of tablet 00:00: mouth in [place] the Medical morning. Branch prazosin 2021-06 Yes [id number] 1mg Take 1 [facility] mg capsule 0-11 capsule by [facility] of 00:00: mouth at [place] [address] bedtime. Medical Branch lamoTRIgine 2021-06 Yes [id number] 200mg Take 2 [facility] 100 mg 0-11 tablets by [facility] of tablet 00:00: mouth in [place] the Medical morning. Branch prazosin 2021-06 Yes [id number] 1mg Take 1 [facility] mg capsule 0-11 capsule by [facility] of 00:00: mouth at [place] [address] bedtime. Medical Branch lamoTRIgine 2021-06 Yes [id number] 200mg Take 2 [facility] 100 mg 0-11 tablets by [facility] of tablet 00:00: mouth in [place] the Medical morning. Branch prazosin 2021-06 Yes [id number] 1mg Take 1 [facility] mg capsule 0-11 capsule by [facility] of 00:00: mouth at [place] [address] bedtime. Medical Branch lamoTRIgine 2021-06 Yes [id number] 200mg Take 2 [facility] 100 mg 0-11 tablets by [facility] of tablet 00:00: mouth in [place] the Medical morning. Branch prazosin 2021-06 Yes [id number] 1mg Take 1 [facility] n[facility] mg capsule 0-11 capsule by [facility] of 00:00: mouth at [place] [address] bedtime. Medical Branch lamoTRIgine 2021-06 Yes [id number] 200mg Take 2 [facility] 100 mg 0-11 tablets by [facility] of tablet 00:00: mouth in [place] the Medical morning. Branch prazosin 2021-06 Yes [id number] 1mg Take 1 [facility] n[facility] mg capsule 0-11 capsule by [facility] of 00:00: mouth at [place] [address] bedtime. Medical Branch lamoTRIgine 2021-06 Yes [id number] 200mg Take 2 [facility] 100 mg 0-11 tablets by [facility] of tablet 00:00: mouth in [place] the Medical morning. Branch prazosin 2021-06 Yes [id number] 1mg Take 1 [facility] mg capsule 0-11 capsule by [facility] of 00:00: mouth at [place] [address] bedtime. Medical Branch lamoTRIgine 2021-06 Yes [id number] 200mg Take 2 [facility] 100 mg 0-11 tablets by [facility] of tablet 00:00: mouth in [place] the Medical morning. Branch prazosin 2021-06 Yes [id number] 1mg Take 1 [facility] n[facility] mg capsule 0-11 capsule by [facility] of 00:00: mouth at [place] [address] bedtime. Medical Branch lamoTRIgine 2021-06 Yes [id number] 200mg Take 2 [facility] 100 mg 0-11 tablets by [facility] of tablet 00:00: mouth in [place] the Medical morning. Branch prazosin 2021-06 Yes [id number] 1mg Take 1 [facility] n[facility] mg capsule 0-11 capsule by [facility] of 00:00: mouth at [place] [address] bedtime. Medical Branch lamoTRIgine 2021-06 Yes [id number] 200mg Take 2 [facility] 100 mg 0-11 tablets by [facility] of tablet 00:00: mouth in [place] the Medical morning. Branch prazosin 2021-06 Yes [id number] 1mg Take 1 [facility] n[facility] mg capsule 0-11 capsule by [facility]y of 00:00: mouth at [place] 00 bedtime. Medical Branch lamoTRIgine 2021-06 Yes [id number] 200mg Take 2 [facility] 100 mg 0-11 tablets by [facility] of tablet 00:00: mouth in [place] the Medical morning. Branch prazosin 2021-06 Yes [id number] 1mg Take 1 [facility] nivers mg capsule 0-11 capsule by [facility] of 00:00: mouth at [place] [address] bedtime. Medical Branch lamoTRIgine 2021-06 Yes [id number] 200mg Take 2 [facility] 100 mg 0-11 tablets by [facility] of tablet 00:00: mouth in [place] 00 the Medical morning. Branch prazosin 2021-06 Yes [id number] 1mg Take 1 [facility] n[facility] mg capsule 0-11 capsule by [facility]y of 00:00: mouth at [place] 00 bedtime. Medical Branch lamoTRIgine 2021-06 Yes [id number] 200mg Take 2 [facility] 100 mg 0-11 tablets by [facility] of tablet 00:00: mouth in [place] 00 the Medical morning. Branch prazosin 2021-06 Yes [id number] 1mg Take 1 [facility] mg capsule 0-11 capsule by [facility] of 00:00: mouth at [place] 00 bedtime. Medical Branch lamoTRIgine 2021-06 Yes [id number] 200mg Take 2 [facility] 100 mg 0-11 tablets by [facility] of tablet 00:00: mouth in [place] 00 the Medical morning. Branch prazosin 2021-06 Yes [id number] 1mg Take 1 [facility] mg capsule 0-11 capsule by [facility] of 00:00: mouth at [place] 00 bedtime. Medical Branch lamoTRIgine 2021-06 Yes [id number] 200mg Take 2 [facility] 100 mg 0-11 tablets by [facility] of tablet 00:00: mouth in [place] 00 the Medical morning. Branch prazosin 2021-06 Yes [id number] 1mg Take 1 [facility] nivers mg capsule 0-11 capsule by [facility] of 00:00: mouth at [place] 00 bedtime. Medical Branch lamoTRIgine 2021-06- No [id number] 200mg Take 2 [facility] 100 mg 0-11 01-18 tablets by ity of tablet 00:00: 00:00 mouth in [place] 00 :00 the Medical morning. Branch prazosin 2021-06- No [id number] 1mg Take 1 [facility] mg capsule 0-11 01-18 capsule by it y of 00:00: 00:00 mouth at [place] 00 :00 bedtime. Medical Branch lamoTRIgine 2021-06- No [id number] 200mg Take 2 [facility] 100 mg 0-11 01-18 tablets by ity of tablet 00:00: 00:00 mouth in [place] 00 :00 the Medical morning. Branch prazosin 2021-06- No [id number] 1mg Take 1 [facility] mg capsule 0-11 01-18 capsule by it y of 00:00: 00:00 mouth at [place] 00 :00 bedtime. Medical Branch LORazepam 2021-06- No [id number] 1mg Take 1 [facility] n[facility] (ATIVAN) 1 0-11 10-25 tablet by it[facility] of mg tablet 00:00: 00:[place] 00 [place] (two) Medical times Branch daily as needed for Anxiety or Agitation. LORazepam 2021-06- No [id number] 1mg Take 1 [facility] (ATIVAN) 1 0-11 10-25 tablet by it[facility] of mg tablet 00:00: 00:[place] :[place] (two) Medical times Branch daily as needed for Anxiety or Agitation. LORazepam 2021-06 Yes [id number] 1mg Take 1 [facility] [place] (ATIVAN) 1 0-10 tablet by ity of mg tablet 00:00: mouth 2 [place] (two) Medical times Branch daily as needed for Anxiety or Agitation. prazosin 2021-06 Yes [id number] 1mg Take 1 [facility] n[facility] mg capsule 0-10 capsule by ity of 00:00: mouth at [place] [address] bedtime. Medical Branch lamoTRIgine 2021-06 Yes [id number] 200mg Take 2 [facility] 100 mg 0-10 tablets by ity of tablet 00:00: mouth in [place] 00 the Medical morning. Branch LORazepam 2021-06 Yes [id number] 1mg Take 1 [facility] [place] (ATIVAN) 1 0-10 tablet by ity of mg tablet 00:00: mouth 2 [place] (two) Medical times Branch daily as needed for Anxiety or Agitation. prazosin 2021-06 Yes [id number] 1mg Take 1 [facility] nivers mg capsule 0-10 capsule by ity of 00:00: mouth at [place] [address] bedtime. Medical Branch lamoTRIgine 2021-06 Yes [id number] 200mg Take 2 [facility] 100 mg 0-10 tablets by ity of tablet 00:00: mouth in [place] 00 the Medical morning. Branch LORazepam 2021-06- No [id number] 1mg Take 1 [facility] (ATIVAN) 1 0-10 10-11 tablet by it[facility] of mg tablet 00:00: 00:[place] :[place] (two) Medical times [place] daily as needed for Anxiety or Agitation. prazosin 1 2021-06- No [id number] 1mg Take 1 [facility] mg capsule 0-10 10-11 capsule by it y of 00:00: 00:00 mouth at [place] 00 :00 bedtime. [facility] lamoTRIgine 2021-06- No [id number] 200mg Take 2 [facility] 100 mg 0-10 10-11 tablets by ity of tablet 00:00: 00:00 mouth in [place] 00 :00 the Medical morning. [place] FAMOTIDINE 2021-06 Yes [id number] TAKE ONE [facility] 40 mg 0-04 TABLET BY ity of tablet 00:00: MOUTH [place] 00 EVERY DAY Medical IN THE [place] MORNING. FAMOTIDINE 2021-06 Yes [id number] TAKE ONE [facility] 40 mg 0-04 TABLET BY ity of tablet 00:00: MOUTH [place] 00 EVERY DAY Medical IN THE [place] MORNING. FAMOTIDINE 2021-06 Yes [id number] TAKE ONE [facility] 40 mg 0-04 TABLET BY ity of tablet 00:00: MOUTH [place] 00 EVERY DAY Medical IN THE [place] MORNING. FAMOTIDINE 2021-06 Yes [id number] TAKE ONE [facility] 40 mg 0-04 TABLET BY ity of tablet 00:00: MOUTH [place] 00 EVERY DAY Medical IN THE [place] MORNING. FAMOTIDINE 2021-06 Yes [id number] TAKE ONE [facility] 40 mg 0-04 TABLET BY ity of tablet 00:00: MOUTH [place] 00 EVERY DAY Medical IN THE [place] MORNING. FAMOTIDINE 2021-06 Yes [id number] TAKE ONE [facility] 40 mg 0-04 TABLET BY ity of tablet 00:00: MOUTH [place] 00 EVERY DAY Medical IN THE [place] MORNING. FAMOTIDINE 2021-06 Yes [id number] TAKE ONE [facility] 40 mg 0-04 TABLET BY ity of tablet 00:00: MOUTH [place] 00 EVERY DAY Medical IN THE [place] MORNING. FAMOTIDINE 2021-06 Yes [id number] TAKE ONE [facility] 40 mg 0-04 TABLET BY ity of tablet 00:00: MOUTH [place] 00 EVERY DAY Medical IN THE [place] MORNING. FAMOTIDINE 2021-06 Yes [id number] TAKE ONE [facility] 40 mg 0-04 TABLET BY ity of tablet 00:00: MOUTH [place] 00 EVERY DAY Medical IN THE [place] MORNING. FAMOTIDINE 2021-06 Yes [id number] TAKE ONE [facility] 40 mg 0-04 TABLET BY ity of tablet 00:00: MOUTH [place] 00 EVERY DAY Medical IN THE [place] MORNING. FAMOTIDINE 2021-06- No [id number] TAKE ONE [facility] 40 mg 0-04 11-03 TABLET BY ity of tablet 00:00: 00:00 MOUTH [place] 00 :00 EVERY DAY Medical IN THE [place] MORNING. FAMOTIDINE 2021-06- No [id number] TAKE ONE [facility] 40 mg 0-04 11-03 TABLET BY ity of tablet 00:00: 00:00 MOUTH [place] 00 :00 EVERY DAY Medical IN THE [place] MORNING. LORazepam Yes [id number] 1mg Take 1 [facility] [place] (ATIVAN) 1 9-12 tablet by ity of mg tablet 00:00: mouth (two) Medical times [place] daily as needed for Anxiety or Agitation. LORazepam Yes [id number] 1mg Take 1 [facility] [place] (ATIVAN) 1 9-12 tablet by ity of mg tablet 00:00: mouth (two) Medical times Branch daily as needed for Anxiety or Agitation. LORazepam Yes [id number] 1mg Take 1 [facility] [place] (ATIVAN) 1 9-12 tablet by ity of mg tablet 00:00: mouth (two) Medical times Branch daily as needed for Anxiety or Agitation. LORazepam Yes [id number] 1mg Take 1 [facility] [place] (ATIVAN) 1 9-12 tablet by ity of mg tablet 00:00: mouth (two) Medical times Branch daily as needed for Anxiety or Agitation. LORazepam Yes [id number] 1mg Take 1 [facility] [place] (ATIVAN) 1 9-12 tablet by ity of mg tablet 00:00: mouth 2 (two) Medical times Branch daily as needed for Anxiety or Agitation. LORazepam 2021- No [id number] 1mg Take 1 [facility] n[facility] (ATIVAN) 1 9-12 10-10 tablet by it[facility] of mg tablet 00:00: 00:[place] :[place] (two) Medical times Branch daily as needed for Anxiety or Agitation. famotidine Yes [id number] 40mg Take 1 [facility] (PEPCID) 40 9-01 tablet by [facility] of mg tablet 00:00: [place] 00 the Medical morning. Branch famotidine 2021-0 Yes [id number] 40mg Take 1 [facility] (PEPCID) 40 9- tablet by [facility] mg tablet 00:00: [place] 00 the Medical morning. Branch famotidine 2021-0 Yes [id number] 40mg Take 1 [facility] (PEPCID) 40 9- tablet by [facility] mg tablet 00:00: [place] 00 the Medical morning. Branch famotidine 2021-0 Yes [id number] 40mg Take 1 [facility] (PEPCID) 40 9- tablet by [facility] mg tablet 00:00: [place] 00 the Medical morning. Branch famotidine 2021-0 2021- No [id number] 40mg Take 1 [facility] (PEPCID) 40 - 10- tablet by it y of mg tablet 00:00: 00:00 mouth in [place] 00 :00 the Medical morning. Branch famotidine 2021-0 2021- No [id number] 40mg Take 1 [facility] (PEPCID) 40 02-06 tablet by it y of mg tablet 00:00: 00:00 mouth in [place] 00 :00 the Medical morning. Branch Nitrofurant 0 Yes [id number] 100mg Take 1 [facility] oin&Nit. 8-19 capsule by ity o f [place] 00:00: mouth in [place] ([place]) 00 the Medical 100 mg morning Branch capsule and 1 capsule in the evening. Nitrofurant 2021-0 Yes [id number] 100mg Take 1 [facility] oin&Nit. 8-19 capsule by ity o f [place] 00:00: mouth [place] ([place] 00 the Medical 100 mg morning Branch capsule and 1 capsule in the evening. Nitrofurant 2021-0 Yes [id number] 100mg Take 1 [facility] oin&Nit. 8-19 capsule by ity o f [place] 00:00: mouth [place] ([place] 00 the Medical 100 mg morning Branch capsule and 1 capsule in the evening. Nitrofurant 2021-0 Yes [id number] 100mg Take 1 [facility] oin&Nit. 8-19 capsule by ity o f [place] 00:00: mouth [place] ([place]) 00 the Medical 100 mg morning Branch capsule and 1 capsule in the evening. Nitrofurant 0 Yes [id number] 100mg Take 1 [facility] oin&Nit. 8-19 capsule by ity o f [place] 00:00: mouth [place] ([place]) 00 the Medical 100 mg morning Branch capsule and 1 capsule in the evening. Nitrofurant 0 Yes [id number] 100mg Take 1 [facility] oin&Nit. 8-19 capsule by ity o f [place] 00:00: mouth [place] ([place] 00 the Medical 100 mg morning Branch capsule and 1 capsule in the evening. Nitrofurant Yes [id number] 100mg Take 1 [facility] oin&Nit. 8-19 capsule by ity o f [place] 00:00: mouth in [place] ([place]) 00 the Medical 100 mg morning Branch capsule and 1 capsule in the evening. Nitrofurant Yes [id number] 100mg Take 1 [facility] oin&Nit. 8-19 capsule by ity o f [place] 00:00: mouth [place] ([place]) 00 the Medical 100 mg morning Branch capsule and 1 capsule in the evening. Nitrofurant Yes [id number] 100mg Take 1 [facility] oin&Nit. 8-19 capsule by ity o f [place] 00:00: mouth [place] ([place]) 00 the Medical 100 mg morning Branch capsule and 1 capsule in the evening. Nitrofurant 0 Yes [id number] 100mg Take 1 [facility] oin&Nit. 8-19 capsule by ity o f [place] 00:00: mouth [place] ([place]) 00 the Medical 100 mg morning Branch capsule and 1 capsule in the evening. Nitrofurant 0 Yes [id number] 100mg Take 1 [facility] oin&Nit. 8-19 capsule by ity o f [place] 00:00: mouth [place] ([place]) 00 the Medical 100 mg morning Branch capsule and 1 capsule in the evening. Nitrofurant 0 Yes [id number] 100mg Take 1 [facility] oin&Nit. 8-19 capsule by ity o f [place] 00:00: mouth [place] ([place]) 00 the Medical 100 mg morning Branch capsule and 1 capsule in the evening. Nitrofurant Yes [id number] 100mg Take 1 [facility] oin&Nit. 8-19 capsule by ity o f [place] 00:00: mouth [place] ([place]) 00 the Medical 100 mg morning Branch capsule and 1 capsule in the evening. Nitrofurant Yes [id number] 100mg Take 1 [facility] oin&Nit. 8-19 capsule by ity o f [place] 00:00: mouth [place] ([place]) 00 the Medical 100 mg morning Branch capsule and 1 capsule in the evening. Nitrofurant Yes [id number] 100mg Take 1 [facility] oin&Nit. 8-19 capsule by ity o f [place] 00:00: mouth [place] ([place]) 00 the Medical 100 mg morning Branch capsule and 1 capsule in the evening. Nitrofurant Yes [id number] 100mg Take 1 [facility] oin&Nit. 8-19 capsule by ity o f [place] 00:00: mouth [place] ([place]) 00 the Medical 100 mg morning Branch capsule and 1 capsule in the evening. Nitrofurant Yes [id number] 100mg Take 1 [facility] oin&Nit. 8-19 capsule by ity o f [place] 00:00: mouth [place] ([place]) 00 the Medical 100 mg morning Branch capsule and 1 capsule in the evening. Nitrofurant Yes [id number] 100mg Take 1 [facility] oin&Nit. 8-19 capsule by ity o f [place] 00:00: mouth [place] ([place]CR[place]) 00 the Medical 100 mg morning Branch capsule and 1 capsule in the evening. Nitrofurant 0 Yes [id number] 100mg Take 1 [facility] oin&Nit. 8-19 capsule by ity o f [place]ryst 00:00: mouth [place] ([place]CR[place]) 00 the Medical 100 mg morning Branch capsule and 1 capsule in the evening. Nitrofurant 0 Yes [id number] 100mg Take 1 [facility] oin&Nit. 8-19 capsule by ity o f [place] 00:00: mouth [place] ([place]CR[place]) 00 the Medical 100 mg morning Branch capsule and 1 capsule in the evening. Nitrofurant Yes [id number] 100mg Take 1 [facility] oin&Nit. 8-19 capsule by ity o f [place] 00:00: mouth [place] ([place]CR[place]) 00 the Medical 100 mg morning Branch capsule and 1 capsule in the evening. Nitrofurant Yes [id number] 100mg Take 1 [facility] oin&Nit. 8-19 capsule by ity o f [place] 00:00: mouth [place] ([place]CR[place]) 00 the Medical 100 mg morning Branch capsule and 1 capsule in the evening. Nitrofurant Yes [id number] 100mg Take 1 [facility] oin&Nit. 8-19 capsule by ity o f [place] 00:00: mouth [place] ([place]CR[place]) 00 the Medical 100 mg morning Branch capsule and 1 capsule in the evening. Nitrofurant Yes [id number] 100mg Take 1 [facility] oin&Nit. 8-19 capsule by ity o f [place]ryst 00:00: mouth [place] ([place]CR[place]) 00 the Medical 100 mg morning Branch capsule and 1 capsule in the evening. Nitrofurant Yes [id number] 100mg Take 1 [facility] oin&Nit. 8-19 capsule by ity o f [place]ryst 00:00: mouth in [place] ([place]CR[place]) 00 the Medical 100 mg morning Branch capsule and 1 capsule in the evening. Nitrofurant Yes [id number] 100mg Take 1 [facility] oin&Nit. 8-19 capsule by ity o f [place]ryst 00:00: mouth [place] ([place]CR[place]) 00 the Medical 100 mg morning Branch capsule and 1 capsule in the evening. Nitrofurant 0 Yes [id number] 100mg Take 1 [facility] oin&Nit. 8-19 capsule by ity o f [place] 00:00: mouth [place] ([place]CR[place]) 00 the Medical 100 mg morning Branch capsule and 1 capsule in the evening. Nitrofurant 0 Yes [id number] 100mg Take 1 [facility] oin&Nit. 8-19 capsule by ity o f [place] 00:00: mouth [place] ([place]CR[place]) 00 the Medical 100 mg morning Branch capsule and 1 capsule in the evening. Nitrofurant Yes [id number] 100mg Take 1 [facility] oin&Nit. 8-19 capsule by ity o f [place] 00:00: mouth in [place] ([place]CROB[place]) 00 the Medical 100 mg morning Branch capsule and 1 capsule in the evening. Nitrofurant Yes [id number] 100mg Take 1 [facility] oin&Nit. 8-19 capsule by ity o f [place]ryst 00:00: mouth in [place] ([place]CROB[place]) 00 the Medical 100 mg morning Branch capsule and 1 capsule in the evening. Nitrofurant Yes [id number] 100mg Take 1 [facility] oin&Nit. 8-19 capsule by ity o f [place]ryst 00:00: mouth in [place] ([place]CROBID) 00 the Medical 100 mg morning Branch capsule and 1 capsule in the evening. Nitrofurant Yes [id number] 100mg Take 1 [facility] oin&Nit. 8-19 capsule by ity o f [place]ryst 00:00: mouth in [place] ([place]CROBID) 00 the Medical 100 mg morning Branch capsule and 1 capsule in the evening. Nitrofurant Yes [id number] 100mg Take 1 [facility] oin&Nit. 8-19 capsule by ity o f [place]ryst 00:00: mouth in [place] ([place]CROBID) 00 the Medical 100 mg morning Branch capsule and 1 capsule in the evening. Nitrofurant Yes [id number] 100mg Take 1 [facility] oin&Nit. 8-19 capsule by ity o f [place]ryst 00:00: mouth in [place] ([place]CROBID) 00 the Medical 100 mg morning Branch capsule and 1 capsule in the evening. Nitrofurant Yes [id number] 100mg Take 1 [facility] oin&Nit. 8-19 capsule by ity o f [place] 00:00: mouth in [place] ([place]CROBID) 00 the Medical 100 mg morning Branch capsule and 1 capsule in the evening. Nitrofurant 0 Yes [id number] 100mg Take 1 [facility] oin&Nit. 8-19 capsule by ity o f [place] 00:00: mouth in [place] ([place]CR[place]) 00 the Medical 100 mg morning Branch capsule and 1 capsule in the evening. Nitrofurant 0 Yes [id number] 100mg Take 1 [facility] oin&Nit. 8-19 capsule by ity o f [place]ryst 00:00: mouth in [place] ([place]CROBID) 00 the Medical 100 mg morning Branch capsule and 1 capsule in the evening. Nitrofurant 0 Yes [id number] 100mg Take 1 [facility] oin&Nit. 8-19 capsule by ity o f [place]ryst 00:00: mouth in [place] ([place]CROBID) 00 the Medical 100 mg morning Branch capsule and 1 capsule in the evening. Nitrofurant Yes [id number] 100mg Take 1 [facility] oin&Nit. 8-19 capsule by ity o f [place]ryst 00:00: mouth in [place] ([place]CROBID) 00 the Medical 100 mg morning Branch capsule and 1 capsule in the evening. Nitrofurant Yes [id number] 100mg Take 1 [facility] oin&Nit. 8-19 capsule by ity o f [place]ryst 00:00: mouth in [place] ([place]CROBID) 00 the Medical 100 mg morning Branch capsule and 1 capsule in the evening. Nitrofurant Yes [id number] 100mg Take 1 [facility] oin&Nit. 8-19 capsule by ity o f [place] 00:00: mouth in [place] ([place]CROBID) 00 the Medical 100 mg morning Branch capsule and 1 capsule in the evening. Nitrofurant 0 Yes [id number] 100mg Take 1 [facility] oin&Nit. 8-19 capsule by ity o f [place] 00:00: mouth in [place] ([place]CROB[place]) 00 the Medical 100 mg morning Branch capsule and 1 capsule in the evening. Nitrofurant 2021-0 Yes [id number] 100mg Take 1 [facility] oin&Nit. 8-19 capsule by ity o f [place] 00:00: mouth in [place] ([place]CROBID) 00 the Medical 100 mg morning Branch capsule and 1 capsule in the evening. Nitrofurant 2021-0 Yes [id number] 100mg Take 1 [facility] oin&Nit. 8-19 capsule by ity o f [place] 00:00: mouth in [place] ([place]CROBID) 00 the Medical 100 mg morning Branch capsule and 1 capsule in the evening. Nitrofurant 2021-0 Yes [id number] 100mg Take 1 [facility] oin&Nit. 8-19 capsule by ity o f [place] 00:00: mouth in [place] ([place]CROBID) 00 the Medical 100 mg morning Branch capsule and 1 capsule in the evening. Nitrofurant 2021-0 Yes [id number] 100mg Take 1 [facility] oin&Nit. 8-19 capsule by ity o f [place] 00:00: mouth in [place] ([place]CROBID) 00 the Medical 100 mg morning Branch capsule and 1 capsule in the evening. Nitrofurant 0 Yes [id number] 100mg Take 1 [facility] oin&Nit. 8-19 capsule by ity o f [place] 00:00: mouth in [place] ([place]CROBID) 00 the Medical 100 mg morning Branch capsule and 1 capsule in the evening. Nitrofurant Yes [id number] 100mg Take 1 [facility] oin&Nit. 8-19 capsule by ity o f [place] 00:00: mouth in [place] ([place]CROBID) 00 the Medical 100 mg morning Branch capsule and 1 capsule in the evening. Nitrofurant Yes [id number] 100mg Take 1 [facility] oin&Nit. 8-19 capsule by ity o f [place]ryst 00:00: mouth in [place] ([place]CROB[place]) 00 the Medical 100 mg morning Branch capsule and 1 capsule in the evening. Nitrofurant 2021-0 Yes [id number] 100mg Take 1 [facility] oin&Nit. 8-19 capsule by ity o f [place] 00:00: mouth in [place] ([place]CR[place]) 00 the Medical 100 mg morning Branch capsule and 1 capsule in the evening. Nitrofurant 2021-0 Yes [id number] 100mg Take 1 [facility] oin&Nit. 8-19 capsule by ity o f [place] 00:00: mouth in [place] ([place]CR[place]) 00 the Medical 100 mg morning Branch capsule and 1 capsule in the evening. Nitrofurant 2021-0 Yes [id number] 100mg Take 1 [facility] oin&Nit. 8-19 capsule by ity o f [place] 00:00: mouth in [place] ([place]CR[place]) 00 the Medical 100 mg morning Branch capsule and 1 capsule in the evening. Nitrofurant Yes [id number] 100mg Take 1 [facility] oin&Nit. 8-19 capsule by ity o f [place] 00:00: mouth in [place] ([place]CR[place]) 00 the Medical 100 mg morning Branch capsule and 1 capsule in the evening. Nitrofurant Yes [id number] 100mg Take 1 [facility] oin&Nit. 8-19 capsule by ity o f [place] 00:00: mouth in [place] ([place]CR[place]) 00 the Medical 100 mg morning Branch capsule and 1 capsule in the evening. Nitrofurant Yes [id number] 100mg Take 1 [facility] oin&Nit. 8-19 capsule by ity o f [place] 00:00: mouth in [place] ([place]CR[place]) 00 the Medical 100 mg morning Branch capsule and 1 capsule in the evening. Nitrofurant Yes [id number] 100mg Take 1 [facility] oin&Nit. 8-19 capsule by ity o f [place] 00:00: mouth in [place] ([place]CR[place]) 00 the Medical 100 mg morning Branch capsule and 1 capsule in the evening. Nitrofurant Yes [id number] 100mg Take 1 [facility] oin&Nit. 8-19 capsule by ity o f [place] 00:00: mouth in [place] ([place]CR[place]) 00 the Medical 100 mg morning Branch capsule and 1 capsule in the evening. Nitrofurant Yes [id number] 100mg Take 1 [facility] oin&Nit. 8-19 capsule by ity o f [place] 00:00: mouth in [place] ([place]CROBID) 00 the Medical 100 mg morning Branch capsule and 1 capsule in the evening. Nitrofurant Yes [id number] 100mg Take 1 [facility] oin&Nit. 8-19 capsule by ity o f [place] 00:00: mouth in [place] ([place]CR[place]) 00 the Medical 100 mg morning Branch capsule and 1 capsule in the evening. Nitrofurant Yes [id number] 100mg Take 1 [facility] oin&Nit. 8-19 capsule by ity o f [place] 00:00: mouth in [place] ([place]CROB[place]) 00 the Medical 100 mg morning Branch capsule and 1 capsule in the evening. Nitrofurant 0 3- No [id number] 100mg Take 1 [facility] oin&Nit. 01-24 capsule by ity of [place] 00:00: 00:00 mouth in [place] (MACROBID) 00 :00 the Medical 100 mg morning Branch capsule and 1 capsule in the evening. Nitrofurant 2021-0 2023- No [id number] 100mg Take 1 [facility] oin&Nit. 01-24 capsule by ity of [place] 00:00: 00:00 mouth in [place] (MACROBID) 00 :00 the Medical 100 mg morning Branch capsule and 1 capsule in the evening. Insulin 0 Yes [id number] Use as Univ ers [place], 8-10 directed ity of Disposable, 00:00: [place] ([place] [address]) 32 Branch gauge x 1/4" Ndle Insulin 2021-0 Yes [id number] Use as Univ ers [place], 8-10 directed ity of Disposable, 00:00: [place] ([place] [address]) 32 Branch gauge x 1/4" Ndle Insulin 2021-0 Yes [id number] Use as Univ ers [place], 8-10 directed ity of Disposable, 00:00: [place] ([place] [address]) 32 Branch gauge x 1/4" Ndle Insulin 2021-0 Yes [id number] Use as Univ ers [place], 8-10 directed ity of Disposable, 00:00: [place] ([place] [address]) 32 Branch gauge x 1/4" Ndle Insulin 2021-0 Yes [id number] Use as Univ ers [place], 8-10 directed ity of Disposable, 00:00: [place] ([place] [address]) 32 Branch gauge x 1/4" Ndle Insulin 2021-0 Yes [id number] Use as Univ ers [place], 8-10 directed ity of Disposable, 00:00: [place] ([place] [address]) 32 Branch gauge x 1/4" Ndle Insulin 2021-0 Yes [id number] Use as Univ ers [place], 8-10 directed ity of Disposable, 00:00: [place] ([place] [address]) 32 Branch gauge x 1/4" Ndle Insulin 2021-0 Yes [id number] Use as Univ ers [place], 8-10 directed ity of Disposable, 00:00: [place] ([place] [address]) 32 Branch gauge x 1/4" Ndle Insulin 2022-0 Yes [id number] Use as Univ ers [place], 8-10 directed ity of Disposable, 00:00: [place] ([place] [address]) 32 Branch gauge x 1/4" Ndle Insulin 2022-0 Yes [id number] Use as Univ ers [place], 8-10 directed ity of Disposable, 00:00: [place] ([place] [address]) 32 Branch gauge x 1/4" Ndle Insulin 2022-0 Yes [id number] Use as Univ ers [place], 8-10 directed ity of Disposable, 00:00: [place] ([place] [address]) 32 Branch gauge x 1/4" Ndle Insulin 202-0 Yes [id number] Use as Univ ers [place], 8-10 directed ity of Disposable, 00:00: [place] ([place] [address]) 32 Branch gauge x 1/4" Ndle Insulin 2022-0 Yes [id number] Use as Univ ers [place], 8-10 directed ity of Disposable, 00:00: [place] ([place] [address]) 32 Branch gauge x 1/4" Ndle Insulin 2022-0 Yes [id number] Use as Univ ers [place], 8-10 directed ity of Disposable, 00:00: [place] ([place] [address]) 32 Branch gauge x 1/4" Ndle Insulin 2022-0 Yes [id number] Use as Univ ers [place], 8-10 directed ity of Disposable, 00:00: [place] ([place] [address]) 32 Branch gauge x 1/4" Ndle Insulin 2022-0 Yes [id number] Use as Univ ers [place], 8-10 directed ity of Disposable, 00:00: [place] ([place] [address]) 32 Branch gauge x 1/4" Ndle Insulin 2022-0 Yes [id number] Use as Univ ers [place], 8-10 directed ity of Disposable, 00:00: [place] ([place] [address]) 32 Branch gauge x 1/4" Ndle Insulin 2022-0 Yes [id number] Use as Univ ers [place], 8-10 directed ity of Disposable, 00:00: [place] ([place] [address]) 32 Branch gauge x 1/4" Ndle Insulin 2022-0 Yes [id number] Use as Univ ers [place], 8-10 directed ity of Disposable, 00:00: [place] ([place] [address]) 32 Branch gauge x 1/4" Ndle Insulin 202-0 Yes [id number] Use as Univ ers [place], 8-10 directed ity of Disposable, 00:00: [place] ([place] [address]) 32 Branch gauge x 1/4" Ndle Insulin 202-0 Yes [id number] Use as Univ ers [place], 8-10 directed ity of Disposable, 00:00: [place] ([place] [address]) 32 Branch gauge x 1/4" Ndle Insulin 2021-0 Yes [id number] Use as Univ ers [place], 8-10 directed ity of Disposable, 00:00: [place] ([place] [address]) 32 Branch gauge x 1/4" Ndle Insulin 2021-0 Yes [id number] Use as Univ ers [place], 8-10 directed ity of Disposable, 00:00: [place] ([place] [address]) 32 Branch gauge x 1/4" Ndle Insulin 2021-0 Yes [id number] Use as Univ ers [place], 8-10 directed ity of Disposable, 00:00: [place] ([place] [address]) 32 Branch gauge x 1/4" Ndle Insulin 2021-0 Yes [id number] Use as Univ ers [place], 8-10 directed ity of Disposable, 00:00: [place] ([place] [address]) 32 Branch gauge x 1/4" Ndle Insulin 202-0 Yes [id number] Use as Univ ers [place], 8-10 directed ity of Disposable, 00:00: [place] ([place] [address]) 32 Branch gauge x 1/4" Ndle Insulin 202-0 Yes [id number] Use as Univ ers [place], 8-10 directed ity of Disposable, 00:00: [place] ([place] [address]) 32 Branch gauge x 1/4" Ndle Insulin 202-0 Yes [id number] Use as Univ ers [place], 8-10 directed ity of Disposable, 00:00: [place] ([place] [address]) 32 Branch gauge x 1/4" Ndle Insulin 202-0 Yes [id number] Use as Univ ers [place], 8-10 directed ity of Disposable, 00:00: [place] ([place] [address]) 32 Branch gauge x 1/4" Ndle Insulin 2022-0 Yes [id number] Use as Univ ers [place], 8-10 directed ity of Disposable, 00:00: [place] ([place] [address]) 32 Branch gauge x 1/4" Ndle Insulin 2022-0 Yes [id number] Use as Univ ers [place], 8-10 directed ity of Disposable, 00:00: [place] ([place] [address]) 32 Branch gauge x 1/4" Ndle Insulin 2022-0 Yes [id number] Use as Univ ers [place], 8-10 directed ity of Disposable, 00:00: [place] ([place] [address]) 32 Branch gauge x 1/4" Ndle Insulin 202-0 Yes [id number] Use as Univ ers [place], 8-10 directed ity of Disposable, 00:00: [place] ([place] [address]) 32 Branch gauge x 1/4" Ndle Insulin 202-0 Yes [id number] Use as Univ ers [place], 8-10 directed ity of Disposable, 00:00: [place] ([place] [address]) 32 Branch gauge x 1/4" Ndle Insulin 2022-0 Yes [id number] Use as Univ ers [place], 8-10 directed ity of Disposable, 00:00: [place] ([place]OV[place] [address]) 32 Branch gauge x 1/4" Ndle Insulin 2022-0 Yes [id number] Use as [facility] ers [place], 8-10 directed ity of Disposable, 00:00: [place] ([place] [address]) 32 Branch gauge x 1/4" Ndle Insulin 2022-0 Yes [id number] Use as [facility] ers [place], 8-10 directed ity of Disposable, 00:00: [place] ([place] [address]) 32 Branch gauge x 1/4" Ndle Insulin 2022-0 Yes [id number] Use as [facility] ers [place], 8-10 directed ity of Disposable, 00:00: [place] ([place] [address]) 32 Branch gauge x 1/4" Ndle Insulin 2022-0 Yes [id number] Use as [facility] [place], 8-10 directed ity of Disposable, 00:00: [place] ([place] [address]) 32 Branch gauge x 1/4" Ndle Insulin 2022-0 Yes [id number] Use as [facility] [place], 8-10 directed ity of Disposable, 00:00: [place] ([place] [address]) 32 Branch gauge x 1/4" Ndle Insulin 2022-0 Yes [id number] Use as [facility] [place], 8-10 directed ity of Disposable, 00:00: [place] ([place] [address]) 32 Branch gauge x 1/4" Ndle Insulin 2022-0 Yes [id number] Use as [facility] [place], 8-10 directed ity of Disposable, 00:00: [place] ([place] [address]) 32 Branch gauge x 1/4" Ndle Insulin 2022-0 Yes [id number] Use as [facility] [place], 8-10 directed ity of Disposable, 00:00: [place] ([place] [address]) 32 Branch gauge x 1/4" Ndle Insulin 202-0 Yes [id number] Use as [facility] [place], 8-10 directed ity of Disposable, 00:00: [place] ([place] [address]) 32 Branch gauge x 1/4" Ndle Insulin 2022-0 Yes [id number] Use as [facility] [place], 8-10 directed ity of Disposable, 00:00: [place] ([place] [address]) 32 Branch gauge x 1/4" Ndle Insulin 2022-0 Yes [id number] Use as [facility] [place], 8-10 directed ity of Disposable, 00:00: [place] ([place] [address]) 32 Branch gauge x 1/4" Ndle Insulin 2022-0 Yes [id number] Use as [facility] [place], 8-10 directed ity of Disposable, 00:00: [place] ([place] [address]) 32 Branch gauge x 1/4" Ndle Insulin 2022-0 Yes [id number] Use as [facility] [place], 8-10 directed ity of Disposable, 00:00: [place] ([place] [address]) 32 Branch gauge x 1/4" Ndle Insulin 2022-0 Yes [id number] Use as [facility] [place], 8-10 directed ity of Disposable, 00:00: [place] ([place] [address]) 32 Branch gauge x 1/4" Ndle Insulin 2022-0 Yes [id number] Use as [facility] [place], 8-10 directed ity of Disposable, 00:00: [place] ([place] [address]) 32 Branch gauge x 1/4" Ndle Insulin 2022-0 Yes [id number] Use as [facility] [place], 8-10 directed ity of Disposable, 00:00: [place] ([place] [address]) 32 Branch gauge x 1/4" Ndle Insulin 2022-0 Yes [id number] Use as [facility] [place], 8-10 directed ity of Disposable, 00:00: [place] ([place] [address]) 32 Branch gauge x 1/4" Ndle Insulin 2022-0 Yes [id number] Use as [facility] [place], 8-10 directed ity of Disposable, 00:00: [place] ([place] [address]) 32 Branch gauge x 1/4" Ndle Insulin 2022-0 Yes [id number] Use as [facility] [place], 8-10 directed ity of Disposable, 00:00: [place] ([place] [address]) 32 Branch gauge x 1/4" Ndle Insulin 202-0 Yes [id number] Use as [facility] [place], 8-10 directed ity of Disposable, 00:00: [place] ([place] [address]) 32 Branch gauge x 1/4" Ndle Insulin 2022-0 Yes [id number] Use as [facility] [place], 8-10 directed ity of Disposable, 00:00: [place] ([place] [address]) 32 Branch gauge x 1/4" Ndle Insulin 2022-0 Yes [id number] Use as [facility] [place], 8-10 directed ity of Disposable, 00:00: [place] ([place] [address]) 32 Branch gauge x 1/4" Ndle Insulin 2022-0 Yes [id number] Use as [facility] [place], 8-10 directed ity of Disposable, 00:00: [place] ([place] [address]) 32 Branch gauge x 1/4" Ndle Insulin 2022-0 Yes [id number] Use as [facility] [place], 8-10 directed ity of Disposable, 00:00: [place] ([place] [address]) 32 Branch gauge x 1/4" Ndle Insulin 2022-0 Yes [id number] Use as [facility] [place], 8-10 directed ity of Disposable, 00:00: [place] ([place] [address]) 32 Branch gauge x 1/4" Ndle Insulin 2022-0 Yes [id number] Use as [facility] [place], 8-10 directed ity of Disposable, 00:00: [place] (NOVOFINE 00 Medical ) 32 Branch gauge x 1/4" Ndle Insulin 2021-0 Yes [id number] Use as [facility] [place], 8-10 directed ity of Disposable, 00:00: [place] ([place] [address]) 32 Branch gauge x 1/4" Ndle Insulin 2021-0 Yes [id number] Use as [facility] [place], 8-10 directed ity of Disposable, 00:00: [place] ([place] [address]) 32 Branch gauge x 1/4" Ndle Insulin 2021-0 Yes [id number] Use as [facility] [place], 8-10 directed ity of Disposable, 00:00: [place] ([place] [address]) 32 Branch gauge x 1/4" Ndle Insulin 2021-0 Yes [id number] Use as [facility] [place], 8-10 directed ity of Disposable, 00:00: [place] ([place] [address]) 32 Branch gauge x 1/4" Ndle Insulin 2021-0 Yes [id number] Use as [facility] [place], 8-10 directed ity of Disposable, 00:00: [place] ([place] [address]) 32 Branch gauge x 1/4" Ndle Insulin 0 2023- No [id number] Use as Uni vers [place], 8-20 directed ity of Disposable, 00:00: 00:00 [place] ([place]OVOFINE 00 :00 [place] [address]) 32 Branch gauge x 1/4" Ndle LORazepam 2021- No [id number] 1mg Take 1 U nivers (ATIVAN) 1 01-15 tablet by ity of mg tablet 00:00: 00:[place] mouth [place] 00 :[place] (two) Medical times Branch daily as needed for Anxiety or Agitation. LORazepam 2021- No [id number] 1mg Take 1 U nivers (ATIVAN) 1 01-15-10 tablet by ity of mg tablet 00:00: 00:[place] 00 :[place] (two) Medical times Branch daily as needed for Anxiety or Agitation. famotidine 2- No [id number] 40mg Take 1 [facility] (PEPCID) 40 01-08 tablet by it y of mg tablet 00:00: 00:00 mouth in [place] 00 :00 the Medical morning. Branch famotidine 2021- No [id number] 40mg Take 1 [facility] (PEPCID) 40 01-08 tablet by it y of mg tablet 00:00: 00:00 mouth [place] 00 :00 the Medical morning. Branch lamoTRIgine 0 Yes [id number] 200mg Take 2 [facility] 100 mg 6-17 tablets by ity of tablet 00:00: mouth [place] 00 daily. Medical Branch prazosin 1 0 Yes [id number] 1mg Take 1 U nivers mg capsule 6-17 capsule by ity of 00:00: mouth at [place] [address] bedtime. Medical Branch lamoTRIgine 0 Yes [id number] 200mg Take 2 [facility] 100 mg 6-17 tablets by ity of tablet 00:00: mouth [place] 00 daily. Medical Branch prazosin 1 0 Yes [id number] 1mg Take 1 U nivers mg capsule 6-17 capsule by ity of 00:00: mouth at [place] [address] bedtime. Medical Branch lamoTRIgine 0 Yes [id number] 200mg Take 2 [facility] 100 mg 6-17 tablets by ity of tablet 00:00: mouth [place] 00 daily. Medical Branch prazosin Yes [id number] 1mg Take 1 U nivers mg capsule 6-17 capsule by ity of 00:00: mouth at [place] [address] bedtime. Medical Branch lamoTRIgine 0 Yes [id number] 200mg Take 2 [facility] 100 mg 6-17 tablets by ity of tablet 00:00: mouth [place] 00 daily. Medical Branch prazosin 1 0 Yes [id number] 1mg Take 1 U nivers mg capsule 6-17 capsule by ity of 00:00: mouth at [place] [address] bedtime. Medical Branch lamoTRIgine 0 Yes [id number] 200mg Take 2 [facility] 100 mg 6-17 tablets by ity of tablet 00:00: mouth [place] 00 daily. Medical Branch prazosin 1 0 Yes [id number] 1mg Take 1 U nivers mg capsule 6-17 capsule by ity of 00:00: mouth at [place] [address] bedtime. Medical Branch lamoTRIgine 0 Yes [id number] 200mg Take 2 [facility] 100 mg 6-17 tablets by ity of tablet 00:00: mouth [place] 00 daily. Medical Branch prazosin 1 Yes [id number] 1mg Take 1 U nivers mg capsule 6-17 capsule by ity of 00:00: mouth at [place] 00 bedtime. Medical Branch lamoTRIgine 2021- No [id number] 200mg Take 2 [facility] 100 mg 6-17 10-10 tablets by ity of tablet 00:00: 00:00 mouth [place] 00 :00 daily. Medical Branch prazosin 1 2021- No [id number] 1mg Take 1 [facility] mg capsule 6-17 10-10 capsule by it y of 00:00: 00:00 mouth at [place] 00 :00 bedtime. Medical Branch hydrOXYzine 2021- No [id number] 25mg Take 1 [facility] 25 mg 6-17 08-19 tablet by ity of tablet 00:00: 00:00 mouth at [place] 00 :00 bedtime as Medical needed for Branch Anxiety or Other (insomnia) . hydrOXYzine 2021- No [id number] 25mg Take 1 [facility] 25 mg 6-17 08-19 tablet by ity of tablet 00:00: 00:00 mouth at [place] 00 :00 bedtime as Medical needed for Branch Anxiety or Other (insomnia) . metoprolol Yes [id number] 50mg Take 1 U nivers succinate 5-06 tablet by ity o f XL 50 mg 24 00:00: mouth [place] hr tablet 00 daily. Medical Branch metoprolol Yes [id number] 50mg Take 1 U nivers succinate 5-06 tablet by ity o f XL 50 mg 24 00:00: mouth [place] hr tablet 00 daily. Medical Branch metoprolol Yes [id number] 50mg Take 1 U nivers succinate 5-06 tablet by ity o f XL 50 mg 24 00:00: mouth [place] hr tablet 00 daily. Medical Branch metoprolol Yes [id number] 50mg Take 1 U nivers succinate 5-06 tablet by ity o f XL 50 mg 24 00:00: mouth [place] hr tablet 00 daily. Medical Branch metoprolol Yes [id number] 50mg Take 1 U nivers succinate 5-06 tablet by ity o f XL 50 mg 24 00:00: mouth [place] hr tablet 00 daily. Medical Branch metoprolol Yes [id number] 50mg Take 1 U nivers succinate 5-06 tablet by ity o f XL 50 mg 24 00:00: mouth [place] hr tablet 00 daily. Medical Branch metoprolol Yes [id number] 50mg Take 1 U nivers succinate 5-06 tablet by ity o f XL 50 mg 24 00:00: mouth [place] hr tablet 00 daily. Medical Branch metoprolol Yes [id number] 50mg Take 1 U nivers succinate 5-06 tablet by ity o f XL 50 mg 24 00:00: mouth [place] hr tablet 00 daily. Medical Branch metoprolol Yes [id number] 50mg Take 1 U nivers succinate 5-06 tablet by ity o f XL 50 mg 24 00:00: mouth [place] hr tablet 00 daily. Medical Branch metoprolol Yes [id number] 50mg Take 1 U nivers succinate 5-06 tablet by ity o f XL 50 mg 24 00:00: mouth [place] hr tablet 00 daily. Medical Branch metoprolol Yes [id number] 50mg Take 1 U nivers succinate 5-06 tablet by ity o f XL 50 mg 24 00:00: mouth [place] hr tablet 00 daily. Medical Branch metoprolol Yes [id number] 50mg Take 1 U nivers succinate 5-06 tablet by ity o f XL 50 mg 24 00:00: mouth [place] hr tablet 00 daily. Medical Branch metoprolol Yes [id number] 50mg Take 1 U nivers succinate 5-06 tablet by ity o f XL 50 mg 24 00:00: mouth [place] hr tablet 00 daily. Medical Branch metoprolol Yes [id number] 50mg Take 1 U nivers succinate 5-06 tablet by ity o f XL 50 mg 24 00:00: mouth [place] hr tablet 00 daily. Medical Branch metoprolol Yes [id number] 50mg Take 1 U nivers succinate 5-06 tablet by ity o f XL 50 mg 24 00:00: mouth [place] hr tablet 00 daily. Medical Branch metoprolol Yes [id number] 50mg Take 1 U nivers succinate 5-06 tablet by ity o f XL 50 mg 24 00:00: mouth [place] hr tablet 00 daily. Medical Branch metoprolol Yes [id number] 50mg Take 1 U nivers succinate 5-06 tablet by ity o f XL 50 mg 24 00:00: mouth [place] hr tablet 00 daily. Medical Branch metoprolol Yes [id number] 50mg Take 1 U nivers succinate 5-06 tablet by ity o f XL 50 mg 24 00:00: mouth [place] hr tablet 00 daily. Medical Branch metoprolol Yes [id number] 50mg Take 1 U nivers succinate 5-06 tablet by ity o f XL 50 mg 24 00:00: mouth [place] hr tablet 00 daily. Medical Branch metoprolol Yes [id number] 50mg Take 1 U nivers succinate 5-06 tablet by ity o f XL 50 mg 24 00:00: mouth [place] hr tablet 00 daily. Medical Branch metoprolol Yes [id number] 50mg Take 1 U nivers succinate 5-06 tablet by ity o f XL 50 mg 24 00:00: mouth [place] hr tablet 00 daily. Medical Branch metoprolol Yes [id number] 50mg Take 1 U nivers succinate 5-06 tablet by ity o f XL 50 mg 24 00:00: mouth [place] hr tablet 00 daily. Medical Branch metoprolol Yes [id number] 50mg Take 1 U nivers succinate 5-06 tablet by ity o f XL 50 mg 24 00:00: mouth [place] hr tablet 00 daily. Medical Branch metoprolol Yes [id number] 50mg Take 1 U nivers succinate 5-06 tablet by ity o f XL 50 mg 24 00:00: mouth [place] hr tablet 00 daily. Medical Branch metoprolol Yes [id number] 50mg Take 1 U nivers succinate 5-06 tablet by ity o f XL 50 mg 24 00:00: mouth [place] hr tablet 00 daily. Medical Branch metoprolol Yes [id number] 50mg Take 1 U nivers succinate 5-06 tablet by ity o f XL 50 mg 24 00:00: mouth [place] hr tablet 00 daily. Medical Branch metoprolol Yes [id number] 50mg Take 1 U nivers succinate 5-06 tablet by ity o f XL 50 mg 24 00:00: mouth [place] hr tablet 00 daily. Medical Branch metoprolol Yes [id number] 50mg Take 1 U nivers succinate 5-06 tablet by ity o f XL 50 mg 24 00:00: mouth [place] hr tablet 00 daily. Medical Branch metoprolol 0 Yes [id number] 50mg Take 1 U nivers succinate 5-06 tablet by ity o f XL 50 mg 24 00:00: mouth [place] hr tablet 00 daily. Medical Branch metoprolol 2021-0 Yes [id number] 50mg Take 1 U nivers succinate 5-06 tablet by ity o f XL 50 mg 24 00:00: mouth [place] hr tablet 00 daily. Medical Branch metoprolol 0 Yes [id number] 50mg Take 1 U nivers succinate 5-06 tablet by ity o f XL 50 mg 24 00:00: mouth [place] hr tablet 00 daily. Medical Branch metoprolol Yes [id number] 50mg Take 1 U nivers succinate 5-06 tablet by ity o f XL 50 mg 24 00:00: mouth [place] hr tablet 00 daily. Medical Branch metoprolol Yes [id number] 50mg Take 1 U nivers succinate 5-06 tablet by ity o f XL 50 mg 24 00:00: mouth [place] hr tablet 00 daily. Medical Branch metoprolol Yes [id number] 50mg Take 1 U nivers succinate 5-06 tablet by ity o f XL 50 mg 24 00:00: mouth [place] hr tablet 00 daily. Medical Branch metoprolol 0 Yes [id number] 50mg Take 1 U nivers succinate 5-06 tablet by ity o f XL 50 mg 24 00:00: mouth [place] hr tablet 00 daily. Medical Branch metoprolol 0 Yes [id number] 50mg Take 1 U nivers succinate 5-06 tablet by ity o f XL 50 mg 24 00:00: mouth [place] hr tablet 00 daily. Medical Branch metoprolol 0 Yes [id number] 50mg Take 1 U nivers succinate 5-06 tablet by ity o f XL 50 mg 24 00:00: mouth [place] hr tablet 00 daily. Medical Branch metoprolol 0 Yes [id number] 50mg Take 1 U nivers succinate 5-06 tablet by ity o f XL 50 mg 24 00:00: mouth [place] hr tablet 00 daily. Medical Branch metoprolol 0 Yes [id number] 50mg Take 1 U nivers succinate 5-06 tablet by ity o f XL 50 mg 24 00:00: mouth [place] hr tablet 00 daily. Medical Branch metoprolol 2022- No [id number] 50mg Take 1 [facility] succinate 10-11- tablet by ity of XL 50 mg 24 00:00: 00:00 [place] hr tablet 00 :00 daily. [facility] Branch metoprolol 2022- No [id number] 50mg Take 1 Univers succinate 10-11- tablet by ity of XL 50 mg 24 00:00: 00:00 mouth [place] hr tablet 00 :00 daily. [facility] Branch metoprolol 2022- No [id number] 50mg Take 1 Univers succinate 10-11- tablet by ity of XL 50 mg 24 00:00: 00:00 mouth [place] hr tablet 00 :00 daily. [facility] Branch Insulin Yes [id number] Use to Uni vers Syringe-Nee 3-02 inject ity of dle U-100 1 00:00: insulin 4X [place] mL 31 gauge 00 daily. Medica l x 5/16 Syrg [id number] [facility] Insulin Yes [id number] Use to Uni vers Syringe-Nee 3-02 inject ity of dle U-100 1 00:00: insulin 4X [place] mL 31 gauge 00 daily. Medica l x 5/16 Syrg DX:[id number] [facility] Insulin Yes [id number] Use to Uni vers Syringe-Nee 3-02 inject ity of dle U-100 1 00:00: insulin 4X [place] mL 31 gauge 00 daily. Medica l x 5/16 Syrg DX:[id number] [facility] Insulin Yes [id number] Use to Uni vers Syringe-Nee 3-02 inject ity of dle U-100 1 00:00: insulin 4X [place] mL 31 gauge 00 daily. Medica l x 5/16 Syrg DX:[id number] [facility] Insulin Yes [id number] Use to Uni vers Syringe-Nee 3-02 inject ity of dle U-100 1 00:00: insulin 4X [place] mL 31 gauge 00 daily. Medica l x 5/16 Syrg DX:[id number] [facility] Insulin Yes [id number] Use to Uni vers Syringe-Nee 3-02 inject ity of dle U-100 1 00:00: insulin 4X [place] mL 31 gauge 00 daily. Medica l x 5/16 Syrg DX:[id number] [facility] Insulin Yes [id number] Use to Uni vers Syringe-Nee 3-02 inject ity of dle U-100 1 00:00: insulin 4X [place] mL 31 gauge 00 daily. Medica l x 5/16 Syrg DX:[id number] [facility] Insulin Yes [id number] Use to Uni vers Syringe-Nee 3-02 inject ity of dle U-100 1 00:00: insulin 4X [place] mL 31 gauge 00 daily. Medica l x 5/16 Syrg DX:[id number] [facility] Insulin Yes [id number] Use to Uni vers Syringe-Nee 3-02 inject ity of dle U-100 1 00:00: insulin 4X [place] mL 31 gauge 00 daily. Medica l x 5/16 Syrg DX:[id number] [facility] Insulin Yes [id number] Use to Uni vers Syringe-Nee 3-02 inject ity of dle U-100 1 00:00: insulin 4X [place] mL 31 gauge 00 daily. Medica l x 5/16 Syrg DX:[id number] [facility] Insulin Yes [id number] Use to Uni vers Syringe-Nee 3-02 inject ity of dle U-100 1 00:00: insulin 4X [place] mL 31 gauge 00 daily. Medica l x 5/16 Syrg DX:[id number] [facility] Insulin Yes [id number] Use to Uni vers Syringe-Nee 3-02 inject ity of dle U-100 1 00:00: insulin 4X [place] mL 31 gauge 00 daily. Medica l x 5/16 Syrg DX:[id number] [facility] Insulin Yes [id number] Use to Uni vers Syringe-Nee 3-02 inject ity of dle U-100 1 00:00: insulin 4X [place] mL 31 gauge 00 daily. Medica l x 5/16 Syrg DX:[id number] [facility] Insulin Yes [id number] Use to Uni vers Syringe-Nee 3-02 inject ity of dle U-100 1 00:00: insulin 4X [place] mL 31 gauge 00 daily. Medica l x 516 Syrg DX:[id number] [facility] Insulin Yes [id number] Use to Uni vers Syringe-Nee 3-02 inject ity of dle U-100 1 00:00: insulin 4X [place] mL 31 gauge 00 daily. Medica l x 516 Syrg DX:[id number] [facility] Insulin Yes [id number] Use to Uni vers Syringe-Nee 3-02 inject ity of dle U-100 1 00:00: insulin 4X [place] mL 31 gauge 00 daily. Medica l x 516 Syrg DX:[id number] [facility] Insulin Yes [id number] Use to Uni vers Syringe-Nee 3-02 inject ity of dle U-100 1 00:00: insulin 4X [place] mL 31 gauge 00 daily. Medica l x 516 Syrg DX:[id number] [facility] Insulin Yes [id number] Use to Uni vers Syringe-Nee 3-02 inject ity of dle U-100 1 00:00: insulin 4X [place] mL 31 gauge 00 daily. Medica l x 516 Syrg DX:[id number] [facility] Insulin Yes [id number] Use to Uni vers Syringe-Nee 3-02 inject ity of dle U-100 1 00:00: insulin 4X [place] mL 31 gauge 00 daily. Medica l x 516 Syrg DX:[id number] [facility] Insulin Yes [id number] Use to Uni vers Syringe-Nee 3-02 inject ity of dle U-100 1 00:00: insulin 4X [place] mL 31 gauge 00 daily. Medica l x 5/16 Syrg DX:[id number] [facility] Insulin 2021- No [id number] Use to Un kendra Syringe-Nee 3-02 11-23 inject ity o f dle U-100 1 00:00: 00:00 insulin 4X [place] mL 31 gauge 00 :00 daily. Medica l x 16 Syrg DX:[id number] [facility] Insulin 2021- No [id number] Use to Un kendra Syringe-Nee 08-07 inject ity o f dle U-100 1 00:00: 00:00 insulin 4X [place] mL 31 gauge 00 :00 daily. Medica l x 516 Syrg DX:[id number] [facility] insulin Yes [id number] 160 to Uni vers aspart 2-09 200, 1 u, ity of U-100 00:00: 201 to [place] (NOVOLOG 00 240, 2 u. Medica l FLEXPEN BG 241 to Branch U-100 280, 3 INSULIN) unit. BG 100 unit/mL 281 to (3 mL) 300, 4 injection units. BG > 300, 5 units, recheck in 3 hours and cover with s/s insulin Yes [id number] inject 20 [facility] glargine 2-09 Units ity of (LANTUS 00:00: under the [place] U-100 00 skin twice Medical INSULIN) a day. Branch 100 unit/mL injection insulin Yes [id number] 160 to Uni vers aspart 2-09 200, 1 u, ity of U-100 00:00: 201 to [place] (NOVOLOG 00 240, 2 u. Medica l FLEXPEN BG 241 to Branch U-100 280, 3 INSULIN) unit. BG 100 unit/mL 281 to (3 mL) 300, 4 injection units. BG > 300, 5 units, recheck in 3 hours and cover with s/s insulin Yes [id number] inject 20 [facility] glargine 2-09 Units ity of (LANTUS 00:00: under the [place] U-100 00 skin twice Medical INSULIN) a day. Branch 100 unit/mL injection insulin Yes [id number] 160 to Uni vers aspart 2-09 200, 1 u, ity of U-100 00:00: 201 to [place] (NOVOLOG 00 240, 2 u. Medica l FLEXPEN BG 241 to Branch U-100 280, 3 INSULIN) unit. BG 100 unit/mL 281 to (3 mL) 300, 4 injection units. BG > 300, 5 units, recheck in 3 hours and cover with s/s insulin Yes [id number] inject 20 [facility] glargine 2-09 Units ity of (LANTUS 00:00: under the [place] U-100 00 skin twice Medical INSULIN) a day. Branch 100 unit/mL injection insulin Yes [id number] 160 to Uni vers aspart 2-09 200, 1 u, ity of U-100 00:00: 201 to [place] (NOVOLOG 00 240, 2 u. Medica l FLEXPEN BG 241 to Branch U-100 280, 3 INSULIN) unit. BG 100 unit/mL 281 to (3 mL) 300, 4 injection units. BG > 300, 5 units, recheck in 3 hours and cover with s/s insulin Yes [id number] inject 20 [facility] glargine 2-09 Units ity of (LANTUS 00:00: under the [place] U-100 00 skin twice Medical INSULIN) a day. Branch 100 unit/mL injection insulin Yes [id number] 160 to Uni vers aspart 2-09 200, 1 u, ity of U-100 00:00: 201 to [place] (NOVOLOG 00 240, 2 u. Medica l FLEXPEN BG 241 to Branch U-100 280, 3 INSULIN) unit. BG 100 unit/mL 281 to (3 mL) 300, 4 injection units. BG > 300, 5 units, recheck in 3 hours and cover with s/s insulin Yes [id number] inject 20 [facility] glargine 2-09 Units ity of (LANTUS 00:00: under the [place] U-100 00 skin twice Medical INSULIN) a day. Branch 100 unit/mL injection insulin Yes [id number] 160 to Uni vers aspart 2-09 200, 1 u, ity of U-100 00:00: 201 to [place] (NOVOLOG 00 240, 2 u. Medica l FLEXPEN BG 241 to Branch U-100 280, 3 INSULIN) unit. BG 100 unit/mL 281 to (3 mL) 300, 4 injection units. BG > 300, 5 units, recheck in 3 hours and cover with s/s insulin Yes [id number] inject 20 [facility] glargine 2-09 Units ity of (LANTUS 00:00: under the [place] U-100 00 skin twice Medical INSULIN) a day. Branch 100 unit/mL injection insulin 2021-0 Yes [id number] 160 to Uni vers aspart 2-09 200, 1 u, ity of U-100 00:00: 201 to [place] (NOVOLOG 00 240, 2 u. Medica l FLEXPEN BG 241 to Branch U-100 280, 3 INSULIN) unit. BG 100 unit/mL 281 to (3 mL) 300, 4 injection units. BG > 300, 5 units, recheck in 3 hours and cover with s/s insulin 2021-0 Yes [id number] inject 20 [facility] glargine 2-09 Units ity of (LANTUS 00:00: under the [place] U-100 00 skin twice Medical INSULIN) a day. Branch 100 unit/mL injection insulin 0 Yes [id number] 160 to Uni vers aspart 2-09 200, 1 u, ity of U-100 00:00: 201 to [place] (NOVOLOG 00 240, 2 u. Medica l FLEXPEN BG 241 to Branch U-100 280, 3 INSULIN) unit. BG 100 unit/mL 281 to (3 mL) 300, 4 injection units. BG > 300, 5 units, recheck in 3 hours and cover with s/s insulin 2021-0 Yes [id number] inject 20 [facility] glargine 2-09 Units ity of (LANTUS 00:00: under the [place] U-100 00 skin twice Medical INSULIN) a day. Branch 100 unit/mL injection insulin 2021-0 Yes [id number] 160 to Uni vers aspart 2-09 200, 1 u, ity of U-100 00:00: 201 to [place] (NOVOLOG 00 240, 2 u. Medica l FLEXPEN BG 241 to Branch U-100 280, 3 INSULIN) unit. BG 100 unit/mL 281 to (3 mL) 300, 4 injection units. BG > 300, 5 units, recheck in 3 hours and cover with s/s insulin 2021-0 Yes [id number] inject 20 [facility] glargine 2-09 Units ity of (LANTUS 00:00: under the [place] U-100 00 skin twice Medical INSULIN) a day. Branch 100 unit/mL injection insulin 0 Yes [id number] 160 to Uni vers aspart 2-09 200, 1 u, ity of U-100 00:00: 201 to [place] (NOVOLOG 00 240, 2 u. Medica l FLEXPEN BG 241 to Branch U-100 280, 3 INSULIN) unit. BG 100 unit/mL 281 to (3 mL) 300, 4 injection units. BG > 300, 5 units, recheck in 3 hours and cover with s/s insulin 2021-0 Yes [id number] inject 20 [facility] glargine 2-09 Units ity of (LANTUS 00:00: under the [place] U-100 00 skin twice Medical INSULIN) a day. Branch 100 unit/mL injection insulin Yes [id number] 160 to Uni vers aspart 2-09 200, 1 u, ity of U-100 00:00: 201 to [place] (NOVOLOG 00 240, 2 u. Medica l FLEXPEN BG 241 to Branch U-100 280, 3 INSULIN) unit. BG 100 unit/mL 281 to (3 mL) 300, 4 injection units. BG > 300, 5 units, recheck in 3 hours and cover with s/s insulin Yes [id number] inject 20 [facility] glargine 2-09 Units ity of (LANTUS 00:00: under the [place] U-100 00 skin twice Medical INSULIN) a day. Branch 100 unit/mL injection insulin Yes [id number] 160 to Uni vers aspart 2-09 200, 1 u, ity of U-100 00:00: 201 to [place] (NOVOLOG 00 240, 2 u. Medica l FLEXPEN BG 241 to Branch U-100 280, 3 INSULIN) unit. BG 100 unit/mL 281 to (3 mL) 300, 4 injection units. BG > 300, 5 units, recheck in 3 hours and cover with s/s insulin 2021-0 Yes [id number] inject 20 [facility] glargine 2-09 Units ity of (LANTUS 00:00: under the [place] U-100 00 skin twice Medical INSULIN) a day. Branch 100 unit/mL injection insulin 0 Yes [id number] 160 to Uni vers aspart 2-09 200, 1 u, ity of U-100 00:00: 201 to [place] (NOVOLOG 00 240, 2 u. Medica l FLEXPEN BG 241 to Branch U-100 280, 3 INSULIN) unit. BG 100 unit/mL 281 to (3 mL) 300, 4 injection units. BG > 300, 5 units, recheck in 3 hours and cover with s/s insulin 202-0 Yes [id number] 160 to [facility] vers aspart 2-09 200, 1 u, ity of U-100 00:00: 201 to [place] (NOVOLOG 00 240, 2 u. Medica l FLEXPEN BG 241 to Branch U-100 280, 3 INSULIN) unit. BG 100 unit/mL 281 to (3 mL) 300, 4 injection units. BG > 300, 5 units, recheck in 3 hours and cover with s/s insulin 2021-0 Yes [id number] 160 to [facility] vers aspart 2-09 200, 1 u, ity of U-100 00:00: 201 to [place] (NOVOLOG 00 240, 2 u. Medica l FLEXPEN BG 241 to Branch U-100 280, 3 INSULIN) unit. BG 100 unit/mL 281 to (3 mL) 300, 4 injection units. BG > 300, 5 units, recheck in 3 hours and cover with s/s insulin 2021-0 Yes [id number] 160 to [facility] vers aspart 2-09 200, 1 u, ity of U-100 00:00: 201 to [place] (NOVOLOG 00 240, 2 u. Medica l FLEXPEN BG 241 to Branch U-100 280, 3 INSULIN) unit. BG 100 unit/mL 281 to (3 mL) 300, 4 injection units. BG > 300, 5 units, recheck in 3 hours and cover with s/s insulin 2021-0 Yes [id number] 160 to [facility] vers aspart 2-09 200, 1 u, ity of U-100 00:00: 201 to [place] (NOVOLOG 00 240, 2 u. Medica l FLEXPEN BG 241 to Branch U-100 280, 3 INSULIN) unit. BG 100 unit/mL 281 to (3 mL) 300, 4 injection units. BG > 300, 5 units, recheck in 3 hours and cover with s/s insulin 202-0 Yes [id number] 160 to [facility] vers aspart 2-09 200, 1 u, ity of U-100 00:00: 201 to [place] (NOVOLOG 00 240, 2 u. Medica l FLEXPEN BG 241 to Branch U-100 280, 3 INSULIN) unit. BG 100 unit/mL 281 to (3 mL) 300, 4 injection units. BG > 300, 5 units, recheck in 3 hours and cover with s/s insulin 2021-0 Yes [id number] 160 to [facility] vers aspart 2-09 200, 1 u, ity of U-100 00:00: 201 to [place] (NOVOLOG 00 240, 2 u. Medica l FLEXPEN BG 241 to Branch U-100 280, 3 INSULIN) unit. BG 100 unit/mL 281 to (3 mL) 300, 4 injection units. BG > 300, 5 units, recheck in 3 hours and cover with s/s insulin 2021-0 Yes [id number] 160 to [facility] vers aspart 2-09 200, 1 u, ity of U-100 00:00: 201 to [place] (NOVOLOG 00 240, 2 u. Medica l FLEXPEN BG 241 to Branch U-100 280, 3 INSULIN) unit. BG 100 unit/mL 281 to (3 mL) 300, 4 injection units. BG > 300, 5 units, recheck in 3 hours and cover with s/s insulin 2021-0 Yes [id number] 160 to [facility] vers aspart 2-09 200, 1 u, ity of U-100 00:00: 201 to [place] (NOVOLOG 00 240, 2 u. Medica l FLEXPEN BG 241 to Branch U-100 280, 3 INSULIN) unit. BG 100 unit/mL 281 to (3 mL) 300, 4 injection units. BG > 300, 5 units, recheck in 3 hours and cover with s/s insulin 2021-0 Yes [id number] 160 to [facility] vers aspart 2-09 200, 1 u, ity of U-100 00:00: 201 to [place] (NOVOLOG 00 240, 2 u. Medica l FLEXPEN BG 241 to Branch U-100 280, 3 INSULIN) unit. BG 100 unit/mL 281 to (3 mL) 300, 4 injection units. BG > 300, 5 units, recheck in 3 hours and cover with s/s insulin 2021-0 Yes [id number] 160 to [facility] vers aspart 2-09 200, 1 u, ity of U-100 00:00: 201 to [place] (NOVOLOG 00 240, 2 u. Medica l FLEXPEN BG 241 to Branch U-100 280, 3 INSULIN) unit. BG 100 unit/mL 281 to (3 mL) 300, 4 injection units. BG > 300, 5 units, recheck in 3 hours and cover with s/s insulin 202-0 Yes [id number] 160 to [facility] vers aspart 2-09 200, 1 u, ity of U-100 00:00: 201 to [place] (NOVOLOG 00 240, 2 u. Medica l FLEXPEN BG 241 to Branch U-100 280, 3 INSULIN) unit. BG 100 unit/mL 281 to (3 mL) 300, 4 injection units. BG > 300, 5 units, recheck in 3 hours and cover with s/s insulin 2021-0 Yes [id number] 160 to [facility] vers aspart 2-09 200, 1 u, ity of U-100 00:00: 201 to [place] (NOVOLOG 00 240, 2 u. Medica l FLEXPEN BG 241 to Branch U-100 280, 3 INSULIN) unit. BG 100 unit/mL 281 to (3 mL) 300, 4 injection units. BG > 300, 5 units, recheck in 3 hours and cover with s/s insulin 2021-0 Yes [id number] 160 to [facility] vers aspart 2-09 200, 1 u, ity of U-100 00:00: 201 to [place] (NOVOLOG 00 240, 2 u. Medica l FLEXPEN BG 241 to Branch U-100 280, 3 INSULIN) unit. BG 100 unit/mL 281 to (3 mL) 300, 4 injection units. BG > 300, 5 units, recheck in 3 hours and cover with s/s insulin 2021-0 Yes [id number] 160 to [facility] vers aspart 2-09 200, 1 u, ity of U-100 00:00: 201 to [place] (NOVOLOG 00 240, 2 u. Medica l FLEXPEN BG 241 to Branch U-100 280, 3 INSULIN) unit. BG 100 unit/mL 281 to (3 mL) 300, 4 injection units. BG > 300, 5 units, recheck in 3 hours and cover with s/s insulin 2021-0 Yes [id number] 160 to [facility] vers aspart 2-09 200, 1 u, ity of U-100 00:00: 201 to [place] (NOVOLOG 00 240, 2 u. Medica l FLEXPEN BG 241 to Branch U-100 280, 3 INSULIN) unit. BG 100 unit/mL 281 to (3 mL) 300, 4 injection units. BG > 300, 5 units, recheck in 3 hours and cover with s/s insulin 2021-0 Yes [id number] 160 to [facility] vers aspart 2-09 200, 1 u, ity of U-100 00:00: 201 to [place] (NOVOLOG 00 240, 2 u. Medica l FLEXPEN BG 241 to Branch U-100 280, 3 INSULIN) unit. BG 100 unit/mL 281 to (3 mL) 300, 4 injection units. BG > 300, 5 units, recheck in 3 hours and cover with s/s insulin 2021-0 Yes [id number] 160 to [facility] vers aspart 2-09 200, 1 u, ity of U-100 00:00: 201 to [place] (NOVOLOG 00 240, 2 u. Medica l FLEXPEN BG 241 to Branch U-100 280, 3 INSULIN) unit. BG 100 unit/mL 281 to (3 mL) 300, 4 injection units. BG > 300, 5 units, recheck in 3 hours and cover with s/s insulin 2021-0 Yes [id number] 160 to [facility] vers aspart 2-09 200, 1 u, ity of U-100 00:00: 201 to [place] (NOVOLOG 00 240, 2 u. Medica l FLEXPEN BG 241 to Branch U-100 280, 3 INSULIN) unit. BG 100 unit/mL 281 to (3 mL) 300, 4 injection units. BG > 300, 5 units, recheck in 3 hours and cover with s/s insulin 2021-0 Yes [id number] 160 to [facility] vers aspart 2-09 200, 1 u, ity of U-100 00:00: 201 to [place] (NOVOLOG 00 240, 2 u. Medica l FLEXPEN BG 241 to Branch U-100 280, 3 INSULIN) unit. BG 100 unit/mL 281 to (3 mL) 300, 4 injection units. BG > 300, 5 units, recheck in 3 hours and cover with s/s insulin 2021-0 Yes [id number] 160 to [facility] vers aspart 2-09 200, 1 u, ity of U-100 00:00: 201 to [place] (NOVOLOG 00 240, 2 u. Medica l FLEXPEN BG 241 to Branch U-100 280, 3 INSULIN) unit. BG 100 unit/mL 281 to (3 mL) 300, 4 injection units. BG > 300, 5 units, recheck in 3 hours and cover with s/s insulin 2021-0 Yes [id number] 160 to [facility] vers aspart 2-09 200, 1 u, ity of U-100 00:00: 201 to [place] (NOVOLOG 00 240, 2 u. Medica l FLEXPEN BG 241 to Branch U-100 280, 3 INSULIN) unit. BG 100 unit/mL 281 to (3 mL) 300, 4 injection units. BG > 300, 5 units, recheck in 3 hours and cover with s/s insulin 2021-0 Yes [id number] 160 to [facility] vers aspart 2-09 200, 1 u, ity of U-100 00:00: 201 to [place] (NOVOLOG 00 240, 2 u. Medica l FLEXPEN BG 241 to Branch U-100 280, 3 INSULIN) unit. BG 100 unit/mL 281 to (3 mL) 300, 4 injection units. BG > 300, 5 units, recheck in 3 hours and cover with s/s insulin 2021-0 Yes [id number] 160 to [facility] vers aspart 2-09 200, 1 u, ity of U-100 00:00: 201 to [place] (NOVOLOG 00 240, 2 u. Medica l FLEXPEN BG 241 to Branch U-100 280, 3 INSULIN) unit. BG 100 unit/mL 281 to (3 mL) 300, 4 injection units. BG > 300, 5 units, recheck in 3 hours and cover with s/s insulin 2021-0 Yes [id number] 160 to [facility] vers aspart 2-09 200, 1 u, ity of U-100 00:00: 201 to [place] (NOVOLOG 00 240, 2 u. Medica l FLEXPEN BG 241 to Branch U-100 280, 3 INSULIN) unit. BG 100 unit/mL 281 to (3 mL) 300, 4 injection units. BG > 300, 5 units, recheck in 3 hours and cover with s/s insulin 2021-0 Yes [id number] 160 to [facility] vers aspart 2-09 200, 1 u, ity of U-100 00:00: 201 to [place] (NOVOLOG 00 240, 2 u. Medica l FLEXPEN BG 241 to Branch U-100 280, 3 INSULIN) unit. BG 100 unit/mL 281 to (3 mL) 300, 4 injection units. BG > 300, 5 units, recheck in 3 hours and cover with s/s insulin 2021-0 Yes [id number] 160 to [facility] vers aspart 2-09 200, 1 u, ity of U-100 00:00: 201 to [place] (NOVOLOG 00 240, 2 u. Medica l FLEXPEN BG 241 to Branch U-100 280, 3 INSULIN) unit. BG 100 unit/mL 281 to (3 mL) 300, 4 injection units. BG > 300, 5 units, recheck in 3 hours and cover with s/s insulin 2021-0 Yes [id number] 160 to [facility] vers aspart 2-09 200, 1 u, ity of U-100 00:00: 201 to [place] (NOVOLOG 00 240, 2 u. Medica l FLEXPEN BG 241 to Branch U-100 280, 3 INSULIN) unit. BG 100 unit/mL 281 to (3 mL) 300, 4 injection units. BG > 300, 5 units, recheck in 3 hours and cover with s/s insulin 2021-0 Yes [id number] 160 to [facility] vers aspart 2-09 200, 1 u, ity of U-100 00:00: 201 to [place] (NOVOLOG 00 240, 2 u. Medica l FLEXPEN BG 241 to Branch U-100 280, 3 INSULIN) unit. BG 100 unit/mL 281 to (3 mL) 300, 4 injection units. BG > 300, 5 units, recheck in 3 hours and cover with s/s insulin 2021-0 Yes [id number] 160 to [facility] vers aspart 2-09 200, 1 u, ity of U-100 00:00: 201 to [place] (NOVOLOG 00 240, 2 u. Medica l FLEXPEN BG 241 to Branch U-100 280, 3 INSULIN) unit. BG 100 unit/mL 281 to (3 mL) 300, 4 injection units. BG > 300, 5 units, recheck in 3 hours and cover with s/s insulin 2021-0 Yes [id number] 160 to [facility] vers aspart 2-09 200, 1 u, ity of U-100 00:00: 201 to [place] (NOVOLOG 00 240, 2 u. Medica l FLEXPEN BG 241 to Branch U-100 280, 3 INSULIN) unit. BG 100 unit/mL 281 to (3 mL) 300, 4 injection units. BG > 300, 5 units, recheck in 3 hours and cover with s/s insulin 2021-0 Yes [id number] 160 to [facility] vers aspart 2-09 200, 1 u, ity of U-100 00:00: 201 to [place] (NOVOLOG 00 240, 2 u. Medica l FLEXPEN BG 241 to Branch U-100 280, 3 INSULIN) unit. BG 100 unit/mL 281 to (3 mL) 300, 4 injection units. BG > 300, 5 units, recheck in 3 hours and cover with s/s insulin 2022-0 Yes [id number] 160 to [facility] vers aspart 2-09 200, 1 u, ity of U-100 00:00: 201 to [place] (NOVOLOG 00 240, 2 u. Medica l FLEXPEN BG 241 to Branch U-100 280, 3 INSULIN) unit. BG 100 unit/mL 281 to (3 mL) 300, 4 injection units. BG > 300, 5 units, recheck in 3 hours and cover with s/s insulin 2021-0 Yes [id number] 160 to [facility] vers aspart 2-09 200, 1 u, ity of U-100 00:00: 201 to [place] (NOVOLOG 00 240, 2 u. Medica l FLEXPEN BG 241 to Branch U-100 280, 3 INSULIN) unit. BG 100 unit/mL 281 to (3 mL) 300, 4 injection units. BG > 300, 5 units, recheck in 3 hours and cover with s/s insulin 2021-0 Yes [id number] 160 to [facility] vers aspart 2-09 200, 1 u, ity of U-100 00:00: 201 to [place] (NOVOLOG 00 240, 2 u. Medica l FLEXPEN BG 241 to Branch U-100 280, 3 INSULIN) unit. BG 100 unit/mL 281 to (3 mL) 300, 4 injection units. BG > 300, 5 units, recheck in 3 hours and cover with s/s insulin 2022-0 Yes [id number] 160 to [facility] vers aspart 2-09 200, 1 u, ity of U-100 00:00: 201 to [place] (NOVOLOG 00 240, 2 u. Medica l FLEXPEN BG 241 to Branch U-100 280, 3 INSULIN) unit. BG 100 unit/mL 281 to (3 mL) 300, 4 injection units. BG > 300, 5 units, recheck in 3 hours and cover with s/s insulin 2-0 Yes [id number] 160 to [facility] vers aspart 2-09 200, 1 u, ity of U-100 00:00: 201 to [place] (NOVOLOG 00 240, 2 u. Medica l FLEXPEN BG 241 to Branch U-100 280, 3 INSULIN) unit. BG 100 unit/mL 281 to (3 mL) 300, 4 injection units. BG > 300, 5 units, recheck in 3 hours and cover with s/s insulin 2022-0 Yes [id number] 160 to [facility] vers aspart 2-09 200, 1 u, ity of U-100 00:00: 201 to [place] (NOVOLOG 00 240, 2 u. Medica l FLEXPEN BG 241 to Branch U-100 280, 3 INSULIN) unit. BG 100 unit/mL 281 to (3 mL) 300, 4 injection units. BG > 300, 5 units, recheck in 3 hours and cover with s/s insulin 2021-0 Yes [id number] 160 to [facility] vers aspart 2-09 200, 1 u, ity of U-100 00:00: 201 to [place] (NOVOLOG 00 240, 2 u. Medica l FLEXPEN BG 241 to Branch U-100 280, 3 INSULIN) unit. BG 100 unit/mL 281 to (3 mL) 300, 4 injection units. BG > 300, 5 units, recheck in 3 hours and cover with s/s insulin 2021-0 Yes [id number] 160 to [facility] vers aspart 2-09 200, 1 u, ity of U-100 00:00: 201 to [place] (NOVOLOG 00 240, 2 u. Medica l FLEXPEN BG 241 to Branch U-100 280, 3 INSULIN) unit. BG 100 unit/mL 281 to (3 mL) 300, 4 injection units. BG > 300, 5 units, recheck in 3 hours and cover with s/s insulin 2022-0 Yes [id number] 160 to [facility] vers aspart 2-09 200, 1 u, ity of U-100 00:00: 201 to [place] (NOVOLOG 00 240, 2 u. Medica l FLEXPEN BG 241 to Branch U-100 280, 3 INSULIN) unit. BG 100 unit/mL 281 to (3 mL) 300, 4 injection units. BG > 300, 5 units, recheck in 3 hours and cover with s/s insulin 2022-0 Yes [id number] 160 to [facility] vers aspart 2-09 200, 1 u, ity of U-100 00:00: 201 to [place] (NOVOLOG 00 240, 2 u. Medica l FLEXPEN BG 241 to Branch U-100 280, 3 INSULIN) unit. BG 100 unit/mL 281 to (3 mL) 300, 4 injection units. BG > 300, 5 units, recheck in 3 hours and cover with s/s insulin 2022-0 Yes [id number] 160 to [facility] vers aspart 2-09 200, 1 u, ity of U-100 00:00: 201 to [place] (NOVOLOG 00 240, 2 u. Medica l FLEXPEN BG 241 to Branch U-100 280, 3 INSULIN) unit. BG 100 unit/mL 281 to (3 mL) 300, 4 injection units. BG > 300, 5 units, recheck in 3 hours and cover with s/s insulin 2022-0 Yes [id number] 160 to [facility] vers aspart 2-09 200, 1 u, ity of U-100 00:00: 201 to [place] (NOVOLOG 00 240, 2 u. Medica l FLEXPEN BG 241 to Branch U-100 280, 3 INSULIN) unit. BG 100 unit/mL 281 to (3 mL) 300, 4 injection units. BG > 300, 5 units, recheck in 3 hours and cover with s/s insulin 202-0 Yes [id number] 160 to [facility] vers aspart 2-09 200, 1 u, ity of U-100 00:00: 201 to [place] (NOVOLOG 00 240, 2 u. Medica l FLEXPEN BG 241 to Branch U-100 280, 3 INSULIN) unit. BG 100 unit/mL 281 to (3 mL) 300, 4 injection units. BG > 300, 5 units, recheck in 3 hours and cover with s/s insulin 2022-0 Yes [id number] 160 to [facility] vers aspart 2-09 200, 1 u, ity of U-100 00:00: 201 to [place] (NOVOLOG 00 240, 2 u. Medica l FLEXPEN BG 241 to Branch U-100 280, 3 INSULIN) unit. BG 100 unit/mL 281 to (3 mL) 300, 4 injection units. BG > 300, 5 units, recheck in 3 hours and cover with s/s insulin 2022-0 Yes [id number] 160 to [facility] vers aspart 2-09 200, 1 u, ity of U-100 00:00: 201 to [place] (NOVOLOG 00 240, 2 u. Medica l FLEXPEN BG 241 to Branch U-100 280, 3 INSULIN) unit. BG 100 unit/mL 281 to (3 mL) 300, 4 injection units. BG > 300, 5 units, recheck in 3 hours and cover with s/s insulin Yes [id number] 160 to [facility] vers aspart 07-17 200, 1 u, ity of U-100 00:00: 201 to [place] (NOVOLOG 00 240, 2 u. Medica l FLEXPEN BG 241 to Branch U-100 280, 3 INSULIN) unit. BG 100 unit/mL 281 to (3 mL) 300, 4 injection units. BG > 300, 5 units, recheck in 3 hours and cover with s/s insulin 2022- No [id number] 160 to Un kendra aspart 07-17 200, 1 u, ity of U-100 00:00: 00:00 201 to [place] (NOVOLOG 00 :00 240, 2 u. Medica l FLEXPEN BG 241 to Branch U-100 280, 3 INSULIN) unit. BG 100 unit/mL 281 to (3 mL) 300, 4 injection units. BG > 300, 5 units, recheck in 3 hours and cover with s/s insulin 2022- No [id number] 160 to Un kendra aspart 07-17 200, 1 u, ity of U-100 00:00: 00:00 201 to [place] (NOVOLOG 00 :00 240, 2 u. Medica l FLEXPEN BG 241 to Branch U-100 280, 3 INSULIN) unit. BG 100 unit/mL 281 to (3 mL) 300, 4 injection units. BG > 300, 5 units, recheck in 3 hours and cover with s/s insulin 2021- No [id number] inject 20 [facility] glargine 07-17 10-25 Units ity of ([place] 00:00: [place] 00 :00 skin twice Medical INSULIN) a day. Branch 100 unit/mL injection insulin 2021- No [id number] inject 20 [facility] glargine 07-17 10-25 Units ity of ([place] 00:00: 00:[place] 00 :00 skin twice Medical INSULIN) a day. Branch 100 unit/mL injection insulin 0 2021- No [id number] inject 20 [facility] glargine 2-09 10-25 Units ity of ([place] 00:00: 00:[place] U-[place] 00 :00 skin twice Medical INSULIN) a day. Branch 100 unit/mL injection lipase-prot Yes [id number] 1{capsu Take 1 [facility] ease-amylas 2-03 le} capsule by it y of e (CREON) 00:00: mouth 3 [place] 36,000-114, 00 (three) Medic al 000- times Branch 180,000 daily with unit CpDR meals. lipase-prot Yes [id number] 1{capsu Take 1 [facility] ease-amylas 2-03 le} capsule by it y of e (CREON) 00:00: mouth 3 [place] 36,000-114, 00 (three) Medic al 000- times Branch 180,000 daily with unit CpDR meals. lipase-prot Yes [id number] 1{capsu Take 1 [facility] ease-amylas 2-03 le} capsule by it y of e (CREON) 00:00: mouth 3 [place] 36,000-114, 00 (three) Medic al 000- times Branch 180,000 daily with unit CpDR meals. lipase-prot Yes [id number] 1{capsu Take 1 [facility] ease-amylas 2-03 le} capsule by it y of e (CREON) 00:00: mouth 3 [place] 36,000-114, 00 (three) Medic al 000- times Branch 180,000 daily with unit CpDR meals. lipase-prot Yes [id number] 1{capsu Take 1 [facility] ease-amylas 2-03 le} capsule by it y of e (CREON) 00:00: mouth 3 [place] 36,000-114, 00 (three) Medic al 000- times Branch 180,000 daily with unit CpDR meals. lipase-prot Yes [id number] 1{capsu Take 1 [facility] ease-amylas 2-03 le} capsule by it y of e (CREON) 00:00: mouth 3 [place] 36,000-114, 00 (three) Medic al 000- times Branch 180,000 daily with unit CpDR meals. lipase-prot Yes [id number] 1{capsu Take 1 [facility] ease-amylas 2-03 le} capsule by it y of e (CREON) 00:00: mouth 3 [place] 36,000-114, 00 (three) Medic al 000- times Branch 180,000 daily with unit CpDR meals. lipase-prot Yes [id number] 1{capsu Take 1 [facility] ease-amylas 2-03 le} capsule by it y of e (CREON) 00:00: mouth 3 [place] 36,000-114, 00 (three) Medic al 000- times Branch 180,000 daily with unit CpDR meals. lipase-prot Yes [id number] 1{capsu Take 1 [facility] ease-amylas 2-03 le} capsule by it y of e (CREON) 00:00: mouth 3 [place] 36,000-114, 00 (three) Medic al 000- times Branch 180,000 daily with unit CpDR meals. lipase-prot Yes [id number] 1{capsu Take 1 [facility] ease-amylas 2-03 le} capsule by it y of e (CREON) 00:00: mouth 3 [place] 36,000-114, 00 (three) Medic al 000- times Branch 180,000 daily with unit CpDR meals. lipase-prot Yes [id number] 1{capsu Take 1 [facility] ease-amylas 2-03 le} capsule by it y of e (CREON) 00:00: mouth 3 [place] 36,000-114, 00 (three) Medic al 000- times Branch 180,000 daily with unit CpDR meals. lipase-prot Yes [id number] 1{capsu Take 1 [facility] ease-amylas 2-03 le} capsule by it y of e (CREON) 00:00: mouth 3 [place] 36,000-114, 00 (three) Medic al 000- times Branch 180,000 daily with unit CpDR meals. lipase-prot Yes [id number] 1{capsu Take 1 [facility] ease-amylas 2-03 le} capsule by it y of e (CREON) 00:00: mouth 3 [place] 36,000-114, 00 (three) Medic al 000- times Branch 180,000 daily with unit CpDR meals. lipase-prot Yes [id number] 1{capsu Take 1 [facility] ease-amylas 2-03 le} capsule by it y of e (CREON) 00:00: mouth 3 [place] 36,000-114, 00 (three) Medic al 000- times Branch 180,000 daily with unit CpDR meals. lipase-prot Yes [id number] 1{capsu Take 1 [facility] ease-amylas 2-03 le} capsule by it y of e (CREON) 00:00: mouth 3 [place] 36,000-114, 00 (three) Medic al 000- times Branch 180,000 daily with unit CpDR meals. lipase-prot Yes [id number] 1{capsu Take 1 [facility] ease-amylas 2-03 le} capsule by it y of e (CREON) 00:00: mouth 3 [place] 36,000-114, 00 (three) Medic al 000- times Branch 180,000 daily with unit CpDR meals. lipase-prot Yes [id number] 1{capsu Take 1 [facility] ease-amylas 2-03 le} capsule by it y of e (CREON) 00:00: mouth 3 [place] 36,000-114, 00 (three) Medic al 000- times Branch 180,000 daily with unit CpDR meals. lipase-prot Yes [id number] 1{capsu Take 1 [facility] ease-amylas 2-03 le} capsule by it y of e (CREON) 00:00: mouth 3 [place] 36,000-114, 00 (three) Medic al 000- times Branch 180,000 daily with unit CpDR meals. lipase-prot Yes [id number] 1{capsu Take 1 [facility] ease-amylas 2-03 le} capsule by it y of e (CREON) 00:00: mouth 3 [place] 36,000-114, 00 (three) Medic al 000- times Branch 180,000 daily with unit CpDR meals. lipase-prot Yes [id number] 1{capsu Take 1 [facility] ease-amylas 2-03 le} capsule by it y of e (CREON) 00:00: mouth 3 [place] 36,000-114, 00 (three) Medic al 000- times Branch 180,000 daily with unit CpDR meals. lipase-prot Yes [id number] 1{capsu Take 1 [facility] ease-amylas 2-03 le} capsule by it y of e (CREON) 00:00: mouth 3 [place] 36,000-114, 00 (three) Medic al 000- times Branch 180,000 daily with unit CpDR meals. lipase-prot Yes [id number] 1{capsu Take 1 [facility] ease-amylas 2-03 le} capsule by it y of e (CREON) 00:00: mouth 3 [place] 36,000-114, 00 (three) Medic al 000- times Branch 180,000 daily with unit CpDR meals. lipase-prot Yes [id number] 1{capsu Take 1 [facility] ease-amylas 2-03 le} capsule by it y of e (CREON) 00:00: mouth 3 [place] 36,000-114, 00 (three) Medic al 000- times Branch 180,000 daily with unit CpDR meals. lipase-prot Yes [id number] 1{capsu Take 1 [facility] ease-amylas 2-03 le} capsule by it y of e (CREON) 00:00: mouth 3 [place] 36,000-114, 00 (three) Medic al 000- times Branch 180,000 daily with unit CpDR meals. lipase-prot Yes [id number] 1{capsu Take 1 [facility] ease-amylas 2-03 le} capsule by it y of e (CREON) 00:00: mouth 3 [place] 36,000-114, 00 (three) Medic al 000- times Branch 180,000 daily with unit CpDR meals. lipase-prot Yes [id number] 1{capsu Take 1 [facility] ease-amylas 2-03 le} capsule by it y of e (CREON) 00:00: mouth 3 [place] 36,000-114, 00 (three) Medic al 000- times Branch 180,000 daily with unit CpDR meals. lipase-prot Yes [id number] 1{capsu Take 1 [facility] ease-amylas 2-03 le} capsule by it y of e (CREON) 00:00: mouth 3 [place] 36,000-114, 00 (three) Medic al 000- times Branch 180,000 daily with unit CpDR meals. lipase-prot Yes [id number] 1{capsu Take 1 [facility] ease-amylas 2-03 le} capsule by it y of e (CREON) 00:00: mouth 3 [place] 36,000-114, 00 (three) Medic al 000- times Branch 180,000 daily with unit CpDR meals. lipase-prot Yes [id number] 1{capsu Take 1 [facility] ease-amylas 2-03 le} capsule by it y of e (CREON) 00:00: mouth 3 [place] 36,000-114, 00 (three) Medic al 000- times Branch 180,000 daily with unit CpDR meals. lipase-prot Yes [id number] 1{capsu Take 1 [facility] ease-amylas 2-03 le} capsule by it y of e (CREON) 00:00: mouth 3 [place] 36,000-114, 00 (three) Medic al 000- times Branch 180,000 daily with unit CpDR meals. lipase-prot Yes [id number] 1{capsu Take 1 [facility] ease-amylas 2-03 le} capsule by it y of e (CREON) 00:00: mouth 3 [place] 36,000-114, 00 (three) Medic al 000- times Branch 180,000 daily with unit CpDR meals. lipase-prot Yes [id number] 1{capsu Take 1 [facility] ease-amylas 2-03 le} capsule by it y of e (CREON) 00:00: mouth 3 [place] 36,000-114, 00 (three) Medic al 000- times Branch 180,000 daily with unit CpDR meals. lipase-prot Yes [id number] 1{capsu Take 1 [facility] ease-amylas 2-03 le} capsule by it y of e (CREON) 00:00: mouth 3 [place] 36,000-114, 00 (three) Medic al 000- times Branch 180,000 daily with unit CpDR meals. lipase-prot Yes [id number] 1{capsu Take 1 [facility] ease-amylas 2-03 le} capsule by it y of e (CREON) 00:00: mouth 3 [place] 36,000-114, 00 (three) Medic al 000- times Branch 180,000 daily with unit CpDR meals. lipase-prot Yes [id number] 1{capsu Take 1 [facility] ease-amylas 2-03 le} capsule by it y of e (CREON) 00:00: mouth 3 [place] 36,000-114, 00 (three) Medic al 000- times Branch 180,000 daily with unit CpDR meals. lipase-prot Yes [id number] 1{capsu Take 1 [facility] ease-amylas 2-03 le} capsule by it y of e (CREON) 00:00: mouth 3 [place] 36,000-114, 00 (three) Medic al 000- times Branch 180,000 daily with unit CpDR meals. lipase-prot Yes [id number] 1{capsu Take 1 [facility] ease-amylas 2-03 le} capsule by it y of e (CREON) 00:00: mouth 3 [place] 36,000-114, 00 (three) Medic al 000- times Branch 180,000 daily with unit CpDR meals. lipase-prot Yes [id number] 1{capsu Take 1 [facility] ease-amylas 2-03 le} capsule by it y of e (CREON) 00:00: mouth 3 [place] 36,000-114, 00 (three) Medic al 000- times Branch 180,000 daily with unit CpDR meals. lipase-prot Yes [id number] 1{capsu Take 1 [facility] ease-amylas 2-03 le} capsule by it y of e (CREON) 00:00: mouth 3 [place] 36,000-114, 00 (three) Medic al 000- times Branch 180,000 daily with unit CpDR meals. lipase-prot Yes [id number] 1{capsu Take 1 [facility] ease-amylas 2-03 le} capsule by it y of e (CREON) 00:00: mouth 3 [place] 36,000-114, 00 (three) Medic al 000- times Branch 180,000 daily with unit CpDR meals. lipase-prot Yes [id number] 1{capsu Take 1 [facility] 2-03 le} capsule by it y of e (CREON) 00:00: mouth 3 [place] 36,000-114, 00 (three) Medic al 000- times [facility] 180,000 daily with unit CpDR meals. lipase-prot Yes [id number] 1{capsu Take 1 [facility] 2-03 le} capsule by it y of e (CREON) 00:00: mouth 3 [place] 36,000-114, 00 (three) Medic al 000- times [facility] 180,000 daily with unit CpDR meals. lipase-prot Yes [id number] 1{capsu Take 1 [facility] 2-03 le} capsule by it y of e (CREON) 00:00: mouth 3 [place] 36,000-114, 00 (three) Medic al 000- times [facility] 180,000 daily with unit CpDR meals. lipase-prot Yes [id number] 1{capsu Take 1 [facility] 2-[facility] le} capsule by it y of e (CREON) 00:00: mouth 3 [place] 36,000-114, 00 (three) Medic al 000- times Branch 180,000 daily with unit CpDR meals. lipase-prot Yes [id number] 1{capsu Take 1 [facility] 2-03 le} capsule by it y of e (CREON) 00:00: mouth 3 [place] 36,000-114, 00 (three) Medic al 000- times Branch 180,000 daily with unit CpDR meals. lipase-prot Yes [id number] 1{capsu Take 1 [facility] 2-03 le} capsule by it y of e (CREON) 00:00: mouth 3 [place] 36,000-114, 00 (three) Medic al 000- times Branch 180,000 daily with unit CpDR meals. lipase-prot Yes [id number] 1{capsu Take 1 [facility] 2-03 le} capsule by it y of e (CREON) 00:00: mouth 3 [place] 36,000-114, 00 (three) Medic al 000- times Branch 180,000 daily with unit CpDR meals. lipase-prot Yes [id number] 1{capsu Take 1 [facility] 2-03 le} capsule by it y of e (CREON) 00:00: mouth 3 [place] 36,000-114, 00 (three) Medic al 000- times Branch 180,000 daily with unit CpDR meals. lipase-prot Yes [id number] 1{capsu Take 1 [facility] 2-03 le} capsule by it y of e (CREON) 00:00: mouth 3 [place] 36,000-114, 00 (three) Medic al 000- times Branch 180,000 daily with unit CpDR meals. lipase-prot Yes [id number] 1{capsu Take 1 [facility] 2-03 le} capsule by it y of e (CREON) 00:00: mouth 3 [place] 36,000-114, 00 (three) Medic al 000- times Branch 180,000 daily with unit CpDR meals. lipase-prot Yes [id number] 1{capsu Take 1 [facility] 2-03 le} capsule by it y of e (CREON) 00:00: mouth 3 [place] 36,000-114, 00 (three) Medic al 000- times Branch 180,000 daily with unit CpDR meals. lipase-prot Yes [id number] 1{capsu Take 1 [facility] 2-03 le} capsule by it y of e (CREON) 00:00: mouth 3 [place] 36,000-114, 00 (three) Medic al 000- times Branch 180,000 daily with unit CpDR meals. lipase-prot Yes [id number] 1{capsu Take 1 [facility] 2-03 le} capsule by it y of e (CREON) 00:00: mouth 3 [place] 36,000-114, 00 (three) Medic al 000- times Branch 180,000 daily with unit CpDR meals. lipase-prot Yes [id number] 1{capsu Take 1 [facility] 2-03 le} capsule by it y of e (CREON) 00:00: mouth 3 [place] 36,000-114, 00 (three) Medic al 000- times Branch 180,000 daily with unit CpDR meals. lipase-prot Yes [id number] 1{capsu Take 1 [facility] 2-03 le} capsule by it y of e (CREON) 00:00: mouth 3 [place] 36,000-114, 00 (three) Medic al 000- times Branch 180,000 daily with unit CpDR meals. lipase-prot Yes [id number] 1{capsu Take 1 [facility] 2-03 le} capsule by it y of e (CREON) 00:00: mouth 3 [place] 36,000-114, 00 (three) Medic al 000- times Branch 180,000 daily with unit CpDR meals. lipase-prot Yes [id number] 1{capsu Take 1 [facility] 2-03 le} capsule by it y of e (CREON) 00:00: mouth 3 [place] 36,000-114, 00 (three) Medic al 000- times Branch 180,000 daily with unit CpDR meals. lipase-prot Yes [id number] 1{capsu Take 1 [facility] 2-03 le} capsule by it y of e (CREON) 00:00: mouth 3 [place] 36,000-114, 00 (three) Medic al 000- times Branch 180,000 daily with unit CpDR meals. lipase-prot Yes [id number] 1{capsu Take 1 [facility] 2-03 le} capsule by it y of e (CREON) 00:00: mouth 3 [place] 36,000-114, 00 (three) Medic al 000- times Branch 180,000 daily with unit CpDR meals. lipase-prot Yes [id number] 1{capsu Take 1 [facility] 2-03 le} capsule by it y of e (CREON) 00:00: mouth 3 [place] 36,000-114, 00 (three) Medic al 000- times Branch 180,000 daily with unit CpDR meals. lipase-prot Yes [id number] 1{capsu Take 1 [facility] 2-03 le} capsule by it y of e (CREON) 00:00: mouth 3 [place] 36,000-114, 00 (three) Medic al 000- times Branch 180,000 daily with unit CpDR meals. lipase-prot Yes [id number] 1{capsu Take 1 [facility] 2-03 le} capsule by it y of e (CREON) 00:00: mouth 3 [place] 36,000-114, 00 (three) Medic al 000- times Branch 180,000 daily with unit CpDR meals. lipase-prot Yes [id number] 1{capsu Take 1 [facility] 2-03 le} capsule by it y of e (CREON) 00:00: mouth 3 [place] 36,000-114, 00 (three) Medic al 000- times Branch 180,000 daily with unit CpDR meals. lipase-prot Yes [id number] 1{capsu Take 1 [facility] 2-03 le} capsule by it y of e (CREON) 00:00: mouth 3 [place] 36,000-114, 00 (three) Medic al 000- times Branch 180,000 daily with unit CpDR meals. lipase-prot Yes [id number] 1{capsu Take 1 [facility] 2-03 le} capsule by it y of e (CREON) 00:00: mouth 3 [place] 36,000-114, 00 (three) Medic al 000- times Branch 180,000 daily with unit CpDR meals. lipase-prot Yes [id number] 1{capsu Take 1 [facility] 2-03 le} capsule by it y of e (CREON) 00:00: mouth 3 [place] 36,000-114, 00 (three) Medic al 000- times Branch 180,000 daily with unit CpDR meals. lipase-prot Yes [id number] 1{capsu Take 1 [facility] 2-03 le} capsule by it y of e (CREON) 00:00: mouth 3 [place] 36,000-114, 00 (three) Medic al 000- times Branch 180,000 daily with unit CpDR meals. lipase-prot Yes [id number] 1{capsu Take 1 [facility] 2-03 le} capsule by it y of e (CREON) 00:00: mouth 3 [place] 36,000-114, 00 (three) Medic al 000- times Branch 180,000 daily with unit CpDR meals. 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 Medical DX:E08.65 Branch CONTOUR 2019-0 Yes [id number] Use to [facility] ers NEXT TEST 5-31 check ity of STRIPS 00:00: glucose 4X [place] strip 00 daily. Medical DX:E08.65 Branch CONTOUR 2019-0 Yes [id number] Use to [facility] ers NEXT TEST 5-31 check ity of STRIPS 00:00: glucose 4X [place] strip 00 daily. Medical DX:E08.65 Branch CONTOUR 2019-0 Yes [id number] Use to [facility] ers NEXT TEST 5-31 check ity of STRIPS 00:00: glucose 4X [place] strip 00 daily. Medical DX:E08.65 Branch CONTOUR 2019-0 Yes [id number] Use to [facility] ers NEXT TEST 11-05 check ity of STRIPS 00:00: glucose 4X [place] strip 00 daily. Medical DX:E08.65 Branch CONTOUR Yes [id number] Use to [facility] ers NEXT TEST 11-05 check ity of STRIPS 00:00: glucose 4X [place] strip 00 daily. Medical DX:E08.65 Branch CONTOUR Yes [id number] Use to [facility] ers NEXT TEST 11-05 check ity of STRIPS 00:00: glucose 4X [place] strip 00 daily. Medical DX:E08.65 Branch CONTOUR Yes [id number] Use to [facility] ers NEXT TEST 11-05 check ity of STRIPS 00:00: glucose 4X [place] strip 00 daily. Medical DX:E08.65 Branch CONTOUR Yes [id number] Use to [facility] ers NEXT TEST 11-05 check ity of STRIPS 00:00: glucose 4X [place] strip 00 daily. Medical DX:E08.65 Branch CONTOUR Yes [id number] Use to [facility] ers NEXT TEST 11-05 check ity of STRIPS 00:00: glucose 4X [place] strip 00 daily. Medical DX:E08.65 Branch CONTOUR Yes [id number] Use to [facility] ers NEXT TEST 11-05 check ity of STRIPS 00:00: glucose 4X [place] strip 00 daily. Medical DX:E08.65 Branch CONTOUR Yes [id number] Use to [facility] ers NEXT TEST 11-05 check ity of STRIPS 00:00: glucose 4X [place] strip 00 daily. Medical DX:E08.65 Branch CONTOUR Yes [id number] Use to [facility] ers NEXT TEST 11-05 check ity of STRIPS 00:00: glucose 4X [place] strip 00 daily. Medical DX:E08.65 Branch CONTOUR Yes [id number] Use to [facility] ers NEXT TEST 11-05 check ity of STRIPS 00:00: glucose 4X [place] strip 00 daily. Medical DX:E08.65 Branch CONTOUR Yes [id number] Use to [facility] ers NEXT TEST 11-05 check ity of STRIPS 00:00: glucose 4X [place] strip 00 daily. Medical DX:E08.65 Branch CONTOUR Yes [id number] Use to [facility] ers NEXT TEST 11-05 check ity of STRIPS 00:00: glucose 4X [place] strip 00 daily. Medical DX:E08.65 Branch CONTOUR Yes [id number] Use to [facility] ers NEXT TEST 11-05 check ity of STRIPS 00:00: glucose 4X [place] strip 00 daily. Medical DX:E08.65 Branch CONTOUR Yes [id number] Use to [facility] ers NEXT TEST 11-05 check ity of STRIPS 00:00: glucose 4X [place] strip 00 daily. Medical DX:E08.65 Branch CONTOUR Yes [id number] Use to [facility] ers NEXT TEST 11-05 check ity of STRIPS 00:00: glucose 4X [place] strip 00 daily. Medical DX:E08.65 Branch CONTOUR Yes [id number] Use to [facility] ers NEXT TEST 11-05 check ity of STRIPS 00:00: glucose 4X [place] strip 00 daily. Medical DX:E08.65 Branch CONTOUR Yes [id number] Use to [facility] ers NEXT TEST 11-05 check ity of STRIPS 00:00: glucose 4X [place] strip 00 daily. Medical DX:E08.65 Branch CONTOUR Yes [id number] Use to [facility] ers NEXT TEST 11-05 check ity of STRIPS 00:00: glucose 4X [place] strip 00 daily. Medical DX:E08.65 Branch CONTOUR Yes [id number] Use to [facility] ers NEXT TEST 11-05 check ity of STRIPS 00:00: glucose 4X [place] strip 00 daily. Medical DX:E08.65 Branch CONTOUR Yes [id number] Use to [facility] ers NEXT TEST 11-05 check ity of STRIPS 00:00: glucose 4X [place] strip 00 daily. Medical DX:E08.65 Branch CONTOUR Yes [id number] Use to [facility] ers NEXT TEST 11-05 check ity of STRIPS 00:00: glucose 4X [place] strip 00 daily. Medical DX:E08.65 Branch CONTOUR Yes [id number] Use to [facility] ers NEXT TEST 11-05 check ity of STRIPS 00:00: glucose 4X [place] strip 00 daily. Medical DX:E08.65 Branch CONTOUR Yes [id number] Use to [facility] ers NEXT TEST 11-05 check ity of STRIPS 00:00: glucose 4X [place] strip 00 daily. Medical DX:E08.65 Branch CONTOUR Yes [id number] Use to [facility] ers NEXT TEST 11-05 check ity of STRIPS 00:00: glucose 4X [place] strip 00 daily. Medical DX:E08.65 Branch CONTOUR Yes [id number] Use to [facility] ers NEXT TEST 11-05 check ity of STRIPS 00:00: glucose 4X [place] strip 00 daily. Medical DX:E08.65 Branch CONTOUR Yes [id number] Use to [facility] ers NEXT TEST 11-05 check ity of STRIPS 00:00: glucose 4X [place] strip 00 daily. Medical DX:E08.65 Branch CONTOUR Yes [id number] Use to [facility] ers NEXT TEST 11-05 check ity of STRIPS 00:00: glucose 4X [place] strip 00 daily. Medical DX:E08.65 Branch CONTOUR Yes [id number] Use to [facility] ers NEXT TEST 11-05 check ity of STRIPS 00:00: glucose 4X [place] strip 00 daily. Medical DX:E08.65 Branch CONTOUR Yes [id number] Use to [facility] ers NEXT TEST 11-05 check ity of STRIPS 00:00: glucose 4X [place] strip 00 daily. Medical DX:E08.65 Branch CONTOUR Yes [id number] Use to [facility] ers NEXT TEST 11-05 check ity of STRIPS 00:00: glucose 4X [place] strip 00 daily. Medical DX:E08.65 Branch CONTOUR Yes [id number] Use to [facility] ers NEXT TEST 11-05 check ity of STRIPS 00:00: glucose 4X [place] strip 00 daily. Medical DX:E08.65 Branch CONTOUR Yes [id number] Use to [facility] ers NEXT TEST 11-05 check ity of STRIPS 00:00: glucose 4X [place] strip 00 daily. Medical DX:E08.65 Branch CONTOUR Yes [id number] Use to [facility] ers NEXT TEST 11-05 check ity of STRIPS 00:00: glucose 4X [place] strip 00 daily. Medical DX:E08.65 Branch CONTOUR Yes [id number] Use to [facility] ers NEXT TEST 11-05 check ity of STRIPS 00:00: glucose 4X [place] strip 00 daily. Medical DX:E08.65 Branch CONTOUR Yes [id number] Use to [facility] ers NEXT TEST 11-05 check ity of STRIPS 00:00: glucose 4X [place] strip 00 daily. Medical DX:E08.65 Branch CONTOUR 2018- Yes [id number] Use to [facility] ers NEXT TEST 11-05 check ity of STRIPS 00:00: glucose 4X [place] strip 00 daily. Medical DX:E08.65 Branch CONTOUR 2019- Yes [id number] Use to [facility] ers NEXT TEST 11-05 check ity of STRIPS 00:00: glucose 4X [place] strip 00 daily. Medical DX:E08.65 Branch CONTOUR Yes [id number] Use to [facility] ers NEXT TEST 11-05 check ity of STRIPS 00:00: glucose 4X [place] strip 00 daily. Medical DX:E08.65 Branch CONTOUR Yes [id number] Use to [facility] ers NEXT TEST 11-05 check ity of STRIPS 00:00: glucose 4X [place] strip 00 daily. Medical DX:E08.65 Branch CONTOUR Yes [id number] Use to [facility] ers NEXT TEST 11-05 check ity of STRIPS 00:00: glucose 4X [place] strip 00 daily. Medical DX:E08.65 Branch CONTOUR Yes [id number] Use to [facility] ers NEXT TEST 11-05 check ity of STRIPS 00:00: glucose 4X [place] strip 00 daily. Medical DX:E08.65 Branch CONTOUR Yes [id number] Use to [facility] ers NEXT TEST 11-05 check ity of STRIPS 00:00: glucose 4X [place] strip 00 daily. Medical DX:E08.65 Branch CONTOUR Yes [id number] Use to [facility] ers NEXT TEST 11-05 check ity of STRIPS 00:00: glucose 4X [place] strip 00 daily. Medical DX:E08.65 Branch CONTOUR Yes [id number] Use to [facility] ers NEXT TEST 11-05 check ity of STRIPS 00:00: glucose 4X [place] strip 00 daily. Medical DX:E08.65 Branch CONTOUR 2018- Yes [id number] Use to [facility] ers NEXT TEST 11-05 check ity of STRIPS 00:00: glucose 4X [place] strip 00 daily. Medical DX:E08.65 Branch CONTOUR Yes [id number] Use to [facility] ers NEXT TEST 11-05 check ity of STRIPS 00:00: glucose 4X [place] strip 00 daily. Medical DX:E08.65 Branch CONTOUR Yes [id number] Use to [facility] ers NEXT TEST 11-05 check ity of STRIPS 00:00: glucose 4X [place] strip 00 daily. Medical DX:E08.65 Branch CONTOUR 2018- Yes [id number] Use to [facility] ers NEXT TEST 11-05 check ity of STRIPS 00:00: glucose 4X [place] strip 00 daily. Medical DX:E08.65 Branch CONTOUR 2019-0 Yes [id number] Use to [facility] ers NEXT TEST 11-05 check ity of STRIPS 00:00: glucose 4X [place] strip 00 daily. Medical DX:E08.65 Branch CONTOUR 2019-0 Yes [id number] Use to [facility] ers NEXT TEST 11-05 check ity of STRIPS 00:00: glucose 4X [place] strip 00 daily. Medical DX:E08.65 Branch CONTOUR 2019- Yes [id number] Use to [facility] ers NEXT TEST 11-05 check ity of STRIPS 00:00: glucose 4X [place] strip 00 daily. Medical DX:E08.65 Branch CONTOUR Yes [id number] Use to [facility] ers NEXT TEST 11-05 check ity of STRIPS 00:00: glucose 4X [place] strip 00 daily. Medical DX:E08.65 Branch CONTOUR Yes [id number] Use to [facility] ers NEXT TEST 11-05 check ity of STRIPS 00:00: glucose 4X [place] strip 00 daily. Medical DX:E08.65 Branch CONTOUR Yes [id number] Use to [facility] ers NEXT TEST 11-05 check ity of STRIPS 00:00: glucose 4X [place] strip 00 daily. Medical DX:E08.65 Branch CONTOUR Yes [id number] Use to [facility] ers NEXT TEST 11-05 check ity of STRIPS 00:00: glucose 4X [place] strip 00 daily. Medical DX:E08.65 Branch CONTOUR Yes [id number] Use to [facility] ers NEXT TEST 11-05 check ity of STRIPS 00:00: glucose 4X [place] strip 00 daily. Medical DX:E08.65 Branch CONTOUR 2019- Yes [id number] Use to [facility] ers NEXT TEST 11-05 check ity of STRIPS 00:00: glucose 4X [place] strip 00 daily. Medical DX:E08.65 Branch CONTOUR Yes [id number] Use to [facility] ers NEXT TEST 11-05 check ity of STRIPS 00:00: glucose 4X [place] strip 00 daily. Medical DX:E08.65 Branch CONTOUR 2019-0 Yes [id number] Use to [facility] ers NEXT TEST 11-05 check ity of STRIPS 00:00: glucose 4X [place] strip 00 daily. Medical DX:E08.65 Branch CONTOUR 2019- Yes [id number] Use to [facility] ers NEXT TEST 11-05 check ity of STRIPS 00:00: glucose 4X [place] strip 00 daily. Medical DX:E08.65 Branch CONTOUR 2019-0 Yes [id number] Use to [facility] ers NEXT TEST 5-31 check ity of STRIPS 00:00: glucose 4X [place] strip 00 daily. Medical DX:E08.65 Branch CONTOUR 2019-0 Yes [id number] Use to [facility] ers NEXT TEST 5 check ity of STRIPS 00:00: glucose 4X [place] strip 00 daily. Medical DX:E08.65 Branch CONTOUR 2019-0 Yes [id number] Use to [facility] ers NEXT TEST 5- check ity of STRIPS 00:00: glucose 4X [place] strip 00 daily. Medical DX:E08.65 Branch CONTOUR 2019-0 Yes [id number] Use to [facility] ers NEXT TEST 5- check ity of STRIPS 00:00: glucose 4X [place] strip 00 daily. Medical DX:E08.65 Branch CONTOUR 2019-0 Yes [id number] Use to [facility] ers NEXT TEST 11-05 check ity of STRIPS 00:00: glucose 4X [place] strip 00 daily. Medical DX:E08.65 Branch flash 2019-0 Yes [id number] 1{each} 1 Each Uni vers glucose 3-15 daily. Dx ity of scanning 00:00: 11.8, E [place] reader Misc 00 16.2, K Medic al 86.89 Branch flash 2019-0 Yes [id number] 1{each} 1 Each Uni vers glucose 3-15 every 10 ity of sensor Kit 00:00: () days. Dx Medical 11.8, E Branch 16.2, K 86.89 flash 2019-0 Yes [id number] 1{each} 1 Each Uni vers glucose 3-15 daily. Dx ity of scanning 00:00: 11.8, E [place] reader Misc 00 16.2, K Medic al 86.89 Branch flash 2019-0 Yes [id number] 1{each} 1 Each Uni vers glucose 3-15 every 10 ity of sensor Kit 00:00: () days. Dx Medical 11.8, E Branch 16.2, K 86.89 flash 2019-0 Yes [id number] 1{each} 1 Each Uni vers glucose 3-15 daily. Dx ity of scanning 00:00: 11.8, E [place] reader Misc 00 16.2, K Medic al 86.89 Branch flash 2019-0 Yes [id number] 1{each} 1 Each Uni vers glucose 3-15 every 10 ity of sensor Kit 00:00: () 00 days. Dx Medical 11.8, E Branch 16.2, K 86.89 flash 2019-0 Yes [id number] 1{each} 1 Each Uni vers glucose 3-15 daily. Dx ity of scanning 00:00: 11.8, E [place] reader Misc 00 16.2, K Medic al 86.89 Branch flash 2019-0 Yes [id number] 1{each} 1 Each Uni vers glucose 3-15 every 10 ity of sensor Kit 00:00: () 00 days. Dx Medical 11.8, E Branch 16.2, K 86.89 flash 2019-0 Yes [id number] 1{each} 1 Each Uni vers glucose 3-15 daily. Dx ity of scanning 00:00: 11.8, E [place] reader Misc 00 16.2, K Medic al 86.89 Branch flash 2019-0 Yes [id number] 1{each} 1 Each Uni vers glucose 3-15 every 10 ity of sensor Kit 00:00: () 00 days. Dx Medical 11.8, E Branch 16.2, K 86.89 flash 2019-0 Yes [id number] 1{each} 1 Each Uni vers glucose 3-15 daily. Dx ity of scanning 00:00: 11.8, E [place] reader Misc 00 16.2, K Medic al 86.89 Branch flash 2019-0 Yes [id number] 1{each} 1 Each Uni vers glucose 3-15 every 10 ity of sensor Kit 00:00: () 00 days. Dx Medical 11.8, E Branch 16.2, K 86.89 flash 2019-0 Yes [id number] 1{each} 1 Each Uni vers glucose 3-15 daily. Dx ity of scanning 00:00: 11.8, E [place] reader Misc 00 16.2, K Medic al 86.89 Branch flash 2019-0 Yes [id number] 1{each} 1 Each Uni vers glucose 3-15 every 10 ity of sensor Kit 00:00: () 00 days. Dx Medical 11.8, E Branch 16.2, K 86.89 flash 2019-0 Yes [id number] 1{each} 1 Each Uni vers glucose 3-15 daily. Dx ity of scanning 00:00: 11.8, E [place] reader Misc 00 16.2, K Medic al 86.89 Branch flash 2019-0 Yes [id number] 1{each} 1 Each Uni vers glucose 3-15 every 10 ity of sensor Kit 00:00: () 00 days. Dx Medical 11.8, E Branch 16.2, K 86.89 flash 2019-0 Yes [id number] 1{each} 1 Each Uni vers glucose 3-15 daily. Dx ity of scanning 00:00: 11.8, E [place] reader Misc 00 16.2, K Medic al 86.89 Branch flash 2019-0 Yes [id number] 1{each} 1 Each Uni vers glucose 3-15 every 10 ity of sensor Kit 00:00: () 00 days. Dx Medical 11.8, E Branch 16.2, K 86.89 flash 2019-0 Yes [id number] 1{each} 1 Each Uni vers glucose 3-15 daily. Dx ity of scanning 00:00: 11.8, E [place] reader Misc 00 16.2, K Medic al 86.89 Branch flash 2019-0 Yes [id number] 1{each} 1 Each Uni vers glucose 3-15 every 10 ity of sensor Kit 00:00: () 00 days. Dx Medical 11.8, E Branch 16.2, K 86.89 flash 2019-0 Yes [id number] 1{each} 1 Each Uni vers glucose 3-15 daily. Dx ity of scanning 00:00: 11.8, E [place] reader Misc 00 16.2, K Medic al 86.89 Branch flash 2019-0 Yes [id number] 1{each} 1 Each Uni vers glucose 3-15 every 10 ity of sensor Kit 00:00: () 00 days. Dx Medical 11.8, E Branch 16.2, K 86.89 flash 2019-0 Yes [id number] 1{each} 1 Each Uni vers glucose 3-15 daily. Dx ity of scanning 00:00: 11.8, E [place] reader Misc 00 16.2, K Medic al 86.89 Branch flash 2019-0 Yes [id number] 1{each} 1 Each Uni vers glucose 3-15 every 10 ity of sensor Kit 00:00: () 00 days. Dx Medical 11.8, E Branch 16.2, K 86.89 flash 2019-0 Yes [id number] 1{each} 1 Each Uni vers glucose 3-15 daily. Dx ity of scanning 00:00: 11.8, E [place] reader Misc 00 16.2, K Medic al 86.89 Branch flash 2019-0 Yes [id number] 1{each} 1 Each Uni vers glucose 3-15 every 10 ity of sensor Kit 00:00: () 00 days. Dx Medical 11.8, E Branch 16.2, K 86.89 flash 2019-0 Yes [id number] 1{each} 1 Each Uni vers glucose 3-15 daily. Dx ity of scanning 00:00: 11.8, E [place] reader Misc 00 16.2, K Medic al 86.89 Branch flash 2019-0 Yes [id number] 1{each} 1 Each Uni vers glucose 3-15 every 10 ity of sensor Kit 00:00: () 00 days. Dx Medical 11.8, E Branch 16.2, K 86.89 flash 2019-0 Yes [id number] 1{each} 1 Each Uni vers glucose 3-15 daily. Dx ity of scanning 00:00: 11.8, E [place] reader Misc 00 16.2, K Medic al 86.89 Branch flash 2019-0 Yes [id number] 1{each} 1 Each Uni vers glucose 3-15 every 10 ity of sensor Kit 00:00: () 00 days. Dx Medical 11.8, E Branch 16.2, K 86.89 flash 2019-0 Yes [id number] 1{each} 1 Each Uni vers glucose 3-15 daily. Dx ity of scanning 00:00: 11.8, E [place] reader Misc 00 16.2, K Medic al 86.89 Branch flash 2019-0 Yes [id number] 1{each} 1 Each Uni vers glucose 3-15 every 10 ity of sensor Kit 00:00: (ten) 00 days. Dx Medical 11.8, E Branch 16.2, K 86.89 flash 2019-0 Yes [id number] 1{each} 1 Each Uni vers glucose 3-15 daily. Dx ity of scanning 00:00: 11.8, E [place] reader Misc 00 16.2, K Medic al 86.89 Branch flash 2019-0 Yes [id number] 1{each} 1 Each Uni vers glucose 3-15 every 10 ity of sensor Kit 00:00: (ten) 00 days. Dx Medical 11.8, E Branch 16.2, K 86.89 flash 2019-0 Yes [id number] 1{each} 1 Each Uni vers glucose 3-15 daily. Dx ity of scanning 00:00: 11.8, E [place] reader Misc 00 16.2, K Medic al 86.89 Branch flash 2019-0 Yes [id number] 1{each} 1 Each Uni vers glucose 3-15 every 10 ity of sensor Kit 00:00: () 00 days. Dx Medical 11.8, E Branch 16.2, K 86.89 flash 2019-0 Yes [id number] 1{each} 1 Each Uni vers glucose 3-15 daily. Dx ity of scanning 00:00: 11.8, E [place] reader Misc 00 16.2, K Medic al 86.89 Branch flash 2019-0 Yes [id number] 1{each} 1 Each Uni vers glucose 3-15 every 10 ity of sensor Kit 00:00: () 00 days. Dx Medical 11.8, E Branch 16.2, K 86.89 flash 2019-0 Yes [id number] 1{each} 1 Each Uni vers glucose 3-15 daily. Dx ity of scanning 00:00: 11.8, E [place] reader Misc 00 16.2, K Medic al 86.89 Branch flash 2019-0 Yes [id number] 1{each} 1 Each Uni vers glucose 3-15 every 10 ity of sensor Kit 00:00: () 00 days. Dx Medical 11.8, E Branch 16.2, K 86.89 flash 2019-0 Yes [id number] 1{each} 1 Each Uni vers glucose 3-15 daily. Dx ity of scanning 00:00: 11.8, E [place] reader Misc 00 16.2, K Medic al 86.89 Branch flash 2019-0 Yes [id number] 1{each} 1 Each Uni vers glucose 3-15 every 10 ity of sensor Kit 00:00: () 00 days. Dx Medical 11.8, E Branch 16.2, K 86.89 flash 2019-0 Yes [id number] 1{each} 1 Each Uni vers glucose 3-15 daily. Dx ity of scanning 00:00: 11.8, E [place] reader Misc 00 16.2, K Medic al 86.89 Branch flash 2019-0 Yes [id number] 1{each} 1 Each Uni vers glucose 3-15 every 10 ity of sensor Kit 00:00: () 00 days. Dx Medical 11.8, E Branch 16.2, K 86.89 flash 2019-0 Yes [id number] 1{each} 1 Each Uni vers glucose 3-15 daily. Dx ity of scanning 00:00: 11.8, E [place] reader Misc 00 16.2, K Medic al 86.89 Branch flash 2019-0 Yes [id number] 1{each} 1 Each Uni vers glucose 3-15 every 10 ity of sensor Kit 00:00: () 00 days. Dx Medical 11.8, E Branch 16.2, K 86.89 flash 2019-0 Yes [id number] 1{each} 1 Each Uni vers glucose 3-15 daily. Dx ity of scanning 00:00: 11.8, E [place] reader Misc 00 16.2, K Medic al 86.89 Branch flash 2019-0 Yes [id number] 1{each} 1 Each Uni vers glucose 3-15 every 10 ity of sensor Kit 00:00: () 00 days. Dx Medical 11.8, E Branch 16.2, K 86.89 flash 2019-0 Yes [id number] 1{each} 1 Each Uni vers glucose 3-15 daily. Dx ity of scanning 00:00: 11.8, E [place] reader Misc 00 16.2, K Medic al 86.89 Branch flash 2019-0 Yes [id number] 1{each} 1 Each Uni vers glucose 3-15 every 10 ity of sensor Kit 00:00: () 00 days. Dx Medical 11.8, E Branch 16.2, K 86.89 flash 2019-0 Yes [id number] 1{each} 1 Each Uni vers glucose 3-15 daily. Dx ity of scanning 00:00: 11.8, E [place] reader Misc 00 16.2, K Medic al 86.89 Branch flash 2019-0 Yes [id number] 1{each} 1 Each Uni vers glucose 3-15 every 10 ity of sensor Kit 00:00: () 00 days. Dx Medical 11.8, E Branch 16.2, K 86.89 flash 2019-0 Yes [id number] 1{each} 1 Each Uni vers glucose 3-15 daily. Dx ity of scanning 00:00: 11.8, E [place] reader Misc 00 16.2, K Medic al 86.89 Branch flash 2019-0 Yes [id number] 1{each} 1 Each Uni vers glucose 3-15 every 10 ity of sensor Kit 00:00: () 00 days. Dx Medical 11.8, E Branch 16.2, K 86.89 flash 2019-0 Yes [id number] 1{each} 1 Each Uni vers glucose 3-15 daily. Dx ity of scanning 00:00: 11.8, E [place] reader Misc 00 16.2, K Medic al 86.89 Branch flash 2019-0 Yes [id number] 1{each} 1 Each Uni vers glucose 3-15 every 10 ity of sensor Kit 00:00: () 00 days. Dx Medical 11.8, E Branch 16.2, K 86.89 flash 2019-0 Yes [id number] 1{each} 1 Each Uni vers glucose 3-15 daily. Dx ity of scanning 00:00: 11.8, E [place] reader Misc 00 16.2, K Medic al 86.89 Branch flash 2019-0 Yes [id number] 1{each} 1 Each Uni vers glucose 3-15 every 10 ity of sensor Kit 00:00: () 00 days. [facility]x Medical 11.8, E Branch 16.2, K 86.89 flash 2019-0 Yes [id number] 1{each} 1 Each Uni vers glucose 3-15 daily. Dx ity of scanning 00:00: 11.8, E [place] reader Misc 00 16.2, K Medic al 86.89 Branch flash 2019-0 Yes [id number] 1{each} 1 Each Uni vers glucose 3-15 every 10 ity of sensor Kit 00:00: () 00 days. [facility]x Medical 11.8, E Branch 16.2, K 86.89 flash 2019-0 Yes [id number] 1{each} 1 Each Uni vers glucose 3-15 daily. Dx ity of scanning 00:00: 11.8, E [place] reader Misc 00 16.2, K Medic al 86.89 Branch flash 2019-0 Yes [id number] 1{each} 1 Each Uni vers glucose 3-15 every 10 ity of sensor Kit 00:00: () 00 days. Dx Medical 11.8, E Branch 16.2, K 86.89 flash 2019-0 Yes [id number] 1{each} 1 Each Uni vers glucose 3-15 daily. Dx ity of scanning 00:00: 11.8, E [place] reader Misc 00 16.2, K Medic al 86.89 Branch flash 2019-0 Yes [id number] 1{each} 1 Each Uni vers glucose 3-15 every 10 ity of sensor Kit 00:00: () 00 days. Dx Medical 11.8, E Branch 16.2, K 86.89 flash 2019-0 Yes [id number] 1{each} 1 Each Uni vers glucose 3-15 daily. Dx ity of scanning 00:00: 11.8, E [place] reader Misc 00 16.2, K Medic al 86.89 Branch flash 2019-0 Yes [id number] 1{each} 1 Each Uni vers glucose 3-15 every 10 ity of sensor Kit 00:00: () 00 days. Dx Medical 11.8, E Branch 16.2, K 86.89 flash 2019-0 Yes [id number] 1{each} 1 Each Uni vers glucose 3-15 daily. Dx ity of scanning 00:00: 11.8, E [place] reader Misc 00 16.2, K Medic al 86.89 Branch flash 2019-0 Yes [id number] 1{each} 1 Each Uni vers glucose 3-15 every 10 ity of sensor Kit 00:00: () [place] 00 days. [facility] Medical 11.8, E Branch 16.2, K 86.89 flash 2019-0 Yes [id number] 1{each} 1 Each Uni vers glucose 3-15 daily. Dx ity of scanning 00:00: 11.8, E [place] reader Misc 00 16.2, K Medic al 86.89 Branch flash 2019-0 Yes [id number] 1{each} 1 Each Uni vers glucose 3-15 every 10 ity of sensor Kit 00:00: () 00 days. Dx Medical 11.8, E Branch 16.2, K 86.89 flash 2019-0 Yes [id number] 1{each} 1 Each Uni vers glucose 3-15 daily. Dx ity of scanning 00:00: 11.8, E [place] reader Misc 00 16.2, K Medic al 86.89 Branch flash 2019-0 Yes [id number] 1{each} 1 Each Uni vers glucose 3-15 every 10 ity of sensor Kit 00:00: () 00 days. Dx Medical 11.8, E Branch 16.2, K 86.89 flash 2019-0 Yes [id number] 1{each} 1 Each Uni vers glucose 3-15 daily. Dx ity of scanning 00:00: 11.8, E [place] reader Misc 00 16.2, K Medic al 86.89 Branch flash 2019-0 Yes [id number] 1{each} 1 Each Uni vers glucose 3-15 every 10 ity of sensor Kit 00:00: () 00 days. Dx Medical 11.8, E Branch 16.2, K 86.89 flash 2019-0 Yes [id number] 1{each} 1 Each Uni vers glucose 3-15 daily. Dx ity of scanning 00:00: 11.8, E [place] reader Misc 00 16.2, K Medic al 86.89 Branch flash 2019-0 Yes [id number] 1{each} 1 Each Uni vers glucose 3-15 every 10 ity of sensor Kit 00:00: () 00 days. Dx Medical 11.8, E Branch 16.2, K 86.89 flash 2019-0 Yes [id number] 1{each} 1 Each Uni vers glucose 3-15 daily. Dx ity of scanning 00:00: 11.8, E [place] reader Misc 00 16.2, K Medic al 86.89 Branch flash 2019-0 Yes [id number] 1{each} 1 Each Uni vers glucose 3-15 every 10 ity of sensor Kit 00:00: () 00 days. Dx Medical 11.8, E Branch 16.2, K 86.89 flash 2019-0 Yes [id number] 1{each} 1 Each Uni vers glucose 3-15 daily. Dx ity of scanning 00:00: 11.8, E [place] reader Misc 00 16.2, K Medic al 86.89 Branch flash 2019-0 Yes [id number] 1{each} 1 Each Uni vers glucose 3-15 every 10 ity of sensor Kit 00:00: () 00 days. Dx Medical 11.8, E Branch 16.2, K 86.89 flash 2019-0 Yes [id number] 1{each} 1 Each Uni vers glucose 3-15 daily. Dx ity of scanning 00:00: 11.8, E [place] reader Misc 00 16.2, K Medic al 86.89 Branch flash 2019-0 Yes [id number] 1{each} 1 Each Uni vers glucose 3-15 every 10 ity of sensor Kit 00:00: () [place] 00 days. Dx Medical 11.8, E Branch 16.2, K 86.89 flash 2019-0 Yes [id number] 1{each} 1 Each Uni vers glucose 3-15 daily. Dx ity of scanning 00:00: 11.8, E [place] reader Misc 00 16.2, K Medic al 86.89 Branch flash 2019-0 Yes [id number] 1{each} 1 Each Uni vers glucose 3-15 every 10 ity of sensor Kit 00:00: () 00 days. Dx Medical 11.8, E Branch 16.2, K 86.89 flash 2019-0 Yes [id number] 1{each} 1 Each Uni vers glucose 3-15 daily. Dx ity of scanning 00:00: 11.8, E [place] reader Misc 00 16.2, K Medic al 86.89 Branch flash 2019-0 Yes [id number] 1{each} 1 Each Uni vers glucose 3-15 every 10 ity of sensor Kit 00:00: () [place] 00 days. Dx Medical 11.8, E Branch 16.2, K 86.89 flash 2019-0 Yes [id number] 1{each} 1 Each Uni vers glucose 3-15 daily. Dx ity of scanning 00:00: 11.8, E [place] reader Misc 00 16.2, K Medic al 86.89 Branch flash 2019-0 Yes [id number] 1{each} 1 Each Uni vers glucose 3-15 every 10 ity of sensor Kit 00:00: () [place] 00 days. Dx Medical 11.8, E Branch 16.2, K 86.89 flash 2019-0 Yes [id number] 1{each} 1 Each Uni vers glucose 3-15 daily. Dx ity of scanning 00:00: 11.8, E [place] reader Misc 00 16.2, K Medic al 86.89 Branch flash 2019-0 Yes [id number] 1{each} 1 Each Uni vers glucose 3-15 every 10 ity of sensor Kit 00:00: () [place] 00 days. Dx Medical 11.8, E Branch 16.2, K 86.89 flash 2019-0 Yes [id number] 1{each} 1 Each Uni vers glucose 3-15 daily. Dx ity of scanning 00:00: 11.8, E [place] reader Misc 00 16.2, K Medic al 86.89 Branch flash 2019-0 Yes [id number] 1{each} 1 Each Uni vers glucose 3-15 every 10 ity of sensor Kit 00:00: () 00 days. Dx Medical 11.8, E Branch 16.2, K 86.89 flash 2019-0 Yes [id number] 1{each} 1 Each Uni vers glucose 3-15 daily. Dx ity of scanning 00:00: 11.8, E [place] reader Misc 00 16.2, K Medic al 86.89 Branch flash 2019-0 Yes [id number] 1{each} 1 Each Uni vers glucose 3-15 every 10 ity of sensor Kit 00:00: () 00 days. Dx Medical 11.8, E Branch 16.2, K 86.89 flash 2019-0 Yes [id number] 1{each} 1 Each Uni vers glucose 3-15 daily. Dx ity of scanning 00:00: 11.8, E [place] reader Misc 00 16.2, K Medic al 86.89 Branch flash 2019-0 Yes [id number] 1{each} 1 Each Uni vers glucose 3-15 every 10 ity of sensor Kit 00:00: () 00 days. Dx Medical 11.8, E Branch 16.2, K 86.89 flash 2019-0 Yes [id number] 1{each} 1 Each Uni vers glucose 3-15 daily. Dx ity of scanning 00:00: 11.8, E [place] reader Misc 00 16.2, K Medic al 86.89 Branch flash 2019-0 Yes [id number] 1{each} 1 Each Uni vers glucose 3-15 every 10 ity of sensor Kit 00:00: () 00 days. Dx Medical 11.8, E Branch 16.2, K 86.89 flash 2019-0 Yes [id number] 1{each} 1 Each Uni vers glucose 3-15 daily. Dx ity of scanning 00:00: 11.8, E [place] reader Misc 00 16.2, K Medic al 86.89 Branch flash 2019-0 Yes [id number] 1{each} 1 Each Uni vers glucose 3-15 every 10 ity of sensor Kit 00:00: () 00 days. Dx Medical 11.8, E Branch 16.2, K 86.89 flash 2019-0 Yes [id number] 1{each} 1 Each Uni vers glucose 3-15 daily. Dx ity of scanning 00:00: 11.8, E [place] reader Misc 00 16.2, K Medic al 86.89 Branch flash 2019-0 Yes [id number] 1{each} 1 Each Uni vers glucose 3-15 every 10 ity of sensor Kit 00:00: () 00 days. Dx Medical 11.8, E Branch 16.2, K 86.89 flash 2019-0 Yes [id number] 1{each} 1 Each Uni vers glucose 3-15 daily. Dx ity of scanning 00:00: 11.8, E [place] reader Misc 00 16.2, K Medic al 86.89 Branch flash 2019-0 Yes [id number] 1{each} 1 Each Uni vers glucose 3-15 every 10 ity of sensor Kit 00:00: () 00 days. Dx Medical 11.8, E Branch 16.2, K 86.89 flash 2019-0 Yes [id number] 1{each} 1 Each Uni vers glucose 3-15 daily. Dx ity of scanning 00:00: 11.8, E [place] reader Misc 00 16.2, K Medic al 86.89 Branch flash 2019-0 Yes [id number] 1{each} 1 Each Uni vers glucose 3-15 every 10 ity of sensor Kit 00:00: () 00 days. Dx Medical 11.8, E Branch 16.2, K 86.89 flash 2019-0 Yes [id number] 1{each} 1 Each Uni vers glucose 3-15 daily. Dx ity of scanning 00:00: 11.8, E [place] reader Misc 00 16.2, K Medic al 86.89 Branch flash 2019-0 Yes [id number] 1{each} 1 Each Uni vers glucose 3-15 every 10 ity of sensor Kit 00:00: () 00 days. Dx Medical 11.8, E Branch 16.2, K 86.89 flash 2019-0 Yes [id number] 1{each} 1 Each Uni vers glucose 3-15 daily. Dx ity of scanning 00:00: 11.8, E [place] reader Misc 00 16.2, K Medic al 86.89 Branch flash 2019-0 Yes [id number] 1{each} 1 Each Uni vers glucose 3-15 every 10 ity of sensor Kit 00:00: () 00 days. Dx Medical 11.8, E Branch 16.2, K 86.89 flash 2019-0 Yes [id number] 1{each} 1 Each Uni vers glucose 3-15 daily. Dx ity of scanning 00:00: 11.8, E [place] reader Misc 00 16.2, K Medic al 86.89 Branch flash 2019-0 Yes [id number] 1{each} 1 Each Uni vers glucose 3-15 every 10 ity of sensor Kit 00:00: () 00 days. Dx Medical 11.8, E Branch 16.2, K 86.89 flash 2019-0 Yes [id number] 1{each} 1 Each Uni vers glucose 3-15 daily. Dx ity of scanning 00:00: 11.8, E [place] reader Misc 00 16.2, K Medic al 86.89 Branch flash 2019-0 Yes [id number] 1{each} 1 Each Uni vers glucose 3-15 every 10 ity of sensor Kit 00:00: () 00 days. Dx Medical 11.8, E Branch 16.2, K 86.89 flash 2019-0 Yes [id number] 1{each} 1 Each Uni vers glucose 3-15 daily. Dx ity of scanning 00:00: 11.8, E [place] reader Misc 00 16.2, K Medic al 86.89 Branch flash 2019-0 Yes [id number] 1{each} 1 Each Uni vers glucose 3-15 every 10 ity of sensor Kit 00:00: () 00 days. Dx Medical 11.8, E Branch 16.2, K 86.89 flash 2019-0 Yes [id number] 1{each} 1 Each Uni vers glucose 3-15 daily. Dx ity of scanning 00:00: 11.8, E [place] reader Misc 00 16.2, K Medic al 86.89 Branch flash 2019-0 Yes [id number] 1{each} 1 Each Uni vers glucose 3-15 every 10 ity of sensor Kit 00:00: () 00 days. Dx Medical 11.8, E Branch 16.2, K 86.89 flash 2019-0 Yes [id number] 1{each} 1 Each Uni vers glucose 3-15 daily. Dx ity of scanning 00:00: 11.8, E [place] reader Misc 00 16.2, K Medic al 86.89 Branch flash 2019-0 Yes [id number] 1{each} 1 Each Uni vers glucose 3-15 every 10 ity of sensor Kit 00:00: () 00 days. Dx Medical 11.8, E Branch 16.2, K 86.89 flash 2019-0 Yes [id number] 1{each} 1 Each Uni vers glucose 3-15 daily. Dx ity of scanning 00:00: 11.8, E [place] reader Misc 00 16.2, K Medic al 86.89 Branch flash 2019-0 Yes [id number] 1{each} 1 Each Uni vers glucose 3-15 every 10 ity of sensor Kit 00:00: () 00 days. Dx Medical 11.8, E Branch 16.2, K 86.89 flash 2019-0 Yes [id number] 1{each} 1 Each Uni vers glucose 3-15 daily. Dx ity of scanning 00:00: 11.8, E [place] reader Misc 00 16.2, K Medic al 86.89 Branch flash 2019-0 Yes [id number] 1{each} 1 Each Uni vers glucose 3-15 every 10 ity of sensor Kit 00:00: () 00 days. Dx Medical 11.8, E Branch 16.2, K 86.89 flash 2019-0 Yes [id number] 1{each} 1 Each Uni vers glucose 3-15 daily. Dx ity of scanning 00:00: 11.8, E [place] reader Misc 00 16.2, K Medic al 86.89 Branch flash 2019-0 Yes [id number] 1{each} 1 Each Uni vers glucose 3-15 every 10 ity of sensor Kit 00:00: () 00 days. Dx Medical 11.8, E Branch 16.2, K 86.89 flash 2019-0 Yes [id number] 1{each} 1 Each Uni vers glucose 3-15 daily. Dx ity of scanning 00:00: 11.8, E [place] reader Misc 00 16.2, K Medic al 86.89 Branch flash 2019-0 Yes [id number] 1{each} 1 Each Uni vers glucose 3-15 every 10 ity of sensor Kit 00:00: () 00 days. Dx Medical 11.8, E Branch 16.2, K 86.89 flash 2019-0 Yes [id number] 1{each} 1 Each Uni vers glucose 3-15 daily. Dx ity of scanning 00:00: 11.8, E [place] reader Misc 00 16.2, K Medic al 86.89 Branch flash 2019-0 Yes [id number] 1{each} 1 Each Uni vers glucose 3-15 every 10 ity of sensor Kit 00:00: () 00 days. Dx Medical 11.8, E Branch 16.2, K 86.89 flash 2019-0 Yes [id number] 1{each} 1 Each Uni vers glucose 3-15 daily. Dx ity of scanning 00:00: 11.8, E [place] reader Misc 00 16.2, K Medic al 86.89 Branch flash 2019-0 Yes [id number] 1{each} 1 Each Uni vers glucose 3-15 every 10 ity of sensor Kit 00:00: () 00 days. Dx Medical 11.8, E Branch 16.2, K 86.89 flash 2019-0 Yes [id number] 1{each} 1 Each Uni vers glucose 3-15 daily. Dx ity of scanning 00:00: 11.8, E [place] reader Misc 00 16.2, K Medic al 86.89 Branch flash 2019-0 Yes [id number] 1{each} 1 Each Uni vers glucose 3-15 every 10 ity of sensor Kit 00:00: () 00 days. Dx Medical 11.8, E Branch 16.2, K 86.89 flash 2019-0 Yes [id number] 1{each} 1 Each Uni vers glucose 3-15 daily. Dx ity of scanning 00:00: 11.8, E [place] reader Misc 00 16.2, K Medic al 86.89 Branch flash 2019-0 Yes [id number] 1{each} 1 Each Uni vers glucose 3-15 every 10 ity of sensor Kit 00:00: () 00 days. Dx Medical 11.8, E Branch 16.2, K 86.89 flash 2019-0 Yes [id number] 1{each} 1 Each Uni vers glucose 3-15 daily. Dx ity of scanning 00:00: 11.8, E [place] reader Misc 00 16.2, K Medic al 86.89 Branch flash 2019-0 Yes [id number] 1{each} 1 Each Uni vers glucose 3-15 [...] directed ity of (CONTOUR 00:00: [place] METER[place] [facility] [place] [facility] Branch Blood-Gluco Yes Use as Univ ers se Meter 8-14 directed ity of (CONTOUR 00:00: [place] METER) [facility] [place] Medical Branch Blood-Gluco Yes Use as Univ ers se Meter 8-14 directed ity of (CONTOUR 00:00: [place] METER) [facility] [place] Medical Branch Blood-Gluco Yes Use as Univ ers se Meter 8-14 directed ity of (CONTOUR 00:00: [place] METER) [facility] [place] 00 Medical Branch Blood-Gluco Yes Use as Univ ers se Meter 8-14 directed ity of (CONTOUR 00:00: [place] METER) [facility] [place] 00 Medical Branch Blood-Gluco Yes Use as Univ ers se Meter 8-14 directed ity of (CONTOUR 00:00: [place] METER) [facility] [place] 00 Medical Branch Blood-Gluco Yes Use as Univ ers se Meter 8-14 directed ity of (CONTOUR 00:00: [place] METER) [facility] [place] 00 Medical Branch Blood-Gluco Yes Use as Univ ers se Meter 8-14 directed ity of (CONTOUR 00:00: [place] METER) [facility] [place] 00 Medical Branch Blood-Gluco Yes Use as Univ ers se Meter 8-14 directed ity of (CONTOUR 00:00: [place] METER) [facility] [place] 00 Medical Branch Blood-Gluco Yes Use as Univ ers se Meter 8-14 directed ity of (CONTOUR 00:00: [place] METER) [facility] [place] 00 Medical Branch Blood-Gluco Yes Use as Univ ers se Meter 8-14 directed ity of (CONTOUR 00:00: [place] METER) [facility] [place] 00 Medical Branch Blood-Gluco Yes Use as Univ ers se Meter 8-14 directed ity of (CONTOUR 00:00: [place] METER) [facility] [place] 00 Medical Branch Blood-Gluco 0 Yes Use as Univ ers se Meter 8-14 directed ity of (CONTOUR 00:00: [place] METER) [facility] [place] 00 Medical Branch zolpidem 0 Yes 10mg QD [...] Take 1 [place] en-codeine 2-22 tablet by [facility] (TYLENOL/CO 00:00: mouth DEINE #3) 00 every 4 300-30 mg hours as per tablet needed for Pain. acetaminoph 2013-06 Yes Abscess 1{tbl} Take 1 [place] en-codeine 2-22 tablet by [facility] (TYLENOL/CO 00:00: mouth DEINE #3) 00 every 4 300-30 mg hours as per tablet needed for Pain. acetaminoph 2013-06 Yes Abscess 1{tbl} Take 1 [place] en-codeine 2-22 tablet by [facility] (TYLENOL/CO 00:00: mouth DEINE #3) 00 every 4 300-30 mg hours as per tablet needed for Pain. acetaminoph 2013-06 Yes Abscess 1{tbl} Take 1 [place] en-codeine 2-22 tablet by [facility] (TYLENOL/CO 00:00: mouth DEINE #3) 00 every 4 300-30 mg hours as per tablet needed for Pain. acetaminoph 2013-06 Yes Abscess 1{tbl} Take 1 [place] en-codeine 2-22 tablet by [facility] (TYLENOL/CO 00:00: mouth DEINE #3) 00 every [...] 3 100 unit/mL 58 times injection daily. atorvastati atorvastati No 1 Q1D atorvastat [facility] n 20 mg n 20 mg in 20 mg Medic al tablet Take tablet Take tablet 1 tablet 1 tablet Take 1 every day every day tablet by oral by oral every day route. route. by oral route. desvenlafax desvenlafax No 1 Q1D desvenlafa [facility] ine navneet xinkumar Medical succinate succinate succinate ER 25 mg ER 25 mg ER 25 mg tablet,exte tablet,exte tablet,ext nded nded ended release 24 release 24 release 24 hr Take 1 hr Take 1 hr Take 1 tablet tablet tablet every day every day every day by oral by oral by oral route. route. route. famotidine famotidine No 1 Q1D famotidine [facility] 40 mg 40 mg 40 mg Medical tablet Take tablet Take tablet 1 tablet 1 tablet Take 1 every day every day tablet by oral by oral every day route. route. by oral route. lorazepam 1 lorazepam 1 No 1 BID lorazepam [facility] mg tablet mg tablet 1 mg Medic al Take 1 Take 1 tablet tablet tablet Take 1 twice a day twice a day tablet by oral by oral twice a route. route. day by oral route. losartan 25 losartan 25 No 1 Q1D losartan [facility] mg tablet mg tablet 25 mg Medi amparo Take 1 Take 1 tablet tablet tablet Take 1 every day every day tablet by oral by oral every day route. route. by oral route. Novolog Novolog No Novolog [facility] PenFill PenFill PenFill Medica l U-100 U-100 U-100 Insulin Insulin Insulin sliding sliding sliding scale scale scale Rexulti 1 Rexulti 1 No 1 Q1D Rexulti 1 [facility] mg tablet mg tablet mg tablet Medical Take 1 Take 1 Take 1 tablet tablet tablet every day every day every day by oral by oral by oral route. route. route. Tresiba Tresiba No 40unit( Tresiba Patricia via FlexTouch FlexTouch s) FlexTouch Medical U-200 U-200 U-200 insulin 200 insulin 200 insulin unit/mL (3 unit/mL (3 200 mL) mL) unit/mL (3 subcutaneou subcutaneou mL) s pen s pen subcutaneo Inject 40 Inject 40 us pen units by units by Inject 40 subcutaneou subcutaneou units by s route. s route. subcutaneo us route. Zenpep Zenpep No 1capsul TID Zenpep [facility] 20,000 20,000 e(s) 20,000 Medical unit-63,000 unit-63,000 unit-63,00 unit-84,000 unit-84,000 0 unit unit unit-84,00 capsule,del capsule,del 0 unit ayed ayed capsule,de release release layed Take 1 Take 1 release capsule 3 capsule 3 Take 1 times a day times a day capsule 3 by oral by oral times a route. route. day by oral route. zolpidem 5 zolpidem 5 No 1 Q1D zolpidem 5 [facility] mg tablet mg tablet mg tablet Medical Take 1 Take 1 Take 1 tablet tablet tablet every day every day every day by oral by oral by oral route. route. route. Immunizations Ordered Filled Immunization Date Status Comments [facility] Immunization Name Name influenza, influenza, 2022-05-08 Completed [facility] unspecified unspecified 00:00:00 formulation formulation Pneumococcal 20 2022-03-31 Completed Universit y of Conjugate, PCV20 00:00:00 [facility] dical (Prevnar 20) Branch SARS-COV-2 COVID-19 2022-03-31 Completed Unive rsity of JASPER-SUCROSE 00:00:00 [place] Medica l VACCINE 12 YRS+, Branch BIVALENT 0.3ML, IM, (PFIZER ROGER TOP BOOSTER) Pneumococcal 20 2022-03-31 Completed Universit y of Conjugate, PCV20 00:00:00 [facility] dical (Prevnar 20) Branch SARS-COV-2 COVID-19 2022-03-31 Completed Unive rsity of JASPER-SUCROSE 00:00:00 [place] Medica l VACCINE 12 YRS+, Branch BIVALENT 0.3ML, IM, (PFIZER ROGER TOP BOOSTER) Pneumococcal 20 2022-03-31 Completed Universit y of Conjugate, PCV20 00:00:00 [facility] dical (Prevnar 20) Branch SARS-COV-2 COVID-19 2022-03-31 Completed Unive rsity of JASPER-SUCROSE 00:00:00 [place] Medica l VACCINE 12 YRS+, Branch BIVALENT 0.3ML, IM, (PFIZER ROGER TOP BOOSTER) Pneumococcal 20 2022-03-31 Completed Universit y of Conjugate, PCV20 00:00:00 [facility] dical (Prevnar 20) Branch SARS-COV-2 COVID-19 2022-03-31 [...] Unive rsity of PFIZER VACCINE 00:00:00 [facility] [place] [facility] Branch SARS-COV-2 COVID-19 2021-03-27 Completed Unive rsity of PFIZER VACCINE 00:00:00 [facility] [place] [facility] Branch SARS-COV-2 COVID-19 2021-03-27 Completed Unive rsity of PFIZER VACCINE 00:00:00 [facility] [place] [facility] Branch SARS-COV-2 COVID-19 2021-03-27 Completed Unive rsity of PFIZER VACCINE 00:00:00 [facility] [place] [facility] Branch SARS-COV-2 COVID-19 2021-03-27 Completed Unive rsity of PFIZER VACCINE 00:00:00 [facility] [place] [facility] Branch SARS-COV-2 COVID-19 2021-03-27 Completed Unive rsity of PFIZER VACCINE 00:00:00 [facility] [place] [facility] Branch SARS-COV-2 COVID-19 2021-03-27 Completed Unive rsity of PFIZER VACCINE 00:00:00 [facility] [place] [facility] Branch SARS-COV-2 COVID-19 2021-03-27 Completed Unive rsity of PFIZER VACCINE 00:00:00 [facility] [place] [facility] Branch SARS-COV-2 COVID-19 2021-03-27 Completed Unive rsity of PFIZER VACCINE 00:00:00 [facility] [place] [facility] Branch SARS-COV-2 COVID-19 2021-03-27 Completed Unive rsity of PFIZER VACCINE 00:00:00 [facility] [place] [facility] Branch SARS-COV-2 COVID-19 2021-03-27 Completed Unive rsity of PFIZER VACCINE 00:00:00 [facility] [place] [facility] Branch SARS-COV-2 COVID-19 2021-03-27 Completed Unive rsity of PFIZER VACCINE 00:00:00 [facility] [place] [facility] Branch SARS-COV-2 COVID-19 2021-03-27 Completed Unive rsity of PFIZER VACCINE 00:00:00 [facility] [place] [facility] Branch SARS-COV-2 COVID-19 2021-03-27 Completed Unive rsity of PFIZER VACCINE 00:00:00 [facility] [place] [facility] Branch SARS-COV-2 COVID-19 2021-03-27 Completed Unive rsity of PFIZER VACCINE 00:00:00 [facility] [place] [facility] Branch SARS-COV-2 COVID-19 2021-03-27 Completed Unive rsity of PFIZER VACCINE 00:00:00 [facility] [place] [facility] Branch SARS-COV-2 COVID-19 2021-03-27 Completed Unive rsity of PFIZER VACCINE 00:00:00 [facility] [place] [facility] Branch SARS-COV-2 COVID-19 2021-03-27 Completed Unive rsity of PFIZER VACCINE 00:00:00 [facility] [place] [facility] Branch SARS-COV-2 COVID-19 2021-03-27 Completed Unive rsity of PFIZER VACCINE 00:00:00 [facility] [place] [facility] Branch SARS-COV-2 COVID-19 2021-03-27 Completed Unive rsity of PFIZER VACCINE 00:00:00 [facility] [place] [facility] Branch SARS-COV-2 COVID-19 2021-03-27 Completed Unive rsity of PFIZER VACCINE 00:00:00 [facility] [place] [facility] Branch SARS-COV-2 COVID-19 2021-03-27 Completed Unive rsity of PFIZER VACCINE 00:00:00 [facility] [place] [facility] Branch SARS-COV-2 COVID-19 2021-03-27 Completed Unive rsity of PFIZER VACCINE 00:00:00 [facility] [place] [facility] Branch SARS-COV-2 COVID-19 2021-03-27 Completed Unive rsity of PFIZER VACCINE 00:00:00 [facility] [place] [facility] Branch SARS-COV-2 COVID-19 2021-03-27 Completed Unive rsity of PFIZER VACCINE 00:00:00 [facility] [place] [facility] Branch SARS-COV-2 COVID-19 2021-03-27 Completed Unive rsity of PFIZER VACCINE 00:00:00 [facility] [place] [facility] Branch SARS-COV-2 COVID-19 2021-03-27 Completed Unive rsity of PFIZER VACCINE 00:00:00 [facility] [place] [facility] Branch SARS-COV-2 COVID-19 2021-03-27 Completed Unive rsity of PFIZER VACCINE 00:00:00 [facility] [place] [facility] Branch SARS-COV-2 COVID-19 2021-03-27 Completed Unive rsity of PFIZER VACCINE 00:00:00 [facility] [place] [facility] Branch SARS-COV-2 COVID-19 2021-03-27 Completed Unive rsity of PFIZER VACCINE 00:00:00 [facility] [place] [facility] Branch SARS-COV-2 COVID-19 2021-03-27 Completed Unive rsity of PFIZER VACCINE 00:00:00 [facility] [place] [facility] Branch SARS-COV-2 COVID-19 2021-03-27 Completed Unive rsity of PFIZER VACCINE 00:00:00 [facility] [place] [facility] Branch SARS-COV-2 COVID-19 2021-03-27 Completed Unive rsity of PFIZER VACCINE 00:00:00 [facility] [place] [facility] Branch SARS-COV-2 COVID-19 2021-03-27 Completed Unive rsity of PFIZER VACCINE 00:00:00 [facility] [place] [facility] Branch SARS-COV-2 COVID-19 2021-03-27 Completed Unive rsity of PFIZER VACCINE 00:00:00 [facility] [place] [facility] Branch SARS-COV-2 COVID-19 2021-03-27 Completed Unive rsity of PFIZER VACCINE 00:00:00 [facility] [place] [facility] Branch SARS-COV-2 COVID-19 2021-03-27 Completed [facility] PFIZER VACCINE 00:00:00 [facility] SARS-COV-2 COVID-19 2021-03-27 Completed [facility] PFIZER VACCINE 00:00:00 [facility] SARS-COV-2 COVID-19 2021-03-27 Completed [facility] PFIZER VACCINE 00:00:00 [facility] SARS-COV-2 COVID-19 2021-03-27 Completed [facility] PFIZER VACCINE 00:00:00 [facility] SARS-COV-2 COVID-19 2021-03-27 Completed [facility] PFIZER VACCINE 00:00:00 [facility] SARS-COV-2 COVID-19 2021-03-27 Completed [facility] PFIZER VACCINE 00:00:00 [facility] SARS-COV-2 COVID-19 2021-03-27 Completed [facility] PFIZER VACCINE 00:00:00 [facility] SARS-COV-2 COVID-19 2021-03-27 Completed [facility] PFIZER VACCINE 00:00:00 [facility] SARS-COV-2 COVID-19 2021-03-27 Completed [facility] PFIZER VACCINE 00:00:00 [facility] SARS-COV-2 COVID-19 2021-03-27 Completed [facility] PFIZER VACCINE 00:00:00 [facility] SARS-COV-2 COVID-19 2021-03-27 Completed [facility] PFIZER VACCINE 00:00:00 [facility] SARS-COV-2 COVID-19 2021-03-27 Completed [facility] PFIZER VACCINE 00:00:00 [facility] SARS-COV-2 COVID-19 2021-03-27 Completed [facility] PFIZER VACCINE 00:00:00 [facility] SARS-COV-2 COVID-19 2021-03-27 Completed [facility] PFIZER VACCINE 00:00:00 [facility] SARS-COV-2 COVID-19 2021-03-27 Completed [facility] PFIZER VACCINE 00:00:00 [facility] SARS-COV-2 COVID-19 2021-03-27 Completed [facility] PFIZER VACCINE 00:00:00 [facility] SARS-COV-2 COVID-19 2021-03-27 Completed [facility] PFIZER VACCINE 00:00:00 [facility] SARS-COV-2 COVID-19 2021-03-27 Completed [facility] PFIZER VACCINE 00:00:00 [facility] SARS-COV-2 COVID-19 2021-03-27 Completed [facility] PFIZER VACCINE 00:00:00 [facility] SARS-COV-2 COVID-19 2021-03-27 Completed [facility] PFIZER VACCINE 00:00:00 [facility] SARS-COV-2 COVID-19 2021-03-27 Completed [facility] PFIZER VACCINE 00:00:00 [facility] SARS-COV-2 COVID-19 2021-03-27 Completed [facility] PFIZER VACCINE 00:00:00 [facility] SARS-COV-2 COVID-19 2021-03-27 Completed [facility] PFIZER VACCINE 00:00:00 [facility] TDAP 2021-03-01 Completed [facility] 00:00:00 [facility] TDAP 2021-03-01 Completed [facility] 00[facility]00:00 [facility] TDAP 2021-03-01 Completed [facility] 00[facility]00:00 [facility] TDAP 2021-03-01 Completed [facility] 00[facility]00:00 [facility] TDAP 2021-03-01 Completed [facility] 00:00:00 [facility] TDAP 2021-03-01 Completed [facility] 00:00:00 [facility] TDAP 2021-03-01 Completed [facility] 00:00:00 [facility] TDAP 2021-03-01 Completed [facility] 00:00:00 [facility] TDAP 2021-03-01 Completed [facility] 00:00:00 [facility] TDAP 2021-03-01 Completed [facility] 00:00:00 [facility] TDAP 2021-03-01 Completed [facility] 00:00:00 [facility] TDAP 2021-03-01 Completed [facility] 00:00:00 [facility] TDAP 2021-03-01 Completed [facility] 00:00:00 [facility] TDAP 2021-03-01 Completed [facility] 00:00:00 [facility] TDAP 2021-03-01 Completed [facility] 00:00:00 [facility] TDAP 2021-03-01 Completed [facility] 00:00:00 [facility] TDAP 2021-03-01 Completed [facility] 00:00:00 [facility] TDAP 2021-03-01 Completed [facility] 00:00:00 [facility] TDAP 2021-03-01 Completed [facility] 00:00:00 [facility] TDAP 2021-03-01 Completed [facility] 00:00:00 [facility] TDAP 2021-03-01 Completed [facility] 00:00:00 [facility] TD 2021-03-01 Completed [facility] 00:00:00 [facility] TD 2021-03-01 Completed [facility] 00:00:00 [facility] TD 2021-03-01 Completed [facility] 00:00:00 [facility] TD 2021-03-01 Completed [facility] 00:00:00 [facility] 2021-03-01 Completed [facility] 00:00:00 [facility] TD 2021-03-01 Completed [facility] 00:00:00 [facility] TD 2021-03-01 Completed [facility] 00:00:00 [facility] TD 2021-03-01 Completed [facility] 00:00:00 [facility] TD 2021-03-01 Completed [facility] 00:00:00 [facility] 2021-03-01 Completed [facility] 00:00:00 [facility] 2021-03-01 Completed [facility] 00:00:00 [facility] TD 2021-03-01 Completed [facility] 00:00:00 [facility] TD 2021-03-01 Completed [facility] 00:00:00 [facility] TD 2021-03-01 Completed [facility] 00:00:00 [facility] TD 2021-03-01 Completed [facility] 00:00:00 [facility] TD 2021-03-01 Completed [facility] 00:00:00 [facility] 2021-03-01 Completed [facility] 00:00:00 [facility] TD 2021-03-01 Completed [facility] 00:00:00 [facility] TD 2021-03-01 Completed [facility] 00:00:00 [facility] TD 2021-03-01 Completed [facility] 00:00:00 [facility] TD 2021-03-01 Completed [facility] 00:00:00 [facility] TD 2021-03-01 Completed [facility] 00:00:00 [facility] TD 2021-03-01 Completed [facility] 00:00:00 [facility] TD 2021-03-01 Completed [facility] 00:00:00 [facility] 2021-03-01 Completed [facility] 00:00:00 [facility] TD 2021-03-01 Completed [facility] 00:00:00 [facility] TD 2021-03-01 Completed [facility] 00:00:00 [facility] 2021-03-01 Completed [facility] 00:00:00 [facility] 2021-03-01 Completed [facility] 00:00:00 [facility] 2021-03-01 Completed [facility] 00:00:00 [facility] 2021-03-01 Completed [facility] 00:00:00 [facility] 2021-03-01 Completed [facility] 00[facility]00:00 [facility] 2021-03-01 Completed [facility] 00:00:00 [facility] 2021-03-01 Completed [facility] 00:00:00 [facility] 2021-03-01 Completed [facility] 00:00:00 [facility] 2021-03-01 Completed [facility] 00:00:00 [facility] 2021-03-01 Completed [facility] 00:00:00 [facility] 2021-03-01 Completed [facility] 00:00:00 [facility] 2021-03-01 Completed [facility] 00:00:00 [facility] 2021-03-01 Completed [facility] 00:00:00 [facility] 2021-03-01 Completed [facility] 00:00:00 [facility] 2021-03-01 Completed [facility] 00:00:00 [facility] 2021-03-01 Completed [facility] 00:00:00 [facility] 2021-03-01 Completed [facility] 00:00:00 [facility] 2021-03-01 Completed [facility] 00:00:00 [facility] 2021-03-01 Completed [facility] 00:00:00 [facility] 2021-03-01 Completed [facility] 00:00:00 [facility] 2021-03-01 Completed [facility] 00:00:00 [facility] Pfizer COVID-19 Pfizer COVID-19 2021-01-21 Completed Vaccine Vaccine 00:00:00 SARS-COV-2 COVID-19 2020-07-20 Completed [facility] PFIZER VACCINE 00:00:00 [facility] SARS-COV-2 COVID-19 2020-07-20 Completed [facility] PFIZER VACCINE 00:00:00 [facility] SARS-COV-2 COVID-19 2020-07-20 Completed [facility] PFIZER VACCINE 00:00:00 [facility] SARS-COV-2 COVID-19 2020-07-20 Completed [facility] PFIZER VACCINE 00:00:00 [facility] SARS-COV-2 COVID-19 2020-07-20 Completed [facility] PFIZER VACCINE 00:00:00 [facility] SARS-COV-2 COVID-19 2020-07-20 Completed [facility] PFIZER VACCINE 00:00:00 [facility] SARS-COV-2 COVID-19 2020-07-20 Completed [facility] PFIZER VACCINE 00:00:00 [facility] SARS-COV-2 COVID-19 2020-07-20 Completed [facility] PFIZER VACCINE 00:00:00 [facility] SARS-COV-2 COVID-19 2020-07-20 Completed [facility] PFIZER VACCINE 00:00:00 [facility] SARS-COV-2 COVID-19 2020-07-20 Completed [facility] PFIZER VACCINE 00:00:00 [facility] SARS-COV-2 COVID-19 2020-07-20 Completed [facility] PFIZER VACCINE 00:00:00 [facility] SARS-COV-2 COVID-19 2020-07-20 Completed [facility] PFIZER VACCINE 00:00:00 [facility] SARS-COV-2 COVID-19 2020-07-20 Completed [facility] PFIZER VACCINE 00:00:00 [facility] SARS-COV-2 COVID-19 2020-07-20 Completed [facility] PFIZER VACCINE 00:00:00 [facility] SARS-COV-2 COVID-19 2020-07-20 Completed [facility] PFIZER VACCINE 00:00:00 [facility] SARS-COV-2 COVID-19 2020-07-20 Completed [facility] PFIZER VACCINE 00:00:00 [facility] SARS-COV-2 COVID-19 2020-07-20 Completed [facility] PFIZER VACCINE 00:00:00 [facility] SARS-COV-2 COVID-19 2020-07-20 Completed [facility] PFIZER VACCINE 00:00:00 [facility] SARS-COV-2 COVID-19 2020-07-20 Completed [facility] PFIZER VACCINE 00:00:00 [facility] SARS-COV-2 COVID-19 2020-07-20 Completed [facility] PFIZER VACCINE 00:00:00 [facility] SARS-COV-2 COVID-19 2020-07-20 Completed [facility] PFIZER VACCINE 00:00:00 [facility] SARS-COV-2 COVID-19 2020-07-20 Completed [facility] PFIZER VACCINE 00:00:00 [facility] SARS-COV-2 COVID-19 2020-07-20 Completed [facility] PFIZER VACCINE 00:00:00 [facility] SARS-COV-2 COVID-19 2020-07-20 Completed [facility] PFIZER VACCINE 00:00:00 [facility] SARS-COV-2 COVID-19 2020-07-20 Completed [facility] PFIZER VACCINE 00:00:00 [facility] SARS-COV-2 COVID-19 2020-07-20 Completed [facility] PFIZER VACCINE 00:00:00 [facility] SARS-COV-2 COVID-19 2020-07-20 Completed [facility] PFIZER VACCINE 00:00:00 [facility] SARS-COV-2 COVID-19 2020-07-20 Completed [facility] PFIZER VACCINE 00:00:00 [facility] SARS-COV-2 COVID-19 2020-07-20 Completed [facility] PFIZER VACCINE 00:00:00 [facility] SARS-COV-2 COVID-19 2020-07-20 Completed [facility] PFIZER VACCINE 00:00:00 [facility] SARS-COV-2 COVID-19 2020-07-20 Completed [facility] PFIZER VACCINE 00:00:00 [facility] SARS-COV-2 COVID-19 2020-07-20 Completed [facility] PFIZER VACCINE 00:00:00 [facility] SARS-COV-2 COVID-19 2020-07-20 Completed [facility] PFIZER VACCINE 00:00:00 [facility] SARS-COV-2 COVID-19 2020-07-20 Completed [facility] PFIZER VACCINE 00:00:00 [facility] SARS-COV-2 COVID-19 2020-07-20 Completed [facility] PFIZER VACCINE 00:00:00 [facility] SARS-COV-2 COVID-19 2020-07-20 Completed [facility] PFIZER VACCINE 00:00:00 [facility] SARS-COV-2 COVID-19 2020-07-20 Completed [facility] PFIZER VACCINE 00:00:00 [facility] SARS-COV-2 COVID-19 2020-07-20 Completed [facility] PFIZER VACCINE 00:00:00 [facility] SARS-COV-2 COVID-19 2020-07-20 Completed [facility] PFIZER VACCINE 00:00:00 [facility] SARS-COV-2 COVID-19 2020-07-20 Completed [facility] PFIZER VACCINE 00:00:00 [facility] SARS-COV-2 COVID-19 2020-07-20 Completed [facility] PFIZER VACCINE 00:00:00 [facility] SARS-COV-2 COVID-19 2020-07-20 Completed [facility] PFIZER VACCINE 00:00:00 [facility] SARS-COV-2 COVID-19 2020-07-20 Completed [facility] PFIZER VACCINE 00:00:00 [facility] SARS-COV-2 COVID-19 2020-07-20 Completed [facility] PFIZER VACCINE 00:00:00 [facility] SARS-COV-2 COVID-19 2020-07-20 Completed [facility] PFIZER VACCINE 00:00:00 [facility] SARS-COV-2 COVID-19 2020-07-20 Completed [facility] PFIZER VACCINE 00:00:00 [facility] SARS-COV-2 COVID-19 2020-07-20 Completed [facility] PFIZER VACCINE 00:00:00 [facility] SARS-COV-2 COVID-19 2020-07-20 Completed [facility] PFIZER VACCINE 00:00:00 [facility] SARS-COV-2 COVID-19 2020-07-20 Completed [facility] PFIZER VACCINE 00:00:00 [facility] SARS-COV-2 COVID-19 2020-07-20 Completed [facility] PFIZER VACCINE 00:00:00 [facility] SARS-COV-2 COVID-19 2020-07-20 Completed [facility] PFIZER VACCINE 00:00:00 [facility] SARS-COV-2 COVID-19 2020-07-20 Completed [facility] PFIZER VACCINE 00:00:00 [facility] SARS-COV-2 COVID-19 2020-07-20 Completed [facility] PFIZER VACCINE 00:00:00 [facility] SARS-COV-2 COVID-19 2020-07-20 Completed [facility] PFIZER VACCINE 00:00:00 [facility] SARS-COV-2 COVID-19 2020-07-20 Completed [facility] PFIZER VACCINE 00:00:00 [facility] SARS-COV-2 COVID-19 2020-07-20 Completed [facility] PFIZER VACCINE 00:00:00 [facility] SARS-COV-2 COVID-19 2020-07-20 Completed [facility] PFIZER VACCINE 00:00:00 [facility] SARS-COV-2 COVID-19 2020-07-20 Completed [facility] PFIZER VACCINE 00:00:00 [facility] SARS-COV-2 COVID-19 2020-07-20 Completed [facility] PFIZER VACCINE 00:00:00 [facility] SARS-COV-2 COVID-19 2020-07-20 Completed [facility] PFIZER VACCINE 00:00:00 [facility] SARS-COV-2 COVID-19 2020-07-20 Completed [facility] PFIZER VACCINE 00:00:00 [facility] SARS-COV-2 COVID-19 2020-07-20 Completed [facility] PFIZER VACCINE 00:00:00 [facility] SARS-COV-2 COVID-19 2020-07-20 Completed [facility] PFIZER VACCINE 00:00:00 [facility] SARS-COV-2 COVID-19 2020-07-20 Completed [facility] PFIZER VACCINE 00:00:00 [facility] SARS-COV-2 COVID-19 2020-07-20 Completed [facility] PFIZER VACCINE 00:00:00 [facility] SARS-COV-2 COVID-19 2020-07-20 Completed [facility] PFIZER VACCINE 00:00:00 [facility] SARS-COV-2 COVID-19 2020-07-20 Completed [facility] PFIZER VACCINE 00:00:00 [facility] SARS-COV-2 COVID-19 2020-07-20 Completed [facility] PFIZER VACCINE 00:00:00 [facility] SARS-COV-2 COVID-19 2020-07-20 Completed [facility] PFIZER VACCINE 00:00:00 [facility] Pfizer COVID-19 Pfizer COVID-19 2020-07-20 Completed Vaccine Vaccine 00:00:00 SARS-COV-2 COVID-19 2020-06-29 Completed [facility] PFIZER VACCINE 00:00:00 [facility] SARS-COV-2 COVID-19 2020-06-29 Completed [facility] PFIZER VACCINE 00:00:00 [facility] SARS-COV-2 COVID-19 2020-06-29 Completed [facility] PFIZER VACCINE 00:00:00 [facility] SARS-COV-2 COVID-19 2020-06-29 Completed [facility] PFIZER VACCINE 00:00:00 [facility] SARS-COV-2 COVID-19 2020-06-29 Completed [facility] PFIZER VACCINE 00:00:00 [facility] SARS-COV-2 COVID-19 2020-06-29 Completed [facility] PFIZER VACCINE 00:00:00 [facility] SARS-COV-2 COVID-19 2020-06-29 Completed [facility] PFIZER VACCINE 00:00:00 [facility] SARS-COV-2 COVID-19 2020-06-29 Completed [facility] PFIZER VACCINE 00:00:00 [facility] SARS-COV-2 COVID-19 2020-06-29 Completed [facility] PFIZER VACCINE 00:00:00 [facility] SARS-COV-2 COVID-19 2020-06-29 Completed [facility] PFIZER VACCINE 00:00:00 [facility] SARS-COV-2 COVID-19 2020-06-29 Completed [facility] PFIZER VACCINE 00:00:00 [facility] SARS-COV-2 COVID-19 2020-06-29 Completed [facility] PFIZER VACCINE 00:00:00 [facility] SARS-COV-2 COVID-19 2020-06-29 Completed [facility] PFIZER VACCINE 00:00:00 [facility] SARS-COV-2 COVID-19 2020-06-29 Completed [facility] PFIZER VACCINE 00:00:00 [facility] SARS-COV-2 COVID-19 2020-06-29 Completed [facility] PFIZER VACCINE 00:00:00 [facility] SARS-COV-2 COVID-19 2020-06-29 Completed [facility] PFIZER VACCINE 00:00:00 [facility] SARS-COV-2 COVID-19 2020-06-29 Completed [facility] PFIZER VACCINE 00:00:00 [facility] SARS-COV-2 COVID-19 2020-06-29 Completed [facility] PFIZER VACCINE 00:00:00 [facility] SARS-COV-2 COVID-19 2020-06-29 Completed [facility] PFIZER VACCINE 00:00:00 [facility] SARS-COV-2 COVID-19 2020-06-29 Completed [facility] PFIZER VACCINE 00:00:00 [facility] SARS-COV-2 COVID-19 2020-06-29 Completed [facility] PFIZER VACCINE 00:00:00 [facility] SARS-COV-2 COVID-19 2020-06-29 Completed [facility] PFIZER VACCINE 00:00:00 [facility] SARS-COV-2 COVID-19 2020-06-29 Completed [facility] PFIZER VACCINE 00:00:00 [facility] SARS-COV-2 COVID-19 2020-06-29 Completed [facility] PFIZER VACCINE 00:00:00 [facility] SARS-COV-2 COVID-19 2020-06-29 Completed [facility] PFIZER VACCINE 00:00:00 [facility] SARS-COV-2 COVID-19 2020-06-29 Completed [facility] PFIZER VACCINE 00:00:00 [facility] SARS-COV-2 COVID-19 2020-06-29 Completed [facility] PFIZER VACCINE 00:00:00 [facility] SARS-COV-2 COVID-19 2020-06-29 Completed [facility] PFIZER VACCINE 00:00:00 [facility] SARS-COV-2 COVID-19 2020-06-29 Completed [facility] PFIZER VACCINE 00:00:00 [facility] SARS-COV-2 COVID-19 2020-06-29 Completed [facility] PFIZER VACCINE 00:00:00 [facility] SARS-COV-2 COVID-19 2020-06-29 Completed [facility] PFIZER VACCINE 00:00:00 [facility] SARS-COV-2 COVID-19 2020-06-29 Completed [facility] PFIZER VACCINE 00:00:00 [facility] SARS-COV-2 COVID-19 2020-06-29 Completed [facility] PFIZER VACCINE 00:00:00 [facility] SARS-COV-2 COVID-19 2020-06-29 Completed [facility] PFIZER VACCINE 00:00:00 [facility] SARS-COV-2 COVID-19 2020-06-29 Completed [facility] PFIZER VACCINE 00:00:00 [facility] SARS-COV-2 COVID-19 2020-06-29 Completed [facility] PFIZER VACCINE 00:00:00 [facility] SARS-COV-2 COVID-19 2020-06-29 Completed [facility] PFIZER VACCINE 00:00:00 [facility] SARS-COV-2 COVID-19 2020-06-29 Completed [facility] PFIZER VACCINE 00:00:00 [facility] SARS-COV-2 COVID-19 2020-06-29 Completed [facility] PFIZER VACCINE 00:00:00 [facility] SARS-COV-2 COVID-19 2020-06-29 Completed [facility] PFIZER VACCINE 00:00:00 [facility] SARS-COV-2 COVID-19 2020-06-29 Completed [facility] PFIZER VACCINE 00:00:00 [facility] SARS-COV-2 COVID-19 2020-06-29 Completed [facility] PFIZER VACCINE 00:00:00 [facility] SARS-COV-2 COVID-19 2020-06-29 Completed [facility] PFIZER VACCINE 00:00:00 [facility] SARS-COV-2 COVID-19 2020-06-29 Completed [facility] PFIZER VACCINE 00:00:00 [facility] SARS-COV-2 COVID-19 2020-06-29 Completed [facility] PFIZER VACCINE 00:00:00 [facility] SARS-COV-2 COVID-19 2020-06-29 Completed [facility] PFIZER VACCINE 00:00:00 [facility] SARS-COV-2 COVID-19 2020-06-29 Completed [facility] PFIZER VACCINE 00:00:00 [facility] SARS-COV-2 COVID-19 2020-06-29 Completed [facility] PFIZER VACCINE 00:00:00 [facility] SARS-COV-2 COVID-19 2020-06-29 Completed [facility] PFIZER VACCINE 00:00:00 [facility] SARS-COV-2 COVID-19 2020-06-29 Completed [facility] PFIZER VACCINE 00:00:00 [facility] SARS-COV-2 COVID-19 2020-06-29 Completed [facility] PFIZER VACCINE 00:00:00 [facility] SARS-COV-2 COVID-19 2020-06-29 Completed [facility] PFIZER VACCINE 00:00:00 [facility] SARS-COV-2 COVID-19 2020-06-29 Completed [facility] PFIZER VACCINE 00:00:00 [facility] SARS-COV-2 COVID-19 2020-06-29 Completed [facility] PFIZER VACCINE 00:00:00 [facility] SARS-COV-2 COVID-19 2020-06-29 Completed [facility] PFIZER VACCINE 00:00:00 [facility] SARS-COV-2 COVID-19 2020-06-29 Completed [facility] PFIZER VACCINE 00:00:00 [facility] SARS-COV-2 COVID-19 2020-06-29 Completed [facility] PFIZER VACCINE 00:00:00 [facility] SARS-COV-2 COVID-19 2020-06-29 Completed [facility] PFIZER VACCINE 00:00:00 [facility] SARS-COV-2 COVID-19 2020-06-29 Completed [facility] PFIZER VACCINE 00:00:00 [facility] SARS-COV-2 COVID-19 2020-06-29 Completed [facility] PFIZER VACCINE 00:00:00 [facility] SARS-COV-2 COVID-19 2020-06-29 Completed [facility] PFIZER VACCINE [facility]:00 [facility] [facility] SARS-COV-2 COVID-19 2020-06-29 Completed [facility] PFIZER VACCINE 00:00:00 [facility] SARS-COV-2 COVID-19 2020-06-29 Completed [facility] PFIZER VACCINE 00:00:00 [facility] SARS-COV-2 COVID-19 2020-06-29 Completed [facility] of PFIZER VACCINE 00:00:00 [facility] SARS-COV-2 COVID-19 2020-06-29 Completed [facility] of PFIZER VACCINE 00:00:00 [facility] SARS-COV-2 COVID-19 2020-06-29 Completed [facility] of PFIZER VACCINE 00:00:00 [facility] SARS-COV-2 COVID-19 2020-06-29 Completed [facility] of PFIZER VACCINE 00:00:00 [facility] SARS-COV-2 COVID-19 2020-06-29 Completed [facility] of PFIZER VACCINE 00:00:00 [facility] SARS-COV-2 COVID-19 2020-06-29 Completed [facility] of PFIZER VACCINE 00:00:00 [facility] Pfizer COVID-19 Pfizer COVID-19 2020-06-29 Completed Vaccine Vaccine 00:00:00 Influenza Virus 2018-04-12 Completed [facility]it [facility] of Vaccine Quad .5 mL 00:00:00 [facility] Influenza Virus 2018-04-12 Completed [facility] of Vaccine Quad .5 mL 00:00:00 [facility] 6[facility] Influenza Virus [...] y of Vaccine Quad IM 3+ 00:00:00 [facility] Influenza Virus 2014-04-12 Completed [facility]it y of Vaccine Quad IM 3+ 00:00:00 [facility] Branch Influenza Virus 2014-04-12 Completed [facility] of Vaccine Quad IM 3+ 00:00:00 [facility] Branch Influenza Virus 2014-04-12 Completed [facility] of Vaccine Quad IM 3+ 00:00:00 [facility] Influenza Virus 2014-04-12 Completed [facility] of Vaccine Quad IM 3+ 00:00:00 [facility] Influenza Virus 2014-04-12 Completed [facility] of Vaccine Quad IM 3+ 00:00:00 [facility] Influenza Virus 2014-04-12 Completed [facility] of Vaccine Quad IM 3+ 00:00:00 [facility] Influenza Virus 2014-04-12 Completed [facility] of Vaccine Quad IM 3+ 00:00:00 [facility] Influenza Virus 2014-04-12 Completed [facility] of Vaccine Quad IM 3+ 00:00:00 [facility] Influenza Virus 2014-04-12 Completed [facility] of Vaccine Quad IM 3+ 00:00:00 [facility] Influenza Virus 2014-04-12 Completed [facility] of Vaccine Quad IM 3+ 00:00:00 [facility] Influenza Virus 2014-04-12 Completed [facility] of Vaccine Quad IM 3+ 00:00:00 [facility] Influenza Virus 2014-04-12 Completed [facility] of Vaccine Quad IM 3+ 00:00:00 [facility] Influenza Virus 2014-04-12 Completed [facility] of Vaccine Quad IM 3+ 00:00:00 [facility] Influenza Virus 2014-04-12 Completed [facility] of Vaccine Quad IM 3+ 00:00:00 [facility] Influenza Virus 2014-04-12 Completed [facility] of Vaccine Quad IM 3+ 00:00:00 [facility] Influenza Virus 2014-04-12 Completed [facility] of Vaccine Quad IM 3+ 00:00:00 [facility] Influenza Virus 2014-04-12 Completed [facility] of Vaccine Quad IM 3+ 00:00:00 [facility] Influenza Virus 2014-04-12 Completed [facility] of Vaccine Quad IM 3+ 00:00:00 [facility] Influenza Virus 2014-04-12 Completed [facility] of Vaccine Quad IM 3+ 00:00:00 [facility] Influenza Virus 2014-04-12 Completed [facility] of Vaccine Quad IM 3+ 00:00:00 [facility] Influenza Virus 2014-04-12 Completed [facility] of Vaccine Quad IM 3+ 00:00:00 [facility] Influenza Virus 2014-04-12 Completed [facility] of Vaccine Quad IM 3+ 00:00:00 [facility] Influenza Virus 2014-04-12 Completed [facility] of Vaccine Quad IM 3+ 00:00:00 [facility] Influenza Virus 2014-04-12 Completed [facility] of Vaccine Quad IM 3+ 00:00:00 [facility] Influenza Virus 2014-04-12 Completed [facility] of Vaccine Quad IM 3+ 00:00:00 [facility] Influenza Virus 2014-04-12 Completed [facility] of Vaccine Quad IM 3+ 00:00:00 [facility] Influenza Virus 2014-04-12 Completed [facility] of Vaccine Quad IM 3+ 00:00:00 [facility] Influenza Virus 2014-04-12 Completed [facility] of Vaccine Quad IM 3+ 00:00:00 [facility] Influenza Virus 2014-04-12 Completed [facility] of Vaccine Quad IM 3+ 00:00:00 [facility] Influenza Virus 2014-04-12 Completed [facility] of Vaccine Quad IM 3+ 00:00:00 [facility] Influenza Virus 2014-04-12 Completed [facility] of Vaccine Quad IM 3+ 00:00:00 [facility] Influenza Virus 2014-04-12 Completed [facility] of Vaccine Quad IM 3+ 00:00:00 [facility] Influenza Virus 2014-04-12 Completed [facility] of Vaccine Quad IM 3+ 00:00:00 [facility] Influenza Virus 2014-04-12 Completed [facility] of Vaccine Quad IM 3+ 00:00:00 [facility] Influenza Virus 2014-04-12 Completed [facility] of Vaccine Quad IM 3+ 00:00:00 [facility] Influenza Virus 2014-04-12 Completed [facility] of Vaccine Quad IM 3+ 00:00:00 [facility] Influenza Virus 2014-04-12 Completed [facility] of Vaccine Quad IM 3+ 00:00:00 [facility] Influenza Virus 2014-04-12 Completed [facility] of Vaccine Quad IM 3+ 00:00:00 [facility] Influenza Virus 2014-04-12 Completed [facility] of Vaccine Quad IM 3+ 00:00:00 [facility] Influenza Virus 2014-04-12 Completed [facility] of Vaccine Quad IM 3+ 00:00:00 [facility] Influenza Virus 2014-04-12 Completed [facility] of Vaccine Quad IM 3+ 00:00:00 [facility] Influenza Virus 2014-04-12 Completed [facility] of Vaccine Quad IM 3+ 00:00:00 [facility] Influenza Virus 2014-04-12 Completed [facility] of Vaccine Quad IM 3+ 00:00:00 [facility] Influenza Virus 2014-04-12 Completed [facility] of Vaccine Quad IM 3+ 00:00:00 [facility] Influenza Virus 2014-04-12 Completed [facility] of Vaccine Quad IM 3+ 00:00:00 [facility] Influenza Virus 2014-04-12 Completed [facility] of Vaccine Quad IM 3+ 00:00:00 [facility] Influenza Virus 2014-04-12 Completed [facility] of Vaccine Quad IM 3+ 00:00:00 [facility] Influenza Virus 2014-04-12 Completed [facility] of Vaccine Quad IM 3+ 00:00:00 [facility] Influenza Virus 2014-04-12 Completed [facility] of Vaccine Quad IM 3+ 00:00:00 [facility] Influenza Virus 2014-04-12 Completed [facility] of Vaccine Quad IM 3+ 00:00:00 [facility] Influenza Virus 2014-04-12 Completed [facility] of Vaccine Quad IM 3+ 00:00:00 [facility] Influenza Virus 2014-04-12 Completed [facility] of Vaccine Quad IM 3+ 00:00:00 [facility] Influenza Virus 2014-04-12 Completed [facility] of Vaccine Quad IM 3+ 00:00:00 [facility] Influenza Virus 2014-04-12 Completed [facility] of Vaccine Quad IM 3+ 00:00:00 [facility] Influenza Virus 2014-04-12 Completed [facility] of Vaccine Quad IM 3+ 00:00:00 [facility] Influenza Virus 2014-04-12 Completed [facility] of Vaccine Quad IM 3+ 00:00:00 [facility] Influenza Virus 2014-04-12 Completed [facility] of Vaccine Quad IM 3+ 00:00:00 [facility] Influenza Virus 2014-04-12 Completed [facility] of Vaccine Quad IM 3+ 00:00:00 [facility] Influenza Virus 2014-04-12 Completed [facility] of Vaccine Quad IM 3+ 00:00:00 [facility] Influenza Virus 2014-04-12 Completed [facility] of Vaccine Quad IM 3+ 00:00:00 [facility] Influenza Virus 2014-04-12 Completed [facility] of Vaccine Quad IM 3+ 00:00:00 [facility] Influenza Virus 2014-04-12 Completed [facility] of Vaccine Quad IM 3+ 00:00:00 [facility] Influenza Virus 2014-04-12 Completed [facility] of Vaccine Quad IM 3+ 00:00:00 [facility] Influenza Virus 2014-04-12 Completed [facility] of Vaccine Quad IM 3+ 00:00:00 [facility] Influenza Virus 2014-04-12 Completed [facility] of Vaccine Quad IM 3+ 00:00:00 [facility] Influenza Virus 2014-04-12 Completed [facility] of Vaccine Quad IM 3+ 00:00:00 [facility] Influenza Virus 2014-04-12 Completed [facility] of Vaccine Quad IM 3+ 00:00:00 [facility] Influenza Virus 2014-04-12 Completed [facility] of Vaccine Quad IM 3+ 00:00:00 [facility] Pneumococcal 2013-04-22 Completed [facility] o f Polysaccharide, 00:00:00 [facility] PPSV23 (PNEUMOVAX) Branch Influenza Virus 2013-04-22 Completed [facility] of Vaccine (3+ yrs) 00:00:00 [facility] Pneumococcal 2013-04-22 Completed University o f Polysaccharide, 00:00:00 [facility] PPSV23 (PNEUMOVAX) Branch Influenza Virus 2013-04-22 Completed [facility] of Vaccine (3+ yrs) 00:00:00 [facility] Pneumococcal 2013-04-22 Completed [facility] o f Polysaccharide, 00:00:00 [facility] PPSV23 (PNEUMOVAX) Branch Influenza Virus 2013-04-22 Completed [facility] of Vaccine (3+ yrs) 00:00:00 [facility] Pneumococcal 2013-04-22 Completed [facility] o f Polysaccharide, 00:00:00 [facility] PPSV23 (PNEUMOVAX) Branch Influenza Virus 2013-04-22 Completed [facility] of Vaccine (3+ yrs) 00:00:00 [facility] Pneumococcal 2013-04-22 Completed [facility] o f Polysaccharide, 00:00:00 [facility] PPSV23 (PNEUMOVAX) Branch Influenza Virus 2013-04-22 Completed [facility] of Vaccine (3+ yrs) 00:00:00 [facility] Pneumococcal 2013-04-22 Completed [facility] o f Polysaccharide, 00:00:00 [facility] PPSV23 (PNEUMOVAX) Branch Influenza Virus 2013-04-22 Completed [facility] of Vaccine (3+ yrs) 00:00:00 [facility] Pneumococcal 2013-04-22 Completed [facility] o f Polysaccharide, 00:00:00 [facility] PPSV23 (PNEUMOVAX) Branch Influenza Virus 2013-04-22 Completed [facility] of Vaccine (3+ yrs) 00:00:00 [facility] Pneumococcal 2013-04-22 Completed [facility] o f Polysaccharide, 00:00:00 [facility] PPSV23 (PNEUMOVAX) Branch Influenza Virus 2013-04-22 Completed [facility] of Vaccine (3+ yrs) 00:00:00 [facility] Pneumococcal 2013-04-22 Completed [facility] o f Polysaccharide, 00:00:00 [facility] PPSV23 (PNEUMOVAX) Branch Influenza Virus 2013-04-22 Completed [facility] of Vaccine (3+ yrs) 00:00:00 [facility] Pneumococcal 2013-04-22 Completed [facility] o f Polysaccharide, 00:00:00 [facility] PPSV23 (PNEUMOVAX) Branch Influenza Virus 2013-04-22 Completed [facility] of Vaccine (3+ yrs) 00:00:00 [facility] Pneumococcal 2013-04-22 Completed [facility] o f Polysaccharide, 00:00:00 [facility] PPSV23 (PNEUMOVAX) Branch Influenza Virus 2013-04-22 Completed [facility] of Vaccine (3+ yrs) 00:00:00 [facility] Pneumococcal 2013-04-22 Completed [facility] o f Polysaccharide, 00:00:00 [facility] PPSV23 (PNEUMOVAX) Branch Influenza Virus 2013-04-22 Completed [facility] of Vaccine (3+ yrs) 00:00:00 [facility] Pneumococcal 2013-04-22 Completed [facility] o f Polysaccharide, 00:00:00 [facility] PPSV23 (PNEUMOVAX) Branch Influenza Virus 2013-04-22 Completed [facility] of Vaccine (3+ yrs) 00:00:00 [facility] Pneumococcal 2013-04-22 Completed [facility] o f Polysaccharide, 00:00:00 [facility] PPSV23 (PNEUMOVAX) Branch Influenza Virus 2013-04-22 Completed [facility] y of Vaccine (3+ yrs) 00:00:00 [facility] dical Branch Pneumococcal 2013-04-22 Completed University o f Polysaccharide, 00:00:00 [facility] PPSV23 (PNEUMOVAX) Branch Influenza Virus 2013-04-22 Completed [facility] of Vaccine (3+ yrs) 00:00:00 [facility] Pneumococcal 2013-04-22 Completed [facility] o f Polysaccharide, 00:00:00 [facility] PPSV23 (PNEUMOVAX) Branch Influenza Virus 2013-04-22 Completed [facility] of Vaccine (3+ yrs) 00:00:00 [facility] Pneumococcal 2013-04-22 Completed [facility] o f Polysaccharide, 00:00:00 [facility] PPSV23 (PNEUMOVAX) Branch Influenza Virus 2013-04-22 Completed [facility] of Vaccine (3+ yrs) 00:00:00 [facility] Pneumococcal 2013-04-22 Completed [facility] o f Polysaccharide, 00:00:00 [facility] PPSV23 (PNEUMOVAX) Branch Influenza Virus 2013-04-22 Completed [facility] of Vaccine (3+ yrs) 00:00:00 [facility] Pneumococcal 2013-04-22 Completed [facility] o f Polysaccharide, 00:00:00 [facility] PPSV23 (PNEUMOVAX) Branch Influenza Virus 2013-04-22 Completed [facility] of Vaccine (3+ yrs) 00:00:00 [facility] Pneumococcal 2013-04-22 Completed [facility] o f Polysaccharide, 00:00:00 [facility] PPSV23 (PNEUMOVAX) Branch Influenza Virus 2013-04-22 Completed [facility] of Vaccine (3+ yrs) 00:00:00 [facility] Pneumococcal 2013-04-22 Completed [facility] o f Polysaccharide, 00:00:00 [facility] PPSV23 (PNEUMOVAX) Branch Influenza Virus 2013-04-22 Completed [facility] of Vaccine (3+ yrs) 00:00:00 [facility] Pneumococcal 2013-04-22 Completed [facility] o f Polysaccharide, 00:00:00 [facility] PPSV23 (PNEUMOVAX) Branch Influenza Virus 2013-04-22 Completed [facility] of Vaccine (3+ yrs) 00:00:00 [facility] Pneumococcal 2013-04-22 Completed [facility] o f Polysaccharide, 00:00:00 [facility] PPSV23 (PNEUMOVAX) Branch Influenza Virus 2013-04-22 Completed [facility] y of Vaccine (3+ yrs) 00:00:00 [facility] dical Branch Pneumococcal 2013-04-22 Completed [facility] o f Polysaccharide, 00:00:00 [facility] PPSV23 (PNEUMOVAX) Branch Influenza Virus 2013-04-22 Completed [facility] of Vaccine (3+ yrs) 00:00:00 [facility] dical Branch Pneumococcal 2013-04-22 Completed [facility] o f Polysaccharide, 00:00:00 [facility] PPSV23 (PNEUMOVAX) Branch Influenza Virus 2013-04-22 Completed [facility] of Vaccine (3+ yrs) 00:00:00 [facility] Pneumococcal 2013-04-22 Completed University o f Polysaccharide, 00:00:00 [facility] ical PPSV23 (PNEUMOVAX) Branch Influenza Virus 2013-04-22 Completed [facility]it y of Vaccine (3+ yrs) 00:00:00 [facility] Pneumococcal 2013-04-22 Completed [facility] o f Polysaccharide, 00:00:00 [facility] ical PPSV23 (PNEUMOVAX) Branch Influenza Virus 2013-04-22 Completed [facility] y of Vaccine (3+ yrs) 00:00:00 [facility] Pneumococcal 2013-04-22 Completed [facility] o f Polysaccharide, 00:00:00 [facility] ical PPSV23 (PNEUMOVAX) Branch Influenza Virus 2013-04-22 Completed [facility] of Vaccine (3+ yrs) 00:00:00 [facility] Pneumococcal 2013-04-22 Completed [facility] o f Polysaccharide, 00:00:00 [facility] ical PPSV23 (PNEUMOVAX) Branch Influenza Virus 2013-04-22 Completed [facility] y of Vaccine (3+ yrs) 00:00:00 [facility] Pneumococcal 2013-04-22 Completed [facility] o f Polysaccharide, 00:00:00 [facility] ical PPSV23 (PNEUMOVAX) Branch Influenza Virus 2013-04-22 Completed [facility] of Vaccine (3+ yrs) 00:00:00 [facility] Pneumococcal 2013-04-22 Completed [facility] o f Polysaccharide, 00:00:00 [facility] PPSV23 (PNEUMOVAX) Branch Influenza Virus 2013-04-22 Completed [facility] y of Vaccine (3+ yrs) 00:00:00 [facility] dical Branch Pneumococcal 2013-04-22 Completed [facility] o f Polysaccharide, 00:00:00 [facility] PPSV23 (PNEUMOVAX) Branch Influenza Virus 2013-04-22 Completed [facility] of Vaccine (3+ yrs) 00:00:00 [facility] Pneumococcal 2013-04-22 Completed [facility] o f Polysaccharide, 00:00:00 [facility] PPSV23 (PNEUMOVAX) Branch Influenza Virus 2013-04-22 Completed [facility] of Vaccine (3+ yrs) 00:00:00 [facility] Pneumococcal 2013-04-22 Completed [facility] o f Polysaccharide, 00:00:00 [facility] PPSV23 (PNEUMOVAX) Branch Influenza Virus 2013-04-22 Completed [facility] of Vaccine (3+ yrs) 00:00:00 [facility] Pneumococcal 2013-04-22 Completed [facility] o f Polysaccharide, 00:00:00 [facility] PPSV23 (PNEUMOVAX) Branch Influenza Virus 2013-04-22 Completed [facility] of Vaccine (3+ yrs) 00:00:00 [facility] Pneumococcal 2013-04-22 Completed [facility] o f Polysaccharide, 00:00:00 [facility] PPSV23 (PNEUMOVAX) Branch Influenza Virus 2013-04-22 Completed [facility] of Vaccine (3+ yrs) 00:00:00 [facility] Pneumococcal 2013-04-22 Completed [facility] o f Polysaccharide, 00:00:00 [facility] PPSV23 (PNEUMOVAX) Branch Influenza Virus 2013-04-22 Completed [facility] of Vaccine (3+ yrs) 00:00:00 [facility] Pneumococcal 2013-04-22 Completed [facility] o f Polysaccharide, 00:00:00 [facility] PPSV23 (PNEUMOVAX) Branch Influenza Virus 2013-04-22 Completed [facility] of Vaccine (3+ yrs) 00:00:00 [facility] Pneumococcal 2013-04-22 Completed [facility] o f Polysaccharide, 00:00:00 [facility] PPSV23 (PNEUMOVAX) Branch Influenza Virus 2013-04-22 Completed [facility] of Vaccine (3+ yrs) 00:00:00 [facility] Pneumococcal 2013-04-22 Completed [facility] o f Polysaccharide, 00:00:00 [facility] PPSV23 (PNEUMOVAX) Branch Influenza Virus 2013-04-22 Completed [facility] y of Vaccine (3+ yrs) 00:00:00 [facility] dical Branch Pneumococcal 2013-04-22 Completed [facility] o f Polysaccharide, 00:00:00 [facility] PPSV23 (PNEUMOVAX) Branch Influenza Virus 2013-04-22 Completed [facility] y of Vaccine (3+ yrs) 00:00:00 [facility] d[facility] Branch Pneumococcal 2013-04-22 Completed [facility] o f Polysaccharide, 00:00:00 [facility] PPSV23 (PNEUMOVAX) Branch Influenza Virus 2013-04-22 Completed [facility] of Vaccine (3+ yrs) 00:00:00 [facility] Pneumococcal 2013-04-22 Completed [facility] o f Polysaccharide, 00:00:00 [facility] PPSV23 (PNEUMOVAX) Branch Influenza Virus 2013-04-22 Completed [facility] of Vaccine (3+ yrs) 00:00:00 [facility] Pneumococcal 2013-04-22 Completed [facility] o f Polysaccharide, 00:00:00 [facility] PPSV23 (PNEUMOVAX) Branch Influenza Virus 2013-04-22 Completed [facility] of Vaccine (3+ yrs) 00:00:00 [facility] Pneumococcal 2013-04-22 Completed [facility] o f Polysaccharide, 00:00:00 [facility] PPSV23 (PNEUMOVAX) Branch Influenza Virus 2013-04-22 Completed [facility] of Vaccine (3+ yrs) 00:00:00 [facility] Pneumococcal 2013-04-22 Completed [facility] o f Polysaccharide, 00:00:00 [facility] PPSV23 (PNEUMOVAX) Branch Influenza Virus 2013-04-22 Completed [facility] of Vaccine (3+ yrs) 00:00:00 [facility] Pneumococcal 2013-04-22 Completed [facility] o f Polysaccharide, 00:00:00 [facility] PPSV23 (PNEUMOVAX) Branch Influenza Virus 2013-04-22 Completed [facility] of Vaccine (3+ yrs) 00:00:00 [facility] Pneumococcal 2013-04-22 Completed [facility] o f Polysaccharide, 00:00:00 [facility] PPSV23 (PNEUMOVAX) Branch Influenza Virus 2013-04-22 Completed [facility] of Vaccine (3+ yrs) 00:00:00 [facility] Pneumococcal 2013-04-22 Completed [facility] o f Polysaccharide, 00:00:00 [facility] PPSV23 (PNEUMOVAX) Branch Influenza Virus 2013-04-22 Completed [facility] y of Vaccine (3+ yrs) 00:00:00 [facility] Branch Pneumococcal 2013-04-22 Completed [facility] o f Polysaccharide, 00:00:00 [facility] PPSV23 (PNEUMOVAX) Branch Influenza Virus 2013-04-22 Completed [facility] y of Vaccine (3+ yrs) 00:00:00 [facility] d[facility] Branch Pneumococcal 2013-04-22 Completed [facility] o f Polysaccharide, 00:00:00 [facility] PPSV23 (PNEUMOVAX) Branch Influenza Virus 2013-04-22 Completed [facility] of Vaccine (3+ yrs) 00:00:00 [facility] Pneumococcal 2013-04-22 Completed [facility] o f Polysaccharide, 00:00:00 [facility] PPSV23 (PNEUMOVAX) Branch Influenza Virus 2013-04-22 Completed [facility] of Vaccine (3+ yrs) 00:00:00 [facility] Pneumococcal 2013-04-22 Completed [facility] o f Polysaccharide, 00:00:00 [facility] PPSV23 (PNEUMOVAX) Branch Influenza Virus 2013-04-22 Completed [facility] of Vaccine (3+ yrs) 00:00:00 [facility] Pneumococcal 2013-04-22 Completed [facility] o f Polysaccharide, 00:00:00 [facility] PPSV23 (PNEUMOVAX) Branch Influenza Virus 2013-04-22 Completed [facility] of Vaccine (3+ yrs) 00:00:00 [facility] Pneumococcal 2013-04-22 Completed [facility] o f Polysaccharide, 00:00:00 [facility] PPSV23 (PNEUMOVAX) Branch Influenza Virus 2013-04-22 Completed [facility] (3+ yrs) [facility] Com[facility] o f Polysaccharide, 00:00:00 [facility] PPSV23 (PNEUMOVAX) Branch Influenza Virus 2013-04-22 Completed [facility] of Vaccine (3+ yrs) 00:00:00 [facility] Pneumococcal 2013-04-22 Completed [facility] o f Polysaccharide, 00:00:00 [facility] PPSV23 (PNEUMOVAX) Branch Influenza Virus 2013-04-22 Completed [facility] Vaccine (3+ yrs) 00:00[facility]00 [facility] 2013-04-22 Completed [facility] o f Polysaccharide, 00:00:00 [facility] PPSV23 (PNEUMOVAX) Branch Influenza Virus 2013-04-22 Completed [facility] of Vaccine (3+ yrs) 00:00:00 [facility] Pneumococcal 2013-04-22 Completed [facility] o f Polysaccharide, 00:00:00 [facility] PPSV23 (PNEUMOVAX) Branch Influenza Virus 2013-04-22 Completed [facility] of Vaccine (3+ yrs) 00:00:00 [facility] Pneumococcal 2013-04-22 Completed [facility] o f Polysaccharide, 00:00:00 [facility] PPSV23 (PNEUMOVAX) Branch Influenza Virus 2013-04-22 Completed [facility] of Vaccine (3+ yrs) 00:00:00 [facility] Pneumococcal 2013-04-22 Completed [facility] o f Polysaccharide, 00:00:00 [facility] PPSV23 (PNEUMOVAX) Branch Influenza Virus 2013-04-22 Completed [facility] of Vaccine (3+ yrs) 00:00:00 [facility] Pneumococcal 2013-04-22 Completed [facility] o f Polysaccharide, 00:00:00 [facility] PPSV23 (PNEUMOVAX) Branch Influenza Virus 2013-04-22 Completed [facility] of Vaccine (3+ yrs) 00:00:00 [facility] Pneumococcal 2013-04-22 Completed [facility] o f Polysaccharide, 00:00:00 [facility] PPSV23 (PNEUMOVAX) Branch Influenza Virus 2013-04-22 Completed [facility] of Vaccine (3+ yrs) 00:00:00 [facility] Pneumococcal 2013-04-22 Completed [facility] o f Polysaccharide, 00:00:00 [facility] PPSV23 (PNEUMOVAX) Branch Influenza Virus 2013-04-22 Completed [facility] of Vaccine (3+ yrs) 00:00:00 [facility] Pneumococcal 2013-04-22 Completed [facility] o f Polysaccharide, 00:00:00 [facility] PPSV23 (PNEUMOVAX) Branch Influenza Virus 2013-04-22 Completed [facility] of Vaccine (3+ yrs) 00:00:00 [facility] Pneumococcal 2013-04-22 Completed [facility] o f Polysaccharide, 00:00:00 [place] [facility] PPSV23 (PNEUMOVAX) Branch Influenza Virus 2013-04-22 Completed [facility] of Vaccine (3+ yrs) 00:00:00 [facility] Branch Pneumococcal 2013-04-22 Completed [facility] o f Polysaccharide, 00:00:00 [place] [facility] PPSV23 (PNEUMOVAX) Branch Influenza Virus 2013-04-22 Completed [facility] of Vaccine (3+ yrs) 00:00:00 [facility] Branch Pneumococcal 2013-04-22 Completed [facility] o f Polysaccharide, 00:00:00 [place] [facility] PPSV23 (PNEUMOVAX) Branch Influenza Virus 2013-04-22 Completed [facility] of Vaccine (3+ yrs) 00:00:00 [facility] Branch Pneumococcal 2013-04-22 Completed [facility] o f Polysaccharide, 00:00:00 [place] [facility] PPSV23 (PNEUMOVAX) Branch Influenza Virus 2013-04-22 Completed Universit y of Vaccine (3+ yrs) 00:00:00 [facility] Vital Signs Vital Name Observation Time Observation Value Comments Source BP Diastolic 2022-10-16 00:00:00 78 mm[Hg] [facility]-10-16 00:00:00 67 [in_i] Neo [facility] BMI (Body Mass 2022-10-16 00:00:00 26.9 kg/m2 [facility] Index) BP Systolic 2022-10-16 00:00:00 120 mm[Hg] Neo [facility] Body Weight 2022-10-16 00:00:00 2753 [oz_av] Neo [facility] Systolic blood 2022-08-11 19:42:00 122 mm[Hg] Univer sity of pressure [facility] Diastolic blood 2022-08-11 19:42:00 85 mm[Hg] Unive rsity of [facility] Heart rate 2022-08-11 19:42:00 119 /min [facility] Body temperature 2022-08-11 19:42:00 36.5 Sabrina [facility] Body height 2022-08-11 19:42:00 170.2 cm [facility] Body weight 2022-08-11 19:42:00 73.483 kg [facility] BMI 2022-08-11 19:42:00 25.37 kg/m2 [facility] Oxygen saturation in 2022-08-11 19:42:00 96 /min [facility] Arterial blood by [place] [facility] Systolic blood 2022-07-17 00:29:00 149 mm[Hg] Univer sity of pressure [facility] Diastolic blood 2022-07-17 00:29:00 104 mm[Hg] Unive rsity of pressure [facility] Heart rate 2022-07-17 00:29:00 109 /min [facility] Body temperature 2022-07-17 00:29:00 37.28 Sabrina [facility] Respiratory rate 2022-07-17 00:29:00 14 /min [facility] Body height 2022-07-17 00:29:00 170.2 cm [facility] Body weight 2022-07-17 00:29:00 70.308 kg [facility] BMI 2022-07-17 00:29:00 24.28 kg/m2 [facility] Oxygen saturation in 2022-07-17 00:29:00 99 /min University of Arterial blood by [facility] Pulse oximetry Branch Systolic blood 2022-07-11 14:45:00 162 mm[Hg] Univer sity of [facility] Diastolic blood 2022-07-11 14:45:00 110 mm[Hg] Unive rsity of pressure [facility] Heart rate 2022-07-11 14:45:00 114 /min [facility] Body temperature 2022-07-11 14:45:00 36.61 Sabrina Univ [facility] Body height 2022-07-11 14:45:00 170.2 cm [facility] Body weight 2022-07-11 14:45:00 72.122 kg [facility] BMI 2022-07-11 14:45:00 24.90 kg/m2 [facility] Oxygen saturation in 2022-07-11 14:45:00 99 /min [facility] Arterial blood by [place] [facility] P[facility] Systolic blood 2022-03-31 19:54:00 107 mm[Hg] Univer [facility] Diastolic blood 2022-03-31 19:54:00 73 mm[Hg] Unive rsity of [facility] Heart rate 2022-03-31 19:54:00 94 /min [facility] Body temperature 2022-03-31 19:54:00 37 Sabrina [facility] Body height 2022-03-31 19:54:00 171.5 cm [facility] Body weight 2022-03-31 19:54:00 72.576 kg [facility] BMI 2022-03-31 19:54:00 24.69 kg/m2 [facility] Oxygen saturation in 2022-03-31 19:54:00 95 /min University of Arterial blood by [facility] Pulse oximetry Branch Systolic blood 2022-03-05 19:52:00 136 mm[Hg] Univer [facility]ity [facility] Diastolic blood 2022-03-05 19:52:00 83 mm[Hg] Unive rsity of [facility] Heart rate 2022-03-05 19:52:00 98 /min [facility] Body temperature 2022-03-05 19:52:00 36.72 Sabrina [facility] Respiratory rate 2022-03-05 19:52:00 18 /min [facility] Body height 2022-03-05 19:52:00 171.5 cm [facility] Body weight 2022-03-05 19:52:00 73.936 kg [facility] BMI 2022-03-05 19:52:00 25.15 kg/m2 [facility] Systolic blood 2022-01-24 18:20:00 131 mm[Hg] [facility] Diastolic blood 2022-01-24 18:20:00 91 mm[Hg] Unive rsity of [facility] Heart rate 2022-01-24 18:19:00 102 /min [facility] Body temperature 2022-01-24 18:19:00 36.72 Sabrina [facility] Body height 2022-01-24 18:19:00 171.5 cm [facility] Body weight 2022-01-24 18:19:00 74.707 kg [facility]i ty [facility] BMI 2022-01-24 18:19:00 25.41 kg/m2 [facility] Oxygen saturation in 2022-01-24 18:19:00 97 /min University of Arterial blood by [facility] Pulse oximetry Branch Systolic blood 2022-11-20 07:00:00 128 mm[Hg] [facility] pressure Diastolic blood 2022-11-20 07:00:00 84 mm[Hg] [facility] pressure Heart rate 2022-11-20 07:00:00 79 /min [facility] Respiratory rate 2022-11-20 07:00:00 17 /min [facility] Oxygen saturation in 2022-11-20 07:00:00 98 /min [facility] Arterial blood by Pulse oximetry Body temperature 2022-11-20 03:07:00 36.78 Sabrina [facility] Body height 2022-11-20 03:07:[address] [facility] Body weight 2022-11-20 03:07:[address] [facility] BMI 2022-11-20 03:07:00 26.63 kg/m2 [facility] Systolic blood 2022-01-24 18:20:00 131 mm[Hg] Univer sity of [facility] Diastolic blood 2022-01-24 18:20:00 91 mm[Hg] Unive rsity [facility] Heart rate 2022-01-24 18:19:00 102 /min Universi ty [facility] Body temperature 2022-01-24 18:19:00 36.72 Sabrina Univ ersity of [facility] Body height 2022-01-24 18:19:00 171.5 cm Universi [facility] Body weight 2022-01-24 18:19:00 74.707 kg [facility] BMI 2022-01-24 18:19:00 25.41 kg/m2 [facility] Oxygen saturation in 2022-01-24 18:19:00 97 /min University of Arterial blood by [facility] Pulse oximetry Branch Respiratory rate 2021-11-22 18:55:00 20 /min [facility] Procedures Procedure Date / Time Performing Clinician Source Performed POC GLUCOSE 2022-11-20 07:51:00 [facility] POC GLUCOSE 2022-11-20 06:50:00 [facility] Sukhwinder CT RENAL STONE PROTOCOL 2022-11-20 05:48:37 [facility] POC GLUCOSE 2022-11-20 05:46:00 [facility] URINALYSIS SCREEN AND 2022-11-20 05:09:00 [facility] MICROSCOPY, WITH REFLEX Sukhwinder TO CULTURE HCG QUALITATIVE, URINE 2022-11-20 05:09:00 [facility] SCREEN Sukhwinder POC GLUCOSE 2022-11-20 04:44:00 [facility] POC GLUCOSE 2022-11-20 03:58:00 [facility] Pretty ECG ED PRELIMINARY 2022-11-20 [facility] Sukhwinder CBC WITH PLATELET AND 2022-11-20 03:46:00 [facility] Pretty COMPREHENSIVE METABOLIC 2022-11-20 03:46:00 [facility] PANEL Sukhwinder ESTIMATED GFR 2022-11-20 03:46:00 [facility] POC GLUCOSE 2022-11-20 03:26:00 [facility] ECG 12-LEAD 2022-11-20 03:24:44 Ayaz Butlertal MAMMO, screening, 2022-10-16 00:00:00 [facility] digital, bilateral imaging of retina for 2022-10-16 00:00:00 [facility] detection or monitoring of disease; with remote clinical staff review and report POCT HEMOGLOBIN A1C TEST 2022-08-11 20:42:00 Sarita Ferrari [facility] EXTERNAL PROVIDER RECORDS 2022-07-30 06:01:00 Doctor Unassigned, [facility] NOTICE OF PRIVACY 2022-07-17 00:19:29 Doctor Unassigned, [facility] [place] [facility] CONSENT/REFUSAL FOR 2022-07-17 00:18:46 Doctor Eze, [facility] DIAGNOSIS AND TREATMENT [facility] SARS-COV-2 COVID-19 2022-03-31 20:06:29 Sarita Ferrari [facility] JASPER-SUCROSE VACCINE 12 Medical Branch YRS+, BIVALENT 0.3ML, IM, (PFIZER ROGER TOP BOOSTER) PNEUMOCOCCAL 20 CONJUGATE 2022-03-31 20:01:27 Sarita Ferrari [facility] (PREVNAR 20) VACCINE Medical [facility] REFERRAL- 2022-03-31 05:01:00 Doctor Eze, [facility] REQUEST/RESPONSE [facility] INSURANCE CORRESPONDENCE 2022-03-10 05:01:00 Doctor Eze, [facility] Name [facility] CBC WITH DIFF 2022-01-24 21:07:00 [facility] GLYCOSYLATED HEMOGLOBIN 2022-01-24 21:07:00 Vonda [facility] [place] (A1C) [facility] COMP. METABOLIC PANEL 2022-01-24 21:07:00 Vonda [facility] ([id number]) [facility] IONIZED CALCIUM 2022-01-24 21:07:00 [facility] THYROID STIMULATING 2022-01-24 21:07:00 Sarita Ferrari [facility] HORMONE Medical Branch THYROXINE, TOTAL 2022-01-24 21:07:00 Vonda [facility] CBC WITH DIFF 2022-01-24 21:07:00 [facility] URINE CULTURE 2022-01-24 19:17:00 [facility] URINE CULTURE 2022-01-24 19:17:00 V[facility] POCT URINALYSIS 2022-01-24 19:00:00 [facility] POCT URINALYSIS 2022-01-24 19:00:00 V[facility] Plan of Care Planned Activity Planned Date Details Comments Source Future Scheduled 2023-03-08 IMM Influenza [facility] 00:00:00 Seasonal (>/= 19 yrs) [code = IMM Influenza Seasonal (>/= 19 yrs)] Future Scheduled 2022-11-21 Pneumococcal Vaccine: [facility] Test 04:24:42 Pediatrics (0 to 5 Years) and At-Risk Patients (6 to 64 Years) (1 - PCV) [code = Pneumococcal Vaccine: Pediatrics (0 to 5 Years) and At-Risk Patients (6 to 64 Years) (1 - PCV)] Future Scheduled 2022-11-21 DIABETES: RETINAL EYE [facility] Test 04:24:42 EXAM [code = DIABETES: RETINAL EYE EXAM] Future Scheduled 2022-11-21 DIABETIC FOOT EXAM [facility] Test 04:24:42 [code = DIABETIC FOOT EXAM] Future Scheduled 2022-11-21 URINE MICROALBUMIN [facility] Test 04:24:42 [code = URINE MICROALBUMIN] Future Scheduled 2022-11-21 Hepatitis C screening [facility] Test 04:24:42 (procedure) [code = 725932676] Future Scheduled 2022-11-21 Screening for [facility] Test 04:24:42 malignant neoplasm of cervix (procedure) [code = 237496425] Future Scheduled 2022-11-21 BREAST CANCER [facility] Test 04:24:42 SCREENING [code = BREAST CANCER SCREENING] Future Scheduled 2022-11-21 INFLUENZA VACCINE [facility] Test 04:24:42 [code = INFLUENZA VACCINE] Diagnostic Test 2022-10-16 HbA1c (hemoglobin [facility] Pending 00:00:00 A1c), blood [code = HbA1c (hemoglobin A1c), blood] Diagnostic Test 2022-10-16 TSH + free T4, serum [facility] Pending 00:00:00 [code = TSH + free T4, serum] Diagnostic Test 2022-10-16 Grapefruit IgE Ab [facility] Pending 00:00:00 [Units/volume] in Serum [code = 6131-7] Diagnostic Test 2022-10-16 lipid panel, serum [facility] Pending 00:00:00 [code = lipid panel, serum] Diagnostic Test 2022-10-16 Pyridoxine congeners [facility] Pending 00:00:00 [Mass/volume] in Serum or Plasma [code = 2901-7] Diagnostic Test 2022-10-16 microalbumin/creatini [facility] Pending 00:00:00 ne, mass ratio, urine [code = microalbumin/creatini ne, mass ratio, urine] Future Scheduled 2022-09-06 COVID-19 VACCINE (#1) [facility] Test 05:15:11 [code = COVID-19 VACCINE (#1)] Future Scheduled 2022-09-06 [facility] Test 05:15:11 malignant neoplasm of cervix (procedure) [code = 082980659] Future Scheduled 2022-09-06 [facility]CER [facility] Test 05:15:11 SCREENING [code = BREAST CANCER SCREENING] Future Scheduled 2022-09-06 INFLUENZA VACCINE [facility] Test 05:15:11 [code = INFLUENZA VACCINE] Future Scheduled 2022-07-11 COVID-19 VACCINE (#1) [facility] Test 22:28:38 [code = COVID-19 VACCINE (#1)] Future Scheduled 2022-07-11 Pneumococcal Vaccine: [facility] Test 22:28:38 Pediatrics (0 to 5 Years) and At-Risk Patients (6 to 64 Years) (1 - PCV) [code = Pneumococcal Vaccine: Pediatrics (0 to 5 Years) and At-Risk Patients (6 to 64 Years) (1 - PCV)] Future Scheduled 2022-07-11 DIABETES: RETINAL EYE [facility] Test 22:28:38 EXAM [code = DIABETES: RETINAL EYE EXAM] Future Scheduled 2022-07-11 DIABETIC FOOT EXAM [facility] Test 22:28:38 [code = DIABETIC FOOT EXAM] Future Scheduled 2022-07-11 URINE MICROALBUMIN [facility] Test 22:28:38 [code = URINE MICROALBUMIN] Future Scheduled 2022-07-11 Hepatitis C screening [facility] Test 22:28:38 (procedure) [code = 044951694] Future Scheduled 2022-07-11 [facility] Test 22:28:38 malignant neoplasm of cervix (procedure) [code = 497019527] Future Scheduled 2022-07-11 BRE[facility] CANCER [facility] Test 22:28:38 SCREENING [code = BREAST CANCER SCREENING] Future Scheduled 2022-07-11 INFLUENZA VACCINE Method is Hospital Test 22:28:38 [code = INFLUENZA VACCINE] Future Scheduled 2022-05-31 COVID-19 VACCINE (#1) [facility] Test 07:02:30 [code = COVID-19 VACCINE (#1)] Future Scheduled 2022-05-31 Pneumococcal Vaccine: [facility] Test 07:02:30 Pediatrics (0 to 5 Years) and At-Risk Patients (6 to 64 Years) (1 - PCV) [code = Pneumococcal Vaccine: Pediatrics (0 to 5 Years) and At-Risk Patients (6 to 64 Years) (1 - PCV)] Future Scheduled 2022-05-31 DIABETES: RETINAL EYE [facility] Test 07:02:30 EXAM [code = DIABETES: RETINAL EYE EXAM] Future Scheduled 2022-05-31 [facility] 07:02:30 [code = DIABETIC FOOT EXAM] Future Scheduled 2022-05-31 [facility] Test 07:02:30 [code = URINE MICROALBUMIN] Future Scheduled 2022-05-31 Hepatitis C screening [facility] Test 07:02:30 (procedure) [code = 601591728] Future Scheduled 2022-05-31 Screening for [facility] Test 07:02:30 malignant neoplasm of cervix (procedure) [code = 907349796] Future Scheduled 2022-05-31 BREAST CANCER [facility] Test 07:02:30 SCREENING [code = BREAST CANCER SCREENING] Future Scheduled 2022-05-31 INFLUENZA VACCINE [facility] Test 07:02:30 [code = INFLUENZA VACCINE] Future Scheduled 2022-05-31 COVID-19 VACCINE (#1) [facility] Test 07:02:30 [code = COVID-19 VACCINE (#1)] Future Scheduled 2022-05-31 Pneumococcal Vaccine: [facility] Test 07:02:30 Pediatrics (0 to 5 Years) and At-Risk Patients (6 to 64 Years) (1 - PCV) [code = Pneumococcal Vaccine: Pediatrics (0 to 5 Years) and At-Risk Patients (6 to 64 Years) (1 - PCV)] Future Scheduled 2022-05-31 DIABETES: RETINAL EYE [facility] Test 07:02:30 EXAM [code = DIABETES: RETINAL EYE EXAM] Future Scheduled 2022-05-31 [facility] Test 07:02:30 [code = DIABETIC FOOT EXAM] Future Scheduled 2022-05-31 [facility] Test 07:02:30 [code = URINE MICROALBUMIN] Future Scheduled 2022-05-31 Hepatitis C screening [facility] Test 07:02:30 (procedure) [code = 474499854] Future Scheduled 2022-05-31 Screening for [facility] Test 07:02:30 malignant neoplasm of cervix (procedure) [code = 041750672] Future Scheduled 2022-05-31 BREAST CANCER [facility] Test 07:02:30 SCREENING [code = BREAST CANCER SCREENING] Future Scheduled 2022-05-31 INFLUENZA VACCINE Method [facility] Test 07:02:30 [code = INFLUENZA VACCINE] Future Scheduled 2022-05-31 COVID-19 VACCINE (#1) [facility] Test 07:02:30 [code = COVID-19 VACCINE (#1)] Future Scheduled 2022-05-31 Pneumococcal Vaccine: [facility] Test 07:02:30 Pediatrics (0 to 5 Years) and At-Risk Patients (6 to 64 Years) (1 - PCV) [code = Pneumococcal Vaccine: Pediatrics (0 to 5 Years) and At-Risk Patients (6 to 64 Years) (1 - PCV)] Future Scheduled 2022-05-31 DIABETES: RETINAL EYE [facility] Test 07:02:30 EXAM [code = DIABETES: RETINAL EYE EXAM] Future Scheduled 2022-05-31 DIABETIC FOOT EXAM [facility] Test 07:02:30 [code = DIABETIC FOOT EXAM] Future Scheduled 2022-05-31 URINE MICROALBUMIN [facility] Test 07:02:30 [code = URINE MICROALBUMIN] Future Scheduled 2022-05-31 Hepatitis C screening [facility] Test 07:02:30 (procedure) [code = 553154269] Future Scheduled 2022-05-31 Screening for [facility] Test 07:02:30 malignant neoplasm of cervix (procedure) [code = 456785376] Future Scheduled 2022-05-31 BREAST CANCER [facility] Test 07:02:30 SCREENING [code = BREAST CANCER SCREENING] Future Scheduled 2022-05-31 INFLUENZA VACCINE Method [facility] Test 07:02:30 [code = INFLUENZA VACCINE] Future Scheduled 2022-03-08 IMM Influenza [facility] Test 00:00:00 Seasonal (>/= 19 yrs) [code = IMM Influenza Seasonal (>/= 19 yrs)] Future Scheduled 2022-03-08 IMM [facility] Test 00:00:00 Seasonal (>/= 19 yrs) [code = IMM Influenza Seasonal (>/= 19 yrs)] Future Scheduled 2022-03-08 IMM [facility]enza [facility] Test 00:00:00 Seasonal (>/= 19 yrs) [code = IMM Influenza Seasonal (>/= 19 yrs)] Future Scheduled 2022-03-08 IMM [facility]enza [facility] Test 00:00:00 Seasonal (>/= 19 yrs) [code = IMM Influenza [...] malignant neoplasm of cervix (procedure) [code = 125641975] Future Scheduled 2008 [facility] Test 00:00:00 malignant neoplasm of cervix (procedure) [code = 686667559] Future Scheduled 2008 [facility] Test 00:00:00 malignant neoplasm of cervix (procedure) [code = 916119719] Future Scheduled 2008 [facility] Test 00:00:00 malignant neoplasm of cervix (procedure) [code = 410774045] Future Scheduled 2008 [facility] Test 00:00:00 malignant neoplasm of cervix (procedure) [code = 623634593] Future Scheduled 2008 [facility] Test 00:00:00 malignant neoplasm of cervix (procedure) [code = 838737146] Future Scheduled 2008 [facility] Test 00:00:00 malignant neoplasm of cervix (procedure) [code = 132197464] Future Scheduled 2008 [facility] Test 00:00:00 malignant neoplasm of cervix (procedure) [code = 349871115] Future Scheduled 2008 [facility] Test 00:00:00 malignant neoplasm of cervix (procedure) [code = 803019946] Future Scheduled 2008 [facility] Test 00:00:00 malignant neoplasm of cervix (procedure) [code = 003674742] Future Scheduled 1981-02-07 COVID-19 Vaccine (#1) Payne [...] Date/Time Type Type Clinicians Facility Department ID 2022-12-02 2022-12-02 Outpatient GC_PGTW_Pas PRIV PRIV [id number] [facility] 00:00:00 00:00:00 chalis_T [id number] Medic al 2022-11-21 2022-11-21 Outpatient GC_PGTW_Pas PRIV PRIV [id number] [facility] 00:00:00 00:00:00 chalis_T [id number] Medic al 2022-11-19 2022-11-20 Emergency [place] [id number] [facility] 21:57:00 03:19:00 , [place] [id number] [place] 3.430.2.7 [id number] l .8 2022-11-19 2022-11-20 Emergency [facility] [id number] [facility] 00:00:00 00:00:00 EWA i 2022-11-19 2022-11-19 Outpatient PRIV PRIV [id number] [facility] 00:00:00 00:00:00 [id number] Medica l 2022-11-19 2022-11-19 Outpatient GC_GCCOLL_H PRIV PRIV [id number] [facility] 00:00:00 00:00:00 ayes_J [id number] Medica l 2022-11-11 2022-11-11 Outpatient GC_GCCOLL_H PRIV PRIV [id number] [facility] 00:00:00 00:00:00 ayes_J [id number] Medica l 2022-11-04 2022-11-04 Outpatient GC_PGTW_Pas PRIV PRIV [id number] [facility] 00:00:00 00:00:00 chalis_T [id number] Medic al 2022-11-04 2022-11-04 Outpatient GC_GCCOLL_H PRIV PRIV [id number] [facility] 00:00:00 00:00:00 maribeles_J [id number] Medica l 2022-11-04 2022-11-04 Outpatient GC_PGTW_Pas PRIV PRIV [id number] [facility] 00:00:00 00:00:00 chynais_T [id number] Medic al 2022-11-04 2022-11-04 Outpatient GC_GCCOLL_H PRIV PRIV [id number] [facility] 00:00:00 00:00:00 ayes_J [id number] Medica l 2022-10-29 2022-10-29 Outpatient GC_PGTW_Pas PRIV PRIV [id number] [facility] 00:00:00 00:00:00 chalis_T [id number] Medic al 2022-10-27 2022-10-27 Outpatient GC_GCCOLL_H PRIV PRIV [id number] [facility] 00:00:00 00:00:00 ayes_J [id number] Medica l 2022-10-27 2022-10-27 Outpatient GC_GCCOLL_H PRIV PRIV [id number] [facility] 00:00:00 00:00:00 ayes_J [id number] Medica l 2022-10-24 2022-10-24 Outpatient GC_GCCOLL_H PRIV PRIV [id number] [facility] 00:00:00 00:00:00 ayes_J [id number] Medica l 2022-10-24 2022-10-24 Outpatient GC_PGTW_Pas PRIV PRIV [id number] [facility] 00:00:00 00:00:00 chalis_T [id number] Medic al 2022-10-23 2022-10-23 Outpatient GC_PGTW_Pas PRIV PRIV [id number] [facility] 00:00:00 00:00:00 chalis_T [id number] Medic al 2022-10-21 2022-10-21 Outpatient GC_PGTW_Pas PRIV PRIV [id number] [facility] 00:00:00 00:00:00 chalis_T [id number] Medic al 2022-10-20 2022-10-20 Outpatient GC_PGTW_Pas PRIV PRIV [id number] [facility] 00:00:00 00:00:00 chalis_T [id number] Medic al 2022-10-16 2022-10-16 Outpatient GC_PGTW_Pas PRIV PRIV [id number] [facility] 00:00:00 00:00:00 chalis_T [id number] Medic al 2022-10-16 2022-10-16 Thimos G [facility] [id number] [facility] 00:00:00 00:00:00 [facility] migue ADLER: 134 GC_PGTW_Vis [facility] [address], [place] [address] , Ph. 2022-10-15 2022-10-15 Outpatient GC_PGTW_Pas PRIV PRIV [id number] [facility] 00:00:00 00:00:00 chalis_T [id number] Medic al 2022-10-14 2022-10-14 Outpatient Abel FERRARI [facility] [id number] [facility] Univers 13:40:00 13:40:00 [facility] 2022-10-06 2022-10-06 Outpatient GC_PGTW_Pas PRIV PRIV [id number] [facility] 00:00:00 00:00:00 milo_Alonso [id number] Medic al 2022-09-16 2022-09-16 Outpatient R NEETU [facility] [id number] Univers 09:30:00 09:30:00 WENTONG [facility] 2022-08-26 2022-08-26 Patient [facility] [id number] Univers 00:00:00 00:00:00 [id number] [place] of [place] 4.2.7.2.686 Jon as STEPHANIE?BLEA [id number] [address] OFFICE [facility] 2022-08-26 2022-08-26 Telephone [facility] [id number] Univers 00:00:00 00:00:00 [facility] [id number] ity of [place] 4.2.7.2.686 Jon as STEPHANIE?BLEA [id number] [address] OFFICE [facility] 2022-08-25 2022-08-25 Refill [facility] [id number] Univers 00:00:00 00:00:00 [facility] [id number] ity of [place] 4.2.7.2.686 Jon as STEPHANIE?BLEA [phone] [address] OFFICE [facility] 2022-08-25 2022-08-25 Refill [facility] 1.2.840.114 [id number] Univers 00:00:00 00:00:00 Sarita HEALTH 350.1.13.10 ity of [place] 4.2.7.2.686 Jon as STEPHANIE?BLEA [phone] [address] OFFICE [facility] 2022-08-25 2022-08-25 Refrafia [facility]NEW [facility] 1.2.840.114 [id number] Univers 00:00:00 00:00:00 Alexsandra PENA 350.1.13.10 it y of [facility] 4.2.7.2.686 Jon as PEDIATRIC [phone] [place] dicoh AND [address] [place] [address] E CLINIC 2022-08-25 2022-08-25 Refill [facility] 1.2.840.114 [id number] Univers 00:00:00 00:00:00 Sarita PENA 350.1.13.10 ity of [facility] 4.2.7.2.686 [place]IC [phone] [facility] AND [address] [place] [address] E CLINIC 2022-08-11 2022-08-11 [facility] [id number] Univers 13:40:00 14:35:13 [facility] 2022-08-11 2022-08-11 Office [facility] 1.2.840.114 [id number] Univers 13:40:00 14:35:13 Visit [facility] 350.1.13.10 ity of [place] 4.2.7.2.686 Jon as STEPHANIE?BLEA [phone] [address] OFFICE [facility] 2022-08-11 2022-08-11 Telephone [facility] 1.2.812.671 [id number] Univers 00:00:00 00:00:00 [facility] 350.1.13.10 ity of [place] 4.2.7.2.686 Jon as STEPHANIE?BLEA [phone] [address] MEDICAL OFFICE [facility] 2022-08-08 2022-08-08 [facility] [id number] Univers 13:40:00 13:40:00 [facility] 2022-08-03 2022-08-03 Refill [facility] 1.2.840.114 [id number] Univers 00:00:00 00:00:00 Sarita ROSEMARY 350.1.13.10 ity of [facility] 4.2.7.2.[place] [phone] [facility] AND [address] [place] [address] E CLINIC 2022-08-01 2022-08-01 Patient [facility] 1.2.840.114 [id number] Univers 00:00:00 00:00:00 Secure [facility] Sarita HEALTH 350.1.13.10 ity of [place] 4.2.7.2.686 Jon as STEPHANIE?BLEA [phone] [address] MEDICAL OFFICE [facility] 2022-07-31 2022-07-31 Telephone [facility] Center[facility]ioNEW [facility] 1.2.144.382 [id number] Univers 00:00:00 00:00:00 Sarita HEALTH 350.1.13.10 ity of [place] 4.2.7.2.686 Jon as STEPHANIE?BLEA [phone] [address] MEDICAL OFFICE [facility] 2022-07-30 2022-07-30 Orders Doctor ROBERT 1.2.840.114 [id number] Univers 00:00:00 00:00:00 Only Unassigned, MAURO 350.1.13.10 ity of [place] [facility] 4.2.7.2.686 Jon as [phone] [address] 2022-07-28 2022-07-28 Patient [facility] 1.2.840.114 [id number] Univers 00:00:00 00:00:00 Secure [facility] Sarita HEALTH 350.1.13.10 ity of [place] 4.2.7.2.686 Jon as STEPHANIE?BLEA [phone] [address] MEDICAL OFFICE [facility] 2022-07-28 2022-07-28 Patient [facility] 1.2.840.114 [id number] Univers 00:00:00 00:00:00 Secure [facility] Sarita HEALTH 350.1.13.10 it[facility] 4.2.7.2.686 Jon as STEPHANIE?BLEA [phone] [address] OFFICE [facility] 2022-07-28 2022-07-28 Patient [facility] Centerars[facility]ioNEW [facility] 1.2.840.114 [id number] Univers 00:00:00 00:00:00 Secure [facility] Sarita HEALTH 350.1.13.10 ity [facility] 4.2.7.2.686 Jon as STEPHANIE?BLEA [phone] [address] MEDICAL OFFICE [facility] 2022-07-28 2022-07-28 [facility] EllsworthNEW [facility] 1.2.840.114 [id number] Univers 00:00:00 00:00:00 Alexsandra LEAGUE 350.1.13.10 it y of [facility] 4.2.7.2.686 Jon as PEDIATRIC [phone] [facility] AND [address] [place] [address] E CLINIC 2022-07-28 2022-07-28 [facility] 1.2.437.925 [id number] Univers 00:00:00 00:00:00 Sarita HEALTH 350.1.13.10 ity of [place] 4.2.7.2.686 Jon as STEPHANIE?BLEA [phone] [address] OFFICE [facility] 2022-07-27 2022-07-27 [facility] 1.2.840.114 [id number] Univers 00:00:00 00:00:00 Sarita HEALTH 350.1.13.10 ity of [place] 4.2.7.2.686 Jon as STEPHANIE?BLEA [phone] [address] OFFICE [facility] 2022-07-27 2022-07-27 [facility] Hospitalrafia EllsworthNEW [facility] 1.2.840.114 [id number] Univers 00:00:00 00:00:00 Alexsandra LEAGUE 350.1.13.10 it y of [facility] 4.2.7.2.686 Jon as PEDIATRIC [phone] [facility] AND [address] [place] [address] E CLINIC 2022-07-26 2022-07-26 [facility] 1.2.840.114 [id number] Univers 00:00:00 00:00:00 Sarita HEALTH 350.1.13.10 ity [facility] 4.2.7.2.686 Jon as STEPHANIE?BLEA [phone] [place] dical [address] OFFICE [facility] 2022-07-23 2022-07-23 [facility] 1.2.840.114 [id number] Univers 00:00:00 00:00:00 Sarita HEALTH 350.1.13.10 ity of [place] 4.2.7.2.686 Jon as STEPHANIE?BLEA [phone] [address] OFFICE [facility] 2022-07-18 2022-07-18 Outpatient R TOBY [facility] [id number] Univers 13:00:00 13:00:00 SYDNEY galvan [facility] 2022-07-16 2022-07-16 Emergency X PERLANEW [facility] ERT [id number] Univers 18:33:00 20:01:00 EMETERIO [facility] 2022-07-16 2022-07-16 Emergency PerlaNEW [facility] 1.2.592.850 [id number] Univers 18:33:00 20:01:00 Emeterio Ureña [place] 350.1.13.10 i ty of [facility] 4.2.7.2.686 [place] [facility] [phone] [address] 2022-07-16 2022-07-16 Telephone [facility] 1.2.374.911 [id number] Univers 00:00:00 00:00:00 Sarita HEALTH 350.1.13.10 ity of [place] 4.2.7.2.686 Jon as STEPHANIE?BLEA [phone] [address] 2022-07-15 2022-07-15 Telephone [facility] 1.2.799.446 [id number] Univers 00:00:00 00:00:00 Sarita HEALTH 350.1.13.10 ity of [place] 4.2.7.2.686 Jon as STEPHANIE?BLEA [phone] [address] OFFICE [facility] 2022-07-15 2022-07-15 Refill [facility] 1.2.840.114 [id number] Univers 00:00:00 00:00:00 Sarita HEALTH 350.1.13.10 ity of [place] 4.2.7.2.686 Jon as STEPHANIE?BLEA [phone] [address] OFFICE [facility] 2022-07-11 2022-07-11 Outpatient R VONDA [facility] [id number] Univers 08:40:00 11:07:42 SARITA ity [facility] 2022-07-11 2022-07-11 Office [facility] 1.2.840.114 [id number] Univers 08:40:00 11:07:42 Visit Sarita HEALTH 350.1.13.10 ity of [place] 4.2.7.2.686 Jon as STEPHANIE?BLEA [phone] [address] OFFICE [facility] 2022-07-10 2022-07-10 Patient [facility] 1.2.840.114 [id number] Univers 00:00:00 00:00:00 [facility] 350.1.13.10 ity of [place] 4.2.7.2.686 Jon as STEPHANIE?BLEA [phone] [address] OFFICE [facility] 2022-07-10 2022-07-10 Patient [facility] 1.2.840.114 [id number] Univers 00:00:00 00:00:00 Secure [facility] HEALTH 350.1.13.10 ity of [place] 4.2.7.2.686 Jon as STEPHANIE?BLEA [phone] [address] OFFICE [facility] 2022-07-10 2022-07-10 Telephone [facility] 1.2.107.495 [id number] Univers 00:00:00 00:00:00 Sarita HEALTH 350.1.13.10 ity of [place] 4.2.7.2.686 Jon as STEPHANIE?BLEA [phone] [address] OFFICE [facility] 2022-07-09 2022-07-09 Telephone [facility] 1.2.980.947 [id number] Univers 00:00:00 00:00:00 Sarita HEALTH 350.1.13.10 ity of [place] 4.2.7.2.686 Jon as STEPHANIE?BLEA [phone] [address] OFFICE [facility] 2022-07-07 2022-07-07 Refill [facility] 1.2.840.114 [id number] Univers 00:00:00 00:00:00 Sarita HEALTH 350.1.13.10 ity [facility] 4.2.7.2.686 Jon as STEPHANIE?BLEA [phone] [address] OFFICE [facility] 2022-07-07 2022-07-07 Patient [facility] 1.2.840.114 [id number] Univers 00:00:00 00:00:00 Secure Msg Sarita HEALTH 350.1.13.10 ity of [facility] 4.2.7.2.686 Jon as STEPHANIE?BLEA [phone] [address] OFFICE [facility] 2022-07-04 2022-07-04 [facility] [id number] Univers 11:00:00 11:00:00 [facility] 2022-07-03 2022-07-03 Out[facility] [id number] Univers 14:20:00 14:20:00 [facility] 2022-06-23 2022-06-23 Refill [facility] 1..840.114 [id number] Univers 00:00:00 00:00:00 [facility] 350.1.13.10 ity of [place] 4.2.7.2.686 Jon as STEPHANIE?BLEA [phone] [address] 2022-06-16 2022-06-16 Outpatient [facility] [id number] Univers 11:00:00 11:00:00 [facility] 2022-06-16 2022-06-16 [facility] 1.2.840.114 [id number] Univers 00:00:00 00:00:00 Sarita HEALTH 350.1.13.10 ity of [place] 4.2.7.2.686 Jon as STEPHANIE?BLEA [phone] [address] OFFICE [facility] 2022-06-09 2022-06-09 Telephone [facility] 1.2.787.989 [id number] Univers 00:00:00 00:00:00 Sarita LEAGUE 350.1.13.10 ity of [facility] 4.2.7.2.686 [place] P[place]IC [phone] Me dicoh AND [address] [place] [address] [facility] 2022-05-29 2022-05-29 Outpatient R VONDA [facility] [id number] Univers 10:40:00 10:40:00 [facility] 2022-05-26 2022-05-26 Outpatient R ALICIA [facility] [id number] Univers 00:00:00 00:00:00 POLLY [facility] 2022-05-21 2022-05-21 Patient [facility]NEW [facility] 1.2.840.114 [id number] Univers 00:00:00 00:00:00 Secure [facility] 350.1.13.10 ity of [place] 4.2.7.2.686 Jon as STEPHANIE?BLEA [phone] [address] OFFICE [facility] 2022-05-21 2022-05-21 Telephone [facility]NEW [facility] 1.2.759.547 [id number] Univers 00:00:00 00:00:00 [facility] 350.1.13.10 ity of [place] 4.2.7.2.686 Jon as STEPHANIE?BLEA [phone] [address] OFFICE [facility] 2022-05-19 2022-05-19 Refill [facility] 1.2.840.114 [id number] Univers 00:00:00 00:00:00 Sarita LEAGUE 350.1.13.10 ity of [facility] 4.2.7.2.686 [place] [phone] Me dicoh AND [address] [place] [address] [facility] 2022-05-16 2022-05-16 [facility] 1.2.840.114 [id number] Univers 00:00:00 00:00:00 Sarita LEAGUE 350.1.13.10 ity of [facility] 4.2.7.2.686 [place] [phone] Wa dicoh AND [address] [place] [address] [facility] 2022-05-06 2022-05-06 Outpatient R NEETU [facility] [id number] Univers 14:30:00 14:30:00 WENTONG ity [facility] 2022-05-06 2022-05-06 Outpatient R NEETU [facility] [id number] Univers 14:30:00 14:30:00 WENTONG ity of [facility] 2022-05-06 2022-05-06 Outpatient R NEETU [facility] [id number] Univers 14:30:00 14:30:00 WENTONG ity [facility] 2022-05-06 2022-05-06 Outpatient R NEETU, [facility] [id number] Univers 14:30:00 14:30:00 WENTONG ity [facility] 2022-04-30 2022-04-30 Refrafia EllsworthNEW MEXICO [facility] 1.2.840.114 [id number] Univers 00:00:00 00:00:00 Alexsandra PENA 350.1.13.10 it y of [facility] 4.2.7.2.686 Jon as PEDIATRIC [phone] [address] E CLINIC 2022-04-30 2022-04-30 Refill [facility] CenterarsenioNEW [facility] 1.2.840.114 [id number] Univers 00:00:00 00:00:00 [facility] 350.1.13.10 ity of [place] 4.2.7.2.686 Jon as STEPHANIE?BLEA [phone] [address] MEDICAL OFFICE BUILDING 2022-04-22 2022-04-22 Patient [facility] 1.2.840.114 [id number] Univers 00:00:00 00:00:00 Secure Msg [facility] 350.1.13.10 ity of [place] 4.2.7.2.686 Jon as STEPHANIE?BLEA [phone] [address] MEDICAL OFFICE BUILDING 2022-04-21 2022-04-21 Telephone [facility] 1.2.254.528 [id number] Univers 00:00:00 00:00:00 [facility] 350.1.13.10 ity of [place] 4.2.7.2.686 Jon as STEPHANIE?BLEA [phone] [address] MEDICAL OFFICE BUILDING 2022-04-14 2022-04-14 Outpatient R ALICIA [facility] [id number] Univers 00:00:00 00:00:00 POLLY carlislearsenio [facility] 2022-04-09 2022-04-09 Telephone [facility]NEW [facility] 1.2.177.240 [id number] Univers 00:00:00 00:00:00 Sarita HEALTH 350.1.13.10 ity of [place] 4.2.7.2.686 Jon as STEPHANIE?BLEA [phone] [address] OFFICE [facility] 2022-04-08 2022-04-08 Patient [facility] CenterarsenioNEW [facility] 1.2.840.114 [id number] Univers 00:00:00 00:00:00 Secure [facility] 350.1.13.10 ity of [place] 4.2.7.2.686 Jon as STEPHANIE?BLEA [phone] [address] 2022-04-08 2022-04-08 Refill [facility]NEW [facility] 1.2.840.114 [id number] Univers 00:00:00 00:00:00 Sarita LEAGUE 350.1.13.10 ity of [facility] 4.2.7.2.686 [place] [id number] [facility] AND [address] [place] [address] E CLINIC 2022-04-01 2022-04-01 Jasper EllsworthNEW MEX[facility] 1.2.840.114 [id number] Univers 00:00:00 00:00:00 Alexsandra LEAGUE 350.1.13.10 it y of [facility] 4.2.7.2.686 Jon as PEDIATRIC [id number] [facility] AND [address] [place] [address] E CLINIC 2022-04-01 2022-04-01 Patient [facility]NEW [facility] 1.2.840.114 [id number] Univers 00:00:00 00:00:00 Secure [facility] 350.1.13.10 ity of [place] 4.2.7.2.686 Jon as STEPHANIE?BLEA [phone] [address] OFFICE [facility] 2022-03-31 2022-03-31 Outpatient [facility] [id number] Univers 14:20:00 16:03:25 [facility] 2022-03-31 2022-03-31 Office [facility]NEW [facility] 1.2.840.114 [id number] Univers 14:20:00 16:03:25 Visit [facility] 350.1.13.10 ity of [place] 4.2.7.2.686 Jon as STEPHANIE?BLEA [phone] [address] MEDICAL OFFICE [facility] 2022-03-31 2022-03-31 Orders Doctor ROBERT 1.2.840.114 [id number] Univers 00:00:00 00:00:00 Only Unassigned, MAURO 350.1.13.10 ity of [facility] 4.2.7.2.686 Jon as [phone] [address] 2022-03-27 2022-03-27 Outpatient [facility] [id number] Univers 14:20:00 14:20:00 [facility] 2022-03-21 2022-03-21 Outpatient [facility]KET[facility] [id number] Univers 14:00:00 14:00:00 SYDNEY [facility] 2022-03-17 2022-03-17 Patient [facility] 1.2.840.114 [id number] Univers 00:00:00 00:00:00 Secure Msg [facility] 350.1.13.10 ity of [place] 4.2.7.2.686 Jon as STEPHANIE?BLEA [phone] [address] MEDICAL OFFICE [facility] 2022-03-11 2022-03-11 Refill [facility]NEW [facility] 1.2.840.114 [id number] Univers 00:00:00 00:00:00 Sarita LEROSEMARY 350.1.13.10 ity of [facility] 4.2.7.2.686 [place] [phone] [place] tim[address] [facility] 2022-03-10 2022-03-10 Orders Doctor ROBERT 1.2.840.114 [id number] Univers 00:00:00 00:00:00 Only Unassigned, MAURO 350.1.13.10 ity of [facility] 4.2.7.2.686 Jon as [phone] [address] 2022-03-05 2022-03-05 Outpatient [facility] [id number] Univers 14:30:00 15:25:35 POLLY [facility] 2022-03-05 2022-03-05 Office [facility] hospitalvinhNEW [facility] 1.2.515.973 [id number] Univers 14:30:00 15:25:35 Visit Polly YOUSIFJANNY 350.1.13.10 i ty [facility] 4.2.7.2.[place] PROF[place] [phone] [place] dical [address] 2022-02-28 2022-02-28 Outpatient R NILAKETTER[facility] [id number] Univers 12:45:00 12:45:00 [facility] 2022-02-17 2022-02-17 Outpatient [facility] [id number] Univers 14:30:00 14:30:00 [facility] 2022-02-15 2022-02-15 Refill Seng [facility] 1.2.840.114 [id number] Univers 00:00:00 00:00:00 Alexsandra PENA 350.1.13.10 it y of [facility] 4.2.7.2.686 Jon as PEDIATRIC [phone] [place] dical AND [address] [facility] 2022-02-12 2022-02-12 Outpatient R SAMKET[facility] [id number] Univers 14:00:00 14:00:00 OMKAR [facility] 2022-02-06 2022-02-06 Isela Zepeda.2.840.0 [id number] Univers 00:00:00 00:00:00 Alexsandra 35979.1.1 ity of [facility] 3.104.2.7 [place] .3.876436 Medica l .[address] [place] 2022-01-24 2022-01-24 Thread Checker Sarita Ferrari 1.2.840.1 [id number] Univers 16:00:00 16:52:01 [place] [address].1.1 ity 3.104.2.7 [place] .3.533743 Medica l .8 [place] 2022-01-24 2022-01-24 Thread Checker Lab, Ang - Db [facility] 1.2.840.1 14 [id number] Univers 16:00:00 16:15:00 Visit [facility] 350.1.13.10 ity [facility] 4.2.7.2.686 Jon as STEPHANIE?BLEA [phone] [facility] [address] MEDICAL OFFICE [facility] 2022-01-24 2022-01-24 Outpatient [facility] [id number] Univers 13:00:00 14:06:30 [facility] 2022-01-24 2022-01-24 Office [facility] 1.2.840.114 [id number] Univers 13:00:00 14:06:30 Visit [facility] 350.1.13.10 ity [facility] 4.2.7.2.686 Jon as STEPHANIE?BLEA [phone] [address] MEDICAL OFFICE [facility] 2022-01-24 2022-01-24 Outpatient [facility] [id number] Univers 13:00:00 14:06:30 [facility] 2022-01-24 2022-01-24 Outpatient [facility] [id number] Univers 13:00:00 14:06:30 SARITA y [facility] 2022-01-24 2022-01-24 Outpatient R KLEY, [facility] [id number] Univers 13:00:00 14:06:30 [facility] 2022-01-24 2022-01-24 [facility] [id number] Univers 13:00:00 14:06:30 [facility] 2022-01-24 2022-01-24 Patient Vonda, 1.2.840.1 [id number] Univers 00:00:00 00:00:00 Secure Msg Sarita 48763.1.1 ity of 3.104.2.7 [place] .3.352981 Medica l .[place] 2022-01-24 2022-01-24 Travel 1.2.840.1 1.2.614.999 [id number] Univers 00:00:00 00:00:00 94385.1.1 350.1.13.10 ity of 3.104.2.7 4.[place]7.3.698 [place] .3.766970 084.8 Medica l .8 [place] 2022-01-20 2022-01-20 Patient Doctor 1.2.840.9 [id number] Univers 00:00:00 00:00:00 Secure Msg Unassigned, 59224.1.1 ity of [place] 3.104.2.7 [place] .3.975483 Medica l .8 [place] 2022-01-17 2022-01-17 Outpatient Abel [facility]IKET[facility] [id number] Univers 11:00:00 11:00:00 SARITA ity [facility] 2022-01-17 2022-01-17 Refrafia EllsworthNEW [facility] 1.2.840.114 [id number] Univers 00:00:00 00:00:00 Alexsandra PENA 350.1.13.10 it y of [facility] 4.2.7.2.686 Jon as PEDIATRIC [phone] [place] dicoh AND [address] [place] [address] E CLINIC 2022-01-17 2022-01-17 Jasper Ellsworth, 1.2.840.9 [id number] Univers 00:00:00 00:00:00 Alexsandra 64423.1.1 ity of [facility] 3.104.2.7 [place] .3.693973 Medica l .[place] 2022-01-16 2022-01-16 Outpatient Abel GUY [facility] [id number] Univers 10:15:00 10:15:00 LAKEISHA galvan [facility] 2022-01-14 2022-01-14 Travel 1.2.840.1 1.2.200.124 [id number] Univers 00:00:00 00:00:00 82977.1.1 350.1.13.10 ity of 3.104.2.[place]3.698 [place] .3.595939 084.8 Medica l .8 Branch 2022-01-14 2022-01-14 [facility] 1.2.840.114 [id number] Univers 00:00:00 00:00:00 Alexsandra JEAN 350.1.13.10 it y of [facility] 4.2.7.2.686 Jon as PEDIATRIC [id number] [place] dical AND 313 Branch [facility] 2022-01-14 2022-01-14 Travel 1.2.840.1 1.2.281.082 [id number] Univers 00:00:00 00:00:00 68819.1.1 350.1.13.10 ity of 3[place]104.2.[place].698 [place] .3.257731 084.8 Medica l .8 Branch 2022-01-14 2022-01-14 Refill Ellsworth, 1.2.840.3 [id number] Univers 00:00:00 00:00:00 Alexsandra 70964.1.1 ity of [place] 3.104.2.7 [place] .3.999824 Medica l .8 Branch 2022-01-08 2022-01-08 Refill Ellsworth, 1.2.840.5 [id number] Univers 00:00:00 00:00:00 Alexsandra 99384.1.1 ity of [place] 3.104.2.7 [place] .3.273805 Medica l .8 Branch 2022-01-08 2022-01-08 Refill Ellsworth, 1.2.840.4 [id number] Univers 00:00:00 00:00:00 Alexsandra 69255.1.1 ity of [place] 3.104.2.7 [place] .3.780024 Medica l .8 Branch 2022-01-07 2022-01-07 Outpatient R MILJOHNNIGEL, [facility] [id number] Univers 16:15:00 16:15:00 LAKEISHA ity [facility] 2021-12-27 2021-12-27 Outpatient R ROSANA, [facility] [id number] Univers 15:00:00 15:00:00 GABRIELA ity [facility] 2021-12-25 2021-12-25 Outpatient R ENENIGEL, [facility] [id number] Univers 08:15:00 08:15:00 LAKEISHA ity [facility] 2021-12-18 2021-12-18 Outpatient R SAM, [facility] [id number] Univers 14:15:00 14:15:00 AISHAT ity [facility] 2021-12-12 2021-12-12 Refill Ellsworth, 1.2.840.3 [id number] Univers 00:00:00 00:00:00 Alexsandra 10962.1.1 ity of [place] 3.104.2.7 [place] .3.002237 Medica l .8 [place] 2021-12-12 2021-12-12 Refill Ellsworth, 1.2.840.1 [id number] Univers 00:00:00 00:00:00 Alexsandra 79226.1.1 ity of [place] 3.104.2.7 [place] .3.636717 Medica l .8 [place] 2021-12-04 2021-12-04 Patient Doctor 1.2.840.6 [id number] Univers 00:00:00 00:00:00 Secure Msg Unassigned, 65677.1.1 ity of [place] 3.104.2.7 [place] .3.812193 Medica l .8 [place] 2021-12-04 2021-12-04 Patient Doctor 1.2.840.2 [id number] Univers 00:00:00 00:00:00 Secure Msg Unassigned, 74241.1.1 ity of [place] 3.104.2.7 [place] .3.246485 [facility] 2021-12-03 2021-12-03 [facility] [id number] Univers 09:00:00 09:00:00 ALEXSANDRA galvan [facility] 2021-11-22 2021-11-22 Outpatient Abel MCFADDEN [facility] [id number] Univers 13:45:00 14:37:39 DEBORAH galvan [facility] 2021-11-22 2021-11-22 Outpatient Abel MCFADDEN [facility] [id number] Univers 13:45:00 13:45:00 DEBORAH galvan [facility] 2021-11-22 2021-11-22 Outpatient Abel MARTINEZELLSWORTH, [facility] [id number] Univers 13:00:00 13:00:00 ALEXSANDRA galvan [facility] 2021-11-21 2021-11-21 Travel 1.2.840.1 1.2.330.405 6847 5981 Univers 00:00:00 00:00:00 52697.1.1 350.1.13.10 ity of 3.104.2.[place].698 [place] .3.7305[place] 084.8 [facility] .[facility] [place] 2021-11-21 2021-11-21 Travel 1.2.840.1 1.2.949.512 0138 5981 Univers 00:00:00 00:00:00 75941.1.1 350.1.13.10 ity of 3.104.2.7 [place].698 [place] .[place].355669 084.8 [facility] .[facility] [place] 2021-11-18 2021-11-18 Outpatient R SAM, [facility] [id number] Univers 13:45:00 13:45:00 AISHAT ity of [facility] 2021-11-07 2021-11-07 Patient Seng, 1.2.840.0 [id number] 1518 Univers 00:00:00 00:00:00 Secure Msg Alexsandra 74922.1.1 i ty of [place] 3.104.2.7 [place] .3.715643 [facility] l .[facility] 2021-10-15 2021-10-15 Telephone [place], 1.2.840.3 [id number] Univers 00:00:00 00:00:00 Alexsandra 56970.1.1 ity of [place] 3.104.2.7 [place] .3.183852 [facility] [place] 2021-10-14 2021-10-14 Telephone Seng, 1.2.840.7 [id number] Univers 00:00:00 00:00:00 Alexsandra 43920.1.1 ity of [place] 3.104.2.7 [place] .3.994022 [facility] [place] 2021-10-11 2021-10-11 Office [place], 1.2.840.6 [id number] [id number] Univers 10:00:00 10:20:00 Visit Alexsandra 19946.1.1 ity of [place] 3.104.2.7 [place] .3.646133 [facility] 2021-10-11 2021-10-11 Outpatient R SENG, [facility] [id number] Univers 10:00:00 10:00:00 ALEXSANDRA ity [facility] 2021-10-11 2021-10-11 Outpatient R ELLSWORTH, [facility] [id number] [id number] Univers 10:00:00 10:00:00 ALEXSANDRA ity [facility] 2021-10-11 2021-10-11 Outpatient R ELLSWORTH, [facility] [id number] Univers 10:00:00 10:00:00 [facility] 2021-10-09 2021-10-09 Travel 1.2.840.1 1.2.816.151 5324 7900 Univers 00:00:00 00:00:00 70959.1.1 350.1.13.10 ity of 3.104.2.7 [place].3.698 [place] .[place].410305 084.8 [facility] .[facility] [place] 2021-10-08 2021-10-08 Refill [place], 1.2.840.5 [id number] 0962 Univers 00:00:00 00:00:00 Alexsandra 91608.1.1 ity of [place] 3.104.2.7 [place] .3.836411 [facility] 2021-10-08 2021-10-08 Refill [place], 1.2.840.6 [id number] 9322 0962 Univers 00:00:00 00:00:00 Alexsandra 56936.1.1 ity of [place] 3.104.2.7 [place] .3.151449 [facility] 2021-09-30 2021-09-30 Outpatient R JACQUELIN, [facility] [id number] Univers 14:00:00 14:00:00 MONIQUE ity of [facility] 2021-09-11 2021-09-11 Outpatient R ADAM, [facility] [id number] Univers 14:00:00 14:00:00 NETO ity of [facility] 2021-09-05 2021-09-05 Patient Doctor 1.2.840.2 [id number] 695 Univers 00:00:00 00:00:00 Secure Msg Unassigned, 06631.1.1 ity of [place] 3.104.2.7 [place] .3.848284 [facility] 2021-09-05 2021-09-05 Patient Doctor 1.2.840.4 [id number] 695 Univers 00:00:00 00:00:00 Secure Msg Unassigned, 93869.1.1 ity of [place] 3.104.2.7 [place] .3.121305 [facility] 2021-09-04 2021-09-04 Refill [place], 1.2.840.0 [id number] 9234 5046 Univers 00:00:00 00:00:00 Alexsandra 28000.1.1 ity of [place] 3.104.2.7 [place] .3.064610 [facility] 2021-09-04 2021-09-04 Refill [place], 1.2.840.4 [id number] 9234 5046 Univers 00:00:00 00:00:00 Alexsandra 37771.1.1 ity of [place] 3.104.2.7 [place] .3.567270 [facility] 2021-08-29 2021-08-29 Outpatient R PATY BAKER [facility] [id number] Univers 09:15:00 09:57:10 ity of [facility] 2021-08-29 2021-08-29 Outpatient R OLIVIA PATY [facility] [id number] [id number] Univers 09:15:00 09:15:00 ity of [facility] 2021-08-29 2021-08-29 Travel 1.2.840.1 1.2.962.163 7806 4916 [facility] 00:00:00 00:00:00 11316.1.1 350.1.13.10 ity of 3.104.2.7 [place].3.698 [place] .3.948798 084.8 [facility] .[facility] [place] 2021-08-29 2021-08-29 Travel 1.2.840.1 1.2.963.223 5549 4916 [facility] 00:00:00 00:00:00 35451.1.1 350.1.13.10 ity of 3.104.2.7 4.[place]7.3.698 [place] .3.180733 084.8 [facility] .[facility] [place] 2021-08-29 2021-08-29 Travel 1.2.840.1 1.2.753.942 0438 4916 [facility] 00:00:00 00:00:00 41291.1.1 350.1.13.10 ity of 3.104.2.7 4.[place].7.3.698 [place] .3.900343 084.8 [facility] [place] 2021-08-08 2021-08-08 Outpatient R PATY BAKER [facility] 585 [id number] Univers 10:00:00 10:00:00 ity of [facility] 2021-08-06 2021-08-06 Travel 1.2.840.1 1.2.186.988 8985 3705 Univers 00:00:00 00:00:00 62661.1.1 350.1.13.10 ity of 3.104.2.7 4.[place].7.3.698 [place] .3.441587 084.8 [facility] .[facility] 2021-08-06 2021-08-06 Travel 1.2.840.1 1.2.076.960 1692 3705 Univers 00:00:00 00:00:00 89286.1.1 350.1.13.10 ity of 3.104.2.7 4.[place].7.3.698 [place] .3.969904 084.8 [facility] [place] 2021-08-06 2021-08-06 Travel 1.2.840.1 1.2.960.245 5692 3705 Univers 00:00:00 00:00:00 48936.1.1 350.1.13.10 ity of 3.104.2.7 [place].7.3.698 [place] .3.920563 084.8 [facility] [place] 2021-08-04 2021-08-04 Refill Doctor 1.2.840.3 [id number] 340 Univers 00:00:00 00:00:00 Unassigned, 37653.1.1 ity of [place] 3.104.2.7 [place] .3.826627 [facility] 2021-08-04 2021-08-04 Refill [place], 1.2.840.7 [id number] 9157 6341 Univers 00:00:00 00:00:00 Alexsandra 03865.1.1 ity of [place] 3.104.2.7 [place] .3.702358 [facility] 2021-08-04 2021-08-04 Refill [place], 1.2.840.3 [id number] 9157 6140 Univers 00:00:00 00:00:00 Alexsandra 89469.1.1 ity of [place] 3.104.2.7 [place] .3.535639 [facility] 2021-08-04 2021-08-04 Refill Doctor 1.2.840.4 [id number] 139 Univers 00:00:00 00:00:00 Unassigned, 81395.1.1 ity of [place] 3.104.2.7 [place] .3.326777 [facility] .[facility] 2021-08-04 2021-08-04 Refill [place], 1.2.840.1 [id number] 9157 6341 Univers 00:00:00 00:00:00 Alexsandra 79015.1.1 ity of [place] 3.104.2.7 [place] .3.821252 [facility] .[facility] 2021-08-04 2021-08-04 Refill Doctor 1.2.840.4 [id number] 340 Univers 00:00:00 00:00:00 Unassigned, 55962.1.1 ity of [place] 3.104.2.7 [place] .3.783739 [facility] .[facility] 2021-08-04 2021-08-04 Refill [place], 1.2.840.0 [id number] 9157 6140 Univers 00:00:00 00:00:00 Alexsandra 87315.1.1 ity of [place] 3.104.2.7 [place] .3.789635 [facility] .[facility] 2021-08-04 2021-08-04 Refill Doctor 1.2.840.1 [id number] 139 Univers 00:00:00 00:00:00 Unassigned, 23879.1.1 ity of [place] 3.104.2.7 [place] .3.288837 [facility] .[facility] 2021-08-04 2021-08-04 Refill [place], 1.2.840.7 [id number] 9157 6341 Univers 00:00:00 00:00:00 Alexsandra 58068.1.1 ity of [place] 3.104.2.7 [place] .3.528408 [facility] l .8 [facility] 2021-08-04 2021-08-04 Refill Doctor 1.2.840.1 [id number] 340 Univers 00:00:00 00:00:00 Unassigned, 77598.1.1 ity of [place] 3.104.2.7 [place] .3.374054 [facility] .8 [facility] 2021-08-04 2021-08-04 Refill [place], 1.2.840.0 [id number] 9157 6140 Univers 00:00:00 00:00:00 Alexsandra 95161.1.1 ity of [place] 3.104.2.7 [place] .3.877073 Med[facility] l .8 [facility] 2021-08-04 2021-08-04 Refill Doctor 1.2.840.7 [id number] 139 Univers 00:00:00 00:00:00 Unassigned, 57781.1.1 ity of [place] 3.104.2.7 [place] .3.539461 [facility] .8 [facility] 2021-07-19 2021-07-19 Refill [place], 1.2.840.3 [id number] 9121 3152 Univers 00:00:00 00:00:00 Alexsandra 44104.1.1 ity of [place] 3.104.2.7 [place] .3.428020 [facility] .8 [facility] 2021-07-19 2021-07-19 Refill [place], 1.2.840.5 [id number] 9121 3152 Univers 00:00:00 00:00:00 Alexsandra 50352.1.1 ity of [place] 3.104.2.7 [place] .3.551413 Med[facility] l .8 [facility] 2021-07-19 2021-07-19 Refill [place], 1.2.840.6 [id number] 9121 3152 Univers 00:00:00 00:00:00 Alexsandra 24886.1.1 ity of [place] 3.104.2.7 [place] .3.528016 [facility] [place] 2021-07-17 2021-07-17 Office Seng, [facility] 1.2.840.114 32792 481 Univers 11:00:00 11:20:00 Visit Alexsandra PENA 350.1.13.10 it y of [place] [facility] 4.2.7.2.686 Jon as PEDIATRIC [phone] Wa dical AND [address] [facility] 2021-07-17 2021-07-17 Office Seng, 1.2.840.2 [id number] 9112 7481 Univers 11:00:00 11:20:00 Visit Alexsandra 41334.1.1 ity of [place] 3.104.2.7 [place] .3.898408 Med[facility] l .8 [facility] 2021-07-17 2021-07-17 Office [place], 1.2.840.1 [id number] 9112 7481 Univers 11:00:00 11:20:00 Visit Alexsandra 43005.1.1 ity of [place] 3.104.2.7 [place] .3.779280 [facility] .8 [facility] 2021-07-17 2021-07-17 Office [place], 1.2.840.6 [id number] 9112 7481 Univers 11:00:00 11:20:00 Visit Alexsandra 53013.1.1 ity of [place] 3.104.2.7 [place] .3.125954 [facility] .8 [facility] 2021-07-17 2021-07-17 Outpatient R SENG, [facility] [id number] [id number] Univers 11:00:00 11:00:00 ALEXSANDRA ity of [facility] 2021-07-17 2021-07-17 Telephone [place], 1.2.840.8 [id number] [id number] Univers 00:00:00 00:00:00 Alexsandra 29036.1.1 ity of [place] 3.104.2.7 [place] .3.118318 [facility] l .8 [facility] 2021-07-17 2021-07-17 Travel 1.2.840.1 1.2.830.338 2680 7656 Univers 00:00:00 00:00:00 89427.1.1 350.1.13.10 ity of 3.104.2.7 4.[place]7.3.698 [place] .3.012689 084.8 [facility] .8 [facility] 2021-07-17 2021-07-17 Telephone [place], 1.2.840.7 [id number] Univers 00:00:00 00:00:00 Alexsandra 70342.1.1 ity of [place] 3.104.2.7 [place] .3.075660 [facility] .8 [facility] 2021-07-17 2021-07-17 Travel 1.2.840.1 1.2.077.812 9654 7656 Univers 00:00:00 00:00:00 37418.1.1 350.1.13.10 ity of 3.104.2.7 4.2.7.3.698 [place] .3.823385 084.8 [facility] .[facility] [place] 2021-07-17 2021-07-17 Telephone Seng, 1.2.840.9 [id number] [facility] 00:00:00 00:00:00 Alexsandra 56404.1.1 ity of [place] 3.104.2.7 [place] .3.003912 [facility] l .8 [facility] 2021-07-17 2021-07-17 Travel 1.2.840.1 1.2.665.323 0306 7656 Univers 00:00:00 00:00:00 67894.1.1 350.1.13.10 ity of 3.104.2.7 4.2.7.3.698 [place] .3.021507 084.8 [facility] l .8 [facility] 2021-07-15 2021-07-15 Travel 1.2.840.1 1.2.899.646 9650 4694 Univers 00:00:00 00:00:00 97599.1.1 350.1.13.10 ity of 3.104.2.7 4.2.7.3.698 [place] .3.748258 084.8 [facility] l .8 [facility] 2021-07-15 2021-07-15 Travel 1.2.840.1 1.2.095.014 6039 4694 Univers 00:00:00 00:00:00 37360.1.1 350.1.13.10 ity of 3.104.2.7 4.2.7.3.698 [place] .3.606077 084.8 [facility] l .8 [facility] 2021-07-15 2021-07-15 Travel 1.2.840.1 1.2.059.013 8655 4694 Univers 00:00:00 00:00:00 89430.1.1 350.1.13.10 ity of 3.104.2.7 4.[place].7.3.698 [place] .3.898574 084.8 [facility] [place] 2021-07-09 2021-07-09 Outpatient R SENG [facility] [id number] Univers 14:20:00 14:20:00 ALEXSANDRA ity of [facility] 2021-07-04 2021-07-04 Telephone Seng [facility] 1.2.840.114 907 [id number] Univers 00:00:00 00:00:00 Alexsandra PENA 350.1.13.10 [facility] 4.2.7.2.686 Jon as PEDIATRIC [phone] Wa dicoh AND [address] [place] [address] 2021-07-04 2021-07-04 Telephone Seng, 1.2.840.3 [id number] 90 [id number] Univers 00:00:00 00:00:00 Alexsandra 19956.1.1 ity of [place] 3.104.2.7 [place] .3.100385 [facility] [place] 2021-07-04 2021-07-04 Telephone [place], 1.2.840.6 [id number] 90 [id number] Univers 00:00:00 00:00:00 Alexsandra 31640.1.1 ity of [place] 3.104.2.7 [place] .3.624138 [facility] [place] 2021-07-03 2021-07-03 Patient Doctor 1.2.840.3 [id number] 649 Univers 00:00:00 00:00:00 Secure Msg Unassigned, 79911.1.1 ity of [place] 3.104.2.7 [place] .3.769571 [facility] [place] 2021-07-03 2021-07-03 Patient Doctor 1.2.840.5 [id number] 73644 649 Univers 00:00:00 00:00:00 Secure Msg Unassigned, 80803.1.1 ity of [place] 3.104.2.7 [place] .3.588738 [facility] [place] 2021-07-03 2021-07-03 Patient Doctor 1.2.840.2 [id number] 69397 649 Univers 00:00:00 00:00:00 Secure Msg Unassigned, 17671.1.1 ity of [place] 3.104.2.7 [place] .3.187051 [facility] [place] 2021-06-29 2021-06-29 Telephone [place], 1.2.840.3 [id number] 90 [id number] Univers 00:00:00 00:00:00 Alexsandra 98921.1.1 ity of [place] 3.104.2.7 [place] .3.293376 [facility] [place] 2021-06-29 2021-06-29 Telephone [place], 1.2.840.7 [id number] Univers 00:00:00 00:00:00 Alexsandra 04315.1.1 ity of [place] 3.104.2.7 [place] .3.867677 [facility] .[facility] [place] 2021-06-29 2021-06-29 Telephone [place], 1.2.840.9 [id number] 90 [id number] Univers 00:00:00 00:00:00 Alexsandra 92467.1.1 ity of [place] 3.104.2.7 [place] .3.692506 [facility] [place] 2021-06-14 2021-06-14 Patient Doctor 1.2.840.3 [id number] 314 Univers 00:00:00 00:00:00 Secure Msg Unassigned, 38242.1.1 ity of [place] 3.104.2.7 [place] .3.514971 [facility] [place] 2021-06-14 2021-06-14 Patient Doctor 1.2.840.5 [id number] 06451 314 Univers 00:00:00 00:00:00 Secure Msg Unassigned, 16406.1.1 ity of [place] 3.104.2.7 [place] .3.861056 [facility] [place] 2021-06-14 2021-06-14 Patient Doctor 1.2.840.2 [id number] [id number] 314 Univers 00:00:00 00:00:00 Secure Msg Unassigned, 12680.1.1 ity of [place] 3.104.2.7 [place] .3.493549 [facility] [place] 2021-06-01 2021-06-01 Refill Marin, 1.2.840.1 [id number] 853 Univers 00:00:00 00:00:00 Miya 16395.1.1 ity of 3.104.2.7 [place] .3.590768 [facility] [place] 2021-06-01 2021-06-01 Refill Marin, 1.2.840.0 [id number] 77560 853 Univers 00:00:00 00:00:00 Miya 03741.1.1 ity of 3.104.2.7 [place] .3.076346 [facility] .[facility] [place] 2021-05-28 2021-05-28 Patient Doctor 1.2.840.7 [id number] 48168 558 Univers 00:00:00 00:00:00 Secure Msg Unassigned, 80448.1.1 ity of [place] 3.104.2.7 [place] .3.647791 [facility] .[facility] [place] 2021-05-28 2021-05-28 Patient Doctor 1.2.840.2 [id number] 01096 558 Univers 00:00:00 00:00:00 Secure Msg Unassigned, 06857.1.1 ity of [place] 3.104.2.7 [place] .3.963138 [facility] [place] 2021-05-20 2021-05-20 Outpatient R KORY [facility] [id number] 0343 Univers 14:45:00 14:45:00 MARINE galvan of [facility] 2021-05-18 2021-05-18 Outpatient R SALVADOR [facility] [id number] Univers 20:45:00 20:59:51 EKTA [facility] 2021-05-18 2021-05-18 Urgent Unknown, Attending 1.2.840.1 [id number] Univers 20:45:00 20:59:51 Ekta Russ 96825.1.1 ity of 3.104.2.7 [place] .3.963418 Medica l .8 [facility] 2021-05-18 2021-05-18 Urgent Unknown, Attending 1.2.840.1 [id number] Univers 20:45:00 20:59:51 Ekta Russ 09930.1.1 ity of 3.104.2.7 [place] .3.089200 Medica l .8 [facility] 2021-05-09 2021-05-09 Outpatient PATY REECE [facility] [id number] Univers 10:00:00 10:57:06 ity of [facility] 2021-05-09 2021-05-09 Travel 1.2.840.1 1.2.196.998 0169 4239 Univers 00:00:00 00:00:00 77456.1.1 350.1.13.10 ity of 3.104.2.7 4.2.7.3.698 [place] .3.871395 084.8 Medica l .8 [facility] 2021-05-09 2021-05-09 Travel 1.2.840.1 1.2.927.782 1390 4239 Univers 00:00:00 00:00:00 56474.1.1 350.1.13.10 ity of 3.104.2.7 4.2.7.3.698 [place] .3.384854 084.8 Medica l .8 [facility] 2021-05-06 2021-05-06 Refill [place], 1.2.840.7 [id number] 8927 0057 Univers 00:00:00 00:00:00 Alexsandra 71728.1.1 ity of [place] 3.104.2.7 [place] .3.078584 Med[facility] l .8 [facility] 2021-04-12 2021-04-12 Refill [place], 1.2.840.9 [id number] 8874 2269 Univers 00:00:00 00:00:00 Alexsandra 16733.1.1 ity of [place] 3.104.2.7 [place] .3.329076 Medica l .8 [facility] 2021-04-11 2021-04-11 Outpatient R OLIVIAPATY [facility] [id number] Univers 08:30:00 08:30:00 ity of [facility] 2021-04-10 2021-04-10 Travel 1.2.840.1 1.2.817.113 4644 2313 Univers 00:00:00 00:00:00 05195.1.1 350.1.13.10 ity of 3.104.2.7 4.2.7.3.698 [place] .3.068135 084.8 [facility] .[facility] [place] 2021-04-01 2021-04-01 Travel 1.2.840.1 1.2.353.806 9387 7961 Univers 00:00:00 00:00:00 70871.1.1 350.1.13.10 ity of 3.104.2.7 4.2.7.3.698 [place] .3.973519 084.8 [facility] l .[facility] [place] 2021-03-22 2021-03-22 Outpatient R ARELY HOPKINS [facility] [id number] Univers 09:15:00 09:15:00 ity of [facility] 2021-03-12 2021-03-12 Patient Doctor 1.2.840.9 [id number] 696 Univers 00:00:00 00:00:00 Secure Msg Unassigned, 46085.1.1 ity of [place] 3.104.2.7 [place] .3.729829 [facility] .[facility] [place] 2021-03-08 2021-03-08 Patient Doctor 1.2.840.5 [id number] 142 Univers 00:00:00 00:00:00 Secure Msg Unassigned, 97338.1.1 ity of [place] 3.104.2.7 [place] .3.900350 [facility] [place] 2021-03-07 2021-03-07 Outpatient R OLIVIA PATY [facility] [id number] Univers 08:30:00 08:30:00 ity of [facility] 2021-03-05 2021-03-05 Patient Doctor 1.2.840.8 [id number] 16111 [id number] Univers 00:00:00 00:00:00 Secure Msg Unassigned, 15551.1.1 ity of [place] 3.104.2.7 [place] .3.576031 [facility] [place] 2021-03-01 2021-03-01 [facility] 1.2.840.114 16672 080 Univers 14:44:46 15:04:46 Visit Alexsandra PENA 350.1.13.10 it y of [facility] 4.2.7.2.686 Jon as PEDIATRIC 427.8170252 Wa dical AND [address] [facility] 2021-03-01 2021-03-01 Office Seng, 1.2.840.0 [id number] 8733 7080 Univers 14:44:46 15:04:46 Visit Alexsandra 72881.1.1 ity of [place] 3.104.2.7 [place] .3.813649 Med[facility] l .[facility] 2021-03-01 2021-03-01 [facility] [id number] Univers 14:40:00 14:40:00 ALEXSANDRA ity of [facility] 2021-02-28 2021-02-28 Refill Doctor 1.2.840.4 [id number] 569 Univers 00:00:00 00:00:00 Unassigned, 01037.1.1 ity of [place] 3.104.2.7 [place] .3.414443 Med[facility] l .[facility] 2021-02-28 2021-02-28 Refill Doctor 1.2.840.6 [id number] 567 Univers 00:00:00 00:00:00 Unassigned, 38676.1.1 ity of [place] 3.104.2.7 [place] .3.759133 [facility] .[facility] 2021-02-28 2021-02-28 Travel 1.2.840.1 1.2.329.899 8172 4039 Univers 00:00:00 00:00:00 78129.1.1 350.1.13.10 ity of 3.104.2.7 4.2.7.3.698 [place] .3.903833 084.8 Medica l .8 Branch 2021-02-28 2021-02-28 Refill Doctor 1.2.840.5 [id number] 87210 567 Univers 00:00:00 00:00:00 Unassigned, 12168.1.1 ity of [place] 3.104.2.7 [place] .3.408375 Medica l .8 Branch 2021-02-28 2021-02-28 Refill Doctor 1.2.840.7 [id number] 02639 569 Univers 00:00:00 00:00:00 Unassigned, 76819.1.1 ity of [place] 3.104.2.7 [place] .3.066264 Medica l .8 [facility] 2021-02-28 2021-02-28 Travel 1.2.840.1 1.2.756.298 3641 4039 Univers 00:00:00 00:00:00 66168.1.1 350.1.13.10 ity of 3.104.2.7 4.2.7.3.698 [place] .3.230106 084.8 Medica l .8 Branch 2021-02-16 2021-02-16 Refill [place], 1.2.840.8 [id number] [id number] Univers 00:00:00 00:00:00 Alexsandra 88385.1.1 ity of [place] 3.104.2.7 [place] .3.735610 Medica l .8 Branch 2021-02-16 2021-02-16 Refill [place], 1.2.840.2 [id number] [id number] Univers 00:00:00 00:00:00 Alexsandra 72178.1.1 ity of [place] 3.104.2.7 [place] .3.019120 Medica l .8 [place] 2021-02-01 2021-02-01 Outpatient ARELY LARES [facility] [id number] Univers 10:00:00 10:00:00 ity of [facility] 2021-02-01 2021-02-01 Travel 1.2.840.1 1.2.414.154 5886 2575 Univers 00:00:00 00:00:00 35116.1.1 350.1.13.10 ity of 3.104.2.7 4.[place].3.698 [place] .3.689255 084.8 Medica l .8 Branch 2021-02-01 2021-02-01 Travel 1.2.840.1 1.2.788.853 3230 2575 Univers 00:00:00 00:00:00 89361.1.1 350.1.13.10 ity of 3.104.2.7 4.[place]7.3.698 [place] .3.612064 084.8 Medica l .8 Branch 2021-01-30 2021-01-30 Travel 1.2.840.1 1.2.649.066 4132 0552 Univers 00:00:00 00:00:00 76179.1.1 350.1.13.10 ity of 3.104.2.7 4.[place]7.3.698 [place] .3.101155 084.8 Medica l .8 Branch 2021-01-30 2021-01-30 Travel 1.2.840.1 1.2.770.819 4911 0552 Univers 00:00:00 00:00:00 95332.1.1 350.1.13.10 ity of 3.104.2.7 4.[place]7.3.698 [place] .3.749120 084.8 Medica l .8 Branch 2021-01-21 2021-01-21 Outpatient GCCOVIDV GCCOVIDV [id number] GCCOVID 00:00:00 00:00:00 V 2020-12-28 2020-12-28 Outpatient ARELY LARES [facility] [id number] Univers 10:00:00 10:00:00 ity of [facility] 2020-12-28 2020-12-28 Travel 1.2.840.1 1.2.162.386 1034 [id number] Univers 00:00:00 00:00:00 50459.1.1 350.1.13.10 ity of 3.104.2.7 4[place].3.698 [place] .3.217538 084.8 Medica l .8 [place] 2020-12-14 2020-12-14 Outpatient R ARELY HOPKINS [facility] [id number] Univers 10:00:00 10:00:00 ity of [facility] 2020-12-14 2020-12-14 Travel 1.2.840.1 1.2.334.976 2415 [id number] Univers 00:00:00 00:00:00 98032.1.1 350.1.13.10 ity of 3.104.2.7 4.[place].3.698 [place] .3.927738 084.8 Medica l .8 [place] 2020-12-11 2020-12-11 [place], 1.2.840.4 [id number] Univers 00:00:00 00:00:00 Alexsandra 48404.1.1 ity of [place] 3.104.2.7 [place] .3.377630 Medica l .8 [place] 2020-11-30 2020-11-30 [facility] [id number] Univers 13:30:00 13:30:00 DEBORAH itarsenio [facility] 2020-11-24 2020-11-24 Nurse Paulina Reese 1.2.840.8 [id number] Univers 00:00:00 00:00:00 Triage 40707.1.1 ity of 3.104.2.7 [place] .3.497284 Medica l .8 [place] 2020-11-13 2020-11-13 Office [place], 1.2.840.5 [id number] Univers 14:35:52 15:05:52 Visit Rajinder Uriarte 25850.1.1 i ty of 3.104.2.7 [place] .3.178647 Medica l .8 [place] 2020-11-13 2020-11-13 [facility] [id number] Univers 14:30:00 14:30:00 RAJINDER galvan o f [facility] 2020-11-13 2020-11-13 Travel 1.2.840.1 1.2.087.379 1440 9568 Univers 00:00:00 00:00:00 65226.1.1 350.1.13.10 ity of 3.104.2.7 [place]3.698 [place] .3.835681 084.8 Medica l .8 [place] 2020-11-10 2020-11-10 Refill [place], 1.2.840.5 [id number] [id number] Univers 00:00:00 00:00:00 Alexsandra 58071.1.1 ity of [place] 3.104.2.7 [place] .3.873338 Medica l .8 [place] 2020-11-10 2020-11-10 Refill Serge, 1.2.840.2 [id number] [id number] Univers 00:00:00 00:00:00 [place] 33606.1.1 ity of [place] 3.104.2.7 [place] .3.546979 Medica l .8 [place] 2020-10-31 2020-10-31 [facility] [id number] Univers 08:45:00 08:45:00 DADA [facility] 2020-10-10 2020-10-10 [facility] [id number] Univers 09:15:00 09:15:00 [facility] 2020-10-09 2020-10-09 Refill Flash, 1.2.840.3 [id number] Univers 00:00:00 00:00:00 Pepito Landry 16193.1.1 i ty of 3.104.2.7 [place] .3.879635 Medica l .8 [place] 2020-10-01 2020-10-01 Refill [place], 1.2.840.2 [id number] [id number] Univers 00:00:00 00:00:00 Alexsandra 25490.1.1 ity of [place] 3.104.2.7 [place] .3.613020 Medica l .8 [place] 2020-10-01 2020-10-01 Refill Serge, 1.2.840.4 [id number] [id number] Univers 00:00:00 00:00:00 Keshawn 96083.1.1 ity of [place] 3.104.2.7 [place] .3.668392 Medica l .8 [place] 2020-10-01 2020-10-01 Patient Seng, 1.2.840.1 [id number] [id number] Univers 00:00:00 00:00:00 Secure Msg Alexsandra 36783.1.1 i ty of [place] 3.104.2.7 [place] .3.900617 Medica l .8 [place] 2020-09-27 2020-09-27 [facility] [id number] Univers 15:45:00 15:45:00 GABE ity of [facility] 2020-09-27 2020-09-27 Travel 1.2.840.1 1.2.116.018 3206 [id number] Univers 00:00:00 00:00:00 31416.1.1 350.1.13.10 ity of 3.104.2.[place]3.698 [place] .3.633630 084.8 Medica l .8 [place] 2020-09-21 2020-09-21 Outpatient R ALONDRA, [facility] [id number] Univers 15:00:00 15:00:00 CARLEY ity of [facility] 2020-09-11 2020-09-11 Office Seng, 1.2.840.0 [id number] 8327 [id number] Univers 13:04:54 13:24:54 Visit Alexsandra 50377.1.1 ity of [place] 3.104.2.7 [place] .3.282409 Medica l .8 [place] 2020-09-11 2020-09-11 Outpatient R SENG, [facility] [id number] Univers 13:00:00 13:00:00 ALEXSANDRA ity [facility] 2020-09-10 2020-09-10 Travel 1.2.840.1 1.2.915.474 7946 7674 Univers 00:00:00 00:00:00 56875.1.1 350.1.13.10 ity of 3.104.2.7 4.[place].3.698 [place] .3.900739 084.8 Medica l .8 [place] 2020-09-10 2020-09-10 Patient Doctor 1.2.840.7 [id number] Univers 00:00:00 00:00:00 Secure Msg Unassigned, 08375.1.1 ity of [place] 3.104.2.7 [place] .3.350327 Medica l .8 [place] 2020-09-09 2020-09-09 Refill Flash 1.2.840.3 [id number] 614 Univers 00:00:00 00:00:00 Pepito Landry 64608.1.1 i ty of 3.104.2.7 [place] .3.755754 Medica l .8 [place] 2020-09-09 2020-09-09 Refill Serge 1.2.840.2 [id number] 832 [id number] Univers 00:00:00 00:00:00 [place] 93559.1.1 ity of [place] 3.104.2.7 [place] .3.799127 Medica l .8 [place] 2020-08-23 2020-08-23 Outpatient R ARELY HOPKINS [facility] [id number] Univers 13:30:00 13:30:00 ity of [facility] 2020-08-22 2020-08-22 Travel 1.2.840.1 1.2.214.037 4193 0434 Univers 00:00:00 00:00:00 73842.1.1 350.1.13.10 ity of 3.104.2.7 4.[place].3.698 [place] .3.055383 084.8 Medica l .8 [place] 2020-08-09 2020-08-09 Refill Serge 1.2.840.7 [id number] 822 [id number] Univers 00:00:00 00:00:00 Keshawn 67491.1.1 ity of [place] 3.104.2.7 [place] .3.659450 Medica l .8 [place] 2020-07-20 2020-07-20 Outpatient R ARABELLA [facility] [id number] Univers 09:20:00 09:20:00 RODRÍGUEZ ity of [facility] 2020-07-20 2020-07-20 Imm/Inj Rodríguez Bell 1.2.840.1 [id number] Univers 09:04:42 09:05:00 Visit Nurse, Hernandez Pob Immunization 77380.1.1 ity of 3.104.2.7 [place] .3.697722 Medica l .8 [place] 2020-07-20 2020-07-20 Outpatient GCCOVIDV GCCOVIDV 10865 68592 GCCOVID 00:00:00 00:00:00 2020-07-12 2020-07-12 Outpatient ARELY LARES [facility] 449 [id number] Univers 13:30:00 13:30:00 ity of [facility] 2020-07-12 2020-07-12 Travel 1.2.840.1 1.2.355.409 4511 5735 Univers 00:00:00 00:00:00 15616.1.1 350.1.13.10 ity of 3.104.2.7 4.[place].7.3.698 [place] .3.729423 084.8 Medica l .8 [place] 2020-07-12 2020-07-12 Orders Doctor 1.2.840.9 [id number] Univers 00:00:00 00:00:00 Only Unassigned, 44423.1.1 ity of [place] 3.104.2.7 [place] .3.175760 Medica l .8 [place] 2020-07-06 2020-07-06 Refill Serge 1.2.840.8 [id number] 813 08937 Univers 00:00:00 00:00:00 [place] 87786.1.1 ity of [place] 3.104.2.7 [place] .3.069902 Medica l .8 [place] 2020-07-06 2020-07-06 Refill Zoey 1.2.840.7 [id number] 659 Univers 00:00:00 00:00:00 Wu 76266.1.1 ity of 3.104.2.7 [place] .3.139614 Medica l .8 [place] 2020-06-29 2020-06-29 Outpatient R ARABELLA, [facility] 11460 [id number] Univers 09:20:00 09:20:00 RODRÍGUEZ ity of [facility] 2020-06-29 2020-06-29 Imm/Inj Arabella, Rodríguez Kellogg 1.2.840.1 [id number] Univers 09:00:27 09:07:28 Visit Nurse, Hernandez Pob Immunization 12372.1.1 ity of 3.104.2.7 [place] .3.550728 Medica l .8 [place] 2020-06-29 2020-06-29 Outpatient GCCOVIDV GCCOVIDV 62494 12000 GCCOVID 00:00:00 00:00:00 2020-06-29 2020-06-29 Isela Yip.2.840.1 [id number] 811 [id number] Univers 00:00:00 00:00:00 [place] 10640.1.1 ity of [place] 3.104.2.7 [place] .3.260065 Medica l .8 [place] 2020-06-28 2020-06-28 Outpatient Abel RUDD [facility] [id number] Univers 08:10:00 08:10:00 MARTELL ity of [facility] 2020-06-26 2020-06-26 Patient Tobin, 1.2.840.2 [id number] Univers 00:00:00 00:00:00 Outreach Martell 31559.1.1 ity of [place] 3.104.2.7 [place] .3.100875 Medica l .8 [place] 2020-06-25 2020-06-25 Isela Yip.2.840.7 [id number] 810 [id number] Univers 00:00:00 00:00:00 [place] 92013.1.1 ity of [place] 3.104.2.7 [place] .3.509131 Medica l .8 [place] 2020-06-21 2020-06-21 Patient Doctor 1.2.840.5 [id number] Univers 00:00:00 00:00:00 Secure Msg Unassigned, 94358.1.1 ity of [place] 3.104.2.7 [place] .3.046459 Medica l .8 [place] 2020-06-20 2020-06-20 Patient Serge, 1.2.840.3 [id number] 809 05785 Univers 00:00:00 00:00:00 Secure Msg [place] 86245.1.1 i ty of [place] 3.104.2.7 [place] .3.390737 Medica l .8 Branch 2020-06-20 2020-06-20 Patient Serge, 1.2.840.4 [id number] 809 [id number] Univers 00:00:00 00:00:00 Secure Msg [place] 68800.1.1 i ty of [place] 3.104.2.7 [place] .3.964456 Medica l .8 Branch 2020-06-18 2020-06-18 Office Serge, 1.2.840.7 [id number] 804 [id number] Univers 09:39:03 09:59:03 Visit [place] 76093.1.1 ity of [place] 3.104.2.7 [place] .3.124994 Medica l .8 Branch 2020-06-18 2020-06-18 Outpatient R SERGE, [facility] [id number] [id number] Univers 09:40:00 09:40:00 KESHAWN ity of [facility] 2020-06-18 2020-06-18 Orders Doctor 1.2.840.2 [id number] Univers 00:00:00 00:00:00 Only Unassigned, 56868.1.1 ity of [place] 3.104.2.7 [place] .3.901112 Medica l .8 Branch 2020-06-12 2020-06-12 Patient Serge, 1.2.840.2 [id number] 806 [id number] Univers 00:00:00 00:00:00 Secure Msg [place] 61423.1.1 i ty of [place] 3.104.2.7 [place] .3.672908 Medica l .8 Branch 2020-06-01 2020-06-01 Jasper Valentine, 1.2.840.5 [id number] 804 [id number] Univers 00:00:00 00:00:00 Keshawn 69751.1.1 ity of [place] 3.104.2.7 [place] .3.141282 Medica l .8 Branch 2020-05-27 2020-05-27 Jasper Valentine, 1.2.840.6 [id number] 803 10373 Univers 00:00:00 00:00:00 [place] 37783.1.1 ity of [place] 3.104.2.7 [place] .3.539482 Medica l .8 Branch 2020-05-10 2020-05-10 Outpatient R SERGE, [facility] 45397 [id number] Univers 13:20:00 13:20:00 KESHAWN ity of [facility] 2020-05-07 2020-05-07 Patient Doctor 1.2.840.6 [id number] Univers 00:00:00 00:00:00 Secure Msg Unassigned, 03232.1.1 ity of [place] 3.104.2.7 [place] .3.670901 Medica l .8 Branch 2020-04-28 2020-04-28 Jasper Valentine, 1.2.840.3 [id number] 797 [id number] Univers 00:00:00 00:00:00 Kesahwn 47351.1.1 ity of [place] 3.104.2.7 [place] .3.397682 Medica l .8 Branch 2020-04-23 2020-04-23 Cherry Valentine 1.2.840.8 [id number] Univers 00:00:00 00:00:00 Keshawn 42500.1.1 ity of [place] 3.104.2.7 [place] .3.539329 Medica l .8 Branch 2020-04-23 2020-04-23 Jasper Valentine 1.2.840.3 [id number] 795 [id number] Univers 00:00:00 00:00:00 Keshawn 66587.1.1 ity of [place] 3.104.2.7 [place] .3.451085 Medica l .8 Branch 2020-04-21 2020-04-21 Jasper Valentine, 1.2.840.8 [id number] 795 10007 Univers 00:00:00 00:00:00 [place] 12676.1.1 ity of [place] 3.104.2.7 [place] .3.147654 Medica l .8 Branch 2020-04-21 2020-04-21 Jasper Valentine, 1.2.840.5 [id number] 795 30840 Univers 00:00:00 00:00:00 [place] 96881.1.1 ity of [place] 3.104.2.7 [place] .3.893527 Medica l .8 Branch 2020-04-20 2020-04-20 Jasper Valentine, 1.2.840.7 [id number] 795 [id number] Univers 00:00:00 00:00:00 [place] 58238.1.1 ity of [place] 3.104.2.7 [place] .3.080559 Medica l .8 [place] 2020-03-30 2020-03-30 Jasper Valentine [facility] 1.2.468.237 6315 9685 Univers 00:00:00 00:00:00 [place]ha[place] JEAN 350.1.13.10 it y of [facility] [place].2[place] [phone] Me dical AND [address] [place] [address] E CLINIC 2020-03-20 2020-03-20 Jasper Valentine IDGREGORY 1.2.781.866 8878 0201 Univers 00:00:00 00:00:00 Keshawn PENA 350.1.13.10 it y of [facility] 4[place] 142.2770814 Me dical AND [address] [place] [address] E CLINIC 2020-02-20 2020-02-20 Jasper Valentine [facility] 1.2.371.405 1305 6247 00:00:00 00:00:00 Keshawn LEAGUE 350.1.13.10 [facility] 4.2.7.2.686 PEDIATRIC [phone] AND [address] [place] [address] E CLINIC 2020-02-20 2020-02-20 Jasper Greer [facility] 1.2.840.114 [id number] 50 00:00:00 00:00:00 Wu SPECIALTY 350.1.13.10 CARE 4.2.7.2.686 CENTER AT [phone] [address] 2020-02-20 2020-02-20 Jasper Valentine IDGREGORY 1.2.335.628 1288 6247 Univers 00:00:00 00:00:00 Keshawn LEAGUE 350.1.13.10 it y of [facility] 4[place].2.[place] [phone] Me dical AND [address] [place] [address] E CLINIC 2020-02-20 2020-02-20 Jasper Greer [facility] 1.2.840.114 [id number] Univers 00:00:00 00:00:00 Wu SPECIALTY 350.1.13.10 ity of [place] [phone] Me dical [address] 2020-02-19 2020-02-19 Jasper Valentine IDGREGORY 1.2.483.444 9689 3151 00:00:00 00:00:00 [place] LEAGUE 350.1.13.10 [facility] 4.2.7.2.686 PEDIATRIC [phone] AND [address] [place] [address] E CLINIC 2020-02-19 2020-02-19 Jasper Valentine IDGREGORY 1.2.839.616 1478 3151 Univers 00:00:00 00:00:00 [place] LEAGUE 350.1.13.10 it y of [facility] 4[place]7.2.[place] [phone] Me dical AND [address] [place] [address] E CLINIC 2020-01-19 2020-01-19 Jasper Valentine IDGREGORY 1.2.893.737 6689 8022 00:00:00 00:00:00 [place] LEAGUE 350.1.13.10 [facility] 4.2.7.2.686 PEDIATRIC [phone] AND [address] [place] [address] E CLINIC 2020-01-19 2020-01-19 Jasper Valentine IDGREGORY 1.2.836.219 6292 8022 Univers 00:00:00 00:00:00 [place]ha[place] LEAGUE 350.1.13.10 it y of [facility] 4[place]2.[place] [phone] Me dical AND [address] [facility] 2019-12-30 2019-12-30 Telephone Nurse, Jon 1.2.840.6 [id number] Univers 00:00:00 00:00:00 Urgent 11110.1.1 ity of 3.104.2.7 [place] .3.399193 Medica l .8 [place] 2019-12-27 2019-12-27 Patient Serge, 1.2.840.6 [id number] 769 [id number] Univers 00:00:00 00:00:00 Secure Msg Keshawn 08067.1.1 i ty of [place] 3.104.2.7 [place] .3.098154 Medica l .8 [place] 2019-12-27 2019-12-27 Patient Doctor 1.2.840.1 [id number] Univers 00:00:00 00:00:00 Secure Msg Unassigned, 87377.1.1 ity of [place] 3.104.2.7 [place] .3.768521 Medica l .8 [place] 2019-12-25 2019-12-25 Laboratory Unknown, Attending 1.2.840.1 10 [id number] Univers 16:44:25 16:52:18 Only Nicolas Siddiqui 73937.1.1 ity of NurseJon Urgent 3.104.2.7 [place] .3.971494 Medica l .8 [place] 2019-12-25 2019-12-25 Outpatient R UNKNOWN, [facility] [id number] Univers 16:45:00 16:45:00 ATTENDING ity of [facility] 2019-12-25 2019-12-25 Travel 1.2.840.1 1.2.542.625 2166 7683 Univers 00:00:00 00:00:00 21524.1.1 350.1.13.10 ity of 3.104.2.7 4[place].7.3.698 [place] .3.240531 084.8 Medica l .8 [place] 2019-12-19 2019-12-19 Refill Serge, 1.2.840.6 [id number] 767 15471 Univers 00:00:00 00:00:00 Keshawn 18766.1.1 ity of [place] 3.104.2.7 [place] .3.485581 Medica l .8 Branch 2019-12-09 2019-12-09 Jasper Valentine, 1.2.840.6 [id number] 765 [id number] Univers 00:00:00 00:00:00 Keshawn 59671.1.1 ity of [place] 3.104.2.7 [place] .3.788838 Medica l .8 Branch 2019-11-24 2019-11-24 Orders Doctor 1.2.840.2 [id number] Univers 00:00:00 00:00:00 Only Unassigned, 28384.1.1 ity of [place] 3.104.2.7 [place] .3.321127 Medica l .8 Branch 2019-11-22 2019-11-22 Jasper Valentine 1.2.840.5 [id number] 761 [id number] Univers 00:00:00 00:00:00 [place] 40343.1.1 ity of [place] 3.104.2.7 [place] .3.858140 Medica l .8 Branch 2019-11-19 2019-11-19 Jasper Valentine 1.2.840.5 [id number] 761 [id number] Univers 00:00:00 00:00:00 [place] 64408.1.1 ity of [place] 3.104.2.7 [place] .3.624217 Medica l .8 Branch 2019-11-16 2019-11-16 Orders Doctor 1.2.840.7 [id number] 037 Univers 00:00:00 00:00:00 Only Unassigned, 01789.1.1 ity of [place] 3.104.2.7 [place] .3.652148 Medica l .8 Branch 2019-11-16 2019-11-16 Cherry Greer, 1.2.840.1 [id number] 760 [id number] Univers 00:00:00 00:00:00 Wu 12726.1.1 ity of 3.104.2.7 [place] .3.715307 Medica l .8 Branch 2019-11-08 2019-11-08 Orders Doctor 1.2.840.2 [id number] 933 Univers 00:00:00 00:00:00 Only Unassigned, 37740.1.1 ity of [place] 3.104.2.7 [place] .3.150583 Medica l .8 Branch 2019-10-19 2019-10-19 Jasper Valentine, 1.2.840.9 [id number] 756 [id number] Univers 00:00:00 00:00:00 Keshawn 44544.1.1 ity of [place] 3.104.2.7 [place] .3.234104 Medica l .8 Branch 2019-10-19 2019-10-19 Jasper Valentine, 1.2.840.5 [id number] 756 [id number] Univers 00:00:00 00:00:00 Keshawn 95801.1.1 ity of [place] 3.104.2.7 [place] .3.397307 Medica l .8 [place] 2019-10-18 2019-10-18 Orders Doctor 1.2.840.1 [id number] 998 Univers 00:00:00 00:00:00 Only Unassigned, 72091.1.1 ity of [place] 3.104.2.7 [place] .3.219749 Medica l .8 [place] 2019-10-18 2019-10-18 Telephone Zoey, 1.2.840.9 [id number] 756 [id number] Univers 00:00:00 00:00:00 Wu 23407.1.1 ity of 3.104.2.7 [place] .3.988949 Medica l .8 Branch 2019-10-11 2019-10-11 Jasper Valentine 1.2.840.7 [id number] 755 11153 Univers 00:00:00 00:00:00 Keshawn 66841.1.1 ity of [place] 3.104.2.7 [place] .3.701325 Medica l .8 Branch 2019-10-11 2019-10-11 Jasper Valentine 1.2.840.4 [id number] 755 05637 Univers 00:00:00 00:00:00 [place] 96186.1.1 ity of [place] 3.104.2.7 [place] .3.641505 Medica l .8 [place] 2019-10-06 2019-10-06 Telemedici Pepito Vidales K 1.2.840.1 10 [id number] Univers 06:59:58 15:12:03 ne Visit Wu Greer 23392.1.1 ity of 3.104.2.7 [place] .3.411362 Medica l .8 [place] 2019-10-06 2019-10-06 Outpatient R FLASH [facility] [id number] Univers 13:00:00 13:00:00 PEPITO ity o f [facility] 2019-09-20 2019-09-20 Orders Doctor 1.2.840.1 [id number] Univers 00:00:00 00:00:00 Only Unassigned, 97924.1.1 ity of [place] 3.104.2.7 [place] .3.686428 Medica l .8 [place] 2019-09-19 2019-09-19 Jasper Valentine 1.2.840.8 [id number] 751 [id number] Univers 00:00:00 00:00:00 [place] 16800.1.1 ity of [place] 3.104.2.7 [place] .3.218081 Medica l .8 [place] 2019-09-19 2019-09-19 Jasper Valentine 1.2.840.2 [id number] 751 [id number] Univers 00:00:00 00:00:00 Keshawn 56773.1.1 ity of [place] 3.104.2.7 [place] .3.489902 Medica l .8 [place] 2019-09-15 2019-09-15 Outpatient R ARELY HOPKINS [facility] [id number] Univers 14:15:00 14:15:00 ity of [facility] 2019-09-10 2019-09-10 Cherry Greer 1.2.840.0 [id number] Univers 00:00:00 00:00:00 Wu 15109.1.1 ity of 3.104.2.7 [place] .3.909772 Medica l .8 [place] 2019-09-08 2019-09-08 Outpatient R [facility] [id number] Univers 13:30:00 13:30:00 ity of [facility] 2019-09-08 2019-09-08 Telemedici Sushil Cook 1.2.840.1 [id number] Univers 07:06:54 07:36:54 ne Visit Melina Steinberg 56134.1.1 ity of [place] 3.104.2.7 [place] .3.486369 Medica l .8 [place] 2019-08-26 2019-08-26 [facility] [id number] [id number] Univers 15:00:00 15:00:00 KESHAWN ity [facility] 2019-08-26 2019-08-26 [facility] 96703 [id number] Univers 15:00:00 15:00:00 [facility] 2019-08-22 [facility] 1.2.501.233 [id number] [id number] Univers 00:00:00 00:00:00 Secure Msg [place] LEAGUE 350.1.13.10 ity of [facility] 4.2[place]7.2.[place] [phone] Me dical AND [address] [place] [address] E CLINIC 2019-08-22 2019-08-22 [facility] 1.2.339.069 0190 6840 Univers 00:00:00 00:00:00 Secure Msg [place] LEAGUE 350.1.13.10 ity of [facility] 4.2.7.2.[place] [id number] [place] dical AND [address] [place] [address] E CLINIC 2019-08-19 2019-08-19 Nurse Constantine, 1.2.840.3 [id number] Univers 00:00:00 00:00:00 Triage Deysi Mann 79187.1.1 ity of 3.104.2.7 [place] .3.448849 Medica l .8 [place] 2019-08-19 2019-08-19 Jasper Valentine, 1.2.840.1 [id number] 747 [id number] Univers 00:00:00 00:00:00 Keshawn 58610.1.1 ity of [facility] 3.104.2.7 [place] .3.461459 Medica l .8 [place] 2019-08-19 2019-08-19 Telephone Serge, 1.2.840.3 [id number] Univers 00:00:00 00:00:00 Keshawn 10367.1.1 ity of [place] 3.104.2.7 [place] .3.608211 Medica l .8 [place] 2019-08-19 2019-08-19 Refill Serge, 1.2.840.3 [id number] 747 [id number] Univers 00:00:00 00:00:00 Keshawn 89036.1.1 ity of [place] 3.104.2.7 [place] .3.481839 Medica l .8 [place] 2019-08-18 2019-08-18 Office Serge, 1.2.840.3 [id number] 742 [id number] Univers 13:07:26 13:22:26 Visit [place] 22670.1.1 ity of [place] 3.104.2.7 [place] .3.665756 Medica l .8 [place] 2019-08-18 2019-08-18 Outpatient R SERGE [facility] [id number] [id number] Univers 13:00:00 13:00:00 KESHAWN ity of [facility] 2019-08-18 2019-08-18 Refrafia Valentine, 1.2.840.0 [id number] 747 [id number] Univers 00:00:00 00:00:00 [place] 00635.1.1 ity of [place] 3.104.2.7 [place] .3.214845 Medica l .8 [place] 2019-08-11 2019-08-11 Outpatient Abel DOTSON [facility] [id number] Univers 10:45:00 10:45:00 GABE ity of [facility] 2019-08-11 2019-08-11 Orders Doctor 1.2.840.6 [id number] Univers 00:00:00 00:00:00 Only Unassigned, 53896.1.1 ity of [place] 3.104.2.7 [place] .3.778106 Medica l .8 [place] 2019-08-04 2019-08-04 [id number] [id number] [place] 00:00:00 00:00:00 JEAN PIERRE [facility] 2019-08-01 2019-08-01 Outpatient SANDRA [facility] [id number] [place] 00:00:00 00:00:00 JEAN PIERRE 062 Method i 2019-07-26 2019-07-28 Outpatient JULIANNE, [facility] [id number] [place] 00:00:00 00:00:00 DANIKA Jacinto [facility] 2019-07-25 2019-07-25 Emergency ANMOL, [facility] [id number] 98 [place] 00:00:00 00:00:00 YASIN 764 Method i 2019-07-10 2019-07-10 Refrafia Dick, 1.2.840.7 [id number] 703 Univers 00:00:00 00:00:00 Rosemary Kumar 73437.1.1 i ty of 3.104.2.7 [place] .3.677581 Medica l .8 Branch 2019-07-02 2019-07-02 Refrafia Valentine 1.2.840.6 [id number] 738 [id number] Univers 00:00:00 00:00:00 [place] 21896.1.1 ity of [place] 3.104.2.7 [place] .3.484910 Medica l .8 Branch 2019-07-01 2019-07-01 Refrafia Valentine 1.2.840.8 [id number] 738 [id number] Univers 00:00:00 00:00:00 [place] 61702.1.1 ity of [place] 3.104.2.7 [place] .3.029697 Medica l .8 Branch 2019-06-07 2019-06-07 Refrafia Valentine 1.2.840.6 [id number] 733 [id number] Univers 00:00:00 00:00:00 [place] 45014.1.1 ity of [place] 3.104.2.7 [place] .3.915640 Medica l .8 Branch 2019-05-27 2019-05-27 Cherry Valentine 1.2.840.7 [id number] Univers 00:00:00 00:00:00 [place] 28695.1.1 ity of [place] 3.104.2.7 [place] .3.065406 Medica l .8 Branch 2019-05-26 2019-05-26 Orders Doctor 1.2.840.3 [id number] Univers 00:00:00 00:00:00 Only Unassigned, 40737.1.1 ity of [place] 3.104.2.7 [place] .3.515790 Medica l .8 [place] 2019-05-10 2019-05-10 Telephone Kapil, 1.2.840.8 [id number] 728 [id number] Univers 00:00:00 00:00:00 Rosemary E 66064.1.1 i ty of 3.104.2.7 [place] .3.680269 Medica l .8 Branch 2019-05-10 2019-05-10 Jasper Valentine 1.2.840.4 [id number] 728 [id number] Univers 00:00:00 00:00:00 Keshawn 63164.1.1 ity of [place] 3.104.2.7 [place] .3.672586 Medica l .8 [place] 2019-05-09 2019-05-09 Jasper Dick, 1.2.840.7 [id number] 970 Univers 00:00:00 00:00:00 Rosemary Kumar 57582.1.1 i ty of 3.104.2.7 [place] .3.403547 Medica l .8 [place] 2019-04-12 2019-04-12 Cherry Valentine, 1.2.840.5 [id number] Univers 00:00:00 00:00:00 Keshawn 55372.1.1 ity of [place] 3.104.2.7 [place] .3.861880 Medica l .8 [place] 2019-04-11 2019-04-11 Jasper Valentine 1.2.840.3 [id number] 723 [id number] Univers 00:00:00 00:00:00 [place]hawn 21969.1.1 ity of [place] 3.104.2.7 [place] .3.803309 Medica l .8 Branch 2019-04-10 2019-04-10 Jasper Valentine 1.2.840.1 [id number] 723 [id number] Univers 00:00:00 00:00:00 [place]hawn 71505.1.1 ity of [place] 3.104.2.7 [place] .3.817620 Medica l .8 Branch 2019-04-05 2019-04-05 Jasper Valentine, 1.2.840.1 [id number] 722 [id number] Univers 00:00:00 00:00:00 [place] 20341.1.1 ity of [place] 3.104.2.7 [place] .3.380041 Medica l .8 Branch 2019-03-24 2019-03-24 Orders Doctor 1.2.840.0 [id number] Univers 00:00:00 00:00:00 Only Unassigned, 05518.1.1 ity of [place] 3.104.2.7 [place] .3.757376 Medica l .8 Branch 2019-02-24 2019-02-24 Patient Serge IDGREGORY 1.2.171.466 [id number] Univers 00:00:00 00:00:00 Secure Msg [place] LEAGUE 350.1.13.10 ity of [facility] 4[place] [id number] Wa dical AND [address] [facility] 2019-02-24 2019-02-24 Jasper Valentine, 1.2.840.9 [id number] [id number] Univers 00:00:00 00:00:00 [place] 07127.1.1 ity of [place] 3.104.2.7 [place] .3.170428 Medica l .8 Branch 2019-02-24 2019-02-24 Jasper Valentine, 1.2.840.7 [id number] 715 [id number] Univers 00:00:00 00:00:00 [place] 45326.1.1 ity of [place] 3.104.2.7 [place] .3.516004 Medica l .8 Branch 2019-02-24 2019-02-24 Jasper Valentine, 1.2.840.1 [id number] [id number] Univers 00:00:00 00:00:00 [place] 09410.1.1 ity of [place] 3.104.2.7 [place] .3.237767 Medica l .8 Branch 2019-02-24 2019-02-24 Jasper Valentine, 1.2.840.8 [id number] 715 [id number] Univers 00:00:00 00:00:00 [place] 59419.1.1 ity of [place] 3.104.2.7 [place] .3.262344 Medica l .8 Branch 2019-02-23 2019-02-23 Refill Serge, 1.2.840.4 [id number] 715 [id number] Univers 00:00:00 00:00:00 [place] 49119.1.1 ity of [place] 3.104.2.7 [place] .3.349111 Medica l .8 Branch 2019-02-21 2019-02-21 Telephone Serge, 1.2.840.2 [id number] Univers 00:00:00 00:00:00 [place] 73591.1.1 ity of [place] 3.104.2.7 [place] .3.529564 Medica l .8 Branch 2019-02-18 2019-02-18 Office Serge 1.2.840.8 [id number] Univers 15:49:00 16:04:00 Visit [place] 58376.1.1 ity of [place] 3.104.2.7 [place] .3.911671 Medica l .8 [place] 2019-02-17 2019-02-17 Thread Checker Rosemary Dick.2.840.8 [id number] Univers 09:01:36 16:08:39 Visit Vls-Lab 05804.1.1 ity of 3.104.2.7 [place] .3.027905 Medica l .8 [place] 2019-02-17 2019-02-17 Office Isela Dick.2.840.1 [id number] Univers 09:09:27 10:03:06 Visit Rosemary Heath 39295.1.1 i ty of 3.104.2.7 [place] .3.442391 Medica l .8 [place] 2019-02-11 2019-02-11 Orders Doctor 1.2.840.2 [id number] Univers 00:00:00 00:00:00 Only Unassigned, 55516.1.1 ity of [place] 3.104.2.7 [place] .3.461979 Medica l .8 Branch 2019-02-09 2019-02-09 Refill Serge, 1.2.840.6 [id number] [id number] Univers 00:00:00 00:00:00 [place] 83042.1.1 ity of [place] 3.104.2.7 [place] .3.156703 Medica l .8 [place] 2019-01-31 2019-01-31 Patient Serge, [facility] 1.2.813.822 [id number] Univers 00:00:00 00:00:00 Secure Msg [place] LE[place] 350.1.13.10 ity of [facility] 4[place].2.[place] [phone] Wa dical AND [address] [facility] 2019-01-11 2019-01-11 Office Serge 1.2.840.3 [id number] Univers 08:45:17 09:00:17 Visit [place] 83594.1.1 ity of [facility] 3.104.2.7 [place] .3.943063 Medica l .8 Branch 2019-01-11 2019-01-11 Orders Doctor 1.2.840.1 [id number] Univers 00:00:00 00:00:00 Only Unassigned, 42421.1.1 ity of [place] 3.104.2.7 [place] .3.847251 Medica l .8 Branch 2018-12-21 2018-12-21 Jasper Valentine, 1.2.840.1 [id number] [id number] Univers 00:00:00 00:00:00 [place] 13433.1.1 ity of [place] 3.104.2.7 [place] .3.915810 Medica l .8 Branch 2018-12-20 2018-12-20 Refrafia Valentine, 1.2.840.8 [id number] [id number] Univers 00:00:00 00:00:00 [place] 91987.1.1 ity of [place] 3.104.2.7 [place] .3.771547 Medica l .8 Branch 2018-12-20 2018-12-20 Jasper Valentine 1.2.840.8 [id number] [id number] Univers 00:00:00 00:00:00 [place] 30572.1.1 ity of [place] 3.104.2.7 [place] .3.157202 Medica l .8 Branch 2018-12-14 2018-12-14 Refill Kapil, 1.2.840.5 [id number] Univers 00:00:00 00:00:00 Rosemary E 30147.1.1 i ty of 3.104.2.7 [place] .3.086703 Medica l .8 Branch 2018-11-23 2018-11-23 Refill Serge, 1.2.840.0 [id number] Univers 00:00:00 00:00:00 Keshawn 03443.1.1 ity of [place] 3.104.2.7 [place] .[id number] Medica l .8 Branch 2018-11-19 2018-11-19 Telephone Team, [facility] 1.2.840.4 [id number] Univers 00:00:00 00:00:00 Health 87538.1.1 [place]y [place].2.7 [place] .[id number] Medica l .8 [place] 2018-11-18 2018-11-18 Telephone Kapil, 1.2.840.3 [id number] Univers 00:00:00 00:00:00 Rosemary E 73715.1.1 i ty of 3.104.2.7 [place] .3.973034 Medica l .8 [place] Results Test Description Test Time Test Comments Results Result Comments Source ECG 12 lead 2022-11-20 20:57:17 Test Item Value Reference Range Interpretation Comme nts Ventricular rate (test code = 253) 82 Atrial rate (test code = 255) 82 SC interval (test code = 266) 132 QRSD interval (test code = 260) 82 QT interval (test code = 264) 384 QTC interval (test code = 265) 448 P axis 1 (test code = 267) 54 QRS axis 1 (test code = 268) 78 T wave axis (test code = 270) 46 EKG impression (test code = 273) Normal sinus rhythm-Normal ECG-In automated comparison with ECG of 27-JUL-2019 08:01,-No significant change was found- [facility] [id number] 07:52:00 Test Item Value Reference Range Interpretation Comments POC glucose (test code 206 mg/dL 65-99 H Opera pozo Name: = 69850-8) Fede Shields ID: [id number] Lab Interpretation Abnormal (test code = 62838-8) [facility] HEMOGLOBIN A1C [id number] 20:42:00 Test Item Value Reference Range Interpretation Comments POCT HBA1C (test code = 4548-4) 11.4 % 4-6 A Lab Interpretation (test code = Abnormal 46621-5) [facility] HEMOGLOBIN A1C [id number] 20:42:00 Test Item Value Reference Range Interpretation Comments POCT HBA1C (test code = 4548-4) 11.4 % 4-6 A Lab Interpretation (test code = Abnormal 73999-9) [id number] 08:35:55 Test Item Value Reference Range Interpretation Comments IONIZED CA (test code = 4.70 mg/dL 4.5-5.3 5045169668) PH SERUM (test code = 2190503622) 7.35-7.45 L QUES Lab Interpretation (test code = Abnormal 21534-6) [facility] [id number] 04:46:36 Test Item Value Reference Range Interpretation Comments TSH (test code = See_Comment [Automated message] [id number]) The system [employer] generated this result transmitted ref erence range: 0.45 - 4 .70 mIU/L. The refe rence range was not u sed to interpret this result as normal/abnor mal. Lab Interpretation (test Normal code = 93574-5) [facility], [id number] 04:32:56 Test Item Value Reference Range Interpretation Comments T4 TOTAL (test code = See_Comment [Auto mated [id number]) message] The system which generated this result transmitted reference range : 5.5 - 11.0 mcg/dL. The reference range was not used to interpret this result as normal/abnormal . JEIMY (test code = JEIMY) Normal Range or Expected Values will vary for patients who are on ovulation control drugs or . ? Lab Interpretation Normal (test code = 68582-2) [facility]A1C)2022-01-25 04:20:43 Test Item Value Reference Range Interpretation Comments HGB A1C (test code = 8.2 % 4-5.7 H 4548-4) JEIMY (test code = JEIMY) Reference RangesNormal: <5.7%Prediabetes: 5.7 - 6.4%Diabetes: > 6.5% Lab Interpretation (test Abnormal code = 31952-6) [facility] ([id number])2022-01-25 04:18:51 Test Item Value Reference Range Interpretation Comments NA (test code = 142 mmol/L 135-145 9652135989) K (test code = 3.8 mmol/L 3.5-5 8847027664) CL (test code = 103 mmol/L 98-108 6199327534) CO2 TOTAL (test code 30 mmol/L 23-31 = 2423352926) AGAP (test code = 2-16 7939311219) BUN (test code = 14 mg/dL 7-23 7744344905) GLUCOSE (test code = 78 mg/dL 70-110 3153264335) CREATININE (test code 0.79 mg/dL 0.5-1.04 = 5840101983) TOTAL BILI (test code 0.4 mg/dL 0.1-1.1 = 2880401986) CALCIUM (test code = 9.0 mg/dL 8.6-10.6 2104410339) T PROTEIN (test code 7.2 g/dL 6.3-8.2 = 9470651509) ALBUMIN (test code = 4.6 g/dL 3.5-5 2118329937) ALK PHOS (test code = 72 U/L 34-122 3695052739) ALTv (test code = 18 U/L 5-35 1742-6) AST(SGOT) (test code 27 U/L 13-40 = 0026815664) eGFR (test code = mL/min/1.73m2 9842298466) JEIMY (test code = JEIMY) Association of [...] or urine or abnormalities in imaging tests). [facility] WITH [id number] 04:04:32 Test Item Value Reference Range Interpretation Comments WBC (test code = See_Comment [Automated 6549-2) message] The sy stem which generated this result transmitted reference range : 4.30 - 11.10 10*3/?L. The reference range was not used to interpret this result as normal/abnormal . RBC (test code = See_Comment [Automated 327-4) message] The sy stem which generated this [...] (test code = 37.9 fL 39-49.9 L 86359-4) RDW-CV (test code = 11.8 % 12-15.5 L 788-0) PLT (test code = See_Comment [Automated 777-3) message] The sy stem which generated this result transmitted reference range : 166 - 358 10*3/ ?L. The reference r estee was not used to interpret this result as normal/abnormal . MPV (test code = 11.4 fL 9.5-12.9 02486-6) NRBC/100 WBC (test See_Comment [Automat ed code = 3888702694) message] The system which generated this result transmitted reference range : 0.0 - 10.0 /100 WBCs. The refer ence range was not u sed to interpret th is result as normal/abnormal . NRBC x10^3 (test code See_Comment [Auto mated = 7297897470) message] The s ystem which generated this result transmitted reference range : 10*3/?L. The reference range was not used to interpret this result as normal/abnormal . GRAN MAT (NEUT) % 50.2 % (test code = 770-8) IMM GRAN % (test code 0.20 % = 6810270744) LYMPH % (test code = 42.4 % 736-9) MONO % (test code = 5.7 % 5905-5) EOS % (test code = 0.7 % 713-8) BASO % (test code = 0.8 % 706-2) GRAN MAT x10^3(ANC) 2.99 10*3/uL 1.88-7.09 (test code = 7616913588) IMM GRAN x10^3 (test 0-0.06 code = 5231101200) LYMPH x10^3 (test code 2.53 10*3/uL 1.32-3.29 = 731-0) MONO x10^3 (test code 0.34 10*3/uL 0.33-0.92 = 742-7) EOS x10^3 (test code = 0.04 10*3/uL 0.03-0.39 711-2) BASO x10^3 (test code 0.05 10*3/uL 0.01-0.07 = 704-7) Lab Interpretation Abnormal (test code = 89135-5) [facility] WITH [id number] 04:04:32 Test Item Value Reference Range Interpretation [...] (test code = 37.9 fL 39-49.9 L 67075-8) RDW-CV (test code = 11.8 % 12-15.5 L 788-0) PLT (test code = See_Comment [Automated 777-3) message] The sy stem which generated this result transmitted reference range : 166 - 358 10*3/ ?L. The reference r estee was not used to interpret this result as normal/abnormal . MPV (test code = 11.4 fL 9.5-12.9 19168-8) NRBC/100 WBC (test See_Comment [Automat ed code = 4826894803) message] The system which generated this result transmitted reference range : 0.0 - 10.0 /100 WBCs. The refer ence range was not u sed to interpret th is result as normal/abnormal . NRBC x10^3 (test code See_Comment [Auto mated = 6115837056) message] The s ystem which generated this result transmitted reference range : 10*3/?L. The reference range was not used to interpret this result as normal/abnormal . GRAN MAT (NEUT) % 50.2 % (test code = 770-8) IMM GRAN % (test code 0.20 % = 4725849555) LYMPH % (test code = 42.4 % 736-9) MONO % (test code = 5.7 % 5905-5) EOS % (test code = 0.7 % 713-8) BASO % (test code = 0.8 % 706-2) GRAN MAT x10^3(ANC) 2.99 10*3/uL 1.88-7.09 (test code = 2414066849) IMM GRAN x10^3 (test 0-0.06 code = 8122213967) LYMPH x10^3 (test code 2.53 10*3/uL 1.32-3.29 = 731-0) MONO x10^3 (test code 0.34 10*3/uL 0.33-0.92 = 742-7) EOS x10^3 (test code = 0.04 10*3/uL 0.03-0.39 711-2) BASO x10^3 (test code 0.05 10*3/uL 0.01-0.07 = 704-7) Lab Interpretation Abnormal (test code = 12532-6) [facility]CIFIC [id number] 19:15:00 Test Item Value Reference Range Interpretation [...] U APPEAR (test code = turbid 3267) [facility]IFIC [id number] 19:15:00 Test Item Value Reference Range Interpretation [...] U APPEAR (test code = turbid 3267) [facility]
[2022-12-07 03:12] LABS: Absolute Lymphocytes (CBC) 1.3 K/uL (0.7-4.9); Lymphocytes % 18.7 % (15.3-44.8); MCV 80.9 fL (80-100); MPV 8.4 fL (7.6-11.3)
[2022-12-07] MEDS ORDERED: D5 0.9 NS 1,000 ML IV ONE (03:17)
[2022-12-07] MEDS ORDERED: ONDANSETRON 4 MG/2 ML VIAL ONE (03:21)
[2022-12-07 03:30] LABS: Albumin 3.5 g/dL (3.4-5.0); Bilirubin Total 0.3 mg/dL (0.2-1.0); Potassium 3.1 mEq/L (3.5-5.1); Protein, Total 6.8 g/dL (6.4-8.2)
[2022-12-07] MEDS ORDERED: MAGNES/ALUMIN/SIMET 30ML UCUP ONE (04:33)
[2022-12-07] MEDS ORDERED: FAMOTIDINE 20 MG TAB ONE (04:33)
[2022-12-07] MEDS ORDERED: FAMOTIDINE 20 MG/2 ML VIAL IV ONE (04:34)
[2022-12-07 04:55] LABS: Specific Gravity 1.017 (1.005-1.030); Urine Bilirubin NEGATIVE (Negative); Urine Blood Negative (Negative); Urine Clarity Clear (Clear); Urine Color Light-Yellow (Yellow); Urine Glucose 1+ (Negative); Urine Protein NEGATIVE (Negative); Urine Urobilinogen Normal (Normal)
--- NOTE | 2022-12-07 06:13 | ER ---
Nurse's Notes [facility] Name: Pamela Richter Age: 42 yrs Sex: Female : 1980 Arrival Date: 12/07/2022 Time: 02:41 Bed 4 Private MD: Diagnosis: Hypoglycemia, unspecified;Type 1 diabetes mellitus with hypoglycemia;Hypoglycemia secondary to insulin aspart . Presentation: 12/07 02:44 Chief complaint: EMS states: EMS was toned out for unresponsiveness. Pt is a type one kd3 diabetic. PT initial glucose finger stick on arrival was below 10. Pt was given dextrose and came up to 62 in the ambulance bay and became more responsive. Coronavirus screen: Vaccine status: Patient reports receiving the 2nd dose of the covid vaccine. Ebola Screen: No symptoms or risks identified at this time. Initial Sepsis Screen: Does the patient meet any 2 criteria? No. Patient's initial sepsis screen is negative. Does the patient have a suspected source of infection? No. Patient's initial sepsis screen is negative. Risk Assessment: Do you want to hurt yourself or someone else? Patient reports no desire to harm self or others. Onset of symptoms was December 07, 2022. 02:44 Method Of Arrival: EMS: [facility] kd3 02:44 Acuity: MANDI 3 kd3 Triage Assessment: 02:47 General: Appears in no apparent distress. Behavior is cooperative. Pain: Denies pain. kd3 Neuro: Level of Consciousness is awake, alert, obeys commands, Oriented to person, place, time, situation. Cardiovascular: Patient's skin is warm and dry. Respiratory: Airway is patent Trachea midline Respiratory effort is even, unlabored, Respiratory pattern is regular, symmetrical. GI: No deficits noted. Historical: - Home Meds: 02:47 Novolog U-100 Insulin aspart 100 unit/mL Sub-Q soln [Active]; losartan Oral [Active]; kd3 - PMHx: 02:47 Anxiety; diabetes mellitus; Hypertensive disorder; kd3 - Immunization history:: Adult Immunizations up to date. - Social history:: Smoking status: Patient reports the use of cigarette tobacco products, smokes one-half pack cigarettes per day. - Family history:: not pertinent. Screenin:53 [facility] Fall Risk Assessment (Adult) History of falling in the last 3 months, kd3 including since admission No falls in past 3 months (0 pts) Confusion or Disorientation Yes (5 pts) Intoxicated or Sedated No (0 pts) Impaired Gait No (0 pts) Mobility Assist Device Used No (0 pt) Altered Elimination No (0 pt) Score/Fall Risk Level 0 - 2 = Low Risk Maintained a safe environment. Abuse screen: Denies threats or abuse. Denies injuries from another. Nutritional screening: No deficits noted. Tuberculosis screening: No symptoms or risk factors identified. Assessment: 03:17 General: Appears in no apparent distress. Behavior is calm, cooperative. Pain: Denies kd3 pain. Neuro: Level of Consciousness is awake, alert, obeys commands, Oriented to person, place, time, situation. 03:50 Reassessment: Patient appears in no apparent distress at this time. Patient and/or jb4 family updated on plan of care and expected duration. Pain level reassessed. Patient is alert, oriented x 3, equal unlabored respirations, skin warm/dry/pink. BGL 41 provider notified, see MAR. Given sandwich and grape juice. 04:10 General: pt is currently eating a meal from [employer]. kd3 04:50 Reassessment: Patient and/or family updated on plan of care and expected duration. Pain kd3 level reassessed. Patient is alert, oriented x 3, equal unlabored respirations, skin warm/dry/pink. Patient states feeling better. Patient states symptoms have improved. Vital Signs: 02:44 BP 141 / 100; Pulse 91; Resp 16; Temp 97.2(O); Pulse Ox 96% ; Weight 77.11 kg; kd3 02:53 BP 132 / 86; Pulse 79; Resp 16; Pulse Ox 97% on R/A; kd3 04:11 BP 119 / 83; Pulse 86; Resp 16; Pulse Ox 100% on R/A; kd3 04:50 BP 125 / 86; Pulse 95; Resp 16; Pulse Ox 100% on R/A; kd3 05:46 BP 128 / 87; Pulse 100; Resp 18; Pulse Ox 100% on R/A; kd3 06:17 BP 125 / 94; Pulse 98; Pulse Ox 100% ; kd3 ED Course: 02:44 Patient arrived in ED. kd3 02:47 Triage completed. kd3 02:47 Julio César Guo MD is Attending Physician. sp4 02:47 Arm band placed on left wrist. kd3 02:55 Lisa Carrillo, RN is Primary Nurse. kd3 03:07 Alcohol Level Sent. kd3 03:07 Finger stick results - FOR PT WITH NO ID Sent. kd3 03:07 CBC with Diff Sent. kd3 03:07 CMP Sent. kd3 03:07 Lipase Sent. kd3 03:17 Maintain EMS IV. Dressing intact. Good blood return noted. Site clean \T\ dry. Gauge \T\ kd 3 site: 18 gauge left A/C. Administered Medications: 02:55 Drug: D50W IVP 50 ml Route: IVP; Site: left antecubital; kd3 06:20 Follow up: Response: No adverse reaction kd3 03:17 Drug: Ondansetron IVP 4 mg Route: IVP; Site: left antecubital; kd3 06:20 Follow up: Response: No adverse reaction kd3 03:17 Drug: D5-NS IV 1000 ml Route: IV; Rate: 125 ml/hr; Site: left antecubital; kd3 03:50 Follow up: Rate change 250 ml/hr; Rate increased per provider due to bgl of 41 jb4 03:49 Drug: D10 in Water IVP 250 ml Route: IVP; Site: left antecubital; jb4 06:20 Follow up: Response: No adverse reaction kd3 04:28 Drug: Famotidine IVP 20 mg Route: IVP; Site: left antecubital; kd3 06:20 Follow up: Response: No adverse reaction kd3 04:28 Drug: Alum-Mag Hydroxide-Simeth PO Suspension (200 mg-200 mg-20 mg/5 mL) 30 ml Route: kd3 PO; 06:20 Follow up: Response: No adverse reaction kd3 04:28 Drug: Pantoprazole PO 40 mg Route: PO; kd3 06:20 Follow up: Response: No adverse reaction kd3 Point of Care Testing: Blood Glucose: 02:48 Blood Glucose: 27 mg/dL; kd3 05:40 Blood Glucose: 194 mg/dL; as6 Ranges: Intake: Outcome: 06:12 Discharge ordered by . sp4 06:21 Patient left the ED. kd3 Signatures: Francisco J Aragon RN RN jb4 Todd Mueller RN RN as6 Lisa Carrillo RN RN kd3 Julio César Guo, MD sp4
--- NOTE | 2022-12-07 06:13 | EDPHYS ---
Physician Documentation [facility] [place] Name: Pamela Richter Age: 42 yrs Sex: Female : 1980 Arrival Date: 12/07/2022 Time: 02:41 Bed 4 Private MD: ED Physician Julio César Guo HPI: 12/07 02:47 This 42 yrs old Female presents to ER via EMS with complaints of Low Blood sp4 Sugar. 04:51 Patient presents with EMS secondary to hypoglycemia at home. Patient's boyfriend found sp4 her unresponsive in bed this morning EMS was called and patient blood sugar on arrival was less than detectable by the glucometer. Patient was given IV dextrose and prior to the ER arrival EMS reports blood sugar was 62. On arrival to the emergency room patient appears fatigued and has trouble concentrating. Initial blood sugar in the ER was 27. Patient states that yesterday at 10 AM she used Tresiba insulin 40 units. Later at 7 PM she has injected NovoLog but not sure how many units. Blood sugar after that was 229 and patient injected additional NovoLog 6 units at 11 PM subcutaneous. . Historical: - Home Meds: 02:47 Novolog U-100 Insulin aspart 100 unit/mL Sub-Q soln [Active]; losartan Oral [Active]; kd3 - PMHx: 02:47 Anxiety; diabetes mellitus; Hypertensive disorder; kd3 - Immunization history:: Adult Immunizations up to date. - Social history:: Smoking status: Patient reports the use of cigarette tobacco products, smokes one-half pack cigarettes per day. - Family history:: not pertinent. ROS: 06:07 Constitutional: Negative for fever, chills, and weight loss, syncope and hypoglycemia sp4 prior to arrival Eyes: Negative for injury, pain, redness, and discharge. 06:07 All other systems are negative. Exam: 06:07 Constitutional: This is a well developed, well nourished patient who is awake, alert, sp4 and in no acute distress. Head/Face: Normocephalic, atraumatic. Eyes: Pupils equal round and reactive to light, extra-ocular motions intact. Lids and lashes normal. Conjunctiva and sclera are not injected. Cornea within normal limits. Periorbital areas with no swelling, redness, or edema. ENT: Nares patent. No nasal discharge, no septal abnormalities noted. Tympanic membranes are normal and external auditory canals are clear. Oropharynx with no redness, swelling, or masses, exudates, or evidence of obstruction, uvula midline. Mucous membranes moist. Neck: Trachea midline, no thyromegaly or masses palpated, and no cervical lymphadenopathy. Supple, full range of motion without nuchal rigidity, or vertebral point tenderness. Chest/axilla: Normal chest wall appearance and motion. Nontender with no deformity. No lesions are appreciated. Cardiovascular: Regular rate and rhythm with a normal S1 and S2. No gallops, murmurs, or rubs. Normal PMI, no JVD. No pulse deficits. Respiratory: Lungs have equal breath sounds bilaterally, clear to auscultation and percussion. No rales, rhonchi or wheezes noted. No increased work of breathing, no retractions or nasal flaring. Abdomen/GI: Soft, non-tender, with normal bowel sounds. No distension or tympany. No guarding or rebound. No evidence of tenderness throughout. Back: No spinal tenderness. No costovertebral tenderness. Skin: Warm, dry with normal turgor. Normal color with no rashes, no lesions, and no evidence of cellulitis. MS/ Extremity: Pulses equal, no cyanosis. Neurovascular intact. Full, normal range of motion. Neuro: Awake and alert, GCS 15, oriented to person, place, time, and situation. Cranial nerves II-XII grossly intact. Motor strength 5/5 in all extremities. Sensory grossly intact. Psych: Awake, alert, with orientation to person, place and time. Behavior, mood, and affect are within normal limits Vital Signs: 02:44 BP 141 / 100; Pulse 91; Resp 16; Temp 97.2(O); Pulse Ox 96% ; Weight 77.11 kg; kd3 02:53 BP 132 / 86; Pulse 79; Resp 16; Pulse Ox 97% on R/A; kd3 04:11 BP 119 / 83; Pulse 86; Resp 16; Pulse Ox 100% on R/A; kd3 04:50 BP 125 / 86; Pulse 95; Resp 16; Pulse Ox 100% on R/A; kd3 05:46 BP 128 / 87; Pulse 100; Resp 18; Pulse Ox 100% on R/A; kd3 06:17 BP 125 / 94; Pulse 98; Pulse Ox 100% ; kd3 MDM: 03:13 Patient medically screened. sp4 06:09 Differential diagnosis: DKA, hyperglycemia, hyperthyroidism, hypoglycemic episode, sp4 hypothyroidism. Data reviewed: vital signs, nurses notes, EMS record, lab test result(s), CBC, electrolytes, hepatic panel. Consideration of Admission/Observation Patient was admitted/placed on observation. Escalation of care including admission/observation considered. ED course: Patient was given IV dextrose and patient also having eaten a water burger. Patient feels normal at this time. Insulin aspart or NovoLog patient to work at 11 PM has a half-life of 81 minutes, slightly patient has metabolized most of this insulin . . ED course: After the period of blood sugar monitoring has elapsed and patient sugars proven to be stable patient is stable for discharge home. Will advise blood sugar checks at home every 4 hours to prevent another hypoglycemic episode. Will advise second breakfast this morning. . 12/07 02:49 Order name: CBC with Diff; Complete Time: 03:59 sp4 12/07 02:49 Order name: CMP; Complete Time: 03:59 sp4 12/07 02:49 Order name: Lipase; Complete Time: 03:59 sp4 12/07 02:49 Order name: Urinalysis w/ reflexes; Complete Time: 04:55 sp4 12/07 02:49 Order name: Finger stick results - FOR PT WITH NO ID kd3 12/07 02:49 Order name: Alcohol Level; Complete Time: 03:59 sp4 12/07 03:20 Order name: Glucose, Ancillary Testing; Complete Time: 03:59 EDMS 12/07 03:56 Order name: Glucose, Ancillary Testing; Complete Time: 03:59 EDMS 12/07 04:44 Order name: Glucose, Ancillary Testing; Complete Time: 04:55 EDMS 12/07 05:51 Order name: Glucose, Ancillary Testing; Complete Time: 06:05 EDMS 12/07 02:49 Order name: IV Saline Lock; Complete Time: 02:51 sp4 12/07 02:49 Order name: Labs collected and sent; Complete Time: 03:07 sp4 Administered Medications: 02:55 Drug: D50W IVP 50 ml Route: IVP; Site: left antecubital; kd3 06:20 Follow up: Response: No adverse reaction kd3 03:17 Drug: Ondansetron IVP 4 mg Route: IVP; Site: left antecubital; kd3 06:20 Follow up: Response: No adverse reaction kd3 03:17 Drug: D5-NS IV 1000 ml Route: IV; Rate: 125 ml/hr; Site: left antecubital; kd3 03:50 Follow up: Rate change 250 ml/hr; Rate increased per provider due to bgl of 41 jb4 03:49 Drug: D10 in Water IVP 250 ml Route: IVP; Site: left antecubital; jb4 06:20 Follow up: Response: No adverse reaction kd3 04:28 Drug: Famotidine IVP 20 mg Route: IVP; Site: left antecubital; kd3 06:20 Follow up: Response: No adverse reaction kd3 04:28 Drug: Alum-Mag Hydroxide-Simeth PO Suspension (200 mg-200 mg-20 mg/5 mL) 30 ml Route: kd3 PO; 06:20 Follow up: Response: No adverse reaction kd3 04:28 Drug: Pantoprazole PO 40 mg Route: PO; kd3 06:20 Follow up: Response: No adverse reaction kd3 Point of Care Testing: Blood Glucose: 02:48 Blood Glucose: 27 mg/dL; kd3 05:40 Blood Glucose: 194 mg/dL; as6 Ranges: Critical Glucose Levels:Adult <50 mg/dl or >400 mg/dl <40 mg/dl or >180 mg/dl Disposition Summary: 12/07/22 06:12 Discharge Ordered Location: Home sp4 Problem: new sp4 Symptoms: have improved sp4 Condition: Stable sp4 Diagnosis - Hypoglycemia, unspecified sp4 - Type 1 diabetes mellitus with hypoglycemia sp4 - Hypoglycemia secondary to insulin aspart . sp4 Followup: sp4 - With: Private Physician - When: 1 - 2 days - Reason: Recheck today's complaints Discharge Instructions: - Discharge Summary Sheet sp4 - Hypoglycemia sp4 Forms: - [email or web address] sp4 Signatures: Dispatcher [employer] Francisco J Reyes RN RN jb4 Lisa Carrillo RN RN kd3 Julio César Guo MD MD sp4
[2022-12-07 06:26] VITALS: TEMP 97.2
[2022-12-07 06:29] VITALS: O2SAT 100
[2022-12-07 06:34] VITALS: BP 125/94
== END 2022-12-07 06:21 | disposition home or self-care (01) ==
LOC: ER 02:41
DX: E10.649 Type 1 diabetes mellitus with hypoglycemia without coma (principal); Z79.4 Long term (current) use of insulin; I10 Essential (primary) hypertension; F17.210 Nicotine dependence, cigarettes, uncomplicated
CPT/HCPCS: 36415; 80053; 81003; 82077; 82947; 83690; 85025; 96374; 96375; 99284; J2405; J7042

== ENCOUNTER 2022-12-24 02:43 | Emergency (ER) | payer MEDICARE ==
--- OUTSIDE RECORDS SUMMARY | 2022-12-24 03:05 | XMS REPORT | Continuity of Care Document ---
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 anch E Other SPACER-MASK (Shortness ,ADULT) of breath; Spcr use as directed with inhaler). May substitute albuterol Yes [id number] 2{puff} Inhale 2 [facility] 90 2-23 Puffs ity of mcg/actuati 00:00: every 6 [place] as on inhaler 00 (six) Medical hours as Branch needed for Wheezing or Shortness of Breath. inhalat.spa Yes [id number] 1{each} 1 Each [facility] cing 2-23 every 6 ity of dev,large 00:00: (six) [place] mask 00 hours as Medical (BREATHERIT needed for Br anch E Other SPACER-MASK (Shortness ,ADULT) of breath; Spcr use as directed with inhaler). May substitute albuterol Yes [id number] 2{puff} Inhale 2 [facility] 90 2-23 Puffs ity of mcg/actuati 00:00: every 6 [place] as on inhaler 00 (six) Medical hours as Branch needed for Wheezing or Shortness of Breath. inhalat.spa Yes [id number] 1{each} 1 Each [facility] cing 2-23 every 6 ity of dev,large 00:00: (six) [place] mask 00 hours as Medical (BREATHERIT needed for Br anch E Other SPACER-MASK (Shortness ,ADULT) of breath; Spcr use as directed with inhaler). May substitute albuterol Yes [id number] 2{puff} Inhale 2 [facility] 90 2-23 Puffs ity of mcg/actuati 00:00: every 6 [place] as on inhaler 00 (six) Medical hours as Branch needed for Wheezing or Shortness of Breath. inhalat.spa Yes [id number] 1{each} 1 Each [facility] cing 2-23 every 6 ity of dev,large 00:00: (six) [place] mask 00 hours as Medical (BREATHERIT needed for Br anch E Other SPACER-MASK (Shortness ,ADULT) of breath; Spcr use as directed with inhaler). May substitute insulin Yes [id number] inject 20 [facility] glargine 2-20 Units ity of (LANTUS 00:00: under the [place] U-100 00 skin twice Medical INSULIN) a day. Branch 100 unit/mL injection insulin Yes [id number] inject 20 [facility] glargine 2-20 Units ity of (LANTUS 00:00: under the [place] U-100 00 skin twice Medical INSULIN) a day. Branch 100 unit/mL injection Insulin Yes [id number] Use to Uni vers Syringe-Nee 2-20 inject ity of dle U-100 1 00:00: insulin 4X [place] mL 31 gauge 00 daily. Medica l x 10/21 Syrg DX:[email or web address] [facility] Insulin Yes [id number] Use to Uni vers Syringe-Nee 2-20 inject ity of dle U-100 1 00:00: insulin 4X [place] mL 31 gauge 00 daily. Medica l x 516 Syrg DX:[email or web address] [facility] insulin Yes [id number] inject 20 [facility] glargine 2-20 Units ity of (LANTUS 00:00: under the [place] U-100 00 skin twice Medical INSULIN) a day. Branch 100 unit/mL injection Insulin Yes [id number] Use to Uni vers Syringe-Nee 2-20 inject ity of dle U-100 1 00:00: insulin 4X [place] mL 31 gauge 00 daily. Medica l x 5 Syrg DX:[email or web address] [facility] insulin Yes [id number] inject 20 [facility] glargine 2-20 Units ity of (LANTUS 00:00: under the [place] U-100 00 skin twice Medical INSULIN) a day. Branch 100 unit/mL injection Insulin Yes [id number] Use to Uni vers Syringe-Nee 2-20 inject ity of dle U-100 1 00:00: insulin 4X [place] mL 31 gauge 00 daily. Medica l x 5/16 Syrg DX:[email or web address] [facility] insulin Yes [id number] inject 20 [facility] glargine 2-20 Units ity of (LANTUS 00:00: under the [place] U-100 00 skin twice Medical INSULIN) a day. Branch 100 unit/mL injection Insulin Yes [id number] Use to Uni vers Syringe-Nee 2-20 inject ity of dle U-100 1 00:00: insulin 4X [place] mL 31 gauge 00 daily. Medica l x 5/16 Syrg DX:[email or web address] [facility] insulin Yes [id number] inject 20 [facility] glargine 2-20 Units ity of (LANTUS 00:00: under the [place] U-100 00 skin twice Medical INSULIN) a day. Branch 100 unit/mL injection Insulin Yes [id number] Use to Uni vers Syringe-Nee 2-20 inject ity of dle U-100 1 00:00: insulin 4X [place] mL 31 gauge 00 daily. Medica l x 5/16 Syrg DX:[email or web address] [facility] insulin Yes [id number] inject 20 [facility] glargine 2-20 Units ity of (LANTUS 00:00: under the [place] U-100 00 skin twice Medical INSULIN) a day. Branch 100 unit/mL injection Insulin Yes [id number] Use to Uni vers Syringe-Nee 2-20 inject ity of dle U-100 1 00:00: insulin 4X [place] mL 31 gauge 00 daily. Medica l x 5/16 Syrg DX:[email or web address] [facility] Insulin Yes [id number] Use to Uni vers Syringe-Nee 2-20 inject ity of dle U-100 1 00:00: insulin 4X [place] mL 31 gauge 00 daily. Medica l x 5/16 Syrg DX:[email or web address] [facility] Insulin Yes [id number] Use to Uni vers Syringe-Nee 2-20 inject ity of dle U-100 1 00:00: insulin 4X [place] mL 31 gauge 00 daily. Medica l x 5/16 Syrg DX:[email or web address] [facility] Insulin Yes [id number] Use to Uni vers Syringe-Nee 2-20 inject ity of dle U-100 1 00:00: insulin 4X [place] mL 31 gauge 00 daily. Medica l x 5/16 Syrg DX:[email or web address] [facility] Insulin Yes [id number] Use to Uni vers Syringe-Nee 2-20 inject ity of dle U-100 1 00:00: insulin 4X [place] mL 31 gauge 00 daily. Medica l x 5/16 Syrg DX:[email or web address] [facility] Insulin Yes [id number] Use to Uni vers Syringe-Nee 2-20 inject ity of dle U-100 1 00:00: insulin 4X [place] mL 31 gauge 00 daily. Medica l x 5/16 Syrg DX:[email or web address] [facility] Insulin Yes [id number] Use to Uni vers Syringe-Nee 2-20 inject ity of dle U-100 1 00:00: insulin 4X [place] mL 31 gauge 00 daily. Medica l x 5/16 Syrg DX:[email or web address] [facility] Insulin Yes [id number] Use to Uni vers Syringe-Nee 2-20 inject ity of dle U-100 1 00:00: insulin 4X [place] mL 31 gauge 00 daily. Medica l x 516 Syrg DX:[email or web address] [facility] Insulin Yes [id number] Use to Uni vers Syringe-Nee 2-20 inject ity of dle U-100 1 00:00: insulin 4X [place] mL 31 gauge 00 daily. Medica l x 16 Syrg DX:[email or web address] [facility] Insulin Yes [id number] Use to Uni vers Syringe-Nee 2-20 inject ity of dle U-100 1 00:00: insulin 4X [place] mL 31 gauge 00 daily. Medica l x 516 Syrg DX:[email or web address] [facility] insulin 2022- No [id number] inject 20 [facility] glargine 2-20 03-06 Units ity of ([place] 00:00: 00:00 [place] U-100 00 :00 skin twice Medical INSULIN) a day. Branch 100 unit/mL injection insulin 2022- No [id number] inject 20 [facility] glargine 2-20 03-06 Units ity of ([place] 00:00: 00:00 [place] U-100 00 :00 skin twice Medical INSULIN) a day. Branch 100 unit/mL injection medroxyPROG 2022-0 Yes [id number] 5mg Take 1 [facility] ESTERone 5 2-07 tablet by ity of mg tablet 00:00: [place] 00 the Medical morning. Branch medroxyPROG 2022-0 Yes [id number] 5mg Take 1 [facility] ESTERone 5 2-07 tablet by ity of mg tablet 00:00: [place] 00 the Medical morning. Branch medroxyPROG 2022-0 Yes [id number] 5mg Take 1 [facility] ESTERone 5 2-07 tablet by ity of mg tablet 00:00: [place] 00 the Medical morning. Branch medroxyPROG 2022-0 Yes [id number] 5mg Take 1 [facility] ESTERone 5 2-07 tablet by ity of mg tablet 00:00: [place] 00 the Medical morning. Branch medroxyPROG 2023-0 Yes [id number] 5mg Take 1 [facility] ESTERone 5 2-07 tablet by ity of mg tablet 00:00: [place] 00 the Medical morning. Branch medroxyPROG 2023-0 Yes [id number] 5mg Take 1 [facility] ESTERone 5 2-07 tablet by ity of mg tablet 00:00: [place] 00 the Medical morning. Branch medroxyPROG 2023-0 Yes [id number] 5mg Take 1 [facility] ESTERone 5 2-07 tablet by ity of mg tablet 00:00: [place] 00 the Medical morning. Branch medroxyPROG 2023-0 Yes [id number] 5mg Take 1 [facility] ESTERone 5 2-07 tablet by ity of mg tablet 00:00: [place] 00 the Medical morning. Branch medroxyPROG 2023-0 Yes [id number] 5mg Take 1 [facility] ESTERone 5 2-07 tablet by ity of mg tablet 00:00: [place] 00 the Medical morning. Branch medroxyPROG 2023-0 Yes [id number] 5mg Take 1 [facility] ESTERone 5 2-07 tablet by ity of mg tablet 00:00: [place] 00 the Medical morning. Branch medroxyPROG 2023-0 Yes [id number] 5mg Take 1 [facility] ESTERone 5 2-07 tablet by ity of mg tablet 00:00: [place] 00 the Medical morning. Branch medroxyPROG 2023-0 Yes [id number] 5mg Take 1 [facility] ESTERone 5 2-07 tablet by ity of mg tablet 00:00: [place] 00 the Medical morning. Branch medroxyPROG 2023-0 Yes [id number] 5mg Take 1 [facility] ESTERone 5 2-07 tablet by ity of mg tablet 00:00: [place] 00 the Medical morning. Branch medroxyPROG 2023-0 Yes [id number] 5mg Take 1 [facility] ESTERone 5 2-07 tablet by ity of mg tablet 00:00: [place] 00 the Medical morning. Branch medroxyPROG 2023-0 Yes [id number] 5mg Take 1 [facility] ESTERone 5 2-07 tablet by ity of mg tablet 00:00: [place] 00 the Medical morning. Branch medroxyPROG 2023-0 Yes [id number] 5mg Take 1 [facility] ESTERone 5 2-07 tablet by ity of mg tablet 00:00: [place] 00 the Medical morning. Branch medroxyPROG 2023-0 Yes [id number] 5mg Take 1 [facility] ESTERone 5 2-07 tablet by ity of mg tablet 00:00: [place] 00 the Medical morning. Branch medroxyPROG 2023-0 Yes [id number] 5mg Take 1 [facility] ESTERone 5 2-07 tablet by ity of mg tablet 00:00: [place] 00 the Medical morning. Branch medroxyPROG 2023-0 Yes [id number] 5mg Take 1 [facility] ESTERone 5 2-07 tablet by ity of mg tablet 00:00: [place] 00 the Medical morning. Branch medroxyPROG 2023-0 Yes [id number] 5mg Take 1 [facility] ESTERone 5 2-07 tablet by ity of mg tablet 00:00: [place] 00 the Medical morning. Branch medroxyPROG 2023-0 Yes [id number] 5mg Take 1 [facility] ESTERone 5 2-07 tablet by ity of mg tablet 00:00: [place] 00 the Medical morning. Branch medroxyPROG 2023-0 Yes [id number] 5mg Take 1 [facility] ESTERone 5 2-07 tablet by ity of mg tablet 00:00: [place] 00 the Medical morning. Branch medroxyPROG 2023-0 Yes [id number] 5mg Take 1 [facility] ESTERone 5 2-07 tablet by ity of mg tablet 00:00: [place] 00 the Medical morning. Branch medroxyPROG 2023-0 Yes [id number] 5mg Take 1 [facility] ESTERone 5 2-07 tablet by ity of mg tablet 00:00: [place] 00 the Medical morning. Branch medroxyPROG 2023-0 Yes [id number] 5mg Take 1 [facility] ESTERone 5 2-07 tablet by ity of mg tablet 00:00: [place] 00 the Medical morning. Branch medroxyPROG 2023-0 Yes [id number] 5mg Take 1 [facility] ESTERone 5 2-07 tablet by ity of mg tablet 00:00: [place] 00 the Medical morning. Branch medroxyPROG 2023-0 Yes [id number] 5mg Take 1 [facility] ESTERone 5 2-07 tablet by ity of mg tablet 00:00: [place] 00 the Medical morning. Branch medroxyPROG 2023-0 Yes [id number] 5mg Take 1 [facility] ESTERone 5 2-07 tablet by ity of mg tablet 00:00: [place] 00 the Medical morning. Branch medroxyPROG 2023-0 Yes [id number] 2.5mg Take 1 [facility] ESTERone 2-03 tablet by ity of 2.5 mg 00:00: mouth in [place] tablet 00 the Medical morning. Branch medroxyPROG 2023-0 Yes [id number] 2.5mg Take 1 [facility] ESTERone 2-03 tablet by ity of 2.5 mg 00:00: mouth in [place] tablet 00 the Medical morning. Branch medroxyPROG 3-0 2023- No [id number] 2.5mg Take 1 [facility] ESTERone 2-03 02-07 tablet by ity o f 2.5 mg 00:00: 00:00 mouth in [place] tablet 00 :00 the Medical morning. Branch insulin 2022-0 Yes [id number] inject 20 [facility] glargine 2-02 Units ity of (LANTUS 00:00: under the [place] U-100 00 skin twice Medical INSULIN) a day. Branch 100 unit/mL injection insulin 2022-0 Yes [id number] inject 20 [facility] glargine 2-02 Units ity of (LANTUS 00:00: under the [place] U-100 00 skin twice Medical INSULIN) a day. Branch 100 unit/mL injection insulin 2022-0 Yes [id number] inject 20 [facility] glargine 2-02 Units ity of (LANTUS 00:00: under the [place] U-100 00 skin twice Medical INSULIN) a day. Branch 100 unit/mL injection insulin 2022-0 Yes [id number] inject 20 [facility] glargine 2-02 Units ity of (LANTUS 00:00: under the [place] U-100 00 skin twice Medical INSULIN) a day. Branch 100 unit/mL injection insulin 0 Yes [id number] inject 20 [facility] glargine 2-02 Units ity of (LANTUS 00:00: under the [place] U-100 00 skin twice Medical INSULIN) a day. Branch 100 unit/mL injection insulin 0 Yes [id number] inject 20 [facility] glargine 2-02 Units ity of (LANTUS 00:00: under the [place] U-100 00 skin twice Medical INSULIN) a day. Branch 100 unit/mL injection insulin 0 Yes [id number] inject 20 [facility] glargine 2-02 Units ity of (LANTUS 00:00: under the [place] U-100 00 skin twice Medical INSULIN) a day. Branch 100 unit/mL injection insulin 0 Yes [id number] inject 20 [facility] glargine 2-02 Units ity of (LANTUS 00:00: under the [place] U-100 00 skin twice Medical INSULIN) a day. Branch 100 unit/mL injection insulin Yes [id number] inject 20 [facility] glargine 2-02 Units ity of (LANTUS 00:00: under the [place] U-100 00 skin twice Medical INSULIN) a day. Branch 100 unit/mL injection insulin Yes [id number] inject 20 [facility] glargine 2-02 Units ity of (LANTUS 00:00: under the [place] U-100 00 skin twice Medical INSULIN) a day. Branch 100 unit/mL injection insulin 0 Yes [id number] inject 20 [facility] glargine 2-02 Units ity of (LANTUS 00:00: under the [place] U-100 00 skin twice Medical INSULIN) a day. Branch 100 unit/mL injection insulin 0 Yes [id number] inject 20 [facility] glargine 2-02 Units ity of (LANTUS 00:00: under the [place] U-100 00 skin twice Medical INSULIN) a day. Branch 100 unit/mL injection insulin 0 Yes [id number] inject 20 [facility] glargine 2-02 Units ity of (LANTUS 00:00: under the [place] U-100 00 skin twice Medical INSULIN) a day. Branch 100 unit/mL injection insulin 0 Yes [id number] inject 20 [facility] glargine 2-02 Units ity of (LANTUS 00:00: under the [place] U-100 00 skin twice Medical INSULIN) a day. Branch 100 unit/mL injection insulin 2022- No [id number] inject 20 [facility] glargine 2-02 02-20 Units ity of ([place] 00:00: 00:00 [place] U-100 00 :00 skin twice Medical INSULIN) a day. Branch 100 unit/mL injection insulin 2022- No [id number] inject 20 [facility] glargine 2-02 02-20 Units ity of ([place] 00:00: 00:00 [place] U-100 00 :00 skin twice Medical INSULIN) a day. Branch 100 unit/mL injection insulin Yes [id number] inject 20 [facility] glargine 1-30 Units ity of (LANTUS 00:00: under the [place] U-100 00 skin twice Medical INSULIN) a day. Branch 100 unit/mL injection insulin Yes [id number] inject 20 [facility] glargine 1-30 Units ity of (LANTUS 00:00: under the [place] U-100 00 skin twice Medical INSULIN) a day. Branch 100 unit/mL injection insulin Yes [id number] inject 20 [facility] glargine 1-30 Units ity of (LANTUS 00:00: under the [place] U-100 00 skin twice Medical INSULIN) a day. Branch 100 unit/mL injection insulin 2022- No [id number] inject 20 [facility] glargine 1-30 02-02 Units ity of ([place] 00:00: 00:00 [place] the [place] U-100 00 :00 skin twice Medical INSULIN) a day. Branch 100 unit/mL injection LAMOTRIGINE Yes [id number] 200mg TAKE 2 [facility] 100 mg 1-18 TABLETS BY ity of tablet 00:00: MOUTH IN [place] [address] THE Medical MORNING Branch PRAZOSIN 1 Yes [id number] 1mg TAKE 1 U nivers mg capsule 1-18 CAPSULE BY ity of 00:00: MOUTH AT [place] 00 BEDTIME Medical Branch LAMOTRIGINE Yes [id number] 200mg TAKE 2 [facility] 100 mg 1-18 TABLETS BY ity of tablet 00:00: MOUTH IN [place] 00 THE Medical MORNING Branch PRAZOSIN 1 2022-0 Yes [id number] 1mg TAKE 1 U nivers mg capsule 1-18 CAPSULE BY ity of 00:00: MOUTH AT [place] BEDTIME Medical Branch LAMOTRIGINE 2022-0 Yes [id number] 200mg TAKE 2 [facility] 100 mg 1-18 TABLETS BY ity of tablet 00:00: MOUTH IN [place] THE Medical MORNING Branch PRAZOSIN 1 2022-0 Yes [id number] 1mg TAKE 1 U nivers mg capsule 1-18 CAPSULE BY ity of 00:00: MOUTH AT [place] BEDTIME Medical Branch LAMOTRIGINE 2022-0 Yes [id number] 200mg TAKE 2 [facility] 100 mg 1-18 TABLETS BY ity of tablet 00:00: MOUTH IN [place] THE Medical MORNING Branch PRAZOSIN 1 2022- Yes [id number] 1mg TAKE 1 U nivers mg capsule 1-18 CAPSULE BY ity of 00:00: MOUTH AT [place] BEDTIME Medical Branch LAMOTRIGINE 2022-0 Yes [id number] 200mg TAKE 2 [facility] 100 mg 1-18 TABLETS BY ity of tablet 00:00: MOUTH IN [place] THE Medical MORNING Branch PRAZOSIN 1 2022-0 Yes [id number] 1mg TAKE 1 U nivers mg capsule 1-18 CAPSULE BY ity of 00:00: MOUTH AT [place] BEDTIME Medical Branch LAMOTRIGINE 2022-0 Yes [id number] 200mg TAKE 2 [facility] 100 mg 1-18 TABLETS BY ity of tablet 00:00: MOUTH IN [place] THE Medical MORNING Branch PRAZOSIN 1 2022-0 Yes [id number] 1mg TAKE 1 U nivers mg capsule 1-18 CAPSULE BY ity of 00:00: MOUTH AT [place] BEDTIME Medical Branch LAMOTRIGINE 2022-0 Yes [id number] 200mg TAKE 2 [facility] 100 mg 1-18 TABLETS BY ity of tablet 00:00: MOUTH IN [place] THE Medical MORNING Branch PRAZOSIN 1 2022-0 Yes [id number] 1mg TAKE 1 U nivers mg capsule 1-18 CAPSULE BY ity of 00:00: MOUTH AT [place] [address] BEDTIME Medical Branch LAMOTRIGINE 2022-0 Yes [id number] 200mg TAKE 2 [facility] 100 mg 1-18 TABLETS BY ity of tablet 00:00: MOUTH IN [place] 00 THE Medical MORNING Branch PRAZOSIN 1 Yes [id number] 1mg TAKE 1 U nivers mg capsule 1-18 CAPSULE BY ity of 00:00: MOUTH AT [place] BEDTIME Medical Branch LAMOTRIGINE 2022-0 Yes [id number] 200mg TAKE 2 [facility] 100 mg 1-18 TABLETS BY ity of tablet 00:00: MOUTH IN [place] 00 THE Medical MORNING Branch PRAZOSIN 1 2022-0 Yes [id number] 1mg TAKE 1 U nivers mg capsule 1-18 CAPSULE BY ity of 00:00: MOUTH AT [place] BEDTIME Medical Branch LAMOTRIGINE 2022-0 Yes [id number] 200mg TAKE 2 [facility] 100 mg 1-18 TABLETS BY ity of tablet 00:00: MOUTH IN [place] 00 THE Medical MORNING Branch PRAZOSIN 1 2022- Yes [id number] 1mg TAKE 1 U nivers mg capsule 1-18 CAPSULE BY ity of 00:00: MOUTH AT [place] BEDTIME Medical Branch LAMOTRIGINE Yes [id number] 200mg TAKE 2 [facility] 100 mg 1-18 TABLETS BY ity of tablet 00:00: MOUTH IN [place] 00 THE Medical MORNING Branch PRAZOSIN 1 Yes [id number] 1mg TAKE 1 U nivers mg capsule 1-18 CAPSULE BY ity of 00:00: MOUTH AT [place] BEDTIME Medical Branch LAMOTRIGINE Yes [id number] 200mg TAKE 2 [facility] 100 mg 1-18 TABLETS BY ity of tablet 00:00: MOUTH IN [place] [address] THE Medical MORNING Branch PRAZOSIN 1 2022-0 Yes [id number] 1mg TAKE 1 U nivers mg capsule 1-18 CAPSULE BY ity of 00:00: MOUTH AT [place] BEDTIME Medical Branch LAMOTRIGINE 2022-0 Yes [id number] 200mg TAKE 2 [facility] 100 mg 1-18 TABLETS BY ity of tablet 00:00: MOUTH IN [place] 00 THE Medical MORNING Branch PRAZOSIN 1 2022-0 Yes [id number] 1mg TAKE 1 U nivers mg capsule 1-18 CAPSULE BY ity of 00:00: MOUTH AT [place] BEDTIME Medical Branch LAMOTRIGINE 0 Yes [id number] 200mg TAKE 2 [facility] 100 mg 1-18 TABLETS BY ity of tablet 00:00: MOUTH IN [place] 00 THE Medical MORNING Branch PRAZOSIN 1 2022- Yes [id number] 1mg TAKE 1 U nivers mg capsule 1-18 CAPSULE BY ity of 00:00: MOUTH AT [place] BEDTIME Medical Branch LAMOTRIGINE 2022-0 Yes [id number] 200mg TAKE 2 [facility] 100 mg 1-18 TABLETS BY ity of tablet 00:00: MOUTH IN [place] THE Medical MORNING Branch PRAZOSIN 1 2022-0 Yes [id number] 1mg TAKE 1 U nivers mg capsule 1-18 CAPSULE BY ity of 00:00: MOUTH AT [place] BEDTIME Medical Branch LAMOTRIGINE 2022-0 Yes [id number] 200mg TAKE 2 [facility] 100 mg 1-18 TABLETS BY ity of tablet 00:00: MOUTH IN [place] THE Medical MORNING Branch PRAZOSIN 1 2022-0 Yes [id number] 1mg TAKE 1 U nivers mg capsule 1-18 CAPSULE BY ity of 00:00: MOUTH AT [place] BEDTIME Medical Branch LAMOTRIGINE 2022-0 Yes [id number] 200mg TAKE 2 [facility] 100 mg 1-18 TABLETS BY ity of tablet 00:00: MOUTH IN [place] THE Medical MORNING Branch PRAZOSIN 1 2022-0 Yes [id number] 1mg TAKE 1 U nivers mg capsule 1-18 CAPSULE BY ity of 00:00: MOUTH AT [place] BEDTIME Medical Branch LAMOTRIGINE 2022-0 Yes [id number] 200mg TAKE 2 [facility] 100 mg 1-18 TABLETS BY ity of tablet 00:00: MOUTH IN [place] THE Medical MORNING Branch PRAZOSIN 1 2022-0 Yes [id number] 1mg TAKE 1 U nivers mg capsule 1-18 CAPSULE BY ity of 00:00: MOUTH AT [place] BEDTIME Medical Branch LAMOTRIGINE 2022-0 Yes [id number] 200mg TAKE 2 [facility] 100 mg 1-18 TABLETS BY ity of tablet 00:00: MOUTH IN [place] [address] THE Medical MORNING Branch PRAZOSIN 1 2022-0 Yes [id number] 1mg TAKE 1 U nivers mg capsule 1-18 CAPSULE BY ity of 00:00: MOUTH AT [place] BEDTIME Medical Branch LAMOTRIGINE 2022-0 Yes [id number] 200mg TAKE 2 [facility] 100 mg 1-18 TABLETS BY ity of tablet 00:00: MOUTH IN [place] [address] THE Medical MORNING Branch PRAZOSIN 1 2022-0 Yes [id number] 1mg TAKE 1 U nivers mg capsule 1-18 CAPSULE BY ity of 00:00: MOUTH AT [place] [address] BEDTIME Medical Branch LAMOTRIGINE 2022-0 Yes [id number] 200mg TAKE 2 [facility] 100 mg 1-18 TABLETS BY ity of tablet 00:00: MOUTH IN [place] THE Medical MORNING Branch PRAZOSIN 1 2022-0 Yes [id number] 1mg TAKE 1 U nivers mg capsule 1-18 CAPSULE BY ity of 00:00: MOUTH AT [place] BEDTIME Medical Branch LAMOTRIGINE 2022-0 Yes [id number] 200mg TAKE 2 [facility] 100 mg 1-18 TABLETS BY ity of tablet 00:00: MOUTH IN [place] [address] THE Medical MORNING Branch PRAZOSIN 1 2022-0 Yes [id number] 1mg TAKE 1 U nivers mg capsule 1-18 CAPSULE BY ity of 00:00: MOUTH AT [place] BEDTIME Medical Branch LAMOTRIGINE 0 Yes [id number] 200mg TAKE 2 [facility] 100 mg 1-18 TABLETS BY ity of tablet 00:00: MOUTH IN [place] [address] THE Medical MORNING Branch PRAZOSIN 1 2022-0 Yes [id number] 1mg TAKE 1 U nivers mg capsule 1-18 CAPSULE BY ity of 00:00: [facility] [place] [facility] LAMOT[facility]IGINE 2022-0 Yes [id number] 200mg TAKE 2 [facility] 100 mg 1-18 TABLETS BY ity of tablet 00:00: MOUTH IN [place] THE Medical MORNING Branch PRAZOSIN 1 2022-0 Yes [id number] 1mg TAKE 1 U nivers mg capsule 1-18 CAPSULE BY ity of 00:00: [facility]TH AT [place] [facility] LAMOTRIGINE 2022-0 Yes [id number] 200mg TAKE 2 [facility] 100 mg 1-18 TABLETS BY ity of tablet 00:00: MOUTH IN [place] THE Medical MORNING Branch PRAZOSIN 1 2022-0 Yes [id number] 1mg TAKE 1 U nivers mg capsule 1-18 CAPSULE BY ity of 00:00: [facility]TH AT [place] [facility] LAMOTRIGINE 2022-0 Yes [id number] 200mg TAKE 2 [facility] 100 mg 1-18 TABLETS BY ity of tablet 00:00: MOUTH IN [place] [address] THE Medical MORNING Branch PRAZOSIN 1 2022-0 Yes [id number] 1mg TAKE 1 U nivers mg capsule 1-18 CAPSULE BY ity of 00:00: MOUTH AT [address] Medical Branch LAMOTRIGINE 2022-0 Yes [id number] 200mg TAKE 2 [facility] 100 mg 1-18 TABLETS BY ity of tablet 00:00: MOUTH IN [place] 00 THE Medical MORNING Branch PRAZOSIN 1 2022-0 Yes [id number] 1mg TAKE 1 U nivers mg capsule 1-18 CAPSULE BY ity of 00:00: MOUTH AT [place] BEDTIME Medical Branch LAMOTRIGINE 2022-0 Yes [id number] 200mg TAKE 2 [facility] 100 mg 1-18 TABLETS BY ity of tablet 00:00: MOUTH IN [place] 00 THE Medical MORNING Branch PRAZOSIN 1 2022-0 Yes [id number] 1mg TAKE 1 U nivers mg capsule 1-18 CAPSULE BY ity of 00:00: MOUTH AT [place] BEDTIME Medical Branch LAMOTRIGINE 2022-0 Yes [id number] 200mg TAKE 2 [facility] 100 mg 1-18 TABLETS BY ity of tablet 00:00: MOUTH IN [place] [address] THE Medical MORNING Branch PRAZOSIN 1 2022-0 Yes [id number] 1mg TAKE 1 U nivers mg capsule 1-18 CAPSULE BY ity of 00:00: MOUTH AT [place] BEDTIME Medical Branch LAMOTRIGINE 2022-0 Yes [id number] 200mg TAKE 2 [facility] 100 mg 1-18 TABLETS BY ity of tablet 00:00: MOUTH IN [place] 00 THE Medical MORNING Branch PRAZOSIN 1 2022-0 Yes [id number] 1mg TAKE 1 U nivers mg capsule 1-18 CAPSULE BY ity of 00:00: MOUTH AT [place] [address] BEDTIME Medical Branch LAMOTRIGINE 2022-0 Yes [id number] 200mg TAKE 2 [facility] 100 mg 1-18 TABLETS BY ity of tablet 00:00: MOUTH IN [place] 00 THE Medical MORNING Branch PRAZOSIN 1 2022-0 Yes [id number] 1mg TAKE 1 U nivers mg capsule 1-18 CAPSULE BY ity of 00:00: MOUTH AT [place] BEDTIME Medical Branch LAMOTRIGINE 2022-0 Yes [id number] 200mg TAKE 2 [facility] 100 mg 1-18 TABLETS BY ity of tablet 00:00: MOUTH IN [place] 00 THE Medical MORNING Branch PRAZOSIN 1 2022-0 Yes [id number] 1mg TAKE 1 U nivers mg capsule 1-18 CAPSULE BY ity of 00:00: MOUTH AT [place] [address] BEDTIME Medical Branch LAMOTRIGINE 2022-0 Yes [id number] 200mg TAKE 2 [facility] 100 mg 1-18 TABLETS BY ity of tablet 00:00: MOUTH IN [place] 00 THE Medical MORNING Branch PRAZOSIN 1 2022-0 Yes [id number] 1mg TAKE 1 U nivers mg capsule 1-18 CAPSULE BY ity of 00:00: MOUTH AT [place] BEDTIME Medical Branch LAMOTRIGINE 2022-0 Yes [id number] 200mg TAKE 2 [facility] 100 mg 1-18 TABLETS BY ity of tablet 00:00: MOUTH IN [place] 00 THE Medical MORNING Branch PRAZOSIN 1 2022-0 Yes [id number] 1mg TAKE 1 [facility] n[facility] mg capsule 1-18 CAPSULE BY ity of 00:00: MOUTH AT [place] BEDTIME Medical Branch LAMOTRIGINE 2022-0 Yes [id number] 200mg TAKE 2 [facility] 100 mg 1-18 TABLETS BY ity of tablet 00:00: MOUTH IN [place] THE Medical MORNING Branch PRAZOSIN 1 2022-0 Yes [id number] 1mg TAKE 1 [facility] mg capsule 1-18 CAPSULE BY ity of 00:00: MOUTH AT [place] BEDTIME Medical Branch LAMOTRIGINE 2022-0 Yes [id number] 200mg TAKE 2 [facility] 100 mg 1-18 TABLETS BY ity of tablet 00:00: MOUTH IN [place] [address] THE Medical MORNING Branch PRAZOSIN 1 2022-0 Yes [id number] 1mg TAKE 1 [facility] mg capsule 1-18 CAPSULE BY [facility] 00:00: [facility] [place] [facility]AM[facility] 2022-0 Yes [id number] 200mg TAKE 2 [facility] 100 mg 1-18 TABLETS BY ity of tablet 00:00: MOUTH IN [place] THE Medical MORNING Branch PRAZOSIN 1 2022-0 Yes [id number] 1mg TAKE 1 [facility] mg capsule 1-18 CAPSULE BY ity of 00:00: MOUTH AT [place] [address] BEDTIME Medical Branch LAMOTRIGINE 2022-0 Yes [id number] 200mg TAKE 2 [facility] 100 mg 1-18 TABLETS BY ity of tablet 00:00: MOUTH IN [place] THE Medical MORNING Branch PRAZOSIN 1 2022-0 Yes [id number] 1mg TAKE 1 [facility] mg capsule 1-18 CAPSULE BY ity of 00:00: MOUTH AT [place] [address] BEDTIME Medical Branch LAMOTRIGINE 2022-0 Yes [id number] 200mg TAKE 2 [facility] 100 mg 1-18 TABLETS BY ity of tablet 00:00: MOUTH IN [place] [address] THE Medical MORNING Branch PRAZOSIN 1 Yes [id number] 1mg TAKE 1 [facility] mg capsule 1-18 CAPSULE BY ity of 00:00: MOUTH AT [place] 00 BEDTIME Medical Branch insulin Yes [id number] inject 20 [facility] glargine 1-10 Units ity of ([facility] 00:00: under the [place] U-100 00 skin twice Medical INSULIN) a day. Branch 100 unit/mL injection insulin Yes [id number] inject 20 [facility] glargine 1-10 Units ity of ([facility] 00:00: under the [place] U-100 00 skin twice Medical INSULIN) a day. Branch 100 unit/mL injection insulin 2022- No [id number] inject 20 [facility] glargine 1-10 01-30 Units ity of ([place] 00:00: 00:[place] under [place] U-100 00 :00 skin twice Medical INSULIN) a day. Branch 100 unit/mL injection insulin 2022- No [id number] inject 20 [facility] glargine 1-10 01-30 Units ity of ([place] 00:00: 00:[place] under the [place] U-100 00 :00 skin twice Medical INSULIN) a day. Branch 100 unit/mL injection famotidine 2021-06 Yes [id number] 40mg Take 1 [facility] 40 mg 2-13 tablet by ity of tablet 00:00: mouth in [place] the Medical morning. Branch famotidine 2021-06 Yes [id number] 40mg Take 1 [facility] 40 mg 2-13 tablet by ity of tablet 00:00: mouth in [place] the Medical morning. Branch famotidine 2021-06 Yes [id number] 40mg Take 1 [facility] 40 mg 2-13 tablet by ity of tablet 00:00: mouth in [place] the Medical morning. Branch famotidine 2021-06 Yes [id number] 40mg Take 1 [facility] 40 mg 2-13 tablet by ity of tablet 00:00: mouth in [place] the Medical morning. Branch famotidine 2021-06 Yes [id number] 40mg Take 1 [facility] 40 mg 2-13 tablet by ity of tablet 00:00: mouth in [place] the Medical morning. Branch famotidine 2021-06 Yes [id number] 40mg Take 1 [facility] 40 mg 2-13 tablet by ity of tablet 00:00: mouth in [place] the Medical morning. Branch famotidine 2021-06 Yes [id number] 40mg Take 1 [facility] 40 mg 2-13 tablet by ity of tablet 00:00: mouth in [place] the Medical morning. Branch famotidine 2021-06 Yes [id number] 40mg Take 1 [facility] 40 mg 2-13 tablet by ity of tablet 00:00: mouth in [place] the Medical morning. Branch famotidine 2021-06 Yes [id number] 40mg Take 1 [facility] 40 mg 2-13 tablet by ity of tablet 00:00: mouth in [place] the Medical morning. Branch famotidine 2021-06 Yes [id number] 40mg Take 1 [facility] 40 mg 2-13 tablet by ity of tablet 00:00: mouth in [place] the Medical morning. Branch famotidine 2021-06 Yes [id number] 40mg Take 1 [facility] 40 mg 2-13 tablet by ity of tablet 00:00: mouth in [place] the Medical morning. Branch famotidine 2021-06 Yes [id number] 40mg Take 1 [facility] 40 mg 2-13 tablet by ity of tablet 00:00: mouth in [place] the Medical morning. Branch famotidine 2021-06 Yes [id number] 40mg Take 1 [facility] 40 mg 2-13 tablet by ity of tablet 00:00: mouth in [place] the Medical morning. Branch famotidine 2021-06 Yes [id number] 40mg Take 1 [facility] 40 mg 2-13 tablet by ity of tablet 00:00: mouth in [place] the Medical morning. Branch famotidine 2021-06 Yes [id number] 40mg Take 1 [facility] 40 mg 2-13 tablet by ity of tablet 00:00: mouth in [place] the Medical morning. Branch famotidine 2021-06 Yes [id number] 40mg Take 1 [facility] 40 mg 2-13 tablet by ity of tablet 00:00: mouth in [place] the Medical morning. Branch famotidine 2021-06 Yes [id number] 40mg Take 1 [facility] 40 mg 2-13 tablet by ity of tablet 00:00: mouth in [place] the Medical morning. Branch famotidine 2021-06 Yes [id number] 40mg Take 1 [facility] 40 mg 2-13 tablet by ity of tablet 00:00: mouth in [place] the Medical morning. Branch famotidine 2021-06 Yes [id number] 40mg Take 1 [facility] 40 mg 2-13 tablet by ity of tablet 00:00: mouth in [place] the Medical morning. Branch famotidine 2021-06 Yes [id number] 40mg Take 1 [facility] 40 mg 2-13 tablet by ity of tablet 00:00: mouth in [place] the Medical morning. Branch famotidine 2021-06 Yes [id number] 40mg Take 1 [facility] 40 mg 2-13 tablet by ity of tablet 00:00: mouth in [place] the Medical morning. Branch famotidine 2021-06 Yes [id number] 40mg Take 1 [facility] 40 mg 2-13 tablet by ity of tablet 00:00: mouth in [place] the Medical morning. Branch famotidine 2021-06 Yes [id number] 40mg Take 1 [facility] 40 mg 2-13 tablet by ity of tablet 00:00: mouth in [place] the Medical morning. Branch famotidine 2021-06 Yes [id number] 40mg Take 1 [facility] 40 mg 2-13 tablet by ity of tablet 00:00: mouth in [place] the Medical morning. Branch famotidine 2021-06 Yes [id number] 40mg Take 1 [facility] 40 mg 2-13 tablet by ity of tablet 00:00: mouth in [place] the Medical morning. Branch famotidine 2021-06 Yes [id number] 40mg Take 1 [facility] 40 mg 2-13 tablet by ity of tablet 00:00: mouth in [place] the Medical morning. Branch famotidine 2021-06 Yes [id number] 40mg Take 1 [facility] 40 mg 2-13 tablet by ity of tablet 00:00: mouth in [place] the Medical morning. Branch famotidine 2021-06 Yes [id number] 40mg Take 1 [facility] 40 mg 2-13 tablet by ity of tablet 00:00: mouth in [place] the Medical morning. Branch famotidine 2021-06 Yes [id number] 40mg Take 1 [facility] 40 mg 2-13 tablet by ity of tablet 00:00: mouth in [place] the Medical morning. Branch famotidine 2021-06 Yes [id number] 40mg Take 1 [facility] 40 mg 2-13 tablet by ity of tablet 00:00: mouth in [place] the Medical morning. Branch famotidine 2021-06 Yes [id number] 40mg Take 1 [facility] 40 mg 2-13 tablet by ity of tablet 00:00: mouth in [place] the Medical morning. Branch famotidine 2021-06 Yes [id number] 40mg Take 1 [facility] 40 mg 2-13 tablet by ity of tablet 00:00: mouth in [place] the Medical morning. Branch famotidine 2021-06 Yes [id number] 40mg Take 1 [facility] 40 mg 2-13 tablet by ity of tablet 00:00: mouth in [place] the Medical morning. Branch famotidine 2021-06 Yes [id number] 40mg Take 1 [facility] 40 mg 2-13 tablet by ity of tablet 00:00: mouth in [place] the Medical morning. Branch famotidine 2021-06 Yes [id number] 40mg Take 1 [facility] 40 mg 2-13 tablet by ity of tablet 00:00: mouth in [place] the Medical morning. Branch famotidine 2021-06 Yes [id number] 40mg Take 1 [facility] 40 mg 2-13 tablet by ity of tablet 00:00: mouth in [place] the Medical morning. Branch famotidine 2021-06 Yes [id number] 40mg Take 1 [facility] 40 mg 2-13 tablet by ity of tablet 00:00: mouth in [place] the Medical morning. Branch famotidine 2021-06 Yes [id number] 40mg Take 1 [facility] 40 mg 2-13 tablet by ity of tablet 00:00: mouth in [place] the Medical morning. Branch famotidine 2021-06 Yes [id number] 40mg Take 1 [facility] 40 mg 2-13 tablet by ity of tablet 00:00: mouth in [place] the Medical morning. Branch famotidine 2021-06 Yes [id number] 40mg Take 1 [facility] 40 mg 2-13 tablet by ity of tablet 00:00: mouth in [place] the Medical morning. Branch famotidine 2021- Yes [id number] 40mg Take 1 [facility] 40 mg 2-13 tablet by ity of tablet 00:00: mouth in [place] the Medical morning. Branch famotidine 2021- Yes [id number] 40mg Take 1 [facility] 40 mg 2-13 tablet by ity of tablet 00:00: mouth in [place] 00 the Medical morning. Branch famotidine 2021-06- No [id number] 40mg Take 1 [facility] 40 mg 07-21-20 tablet by ity of tablet 00:00: 00:00 mouth in [place] 00 :00 the Medical morning. Branch insulin 2021-06 Yes [id number] inject 20 [facility] glargine 1-28 Units ity of (L[facility]US 00:00: under the [place] U-100 00 skin twice Medical INSULIN) a day. Branch 100 unit/mL injection insulin 2021-06 Yes [id number] inject 20 [facility] glargine 1-28 Units ity of ([facility]US 00:00: under the [place] U-100 00 skin twice Medical INSULIN) a day. Branch 100 unit/mL injection insulin 2021-06 Yes [id number] inject 20 [facility] glargine 1-28 Units ity of ([facility]US 00:00: under the [place] U-100 00 skin twice Medical INSULIN) a day. Branch 100 unit/mL injection insulin 2021-06 Yes [id number] inject 20 [facility] glargine 1-28 Units ity of ([facility]US 00:00: under the [place] U-100 00 skin twice Medical INSULIN) a day. Branch 100 unit/mL injection insulin 2021-06 Yes [id number] inject 20 [facility] glargine 1-28 Units ity of ([facility]US 00:00: under the [place] U-100 00 skin twice Medical INSULIN) a day. Branch 100 unit/mL injection insulin 2021-06 Yes [id number] inject 20 [facility] glargine 1-28 Units ity of ([facility]US 00:00: under the [place] U-100 00 skin twice Medical INSULIN) a day. Branch 100 unit/mL injection insulin 2021-06 Yes [id number] inject 20 [facility] glargine 1-28 Units ity of ([facility]US 00:00: under the [place] U-100 00 skin twice Medical INSULIN) a day. Branch 100 unit/mL injection insulin 2021-06- No [id number] inject 20 [facility] glargine 1-28 01-09 Units ity of (L[facility]US 00:00: 00:[address] [facility] U-100 00 :00 skin twice Medical INSULIN) a day. Branch 100 unit/mL injection Insulin 2021-06 Yes [id number] Use to Uni vers Syringe-Nee 1-24 inject ity of dle U-100 1 00:00: insulin 4X [place] mL 31 gauge 00 daily. Medica l x 5/16 Syrg DX:[id number] [facility] Insulin 2021-06 Yes [id number] Use to Uni vers Syringe-Nee 1-24 inject ity of dle U-100 1 00:00: insulin 4X [place] mL 31 gauge 00 daily. Medica l x 5/16 Syrg DX:[id number] [facility] Insulin 2021-06 Yes [id number] Use to Uni vers Syringe-Nee 1-24 inject ity of dle U-100 1 00:00: insulin 4X [place] mL 31 gauge 00 daily. Medica l x 5/16 Syrg DX:[id number] [facility] Insulin 2021-06 Yes [id number] Use to Uni vers Syringe-Nee 1-24 inject ity of dle U-100 1 00:00: insulin 4X [place] mL 31 gauge 00 daily. Medica l x 516 Syrg DX:[id number] [facility] Insulin 2021-06 Yes [id number] Use to Uni vers Syringe-Nee 1-24 inject ity of dle U-100 1 00:00: insulin 4X [place] mL 31 gauge 00 daily. Medica l x 16 Syrg DX:[id number] [facility] Insulin 2021-06 Yes [id number] Use to Uni vers Syringe-Nee 1-24 inject ity of dle U-100 1 00:00: insulin 4X [place] mL 31 gauge 00 daily. Medica l x 5/16 Syrg DX:[id number] [facility] Insulin 2021-06 Yes [id number] Use to Uni vers Syringe-Nee 1-24 inject ity of dle U-100 1 00:00: insulin 4X [place] mL 31 gauge 00 daily. Medica l x 5/16 Syrg DX:[id number] [facility] Insulin 2021-06 Yes [id number] Use to Uni vers Syringe-Nee 1-24 inject ity of dle U-100 1 00:00: insulin 4X [place] mL 31 gauge 00 daily. Medica l x 5/16 Syrg DX:[id number] [facility] Insulin 2021-06 Yes [id number] Use to Uni vers Syringe-Nee 1-24 inject ity of dle U-100 1 00:00: insulin 4X [place] mL 31 gauge 00 daily. Medica l x 5/16 Syrg DX:[id number] [facility] Insulin 2021-06 Yes [id number] Use to Uni vers Syringe-Nee 1-24 inject ity of dle U-100 1 00:00: insulin 4X [place] mL 31 gauge 00 daily. Medica l x 5/16 Syrg DX:[id number] [facility] Insulin 2021-06 Yes [id number] Use to Uni vers Syringe-Nee 1-24 inject ity of dle U-100 1 00:00: insulin 4X [place] mL 31 gauge 00 daily. Medica l x 5/16 Syrg DX:[id number] [facility] Insulin 2021-06 Yes [id number] Use to Uni vers Syringe-Nee 1-24 inject ity of dle U-100 1 00:00: insulin 4X [place] mL 31 gauge 00 daily. Medica l x 5/16 Syrg DX:[id number] [facility] Insulin 2021-06 Yes [id number] Use to Uni vers Syringe-Nee 1-24 inject ity of dle U-100 1 00:00: insulin 4X [place] mL 31 gauge 00 daily. Medica l x 5/16 Syrg DX:[id number] [facility] Insulin 2021-06 Yes [id number] Use to Uni vers Syringe-Nee 1-24 inject ity of dle U-100 1 00:00: insulin 4X [place] mL 31 gauge 00 daily. Medica l x 5/16 Syrg DX:[id number] [facility] Insulin 2021-06 Yes [id number] Use to Uni vers Syringe-Nee 1-24 inject ity of dle U-100 1 00:00: insulin 4X [place] mL 31 gauge 00 daily. Medica l x 5/16 Syrg DX:[id number] [facility] Insulin 2021-06 Yes [id number] Use to Uni vers Syringe-Nee 1-24 inject ity of dle U-100 1 00:00: insulin 4X [place] mL 31 gauge 00 daily. Medica l x 5/16 Syrg DX:[id number] [facility] Insulin 2021-06 Yes [id number] Use to Uni vers Syringe-Nee 1-24 inject ity of dle U-100 1 00:00: insulin 4X [place] mL 31 gauge 00 daily. Medica l x 5/16 Syrg DX:[id number] [facility] Insulin 2021-06 Yes [id number] Use to Uni vers Syringe-Nee 1-24 inject ity of dle U-100 1 00:00: insulin 4X [place] mL 31 gauge 00 daily. Medica l x 5/16 Syrg DX:[id number] [facility] Insulin 2021-06 Yes [id number] Use to Uni vers Syringe-Nee 1-24 inject ity of dle U-100 1 00:00: insulin 4X [place] mL 31 gauge 00 daily. Medica l x 5/16 Syrg DX:[id number] [facility] Insulin 2021-06 Yes [id number] Use to Uni vers Syringe-Nee 1-24 inject ity of dle U-100 1 00:00: insulin 4X [place] mL 31 gauge 00 daily. Medica l x 5/16 Syrg DX:[id number] [facility] Insulin 2021-06 Yes [id number] Use to Uni vers Syringe-Nee 1-24 inject ity of dle U-100 1 00:00: insulin 4X [place] mL 31 gauge 00 daily. Medica l x 5/16 Syrg DX:[id number] [facility] Insulin 2021-06 Yes [id number] Use to Uni vers Syringe-Nee 1-24 inject ity of dle U-100 1 00:00: insulin 4X [place] mL 31 gauge 00 daily. Medica l x 5/16 Syrg DX:[id number] [facility] Insulin 2021-06 Yes [id number] Use to Uni vers Syringe-Nee 1-24 inject ity of dle U-100 1 00:00: insulin 4X [place] mL 31 gauge 00 daily. Medica l x 5/16 Syrg DX:[id number] [facility] Insulin 2021-06 Yes [id number] Use to Uni vers Syringe-Nee 1-24 inject ity of dle U-100 1 00:00: insulin 4X [place] mL 31 gauge 00 daily. Medica l x 5/16 Syrg DX:[id number] [facility] Insulin 2021-06 Yes [id number] Use to Uni vers Syringe-Nee 1-24 inject ity of dle U-100 1 00:00: insulin 4X [place] mL 31 gauge 00 daily. Medica l x 5/16 Syrg DX:[id number] [facility] Insulin 2021-06 Yes [id number] Use to Uni vers Syringe-Nee 1-24 inject ity of dle U-100 1 00:00: insulin 4X [place] mL 31 gauge 00 daily. Medica l x 516 Syrg DX:[id number] [facility] Insulin 2021-06 Yes [id number] Use to Uni vers Syringe-Nee 1-24 inject ity of dle U-100 1 00:00: insulin 4X [place] mL 31 gauge 00 daily. Medica l x 5/16 Syrg DX:[id number] [facility] Insulin 2021-06 Yes [id number] Use to Uni vers Syringe-Nee 1-24 inject ity of dle U-100 1 00:00: insulin 4X [place] mL 31 gauge 00 daily. Medica l x 516 Syrg DX:[id number] [facility] Insulin 2021-06 Yes [id number] Use to Uni vers Syringe-Nee 1-24 inject ity of dle U-100 1 00:00: insulin 4X [place] mL 31 gauge 00 daily. Medica l x 516 Syrg DX:[id number] [facility] Insulin 2021-06 Yes [id number] Use to Uni vers Syringe-Nee 1-24 inject ity of dle U-100 1 00:00: insulin 4X [place] mL 31 gauge 00 daily. Medica l x 516 Syrg DX:[id number] [facility] Insulin 2021-06 Yes [id number] Use to Uni vers Syringe-Nee 1-24 inject ity of dle U-100 1 00:00: insulin 4X [place] mL 31 gauge 00 daily. Medica l x 5/16 Syrg DX:[id number] [facility] Insulin 2021-06- No [id number] Use to Un kendra Syringe-Nee 1-24 19 inject ity o f dle U-100 1 00:00: 00:00 insulin 4X [place] mL 31 gauge 00 :00 daily. Medica l x 10/21 Syrg DX:[id number] [facility] FAMOTIDINE 2021-06 Yes [id number] TAKE ONE [facility] 40 mg 1-03 TABLET BY ity of tablet 00:00: MOUTH [place] 00 EVERY DAY Medical IN THE [place] MORNING. FAMOTIDINE 2021-06 Yes [id number] TAKE ONE [facility] 40 mg 1-03 TABLET BY ity of tablet 00:00: MOUTH [place] 00 EVERY DAY Medical IN THE [place] MORNING. FAMOTIDINE 2021-06 Yes [id number] TAKE ONE [facility] 40 mg 1-03 TABLET BY ity of tablet 00:00: MOUTH [place] 00 EVERY DAY Medical IN THE [place] MORNING. FAMOTIDINE 2021-06 Yes [id number] TAKE ONE [facility] 40 mg 1-03 TABLET BY ity of tablet 00:00: MOUTH [place] 00 EVERY DAY Medical IN THE [place] MORNING. FAMOTIDINE 2021-06 Yes [id number] TAKE ONE [facility] 40 mg 1-03 TABLET BY ity of tablet 00:00: MOUTH [place] 00 EVERY DAY Medical IN THE [place] MORNING. FAMOTIDINE 2021-06 Yes [id number] TAKE ONE [facility] 40 mg 1-03 TABLET BY ity of tablet 00:00: MOUTH [place] 00 EVERY DAY Medical IN THE [place] MORNING. FAMOTIDINE 2021-06- No [id number] TAKE ONE [facility] 40 mg 1-03 12-09 TABLET BY ity of tablet 00:00: 00:00 MOUTH [place] 00 :00 EVERY DAY Medical IN THE [place] MORNING. insulin 2021-06 Yes [id number] inject 20 [facility] glargine 0-25 Units ity of (LANTUS 00:00: under the [place] U-100 00 skin twice Medical INSULIN) a day. [place] 100 unit/mL injection insulin 2021-06 Yes [id number] inject 20 [facility] glargine 0-25 Units ity of ([place]US 00:00: under the [place] U-100 00 skin twice Medical INSULIN) a day. [place] 100 unit/mL injection LORazepam 2021-06 Yes [id number] 1mg Take 1 Un kendra (ATIVAN) 1 0-25 tablet by ity of mg tablet 00:00: mouth 2 [place] 00 (two) Medical times [place] daily as needed for Anxiety or Agitation. insulin 2021-06 Yes [id number] inject 20 [facility] glargine 0-25 Units ity of (LANTUS 00:00: under the [place] U-100 00 skin twice Medical INSULIN) a day. Branch 100 unit/mL injection LORazepam 2021-06 Yes [id number] 1mg Take 1 Un [facility] (ATIVAN) 1 0-25 tablet by ity of mg tablet 00:00: mouth 2 (two) Medical times Branch daily as needed for Anxiety or Agitation. insulin 2021-06 Yes [id number] inject 20 [facility] glargine 0-25 Units ity of (L[place]US 00:00: under the [place] U-100 00 skin twice Medical INSULIN) a day. Branch 100 unit/mL injection LORazepam 2021-06 Yes [id number] 1mg Take 1 Un [facility] (ATIVAN) 1 0-25 tablet by ity of mg tablet 00:00: mouth 2 (two) Medical times Branch daily as needed for Anxiety or Agitation. insulin 2021-06 Yes [id number] inject 20 [facility] glargine 0-25 Units ity of (L[place]US 00:00: under the [place] U-100 00 skin twice Medical INSULIN) a day. Branch 100 unit/mL injection LORazepam 2021-06 Yes [id number] 1mg Take 1 [facility] (ATIVAN) 1 0-25 tablet by ity of mg tablet 00:00: mouth 2 (two) Medical times Branch daily as needed for Anxiety or Agitation. insulin 2021-06 Yes [id number] inject 20 [facility] glargine 0-25 Units ity of (LANTUS 00:00: under the [place] U-100 00 skin twice Medical INSULIN) a day. Branch 100 unit/mL injection LORazepam 2021-06 Yes [id number] 1mg Take 1 Un [facility] (ATIVAN) 1 0-25 tablet by ity of mg tablet 00:00: mouth 2 (two) Medical times Branch daily as needed for Anxiety or Agitation. insulin 2021-06 Yes [id number] inject 20 [facility] glargine 0-25 Units ity of (LANTUS 00:00: under the [place] U-100 00 skin twice Medical INSULIN) a day. Branch 100 unit/mL injection LORazepam 2021-06 Yes [id number] 1mg Take 1 Un [facility] (ATIVAN) 1 0-25 tablet by ity of mg tablet 00:00: mouth 2 (two) Medical times Branch daily as needed for Anxiety or Agitation. insulin 2021-06 Yes [id number] inject 20 [facility] glargine 0-25 Units ity of (LANTUS 00:00: under the U-100 00 skin twice Medical INSULIN) a day. Branch 100 unit/mL injection LORazepam 2021-06 Yes [id number] 1mg Take 1 Un [facility] (ATIVAN) 1 0-25 tablet by ity of mg tablet 00:00: mouth 2 (two) Medical times Branch daily as needed for Anxiety or Agitation. insulin 2021-06 Yes [id number] inject 20 [facility] glargine 0-25 Units ity of (LANTUS 00:00: under the U-100 00 skin twice Medical INSULIN) a day. Branch 100 unit/mL injection LORazepam 2021-06 Yes [id number] 1mg Take 1 [facility] (ATIVAN) 1 0-25 tablet by ity of mg tablet 00:00: mouth (two) Medical times Branch daily as needed for Anxiety or Agitation. LORazepam 2021-06 Yes [id number] 1mg Take 1 [facility] (ATIVAN) 1 0-25 tablet by ity of mg tablet 00:00: mouth (two) Medical times Branch daily as needed for Anxiety or Agitation. LORazepam 2021-06 Yes [id number] 1mg Take 1 [facility] (ATIVAN) 1 0-25 tablet by ity of mg tablet 00:00: mouth (two) Medical times Branch daily as needed for Anxiety or Agitation. LORazepam 2021-06 Yes [id number] 1mg Take 1 [facility] (ATIVAN) 1 0-25 tablet by ity of mg tablet 00:00: mouth (two) Medical times Branch daily as needed for Anxiety or Agitation. LORazepam 2021-06 Yes [id number] 1mg Take 1 [facility] (ATIVAN) 1 0-25 tablet by ity of mg tablet 00:00: mouth 2 (two) Medical times Branch daily as needed for Anxiety or Agitation. LORazepam 2021-06 Yes [id number] 1mg Take 1 [facility] (ATIVAN) 1 0-25 tablet by ity of mg tablet 00:00: mouth 2 (two) Medical times Branch daily as needed for Anxiety or Agitation. LORazepam 2021-06 Yes [id number] 1mg Take 1 [facility] (ATIVAN) 1 0-25 tablet by ity of mg tablet 00:00: mouth (two) Medical times Branch daily as needed for Anxiety or Agitation. LORazepam 2021-06 Yes [id number] 1mg Take 1 [facility] (ATIVAN) 1 0-25 tablet by ity of mg tablet 00:00: mouth (two) Medical times Branch daily as needed for Anxiety or Agitation. LORazepam 2021-06 Yes [id number] 1mg Take 1 [facility] (ATIVAN) 1 0-25 tablet by ity of mg tablet 00:00: mouth (two) Medical times Branch daily as needed for Anxiety or Agitation. LORazepam 2021-06 Yes [id number] 1mg Take 1 [facility] (ATIVAN) 1 0-25 tablet by ity of mg tablet 00:00: mouth (two) Medical times Branch daily as needed for Anxiety or Agitation. LORazepam 2021-06 Yes [id number] 1mg Take 1 [facility] (ATIVAN) 1 0-25 tablet by ity of mg tablet 00:00: mouth (two) Medical times Branch daily as needed for Anxiety or Agitation. LORazepam 2021-06 Yes [id number] 1mg Take 1 [facility] (ATIVAN) 1 0-25 tablet by ity of mg tablet 00:00: mouth (two) Medical times Branch daily as needed for Anxiety or Agitation. LORazepam 2021-06 Yes [id number] 1mg Take 1 [facility] (ATIVAN) 1 0-25 tablet by ity of mg tablet 00:00: mouth (two) Medical times Branch daily as needed for Anxiety or Agitation. LORazepam 2021-06 Yes [id number] 1mg Take 1 [facility] (ATIVAN) 1 0-25 tablet by ity of mg tablet 00:00: mouth 2 (two) Medical times Branch daily as needed for Anxiety or Agitation. LORazepam 2021-06 Yes [id number] 1mg Take 1 [facility] (ATIVAN) 1 0-25 tablet by ity of mg tablet 00:00: mouth (two) Medical times Branch daily as needed for Anxiety or Agitation. LORazepam 2021-06 Yes [id number] 1mg Take 1 [facility] (ATIVAN) 1 0-25 tablet by ity of mg tablet 00:00: mouth 2 (two) Medical times Branch daily as needed for Anxiety or Agitation. LORazepam 2021-06 Yes [id number] 1mg Take 1 [facility] (ATIVAN) 1 0-25 tablet by ity of mg tablet 00:00: mouth 2 (two) Medical times Branch daily as needed for Anxiety or Agitation. LORazepam 2021-06 Yes [id number] 1mg Take 1 [facility] (ATIVAN) 1 0-25 tablet by ity of mg tablet 00:00: mouth 2 (two) Medical times Branch daily as needed for Anxiety or Agitation. LORazepam 2021-06 Yes [id number] 1mg Take 1 [facility] (ATIVAN) 1 0-25 tablet by ity of mg tablet 00:00: mouth 2 (two) Medical times Branch daily as needed for Anxiety or Agitation. LORazepam 2021-06 Yes [id number] 1mg Take 1 [facility] (ATIVAN) 1 0-25 tablet by ity of mg tablet 00:00: mouth (two) Medical times Branch daily as needed for Anxiety or Agitation. LORazepam 2021-06 Yes [id number] 1mg Take 1 [facility] (ATIVAN) 1 0-25 tablet by ity of mg tablet 00:00: mouth 2 (two) Medical times Branch daily as needed for Anxiety or Agitation. LORazepam 2021-06 Yes [id number] 1mg Take 1 [facility] (ATIVAN) 1 0-25 tablet by [facility] mg tablet 00:00: mouth 2 (two) Medical times Branch daily as needed for Anxiety or Agitation. LORazepam 2021-06 Yes [id number] 1mg Take 1 [facility] (ATIVAN) 1 0-25 tablet by [facility] mg tablet 00:00: mouth 2 (two) Medical times Branch daily as needed for Anxiety or Agitation. LORazepam 2021-06 Yes [id number] 1mg Take 1 [facility] (ATIVAN) 1 0-25 tablet by [facility] mg tablet 00:00: mouth 2 (two) Medical times Branch daily as needed for Anxiety or Agitation. LORazepam 2021-06 Yes [id number] 1mg Take 1 [facility] (ATIVAN) 1 0-25 tablet by [facility] mg tablet 00:00: mouth 2 (two) Medical times Branch daily as needed for Anxiety or Agitation. LORazepam 2021-06 Yes [id number] 1mg Take 1 [facility] (ATIVAN) 1 0-25 tablet by [facility] mg tablet 00:00: mouth 2 (two) Medical times Branch daily as needed for Anxiety or Agitation. LORazepam 2021-06 Yes [id number] 1mg Take 1 [facility] (ATIVAN) 1 0-25 tablet by [facility] mg tablet 00:00: mouth (two) Medical times Branch daily as needed for Anxiety or Agitation. LORazepam 2021-06 Yes [id number] 1mg Take 1 [facility] (ATIVAN) 1 0-25 tablet by [facility] mg tablet 00:00: mouth (two) Medical times Branch daily as needed for Anxiety or Agitation. LORazepam 2021-06 Yes [id number] 1mg Take 1 [facility] (ATIVAN) 1 0-25 tablet by [facility] mg tablet 00:00: mouth (two) Medical times Branch daily as needed for Anxiety or Agitation. LORazepam 2021-06 Yes [id number] 1mg Take 1 [facility] (ATIVAN) 1 0-25 tablet by [facility] mg tablet 00:00: mouth 2 (two) Medical times Branch daily as needed for Anxiety or Agitation. LORazepam 2021-06 Yes [id number] 1mg Take 1 [facility] (ATIVAN) 1 0-25 tablet by [facility] mg tablet 00:00: mouth (two) Medical times Branch daily as needed for Anxiety or Agitation. LORazepam 2021-06 Yes [id number] 1mg Take 1 [facility] (ATIVAN) 1 0-25 tablet by [facility] mg tablet 00:00: mouth 2 (two) Medical times Branch daily as needed for Anxiety or Agitation. LORazepam 2021-06 Yes [id number] 1mg Take 1 [facility] (ATIVAN) 1 0-25 tablet by [facility] mg tablet 00:00: mouth 2 (two) Medical times Branch daily as needed for Anxiety or Agitation. LORazepam 2021-06 Yes [id number] 1mg Take 1 [facility] (ATIVAN) 1 0-25 tablet by [facility] mg tablet 00:00: mouth 2 [place] (two) Medical times Branch daily as needed for Anxiety or Agitation. LORazepam 2021-06 Yes [id number] 1mg Take 1 [facility] (ATIVAN) 1 0-25 tablet by [facility] mg tablet 00:00: mouth 2 [place] (two) Medical times Branch daily as needed for Anxiety or Agitation. LORazepam 2021-06 Yes [id number] 1mg Take 1 [facility] (ATIVAN) 1 0-25 tablet by [facility] mg tablet 00:00: mouth 2 [place] (two) Medical times Branch daily as needed for Anxiety or Agitation. LORazepam 2021-06 Yes [id number] 1mg Take 1 [facility] (ATIVAN) 1 0-25 tablet by [facility] mg tablet 00:00: mouth 2 (two) Medical times Branch daily as needed for Anxiety or Agitation. LORazepam 2021-06 Yes [id number] 1mg Take 1 [facility] (ATIVAN) 1 0-25 tablet by [facility] mg tablet 00:00: mouth 2 (two) Medical times Branch daily as needed for Anxiety or Agitation. LORazepam 2021-06 Yes [id number] 1mg Take 1 [facility] (ATIVAN) 1 0-25 tablet by [facility] mg tablet 00:00: mouth 2 (two) Medical times Branch daily as needed for Anxiety or Agitation. LORazepam 2021-06 Yes [id number] 1mg Take 1 [facility] (ATIVAN) 1 0-25 tablet by [facility] mg tablet 00:00: mouth 2 [place] (two) Medical times Branch daily as needed for Anxiety or Agitation. LORazepam 2021-06 Yes [id number] 1mg Take 1 [facility] (ATIVAN) 1 0-25 tablet by [facility] mg tablet 00:00: mouth 2 [place] (two) Medical times Branch daily as needed for Anxiety or Agitation. LORazepam 2021-06 Yes [id number] 1mg Take 1 [facility] (ATIVAN) 1 0-25 tablet by [facility] mg tablet 00:00: mouth 2 [place] (two) Medical times Branch daily as needed for Anxiety or Agitation. LORazepam 2021-06 Yes [id number] 1mg Take 1 [facility] (ATIVAN) 1 0-25 tablet by [facility] mg tablet 00:00: mouth 2 (two) Medical times Branch daily as needed for Anxiety or Agitation. LORazepam 2021-06 Yes [id number] 1mg Take 1 [facility] (ATIVAN) 1 0-25 tablet by [facility] mg tablet 00:00: mouth 2 (two) Medical times Branch daily as needed for Anxiety or Agitation. LORazepam 2021-06 Yes [id number] 1mg Take 1 [facility] (ATIVAN) 1 0-25 tablet by [facility] mg tablet 00:00: mouth 2 (two) Medical times Branch daily as needed for Anxiety or Agitation. LORazepam 2021-06 Yes [id number] 1mg Take 1 [facility] (ATIVAN) 1 0-25 tablet by [facility] mg tablet 00:00: mouth 2 (two) Medical times Branch daily as needed for Anxiety or Agitation. LORazepam 2021-06 Yes [id number] 1mg Take 1 [facility] (ATIVAN) 1 0-25 tablet by [facility] mg tablet 00:00: mouth (two) Medical times Branch daily as needed for Anxiety or Agitation. LORazepam 2021-06 Yes [id number] 1mg Take 1 [facility] (ATIVAN) 1 0-25 tablet by [facility] mg tablet 00:00: mouth 2 (two) Medical times Branch daily as needed for Anxiety or Agitation. LORazepam 2021-06 Yes [id number] 1mg Take 1 [facility] (ATIVAN) 1 0-25 tablet by [facility] mg tablet 00:00: mouth (two) Medical times Branch daily as needed for Anxiety or Agitation. LORazepam 2021-06 Yes [id number] 1mg Take 1 [facility] (ATIVAN) 1 0-25 tablet by [facility] mg tablet 00:00: mouth (two) Medical times Branch daily as needed for Anxiety or Agitation. insulin 2021-06- No [id number] inject 20 [facility] glargine 0-25 11-23 Units [facility] ([facility] 00:00: [place] U-100 00 :00 skin twice Medical INSULIN) a day. Branch 100 unit/mL injection insulin 2021-06- No [id number] inject 20 [facility] glargine 0-25 11-23 Units [facility] (LANTUS 00:00: 00:[place] U-100 00 :00 skin twice Medical INSULIN) a day. Branch 100 unit/mL injection losartan 2021-06 Yes [id number] 25mg Take 1 [facility] mg tablet 0-24 tablet by [facility] o f 00:00: mouth in [place] the Medical morning. Branch atorvastati 2021-06 Yes [id number] 20mg Take 1 [facility] n 20 mg 0-24 tablet by [facility] tablet 00:00: mouth at [place] [address] bedtime. Medical Branch losartan 2021-06 Yes [id number] 25mg Take 1 [facility] mg tablet 0-24 tablet by [facility] o f 00:00: mouth in [place] the Medical morning. Branch atorvastati 2021-06 Yes [id number] 20mg Take 1 [facility] n 20 mg 0-24 tablet by [facility] tablet 00:00: mouth at [place] 00 bedtime. Medical Branch losartan 2021-06 Yes [id number] 25mg Take 1 [facility] mg tablet 0-24 tablet by [facility] o f 00:00: mouth in [place] the Medical morning. Branch atorvastati 2021-06 Yes [id number] 20mg Take 1 [facility] n 20 mg 0-24 tablet by [facility] tablet 00:00: mouth at [place] [address] bedtime. Medical Branch losartan 2021-06 Yes [id number] 25mg Take 1 [facility] mg tablet 0-24 tablet by [facility] o f 00:00: mouth in [place] the Medical morning. Branch atorvastati 2021-06 Yes [id number] 20mg Take 1 [facility] n 20 mg 0-24 tablet by [facility] tablet 00:00: mouth at [place] 00 bedtime. Medical Branch losartan 25 2021-06 Yes [id number] 25mg Take 1 [facility] mg tablet 0-24 tablet by [facility] o f 00:00: mouth in [place] the Medical morning. Branch atorvastati 2021-06 Yes [id number] 20mg Take 1 [facility] n 20 mg 0-24 tablet by [facility] tablet 00:00: mouth at [place] [address] bedtime. Medical Branch losartan 25 2021-06 Yes [id number] 25mg Take 1 [facility] mg tablet 0-24 tablet by [facility] o f 00:00: mouth in [place] 00 the Medical morning. Branch atorvastati 2021-06 Yes [id number] 20mg Take 1 [facility] n 20 mg 0-24 tablet by [facility] tablet 00:00: mouth at [place] 00 bedtime. Medical Branch losartan 25 2021-06 Yes [id number] 25mg Take 1 [facility] mg tablet 0-24 tablet by [facility] o f 00:00: mouth in [place] the Medical morning. Branch atorvastati 2021-06 Yes [id number] 20mg Take 1 [facility] n 20 mg 0-24 tablet by [facility] tablet 00:00: mouth at [place] 00 bedtime. Medical Branch losartan 25 2021-06 Yes [id number] 25mg Take 1 [facility] mg tablet 0-24 tablet by [facility] o f 00:00: mouth in [place] the Medical morning. Branch atorvastati 2021-06 Yes [id number] 20mg Take 1 [facility] n 20 mg 0-24 tablet by [facility] tablet 00:00: mouth at [place] 00 bedtime. Medical Branch losartan 25 2021-06 Yes [id number] 25mg Take 1 [facility] mg tablet 0-24 tablet by [facility] o f 00:00: mouth in [place] the Medical morning. Branch atorvastati 2021-06 Yes [id number] 20mg Take 1 [facility] n 20 mg 0-24 tablet by [facility] of tablet 00:00: mouth at [place] 00 bedtime. Medical Branch losartan 25 2021-06 Yes [id number] 25mg Take 1 [facility] mg tablet 0-24 tablet by [facility] o f 00:00: mouth in [place] the Medical morning. Branch atorvastati 2021-06 Yes [id number] 20mg Take 1 [facility] n 20 mg 0-24 tablet by [facility] of tablet 00:00: mouth at [place] 00 bedtime. Medical Branch losartan 25 2021-06 Yes [id number] 25mg Take 1 [facility] mg tablet 0-24 tablet by [facility] o f 00:00: mouth in [place] the Medical morning. Branch atorvastati 2021-06 Yes [id number] 20mg Take 1 [facility] n 20 mg 0-24 tablet by [facility] of tablet 00:00: mouth at [place] 00 bedtime. Medical Branch losartan 25 2021-06 Yes [id number] 25mg Take 1 [facility] mg tablet 0-24 tablet by [facility] o f 00:00: mouth in [place] the Medical morning. Branch atorvastati 2021-06 Yes [id number] 20mg Take 1 [facility] n 20 mg 0-24 tablet by [facility] of tablet 00:00: mouth at [place] 00 bedtime. Medical Branch losartan 25 2021-06 Yes [id number] 25mg Take 1 [facility] mg tablet 0-24 tablet by [facility] o f 00:00: mouth in [place] the Medical morning. Branch atorvastati 2021-06 Yes [id number] 20mg Take 1 [facility] n 20 mg 0-24 tablet by [facility] of tablet 00:00: mouth at [place] 00 bedtime. Medical Branch losartan 25 2021-06 Yes [id number] 25mg Take 1 [facility] mg tablet 0-24 tablet by [facility] o f 00:00: mouth in [place] the Medical morning. Branch atorvastati 2021-06 Yes [id number] 20mg Take 1 [facility] n 20 mg 0-24 tablet by [facility] of tablet 00:00: mouth at [place] 00 bedtime. Medical Branch losartan 25 2021-06 Yes [id number] 25mg Take 1 [facility] mg tablet 0-24 tablet by [facility] o f 00:00: mouth in [place] the Medical morning. Branch atorvastati 2021-06 Yes [id number] 20mg Take 1 [facility] n 20 mg 0-24 tablet by [facility] of tablet 00:00: mouth at [place] 00 bedtime. Medical Branch losartan 25 2021-06 Yes [id number] 25mg Take 1 [facility] mg tablet 0-24 tablet by [facility] o f 00:00: mouth in [place] the Medical morning. Branch atorvastati 2021-06 Yes [id number] 20mg Take 1 [facility] n 20 mg 0-24 tablet by [facility] of tablet 00:00: mouth at [place] 00 bedtime. Medical Branch losartan 25 2021-06 Yes [id number] 25mg Take 1 [facility] mg tablet 0-24 tablet by [facility] o f 00:00: mouth in [place] the Medical morning. Branch atorvastati 2021-06 Yes [id number] 20mg Take 1 [facility] n 20 mg 0-24 tablet by [facility] of tablet 00:00: mouth at [place] 00 bedtime. Medical Branch losartan 25 2021-06 Yes [id number] 25mg Take 1 [facility] mg tablet 0-24 tablet by [facility] o f 00:00: mouth in [place] 00 the Medical morning. Branch atorvastati 2021-06 Yes [id number] 20mg Take 1 [facility] n 20 mg 0-24 tablet by [facility] of tablet 00:00: mouth at [place] 00 bedtime. Medical Branch losartan 25 2021-06 Yes [id number] 25mg Take 1 [facility] mg tablet 0-24 tablet by [facility] o f 00:00: mouth in [place] the Medical morning. Branch atorvastati 2021-06 Yes [id number] 20mg Take 1 [facility] n 20 mg 0-24 tablet by [facility] of tablet 00:00: mouth at [place] 00 bedtime. Medical Branch losartan 25 2021-06 Yes [id number] 25mg Take 1 [facility] mg tablet 0-24 tablet by [facility] o f 00:00: mouth in [place] 00 the Medical morning. Branch atorvastati 2021-06 Yes [id number] 20mg Take 1 [facility] n 20 mg 0-24 tablet by [facility] of tablet 00:00: mouth at [place] 00 bedtime. Medical Branch losartan 25 2021-06 Yes [id number] 25mg Take 1 [facility] mg tablet 0-24 tablet by [facility] o f 00:00: mouth in [place] the Medical morning. Branch atorvastati 2021-06 Yes [id number] 20mg Take 1 [facility] n 20 mg 0-24 tablet by [facility] of tablet 00:00: mouth at [place] 00 bedtime. Medical Branch losartan 25 2021-06 Yes [id number] 25mg Take 1 [facility] mg tablet 0-24 tablet by [facility] o f 00:00: mouth in [place] the Medical morning. Branch atorvastati 2021-06 Yes [id number] 20mg Take 1 [facility] n 20 mg 0-24 tablet by [facility] of tablet 00:00: mouth at [place] 00 bedtime. Medical Branch losartan 25 2021-06 Yes [id number] 25mg Take 1 [facility] mg tablet 0-24 tablet by [facility] o f 00:00: mouth in [place] 00 the Medical morning. Branch atorvastati 2021-06 Yes [id number] 20mg Take 1 [facility] n 20 mg 0-24 tablet by [facility] of tablet 00:00: mouth at [place] [address] bedtime. Medical Branch losartan 25 2021-06 Yes [id number] 25mg Take 1 [facility] mg tablet 0-24 tablet by [facility] o f 00:00: mouth in [place] 00 the Medical morning. Branch atorvastati 2021-06 Yes [id number] 20mg Take 1 [facility] n 20 mg 0-24 tablet by [facility] of tablet 00:00: mouth at [place] 00 bedtime. Medical Branch losartan 25 2021-06 Yes [id number] 25mg Take 1 [facility] mg tablet 0-24 tablet by [facility] o f 00:00: mouth in [place] the Medical morning. Branch atorvastati 2021-06 Yes [id number] 20mg Take 1 [facility] n 20 mg 0-24 tablet by [facility] of tablet 00:00: mouth at [place] 00 bedtime. Medical Branch losartan 25 2021-06 Yes [id number] 25mg Take 1 [facility] mg tablet 0-24 tablet by [facility] o f 00:00: mouth in [place] the Medical morning. Branch atorvastati 2021-06 Yes [id number] 20mg Take 1 [facility] n 20 mg 0-24 tablet by [facility] of tablet 00:00: mouth at [place] 00 bedtime. Medical Branch losartan 25 2021-06 Yes [id number] 25mg Take 1 [facility] mg tablet 0-24 tablet by [facility] o f 00:00: mouth in [place] the Medical morning. Branch atorvastati 2021-06 Yes [id number] 20mg Take 1 [facility] n 20 mg 0-24 tablet by [facility] of tablet 00:00: mouth at [place] 00 bedtime. Medical Branch losartan 25 2021-06 Yes [id number] 25mg Take 1 [facility] mg tablet 0-24 tablet by [facility] o f 00:00: mouth in [place] the Medical morning. Branch atorvastati 2021-06 Yes [id number] 20mg Take 1 [facility] n 20 mg 0-24 tablet by [facility] of tablet 00:00: mouth at [place] 00 bedtime. Medical Branch losartan 25 2021-06 Yes [id number] 25mg Take 1 [facility] mg tablet 0-24 tablet by [facility] o f 00:00: mouth in [place] the Medical morning. Branch atorvastati 2021-06 Yes [id number] 20mg Take 1 [facility] n 20 mg 0-24 tablet by [facility] of tablet 00:00: mouth at [place] 00 bedtime. Medical Branch losartan 25 2021-06 Yes [id number] 25mg Take 1 [facility] mg tablet 0-24 tablet by [facility] o f 00:00: mouth in [place] 00 the Medical morning. Branch atorvastati 2021-06 Yes [id number] 20mg Take 1 [facility] n 20 mg 0-24 tablet by [facility] tablet 00:00: mouth at [place] 00 bedtime. Medical Branch losartan 25 2021-06 Yes [id number] 25mg Take 1 [facility] mg tablet 0-24 tablet by [facility] o f 00:00: mouth in [place] the Medical morning. Branch atorvastati 2021-06 Yes [id number] 20mg Take 1 [facility] n 20 mg 0-24 tablet by [facility] of tablet 00:00: mouth at [place] 00 bedtime. Medical Branch losartan 25 2021-06 Yes [id number] 25mg Take 1 [facility] mg tablet 0-24 tablet by [facility] o f 00:00: mouth in [place] the Medical morning. Branch atorvastati 2021-06 Yes [id number] 20mg Take 1 [facility] n 20 mg 0-24 tablet by [facility] of tablet 00:00: mouth at [place] 00 bedtime. Medical Branch losartan 25 2021-06 Yes [id number] 25mg Take 1 [facility] mg tablet 0-24 tablet by [facility] o f 00:00: mouth in [place] the Medical morning. Branch atorvastati 2021-06 Yes [id number] 20mg Take 1 [facility] n 20 mg 0-24 tablet by [facility] of tablet 00:00: mouth at [place] 00 bedtime. Medical Branch losartan 25 2021-06 Yes [id number] 25mg Take 1 [facility] mg tablet 0-24 tablet by [facility] o f 00:00: mouth in [place] the Medical morning. Branch atorvastati 2021-06 Yes [id number] 20mg Take 1 [facility] n 20 mg 0-24 tablet by [facility] of tablet 00:00: mouth at [place] 00 bedtime. Medical Branch losartan 25 2021-06 Yes [id number] 25mg Take 1 [facility] mg tablet 0-24 tablet by [facility] o f 00:00: mouth in [place] the Medical morning. Branch atorvastati 2021-06 Yes [id number] 20mg Take 1 [facility] n 20 mg 0-24 tablet by [facility] of tablet 00:00: mouth at [place] 00 bedtime. Medical Branch losartan 25 2021-06 Yes [id number] 25mg Take 1 [facility] mg tablet 0-24 tablet by [facility] o f 00:00: mouth in [place] the Medical morning. Branch atorvastati 2021-06 Yes [id number] 20mg Take 1 [facility] n 20 mg 0-24 tablet by [facility] of tablet 00:00: mouth at [place] 00 bedtime. Medical Branch losartan 25 2021-06 Yes [id number] 25mg Take 1 [facility] mg tablet 0-24 tablet by [facility] o f 00:00: mouth in [place] the Medical morning. Branch atorvastati 2021-06 Yes [id number] 20mg Take 1 [facility] n 20 mg 0-24 tablet by [facility] of tablet 00:00: mouth at [place] 00 bedtime. Medical Branch losartan 25 2021-06 Yes [id number] 25mg Take 1 [facility] mg tablet 0-24 tablet by [facility] o f 00:00: mouth in [place] the Medical morning. Branch atorvastati 2021-06 Yes [id number] 20mg Take 1 [facility] n 20 mg 0-24 tablet by [facility] of tablet 00:00: mouth at [place] 00 bedtime. Medical Branch losartan 25 2021-06 Yes [id number] 25mg Take 1 [facility] mg tablet 0-24 tablet by [facility] o f 00:00: mouth in [place] the Medical morning. Branch atorvastati 2021-06 Yes [id number] 20mg Take 1 [facility] n 20 mg 0-24 tablet by [facility] of tablet 00:00: mouth at [place] 00 bedtime. Medical Branch losartan 25 2021-06 Yes [id number] 25mg Take 1 [facility] mg tablet 0-24 tablet by [facility] o f 00:00: mouth in [place] the Medical morning. Branch atorvastati 2021-06 Yes [id number] 20mg Take 1 [facility] n 20 mg 0-24 tablet by [facility] of tablet 00:00: mouth at [place] 00 bedtime. Medical Branch losartan 2021-06 Yes [id number] 25mg Take 1 [facility] mg tablet 0-24 tablet by [facility] o f 00:00: mouth in [place] the Medical morning. Branch atorvastati 2021-06 Yes [id number] 20mg Take 1 [facility] n 20 mg 0-24 tablet by [facility] of tablet 00:00: mouth at [place] 00 bedtime. Medical Branch losartan 25 2021-06 Yes [id number] 25mg Take 1 [facility] mg tablet 0-24 tablet by [facility] o f 00:00: mouth in [place] the Medical morning. Branch atorvastati 2021-06 Yes [id number] 20mg Take 1 [facility] n 20 mg 0-24 tablet by [facility] of tablet 00:00: mouth at [place] 00 bedtime. Medical Branch losartan 25 2021-06 Yes [id number] 25mg Take 1 [facility] mg tablet 0-24 tablet by [facility] o f 00:00: mouth in [place] the Medical morning. Branch atorvastati 2021-06 Yes [id number] 20mg Take 1 [facility] n 20 mg 0-24 tablet by [facility] of tablet 00:00: mouth at [place] 00 bedtime. Medical Branch losartan 25 2021-06 Yes [id number] 25mg Take 1 [facility] mg tablet 0-24 tablet by [facility] o f 00:00: mouth in [place] the Medical morning. Branch atorvastati 2021-06 Yes [id number] 20mg Take 1 [facility] n 20 mg 0-24 tablet by [facility] of tablet 00:00: mouth at [place] 00 bedtime. Medical Branch losartan 25 2021-06 Yes [id number] 25mg Take 1 [facility] mg tablet 0-24 tablet by [facility] o f 00:00: mouth in [place] the Medical morning. Branch atorvastati 2021-06 Yes [id number] 20mg Take 1 [facility] n 20 mg 0-24 tablet by [facility] of tablet 00:00: mouth at [place] 00 bedtime. Medical Branch losartan 2021-06 Yes [id number] 25mg Take 1 [facility] mg tablet 0-24 tablet by [facility] o f 00:00: mouth in [place] the Medical morning. Branch atorvastati 2021-06 Yes [id number] 20mg Take 1 [facility] n 20 mg 0-24 tablet by [facility] of tablet 00:00: mouth at [place] 00 bedtime. Medical Branch losartan 25 2021-06 Yes [id number] 25mg Take 1 [facility] mg tablet 0-24 tablet by [facility] o f 00:00: mouth in [place] the Medical morning. Branch atorvastati 2021-06 Yes [id number] 20mg Take 1 [facility] n 20 mg 0-24 tablet by [facility] of tablet 00:00: mouth at [place] 00 bedtime. Medical Branch losartan 25 2021-06 Yes [id number] 25mg Take 1 [facility] mg tablet 0-24 tablet by [facility] o f 00:00: mouth in [place] the Medical morning. Branch atorvastati 2021-06 Yes [id number] 20mg Take 1 [facility] n 20 mg 0-24 tablet by [facility] of tablet 00:00: mouth at [place] 00 bedtime. Medical Branch losartan 2021-06 Yes [id number] 25mg Take 1 [facility] mg tablet 0-24 tablet by [facility] o f 00:00: mouth in [place] 00 the Medical morning. Branch atorvastati 2021-06 Yes [id number] 20mg Take 1 [facility] n 20 mg 0-24 tablet by [facility] of tablet 00:00: mouth at [place] 00 bedtime. Medical Branch losartan 25 2021-06 Yes [id number] 25mg Take 1 [facility] mg tablet 0-24 tablet by [facility] o f 00:00: mouth in [place] 00 the Medical morning. Branch atorvastati 2021-06 Yes [id number] 20mg Take 1 [facility] n 20 mg 0-24 tablet by [facility] of tablet 00:00: mouth at [place] 00 bedtime. Medical Branch losartan 2021-06- No [id number] 25mg Take 1 [facility] mg tablet 0-24 03-06 tablet by [facility] of 00:00: 00:00 mouth in [place] 00 :00 the Medical morning. Branch atorvastati 2021-06- No [id number] 20mg Take 1 [facility] n 20 mg 0-24 03-06 tablet by [facility] of tablet 00:00: 00:00 mouth at [place] 00 :00 bedtime. Medical Branch losartan 2021-06- No [id number] 25mg Take 1 [facility] mg tablet 0-24 03-06 tablet by [facility] of 00:00: 00:00 mouth in [place] 00 :00 the Medical morning. Branch atorvastati 2021-06- No [id number] 20mg Take 1 [facility] n 20 mg 0-24 03-06 tablet by [facility] of tablet 00:00: 00:00 mouth at [place] 00 :00 bedtime. Medical Branch lamoTRIgine 2021-06 Yes [id number] 200mg Take 2 [facility] 100 mg 0-11 tablets by [facility] of tablet 00:00: mouth in [place] 00 the Medical morning. Branch LORazepam 2021-06 Yes [id number] 1mg Take 1 [facility] (ATIVAN) 1 0-11 tablet by [facility] mg tablet 00:00: mouth 2 [place] 00 (two) Medical times Branch daily as needed for Anxiety or Agitation. prazosin 2021-06 Yes [id number] 1mg Take 1 [facility] mg capsule 0-11 capsule by [facility] of 00:00: mouth at [place] [address] bedtime. Medical Branch lamoTRIgine 2021-06 Yes [id number] 200mg Take 2 [facility] 100 mg 0-11 tablets by [facility] of tablet 00:00: mouth in [place] the Medical morning. Branch LORazepam 2021-06 Yes [id number] 1mg Take 1 [facility] (ATIVAN) 1 0-11 tablet by [facility] of mg tablet 00:00: mouth 2 [place] (two) [facility] times [place] daily as needed for Anxiety or Agitation. prazosin 2021-06 Yes [id number] 1mg Take 1 [facility] n[facility] mg capsule 0-11 capsule by [facility]y of 00:00: mouth at [place] [address] bedtime. Medical Branch lamoTRIgine 2021-06 Yes [id number] 200mg Take 2 [facility] 100 mg 0-11 tablets by [facility] of tablet 00:00: mouth in [place] the Medical morning. Branch LORazepam 2021-06 Yes [id number] 1mg Take 1 [facility] (ATIVAN) 1 0-11 tablet by [facility] of mg tablet 00:00: mouth 2 [place] (two) [facility] daily as needed for Anxiety or Agitation. prazosin 2021-06 Yes [id number] 1mg Take 1 [facility] n[facility] mg capsule 0-11 capsule by [facility] of 00:00: mouth at [place] [address] bedtime. Medical Branch lamoTRIgine 2021-06 Yes [id number] 200mg Take 2 [facility] 100 mg 0-11 tablets by [facility] of tablet 00:00: mouth in [place] the Medical morning. Branch LORazepam 2021-06 Yes [id number] 1mg Take 1 [facility] (ATIVAN) 1 0-11 tablet by [facility] of mg tablet 00:00: mouth 2 [place] (two) [facility] daily as needed for Anxiety or Agitation. prazosin 2021-06 Yes [id number] 1mg Take 1 [facility] mg capsule 0-11 capsule by [facility] of 00:00: mouth at [place] [address] bedtime. Medical Branch lamoTRIgine 2021-06 Yes [id number] 200mg Take 2 [facility] 100 mg 0-11 tablets by [facility] of tablet 00:00: mouth in [place] [address] the Medical morning. Branch prazosin 2021-06 Yes [id number] 1mg Take 1 [facility] mg capsule 0-11 capsule by [facility] of 00:00: mouth at [place] [address] bedtime. Medical Branch lamoTRIgine 2021-06 Yes [id number] 200mg Take 2 [facility] 100 mg 0-11 tablets by [facility] of tablet 00:00: mouth in [place] the morning. Branch prazosin 2021-06 Yes [id number] 1mg Take 1 [facility] mg capsule 0-11 capsule by [facility] of 00:00: mouth at [place] [address] bedtime. Medical Branch lamoTRIgine 2021-06 Yes [id number] 200mg Take 2 [facility] 100 mg 0-11 tablets by [facility] of tablet 00:00: mouth in [place] the Medical morning. Branch prazosin 2021-06 Yes [id number] 1mg Take 1 [facility] mg capsule 0-11 capsule by [facility] of 00:00: mouth at [place] [address] bedtime. Medical Branch lamoTRIgine 2021-06 Yes [id number] 200mg Take 2 [facility] 100 mg 0-11 tablets by [facility] of tablet 00:00: mouth in [place] the morning. Branch prazosin 2021-06 Yes [id number] 1mg Take 1 [facility] mg capsule 0-11 capsule by [facility] of 00:00: mouth at [place] [address] bedtime. Medical Branch lamoTRIgine 2021-06 Yes [id number] 200mg Take 2 [facility] 100 mg 0-11 tablets by [facility] of tablet 00:00: mouth in [place] the morning. Branch prazosin 2021-06 Yes [id number] 1mg Take 1 [facility] mg capsule 0-11 capsule by [facility] of 00:00: mouth at [place] [address] bedtime. Medical Branch lamoTRIgine 2021-06 Yes [id number] 200mg Take 2 [facility] 100 mg 0-11 tablets by [facility] of tablet 00:00: mouth in [place] the morning. Branch prazosin 2021-06 Yes [id number] 1mg Take 1 [facility] mg capsule 0-11 capsule by [facility] of 00:00: mouth at [place] [address] bedtime. Medical Branch lamoTRIgine 2021-06 Yes [id number] 200mg Take 2 [facility] 100 mg 0-11 tablets by [facility] of tablet 00:00: mouth in [place] the Medical morning. Branch prazosin 2021-06 Yes [id number] 1mg Take 1 U nivers mg capsule 0-11 capsule by ity of 00:00: mouth at [place] [address] bedtime. Medical Branch lamoTRIgine 2021-06 Yes [id number] 200mg Take 2 [facility] 100 mg 0-11 tablets by ity of tablet 00:00: mouth in [place] the morning. Branch prazosin 2021-06 Yes [id number] 1mg Take 1 [facility] nivers mg capsule 0-11 capsule by ity of 00:00: mouth at [place] [address] bedtime. Medical Branch lamoTRIgine 2021-06 Yes [id number] 200mg Take 2 [facility] 100 mg 0-11 tablets by ity of tablet 00:00: mouth in [place] the Medical morning. Branch prazosin 2021-06 Yes [id number] 1mg Take 1 U nivers mg capsule 0-11 capsule by ity of 00:00: mouth at [place] [address] bedtime. [facility] Branch lamoTRIgine 2021-06 Yes [id number] 200mg Take 2 [facility] 100 mg 0-11 tablets by ity of tablet 00:00: mouth in [place] the morning. Branch prazosin 2021-06 Yes [id number] 1mg Take 1 U nivers mg capsule 0-11 capsule by ity of 00:00: mouth at [place] [address] bedtime. [facility] Branch lamoTRIgine 2021-06 Yes [id number] 200mg Take 2 [facility] 100 mg 0-11 tablets by ity of tablet 00:00: mouth in [place] the morning. Branch prazosin 2021-06 Yes [id number] 1mg Take 1 U nivers mg capsule 0-11 capsule by ity of 00:00: mouth at [place] [address] bedtime. Medical Branch lamoTRIgine 2021-06 Yes [id number] 200mg Take 2 [facility] 100 mg 0-11 tablets by ity of tablet 00:00: mouth in [place] the morning. Branch prazosin 2021-06 Yes [id number] 1mg Take 1 U nivers mg capsule 0-11 capsule by ity of 00:00: mouth at [place] [address] bedtime. [facility] Branch lamoTRIgine 2021-06 Yes [id number] 200mg Take 2 [facility] 100 mg 0-11 tablets by ity of tablet 00:00: mouth in [place] the Medical morning. Branch prazosin 2021-06 Yes [id number] 1mg Take 1 U nivers mg capsule 0-11 capsule by ity of 00:00: mouth at [place] 00 bedtime. Medical Branch lamoTRIgine 2021-06 Yes [id number] 200mg Take 2 [facility] 100 mg 0-11 tablets by ity of tablet 00:00: mouth in [place] 00 the Medical morning. Branch prazosin 2021-06 Yes [id number] 1mg Take 1 [facility] nivers mg capsule 0-11 capsule by ity of 00:00: mouth at [place] 00 bedtime. Medical Branch lamoTRIgine 2021-06 Yes [id number] 200mg Take 2 [facility] 100 mg 0-11 tablets by ity of tablet 00:00: mouth in [place] 00 the Medical morning. Branch prazosin 2021-06 Yes [id number] 1mg Take 1 [facility] nivers mg capsule 0-11 capsule by ity of 00:00: mouth at [place] 00 bedtime. Medical Branch lamoTRIgine 2021-06 Yes [id number] 200mg Take 2 [facility] 100 mg 0-11 tablets by ity of tablet 00:00: mouth in [place] 00 the Medical morning. Branch prazosin 2021-06 Yes [id number] 1mg Take 1 [facility] nivers mg capsule 0-11 capsule by ity of 00:00: mouth at [place] [address] bedtime. Medical Branch lamoTRIgine 2021-06 Yes [id number] 200mg Take 2 [facility] 100 mg 0-11 tablets by ity of tablet 00:00: mouth in [place] 00 the Medical morning. Branch prazosin 2021-06 Yes [id number] 1mg Take 1 [facility] nivers mg capsule 0-11 capsule by ity of 00:00: mouth at [place] [address] bedtime. Medical Branch lamoTRIgine 2021-06- No [id number] 200mg Take 2 [facility] 100 mg 0-11 01-18 tablets by ity of tablet 00:00: 00:00 mouth in [place] 00 :00 the Medical morning. Branch prazosin 2021-06- No [id number] 1mg Take 1 [facility] mg capsule 0-11 01-18 capsule by it y of 00:00: 00:00 mouth at [place] 00 :00 bedtime. Medical Branch lamoTRIgine 2021-06- No [id number] 200mg Take 2 [facility] 100 mg 0-11 01-18 tablets by ity of tablet 00:00: 00:00 mouth in [place] 00 :00 the Medical morning. Branch prazosin 2021-06- No [id number] 1mg Take 1 [facility] mg capsule 0-11 01-18 capsule by it y of 00:00: 00:00 mouth at [place] 00 :00 bedtime. Medical Branch LORazepam 2021-06- No [id number] 1mg Take 1 U nivers (ATIVAN) 1 0-11 10-25 tablet by ity of mg tablet 00:00: 00:[place] 00 :[place] (two) Medical times Branch daily as needed for Anxiety or Agitation. LORazepam 2021-06 No [id number] 1mg Take 1 [facility] nivers (ATIVAN) 1 0-11 10-25 tablet by ity of mg tablet 00:00: 00:[place] 00 :[place] (two) Medical times Branch daily as needed for Anxiety or Agitation. LORazepam 2021-06 Yes [id number] 1mg Take 1 [facility] (ATIVAN) 1 0-10 tablet by ity of mg tablet 00:00: mouth 2 [place] (two) Medical times [place] daily as needed for Anxiety or Agitation. prazosin 2021-06 Yes [id number] 1mg Take 1 [facility] nivers mg capsule 0-10 capsule by ity of 00:00: mouth at [place] 00 bedtime. Medical Branch lamoTRIgine 2021-06 Yes [id number] 200mg Take 2 [facility] 100 mg 0-10 tablets by ity of tablet 00:00: mouth in [place] 00 the Medical morning. Branch LORazepam 2021-06 Yes [id number] 1mg Take 1 [facility] [place] (ATIVAN) 1 0-10 tablet by ity of mg tablet 00:00: mouth 2 (two) Medical times [place] daily as needed for Anxiety or Agitation. prazosin 2021-06 Yes [id number] 1mg Take 1 [facility] nivers mg capsule 0-10 capsule by ity of 00:00: mouth at [place] 00 bedtime. Medical Branch lamoTRIgine 2021-06 Yes [id number] 200mg Take 2 [facility] 100 mg 0-10 tablets by ity of tablet 00:00: mouth in [place] 00 the Medical morning. Branch LORazepam 2021-06- No [id number] 1mg Take 1 [facility] nivers (ATIVAN) 1 0-10 10-11 tablet by ity of mg tablet 00:00: 00:[place] 00 :[place] (two) Medical times [place] daily as needed for Anxiety or Agitation. prazosin 1 2021-06- No [id number] 1mg Take 1 [facility] mg capsule 0-10 10-11 capsule by it y of 00:00: 00:00 mouth at [place] 00 :00 bedtime. [facility] lamoTRIgine 2021-06- No [id number] 200mg Take 2 [facility] 100 mg 0-10 10-11 tablets by ity of tablet 00:00: 00:00 mouth in [place] 00 :00 the [facility] morning. [place] FAMOTIDINE 2021-06 Yes [id number] TAKE ONE [facility] 40 mg 0-04 TABLET BY ity of tablet 00:00: MOUTH [place] 00 EVERY DAY Medical IN THE [place] MORNING. FAMOTIDINE 2021-06 Yes [id number] TAKE ONE [facility] 40 mg 0-04 TABLET BY ity of tablet 00:00: MOUTH [place] 00 EVERY DAY Medical IN THE [place] MORNING. FAMOTIDINE 2021-06 Yes [id number] TAKE ONE [facility] 40 mg 0-04 TABLET BY ity of tablet 00:00: MOUTH [place] 00 EVERY DAY Medical IN THE [place] MORNING. FAMOTIDINE 2021-06 Yes [id number] TAKE ONE [facility] 40 mg 0-04 TABLET BY ity of tablet 00:00: MOUTH [place] 00 EVERY DAY Medical IN THE [place] MORNING. FAMOTIDINE 2021-06 Yes [id number] TAKE ONE [facility] 40 mg 0-04 TABLET BY ity of tablet 00:00: MOUTH [place] 00 EVERY DAY Medical IN THE [place] MORNING. FAMOTIDINE 2021-06 Yes [id number] TAKE ONE [facility] 40 mg 0-04 TABLET BY ity of tablet 00:00: MOUTH [place] 00 EVERY DAY Medical IN THE [place] MORNING. FAMOTIDINE 2021-06 Yes [id number] TAKE ONE [facility] 40 mg 0-04 TABLET BY ity of tablet 00:00: MOUTH [place] 00 EVERY DAY Medical IN THE [place] MORNING. FAMOTIDINE 2021-06 Yes [id number] TAKE ONE [facility] 40 mg 0-04 TABLET BY ity of tablet 00:00: MOUTH [place] 00 EVERY DAY Medical IN THE [place] MORNING. FAMOTIDINE 2021-06 Yes [id number] TAKE ONE [facility] 40 mg 0-04 TABLET BY ity of tablet 00:00: MOUTH [place] 00 EVERY DAY Medical IN THE [place] MORNING. FAMOTIDINE 2021-06 Yes [id number] TAKE ONE [facility] 40 mg 0-04 TABLET BY ity of tablet 00:00: MOUTH [place] 00 EVERY DAY Medical IN THE [place] MORNING. FAMOTIDINE 2021-06- No [id number] TAKE ONE [facility] 40 mg 0-04 11-03 TABLET BY ity of tablet 00:00: 00:00 MOUTH [place] 00 :00 EVERY DAY Medical IN THE [place] MORNING. FAMOTIDINE 2021-06- No [id number] TAKE ONE [facility] 40 mg 0-04 11-03 TABLET BY ity of tablet 00:00: 00:00 MOUTH [place] 00 :00 EVERY DAY Medical IN THE [place] MORNING. LORazepam Yes [id number] 1mg Take 1 [facility] [place] (ATIVAN) 1 9-12 tablet by ity of mg tablet 00:00: mouth (two) Medical times Branch daily as needed for Anxiety or Agitation. LORazepam Yes [id number] 1mg Take 1 [facility] [place] (ATIVAN) 1 9-12 tablet by ity of mg tablet 00:00: mouth (two) Medical times Branch daily as needed for Anxiety or Agitation. LORazepam Yes [id number] 1mg Take 1 [facility] [place] (ATIVAN) 1 9-12 tablet by ity of mg tablet 00:00: mouth (two) Medical times Branch daily as needed for Anxiety or Agitation. LORazepam Yes [id number] 1mg Take 1 [facility] [place] (ATIVAN) 1 9-12 tablet by ity of mg tablet 00:00: mouth (two) Medical times Branch daily as needed for Anxiety or Agitation. LORazepam Yes [id number] 1mg Take 1 [facility] [place] (ATIVAN) 1 9-12 tablet by ity of mg tablet 00:00: mouth (two) Medical times Branch daily as needed for Anxiety or Agitation. LORazepam 2021- No [id number] 1mg Take 1 [facility] nivers (ATIVAN) 1 9-12 10-10 tablet by ity of mg tablet 00:00: 00:[place] mouth [place] 00 :[place] (two) Medical times Branch daily as needed for Anxiety or Agitation. famotidine Yes [id number] 40mg Take 1 [facility] (PEPCID) 40 9-01 tablet by ity of mg tablet 00:00: [place] 00 the Medical morning. Branch famotidine 2021-0 Yes [id number] 40mg Take 1 [facility] (PEPCID) 40 9-01 tablet by ity of mg tablet 00:00: [place] 00 the Medical morning. Branch famotidine 2021-0 Yes [id number] 40mg Take 1 [facility] (PEPCID) 40 9-01 tablet by ity of mg tablet 00:00: mouth [place] 00 the Medical morning. Branch famotidine 0 Yes [id number] 40mg Take 1 [facility] (PEPCID) 40 9-01 tablet by ity of mg tablet 00:00: [place] 00 the Medical morning. Branch famotidine 0 2021- No [id number] 40mg Take 1 [facility] (PEPCID) 40 9- 10-04 tablet by it y of mg tablet 00:00: 00:00 mouth in [place] 00 :00 the Medical morning. Branch famotidine 0 2021- No [id number] 40mg Take 1 [facility] (PEPCID) 40 - 10- tablet by it y of mg tablet 00:00: 00:00 mouth in [place] 00 :00 the Medical morning. Branch Nitrofurant 0 Yes [id number] 100mg Take 1 [facility] oin&Nit. 8-19 capsule by ity o f [place] 00:00: mouth [place] ([place] 00 the Medical 100 mg morning Branch capsule and 1 capsule in the evening. Nitrofurant 2021-0 Yes [id number] 100mg Take 1 [facility] oin&Nit. 8-19 capsule by ity o f [place]ryst 00:00: mouth [place] ([place]) 00 the Medical 100 mg morning Branch capsule and 1 capsule in the evening. Nitrofurant 2021-0 Yes [id number] 100mg Take 1 [facility] oin&Nit. 8-19 capsule by ity o f [place]ryst 00:00: mouth [place] ([place]) 00 the Medical 100 mg morning Branch capsule and 1 capsule in the evening. Nitrofurant 2021-0 Yes [id number] 100mg Take 1 [facility] oin&Nit. 8-19 capsule by ity o f [place]ryst 00:00: mouth [place] ([place]) 00 the Medical 100 mg morning Branch capsule and 1 capsule in the evening. Nitrofurant 0 Yes [id number] 100mg Take 1 [facility] oin&Nit. 8-19 capsule by ity o f [place]rocryst 00:00: mouth [place] ([place]) 00 the Medical 100 mg morning Branch capsule and 1 capsule in the evening. Nitrofurant 0 Yes [id number] 100mg Take 1 [facility] oin&Nit. 8-19 capsule by ity o f [place]ryst 00:00: mouth [place] ([place]) 00 the Medical 100 mg morning Branch capsule and 1 capsule in the evening. Nitrofurant Yes [id number] 100mg Take 1 [facility] oin&Nit. 8-19 capsule by ity o f Macrocryst 00:00: mouth [place] ([place]CR[place]) 00 the Medical 100 mg morning Branch capsule and 1 capsule in the evening. Nitrofurant Yes [id number] 100mg Take 1 [facility] oin&Nit. 8-19 capsule by ity o f [place]ryst 00:00: mouth [place] ([place]) 00 the Medical 100 mg morning Branch capsule and 1 capsule in the evening. Nitrofurant Yes [id number] 100mg Take 1 [facility] oin&Nit. 8-19 capsule by ity o f [place]rocryst 00:00: mouth [place] ([place]) 00 the Medical 100 mg morning Branch capsule and 1 capsule in the evening. Nitrofurant 0 Yes [id number] 100mg Take 1 [facility] oin&Nit. 8-19 capsule by ity o f [place]ryst 00:00: mouth [place] ([place]) 00 the Medical 100 mg morning Branch capsule and 1 capsule in the evening. Nitrofurant 0 Yes [id number] 100mg Take 1 [facility] oin&Nit. 8-19 capsule by ity o f [place]ryst 00:00: mouth [place] ([place]) 00 the Medical 100 mg morning Branch capsule and 1 capsule in the evening. Nitrofurant 2021-0 Yes [id number] 100mg Take 1 [facility] oin&Nit. 8-19 capsule by ity o f [place] 00:00: mouth [place] ([place]) 00 the Medical 100 mg morning Branch capsule and 1 capsule in the evening. Nitrofurant 0 Yes [id number] 100mg Take 1 [facility] oin&Nit. 8-19 capsule by ity o f Macrocryst 00:00: mouth [place] ([place]CR[place]) 00 the Medical 100 mg morning Branch capsule and 1 capsule in the evening. Nitrofurant 0 Yes [id number] 100mg Take 1 [facility] oin&Nit. 8-19 capsule by ity o f [place]rocryst 00:00: mouth [place] ([place]CR[place]) 00 the Medical 100 mg morning Branch capsule and 1 capsule in the evening. Nitrofurant Yes [id number] 100mg Take 1 [facility] oin&Nit. 8-19 capsule by ity o f [place]ryst 00:00: mouth [place] ([place]) 00 the Medical 100 mg morning Branch capsule and 1 capsule in the evening. Nitrofurant Yes [id number] 100mg Take 1 [facility] oin&Nit. 8-19 capsule by ity o f [place]ryst 00:00: mouth [place] ([place]CR[place]) 00 the Medical 100 mg morning Branch capsule and 1 capsule in the evening. Nitrofurant 0 Yes [id number] 100mg Take 1 [facility] oin&Nit. 8-19 capsule by ity o f [place]ryst 00:00: mouth [place] ([place]CR[place]) 00 the Medical 100 mg morning Branch capsule and 1 capsule in the evening. Nitrofurant 0 Yes [id number] 100mg Take 1 [facility] oin&Nit. 8-19 capsule by ity o f [place]ryst 00:00: mouth [place] ([place]CR[place]) 00 the Medical 100 mg morning Branch capsule and 1 capsule in the evening. Nitrofurant 0 Yes [id number] 100mg Take 1 [facility] oin&Nit. 8-19 capsule by ity o f Macrocryst 00:00: mouth [place] ([place]CR[place]) 00 the Medical 100 mg morning Branch capsule and 1 capsule in the evening. Nitrofurant 0 Yes [id number] 100mg Take 1 [facility] oin&Nit. 8-19 capsule by ity o f [place]rocryst 00:00: mouth [place] ([place]CR[place]) 00 the Medical 100 mg morning Branch capsule and 1 capsule in the evening. Nitrofurant 0 Yes [id number] 100mg Take 1 [facility] oin&Nit. 8-19 capsule by ity o f [place]ryst 00:00: mouth [place] ([place]CR[place]) 00 the Medical 100 mg morning Branch capsule and 1 capsule in the evening. Nitrofurant 2021-0 Yes [id number] 100mg Take 1 [facility] oin&Nit. 8-19 capsule by ity o f Macrocryst 00:00: mouth [place] ([place]CR[place]) 00 the Medical 100 mg morning Branch capsule and 1 capsule in the evening. Nitrofurant 0 Yes [id number] 100mg Take 1 [facility] oin&Nit. 8-19 capsule by ity o f Macrocryst 00:00: mouth in [place] ([place]CR[place]) 00 the Medical 100 mg morning Branch capsule and 1 capsule in the evening. Nitrofurant 0 Yes [id number] 100mg Take 1 [facility] oin&Nit. 8-19 capsule by ity o f Macrocryst 00:00: mouth [place] ([place]CROB[place]) 00 the Medical 100 mg morning Branch capsule and 1 capsule in the evening. Nitrofurant 0 Yes [id number] 100mg Take 1 [facility] oin&Nit. 8-19 capsule by ity o f Macrocryst 00:00: mouth [place] ([place]CROB[place]) 00 the Medical 100 mg morning Branch capsule and 1 capsule in the evening. Nitrofurant 0 Yes [id number] 100mg Take 1 [facility] oin&Nit. 8-19 capsule by ity o f [facility]ryst 00:00: mouth [place] ([place]CR[place]) 00 the Medical 100 mg morning Branch capsule and 1 capsule in the evening. Nitrofurant 2021-0 Yes [id number] 100mg Take 1 [facility] oin&Nit. 8-19 capsule by ity o f Mac[place]ryst 00:00: mouth [place] ([place]CR[place]) 00 the Medical 100 mg morning Branch capsule and 1 capsule in the evening. Nitrofurant 2021-0 Yes [id number] 100mg Take 1 [facility] oin&Nit. 8-19 capsule by ity o f Macrocryst 00:00: mouth in [place] ([place]CROBID) 00 the Medical 100 mg morning Branch capsule and 1 capsule in the evening. Nitrofurant Yes [id number] 100mg Take 1 [facility] oin&Nit. 8-19 capsule by ity o f Macrocryst 00:00: mouth in [place] ([place]CR[place]) 00 the Medical 100 mg morning Branch capsule and 1 capsule in the evening. Nitrofurant Yes [id number] 100mg Take 1 [facility] oin&Nit. 8-19 capsule by ity o f Macrocryst 00:00: mouth [place] ([place]CROBID) 00 the Medical 100 mg morning Branch capsule and 1 capsule in the evening. Nitrofurant Yes [id number] 100mg Take 1 [facility] oin&Nit. 8-19 capsule by ity o f Macrocryst 00:00: mouth [place] ([place]CROBID) 00 the Medical 100 mg morning Branch capsule and 1 capsule in the evening. Nitrofurant Yes [id number] 100mg Take 1 [facility] oin&Nit. 8-19 capsule by ity o f Macrocryst 00:00: mouth in [place] ([place]CROBID) 00 the Medical 100 mg morning Branch capsule and 1 capsule in the evening. Nitrofurant Yes [id number] 100mg Take 1 [facility] oin&Nit. 8-19 capsule by ity o f Macrocryst 00:00: mouth in [place] ([place]CROBID) 00 the Medical 100 mg morning Branch capsule and 1 capsule in the evening. Nitrofurant Yes [id number] 100mg Take 1 [facility] oin&Nit. 8-19 capsule by ity o f Macrocryst 00:00: mouth in [place] ([place]CROBID) 00 the Medical 100 mg morning Branch capsule and 1 capsule in the evening. Nitrofurant 0 Yes [id number] 100mg Take 1 [facility] oin&Nit. 8-19 capsule by ity o f Macrocryst 00:00: mouth in [place] ([place]CROBID) 00 the Medical 100 mg morning Branch capsule and 1 capsule in the evening. Nitrofurant 0 Yes [id number] 100mg Take 1 [facility] oin&Nit. 8-19 capsule by ity o f Macrocryst 00:00: mouth in [place] ([place]CROB[place]) 00 the Medical 100 mg morning Branch capsule and 1 capsule in the evening. Nitrofurant 0 Yes [id number] 100mg Take 1 [facility] oin&Nit. 8-19 capsule by ity o f Macrocryst 00:00: mouth in [place] ([place]CROBID) 00 the Medical 100 mg morning Branch capsule and 1 capsule in the evening. Nitrofurant 0 Yes [id number] 100mg Take 1 [facility] oin&Nit. 8-19 capsule by ity o f Macrocryst 00:00: mouth in [place] ([place]CROBID) 00 the Medical 100 mg morning Branch capsule and 1 capsule in the evening. Nitrofurant Yes [id number] 100mg Take 1 [facility] oin&Nit. 8-19 capsule by ity o f Macrocryst 00:00: mouth in [place] ([place]CROBID) 00 the Medical 100 mg morning Branch capsule and 1 capsule in the evening. Nitrofurant Yes [id number] 100mg Take 1 [facility] oin&Nit. 8-19 capsule by ity o f [facility]rocryst 00:00: mouth in [place] ([place]CROBID) 00 the Medical 100 mg morning Branch capsule and 1 capsule in the evening. Nitrofurant Yes [id number] 100mg Take 1 [facility] oin&Nit. 8-19 capsule by ity o f Macrocryst 00:00: mouth in [place] ([place]CR[place]) 00 the Medical 100 mg morning Branch capsule and 1 capsule in the evening. Nitrofurant 0 Yes [id number] 100mg Take 1 [facility] oin&Nit. 8-19 capsule by ity o f [facility]ryst 00:00: mouth in [place] ([place]CROBID) 00 the Medical 100 mg morning Branch capsule and 1 capsule in the evening. Nitrofurant 0 Yes [id number] 100mg Take 1 [facility] oin&Nit. 8-19 capsule by ity o f Mac[facility]ryst 00:00: mouth in [place] ([place]CROBID) 00 the Medical 100 mg morning Branch capsule and 1 capsule in the evening. Nitrofurant 0 Yes [id number] 100mg Take 1 [facility] oin&Nit. 8-19 capsule by ity o f [facility]ryst 00:00: mouth in [place] ([place]CROBID) 00 the Medical 100 mg morning Branch capsule and 1 capsule in the evening. Nitrofurant Yes [id number] 100mg Take 1 [facility] oin&Nit. 8-19 capsule by ity o f [facility]rocryst 00:00: mouth in [place] ([place]CROBID) 00 the Medical 100 mg morning Branch capsule and 1 capsule in the evening. Nitrofurant Yes [id number] 100mg Take 1 [facility] oin&Nit. 8-19 capsule by ity o f [facility]ryst 00:00: mouth in [place] ([place]CROBID) 00 the Medical 100 mg morning Branch capsule and 1 capsule in the evening. Nitrofurant Yes [id number] 100mg Take 1 [facility] oin&Nit. 8-19 capsule by ity o f [facility]rocryst 00:00: mouth in [place] ([place]CROBID) 00 the Medical 100 mg morning Branch capsule and 1 capsule in the evening. Nitrofurant Yes [id number] 100mg Take 1 [facility] oin&Nit. 8-19 capsule by ity o f [facility]ryst 00:00: mouth in [place] ([place]CROBID) 00 the Medical 100 mg morning Branch capsule and 1 capsule in the evening. Nitrofurant Yes [id number] 100mg Take 1 [facility] oin&Nit. 8-19 capsule by ity o f [facility]ryst 00:00: mouth in [place] ([place]CROBID) 00 the Medical 100 mg morning Branch capsule and 1 capsule in the evening. Nitrofurant Yes [id number] 100mg Take 1 [facility] oin&Nit. 8-19 capsule by ity o f [facility]ryst 00:00: mouth in [place] ([place]CROBID) 00 the Medical 100 mg morning Branch capsule and 1 capsule in the evening. Nitrofurant 0 Yes [id number] 100mg Take 1 [facility] oin&Nit. 8-19 capsule by ity o f [facility]ryst 00:00: mouth in [place] ([place]CROBID) 00 the Medical 100 mg morning Branch capsule and 1 capsule in the evening. Nitrofurant 0 Yes [id number] 100mg Take 1 [facility] oin&Nit. 8-19 capsule by ity o f [facility]rocryst 00:00: mouth in [place] ([place]CROBID) 00 the Medical 100 mg morning Branch capsule and 1 capsule in the evening. Nitrofurant 0 Yes [id number] 100mg Take 1 [facility] oin&Nit. 8-19 capsule by ity o f [facility]ryst 00:00: mouth in [place] ([place]CR[place]) 00 the Medical 100 mg morning Branch capsule and 1 capsule in the evening. Nitrofurant 0 Yes [id number] 100mg Take 1 [facility] oin&Nit. 8-19 capsule by ity o f [facility]ryst 00:00: mouth in [place] ([place]CROB[place]) 00 the Medical 100 mg morning Branch capsule and 1 capsule in the evening. Nitrofurant Yes [id number] 100mg Take 1 [facility] oin&Nit. 8-19 capsule by ity o f [facility]ryst 00:00: mouth in [place] ([place]CROBID) 00 the Medical 100 mg morning Branch capsule and 1 capsule in the evening. Nitrofurant Yes [id number] 100mg Take 1 [facility] oin&Nit. 8-19 capsule by ity o f [facility]ryst 00:00: mouth in [place] ([place]CROBID) 00 the Medical 100 mg morning Branch capsule and 1 capsule in the evening. Nitrofurant Yes [id number] 100mg Take 1 [facility] oin&Nit. 8-19 capsule by ity o f [facility]ryst 00:00: mouth in [place] ([place]CROBID) 00 the Medical 100 mg morning Branch capsule and 1 capsule in the evening. Nitrofurant Yes [id number] 100mg Take 1 [facility] oin&Nit. 8-19 capsule by ity o f [facility]ryst 00:00: mouth in [place] ([place]CROBID) 00 the Medical 100 mg morning Branch capsule and 1 capsule in the evening. Nitrofurant 2021-0 Yes [id number] 100mg Take 1 [facility] oin&Nit. 8-19 capsule by ity o f [facility]ryst 00:00: mouth in [place] ([place]CROBID) 00 the Medical 100 mg morning Branch capsule and 1 capsule in the evening. Nitrofurant 2021-0 Yes [id number] 100mg Take 1 [facility] oin&Nit. 8-19 capsule by ity o f [facility] 00:00: mouth in [place] ([place]CROBID) 00 the Medical 100 mg morning Branch capsule and 1 capsule in the evening. Nitrofurant 3- No [id number] 100mg Take 1 [facility] oin&Nit. 01-24 capsule by ity of Macrocryst 00:00: 00:00 mouth in [place] (MACROBID) 00 :00 the Medical 100 mg morning Branch capsule and 1 capsule in the evening. Nitrofurant 2021-0 3- No [id number] 100mg Take 1 [facility] oin&Nit. 01-24 capsule by ity of Macrocryst 00:00: 00:00 mouth in [place] (MACROBID) 00 :00 the Medical 100 mg morning Branch capsule and 1 capsule in the evening. Insulin 0 Yes [id number] Use as [facility] [place], 8-10 directed ity of Disposable, 00:00: [place] (NOVOFINE [place] [address]) 32 Branch gauge x 1/4" Ndle Insulin 2021-0 Yes [id number] Use as [facility] [place], 8-10 directed ity of Disposable, 00:00: [place] ([place] [address]) 32 Branch gauge x 1/4" Ndle Insulin 2021-0 Yes [id number] Use as [facility] [place], 8-10 directed ity of Disposable, 00:00: [place] ([place] [address]) 32 Branch gauge x 1/4" Ndle Insulin 2021-0 Yes [id number] Use as [facility] [place], 8-10 directed ity of Disposable, 00:00: [place] ([place] [address]) 32 Branch gauge x 1/4" Ndle Insulin 2021-0 Yes [id number] Use as [facility] [place], 8-10 directed ity of Disposable, 00:00: [place] ([place] [address]) 32 Branch gauge x 1/4" Ndle Insulin 2021-0 Yes [id number] Use as [facility] [place], 8-10 directed ity of Disposable, 00:00: [place] ([place] [address]) 32 Branch gauge x 1/4" Ndle Insulin 2021-0 Yes [id number] Use as [facility] [place], 8-10 directed ity of Disposable, 00:00: [place] ([place] [address]) 32 Branch gauge x 1/4" Ndle Insulin 2021-0 Yes [id number] Use as [facility] [place], 8-10 directed ity of Disposable, 00:00: [place] ([place] [address]) 32 Branch gauge x 1/4" Ndle Insulin 2022-0 Yes [id number] Use as [facility] [place], 8-10 directed ity of Disposable, 00:00: [place] ([place] [address]) 32 Branch gauge x 1/4" Ndle Insulin 2022-0 Yes [id number] Use as [facility] [place], 8-10 directed ity of Disposable, 00:00: [place] ([place] [address]) 32 Branch gauge x 1/4" Ndle Insulin 2022-0 Yes [id number] Use as [facility] [place], 8-10 directed ity of Disposable, 00:00: [place] ([place] [address]) 32 Branch gauge x 1/4" Ndle Insulin 2022-0 Yes [id number] Use as [facility] [place], 8-10 directed ity of Disposable, 00:00: [place] ([place] [address]) 32 Branch gauge x 1/4" Ndle Insulin 2022-0 Yes [id number] Use as [facility] [place], 8-10 directed ity of Disposable, 00:00: [place] ([place] [address]) 32 Branch gauge x 1/4" Ndle Insulin 2022-0 Yes [id number] Use as [facility] [place] [place], 8-10 directed ity of Disposable, 00:00: [place] ([place] [address]) 32 Branch gauge x 1/4" Ndle Insulin 2022-0 Yes [id number] Use as [facility] [place], 8-10 directed ity of Disposable, 00:00: [place] ([place] [address]) 32 Branch gauge x 1/4" Ndle Insulin 2022-0 Yes [id number] Use as [facility] [place], 8-10 directed ity of Disposable, 00:00: [place] ([place] [address]) 32 Branch gauge x 1/4" Ndle Insulin 2022-0 Yes [id number] Use as [facility] [place], 8-10 directed ity of Disposable, 00:00: [place] ([place] [address]) 32 Branch gauge x 1/4" Ndle Insulin 2022-0 Yes [id number] Use as [facility] [place], 8-10 directed ity of Disposable, 00:00: [place] ([place] [address]) 32 Branch gauge x 1/4" Ndle Insulin 2022-0 Yes [id number] Use as [facility] [place], 8-10 directed ity of Disposable, 00:00: [place] ([place] [address]) 32 Branch gauge x 1/4" Ndle Insulin 2022-0 Yes [id number] Use as [facility] [place], 8-10 directed ity of Disposable, 00:00: [place] ([place] [address]) 32 Branch gauge x 1/4" Ndle Insulin 2022-0 Yes [id number] Use as [facility] [place], 8-10 directed ity of Disposable, 00:00: [place] ([place] [address]) 32 Branch gauge x 1/4" Ndle Insulin 202-0 Yes [id number] Use as [facility] [place], 8-10 directed ity of Disposable, 00:00: [place] ([place] [address]) 32 Branch gauge x 1/4" Ndle Insulin 202-0 Yes [id number] Use as [facility] [place], 8-10 directed ity of Disposable, 00:00: [place] ([place] [address]) 32 Branch gauge x 1/4" Ndle Insulin 2022-0 Yes [id number] Use as [facility] [place], 8-10 directed ity of Disposable, 00:00: [place] ([place] [address]) 32 Branch gauge x 1/4" Ndle Insulin 2022-0 Yes [id number] Use as [facility] [place], 8-10 directed ity of Disposable, 00:00: [place] ([place] [address]) 32 Branch gauge x 1/4" Ndle Insulin 2022-0 Yes [id number] Use as [facility] [place], 8-10 directed ity of Disposable, 00:00: [place] ([place] [address]) 32 Branch gauge x 1/4" Ndle Insulin 2022-0 Yes [id number] Use as [facility] [place], 8-10 directed ity of Disposable, 00:00: [place] ([place] [address]) 32 Branch gauge x 1/4" Ndle Insulin 2022-0 Yes [id number] Use as [facility] [place], 8-10 directed ity of Disposable, 00:00: [place] ([place] [address]) 32 Branch gauge x 1/4" Ndle Insulin 2022-0 Yes [id number] Use as [facility] [place], 8-10 directed ity of Disposable, 00:00: [place] ([place] [address]) 32 Branch gauge x 1/4" Ndle Insulin 2022-0 Yes [id number] Use as [facility] [place], 8-10 directed ity of Disposable, 00:00: [place] ([place] [address]) 32 Branch gauge x 1/4" Ndle Insulin 2022-0 Yes [id number] Use as [facility] [place], 8-10 directed ity of Disposable, 00:00: [place] ([place] [address]) 32 Branch gauge x 1/4" Ndle Insulin 2022-0 Yes [id number] Use as [facility] [place], 8-10 directed ity of Disposable, 00:00: [place] ([place] [address]) 32 Branch gauge x 1/4" Ndle Insulin 202-0 Yes [id number] Use as [facility] [place], 8-10 directed ity of Disposable, 00:00: [place] ([place] [address]) 32 Branch gauge x 1/4" Ndle Insulin 2022-0 Yes [id number] Use as [facility] [place], 8-10 directed ity of Disposable, 00:00: [place] ([place] [address]) 32 Branch gauge x 1/4" Ndle Insulin 2022-0 Yes [id number] Use as [facility] [place], 8-10 directed ity of Disposable, 00:00: [place] ([place] [address]) 32 Branch gauge x 1/4" Ndle Insulin 2022-0 Yes [id number] Use as [facility] [place], 8-10 directed ity of Disposable, 00:00: [place] ([place] [address]) 32 Branch gauge x 1/4" Ndle Insulin 2022-0 Yes [id number] Use as [facility] [place], 8-10 directed ity of Disposable, 00:00: [place] ([place] [address]) 32 Branch gauge x 1/4" Ndle Insulin 2022-0 Yes [id number] Use as [facility] [place], 8-10 directed ity of Disposable, 00:00: [place] ([place] [address]) 32 Branch gauge x 1/4" Ndle Insulin 2022-0 Yes [id number] Use as [facility] [place], 8-10 directed ity of Disposable, 00:00: [place] ([place] [address]) 32 Branch gauge x 1/4" Ndle Insulin 2022-0 Yes [id number] Use as [facility] [place], 8-10 directed ity of Disposable, 00:00: [place] ([place] [address]) 32 Branch gauge x 1/4" Ndle Insulin 2022-0 Yes [id number] Use as [facility] [place], 8-10 directed ity of Disposable, 00:00: [place] ([place] [address]) 32 Branch gauge x 1/4" Ndle Insulin 2022-0 Yes [id number] Use as [facility] [place], 8-10 directed ity of Disposable, 00:00: [place] ([place] [address]) 32 Branch gauge x 1/4" Ndle Insulin 2022-0 Yes [id number] Use as [facility] [place], 8-10 directed ity of Disposable, 00:00: [place] ([place] [address]) 32 Branch gauge x 1/4" Ndle Insulin 202-0 Yes [id number] Use as [facility] [place], 8-10 directed ity of Disposable, 00:00: [place] ([place] [address]) 32 Branch gauge x 1/4" Ndle Insulin 202-0 Yes [id number] Use as [facility] [place], 8-10 directed ity of Disposable, 00:00: [place] ([place] [address]) 32 Branch gauge x 1/4" Ndle Insulin 2022-0 Yes [id number] Use as [facility] [place], 8-10 directed ity of Disposable, 00:00: [place] ([place] [address]) 32 Branch gauge x 1/4" Ndle Insulin 2022-0 Yes [id number] Use as [facility] [place], 8-10 directed ity of Disposable, 00:00: [place] ([place] [address]) 32 Branch gauge x 1/4" Ndle Insulin 2022-0 Yes [id number] Use as [facility] [place], 8-10 directed ity of Disposable, 00:00: [place] ([place] [address]) 32 Branch gauge x 1/4" Ndle Insulin 2022-0 Yes [id number] Use as [facility] [place], 8-10 directed ity of Disposable, 00:00: [place] ([place] [address]) 32 Branch gauge x 1/4" Ndle Insulin 2022-0 Yes [id number] Use as [facility] [place], 8-10 directed ity of Disposable, 00:00: [place] ([place] [address]) 32 Branch gauge x 1/4" Ndle Insulin 2022-0 Yes [id number] Use as [facility] [place], 8-10 directed ity of Disposable, 00:00: [place] ([place] [address]) 32 Branch gauge x 1/4" Ndle Insulin 2022-0 Yes [id number] Use as [facility] [place], 8-10 directed ity of Disposable, 00:00: [place] ([place] [address]) 32 Branch gauge x 1/4" Ndle Insulin 2022-0 Yes [id number] Use as [facility] [place], 8-10 directed ity of Disposable, 00:00: [place] ([place] [address]) 32 Branch gauge x 1/4" Ndle Insulin 2022-0 Yes [id number] Use as [facility] [place], 8-10 directed ity of Disposable, 00:00: [place] ([place] [address]) 32 Branch gauge x 1/4" Ndle Insulin 202-0 Yes [id number] Use as [facility] [place], 8-10 directed ity of Disposable, 00:00: [place] ([place] [address]) 32 Branch gauge x 1/4" Ndle Insulin 2022-0 Yes [id number] Use as [facility] [place], 8-10 directed ity of Disposable, 00:00: [place] ([place] [address]) 32 Branch gauge x 1/4" Ndle Insulin 2022-0 Yes [id number] Use as [facility] [place], 8-10 directed ity of Disposable, 00:00: [place] ([place] [address]) 32 Branch gauge x 1/4" Ndle Insulin 2022-0 Yes [id number] Use as [facility] [place], 8-10 directed ity of Disposable, 00:00: [place] ([place] [address]) 32 Branch gauge x 1/4" Ndle Insulin 2022-0 Yes [id number] Use as [facility] [place], 8-10 directed ity of Disposable, 00:00: [place] ([place] [address]) 32 Branch gauge x 1/4" Ndle Insulin 2022-0 Yes [id number] Use as [facility] [place], 8-10 directed ity of Disposable, 00:00: [place] ([place] [address]) 32 Branch gauge x 1/4" Ndle Insulin 2022-0 Yes [id number] Use as [facility] [place], 8-10 directed ity of Disposable, 00:00: [place] (NOVOFINE 00 Medical 32) 32 Branch gauge x 1/4" Ndle Insulin 2021-0 Yes [id number] Use as [facility] [place], 8-10 directed ity of Disposable, 00:00: [place] (NOVOFINE 00 Medical 32) 32 Branch gauge x 1/4" Ndle Insulin 2021-0 Yes [id number] Use as [facility] [place], 8-10 directed ity of Disposable, 00:00: [place] ([place] [address]) 32 Branch gauge x 1/4" Ndle Insulin 2021-0 Yes [id number] Use as [facility] [place], 8-10 directed ity of Disposable, 00:00: [place] ([place] [address]) 32 Branch gauge x 1/4" Ndle Insulin 2021-0 Yes [id number] Use as [facility] [place], 8-10 directed ity of Disposable, 00:00: [place] ([place] [address]) 32 Branch gauge x 1/4" Ndle Insulin 2021-0 Yes [id number] Use as [facility] [place], 8-10 directed ity of Disposable, 00:00: [place] ([place] [address]) 32 Branch gauge x 1/4" Ndle Insulin 2021-0 2023- No [id number] Use as [facility] [place], 8- 03-20 directed ity of Disposable, 00:00: 00:00 [place] ([place] 00 :00 [place] [address]) 32 Branch gauge x 1/4" Ndle LORazepam 2021-2021- No [id number] 1mg Take 1 U nivers (ATIVAN) 1 01-15 tablet by ity of mg tablet 00:00: 00:[place] 00 :[place] (two) Medical times Branch daily as needed for Anxiety or Agitation. LORazepam 2021- No [id number] 1mg Take 1 [facility] n[facility] (ATIVAN) 1 01-15 tablet by ity of mg tablet 00:00: 00:[place] 00 :[place] (two) Medical times Branch daily as needed for Anxiety or Agitation. famotidine 0 2- No [id number] 40mg Take 1 [facility] (PEPCID) 40 01-08 tablet by it y of mg tablet 00:00: 00:00 mouth in [place] 00 :00 the Medical morning. Branch famotidine 2021- No [id number] 40mg Take 1 [facility] (PEPCID) 40 01-08 tablet by it y of mg tablet 00:00: 00:00 mouth in [place] 00 :00 the Medical morning. Branch lamoTRIgine 2021-0 Yes [id number] 200mg Take 2 [facility] 100 mg 6-17 tablets by ity of tablet 00:00: mouth [place] 00 daily. Medical Branch prazosin 1 0 Yes [id number] 1mg Take 1 [facility] nivers mg capsule 6-17 capsule by ity of 00:00: mouth at [place] bedtime. Medical Branch lamoTRIgine 0 Yes [id number] 200mg Take 2 [facility] 100 mg 6-17 tablets by ity of tablet 00:00: mouth [place] 00 daily. Medical Branch prazosin 1 0 Yes [id number] 1mg Take 1 U nivers mg capsule 6-17 capsule by ity of 00:00: mouth at [place] bedtime. Medical Branch lamoTRIgine 0 Yes [id number] 200mg Take 2 [facility] 100 mg 6-17 tablets by ity of tablet 00:00: mouth [place] 00 daily. Medical Branch prazosin 1 0 Yes [id number] 1mg Take 1 U nivers mg capsule 6-17 capsule by ity of 00:00: mouth at [place] [address] bedtime. Medical Branch lamoTRIgine 0 Yes [id number] 200mg Take 2 [facility] 100 mg 6-17 tablets by ity of tablet 00:00: mouth [place] 00 daily. Medical Branch prazosin 1 0 Yes [id number] 1mg Take 1 [facility] nivers mg capsule 6-17 capsule by ity of 00:00: mouth at [place] [address] bedtime. Medical Branch lamoTRIgine 0 Yes [id number] 200mg Take 2 [facility] 100 mg 6-17 tablets by ity of tablet 00:00: mouth [place] 00 daily. Medical Branch prazosin 1 0 Yes [id number] 1mg Take 1 U nivers mg capsule 6-17 capsule by ity of 00:00: mouth at [place] [address] bedtime. Medical Branch lamoTRIgine 2021-0 Yes [id number] 200mg Take 2 [facility] 100 mg 6-17 tablets by ity of tablet 00:00: mouth [place] 00 daily. Medical Branch prazosin 1 Yes [id number] 1mg Take 1 U nivers mg capsule 6-17 capsule by ity of 00:00: mouth at [place] 00 bedtime. Medical Branch lamoTRIgine 2021- No [id number] 200mg Take 2 [facility] 100 mg 6-17 10-10 tablets by ity of tablet 00:00: 00:00 mouth [place] 00 :00 daily. Medical Branch prazosin 1 2021- No [id number] 1mg Take 1 [facility] mg capsule 6-17 10-10 capsule by it y of 00:00: 00:00 mouth at [place] 00 :00 bedtime. Medical Branch hydrOXYzine 2021- No [id number] 25mg Take 1 [facility] 25 mg 6-17 08-19 tablet by ity of tablet 00:00: 00:00 mouth at [place] 00 :00 bedtime as Medical needed for Branch Anxiety or Other (insomnia) . hydrOXYzine 2021- No [id number] 25mg Take 1 [facility] 25 mg 6-17 08-19 tablet by ity of tablet 00:00: 00:00 mouth at [place] 00 :00 bedtime as Medical needed for Branch Anxiety or Other (insomnia) . metoprolol Yes [id number] 50mg Take 1 U nivers [place]inate 5-06 tablet by ity o f XL 50 mg 24 00:00: mouth [place] hr tablet 00 daily. Medical Branch metoprolol Yes [id number] 50mg Take 1 U nivers succinate 5-06 tablet by ity o f XL 50 mg 24 00:00: mouth [place] hr tablet 00 daily. Medical Branch metoprolol Yes [id number] 50mg Take 1 U nivers succinate 5-06 tablet by ity o f XL 50 mg 24 00:00: mouth [place] hr tablet 00 daily. Medical Branch metoprolol Yes [id number] 50mg Take 1 U nivers succinate 5-06 tablet by ity o f XL 50 mg 24 00:00: mouth [place] hr tablet 00 daily. Medical Branch metoprolol Yes [id number] 50mg Take 1 U nivers succinate 5-06 tablet by ity o f XL 50 mg 24 00:00: mouth [place] hr tablet 00 daily. Medical Branch metoprolol Yes [id number] 50mg Take 1 U nivers succinate 5-06 tablet by ity o f XL 50 mg 24 00:00: mouth [place] hr tablet 00 daily. Medical Branch metoprolol Yes [id number] 50mg Take 1 U nivers succinate 5-06 tablet by ity o f XL 50 mg 24 00:00: mouth [place] hr tablet 00 daily. Medical Branch metoprolol Yes [id number] 50mg Take 1 U nivers succinate 5-06 tablet by ity o f XL 50 mg 24 00:00: mouth [place] hr tablet 00 daily. Medical Branch metoprolol Yes [id number] 50mg Take 1 U nivers succinate 5-06 tablet by ity o f XL 50 mg 24 00:00: mouth [place] hr tablet 00 daily. Medical Branch metoprolol Yes [id number] 50mg Take 1 U nivers succinate 5-06 tablet by ity o f XL 50 mg 24 00:00: mouth [place] hr tablet 00 daily. Medical Branch metoprolol Yes [id number] 50mg Take 1 U nivers succinate 5-06 tablet by ity o f XL 50 mg 24 00:00: mouth [place] hr tablet 00 daily. Medical Branch metoprolol Yes [id number] 50mg Take 1 U nivers succinate 5-06 tablet by ity o f XL 50 mg 24 00:00: mouth [place] hr tablet 00 daily. Medical Branch metoprolol Yes [id number] 50mg Take 1 U nivers succinate 5-06 tablet by ity o f XL 50 mg 24 00:00: mouth [place] hr tablet 00 daily. Medical Branch metoprolol Yes [id number] 50mg Take 1 U nivers succinate 5-06 tablet by ity o f XL 50 mg 24 00:00: mouth [place] hr tablet 00 daily. Medical Branch metoprolol Yes [id number] 50mg Take 1 U nivers succinate 5-06 tablet by ity o f XL 50 mg 24 00:00: mouth [place] hr tablet 00 daily. Medical Branch metoprolol Yes [id number] 50mg Take 1 U nivers succinate 5-06 tablet by ity o f XL 50 mg 24 00:00: mouth [place] hr tablet 00 daily. Medical Branch metoprolol Yes [id number] 50mg Take 1 U nivers succinate 5-06 tablet by ity o f XL 50 mg 24 00:00: mouth [place] hr tablet 00 daily. Medical Branch metoprolol Yes [id number] 50mg Take 1 U nivers succinate 5-06 tablet by ity o f XL 50 mg 24 00:00: mouth [place] hr tablet 00 daily. Medical Branch metoprolol Yes [id number] 50mg Take 1 U nivers succinate 5-06 tablet by ity o f XL 50 mg 24 00:00: mouth [place] hr tablet 00 daily. Medical Branch metoprolol Yes [id number] 50mg Take 1 U nivers succinate 5-06 tablet by ity o f XL 50 mg 24 00:00: mouth [place] hr tablet 00 daily. Medical Branch metoprolol Yes [id number] 50mg Take 1 U nivers succinate 5-06 tablet by ity o f XL 50 mg 24 00:00: mouth [place] hr tablet 00 daily. Medical Branch metoprolol Yes [id number] 50mg Take 1 U nivers succinate 5-06 tablet by ity o f XL 50 mg 24 00:00: mouth [place] hr tablet 00 daily. Medical Branch metoprolol Yes [id number] 50mg Take 1 U nivers succinate 5-06 tablet by ity o f XL 50 mg 24 00:00: mouth [place] hr tablet 00 daily. Medical Branch metoprolol Yes [id number] 50mg Take 1 U nivers succinate 5-06 tablet by ity o f XL 50 mg 24 00:00: mouth [place] hr tablet 00 daily. Medical Branch metoprolol Yes [id number] 50mg Take 1 U nivers succinate 5-06 tablet by ity o f XL 50 mg 24 00:00: mouth [place] hr tablet 00 daily. Medical Branch metoprolol Yes [id number] 50mg Take 1 U nivers succinate 5-06 tablet by ity o f XL 50 mg 24 00:00: mouth [place] hr tablet 00 daily. Medical Branch metoprolol Yes [id number] 50mg Take 1 U nivers succinate 5-06 tablet by ity o f XL 50 mg 24 00:00: mouth [place] hr tablet 00 daily. Medical Branch metoprolol 2022-0 Yes [id number] 50mg Take 1 U nivers succinate 5-06 tablet by ity o f XL 50 mg 24 00:00: mouth [place] hr tablet 00 daily. Medical Branch metoprolol Yes [id number] 50mg Take 1 U nivers succinate 5-06 tablet by ity o f XL 50 mg 24 00:00: mouth [place] hr tablet 00 daily. Medical Branch metoprolol Yes [id number] 50mg Take 1 U nivers succinate 5-06 tablet by ity o f XL 50 mg 24 00:00: mouth [place] hr tablet 00 daily. Medical Branch metoprolol Yes [id number] 50mg Take 1 U nivers succinate 5-06 tablet by ity o f XL 50 mg 24 00:00: mouth [place] hr tablet 00 daily. Medical Branch metoprolol Yes [id number] 50mg Take 1 U nivers succinate 5-06 tablet by ity o f XL 50 mg 24 00:00: mouth [place] hr tablet 00 daily. Medical Branch metoprolol Yes [id number] 50mg Take 1 U nivers succinate 5-06 tablet by ity o f XL 50 mg 24 00:00: mouth [place] hr tablet 00 daily. Medical Branch metoprolol Yes [id number] 50mg Take 1 U nivers succinate 5-06 tablet by ity o f XL 50 mg 24 00:00: mouth [place] hr tablet 00 daily. Medical Branch metoprolol Yes [id number] 50mg Take 1 U nivers succinate 5-06 tablet by ity o f XL 50 mg 24 00:00: mouth [place] hr tablet 00 daily. Medical Branch metoprolol Yes [id number] 50mg Take 1 U nivers succinate 5-06 tablet by ity o f XL 50 mg 24 00:00: mouth [place] hr tablet 00 daily. Medical Branch metoprolol Yes [id number] 50mg Take 1 U nivers succinate 5-06 tablet by ity o f XL 50 mg 24 00:00: mouth [place] hr tablet 00 daily. Medical Branch metoprolol Yes [id number] 50mg Take 1 U nivers succinate 5-06 tablet by ity o f XL 50 mg 24 00:00: mouth [place] hr tablet 00 daily. Medical Branch metoprolol Yes [id number] 50mg Take 1 U nivers succinate 10-11 tablet by ity o f XL 50 mg 24 00:00: mouth [place] hr tablet 00 daily. [facility] metoprolol 2022- No [id number] 50mg Take 1 [facility] succinate 10-11- tablet by ity of XL 50 mg 24 00:00: 00:[place] hr tablet 00 :00 daily. [facility] metoprolol 2022- No [id number] 50mg Take 1 [facility] succinate 10-11 tablet by ity of XL 50 mg 24 00:00: 00:00 mouth [place] hr tablet 00 :00 daily. [facility] metoprolol 2022- No [id number] 50mg Take 1 [facility] succinate 10-11 tablet by ity of XL 50 mg 24 00:00: 00:00 mouth [place] hr tablet 00 :00 daily. [facility] Insulin Yes [id number] Use to Uni vers Syringe-Nee 3-02 inject ity of dle U-100 1 00:00: insulin 4X [place] mL 31 gauge 00 daily. Medica l x 5/16 Syrg DX:[email or web address] [facility] Insulin Yes [id number] Use to Uni vers Syringe-Nee 3-02 inject ity of dle U-100 1 00:00: insulin 4X [place] mL 31 gauge 00 daily. Medica l x 5/16 Syrg DX:[email or web address] [facility] Insulin Yes [id number] Use to Uni vers Syringe-Nee 3-02 inject ity of dle U-100 1 00:00: insulin 4X [place] mL 31 gauge 00 daily. Medica l x 5/16 Syrg DX:[email or web address] [facility] Insulin Yes [id number] Use to Uni vers Syringe-Nee 3-02 inject ity of dle U-100 1 00:00: insulin 4X [place] mL 31 gauge 00 daily. Medica l x 5/16 Syrg DX:[email or web address] [facility] Insulin Yes [id number] Use to Uni vers Syringe-Nee 3-02 inject ity of dle U-100 1 00:00: insulin 4X [place] mL 31 gauge 00 daily. Medica l x 5/16 Syrg DX:[email or web address] [facility] Insulin Yes [id number] Use to Uni vers Syringe-Nee 3-02 inject ity of dle U-100 1 00:00: insulin 4X [place] mL 31 gauge 00 daily. Medica l x 5/16 Syrg DX:[email or web address] [facility] Insulin Yes [id number] Use to Uni vers Syringe-Nee 3-02 inject ity of dle U-100 1 00:00: insulin 4X [place] mL 31 gauge 00 daily. Medica l x 5/16 Syrg DX:[email or web address] [facility] Insulin Yes [id number] Use to Uni vers Syringe-Nee 3-02 inject ity of dle U-100 1 00:00: insulin 4X [place] mL 31 gauge 00 daily. Medica l x 5/16 Syrg DX:[email or web address] [facility] Insulin Yes [id number] Use to Uni vers Syringe-Nee 3-02 inject ity of dle U-100 1 00:00: insulin 4X [place] mL 31 gauge 00 daily. Medica l x 5/16 Syrg DX:[email or web address] [facility] Insulin Yes [id number] Use to Uni vers Syringe-Nee 3-02 inject ity of dle U-100 1 00:00: insulin 4X [place] mL 31 gauge 00 daily. Medica l x 5/16 Syrg DX:[email or web address] [facility] Insulin Yes [id number] Use to Uni vers Syringe-Nee 3-02 inject ity of dle U-100 1 00:00: insulin 4X [place] mL 31 gauge 00 daily. Medica l x 5/16 Syrg DX:[email or web address] [facility] Insulin Yes [id number] Use to Uni vers Syringe-Nee 3-02 inject ity of dle U-100 1 00:00: insulin 4X [place] mL 31 gauge 00 daily. Medica l x 5/16 Syrg DX:[email or web address] [facility] Insulin 0 Yes [id number] Use to Uni vers Syringe-Nee 3-02 inject ity of dle U-100 1 00:00: insulin 4X [place] mL 31 gauge 00 daily. Medica l x 5/16 Syrg DX:[email or web address] [facility] Insulin Yes [id number] Use to Uni vers Syringe-Nee 3-02 inject ity of dle U-100 1 00:00: insulin 4X [place] mL 31 gauge 00 daily. Medica l x 5/16 Syrg DX:[email or web address] [facility] Insulin Yes [id number] Use to Uni vers Syringe-Nee 3-02 inject ity of dle U-100 1 00:00: insulin 4X [place] mL 31 gauge 00 daily. Medica l x 5/16 Syrg DX:[email or web address] [facility] Insulin Yes [id number] Use to Uni vers Syringe-Nee 3-02 inject ity of dle U-100 1 00:00: insulin 4X [place] mL 31 gauge 00 daily. Medica l x 5/16 Syrg DX:[email or web address] [facility] Insulin Yes [id number] Use to Uni vers Syringe-Nee 3-02 inject ity of dle U-100 1 00:00: insulin 4X [place] mL 31 gauge 00 daily. Medica l x 5/16 Syrg DX:[email or web address] [facility] Insulin Yes [id number] Use to Uni vers Syringe-Nee 3-02 inject ity of dle U-100 1 00:00: insulin 4X [place] mL 31 gauge 00 daily. Medica l x 516 Syrg DX:[email or web address] [facility] Insulin Yes [id number] Use to Uni vers Syringe-Nee 3-02 inject ity of dle U-100 1 00:00: insulin 4X [place] mL 31 gauge 00 daily. Medica l x 5/16 Syrg DX:[email or web address] [facility] Insulin Yes [id number] Use to Uni vers Syringe-Nee 3-02 inject ity of dle U-100 1 00:00: insulin 4X [place] mL 31 gauge 00 daily. Medica l x 5/16 Syrg DX:[email or web address] [facility] Insulin 0 2021- No [id number] Use to Un kendra Syringe-Nee 3-02 11-23 inject ity o f dle U-100 1 00:00: 00:00 insulin 4X [place] mL 31 gauge 00 :00 daily. Medica l x 10/21 Syrg DX:[email or web address] [facility] Insulin 2021- No [id number] Use to Un kendra Syringe-Nee 08-07 inject ity o f dle U-100 1 00:00: 00:00 insulin 4X [place] mL 31 gauge 00 :00 daily. Medica l x 16 Syrg DX:[email or web address] [facility] insulin Yes [id number] 160 to Uni vers aspart 2-09 200, 1 u, ity of U-100 00:00: 201 to [place] (NOVOLOG 00 240, 2 u. Medica l FLEXPEN BG 241 to Branch U-100 280, 3 INSULIN) unit. BG 100 unit/mL 281 to (3 mL) 300, 4 injection units. BG > 300, 5 units, recheck in 3 hours and cover with s/s insulin Yes [id number] inject 20 [facility] glargine 2-09 Units ity of (LANTUS 00:00: under the [place] U-100 00 skin twice Medical INSULIN) a day. Branch 100 unit/mL injection insulin Yes [id number] 160 to Uni vers aspart 2-09 200, 1 u, ity of U-100 00:00: 201 to [place] (NOVOLOG 00 240, 2 u. Medica l FLEXPEN BG 241 to Branch U-100 280, 3 INSULIN) unit. BG 100 unit/mL 281 to (3 mL) 300, 4 injection units. BG > 300, 5 units, recheck in 3 hours and cover with s/s insulin Yes [id number] inject 20 [facility] glargine 2-09 Units ity of (LANTUS 00:00: under the [place] U-100 00 skin twice Medical INSULIN) a day. Branch 100 unit/mL injection insulin Yes [id number] 160 to Uni vers aspart 2-09 200, 1 u, ity of U-100 00:00: 201 to [place] (NOVOLOG 00 240, 2 u. Medica l FLEXPEN BG 241 to Branch U-100 280, 3 INSULIN) unit. BG 100 unit/mL 281 to (3 mL) 300, 4 injection units. BG > 300, 5 units, recheck in 3 hours and cover with s/s insulin 0 Yes [id number] inject 20 [facility] glargine 2-09 Units ity of (LANTUS 00:00: under the [place] U-100 00 skin twice Medical INSULIN) a day. Branch 100 unit/mL injection insulin Yes [id number] 160 to Uni vers aspart 2-09 200, 1 u, ity of U-100 00:00: 201 to [place] (NOVOLOG 00 240, 2 u. Medica l FLEXPEN BG 241 to Branch U-100 280, 3 INSULIN) unit. BG 100 unit/mL 281 to (3 mL) 300, 4 injection units. BG > 300, 5 units, recheck in 3 hours and cover with s/s insulin Yes [id number] inject 20 [facility] glargine 2-09 Units ity of (LANTUS 00:00: under the [place] U-100 00 skin twice Medical INSULIN) a day. Branch 100 unit/mL injection insulin Yes [id number] 160 to [facility] aspart 2-09 200, 1 u, ity of U-100 00:00: 201 to [place] (NOVOLOG 00 240, 2 u. Medica l FLEXPEN BG 241 to Branch U-100 280, 3 INSULIN) unit. BG 100 unit/mL 281 to (3 mL) 300, 4 injection units. BG > 300, 5 units, recheck in 3 hours and cover with s/s insulin Yes [id number] inject 20 [facility] glargine 2-09 Units ity of (LANTUS 00:00: under the [place] U-100 00 skin twice Medical INSULIN) a day. Branch 100 unit/mL injection insulin Yes [id number] 160 to [facility] vers aspart 2-09 200, 1 u, ity of U-100 00:00: 201 to [place] (NOVOLOG 00 240, 2 u. Medica l FLEXPEN BG 241 to Branch U-100 280, 3 INSULIN) unit. BG 100 unit/mL 281 to (3 mL) 300, 4 injection units. BG > 300, 5 units, recheck in 3 hours and cover with s/s insulin Yes [id number] inject 20 [facility] glargine 2-09 Units ity of (LANTUS 00:00: under the [place] U-100 00 skin twice Medical INSULIN) a day. Branch 100 unit/mL injection insulin 0 Yes [id number] 160 to [facility] vers aspart 2-09 200, 1 u, ity of U-100 00:00: 201 to [place] (NOVOLOG 00 240, 2 u. Medica l FLEXPEN BG 241 to Branch U-100 280, 3 INSULIN) unit. BG 100 unit/mL 281 to (3 mL) 300, 4 injection units. BG > 300, 5 units, recheck in 3 hours and cover with s/s insulin 2021-0 Yes [id number] inject 20 [facility] glargine 2-09 Units ity of (LANTUS 00:00: under the [place] U-100 00 skin twice Medical INSULIN) a day. Branch 100 unit/mL injection insulin Yes [id number] 160 to [facility] vers aspart 2-09 200, 1 u, ity of U-100 00:00: 201 to [place] (NOVOLOG 00 240, 2 u. Medica l FLEXPEN BG 241 to Branch U-100 280, 3 INSULIN) unit. BG 100 unit/mL 281 to (3 mL) 300, 4 injection units. BG > 300, 5 units, recheck in 3 hours and cover with s/s insulin Yes [id number] inject 20 [facility] glargine 2-09 Units ity of (LANTUS 00:00: under the [place] U-100 00 skin twice Medical INSULIN) a day. Branch 100 unit/mL injection insulin Yes [id number] 160 to [facility] vers aspart 2-09 200, 1 u, ity of U-100 00:00: 201 to [place] (NOVOLOG 00 240, 2 u. Medica l FLEXPEN BG 241 to Branch U-100 280, 3 INSULIN) unit. BG 100 unit/mL 281 to (3 mL) 300, 4 injection units. BG > 300, 5 units, recheck in 3 hours and cover with s/s insulin 0 Yes [id number] inject 20 [facility] glargine 2-09 Units ity of (LANTUS 00:00: under the [place] U-100 00 skin twice Medical INSULIN) a day. Branch 100 unit/mL injection insulin Yes [id number] 160 to [facility] vers aspart 2-09 200, 1 u, ity of U-100 00:00: 201 to [place] (NOVOLOG 00 240, 2 u. Medica l FLEXPEN BG 241 to Branch U-100 280, 3 INSULIN) unit. BG 100 unit/mL 281 to (3 mL) 300, 4 injection units. BG > 300, 5 units, recheck in 3 hours and cover with s/s insulin 202-0 Yes [id number] inject 20 [facility] glargine 2-09 Units ity of (LANTUS 00:00: under the [place] U-100 00 skin twice Medical INSULIN) a day. Branch 100 unit/mL injection insulin Yes [id number] 160 to [facility] vers aspart 2-09 200, 1 u, ity of U-100 00:00: 201 to [place] (NOVOLOG 00 240, 2 u. Medica l FLEXPEN BG 241 to Branch U-100 280, 3 INSULIN) unit. BG 100 unit/mL 281 to (3 mL) 300, 4 injection units. BG > 300, 5 units, recheck in 3 hours and cover with s/s insulin 0 Yes [id number] inject 20 [facility] glargine 2-09 Units ity of ([place]ANTUS 00:00: under the [place] U-100 00 skin twice Medical INSULIN) a day. Branch 100 unit/mL injection insulin Yes [id number] 160 to [facility] vers aspart 2-09 200, 1 u, ity of U-100 00:00: 201 to [place] (NOVOLOG 00 240, 2 u. Medica l FLEXPEN BG 241 to Branch U-100 280, 3 INSULIN) unit. BG 100 unit/mL 281 to (3 mL) 300, 4 injection units. BG > 300, 5 units, recheck in 3 hours and cover with s/s insulin 2021-0 Yes [id number] inject 20 [facility] glargine 2-09 Units ity of ([place]US 00:00: under the [place] U-100 00 skin twice Medical INSULIN) a day. Branch 100 unit/mL injection insulin 0 Yes [id number] 160 to [facility] vers aspart 2-09 200, 1 u, ity of U-100 00:00: 201 to [place] (NOVOLOG 00 240, 2 u. Medica l FLEXPEN BG 241 to Branch U-100 280, 3 INSULIN) unit. BG 100 unit/mL 281 to (3 mL) 300, 4 injection units. BG > 300, 5 units, recheck in 3 hours and cover with s/s insulin 2022-0 Yes [id number] 160 to [facility] vers aspart 2-09 200, 1 u, ity of U-100 00:00: 201 to [place] (NOVOLOG 00 240, 2 u. Medica l FLEXPEN BG 241 to Branch U-100 280, 3 INSULIN) unit. BG 100 unit/mL 281 to (3 mL) 300, 4 injection units. BG > 300, 5 units, recheck in 3 hours and cover with s/s insulin 2021-0 Yes [id number] 160 to [facility] vers aspart 2-09 200, 1 u, ity of U-100 00:00: 201 to [place] (NOVOLOG 00 240, 2 u. Medica l FLEXPEN BG 241 to Branch U-100 280, 3 INSULIN) unit. BG 100 unit/mL 281 to (3 mL) 300, 4 injection units. BG > 300, 5 units, recheck in 3 hours and cover with s/s insulin 2021-0 Yes [id number] 160 to [facility] vers aspart 2-09 200, 1 u, ity of U-100 00:00: 201 to [place] (NOVOLOG 00 240, 2 u. Medica l FLEXPEN BG 241 to Branch U-100 280, 3 INSULIN) unit. BG 100 unit/mL 281 to (3 mL) 300, 4 injection units. BG > 300, 5 units, recheck in 3 hours and cover with s/s insulin 2021-0 Yes [id number] 160 to [facility] vers aspart 2-09 200, 1 u, ity of U-100 00:00: 201 to [place] (NOVOLOG 00 240, 2 u. Medica l FLEXPEN BG 241 to Branch U-100 280, 3 INSULIN) unit. BG 100 unit/mL 281 to (3 mL) 300, 4 injection units. BG > 300, 5 units, recheck in 3 hours and cover with s/s insulin 202-0 Yes [id number] 160 to [facility] vers aspart 2-09 200, 1 u, ity of U-100 00:00: 201 to [place] (NOVOLOG 00 240, 2 u. Medica l FLEXPEN BG 241 to Branch U-100 280, 3 INSULIN) unit. BG 100 unit/mL 281 to (3 mL) 300, 4 injection units. BG > 300, 5 units, recheck in 3 hours and cover with s/s insulin 202-0 Yes [id number] 160 to [facility] vers aspart 2-09 200, 1 u, ity of U-100 00:00: 201 to [place] (NOVOLOG 00 240, 2 u. Medica l FLEXPEN BG 241 to Branch U-100 280, 3 INSULIN) unit. BG 100 unit/mL 281 to (3 mL) 300, 4 injection units. BG > 300, 5 units, recheck in 3 hours and cover with s/s insulin 2022-0 Yes [id number] 160 to [facility] vers aspart 2-09 200, 1 u, ity of U-100 00:00: 201 to [place] (NOVOLOG 00 240, 2 u. Medica l FLEXPEN BG 241 to Branch U-100 280, 3 INSULIN) unit. BG 100 unit/mL 281 to (3 mL) 300, 4 injection units. BG > 300, 5 units, recheck in 3 hours and cover with s/s insulin 2021-0 Yes [id number] 160 to [facility] vers aspart 2-09 200, 1 u, ity of U-100 00:00: 201 to [place] (NOVOLOG 00 240, 2 u. Medica l FLEXPEN BG 241 to Branch U-100 280, 3 INSULIN) unit. BG 100 unit/mL 281 to (3 mL) 300, 4 injection units. BG > 300, 5 units, recheck in 3 hours and cover with s/s insulin 2021-0 Yes [id number] 160 to [facility] aspart 2-09 200, 1 u, ity of U-100 00:00: 201 to [place] (NOVOLOG 00 240, 2 u. Medica l FLEXPEN BG 241 to Branch U-100 280, 3 INSULIN) unit. BG 100 unit/mL 281 to (3 mL) 300, 4 injection units. BG > 300, 5 units, recheck in 3 hours and cover with s/s insulin 2022-0 Yes [id number] 160 to [facility] aspart 2-09 200, 1 u, ity of U-100 00:00: 201 to [place] (NOVOLOG 00 240, 2 u. Medica l FLEXPEN BG 241 to Branch U-100 280, 3 INSULIN) unit. BG 100 unit/mL 281 to (3 mL) 300, 4 injection units. BG > 300, 5 units, recheck in 3 hours and cover with s/s insulin 202-0 Yes [id number] 160 to [facility] aspart 2-09 200, 1 u, ity of U-100 00:00: 201 to [place] (NOVOLOG 00 240, 2 u. Medica l FLEXPEN BG 241 to Branch U-100 280, 3 INSULIN) unit. BG 100 unit/mL 281 to (3 mL) 300, 4 injection units. BG > 300, 5 units, recheck in 3 hours and cover with s/s insulin 202-0 Yes [id number] 160 to [facility] aspart 2-09 200, 1 u, ity of U-100 00:00: 201 to [place] (NOVOLOG 00 240, 2 u. Medica l FLEXPEN BG 241 to Branch U-100 280, 3 INSULIN) unit. BG 100 unit/mL 281 to (3 mL) 300, 4 injection units. BG > 300, 5 units, recheck in 3 hours and cover with s/s insulin 2021-0 Yes [id number] 160 to [facility] aspart 2-09 200, 1 u, ity of U-100 00:00: 201 to [place] (NOVOLOG 00 240, 2 u. Medica l FLEXPEN BG 241 to Branch U-100 280, 3 INSULIN) unit. BG 100 unit/mL 281 to (3 mL) 300, 4 injection units. BG > 300, 5 units, recheck in 3 hours and cover with s/s insulin 2021-0 Yes [id number] 160 to [facility] aspart 2-09 200, 1 u, ity of U-100 00:00: 201 to [place] (NOVOLOG 00 240, 2 u. Medica l FLEXPEN BG 241 to Branch U-100 280, 3 INSULIN) unit. BG 100 unit/mL 281 to (3 mL) 300, 4 injection units. BG > 300, 5 units, recheck in 3 hours and cover with s/s insulin 2022-0 Yes [id number] 160 to [facility] vers aspart 2-09 200, 1 u, ity of U-100 00:00: 201 to [place] (NOVOLOG 00 240, 2 u. Medica l FLEXPEN BG 241 to Branch U-100 280, 3 INSULIN) unit. BG 100 unit/mL 281 to (3 mL) 300, 4 injection units. BG > 300, 5 units, recheck in 3 hours and cover with s/s insulin 2021-0 Yes [id number] 160 to [facility] aspart 2-09 200, 1 u, ity of U-100 00:00: 201 to [place] (NOVOLOG 00 240, 2 u. Medica l FLEXPEN BG 241 to Branch U-100 280, 3 INSULIN) unit. BG 100 unit/mL 281 to (3 mL) 300, 4 injection units. BG > 300, 5 units, recheck in 3 hours and cover with s/s insulin 2021-0 Yes [id number] 160 to [facility] vers aspart 2-09 200, 1 u, ity of U-100 00:00: 201 to [place] (NOVOLOG 00 240, 2 u. Medica l FLEXPEN BG 241 to Branch U-100 280, 3 INSULIN) unit. BG 100 unit/mL 281 to (3 mL) 300, 4 injection units. BG > 300, 5 units, recheck in 3 hours and cover with s/s insulin 2021-0 Yes [id number] 160 to [facility] aspart 2-09 200, 1 u, ity of U-100 00:00: 201 to [place] (NOVOLOG 00 240, 2 u. Medica l FLEXPEN BG 241 to Branch U-100 280, 3 INSULIN) unit. BG 100 unit/mL 281 to (3 mL) 300, 4 injection units. BG > 300, 5 units, recheck in 3 hours and cover with s/s insulin 2021-0 Yes [id number] 160 to [facility] aspart 2-09 200, 1 u, ity of U-100 00:00: 201 to [place] (NOVOLOG 00 240, 2 u. Medica l FLEXPEN BG 241 to Branch U-100 280, 3 INSULIN) unit. BG 100 unit/mL 281 to (3 mL) 300, 4 injection units. BG > 300, 5 units, recheck in 3 hours and cover with s/s insulin 2021-0 Yes [id number] 160 to [facility] aspart 2-09 200, 1 u, ity of U-100 00:00: 201 to [place] (NOVOLOG 00 240, 2 u. Medica l FLEXPEN BG 241 to Branch U-100 280, 3 INSULIN) unit. BG 100 unit/mL 281 to (3 mL) 300, 4 injection units. BG > 300, 5 units, recheck in 3 hours and cover with s/s insulin 2022-0 Yes [id number] 160 to [facility] aspart 2-09 200, 1 u, ity of U-100 00:00: 201 to [place] (NOVOLOG 00 240, 2 u. Medica l FLEXPEN BG 241 to Branch U-100 280, 3 INSULIN) unit. BG 100 unit/mL 281 to (3 mL) 300, 4 injection units. BG > 300, 5 units, recheck in 3 hours and cover with s/s insulin 202-0 Yes [id number] 160 to [facility] vers aspart 2-09 200, 1 u, ity of U-100 00:00: 201 to [place] (NOVOLOG 00 240, 2 u. Medica l FLEXPEN BG 241 to Branch U-100 280, 3 INSULIN) unit. BG 100 unit/mL 281 to (3 mL) 300, 4 injection units. BG > 300, 5 units, recheck in 3 hours and cover with s/s insulin 2021-0 Yes [id number] 160 to [facility] aspart 2-09 200, 1 u, ity of U-100 00:00: 201 to [place] (NOVOLOG 00 240, 2 u. Medica l FLEXPEN BG 241 to Branch U-100 280, 3 INSULIN) unit. BG 100 unit/mL 281 to (3 mL) 300, 4 injection units. BG > 300, 5 units, recheck in 3 hours and cover with s/s insulin 2021-0 Yes [id number] 160 to [facility] vers aspart 2-09 200, 1 u, ity of U-100 00:00: 201 to [place] (NOVOLOG 00 240, 2 u. Medica l FLEXPEN BG 241 to Branch U-100 280, 3 INSULIN) unit. BG 100 unit/mL 281 to (3 mL) 300, 4 injection units. BG > 300, 5 units, recheck in 3 hours and cover with s/s insulin 202-0 Yes [id number] 160 to [facility] aspart 2-09 200, 1 u, ity of U-100 00:00: 201 to [place] (NOVOLOG 00 240, 2 u. Medica l FLEXPEN BG 241 to Branch U-100 280, 3 INSULIN) unit. BG 100 unit/mL 281 to (3 mL) 300, 4 injection units. BG > 300, 5 units, recheck in 3 hours and cover with s/s insulin 2021-0 Yes [id number] 160 to [facility] vers aspart 2-09 200, 1 u, ity of U-100 00:00: 201 to [place] (NOVOLOG 00 240, 2 u. Medica l FLEXPEN BG 241 to Branch U-100 280, 3 INSULIN) unit. BG 100 unit/mL 281 to (3 mL) 300, 4 injection units. BG > 300, 5 units, recheck in 3 hours and cover with s/s insulin 0 Yes [id number] 160 to [facility] aspart 2-09 200, 1 u, ity of U-100 00:00: 201 to [place] (NOVOLOG 00 240, 2 u. Medica l FLEXPEN BG 241 to Branch U-100 280, 3 INSULIN) unit. BG 100 unit/mL 281 to (3 mL) 300, 4 injection units. BG > 300, 5 units, recheck in 3 hours and cover with s/s insulin 0 Yes [id number] 160 to [facility] aspart 2-09 200, 1 u, ity of U-100 00:00: 201 to [place] (NOVOLOG 00 240, 2 u. Medica l FLEXPEN BG 241 to Branch U-100 280, 3 INSULIN) unit. BG 100 unit/mL 281 to (3 mL) 300, 4 injection units. BG > 300, 5 units, recheck in 3 hours and cover with s/s insulin 0 Yes [id number] 160 to [facility] aspart 2-09 200, 1 u, ity of U-100 00:00: 201 to [place] (NOVOLOG 00 240, 2 u. Medica l FLEXPEN BG 241 to Branch U-100 280, 3 INSULIN) unit. BG 100 unit/mL 281 to (3 mL) 300, 4 injection units. BG > 300, 5 units, recheck in 3 hours and cover with s/s insulin 0 Yes [id number] 160 to [facility] aspart 2-09 200, 1 u, ity of U-100 00:00: 201 to [place] (NOVOLOG 00 240, 2 u. Medica l FLEXPEN BG 241 to Branch U-100 280, 3 INSULIN) unit. BG 100 unit/mL 281 to (3 mL) 300, 4 injection units. BG > 300, 5 units, recheck in 3 hours and cover with s/s insulin 2021-0 Yes [id number] 160 to [facility] aspart 2-09 200, 1 u, ity of U-100 00:00: 201 to [place] (NOVOLOG 00 240, 2 u. Medica l FLEXPEN BG 241 to Branch U-100 280, 3 INSULIN) unit. BG 100 unit/mL 281 to (3 mL) 300, 4 injection units. BG > 300, 5 units, recheck in 3 hours and cover with s/s insulin 2021-0 Yes [id number] 160 to [facility] aspart 2-09 200, 1 u, ity of U-100 00:00: 201 to [place] (NOVOLOG 00 240, 2 u. Medica l FLEXPEN BG 241 to Branch U-100 280, 3 INSULIN) unit. BG 100 unit/mL 281 to (3 mL) 300, 4 injection units. BG > 300, 5 units, recheck in 3 hours and cover with s/s insulin 2021-0 Yes [id number] 160 to [facility] vers aspart 2-09 200, 1 u, ity of U-100 00:00: 201 to [place] (NOVOLOG 00 240, 2 u. Medica l FLEXPEN BG 241 to Branch U-100 280, 3 INSULIN) unit. BG 100 unit/mL 281 to (3 mL) 300, 4 injection units. BG > 300, 5 units, recheck in 3 hours and cover with s/s insulin 2021-0 Yes [id number] 160 to [facility] vers aspart 2-09 200, 1 u, ity of U-100 00:00: 201 to [place] (NOVOLOG 00 240, 2 u. Medica l FLEXPEN BG 241 to Branch U-100 280, 3 INSULIN) unit. BG 100 unit/mL 281 to (3 mL) 300, 4 injection units. BG > 300, 5 units, recheck in 3 hours and cover with s/s insulin 2021-0 Yes [id number] 160 to [facility] aspart 2-09 200, 1 u, ity of U-100 00:00: 201 to [place] (NOVOLOG 00 240, 2 u. Medica l FLEXPEN BG 241 to Branch U-100 280, 3 INSULIN) unit. BG 100 unit/mL 281 to (3 mL) 300, 4 injection units. BG > 300, 5 units, recheck in 3 hours and cover with s/s insulin 2021-0 Yes [id number] 160 to [facility] aspart 2-09 200, 1 u, ity of U-100 00:00: 201 to [place] (NOVOLOG 00 240, 2 u. Medica l FLEXPEN BG 241 to Branch U-100 280, 3 INSULIN) unit. BG 100 unit/mL 281 to (3 mL) 300, 4 injection units. BG > 300, 5 units, recheck in 3 hours and cover with s/s insulin 2021-0 Yes [id number] 160 to [facility] vers aspart 2-09 200, 1 u, ity of U-100 00:00: 201 to [place] (NOVOLOG 00 240, 2 u. Medica l FLEXPEN BG 241 to Branch U-100 280, 3 INSULIN) unit. BG 100 unit/mL 281 to (3 mL) 300, 4 injection units. BG > 300, 5 units, recheck in 3 hours and cover with s/s insulin 2021-0 Yes [id number] 160 to [facility] vers aspart 2-09 200, 1 u, ity of U-100 00:00: 201 to [place] (NOVOLOG 00 240, 2 u. Medica l FLEXPEN BG 241 to Branch U-100 280, 3 INSULIN) unit. BG 100 unit/mL 281 to (3 mL) 300, 4 injection units. BG > 300, 5 units, recheck in 3 hours and cover with s/s insulin 2021-0 Yes [id number] 160 to [facility] vers aspart 2-09 200, 1 u, ity of U-100 00:00: 201 to [place] (NOVOLOG 00 240, 2 u. Medica l FLEXPEN BG 241 to Branch U-100 280, 3 INSULIN) unit. BG 100 unit/mL 281 to (3 mL) 300, 4 injection units. BG > 300, 5 units, recheck in 3 hours and cover with s/s insulin 2021-0 Yes [id number] 160 to [facility] vers aspart 2-09 200, 1 u, ity of U-100 00:00: 201 to [place] (NOVOLOG 00 240, 2 u. Medica l FLEXPEN BG 241 to Branch U-100 280, 3 INSULIN) unit. BG 100 unit/mL 281 to (3 mL) 300, 4 injection units. BG > 300, 5 units, recheck in 3 hours and cover with s/s insulin 2021-0 Yes [id number] 160 to [facility] aspart 2-09 200, 1 u, ity of U-100 00:00: 201 to [place] (NOVOLOG 00 240, 2 u. Medica l FLEXPEN BG 241 to Branch U-100 280, 3 INSULIN) unit. BG 100 unit/mL 281 to (3 mL) 300, 4 injection units. BG > 300, 5 units, recheck in 3 hours and cover with s/s insulin 202-0 Yes [id number] 160 to [facility] aspart 2-09 200, 1 u, ity of U-100 00:00: 201 to [place] (NOVOLOG 00 240, 2 u. Medica l FLEXPEN BG 241 to Branch U-100 280, 3 INSULIN) unit. BG 100 unit/mL 281 to (3 mL) 300, 4 injection units. BG > 300, 5 units, recheck in 3 hours and cover with s/s insulin 2021-0 Yes [id number] 160 to [facility] aspart 2-09 200, 1 u, ity of U-100 00:00: 201 to [place] (NOVOLOG 00 240, 2 u. Medica l FLEXPEN BG 241 to Branch U-100 280, 3 INSULIN) unit. BG 100 unit/mL 281 to (3 mL) 300, 4 injection units. BG > 300, 5 units, recheck in 3 hours and cover with s/s insulin 2021-0 Yes [id number] 160 to [facility] aspart 2-09 200, 1 u, ity of U-100 00:00: 201 to [place] (NOVOLOG 00 240, 2 u. Medica l FLEXPEN BG 241 to Branch U-100 280, 3 INSULIN) unit. BG 100 unit/mL 281 to (3 mL) 300, 4 injection units. BG > 300, 5 units, recheck in 3 hours and cover with s/s insulin 2022-0 Yes [id number] 160 to [facility] aspart 2-09 200, 1 u, ity of U-100 00:00: 201 to [place] (NOVOLOG 00 240, 2 u. Medica l FLEXPEN BG 241 to Branch U-100 280, 3 INSULIN) unit. BG 100 unit/mL 281 to (3 mL) 300, 4 injection units. BG > 300, 5 units, recheck in 3 hours and cover with s/s insulin 2021-0 Yes [id number] 160 to [facility] aspart 2-09 200, 1 u, ity of U-100 00:00: 201 to [place] (NOVOLOG 00 240, 2 u. Medica l FLEXPEN BG 241 to Branch U-100 280, 3 INSULIN) unit. BG 100 unit/mL 281 to (3 mL) 300, 4 injection units. BG > 300, 5 units, recheck in 3 hours and cover with s/s insulin Yes [id number] 160 to [facility] vers aspart 07-17 200, 1 u, ity of U-100 00:00: 201 to [place] (NOVOLOG 00 240, 2 u. Medica l FLEXPEN BG 241 to Branch U-100 280, 3 INSULIN) unit. BG 100 unit/mL 281 to (3 mL) 300, 4 injection units. BG > 300, 5 units, recheck in 3 hours and cover with s/s insulin 2022- No [id number] 160 to [facility] kendra aspart 07-17 200, 1 u, ity of U-100 00:00: 00:00 201 to [place] (NOVOLOG 00 :00 240, 2 u. Medica l FLEXPEN BG 241 to Branch U-100 280, 3 INSULIN) unit. BG 100 unit/mL 281 to (3 mL) 300, 4 injection units. BG > 300, 5 units, recheck in 3 hours and cover with s/s insulin 2022- No [id number] 160 to [facility] kendra aspart 07-17 200, 1 u, ity of U-100 00:00: 00:00 201 to [place] (NOVOLOG 00 :00 240, 2 u. Medica l FLEXPEN BG 241 to Branch U-100 280, 3 INSULIN) unit. BG 100 unit/mL 281 to (3 mL) 300, 4 injection units. BG > 300, 5 units, recheck in 3 hours and cover with s/s insulin 2021- No [id number] inject 20 [facility] glargine 07-17 10-25 Units ity of ([place] 00:00: [place] U-100 00 :00 skin twice Medical INSULIN) a day. Branch 100 unit/mL injection insulin 2021- No [id number] inject 20 [facility] glargine 07-17 10-25 Units ity of ([place] 00:00: 00:[place] U-100 00 :00 skin twice Medical INSULIN) a day. Branch 100 unit/mL injection insulin 2021- No [id number] inject 20 [facility] glargine 2-09 10-25 Units ity of ([place] 00:00: 00:[place] U-100 00 :00 skin twice Medical INSULIN) a day. Branch 100 unit/mL injection lipase-prot Yes [id number] 1{capsu Take 1 [facility] ease-amylas 2-03 le} capsule by it y of e (CREON) 00:00: mouth 3 [place] 36,000-114, 00 (three) Medic al 000- times Branch 180,000 daily with unit CpDR meals. lipase-prot Yes [id number] 1{capsu Take 1 [facility] ease-amylas 2-03 le} capsule by it y of e (CREON) 00:00: mouth 3 [place] 36,000-114, 00 (three) Medic al 000- times Branch 180,000 daily with unit CpDR meals. lipase-prot Yes [id number] 1{capsu Take 1 [facility] ease-amylas 2-03 le} capsule by it y of e (CREON) 00:00: mouth 3 [place] 36,000-114, 00 (three) Medic al 000- times Branch 180,000 daily with unit CpDR meals. lipase-prot Yes [id number] 1{capsu Take 1 [facility] ease-amylas 2-03 le} capsule by it y of e (CREON) 00:00: mouth 3 [place] 36,000-114, 00 (three) Medic al 000- times Branch 180,000 daily with unit CpDR meals. lipase-prot Yes [id number] 1{capsu Take 1 [facility] ease-amylas 2-03 le} capsule by it y of e (CREON) 00:00: mouth 3 [place] 36,000-114, 00 (three) Medic al 000- times Branch 180,000 daily with unit CpDR meals. lipase-prot Yes [id number] 1{capsu Take 1 [facility] ease-amylas 2-03 le} capsule by it y of e (CREON) 00:00: mouth 3 [place] 36,000-114, 00 (three) Medic al 000- times Branch 180,000 daily with unit CpDR meals. lipase-prot Yes [id number] 1{capsu Take 1 [facility] ease-amylas 2-03 le} capsule by it y of e (CREON) 00:00: mouth 3 [place] 36,000-114, 00 (three) Medic al 000- times Branch 180,000 daily with unit CpDR meals. lipase-prot Yes [id number] 1{capsu Take 1 [facility] ease-amylas 2-03 le} capsule by it y of e (CREON) 00:00: mouth 3 [place] 36,000-114, 00 (three) Medic al 000- times Branch 180,000 daily with unit CpDR meals. lipase-prot Yes [id number] 1{capsu Take 1 [facility] ease-amylas 2-03 le} capsule by it y of e (CREON) 00:00: mouth 3 [place] 36,000-114, 00 (three) Medic al 000- times Branch 180,000 daily with unit CpDR meals. lipase-prot Yes [id number] 1{capsu Take 1 [facility] ease-amylas 2-03 le} capsule by it y of e (CREON) 00:00: mouth 3 [place] 36,000-114, 00 (three) Medic al 000- times Branch 180,000 daily with unit CpDR meals. lipase-prot Yes [id number] 1{capsu Take 1 [facility] ease-amylas 2-03 le} capsule by it y of e (CREON) 00:00: mouth 3 [place] 36,000-114, 00 (three) Medic al 000- times Branch 180,000 daily with unit CpDR meals. lipase-prot Yes [id number] 1{capsu Take 1 [facility] ease-amylas 2-03 le} capsule by it y of e (CREON) 00:00: mouth 3 [place] 36,000-114, 00 (three) Medic al 000- times Branch 180,000 daily with unit CpDR meals. lipase-prot Yes [id number] 1{capsu Take 1 [facility] ease-amylas 2-03 le} capsule by it y of e (CREON) 00:00: mouth 3 [place] 36,000-114, 00 (three) Medic al 000- times Branch 180,000 daily with unit CpDR meals. lipase-prot Yes [id number] 1{capsu Take 1 [facility] ease-amylas 2-03 le} capsule by it y of e (CREON) 00:00: mouth 3 [place] 36,000-114, 00 (three) Medic al 000- times Branch 180,000 daily with unit CpDR meals. lipase-prot Yes [id number] 1{capsu Take 1 [facility] ease-amylas 2-03 le} capsule by it y of e (CREON) 00:00: mouth 3 [place] 36,000-114, 00 (three) Medic al 000- times Branch 180,000 daily with unit CpDR meals. lipase-prot Yes [id number] 1{capsu Take 1 [facility] ease-amylas 2-03 le} capsule by it y of e (CREON) 00:00: mouth 3 [place] 36,000-114, 00 (three) Medic al 000- times Branch 180,000 daily with unit CpDR meals. lipase-prot Yes [id number] 1{capsu Take 1 [facility] ease-amylas 2-03 le} capsule by it y of e (CREON) 00:00: mouth 3 [place] 36,000-114, 00 (three) Medic al 000- times Branch 180,000 daily with unit CpDR meals. lipase-prot Yes [id number] 1{capsu Take 1 [facility] ease-amylas 2-03 le} capsule by it y of e (CREON) 00:00: mouth 3 [place] 36,000-114, 00 (three) Medic al 000- times Branch 180,000 daily with unit CpDR meals. lipase-prot Yes [id number] 1{capsu Take 1 [facility] ease-amylas 2-03 le} capsule by it y of e (CREON) 00:00: mouth 3 [place] 36,000-114, 00 (three) Medic al 000- times Branch 180,000 daily with unit CpDR meals. lipase-prot Yes [id number] 1{capsu Take 1 [facility] ease-amylas 2-03 le} capsule by it y of e (CREON) 00:00: mouth 3 [place] 36,000-114, 00 (three) Medic al 000- times Branch 180,000 daily with unit CpDR meals. lipase-prot Yes [id number] 1{capsu Take 1 [facility] ease-amylas 2-03 le} capsule by it y of e (CREON) 00:00: mouth 3 [place] 36,000-114, 00 (three) Medic al 000- times Branch 180,000 daily with unit CpDR meals. lipase-prot Yes [id number] 1{capsu Take 1 [facility] ease-amylas 2-03 le} capsule by it y of e (CREON) 00:00: mouth 3 [place] 36,000-114, 00 (three) Medic al 000- times [facility] 180,000 daily with unit CpDR meals. lipase-prot Yes [id number] 1{capsu Take 1 [facility] 2-03 le} capsule by it y of e (CREON) 00:00: mouth 3 [place] 36,000-114, 00 (three) Medic al 000- times Branch 180,000 daily with unit CpDR meals. lipase-prot Yes [id number] 1{capsu Take 1 [facility] 2-03 le} capsule by it y of e (CREON) 00:00: mouth 3 [place] 36,000-114, 00 (three) Medic al 000- times Branch 180,000 daily with unit CpDR meals. lipase-prot Yes [id number] 1{capsu Take 1 [facility] 2-[facility] le} capsule by it y of e (CREON) 00:00: mouth 3 [place] 36,000-114, 00 (three) Medic al 000- times Branch 180,000 daily with unit CpDR meals. lipase-prot Yes [id number] 1{capsu Take 1 [facility] 2-03 le} capsule by it y of e (CREON) 00:00: mouth 3 [place] 36,000-114, 00 (three) Medic al 000- times Branch 180,000 daily with unit CpDR meals. lipase-prot Yes [id number] 1{capsu Take 1 [facility] 2-03 le} capsule by it y of e (CREON) 00:00: mouth 3 [place] 36,000-114, 00 (three) Medic al 000- times Branch 180,000 daily with unit CpDR meals. lipase-prot Yes [id number] 1{capsu Take 1 [facility] 2-03 le} capsule by it y of e (CREON) 00:00: mouth 3 [place] 36,000-114, 00 (three) Medic al 000- times Branch 180,000 daily with unit CpDR meals. lipase-prot Yes [id number] 1{capsu Take 1 [facility] 2-03 le} capsule by it y of e (CREON) 00:00: mouth 3 [place] 36,000-114, 00 (three) Medic al 000- times Branch 180,000 daily with unit CpDR meals. lipase-prot Yes [id number] 1{capsu Take 1 [facility] 2-[facility] le} capsule by it y of e (CREON) 00:00: mouth 3 [place] 36,000-114, 00 (three) Medic al 000- times Branch 180,000 daily with unit CpDR meals. lipase-prot Yes [id number] 1{capsu Take 1 [facility] 2-[facility] le} capsule by it y of e (CREON) 00:00: mouth 3 [place] 36,000-114, 00 (three) Medic al 000- times Branch 180,000 daily with unit CpDR meals. lipase-prot Yes [id number] 1{capsu Take 1 [facility] 2-03 le} capsule by it y of e (CREON) 00:00: mouth 3 [place] 36,000-114, 00 (three) Medic al 000- times Branch 180,000 daily with unit CpDR meals. lipase-prot Yes [id number] 1{capsu Take 1 [facility] 2-03 le} capsule by it y of e (CREON) 00:00: mouth 3 [place] 36,000-114, 00 (three) Medic al 000- times Branch 180,000 daily with unit CpDR meals. lipase-prot Yes [id number] 1{capsu Take 1 [facility] 2-03 le} capsule by it y of e (CREON) 00:00: mouth 3 [place] 36,000-114, 00 (three) Medic al 000- times Branch 180,000 daily with unit CpDR meals. lipase-prot Yes [id number] 1{capsu Take 1 [facility] 2-[facility] le} capsule by it y of e (CREON) 00:00: mouth 3 [place] 36,000-114, 00 (three) Medic al 000- times Branch 180,000 daily with unit CpDR meals. lipase-prot Yes [id number] 1{capsu Take 1 [facility] 2-[facility] le} capsule by [facility] y of e (CREON) 00:00: mouth 3 [place] 36,000-114, 00 (three) Medic al 000- times Branch 180,000 daily with unit CpDR meals. lipase-prot Yes [id number] 1{capsu Take 1 [facility] 2-[facility] le} capsule by [facility] y of e (CREON) 00:00: mouth 3 [place] 36,000-114, 00 (three) Medic al 000- times Branch 180,000 daily with unit CpDR meals. lipase-prot Yes [id number] 1{capsu Take 1 [facility] 2-03 le} capsule by [facility] y of e (CREON) 00:00: mouth 3 [place] 36,000-114, 00 (three) Medic al 000- times Branch 180,000 daily with unit CpDR meals. lipase-prot Yes [id number] 1{capsu Take 1 [facility] 2-03 le} capsule by [facility] y of e (CREON) 00:00: mouth 3 [place] 36,000-114, 00 (three) Medic al 000- times Branch 180,000 daily with unit CpDR meals. lipase-prot Yes [id number] 1{capsu Take 1 [facility] 2-[facility] le} capsule by [facility] y of e (CREON) 00:00: mouth 3 [place] 36,000-114, 00 (three) Medic al 000- times Branch 180,000 daily with unit CpDR meals. lipase-prot Yes [id number] 1{capsu Take 1 [facility] 2-[facility] le} capsule by [facility] y of e (CREON) 00:00: mouth 3 [place] 36,000-114, 00 (three) Medic al 000- times Branch 180,000 daily with unit CpDR meals. lipase-prot Yes [id number] 1{capsu Take 1 [facility] 2-03 le} capsule by it y of e (CREON) 00:00: mouth 3 [place] 36,000-114, 00 (three) Medic al 000- times Branch 180,000 daily with unit CpDR meals. lipase-prot Yes [id number] 1{capsu Take 1 [facility] 2-03 le} capsule by [facility] y of e (CREON) 00:00: mouth 3 [place] 36,000-114, 00 (three) Medic al 000- times Branch 180,000 daily with unit CpDR meals. lipase-prot Yes [id number] 1{capsu Take 1 [facility] 2-03 le} capsule by [facility] y of e (CREON) 00:00: mouth 3 [place] 36,000-114, 00 (three) Medic al 000- times Branch 180,000 daily with unit CpDR meals. lipase-prot Yes [id number] 1{capsu Take 1 [facility] 2-03 le} capsule by [facility] y of e (CREON) 00:00: mouth 3 [place] 36,000-114, 00 (three) Medic al 000- times Branch 180,000 daily with unit CpDR meals. lipase-prot Yes [id number] 1{capsu Take 1 [facility] 2-[facility] le} capsule by [facility] y of e (CREON) 00:00: mouth 3 [place] 36,000-114, 00 (three) Medic al 000- times Branch 180,000 daily with unit CpDR meals. lipase-prot Yes [id number] 1{capsu Take 1 [facility] 2-03 le} capsule by [facility] y of e (CREON) 00:00: mouth 3 [place] 36,000-114, 00 (three) Medic al 000- times Branch 180,000 daily with unit CpDR meals. lipase-prot Yes [id number] 1{capsu Take 1 [facility] 2-[facility] le} capsule by [facility] y of e (CREON) 00:00: mouth 3 [place] 36,000-114, 00 (three) Medic al 000- times Branch 180,000 daily with unit CpDR meals. lipase-prot Yes [id number] 1{capsu Take 1 [facility] 2-03 le} capsule by [facility] y of e (CRE[facility]) 00:00: mouth 3 [place] 36,000-114, 00 (three) Medic al 000- times Branch 180,000 daily with unit CpDR meals. lipase-prot Yes [id number] 1{capsu Take 1 [facility] 2-03 le} capsule by it y of e (CREON) 00:00: mouth 3 [place] 36,000-114, 00 (three) Medic al 000- times Branch 180,000 daily with unit CpDR meals. lipase-prot Yes [id number] 1{capsu Take 1 [facility] 2-03 le} capsule by [facility] y of e (CREON) 00:00: mouth 3 [place] 36,000-114, 00 (three) Medic al 000- times Branch 180,000 daily with unit CpDR meals. lipase-prot Yes [id number] 1{capsu Take 1 [facility] 2-03 le} capsule by [facility] y of e (CREON) 00:00: mouth 3 [place] 36,000-114, 00 (three) Medic al 000- times Branch 180,000 daily with unit CpDR meals. lipase-prot Yes [id number] 1{capsu Take 1 [facility] 2-03 le} capsule by [facility] of e (CREON) 00:00: mouth 3 [place] 36,000-114, 00 (three) Medic al 000- times Branch 180,000 daily with unit CpDR meals. lipase-prot Yes [id number] 1{capsu Take 1 [facility] 2-03 le} capsule by [facility] of e (CREON) 00:00: mouth 3 [place] 36,000-114, 00 (three) Medic al 000- times Branch 180,000 daily with unit CpDR meals. lipase-prot Yes [id number] 1{capsu Take 1 [facility] 2-03 le} capsule by [facility] of e (CREON) 00:00: mouth 3 [place] 36,000-114, 00 (three) Medic al 000- times Branch 180,000 daily with unit CpDR meals. lipase-prot Yes [id number] 1{capsu Take 1 [facility] 2-03 le} capsule by [facility] y of e (CREON) 00:00: mouth 3 [place] 36,000-114, 00 (three) Medic al 000- times Branch 180,000 daily with unit CpDR meals. lipase-prot Yes [id number] 1{capsu Take 1 [facility] 2-03 le} capsule by [facility] y of e (CREON) 00:00: mouth 3 [place] 36,000-114, 00 (three) Medic al 000- times Branch 180,000 daily with unit CpDR meals. lipase-prot Yes [id number] 1{capsu Take 1 [facility] 2-[facility] le} capsule by [facility] y of e (CREON) 00:00: mouth 3 [place] 36,000-114, 00 (three) Medic al 000- times Branch 180,000 daily with unit CpDR meals. lipase-prot Yes [id number] 1{capsu Take 1 [facility] 2-[facility] le} capsule by [facility] y of e (CRE[facility]) 00:00: mouth 3 [place] 36,000-114, 00 (three) Medic al 000- times Branch 180,000 daily with unit CpDR meals. lipase-prot Yes [id number] 1{capsu Take 1 [facility] 2-03 le} capsule by [facility] y of e (CRE[facility]) 00:00: mouth 3 [place] 36,000-114, 00 (three) Medic al 000- times Branch 180,000 daily with unit CpDR meals. lipase-prot Yes [id number] 1{capsu Take 1 [facility] 2-03 le} capsule by [facility] y of e (CREON) 00:00: mouth 3 [place] 36,000-114, 00 (three) Medic al 000- times Branch 180,000 daily with unit CpDR meals. lipase-prot Yes [id number] 1{capsu Take 1 [facility] 2-03 le} capsule by [facility] y of e (CREON) 00:00: mouth 3 [place] 36,000-114, 00 (three) Medic al 000- times Branch 180,000 daily with unit CpDR meals. lipase-prot Yes [id number] 1{capsu Take 1 [facility] 2-03 le} capsule by [facility] y of e (CREON) 00:00: mouth 3 [place] 36,000-114, 00 (three) Medic al 000- times Branch 180,000 daily with unit CpDR meals. lipase-prot Yes [id number] 1{capsu Take 1 [facility] 2-03 le} capsule by [facility] y of e (CREON) 00:00: mouth 3 [place] 36,000-114, 00 (three) Medic al 000- times Branch 180,000 daily with unit CpDR meals. lipase-prot Yes [id number] 1{capsu Take 1 [facility] 2-03 le} capsule by [facility] y of e (CREON) 00:00: mouth 3 [place] 36,000-114, 00 (three) Medic al 000- times Branch 180,000 daily with unit CpDR meals. lipase-prot Yes [id number] 1{capsu Take 1 [facility] 2-03 le} capsule by it y of e (CREON) 00:00: mouth 3 [place] 36,000-114, 00 (three) Medic al 000- times Branch 180,000 daily with unit CpDR meals. lipase-prot Yes [id number] 1{capsu Take 1 [facility] 2-03 le} capsule by it y of e (CREON) 00:00: mouth 3 [place] 36,000-114, 00 (three) Medic al 000- times Branch 180,000 daily with unit CpDR meals. lipase-prot Yes [id number] 1{capsu Take 1 [facility] 2-03 le} capsule by it y of e (CREON) 00:00: mouth 3 [place] 36,000-114, 00 (three) Medic al 000- times Branch 180,000 daily with unit CpDR meals. lipase-prot Yes [id number] 1{capsu Take 1 [facility] 2-03 le} capsule by it y of e (CREON) 00:00: mouth 3 [place] 36,000-114, 00 (three) Medic al 000- times Branch 180,000 daily with unit CpDR meals. lipase-prot 2020-0 Yes [id number] 1{capsu Take 1 [facility] 2-[facility] le} [...] RUPA 14 DAY SENSOR) kit CONTOUR Yes [id number] Use to Univ ers NEXT TEST 11-05 check ity of STRIPS 00:00: glucose 4X [place] strip 00 daily. Medical DX:E08.65 Branch CONTOUR Yes [id number] Use to Univ ers NEXT TEST 11-05 check ity of STRIPS 00:00: glucose 4X [place] strip 00 daily. Medical DX:E08.65 Branch CONTOUR Yes [id number] Use to [facility] ers NEXT TEST 11-05 check ity of STRIPS 00:00: glucose 4X [place] strip 00 daily. Medical DX:E08.65 Branch CONTOUR Yes [id number] Use to [facility] ers NEXT TEST 11-05 check ity of STRIPS 00:00: glucose 4X [place] strip 00 daily. Medical DX:E08.65 Branch CONTOUR Yes [id number] Use to Univ ers NEXT TEST 11-05 check ity of STRIPS 00:00: glucose 4X [place] strip 00 daily. Medical DX:E08.65 Branch CONTOUR Yes [id number] Use to Univ ers NEXT TEST 11-05 check ity of STRIPS 00:00: glucose 4X [place] strip 00 daily. Medical DX:E08.65 Branch CONTOUR Yes [id number] Use to [facility] ers NEXT TEST 11-05 check ity of STRIPS 00:00: glucose 4X [place] strip 00 daily. Medical DX:E08.65 Branch CONTOUR Yes [id number] Use to Univ ers NEXT TEST 11-05 check ity of STRIPS 00:00: glucose 4X [place] strip 00 daily. Medical DX:E08.65 Branch CONTOUR 2018- Yes [id number] Use to Univ ers NEXT TEST 11-05 check ity of STRIPS 00:00: glucose 4X [place] strip 00 daily. Medical DX:E08.65 Branch CONTOUR 2019- Yes [id number] Use to [facility] ers NEXT TEST 11-05 check ity of STRIPS 00:00: glucose 4X [place] strip 00 daily. Medical DX:E08.65 Branch CONTOUR Yes [id number] Use to Univ ers NEXT TEST 11-05 check ity of STRIPS 00:00: glucose 4X [place] strip 00 daily. Medical DX:E08.65 Branch CONTOUR Yes [id number] Use to Univ ers NEXT TEST 11-05 check ity of STRIPS 00:00: glucose 4X [place] strip 00 daily. Medical DX:E08.65 Branch CONTOUR Yes [id number] Use to Univ ers NEXT TEST 11-05 check ity of STRIPS 00:00: glucose 4X [place] strip 00 daily. Medical DX:E08.65 Branch CONTOUR Yes [id number] Use to [facility] ers NEXT TEST 11-05 check ity of STRIPS 00:00: glucose 4X [place] strip 00 daily. Medical DX:E08.65 Branch CONTOUR Yes [id number] Use to [facility] ers NEXT TEST 11-05 check ity of STRIPS 00:00: glucose 4X [place] strip 00 daily. Medical DX:E08.65 Branch CONTOUR Yes [id number] Use to [facility] ers NEXT TEST 11-05 check ity of STRIPS 00:00: glucose 4X [place] strip 00 daily. Medical DX:E08.65 Branch CONTOUR Yes [id number] Use to [facility] ers NEXT TEST 11-05 check ity of STRIPS 00:00: glucose 4X [place] strip 00 daily. Medical DX:E08.65 Branch CONTOUR 2018- Yes [id number] Use to [facility] ers NEXT TEST 11-05 check ity of STRIPS 00:00: glucose 4X [place] strip 00 daily. Medical DX:E08.65 Branch CONTOUR Yes [id number] Use to [facility] ers NEXT TEST 11-05 check ity of STRIPS 00:00: glucose 4X [place] strip 00 daily. Medical DX:E08.65 Branch CONTOUR Yes [id number] Use to [facility] ers NEXT TEST 11-05 check ity of STRIPS 00:00: glucose 4X [place] strip 00 daily. Medical DX:E08.65 Branch CONTOUR 2018- Yes [id number] Use to [facility] ers NEXT TEST 11-05 check ity of STRIPS 00:00: glucose 4X [place] strip 00 daily. Medical DX:E08.65 Branch CONTOUR 2019-0 Yes [id number] Use to [facility] ers NEXT TEST 11-05 check ity of STRIPS 00:00: glucose 4X [place] strip 00 daily. Medical DX:E08.65 Branch CONTOUR 2019-0 Yes [id number] Use to [facility] ers NEXT TEST 11-05 check ity of STRIPS 00:00: glucose 4X [place] strip 00 daily. Medical DX:E08.65 Branch CONTOUR 2019- Yes [id number] Use to [facility] ers NEXT TEST 11-05 check ity of STRIPS 00:00: glucose 4X [place] strip 00 daily. Medical DX:E08.65 Branch CONTOUR Yes [id number] Use to [facility] ers NEXT TEST 11-05 check ity of STRIPS 00:00: glucose 4X [place] strip 00 daily. Medical DX:E08.65 Branch CONTOUR Yes [id number] Use to [facility] ers NEXT TEST 11-05 check ity of STRIPS 00:00: glucose 4X [place] strip 00 daily. Medical DX:E08.65 Branch CONTOUR Yes [id number] Use to [facility] ers NEXT TEST 11-05 check ity of STRIPS 00:00: glucose 4X [place] strip 00 daily. Medical DX:E08.65 Branch CONTOUR Yes [id number] Use to [facility] ers NEXT TEST 11-05 check ity of STRIPS 00:00: glucose 4X [place] strip 00 daily. Medical DX:E08.65 Branch CONTOUR Yes [id number] Use to [facility] ers NEXT TEST 11-05 check ity of STRIPS 00:00: glucose 4X [place] strip 00 daily. Medical DX:E08.65 Branch CONTOUR 2019- Yes [id number] Use to [facility] ers NEXT TEST 11-05 check ity of STRIPS 00:00: glucose 4X [place] strip 00 daily. Medical DX:E08.65 Branch CONTOUR Yes [id number] Use to [facility] ers NEXT TEST 11-05 check ity of STRIPS 00:00: glucose 4X [place] strip 00 daily. Medical DX:E08.65 Branch CONTOUR 2019-0 [id number] Use to [facility] ers NEXT TEST 11-05 check ity of STRIPS 00:00: glucose 4X [place] strip 00 daily. Medical DX:E08.65 Branch CONTOUR 2019- Yes [id number] Use to [facility] ers NEXT TEST 11-05 check ity of STRIPS 00:00: glucose 4X [place] strip 00 daily. Medical DX:E08.65 Branch CONTOUR 2019-0 Yes [id number] Use to Univ ers NEXT TEST 11-05 check ity of STRIPS 00:00: glucose 4X [place] strip 00 daily. Medical DX:E08.65 Branch CONTOUR 2019- Yes [id number] Use to Univ ers NEXT TEST 11-05 check ity of STRIPS 00:00: glucose 4X [place] strip 00 daily. Medical DX:E08.65 Branch CONTOUR 2019- Yes [id number] Use to Univ ers NEXT TEST 11-05 check ity of STRIPS 00:00: glucose 4X [place] strip 00 daily. Medical DX:E08.65 Branch CONTOUR Yes [id number] Use to Univ ers NEXT TEST 11-05 check ity of STRIPS 00:00: glucose 4X [place] strip 00 daily. Medical DX:E08.65 Branch CONTOUR Yes [id number] Use to Univ ers NEXT TEST 11-05 check ity of STRIPS 00:00: glucose 4X [place] strip 00 daily. Medical DX:E08.65 Branch CONTOUR Yes [id number] Use to Univ ers NEXT TEST 11-05 check ity of STRIPS 00:00: glucose 4X [place] strip 00 daily. Medical DX:E08.65 Branch CONTOUR Yes [id number] Use to Univ ers NEXT TEST 11-05 check ity of STRIPS 00:00: glucose 4X [place] strip 00 daily. Medical DX:E08.65 Branch CONTOUR Yes [id number] Use to [facility] ers NEXT TEST 11-05 check ity of STRIPS 00:00: glucose 4X [place] strip 00 daily. Medical DX:E08.65 Branch CONTOUR 2019- Yes [id number] Use to Univ ers NEXT TEST 11-05 check ity of STRIPS 00:00: glucose 4X [place] strip 00 daily. Medical DX:E08.65 Branch CONTOUR 2019 Yes [id number] Use to Univ ers NEXT TEST 11-05 check ity of STRIPS 00:00: glucose 4X [place] strip 00 daily. Medical DX:E08.65 Branch CONTOUR 2019-0 [id number] Use to [facility] ers NEXT TEST 11-05 check ity of STRIPS 00:00: glucose 4X [place] strip 00 daily. Medical DX:E08.65 Branch CONTOUR 2019- Yes [id number] Use to Univ ers NEXT TEST 11-05 check ity of STRIPS 00:00: glucose 4X [place] strip 00 daily. Medical DX:E08.65 Branch CONTOUR 2019-0 Yes [id number] Use to Univ ers NEXT TEST 11-05 check ity of STRIPS 00:00: glucose 4X [place] strip 00 daily. Medical DX:E08.65 Branch CONTOUR 2019-0 Yes [id number] Use to Univ ers NEXT TEST 11-05 check ity of STRIPS 00:00: glucose 4X [place] strip 00 daily. Medical DX:E08.65 Branch CONTOUR 2019- Yes [id number] Use to Univ ers NEXT TEST 11-05 check ity of STRIPS 00:00: glucose 4X [place] strip 00 daily. Medical DX:E08.65 Branch CONTOUR 2019 Yes [id number] Use to Univ ers NEXT TEST 11-05 check ity of STRIPS 00:00: glucose 4X [place] strip 00 daily. Medical DX:E08.65 Branch CONTOUR 2018- Yes [id number] Use to Univ ers NEXT TEST 11-05 check ity of STRIPS 00:00: glucose 4X [place] strip 00 daily. Medical DX:E08.65 Branch CONTOUR Yes [id number] Use to Univ ers NEXT TEST 11-05 check ity of STRIPS 00:00: glucose 4X [place] strip 00 daily. Medical DX:E08.65 Branch CONTOUR Yes [id number] Use to Univ ers NEXT TEST 11-05 check ity of STRIPS 00:00: glucose 4X [place] strip 00 daily. Medical DX:E08.65 Branch CONTOUR Yes [id number] Use to [facility] ers NEXT TEST 11-05 check ity of STRIPS 00:00: glucose 4X [place] strip 00 daily. Medical DX:E08.65 Branch CONTOUR 2019- Yes [id number] Use to Univ ers NEXT TEST 11-05 check ity of STRIPS 00:00: glucose 4X [place] strip 00 daily. Medical DX:E08.65 Branch CONTOUR 2019-0 Yes [id number] Use to Univ ers NEXT TEST 11-05 check ity of STRIPS 00:00: glucose 4X [place] strip 00 daily. Medical DX:E08.65 Branch CONTOUR 2019-0 Yes [id number] Use to Univ ers NEXT TEST 11-05 check ity of STRIPS 00:00: glucose 4X [place] strip 00 daily. Medical DX:E08.65 Branch CONTOUR 2019-0 Yes [id number] Use to Univ ers NEXT TEST 11-05 check ity of STRIPS 00:00: glucose 4X [place] strip 00 daily. Medical DX:E08.65 Branch CONTOUR 2018- Yes [id number] Use to [facility] ers NEXT TEST 11-05 check ity of STRIPS 00:00: glucose 4X [place] strip 00 daily. Medical DX:E08.65 Branch CONTOUR 2018- Yes [id number] Use to [facility] ers NEXT TEST 11-05 check ity of STRIPS 00:00: glucose 4X [place] strip 00 daily. Medical DX:E08.65 Branch CONTOUR Yes [id number] Use to [facility] ers NEXT TEST 11-05 check ity of STRIPS 00:00: glucose 4X [place] strip 00 daily. Medical DX:E08.65 Branch CONTOUR Yes [id number] Use to [facility] ers NEXT TEST 11-05 check ity of STRIPS 00:00: glucose 4X [place] strip 00 daily. Medical DX:E08.65 Branch CONTOUR Yes [id number] Use to [facility] ers NEXT TEST 11-05 check ity of STRIPS 00:00: glucose 4X [place] strip 00 daily. Medical DX:E08.65 Branch CONTOUR Yes [id number] Use to [facility] ers NEXT TEST 11-05 check ity of STRIPS 00:00: glucose 4X [place] strip 00 daily. Medical DX:E08.65 Branch CONTOUR Yes [id number] Use to [facility] ers NEXT TEST 11-05 check ity of STRIPS 00:00: glucose 4X [place] strip 00 daily. Medical DX:E08.65 Branch CONTOUR Yes [id number] Use to [facility] ers NEXT TEST 11-05 check ity of STRIPS 00:00: glucose 4X [place] strip 00 daily. Medical DX:E08.65 Branch CONTOUR Yes [id number] Use to [facility] ers NEXT TEST 11-05 check ity of STRIPS 00:00: glucose 4X [place] strip 00 daily. Medical DX:E08.65 Branch CONTOUR Yes [id number] Use to [facility] ers NEXT TEST 11-05 check ity of STRIPS 00:00: glucose 4X [place] strip 00 daily. Medical DX:E08.65 Branch CONTOUR 2019- Yes [id number] Use to [facility] ers NEXT TEST 11-05 check ity of STRIPS 00:00: glucose 4X [place] strip 00 daily. Medical DX:E08.65 Branch CONTOUR 2019- Yes [id number] Use to [facility] ers NEXT TEST 5- check ity of STRIPS 00:00: glucose 4X [place] strip 00 daily. Medical DX:E08.65 Branch CONTOUR 2019-0 Yes [id number] Use to Univ ers NEXT TEST 5-31 check ity of STRIPS 00:00: glucose 4X [place] strip 00 daily. Medical DX:E08.65 Branch flash 2019-0 Yes [id number] 1{each} 1 Each Uni vers glucose 3-15 daily. Dx ity of scanning 00:00: 11.8, E [place] reader Misc 00 16.2, K Medic al 86.89 Branch flash 2019-0 Yes [id number] 1{each} 1 Each Uni vers glucose 3-15 every 10 ity of sensor Kit 00:00: () 00 days. Dx Medical 11.8, E Branch 16.2, K 86.89 flash 2019-0 Yes [id number] 1{each} 1 Each Uni vers glucose 3-15 daily. Dx ity of scanning 00:00: 11.8, E [place] reader Misc 00 16.2, K Medic al 86.89 Branch flash 2019-0 Yes [id number] 1{each} 1 Each Uni vers glucose 3-15 every 10 ity of sensor Kit 00:00: () [place] 00 days. Dx Medical 11.8, E Branch 16.2, K 86.89 flash 2019-0 Yes [id number] 1{each} 1 Each Uni vers glucose 3-15 daily. Dx ity of scanning 00:00: 11.8, E [place] reader Misc 00 16.2, K Medic al 86.89 Branch flash 2019-0 Yes [id number] 1{each} 1 Each Uni vers glucose 3-15 every 10 ity of sensor Kit 00:00: () [place] 00 days. Dx Medical 11.8, E Branch 16.2, K 86.89 flash 2019-0 Yes [id number] 1{each} 1 Each Uni vers glucose 3-15 daily. Dx ity of scanning 00:00: 11.8, E [place] reader Misc 00 16.2, K Medic al 86.89 Branch flash 2019-0 Yes [id number] 1{each} 1 Each Uni vers glucose 3-15 every 10 ity of sensor Kit 00:00: () [place] 00 days. Dx Medical 11.8, E Branch 16.2, K 86.89 flash 2019-0 Yes [id number] 1{each} 1 Each Uni vers glucose 3-15 daily. Dx ity of scanning 00:00: 11.8, E [place] reader Misc 00 16.2, K Medic al 86.89 Branch flash 2019-0 Yes [id number] 1{each} 1 Each Uni vers glucose 3-15 every 10 ity of sensor Kit 00:00: () 00 days. Dx Medical 11.8, E Branch 16.2, K 86.89 flash 2019-0 Yes [id number] 1{each} 1 Each Uni vers glucose 3-15 daily. Dx ity of scanning 00:00: 11.8, E [place] reader Misc 00 16.2, K Medic al 86.89 Branch flash 2019-0 Yes [id number] 1{each} 1 Each Uni vers glucose 3-15 every 10 ity of sensor Kit 00:00: () 00 days. Dx Medical 11.8, E Branch 16.2, K 86.89 flash 2019-0 Yes [id number] 1{each} 1 Each Uni vers glucose 3-15 daily. Dx ity of scanning 00:00: 11.8, E [place] reader Misc 00 16.2, K Medic al 86.89 Branch flash 2019-0 Yes [id number] 1{each} 1 Each Uni vers glucose 3-15 every 10 ity of sensor Kit 00:00: () 00 days. Dx Medical 11.8, E Branch 16.2, K 86.89 flash 2019-0 Yes [id number] 1{each} 1 Each Uni vers glucose 3-15 daily. Dx ity of scanning 00:00: 11.8, E [place] reader Misc 00 16.2, K Medic al 86.89 Branch flash 2019-0 Yes [id number] 1{each} 1 Each Uni vers glucose 3-15 every 10 ity of sensor Kit 00:00: () 00 days. Dx Medical 11.8, E Branch 16.2, K 86.89 flash 2019-0 Yes [id number] 1{each} 1 Each Uni vers glucose 3-15 daily. Dx ity of scanning 00:00: 11.8, E [place] reader Misc 00 16.2, K Medic al 86.89 Branch flash 2019-0 Yes [id number] 1{each} 1 Each Uni vers glucose 3-15 every 10 ity of sensor Kit 00:00: () [place] 00 days. Dx Medical 11.8, E Branch 16.2, K 86.89 flash 2019-0 Yes [id number] 1{each} 1 Each Uni vers glucose 3-15 daily. Dx ity of scanning 00:00: 11.8, E [place] reader Misc 00 16.2, K Medic al 86.89 Branch flash 2019-0 Yes [id number] 1{each} 1 Each Uni vers glucose 3-15 every 10 ity of sensor Kit 00:00: () 00 days. Dx Medical 11.8, E Branch 16.2, K 86.89 flash 2019-0 Yes [id number] 1{each} 1 Each Uni vers glucose 3-15 daily. Dx ity of scanning 00:00: 11.8, E [place] reader Misc 00 16.2, K Medic al 86.89 Branch flash 2019-0 Yes [id number] 1{each} 1 Each Uni vers glucose 3-15 every 10 ity of sensor Kit 00:00: () 00 days. Dx Medical 11.8, E Branch 16.2, K 86.89 flash 2019-0 Yes [id number] 1{each} 1 Each Uni vers glucose 3-15 daily. Dx ity of scanning 00:00: 11.8, E [place] reader Misc 00 16.2, K Medic al 86.89 Branch flash 2019-0 Yes [id number] 1{each} 1 Each Uni vers glucose 3-15 every 10 ity of sensor Kit 00:00: () 00 days. Dx Medical 11.8, E Branch 16.2, K 86.89 flash 2019-0 Yes [id number] 1{each} 1 Each Uni vers glucose 3-15 daily. Dx ity of scanning 00:00: 11.8, E [place] reader Misc 00 16.2, K Medic al 86.89 Branch flash 2019-0 Yes [id number] 1{each} 1 Each Uni vers glucose 3-15 every 10 ity of sensor Kit 00:00: () 00 days. [facility] 11.8, E Branch 16.2, K 86.89 flash 2019-0 Yes [id number] 1{each} 1 Each Uni vers glucose 3-15 daily. Dx ity of scanning 00:00: 11.8, E [place] reader Misc 00 16.2, K Medic al 86.89 Branch flash 2019-0 Yes [id number] 1{each} 1 Each Uni vers glucose 3-15 every 10 ity of sensor Kit 00:00: () 00 days. [facility]x Medical 11.8, E Branch 16.2, K 86.89 flash 2019-0 Yes [id number] 1{each} 1 Each Uni vers glucose 3-15 daily. Dx ity of scanning 00:00: 11.8, E [place] reader Misc 00 16.2, K Medic al 86.89 Branch flash 2019-0 Yes [id number] 1{each} 1 Each Uni vers glucose 3-15 every 10 ity of sensor Kit 00:00: () 00 days. Dx Medical 11.8, E Branch 16.2, K 86.89 flash 2019-0 Yes [id number] 1{each} 1 Each Uni vers glucose 3-15 daily. Dx ity of scanning 00:00: 11.8, E [place] reader Misc 00 16.2, K Medic al 86.89 Branch flash 2019-0 Yes [id number] 1{each} 1 Each Uni vers glucose 3-15 every 10 ity of sensor Kit 00:00: () 00 days. [facility]x Medical 11.8, E Branch 16.2, K 86.89 flash 2019-0 Yes [id number] 1{each} 1 Each Uni vers glucose 3-15 daily. Dx ity of scanning 00:00: 11.8, E [place] reader Misc 00 16.2, K Medic al 86.89 Branch flash 2019-0 Yes [id number] 1{each} 1 Each Uni vers glucose 3-15 every 10 ity of sensor Kit 00:00: () 00 days. Dx Medical 11.8, E Branch 16.2, K 86.89 flash 2019-0 Yes [id number] 1{each} 1 Each Uni vers glucose 3-15 daily. Dx ity of scanning 00:00: 11.8, E [place] reader Misc 00 16.2, K Medic al 86.89 Branch flash 2019-0 Yes [id number] 1{each} 1 Each Uni vers glucose 3-15 every 10 ity of sensor Kit 00:00: () 00 days. [facility]x Medical 11.8, E Branch 16.2, K 86.89 flash 2019-0 Yes [id number] 1{each} 1 Each Uni vers glucose 3-15 daily. Dx ity of scanning 00:00: 11.8, E [place] reader Misc 00 16.2, K Medic al 86.89 Branch flash 2019-0 Yes [id number] 1{each} 1 Each Uni vers glucose 3-15 every 10 ity of sensor Kit 00:00: () 00 days. [facility]x Medical 11.8, E Branch 16.2, K 86.89 flash 2019-0 Yes [id number] 1{each} 1 Each Uni vers glucose 3-15 daily. Dx ity of scanning 00:00: 11.8, E [place] reader Misc 00 16.2, K Medic al 86.89 Branch flash 2019-0 Yes [id number] 1{each} 1 Each Uni vers glucose 3-15 every 10 ity of sensor Kit 00:00: () 00 days. [facility]x Medical 11.8, E Branch 16.2, K 86.89 flash 2019-0 Yes [id number] 1{each} 1 Each Uni vers glucose 3-15 daily. Dx ity of scanning 00:00: 11.8, E [place] reader Misc 00 16.2, K Medic al 86.89 Branch flash 2019-0 Yes [id number] 1{each} 1 Each Uni vers glucose 3-15 every 10 ity of sensor Kit 00:00: () 00 days. [facility]x Medical 11.8, E Branch 16.2, K 86.89 flash 2019-0 Yes [id number] 1{each} 1 Each Uni vers glucose 3-15 daily. Dx ity of scanning 00:00: 11.8, E [place] reader Misc 00 16.2, K Medic al 86.89 Branch flash 2019-0 Yes [id number] 1{each} 1 Each Uni vers glucose 3-15 every 10 ity of sensor Kit 00:00: () 00 days. Dx Medical 11.8, E Branch 16.2, K 86.89 flash 2019-0 Yes [id number] 1{each} 1 Each Uni vers glucose 3-15 daily. Dx ity of scanning 00:00: 11.8, E [place] reader Misc 00 16.2, K Medic al 86.89 Branch flash 2019-0 Yes [id number] 1{each} 1 Each Uni vers glucose 3-15 every 10 ity of sensor Kit 00:00: () 00 days. [facility]x Medical 11.8, E Branch 16.2, K 86.89 flash 2019-0 Yes [id number] 1{each} 1 Each Uni vers glucose 3-15 daily. Dx ity of scanning 00:00: 11.8, E [place] reader Misc 00 16.2, K Medic al 86.89 Branch flash 2019-0 Yes [id number] 1{each} 1 Each Uni vers glucose 3-15 every 10 ity of sensor Kit 00:00: () 00 days. [facility]x Medical 11.8, E Branch 16.2, K 86.89 flash 2019-0 Yes [id number] 1{each} 1 Each Uni vers glucose 3-15 daily. Dx ity of scanning 00:00: 11.8, E [place] reader Misc 00 16.2, K Medic al 86.89 Branch flash 2019-0 Yes [id number] 1{each} 1 Each Uni vers glucose 3-15 every 10 ity of sensor Kit 00:00: () 00 days. [facility]x Medical 11.8, E Branch 16.2, K 86.89 flash 2019-0 Yes [id number] 1{each} 1 Each Uni vers glucose 3-15 daily. Dx ity of scanning 00:00: 11.8, E [place] reader Misc 00 16.2, K Medic al 86.89 Branch flash 2019-0 Yes [id number] 1{each} 1 Each Uni vers glucose 3-15 every 10 ity of sensor Kit 00:00: () 00 days. [facility] Medical 11.8, E Branch 16.2, K 86.89 flash 2019-0 Yes [id number] 1{each} 1 Each Uni vers glucose 3-15 daily. Dx ity of scanning 00:00: 11.8, E [place] reader Misc 00 16.2, K Medic al 86.89 Branch flash 2019-0 Yes [id number] 1{each} 1 Each Uni vers glucose 3-15 every 10 ity of sensor Kit 00:00: () 00 days. [facility]x Medical 11.8, E Branch 16.2, K 86.89 flash 2019-0 Yes [id number] 1{each} 1 Each Uni vers glucose 3-15 daily. Dx ity of scanning 00:00: 11.8, E [place] reader Misc 00 16.2, K Medic al 86.89 Branch flash 2019-0 Yes [id number] 1{each} 1 Each Uni vers glucose 3-15 every 10 ity of sensor Kit 00:00: () 00 days. [facility] 11.8, E Branch 16.2, K 86.89 flash 2019-0 Yes [id number] 1{each} 1 Each Uni vers glucose 3-15 daily. Dx ity of scanning 00:00: 11.8, E [place] reader Misc 00 16.2, K Medic al 86.89 Branch flash 2019-0 Yes [id number] 1{each} 1 Each Uni vers glucose 3-15 every 10 ity of sensor Kit 00:00: () 00 days. [facility] 11.8, E Branch 16.2, K 86.89 flash 2019-0 Yes [id number] 1{each} 1 Each Uni vers glucose 3-15 daily. Dx ity of scanning 00:00: 11.8, E [place] reader Misc 00 16.2, K Medic al 86.89 Branch flash 2019-0 Yes [id number] 1{each} 1 Each Uni vers glucose 3-15 every 10 ity of sensor Kit 00:00: () 00 days. [facility] 11.8, E Branch 16.2, K 86.89 flash 2019-0 Yes [id number] 1{each} 1 Each Uni vers glucose 3-15 daily. Dx ity of scanning 00:00: 11.8, E [place] reader Misc 00 16.2, K Medic al 86.89 Branch flash 2019-0 Yes [id number] 1{each} 1 Each Uni vers glucose 3-15 every 10 ity of sensor Kit 00:00: () 00 days. [facility] 11.8, E Branch 16.2, K 86.89 flash 2019-0 Yes [id number] 1{each} 1 Each Uni vers glucose 3-15 daily. Dx ity of scanning 00:00: 11.8, E [place] reader Misc 00 16.2, K Medic al 86.89 Branch flash 2019-0 Yes [id number] 1{each} 1 Each Uni vers glucose 3-15 every 10 ity of sensor Kit 00:00: () 00 days. [facility] 11.8, E Branch 16.2, K 86.89 flash 2019-0 Yes [id number] 1{each} 1 Each Uni vers glucose 3-15 daily. Dx ity of scanning 00:00: 11.8, E [place] reader Misc 00 16.2, K Medic al 86.89 Branch flash 2019-0 Yes [id number] 1{each} 1 Each Uni vers glucose 3-15 every 10 ity of sensor Kit 00:00: () 00 days. [facility] 11.8, E Branch 16.2, K 86.89 flash 2019-0 Yes [id number] 1{each} 1 Each Uni vers glucose 3-15 daily. Dx ity of scanning 00:00: 11.8, E [place] reader Misc 00 16.2, K Medic al 86.89 Branch flash 2019-0 Yes [id number] 1{each} 1 Each Uni vers glucose 3-15 every 10 ity of sensor Kit 00:00: () 00 days. [facility] 11.8, E Branch 16.2, K 86.89 flash 2019-0 Yes [id number] 1{each} 1 Each Uni vers glucose 3-15 daily. Dx ity of scanning 00:00: 11.8, E [place] reader Misc 00 16.2, K Medic al 86.89 Branch flash 2019-0 Yes [id number] 1{each} 1 Each Uni vers glucose 3-15 every 10 ity of sensor Kit 00:00: () 00 days. [facility] 11.8, E Branch 16.2, K 86.89 flash 2019-0 Yes [id number] 1{each} 1 Each Uni vers glucose 3-15 daily. Dx ity of scanning 00:00: 11.8, E [place] reader Misc 00 16.2, K Medic al 86.89 Branch flash 2019-0 Yes [id number] 1{each} 1 Each Uni vers glucose 3-15 every 10 ity of sensor Kit 00:00: () 00 days. [facility] 11.8, E Branch 16.2, K 86.89 flash 2019-0 Yes [id number] 1{each} 1 Each Uni vers glucose 3-15 daily. Dx ity of scanning 00:00: 11.8, E [place] reader Misc 00 16.2, K Medic al 86.89 Branch flash 2019-0 Yes [id number] 1{each} 1 Each Uni vers glucose 3-15 every 10 ity of sensor Kit 00:00: () 00 days. [facility] 11.8, E Branch 16.2, K 86.89 flash 2019-0 Yes [id number] 1{each} 1 Each Uni vers glucose 3-15 daily. Dx ity of scanning 00:00: 11.8, E [place] reader Misc 00 16.2, K Medic al 86.89 Branch flash 2019-0 Yes [id number] 1{each} 1 Each Uni vers glucose 3-15 every 10 ity of sensor Kit 00:00: () 00 days. [facility] 11.8, E Branch 16.2, K 86.89 flash 2019-0 Yes [id number] 1{each} 1 Each Uni vers glucose 3-15 daily. Dx ity of scanning 00:00: 11.8, E [place] reader Misc 00 16.2, K Medic al 86.89 Branch flash 2019-0 Yes [id number] 1{each} 1 Each Uni vers glucose 3-15 every 10 ity of sensor Kit 00:00: () 00 days. [facility]x Medical 11.8, E Branch 16.2, K 86.89 flash 2019-0 Yes [id number] 1{each} 1 Each Uni vers glucose 3-15 daily. Dx ity of scanning 00:00: 11.8, E [place] reader Misc 00 16.2, K Medic al 86.89 Branch flash 2019-0 Yes [id number] 1{each} 1 Each Uni vers glucose 3-15 every 10 ity of sensor Kit 00:00: () 00 days. [facility]x Medical 11.8, E Branch 16.2, K 86.89 flash 2019-0 Yes [id number] 1{each} 1 Each Uni vers glucose 3-15 daily. Dx ity of scanning 00:00: 11.8, E [place] reader Misc 00 16.2, K Medic al 86.89 Branch flash 2019-0 Yes [id number] 1{each} 1 Each Uni vers glucose 3-15 every 10 ity of sensor Kit 00:00: () [place] 00 days. [facility] 11.8, E Branch 16.2, K 86.89 flash 2019-0 Yes [id number] 1{each} 1 Each Uni vers glucose 3-15 daily. Dx ity of scanning 00:00: 11.8, E [place] reader Misc 00 16.2, K Medic al 86.89 Branch flash 2019-0 Yes [id number] 1{each} 1 Each Uni vers glucose 3-15 every 10 ity of sensor Kit 00:00: () [place] 00 days. [facility] 11.8, E Branch 16.2, K 86.89 flash 2019-0 Yes [id number] 1{each} 1 Each Uni vers glucose 3-15 daily. Dx ity of scanning 00:00: 11.8, E [place] reader Misc 00 16.2, K Medic al 86.89 Branch flash 2019-0 Yes [id number] 1{each} 1 Each Uni vers glucose 3-15 every 10 ity of sensor Kit 00:00: () 00 days. Dx Medical 11.8, E Branch 16.2, K 86.89 flash 2019-0 Yes [id number] 1{each} 1 Each Uni vers glucose 3-15 daily. Dx ity of scanning 00:00: 11.8, E [place] reader Misc 00 16.2, K Medic al 86.89 Branch flash 2019-0 Yes [id number] 1{each} 1 Each Uni vers glucose 3-15 every 10 ity of sensor Kit 00:00: () 00 days. Dx Medical 11.8, E Branch 16.2, K 86.89 flash 2019-0 Yes [id number] 1{each} 1 Each Uni vers glucose 3-15 daily. Dx ity of scanning 00:00: 11.8, E [place] reader Misc 00 16.2, K Medic al 86.89 Branch flash 2019-0 Yes [id number] 1{each} 1 Each Uni vers glucose 3-15 every 10 ity of sensor Kit 00:00: () 00 days. [facility]x Medical 11.8, E Branch 16.2, K 86.89 flash 2019-0 Yes [id number] 1{each} 1 Each Uni vers glucose 3-15 daily. Dx ity of scanning 00:00: 11.8, E [place] reader Misc 00 16.2, K Medic al 86.89 Branch flash 2019-0 Yes [id number] 1{each} 1 Each Uni vers glucose 3-15 every 10 ity of sensor Kit 00:00: () 00 days. [facility]x Medical 11.8, E Branch 16.2, K 86.89 flash 2019-0 Yes [id number] 1{each} 1 Each Uni vers glucose 3-15 daily. Dx ity of scanning 00:00: 11.8, E [place] reader Misc 00 16.2, K Medic al 86.89 Branch flash 2019-0 Yes [id number] 1{each} 1 Each Uni vers glucose 3-15 every 10 ity of sensor Kit 00:00: () 00 days. [facility]x Medical 11.8, E Branch 16.2, K 86.89 flash 2019-0 Yes [id number] 1{each} 1 Each Uni vers glucose 3-15 daily. Dx ity of scanning 00:00: 11.8, E [place] reader Misc 00 16.2, K Medic al 86.89 Branch flash 2019-0 Yes [id number] 1{each} 1 Each Uni vers glucose 3-15 every 10 ity of sensor Kit 00:00: () 00 days. [facility]x Medical 11.8, E Branch 16.2, K 86.89 flash 2019-0 Yes [id number] 1{each} 1 Each Uni vers glucose 3-15 daily. Dx ity of scanning 00:00: 11.8, E [place] reader Misc 00 16.2, K Medic al 86.89 Branch flash 2019-0 Yes [id number] 1{each} 1 Each Uni vers glucose 3-15 every 10 ity of sensor Kit 00:00: () 00 days. Dx Medical 11.8, E Branch 16.2, K 86.89 flash 2019-0 Yes [id number] 1{each} 1 Each Uni vers glucose 3-15 daily. Dx ity of scanning 00:00: 11.8, E [place] reader Misc 00 16.2, K Medic al 86.89 Branch flash 2019-0 Yes [id number] 1{each} 1 Each Uni vers glucose 3-15 every 10 ity of sensor Kit 00:00: () 00 days. Dx Medical 11.8, E Branch 16.2, K 86.89 flash 2019-0 Yes [id number] 1{each} 1 Each Uni vers glucose 3-15 daily. Dx ity of scanning 00:00: 11.8, E [place] reader Misc 00 16.2, K Medic al 86.89 Branch flash 2019-0 Yes [id number] 1{each} 1 Each Uni vers glucose 3-15 every 10 ity of sensor Kit 00:00: () 00 days. Dx Medical 11.8, E Branch 16.2, K 86.89 flash 2019-0 Yes [id number] 1{each} 1 Each Uni vers glucose 3-15 daily. Dx ity of scanning 00:00: 11.8, E [place] reader Misc 00 16.2, K Medic al 86.89 Branch flash 2019-0 Yes [id number] 1{each} 1 Each Uni vers glucose 3-15 every 10 ity of sensor Kit 00:00: () 00 days. [facility]x Medical 11.8, E Branch 16.2, K 86.89 flash 2019-0 Yes [id number] 1{each} 1 Each Uni vers glucose 3-15 daily. Dx ity of scanning 00:00: 11.8, E [place] reader Misc 00 16.2, K Medic al 86.89 Branch flash 2019-0 Yes [id number] 1{each} 1 Each Uni vers glucose 3-15 every 10 ity of sensor Kit 00:00: () 00 days. Dx Medical 11.8, E Branch 16.2, K 86.89 flash 2019-0 Yes [id number] 1{each} 1 Each Uni vers glucose 3-15 daily. Dx ity of scanning 00:00: 11.8, E [place] reader Misc 00 16.2, K Medic al 86.89 Branch flash 2019-0 Yes [id number] 1{each} 1 Each Uni vers glucose 3-15 every 10 ity of sensor Kit 00:00: () 00 days. Dx Medical 11.8, E Branch 16.2, K 86.89 flash 2019-0 Yes [id number] 1{each} 1 Each Uni vers glucose 3-15 daily. Dx ity of scanning 00:00: 11.8, E [place] reader Misc 00 16.2, K Medic al 86.89 Branch flash 2019-0 Yes [id number] 1{each} 1 Each Uni vers glucose 3-15 every 10 ity of sensor Kit 00:00: () 00 days. Dx Medical 11.8, E Branch 16.2, K 86.89 flash 2019-0 Yes [id number] 1{each} 1 Each Uni vers glucose 3-15 daily. Dx ity of scanning 00:00: 11.8, E [place] reader Misc 00 16.2, K Medic al 86.89 Branch flash 2019-0 Yes [id number] 1{each} 1 Each Uni vers glucose 3-15 every 10 ity of sensor Kit 00:00: () 00 days. Dx Medical 11.8, E Branch 16.2, K 86.89 flash 2019-0 Yes [id number] 1{each} 1 Each Uni vers glucose 3-15 daily. Dx ity of scanning 00:00: 11.8, E [place] reader Misc 00 16.2, K Medic al 86.89 Branch flash 2019-0 Yes [id number] 1{each} 1 Each Uni vers glucose 3-15 every 10 ity of sensor Kit 00:00: () 00 days. Dx Medical 11.8, E Branch 16.2, K 86.89 flash 2019-0 Yes [id number] 1{each} 1 Each Uni vers glucose 3-15 daily. Dx ity of scanning 00:00: 11.8, E [place] reader Misc 00 16.2, K Medic al 86.89 Branch flash 2019-0 Yes [id number] 1{each} 1 Each Uni vers glucose 3-15 every 10 ity of sensor Kit 00:00: () 00 days. Dx Medical 11.8, E Branch 16.2, K 86.89 flash 2019-0 Yes [id number] 1{each} 1 Each Uni vers glucose 3-15 daily. Dx ity of scanning 00:00: 11.8, E [place] reader Misc 00 16.2, K Medic al 86.89 Branch flash 2019-0 Yes [id number] 1{each} 1 Each Uni vers glucose 3-15 every 10 ity of sensor Kit 00:00: () [place] 00 days. Dx Medical 11.8, E Branch 16.2, K 86.89 flash 2019-0 Yes [id number] 1{each} 1 Each Uni vers glucose 3-15 daily. Dx ity of scanning 00:00: 11.8, E [place] reader Misc 00 16.2, K Medic al 86.89 Branch flash 2019-0 Yes [id number] 1{each} 1 Each Uni vers glucose 3-15 every 10 ity of sensor Kit 00:00: () [place] 00 days. Dx Medical 11.8, E Branch 16.2, K 86.89 flash 2019-0 Yes [id number] 1{each} 1 Each Uni vers glucose 3-15 daily. Dx ity of scanning 00:00: 11.8, E [place] reader Misc 00 16.2, K Medic al 86.89 Branch flash 2019-0 Yes [id number] 1{each} 1 Each Uni vers glucose 3-15 every 10 ity of sensor Kit 00:00: () 00 days. Dx Medical 11.8, E Branch 16.2, K 86.89 flash 2019-0 Yes [id number] 1{each} 1 Each Uni vers glucose 3-15 daily. Dx ity of scanning 00:00: 11.8, E [place] reader Misc 00 16.2, K Medic al 86.89 Branch flash 2019-0 Yes [id number] 1{each} 1 Each Uni vers glucose 3-15 every 10 ity of sensor Kit 00:00: () 00 days. Dx Medical 11.8, E Branch 16.2, K 86.89 flash 2019-0 Yes [id number] 1{each} 1 Each Uni vers glucose 3-15 daily. Dx ity of scanning 00:00: 11.8, E [place] reader Misc 00 16.2, K Medic al 86.89 Branch flash 2019-0 Yes [id number] 1{each} 1 Each Uni vers glucose 3-15 every 10 ity of sensor Kit 00:00: () 00 days. Dx Medical 11.8, E Branch 16.2, K 86.89 flash 2019-0 Yes [id number] 1{each} 1 Each Uni vers glucose 3-15 daily. Dx ity of scanning 00:00: 11.8, E [place] reader Misc 00 16.2, K Medic al 86.89 Branch flash 2019-0 Yes [id number] 1{each} 1 Each Uni vers glucose 3-15 every 10 ity of sensor Kit 00:00: () 00 days. Dx Medical 11.8, E Branch 16.2, K 86.89 flash 2019-0 Yes [id number] 1{each} 1 Each Uni vers glucose 3-15 daily. Dx ity of scanning 00:00: 11.8, E [place] reader Misc 00 16.2, K Medic al 86.89 Branch flash 2019-0 Yes [id number] 1{each} 1 Each Uni vers glucose 3-15 every 10 ity of sensor Kit 00:00: () 00 days. Dx Medical 11.8, E Branch 16.2, K 86.89 flash 2019-0 Yes [id number] 1{each} 1 Each Uni vers glucose 3-15 daily. Dx ity of scanning 00:00: 11.8, E [place] reader Misc 00 16.2, K Medic al 86.89 Branch flash 2019-0 Yes [id number] 1{each} 1 Each Uni vers glucose 3-15 every 10 ity of sensor Kit 00:00: () 00 days. Dx Medical 11.8, E Branch 16.2, K 86.89 flash 2019-0 Yes [id number] 1{each} 1 Each Uni vers glucose 3-15 daily. Dx ity of scanning 00:00: 11.8, E [place] reader Misc 00 16.2, K Medic al 86.89 Branch flash 2019-0 Yes [id number] 1{each} 1 Each Uni vers glucose 3-15 every 10 ity of sensor Kit 00:00: () 00 days. Dx Medical 11.8, E Branch 16.2, K 86.89 flash 2019-0 Yes [id number] 1{each} 1 Each Uni vers glucose 3-15 daily. Dx ity of scanning 00:00: 11.8, E [place] reader Misc 00 16.2, K Medic al 86.89 Branch flash 2019-0 Yes [id number] 1{each} 1 Each Uni vers glucose 3-15 every 10 ity of sensor Kit 00:00: () 00 days. Dx Medical 11.8, E Branch 16.2, K 86.89 flash 2019-0 Yes [id number] 1{each} 1 Each Uni vers glucose 3-15 daily. Dx ity of scanning 00:00: 11.8, E [place] reader Misc 00 16.2, K Medic al 86.89 Branch flash 2019-0 Yes [id number] 1{each} 1 Each Uni vers glucose 3-15 every 10 ity of sensor Kit 00:00: () 00 days. Dx Medical 11.8, E Branch 16.2, K 86.89 flash 2019-0 Yes [id number] 1{each} 1 Each Uni vers glucose 3-15 daily. Dx ity of scanning 00:00: 11.8, E [place] reader Misc 00 16.2, K Medic al 86.89 Branch flash 2019-0 Yes [id number] 1{each} 1 Each Uni vers glucose 3-15 every 10 ity of sensor Kit 00:00: () 00 days. Dx Medical 11.8, E Branch 16.2, K 86.89 Blood-Gluco 2017-0 Yes Use as Univ ers [...] directed ity of (CONTOUR 00:00: [place] [facility] Blood-Gluco Yes Use as Univ ers se Meter 8-14 directed ity of (CONTOUR 00:00: [place] METER) Misc 00 Medical Branch Blood-Gluco Yes Use as Univ ers se Meter 8-14 directed ity of (CONTOUR 00:00: [place] METER) [facility] Blood-Gluco Yes Use as Univ ers se Meter 8-14 directed ity of (CONTOUR 00:00: [place] METER) [facility] 00 Medical Branch Blood-Gluco Yes Use as Univ ers se Meter 8-14 directed ity of (CONTOUR 00:00: [place] METER) [facility] 00 Medical Branch Blood-Gluco Yes Use as Univ ers se Meter 8-14 directed ity of (CONTOUR 00:00: [place] METER) [facility] 00 Medical Branch Blood-Gluco Yes Use as Univ ers se Meter 8-14 directed ity of (CONTOUR 00:00: [place] METER) [facility] 00 Medical Branch Blood-Gluco Yes Use as Univ ers se Meter 8-14 directed ity of (CONTOUR 00:00: [place] METER) [facility] 00 Medical Branch Blood-Gluco Yes Use as Univ ers se Meter 8-14 directed ity of (CONTOUR 00:00: [place] METER) [facility] 00 Medical Branch Blood-Gluco Yes Use as Univ ers se Meter 8-14 directed ity of (CONTOUR 00:00: [place] METER) [facility] 00 Medical Branch Blood-Gluco Yes Use as Univ ers se Meter 8-14 directed ity of (CONTOUR 00:00: [place] METER) [facility] 00 Medical Branch Blood-Gluco Yes Use as Univ ers se Meter 8-14 directed ity of (CONTOUR 00:00: [place] METER) [facility] 00 Medical Branch Blood-Gluco Yes Use as Univ ers se Meter 8-14 directed ity of (CONTOUR 00:00: [place] METER) [facility] zolpidem Yes 10mg QD Take 10 mg Met hodi (AMBIEN) 5 2-[address] MG tablet 00:00: nightly as [facility] 00 needed for l sleep. zolpidem Yes 10mg QD Take 10 mg [...] 1 [place] en-codeine 2-22 tablet by [facility] (TYLENOL/CO 00:00: mouth DEINE #3) 00 every 4 300-30 mg hours as per tablet needed for Pain. acetaminoph 2013-06 Yes Abscess 1{tbl} Take 1 [place] en-codeine 2-22 tablet by [facility] (TYLENOL/CO 00:00: mouth DEINE #3) 00 every 4 300-30 mg hours as per tablet needed for Pain. acetaminoph 2013-06 Yes Abscess 1{tbl} Take 1 [place] en-codeine 2-22 tablet by [facility] (TYLENOL/CO 00:00: mouth DEINE #3) 00 every 4 300-30 mg hours as per tablet needed for Pain. acetaminoph 2013-06 Yes Abscess 1{tbl} Take 1 [place] en-codeine 2-22 tablet by [facility] (TYLENOL/CO 00:00: mouth DEINE #3) 00 every 4 300-30 mg hours as per tablet needed for Pain. acetaminoph 2013-06 Yes Abscess 1{tbl} Take 1 [place] en-codeine 2-22 tablet by [facility] (TYLENOL/CO 00:00: mouth DEINE #3) 00 every 4 300-30 mg hours as per tablet needed for Pain. acetaminoph 2013-06 Yes Abscess 1{tbl} Take 1 [place] en-codeine 2-22 tablet by [facility] (TYLENOL/CO 00:00: mouth DEINE #3) [...] Take 12.5 [place] thiazide 2-09 mg by [facility] 12.5 mg 23:14: mouth capsule 58 every [...] desvenlafax No 1 Q1D desvenlafa [facility] ine xine Medical succinate succinate succinate ER 25 mg [...] Immunizations Ordered Filled Immunization Date Status Comments [facility] e Immunization Name Name influenza, influenza, 2022-05-08 Completed [facility] Medical unspecified unspecified 00:00:00 formulation formulation Pneumococcal 20 2022-03-31 Completed [facility] of Conjugate, PCV20 00:00:00 [facility] dical (Prevnar 20) Branch SARS-COV-2 COVID-19 2022-03-31 Completed Unive rsity of JASPER-SUCROSE 00:00:00 [facility] VACCINE 12 Y[facility]+, Branch BIVALENT 0.3ML, [...] SARS-COV-2 COVID-19 2022-03-31 Completed Unive rsity of JASEPR-SUCROSE 00:00:00 [place] [facility] VACCINE 12 YRS+, [...] SARS-COV-2 COVID-19 2022-03-31 Completed Unive rsity of JAPSER-SUCROSE 00:00:00 [place] [facility] VACCINE 12 YRS+, [...] YRS+, Branch BIVALENT 0.3ML, IM, (PFIZER ROGER TOP) SARS-COV-2 COVID-19 2021-03-27 Completed Unive rsity of PFIZER VACCINE 00:00:00 [facility] SARS-COV-2 COVID-19 2021-03-27 Completed Unive rsity of PFIZER VACCINE 00:00:00 [facility] Branch SARS-COV-2 COVID-19 2021-03-27 Completed Unive rsity of PFIZER VACCINE 00:00:00 [facility] SARS-COV-2 COVID-19 2021-03-27 Completed Unive rsity of PFIZER VACCINE 00:00:00 [facility] Branch SARS-COV-2 COVID-19 2021-03-27 Completed Unive rsity of PFIZER VACCINE 00:00:00 [facility] SARS-COV-2 COVID-19 2021-03-27 Completed Unive rsity of PFIZER VACCINE 00:00:00 [facility] SARS-COV-2 COVID-19 2021-03-27 Completed Unive rsity of PFIZER VACCINE 00:00:00 [facility] SARS-COV-2 COVID-19 2021-03-27 Completed Unive rsity of PFIZER VACCINE 00:00:00 [facility] SARS-COV-2 COVID-19 2021-03-27 Completed Unive rsity of PFIZER VACCINE 00:00:00 [facility] SARS-COV-2 COVID-19 2021-03-27 Completed Unive rsity of PFIZER VACCINE 00:00:00 [facility] SARS-COV-2 COVID-19 2021-03-27 Completed Unive rsity of PFIZER VACCINE 00:00:00 [facility] SARS-COV-2 COVID-19 2021-03-27 Completed Unive rsity of PFIZER VACCINE 00:00:00 [facility] SARS-COV-2 COVID-19 2021-03-27 Completed Unive rsity of PFIZER VACCINE 00:00:00 [facility] SARS-COV-2 COVID-19 2021-03-27 Completed Unive rsity of PFIZER VACCINE 00:00:00 [facility] SARS-COV-2 COVID-19 2021-03-27 Completed Unive rsity of PFIZER VACCINE 00:00:00 [facility] SARS-COV-2 COVID-19 2021-03-27 Completed Unive rsity of PFIZER VACCINE 00:00:00 [facility] Branch SARS-COV-2 COVID-19 2021-03-27 Completed Unive rsity of PFIZER VACCINE 00:00:00 [facility] Branch SARS-COV-2 COVID-19 2021-03-27 Completed Unive rsity of PFIZER VACCINE 00:00:00 [facility] Branch SARS-COV-2 COVID-19 2021-03-27 Completed Unive rsity of PFIZER VACCINE 00:00:00 [facility] Branch SARS-COV-2 COVID-19 2021-03-27 Completed Unive rsity of PFIZER VACCINE 00:00:00 [facility] Branch SARS-COV-2 COVID-19 2021-03-27 Completed [facility] PFIZER VACCINE 00:00:00 [facility] SARS-COV-2 COVID-19 2021-03-27 Completed [facility] PFIZER VACCINE 00:00:00 [facility] SARS-COV-2 COVID-19 2021-03-27 Completed [facility] PFIZER VACCINE 00:00:00 [facility] SARS-COV-2 COVID-19 2021-03-27 Completed [facility] PFIZER VACCINE 00:00:00 [facility] SARS-COV-2 COVID-19 2021-03-27 Completed [facility] PFIZER VACCINE 00:00:00 [facility] SARS-COV-2 COVID-19 2021-03-27 Completed [facility] PFIZER VACCINE 00:00:00 [facility] SARS-COV-2 COVID-19 2021-03-27 Completed [facility] PFIZER VACCINE 00:00:00 [facility] SARS-COV-2 COVID-19 2021-03-27 Completed [facility] PFIZER VACCINE 00:00:00 [facility] SARS-COV-2 COVID-19 2021-03-27 Completed [facility] PFIZER VACCINE 00:00:00 [facility] SARS-COV-2 COVID-19 2021-03-27 Completed [facility] PFIZER VACCINE 00:00:00 [facility] SARS-COV-2 COVID-19 2021-03-27 Completed [facility] PFIZER VACCINE 00:00:00 [facility] SARS-COV-2 COVID-19 2021-03-27 Completed [facility] PFIZER VACCINE 00:00:00 [facility] SARS-COV-2 COVID-19 2021-03-27 Completed [facility] PFIZER VACCINE 00:00:00 [facility] SARS-COV-2 COVID-19 2021-03-27 Completed [facility] PFIZER VACCINE 00:00:00 [facility] SARS-COV-2 COVID-19 2021-03-27 Completed [facility] PFIZER VACCINE 00:00:00 [facility] SARS-COV-2 COVID-19 2021-03-27 Completed [facility] PFIZER VACCINE 00:00:00 [facility] SARS-COV-2 COVID-19 2021-03-27 Completed [facility] PFIZER VACCINE 00:00:00 [facility] SARS-COV-2 COVID-19 2021-03-27 Completed [facility] PFIZER VACCINE 00:00:00 [facility] SARS-COV-2 COVID-19 2021-03-27 Completed [facility] PFIZER VACCINE 00:00:00 [facility] SARS-COV-2 COVID-19 2021-03-27 Completed [facility] PFIZER VACCINE 00:00:00 [facility] SARS-COV-2 COVID-19 2021-03-27 Completed [facility] PFIZER VACCINE 00:00:00 [facility] SARS-COV-2 COVID-19 2021-03-27 Completed [facility] PFIZER VACCINE 00:00:00 [facility] SARS-COV-2 COVID-19 2021-03-27 Completed [facility] PFIZER VACCINE 00:00:00 [facility] SARS-COV-2 COVID-19 2021-03-27 Completed [facility] PFIZER VACCINE 00:00:00 [facility] SARS-COV-2 COVID-19 2021-03-27 Completed [facility] PFIZER VACCINE 00:00:00 [facility] SARS-COV-2 COVID-19 2021-03-27 Completed [facility] PFIZER VACCINE 00:00:00 [facility] SARS-COV-2 COVID-19 2021-03-27 Completed [facility] PFIZER VACCINE 00:00:00 [facility] SARS-COV-2 COVID-19 2021-03-27 Completed [facility] PFIZER VACCINE 00:00:00 [facility] SARS-COV-2 COVID-19 2021-03-27 Completed [facility] PFIZER VACCINE 00:00:00 [facility] SARS-COV-2 COVID-19 2021-03-27 Completed [facility] PFIZER VACCINE 00:00:00 [facility] SARS-COV-2 COVID-19 2021-03-27 Completed [facility] PFIZER VACCINE 00:00:00 [facility] SARS-COV-2 COVID-19 2021-03-27 Completed [facility] PFIZER VACCINE 00:00:00 [facility] SARS-COV-2 COVID-19 2021-03-27 Completed [facility] PFIZER VACCINE 00:00:00 [facility] SARS-COV-2 COVID-19 2021-03-27 Completed [facility] PFIZER VACCINE 00:00:00 [facility] SARS-COV-2 COVID-19 2021-03-27 Completed [facility] PFIZER VACCINE 00:00:00 [facility] SARS-COV-2 COVID-19 2021-03-27 Completed [facility] PFIZER VACCINE 00:00:00 [facility] SARS-COV-2 COVID-19 2021-03-27 Completed [facility] PFIZER VACCINE 00:00:00 [facility] SARS-COV-2 COVID-19 2021-03-27 Completed [facility] PFIZER VACCINE 00:00:00 [facility] SARS-COV-2 COVID-19 2021-03-27 Completed [facility] PFIZER VACCINE 00:00:00 [facility] SARS-COV-2 COVID-19 2021-03-27 Completed [facility] PFIZER VACCINE 00:00:00 [facility] TDAP 2021-03-01 Completed [facility] 00:00:00 [facility] TDAP 2021-03-01 Completed [facility] 00[facility]00:00 [facility] TDAP 2021-03-01 Completed [facility] 00:00:00 [facility] TDAP 2021-03-01 Completed [facility] 00:00:00 [facility] TDAP 2021-03-01 Completed [facility] 00:00:00 [facility] TD 2021-03-01 Completed [facility] 00:00:00 [facility] TD 2021-03-01 Completed [facility] 00:00:00 [facility] TD 2021-03-01 Completed [facility] 00:00:00 [facility] TD 2021-03-01 Completed [facility] 00:00:00 [facility] TD 2021-03-01 Completed [facility] 00:00:00 [facility] TD 2021-03-01 Completed [facility] 00:00:00 [facility] TD 2021-03-01 Completed [facility] 00:00:00 [facility] TD 2021-03-01 Completed [facility] 00[facility]00:00 [facility] TD 2021-03-01 Completed [facility] 00:00:00 [facility] TD 2021-03-01 Completed [facility] 00:00:00 [facility] TD 2021-03-01 Completed [facility] 00:00:00 [facility] TD 2021-03-01 Completed [facility] 00:00:00 [facility] TD 2021-03-01 Completed [facility] 00:00:00 [facility] TD 2021-03-01 Completed [facility] 00:00:00 [facility] TD 2021-03-01 Completed [facility] 00:00:00 [facility] TD 2021-03-01 Completed [facility] 00:00:00 [facility] TD 2021-03-01 Completed [facility] 00:00:00 [facility] TD 2021-03-01 Completed [facility] 00:00:00 [facility] TDAP 2021-03-01 Completed [facility] 00:00:00 [facility] TD 2021-03-01 Completed [facility] 00:00:00 [facility] TDAP 2021-03-01 Completed [facility] 00:00:00 [facility] TD 2021-03-01 Completed [facility] 00:00:00 [facility] TD 2021-03-01 Completed [facility] 00:00:00 [facility] TDAP 2021-03-01 Completed [facility] 00[facility]00:00 [facility] TD 2021-03-01 Completed [facility] 00:00:00 [facility] TDAP 2021-03-01 Completed [facility] 00:00:00 [facility] 2021-03-01 Completed [facility] 00:00:00 [facility] TD 2021-03-01 Completed [facility] 00:00:00 [facility] TD 2021-03-01 Completed [facility] 00:00:00 [facility] TD 2021-03-01 Completed [facility] 00:00:00 [facility] 2021-03-01 Completed [facility] 00:00:00 [facility] TD 2021-03-01 Completed [facility] 00:00:00 [facility] TD 2021-03-01 Completed [facility] 00:00:00 [facility] TD 2021-03-01 Completed [facility] 00:00:00 [facility] 2021-03-01 Completed [facility] 00:00:00 [facility] 2021-03-01 Completed [facility] 00:00:00 [facility] 2021-03-01 Completed [facility] 00:00:00 [facility] 2021-03-01 Completed [facility] 00:00:00 [facility] TD 2021-03-01 Completed [facility] 00:00:00 [facility] TD 2021-03-01 Completed [facility] 00:00:00 [facility] TD 2021-03-01 Completed [facility] 00:00:00 [facility] TD 2021-03-01 Completed [facility] 00:00:00 [facility] TD 2021-03-01 Completed [facility] 00:00:00 [facility] TD 2021-03-01 Completed [facility] 00:00:00 [facility] TD 2021-03-01 Completed [facility] 00:00:00 [facility] TD 2021-03-01 Completed [facility] 00:00:00 [facility] TD 2021-03-01 Completed [facility] 00:00:00 [facility] TD 2021-03-01 Completed [facility] 00:00:00 [facility] TD 2021-03-01 Completed [facility] 00:00:00 [facility] TD 2021-03-01 Completed [facility] 00:00:00 [facility] TD 2021-03-01 Completed [facility] 00:00:00 [facility] TD 2021-03-01 Completed [facility] 00:00:00 [facility] TDAP 2021-03-01 Completed [facility] 00:00:00 [facility] TDAP 2021-03-01 Completed [facility] 00:00:00 [facility] TDAP 2021-03-01 Completed [facility] 00:00:00 [facility] TDAP 2021-03-01 Completed [facility] 00:00:00 [facility] TDAP 2021-03-01 Completed [facility] 00:00:00 [facility] TDAP 2021-03-01 Completed [facility] 00:00:00 [facility] TDAP 2021-03-01 Completed [facility] 00:00:00 [facility] TDAP 2021-03-01 Completed [facility] 00:00:00 [facility] TDAP 2021-03-01 Completed [facility] 00:00:00 [facility] TDAP 2021-03-01 Completed [facility] 00:00:00 [facility] TDAP 2021-03-01 Completed [facility] 00:00:00 [facility] TDAP 2021-03-01 Completed [facility] 00:00:00 [facility] TDAP 2021-03-01 Completed [facility] 00:00:00 [facility] Pfizer COVID-19 Pfizer COVID-19 2021-01-21 Completed Vaccine Vaccine 00:00:00 SARS-COV-2 COVID-19 2020-07-20 Completed [facility] PFIZER VACCINE 00:00:00 [facility] SARS-COV-2 COVID-19 2020-07-20 Completed [facility] PFIZER VACCINE 00:00:00 [facility] SARS-COV-2 COVID-19 2020-07-20 Completed [facility] PFIZER VACCINE 00:00:00 [facility] SARS-COV-2 COVID-19 2020-07-20 Completed [facility] PFIZER VACCINE 00:00:00 [facility] SARS-COV-2 COVID-19 2020-07-20 Completed [facility] PFIZER VACCINE 00:00:00 [facility] SARS-COV-2 COVID-19 2020-07-20 Completed [facility] PFIZER VACCINE 00:00:00 [facility] SARS-COV-2 COVID-19 2020-07-20 Completed [facility] PFIZER VACCINE 00:00:00 [facility] SARS-COV-2 COVID-19 2020-07-20 Completed [facility] PFIZER VACCINE 00:00:00 [facility] SARS-COV-2 COVID-19 2020-07-20 Completed [facility] PFIZER VACCINE 00:00:00 [facility] SARS-COV-2 COVID-19 2020-07-20 Completed [facility] PFIZER VACCINE 00:00:00 [facility] SARS-COV-2 COVID-19 2020-07-20 Completed [facility] PFIZER VACCINE 00:00:00 [facility] SARS-COV-2 COVID-19 2020-07-20 Completed [facility] PFIZER VACCINE 00:00:00 [facility] SARS-COV-2 COVID-19 2020-07-20 Completed [facility] PFIZER VACCINE 00:00:00 [facility] SARS-COV-2 COVID-19 2020-07-20 Completed [facility] PFIZER VACCINE 00:00:00 [facility] SARS-COV-2 COVID-19 2020-07-20 Completed [facility] PFIZER VACCINE 00:00:00 [facility] SARS-COV-2 COVID-19 2020-07-20 Completed [facility] PFIZER VACCINE 00:00:00 [facility] SARS-COV-2 COVID-19 2020-07-20 Completed [facility] PFIZER VACCINE 00:00:00 [facility] SARS-COV-2 COVID-19 2020-07-20 Completed [facility] PFIZER VACCINE 00:00:00 [facility] SARS-COV-2 COVID-19 2020-07-20 Completed [facility] PFIZER VACCINE 00:00:00 [facility] SARS-COV-2 COVID-19 2020-07-20 Completed [facility] PFIZER VACCINE 00:00:00 [facility] SARS-COV-2 COVID-19 2020-07-20 Completed [facility] PFIZER VACCINE 00:00:00 [facility] SARS-COV-2 COVID-19 2020-07-20 Completed [facility] PFIZER VACCINE 00:00:00 [facility] SARS-COV-2 COVID-19 2020-07-20 Completed [facility] PFIZER VACCINE 00:00:00 [facility] SARS-COV-2 COVID-19 2020-07-20 Completed [facility] PFIZER VACCINE 00:00:00 [facility] SARS-COV-2 COVID-19 2020-07-20 Completed [facility] PFIZER VACCINE 00:00:00 [facility] SARS-COV-2 COVID-19 2020-07-20 Completed [facility] PFIZER VACCINE 00:00:00 [facility] SARS-COV-2 COVID-19 2020-07-20 Completed [facility] PFIZER VACCINE 00:00:00 [facility] SARS-COV-2 COVID-19 2020-07-20 Completed [facility] PFIZER VACCINE 00:00:00 [facility] SARS-COV-2 COVID-19 2020-07-20 Completed [facility] PFIZER VACCINE 00:00:00 [facility] SARS-COV-2 COVID-19 2020-07-20 Completed [facility] PFIZER VACCINE 00:00:00 [facility] SARS-COV-2 COVID-19 2020-07-20 Completed [facility] PFIZER VACCINE 00:00:00 [facility] SARS-COV-2 COVID-19 2020-07-20 Completed [facility] PFIZER VACCINE 00:00:00 [facility] SARS-COV-2 COVID-19 2020-07-20 Completed [facility] PFIZER VACCINE 00:00:00 [facility] SARS-COV-2 COVID-19 2020-07-20 Completed [facility] PFIZER VACCINE 00:00:00 [facility] SARS-COV-2 COVID-19 2020-07-20 Completed [facility] PFIZER VACCINE 00:00:00 [facility] SARS-COV-2 COVID-19 2020-07-20 Completed [facility] PFIZER VACCINE 00:00:00 [facility] SARS-COV-2 COVID-19 2020-07-20 Completed [facility] PFIZER VACCINE 00:00:00 [facility] SARS-COV-2 COVID-19 2020-07-20 Completed [facility] PFIZER VACCINE 00:00:00 [facility] SARS-COV-2 COVID-19 2020-07-20 Completed [facility] PFIZER VACCINE 00:00:00 [facility] SARS-COV-2 COVID-19 2020-07-20 Completed [facility] PFIZER VACCINE 00:00:00 [facility] SARS-COV-2 COVID-19 2020-07-20 Completed [facility] PFIZER VACCINE 00:00:00 [facility] SARS-COV-2 COVID-19 2020-07-20 Completed [facility] PFIZER VACCINE 00:00:00 [facility] SARS-COV-2 COVID-19 2020-07-20 Completed [facility] PFIZER VACCINE 00:00:00 [facility] SARS-COV-2 COVID-19 2020-07-20 Completed [facility] PFIZER VACCINE 00:00:00 [facility] SARS-COV-2 COVID-19 2020-07-20 Completed [facility] PFIZER VACCINE 00:00:00 [facility] SARS-COV-2 COVID-19 2020-07-20 Completed [facility] PFIZER VACCINE 00:00:00 [facility] SARS-COV-2 COVID-19 2020-07-20 Completed [facility] PFIZER VACCINE 00:00:00 [facility] SARS-COV-2 COVID-19 2020-07-20 Completed [facility] PFIZER VACCINE 00:00:00 [facility] SARS-COV-2 COVID-19 2020-07-20 Completed [facility] PFIZER VACCINE 00:00:00 [facility] SARS-COV-2 COVID-19 2020-07-20 Completed [facility] PFIZER VACCINE 00:00:00 [facility] SARS-COV-2 COVID-19 2020-07-20 Completed [facility] PFIZER VACCINE 00:00:00 [facility] SARS-COV-2 COVID-19 2020-07-20 Completed [facility] PFIZER VACCINE 00:00:00 [facility] SARS-COV-2 COVID-19 2020-07-20 Completed [facility] PFIZER VACCINE 00:00:00 [facility] SARS-COV-2 COVID-19 2020-07-20 Completed [facility] PFIZER VACCINE 00:00:00 [facility] SARS-COV-2 COVID-19 2020-07-20 Completed [facility] PFIZER VACCINE 00:00:00 [facility] SARS-COV-2 COVID-19 2020-07-20 Completed [facility] PFIZER VACCINE 00:00:00 [facility] SARS-COV-2 COVID-19 2020-07-20 Completed [facility] PFIZER VACCINE 00:00:00 [facility] SARS-COV-2 COVID-19 2020-07-20 Completed [facility] PFIZER VACCINE 00:00:00 [facility] SARS-COV-2 COVID-19 2020-07-20 Completed [facility] PFIZER VACCINE 00:00:00 [facility] SARS-COV-2 COVID-19 2020-07-20 Completed [facility] PFIZER VACCINE 00:00:00 [facility] SARS-COV-2 COVID-19 2020-07-20 Completed [facility] PFIZER VACCINE 00:00:00 [facility] SARS-COV-2 COVID-19 2020-07-20 Completed [facility] PFIZER VACCINE 00:00:00 [facility] SARS-COV-2 COVID-19 2020-07-20 Completed [facility] PFIZER VACCINE 00:00:00 [facility] SARS-COV-2 COVID-19 2020-07-20 Completed [facility] PFIZER VACCINE 00:00:00 [facility] SARS-COV-2 COVID-19 2020-07-20 Completed [facility] PFIZER VACCINE 00:00:00 [facility] SARS-COV-2 COVID-19 2020-07-20 Completed [facility] PFIZER VACCINE 00:00:00 [facility] SARS-COV-2 COVID-19 2020-07-20 Completed [facility] PFIZER VACCINE 00:00:00 [facility] SARS-COV-2 COVID-19 2020-07-20 Completed [facility] PFIZER VACCINE 00:00:00 [facility] SARS-COV-2 COVID-19 2020-07-20 Completed [facility] PFIZER VACCINE 00:00:00 [facility] SARS-COV-2 COVID-19 2020-07-20 Completed [facility] PFIZER VACCINE 00:00:00 [facility] Pfizer COVID-19 Pfizer COVID-19 2020-07-20 Completed Vaccine Vaccine 00:00:00 SARS-COV-2 COVID-19 2020-06-29 Completed [facility] PFIZER VACCINE 00:00:00 [facility] SARS-COV-2 COVID-19 2020-06-29 Completed [facility] PFIZER VACCINE 00:00:00 [facility] SARS-COV-2 COVID-19 2020-06-29 Completed [facility] PFIZER VACCINE 00:00:00 [facility] SARS-COV-2 COVID-19 2020-06-29 Completed [facility] PFIZER VACCINE 00:00:00 [facility] SARS-COV-2 COVID-19 2020-06-29 Completed [facility] PFIZER VACCINE 00:00:00 [facility] SARS-COV-2 COVID-19 2020-06-29 Completed [facility] PFIZER VACCINE 00:00:00 [facility] SARS-COV-2 COVID-19 2020-06-29 Completed [facility] PFIZER VACCINE 00:00:00 [facility] SARS-COV-2 COVID-19 2020-06-29 Completed [facility] PFIZER VACCINE 00:00:00 [facility] SARS-COV-2 COVID-19 2020-06-29 Completed [facility] PFIZER VACCINE 00:00:00 [facility] SARS-COV-2 COVID-19 2020-06-29 Completed [facility] PFIZER VACCINE 00:00:00 [facility] SARS-COV-2 COVID-19 2020-06-29 Completed [facility] PFIZER VACCINE 00:00:00 [facility] SARS-COV-2 COVID-19 2020-06-29 Completed [facility] PFIZER VACCINE 00:00:00 [facility] SARS-COV-2 COVID-19 2020-06-29 Completed [facility] PFIZER VACCINE 00:00:00 [facility] SARS-COV-2 COVID-19 2020-06-29 Completed [facility] PFIZER VACCINE 00:00:00 [facility] SARS-COV-2 COVID-19 2020-06-29 Completed [facility] PFIZER VACCINE 00:00:00 [facility] SARS-COV-2 COVID-19 2020-06-29 Completed [facility] PFIZER VACCINE 00:00:00 [facility] SARS-COV-2 COVID-19 2020-06-29 Completed [facility] PFIZER VACCINE 00:00:00 [facility] SARS-COV-2 COVID-19 2020-06-29 Completed [facility] PFIZER VACCINE 00:00:00 [facility] SARS-COV-2 COVID-19 2020-06-29 Completed [facility] PFIZER VACCINE 00:00:00 [facility] SARS-COV-2 COVID-19 2020-06-29 Completed [facility] PFIZER VACCINE 00:00:00 [facility] SARS-COV-2 COVID-19 2020-06-29 Completed [facility] PFIZER VACCINE 00:00:00 [facility] SARS-COV-2 COVID-19 2020-06-29 Completed [facility] PFIZER VACCINE 00:00:00 [facility] SARS-COV-2 COVID-19 2020-06-29 Completed [facility] PFIZER VACCINE 00:00:00 [facility] SARS-COV-2 COVID-19 2020-06-29 Completed [facility] PFIZER VACCINE 00:00:00 [facility] SARS-COV-2 COVID-19 2020-06-29 Completed [facility] PFIZER VACCINE 00:00:00 [facility] SARS-COV-2 COVID-19 2020-06-29 Completed [facility] PFIZER VACCINE 00:00:00 [facility] SARS-COV-2 COVID-19 2020-06-29 Completed [facility] PFIZER VACCINE 00:00:00 [facility] SARS-COV-2 COVID-19 2020-06-29 Completed [facility] PFIZER VACCINE 00:00:00 [facility] SARS-COV-2 COVID-19 2020-06-29 Completed [facility] PFIZER VACCINE 00:00:00 [facility] SARS-COV-2 COVID-19 2020-06-29 Completed [facility] PFIZER VACCINE 00:00:00 [facility] SARS-COV-2 COVID-19 2020-06-29 Completed [facility] PFIZER VACCINE 00:00:00 [facility] SARS-COV-2 COVID-19 2020-06-29 Completed [facility] PFIZER VACCINE 00:00:00 [facility] SARS-COV-2 COVID-19 2020-06-29 Completed [facility] PFIZER VACCINE 00:00:00 [facility] SARS-COV-2 COVID-19 2020-06-29 Completed [facility] PFIZER VACCINE 00:00:00 [facility] SARS-COV-2 COVID-19 2020-06-29 Completed [facility] PFIZER VACCINE 00:00:00 [facility] SARS-COV-2 COVID-19 2020-06-29 Completed [facility] PFIZER VACCINE 00:00:00 [facility] SARS-COV-2 COVID-19 2020-06-29 Completed [facility] PFIZER VACCINE 00:00:00 [facility] SARS-COV-2 COVID-19 2020-06-29 Completed [facility] PFIZER VACCINE 00:00:00 [facility] SARS-COV-2 COVID-19 2020-06-29 Completed [facility] PFIZER VACCINE 00:00:00 [facility] SARS-COV-2 COVID-19 2020-06-29 Completed [facility] PFIZER VACCINE 00:00:00 [facility] SARS-COV-2 COVID-19 2020-06-29 Completed [facility] PFIZER VACCINE 00:00:00 [facility] SARS-COV-2 COVID-19 2020-06-29 Completed [facility] PFIZER VACCINE 00:00:00 [facility] SARS-COV-2 COVID-19 2020-06-29 Completed [facility] PFIZER VACCINE 00:00:00 [facility] [facility] SARS[facility]COV-2 COVID-19 2020-06-29 Completed [facility] of PFIZER VACCINE 00:00:00 [facility] SARS-COV-2 COVID-19 2020-06-29 Completed [facility] of PFIZER VACCINE 00:00:00 [facility] SARS-COV-2 COVID-19 2020-06-29 Completed [facility] of PFIZER VACCINE 00:00:00 [facility] SARS-COV-2 COVID-19 2020-06-29 Completed [facility] of PFIZER VACCINE 00:00:00 [facility] SARS-COV-2 COVID-19 2020-06-29 Completed [facility] of PFIZER VACCINE 00:00:00 [facility] SARS-COV-2 COVID-19 2020-06-29 Completed [facility] of PFIZER VACCINE 00:00:00 [facility] SARS-COV-2 COVID-19 2020-06-29 Completed [facility] of PFIZER VACCINE 00:00:00 [facility] SARS-COV-2 COVID-19 2020-06-29 Completed [facility] of PFIZER VACCINE 00:00:00 [facility] SARS-COV-2 COVID-19 2020-06-29 Completed [facility] of PFIZER VACCINE 00:00:00 [facility] SARS-COV-2 COVID-19 2020-06-29 Completed [facility] of PFIZER VACCINE 00:00:00 [facility] SARS-COV-2 COVID-19 2020-06-29 Completed [facility] of PFIZER VACCINE 00:00:00 [facility] SARS-COV-2 COVID-19 2020-06-29 Completed [facility] of PFIZER VACCINE 00:00:00 [facility] SARS-COV-2 COVID-19 2020-06-29 Completed [facility] of PFIZER VACCINE 00:00:00 [facility] SARS-COV-2 COVID-19 2020-06-29 Completed [facility] of PFIZER VACCINE 00:00:00 [facility] SARS-COV-2 COVID-19 2020-06-29 Completed [facility] of PFIZER VACCINE 00:00:00 [facility] SARS-COV-2 COVID-19 2020-06-29 Completed [facility] of PFIZER VACCINE 00:00:00 [facility] SARS-COV-2 COVID-19 2020-06-29 Completed [facility] of PFIZER VACCINE 00:00:00 [facility] SARS-COV-2 COVID-19 2020-06-29 Completed [facility] of PFIZER VACCINE 00:00:00 [facility] SARS-COV-2 COVID-19 2020-06-29 Completed [facility] of PFIZER VACCINE 00:00:00 [facility] SARS-COV-2 COVID-19 2020-06-29 Completed [facility] of PFIZER VACCINE 00:00:00 [facility] SARS-COV-2 COVID-19 2020-06-29 Completed [facility] of PFIZER VACCINE 00:00:00 [facility] SARS-COV-2 COVID-19 2020-06-29 Completed [facility] of PFIZER VACCINE 00:00:00 [facility] SARS-COV-2 COVID-19 2020-06-29 Completed [facility] of PFIZER VACCINE 00:00:00 [facility] SARS-COV-2 COVID-19 2020-06-29 Completed [facility] of PFIZER VACCINE 00:00:00 [facility] SARS-COV-2 COVID-19 2020-06-29 Completed [facility] of PFIZER VACCINE 00:00:00 [facility] SARS-COV-2 COVID-19 2020-06-29 Completed [facility] of PFIZER VACCINE 00:00:00 [facility] SARS-COV-2 COVID-19 2020-06-29 Completed [facility] of PFIZER VACCINE 00:00:00 [facility] Pfizer COVID-19 Pfizer COVID-19 2020-06-29 Completed Vaccine Vaccine 00:00:00 Influenza Virus 2018-04-12 Completed [facility]it [facility] Vaccine Quad .5 mL 00:00:00 [facility] Influenza Virus 2018-04-12 Completed [facility] Vaccine Quad .5 mL 00:00:00 [facility] Influenza Virus [...] y of Vaccine Quad .5 mL 00:00:00 [facility] Influenza Virus [...] y of Vaccine Quad .5 mL 00:00:00 [facility] Influenza Virus 2018-04-12 Completed [facility] of Vaccine Quad .5 mL 00:00:00 [facility] Influenza Virus 2014-04-12 Completed [facility] of Vaccine Quad IM 3+ 00:00:[address] [facility] [place] [place] Branch Influenza Virus 2014-04-12 Completed [facility] of Vaccine Quad IM 3+ 00:00:[address] [facility] [place] [place] Branch Influenza Virus 2014-04-12 Completed [facility] of Vaccine Quad IM 3+ 00:00:[address] [facility] [place] [place] Branch Influenza Virus 2014-04-12 Completed [facility] of Vaccine Quad IM 3+ 00:00:00 [facility] Influenza Virus 2014-04-12 Completed [facility]it [facility] of Vaccine Quad IM 3+ 00:00:00 [facility] Influenza Virus 2014-04-12 Completed [facility] of Vaccine Quad IM 3+ 00:00:00 [facility] Influenza Virus 2014-04-12 Completed [facility] of Vaccine Quad IM 3+ 00:00:00 [facility] Influenza Virus 2014-04-12 Completed [facility] of Vaccine Quad IM 3+ 00:00:00 [facility] Influenza Virus 2014-04-12 Completed [facility] of Vaccine Quad IM 3+ 00:00:00 [facility] Influenza Virus 2014-04-12 Completed [facility] of Vaccine Quad IM 3+ 00:00:00 [facility] Influenza Virus 2014-04-12 Completed [facility] of Vaccine Quad IM 3+ 00:00:00 [facility] Influenza Virus 2014-04-12 Completed [facility] of Vaccine Quad IM 3+ 00:00:00 [facility] Influenza Virus 2014-04-12 Completed [facility] of Vaccine Quad IM 3+ 00:00:00 [facility] Influenza Virus 2014-04-12 Completed [facility] of Vaccine Quad IM 3+ 00:00:00 [facility] Influenza Virus 2014-04-12 Completed [facility] of Vaccine Quad IM 3+ 00:00:00 [facility] Influenza Virus 2014-04-12 Completed [facility] of Vaccine Quad IM 3+ 00:00:00 [facility] Influenza Virus 2014-04-12 Completed [facility] of Vaccine Quad IM 3+ 00:00:00 [facility] Influenza Virus 2014-04-12 Completed [facility] of Vaccine Quad IM 3+ 00:00:00 [facility] Influenza Virus 2014-04-12 Completed [facility] of Vaccine Quad IM 3+ 00:00:00 [facility] Influenza Virus 2014-04-12 Completed [facility] of Vaccine Quad IM 3+ 00:00:00 [facility] Influenza Virus 2014-04-12 Completed [facility] of Vaccine Quad IM 3+ 00:00:00 [facility] Influenza Virus 2014-04-12 Completed [facility] of Vaccine Quad IM 3+ 00:00:00 [facility] Influenza Virus 2014-04-12 Completed [facility] of Vaccine Quad IM 3+ 00:00:00 [facility] Influenza Virus 2014-04-12 Completed [facility] of Vaccine Quad IM 3+ 00:00:00 [facility] Influenza Virus 2014-04-12 Completed [facility] of Vaccine Quad IM 3+ 00:00:00 [facility] Influenza Virus 2014-04-12 Completed [facility] of Vaccine Quad IM 3+ 00:00:00 [facility] Influenza Virus 2014-04-12 Completed [facility] of Vaccine Quad IM 3+ 00:00:00 [facility] Influenza Virus 2014-04-12 Completed [facility] of Vaccine Quad IM 3+ 00:00:00 [facility] Influenza Virus 2014-04-12 Completed [facility] of Vaccine Quad IM 3+ 00:00:00 [facility] Influenza Virus 2014-04-12 Completed [facility] of Vaccine Quad IM 3+ 00:00:00 [facility] Influenza Virus 2014-04-12 Completed [facility] of Vaccine Quad IM 3+ 00:00:00 [facility] Influenza Virus 2014-04-12 Completed [facility] of Vaccine Quad IM 3+ 00:00:00 [facility] Influenza Virus 2014-04-12 Completed [facility] of Vaccine Quad IM 3+ 00:00:00 [facility] Influenza Virus 2014-04-12 Completed [facility] of Vaccine Quad IM 3+ 00:00:00 [facility] Influenza Virus 2014-04-12 Completed [facility] of Vaccine Quad IM 3+ 00:00:00 [facility] Influenza Virus 2014-04-12 Completed [facility] of Vaccine Quad IM 3+ 00:00:00 [facility] Influenza Virus 2014-04-12 Completed [facility] of Vaccine Quad IM 3+ 00:00:00 [facility] Influenza Virus 2014-04-12 Completed [facility] of Vaccine Quad IM 3+ 00:00:00 [facility] Influenza Virus 2014-04-12 Completed [facility] of Vaccine Quad IM 3+ 00:00:00 [facility] Influenza Virus 2014-04-12 Completed [facility] of Vaccine Quad IM 3+ 00:00:00 [facility] Influenza Virus 2014-04-12 Completed [facility] of Vaccine Quad IM 3+ 00:00:00 [facility] Influenza Virus 2014-04-12 Completed [facility] of Vaccine Quad IM 3+ 00:00:00 [facility] Influenza Virus 2014-04-12 Completed [facility] of Vaccine Quad IM 3+ 00:00:00 [facility] Influenza Virus 2014-04-12 Completed [facility] of Vaccine Quad IM 3+ 00:00:00 [facility] Influenza Virus 2014-04-12 Completed [facility] of Vaccine Quad IM 3+ 00:00:00 [facility] Influenza Virus 2014-04-12 Completed [facility] of Vaccine Quad IM 3+ 00:00:00 [facility] Influenza Virus 2014-04-12 Completed [facility] of Vaccine Quad IM 3+ 00:00:00 [facility] Influenza Virus 2014-04-12 Completed [facility] of Vaccine Quad IM 3+ 00:00:00 [facility] Influenza Virus 2014-04-12 Completed [facility] of Vaccine Quad IM 3+ 00:00:00 [facility] Influenza Virus 2014-04-12 Completed [facility] of Vaccine Quad IM 3+ 00:00:00 [facility] Influenza Virus 2014-04-12 Completed [facility] of Vaccine Quad IM 3+ 00:00:00 [facility] Influenza Virus 2014-04-12 Completed [facility] of Vaccine Quad IM 3+ 00:00:00 [facility] Influenza Virus 2014-04-12 Completed [facility] of Vaccine Quad IM 3+ 00:00:00 [facility] Influenza Virus 2014-04-12 Completed [facility] of Vaccine Quad IM 3+ 00:00:00 [facility] Influenza Virus 2014-04-12 Completed [facility] of Vaccine Quad IM 3+ 00:00:00 [facility] Influenza Virus 2014-04-12 Completed [facility] of Vaccine Quad IM 3+ 00:00:00 [facility] Influenza Virus 2014-04-12 Completed [facility] of Vaccine Quad IM 3+ 00:00:00 [facility] Influenza Virus 2014-04-12 Completed [facility] of Vaccine Quad IM 3+ 00:00:00 [facility] Influenza Virus 2014-04-12 Completed [facility] of Vaccine Quad IM 3+ 00:00:00 [facility] Influenza Virus 2014-04-12 Completed [facility] of Vaccine Quad IM 3+ 00:00:00 [facility] Influenza Virus 2014-04-12 Completed [facility] of Vaccine Quad IM 3+ 00:00:00 [facility] Influenza Virus 2014-04-12 Completed [facility] of Vaccine Quad IM 3+ 00:00:00 [facility] Influenza Virus 2014-04-12 Completed [facility] of Vaccine Quad IM 3+ 00:00:00 [facility] Influenza Virus 2014-04-12 Completed [facility] of Vaccine Quad IM 3+ 00:00:00 [facility] Influenza Virus 2014-04-12 Completed [facility] of Vaccine Quad IM 3+ 00:00:00 [facility] Influenza Virus 2014-04-12 Completed [facility] of Vaccine Quad IM 3+ 00:00:00 [facility] Influenza Virus 2014-04-12 Completed [facility] of Vaccine Quad IM 3+ 00:00:00 [facility] Influenza Virus 2014-04-12 Completed [facility] of Vaccine Quad IM 3+ 00:00:00 [facility] Influenza Virus 2014-04-12 Completed [facility] of Vaccine Quad IM 3+ 00:00:00 [facility] Influenza Virus 2014-04-12 Completed [facility] of Vaccine Quad IM 3+ 00:00:00 [facility] Pneumococcal 2013-04-22 Completed [facility] o f Polysaccharide, 00:00:00 [place] [facility] PPSV23 (PNEUMOVAX) Branch Influenza Virus 2013-04-22 Completed [facility] of Vaccine (3+ yrs) 00:00:00 [facility] Pneumococcal 2013-04-22 Completed University o f Polysaccharide, 00:00:00 [place] [facility] PPSV23 (PNEUMOVAX) Branch Influenza Virus 2013-04-22 Completed [facility] of Vaccine (3+ yrs) 00:00:00 [facility] Pneumococcal 2013-04-22 Completed University o f Polysaccharide, 00:00:00 [place] [facility] PPSV23 (PNEUMOVAX) Branch Influenza Virus 2013-04-22 Completed [facility] of Vaccine (3+ yrs) 00:00:00 [facility] Pneumococcal 2013-04-22 Completed University o f Polysaccharide, 00:00:00 [place] [facility] PPSV23 (PNEUMOVAX) Branch Influenza Virus 2013-04-22 Completed [facility] of Vaccine (3+ yrs) 00:00:00 [facility] Pneumococcal 2013-04-22 Completed University o f Polysaccharide, 00:00:00 [place] [facility] PPSV23 (PNEUMOVAX) Branch Influenza Virus 2013-04-22 Completed [facility] of Vaccine (3+ yrs) 00:00:00 [facility] Pneumococcal 2013-04-22 Completed University o f Polysaccharide, 00:00:00 [place] [facility] PPSV23 (PNEUMOVAX) Branch Influenza Virus 2013-04-22 Completed [facility] of Vaccine (3+ yrs) 00:00:00 [facility] Pneumococcal 2013-04-22 Completed [facility] o f Polysaccharide, 00:00:00 [place] [facility] PPSV23 (PNEUMOVAX) Branch Influenza Virus 2013-04-22 Completed [facility] y of Vaccine (3+ yrs) 00:00:00 [facility] Pneumococcal 2013-04-22 Completed [facility] o f Polysaccharide, 00:00:00 [place] [facility] PPSV23 (PNEUMOVAX) Branch Influenza Virus 2013-04-22 Completed [facility] of Vaccine (3+ yrs) 00:00:00 [facility] Pneumococcal 2013-04-22 Completed [facility] o f Polysaccharide, 00:00:00 [place] [facility] PPSV23 (PNEUMOVAX) Branch Influenza Virus 2013-04-22 Completed [facility] of Vaccine (3+ yrs) 00:00:00 [facility] Pneumococcal 2013-04-22 Completed [facility] o f Polysaccharide, 00:00:00 [place] [facility] PPSV23 (PNEUMOVAX) Branch Influenza Virus 2013-04-22 Completed [facility] of Vaccine (3+ yrs) 00:00:00 [facility] Pneumococcal 2013-04-22 Completed [facility] o f Polysaccharide, 00:00:00 [place] [facility] PPSV23 (PNEUMOVAX) Branch Influenza Virus 2013-04-22 Completed [facility] of Vaccine (3+ yrs) 00:00:00 [facility] Pneumococcal 2013-04-22 Completed [facility] o f Polysaccharide, 00:00:00 [place] [facility] PPSV23 (PNEUMOVAX) Branch Influenza Virus 2013-04-22 Completed [facility] of Vaccine (3+ yrs) 00:00:00 [facility] Pneumococcal 2013-04-22 Completed [facility] o f Polysaccharide, 00:00:00 [place] [facility] PPSV23 (PNEUMOVAX) Branch Influenza Virus 2013-04-22 Completed [facility] of Vaccine (3+ yrs) 00:00:00 [facility] Pneumococcal 2013-04-22 Completed [facility] o f Polysaccharide, 00:00:00 [place] [facility] PPSV23 (PNEUMOVAX) Branch Influenza Virus 2013-04-22 Completed [facility] of Vaccine (3+ yrs) 00:00:00 [facility] Pneumococcal 2013-04-22 Completed [facility] o f Polysaccharide, 00:00:00 [place] [facility] PPSV23 (PNEUMOVAX) Branch Influenza Virus 2013-04-22 Completed [facility] of Vaccine (3+ yrs) 00:00:00 [facility] Pneumococcal 2013-04-22 Completed [facility] o f Polysaccharide, 00:00:00 [place] [facility] PPSV23 (PNEUMOVAX) Branch Influenza Virus 2013-04-22 Completed [facility] of Vaccine (3+ yrs) 00:00:00 [facility] Pneumococcal 2013-04-22 Completed [facility] o f Polysaccharide, 00:00:00 [place] [facility] PPSV23 (PNEUMOVAX) Branch Influenza Virus 2013-04-22 Completed [facility] of Vaccine (3+ yrs) 00:00:00 [facility] Pneumococcal 2013-04-22 Completed [facility] o f Polysaccharide, 00:00:00 [place] [facility] PPSV23 (PNEUMOVAX) Branch Influenza Virus 2013-04-22 Completed [facility] of Vaccine (3+ yrs) 00:00:00 [facility] Pneumococcal 2013-04-22 Completed [facility] o f Polysaccharide, 00:00:00 [place] [facility] PPSV23 (PNEUMOVAX) Branch Influenza Virus 2013-04-22 Completed [facility] of Vaccine (3+ yrs) 00:00:00 [facility] Pneumococcal 2013-04-22 Completed [facility] o f Polysaccharide, 00:00:00 [place] [facility] PPSV23 (PNEUMOVAX) Branch Influenza Virus 2013-04-22 Completed [facility] of Vaccine (3+ yrs) 00:00:00 [facility] Pneumococcal 2013-04-22 Completed [facility] o f Polysaccharide, 00:00:00 [place] [facility] PPSV23 (PNEUMOVAX) Branch Influenza Virus 2013-04-22 Completed [facility] of Vaccine (3+ yrs) 00:00:00 [facility] Pneumococcal 2013-04-22 Completed [facility] o f Polysaccharide, 00:00:00 [place] [facility] PPSV23 (PNEUMOVAX) Branch Influenza Virus 2013-04-22 Completed [facility] of Vaccine (3+ yrs) 00:00:00 [facility] Pneumococcal 2013-04-22 Completed [facility] o f Polysaccharide, 00:00:00 [place] [facility] PPSV23 (PNEUMOVAX) Branch Influenza Virus 2013-04-22 Completed [facility] of Vaccine (3+ yrs) 00:00:00 [facility] Pneumococcal 2013-04-22 Completed [facility] o f Polysaccharide, 00:00:00 [place] [facility] PPSV23 (PNEUMOVAX) Branch Influenza Virus 2013-04-22 Completed [facility] of Vaccine (3+ yrs) 00:00:00 [facility] Branch Pneumococcal 2013-04-22 Completed [facility] o f Polysaccharide, 00:00:00 [place] [facility] PPSV23 (PNEUMOVAX) Branch Influenza Virus 2013-04-22 Completed [facility] of Vaccine (3+ yrs) 00:00:00 [facility] Pneumococcal 2013-04-22 Completed [facility] o f Polysaccharide, 00:00:00 [place] [facility] PPSV23 (PNEUMOVAX) Branch Influenza Virus 2013-04-22 Completed [facility] of Vaccine (3+ yrs) 00:00:00 [facility] Pneumococcal 2013-04-22 Completed [facility] o f Polysaccharide, 00:00:00 [place] [facility] PPSV23 (PNEUMOVAX) Branch Influenza Virus 2013-04-22 Completed [facility] of Vaccine (3+ yrs) 00:00:00 [facility] Pneumococcal 2013-04-22 Completed University o f Polysaccharide, 00:00:00 [facility] ical PPSV23 (PNEUMOVAX) Branch Influenza Virus 2013-04-22 Completed [facility]it y of Vaccine (3+ yrs) 00:00:00 [facility] Pneumococcal 2013-04-22 Completed [facility] o f Polysaccharide, 00:00:00 [place] [facility] PPSV23 (PNEUMOVAX) Branch Influenza Virus 2013-04-22 Completed [facility] of Vaccine (3+ yrs) 00:00:00 [facility] Pneumococcal 2013-04-22 Completed [facility] o f Polysaccharide, 00:00:00 [place] [facility] PPSV23 (PNEUMOVAX) Branch Influenza Virus 2013-04-22 Completed [facility] of Vaccine (3+ yrs) 00:00:00 [facility] Pneumococcal 2013-04-22 Completed [facility] o f Polysaccharide, 00:00:00 [place] [facility] PPSV23 (PNEUMOVAX) Branch Influenza Virus 2013-04-22 Completed [facility] of Vaccine (3+ yrs) 00:00:00 [facility] Pneumococcal 2013-04-22 Completed [facility] o f Polysaccharide, 00:00:00 [place] [facility] PPSV23 (PNEUMOVAX) Branch Influenza Virus 2013-04-22 Completed [facility] of Vaccine (3+ yrs) 00:00:00 [facility] Pneumococcal 2013-04-22 Completed [facility] o f Polysaccharide, 00:00:00 [place] [facility] PPSV23 (PNEUMOVAX) Branch Influenza Virus 2013-04-22 Completed [facility] y of Vaccine (3+ yrs) 00:00:00 [facility] Pneumococcal 2013-04-22 Completed [facility] o f Polysaccharide, 00:00:00 [place] [facility] PPSV23 (PNEUMOVAX) Branch Influenza Virus 2013-04-22 Completed [facility] of Vaccine (3+ yrs) 00:00:00 [facility] Pneumococcal 2013-04-22 Completed [facility] o f Polysaccharide, 00:00:00 [place] [facility] PPSV23 (PNEUMOVAX) Branch Influenza Virus 2013-04-22 Completed [facility] of Vaccine (3+ yrs) 00:00:00 [facility] Pneumococcal 2013-04-22 Completed [facility] o f Polysaccharide, 00:00:00 [place] [facility] PPSV23 (PNEUMOVAX) Branch Influenza Virus 2013-04-22 Completed [facility] of Vaccine (3+ yrs) 00:00:00 [facility] Pneumococcal 2013-04-22 Completed [facility] o f Polysaccharide, 00:00:00 [place] [facility] PPSV23 (PNEUMOVAX) Branch Influenza Virus 2013-04-22 Completed [facility] of Vaccine (3+ yrs) 00:00:00 [facility] Pneumococcal 2013-04-22 Completed [facility] o f Polysaccharide, 00:00:00 [place] [facility] PPSV23 (PNEUMOVAX) Branch Influenza Virus 2013-04-22 Completed [facility] of Vaccine (3+ yrs) 00:00:00 [facility] Pneumococcal 2013-04-22 Completed [facility] o f Polysaccharide, 00:00:00 [place] [facility] PPSV23 (PNEUMOVAX) Branch Influenza Virus 2013-04-22 Completed [facility] of Vaccine (3+ yrs) 00:00:00 [facility] Pneumococcal 2013-04-22 Completed [facility] o f Polysaccharide, 00:00:00 [place] [facility] PPSV23 (PNEUMOVAX) Branch Influenza Virus 2013-04-22 Completed [facility] of Vaccine (3+ yrs) 00:00:00 [facility] Pneumococcal 2013-04-22 Completed [facility] o f Polysaccharide, 00:00:00 [place] [facility] PPSV23 (PNEUMOVAX) Branch Influenza Virus 2013-04-22 Completed [facility]it y of Vaccine (3+ yrs) 00:00:00 [facility] Pneumococcal 2013-04-22 Completed [facility] o f Polysaccharide, 00:00:00 [place] [facility] PPSV23 (PNEUMOVAX) Branch Influenza Virus 2013-04-22 Completed [facility] Vaccine (3+ yrs) 00:00[facility]22 Com[facility] o f Polysaccharide, 00:00:00 [place] [facility] PPSV23 (PNEUMOVAX) Branch Influenza Virus 2013-04-22 Completed [facility] y of Vaccine (3+ yrs) 00:00:00 [facility] Pneumococcal 2013-04-22 Completed [facility] o f Polysaccharide, 00:00:00 [place] [facility] PPSV23 (PNEUMOVAX) Branch Influenza Virus 2013-04-22 Completed [facility] y of Vaccine (3+ yrs) 00:00:00 [facility] Pneumococcal 2013-04-22 Completed [facility] o f Polysaccharide, 00:00:00 [place] [facility] PPSV23 (PNEUMOVAX) Branch Influenza Virus 2013-04-22 Completed [facility] y of Vaccine (3+ yrs) 00:00:00 [facility] Pneumococcal 2013-04-22 Completed [facility] o f Polysaccharide, 00:00:00 [place] [facility] PPSV23 (PNEUMOVAX) Branch Influenza Virus 2013-04-22 Completed [facility] y of Vaccine (3+ yrs) 00:00:00 [facility] Pneumococcal 2013-04-22 Completed [facility] o f Polysaccharide, 00:00:00 [place] [facility] PPSV23 (PNEUMOVAX) Branch Influenza Virus 2013-04-22 Completed [facility] of Vaccine (3+ yrs) 00:00:00 [facility] Pneumococcal 2013-04-22 Completed [facility] o f Polysaccharide, 00:00:00 [place] [facility] PPSV23 (PNEUMOVAX) Branch Influenza Virus 2013-04-22 Completed [facility] y of Vaccine (3+ yrs) 00:00:00 [facility] Pneumococcal 2013-04-22 Completed [facility] o f Polysaccharide, 00:00:00 [place] [facility] PPSV23 (PNEUMOVAX) Branch Influenza Virus 2013-04-22 Completed [facility] of Vaccine (3+ yrs) 00:00:00 [facility] Pneumococcal 2013-04-22 Completed [facility] o f Polysaccharide, 00:00:00 [place] [facility] PPSV23 (PNEUMOVAX) Branch Influenza Virus 2013-04-22 Completed [facility]it y of Vaccine (3+ yrs) 00:00:00 [facility] Branch Pneumococcal 2013-04-22 Completed [facility] o f Polysaccharide, 00:00:00 [place] [facility] PPSV23 (PNEUMOVAX) Branch Influenza Virus 2013-04-22 Completed [facility]it y of Vaccine (3+ yrs) 00:00:00 [facility] Branch Pneumococcal 2013-04-22 Completed [facility] o f Polysaccharide, 00:00:00 [place] [facility] PPSV23 (PNEUMOVAX) Branch Influenza Virus 2013-04-22 Completed [facility]it y of Vaccine (3+ yrs) 00:00:00 [facility] Pneumococcal 2013-04-22 Completed [facility] o f Polysaccharide, 00:00:00 [place] [facility] PPSV23 (PNEUMOVAX) Branch Influenza Virus 2013-04-22 Completed Universit y of Vaccine (3+ yrs) 00:00:00 [facility] Pneumococcal 2013-04-22 Completed University o f Polysaccharide, 00:00:00 [place] [facility] PPSV23 (PNEUMOVAX) Branch Influenza Virus 2013-04-22 Completed Universit y of Vaccine (3+ yrs) 00:00:00 [facility] Pneumococcal 2013-04-22 Completed University o f Polysaccharide, 00:00:00 [place] [facility] PPSV23 (PNEUMOVAX) Branch Influenza Virus 2013-04-22 Completed Universit y of Vaccine (3+ yrs) 00:00:00 [facility] Pneumococcal 2013-04-22 Completed University o f Polysaccharide, 00:00:00 [place] [facility] PPSV23 (PNEUMOVAX) Branch Influenza Virus 2013-04-22 Completed Universit y of Vaccine (3+ yrs) 00:00:00 [facility] Pneumococcal 2013-04-22 Completed University o f Polysaccharide, 00:00:00 [place] [facility] PPSV23 (PNEUMOVAX) Branch Influenza Virus 2013-04-22 Completed Universit y of Vaccine (3+ yrs) 00:00:00 [facility] Pneumococcal 2013-04-22 Completed University o f Polysaccharide, 00:00:00 [place] [facility] PPSV23 (PNEUMOVAX) Branch Influenza Virus 2013-04-22 Completed Universit y of Vaccine (3+ yrs) 00:00:00 [facility] Pneumococcal 2013-04-22 Completed University o f Polysaccharide, 00:00:00 [place] [facility] PPSV23 (PNEUMOVAX) Branch Influenza Virus 2013-04-22 Completed Universit y of Vaccine (3+ yrs) 00:00:00 [facility] Pneumococcal 2013-04-22 Completed University o f Polysaccharide, 00:00:00 [place] [facility] PPSV23 (PNEUMOVAX) Branch Influenza Virus 2013-04-22 Completed Universit y of Vaccine (3+ yrs) 00:00:00 [facility] Pneumococcal 2013-04-22 Completed University o f Polysaccharide, 00:00:00 [place] [facility] PPSV23 (PNEUMOVAX) Branch Influenza Virus 2013-04-22 Completed Universit y of Vaccine (3+ yrs) 00:00:00 [facility] Pneumococcal 2013-04-22 Completed University o f Polysaccharide, 00:00:00 [place] [facility] PPSV23 (PNEUMOVAX) Branch Influenza Virus 2013-04-22 Completed Universit y of Vaccine (3+ yrs) 00:00:00 [facility] Pneumococcal 2013-04-22 Completed University o f Polysaccharide, 00:00:00 [place] [facility] PPSV23 (PNEUMOVAX) Branch Influenza Virus 2013-04-22 Completed Universit y of Vaccine (3+ yrs) 00:00:00 [facility] Pneumococcal 2013-04-22 Completed University o f Polysaccharide, 00:00:00 [place] [facility] PPSV23 (PNEUMOVAX) Branch Influenza Virus 2013-04-22 Completed Universit y of Vaccine (3+ yrs) 00:00:00 [facility] Pneumococcal 2013-04-22 Completed University o f Polysaccharide, 00:00:00 [place] [facility] PPSV23 (PNEUMOVAX) Branch Influenza Virus 2013-04-22 Completed Universit y of Vaccine (3+ yrs) 00:00:00 [facility] Pneumococcal 2013-04-22 Completed University o f Polysaccharide, 00:00:00 [place] [facility] PPSV23 (PNEUMOVAX) Branch Influenza Virus 2013-04-22 Completed Universit y of Vaccine (3+ yrs) 00:00:00 [facility] Pneumococcal 2013-04-22 Completed University o f Polysaccharide, 00:00:00 [place] [facility] PPSV23 (PNEUMOVAX) Branch Influenza Virus 2013-04-22 Completed Universit y of Vaccine (3+ yrs) 00:00:00 [facility] d[facility] Branch Pneumococcal 2013-04-22 Completed University o f Polysaccharide, 00:00:00 [place] [facility] PPSV23 (PNEUMOVAX) Branch Influenza Virus 2013-04-22 Completed Universit y of Vaccine (3+ yrs) 00:00:00 [facility] d[facility] Branch Pneumococcal 2013-04-22 Completed University o f Polysaccharide, 00:00:00 [place] [facility] PPSV23 (PNEUMOVAX) Branch Influenza Virus 2013-04-22 Completed Universit y of Vaccine (3+ yrs) 00:00:00 [facility] Branch Pneumococcal 2013-04-22 Completed University o f Polysaccharide, 00:00:00 [place] [facility] PPSV23 (PNEUMOVAX) Branch Influenza Virus 2013-04-22 Completed Universit y of Vaccine (3+ yrs) 00:00:00 [facility] Vital Signs Vital Name Observation Time Observation Value Comments Source BP Diastolic 2022-10-16 00:00:00 78 mm[Hg] [facility] Height 2022-10-16 00:00:00 67 [in_i] [facility] BMI (Body Mass 2022-10-16 00:00:00 26.9 kg/m2 [facility] Index) BP Systolic 2022-10-16 00:00:00 120 mm[Hg] [facility] Body Weight 2022-10-16 00:00:00 2753 [oz_av] Neo [facility] Systolic blood 2022-08-11 19:42:00 122 mm[Hg] Univer sity of pressure [facility] Diastolic blood 2022-08-11 19:42:00 85 mm[Hg] Unive rsity of [facility] Heart rate 2022-08-11 19:42:00 119 /min [facility] Body temperature 2022-08-11 19:42:00 36.5 Sabrina Univ ersity of [facility] Body height 2022-08-11 19:42:00 170.2 cm [facility] Body weight 2022-08-11 19:42:00 73.483 kg [facility] BMI 2022-08-11 19:42:00 25.37 kg/m2 [facility] [place] [facility] Oxygen saturation in 2022-08-11 19:42:00 96 /min University of Arterial blood by [place] [facility] Systolic blood 2022-07-17 00:29:00 149 mm[Hg] Univer sity of pressure [facility] Diastolic blood 2022-07-17 00:29:00 104 mm[Hg] Unive rsity of pressure [facility] Heart rate 2022-07-17 00:29:00 109 /min [facility] [place] [facility] Body temperature 2022-07-17 00:29:00 37.28 Sabrina Univ ersity [facility] [place] [facility] Respiratory rate 2022-07-17 00:29:00 14 /min Univ ersity [facility] [place] [facility] Body height 2022-07-17 00:29:00 170.2 cm [facility] [place] [facility] Body weight 2022-07-17 00:29:00 70.308 kg [facility] [place] [facility] BMI 2022-07-17 00:29:00 24.28 kg/m2 [facility] [place] [facility] Oxygen saturation in 2022-07-17 00:29:00 99 /min University of Arterial blood by [place] [facility] Systolic blood 2022-07-11 14:45:00 162 mm[Hg] Univer sity of pressure [facility] Diastolic blood 2022-07-11 14:45:00 110 mm[Hg] Unive rsity of pressure [facility] Heart rate 2022-07-11 14:45:00 114 /min [facility] [place] [facility] Body temperature 2022-07-11 14:45:00 36.61 Sabrina Univ ers[facility] [place] [facility] Body height 2022-07-11 14:45:00 170.2 cm [facility] [place] [facility] Body weight 2022-07-11 14:45:00 72.122 kg [facility] [place] [facility] BMI 2022-07-11 14:45:00 24.90 kg/m2 [facility] [place] [facility] Oxygen saturation in 2022-07-11 14:45:00 99 /min University [facility] Arterial blood by [place] [facility] P[facility]xim[facility] Systolic blood 2022-03-31 19:54:00 107 mm[Hg] Univer sity of pressure [facility] Diastolic blood 2022-03-31 19:54:00 73 mm[Hg] Unive rsity of pressure [facility] Heart rate 2022-03-31 19:54:00 94 /min [facility] [place] [facility] Body temperature 2022-03-31 19:54:00 37 Sabrina [facility] ers[facility] [place] [facility] Body height 2022-03-31 19:54:00 171.5 cm [facility] [place] [facility] Body weight 2022-03-31 19:54:00 72.576 kg [facility] [place] [facility] BMI 2022-03-31 19:54:00 24.69 kg/m2 [facility] [place] [facility] Oxygen saturation in 2022-03-31 19:54:00 95 /min University Arterial blood by [facility] Pulse oximetry Branch Systolic blood 2022-03-05 19:52:00 136 mm[Hg] Univer sity of pressure [facility] Diastolic blood 2022-03-05 19:52:00 83 mm[Hg] Unive rsity of pressure [facility] Heart rate 2022-03-05 19:52:00 98 /min [facility] [place] [facility] Body temperature 2022-03-05 19:52:00 36.72 Sabrina [facility] [place] [facility] Respiratory rate 2022-03-05 19:52:00 18 /min Univ ersity [facility] [place] [facility] Body height 2022-03-05 19:52:00 171.5 cm [facility] [place] [facility] Body weight 2022-03-05 19:52:00 73.936 kg [facility] [place] [facility] BMI 2022-03-05 19:52:00 25.15 kg/m2 [facility] [place] [facility] Systolic blood 2022-01-24 18:20:00 131 mm[Hg] Univer sity of pressure [place] [facility] Diastolic blood 2022-01-24 18:20:00 91 mm[Hg] Unive rsity of pressure [facility] Heart rate 2022-01-24 18:19:00 102 /min [facility] [place] [facility] Body temperature 2022-01-24 18:19:00 36.72 Sabrina [facility] [place] [facility] Body height 2022-01-24 18:19:00 171.5 cm [facility] [place] [facility] Body weight 2022-01-24 18:19:00 74.707 kg [facility] [place] [facility] BMI 2022-01-24 18:19:00 25.41 kg/m2 Universi ty of [facility] Oxygen saturation in 2022-01-24 18:19:00 97 /min University of Arterial blood by [facility] Pulse oximetry Branch Systolic blood 2022-11-20 07:00:00 128 mm[Hg] [facility] pressure Diastolic blood 2022-11-20 07:00:00 84 mm[Hg] [facility] pressure Heart rate 2022-11-20 07:00:00 79 /min [facility] Respiratory rate 2022-11-20 07:00:00 17 /min [facility] Oxygen saturation in 2022-11-20 07:00:00 98 /min [facility] Arterial blood by Pulse oximetry Body temperature 2022-11-20 03:07:00 36.78 Sabrina [facility] Body height 2022-11-20 03:07:00 170.2 cm [facility] Body weight 2022-11-20 03:07:00 77.111 kg [facility] BMI 2022-11-20 03:07:00 26.63 kg/m2 [facility] Systolic blood 2022-01-24 18:20:00 131 mm[Hg] Univer sity of [facility] Diastolic blood 2022-01-24 18:20:00 91 mm[Hg] Unive rsity [facility] Heart rate 2022-01-24 18:19:00 102 /min Universi ty [facility] Body temperature 2022-01-24 18:19:00 36.72 Sabrina Univ ersity of [facility] Body height 2022-01-24 18:19:00 171.5 cm [facility] [place] [facility] Body weight 2022-01-24 18:19:00 74.707 kg [facility] [place] [facility] BMI 2022-01-24 18:19:00 25.41 kg/m2 Universi ty [facility] Oxygen saturation in 2022-01-24 18:19:00 97 /min University of Arterial blood by [facility] Pulse oximetry Branch Respiratory rate 2021-11-22 18:55:00 20 /min [facility] Procedures Procedure Date / Time Performing Clinician Source Performed POC GLUCOSE 2022-11-20 07:51:00 [facility] Pretty POC GLUCOSE 2022-11-20 06:50:00 [facility] Sukhwinder CT RENAL STONE PROTOCOL 2022-11-20 05:48:37 [facility] POC GLUCOSE 2022-11-20 05:46:00 [facility] Pretty URINALYSIS SCREEN AND 2022-11-20 05:09:00 [facility] MICROSCOPY, WITH REFLEX Sukhwinder TO CULTURE HCG QUALITATIVE, URINE 2022-11-20 05:09:00 [facility] SCREEN Sukhwinder POC GLUCOSE 2022-11-20 04:44:00 [facility] POC GLUCOSE 2022-11-20 03:58:00 [facility] Pretty ECG ED PRELIMINARY 2022-11-20 [facility] Sukhwinder CBC WITH PLATELET AND 2022-11-20 03:46:00 [facility] DIFFERENTIAL Pretty COMPREHENSIVE METABOLIC 2022-11-20 03:46:00 [facility] PANEL Sukhwinder ESTIMATED GFR 2022-11-20 03:46:00 [facility] POC GLUCOSE 2022-11-20 03:26:00 [facility] ECG 12-LEAD 2022-11-20 03:24:44 Ayaz Butlertal MAMMO, screening, 2022-10-16 00:00:00 [facility] digital, bilateral imaging of retina for 2022-10-16 00:00:00 [facility] detection or monitoring of disease; with remote clinical staff review and report POCT HEMOGLOBIN A1C TEST 2022-08-11 20:42:00 Sarita Ferrari [facility] Medical Branch EXTERNAL PROVIDER RECORDS 2022-07-30 06:01:00 Doctor Unassigned, [facility] [place] [facility] NOTICE OF PRIVACY 2022-07-17 00:19:29 Doctor Unassigned, [facility] PRACTICES [place] [facility] CONSENT/REFUSAL FOR 2022-07-17 00:18:46 Doctor Unassrebeka, [facility] DIAGNOSIS AND TREATMENT [place] [facility] SARS-COV-2 COVID-19 2022-03-31 20:06:29 Sarita Ferrari [facility] JASPER-SUCROSE VACCINE 12 Medical Branch YRS+, BIVALENT 0.3ML, IM, (PFIZER ROGER TOP BOOSTER) PNEUMOCOCCAL 20 CONJUGATE 2022-03-31 20:01:27 Sarita Ferrari [facility] (PREVNAR 20) VACCINE Medical [facility] REFERRAL- 2022-03-31 05:01:00 Doctor Eze, [facility] REQUEST/RESPONSE [place] [facility] INSURANCE CORRESPONDENCE 2022-03-10 05:01:00 Doctor Eze, [facility] [place] [facility] CBC WITH DIFF 2022-01-24 21:07:00 Vonda [facility] GLYCOSYLATED HEMOGLOBIN 2022-01-24 21:07:00 Vonda [facility] (A1C) [facility] COMP. METABOLIC PANEL 2022-01-24 21:07:00 Vonda Sarita [facility] ([id number]) [facility] IONIZED CALCIUM 2022-01-24 21:07:00 Vonda [facility] THYROID STIMULATING 2022-01-24 21:07:00 Sarita Ferrari [facility] HORMONE Medical Branch THYROXINE, TOTAL 2022-01-24 21:07:00 Vonda [facility] CBC WITH DIFF 2022-01-24 21:07:00 Vonda [facility] URINE CULTURE 2022-01-24 19:17:00 Vonda [facility] URINE CULTURE 2022-01-24 19:17:00 Vonda [facility] POCT URINALYSIS 2022-01-24 19:00:00 Vonda [facility] POCT URINALYSIS 2022-01-24 19:00:00 Vonda [facility] Plan of Care Planned Activity Planned Date Details Comments Source Future Scheduled 2023-03-08 IMM Influenza [facility] 00:00:00 Seasonal (>/= 19 yrs) [code = IMM Influenza Seasonal (>/= 19 yrs)] Future Scheduled 2023-03-08 IMM Influenza [facility] Test 00:00:00 Seasonal (>/= 19 yrs) [code = IMM Influenza Seasonal (>/= 19 yrs)] Future Scheduled 2022-12-24 Pneumococcal Vaccine: [facility] Test 02:45:36 Pediatrics (0 to 5 Years) and At-Risk Patients (6 to 64 Years) (1 - PCV) [code = Pneumococcal Vaccine: Pediatrics (0 to 5 Years) and At-Risk Patients (6 to 64 Years) (1 - PCV)] Future Scheduled 2022-12-24 DIABETES: RETINAL EYE [facility] Test 02:45:36 EXAM [code = DIABETES: RETINAL EYE EXAM] Future Scheduled 2022-12-24 DIABETIC FOOT EXAM [facility] Test 02:45:36 [code = DIABETIC FOOT EXAM] Future Scheduled 2022-12-24 [facility] 02:45:36 [code = URINE MICROALBUMIN] Future Scheduled 2022-12-24 Hepatitis C screening [facility] Test 02:45:36 (procedure) [code = 588305571] Future Scheduled 2022-12-24 [facility] Test 02:45:36 malignant neoplasm of cervix (procedure) [code = 927512178] Future Scheduled 2022-12-24 BREAST CANCER [facility] Test 02:45:36 SCREENING [code = BREAST CANCER SCREENING] Future Scheduled 2022-12-24 [facility]ACCINE [facility] 02:45:36 [code = INFLUENZA VACCINE] Future Scheduled 2022-11-21 Pneumococcal Vaccine: [facility] Test 04:24:42 Pediatrics (0 to 5 Years) and At-Risk Patients (6 to 64 Years) (1 - PCV) [code = Pneumococcal Vaccine: Pediatrics (0 to 5 Years) and At-Risk Patients (6 to 64 Years) (1 - PCV)] Future Scheduled 2022-11-21 DIABETES: [facility] Test 04:24:42 EXAM [code = DIABETES: RETINAL EYE EXAM] Future Scheduled 2022-11-21 DIABETIC FOOT EXAM [facility] Test 04:24:42 [code = DIABETIC FOOT EXAM] Future Scheduled 2022-11-21 URINE [facility]CROALBUMIN [facility] Test 04:24:42 [code = URINE MICROALBUMIN] Future Scheduled 2022-11-21 Hepatitis C screening [facility] Test 04:24:42 (procedure) [code = 036818759] Future Scheduled 2022-11-21 Screening for [facility] Test 04:24:42 malignant neoplasm of cervix (procedure) [code = 128905170] Future Scheduled 2022-11-21 BREAST CANCER [facility] Test 04:24:42 SCREENING [code = BREAST CANCER SCREENING] Future Scheduled 2022-11-21 INFLUENZA VACCINE [facility] Test 04:24:42 [code = INFLUENZA [...] urine] Future Scheduled 2022-09-06 COVID-19 VACCINE (#1) [facility] Test 05:15:11 [code = COVID-19 VACCINE (#1)] Future Scheduled 2022-09-06 Screening for [facility] Test 05:15:11 malignant neoplasm of cervix (procedure) [code = 709560472] Future Scheduled 2022-09-06 BREAST CANCER [facility] Test 05:15:11 SCREENING [code = BREAST CANCER SCREENING] Future Scheduled 2022-09-06 INFLUENZA VACCINE [facility] Test 05:15:11 [code = INFLUENZA VACCINE] Future Scheduled 2022-07-11 COVID-19 VACCINE (#1) [facility] Test 22:28:38 [code = COVID-19 VACCINE (#1)] Future Scheduled 2022-07-11 Pneumococcal Vaccine: [facility] Test 22:28:38 Pediatrics (0 to 5 Years) and At-Risk Patients (6 to 64 Years) (1 - PCV) [code = Pneumococcal Vaccine: Pediatrics (0 to 5 Years) and At-Risk Patients (6 to 64 Years) (1 - PCV)] Future Scheduled 2022-07-11 DIABETES: RETINAL EYE [facility] Test 22:28:38 EXAM [code = DIABETES: RETINAL EYE EXAM] Future Scheduled 2022-07-11 [facility] 22:28:38 [code = DIABETIC FOOT EXAM] Future Scheduled 2022-07-11 [facility] Test 22:28:38 [code = URINE MICROALBUMIN] Future Scheduled 2022-07-11 Hepatitis C screening [facility] Test 22:28:38 (procedure) [code = 759268746] Future Scheduled 2022-07-11 [facility] Test 22:28:38 malignant neoplasm of cervix (procedure) [code = 026965798] Future Scheduled 2022-07-11 BREAST CANCER [facility] Test 22:28:38 SCREENING [code = BREAST CANCER SCREENING] Future Scheduled 2022-07-11 [facility]ACCINE [facility] 22:28:38 [code = INFLUENZA VACCINE] Future Scheduled 2022-05-31 COVID-19 VACCINE (#1) [facility] Test 07:02:30 [code = COVID-19 VACCINE (#1)] Future Scheduled 2022-05-31 Pneumococcal Vaccine: [facility] Test 07:02:30 Pediatrics (0 to 5 Years) and At-Risk Patients (6 to 64 Years) (1 - PCV) [code = Pneumococcal Vaccine: Pediatrics (0 to 5 Years) and At-Risk Patients (6 to 64 Years) (1 - PCV)] Future Scheduled 2022-05-31 DIABETES: RETINAL EYE [facility] Test 07:02:30 EXAM [code = DIABETES: RETINAL EYE EXAM] Future Scheduled 2022-05-31 [facility] Test 07:02:30 [code = DIABETIC FOOT EXAM] Future Scheduled 2022-05-31 [facility] 07:02:30 [code = URINE MICROALBUMIN] Future Scheduled 2022-05-31 Hepatitis C screening [facility] Test 07:02:30 (procedure) [code = 588119620] Future Scheduled 2022-05-31 [facility] Test 07:02:30 malignant neoplasm of cervix (procedure) [code = 804958971] Future Scheduled 2022-05-31 BREAST CANCER [facility] Test 07:02:30 SCREENING [code = BREAST CANCER SCREENING] Future Scheduled 2022-05-31 INFLUENZA VACCINE [facility] Test 07:02:30 [code = INFLUENZA VACCINE] Future Scheduled 2022-05-31 COVID-19 VACCINE (#1) [facility] Test 07:02:30 [code = COVID-19 VACCINE (#1)] Future Scheduled 2022-05-31 Pneumococcal Vaccine: [facility] Test 07:02:30 Pediatrics (0 to 5 Years) and At-Risk Patients (6 to 64 Years) (1 - PCV) [code = Pneumococcal Vaccine: Pediatrics (0 to 5 Years) and At-Risk Patients (6 to 64 Years) (1 - PCV)] Future Scheduled 2022-05-31 DIABETES: RETINAL EYE [facility] Test 07:02:30 EXAM [code = DIABETES: RETINAL EYE EXAM] Future Scheduled 2022-05-31 DIABETIC FOOT EXAM [facility] Test 07:02:30 [code = DIABETIC FOOT EXAM] Future Scheduled 2022-05-31 URINE MICROALBUMIN [facility] Test 07:02:30 [code = URINE MICROALBUMIN] Future Scheduled 2022-05-31 Hepatitis C screening [facility] Test 07:02:30 (procedure) [code = 416002917] Future Scheduled 2022-05-31 [facility] Test 07:02:30 malignant neoplasm of cervix (procedure) [code = 373881905] Future Scheduled 2022-05-31 BREAST CANCER [facility] Test 07:02:30 SCREENING [code = BREAST CANCER SCREENING] Future Scheduled 2022-05-31 INFLUENZA VACCINE Method [facility] Test 07:02:30 [code = INFLUENZA VACCINE] Future Scheduled 2022-05-31 COVID-19 VACCINE (#1) [facility] Test 07:02:30 [code = COVID-19 VACCINE (#1)] Future Scheduled 2022-05-31 Pneumococcal Vaccine: [facility] Test 07:02:30 Pediatrics (0 to 5 Years) and At-Risk Patients (6 to 64 Years) (1 - PCV) [code = Pneumococcal Vaccine: Pediatrics (0 to 5 Years) and At-Risk Patients (6 to 64 Years) (1 - PCV)] Future Scheduled 2022-05-31 DIABETES: RETINAL EYE [facility] Test 07:02:30 EXAM [code = DIABETES: RETINAL EYE EXAM] Future Scheduled 2022-05-31 DIABETIC FOOT EXAM [facility] Test 07:02:30 [code = DIABETIC FOOT EXAM] Future Scheduled 2022-05-31 URINE MICROALBUMIN [facility] Test 07:02:30 [code = URINE MICROALBUMIN] Future Scheduled 2022-05-31 Hepatitis C screening [facility] Test 07:02:30 (procedure) [code = 330534152] Future Scheduled 2022-05-31 Screening for [facility] Test 07:02:30 malignant neoplasm of cervix (procedure) [code = 686062586] Future Scheduled 2022-05-31 BREAST CANCER [facility] Test 07:02:30 SCREENING [code = BREAST CANCER SCREENING] Future Scheduled 2022-05-31 INFLUENZA VACCINE [facility] Test 07:02:30 [code = INFLUENZA VACCINE] Future Scheduled 2022-03-08 IMM [facility] 00:00:00 Seasonal (>/= 19 yrs) [code = IMM Influenza Seasonal (>/= 19 yrs)] Future Scheduled 2022-03-08 IMM [facility] 00:00:00 Seasonal (>/= 19 yrs) [code = IMM Influenza Seasonal (>/= 19 yrs)] Future Scheduled 2022-03-08 IMM [facility] 00:00:00 Seasonal (>/= 19 yrs) [code = IMM Influenza Seasonal (>/= 19 yrs)] Future Scheduled 2022-03-08 IMM [facility] 00:00:00 [...] malignant neoplasm of cervix (procedure) [code = 838349573] Future Scheduled 2008 [facility] 00:[facility]:00 malignant neoplasm of cervix (procedure) [code = 595345588] Future Scheduled 2008 [facility] 00:00:00 malignant neoplasm of cervix (procedure) [code = 579682137] Future Scheduled 2008 [facility] 00:00:00 malignant neoplasm of cervix (procedure) [code = 539804207] Future Scheduled 2008 [facility] 00:00:00 malignant neoplasm of cervix (procedure) [code = 228670860] Future Scheduled 2008 [facility] 00:00:00 malignant neoplasm of cervix (procedure) [code = 541644053] Future Scheduled 2008 [facility] 00:00:00 malignant neoplasm of cervix (procedure) [code = 158622381] Future Scheduled 2008 [facility] 00:00:00 malignant neoplasm of cervix (procedure) [code = 234524657] Future Scheduled 2008 [facility] 00:00:00 malignant neoplasm of cervix (procedure) [code = 805883838] Future Scheduled 2008 Screening for [facility] 00:00:00 malignant neoplasm of cervix (procedure) [code = 422025190] Future Scheduled 2008 Screening for [facility] Test 00:00:00 malignant neoplasm of cervix (procedure) [code = 205897888] Future Scheduled 2008 Screening for [facility] Test 00:00:00 malignant neoplasm of cervix (procedure) [code = 529121463] Future Scheduled 1979-02-07 COVID-19 Vaccine (#1) Payne [...] Date/Time Type Type Clinicians Facility Department ID 2022-12-19 2022-12-19 Outpatient R SARITA FERRARI [facility] [id number] Univers 13:40:00 13:40:00 SARITA FERRARI arsenio [facility] 2022-12-19 2022-12-19 Outpatient GC_PGTW_Pas PRIV PRIV 273 [id number] [facility] 00:00:00 00:00:00 chalis_T [id number] Medic al 2022-12-17 2022-12-17 Refill Vonda [facility] 1.2.840.114 [id number] Univers 00:00:00 00:00:00 Replaced by [facility] 350.1.13.10 [facility] 4.2.7.2.686 Jon as STEPHANIE?BLEA [phone] [address] MEDICAL OFFICE BUILDING 2022-12-15 2022-12-15 Outpatient GC_GCCOLL_H PRIV PRIV 273 [id number] [facility] 00:00:00 00:00:00 Arsalan [id number] Medica l 2022-12-02 2022-12-02 Outpatient GC_PGTW_Pas PRIV PRIV 273 [id number] [facility] 00:00:00 00:00:00 Esteban [id number] Medic al 2022-12-02 2022-12-02 Outpatient GC_GCCOLL_H PRIV PRIV 273 [id number] [facility] 00:00:00 00:00:00 Arsalan [id number] Medica l 2022-11-21 2022-11-21 Outpatient GC_PGTW_Pas PRIV PRIV 273 [id number] [facility] 00:00:00 00:00:00 Esteban [id number] Medic al 2022-11-19 2022-11-20 Emergency [place] 1.2.840.1 [id number] Methodi 21:57:00 03:19:00 , [place] [address] 3.430.2.7 Hospit a .3.204260 l .8 2022-11-19 2022-11-20 Emergency [place] 1.2.840.1 [id number] Methodi 21:57:00 03:19:00 , [place] [address]14.1.[address] 3.430.2.7 Hospit a .3.938656 l .8 2022-11-19 2022-11-19 Outpatient PRIV PRIV [id number] 3-2 [facility] 00:00:00 00:00:00 [id number] Medica l 2022-11-19 2022-11-19 Outpatient GC_GCCOLL_H PRIV PRIV 273 [id number] [facility] 00:00:00 00:00:00 Arsalan [id number] Medica l 2022-11-11 2022-11-11 Outpatient GC_GCCOLL_H PRIV PRIV 273 [id number] [facility] 00:00:00 00:00:00 Arsalan [id number] Medica l 2022-11-04 2022-11-04 Outpatient GC_PGTW_Pas PRIV PRIV 273 [id number] [facility] 00:00:00 00:00:00 chalis_T [id number] Medic al 2022-11-04 2022-11-04 Outpatient GC_GCCOLL_H PRIV PRIV 273 [id number] [facility] 00:00:00 00:00:00 margie_Marilou [id number] Medica l 2022-11-04 2022-11-04 Outpatient GC_PGTW_Pas PRIV PRIV 273 [id number] [facility] 00:00:00 00:00:00 chalis_T [id number] Medic al 2022-11-04 2022-11-04 Outpatient GC_GCCOLL_H PRIV PRIV 273 [id number] [facility] 00:00:00 00:00:00 margie_Marilou [id number] Medica l 2022-10-29 2022-10-29 Outpatient GC_PGTW_Pas PRIV PRIV 273 [id number] [facility] 00:00:00 00:00:00 chynais_T [id number] Medic al 2022-10-27 2022-10-27 Outpatient GC_GCCOLL_H PRIV PRIV 273 [id number] [facility] 00:00:00 00:00:00 maribeles_J [id number] Medica l 2022-10-27 2022-10-27 Outpatient GC_GCCOLL_H PRIV PRIV 273 [id number] [facility] 00:00:00 00:00:00 maribeles_J [id number] Medica l 2022-10-24 2022-10-24 Outpatient GC_GCCOLL_H PRIV PRIV 273 [id number] [facility] 00:00:00 00:00:00 maribeles_J [id number] Medica l 2022-10-24 2022-10-24 Outpatient GC_PGTW_Pas PRIV PRIV 273 [id number] [facility] 00:00:00 00:00:00 chalis_T [id number] Medic al 2022-10-23 2022-10-23 Outpatient GC_PGTW_Pas PRIV PRIV 273 [id number] [facility] 00:00:00 00:00:00 chalis_T [id number] Medic al 2022-10-21 2022-10-21 Outpatient GC_PGTW_Pas PRIV PRIV 273 [id number] [facility] 00:00:00 00:00:00 chalis_T [id number] Medic al 2022-10-20 2022-10-20 Outpatient GC_PGTW_Pas PRIV PRIV 273 [id number] [facility] 00:00:00 00:00:00 chalis_T [id number] Medic al 2022-10-16 2022-10-16 Outpatient GC_PGTW_Pas PRIV PRIV 273 [id number] [facility] 00:00:00 00:00:00 chalis_T [id number] Medic al 2022-10-16 2022-10-16 Thimos G PRIV [facility] 511 [facility] 00:00:00 00:00:00 Ivy Vences MD: 134 GC_PGTW_Vis [facility] [address], [place] [address] , Ph. 2022-10-15 2022-10-15 Outpatient GC_PGTW_Pas PRIV PRIV 273 [id number] [facility] 00:00:00 00:00:00 chalis_T [id number] Medic al 2022-10-14 2022-10-14 [facility] [id number] Univers 13:40:00 13:40:00 [facility] 2022-10-06 2022-10-06 Outpatient GC_PGTW_Pas PRIV PRIV 273 [id number] [facility] 00:00:00 00:00:00 chalis_T [id number] Medic al 2022-09-16 2022-09-16 Outpatient R NEETU [facility] [id number] Univers 09:30:00 09:30[facility]22-08-26 2022-08-26 Patient [facility] 1.2.840.114 [id number] Univers 00:00:00 00:00:00 Secure [facility] 350.1.13.10 [facility] 4.2.7.2.686 Jon as STEPHANIE?BLEA [phone] [place] mig[place] [address] MEDICAL OFFICE BUILDING 2022-08-26 2022-08-26 Telephone [facility] 1.2.762.296 [id number] Univers 00:00:00 00:00:00 Replaced by [facility] 350.1.13.10 ity of TELL 4.2.7.2.686 Jon as STEPHANIE?BLEA [phone] [address] MEDICAL OFFICE [facility] 2022-08-25 2022-08-25 Refrafia [facility] 1.2.840.114 [id number] Univers 00:00:00 00:00:00 [place] HEALTH 350.1.13.10 ity of [place] 4.2.7.2.686 Jon as STEPHANIE?BLEA [id number] [address] OFFICE [facility] 2022-08-25 2022-08-25 Refrafia [facility] 1.2.840.114 [id number] Univers 00:00:00 00:00:00 Replaced by [facility] 350.1.13.10 ity of TELL 4.2.7.2.686 Jon as STEPHANIE?BLEA [phone] [address] OFFICE [facility] 2022-08-25 2022-08-25 Refrafia [facility] 1.2.840.114 [id number] Univers 00:00:00 00:00:00 Alexsandra PENA 350.1.13.10 it y of [facility] 4.2.7.2.686 Jon as PEDIATRIC [phone] [facility] AND [address] [place] [address] E CLINIC 2022-08-25 2022-08-25 Refrafia [facility] 1.2.840.114 [id number] Univers 00:00:00 00:00:00 Sarita PENA 350.1.13.10 ity of [facility] [place].2.7.2.[place] [phone] [facility] AND [address] [place] [address] E CLINIC 2022-08-11 2022-08-11 Outpatient R VONDA [facility] [id number] Univers 13:40:00 14:35:13 SARITA ity [facility] 2022-08-11 2022-08-11 Office [facility] 1.2.840.114 [id number] Univers 13:40:00 14:35:13 Visit Replaced by [facility] 350.1.13.10 ity of TELL 4.2.7.2.686 Jon as STEPHANIE?BLEA [phone] [address] OFFICE [facility] 2022-08-11 2022-08-11 Telephone [facility] 1.2.755.063 [id number] Univers 00:00:00 00:00:00 Sarita HEALTH 350.1.13.10 ity of TELL 4.2.7.2.686 Jon as STEPHANIE?BLEA [phone] [address] OFFICE [facility] 2022-08-08 2022-08-08 [facility] [id number] Univers 13:40:00 13:40:00 SARITA ity [facility] 2022-08-03 2022-08-03 Refill [facility] 1.2.840.114 [id number] Univers 00:00:00 00:00:00 [facility] 350.1.13.10 ity of [facility] 4.2.7.2.[place] [phone] [address] E CLINIC 2022-08-01 2022-08-01 Patient [facility] 1.2.840.114 [id number] Univers 00:00:00 00:00:00 Secure Msg [place] [facility] 350.1.13.10 ity of TELL 4.2.7.2.686 Jon as STEPHANIE?BLEA [phone] [address] OFFICE [facility] 2022-07-31 2022-07-31 Telephone [facility] 1.2.966.200 [id number] Univers 00:00:00 00:00:00 Sarita HEALTH 350.1.13.10 ity of TELL 4.2.7.2.686 Jon as STEPHANIE?BLEA [phone] [address] OFFICE [facility] 2022-07-30 2022-07-30 Orders Doctor ROBERT 1.2.840.114 [id number] Univers 00:00:00 00:00:00 Only Unassigned, MAURO 350.1.13.10 ity of [place] [facility] 4.2.7.2.686 Jon as [phone] [address] 2022-07-28 2022-07-28 Patient Vonda, [facility] 1.2.840.114 [id number] Univers 00:00:00 00:00:00 Secure [facility] Sarita HEALTH 350.1.13.10 ity of [facility] 4.2.7.2.686 Jon as STEPHANIE?BLEA [phone] [address] MEDICAL OFFICE BUILDING 2022-07-28 2022-07-28 Patient [facility], [facility] 1.2.840.114 [id number] Univers 00:00:00 00:00:00 Secure [facility] HEALTH 350.1.13.10 ity of TELL 4.2.7.2.686 Jon as STEPHANIE?BLEA [id number] [address] MEDICAL OFFICE [facility] 2022-07-28 2022-07-28 Patient [facility] 1.2.840.114 [id number] Univers 00:00:00 00:00:00 Secure [facility] 350.1.13.10 ity of TELL 4.2.7.2.686 Jon as STEPHANIE?BLEA [phone] [address] MEDICAL OFFICE [facility] 2022-07-28 2022-07-28 Jasper [facility] 1.2.840.114 [id number] Univers 00:00:00 00:00:00 Alexsandra PENA 350.1.13.10 it y of [facility] 4.2.7.2.686 Jon as PEDIATRIC [phone] [address] E CLINIC 2022-07-28 2022-07-28 Telephone [facility] 1.2.048.331 [id number] Univers 00:00:00 00:00:00 Sarita HEALTH 350.1.13.10 ity of [facility] 4.2.7.2.686 Jon as STEPHANIE?BLEA [phone] [address] MEDICAL OFFICE BUILDING 2022-07-27 2022-07-27 Refill [facility] 1.2.840.114 [id number] Univers 00:00:00 00:00:00 Replaced by [facility] 350.1.13.10 ity of TELL 4.2.7.2.686 Jon as STEPHANIE?BLEA [phone] [facility] [address] OFFICE [facility] 2022-07-27 2022-07-27 Jasper [facility] 1.2.840.114 [id number] Univers 00:00:00 00:00:00 Alexsandra PENA 350.1.13.10 it y of [facility] 4.2.7.2.686 Jon as PEDIATRIC [phone] [address] E [facility] 2022-07-26 2022-07-26 Refrafia [facility] 1.2.840.114 [id number] Univers 00:00:00 00:00:00 Replaced by [facility] 350.1.13.10 ity of TELL 4.2.7.2.686 Jon as STEPHANIE?BLEA [phone] [address] OFFICE [facility] 2022-07-23 2022-07-23 [facility] 1.2.840.114 [id number] Univers 00:00:00 00:00:00 Replaced by [facility] 350.1.13.10 ity of TELL 4.2.7.2.686 Jon as STEPHANIE?BLEA [phone] [address] OFFICE [facility] 2022-07-18 2022-07-18 Outpatient R TOBY [facility] [id number] Univers 13:00:00 13:00:00 SYDNEY galvan [facility] 2022-07-16 2022-07-16 Emergency X PERLA [facility] ERT [id number] Univers 18:33:00 20:01:00 EMETERIO galvan [facility] 2022-07-16 2022-07-16 Emergency [facility] 1.2.981.313 [id number] Univers 18:33:00 20:01:00 Emeterio Ureña TELL 350.1.13.10 i ty of [place] [phone] [address] 2022-07-16 2022-07-16 Cherry [facility] 1.2.511.963 [id number] Univers 00:00:00 00:00:00 Sarita HEALTH 350.1.13.10 ity of [place] 4.2.7.2.686 Jon as STEPHANIE?BLEA [id number] [address] OFFICE [facility] 2022-07-15 2022-07-15 Telephone [facility] 1.2.504.729 [id number] Univers 00:00:00 00:00:00 Sarita HEALTH 350.1.13.10 ity of [place] 4.2.7.2.686 Jon as STEPHANIE?BLEA [id number] [address] OFFICE [facility] 2022-07-15 2022-07-15 Refill [facility] 1.2.840.114 [id number] Univers 00:00:00 00:00:00 Replaced by [facility] 350.1.13.10 ity of [facility] 4.2.7.2.686 Jon as STEPHANIE?BLEA [phone] [address] OFFICE [facility] 2022-07-11 2022-07-11 Outpatient R [facility] [id number] Univers 08:40:00 11:07:42 SARITA ity [facility] 2022-07-11 2022-07-11 Office [facility] 1.2.840.114 [id number] Univers 08:40:00 11:07:42 Visit Replaced by [facility] 350.1.13.10 ity of [facility] 4.2.7.2.686 Jon as STEPHANIE?BLEA [phone] [address] OFFICE [facility] 2022-07-10 2022-07-10 Patient [facility] 1.2.840.114 [id number] Univers 00:00:00 00:00:00 Secure Msg Sarita HEALTH 350.1.13.10 ity of [place] 4.2.7.2.686 Jon as STEPHANIE?BLEA [id number] [address] OFFICE [facility] 2022-07-10 2022-07-10 Patient [facility] 1.2.840.114 [id number] Univers 00:00:00 00:00:00 Secure Ms Sarita HEALTH 350.1.13.10 ity of [place] 4.2.7.2.686 Jon as STEPHANIE?BLEA [phone] [address] OFFICE [facility] 2022-07-10 2022-07-10 Telephone [facility] 1.2.288.985 [id number] Univers 00:00:00 00:00:00 Sarita HEALTH 350.1.13.10 ity of [place] 4.2.7.2.686 Jon as STEPHANIE?BLEA [phone] [address] OFFICE [facility] 2022-07-09 2022-07-09 Telephone [facility] 1.2.538.625 [id number] Univers 00:00:00 00:00:00 Sarita HEALTH 350.1.13.10 ity of [place] 4.2.7.2.686 Jon as STEPHANIE?BLEA [phone] [address] OFFICE [facility] 2022-07-07 2022-07-07 Refill [facility] 1.2.840.114 [id number] Univers 00:00:00 00:00:00 Sarita HEALTH 350.1.13.10 ity of [place] 4.2.7.2.686 Jon as STEPHANIE?BLEA [id number] [address] OFFICE [facility] 2022-07-07 2022-07-07 Patient [facility] 1.2.840.114 [id number] Univers 00:00:00 00:00:00 Secure [facility] Sarita HEALTH 350.1.13.10 ity of [place] 4.2.7.2.686 Jon as STEPHANIE?BLEA [phone] [address] OFFICE [facility] 2022-07-04 2022-07-04 Outpatient Abel FERRARI [facility] [id number] Univers 11:00:00 11:00:00 [facility] 2022-07-03 Outpatient Abel FERRARI [facility] [id number] Univers 14:20:00 14:20:00 [facility] 2022-06-23 2022[facility]06-[facility] 1.2.840.114 [id number] Univers 00:00:00 00:00:00 [place] HEALTH 350.1.13.10 ity of [place] 4.2.7.2.686 Jon as STEPHANIE?BLEA [phone] [address] OFFICE [facility] 2022-06-16 2022-06-16 Out[facility] [id number] Univers 11:00:00 11:00:00 [facility] 2022-06-16 2022-06-16 [facility] 1.2.840.114 [id number] Univers 00:00:00 00:00:00 Replaced by [facility] 350.1.13.10 ity of TELL 4.2.7.2.686 Jon as STEPHANIE?BLEA [phone] [address] OFFICE [facility] 2022-06-09 2022-06-09 Telephone [facility] 1.2.343.282 [id number] Univers 00:00:00 00:00:00 [place]UE 350.1.13.10 ity [facility] 4.2.7.2.[place] [phone] [address] E CLINIC 2022-05-29 2022-05-29 Outpatient [facility] [id number] Univers 10:40:00 10:40:00 [facility] 2022-05-26 2022-05-26 Outpatient R ALICIA [facility] [id number] Univers 00:00:00 00:00:00 POLLY [facility] 2022-05-21 2022-05-21 Patient Rima [facility] 1.2.840.114 [id number] Univers 00:00:00 00:00:00 Secure [facility] 350.1.13.10 ity of [place]LL 4.2.7.2.686 Jon as STEHPANIE?BLEA [id number] [address] OFFICE [facility] 2022-05-21 2022-05-21 [place] [facility] 1.2.479.235 [id number] Univers 00:00:00 00:00:00 [employer] [facility] 350.1.13.10 ity of TELL 4.2.7.2.686 Jon as STEPHANIE?BLEA [phone] [address] MEDICAL OFFICE BUILDING 2022-05-19 2022-05-[address] [facility] 1.2.840.114 [id number] Univers 00:00:00 00:00:00 Sarita [facility] 350.1.13.10 ity of [facility] 4.2.7.2.[place] [phone] [facility] AND [address] [place] [address] E CLINIC 2022-05-16 2022-05-16 [facility] 1.2.840.114 [id number] Univers 00:00:00 00:00:00 Sarita [facility] 350.1.13.10 ity of [facility] 4.2.7.2.[place] [phone] [facility] AND [address] [place] [address] E CLINIC 2022-05-06 2022-05-06 Outpatient R NEETU [facility] [id number] Univers 14:30:00 14:30:00 [facility] 2022-05-06 2022-05-06 Outpatient R NEETU [facility] [id number] Univers 14:30:00 14:30:00 [facility] 2022-05-06 2022-05-06 [facility] [id number] Univers 14:30:00 14:30:00 [facility] 2022-05-06 2022-05-06 Outpatient R NEETU [facility] [id number] Univers 14:30:00 14:30:00 [facility] 2022-04-30 2022-04-30 [facility] 1.2.840.114 [id number] Univers 00:00:00 00:00:00 Alexsandra PENA 350.1.13.10 it y of [facility] 4.2.7.2.686 Jon as PEDIATRIC [id number] [address] 2022-04-30 2022-04-30 Refill [facility] 1.2.840.114 [id number] Univers 00:00:00 00:00:00 Sarita HEALTH 350.1.13.10 ity of [place] 4.2.7.2.686 Jon as STEPHANIE?BLEA [phone] [address] MEDICAL OFFICE BUILDING 2022-04-22 2022-04-22 Patient [facility] 1.2.840.114 [id number] Univers 00:00:00 00:00:00 [facility] 350.1.13.10 ity of [place] 4.2.7.2.686 Jon as STEPHANIE?BLEA [phone] [address] OFFICE [facility] 2022-04-21 2022-04-21 Telephone [facility] 1.2.977.540 [id number] Univers 00:00:00 00:00:00 [place] HEALTH 350.1.13.10 ity of [place] 4.2.7.2.686 Jon as STEPHANIE?BLEA [phone] [address] OFFICE [facility] 2022-04-14 2022-04-14 Outpatient Abel VARGAS [facility] [id number] Univers 00:00:00 00:00:00 POLLY galvan [facility] 2022-04-09 2022-04-09 Telephone [facility] 1.2.789.504 [id number] Univers 00:00:00 00:00:00 [place] HEALTH 350.1.13.10 ity of [place] 4.2.7.2.686 Jon as SETPHANIE?BLEA [id number] [address] OFFICE [facility] 2022-04-08 2022-04-08 Patient [facility] 1.2.840.114 [id number] Univers 00:00:00 00:00:00 Secure Msg [place] HEALTH 350.1.13.10 ity of [place] 4.2.7.2.686 Jon as STEPHANIE?BLEA [id number] [address] OFFICE [facility] 2022-04-08 2022-04-08 Refill [facility] 1.2.840.114 [id number] Univers 00:00:00 00:00:00 Sarita LEROSEMARY 350.1.13.10 ity of [facility] 4.2.7.2.686 [place] [id number] [facility] AND [address] [place] [address] E CLINIC 2022-04-01 2022-04-01 Refrafia [facility] 1.2.840.114 [id number] Univers 00:00:00 00:00:00 Alexsandra JEAN 350.1.13.10 it y of [facility] 4.2.7.2.686 Jon as PEDIATRIC [phone] [facility] AND [address] [place] [address] E CLINIC 2022-04-01 2022-04-01 Patient [facility] 1.2.840.114 [id number] Univers 00:00:00 00:00:00 Secure Msg Replaced by [facility] 350.1.13.10 ity of [place] 4.2.7.2.686 Jon as STEPHANIE?BLEA [phone] [address] OFFICE [facility] 2022-03-31 2022-03-31 Outpatient [facility] [id number] Univers 14:20:00 16:03:25 [facility] 2022-03-31 2022-03-31 Office [facility] 1.2.840.114 [id number] Univers 14:20:00 16:03:25 Visit Replaced by [facility] 350.1.13.10 ity of [place] 4.2.7.2.686 Jon as STEPHANIE?BLEA [phone] [address] OFFICE [facility] 2022-03-31 2022-03-31 Orders Doctor JONES 1.2.840.114 [id number] Univers 00:00:00 00:00:00 Only Unassigned, MAURO 350.1.13.10 ity of [place] [facility] 4.2.7.2.686 Jon as [phone] [address] 2022-03-27 2022-03-27 [facility] [id number] Univers 14:20:00 14:20:00 SARITA [facility] 2022-03-21 2022-03-21 Outpatient R TOBY [facility] [id number] Univers 14:00:00 14:00:00 SYDNEY [facility] 2022-03-17 2022-03-17 [facility] 1.2.840.114 [id number] Univers 00:00:00 00:00:00 [facility] 350.1.13.10 ity of [place] 4.2.7.2.686 Jon as STEHPANIE?BLEA [phone] [place]ical [address] MEDICAL OFFICE BUILDING 2022-03-11 2022-03-11 [facility]ill [facility] 1.2.840.114 [id number] Univers 00:00:00 00:00:00 [facility] 350.1.13.10 ity of [facility] 4.2.7.2.[place] [phone] [place] dical AND [address] [place] [address] E CLINIC 2022-03-10 2022-03-10 Orders Doctor ROBERT 1.2.840.114 [id number] Univers 00:00:00 00:00:00 Only Unassigned, MAURO 350.1.13.10 ity of [place] [facility] 4.2.7.2.686 Jon as [phone] [address] 2022-03-05 2022-03-05 Outpatient R ALICIA [facility] [id number] Univers 14:30:00 15:25:35 POLLY mandy [facility] 2022-03-05 2022-03-05 Office [facility] 1.2.635.968 [id number] Univers 14:30:00 15:25:35 Visit Polly WILLIAM 350.1.13.10 i ty of [place] [phone] [place] dical [facility] [address] [facility] 2022-02-28 2022-02-28 Outpatient R NILA [facility] [id number] Univers 12:45:00 12:45:00 GABE galvan [facility] 2022-02-17 2022-02-17 Outpatient R ALICIA, [facility] [id number] Univers 14:30:00 14:30:00 POLLY ity [facility] 2022-02-15 2022-02-15 [facility] 1.2.840.114 [id number] Univers 00:00:00 00:00:00 Alexsandra PENA 350.1.13.10 it [facility] 4.2.7.2.686 Jon as PEDIATRIC [phone] [facility] AND [address] [place] [address] E CLINIC 2022-02-12 2022-02-12 Outpatient R SAM [facility] [id number] Univers 14:00:00 14:00:00 OMKAR ity [facility] 2022-02-06 2022-02-06 Refrafia Ellsworth, 1.2.840.3 [id number] Univers 00:00:00 00:00:00 Alexsandra 62619.1.1 ity of [place] 3.104.2.7 [place] .3.141028 Medica l .8 [place] 2022-01-24 2022-01-24 Director Of Student Financial Services Sarita Ferrari 1.2.840.1 [id number] Univers 16:00:00 16:52:01 [place], [place] [address].1.1 ity of 3.104.2.7 [place] .3.292950 Medica l .8 [place] 2022-01-24 2022-01-24 Director Of Student [employer], Ang - Db [facility] 1.2.840.1 [id number] Univers 16:00:00 16:15:00 Visit Sarita Ferrari [facility] 350.1.13.10 ity of [facility] 4.2.7.2.686 Jon as STEPHANIE?BLEA [phone] [place] tim[address] MEDICAL OFFICE BUILDING 2022-01-24 2022-01-24 [facility]patient [facility] [id number] Univers 13:00:00 14:06:30 SARITA galvan [facility] 2022-01-24 2022-01-24 [facility] 1.2.840.114 [id number] Univers 13:00:00 14:06:30 Visit Replaced by [facility] 350.1.13.10 ity of [place] 4.2.7.2.686 Jon as STEPHANIE?BLEA [phone] [place] migue JORDAN [address] [place] [address] MEDICAL OFFICE BUILDING 2022-01-24 2022-01-24 Outpatient R KLEY, [facility] [id number] Univers 13:00:00 14:06:30 SERGEANT BLUFF ity [facility] 2022-01-24 2022-01-24 Outpatient R KLEY, [facility] [id number] Univers 13:00:00 14:06:30 SERGEANT BLUFF ity [facility] 2022-01-24 2022-01-24 Outpatient R KLEY, [facility] [id number] Univers 13:00:00 14:06:30 [facility] 2022-01-24 2022-01-24 Outpatient R KLEY, [facility] [id number] Univers 13:00:00 14:06:30 SERGEANT BLUFF ity [facility] 2022-01-24 2022-01-24 Patient Kley, 1.2.840.8 [id number] Univers 00:00:00 00:00:00 Secure Msg Lamoure 78578.1.1 ity of 3.104.2.7 [place] .3.497900 Medica l .[address] [place] [address] 2022-01-24 2022-01-24 Travel 1.2.840.1 1.2.705.475 0477 4084 Univers 00:00:00 00:00:00 38229.1.1 350.1.13.10 ity of 3.104.2.7 [place].3.698 [place] .3.668756 084.8 Medica l .8 [place] 2022-01-20 2022-01-20 Patient Doctor 1.2.840.7 [id number] Univers 00:00:00 00:00:00 Secure Msg Unassigned, 06486.1.1 ity of [place] 3.104.2.7 [place] .3.321258 Medica l .8 [place] 2022-01-17 2022-01-17 Outpatient Abel FERRARI, [facility] [id number] Univers 11:00:00 11:00:00 SARITA ity [facility] 2022-01-17 2022-01-17 [facility] 1.2.840.114 [id number] Univers 00:00:00 00:00:00 Alexsandra PENA 350.1.13.10 it y of [facility] 4.2.7.2.686 Jon as PEDIATRIC [phone] [facility] AND [address] [place] [address] 2022-01-17 2022-01-17 Refill Seng, 1.2.840.1 [id number] 6197 Univers 00:00:00 00:00:00 Alexsandra 58882.1.1 ity of [facility] 3.104.2.7 [place] .3.272409 Medica l .8 [place] 2022-01-16 2022-01-16 Outpatient Abel [facility] [id number] Univers 10:15:00 10:15:00 LAKEISHA [facility] 2022-01-14 2022-01-14 Travel 1.2.840.1 1.2.624.921 1134 8077 Univers 00:00:00 00:00:00 64831.1.1 350.1.13.10 ity of 3.104.2.7 4.[place].7.3.698 [place] .3.251858 084.8 Medica l .[address] [place] [address] 2022-01-14 2022-01-14 [facility] 1.2.840.114 [id number] Univers 00:00:00 00:00:00 Alexsandra PENA 350.1.13.10 it y of [facility] 4.2.7.2.686 Jon as PEDIATRIC [phone] [address] 2022-01-14 2022-01-14 Travel 1.2.840.1 1.2.505.456 3691 8077 Univers 00:00:00 00:00:00 17468.1.1 350.1.13.10 ity of 3.104.2.7 4.[place].7.3.698 [place] .3.871572 084.8 Medica l .8 Branch 2022-01-14 2022-01-14 Refill [place], 1.2.840.8 [id number] 8060 Univers 00:00:00 00:00:00 Alexsandra 55196.1.1 ity of [place] 3.104.2.7 [place] .3.891625 Medica l .8 Branch 2022-01-08 2022-01-08 Refill [place], 1.2.840.6 [id number] 9555 8094 Univers 00:00:00 00:00:00 Alexsandra 37109.1.1 ity of [place] 3.104.2.7 [place] .3.081266 Medica l .8 Branch 2022-01-08 2022-01-08 Refill [place], 1.2.840.2 [id number] 8094 Univers 00:00:00 00:00:00 Alexsandra 92112.1.1 ity of [place] 3.104.2.7 [place] .3.385357 Medica l .8 [place] 2022-01-07 2022-01-07 Outpatient R [facility] [id number] Univers 16:15:00 16:15:00 LAKEISHA ity [facility] 2021-12-27 2021-12-27 Outpatient Abel [facility] [id number] Univers 15:00:00 15:00:00 [facility] 2021-12-25 Outpatient Abel GUY [facility] [id number] Univers 08:15:00 08:15:00 LAKEISHA ity [facility] 2021-12-18 2021-12-18 Outpatient R SAM [facility] [id number] Univers 14:15:00 14:15:00 AISOWEN ity [facility] 2021-12-12 2021-12-12 Refill [place], 1.2.840.9 [id number] 4541 Univers 00:00:00 00:00:00 Alexsandra 61176.1.1 ity of [place] 3.104.2.7 [place] .3.126851 Medica l .8 [place] 2021-12-12 2021-12-12 Refrafia [place], 1.2.840.3 [id number] 4541 Univers 00:00:00 00:00:00 Alexsandra 43918.1.1 ity of [place] 3.104.2.7 [place] .3.814879 Medica l .8 [place] 2021-12-04 2021-12-04 Patient Doctor 1.2.840.8 [id number] Univers 00:00:00 00:00:00 Secure Msg Unassigned, 39296.1.1 ity of [place] 3.104.2.7 [place] .3.618932 Medica l .8 [place] 2021-12-04 2021-12-04 Patient Doctor 1.2.840.8 [id number] Univers 00:00:00 00:00:00 Secure Msg Unassigned, 93840.1.1 ity of [place] 3.104.2.7 [place] .3.254517 Medica l .8 [place] 2021-12-03 2021-12-03 Outpatient Abel ELLSWORTH [facility] [id number] Univers 09:00:00 09:00:00 ALEXSANDRA ity [facility] 2021-11-22 2021-11-22 Outpatient Abel MCFADDEN [facility] [id number] Univers 13:45:00 14:37:39 DEBORAH galvan [facility] 2021-11-22 2021-11-22 Outpatient Abel MCFADDEN [facility] [id number] Univers 13:45:00 13:45:00 DEBORAH galvan [facility] 2021-11-22 2021-11-22 Outpatient Abel ELLSWORTH [facility] [id number] Univers 13:00:00 13:00:00 ALEXSANDRA ity [facility] 2021-11-21 2021-11-21 Travel 1.2.840.1 1.2.393.398 6569 [id number] Univers 00:00:00 00:00:00 34654.1.1 350.1.13.10 ity of 3.104.2.7 4.[place].7.3.698 [place] .3.595011 084.8 Medica l .8 Branch 2021-11-21 2021-11-21 Travel 1.2.840.1 1.2.343.110 9992 5981 Univers 00:00:00 00:00:00 57037.1.1 350.1.13.10 ity of 3.104.2.7 4.2.7.3.698 [place] .3.047878 084.8 Medica l .8 Branch 2021-11-18 2021-11-18 Outpatient R SAM, [facility] [id number] Univers 13:45:00 13:45:00 AISHAT ity of [facility] 2021-11-07 2021-11-07 Patient [place], 1.2.840.2 [id number] Univers 00:00:00 00:00:00 Secure Msg Alexsandra 05681.1.1 i ty of [place] 3.104.2.7 [place] .3.392137 Medica l .8 Branch 2021-10-15 2021-10-15 Telephone [place], 1.2.840.9 [id number] Univers 00:00:00 00:00:00 Alexsandra 55730.1.1 ity of [place] 3.104.2.7 [place] .3.472154 Medica l .8 Branch 2021-10-14 2021-10-14 Telephone [place], 1.2.840.6 [id number] Univers 00:00:00 00:00:00 Alexsandra 82689.1.1 ity of [place] 3.104.2.7 [place] .3.500065 Medica l .8 Branch 2021-10-11 2021-10-11 Office [place], 1.2.840.5 [id number] [id number] Univers 10:00:00 10:20:00 Visit Alexasndra 06075.1.1 ity of [place] 3.104.2.7 [place] .3.713752 Medica l .8 Branch 2021-10-11 2021-10-11 Outpatient R ELLSWORTH, [facility] [id number] Univers 10:00:00 10:00:00 ALEXSANDRA ity [facility] 2021-10-11 2021-10-11 Outpatient Abel ELLSWORTH [facility] [id number] Univers 10:00:00 10:00:00 ALEXSANDRA ity [facility] 2021-10-11 2021-10-11 Outpatient Abel ELLSWORTH, [facility] [id number] Univers 10:00:00 10:00:00 ALEXSANDRA ity [facility] 2021-10-09 2021-10-09 Travel 1.2.840.1 1.2.945.546 4427 [id number] Univers 00:00:00 00:00:00 15867.1.1 350.1.13.10 ity of 3.104.2.7 4.[place].7.3.698 [place] .3.772151 084.8 Medica l .8 [place] 2021-10-08 2021-10-08 Refill [place], 1.2.840.3 [id number] 0962 Univers 00:00:00 00:00:00 Alexsandra 96783.1.1 ity of [place] 3.104.2.7 [place] .3.265959 Medica l .8 [place] 2021-10-08 2021-10-08 Refill [place], 1.2.840.5 [id number] 0962 Univers 00:00:00 00:00:00 Alexsandra 37458.1.1 ity of [place] 3.104.2.7 [place] .3.121081 Medica l .8 [place] 2021-09-30 2021-09-30 Outpatient R JACQUELIN, [facility] [id number] Univers 14:00:00 14:00:[facility]11 2021-09-11 Outpatient R ADAM, [facility] [id number] Univers 14:00:00 14:00:00 NETO [facility] 2021-09-05 2021-09-05 Patient Doctor 1.2.840.0 [id number] Univers 00:00:00 00:00:00 Secure Msg Unassigned, 72109.1.1 ity of [place] 3.104.2.7 [place] .3.990996 Medica l .8 [place] 2021-09-05 2021-09-05 Patient Doctor 1.2.840.8 [id number] Univers 00:00:00 00:00:00 Secure Msg Unassigned, 69196.1.1 ity of [place] 3.104.2.7 [place] .3.816080 Medica l .8 [place] 2021-09-04 2021-09-04 Refill [place], 1.2.840.0 [id number] 9234 5046 Univers 00:00:00 00:00:00 Alexsandra 24723.1.1 ity of [place] 3.104.2.7 [place] .3.036186 Medica l .8 [place] 2021-09-04 2021-09-04 Refill [place], 1.2.840.3 [id number] 9234 5046 Univers 00:00:00 00:00:00 Alexsandra 78345.1.1 ity of [place] 3.104.2.7 [place] .3.635104 Medica l .8 [place] 2021-08-29 2021-08-29 Outpatient R OLIVIA PATY [facility] [id number] Univers 09:15:00 09:57:10 ity of [facility] 2021-08-29 2021-08-29 Outpatient Abel BAKER PATY [facility] [id number] Univers 09:15:00 09:15:00 ity of [facility] 2021-08-29 2021-08-29 Travel 1.2.840.1 1.2.903.047 7072 4916 Univers 00:00:00 00:00:00 36373.1.1 350.1.13.10 ity of 3.104.2.7 4.[place].7.3.698 [place] .3.619103 084.8 Medica l .8 [place] 2021-08-29 2021-08-29 Travel 1.2.840.1 1.2.037.481 0637 4916 Univers 00:00:00 00:00:00 61140.1.1 350.1.13.10 ity of 3.104.2.7 4.2.7.3.698 [place] .3.445191 084.8 Medica l .8 Branch 2021-08-29 2021-08-29 Travel 1.2.840.1 1.2.208.758 3007 4916 [facility] 00:00:00 00:00:00 59877.1.1 350.1.13.10 ity of 3.104.2.7 4.2.7.3.698 [place] .3.901003 084.8 Medica l .8 Branch 2021-08-08 2021-08-08 PATY Grimm [facility] [id number] [facility] 10:00:00 10:00:00 ity of [facility] 2021-08-06 2021-08-06 Travel 1.2.840.1 1.2.582.567 2344 3705 [facility] 00:00:00 00:00:00 92938.1.1 350.1.13.10 ity of 3.104.2.7 4.2.7.3.698 [place] .3.309886 084.8 Medica l .8 Branch 2021-08-06 2021-08-06 Travel 1.2.840.1 1.2.765.777 8667 3705 [facility] 00:00:00 00:00:00 85232.1.1 350.1.13.10 ity of 3.104.2.7 4.2.7.3.698 [place] .3.682865 084.8 Medica l .8 Branch 2021-08-06 2021-08-06 Travel 1.2.840.1 1.2.535.756 8598 3705 [facility] 00:00:00 00:00:00 08364.1.1 350.1.13.10 ity of 3.104.2.7 4.2.7.3.698 [place] .3.454276 084.8 Medica l .8 Branch 2021-08-042021-08-04 Refill Doctor 1.2.840.8 [id number] 340 Univers 00:00:00 00:00:00 Unassigned, 44395.1.1 ity of [place] 3.104.2.7 [place] .3.478263 Medica l .8 Branch 2021-08-04 2021-08-04 Refill [place], 1.2.840.7 [id number] 9157 6341 Univers 00:00:00 00:00:00 Alexsandra 36781.1.1 ity of [place] 3.104.2.7 [place] .3.027269 Medica l .8 Branch 2021-08-04 2021-08-04 Refill [place], 1.2.840.1 [id number] 9157 6140 Univers 00:00:00 00:00:00 Alexsandra 07966.1.1 ity of [place] 3.104.2.7 [place] .3.323324 Medica l .8 Branch 2021-08-04 2021-08-04 Refill Doctor 1.2.840.2 [id number] 139 Univers 00:00:00 00:00:00 Unassigned, 24604.1.1 ity of [place] 3.104.2.7 [place] .3.108135 Medica l .8 Branch 2021-08-04 2021-08-04 Refill [place], 1.2.840.1 [id number] 9157 6341 Univers 00:00:00 00:00:00 Alexsandra 50011.1.1 ity of [place] 3.104.2.7 [place] .3.648218 Medica l .8 Branch 2021-08-04 2021-08-04 Refill Doctor 1.2.840.7 [id number] 340 Univers 00:00:00 00:00:00 Unassigned, 69307.1.1 ity of [place] 3.104.2.7 [place] .3.236710 Medica l .8 Branch 2021-08-04 2021-08-04 Refill [place], 1.2.840.0 [id number] 9157 6140 Univers 00:00:00 00:00:00 Alexsandra 16596.1.1 ity of [place] 3.104.2.7 [place] .3.618033 Medica l .8 Branch 2021-08-04 2021-08-04 Refill Doctor 1.2.840.6 [id number] 139 Univers 00:00:00 00:00:00 Unassigned, 99759.1.1 ity of [place] 3.104.2.7 [place] .3.265775 Medica l .8 Branch 2021-08-04 2021-08-04 Refill [place], 1.2.840.8 [id number] 9157 6341 Univers 00:00:00 00:00:00 Alexsandra 50449.1.1 ity of [place] 3.104.2.7 [place] .3.603704 Medica l .8 Branch 2021-08-04 2021-08-04 Refill Doctor 1.2.840.6 [id number] 340 Univers 00:00:00 00:00:00 Unassigned, 67608.1.1 ity of [place] 3.104.2.7 [place] .3.279342 Medica l .8 Branch 2021-08-04 2021-08-04 Refill [place], 1.2.840.5 [id number] 9157 6140 Univers 00:00:00 00:00:00 Alexsandra 09054.1.1 ity of [place] 3.104.2.7 [place] .3.534960 Medica l .8 Branch 2021-08-04 2021-08-04 Refill Doctor 1.2.840.9 [id number] 139 Univers 00:00:00 00:00:00 Unassigned, 68863.1.1 ity of [place] 3.104.2.7 [place] .3.399012 Medica l .8 Branch 2021-07-19 2021-07-19 Refill [place], 1.2.840.3 [id number] 9121 3152 Univers 00:00:00 00:00:00 Alexsandra 21401.1.1 ity of [place] 3.104.2.7 [place] .3.717865 Medica l .8 Branch 2021-07-19 2021-07-19 Refill [place], 1.2.840.2 [id number] 9121 3152 Univers 00:00:00 00:00:00 Alexsandra 81670.1.1 ity of [place] 3.104.2.7 [place] .3.166295 Medica l .8 Branch 2021-07-19 2021-07-19 Refill [place], 1.2.840.9 [id number] 9121 3152 Univers 00:00:00 00:00:00 Alexsandra 37350.1.1 ity of [place] 3.104.2.7 [place] .3.507115 Medica l .8 [place] 2021-07-17 2021-07-17 Office Seng [facility] 1.2.840.114 [id number] 481 Univers 11:00:00 11:20:00 Visit Alexsandra PENA 350.1.13.10 it y of [facility] 4.2.7.2.686 Jon as PEDIATRIC [phone] Nj dical AND [address] [facility] 2021-07-17 2021-07-17 Office Seng, 1.2.840.7 [id number] 9112 7481 Univers 11:00:00 11:20:00 Visit Alexsandra 74570.1.1 ity of [place] 3.104.2.7 [place] .3.727614 Medica l .8 [place] 2021-07-17 2021-07-17 Office Seng, 1.2.840.2 [id number] 9112 7481 Univers 11:00:00 11:20:00 Visit Alexsandra 04088.1.1 ity of [place] 3.104.2.7 [place] .3.038858 Medica l .8 [place] 2021-07-17 2021-07-17 Office Seng, 1.2.840.8 [id number] 9112 7481 Univers 11:00:00 11:20:00 Visit Alexsandra 00407.1.1 ity of [place] 3.104.2.7 [place] .3.559805 Medica l .8 [place] 2021-07-17 2021-07-17 Outpatient R SENG [facility] [id number] [id number] Univers 11:00:00 11:00:00 ALEXSANDRA ity of [facility] 2021-07-17 2021-07-17 Telephone Seng, 1.2.840.8 [id number] Univers 00:00:00 00:00:00 Alexsandra 85435.1.1 ity of [place] 3.104.2.7 [place] .3.519853 Medica l .8 Branch 2021-07-17 2021-07-17 Travel 1.2.840.1 1.2.146.556 2585 7656 Univers 00:00:00 00:00:00 73585.1.1 350.1.13.10 ity of 3.104.2.7 4.2.7.3.698 [place] .3.619463 084.8 Medica l .8 Branch 2021-07-17 2021-07-17 [place] Seng, 1.2.840.0 [id number] Univers 00:00:00 00:00:00 Alexsandra 39819.1.1 ity of [place] 3.104.2.7 [place] .3.361512 Medica l .8 Branch 2021-07-17 2021-07-17 Travel 1.2.840.1 1.2.447.396 8075 7656 Univers 00:00:00 00:00:00 63428.1.1 350.1.13.10 ity of 3.104.2.7 4.2.7.3.698 [place] .3.246390 084.8 Medica l .8 Branch 2021-07-17 2021-07-17 [place], 1.2.840.7 [id number] Univers 00:00:00 00:00:00 Alexsandra 44428.1.1 ity of [place] 3.104.2.7 [place] .3.675926 Medica l .8 Branch 2021-07-17 2021-07-17 Travel 1.2.840.1 1.2.851.043 3694 7656 Univers 00:00:00 00:00:00 82780.1.1 350.1.13.10 ity of 3.104.2.7 4.2.7.3.698 [place] .3.265822 084.8 Medica l .8 Branch 2021-07-15 2021-07-15 Travel 1.2.840.1 1.2.175.893 6845 4694 Univers 00:00:00 00:00:00 85594.1.1 350.1.13.10 ity of 3.104.2.7 4.2.7.3.698 [place] .3.946657 084.8 Medica l .8 Branch 2021-07-15 2021-07-15 Travel 1.2.840.1 1.2.101.978 8921 4694 Univers 00:00:00 00:00:00 64960.1.1 350.1.13.10 ity of 3.104.2.7 4.2.7.3.698 [place] .3.129755 084.8 Medica l .8 [place] 2021-07-15 2021-07-15 Travel 1.2.840.1 1.2.119.557 9165 4694 Univers 00:00:00 00:00:00 35704.1.1 350.1.13.10 ity of 3.104.2.7 4.2.7.3.698 [place] .3.422883 084.8 Medica l .8 [place] 2021-07-09 2021-07-09 Outpatient R SENG OHGREGORY [facility] [id number] Univers 14:20:00 14:20:00 ALEXSANDRA ity of [facility] 2021-07-04 2021-07-04 Telephone Seng OHGREGORY 1.2.840.114 907 [id number] Univers 00:00:00 00:00:00 Alexsandra PENA 350.1.13.10 it y of [facility] 4.2.7.2.686 Jon as PEDIATRIC [phone] Nj dicnm AND [address] [place] [address] CLINIC 2021-07-04 2021-07-04 Telephone Seng .2.840.4 [id number] 90 [id number] Univers 00:00:00 00:00:00 Alexsandra 81561.1.1 ity of [place] 3.104.2.7 [place] .3.307073 Medica l .8 [place] 2021-07-04 2021-07-04 Telephone [place], 1.2.840.0 [id number] Univers 00:00:00 00:00:00 Alexsandra 17126.1.1 ity of [place] 3.104.2.7 [place] .3.860608 Medica l .8 [place] 2021-07-03 2021-07-03 Patient Doctor 1.2.840.8 [id number] 12338 649 Univers 00:00:00 00:00:00 Secure Msg Unassigned, 73903.1.1 ity of [place] 3.104.2.7 [place] .3.154997 Medica l .8 [place] 2021-07-03 2021-07-03 Patient Doctor 1.2.840.0 [id number] 40260 649 Univers 00:00:00 00:00:00 Secure Msg Unassigned, 74145.1.1 ity of [place] 3.104.2.7 [place] .3.041983 Medica l .8 [place] 2021-07-03 2021-07-03 Patient Doctor 1.2.840.8 [id number] 25269 649 Univers 00:00:00 00:00:00 Secure Msg Unassigned, 49385.1.1 ity of [place] 3.104.2.7 [place] .3.121302 Medica l .8 [place] 2021-06-29 2021-06-29 Telephone [place], 1.2.840.0 [id number] 90 [id number] Univers 00:00:00 00:00:00 Alexsandra 18064.1.1 ity of [place] 3.104.2.7 [place] .3.138733 Medica l .8 [place] 2021-06-29 2021-06-29 Telephone [place], 1.2.840.7 [id number] 90 [id number] Univers 00:00:00 00:00:00 Alexsandra 69078.1.1 ity of [place] 3.104.2.7 [place] .3.711938 Medica l .8 Branch 2021-06-29 2021-06-29 Telephone [place], 1.2.840.3 [id number] Univers 00:00:00 00:00:00 Alexsandra 56553.1.1 ity of [place] 3.104.2.7 [place] .3.152223 Medica l .8 [place] 2021-06-14 2021-06-14 Patient Doctor 1.2.840.6 [id number] 314 Univers 00:00:00 00:00:00 Secure Msg Unassigned, 44197.1.1 ity of [place] 3.104.2.7 [place] .3.957313 Medica l .8 [place] 2021-06-14 2021-06-14 Patient Doctor 1.2.840.2 [id number] 314 Univers 00:00:00 00:00:00 Secure Msg Unassigned, 57474.1.1 ity of [place] 3.104.2.7 [place] .3.220754 Medica l .8 [place] 2021-06-14 2021-06-14 Patient Doctor 1.2.840.8 [id number] 314 Univers 00:00:00 00:00:00 Secure Msg Unassigned, 70574.1.1 ity of [place] 3.104.2.7 [place] .3.880904 Medica l .8 [place] 2021-06-01 2021-06-01 Refill Marin, 1.2.840.0 [id number] 853 Univers 00:00:00 00:00:00 Miya 21704.1.1 ity of 3.104.2.7 [place] .3.816379 Medica l .8 [place] 2021-06-01 2021-06-01 Refill Marin, 1.2.840.6 [id number] 94852 853 Univers 00:00:00 00:00:00 Miya 69729.1.1 ity of 3.104.2.7 [place] .3.932374 Medica l .8 [place] 2021-05-28 2021-05-28 Patient Doctor 1.2.840.9 [id number] 558 Univers 00:00:00 00:00:00 Secure Msg Unassigned, 90958.1.1 ity of [place] 3.104.2.7 [place] .3.232280 Medica l .8 [place] 2021-05-28 2021-05-28 Patient Doctor 1.2.840.9 [id number] 558 Univers 00:00:00 00:00:00 Secure Msg Unassigned, 08638.1.1 ity of [place] 3.104.2.7 [place] .3.298809 Medica l .8 [place] 2021-05-20 2021-05-20 Outpatient R KORY [facility] [id number] Univers 14:45:00 14:45:00 MARINE itarsenio [facility] 2021-05-18 2021-05-18 Outpatient R SALVADOR [facility] [id number] Univers 20:45:00 20:59:51 EKTA [facility] it y [facility] 2021-05-18 2021-05-18 Urgent Unknown, Attending 1.2.840.1 [id number] Univers 20:45:00 20:59:51 Ekta Russ 31511.1.1 ity of 3.104.2.7 [place] .3.349626 Medica l .[address] [place] [address] 2021-05-18 2021-05-18 Urgent Unknown, Attending 1.2.840.1 [id number] Univers 20:45:00 20:59:51 Ekta Russ 01391.1.1 ity of 3.104.2.7 [place] .3.648885 Medica l .8 [place] 2021-05-09 2021-05-09 Outpatient R PATY BAKER [facility] [id number] Univers 10:00:00 10:57:06 ity of [facility] 2021-05-09 2021-05-09 Travel 1.2.840.1 1.2.853.501 [id number] Univers 00:00:00 00:00:00 45859.1.1 350.1.13.10 ity of 3.104.2.7 4[place].3.698 [place] .3.926980 084.8 Medica l .8 [place] 2021-05-09 2021-05-09 Travel 1.2.840.1 1.2.216.602 [id number] [id number] Univers 00:00:00 00:00:00 92651.1.1 350.1.13.10 ity of 3.104.2.7 4[place].3.698 [place] .3.688260 084.8 Medica l .8 [place] 2021-05-06 2021-05-06 Refill [place], 1.2.840.2 [id number] Univers 00:00:00 00:00:00 Alexsandra 33019.1.1 ity of [place] 3.104.2.7 [place] .3.324775 Medica l .8 [place] 2021-04-12 2021-04-12 Refill [place], 1.2.840.8 [id number] Univers 00:00:00 00:00:00 Alexsandra 20276.1.1 ity of [place] 3.104.2.7 [place] .3.315050 Medica l .8 [place] 2021-04-11 2021-04-11 Outpatient PATY REECE [facility] [id number] Univers 08:30:00 08:30:00 ity of [facility] 2021-04-10 2021-04-10 Travel 1.2.840.1 1.2.434.890 [id number] Univers 00:00:00 00:00:00 35629.1.1 350.1.13.10 ity of 3.104.2.7 4.[place]7.3.698 [place] .3.611516 084.8 Medica l .8 [place] 2021-04-01 2021-04-01 Travel 1.2.840.1 1.2.088.758 [id number] Univers 00:00:00 00:00:00 48271.1.1 350.1.13.10 ity of 3.104.2.7 4.[place]7.3.698 [place] .3.334806 084.8 Medica l .8 [place] 2021-03-22 2021-03-22 Outpatient R ARELY HOPKINS [facility] [id number] Univers 09:15:00 09:15:00 ity of [facility] 2021-03-12 2021-03-12 Patient Doctor 1.2.840.7 [id number] Univers 00:00:00 00:00:00 Secure Msg Unassigned, 42440.1.1 ity of [place] 3.104.2.7 [place] .3.531670 Medica l .8 [place] 2021-03-08 2021-03-08 Patient Doctor 1.2.840.2 [id number] Univers 00:00:00 00:00:00 Secure Msg Unassigned, 05234.1.1 ity of [place] 3.104.2.7 [place] .3.709292 Medica l .8 [place] 2021-03-07 2021-03-07 Outpatient R PATY BAKRE [facility] [id number] Univers 08:30:00 08:30:00 ity of [facility] 2021-03-05 2021-03-05 Patient Doctor 1.2.840.8 [id number] Univers 00:00:00 00:00:00 Secure Msg Unassigned, 69026.1.1 ity of [place] 3.104.2.7 [place] .3.365089 Medica l .8 [place] 2021-03-01 2021-03-01 Office Seng [facility] 1.2.840.114 [id number] Univers 14:44:46 15:04:46 Visit Alexsandra PENA 350.1.13.10 it y of [place] 4.2.7.2.686 Jon as PEDIATRIC [id number] [facility] AND [address] [place] [address] CLINIC 2021-03-01 2021-03-01 Office Seng, 1.2.840.3 [id number] Univers 14:44:46 15:04:46 Visit Alexsandra 12010.1.1 ity of [place] 3.104.2.7 [place] .3.254836 Medica l .8 [place] 2021-03-01 2021-03-01 Outpatient R SENG, [facility] [id number] Univers 14:40:00 14:40:00 ALEXSANDRA ity of [facility] 2021-02-28 2021-02-28 Refill Doctor 1.2.840.4 [id number] Univers 00:00:00 00:00:00 Unassigned, 62750.1.1 ity of [place] 3.104.2.7 [place] .3.580342 Medica l .8 [place] 2021-02-28 2021-02-28 Refill Doctor 1.2.840.8 [id number] Univers 00:00:00 00:00:00 Unassigned, 40278.1.1 ity of [place] 3.104.2.7 [place] .3.736831 Medica l .8 [place] 2021-02-28 2021-02-28 Travel 1.2.840.1 1.2.282.497 4204 [id number] Univers 00:00:00 00:00:00 46239.1.1 350.1.13.10 ity of 3.104.2.[place]3.698 [place] .3.195729 084.8 Medica l .8 [place] 2021-02-28 2021-02-28 Refill Doctor 1.2.840.0 [id number] Univers 00:00:00 00:00:00 Unassigned, 55723.1.1 ity of [place] 3.104.2.7 [place] .3.713328 Medica l .8 [place] 2021-02-28 2021-02-28 Refill Doctor 1.2.840.4 [id number] [id number] Univers 00:00:00 00:00:00 Unassigned, 95374.1.1 ity of [place] 3.104.2.7 [place] .3.159677 Medica l .8 Branch 2021-02-28 2021-02-28 Travel 1.2.840.1 1.2.218.545 9646 4039 Univers 00:00:00 00:00:00 13684.1.1 350.1.13.10 ity of 3.104.2.7 [place].3.698 [place] .[place].677168 084.8 Med[place] l .8 Branch 2021-02-16 2021-02-16 Refill [place], 1.2.840.9 [id number] 8731 5078 Univers 00:00:00 00:00:00 Alexsandra 33098.1.1 ity of [place] 3.104.2.7 [place] .3.205943 Medica l .8 Branch 2021-02-16 2021-02-16 Refill [place], 1.2.840.5 [id number] 8731 5078 Univers 00:00:00 00:00:00 Alexsandra 18146.1.1 ity of [place] 3.104.2.7 [place] .3.467359 Medica l .8 Branch 2021-02-01 2021-02-01 Outpatient ARELY LARES [facility] [id number] [id number] Univers 10:00:00 10:00:00 ity of [facility] 2021-02-01 2021-02-01 Travel 1.2.840.1 1.2.511.469 4046 2575 Univers 00:00:00 00:00:00 93775.1.1 350.1.13.10 ity of 3.104.2.7 [place]7.3.698 [place] .3.916102 4.8 Med[place] l .8 Branch 2021-02-01 2021-02-01 Travel 1.2.840.1 1.2.368.087 8131 2575 Univers 00:00:00 00:00:00 90340.1.1 350.1.13.10 ity of 3.104.2.7 [place].3.698 [place] .3.630807 084.8 Med[place] l .8 Branch 2021-01-30 2021-01-30 Travel 1.2.840.1 1.2.405.163 4724 0552 Univers 00:00:00 00:00:00 99387.1.1 350.1.13.10 ity of 3.104.2.7 [place]7.3.698 [place] .3.455408 084.8 [place] .8 [place] 2021-01-30 2021-01-30 Travel 1.2.840.1 1.2.465.057 9391 0552 Univers 00:00:00 00:00:00 43568.1.1 350.1.13.10 ity of 3.104.2.7 [place].3.698 [place] .3.350814 084.8 [place] .8 [place] 2021-01-21 2021-01-21 Outpatient GCCOVIDV GCCOVIDV 09124 18114 GCCOVID 00:00:00 00:00:00 2020-12-28 2020-12-28 Outpatient ARELY LARES [facility] 098 [id number] Univers 10:00:00 10:00:00 ity of [facility] 2020-12-28 2020-12-28 Travel 1.2.840.1 1.2.901.075 6419 5281 Univers 00:00:00 00:00:00 30899.1.1 350.1.13.10 ity of 3.104.2.7 [place]7.3.698 [place]3.742353 084.8 Med[place] l .8 [place] 2020-12-14 2020-12-14 Outpatient ARELY LARES [facility] [id number] Univers 10:00:00 10:00:00 ity of [facility] 2020-12-14 2020-12-14 Travel 1.2.840.1 1.2.498.090 2556 9498 Univers 00:00:00 00:00:00 42002.1.1 350.1.13.10 ity of 3.104.2.7 [place]7.3.698 [place] .3.666097 084.8 [place] l .8 [place] 2020-12-11 2020-12-11 Refrafia [place], 1.2.840.4 [id number] 8555 5495 Univers 00:00:00 00:00:00 Alexsandra 78352.1.1 ity of [place] 3.104.2.7 [place] .3.847647 Medica l .8 [place] 2020-11-30 2020-11-30 Outpatient R BOGDAN, [facility] [id number] Univers 13:30:00 13:30:00 DEBORAH ity of [facility] 2020-11-24 2020-11-24 Nurse Paulina Reese 1.2.840.6 [id number] Univers 00:00:00 00:00:00 Triage 38950.1.1 ity of 3.104.2.7 [place] .3.028703 Medica l .8 [place] 2020-11-13 2020-11-13 Office [place], 1.2.840.9 [id number] 13526 323 Univers 14:35:52 15:05:52 Visit Rajinder Uriarte 72101.1.1 i ty of 3.104.2.7 [place] .3.128162 Medica l .8 [place] 2020-11-13 2020-11-13 Outpatient R SALINAS, [facility] [id number] Univers 14:30:00 14:30:00 RAJINDER ity o f [facility] 2020-11-13 2020-11-13 Travel 1.2.840.1 1.2.733.337 1715 9568 Univers 00:00:00 00:00:00 68658.1.1 350.1.13.10 ity of 3.104.2.7 [place].7.3.698 [place]3.679614 084.8 Medica l .8 [place] 2020-11-10 2020-11-10 Refill Seng 1.2.840.1 [id number] 8482 9060 Univers 00:00:00 00:00:00 Alexsandra 74754.1.1 ity of [place] 3.104.2.7 [place] .3.834389 Medica l .8 [place] 2020-11-10 2020-11-10 Refill Serge 1.2.840.8 [id number] 848 38494 Univers 00:00:00 00:00:00 [place] 23080.1.1 ity of [place] 3.104.2.7 [place] .3.016308 Medica l .8 [place] 2020-10-31 2020-10-31 Outpatient R TREMAYNE, [facility] 1032 [id number] Univers 08:45:00 08:45:00 DDAA ity [facility] [place] 2020-10-10 2020-10-10 [facility] [id number] Univers 09:15:00 09:15:00 DADA ity [facility] [place] 2020-10-09 2020-10-09 Refill Flash, 1.2.840.4 [id number] 681 Univers 00:00:00 00:00:00 Pepito K 90821.1.1 i ty of 3.104.2.7 [place] .3.646275 Medica l .8 [place] 2020-10-01 2020-10-01 Refill Seng, 1.2.840.5 [id number] 8382 5936 Univers 00:00:00 00:00:00 Alexsandra 47826.1.1 ity of [place] 3.104.2.7 [place] .3.581396 Medica l .8 [place] 2020-10-01 2020-10-01 Refill Serge, 1.2.840.2 [id number] 838 44677 Univers 00:00:00 00:00:00 [place] 65269.1.1 ity of [place] 3.104.2.7 [place] .3.560862 Medica l .8 [place] 2020-10-01 2020-10-01 Patient Seng, 1.2.840.0 [id number] 8383 5511 Univers 00:00:00 00:00:00 Secure Msg Alexsandra 32925.1.1 i ty of [place] 3.104.2.7 [place] .3.445545 Medica l .8 [place] 2020-09-27 2020-09-27 Outpatient R NILA [facility] [id number] Univers 15:45:00 15:45:00 GABE ity [facility] [place] 2020-09-27 2020-09-27 Travel 1.2.840.1 1.2.441.716 7889 6648 Univers 00:00:00 00:00:00 86215.1.1 350.1.13.10 ity of 3.104.2.7 [place]7.3.698 [place]3.363605 084.8 Medica l .8 [place] 2020-09-21 2020-09-21 Outpatient R ALONDRA, [facility] 1032 [id number] Univers 15:00:00 15:00:00 CARLEY ity of [facility] 2020-09-11 2020-09-11 Office Seng, 1.2.840.1 [id number] 8327 3420 Univers 13:04:54 13:24:54 Visit Alexsandra 67110.1.1 ity of [place] 3.104.2.7 [place] .3.929532 Medica l .8 [place] 2020-09-11 2020-09-11 Outpatient R SENG [facility] [id number] Univers 13:00:00 13:00:00 ALEXSANDRA ity of [facility] 2020-09-10 2020-09-10 Travel 1.2.840.1 1.2.274.723 5180 7674 Univers 00:00:00 00:00:00 50250.1.1 350.1.13.10 ity of 3.104.2.7 [place].7.3.698 [place] .3.224921 084.8 Med[place] l .8 [place] 2020-09-10 2020-09-10 Patient Doctor 1.2.840.8 [id number] 07932 740 Univers 00:00:00 00:00:00 Secure Msg Unassigned, 33559.1.1 ity of [place] 3.104.2.7 [place] .3.158491 Medica l .8 Branch 2020-09-09 2020-09-09 Refill Flash, 1.2.840.4 [id number] 00130 614 Univers 00:00:00 00:00:00 Pepito Landry 19327.1.1 i ty of 3.104.2.7 [place] .3.766791 Medica l .8 Branch 2020-09-09 2020-09-09 Jasper Valentine 1.2.840.1 [id number] 832 01292 Univers 00:00:00 00:00:00 Keshawn 00391.1.1 ity of [place] 3.104.2.7 [place] .3.015469 Medica l .8 [place] 2020-08-23 2020-08-23 Outpatient ARELY LARES [facility] [id number] Univers 13:30:00 13:30:00 ity of [facility] 2020-08-22 2020-08-22 Travel 1.2.840.1 1.2.530.322 4954 0434 Univers 00:00:00 00:00:00 70861.1.1 350.1.13.10 ity of 3.104.2.7 [place].7.3.698 [place] .3.504922 084.8 Med[place] l .8 [place] 2020-08-09 2020-08-09 Jasper Valentine 1.2.840.1 [id number] 822 52784 Univers 00:00:00 00:00:00 [place] 62829.1.1 ity of [place] 3.104.2.7 [place] .3.430474 Medica l .8 [place] 2020-07-20 2020-07-20 Outpatient Able BELL [facility] [id number] Univers 09:20:00 09:20:00 RODRÍGUEZ ity of [facility] 2020-07-20 2020-07-20 Imm/Inj Rodríguez Bell 1.2.840.1 [id number] Univers 09:04:42 09:05:00 Visit Nurse, Adc Pob Immunization 36706.1.1 ity of 3.104.2.7 [place] .3.996581 Medica l .8 [place] 2020-07-20 2020-07-20 Outpatient GCCOVIDV GCCOVIDV 24955 [id number] GCCOVID 00:00:00 00:00:00 2020-07-12 2020-07-12 Outpatient ARELY LARES [facility] 201 [id number] Univers 13:30:00 13:30:00 ity of [facility] 2020-07-12 2020-07-12 Travel 1.2.840.1 1.2.551.870 3744 5735 Univers 00:00:00 00:00:00 52938.1.1 350.1.13.10 ity of 3.104.2.7 [place].7.3.698 [place] .3.245785 084.8 Medica l .8 [place] 2020-07-12 2020-07-12 Orders Doctor 1.2.840.1 [id number] [id number] Univers 00:00:00 00:00:00 Only Unassigned, 26167.1.1 ity of [place] 3.104.2.7 [place] .3.695599 Medica l .8 [place] 2020-07-06 2020-07-06 Refrafia Valentine, 1.2.840.5 [id number] 813 67722 Univers 00:00:00 00:00:00 Keshawn 52788.1.1 ity of [place] 3.104.2.7 [place] .3.333446 Medica l .8 [place] 2020-07-06 2020-07-06 Refrafia Greer, 1.2.840.9 [id number] [id number] 659 Univers 00:00:00 00:00:00 Wu 05332.1.1 ity of 3.104.2.7 [place] .3.912763 Medica l .8 [place] 2020-06-29 2020-06-29 Outpatient Abel BELL [facility] [id number] Univers 09:20:00 09:20:00 RODRÍGUEZ ity of [facility] 2020-06-29 2020-06-29 Imm/Inj Rodríguez Bell 1.2.840.1 [id number] Univers 09:00:27 09:07:28 Visit Nurse, Henrandez Podwight Immunization 07553.1.1 ity of 3.104.2.7 [place] .3.721037 Medica l .8 [place] 2020-06-29 2020-06-29 Outpatient GCCOVIDV GCCOVIDV 80413 64701 GCCOVID 00:00:00 00:00:00 2020-06-29 2020-06-29 Refill Serge, 1.2.840.9 [id number] 811 67302 Univers 00:00:00 00:00:00 Keshawn 87656.1.1 ity of [place] 3.104.2.7 [place] .3.607544 Medica l .8 Branch 2020-06-28 2020-06-28 Outpatient R TOBIN, [facility] [id number] Univers 08:10:00 08:10:00 MARTELL ity of [facility] 2020-06-26 2020-06-26 Patient Tobin, 1.2.840.1 [id number] [id number] Univers 00:00:00 00:00:00 Outreach Martell 76077.1.1 ity of [place] 3.104.2.7 [place] .3.865962 Medica l .8 Branch 2020-06-25 2020-06-25 Refrafia Valentine, 1.2.840.3 [id number] 810 [id number] Univers 00:00:00 00:00:00 Keshawn 56546.1.1 ity of [place] 3.104.2.7 [place] .3.304903 Medica l .8 Branch 2020-06-21 2020-06-21 Patient Doctor 1.2.840.7 [id number] 616 Univers 00:00:00 00:00:00 Secure Msg Unassigned, 16747.1.1 ity of [place] 3.104.2.7 [place] .3.243848 Medica l .8 Branch 2020-06-20 2020-06-20 Patient Serge, 1.2.840.5 [id number] 809 73651 Univers 00:00:00 00:00:00 Secure Msg [place] 48469.1.1 i ty of [place] 3.104.2.7 [place] .3.744867 Medica l .8 Branch 2020-06-20 2020-06-20 Patient Serge, 1.2.840.4 [id number] 809 96939 Univers 00:00:00 00:00:00 Secure Msg [place] 96298.1.1 i ty of [place] 3.104.2.7 [place] .3.216773 Medica l .8 [place] 2020-06-18 2020-06-18 Office Serge, 1.2.840.3 [id number] 804 52782 Univers 09:39:03 09:59:03 Visit [place] 12777.1.1 ity of [place] 3.104.2.7 [place] .3.954377 Medica l .8 [place] 2020-06-18 2020-06-18 Outpatient Abel VALENTINE [facility] 30816 12074 Univers 09:40:00 09:40:00 KESHAWN ity of [facility] 2020-06-18 2020-06-18 Orders Doctor 1.2.840.9 [id number] 10170 572 Univers 00:00:00 00:00:00 Only Unassigned, 37099.1.1 ity of [place] 3.104.2.7 [place] .3.204114 Medica l .8 [place] 2020-06-12 2020-06-12 Patient Serge, 1.2.840.6 [id number] 806 67984 Univers 00:00:00 00:00:00 Secure Msg Keshawn 21537.1.1 i ty of [place] 3.104.2.7 [place] .3.779498 Medica l .8 [place] 2020-06-01 2020-06-01 Refrafia Valentine, 1.2.840.0 [id number] 804 53549 Univers 00:00:00 00:00:00 Keshawn 35784.1.1 ity of [place] 3.104.2.7 [place] .3.573684 Medica l .8 [place] 2020-05-27 2020-05-27 Refrafia Valentine 1.2.840.7 [id number] 803 93852 Univers 00:00:00 00:00:00 Keshawn 02223.1.1 ity of [place] 3.104.2.7 [place] .3.850761 Medica l .8 [place] 2020-05-10 2020-05-10 Outpatient Abel VALENTINE [facility] 30394 [id number] Univers 13:20:00 13:20:00 KESHAWN ity of [facility] 2020-05-07 2020-05-07 Patient Doctor 1.2.840.4 [id number] Univers 00:00:00 00:00:00 Secure Msg Unassigned, 28536.1.1 ity of [place] 3.104.2.7 [place] .3.778474 Medica l .8 Branch 2020-04-28 2020-04-28 Jasper Valentine, 1.2.840.3 [id number] 797 84203 Univers 00:00:00 00:00:00 [place] 08020.1.1 ity of [place] 3.104.2.7 [place] .3.376324 Medica l .8 Branch 2020-04-23 2020-04-23 Cherry Valentine, 1.2.840.2 [id number] Univers 00:00:00 00:00:00 Keshawn 30196.1.1 ity of [place] 3.104.2.7 [place] .3.932449 Medica l .8 Branch 2020-04-23 2020-04-23 Jasper Valentine, 1.2.840.8 [id number] 795 90284 Univers 00:00:00 00:00:00 Keshawn 38298.1.1 ity of [place] 3.104.2.7 [place] .3.831141 Medica l .8 Branch 2020-04-21 2020-04-21 Jasper Valentine, 1.2.840.9 [id number] 795 81803 Univers 00:00:00 00:00:00 [place] 14675.1.1 ity of [place] 3.104.2.7 [place] .3.069402 Medica l .8 Branch 2020-04-21 2020-04-21 Jasper Valentine, 1.2.840.0 [id number] 795 94120 Univers 00:00:00 00:00:00 [place] 70254.1.1 ity of [place] 3.104.2.7 [place] .3.093941 Medica l .8 Branch 2020-04-20 2020-04-20 Jasper Valentine, 1.2.840.5 [id number] 795 15135 Univers 00:00:00 00:00:00 Keshawn 68244.1.1 ity of [place] 3.104.2.7 [place] .3.645266 Medica l .8 Branch 2020-03-30 2020-03-30 NANCY Yip 1.2.234.341 4106 9685 Univers 00:00:00 00:00:00 [place] LEAGUE 350.1.13.10 it y of [facility] [place] 602.6328218 Me dical AND [address] [place] [address] 2020-03-20 2020-03-20 Jasper Valentine OHGREGORY 1.2.502.105 5395 0201 Univers 00:00:00 00:00:00 [place]ha[place] LEAGUE 350.1.13.10 it y [place] [facility] [place] 877.9945831 Me dical AND [address] [place] [address] 2020-02-20 2020-02-20 Jasper Valentine OHGREGORY 1.2.656.555 8734 6247 00:00:00 00:00:00 K[place]hawn LEROSEMARY 350.1.13.10 [facility] 4.2.7.2.686 PEDIATRIC [phone] AND [address] [place] [address] 2020-02-20 2020-02-20 Jasper Greer OHGREGORY 1.2.840.114 [id number] 50 00:00:00 00:00:00 Wu SPECIALTY 350.1.13.10 CARE 4.2.7.2.686 CENTER AT 011.9732905 [address] 2020-02-20 2020-02-20 Jasper Valentine OHGREGORY 1.2.807.250 2359 6247 Univers 00:00:00 00:00:00 Keshawn LEROSEMARY 350.1.13.10 it y of [facility] 4[place] 777.6034805 Me dical AND [address] [place] [address] 2020-02-20 2020-02-20 Jasper Greer OHGREGORY 1.2.840.114 [id number] 50 Univers 00:00:00 00:00:00 Wu SPECIALTY 350.1.13.10 it[place]2.[place] [phone] Me dical [address] 2020-02-19 2020-02-19 Jasper Valentine OHGREGORY 1.2.397.089 6084 3151 00:00:00 00:00:00 Keshawn LEAGUE 350.1.13.10 [facility] 4.2.7.2.686 PEDIATRIC [phone] AND [address] [place] [address] E [facility] 2020-02-19 2020-02-19 [facility] 1.2.303.004 4559 3151 Univers 00:00:00 00:00:00 [place] LEAGUE 350.1.13.10 it y [place] [facility] 4[place] 682.6931551 Me dical AND [address] [place] [address] E [facility] 2020-01-19 2020-01-19 [facility] 1.2.743.980 1009 8022 00:00:00 00:00:00 Keshawn LEAGUE 350.1.13.10 [facility] 4.2.7.2.686 PEDIATRIC [phone] AND [address] [place] [address] 2020-01-19 2020-01-19 [facility] 1.2.317.778 1906 8022 Univers 00:00:00 00:00:00 [place] LEAGUE 350.1.13.10 it y of [facility] 4[place]7.2.[place] [phone] Me dical AND [address] [place] [address] 2019-12-30 2019-12-30 Telephone Nurse, Jon 1.2.840.5 [id number] Univers 00:00:00 00:00:00 Urgent 47781.1.1 ity of 3.104.2.7 [place] .3.692588 Medica l .8 [place] 2019-12-27 2019-12-27 Patient Serge, 1.2.840.7 [id number] 769 [id number] Univers 00:00:00 00:00:00 Secure Msg [place] 60456.1.1 i ty of [facility] 3.104.2.7 [place] .3.633999 Medica l .8 [place] 2019-12-27 2019-12-27 Patient Doctor 1.2.840.4 [id number] 517 Univers 00:00:00 00:00:00 Secure Msg Unassigned, 80433.1.1 ity of [place] 3.104.2.7 [place] .3.638084 Medica l .8 Branch 2019-12-25 2019-12-25 Laboratory Unknown, Attending 1.2.840.1 10 [id number] Univers 16:44:25 16:52:18 Only Nicolas Siddiqui 00379.1.1 ity of Nurse, Jon Urgent 3.104.2.7 [place] .3.784826 Medica l .8 Branch 2019-12-25 2019-12-25 Outpatient R UNKNOWN, [facility] [id number] Univers 16:45:00 16:45:00 ATTENDING ity of [facility] 2019-12-25 2019-12-25 Travel 1.2.840.1 1.2.729.874 9252 7683 Univers 00:00:00 00:00:00 88724.1.1 350.1.13.10 ity of 3.104.2.7 [place]7.3.698 [place] .3.485142 084.8 Medica l .8 Branch 2019-12-19 2019-12-19 Jasper Valentine, 1.2.840.5 [id number] 767 [id number] Univers 00:00:00 00:00:00 Keshawn 29968.1.1 ity of [place] 3.104.2.7 [place] .3.836999 Medica l .8 Branch 2019-12-09 2019-12-09 Jasper Valentine 1.2.840.8 [id number] 765 [id number] Univers 00:00:00 00:00:00 [place] 77569.1.1 ity of [place] 3.104.2.7 [place] .3.889832 Medica l .8 Branch 2019-11-24 2019-11-24 Orders Doctor 1.2.840.5 [id number] 647 Univers 00:00:00 00:00:00 Only Unassigned, 79588.1.1 ity of [place] 3.104.2.7 [place] .3.486217 Medica l .8 Branch 2019-11-22 2019-11-22 Jasper Valentine 1.2.840.2 [id number] 761 14923 Univers 00:00:00 00:00:00 Keshawn 58266.1.1 ity of [place] 3.104.2.7 [place] .3.112582 Medica l .8 Branch 2019-11-19 2019-11-19 Jasper Valentine 1.2.840.0 [id number] 761 31122 Univers 00:00:00 00:00:00 [place] 04551.1.1 ity of [place] 3.104.2.7 [place] .3.603556 Medica l .8 Branch 2019-11-16 2019-11-16 Orders Doctor 1.2.840.4 [id number] 70087 037 Univers 00:00:00 00:00:00 Only Unassigned, 09076.1.1 ity of [place] 3.104.2.7 [place] .3.668261 Medica l .8 Branch 2019-11-16 2019-11-16 Telephone Krrafia, 1.2.840.5 [id number] 760 [id number] Univers 00:00:00 00:00:00 Wu 92968.1.1 ity of 3.104.2.7 [place] .3.332912 Medica l .8 Branch 2019-11-08 2019-11-08 Orders Doctor 1.2.840.9 [id number] 933 Univers 00:00:00 00:00:00 Only Unassigned, 61781.1.1 ity of [place] 3.104.2.7 [place] .3.189273 Medica l .8 Branch 2019-10-19 2019-10-19 Jasper Valentine 1.2.840.7 [id number] 756 12644 Univers 00:00:00 00:00:00 [place] 94072.1.1 ity of [place] 3.104.2.7 [place] .3.687705 Medica l .8 Branch 2019-10-19 2019-10-19 Jasper Valentine 1.2.840.1 [id number] 756 91099 Univers 00:00:00 00:00:00 Keshawn 54146.1.1 ity of [place] 3.104.2.7 [place] .3.494591 Medica l .8 Branch 2019-10-18 2019-10-18 Orders Doctor 1.2.840.6 [id number] 998 Univers 00:00:00 00:00:00 Only Unassigned, 70261.1.1 ity of [place] 3.104.2.7 [place] .3.243167 Medica l .8 Branch 2019-10-18 2019-10-18 Telephone Zoey, 1.2.840.5 [id number] 756 14863 Univers 00:00:00 00:00:00 Wu 86576.1.1 ity of 3.104.2.7 [place] .3.382697 Medica l .8 Branch 2019-10-11 2019-10-11 Jasper Valentine 1.2.840.6 [id number] 755 15329 Univers 00:00:00 00:00:00 Keshawn 23709.1.1 ity of [place] 3.104.2.7 [place] .3.106537 Medica l .8 Branch 2019-10-11 2019-10-11 Jasper Valentine 1.2.840.5 [id number] 755 36238 Univers 00:00:00 00:00:00 [place] 45710.1.1 ity of [place] 3.104.2.7 [place] .3.213413 Medica l .8 Branch 2019-10-06 2019-10-06 Telemedici Pepito Vidales 1.2.840.1 10 [id number] Univers 06:59:58 15:12:03 ne Visit Wu Greer 79693.1.1 ity of 3.104.2.7 [place] .3.667899 Medica l .8 Branch 2019-10-06 2019-10-06 Outpatient R FLASH [facility] [id number] Univers 13:00:00 13:00:00 PEPITO galvan o f [facility] 2019-09-20 2019-09-20 Orders Doctor 1.2.840.3 [id number] Univers 00:00:00 00:00:00 Only Unassigned, 89342.1.1 ity of [place] 3.104.2.7 [place] .3.731028 Medica l .8 Branch 2019-09-19 2019-09-19 Jasper Valentine 1.2.840.1 [id number] 751 [id number] Univers 00:00:00 00:00:00 [place] 35541.1.1 ity of [place] 3.104.2.7 [place] .3.231633 Medica l .8 [place] 2019-09-19 2019-09-19 Refrafia Valentine, 1.2.840.4 [id number] 751 01496 Univers 00:00:00 00:00:00 [place] 31379.1.1 ity of [place] 3.104.2.7 [place] .3.949473 Medica l .8 [place] 2019-09-15 2019-09-15 Outpatient R ARELY HOPKINS [facility] [id number] Univers 14:15:00 14:15:00 ity of [facility] 2019-09-10 2019-09-10 Telephone Zoey 1.2.840.0 [id number] Univers 00:00:00 00:00:00 Wu 39112.1.1 ity of 3.104.2.7 [place] .3.294679 Medica l .8 [place] 2019-09-08 2019-09-08 Outpatient R [facility] [id number] Univers 13:30:00 13:30:00 ity of [facility] 2019-09-08 2019-09-08 Telemedici Sushil Cook 1.2.840.1 [id number] Univers 07:06:54 07:36:54 ne Visit Melina Steinberg 32657.1.1 ity of [place] 3.104.2.7 [place] .3.396843 Medica l .8 [place] 2019-08-26 2019-08-26 Outpatient R SERGE [facility] [id number] Univers 15:00:00 15:00:00 KESHAWN ity of [facility] 2019-08-26 2019-08-26 [facility] [id number] Univers 15:00:00 15:00:00 KESHAWN ity of [facility] 2019-08-22 2019-08-22 Patient Serge [facility] [id number] [id number] Univers 00:00:00 00:00:00 Secure Msg Keshawn PENA 350.1.13.10 ity of [facility] [place] [id number] Me dical AND 313 [facility] E CLINIC 2019-08-22 2019-08-22 Patient Serge [facility] 1.2.103.554 [id number] Univers 00:00:00 00:00:00 Secure Msg Keshawn PENA 350.1.13.10 ity of [facility] [place] [id number] Me dical AND 313 [facility] E CLINIC 2019-08-19 2019-08-19 Nurse Constantine, 1.2.840.7 [id number] Univers 00:00:00 00:00:00 Triage Deysi Mann 81775.1.1 ity of 3.104.2.7 [place] .3.302126 Medica l .8 [place] 2019-08-19 2019-08-19 Refrafia Valentine, 1.2.840.4 [id number] Univers 00:00:00 00:00:00 [place] 23165.1.1 ity of [place] 3.104.2.7 [place] .3.960492 Medica l .8 [place] 2019-08-19 2019-08-19 Telephone Serge, 1.2.840.2 [id number] Univers 00:00:00 00:00:00 [place] 38127.1.1 ity of [place] 3.104.2.7 [place] .3.976236 Medica l .8 [place] 2019-08-19 2019-08-19 Refill Serge 1.2.840.4 [id number] Univers 00:00:00 00:00:00 [place] 11948.1.1 ity of [place] 3.104.2.7 [place] .3.682020 Medica l .8 [place] 2019-08-18 2019-08-18 Office Serge 1.2.840.6 [id number] Univers 13:07:26 13:22:26 Visit [place] 32637.1.1 ity of [place] 3.104.2.7 [place] .3.313964 Medica l .8 [place] 2019-08-18 2019-08-18 Outpatient R SERGE, [facility] [id number] Univers 13:00:00 13:00:00 KESHAWN ity [facility] [place] 2019-08-18 2019-08-18 Jasper Valentine 1.2.840.1 [id number] Univers 00:00:00 00:00:00 [place] 09446.1.1 ity of [place] 3.104.2.7 [place] .3.071464 Medica l .8 [place] 2019-08-11 2019-08-11 Outpatient R DOTSON, [facility] [id number] Univers 10:45:00 10:45:00 GABE galvan [facility] [place] 2019-08-11 2019-08-11 Orders Doctor 1.2.840.4 [id number] Univers 00:00:00 00:00:00 Only Unassigned, 06575.1.1 ity of [place] 3.104.2.7 [place] .3.821722 Medica l .8 [place] 2019-08-04 2019-08-04 Outpatient SANDRA, [facility] [id number] [place] 00:00:00 00:00:00 JEAN PIERRE 786 Method i 2019-08-01 2019-08-01 Outpatient SANDRA, [facility] [id number] [place] 00:00:00 00:00:00 JEAN PIERRE 062 Method i 2019-07-26 2019-07-28 Outpatient JULIANNE, [facility] [id number] [place] 00:00:00 00:00:00 DANIKA 312 [place] 2019-07-25 2019-07-25 [facility] [id number] [place] 00:00:00 00:00:00 YASIN 764 Method i 2019-07-10 2019-07-10 Jasper Dick 1.2.840.7 [id number] Univers 00:00:00 00:00:00 Rosemary Heath 59451.1.1 i ty of 3.104.2.7 [place] .3.311106 Medica l .8 [place] 2019-07-02 2019-07-02 Jasper Valentine 1.2.840.1 [id number] Univers 00:00:00 00:00:00 [place] 04948.1.1 ity of [place] 3.104.2.7 [place] .3.004508 Medica l .8 [place] 2019-07-01 2019-07-01 Jasper Valentine, 1.2.840.0 [id number] [id number] Univers 00:00:00 00:00:00 Keshawn 65085.1.1 ity of [place] 3.104.2.7 [place] .3.070471 Medica l .8 [place] 2019-06-07 2019-06-07 Jasper Valentine, 1.2.840.6 [id number] [id number] Univers 00:00:00 00:00:00 [place] 98476.1.1 ity of [place] 3.104.2.7 [place] .3.732632 Medica l .8 [place] 2019-05-27 2019-05-27 Telephone Serge 1.2.840.4 [id number] Univers 00:00:00 00:00:00 Keshawn 62381.1.1 ity of [place] 3.104.2.7 [place] .3.637062 Medica l .8 [place] 2019-05-26 2019-05-26 Orders Doctor 1.2.840.0 [id number] Univers 00:00:00 00:00:00 Only Unassigned, 91733.1.1 ity of [place] 3.104.2.7 [place] .3.331994 Medica l .8 Branch 2019-05-10 2019-05-10 Telephone Kapil, 1.2.840.6 [id number] Univers 00:00:00 00:00:00 Rosemary E 64907.1.1 i ty of 3.104.2.7 [place] .3.635561 Medica l .8 Branch 2019-05-10 2019-05-10 Jasper Valentine 1.2.840.9 [id number] Univers 00:00:00 00:00:00 [place] 71882.1.1 ity of [place] 3.104.2.7 [place] .3.925699 Medica l .8 Branch 2019-05-09 2019-05-09 Jasper Dick, 1.2.840.6 [id number] Univers 00:00:00 00:00:00 Rosemary Heath 40816.1.1 i ty of 3.104.2.7 [place] .3.123116 Medica l .8 Branch 2019-04-12 2019-04-12 Cherry Valentine, 1.2.840.0 [id number] Univers 00:00:00 00:00:00 Keshawn 27405.1.1 ity of [place] 3.104.2.7 [place] .3.858666 Medica l .8 Branch 2019-04-11 2019-04-11 Jasper Valentine, 1.2.840.5 [id number] Univers 00:00:00 00:00:00 Keshawn 15639.1.1 ity of [place] 3.104.2.7 [place] .3.466004 Medica l .8 Branch 2019-04-10 2019-04-10 Jasper Valentine, 1.2.840.4 [id number] Univers 00:00:00 00:00:00 [place] 17036.1.1 ity of [place] 3.104.2.7 [place] .3.785762 Medica l .8 Branch 2019-04-05 2019-04-05 Jasper Valentine, 1.2.840.2 [id number] Univers 00:00:00 00:00:00 Keshawn 72654.1.1 ity of [place] 3.104.2.7 [place] .3.966828 Medica l .8 Branch 2019-03-24 2019-03-24 Orders Doctor 1.2.840.0 [id number] Univers 00:00:00 00:00:00 Only Unassigned, 44984.1.1 ity of [place] 3.104.2.7 [place] .3.946707 Medica l .8 Branch 2019-02-24 2019-02-24 Patient Serge [facility] 1.2.075.701 [id number] Univers 00:00:00 00:00:00 Secure Ms Keshawn PENA 350.1.13.10 ity of [facility] [place] [id number] N[place] dical AND [address] Branch [facility] 2019-02-24 2019-02-24 Jasper Valentine, 1.2.840.3 [id number] Univers 00:00:00 00:00:00 Keshawn 44580.1.1 ity of [place] 3.104.2.7 [place] .3.679822 Medica l .8 Branch 2019-02-24 2019-02-24 Jasper Valentine, 1.2.840.8 [id number] Univers 00:00:00 00:00:00 Keshawn 03204.1.1 ity of [place] 3.104.2.7 [place] .3.536889 Medica l .8 Branch 2019-02-24 2019-02-24 Jasper Valentine, 1.2.840.0 [id number] Univers 00:00:00 00:00:00 Keshawn 03114.1.1 ity of [place] 3.104.2.7 [place] .3.480244 Medica l .8 Branch 2019-02-24 2019-02-24 Jasper Valentine, 1.2.840.7 [id number] [id number] Univers 00:00:00 00:00:00 Keshawn 14079.1.1 ity of [place] 3.104.2.7 [place] .3.425892 Medica l .8 Branch 2019-02-23 2019-02-23 Jasper Valentine, 1.2.840.6 [id number] [id number] Univers 00:00:00 00:00:00 Keshawn 97087.1.1 ity of [place] 3.104.2.7 [place] .3.405881 Medica l .8 Branch 2019-02-21 2019-02-21 Cherry Valentine 1.2.840.4 [id number] Univers 00:00:00 00:00:00 Keshawn 79146.1.1 ity of [place] 3.104.2.7 [place] .3.104965 Medica l .8 Branch 2019-02-18 2019-02-18 Madeline Valentine, 1.2.840.6 [id number] Univers 15:49:00 16:04:00 Visit Keshawn 21365.1.1 ity of [place] 3.104.2.7 [place] .3.957255 Medica l .8 [place] 2019-02-17 2019-02-17 Director Of [employer] Rosemary Dick 1.2.840.0 [id number] Univers 09:01:36 16:08:39 Visit Vls-Lab 10296.1.1 ity of 3.104.2.7 [place] .3.524009 Medica l .8 [place] 2019-02-17 2019-02-17 Office Kapil, 1.2.840.8 [id number] Univers 09:09:27 10:03:06 Visit Rosemary eHath 44262.1.1 i ty of 3.104.2.7 [place] .3.485741 Medica l .8 [place] 2019-02-11 2019-02-11 Orders Doctor 1.2.840.2 [id number] Univers 00:00:00 00:00:00 Only Unassigned, 46641.1.1 ity of [place] 3.104.2.7 [place] .3.802822 Medica l .8 [place] 2019-02-09 2019-02-09 Refill Serge, 1.2.840.8 [id number] Univers 00:00:00 00:00:00 Keshawn 28592.1.1 ity of [place] 3.104.2.7 [place] .3.212172 Medica l .8 [place] 2019-01-31 2019-01-31 Patient Serge [facility] 1.2.561.035 [id number] Univers 00:00:00 00:00:00 Secure Msg Keshawn PENA 350.1.13.10 it[place] [facility] [place] [id number] N[place] dical AND [address] Branch [facility] 2019-01-11 2019-01-11 Office Serge 1.2.840.7 [id number] Univers 08:45:17 09:00:17 Visit Keshawn 62457.1.1 ity of [place] 3.104.2.7 [place] .3.130596 Medica l .8 Branch 2019-01-11 2019-01-11 Orders Doctor 1.2.840.2 [id number] Univers 00:00:00 00:00:00 Only Unassigned, 20874.1.1 ity of [place] 3.104.2.7 [place] .3.885688 Medica l .8 Branch 2018-12-21 2018-12-21 Jasper Valentine, 1.2.840.7 [id number] Univers 00:00:00 00:00:00 Keshawn 23264.1.1 ity of [place] 3.104.2.7 [place] .3.516120 Medica l .8 Branch 2018-12-20 2018-12-20 Jasper Valentine, 1.2.840.2 [id number] Univers 00:00:00 00:00:00 Keshawn 20448.1.1 ity of [place] 3.104.2.7 [place] .3.859515 Medica l .8 Branch 2018-12-20 2018-12-20 Jasper Valentine, 1.2.840.1 [id number] [id number] Univers 00:00:00 00:00:00 Keshawn 17761.1.1 ity of [place] 3.104.2.7 [place] .3.922399 Medica l .8 Branch 2018-12-14 2018-12-14 Jasper Dick, 1.2.840.5 [id number] Univers 00:00:00 00:00:00 Rosemary E 91428.1.1 i ty of 3.104.2.7 [place] .3.242407 Medica l .8 Branch 2018-11-23 2018-11-23 Jasper Valentine, 1.2.840.3 [id number] Univers 00:00:00 00:00:00 [place] 63721.1.1 ity of [place] 3.104.2.7 [place] .3.523588 Medica l .8 Branch 2018-11-19 2018-11-19 Telephone Team, [facility] 1.2.840.4 [id number] Univers 00:00:00 00:00:00 [place] 54202.1.1 [place]3.[place] .8 Branch 2018-11-18 2018-11-18 Cherry Dick, Isela.2.840.3 [id number] Univers 00:00:00 00:00:00 Rosemary Heath 15489.1.1 i ty of 3.104.2.7 [place] .3.318717 Medica l .8 Branch Results Test Description Test Time Test Comments Results Result Comments Source ECG 12 lead 2022-11-20 20:57:17 Test Item Value Reference Range Interpretation Comme nts Ventricular rate (test code = 253) 82 Atrial rate (test code = 255) 82 IN interval (test code = 266) 132 QRSD [...] of 27-JUL-2019 08:01,-No significant change was found- [facility] 12 [id number] 20:57:17 Test Item Value Reference Range Interpretation Comments Ventricular rate (test 82 code = 253) Atrial rate (test code 82 = 255) IN interval (test code 132 = 266) QRSD interval (test 82 code = 260) QT interval (test code 384 = 264) QTC interval (test code 448 = 265) P axis 1 (test code = 54 267) QRS axis 1 (test code = 78 268) T wave axis (test code 46 = 270) EKG impression (test Normal sinus code = 273) rhythm-Normal ECG-In automated comparison with ECG of 27-JUL-2019 08:01,-No significant change was found- [facility] [id number] 07:52:00 Test Item Value Reference Range Interpretation Comments POC glucose (test code 206 mg/dL 65-99 H Opera tor Name: = 32647-1) Fede Shields ID: [id number] Lab Interpretation Abnormal (test code = 59863-1) [facility] [id number] 07:52:00 Test Item Value Reference Range Interpretation Comments POC glucose (test code 206 mg/dL 65-99 H Opera tor Name: = 51179-2) Fede Huffmane ID: [id number] Lab Interpretation Abnormal (test code = 83128-2) [facility] HEMOGLOBIN A1C [id number] 20:42:00 Test Item Value Reference Range Interpretation Comments POCT HBA1C (test code = 4548-4) 11.4 % 4-6 A Lab Interpretation (test code = Abnormal 40618-6) [facility] HEMOGLOBIN A1C [id number] 20:42:00 Test Item Value Reference Range Interpretation Comments POCT HBA1C (test code = 4548-4) 11.4 % 4-6 A Lab Interpretation (test code = Abnormal 84442-3) [facility] [id number] 08:35:55 Test Item Value Reference Range Interpretation Comments IONIZED CA (test code = 4.70 mg/dL 4.5-5.3 2275912044) PH SERUM (test code = 1787214024) 7.35-7.45 L QUES Lab Interpretation (test code = Abnormal 86806-9) [facility] [id number] 04:46:36 Test Item Value Reference Range Interpretation Comments TSH (test code = See_Comment [Automated message] [id number]) The system [employer] generated this result transmitted ref erence range: 0.45 - 4 .70 mIU/L. The refe rence range was not u sed to interpret this result as normal/abnor mal. Lab Interpretation (test Normal code = 87215-4) [facility], [id number] 04:32:56 Test Item Value Reference Range Interpretation Comments T4 TOTAL (test code = See_Comment [Auto mated 4011973705) message] The system which generated this result transmitted reference range : 5.5 - 11.0 mcg/dL. The reference range was not used to interpret this result as normal/abnormal . JEIMY (test code = JEIMY) Normal Range or Expected Values will vary for patients who are on ovulation control drugs or . ? Lab Interpretation Normal (test code = 38800-6) [facility]GLOBIN (A1C)2022-01-25 04:20:43 Test Item Value Reference Range Interpretation Comments HGB A1C (test code = 8.2 % 4-5.7 H 4548-4) JEIMY (test code = JEIMY) Reference RangesNormal: <5.7%Prediabetes: 5.7 - 6.4%Diabetes: > 6.5% Lab Interpretation (test Abnormal code = 46250-0) [facility]. METABOLIC PANEL ([id number])2022-01-25 04:18:51 Test Item Value Reference Range Interpretation Comments NA (test code = 142 mmol/L 135-145 1029037192) K (test code = 3.8 mmol/L 3.5-5 2274691038) CL (test code = 103 mmol/L 98-108 7043603670) CO2 TOTAL (test code 30 mmol/L 23-31 = 0354234702) AGAP (test code = 2-16 0752544043) BUN (test code = 14 mg/dL 7-23 9071696629) GLUCOSE (test code = 78 mg/dL 70-110 2917068530) CREATININE (test code 0.79 mg/dL 0.5-1.04 = 4929539950) TOTAL BILI (test code 0.4 mg/dL 0.1-1.1 = 2957118092) CALCIUM (test code = 9.0 mg/dL 8.6-10.6 0635902239) T PROTEIN (test code 7.2 g/dL 6.3-8.2 = 6543599696) ALBUMIN (test code = 4.6 g/dL 3.5-5 5247462611) ALK PHOS (test code = 72 U/L 34-122 5801862232) ALTv (test code = 18 U/L 5-35 1742-6) AST(SGOT) (test code 27 U/L 13-40 = 7892549566) eGFR (test code = mL/min/1.73m2 5894444483) JEIMY (test code = JEIMY) Association of [...] or urine or abnormalities in imaging tests). [facility] WITH [id number] 04:04:32 Test Item Value Reference Range Interpretation Comments WBC (test code = See_Comment [Automated 1037-2) message] The sy stem which generated this result transmitted reference range : 4.30 - 11.10 10*3/?L. The reference range was not used to interpret this result as normal/abnormal . RBC (test code = See_Comment [Automated 429-8) message] The sy stem which generated this [...] (test code = 37.9 fL 39-49.9 L 17126-6) RDW-CV (test code = 11.8 % 12-15.5 L 788-0) PLT (test code = See_Comment [Automated 777-3) message] The sy stem which generated this result transmitted reference range : 166 - 358 10*3/ ?L. The reference r estee was not used to interpret this result as normal/abnormal . MPV (test code = 11.4 fL 9.5-12.9 87424-9) NRBC/100 WBC (test See_Comment [Automat ed code = 7783012251) message] The system which generated this result transmitted reference range : 0.0 - 10.0 /100 WBCs. The refer ence range was not u sed to interpret th is result as normal/abnormal . NRBC x10^3 (test code See_Comment [Auto mated = 1563415824) message] The s ystem which generated this result transmitted reference range : 10*3/?L. The reference range was not used to interpret this result as normal/abnormal . GRAN MAT (NEUT) % 50.2 % (test code = 770-8) IMM GRAN % (test code 0.20 % = 8650644911) LYMPH % (test code = 42.4 % 736-9) MONO % (test code = 5.7 % 5905-5) EOS % (test code = 0.7 % 713-8) BASO % (test code = 0.8 % 706-2) GRAN MAT x10^3(ANC) 2.99 10*3/uL 1.88-7.09 (test code = 5562637531) IMM GRAN x10^3 (test 0-0.06 code = 7476306107) LYMPH x10^3 (test code 2.53 10*3/uL 1.32-3.29 = 731-0) MONO x10^3 (test code 0.34 10*3/uL 0.33-0.92 = 742-7) EOS x10^3 (test code = 0.04 10*3/uL 0.03-0.39 711-2) BASO x10^3 (test code 0.05 10*3/uL 0.01-0.07 = 704-7) Lab Interpretation Abnormal (test code = 68622-9) [facility] WITH [id number] 04:04:32 Test Item Value Reference Range Interpretation Comments WBC (test code = See_Comment [Automated 1467-2) message] The sy stem which generated this result transmitted reference range : 4.30 - 11.10 10*3/?L. The reference range was not used to interpret this result as normal/abnormal . RBC (test code = See_Comment [Automated 449-8) message] The sy stem which generated this [...] (test code = 37.9 fL 39-49.9 L 65427-9) RDW-CV (test code = 11.8 % 12-15.5 L 788-0) PLT (test code = See_Comment [Automated 777-3) message] The sy stem which generated this result transmitted reference range : 166 - 358 10*3/ ?L. The reference r estee was not used to interpret this result as normal/abnormal . MPV (test code = 11.4 fL 9.5-12.9 50442-5) NRBC/100 WBC (test See_Comment [Automat ed code = 9503164090) message] The system which generated this result transmitted reference range : 0.0 - 10.0 /100 WBCs. The refer ence range was not u sed to interpret th is result as normal/abnormal . NRBC x10^3 (test code See_Comment [Auto mated = 8601432346) message] The s ystem which generated this result transmitted reference range : 10*3/?L. The reference range was not used to interpret this result as normal/abnormal . GRAN MAT (NEUT) % 50.2 % (test code = 770-8) IMM GRAN % (test code 0.20 % = 3712370850) LYMPH % (test code = 42.4 % 736-9) MONO % (test code = 5.7 % 5905-5) EOS % (test code = 0.7 % 713-8) BASO % (test code = 0.8 % 706-2) GRAN MAT x10^3(ANC) 2.99 10*3/uL 1.88-7.09 (test code = 4366254382) IMM GRAN x10^3 (test 0-0.06 code = 7182580966) LYMPH x10^3 (test code 2.53 10*3/uL 1.32-3.29 = 731-0) MONO x10^3 (test code 0.34 10*3/uL 0.33-0.92 = 742-7) EOS x10^3 (test code = 0.04 10*3/uL 0.03-0.39 711-2) BASO x10^3 (test code 0.05 10*3/uL 0.01-0.07 = 704-7) Lab Interpretation Abnormal (test code = 06769-1) [facility] URINALYSIS W SPECIFIC [id number] 19:15:00 Test Item Value Reference Range Interpretation [...] U APPEAR (test code = turbid 7) [facility]CIFIC [id number] 19:15:00 Test Item Value Reference Range Interpretation [...] U APPEAR (test code = turbid 3267) [facility]
--- NOTE | 2022-12-24 03:33 | ER ---
Nurse's Notes [facility] Name: Pamela Richter Age: 42 yrs Sex: Female : 1980 Arrival Date: 12/24/2022 Time: 02:43 Bed 6 Private MD: Diagnosis: Other hypoglycemia Presentation: 12/24 02:58 Chief complaint: Patient states: My blood sugar has been all over the place today. I kd3 called EMS about 1.5 hours ago and they checked my sugar and it was 68. I didn't go with them at the time. I just ate a whole pack of gummy life savers. I feel a little bit better but i am nervous because i don't have any more strips to recheck myself. Ebola Screen: No symptoms or risks identified at this time. Initial Sepsis Screen: Does the patient meet any 2 criteria? No. Patient's initial sepsis screen is negative. Does the patient have a suspected source of infection? No. Patient's initial sepsis screen is negative. Risk Assessment: Do you want to hurt yourself or someone else? Patient reports no desire to harm self or others. Onset of symptoms was December 24, 2022. 02:58 Method Of Arrival: Ambulatory kd3 02:58 Acuity: MANDI 3 kd3 03:41 Coronavirus screen: Client denies travel out of the [place] in the last 14 days. At this lg3 time, the client does not indicate any symptoms associated with coronavirus-19. Triage Assessment: 03:00 General: Appears uncomfortable, Behavior is cooperative, anxious. Pain: Denies pain. kd3 Historical: - PMHx: 03:00 Anxiety; diabetes mellitus; Hypertensive disorder; kd3 - Immunization history:: Adult Immunizations up to date. - Social history:: Smoking status: unknown. Screenin:45 [facility] ED Fall Risk Assessment (Adult) History of falling in the last 3 months, ha1 including since admission No falls in past 3 months (0 pts) Confusion or Disorientation No (0 pts) Intoxicated or Sedated No (0 pts) Impaired Gait No (0 pts) Mobility Assist Device Used No (0 pt) Altered Elimination No (0 pt) Score/Fall Risk Level 0 - 2 = Low Risk Oriented to surroundings, Maintained a safe environment, Educated pt \T\ family on fall prevention, incl call for assistance when getting out of bed. Abuse screen: Denies threats or abuse. Denies injuries from another. Nutritional screening: No deficits noted. Tuberculosis screening: No symptoms or risk factors identified. Assessment: 02:45 General: Appears comfortable, Behavior is cooperative, anxious. Pain: Denies pain. ha1 Neuro: Level of Consciousness is awake, alert, obeys commands, Oriented to person, place, time, situation. Cardiovascular: Patient's skin is warm and dry. Respiratory: Airway is patent Respiratory effort is even, unlabored, Respiratory pattern is regular, symmetrical. GI: No signs and/or symptoms were reported involving the gastrointestinal system. GI: Reports low glucose level at home \T\ 68. : No signs and/or symptoms were reported regarding the genitourinary system. Derm: Skin is pink, warm \T\ dry. Musculoskeletal: Circulation, motion, and sensation intact. Range of motion: intact in all extremities. 03:32 General: Appears in no apparent distress. comfortable, Behavior is calm, cooperative. lg3 Pain: Denies pain. Neuro: No deficits noted. Lynn Agitation-Sedation Scale (RASS): 0 - Alert and Calm Level of Consciousness is awake, alert, obeys commands, Oriented to person, place, time, situation. Cardiovascular: No deficits noted. Denies chest pain, shortness of breath. Respiratory: No deficits noted. Airway is patent Respiratory effort is even, unlabored, Respiratory pattern is regular, symmetrical. GI: No deficits noted. No signs and/or symptoms were reported involving the gastrointestinal system. EENT: No deficits noted. No signs and/or symptoms were reported regarding the EENT system. Derm: No deficits noted. No signs and/or symptoms reported regarding the dermatologic system. Skin is intact, is healthy with good turgor, Skin is dry, Skin is normal, Skin temperature is warm. Musculoskeletal: No deficits noted. No signs and/or symptoms reported regarding the musculoskeletal system. Circulation, motion, and sensation intact. Range of motion: intact in all extremities. Vital Signs: 02:58 BP 165 / 99; Pulse 109; Resp 19; Temp 98.6(O); Pulse Ox 100% ; kd3 03:16 BP 163 / 96; Pulse 100; Resp 18 S; Pulse Ox 100% on R/A; ha1 03:32 BP 155 / 89; Pulse 94; Resp 17 S; Pulse Ox 100% on R/A; lg3 ED Course: 02:44 Patient arrived in ED. jj6 02:45 Patient has correct armband on for positive identification. Bed in low position. Call ha1 light in reach. Side rails up X 1. 02:46 Misael Mitchell MD is Attending Physician. sp3 03:00 Triage completed. kd3 03:00 Arm band placed on. kd3 03:17 Flor Bean, RN is Primary Nurse. lg3 03:18 Provided Education on: glucose management. ha1 03:32 No provider procedures requiring assistance completed. lg3 03:41 Patient did not have IV access during this emergency room visit. lg3 Administered Medications: No medications were administered Medication: 03:18 VIS not applicable for this client. ha1 Outcome: 03:33 Discharge ordered by . sp3 03:41 Discharged to home ambulatory, with significant other. lg3 03:41 Condition: stable 03:41 Discharge instructions given to patient, Instructed on discharge instructions, follow up and referral plans. Demonstrated understanding of instructions, follow-up care. 03:42 Patient left the ED. lg3 Signatures: Flor Bean, RN RN lg3 Misael Mitchell MD MD sp3 Karolyn Carroll jj6 Lisa Carrillo RN RN kd3 Caitlin Coello, RN RN ha1
--- NOTE | 2022-12-24 03:33 | EDPHYS ---
Physician Documentation [facility] Name: Pamela Richter Age: 42 yrs Sex: Female : 1980 Arrival Date: 12/24/2022 Time: 02:43 Bed 6 Private MD: ED Physician Misael Mitchell HPI: 12/24 03:01 This 42 yrs old Female presents to ER via Ambulatory with complaints of Low Blood Sugar.sp3 03:01 42-year-old female presents to the ED with chief complaint "I need to get my sugar sp3 checked". Patient was having symptoms of low blood sugar and had EMS come out who measured sugar at 68. She declined transport to the hospital at that time and took "a whole bunch of lifesavers". She now comes to the ED via private vehicle for reassurance that her sugar has improved. Patient has no symptoms of any kind including headache, neck pain, nausea, vomiting, diarrhea, pain anywhere including chest and abdomen, shortness of breath, or any other signs or symptoms on review of systems at this time. Patient is on long-acting insulin and has had some minor dosing changes. See nursing note for names and dosages.. Historical: - PMHx: 03:00 Anxiety; diabetes mellitus; Hypertensive disorder; kd3 - Immunization history:: Adult Immunizations up to date. - Social history:: Smoking status: unknown. ROS: 03:03 Constitutional: Negative for fever, chills, and weight loss, Eyes: Negative for injury, sp3 pain, redness, and discharge, ENT: Negative for injury, pain, and discharge, Neck: Negative for injury, pain, and swelling, Cardiovascular: Negative for chest pain, palpitations, and edema, Respiratory: Negative for shortness of breath, cough, wheezing, and pleuritic chest pain, Abdomen/GI: Negative for abdominal pain, nausea, vomiting, diarrhea, and constipation, Back: Negative for injury and pain, MS/Extremity: Negative for injury and deformity, Skin: Negative for injury, rash, and discoloration, Neuro: Negative for headache, weakness, numbness, tingling, and seizure, Psych: Negative for depression, anxiety, suicide ideation, homicidal ideation, and hallucinations, Allergy/Immunology: Negative for hives, rash, and allergies, Endocrine: Negative for neck swelling, polydipsia, polyuria, polyphagia, and marked weight changes. 03:03 All other systems are negative. Exam: 03:04 Constitutional: This is a well developed, well nourished patient who is awake, alert, sp3 and in no acute distress. Head/Face: Normocephalic, atraumatic. Eyes: Pupils equal round and reactive to light, extra-ocular motions intact. Lids and lashes normal. Conjunctiva and sclera are non-icteric and not injected. Cornea within normal limits. Periorbital areas with no swelling, redness, or edema. Neck: Trachea midline, no thyromegaly or masses palpated, and no cervical lymphadenopathy. Supple, full range of motion without nuchal rigidity, or vertebral point tenderness. No Meningismus. Chest/axilla: Normal chest wall appearance and motion. Nontender with no deformity. No lesions are appreciated. Cardiovascular: Regular rate and rhythm with a normal S1 and S2. No gallops, murmurs, or rubs. Normal PMI, no JVD. No pulse deficits. Respiratory: Lungs have equal breath sounds bilaterally, clear to auscultation and percussion. No rales, rhonchi or wheezes noted. No increased work of breathing, no retractions or nasal flaring. Abdomen/GI: Soft, non-tender, with normal bowel sounds. No distension or tympany. No guarding or rebound. No evidence of tenderness throughout. Back: No spinal tenderness. No costovertebral tenderness. Full range of motion. Skin: Warm, dry with normal turgor. Normal color with no rashes, no lesions, and no evidence of cellulitis. MS/ Extremity: Pulses equal, no cyanosis. Neurovascular intact. Full, normal range of motion. Neuro: Awake and alert, GCS 15, oriented to person, place, time, and situation. Cranial nerves II-XII grossly intact. Motor strength 5/5 in all extremities. Sensory grossly intact. Cerebellar exam normal. Normal gait. Vital Signs: 02:58 BP 165 / 99; Pulse 109; Resp 19; Temp 98.6(O); Pulse Ox 100% ; kd3 03:16 BP 163 / 96; Pulse 100; Resp 18 S; Pulse Ox 100% on R/A; ha1 03:32 BP 155 / 89; Pulse 94; Resp 17 S; Pulse Ox 100% on R/A; lg3 MDM: 02:51 Patient medically screened. sp3 03:04 Data reviewed: vital signs, nurses notes, EMS record, lab test result(s). ED course: sp3 42-year-old female with concerns of hypoglycemia. Blood sugar on arrival was 250. We will wait 30 minutes and check again. Patient is having no symptoms at all and I clinically have ruled out DKA, dehydration, or any other concerning or critical findings. Patient is afebrile and vital signs are normal. Pulse was initially 109 but after she was rested on the bed it is in the 90s. Reassured patient and she will obtain some testing strips which she ran out of by morning to continuously check at home as well. 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 She knows she may contact 911 or return here at any time for further symptoms or concerns. No further work-up is indicated in the emergency department at this time.. 03:32 ED course: Repeat blood sugar 234. Patient is comfortable going home and will return if sp3 any problems.. 12/24 03:08 Order name: Glucose, Ancillary Testing; Complete Time: 03:23 EDMS 12/24 03:00 Order name: Accucheck; Complete Time: 03:32 sp3 12/24 03:00 Order name: Accucheck: 30 mins after initial; Complete Time: 03:32 sp3 Administered Medications: No medications were administered Disposition Summary: 12/24/22 03:33 Discharge Ordered Location: Home sp3 Condition: Stable sp3 Diagnosis - Other hypoglycemia sp3 Followup: sp3 - With: Private Physician - When: Upon discharge from the Emergency Department - Reason: Continuance of care Discharge Instructions: - Discharge Summary Sheet sp3 - Preventing Hypoglycemia sp3 Forms: - Medication Reconciliation Form sp3 - Thank You Letter sp3 - Antibiotic Education sp3 - Prescription Opioid Use sp3 - Patient Portal Instructions sp3 Signatures: Misael Mitchell MD MD sp3 Lisa Carrillo RN RN kd3
[2022-12-24 03:46] VITALS: TEMP 98.6; O2SAT 100
[2022-12-24 03:50] VITALS: BP 155/89
== END 2022-12-24 03:42 | disposition home or self-care (01) ==
LOC: ER 02:43
DX: E11.649 Type 2 diabetes mellitus with hypoglycemia without coma (principal)
CPT/HCPCS: 82947; 99283

== ENCOUNTER 2024-04-25 10:03 | Inpatient (IN) | payer MEDICARE, OTHER, SELFPAY ==
[2024-04-25] MEDS ORDERED: ONDANSETRON 4 MG/2 ML VIAL ONE (10:22)
[2024-04-25] MEDS ORDERED: FAMOTIDINE 20 MG/2 ML VIAL IV ONE (10:23)
[2024-04-25] MEDS ORDERED: INSULIN REGULAR (HUMAN) 100 UNIT/ML ONE (10:23)
[2024-04-25] MEDS ORDERED: NA CHLORIDE 0.9% 1,000 ML ONE ×2 (10:23→11:59)
[2024-04-25 10:37] LABS: Absolute Lymphocytes (CBC) 1.2 K/uL (0.7-4.9); Absolute Monocytes 0.7 K/uL (0.1-1.3); Absolute Neutrophil 6.4 K/uL (1.8-8.0); Basophils % 0.4 % (0-1.3); Eosinophils % 0.5 % (0-4.4); Hematocrit 45.6 % (36.0-45.0); Hemoglobin 15.5 g/dL (12.0-15.0); Lymphocytes % 14.4 % (15.3-44.8); MCH 30.5 pg (27.0-35.0); MCHC 34.1 g/dL (32.0-36.0); MCV 89.5 fL (80-100); MPV 9.8 fL (7.6-11.3); Monocytes % 8.6 % (3.3-12.3); Neutrophils % 76.1 % (41.7-73.7); Platelets 280 thou/uL (152-406); RBC Red Blood Cell Count 5.09 M/uL (3.86-4.86); Red Cell Distribution Width 13.6 % (12.1-15.2)
[2024-04-25 11:30] LABS: Specific Gravity > 1.030 (1.005-1.030); Urine Bilirubin NEGATIVE (Negative); Urine Blood Negative (Negative); Urine Clarity Clear (Clear); Urine Color Colorless (Yellow); Urine Glucose 4+ (Over) (Negative); Urine Ketones 3+ (Negative); Urine Microscopic Reflex YN NO UMIC; Urine Nitrite NEGATIVE (Negative); Urine Protein NEGATIVE (Negative); Urine Urobilinogen Normal (Normal); Urine pH 5.5 (5.0-7.0)
[2024-04-25 11:47] LABS: ALT/SGPT 18 U/L (13-56); AST/SGOT 12 U/L (15-37); Albumin 4.6 g/dL (3.4-5.0); Albumin/Globulin Ratio 1.3 (1.1-1.8); Alkaline Phosphatase 127 U/L (45-117); Anion Gap 22.2 mEq/L (5.0-15.0); BETA HYDROXYBUTYRATE > 4.50 mmol/L (0.02-0.27); BUN Blood Urea Nitrogen 21 mg/dL (7-18); Bicarbonate 19 mEq/L (21-32); Bilirubin Total 1.2 mg/dL (0.2-1.0); Globulin 3.5 g/dL (2.3-3.5); Glomerular Filtration Rate 37 ml/min (=/>90); Lipase 1183 U/L (13-75); Potassium 4.2 mEq/L (3.5-5.1); Protein, Total 8.1 g/dL (6.4-8.2); Sodium Level 125 mEq/L (136-145)
[2024-04-25 11:49] LABS: Glucose Level 617 mg/dL (74-106)
[2024-04-25] MEDS ORDERED: INSULIN REGULAR, HUMAN 100 UNIT in NA CHLORIDE 0.9% 100 ML IV SCH (12:15)
--- NOTE | 2024-04-25 12:43 | RAD REPORT ---
EXAMINATION: CT ABDOMEN AND PELVIS WITHOUT CONTRAST CLINICAL INDICATION: ABD PAIN TECHNIQUE: CT abdomen and pelvis was performed, without IV contrast, as per department protocol. Axia l, sagittal and coronal reconstructions were obtained. One or more of the following dose reduction techniques were used: Automated exposure control, adjustment of the mA and kV according to the patien t size, and iterative reconstruction. Unless otherwise specified, incidental findings do not require dedicated imaging follow-up. COMPARISON: 06/10/2022 FINDINGS: The lack of intravenous contrast limits the sensitivity of this exam for evaluation of solid visceral organs, vascular structures, and retroperitoneum. LOWER CHEST: 24 x 13 mm lesion in the right lung base again noted suspicious for pulmonary AVM and un changed. LIVER:19 mm low-density lesion is seen superior right lobe of the liver near the dome. Additional 40 mm area of diminished density noted adjacent to the gallbladder fossa. Grossly unremarkable gallbladder. SPLEEN: Normal size. No focal lesion. PANCREAS: Moderate edematous appearance is seen involving the pancreas. Circumscribed within the rim calcified lesion in the pancreatic tail measures 4.2 x 2.6 cm and has reduced in size since the prior study. Dystrophic calcifications are seen in the region of the anterior pancreatic head. ADRENALS: Normal; no mass. KIDNEYS AND URETERS: Normal size and contour. No hydronephrosis. URINARY BLADDER: Normal contour. GASTROINTESTINAL TRACT: No evidence of bowel obstruction, significant free fluid, free air or abscess . Mild inflammatory changes are seen in the region of the duodenal C-loop. APPENDIX: Normal appendix. LYMPH NODES: No lymphadenopathy. MUSCULOSKELETAL: No acute or suspicious osseous abnormality. ADDITIONAL FINDINGS: None. IMPRESSION: [id number] inflammatory changes are seen about the pancreatic head and body as well as the duod enal C-loop suggesting pancreatitis. Correlation with amylase/lipase levels would be recommended. [place] noncalcified lesion in the tail the pancreas is reduced in size since prior study. This is ind eterminate but could represent a chronic pseudocyst. Right lower lobe pulmonary AVM suspected. There are no development of low-density areas in the liver which are nonspecific. They may represent areas of fatty sparing. Nonemergent MRI of the liver would be recommended for follow-up.
--- NOTE | 2024-04-25 12:49 | RAD REPORT ---
EXAM: Right upper quadrant ultrasound. CLINICAL HISTORY: Abdominal pain COMPARISON: None FINDINGS: A gallstone is not seen. Gallbladder wall not thickened. Biliary tree normal caliber IMPRESSION: No significant abnormalities displayed
--- NOTE | 2024-04-25 13:50 | EDPHYS ---
Physician Documentation [facility] Name: Pamela Richter Age: 43 yrs Sex: Female : 1980 Arrival Date: 04/25/2024 Time: 10:03 Bed 6 Private MD: ED Physician Joon Rivers HPI: 04/25 10:10 This 43 yrs old Female presents to ER via Unassigned with complaints of abd pain. rn 10:10 The patient presents with abdominal pain in the epigastric area. Onset: The rn symptoms/episode began/occurred 2 day(s) ago. The symptoms do not radiate. Associated signs and symptoms: Pertinent positives: anorexia, diarrhea, nausea, Pertinent negatives: fever. The symptoms are described as achy, crampy. Modifying factors: The symptoms are alleviated by nothing, the symptoms are aggravated by touching the area. Severity of pain: At its worst the pain was moderate in the emergency department the pain is unchanged. The patient has experienced similar episodes in the past. The patient has not recently seen a physician. Patient reports 2 or 3 days of epigastric abdominal pain associated with hyperglycemia. States compliant with insulin and taking her medication. Reports nausea and anorexia with diarrhea. Reports generalized weakness, increased thirst and polyuria.. Historical: - Allergies: 10:16 No Known Allergies; mb9 - Home Meds: 10:16 Novolog U-100 Insulin aspart 100 unit/mL Sub-Q soln [Active]; Hydrochlorothiazide Oral mb9 [Active]; - PMHx: 10:16 Anxiety; diabetes mellitus; Hypertensive disorder; mb9 - PSHx: 10:16 None; mb9 - Immunization history:: Adult Immunizations up to date. - Infectious Disease History:: Denies. - Family history:: not pertinent. - Social history:: Smoking status: Patient reports the use of cigarette tobacco products, smokes one pack cigarettes per day. - Hospitalizations: : No recent hospitalization is reported. ROS: 10:10 Constitutional: Negative for fever, chills, and weight loss, Cardiovascular: Negative rn for chest pain, palpitations, and edema, Respiratory: Negative for shortness of breath, cough, wheezing, and pleuritic chest pain, Abdomen/GI: Positive for abdominal pain and nausea with diarrhea : Positive for polyuria MS/Extremity: Negative for injury and deformity, Skin: Negative for injury, rash, and discoloration, Neuro: Positive for generalized weakness and malaise Exam: 10:10 Constitutional: This is a well developed, well nourished patient who is awake, alert, rn and in no acute distress. Head/Face: Normocephalic, atraumatic. Eyes: Normal conjunctiva ENT: Dry mucous membranes Cardiovascular: Tachycardic, regular Respiratory: Mild tachypnea Abdomen/GI: Soft, epigastric tenderness without peritoneal signs Skin: Warm, dry MS/ Extremity: Pulses equal, no cyanosis. Neuro: Awake and alert, GCS 15 Vital Signs: 10:15 BP 146 / 96; Pulse 97; Resp 22; Temp 98; Pulse Ox 98% on R/A; Weight 86.18 kg; Height 5 mb9 ft. 7 in. ; 11:21 BP 133 / 73; Pulse 69; Resp 18; Pulse Ox 97% on R/A; mb9 13:07 BP 143 / 84; Pulse 83; Resp 18; Pulse Ox 100% on R/A; mb9 14:30 BP 153 / 90; Pulse 81; Resp 16; Pulse Ox 100% on R/A; mb9 10:15 Body Mass Index 29.76 (86.18 kg, 170.18 cm) mb9 MDM: 10:07 Medical Screening Exam initiated rn 13:44 Differential diagnosis: bowel obstruction, cholecystitis, Cholelithiasis, gastritis, rn gastroesophageal reflux disease, non-specific abd pain, pancreatitis, Peptic Ulcer Disease, Perf. Duodenal Ulcer, Perf. Gastric Ulcer, DKA. Data reviewed: vital signs, nurses notes, lab test result(s), EKG, radiologic studies, CT scan, ultrasound, and as a result, I will admit patient. Consideration of Admission/Observation Patient was admitted/placed on observation. Escalation of care including admission/observation considered. Counseling: I had a detailed discussion with the patient and/or guardian regarding the historical points, exam findings, and any diagnostic results supporting the discharge/admit diagnosis, lab results, radiology results, the need for further work-up and treatment in the hospital. Response to treatment: the patient's symptoms have mildly improved after treatment, and as a result, I will admit patient. ED course: I personally spent 35 minutes engaged in work directly related to the individual patient's care. This does not include any time spent performing procedures. The patient has been deemed critically ill because of acute pancreatitis and DKA requiring IV insulin drip, parenteral pain control, organization and admission to ICU.. 04/25 10:08 Order name: CBC with Diff; Complete Time: 11:36 rn 04/25 10:08 Order name: CMP; Complete Time: 12:00 rn 04/25 10:08 Order name: Lipase; Complete Time: 12:00 rn 04/25 10:08 Order name: Urinalysis w/ reflexes; Complete Time: 11:36 rn 04/25 10:08 Order name: ABG rn 04/25 10:09 Order name: BETA HYDROXYBUTYRATE; Complete Time: 12:00 rn 04/25 10:19 Order name: Glucose, Ancillary Testing; Complete Time: 11:36 EDMS 04/25 12:11 Order name: Glucose, Ancillary Testing; Complete Time: 13:38 EDMS 04/25 14:21 Order name: Glucose, Ancillary Testing; Complete Time: 15:03 EDMS 04/25 14:30 Order name: Alcohol Serum/Plasma EDMS 04/25 14:30 Order name: Test, Urine EDMS 04/25 14:30 Order name: Urine Drug Screen EDMS 04/25 14:30 Order name: Basic Metabolic Panel EDMS 04/25 14:30 Order name: Basic Metabolic Panel EDMS 04/25 14:30 Order name: Basic Metabolic Panel EDMS 04/25 14:30 Order name: Basic Metabolic Panel EDMS 04/25 14:30 Order name: Basic Metabolic Panel EDMS 04/25 14:30 Order name: Basic Metabolic Panel EDMS 04/25 14:30 Order name: Basic Metabolic Panel EDMS 04/25 14:30 Order name: Basic Metabolic Panel EDMS 04/25 14:30 Order name: Basic Metabolic Panel EDMS 04/25 14:30 Order name: CBC with Automated Diff EDMS 04/25 14:30 Order name: CBC with Automated Diff EDMS 04/25 14:30 Order name: Magnesium EDMS 04/25 14:30 Order name: Magnesium EDMS 04/25 14:30 Order name: Magnesium EDMS 04/25 14:30 Order name: Magnesium EDMS 04/25 14:30 Order name: Magnesium EDMS 04/25 14:30 Order name: Magnesium EDMS 04/25 14:30 Order name: Magnesium EDMS 04/25 14:30 Order name: Magnesium EDMS 04/25 14:30 Order name: Magnesium EDMS 04/25 14:30 Order name: Phosphorus EDMS 04/25 14:30 Order name: Phosphorus EDMS 04/25 14:30 Order name: Phosphorus EDMS 04/25 14:30 Order name: Phosphorus EDMS 04/25 14:30 Order name: Phosphorus EDMS 04/25 14:30 Order name: Phosphorus EDMS 04/25 14:30 Order name: Phosphorus EDMS 04/25 14:30 Order name: Phosphorus EDMS 04/25 14:30 Order name: Phosphorus EDMS 04/25 15:20 Order name: Glucose, Ancillary Testing EDMS 04/25 16:13 Order name: Glucose, Ancillary Testing EDMS 04/25 12:08 Order name: US Abdomen Limited; Complete Time: 13:38 rn 04/25 12:16 Order name: Abdomen ; Complete Time: 13:38 EDMS 04/25 10:08 Order name: IV Start; Complete Time: 10:19 rn 04/25 10:08 Order name: Labs collected and sent; Complete Time: 10:20 rn 04/25 10:08 Order name: Glucose Level; Complete Time: 10:19 rn Administered Medications: 10:30 Drug: NS 0.9% IV 1000 ml IV at 1 bolus Per protocol; to be given as a bolus over 60 mb9 minutes Route: IV; Rate: 1 bolus; Site: left antecubital; 11:55 Follow up: Response: No adverse reaction; IV Status: Completed infusion mb9 10:32 Drug: Ondansetron IVP 4 mg IVP once; over 2 minutes Route: IVP; Site: left antecubital; mb9 11:55 Follow up: Response: No adverse reaction mb9 10:35 Drug: Famotidine IVP 20 mg IVP once; dilute with 10 mL 0.9% NaCl; give over 2 minutes mb9 Route: IVP; Site: left antecubital; 11:55 Follow up: Response: No adverse reaction mb9 10:38 Drug: Insulin Regular Human Sub-Q 10 units Sub-Q once {Co-Signature: mb9 (Manuel, rs5 Iris Preciado RN).} Route: Sub-Q; Site: left upper arm; 11:33 Follow up: Response: No adverse reaction mb9 13:05 Drug: Insulin Drip - (Insulin Regular Human IVP 100 units, NS 0.9% IV 100 ml) IV at mb9 calculated rate continuous; Standard concentration 1unit/ml; Dose for DKA is 0.1 units/kg/hr {Co-Signature: rs5 (Mulugeta Albarado RN).} Route: IV; Rate: calculated rate; Site: right forearm; 15:22 Follow up: Response: No adverse reaction; IV Status: Infusion continued upon admission mb9 13:08 Drug: NS 0.9% IV 1000 ml IV at 1000 ml once; to be given as a bolus over 60 minutes mb9 Route: IV; Rate: 1000 ml; Site: left antecubital; 15:21 Follow up: Response: No adverse reaction; IV Status: Completed infusion mb9 14:05 Drug: morphine IVP or IV 4 mg IVP once over 4 mins Route: IVP; Infused Over: 4 mins; rs5 Site: left antecubital; 15:21 Follow up: Response: No adverse reaction mb9 Disposition Summary: 04/25/24 13:49 Hospitalization Ordered Notes: Hospitalization Status: Inpatient Admission rn Provider: Jennifer Hilario rn Location: Intensive Care Unit rn Condition: Stable rn Problem: new rn Symptoms: have improved rn Bed/Room Type: Standard rn Room Assignment: 2-(04/25/24 15:59) bd Diagnosis - Diabetes mellitus due to underlying condition with ketoacidosis without coma rn - 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 EDMS EDMS 10:09 10:09 BETA HYDROXYBUTYRATE+C.LAB.BRZ ordered. EDMS EDMS 10:10 10:09 BASIC METABOLIC PANEL+C.LAB.BRZ ordered. EDMS EDMS 12:16 10:09 Abdomen Pelvis W Con+CT.RAD.BRZ ordered. EDMS EDMS 15:59 13:49 rn sierra
--- NOTE | 2024-04-25 13:50 | ER ---
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 Pt states she feels SOB.". Coronavirus screen: Vaccine status: Patient reports receiving the 2nd dose of the covid vaccine. Ebola Screen: No symptoms or risks identified at this time. Initial Sepsis Screen: Does the patient meet any 2 criteria? No. Patient's initial sepsis screen is negative. Does the patient have a suspected source of infection? No. Patient's initial sepsis screen is negative. Risk Assessment: Do you want to hurt yourself or someone else? Patient reports no desire to harm self or others. Onset of symptoms was April 25, 2024. 10:15 Method Of Arrival: EMS: [facility] mb9 10:15 Acuity: MANDI 2 mb9 Triage Assessment: 10:18 General: Appears uncomfortable, Behavior is anxious. Pain: Complains of pain in abdomen mb9 Pain does not radiate. Quality of pain is described as pressure, throbbing, Pain began 2-3 days ago. Is intermittent. EENT: No signs and/or symptoms were reported regarding the EENT system. Neuro: Lynn Agitation-Sedation Scale (RASS): 0 - Alert and Calm Level of Consciousness is awake, alert, obeys commands, Oriented to person, place, time, situation, Appropriate for age. Cardiovascular: Heart tones S1 S2 present Patient's skin is warm and dry. Rhythm is sinus tachycardia. Respiratory: Airway is patent Respiratory effort is even, unlabored, Respiratory pattern is tachypnea. GI: Abdomen is round non-distended, Bowel sounds present X 4 quads. Abd is soft Abdomen is tender to palpation in epigastric area Reports nausea, vomiting. : Reports polydipsia and polyuria. Derm: Skin is pink, warm \\T\\ dry. Musculoskeletal: Range of motion: intact in all extremities. Historical: - Allergies: 10:16 No Known Allergies; mb9 - Home Meds: 10:16 Novolog U-100 Insulin aspart 100 unit/mL Sub-Q soln [Active]; Hydrochlorothiazide Oral mb9 [Active]; - PMHx: 10:16 Anxiety; diabetes mellitus; Hypertensive disorder; mb9 - PSHx: 10:16 None; mb9 - Immunization history:: Adult Immunizations up to date. - Infectious Disease History:: Denies. - Family history:: not pertinent. - Social history:: Smoking status: Patient reports the use of cigarette tobacco products, smokes one pack cigarettes per day. - Hospitalizations: : No recent hospitalization is reported. Screenin:36 [facility] ED Fall Risk Assessment (Adult) History of falling in the last 3 months, mb9 including since admission No falls in past 3 months (0 pts) Confusion or Disorientation No (0 pts) Intoxicated or Sedated No (0 pts) Impaired Gait Yes (1 pt) Mobility Assist Device Used No (0 pt) Altered Elimination No (0 pt) Score/Fall Risk Level 0 - 2 = Low Risk Oriented to surroundings, Maintained a safe environment, Educated pt \\T\\ family on fall prevention, incl call for assistance when getting out of bed. Abuse screen: Denies threats or abuse. Nutritional screening: No deficits noted. Tuberculosis screening: No symptoms or risk factors identified. Assessment: 10:36 Reassessment: see triage assessment. mb9 11:19 Reassessment: No changes from previously documented assessment. Patient and/or family mb9 updated on plan of care and expected duration. Pain level reassessed. Patient is alert, oriented x 3, equal unlabored respirations, skin warm/dry/pink. 12:35 Reassessment: No changes from previously documented assessment. Patient and/or family mb9 updated on plan of care and expected duration. Pain level reassessed. Patient is alert, oriented x 3, equal unlabored respirations, skin warm/dry/pink. 14:00 Reassessment: No changes from previously documented assessment. Patient and/or family mb9 updated on plan of care and expected duration. Pain level reassessed. Patient is alert, oriented x 3, equal unlabored respirations, skin warm/dry/pink. 15:00 Reassessment: see [facility] for further charting. mb9 Vital Signs: 10:15 BP 146 / 96; Pulse 97; Resp 22; Temp 98; Pulse Ox 98% on R/A; Weight 86.18 kg; Height 5 mb9 ft. 7 in. ; 11:21 BP 133 / 73; Pulse 69; Resp 18; Pulse Ox 97% on R/A; mb9 13:07 BP 143 / 84; Pulse 83; Resp 18; Pulse Ox 100% on R/A; mb9 14:30 BP 153 / 90; Pulse 81; Resp 16; Pulse Ox 100% on R/A; mb9 10:15 Body Mass Index 29.76 (86.18 kg, 170.18 cm) mb9 ED Course: 10:07 Patient arrived in ED. rn 10:07 Joon Rivers MD is Attending Physician. rn 10:15 Iris Jackson RN is Primary Nurse. mb9 10:15 Arm band placed on. mb9 10:16 Triage completed. mb9 10:17 Initial lab(s) drawn, by ak, sent to lab. Inserted saline lock: 20 gauge in left mb9 antecubital area, using aseptic technique. Blood collected. Flushed with 10 mL NS. 10:36 Placed in gown. Bed in low position. Call light in reach. Side rails up X 1. Provided mb9 Education on: press call light if needing anything. Client placed on continuous cardiac and pulse oximetry monitoring. NIBP monitoring applied. quality assurance monitor chassis on. 11:19 No provider procedures requiring assistance completed. mb9 12:30 US Abdomen Limited In Process Unspecified. EDMS 12:31 Abdomen In Process Unspecified. EDMS 13:08 Inserted saline lock: 22 gauge in right forearm, using aseptic technique. Flushed with mb9 10 mL NS. 13:48 Jennifer Hilario MD is Hospitalizing Provider. rn 15:00 Report given to CONOR Saldana. mb9 15:03 1503 CM met with patient at the bedside in the ED exam room. Patient identified by name ane and . Demographic sheet confirmed. Patient is unsure of the name of her new PCP, she reports going to [facility], [place], operated by [facility]. No MPOA in place. Patient states she lives with her boyfriend, Bal Corrigan, in a single story home. Only DME in the home is a glucometer and other diabetic supplies. No HH, no home oxygen or other medical services at this time. Her plan is to return home upon discharge and states that her boyfriend Bal can transport her home. CM team will continue to follow and coordinate care. 15:21 Patient admitted, IV remains in place. mb9 Administered Medications: 10:30 Drug: NS 0.9% IV 1000 ml IV at 1 bolus Per protocol; to be given as a bolus over 60 mb9 minutes Route: IV; Rate: 1 bolus; Site: left antecubital; 11:55 Follow up: Response: No adverse reaction; IV Status: Completed infusion mb9 10:32 Drug: Ondansetron IVP 4 mg IVP once; over 2 minutes Route: IVP; Site: left antecubital; mb9 11:55 Follow up: Response: No adverse reaction mb9 10:35 Drug: Famotidine IVP 20 mg IVP once; dilute with 10 mL 0.9% NaCl; give over 2 minutes mb9 Route: IVP; Site: left antecubital; 11:55 Follow up: Response: No adverse reaction mb9 10:38 Drug: Insulin Regular Human Sub-Q 10 units Sub-Q once {Co-Signature: mb9 (Manuel, rs5 Iris Preciado RN).} Route: Sub-Q; Site: left upper arm; 11:33 Follow up: Response: No adverse reaction mb9 13:05 Drug: Insulin Drip - (Insulin Regular Human IVP 100 units, NS 0.9% IV 100 ml) IV at mb9 calculated rate continuous; Standard concentration 1unit/ml; Dose for DKA is 0.1 units/kg/hr {Co-Signature: rs5 (Mulugeta Albarado RN).} Route: IV; Rate: calculated rate; Site: right forearm; 15:22 Follow up: Response: No adverse reaction; IV Status: Infusion continued upon admission mb9 13:08 Drug: NS 0.9% IV 1000 ml IV at 1000 ml once; to be given as a bolus over 60 minutes mb9 Route: IV; Rate: 1000 ml; Site: left antecubital; 15:21 Follow up: Response: No adverse reaction; IV Status: Completed infusion mb9 14:05 Drug: morphine IVP or IV 4 mg IVP once over 4 mins Route: IVP; Infused Over: 4 mins; rs5 Site: left antecubital; 15:21 Follow up: Response: No adverse reaction mb9 Medication: 10:37 VIS not applicable for this client. mb9 Outcome: 13:49 Decision to Hospitalize by Provider. rn 16:52 Patient left the ED. jb4 Signatures: Dispatcher [employer] EDMS Joon Rivers MD MD rn Bryson, James, RN RN jb4 Wilkerson, Mary Beth RN Mulugeta Dobbs, RN RN rs5 Priscilla Grier RN RN ane Wilkerson, Mary Beth RN mb9 Sotelo, Ricky RN rs5 Corrections: (The following items were deleted from the chart) 15:20 14:00 Reassessment: report given to CONOR aSldana mb9
[2024-04-25] MEDS ORDERED: MORPHINE 4 MG/ML SYR ONE (14:10)
[2024-04-25] MEDS ORDERED: ACETAMINOPHEN 325 MG TABLET PO PRN (14:21)
[2024-04-25] MEDS: NA CHLORIDE 0.9% 1,000 ML IV SCH (15:00)
[2024-04-25] MEDS ORDERED: D5 0.9 NS 1,000 ML IV ONE (15:16)
[2024-04-25] MEDS: D5 0.9 NS 1,000 ML IV SCH (15:18)
[2024-04-25 15:40] VITALS: BMI 29.6
--- NOTE | 2024-04-25 17:58 | P.HP ---
Patient History Date of Service: 04/25/24 Reason for admission: DKA, acute alcoholic pancreatitis History of Present Illness: Pamela Richter is a 43-year-old female with past medical history diabetes mellitusIDDM, anxiety, hypertension, trend LFT (CMP) Who presents to the ED with with severe epigastric pain with vomiting that started overnight. She reports drinking a lot of wine last night and realizes, this is why she has pancreatitis today. She reports having pancreatitis 10 years ago. During last pancreatitis episode, she reports needing long recovery time. Laboratory evaluation significant for serum glucose 617, sodium 125, bicarb 19, anion gap to 22.2, BUN/creatinine 21/1.71, ED GFR 37, lipase 1183. Initial vitals BP 146 / 96; Pulse 97; Resp 22; Temp 98; Pulse Ox 98% on R/A CT abdomen pelvis reports "[id number]-[id number] inflammatory changes are seen about the pancreatic head and body as well as the duodenal C-loop suggesting pancreatitis. Correlation with amylase/lipase levels would be recommended. [place] noncalcified lesion in the tail the pancreas is reduced in size since prior study. This is indeterminate but could represent a chronic pseudocyst. Right lower lobe pulmonary AVM suspected. There are no development of low- density areas in the liver which are nonspecific. They may represent areas of fatty sparing. Nonemergent MRI of the liver would be recommended for follow-up." Right upper quadrant ultrasound report "A gallstone is not seen. Gallbladder wall not thickened. Biliary tree normal caliber. IMPRESSION:No significant abnormalities displayed." Pamela will be admitted to hospitalist service for further treatment of DKA and acute alcoholic pancreatitis. Allergies No Known Allergies Allergy (Unverified 03/12/20 00:38) Home Medications: Insulin Aspart [Novolog Flexpen] See Protocol SQ TID #2 03/12/20 Atorvastatin Calcium [Lipitor] 40 mg PO DAILY 04/25/24 LORazepam [Ativan] 1 mg PO DAILY 04/25/24 - Past Medical/Surgical History Diabetic: Yes -: Diabetes mellitus type 1 -: Hypertension -: Narcotic drug abuse -: Alcohol abuse -: Tobacco abuse -: none Psychosocial/ Personal History: Patient lives with her boyfriend and is currently unemployed - Social History Smoking Status: Current every day smoker Alcohol use: Yes CD- Drugs: Yes Caffeine use: Yes Review of Systems General: Other (Uncomfortable) Gastrointestinal: Nausea, Vomiting, Abdominal Pain Physical Examination - Vital Signs Temperature: 97.9 F Blood Pressure: 139/88 Pulse: 81 Respirations: 23 Pulse Ox (%): 99 - Physical Exam General: Alert, Oriented x3, Other (Uncomfortable) HEENT: Atraumatic, Normocephalic, PERRLA Neck: Supple, 2+ carotid pulse no bruit Respiratory: Clear to auscultation bilaterally, Normal air movement Cardiovascular: Normal pulses, Regular rate/rhythm, Normal S1 S2 Capillary refill: <2 Seconds Gastrointestinal: Soft and benign, Hyperactive, Tenderness Musculoskeletal: No clubbing Integumentary: No rashes Neurological: Normal speech, Normal tone - Studies Laboratory Data (last 24 hrs) 04/25/24 04/25/24 10:30 10:30 WBC 8.40 Hgb 15.5 H Hct 45.6 H Plt Count 280 Sodium 125 L Potassium 4.2 BUN 21 H Creatinine 1.71 H Glucose 617 H* Total Bilirubin 1.2 H AST 12 L ALT 18 Alkaline Phosphatase 127 H Lipase 1183 H Assessment and Plan - Plan Assessment and plan DKA Acute alcoholic pancreatitis -Serum glucose 617, ketones present, anion gap 22.2, bicarb 19 -IV fluid resuscitation, NS til Blood sugar < 250 then D5 NS -Insulin drip, titrate with POC blood sugar -Q1h blood sugar -Q4H BMP -NPO -Pain control -reports drinking a lots of wine last night -trend lipase -A1C (diabetic) -accucheck with SSI LOLI Hyponatremic -BUN/creatinine 21/1.71, GFR 37, sodium 125 -IV fluids -Monitor in a.m. labs Multi Substance abuse -reports methamphetamine 2 days ago -Reports using marijuana, half to 1 pack cigarettes daily and alcohol -Toxicology screen pending DVT PPx heparin Full code LOS 2 days Discharge Plan: Home Plan to discharge in: 48 Hours - Advance Directives Does patient have a Living Will: No Does patient have a Durable POA for Healthcare: No
[2024-04-25] MEDS: ONDANSETRON 4 MG/2 ML VIAL IV PRN (18:04)
[2024-04-25] MEDS: HYDROMORPHONE HCL 1 MG/ML INJ IV PRN (18:04)
[2024-04-25 19:51] LABS: Anion Gap 9.4 mEq/L (5.0-15.0); Magnesium 1.4 mg/dL (1.6-2.4); Phosphorus 2.3 mg/dL (2.5-4.9); Potassium 3.4 mEq/L (3.5-5.1)
[2024-04-25] MEDS ORDERED: D50W 25 GM/50 ML SYRINGE IV PRN (20:26)
[2024-04-25] MEDS ORDERED: GLUCAGON 1 MG/VIAL IV PRN (20:26)
[2024-04-25] MEDS ORDERED: D10W 125 ML IV PRN (20:32)
[2024-04-25] MEDS: HEPARIN 5000 UNIT/ML 1 ML VIAL SQ SCH (21:04)
[2024-04-25] MEDS: INSULIN REGULAR (HUMAN) 100 UNIT/ML SQ SCH (21:04)
[2024-04-25] MEDS: POTASSIUM PHOS IN 0.9 % NACL 15 MMOL/250 ML BAG IV ONE (22:08)
[2024-04-25 22:50] LABS: Anion Gap 8.3 mEq/L (5.0-15.0); Magnesium 1.3 mg/dL (1.6-2.4); Phosphorus 2.1 mg/dL (2.5-4.9); Potassium 3.3 mEq/L (3.5-5.1)
[2024-04-25] MEDS: Magnesium Sulfate 2gm IVPB 2 G/50 ML BAG IV ONE (22:58)
[2024-04-26 02:43] LABS: Anion Gap 10.7 mEq/L (5.0-15.0); Potassium 3.7 mEq/L (3.5-5.1)
[2024-04-26 03:09] LABS: Specific Gravity 1.026 (1.005-1.030)
[2024-04-26] MEDS: KCL 20 MEQ/100 mL IVPB 20 MEQ/100 ML BAG IV SCH (03:14)
[2024-04-26 03:20] LABS: Barbiturates NEGATIVE (NEGATIVE); Benzodiazepines NEGATIVE (NEGATIVE); Cocaine POSITIVE (NEGATIVE); METHAMPHETAM POSITIVE (NEGATIVE); Methadone NEGATIVE (NEGATIVE); Opiates POSITIVE (NEGATIVE); Phencyclidine NEGATIVE (NEGATIVE); THC Cannibis NEGATIVE (NEGATIVE)
[2024-04-26 06:34] LABS: Absolute Eosinophils 0.1 K/uL (0-0.5); Absolute Lymphocytes (CBC) 1.3 K/uL (0.7-4.9); Absolute Monocytes 0.8 K/uL (0.1-1.3); Absolute Neutrophil 5.6 K/uL (1.8-8.0); Basophils % 0.4 % (0-1.3); Eosinophils % 1.2 % (0-4.4); Hematocrit 41.9 % (36.0-45.0); Hemoglobin 13.9 g/dL (12.0-15.0); Lymphocytes % 16.6 % (15.3-44.8); MCH 30.1 pg (27.0-35.0); MCHC 33.3 g/dL (32.0-36.0); MCV 90.4 fL (80-100); MPV 10.1 fL (7.6-11.3); Monocytes % 10.3 % (3.3-12.3); Neutrophils % 71.5 % (41.7-73.7); Platelets 217 thou/uL (152-406); RBC Red Blood Cell Count 4.64 M/uL (3.86-4.86); Red Cell Distribution Width 13.3 % (12.1-15.2)
[2024-04-26 06:58] LABS: Anion Gap 9.2 mEq/L (5.0-15.0); Magnesium 1.9 mg/dL (1.6-2.4); Phosphorus 2.6 mg/dL (2.5-4.9); Potassium 4.2 mEq/L (3.5-5.1)
[2024-04-26 07:16] LABS: ALT/SGPT < 14 U/L (13-56); AST/SGOT 15 U/L (15-37); Alkaline Phosphatase 87 U/L (45-117); Bilirubin Direct < 0.2 mg/dL (0-0.2); Bilirubin Indirect, Calculated 0.1 mg/dL (0.2-0.8); Bilirubin Total 0.3 mg/dL (0.2-1.0); Globulin 3.1 g/dL (2.3-3.5); Lipase 805 U/L (13-75); Protein, Total 6.1 g/dL (6.4-8.2)
[2024-04-26] MEDS: Ringers Lactate 1,000 ML IV SCH (08:01)
--- NOTE | 2024-04-26 14:27 | P.PN ---
Date of Service: 04/26/24 Subjective: Some improvement in epigastric pain overnight No acute events overnight Tolerating clear liquids ROS: 10 point ROS as noted above, otherwise negative Physical exam GEN: Alert, oriented, NAD HEENT: Normal conjunctiva, sclera anicteric CV: Regular rate and rhythm, no edema Pulm: Nonlabored respirations on room air ABD: Soft, moderate epigastric tenderness, nondistended MSK: No joint tenderness Integumentary: No rashes Neuro: Normal speech, normal affect Vitals reviewed Assessment and plan Diabetes mellitus type 2insulin-dependent with hyperglycemia DKA-resolved Acute alcoholic pancreatitis -Pain control -Continue aggressive IV fluids -Counseled on need for alcohol cessation -accucheck with SSI -Monitor CMP, lipase -Downgrade from ICU today -Liquid diet, will slowly advance LOLI Hyponatremia -Improving -IV fluids -Monitor in a.m. labs Multi Substance abuse -reports methamphetamine 2 days ago -Reports using marijuana, half to 1 pack cigarettes daily and alcohol -Counseled on need for cessation DVT PPx heparin Full code LOS 2 days Discharge Plan: Home Plan to discharge in: 48 Hours VTE: Code: Dispo: Time Spent Managing Pts Care (In Minutes): 35
[2024-04-26 23:34] VITALS: O2SAT 96
[2024-04-27 04:43] LABS: Hematocrit 38.2 % (36.0-45.0); Hemoglobin 12.7 g/dL (12.0-15.0); MCH 29.9 pg (27.0-35.0); MCHC 33.3 g/dL (32.0-36.0); MCV 89.8 fL (80-100); MPV 9.7 fL (7.6-11.3); Platelets 198 thou/uL (152-406); RBC Red Blood Cell Count 4.26 M/uL (3.86-4.86); Red Cell Distribution Width 13.2 % (12.1-15.2)
[2024-04-27 05:08] LABS: AST/SGOT 12 U/L (15-37); Albumin 2.6 g/dL (3.4-5.0); Albumin/Globulin Ratio 0.9 (1.1-1.8); Alkaline Phosphatase 81 U/L (45-117); Anion Gap 9.6 mEq/L (5.0-15.0); BUN Blood Urea Nitrogen 6 mg/dL (7-18); Bicarbonate 26 mEq/L (21-32); Bilirubin Total 0.3 mg/dL (0.2-1.0); Globulin 2.9 g/dL (2.3-3.5); Glomerular Filtration Rate 109 ml/min (=/>90); Glucose Level 191 mg/dL (74-106); Lipase 200 U/L (13-75); Potassium 3.6 mEq/L (3.5-5.1); Protein, Total 5.5 g/dL (6.4-8.2); Sodium Level 138 mEq/L (136-145)
[2024-04-27 05:14] LABS: ALT/SGPT < 14 U/L (13-56)
[2024-04-27] MEDS: POTASSIUM CL SA 10 MEQ TAB PO ONE (08:27)
--- NOTE | 2024-04-27 09:44 | P.PN ---
Date of Service: 04/27/24 Subjective: improving Still with back pain, nausea Will try full liquids today ROS: 10 point ROS as noted above, otherwise negative Physical exam GEN: Alert, oriented, NAD HEENT: Normal conjunctiva, sclera anicteric CV: Regular rate and rhythm, no edema Pulm: Nonlabored respirations on room air ABD: Soft, mild epigastric tenderness, nondistended MSK: No joint tenderness Integumentary: No rashes Neuro: Normal speech, normal affect Vitals reviewed Assessment and plan Diabetes mellitus type 2insulin-dependent with hyperglycemia DKA-resolved Acute alcoholic pancreatitis -Pain control -Continue aggressive IV fluids -Counseled on need for alcohol cessation -accucheck with SSI -Monitor CMP, lipase -Liquid diet, will slowly advance to full liquid today -Advance as tolerated LOLI Hyponatremia -Improving -IV fluids -Monitor in a.m. labs Multi Substance abuse -reports methamphetamine 2 days ago -Reports using marijuana, half to 1 pack cigarettes daily and alcohol -Counseled on need for cessation DVT PPx heparin Full code LOS 1-2 days Time Spent Managing Pts Care (In Minutes): 35
[2024-04-28] MEDS: CALCIUM CARBONATE CHEW 500MG TAB PO PRN (03:29)
[2024-04-28 05:23] LABS: Hematocrit 38.4 % (36.0-45.0); Hemoglobin 12.7 g/dL (12.0-15.0); MCH 29.7 pg (27.0-35.0); MCV 89.9 fL (80-100); MPV 10.6 fL (7.6-11.3); Platelets 177 thou/uL (152-406); RBC Red Blood Cell Count 4.27 M/uL (3.86-4.86); Red Cell Distribution Width 13.3 % (12.1-15.2)
[2024-04-28 05:38] LABS: Albumin 2.7 g/dL (3.4-5.0); Albumin/Globulin Ratio 0.9 (1.1-1.8); Anion Gap 9.2 mEq/L (5.0-15.0); Bilirubin Total 0.2 mg/dL (0.2-1.0); Globulin 2.9 g/dL (2.3-3.5); Potassium 4.2 mEq/L (3.5-5.1); Protein, Total 5.6 g/dL (6.4-8.2)
[2024-04-28 09:00] VITALS: BP 149/89; TEMP 97.5
[2024-04-28] MEDS: HYDROCODONE/APAP 5/325 MG TAB PO ONE (09:12)
--- NOTE | 2024-04-28 15:54 | P.DS ---
Admission Date: 04/25/24 Discharge Date: 04/28/24 Disposition: ROUTINE DISCHARGE Discharge Condition: GOOD Reason for Admission: DKA, acute alcoholic pancreatitis Brief History of Present Illness: Pamela Richter is a 43-year-old female with past medical history diabetes mellitusIDDM, anxiety, hypertension, trend LFT (CMP) Who presents to the ED with with severe epigastric pain with vomiting that started overnight. She reports drinking a lot of wine last night and realizes, this is why she has pancreatitis today. She reports having pancreatitis 10 years ago. During last pancreatitis episode, she reports needing long recovery time. Laboratory evaluation significant for serum glucose 617, sodium 125, bicarb 19, anion gap to 22.2, BUN/creatinine 21/1.71, ED GFR 37, lipase 1183. Initial vitals BP 146 / 96; Pulse 97; Resp 22; Temp 98; Pulse Ox 98% on R/A CT abdomen pelvis reports "Vaun-ds-svfnccje inflammatory changes are seen about the pancreatic head and body as well as the duodenal C-loop suggesting pancreatitis. Correlation with amylase/lipase levels would be recommended. [place] noncalcified lesion in the tail the pancreas is reduced in size since prior study. This is indeterminate but could represent a chronic pseudocyst. Right lower lobe pulmonary AVM suspected. There are no development of low- density areas in the liver which are nonspecific. They may represent areas of fatty sparing. Nonemergent MRI of the liver would be recommended for follow-up." Right upper quadrant ultrasound report "A gallstone is not seen. Gallbladder wall not thickened. Biliary tree normal caliber. IMPRESSION:No significant a bnormalities displayed." Hospital Course: Problem List Diabetes mellitus type 2insulin-dependent with hyperglycemia DKA-resolved Acute alcoholic pancreatitis LOLI Hyponatremia Multi Substance abuse Patient was admitted to the hospital for acute pancreatitis, hyperglycemia, borderline DKA. She did report drinking alcohol prior to this episode beginning. She was treated with IV fluids, as needed pain medications and insulin and had improvement in her symptoms gradually. Lipase on admission was 1183, down to 156 at discharge. She has been tolerating full liquid diet, still with some discomfort when trying regular foods, counseled to stay on full liquids for the next 2 days and slowly advance as tolerated. Patient was instructed to follow-up with the primary care doctor in 1 to 2 weeks Avoid alcohol as this can lead to recurrence of pancreatitis which can be life- threatening Additional CT findinds: LOWER CHEST: 24 x 13 mm lesion in the right lung base again noted suspicious for pulmonary AVM and unchanged. LIVER:19 mm low-density lesion is seen superior right lobe of the liver near the dome. Additional 40 mm area of diminished density noted adjacent to the gallbladder fossa. Grossly unremarkable gallbladder. We recommend non-emergent MRI of the liver for further evaluation which can be arranged with your primary care doctor Vital Signs/Physical Exam: Temp Pulse Resp BP Pulse Ox 97.5 F 108 H 14 149/89 H 96 04/28/24 08:00 04/28/24 08:00 04/28/24 08:00 04/28/24 08:00 04/28/24 08:00 General: Alert, In no apparent distress, Oriented x3 HEENT: Atraumatic, PERRLA Neck: Supple, JVD not distended Respiratory: Clear to auscultation bilaterally, Normal air movement Cardiovascular: Regular rate/rhythm, Normal S1 S2 Gastrointestinal: Normal bowel sounds, Soft and benign Musculoskeletal: No tenderness Integumentary: No rashes Neurological: Normal speech, Normal tone, Normal affect Laboratory Data at Discharge: WBC 4.90 thou/uL (4.3-10.9) 04/28/24 04:47 Hgb 12.7 g/dL (12.0-15.0) 04/28/24 04:47 Hct 38.4 % (36.0-45.0) 04/28/24 04:47 Plt Count 177 thou/uL (152-406) 04/28/24 04:47 Sodium 135 mEq/L (136-145) L 04/28/24 04:47 Potassium 4.2 mEq/L (3.5-5.1) D 04/28/24 04:47 BUN 7 mg/dL (7-18) 04/28/24 04:47 Creatinine 0.95 mg/dL (0.55-1.02) 04/28/24 04:47 Glucose 350 mg/dL (74-106) H 04/28/24 04:47 Phosphorus Cancelled 04/26/24 18:21 Magnesium Cancelled 04/26/24 18:21 Total Bilirubin 0.2 mg/dL (0.2-1.0) 04/28/24 04:47 AST 19 U/L (15-37) 04/28/24 04:47 ALT 15 U/L (13-56) 04/28/24 04:47 Alkaline Phosphatase 87 U/L (45-117) 04/28/24 04:47 Triglycerides Cancelled 04/25/24 Unknown Cholesterol Cancelled 04/25/24 Unknown HDL Cholesterol Cancelled 04/25/24 Unknown Cholesterol/HDL Ratio Cancelled 04/25/24 Unknown Lipase 156 U/L (13-75) H 04/28/24 04:47 Home Medications: Insulin Aspart [Novolog Flexpen] See Protocol SQ TID #2 03/12/20 Atorvastatin Calcium [Lipitor] 40 mg PO DAILY 04/25/24 LORazepam [Ativan] 1 mg PO DAILY 04/25/24 Hydrocodone 5/APAP 325 [[place] 5/325] 1 tab PO Q6H PRN #10 tab 04/28/24 New Medications: Hydrocodone 5/APAP 325 [[place] 5/325] 1 tab PO Q6H PRN #10 tab PRN Reason: Pain Physician Discharge Instructions: Patient was admitted to the hospital for acute pancreatitis, hyperglycemia, borderline DKA. She did report drinking alcohol prior to this episode beginning. She was treated with IV fluids, as needed pain medications and insulin and had improvement in her symptoms gradually. Lipase on admission was 1183, down to 156 at discharge. She has been tolerating full liquid diet, still with some discomfort when trying regular foods, counseled to stay on full liquids for the next 2 days and slowly advance as tolerated. Patient was instructed to follow-up with the primary care doctor in 1 to 2 weeks Avoid alcohol as this can lead to recurrence of pancreatitis which can be life- threatening Additional CT findinds: LOWER CHEST: 24 x 13 mm lesion in the right lung base again noted suspicious for pulmonary AVM and unchanged. LIVER:19 mm low-density lesion is seen superior right lobe of the liver near the dome. Additional 40 mm area of diminished density noted adjacent to the gallbladder fossa. Grossly unremarkable gallbladder. We recommend non-emergent MRI of the liver for further evaluation which can be arranged with your primary care doctor Diet: Full liqui Activity: Ad erick Followup: MELISSA TORRES [Primary Care Provider] - 1-2 Weeks Time spent managing pt's care (in minutes): 40
== END 2024-04-28 09:24 | disposition home or self-care (01) | DRG 438 ==
LOC: ER 10:03 → ERHOLD 14:21 → 3RD-ICU 16:26 → 2ND 04-26 11:15
PROVIDERS: ADMIT Internal Medicine; ATTEND Hospitalist
DX: K85.20 Alcohol induced acute pancreatitis without necrosis or infection (principal); E10.10 Type 1 diabetes mellitus with ketoacidosis without coma; K86.3 Pseudocyst of pancreas; N17.9 Acute kidney failure, unspecified; E87.1 Hypo-osmolality and hyponatremia; F15.10 Other stimulant abuse, uncomplicated; F12.10 Cannabis abuse, uncomplicated; I10 Essential (primary) hypertension; F17.210 Nicotine dependence, cigarettes, uncomplicated; Z79.4 Long term (current) use of insulin; Z71.41 Alcohol abuse counseling and surveillance of alcoholic; Z79.899 Other long term (current) drug therapy
CPT/HCPCS: 36415; 74176; 76705; 80048; 80053; 80061; 80076; 80307; 81003; 81025; 82010; 82077; 82947; 83036; 83690; 83735; 84100; 85025; 85027; 96361; 96365; 96366; 96372; 96375; 99285; J1171; J1644; J2405; J3475; J3480; J7030; J7042; J7120

== ENCOUNTER 2024-05-04 06:17 | Emergency (ER) | payer MEDICARE ==
[2024-05-04 07:06] LABS: Absolute Basophils 0.1 K/uL (0-0.5); Absolute Eosinophils 0.1 K/uL (0-0.5); Absolute Lymphocytes (CBC) 1.9 K/uL (0.7-4.9); Absolute Monocytes 0.7 K/uL (0.1-1.3); Absolute Neutrophil 4.6 K/uL (1.8-8.0); Basophils % 0.8 % (0-1.3); Eosinophils % 0.9 % (0-4.4); Hematocrit 43.7 % (36.0-45.0); Hemoglobin 14.8 g/dL (12.0-15.0); Lymphocytes % 25.9 % (15.3-44.8); MCH 30.1 pg (27.0-35.0); MCHC 33.9 g/dL (32.0-36.0); MCV 88.9 fL (80-100); Monocytes % 9.2 % (3.3-12.3); Neutrophils % 63.2 % (41.7-73.7); Nucleated Red Blood Cells % 0.5 % (0-0); Platelets 364 thou/uL (152-406); RBC Red Blood Cell Count 4.91 M/uL (3.86-4.86); Red Cell Distribution Width 13.5 % (12.1-15.2)
[2024-05-04] MEDS ORDERED: NA CHLORIDE 0.9% 1,000 ML ONE (07:17)
[2024-05-04 08:00] LABS: SARS-CoV-2 Antigen CONTROL BLUE LINE VIS/BG OK; SARS-CoV-2 Antigen Rapid Res Negative (Negative)
--- NOTE | 2024-05-04 08:21 | RAD REPORT ---
EXAM: CT Head Brain Wo Cont HISTORY: AMS COMPARISON: None TECHNIQUE: Multiple contiguous axial images were obtained for a CT of the brain without contrast. Sag ittal and coronal reformats were performed. One or more of the following dose reduction techniques were used: Automated exposure control, adjus tment of the mA and kV according to patient size, and iterative reconstruction. Unless otherwise specified, incidental findings do not require dedicated imaging follow-up. FINDINGS: No evidence of hydrocephalus, intracranial hemorrhage, or extra-axial fluid collection. The brain is normal in morphology. The calvarium is intact. The visualized paranasal sinuses and mastoid air cells are essentially clear . IMPRESSION: No evidence of acute intracranial abnormality.
[2024-05-04 08:44] LABS: Specific Gravity > 1.030 (1.005-1.030)
[2024-05-04 08:46] LABS: Specific Gravity > 1.030 (1.005-1.030); Sqamous Epithelial <5 /HPF (None Seen); Urine Bacteria None Seen /HPF (<20); Urine Bilirubin NEGATIVE (Negative); Urine Blood Negative (Negative); Urine Clarity Clear (Clear); Urine Color Colorless (Yellow); Urine Culture Reflex Order NOT NEEDED; Urine Glucose 4+ (Over) (Negative); Urine Ketones TRACE (Negative); Urine Microscopic Reflex YN ORDER UMIC; Urine Mucus Slight /HPF (None Seen); Urine Nitrite NEGATIVE (Negative); Urine Protein NEGATIVE (Negative); Urine RBC <5 /HPF (None Seen); Urine Urobilinogen Normal (Normal); Urine WBC <5 /HPF (<5); Urine pH 5.5 (5.0-7.0)
[2024-05-04 09:07] LABS: Barbiturates NEGATIVE (NEGATIVE); Benzodiazepines NEGATIVE (NEGATIVE); Cocaine NEGATIVE (NEGATIVE); METHAMPHETAM POSITIVE (NEGATIVE); Methadone NEGATIVE (NEGATIVE); Opiates NEGATIVE (NEGATIVE); Phencyclidine NEGATIVE (NEGATIVE); THC Cannibis NEGATIVE (NEGATIVE)
[2024-05-04 09:34] LABS: Albumin/Globulin Ratio 1.1 (1.1-1.8); Anion Gap 10.7 mEq/L (5.0-15.0); Bilirubin Total 0.5 mg/dL (0.2-1.0); Globulin 3.8 g/dL (2.3-3.5); Potassium 3.7 mEq/L (3.5-5.1); Protein, Total 7.8 g/dL (6.4-8.2)
--- NOTE | 2024-05-04 09:48 | EDPHYS ---
Physician Documentation [facility] Name: Pamela Richter Age: 43 yrs Sex: Female : 1980 Arrival Date: 05/04/2024 Time: 06:17 Bed 3 Private MD: ED Physician Joon Rivers HPI: 05/04 07:28 This 43 yrs old Female presents to ER via Wheelchair with complaints of High Blood rn Sugar. 07:28 The patient or guardian reports hyperglycemia, that was potentially precipitated by rn forgetting medications. Onset: The symptoms/episode began/occurred yesterday. Current symptoms: In the emergency department the patient's symptoms have improved. The patient has experienced similar episodes in the past. reports patient very sleepy over the last 2 days, forgot to take her insulin and her glucose read high. Recent admission to hospital for alcohol induced pancreatitis with DKA. No fever or chills. Patient denies abdominal pain. Reports generalized weakness and fatigue. No nausea or vomiting. No diarrhea. No blood in stool.. Historical: - Allergies: 06:38 No Known Allergies; ha1 - Home Meds: 06:38 losartan Oral [Active]; Novolog U-100 Insulin aspart 100 unit/mL Sub-Q soln [Active]; ha1 Lantus U-100 Insulin 100 unit/mL Sub-Q soln [Active]; - PMHx: 06:38 Anxiety; diabetes mellitus; Hypertensive disorder; Pancreatitis; ha1 - Immunization history:: Adult Immunizations up to date. - Infectious Disease History:: Denies. - Social history:: Smoking status: Patient reports the use of cigarette tobacco products, smokes one-half pack cigarettes per day. - Family history:: not pertinent. - Hospitalizations: : No recent hospitalization is reported. ROS: 07:28 Constitutional: Negative for fever, chills, and weight loss, Cardiovascular: Negative rn for chest pain, palpitations, and edema, Respiratory: Negative for shortness of breath, cough, wheezing, and pleuritic chest pain, Abdomen/GI: Negative for abdominal pain, nausea, vomiting, diarrhea, and constipation, Back: Negative for injury and pain, MS/Extremity: Negative for injury and deformity, Skin: Negative for injury, rash, and discoloration, Neuro: Positive for generalized weakness Exam: 07:28 Constitutional: This is a well developed, well nourished patient who is somnolent but rn arousable to voice Head/Face: Normocephalic, atraumatic. ENT: Dry mucous membranes Cardiovascular: Regular rate and rhythm. No pulse deficits. Respiratory: No increased work of breathing, no retractions or nasal flaring. Abdomen/GI: Soft, non-tender MS/ Extremity: Pulses equal, no cyanosis. Neuro: Somnolent, awakens to voice. Moves all 4 extremities with equal strength. Vital Signs: 06:20 BP 122 / 81; Pulse 99; Resp 17 S; Temp 97.1(T); Pulse Ox 99% on R/A; Weight 82.55 kg ha1 (M); Height 5 ft. 7 in. ; 07:38 BP 106 / 71; Pulse 102; Resp 22; Pulse Ox 98% on R/A; hb 08:45 BP 114 / 74; Pulse 90; Resp 14; Pulse Ox 99% on R/A; hb 12:11 BP 116 / 70; Pulse 85; Resp 18 S; Pulse Ox 100% on R/A; kc6 06:20 Body Mass Index 28.50 (82.55 kg, 170.18 cm) ha1 MDM: 06:56 Medical Screening Exam initiated rn 09:44 Differential diagnosis: DKA, hyperglycemia, drug use, dehydration, DKA, viral illness, rn palliative care non-compliance. Data reviewed: vital signs, nurses notes, lab test result(s), radiologic studies, CT scan, and as a result, I will discharge patient. Counseling: I had a detailed discussion with the patient and/or guardian regarding the historical points, exam findings, and any diagnostic results supporting the discharge/admit diagnosis, lab results, radiology results, the need for outpatient follow up, to return to the emergency department if symptoms worsen or persist or if there are any questions or concerns that arise at home. Response to treatment: the patient's symptoms have markedly improved after treatment, and as a result, I will discharge patient. Special discussion: I discussed with the patient/guardian in detail that at this point there is no indication for admission to the hospital. It is understood, however, that if the symptoms persist or worsen the patient needs to return immediately for re-evaluation. ED course: No acute findings and workup, methamphetamine positive, CT head negative. Patient more alert now. Glucose down to 200, no acidosis. Will discharge home with return precautions. Advised to stop using drugs. 05/04 06:40 Order name: CBC with Diff; Complete Time: 07:28 ha1 05/04 06:40 Order name: CMP; Complete Time: 09:40 ha1 05/04 06:40 Order name: Lipase; Complete Time: 09:40 ha1 05/04 06:40 Order name: Test, Urine; Complete Time: 09:27 ha1 05/04 06:40 Order name: Urinalysis w/ reflexes; Complete Time: 09:27 ha1 05/04 06:44 Order name: Glucose, Ancillary Testing; Complete Time: 06:57 EDMS 05/04 07:07 Order name: Flu; Complete Time: 08:23 rn 05/04 07:07 Order name: SARS-COV-2 Antigen Rapid; Complete Time: 08:23 rn 05/04 07:28 Order name: Glucose, Ancillary Testing; Complete Time: 07:47 EDMS 05/04 07:49 Order name: ETOH Level; Complete Time: 08:23 eb 05/04 08:31 Order name: LAB Add On 05/04 08:46 Order name: Urine Drug Screen; Complete Time: 09:27 EDMS 05/04 07:07 Order name: CT Head Brain wo Cont; Complete Time: 08:23 rn 05/04 06:40 Order name: IV Saline Lock; Complete Time: 06:58 ha1 05/04 06:40 Order name: Labs collected and sent; Complete Time: 06:58 [facility] 05/04 07:07 Order name: Glucose Level; Complete Time: 07:53 rn Administered Medications: 07:35 Drug: NS 0.9% IV 1000 ml IV at 1000 ml once; to be given as a bolus over 60 minutes hb Route: IV; Rate: 1000 ml; Site: right hand; 10:19 Follow up: Response: No adverse reaction; IV Status: Completed infusion; IV Intake: kc6 1000ml Disposition Summary: 05/04/24 09:47 Discharge Ordered Notes: Location: Home rn Problem: new rn Symptoms: have improved rn Condition: Stable rn Diagnosis - Hyperglycemia, unspecified rn - Dehydration rn - Muscle weakness (generalized) rn Followup: rn - With: Private Physician - When: As needed - Reason: Recheck today's complaints, Re-evaluation by your physician Discharge Instructions: - Discharge Summary Sheet rn - Dehydration, Adult rn - Hyperglycemia rn - Weakness rn - Blood Glucose Monitoring, Adult rn Forms: - Medication Reconciliation Form rn - Antibiotic rn surgical - Prescription Opioid Use rn - Patient Portal Instructions rn - Leadership Thank You Letter rn Signatures: Dispatcher [employer] Joon Mckeon MD MD rn Baxter, Heather, RN RN Caitlin Salas RN RN ha1 Macie Cox RN kc6 Corrections: (The following items were deleted from the chart) 06:41 06:40 CBC+H.LAB.BRZ ordered. EDMS EDMS 06:41 06:40 COMPREHENSIVE METABOLIC PANEL+C.LAB.BRZ ordered. EDMS EDMS 06:41 06:40 LIPASE+C.LAB.BRZ ordered. EDMS EDMS 06:41 06:40 Test, Urine+UC.LAB.BRZ ordered. EDMS EDMS 06:41 06:41 Urinalysis+U.LAB.BRZ ordered. EDMS EDMS 07:07 07:07 Influenza Screen (A \T\ B)+BA.LAB.BRZ ordered. EDMS EDMS 07:07 07:07 SARS-COV-2 Antigen Rapid+I.LAB.BRZ ordered. EDMS EDMS 07:29 07:29 LAB ADD ON+C.LAB.BRZ ordered. EDMS EDMS
--- NOTE | 2024-05-04 09:48 | ER ---
Nurse's Notes [facility] Name: Pamela Richter Age: 43 yrs Sex: Female : 1980 Arrival Date: 05/04/2024 Time: 06:17 Bed 3 Private MD: Diagnosis: Hyperglycemia, unspecified;Dehydration;Muscle weakness (generalized) Presentation: 05/04 06:20 Chief complaint: Spouse and/or significant other states: HIGH GLUCOSE LEVEL AT HOME, ha1 DIZZY, WEAK. GAVE 44 UNITS OF LONG ACTING AT 0245 AND 15 UNITS OF SHORT ACTING AT 0330. 06:20 Coronavirus screen: At this time, the client does not indicate any symptoms associated ha1 with coronavirus-19. Ebola Screen: No symptoms or risks identified at this time. Initial Sepsis Screen: Does the patient meet any 2 criteria? No. Patient's initial sepsis screen is negative. Does the patient have a suspected source of infection? No. Patient's initial sepsis screen is negative. Risk Assessment: Do you want to hurt yourself or someone else? Patient reports no desire to harm self or others. Onset of symptoms was May 04, 2024. 06:20 Method Of Arrival: Wheelchair ha1 06:20 Acuity: MANDI 2 ha1 Triage Assessment: 06:23 General: Appears ill, Behavior is drowsy. Pain: Denies pain. Neuro: Level of ha1 Consciousness is lethargic, Oriented to person, place. Neuro: Reports dizziness, weakness. Cardiovascular: Capillary refill < 3 seconds Patient's skin is warm and dry. Respiratory: Airway is patent Respiratory effort is even, unlabored, Respiratory pattern is regular, symmetrical. GI: Reports ELEVATED GLUCOSE. : No signs and/or symptoms were reported regarding the genitourinary system. Historical: - Allergies: 06:38 No Known Allergies; ha1 - Home Meds: 06:38 losartan Oral [Active]; Novolog U-100 Insulin aspart 100 unit/mL Sub-Q soln [Active]; ha1 Lantus U-100 Insulin 100 unit/mL Sub-Q soln [Active]; - PMHx: 06:38 Anxiety; diabetes mellitus; Hypertensive disorder; Pancreatitis; ha1 - Immunization history:: Adult Immunizations up to date. - Infectious Disease History:: Denies. - Social history:: Smoking status: Patient reports the use of cigarette tobacco products, smokes one-half pack cigarettes per day. - Family history:: not pertinent. - Hospitalizations: : No recent hospitalization is reported. Screenin:25 [facility] ED Fall Risk Assessment (Adult) History of falling in the last 3 months, br2 including since admission No falls in past 3 months (0 pts) Confusion or Disorientation Yes (5 pts) Intoxicated or Sedated No (0 pts) Impaired Gait Yes (1 pt) Mobility Assist Device Used No (0 pt) Altered Elimination No (0 pt) Score/Fall Risk Level 0 - 2 = Low Risk Maintained a safe environment. Abuse screen: UNKNOWN. Nutritional screening: No deficits noted. Tuberculosis screening: No symptoms or risk factors identified. Assessment: 07:38 General: Appears in no apparent distress. hb 07:38 Pain: Unable to use pain scale. Patient is disoriented. FLACC scale score is 0 out of hb 10. Neuro: Level of Consciousness is obtunded. Cardiovascular: Patient's skin is warm and dry. Rhythm is sinus tachycardia. Respiratory: Respiratory effort is even, unlabored, Respiratory pattern is regular, symmetrical. GI: No signs and/or symptoms were reported involving the gastrointestinal system. : No signs and/or symptoms were reported regarding the genitourinary system. EENT: No signs and/or symptoms were reported regarding the EENT system. Derm: Skin is pink, warm \T\ dry. Musculoskeletal: No signs and/or symptoms reported regarding the musculoskeletal system. 09:00 Reassessment: Patient appears in no apparent distress at this time. No changes from hb previously documented assessment. Patient and/or family updated on plan of care and expected duration. Pain level reassessed. 09:47 Reassessment: d/c pending transport home. will be back to pick her up. kc6 10:18 Reassessment: Patient appears in no apparent distress at this time. No changes from kc6 previously documented assessment. Patient and/or family updated on plan of care and expected duration. Pain level reassessed. 12:11 Reassessment: Patient appears in no apparent distress at this time. No changes from kc6 previously documented assessment. Patient and/or family updated on plan of care and expected duration. Pain level reassessed. Patient is alert, oriented x 3, equal unlabored respirations, skin warm/dry/pink. Patient states feeling better. Patient states symptoms have improved. Vital Signs: 06:20 BP 122 / 81; Pulse 99; Resp 17 S; Temp 97.1(T); Pulse Ox 99% on R/A; Weight 82.55 kg ha1 (M); Height 5 ft. 7 in. ; 07:38 BP 106 / 71; Pulse 102; Resp 22; Pulse Ox 98% on R/A; hb 08:45 BP 114 / 74; Pulse 90; Resp 14; Pulse Ox 99% on R/A; hb 12:11 BP 116 / 70; Pulse 85; Resp 18 S; Pulse Ox 100% on R/A; kc6 06:20 Body Mass Index 28.50 (82.55 kg, 170.18 cm) ha1 ED Course: 06:22 Patient arrived in ED. gm2 06:25 Placed in gown. Bed in low position. Call light in reach. Side rails up X 1. Provided br2 Education on: PLAN OF CARE. 06:25 Arm band placed on right wrist. br2 06:25 Inserted saline lock: 20 gauge in left antecubital area, using aseptic technique. Blood br2 collected. Flushed with 10 mL NS. 06:38 Triage completed. ha1 06:51 Melody Cohen, RN is Primary Nurse. br2 06:56 Joon Rivers MD is Attending Physician. rn 07:23 SARS-COV-2 Antigen Rapid Sent. am7 07:23 Flu Sent. am7 07:36 Inserted saline lock: 22 gauge in right hand, using aseptic technique. Blood collected. hb Flushed with 10 mL NS. 07:57 CT Head Brain wo Cont In Process Unspecified. EDMS 12:11 No provider procedures requiring assistance completed. IV discontinued, intact, kc6 bleeding controlled, No redness/swelling at site. Pressure dressing applied. Administered Medications: 07:35 Drug: NS 0.9% IV 1000 ml IV at 1000 ml once; to be given as a bolus over 60 minutes hb Route: IV; Rate: 1000 ml; Site: right hand; 10:19 Follow up: Response: No adverse reaction; IV Status: Completed infusion; IV Intake: kc6 1000ml Medication: 07:38 VIS not applicable for this client. hb Intake: 10:19 IV: 1000ml; Total: 1000ml. kc6 Outcome: 09:47 Discharge ordered by . rn 12:11 Discharged to home ambulatory, with significant other, kc6 12:11 Condition: good 12:11 Discharge instructions given to patient, significant other, Instructed on discharge instructions, follow up and referral plans. Demonstrated understanding of instructions, follow-up care, 12:12 Patient left the ED. kc6 Signatures: Dispatcher [employer] EDJoon Vidal MD MD rn Baxter, Heather RN RN hb Caitlin Coello RN RN ha1 Macie Cox RN RN april6 Gloria Devi 2 Melody Cohen RN RN br2 Elly Mariee am7 Corrections: (The following items were deleted from the chart) 07:39 07:38 General: Appears hb hb
[2024-05-04 13:29] VITALS: TEMP 97.1
[2024-05-04 13:46] VITALS: BP 116/70; O2SAT 100
== END 2024-05-04 12:12 | disposition home or self-care (01) ==
LOC: ER 06:17
DX: E11.65 Type 2 diabetes mellitus with hyperglycemia (principal); Z79.4 Long term (current) use of insulin; E86.0 Dehydration; M62.81 Muscle weakness (generalized); I10 Essential (primary) hypertension; F17.210 Nicotine dependence, cigarettes, uncomplicated
CPT/HCPCS: 36415; 70450; 80053; 80307; 81001; 81025; 82077; 82947; 83690; 85025; 87804; 87811; 96360; 96361; 99284; J7030

== ENCOUNTER 2024-06-26 23:33 | Inpatient (IN) | payer MEDICARE ==
[2024-06-26] MEDS ORDERED: ONDANSETRON 4 MG/2 ML VIAL ONE (23:49)
[2024-06-26] MEDS ORDERED: MORPHINE 4 MG/ML SYR ONE (23:50)
[2024-06-26] MEDS ORDERED: NA CHLORIDE 0.9% 1,000 ML ONE (23:50)
[2024-06-27 01:04] LABS: Absolute Eosinophils 0.1 K/uL (0-0.5); Absolute Monocytes 0.6 K/uL (0.1-1.3); Absolute Neutrophil 4.9 K/uL (1.8-8.0); Basophils % 0.4 % (0-1.3); Eosinophils % 0.8 % (0-4.4); Hematocrit 42.1 % (36.0-45.0); Hemoglobin 14.4 g/dL (12.0-15.0); Lymphocytes % 26.6 % (15.3-44.8); MCH 30.2 pg (27.0-35.0); MCHC 34.2 g/dL (32.0-36.0); MCV 88.1 fL (80-100); MPV 9.5 fL (7.6-11.3); Monocytes % 7.5 % (3.3-12.3); Neutrophils % 64.7 % (41.7-73.7); Nucleated Red Blood Cells % 0.2 % (0-0); Platelets 261 thou/uL (152-406); RBC Red Blood Cell Count 4.77 M/uL (3.86-4.86); Red Cell Distribution Width 13.5 % (12.1-15.2)
[2024-06-27 01:12] LABS: Specific Gravity > 1.030 (1.005-1.030); Sqamous Epithelial <5 /HPF (None Seen); Urine Bacteria <20 /HPF (<20); Urine Bilirubin NEGATIVE (Negative); Urine Blood Negative (Negative); Urine Clarity Clear (Clear); Urine Color Yellow (Yellow); Urine Culture Reflex Order NOT NEEDED; Urine Glucose 1+ (Negative); Urine Ketones NEGATIVE (Negative); Urine Microscopic Reflex YN ORDER UMIC; Urine Mucus Slight /HPF (None Seen); Urine Nitrite NEGATIVE (Negative); Urine Protein TRACE (Negative); Urine RBC <5 /HPF (None Seen); Urine Urobilinogen Normal (Normal); Urine WBC <5 /HPF (<5)
[2024-06-27 01:13] LABS: Albumin 3.7 g/dL (3.4-5.0); Albumin/Globulin Ratio 0.9 (1.1-1.8); Anion Gap 14.2 mEq/L (5.0-15.0); Bilirubin Total 1.2 mg/dL (0.2-1.0); Globulin 3.9 g/dL (2.3-3.5); Potassium 3.2 mEq/L (3.5-5.1); Protein, Total 7.6 g/dL (6.4-8.2)
--- NOTE | 2024-06-27 01:50 | ER ---
Nurse's Notes [facility] Name: Pamela Richter Age: 43 yrs Sex: Female : 1980 Arrival Date: 06/26/2024 Time: 23:33 Bed 15 Private MD: Diagnosis: Acute alcoholic pancreatitis, type I uncontrolled diabetes Presentation: 06/26 23:41 Chief complaint: Patient states: abdominal pain, nausea, and vomiting. States she cp4 believes it to be pancreatitis. Coronavirus screen: Client denies travel out of the [place] in the last 14 days. At this time, the client does not indicate any symptoms associated with coronavirus-19. Ebola Screen: Patient negative for fever greater than or equal to 101.5 degrees Fahrenheit, and additional compatible Ebola Virus Disease symptoms Patient denies exposure to infectious person. Patient denies travel to an Ebola-affected area in the 21 days before illness onset. No symptoms or risks identified at this time. Initial Sepsis Screen: Does the patient meet any 2 criteria? No. Patient's initial sepsis screen is negative. Does the patient have a suspected source of infection? No. Patient's initial sepsis screen is negative. Risk Assessment: Do you want to hurt yourself or someone else? Patient reports no desire to harm self or others. Onset of symptoms was June 26, 2024. 23:41 Method Of Arrival: Ambulatory cp4 23:41 Acuity: MANDI 3 cp4 Triage Assessment: 23:44 General: Appears in no apparent distress. comfortable, Behavior is calm, cooperative, cp4 appropriate for age. Pain: Complains of pain in epigastric area. GI: Reports diarrhea, nausea, vomiting. 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 - Infectious Disease History:: Denies. - Social history:: Smoking status: Patient reports the use of cigarette tobacco products, smokes one pack cigarettes per day. Screenin:40 [facility] ED Fall Risk Assessment (Adult) History of falling in the last 3 months, ha1 including since admission No falls in past 3 months (0 pts) Confusion or Disorientation No (0 pts) Intoxicated or Sedated No (0 pts) Impaired Gait No (0 pts) Mobility Assist Device Used No (0 pt) Altered Elimination No (0 pt) Score/Fall Risk Level 0 - 2 = Low Risk Oriented to surroundings, Maintained a safe environment, Hourly rounding (assess needs \T\ fall precautionary measures) done. Abuse screen: Denies threats or abuse. Denies injuries from another. Nutritional screening: No deficits noted. Tuberculosis screening: No symptoms or risk factors identified. Assessment: 23:40 General: Appears uncomfortable, Behavior is calm, cooperative. Pain: Complains of pain ha1 in epigastric area Pain radiates to left upper quadrant Pain currently is 9 out of 10 on a pain scale. Quality of pain is described as aching, Pain began suddenly. Neuro: Level of Consciousness is awake, alert, obeys commands, Oriented to person, place, time, situation. Cardiovascular: Capillary refill < 3 seconds Patient's skin is warm and dry. Respiratory: Airway is patent Respiratory effort is even, unlabored, Respiratory pattern is regular, symmetrical. GI: Abdomen is round non-distended, Reports upper abdominal pain, epigastric pain, nausea, vomiting. : No signs and/or symptoms were reported regarding the genitourinary system. Derm: Skin is pink, warm \T\ dry. Musculoskeletal: Circulation, motion, and sensation intact. Range of motion: intact in all extremities. 06/27 00:20 Reassessment: Patient and/or family updated on plan of care and expected duration. Pain ha1 level reassessed. Patient is alert, oriented x 3, equal unlabored respirations, skin warm/dry/pink. pain 3/10 Patient states feeling better. Patient states symptoms have improved. Vital Signs: 06/26 23:41 BP 165 / 106; Pulse 53; Resp 18; Temp 98.1; Pulse Ox 100% ; Weight 86.18 kg; Height 5 cp4 ft. 7 in. ; Pain 8/10; 01/20 00:20 BP 116 / 71; Pulse 99; Resp 18 S; Pulse Ox 98% on R/A; ha1 01:00 BP 122 / 76; Pulse 98; Resp 18 S; Pulse Ox 97% on R/A; ha1 02:00 BP 109 / 62; Pulse 88; Resp 17 S; Pulse Ox 97% on R/A; ha1 03:00 BP 103 / 56; Pulse 88; Resp 17 S; Pulse Ox 95% on R/A; ha1 06/26 23:41 Body Mass Index 29.76 (86.18 kg, 170.18 cm) cp4 06/26 23:41 Pain Scale: Adult cp4 ED Course: 06/26 23:35 Patient arrived in ED. jj6 23:36 Patient has correct armband on for positive identification. Placed in gown. Bed in low ha1 position. Call light in reach. Side rails up X 1. Adult w/ patient. 23:36 Provided Education on: plan of care . ha1 23:37 Dionne Porter PA-C is PHCP. sb4 23:37 Julio César Guo MD is Attending Physician. sb4 23:43 Triage completed. cp4 23:48 Arm band placed on right wrist. Patient placed in waiting room. cp4 06/27 00:16 Caitlin Coello, CONOR is Primary Nurse. ha1 00:31 CBC with Diff Sent. ha1 00:31 CMP Sent. ha1 00:31 Lipase Sent. ha1 00:31 Urinalysis w/ reflexes Sent. ha1 00:32 ETOH Level Sent. ha1 00:32 Test, Serum Sent. ha1 01:33 CT Abd/Pelvis - IV Contrast Only In Process Unspecified. EDMS 01:49 John Land MD is Hospitalizing Provider. sp4 Administered Medications: 06/26 23:58 Drug: Ondansetron IVP 4 mg IVP once; over 2 minutes Route: IVP; Site: right antecubital;ha1 06/27 00:20 Follow up: Response: No adverse reaction; Nausea is decreased ha1 00:01 Drug: morphine IVP or IV 4 mg IVP once over 4 mins Route: IVP; Infused Over: 4 mins; ha1 Site: left antecubital; 00:20 Follow up: Response: No adverse reaction; Pain is decreased; RASS: Alert and Calm (0) ha1 00:01 Drug: NS 0.9% IV 1000 ml IV at 1 bolus Per protocol; to be given as a bolus over 60 ha1 minutes Route: IV; Rate: 1 bolus; Site: right antecubital; 02:00 Follow up: Response: No adverse reaction; IV Status: Completed infusion; IV Intake: ha1 1000ml 02:12 CANCELLED (Physician Discretion): ns 0.45 % with kcl20 meq/l 1000 ml IV at 125 ml/hr dd2 once 02:22 Drug: morphine IVP or IV 4 mg IVP once over 4 mins Route: IVP; Infused Over: 4 mins; dd2 Site: left antecubital; 02:50 Follow up: Response: No adverse reaction; Marked relief of symptoms; Pain is decreased; ha1 RASS: Alert and Calm (0) 02:22 Drug: Ativan IVP 1 mg IVP once Route: IVP; Site: left antecubital; dd2 03:00 Follow up: Response: No adverse reaction; Marked relief of symptoms ha1 02:22 Drug: metoCLOPramide IVP 10 mg IVP once; over 1 to 2 minutes Route: IVP; Site: left dd2 antecubital; 03:00 Follow up: Response: No adverse reaction; Marked relief of symptoms ha1 02:22 Drug: diphenhydrAMINE IVP 25 mg IVP once Route: IVP; Site: left antecubital; dd2 03:00 Follow up: Response: No adverse reaction; Marked relief of symptoms ha1 02:22 Drug: NS 0.9% with KCl IV 20 mEq/L 1000 ml IV at 125 ml/hr continuous Route: IV; Rate: dd2 125 ml/hr; Site: left antecubital; 03:00 Follow up: Response: No adverse reaction; IV Status: Infusion continued upon admission ha1 Medication: 03:13 VIS not applicable for this client. ha1 Intake: 02:00 IV: 1000ml; Total: 1000ml. ha1 Outcome: 01:50 Decision to Hospitalize by Provider. sp4 09:26 Patient left the ED. ld1 Signatures: Dispatcher [employer] EDMS Kendal Hogan RN RN ld1 Karolyn Carroll jj6 Caitlin Coello RN RN ha1 Dionne Porter PA-C PA-C sb4 Julio César Guo MD MD sp4 Laury Nieves cp4 HARVEY POWELL, RN RN dd2
--- NOTE | 2024-06-27 01:50 | EDPHYS ---
Physician Documentation [facility] Name: Pamela Richter Age: 43 yrs Sex: Female : 1980 Arrival Date: 06/26/2024 Time: 23:33 Bed 15 Private MD: ED Physician Julio César Guo HPI: 06/26 23:41 This 43 yrs old Female presents to ER via Unassigned with complaints of sb4 Nausea/Vomiting, Abdominal Pain, High Blood Sugar. 23:41 Patient reports nausea, vomiting, diarrhea, abdominal pain x 2 days. She states that it sb4 feels similar to her prior pancreatitis episodes. She states that her pancreatitis is usually caused by alcohol, which she has been drinking in excess recently. States that her blood sugar has also been running high, in the upper 300s. She does not feel like she is in DKA though. Denies any fever. 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 - Infectious Disease History:: Denies. - Social history:: Smoking status: Patient reports the use of cigarette tobacco products, smokes one pack cigarettes per day. ROS: 23:41 Constitutional: Negative for fever, chills, and weight loss, sb4 23:41 Abdomen/GI: Positive for abdominal pain, nausea, vomiting, and diarrhea, Exam: 23:41 Head/Face: Normocephalic, atraumatic. Eyes: Extra-ocular motions intact. Periorbital sb4 areas with no swelling, redness, or edema. ENT: Mucous membranes moist. Cardiovascular: Regular rate and rhythm with a normal S1 and S2. Respiratory: No increased work of breathing, no retractions or nasal flaring. Skin: Warm, dry with normal turgor. Normal color with no rashes, no lesions, and no evidence of cellulitis. 23:41 Constitutional: The patient appears alert, awake, uncomfortable, 23:41 Abdomen/GI: Inspection: abdomen appears normal, Bowel sounds: normal, Palpation: soft, mild abdominal tenderness, in the epigastric area, Vital Signs: 23:41 BP 165 / 106; Pulse 53; Resp 18; Temp 98.1; Pulse Ox 100% ; Weight 86.18 kg; Height 5 cp4 ft. 7 in. ; Pain 8/10; 06/27 00:20 BP 116 / 71; Pulse 99; Resp 18 S; Pulse Ox 98% on R/A; ha1 01:00 BP 122 / 76; Pulse 98; Resp 18 S; Pulse Ox 97% on R/A; ha1 02:00 BP 109 / 62; Pulse 88; Resp 17 S; Pulse Ox 97% on R/A; ha1 03:00 BP 103 / 56; Pulse 88; Resp 17 S; Pulse Ox 95% on R/A; ha1 06/26 23:41 Body Mass Index 29.76 (86.18 kg, 170.18 cm) cp4 06/26 23:41 Pain Scale: Adult cp4 MDM: 06/26 23:37 Medical Screening Exam initiated sb4 23:42 Differential diagnosis: gastritis, cholecystitis, pancreatitis, viral gastroenteritis, sb4 gastroenteritis. 06/27 01:50 Data reviewed: vital signs, nurses notes, lab test result(s), radiologic studies, CT sp4 scan. Consideration of Admission/Observation Patient was admitted/placed on observation. Escalation of care including admission/observation considered. Management of patient was discussed with the following: Hospitalist: Emery ADLER . 02:09 ED course: CLINICAL HISTORY: Abdominal pain. COMPARISON: CTAbdomen pelvis 04/25/2024. sp4 TECHNIQUE: CTABDOMEN PELVIS WITH IV CONTRAST on 06/26/2024 11:40 PM BRUSHER AND SHEARER This exam was performed according to our departmental dose-optimization program, which includes automated exposure control, adjustment of the mA and/or kV according to patient size and/or use of iterative reconstruction technique. 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 Abdomen: Liver is fatty in attenuation. There is no biliary dilatation. Gallbladder is mildly distended. The duodenum is mildly dilated diffusely. Pancreatic tail cystic lesion measures 4.8 x 2.3 cm with faint mural calcifications. There is moderate inflammation surrounding much of the pancreas as well as the duodenum. The adrenal glands and kidneys are unremarkable. Abdominal aorta is normal in course and caliber without aneurysm. There is no free air. There is no retroperitoneal adenopathy. Pelvis: There is no bowel obstruction. Urinary bladder is unremarkable. There is no free fluid. Uterus is normal in size. Appendix is normal. Skeleton: There are no acute osseous findings. No suspicious bony lesions. 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 . 06/26 23:40 Order name: CBC with Diff; Complete Time: [facility] 06/26 23:40 Order name: CMP; Complete Time: [facility] 06/26 23:40 Order name: Lipase; Complete Time: [facility] 06/26 23:40 Order name: Urinalysis w/ reflexes; Complete Time: [facility] 06/26 23:40 Order name: Test, Serum; Complete Time: [facility] 06/26 23:46 Order name: ETOH Level; Complete Time: [facility] 06/27 00:32 Order name: Glucose, Ancillary Testing; Complete Time: 00:34 EDMS 06/27 02:23 Order name: CBC with Automated Diff EDMS 06/27 02:23 Order name: CBC with Automated Diff EDMS 06/27 02:23 Order name: Comprehensive Metabolic Panel EDNM 06/27 02:23 Order name: Comprehensive Metabolic Panel [facility] 06/27 06:46 Order name: Glucose, Ancillary Testing; Complete Time: 16:58 [facility] 06/26 23:40 Order name: CT Abd/Pelvis - IV Contrast Only; Complete Time: 16:58 [facility] 06/26 23:40 Order name: IV Saline Lock; Complete Time: 00:00 [facility] 06/26 23:40 Order name: Labs collected and sent; Complete Time: 00:00 [facility] 06/26 23:41 Order name: Accucheck; Complete Time: 00:31 sb4 Administered Medications: 06/26 23:58 Drug: Ondansetron IVP 4 mg IVP once; over 2 minutes Route: IVP; Site: right antecubital;1 06/27 00:20 Follow up: Response: No adverse reaction; Nausea is decreased ha1 00:01 Drug: morphine IVP or IV 4 mg IVP once over 4 mins Route: IVP; Infused Over: 4 mins; ha1 Site: left antecubital; 00:20 Follow up: Response: No adverse reaction; Pain is decreased; RASS: Alert and Calm (0) ha1 00:01 Drug: NS 0.9% IV 1000 ml IV at 1 bolus Per protocol; to be given as a bolus over 60 ha1 minutes Route: IV; Rate: 1 bolus; Site: right antecubital; 02:00 Follow up: Response: No adverse reaction; IV Status: Completed infusion; IV Intake: ha1 1000ml 02:12 CANCELLED (Physician Discretion): ns 0.45 % with kcl20 meq/l 1000 ml IV at 125 ml/hr dd2 once 02:22 Drug: morphine IVP or IV 4 mg IVP once over 4 mins Route: IVP; Infused Over: 4 mins; dd2 Site: left antecubital; 02:50 Follow up: Response: No adverse reaction; Marked relief of symptoms; Pain is decreased; ha1 RASS: Alert and Calm (0) 02:22 Drug: Ativan IVP 1 mg IVP once Route: IVP; Site: left antecubital; dd2 03:00 Follow up: Response: No adverse reaction; Marked relief of symptoms ha1 02:22 Drug: metoCLOPramide IVP 10 mg IVP once; over 1 to 2 minutes Route: IVP; Site: left dd2 antecubital; 03:00 Follow up: Response: No adverse reaction; Marked relief of symptoms ha1 02:22 Drug: diphenhydrAMINE IVP 25 mg IVP once Route: IVP; Site: left antecubital; dd2 03:00 Follow up: Response: No adverse reaction; Marked relief of symptoms ha1 02:22 Drug: NS 0.9% with KCl IV 20 mEq/L 1000 ml IV at 125 ml/hr continuous Route: IV; Rate: dd2 125 ml/hr; Site: left antecubital; 03:00 Follow up: Response: No adverse reaction; IV Status: Infusion continued upon admission ha1 Disposition: 01:49 Co-signature as Attending Physician, Julio César Guo MD I agree with the assessment sp4 and plan of care. I reviewed the patient's care provided by Advanced Practice Provider \T\ agree w/ the diagnosis \T\ care plan. I personally saw the pt \T\ performed a substantive portion of the visit, incldng all aspects of the (History/Exam/Medical Decision Making). 16:59 Chart complete. sb4 Disposition Summary: 06/27/24 01:50 Hospitalization Ordered Notes: Hospitalization Status: Inpatient Admission sp4 Provider: [place] sp4 Condition: Stable sp4 Problem: new sp4 Symptoms: have improved sp4 Bed/Room Type: Standard sp4 Location: Telemetry/MedSurg (Inpatient)(06/27/24 08:53) ja1 Room Assignment: 415(06/27/24 08:53) ja Diagnosis - Acute alcoholic pancreatitis, type I uncontrolled diabetes sp4 Forms: - Medication Reconciliation Form sp4 - SBAR form sp4 - Leadership Thank You Letter sp4 Signatures: Dispatcher [employer] EDMS Jeff Taveras RN RN ja1 Michelle Rojas RN RN vc1 Caitlin Coello RN RN ha1 Dionne Porter PA-C PAKeren sb4 Julio César Guo MD MD sp4 Laury Nieves DIANA, RN RN dd2 Corrections: (The following items were deleted from the chart) 06/26 23:47 23:47 ETHANOL+C.LAB.BRZ ordered. EDNM EDMS 06/27 02:12 01:46 NS 0.45 % with KCl IV 20 mEq/L 1000 ml IV at 125 ml/hr once ordered. sp4 dd2 03:13 01:50 Telemetry/MedSurg (Inpatient) sp4 vc1 03:13 01:50 sp4 vc1 08:53 03:13 [facility] ER HOLD vc1 ja1 08:53 03:13 ERHOLD- vc1 ja1
[2024-06-27] MEDS ORDERED: LORazepam 2 MG/ML VIAL ONE (02:03)
[2024-06-27] MEDS ORDERED: METOCLOPRAMIDE 10 MG/2mL INJ ONE (02:04)
[2024-06-27] MEDS ORDERED: DIPHENHYDRAMINE 50 MG/ML VIAL ONE (02:04)
[2024-06-27] MEDS ORDERED: MORPHINE 4 MG/ML SYR ONE (02:05)
[2024-06-27] MEDS ORDERED: NS KCL 20MEQ 1,000 ML IV ONE (02:08)
--- NOTE | 2024-06-27 02:08 | RAD REPORT ---
CLINICAL HISTORY: Abdominal pain. COMPARISON: CT Abdomen pelvis 04/25/2024. 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 FINDINGS: There is a 2.4 x 1.1 cm right lower lobe nodular focus consistent with an AVM. Abdomen: Liver is fatty in attenuation. There is no biliary dilatation. Gallbladder is mildly distend ed. The duodenum is mildly dilated diffusely. Pancreatic tail cystic lesion measures 4.8 x 2.3 cm with faint mural calcifications. There is moderate inflammation surrounding much of the pancreas as w ell as the duodenum. The adrenal glands and kidneys are unremarkable. Abdominal aorta is normal in course and caliber without aneurysm. There is no free air. There is no r etroperitoneal adenopathy. Pelvis: There is no bowel obstruction. Urinary bladder is unremarkable. There is no free fluid. Uteru s is normal in size. Appendix is normal. Skeleton: There are no acute osseous findings. No suspicious bony lesions. 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 Electronically signed by: Sesar Leavitt MD 06/27/2024 02:04 AM INVOICING MACHINE OPERATOR Due to temporary technical issues with the PACS/140Fire reporting system, reports are being mekhi d by the in-house radiologist without review as a courtesy to ensure prompt reporting the interpreting radiologist is fully responsible for the content of the report. Transcribed Date/Time: 06/27/2024 2:08 AM
[2024-06-27] MEDS ORDERED: ACETAMINOPHEN 325 MG TABLET PO PRN (02:19)
--- NOTE | 2024-06-27 02:19 | P.HP ---
Certification for Inpatient Patient admitted to: Inpatient With expected LOS: >2 Midnights Practitioner: I am a practitioner with admitting privileges, knowledge of patient current condition, hospital course, and medical plan of care. Services: Services provided to patient in accordance with Admission requirements found in Title 42 Section 412.3 of the Code of Federal Regulations Patient History Date of Service: 06/27/24 Reason for admission: Abdominal Pain History of Present Illness: 43 yrs old Female with past medical history of Anxiety; diabetes mellitus; Hypertensive disorder; Pancreatitis presents to ER with complaints of Nausea/Vomiting, Abdominal Pain, High Blood Sugar. Patient reports nausea, vomiting, diarrhea, abdominal pain started 2 days ago. Pain is located epigastric and radiating diffusely, sharp in character , 8 out of 10 in severity, intermittent, associated with nausea and vomiting.She states that it feels similar to her prior pancreatitis episodes. She states that her pancreatitis is usually caused by alcohol, which she has been drinking in excess recently. States that her blood sugar has also been running high, in the upper 300s. Patient was assessed in the ER and was admitted for acute on chronic pancreatitis with lipase of more than 1000. Allergies No Known Allergies Allergy (Unverified 03/12/20 00:38) Home medications list reviewed: Yes Home Medications: Insulin Aspart [Novolog Flexpen] See Protocol SQ TID #2 03/12/20 Atorvastatin Calcium [Lipitor] 40 mg PO DAILY 04/25/24 LORazepam [Ativan] 1 mg PO DAILY 04/25/24 Hydrocodone 5/APAP 325 [[place] 5/325] 1 tab PO Q6H PRN #10 tab 04/28/24 - Past Medical/Surgical History Diabetic: Yes Past Medical History: Reviewed- Non-Contributory -: Diabetes mellitus type 1 -: Hypertension -: Narcotic drug abuse -: Alcohol abuse -: Tobacco abuse Past Surgical History: Reviewed- Non-Contributory -: none Psychosocial/ Personal History: Patient lives with her boyfriend and is currently unemployed - Social History Smoking Status: Current some day smoker Alcohol use: Yes CD- Drugs: Yes Caffeine use: Yes Review of Systems 10-point ROS is otherwise unremarkable Physical Examination - Vital Signs Temperature: 98.1 F Blood Pressure: 132/76 Pulse: 78 Respirations: 18 Pulse Ox (%): 94 - Physical Exam General: Alert, In no apparent distress, Oriented x3 HEENT: Atraumatic, Normocephalic Neck: Supple, 2+ carotid pulse no bruit Respiratory: Clear to auscultation bilaterally, Normal air movement Cardiovascular: No edema, Regular rate/rhythm, Normal S1 S2 Capillary refill: <2 Seconds Gastrointestinal: W/out hepatosplenomegaly, Tenderness Musculoskeletal: No clubbing, No swelling Integumentary: No rashes, No breakdown Neurological: Normal strength at 5/5 x4 extr, Cranial nerves 3-12 intact, Normal reflexes 2+ Lymphatics: No axilla or inguinal lymphadenopathy - Studies Laboratory Data (last 24 hrs) 06/27/24 06/27/24 00:10 00:10 WBC 7.60 Hgb 14.4 Hct 42.1 Plt Count 261 Sodium 135 L Potassium 3.2 L BUN 22 H Creatinine 1.33 H Glucose 216 H Total Bilirubin 1.2 H AST 46 H ALT 35 Alkaline Phosphatase 160 H Lipase 1002 H Assessment and Plan - Plan Acute on chronic pancreatitis Hyponatremia Hypokalemia Acute kidney injury Diabetes with hyperglycemia Hypercalcemia Elevated LFTs Alcohol abuse Plan IV hydration Monitor lipase level Pain control Advised alcohol cessation Insulin sliding scale Electrolytes monitor and replace accordingly Monitor LFTs Watch closely for alcohol withdrawal Started on Librium GI/DVT prophylaxis Advance directive full code Discharge Plan: Home Plan to discharge in: 48 Hours - Advance Directives Does patient have a Living Will: No Does patient have a Durable POA for Healthcare: No - Code Status/Comfort Care Code Status: Full Code Time Spent Managing Pts Care (In Minutes): 48
[2024-06-27 04:19] VITALS: BMI 29.6
[2024-06-27] MEDS: Ringers Lactate 1,000 ML IV SCH (05:00)
[2024-06-27] MEDS: chlordiazePOXIDE HCl 25 MG CAP PO SCH (06:00)
[2024-06-27] MEDS ORDERED: Ringers Lactate 1,000 ML IV ONE (06:23)
[2024-06-27] MEDS ORDERED: chlordiazePOXIDE HCl 25 MG CAP ONE (07:45)
[2024-06-27] MEDS ORDERED: ENOXAPARIN 40 MG/0.4 ML SQ ONE (07:45)
[2024-06-27] MEDS: FLU (Fluarix Triv) TS24-25(6MOS UP)/PF 45 MCG/0.5 ML Syringe IM ONE (07:45)
[2024-06-27] MEDS: ENOXAPARIN 40 MG/0.4 ML SQ SCH (07:50)
[2024-06-27] MEDS: MORPHINE 2 MG/ML SYR IV PRN (09:55)
[2024-06-27] MEDS: HYDROCODONE/APAP 5/325 MG TAB PO PRN (15:04)
[2024-06-28 06:48] LABS: Absolute Eosinophils 0.1 K/uL (0-0.5); Absolute Lymphocytes (CBC) 1.2 K/uL (0.7-4.9); Absolute Monocytes 0.3 K/uL (0.1-1.3); Absolute Neutrophil 1.9 K/uL (1.8-8.0); Basophils % 0.6 % (0-1.3); Eosinophils % 1.9 % (0-4.4); Hematocrit 36.8 % (36.0-45.0); Hemoglobin 12.5 g/dL (12.0-15.0); Lymphocytes % 35.2 % (15.3-44.8); MCH 30.5 pg (27.0-35.0); MCHC 34.1 g/dL (32.0-36.0); MCV 89.4 fL (80-100); MPV 9.9 fL (7.6-11.3); Neutrophils % 53.3 % (41.7-73.7); Nucleated Red Blood Cells % 0.1 % (0-0); Platelets 160 thou/uL (152-406); RBC Red Blood Cell Count 4.11 M/uL (3.86-4.86); Red Cell Distribution Width 13.2 % (12.1-15.2)
[2024-06-28 07:32] LABS: Albumin 2.8 g/dL (3.4-5.0); Bilirubin Total 0.4 mg/dL (0.2-1.0); Globulin 2.8 g/dL (2.3-3.5); Protein, Total 5.6 g/dL (6.4-8.2)
[2024-06-28] MEDS: VENLAFAXINE HCL XR 37.5MG CAP PO SCH (10:51)
[2024-06-28] MEDS: lamoTRIgine 25 MG TAB PO SCH (10:51)
[2024-06-28] MEDS: INSULIN GLARGINE 100 UNIT/ML SQ ONE (10:52)
[2024-06-28] MEDS: NA CHLORIDE 0.9% 500 ML IV ONE (12:11)
[2024-06-28] MEDS: chlordiazePOXIDE HCl 25 MG CAP PO ONE (12:11)
[2024-06-28] MEDS ORDERED: chlordiazePOXIDE HCl 25 MG CAP PO SCH ×2 (13:00→17:00)
[2024-06-28] MEDS: chlordiazePOXIDE HCl 25 MG CAP PO SCH (14:05)
[2024-06-29] MEDS: INSULIN REGULAR (HUMAN) 100 UNIT/ML SQ SCH ×2 (01:01→21:00)
[2024-06-29] MEDS ORDERED: GLUCAGON 1 MG/VIAL IM PRN ×2 (05:31→20:13)
[2024-06-29] MEDS ORDERED: D10W 125 ML IV PRN ×2 (05:31→20:13)
[2024-06-29] MEDS: ONDANSETRON 4 MG/2 ML VIAL IV PRN (14:21)
[2024-06-29] MEDS: LORazepam 2 MG/ML VIAL IV ONE (22:35)
[2024-06-29 23:39] VITALS: O2SAT 97
--- NOTE | 2024-06-30 01:50 | P.PN ---
Subjective Date of Service: 06/28/24 Patient continues to have quite a bit of pain. Continue with NPO at this time. Lipase levels are pending. Continue with aggressive IV hydration. Counseled patient regarding alcohol cessation. Review of Systems 10-point ROS is otherwise unremarkable Physical Examination - Vital Signs Temperature: 98.2 F Blood Pressure: 137/82 Pulse: 72 Respirations: 18 Pulse Ox (%): 97 - Physical Exam General: Alert, In no apparent distress, Oriented x3 Respiratory: Clear to auscultation bilaterally, Normal air movement Cardiovascular: Regular rate/rhythm, Normal S1 S2, No murmurs Gastrointestinal: Normal bowel sounds, Soft and benign, Non-distended, No rebound, No guarding, Tenderness Musculoskeletal: No clubbing, No swelling, No tenderness Neurological: Sensation intact, Cranial nerves 3-12 intact - Studies Medications List Reviewed: Yes Assessment & Plan - Problems (Diagnosis) (1) Acute alcoholic pancreatitis Current Visit: Yes Status: Acute (2) Pseudocyst of pancreas due to chronic pancreatitis Current Visit: Yes Status: Acute (3) Alcohol abuse Current Visit: Yes Status: Acute - Plan Plan: 1. Acute on chronic alcoholic pancreatitis; continue with aggressive IV hydration. Continue with pain control. Continue with NPO at this time. Counseled regarding alcohol cessation. Continue with delirium tremens prevention as well. Will have social work talk with family regarding alcohol cessation. Discharge Plan: Home Plan to discharge in: Greater than 2 days - Advance Directives Does patient have a Living Will: No Does patient have a Durable POA for Healthcare: No - Code Status/Comfort Care Code Status: Full Code Critical Care: No Time Spent Managing PTS Care (In Minutes): 45
--- NOTE | 2024-06-30 01:52 | P.PN ---
Date of Service: 06/29/24 Subjective Patient is clinically doing much better. Pain is better controlled. Started on a clear liquid diet and advanced as tolerated. Physical Examination - Vital Signs Reviewed - Physical Exam General: Alert, In no apparent distress, Oriented x3 Respiratory: Clear to auscultation bilaterally, Normal air movement Cardiovascular: Regular rate/rhythm, Normal S1 S2, No murmurs Gastrointestinal: Normal bowel sounds, Soft and benign, Non-distended, No rebound, No guarding, minimal tenderness Musculoskeletal: No clubbing, No swelling, No tenderness Neurological: Sensation intact, Cranial nerves 3-12 intact Assessment & Plan - Problems (Diagnosis) (1) Acute alcoholic pancreatitis Current Visit: Yes Status: Acute (2) Pseudocyst of pancreas due to chronic pancreatitis Current Visit: Yes Status: Acute (3) Alcohol abuse Current Visit: Yes Status: Acute - Plan Continue with plan of care as mentioned below 1. Acute on chronic alcoholic pancreatitis; continue with aggressive IV hydration. Continue with pain control. advanced diet as tolerated as patient is doing better and lipase has improved. Counseled regarding alcohol cessation. Continue with delirium tremens prevention as well. Will have social work talk with family regarding alcohol cessation. Discharge Plan: Home Plan to discharge in: Greater than 2 days - Advance Directives Does patient have a Living Will: No Does patient have a Durable POA for Healthcare: No - Code Status/Comfort Care Code Status: Full Code Critical Care: No Time Spent Managing PTS Care (In Minutes): 30
[2024-06-30 08:26] VITALS: BP 139/79; TEMP 97.8
[2024-06-30 09:45] LABS: Absolute Eosinophils 0.1 K/uL (0-0.5); Absolute Lymphocytes (CBC) 1.2 K/uL (0.7-4.9); Absolute Monocytes 0.3 K/uL (0.1-1.3); Basophils % 0.8 % (0-1.3); Eosinophils % 1.8 % (0-4.4); Hematocrit 34.1 % (36.0-45.0); Hemoglobin 11.8 g/dL (12.0-15.0); Lymphocytes % 33.8 % (15.3-44.8); MCH 30.6 pg (27.0-35.0); MCHC 34.5 g/dL (32.0-36.0); MCV 88.8 fL (80-100); MPV 9.4 fL (7.6-11.3); Monocytes % 7.3 % (3.3-12.3); Neutrophils % 56.3 % (41.7-73.7); Nucleated Red Blood Cells % 0.1 % (0-0); Platelets 162 thou/uL (152-406); RBC Red Blood Cell Count 3.84 M/uL (3.86-4.86); Red Cell Distribution Width 13.2 % (12.1-15.2)
[2024-06-30 09:51] LABS: Albumin 2.8 g/dL (3.4-5.0); Albumin/Globulin Ratio 0.9 (1.1-1.8); Anion Gap 8.4 mEq/L (5.0-15.0); Bilirubin Total 0.4 mg/dL (0.2-1.0); Potassium 4.4 mEq/L (3.5-5.1); Protein, Total 5.8 g/dL (6.4-8.2)
== END 2024-06-30 11:48 | disposition home or self-care (01) | DRG 439 ==
LOC: ER 23:33 → ERHOLD 06-27 02:19 → 4TH 06-27 09:01
PROVIDERS: ADMIT Family Medicine; ATTEND Hospitalist
DX: K85.20 Alcohol induced acute pancreatitis without necrosis or infection (principal); E87.1 Hypo-osmolality and hyponatremia; N17.9 Acute kidney failure, unspecified; K86.3 Pseudocyst of pancreas; I10 Essential (primary) hypertension; E87.6 Hypokalemia; E83.52 Hypercalcemia; E10.65 Type 1 diabetes mellitus with hyperglycemia; F10.10 Alcohol abuse, uncomplicated; K86.0 Alcohol-induced chronic pancreatitis; F17.210 Nicotine dependence, cigarettes, uncomplicated; R79.89 Other specified abnormal findings of blood chemistry; Z56.0 Unemployment, unspecified; Z79.4 Long term (current) use of insulin; Z79.899 Other long term (current) drug therapy; Y90.0 Blood alcohol level of less than 20 mg/100 ml
CPT/HCPCS: 36415; 74177; 80053; 81001; 82077; 82947; 83690; 84703; 85025; 99284; J1200; J1650; J2270; J2405; J2765; J3480; J7030; J7040; J7120; Q9967

== ENCOUNTER 2024-07-02 05:01 | Observation (INO) | payer MEDICARE ==
[2024-07-02 05:39] LABS: Absolute Eosinophils 0.1 K/uL (0-0.5); Absolute Lymphocytes (CBC) 1.3 K/uL (0.7-4.9); Absolute Monocytes 0.4 K/uL (0.1-1.3); Absolute Neutrophil 3.5 K/uL (1.8-8.0); Basophils % 0.6 % (0-1.3); Hemoglobin 12.6 g/dL (12.0-15.0); Lymphocytes % 24.3 % (15.3-44.8); MCH 30.5 pg (27.0-35.0); MCHC 34.2 g/dL (32.0-36.0); MCV 89.4 fL (80-100); MPV 9.3 fL (7.6-11.3); Monocytes % 8.1 % (3.3-12.3); Platelets 229 thou/uL (152-406); RBC Red Blood Cell Count 4.14 M/uL (3.86-4.86); Red Cell Distribution Width 13.5 % (12.1-15.2)
[2024-07-02 05:49] LABS: PT Prothrombin Time 11.7 SECONDS (9.4-12.5); PTT, Activated Partial Thromb 30.9 SECONDS (24.3-36.9); Protime INR 1.12
[2024-07-02] MEDS ORDERED: PANTOPRAZOLE 40 MG INJ ONE (05:58)
[2024-07-02] MEDS ORDERED: METOCLOPRAMIDE 10 MG/2mL INJ ONE (05:58)
[2024-07-02] MEDS ORDERED: NA CHLORIDE 0.9% 250 ML ONE (05:59)
[2024-07-02] MEDS ORDERED: NA CHLORIDE 0.9% 1,000 ML ONE ×2 (05:59→10:03)
--- NOTE | 2024-07-02 06:00 | EDPHYS ---
Physician Documentation [facility] Name: Pamela Richter Age: 43 yrs Sex: Female : 1980 Arrival Date: 07/02/2024 Time: 05:01 Bed 5 Private MD: LETICIA Physician Orion Cook HPI: 07/02 05:19 This 43 yrs old Female presents to ER via Unassigned with complaints of cp Nausea/Vomiting, PT STATES SHE IS VOMITING UP BLACK COFFEE GROUND MATTER. 05:19 The patient presents to the emergency department with vomiting, 2 times today, cp described as coffee ground in nature, abdominal pain. Onset: The symptoms/episode began/occurred today. Possible causes: flare up of bowel problem, stomach ulcers. Associated signs and symptoms: Pertinent positives: nausea, Pertinent negatives: diarrhea, fever. 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 - Infectious Disease History:: Denies. - Social history:: Smoking status: Patient reports the use of cigarette tobacco products, smokes one pack cigarettes per day. ROS: 05:25 Eyes: Negative for injury, pain, redness, and discharge, cp 05:25 Constitutional: Negative for body aches, chills, fever, 05:25 ENT: Negative for drainage from ear(s), ear pain, sore throat, difficulty swallowing, difficulty handling secretions, 05:25 Cardiovascular: Negative for chest pain, edema, palpitations, 05:25 Respiratory: Negative for cough, shortness of breath, wheezing, 05:25 Abdomen/GI: Positive for abdominal pain, nausea and vomiting, 05:25 Back: Positive for pain at rest, 05:25 : Negative for urinary symptoms, 05:25 Neuro: Positive for dizziness, Negative for altered mental status, headache, syncope, near syncope, weakness, Exam: 05:28 Head/Face: Normocephalic, atraumatic. cp 05:28 Constitutional: The patient appears in no acute distress, alert, awake, non-diaphoretic, non-toxic, well developed, well nourished, 05:28 Eyes: Periorbital structures: appear normal, Conjunctiva: normal, no exudate, no injection, Sclera: no appreciated abnormality, Lids and lashes: appear normal, bilaterally, 05:28 ENT: External ear(s): are unremarkable, Nose: is normal, Mouth: Lips: moist, Oral mucosa: moist, Posterior pharynx: Airway: no evidence of obstruction, patent, 05:28 Chest/axilla: Inspection: normal, :28 Cardiovascular: Rate: normal, Rhythm: regular, Edema: is not appreciated, JVD: is not appreciated, 05:28 Respiratory: the patient does not display signs of respiratory distress, Respirations: normal, no use of accessory muscles, no retractions, labored breathing, is not present, Breath sounds: are clear throughout, no decreased breath sounds, no stridor, no wheezing, :28 Abdomen/GI: Inspection: abdomen appears normal, Bowel sounds: active, all quadrants, Palpation: soft, in all quadrants, mild abdominal tenderness, in the epigastric area, rebound tenderness, is not appreciated, 05:28 Back: pain, that is mild, 05:28 Neuro: Orientation: to person, place \T\ time. Mentation: is normal, Motor: moves all fours, 06:12 ECG was reviewed by the Attending Physician. [facility] Vital Signs: 05:15 BP 137 / 87; Pulse 85; Resp 15; Pulse Ox 97% on R/A; al5 05:19 BP 154 / 89; Pulse 86; Resp 18; Temp 98.3; Pulse Ox 99% on R/A; Weight 81.65 kg; Height al5 5 ft. 7 in. ; Pain 6/10; 05:45 BP 156 / 97; Pulse 78; Resp 16; Pulse Ox 98% on R/A; al5 07:17 BP 150 / 85; Pulse 79; Resp 15; Pulse Ox 93% ; ko1 07:52 Pulse Ox 90% on R/A; aa5 07:53 Pulse Ox 96% on 2 lpm NC; aa5 09:00 BP 129 / 97; Pulse 73; Resp 16 S; Pulse Ox 99% on 2 lpm NC; aa5 10:00 BP 130 / 90; Pulse 69; Resp 16 S; Pulse Ox 99% on 2 lpm NC; aa5 05:19 Body Mass Index 28.19 (81.65 kg, 170.18 cm) al5 05:19 Pain Scale: Adult al5 07:52 Pt asleep aa5 MDM: 05:09 Medical Screening Exam initiated cp 05:50 Differential diagnosis: Nonspecific abd pain, gastritis, pancreatitis, diverticulitis, [place] viral gastroenteritis, gastroenteritis. Data reviewed: vital signs, nurses notes, lab test result(s), EKG, radiologic studies, CT scan, plain films. Consideration of Admission/Observation Patient was admitted/placed on observation. Escalation of care including admission/observation considered. I considered the following discharge prescriptions or medication management in the emergency department Medications were administered in the Emergency Department. See MAR. Independent interpretation of the following test(s) in the Emergency Department EKG: See my EKG interpretation above. Test considered but Not performed: Ultrasound abd us. Historians other than the Patient: pt well informed. Care significantly affected by the following chronic conditions: Diabetes, Hypertension, Obesity, tobacco abuse, pancreatitis. Counseling: I had a detailed discussion with the patient and/or guardian regarding the historical points, exam findings, and any diagnostic results supporting the discharge/admit diagnosis, lab results, radiology results, the need to transfer to another facility, for higher level of care, [facility] does not immediately have the required specialist. 07/02 05:23 Order name: Basic Metabolic Panel; Complete Time: 06:04 cp 07/02 05:23 Order name: CBC with Diff; Complete Time: 05:48 cp 07/02 05:23 Order name: LFT's; Complete Time: 06:04 cp 07/02 05:23 Order name: Magnesium; Complete Time: 06:04 cp 07/02 05:23 Order name: PT-INR; Complete Time: 05:54 cp 07/02 05:23 Order name: Troponin HS; Complete Time: 06:04 cp 07/02 05:23 Order name: Ptt, Activated; Complete Time: 05:54 cp 07/02 05:23 Order name: Lipase; Complete Time: 06:04 cp 07/02 05:23 Order name: Type And Screen cp 07/02 05:27 Order name: ETOH Level; Complete Time: 05:57 cp 07/02 05:27 Order name: UDS cp 07/02 05:27 Order name: Test, Urine cp 07/02 05:27 Order name: Urinalysis w/ reflexes cp 07/02 05:27 Order name: Acetaminophen; Complete Time: 05:54 cp 07/02 07:43 Order name: Hematocrit EDMS 07/02 07:43 Order name: Hemoglobin EDMS 07/02 07:43 Order name: Protime (+INR) EDMS 07/02 07:48 Order name: Glucose, Ancillary Testing EDMS 07/02 10:02 Order name: Hematocrit aa5 07/02 10:02 Order name: Hemoglobin aa5 07/02 11:26 Order name: Lipase EDMS 07/02 11:26 Order name: Urinalysis w/ reflexes EDMS 07/02 11:26 Order name: CBC with Automated Diff EDMS 07/02 11:26 Order name: CBC with Automated Diff EDMS 07/02 11:26 Order name: CBC with Automated Diff EDMS 07/02 11:26 Order name: CBC with Automated Diff EDMS 07/02 11:26 Order name: Comprehensive Metabolic Panel EDMS 07/02 11:26 Order name: Comprehensive Metabolic Panel EDMS 07/02 11:26 Order name: Comprehensive Metabolic Panel EDMS 07/02 11:26 Order name: Comprehensive Metabolic Panel EDMS 07/02 11:26 Order name: Lipid Profile EDMS 07/02 11:26 Order name: Lipid Profile EDMS 07/02 11:26 Order name: PTT, Activated Partial Thromb EDMS 07/02 11:26 Order name: PTT, Activated Partial Thromb EDMS 07/02 11:26 Order name: PTT, Activated Partial Thromb EDMS 07/02 11:26 Order name: PTT, Activated Partial Thromb EDMS 07/02 11:53 Order name: Glucose, Ancillary Testing EDMS 07/02 13:33 Order name: ABO/RH no charge EDMS 07/02 13:58 Order name: Glucose, Ancillary Testing EDMS 07/02 05:23 Order name: XRAY Chest (1 view) cp 07/02 05:23 Order name: CT Abd/Pelvis - IV Contrast Only cp 07/02 05:23 Order name: EKG; Complete Time: 05:24 cp 07/02 05:23 Order name: Cardiac monitoring; Complete Time: 05:52 cp 07/02 05:23 Order name: EKG - Nurse/Tech; Complete Time: 05:52 cp 07/02 05:23 Order name: IV Saline Lock; Complete Time: 05:25 cp 07/02 05:23 Order name: Labs collected and sent; Complete Time: 05:52 cp 07/02 05:23 Order name: O2 Per Protocol; Complete Time: 05:25 cp 07/02 05:23 Order name: O2 Sat Monitoring; Complete Time: 05:25 cp 07/02 05:33 Order name: Misc. Order: redraw of Type n screen needs to be large purple and band pt; sp Complete Time: 05:51 07/02 06:07 Order name: Misc. Order: Type n Screen recollect; Complete Time: 06:34 sp 07/02 06:48 Order name: Labs - recollect needed: recollect T\T\S per Teresa hemolyzed; Complete eb Time: 06:56 EC:12 Rate is 78 beats/min. Rhythm is regular. QRS [place] is Normal. OR interval is normal. QRS [place] interval is normal. QT interval is normal. No Q waves. T waves are Normal. No ST changes noted. Clinical impression: Normal ECG and No evidence of ischemia. Interpreted by me. Reviewed by me. Administered Medications: 06:13 Drug: NS 0.9% IV 1000 ml IV at 1000 ml once; to be given as a bolus over 60 minutes al5 Route: IV; Rate: 1000 ml; Site: left antecubital; 06:34 Follow up: Response: No adverse reaction; IV Status: Infusion continued upon admission al5 06:13 Drug: metoCLOPramide IVP 10 mg IVP once; over 1 to 2 minutes Route: IVP; Site: left al5 antecubital; 06:34 Follow up: Response: No adverse reaction; Nausea is decreased al5 06:13 Drug: Pantoprazole IVP 40 mg IVP once Route: IVP; Site: left antecubital; al5 06:34 Follow up: Response: No adverse reaction al5 06:13 Drug: Pantoprazole IV 8 mg/hr IV at 25 ml/hr continuous; (Standard dilution is 80 mg in al5 250 mL NS) Route: IV; Rate: 25 ml/hr; Site: left antecubital; 06:34 Follow up: Response: No adverse reaction; IV Status: Infusion continued upon admission al5 07:10 Follow up: IV Status: Infusion continued aa5 06:44 Drug: Magnesium Sulfate IVPB 2 grams IVPB once over 2 hrs Route: IVPB; Infused Over: 2 al5 hrs; Site: left hand; 07:44 Follow up: IV Status: Completed infusion; Okay'd by to administer over 1 hr. aa5 10:20 Drug: NS 0.9% IV 1000 ml IV at 100 ml/hr Per protocol Route: IV; Rate: 100 ml/hr; Site: aa left hand; Disposition: 05:50 Co-signature as Attending Physician, Orion Cook MD I agree with the assessment and [place] plan of care. Disposition Summary: 07/02/24 06:00 Hospitalization Ordered Notes: Hospitalization Status: Inpatient Admission [place] Provider: Jennifer Hilario cha [facility] ([facility]patient) [place] Condition: Fair [place] Problem: new [place] Symptoms: have improved [place] Bed/Room Type: Standard [place] Room Assignment: 212(07/02/24 15:33) eb Diagnosis - Acute gastritis [place] - Acute gastritis with bleeding [place] - GI Bleed/ Gastrointestinal hemorrhage, unspecified - upper stable [place] - Tobacco abuse counseling [place] - Tobacco use [place] - Alcohol abuse [place] - Hypomagnesemia [place] Forms: - Medication Reconciliation Form [place] - SBAR form [place] - Leadership Thank You Letter [place] Signatures: Dispatcher [employer] Orion Pepe MD MD cha Pinkerton, Shawna sp Calderon, Audri, RN RN aa5 Orion Trevino PA PA cp Botello, Elizabeth eb Langhorst, Amanda RN RN al5 Corrections: (The following items were deleted from the chart) 05:24 05:24 Abdomen Pelvis W Con+CT.RAD.BRZ ordered. [facility] EDWV 15:33 06:00 [place] eb 07/03 00:20 07/02 05:19 This 43 yrs old Female presents to ER via Unassigned with complaints of cp Nausea/Vomiting, PT STATES SHE IS VOMITING UP BLACK COFFEE GRIND MATTER. cp
--- NOTE | 2024-07-02 06:00 | ER ---
Nurse's Notes [facility] Name: Pamela Richter Age: 43 yrs Sex: Female : 1980 Arrival Date: 07/02/2024 Time: 05:01 Bed 5 Private MD: Diagnosis: Acute gastritis;Acute gastritis with bleeding;GI Bleed/ Gastrointestinal hemorrhage, unspecified-upper stable;Tobacco abuse counseling;Tobacco use;Alcohol abuse;Hypomagnesemia Presentation: 07/02 05:19 Chief complaint: Patient states: c/o n/v, PADILLA, back pain, esophagus pain, chest pain, al5 along with vomiting "black stuff" since 99. hx of gastric ulcers. recently released from facility for pancreatitis. admits to etoh abuse, but patient states she was placed on librium for withdrawal and denies any drinks since being released from the hospital. Coronavirus screen: At this time, the client does not indicate any symptoms associated with coronavirus-19. Ebola Screen: No symptoms or risks identified at this time. Initial Sepsis Screen: Does the patient meet any 2 criteria? No. Patient's initial sepsis screen is negative. Does the patient have a suspected source of infection? No. Patient's initial sepsis screen is negative. Risk Assessment: Do you want to hurt yourself or someone else? Patient reports no desire to harm self or others. Onset of symptoms was July 02, 2024. 05:19 Method Of Arrival: Ambulatory al5 05:19 Acuity: MANDI 3 al5 Triage Assessment: 05:25 General: Appears in no apparent distress. Behavior is cooperative, anxious, restless. al5 Pain: Complains of pain in head, back, chest and abdomen Pain currently is 6 out of 10 on a pain scale. EENT: No signs and/or symptoms were reported regarding the EENT system. Neuro: Level of Consciousness is awake, alert, obeys commands, Oriented to person, place, time, situation. Cardiovascular: Capillary refill < 3 seconds Patient's skin is warm and dry. Respiratory: Airway is patent Respiratory effort is even, unlabored, Respiratory pattern is regular, symmetrical. GI: Abdomen is flat, non-distended, vomit appears black, coffee ground Abd is soft and non tender X 4 quads. Reports lower abdominal pain, upper abdominal pain, nausea, Pain is 6 out of 10 on a pain scale. vomiting, esophagus pain. : No signs and/or symptoms were reported regarding the genitourinary system. Derm: Skin is intact, is healthy with good turgor, Skin is pink, warm \\T\\ dry. normal. Musculoskeletal: No signs and/or symptoms reported regarding the musculoskeletal system. 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 - Infectious Disease History:: Denies. - Social history:: Smoking status: Patient reports the use of cigarette tobacco products, smokes one pack cigarettes per day. Screenin:29 [facility] ED Fall Risk Assessment (Adult) History of falling in the last 3 months, al5 including since admission No falls in past 3 months (0 pts) Confusion or Disorientation No (0 pts) Intoxicated or Sedated No (0 pts) Impaired Gait No (0 pts) Mobility Assist Device Used No (0 pt) Altered Elimination No (0 pt) Score/Fall Risk Level 0 - 2 = Low Risk Oriented to surroundings, Maintained a safe environment, Hourly rounding (assess needs \\T\\ fall precautionary measures) done. Abuse screen: Denies threats or abuse. Denies injuries from another. Nutritional screening: No deficits noted. Tuberculosis screening: No symptoms or risk factors identified. Assessment: 05:29 Reassessment: see triage assessment. al5 06:32 Reassessment: Patient appears in no apparent distress at this time. Patient and/or al5 family updated on plan of care and expected duration. Pain level reassessed. Patient is alert, oriented x 3, equal unlabored respirations, skin warm/dry/pink. nausea decreased. 07:10 General: Appears comfortable, Behavior is calm, cooperative, Feeling better . Reports aa5 she was recently admitted to the hospital for Pancreatitis and was released yesterday, reports she normally drinks ETOH daily but states "haven't had a drink in a few days because I was in the hospital" . Pain: Denies pain. Neuro: Level of Consciousness is alert, obeys commands, drowsy . Oriented to person, place, time, situation, Moves all extremities. Speech is slow, pt states "I'm sleepy" . Cardiovascular: Heart tones S1 S2 present Rhythm is regular. Respiratory: Airway is patent Respiratory effort is even, unlabored, Respiratory pattern is regular, symmetrical. GI: Abdomen is round Bowel sounds present X 4 quads. Abd is soft and non tender X 4 quads. Reports vomiting, coffee ground emesis. Pt states feeling better, currently denies nausea. : No signs and/or symptoms were reported regarding the genitourinary system. EENT: No signs and/or symptoms were reported regarding the EENT system. Derm: Skin is pink, warm \\T\\ dry. Musculoskeletal: Range of motion: intact in all extremities. 07:40 Reassessment: Awaiting admission orders, pt and pt's aware of wait time. . aa5 07:52 Reassessment: Pt sleeping, easy to awaken to verbal stimuli. . 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 TO to do stat hematocrit/hemoglobin and NS at 100mls/hr (see orders). . 10:15 Reassessment: Patient is alert, oriented x 3, equal unlabored respirations, skin aa5 warm/dry/pink. H\\T\\H drawn and sent to lab . 10:18 Reassessment: Pt requesting to speak to DANIELLE Alexandre about admission and results, aa5 provider notified. . 11:15 Reassessment: Pt sleeping. . aa5 Vital Signs: 05:15 BP 137 / 87; Pulse 85; Resp 15; Pulse Ox 97% on R/A; al5 05:19 BP 154 / 89; Pulse 86; Resp 18; Temp 98.3; Pulse Ox 99% on R/A; Weight 81.65 kg; Height al5 5 ft. 7 in. ; Pain 6/10; 05:45 BP 156 / 97; Pulse 78; Resp 16; Pulse Ox 98% on R/A; al5 07:17 BP 150 / 85; Pulse 79; Resp 15; Pulse Ox 93% ; ko1 07:52 Pulse Ox 90% on R/A; aa5 07:53 Pulse Ox 96% on 2 lpm NC; aa5 09:00 BP 129 / 97; Pulse 73; Resp 16 S; Pulse Ox 99% on 2 lpm NC; aa5 10:00 BP 130 / 90; Pulse 69; Resp 16 S; Pulse Ox 99% on 2 lpm NC; aa5 05:19 Body Mass Index 28.19 (81.65 kg, 170.18 cm) al5 05:19 Pain Scale: Adult al5 07:52 Pt asleep aa5 ED Course: 05:03 Patient arrived in ED. jj6 05:09 Orion Trevino PA is PHCP. cp 05:09 Orion Cook MD is Attending Physician. cp 05:19 Paola Lopez, CONOR is Primary Nurse. al5 05:23 Triage completed. al5 05:29 Arm band placed on right wrist. Patient placed in the treatment room, on a stretcher, al5 in view of staff members, on pulse oximetry. 05:29 Patient has correct armband on for positive identification. Bed in low position. Call al5 light in reach. Side rails up X 1. Provided Education on: plan of care. 05:29 No provider procedures requiring assistance completed. Inserted saline lock: 20 gauge al5 in left antecubital area, using aseptic technique. Blood collected. Flushed with 10 mL NS. 05:32 XRAY Chest (1 view) In Process Unspecified. EDMS 05:34 EKG done, by ED staff, reviewed by Orion Cook MD. sa1 05:52 Test, Urine Sent. al5 05:52 Urinalysis w/ reflexes Sent. al5 05:52 UDS Sent. al5 05:52 ETOH Level Sent. al5 05:52 Type And Screen Sent. al5 05:52 Lipase Sent. al5 05:52 Basic Metabolic Panel Sent. al5 05:52 LFT's Sent. al5 05:52 Magnesium Sent. al5 05:52 Troponin HS Sent. al5 05:58 Xiomy Hilario is Hospitalizing Provider. [facility] 05:58 Jennifer Hilario MD is Hospitalizing Provider. [place] 06:32 Inserted saline lock: 22 gauge in left hand, using aseptic technique. Blood collected. al5 Flushed with 10 mL NS. 06:33 Patient admitted, IV remains in place. al5 06:50 CT Abd/Pelvis - IV Contrast Only In Process Unspecified. EDMS 07:10 IV is patent, 20G to L AC and 22G to L hand. aa5 10:00 Warm blanket given. Verbal reassurance given. am7 10:01 Assisted to bedside commode. am7 Administered Medications: 06:13 Drug: NS 0.9% IV 1000 ml IV at 1000 ml once; to be given as a bolus over 60 minutes al5 Route: IV; Rate: 1000 ml; Site: left antecubital; 06:34 Follow up: Response: No adverse reaction; IV Status: Infusion continued upon admission al5 06:13 Drug: metoCLOPramide IVP 10 mg IVP once; over 1 to 2 minutes Route: IVP; Site: left al5 antecubital; 06:34 Follow up: Response: No adverse reaction; Nausea is decreased al5 06:13 Drug: Pantoprazole IVP 40 mg IVP once Route: IVP; Site: left antecubital; al5 06:34 Follow up: Response: No adverse reaction al5 06:13 Drug: Pantoprazole IV 8 mg/hr IV at 25 ml/hr continuous; (Standard dilution is 80 mg in al5 250 mL NS) Route: IV; Rate: 25 ml/hr; Site: left antecubital; 06:34 Follow up: Response: No adverse reaction; IV Status: Infusion continued upon admission al5 07:10 Follow up: IV Status: Infusion continued aa5 06:44 Drug: Magnesium Sulfate IVPB 2 grams IVPB once over 2 hrs Route: IVPB; Infused Over: 2 al5 hrs; Site: left hand; 07:44 Follow up: IV Status: Completed infusion; Vlad'd by to administer over 1 hr. aa5 10:20 Drug: NS 0.9% IV 1000 ml IV at 100 ml/hr Per protocol Route: IV; Rate: 100 ml/hr; Site: aa5 left hand; Medication: 05:29 VIS not applicable for this client. al5 Intake: Outcome: 06:00 Decision to Hospitalize by Provider. [place] 12:00 Admitted to ER Hold. Please see [facility] for further documentation. aa5 12:00 Condition: stable 12:00 Instructed on the need for admit, Demonstrated understanding of instructions, 16:23 Patient left the ED. hb Signatures: Dispatcher [employer] Orion Pepe MD MD cha Calderon, Audri RN RN aa5 Orion Trevino PA PA cp Baxter, Heather RN RN Karolyn Carroll6 Bridgette Sheppard RN RN ko1 Sanjuanita Recinos RN RN me1 Paola Lopez RN RN al5 Sultan Giuliana sa1 Elly Mariee am7 Corrections: (The following items were deleted from the chart) 05:33 05:19 Chief complaint: Patient states: c/o n/v, PADILLA, back pain, esophagus pain, chest al5 pain, along with vomiting "black stuff" since 99 al5 05:33 05:19 Chief complaint: Patient states: c/o n/v, PADILLA, back pain, esophagus pain, chest al5 pain, along with vomiting "black stuff" since 99. hx of gastric ulcers. admits to etoh abuse, but patient states she was placed on librium for withdrawal and denies any drinks since being released from the hospital al5 14:28 11:00 BP 130 / 90; Pulse 69bpm; Resp 19bpm; Pulse Ox 99% 2 lpm Nasal Cannula; [facility] aa5 14:28 12:00 BP 129 / 89; Pulse 78bpm; Resp 21bpm; Pulse Ox 100% 2 lpm; [facility] aa5 14:28 13:00 BP 127 / 69; Pulse 82bpm; Resp 16bpm; Pulse Ox 100% 2 lpm; [facility] aa5 14:28 14:00 BP 124 / 75; Pulse 89bpm; Resp 17bpm; Pulse Ox 99% 2 lpm Nasal Cannula; [facility] aa5
[2024-07-02 06:01] LABS: Albumin 3.2 g/dL (3.4-5.0); Albumin/Globulin Ratio 0.8 (1.1-1.8); Anion Gap 11.5 mEq/L (5.0-15.0); Bilirubin Direct 0.2 mg/dL (0-0.2); Bilirubin Indirect, Calculated 0.2 mg/dL (0.2-0.8); Bilirubin Total 0.4 mg/dL (0.2-1.0); Globulin 3.9 g/dL (2.3-3.5); Magnesium 1.1 mg/dL (1.6-2.4); Potassium 3.5 mEq/L (3.5-5.1); Protein, Total 7.1 g/dL (6.4-8.2); Troponin High Sensitivity 19.4 pg/mL (<58.9)
[2024-07-02 06:05] LABS: Specific Gravity 1.019 (1.005-1.030)
[2024-07-02 06:07] LABS: Specific Gravity 1.019 (1.005-1.030); Urine Bacteria <20 /HPF (<20); Urine Bilirubin NEGATIVE (Negative); Urine Blood Negative (Negative); Urine Clarity Extremely Turbid (Clear); Urine Color Light-Yellow (Yellow); Urine Culture Reflex Order NOT NEEDED; Urine Glucose NEGATIVE (Negative); Urine Ketones 1+ (Negative); Urine Microscopic Reflex YN ORDER UMIC; Urine Mucus Slight /HPF (None Seen); Urine Nitrite NEGATIVE (Negative); Urine Protein NEGATIVE (Negative); Urine RBC <5 /HPF (None Seen); Urine Urobilinogen Normal (Normal); Urine WBC <5 /HPF (<5)
[2024-07-02 06:14] LABS: Barbiturates NEGATIVE (NEGATIVE); Benzodiazepines POSITIVE (NEGATIVE); Cocaine NEGATIVE (NEGATIVE); METHAMPHETAM NEGATIVE (NEGATIVE); Methadone NEGATIVE (NEGATIVE); Opiates POSITIVE (NEGATIVE); Phencyclidine NEGATIVE (NEGATIVE); THC Cannibis NEGATIVE (NEGATIVE)
[2024-07-02] MEDS ORDERED: Magnesium Sulfate 2gm IVPB 2 G/50 ML BAG IV ONE ×2 (06:42→15:28)
--- NOTE | 2024-07-02 07:18 | RAD REPORT ---
EXAMINATION: CT ABDOMEN AND PELVIS WITH CONTRAST CLINICAL INDICATION: Abdominal pain TECHNIQUE: CT abdomen and pelvis was performed, after the administration of 100 cc Isovue-300.. Sagit bill and coronal reconstructions were obtained. One or more of the following dose reduction techniques were used: Automated exposure control, adjustment of the mA and kV according to patient si ze, and iterative reconstruction. Unless otherwise specified, incidental findings do not require dedicated imaging follow-up. [id number]. Oral contrast was not given which limits evaluation of bowel and appendix. COMPARISON: .June 27, 2024 and June 2022 FINDINGS: Stable 2.3 cm right lower lobe opacity.. Left upper quadrant varices Liver, spleen, adrenals and kidneys appear unremarkable 5 cm pancreatic pseudocyst pancreatic tail unchanged. Portion of the wall is calcified. Formation mauro rounding the pancreas has mostly resolved. Pancreatic. Normal appendix. No adnexal mass No evidence of diverticulitis. Minimal pleural effusions Marked thickening wall of the distal esophagus : IMPRESSION: Stable 5 cm pancreatic pseudocyst Peripancreatic stranding has mostly resolved the prior exam indicative of improving inflammation.. Marked thickening of the wall of the distal esophagus probably inflammation 2.3 cm right lower lobe opacity is unchanged over 2 years. On prior enhanced CT scan is had the appea lee ann of an AVM.
--- NOTE | 2024-07-02 07:23 | RAD REPORT ---
PROCEDURE: R CHEST 1 VIEW HISTORY: omiting COMPARISON: None FINDINGS: The heart appears unremarkable. The lungs are clear there is no alveolar consolidation, effusion or p neumothorax. There are no acute bony or soft tissue abnormalities. IMPRESSION: No acute cardiopulmonary process. Electronically signed by: Jos Hameed MD 07/02/2024 07:16 AM [facility] Due to temporary technical issues with the PACS/TrendBent reporting system, reports are being mekhi d by the in-house radiologist without review as a courtesy to ensure prompt reporting. The interpreting radiologist is fully responsible for the content of the report. Transcribed Date/Time: 07/02/2024 7:23 AM
[2024-07-02 10:22] LABS: Hematocrit 36.6 % (36.0-45.0); Hemoglobin 12.4 g/dL (12.0-15.0)
[2024-07-02] MEDS ORDERED: ONDANSETRON 4 MG/2 ML VIAL IV PRN (11:22)
[2024-07-02] MEDS ORDERED: ALPRAZOLAM 0.25 MG TABLET PO PRN (11:22)
[2024-07-02] MEDS ORDERED: MORPHINE 2 MG/ML SYR IV PRN (11:24)
[2024-07-02] MEDS ORDERED: D50W 25 GM/50 ML SYRINGE IV ONE (11:59)
[2024-07-02] MEDS: NA CHLORIDE 0.9% 1,000 ML IV SCH (12:00)
[2024-07-02] MEDS: D50W 25 GM/50 ML SYRINGE IV ONE (12:06)
[2024-07-02 12:22] VITALS: BMI 32.1
[2024-07-02] MEDS ORDERED: chlordiazePOXIDE HCl 25 MG CAP ONE (12:44)
[2024-07-02] MEDS: chlordiazePOXIDE HCl 25 MG CAP PO SCH (12:45)
--- NOTE | 2024-07-02 14:37 | P.HP ---
Certification for Inpatient Patient admitted to: Observation With expected LOS: <2 Midnights Patient will require the following post-hospital care: None Practitioner: I am a practitioner with admitting privileges, knowledge of patient current condition, hospital course, and medical plan of care. Services: Services provided to patient in accordance with Admission requirements found in Title 42 Section 412.3 of the Code of Federal Regulations Patient History Date of Service: 07/02/24 Reason for admission: Intractable nausea vomiting History of Present Illness: Patient is a 43-year-old female comes to the hospital with intractable nausea vomiting. She states she woke up around 1:00 in the morning and started having nausea and vomiting. He had she was feeling the emesis was darkish color, and it was persistent so she came into the ER. In the emergency room patient had multiple imaging studies and lab work with no significant abnormalities. H owever, she was still admitted to the hospital for observation for her nausea and vomiting. She is feeling much better. Her hemoglobin is stable. Will go ahead and start her on diet and we should be able to discharge her home later today. At this time, we will continue with observation admission. Allergies No Known Allergies Allergy (Unverified 03/12/20 00:38) Home Medications: Atorvastatin Calcium [Lipitor] 40 mg PO DAILY 04/25/24 Insulin Glargine,Hum.rec.anlog [Basaglar Kwikpen U-100] 50 units SQ DAILY 06/28/24 Lamotrigine [Lamictal] 12.5 mg PO DAILY 06/28/24 Venlafaxine HCl [Venlafaxine HCl ER] 1 tab PO DAILY 06/28/24 Hydrocodone 10/APAP 325 [[place] 10/325] 1 tab PO Q6H PRN #30 tab 06/30/24 Lipase/Protease/Amylase [Radha Montemayor 12,000 Unit Capsule] 1 each PO AC #90 tab 06/30/24 chlordiazePOXIDE HCl [Chlordiazepoxide HCl] 10 mg PO Q8H #60 cap 06/30/24 - Past Medical/Surgical History Has patient received pneumonia vaccine in the past: No Diabetic: Yes -: Diabetes mellitus type 1 -: Hypertension -: Narcotic drug abuse -: Alcohol abuse -: Tobacco abuse -: Anxiety -: none Psychosocial/ Personal History: Patient lives with her boyfriend and is currently unemployed - Family History Father Family History: Reviewed- Non-Contributory - Social History Smoking Status: Heavy Tobacco smoker (>10 cigarettes/day) Alcohol use: Yes CD- Drugs: No Review of Systems 10-point ROS is otherwise unremarkable Physical Examination - Vital Signs Temperature: 97.5 F Blood Pressure: 129/89 Pulse: 72 Respirations: 16 Pulse Ox (%): 100 - Physical Exam General: Alert, In no apparent distress, Oriented x3 HEENT: Atraumatic, PERRLA, Mucous membr. moist/pink, EOMI, Sclerae nonicteric Neck: Supple, 2+ carotid pulse no bruit, No LAD, Without JVD or thyroid abnormality Respiratory: Clear to auscultation bilaterally, Normal air movement Cardiovascular: Regular rate/rhythm, Normal S1 S2 Gastrointestinal: Normal bowel sounds, Soft and benign, Non-distended, W/out succussion splash, No tenderness Musculoskeletal: No clubbing, No swelling, No tenderness Integumentary: No rashes Neurological: Normal gait, Normal speech, Normal strength at 5/5 x4 extr, Normal tone, Sensation intact, Cranial nerves 3-12 intact, Normal affect Lymphatics: No axilla or inguinal lymphadenopathy - Studies Laboratory Data (last 24 hrs) 07/02/24 07/02/24 07/02/24 10:15 05:20 05:20 WBC 5.30 Hgb 12.4 12.6 Hct 36.6 37.0 Plt Count 229 PT 11.7 INR 1.12 APTT 30.9 Sodium Potassium BUN Creatinine Glucose Magnesium Total Bilirubin AST ALT Alkaline Phosphatase Lipase 07/02/24 05:20 WBC Hgb Hct Plt Count PT INR APTT Sodium 136 Potassium 3.5 BUN 10 Creatinine 0.94 Glucose 90 Magnesium 1.1 L Total Bilirubin 0.4 AST 109 H ALT 90 H Alkaline Phosphatase 198 H Lipase 16 Assessment & Plan - Problems (Diagnosis) (1) Intractable nausea and vomiting Current Visit: Yes Status: Acute (2) History of alcohol abuse Current Visit: Yes Status: Acute (3) History of pancreatitis Current Visit: Yes Status: Acute - Plan Plan: 1. Patient presented with intractable nausea vomiting. Her symptoms have improved. I am going to go ahead and feed her and if she tolerates her diet plan is to discharge home with outpatient follow-up. Will go ahead and call in some antiemetics for her as well. She will need GI follow-up for evaluation for pancreatitis. She also needs to keep refraining from alcohol use. Patient was started on a Protonix drip we will go ahead and discontinue this. Change her on Protonix daily. Send off prescriptions with outpatient follow-up as recommended above. At this time patient should be stable for discharge if she tolerates her diet. Discharge Plan: Home Plan to discharge in: 24 Hours - Advance Directives Does patient have a Living Will: No Does patient have a Durable POA for Healthcare: No - Code Status/Comfort Care Code Status Assessed: Yes Code Status: Full Code Critical Care: No Time Spent Managing PTS Care (In Minutes): 45
[2024-07-02] MEDS ORDERED: PANTOPRAZOLE 40MG TABLET PO ONE (15:28)
[2024-07-02] MEDS: Magnesium Sulfate 2gm IVPB 2 G/50 ML BAG IV SCH (15:32)
[2024-07-02] MEDS: PANTOPRAZOLE 40MG TABLET PO SCH (15:50)
[2024-07-02] MEDS ORDERED: HYDROCODONE/APAP 10/325 TAB PO PRN (18:53)
[2024-07-02 19:18] VITALS: O2SAT 99
[2024-07-02] MEDS: INSULIN GLARGINE 100 UNIT/ML SQ ONE (20:27)
[2024-07-02] MEDS: INSULIN REGULAR (HUMAN) 100 UNIT/ML SQ SCH (20:36)
[2024-07-03 06:17] LABS: Absolute Eosinophils 0.1 K/uL (0-0.5); Absolute Lymphocytes (CBC) 1.1 K/uL (0.7-4.9); Absolute Monocytes 0.4 K/uL (0.1-1.3); Absolute Neutrophil 2.3 K/uL (1.8-8.0); Basophils % 0.5 % (0-1.3); Eosinophils % 1.4 % (0-4.4); Hematocrit 38.7 % (36.0-45.0); Hemoglobin 12.7 g/dL (12.0-15.0); Lymphocytes % 29.5 % (15.3-44.8); MCH 29.6 pg (27.0-35.0); MCV 89.8 fL (80-100); MPV 9.5 fL (7.6-11.3); Monocytes % 9.3 % (3.3-12.3); Neutrophils % 59.3 % (41.7-73.7); Platelets 206 thou/uL (152-406); RBC Red Blood Cell Count 4.31 M/uL (3.86-4.86); Red Cell Distribution Width 13.6 % (12.1-15.2)
[2024-07-03 06:55] LABS: Magnesium 1.6 mg/dL (1.6-2.4)
[2024-07-03 07:01] LABS: Albumin/Globulin Ratio 0.9 (1.1-1.8); Anion Gap 9.4 mEq/L (5.0-15.0); Bilirubin Total 0.3 mg/dL (0.2-1.0); Globulin 3.3 g/dL (2.3-3.5); Potassium 3.4 mEq/L (3.5-5.1); Protein, Total 6.3 g/dL (6.4-8.2)
[2024-07-03] MEDS ORDERED: D10W 125 ML IV PRN (08:45)
[2024-07-03] MEDS ORDERED: GLUCAGON 1 MG/VIAL IM PRN (08:45)
[2024-07-03 08:53] VITALS: BP 143/70; TEMP 98.2
[2024-07-03] MEDS: MAGNESIUM SULFATE 1 gm IVPB 1 GM/100 ML BAG IV ONE (09:01)
[2024-07-03] MEDS: POTASSIUM CL SA 10 MEQ TAB PO ONE (09:01)
[2024-07-03] MEDS: INSULIN GLARGINE 100 UNIT/ML SQ SCH (09:02)
[2024-07-03] MEDS: VENLAFAXINE HCL XR 37.5MG CAP PO SCH (09:02)
--- NOTE | 2024-07-03 11:16 | P.DS ---
Admission Date: 07/02/24 Discharge Date: 07/03/24 Disposition: ROUTINE DISCHARGE Discharge Condition: GOOD Reason for Admission: Intractable nausea vomiting Brief History of Present Illness: Patient is a 43-year-old female comes to the hospital with intractable nausea vomiting. She states she woke up around 1:00 in the morning and started having nausea and vomiting. He had she was feeling the emesis was darkish color, and it was persistent so she came into the ER. In the emergency room patient had multiple imaging studies and lab work with no significant abnormalities. However, she was still admitted to the hospital for observation for her nausea and vomiting. She is feeling much better. Her hemoglobin is stable. Will go ahead and start her on diet and we should be able to discharge her home later today. At this time, we will continue with observation admission. - Physical Exam General: Alert, In no apparent distress, Oriented x3 HEENT: Atraumatic, PERRLA, Mucous membr. moist/pink, EOMI, Sclerae nonicteric Neck: Supple, 2+ carotid pulse no bruit, No LAD, Without JVD or thyroid abnormality Respiratory: Clear to auscultation bilaterally, Normal air movement Cardiovascular: Regular rate/rhythm, Normal S1 S2 Gastrointestinal: Normal bowel sounds, Soft and benign, Non-distended, W/out succussion splash, No tenderness Musculoskeletal: No clubbing, No swelling, No tenderness Integumentary: No rashes Neurological: Normal gait, Normal speech, Normal strength at 5/5 x4 extr, Normal tone, Sensation intact, Cranial nerves 3-12 intact, Normal affect Lymphatics: No axilla or inguinal lymphadenopathy Hospital Course: 43-year-old female comes to the hospital with intractable nausea vomiting. She states she woke up around 1:00 in the morning and started having nausea and vomiting. He had she was feeling the emesis was darkish color, and it was persistent so she came into the ER. In the emergency room patient had multiple imaging studies and lab work with no significant abnormalities. However, she was still admitted to the hospital for observation for her nausea and vomiting. She is feeling much better. Her hemoglobin is stable. Tolerating diet, stable to discharge home on PPI, as needed antiemetics, Librium Assessment Intractable nausea and vomiting improved History of alcohol abuse, discharged home on Librium Gastritis, DC home on PPI History of pancreatitis, tolerating diet . GOAL: Clear understanding of disease process INSTRUCTIONS: Physician Discharge Instructions: -Follow-up with PCP in 1 to 2 weeks -Please call Dr. Hilario at [phone] if any questions regarding hospital stay -Please call nursing station at [phone] if any nursing or medication questions -Return to the emergency room if symptoms worsen Diet: ADA, low sodium Activity: Fall precaution Vital Signs/Physical Exam: Temp Pulse Resp BP Pulse Ox 98.2 F 92 H 18 143/70 H 95 07/03/24 08:00 07/03/24 08:00 07/03/24 08:00 07/03/24 08:00 07/03/24 08:00 Laboratory Data at Discharge: WBC 3.90 thou/uL (4.3-10.9) L 07/03/24 05:56 Hgb 12.7 g/dL (12.0-15.0) 07/03/24 05:56 Hct 38.7 % (36.0-45.0) 07/03/24 05:56 Plt Count 206 thou/uL (152-406) 07/03/24 05:56 PT Cancelled 07/02/24 07:40 INR Cancelled 07/02/24 07:40 APTT 31.9 SECONDS (24.3-36.9) 07/03/24 06:14 Sodium 139 mEq/L (136-145) 07/03/24 06:14 Potassium 3.4 mEq/L (3.5-5.1) L 07/03/24 06:14 BUN 9 mg/dL (7-18) 07/03/24 06:14 Creatinine 0.84 mg/dL (0.55-1.02) 07/03/24 06:14 Glucose 143 mg/dL (74-106) H 07/03/24 06:14 Magnesium 1.6 mg/dL (1.6-2.4) 07/03/24 06:14 Total Bilirubin 0.3 mg/dL (0.2-1.0) 07/03/24 06:14 AST 50 U/L (15-37) H 07/03/24 06:14 ALT 59 U/L (13-56) H 07/03/24 06:14 Alkaline Phosphatase 172 U/L (45-117) H 07/03/24 06:14 Triglycerides 82 mg/dL (<150) 07/03/24 06:14 Cholesterol 147 mg/dL (<200) 07/03/24 06:14 HDL Cholesterol 66 mg/dL (40-60) H 07/03/24 06:14 Cholesterol/HDL Ratio 2.23 07/03/24 06:14 Lipase 25 U/L (13-75) 07/03/24 06:14 Home Medications: Atorvastatin Calcium [Lipitor] 40 mg PO DAILY 04/25/24 Insulin Glargine,Hum.rec.anlog [Basaglar Kwikpen U-100] 50 units SQ DAILY 06/28/24 Lamotrigine [Lamictal] 12.5 mg PO DAILY 06/28/24 Venlafaxine HCl [Venlafaxine HCl ER] 1 tab PO DAILY 06/28/24 Hydrocodone 10/APAP 325 [[place] 10/325*] 1 tab PO Q6H PRN #30 tab 06/30/24 Lipase/Protease/Amylase [Radha Montemayor 12,000 Unit Capsule] 1 each PO AC #90 tab 06/30/24 chlordiazePOXIDE HCl [Chlordiazepoxide HCl] 10 mg PO Q8H #60 cap 06/30/24 Chlordiazepoxide HCl [Librium] 10 mg PO TID 07/02/24 Pantoprazole [Protonix Tab] 40 mg PO DAILY #30 tab 07/02/24 Ondansetron [Zofran] 4 mg PO Q6H PRN #30 tab 07/03/24 New Medications: Pantoprazole [Protonix Tab] 40 mg PO DAILY #30 tab Ondansetron [Zofran] 4 mg PO Q6H PRN #30 tab PRN Reason: Nausea / Vomiting Physician Discharge Instructions: -DC IV and DC home -Follow-up with PCP in 1 to 2 weeks -Follow-up with Patient Biller in 1 to 2 weeks -Please call Dr. Hilario at [phone] if any questions regarding hospital stay -Please call nursing station at [phone] if any nursing or medication questions -Return to the emergency room if symptoms worsen Diet: low fat Activity: Fall precautions Followup: Gill Barrientos NP [Primary Care Provider] -
== END 2024-07-03 11:36 | disposition home or self-care (01) ==
LOC: ER 05:01 → INTOOBSV 11:21 → ERHOLD 11:21 → 2ND 16:10
PROVIDERS: ADMIT Hospitalist; ATTEND Hospitalist
DX: R11.2 Nausea with vomiting, unspecified (principal); F10.10 Alcohol abuse, uncomplicated; F19.10 Other psychoactive substance abuse, uncomplicated; K85.90 Acute pancreatitis without necrosis or infection, unspecified; I10 Essential (primary) hypertension; E10.9 Type 1 diabetes mellitus without complications; Z71.6 Tobacco abuse counseling
CPT/HCPCS: 36415; 71045; 74177; 80048; 80053; 80061; 80076; 80143; 80307; 81001; 81025; 82077; 82947; 83690; 83735; 84484; 85014; 85018; 85025; 85610; 85730; 86850; 86900; 86901; 99285; G0378; J2470; J2765; J3475; J7030; J7050; Q9967

== ENCOUNTER 2024-08-30 11:52 | Emergency (ER) | payer MEDICARE ==
[2024-08-30] MEDS ORDERED: LORazepam 2 MG/ML VIAL ONE (12:33)
[2024-08-30] MEDS ORDERED: DIPHENHYDRAMINE 50 MG/ML VIAL ONE (12:33)
[2024-08-30] MEDS ORDERED: METOCLOPRAMIDE 10 MG/2mL INJ ONE (12:33)
[2024-08-30] MEDS ORDERED: NA CHLORIDE 0.9% 1,000 ML ONE (12:33)
[2024-08-30 12:41] LABS: Urine Bilirubin NEGATIVE (Negative); Urine Blood Negative (Negative); Urine Clarity Clear (Clear); Urine Color Light-Yellow (Yellow); Urine Glucose 4+ (Over) (Negative); Urine Ketones TRACE (Negative); Urine Microscopic Reflex YN NO UMIC; Urine Nitrite NEGATIVE (Negative); Urine Protein NEGATIVE (Negative); Urine Urobilinogen Normal (Normal)
[2024-08-30 12:45] LABS: Absolute Lymphocytes (CBC) 1.3 K/uL (0.7-4.9); Absolute Monocytes 0.4 K/uL (0.1-1.3); Absolute Neutrophil 5.6 K/uL (1.8-8.0); Basophils % 0.6 % (0-1.3); Eosinophils % 0.4 % (0-4.4); Hematocrit 42.2 % (36.0-45.0); Hemoglobin 14.4 g/dL (12.0-15.0); Lymphocytes % 17.6 % (15.3-44.8); MCH 30.4 pg (27.0-35.0); MCHC 34.2 g/dL (32.0-36.0); MCV 88.9 fL (80-100); MPV 9.3 fL (7.6-11.3); Monocytes % 4.9 % (3.3-12.3); Neutrophils % 76.5 % (41.7-73.7); Nucleated Red Blood Cells % 0.1 % (0-0); Platelets 302 thou/uL (152-406); RBC Red Blood Cell Count 4.74 M/uL (3.86-4.86); Red Cell Distribution Width 14.9 % (12.1-15.2)
[2024-08-30 12:54] LABS: Anion Gap 13.3 mEq/L (5.0-15.0); BETA HYDROXYBUTYRATE 0.15 mmol/L (0.02-0.27); Bilirubin Total 0.7 mg/dL (0.2-1.0); Globulin 3.9 g/dL (2.3-3.5); Potassium 4.3 mEq/L (3.5-5.1); Protein, Total 7.9 g/dL (6.4-8.2)
--- NOTE | 2024-08-30 13:43 | ER ---
Nurse's Notes [facility] Name: Pamela Richter Age: 44 yrs Sex: Female : 1980 Arrival Date: 08/30/2024 Time: 11:52 Bed 16 Private MD: Diagnosis: Nausea with vomiting, unspecified;Hyperglycemia, unspecified Presentation: 08/30 12:14 Chief complaint: Patient states: feels extremely nauseated , also complains of iw shakiness, has increased her alcohol intake recently. Coronavirus screen: At this time, the client does not indicate any symptoms associated with coronavirus-19. Ebola Screen: No symptoms or risks identified at this time. Initial Sepsis Screen: Does the patient meet any 2 criteria? No. Patient's initial sepsis screen is negative. Does the patient have a suspected source of infection? No. Patient's initial sepsis screen is negative. Risk Assessment: Do you want to hurt yourself or someone else? Patient reports no desire to harm self or others. Onset of symptoms was August 30, 2024. 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 - Infectious Disease History:: Denies. - Social history:: Smoking status: Patient reports the use of cigarette tobacco products, smokes one pack cigarettes per day. Screenin:50 [facility] ED Fall Risk Assessment (Adult) History of falling in the last 3 months, jl7 including since admission No falls in past 3 months (0 pts) Confusion or Disorientation No (0 pts) Intoxicated or Sedated No (0 pts) Impaired Gait No (0 pts) Mobility Assist Device Used No (0 pt) Altered Elimination No (0 pt) Score/Fall Risk Level 0 - 2 = Low Risk Oriented to surroundings, Maintained a safe environment. Abuse screen: Denies threats or abuse. Denies injuries from another. Nutritional screening: No deficits noted. Tuberculosis screening: No symptoms or risk factors identified. Assessment: 12:30 General: Appears in no apparent distress. uncomfortable, Behavior is calm, cooperative, jl7 appropriate for age. Pain: Denies pain. Neuro: Lynn Agitation-Sedation Scale (RASS): 0 - Alert and Calm Level of Consciousness is awake, alert, obeys commands, Oriented to person, place, time, situation. Cardiovascular: Patient's skin is warm and dry. Respiratory: Airway is patent Respiratory effort is even, unlabored, Respiratory pattern is regular, symmetrical. GI: Abdomen is non-distended, Reports nausea. Derm: Skin is pink, warm \T\ dry. 13:30 Reassessment: Patient appears in no apparent distress at this time. Patient and/or jl7 family updated on plan of care and expected duration. Pain level reassessed. Patient is alert, oriented x 3, equal unlabored respirations, skin warm/dry/pink. Patient states symptoms have improved. Vital Signs: 12:14 BP 173 / 91; Pulse 116; Resp 19; Temp 98.2; Pulse Ox 99% on R/A; Weight 86.18 kg; iw Height 5 ft. 7 in. ; 12:50 BP 147 / 96; Pulse 91; Resp 15; Pulse Ox 98% ; jl7 14:25 BP 137 / 85; Pulse 86; Resp 15; Pulse Ox 98% ; jl7 12:14 Body Mass Index 29.76 (86.18 kg, 170.18 cm) iw ED Course: 11:55 Patient arrived in ED. al6 12:04 Greg Gong MD is Attending Physician. ec2 12:16 Triage completed. iw 12:20 Arm band placed on. iw 12:26 Rylee Cisneros, RN is Primary Nurse. jl7 12:29 CBC with Diff Sent. bc6 12:29 CMP Sent. bc6 12:29 Lipase Sent. bc6 12:29 Initial lab(s) drawn, by nc, sent to lab. Inserted saline lock: 20 gauge in left bc6 antecubital area, using aseptic technique. Blood collected. Flushed with 10 mL NS. 12:50 Patient has correct armband on for positive identification. Bed in low position. Call jl7 light in reach. Side rails up X 1. Provided Education on: use of call russo. Pulse ox on. NIBP on. 13:43 Greg Gong MD is Referral Physician. ec2 13:43 Referral Physician role handed off by Greg Gong MD ec2 14:25 No provider procedures requiring assistance completed. IV discontinued, intact, jl7 bleeding controlled, No redness/swelling at site. Pressure dressing applied. Administered Medications: 12:50 Drug: NS 0.9% IV 1000 ml IV at 1 bolus Per protocol; to be given as a bolus over 60 jl7 minutes Route: IV; Rate: 1 bolus; Site: left antecubital; 14:00 Follow up: Response: No adverse reaction; IV Status: Completed infusion; IV Intake: jl7 700ml 12:51 Drug: metoCLOPramide IVP 10 mg IVP once; over 1 to 2 minutes Route: IVP; Site: left jl7 antecubital; 13:15 Follow up: Response: No adverse reaction; Marked relief of symptoms jl7 12:51 Drug: diphenhydrAMINE IVP 25 mg IVP once Route: IVP; Site: left antecubital; jl7 13:00 Follow up: Response: No adverse reaction jl7 12:51 Drug: Ativan IVP 1 mg IVP once Route: IVP; Site: left antecubital; jl7 13:15 Follow up: Response: No adverse reaction; Marked relief of symptoms jl7 Medication: 12:50 VIS not applicable for this client. jl7 Intake: 14:00 IV: 700ml; Total: 700ml. jl7 Outcome: 13:43 Discharge ordered by . ec2 14:25 Discharged to home ambulatory, jl7 14:25 Condition: stable 14:25 Discharge instructions given to patient, Instructed on discharge instructions, follow up and referral plans. medication usage, Demonstrated understanding of instructions, follow-up care, medications, Prescriptions given X 1, 14:26 Patient left the ED. jl7 Signatures: Santa Marcus RN RN iw Rylee Cisneros RN RN jl7 Itzel Child bc6 Greg Gong MD MD ec2 Carley Quiles al6 Corrections: (The following items were deleted from the chart) 12:52 12:50 Client placed on continuous cardiac and pulse oximetry monitoring. NIBP jl7 monitoring applied. traffic monitor specialist on. jl7
--- NOTE | 2024-08-30 13:43 | EDPHYS ---
Physician Documentation [facility] Name: Pamela Richter Age: 44 yrs Sex: Female : 1980 Arrival Date: 08/30/2024 Time: 11:52 Bed 16 Private MD: ED Physician Greg Gong HPI: 08/30 13:44 This 44 yrs old Female presents to ER via Ambulatory with complaints of ec2 Nausea. 13:44 Patient arrives today for evaluation of nausea and vomiting. Patient reports history of ec2 alcoholism, drinks multiple alcoholic beverages a day, last alcohol drink was this morning. Patient reports some nausea and vomiting and upper abdominal pain. Reports history of diabetes as well. No urinary complaints.. 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 - Infectious Disease History:: Denies. - Social history:: Smoking status: Patient reports the use of cigarette tobacco products, smokes one pack cigarettes per day. ROS: 13:44 Constitutional: as per hpi ec2 Exam: 13:44 Constitutional: GEN: NAD Head: atraumatic Eyes: EOMI Ears: External ears are ec2 normal. CV: regular rate LUNGS: no respiratory distress ABD: non-distended, soft, minimally tender in the upper abdomen, no guarding or rigid SKIN: no evidence of rashes MSK: no evidence of trauma Vital Signs: 12:14 BP 173 / 91; Pulse 116; Resp 19; Temp 98.2; Pulse Ox 99% on R/A; Weight 86.18 kg; iw Height 5 ft. 7 in. ; 12:50 BP 147 / 96; Pulse 91; Resp 15; Pulse Ox 98% ; jl7 14:25 BP 137 / 85; Pulse 86; Resp 15; Pulse Ox 98% ; jl7 12:14 Body Mass Index 29.76 (86.18 kg, 170.18 cm) iw MDM: 12:04 Medical Screening Exam initiated ec2 13:45 Data reviewed: vital signs, nurses notes. ED course: Patient arrives today for nausea ec2 and vomiting along with upper abdominal pain. Examination yields well-appearing nontoxic dividual's otherwise in no acute distress. Obtain lab work which showed reassuring blood counts, within normal ranges beta hydroxybutyric acid, normal ranges anion gap, trace ketones in the urine present. Slight hyperglycemia noted on metabolic profile. Patient reports improvement in symptoms after medications. Will discharge to home, suspect alcoholic gastritis. Return precautions given.. 08/30 12:14 Order name: CBC with Diff; Complete Time: 13:07 ec2 08/30 12:14 Order name: CMP; Complete Time: 13:07 ec2 08/30 12:14 Order name: Lipase; Complete Time: 13:07 ec2 08/30 12:14 Order name: Test, Urine; Complete Time: 13: ec2 08/30 12:14 Order name: Urinalysis w/ reflexes; Complete Time: 13: ec2 08/30 12:14 Order name: BHB; Complete Time: 13: ec2 08/30 12:17 Order name: Glucose, Ancillary Testing; Complete Time: 13:07 EDMS 08/30 12:17 Order name: ETOH Level; Complete Time: 13:34 ec2 08/30 12:14 Order name: IV Saline Lock; Complete Time: 12:29 ec2 08/30 12:14 Order name: Labs collected and sent; Complete Time: 12:29 ec2 Administered Medications: 12:50 Drug: NS 0.9% IV 1000 ml IV at 1 bolus Per protocol; to be given as a bolus over 60 jl7 minutes Route: IV; Rate: 1 bolus; Site: left antecubital; 14:00 Follow up: Response: No adverse reaction; IV Status: Completed infusion; IV Intake: jl7 700ml 12:51 Drug: metoCLOPramide IVP 10 mg IVP once; over 1 to 2 minutes Route: IVP; Site: left jl7 antecubital; 13:15 Follow up: Response: No adverse reaction; Marked relief of symptoms jl7 12:51 Drug: diphenhydrAMINE IVP 25 mg IVP once Route: IVP; Site: left antecubital; jl7 13:00 Follow up: Response: No adverse reaction jl7 12:51 Drug: Ativan IVP 1 mg IVP once Route: IVP; Site: left antecubital; jl7 13:15 Follow up: Response: No adverse reaction; Marked relief of symptoms jl7 Disposition Summary: 08/30/24 13:43 Discharge Ordered Notes: Location: Home ec2 Condition: Stable ec2 Diagnosis - Nausea with vomiting, unspecified ec2 - Hyperglycemia, unspecified ec2 Followup: ec2 - With: Private Physician - When: - Reason: Recheck today's complaints Discharge Instructions: - Discharge Summary Sheet ec2 - Nausea and Vomiting, Adult ec2 Forms: - Medication Reconciliation Form ec2 - Antibiotic Education ec2 - Prescription Opioid Use ec2 - Patient Portal Instructions ec2 - Leadership Thank You Letter ec2 Prescriptions: - Reglan 10 mg Oral Tablet - take 1 tablet ORAL route every 6 hours take 30 minutes before meals and at ec2 bedtime; 20 tablet; Refills: 0, Product Selection Permitted Signatures: Dispatcher [employer] Santa Patel RN RN iw Rylee Cisneros RN RN jl7 Greg Gong MD MD ec2 Corrections: (The following items were deleted from the chart) 12:14 12:14 CBC+H.LAB.BRZ ordered. EDMS EDMS 12:14 12:14 COMPREHENSIVE METABOLIC PANEL+C.LAB.BRZ ordered. EDMS EDMS 12:14 12:14 LIPASE+C.LAB.BRZ ordered. EDMS EDMS 12:14 12:14 Test, Urine+UC.LAB.BRZ ordered. EDMS EDMS 12:14 12:14 Urinalysis+U.LAB.BRZ ordered. EDMS EDMS 12:14 12:14 BETA HYDROXYBUTYRATE+C.LAB.BRZ ordered. EDMS EDMS 12:17 12:17 ETHANOL+C.LAB.BRZ ordered. EDMS EDMS
[2024-08-30 14:51] VITALS: TEMP 98.2
[2024-08-30 14:52] VITALS: O2SAT 98
[2024-08-30 14:53] VITALS: BP 137/85
== END 2024-08-30 14:26 | disposition home or self-care (01) ==
LOC: ER 11:52
DX: E11.65 Type 2 diabetes mellitus with hyperglycemia (principal); F10.20 Alcohol dependence, uncomplicated; F17.210 Nicotine dependence, cigarettes, uncomplicated
CPT/HCPCS: 36415; 80053; 81003; 81025; 82010; 82077; 82947; 83690; 85025; 96361; 96374; 96375; 99284; J1200; J2765; J7030

== ENCOUNTER 2025-03-02 14:10 | Emergency (ER) | payer MEDICARE ==
[2025-03-02] MEDS ORDERED: NA CHLORIDE 0.9% 1,000 ML ONE ×2 (15:42→17:13)
[2025-03-02 15:43] LABS: Urine Microscopic Reflex YN NO UMIC
[2025-03-02] MEDS ORDERED: INSULIN REGULAR (HUMAN) 100 UNIT/ML ONE ×2 (15:43→17:11)
[2025-03-02 15:52] LABS: METHAMPHETAM POSITIVE (NEGATIVE); THC Cannibis NEGATIVE (NEGATIVE)
[2025-03-02 15:55] LABS: Absolute Lymphocytes (CBC) 1.7 K/uL (0.7-4.9); Hematocrit 42.5 % (36.0-45.0); Hemoglobin 14.5 g/dL (12.0-15.0); MCH 29.4 pg (27.0-35.0); MCHC 34.1 g/dL (32.0-36.0); MCV 86.2 fL (80-100); MPV 9.9 fL (7.6-11.3); Nucleated RBC Absolute Count 0.0 (0-0); Nucleated Red Blood Cells % 0.0 % (0-0); RBC Red Blood Cell Count 4.93 M/uL (3.86-4.86); White Blood Count 7.10 thou/uL (4.3-10.9)
[2025-03-02 16:04] LABS: PT Prothrombin Time 12.6 SECONDS (10-13.0); Protime INR 1.12
[2025-03-02 16:28] LABS: ALT/SGPT 26 U/L (13-56); AST/SGOT 17 U/L (15-37); Albumin 3.8 g/dL (3.4-5.0); Albumin/Globulin Ratio 1.0 (1.1-1.8); Alkaline Phosphatase 160 U/L (45-117); Anion Gap 15.6 mEq/L (5.0-15.0); BUN Blood Urea Nitrogen 22 mg/dL (7-18); Globulin 3.9 g/dL (2.3-3.5); Lipase 46 U/L (13-75); Magnesium 1.7 mg/dL (1.6-2.4); NT PRO-BNP 16 pg/mL (<125); Potassium 3.6 mEq/L (3.5-5.1)
[2025-03-02 16:29] LABS: Bilirubin Indirect, Calculated 0.1 mg/dL (0.2-0.8); Troponin High Sensitivity < 3.0 pg/mL (<58.9)
[2025-03-02 16:33] LABS: Glucose Level 489 mg/dL (74-106)
[2025-03-02] MEDS ORDERED: POTASSIUM 25 MEQ EFFERV TAB ONE (17:13)
--- NOTE | 2025-03-02 19:15 | EDPHYS ---
Physician Documentation [facility] Name: Pamela Richter Age: 44 yrs Sex: Female : 1980 Arrival Date: 03/02/2025 Time: 14:10 Bed 23 Private MD: ED Physician Joon Rivers HPI: 03/02 14:35 This 44 yrs old Female presents to ER via Ambulatory with complaints of High Blood cp Sugar. 14:35 The patient or guardian reports hyperglycemia, that was potentially precipitated by no cp particular event. Onset: The symptoms/episode began/occurred for the past 6-7 days. 14:35 Associated signs and symptoms: Pertinent positives: not feeling well, Pertinent cp negatives: diaphoresis, diarrhea, vomiting, fever, chest pain, abdominal pain. Current symptoms: In the emergency department the patient's symptoms are unchanged from the initial presentation, despite home interventions. 14:37 Patient reports she has been taking 40 units twice a day of her long acting insulin and cp increasing her short acting insulin. 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 - Infectious Disease History:: Denies. - Social history:: Smoking status: Patient reports the use of cigarette tobacco products, smokes one pack cigarettes per day. ROS: 14:40 Constitutional: Negative for body aches, chills, fever, poor PO intake, cp 14:40 Cardiovascular: Negative for chest pain, cp 14:40 Respiratory: Negative for cough, shortness of breath, wheezing, 14:40 Abdomen/GI: Negative for abdominal pain, vomiting, diarrhea, constipation, 14:40 Neuro: Negative for altered mental status, dizziness, headache, 14:40 All other systems are negative, Exam: 14:45 Constitutional: The patient appears in no acute distress, alert, awake, cp non-diaphoretic, non-toxic, well developed, well nourished, overweight 14:45 Head/Face: Normocephalic, atraumatic. cp 14:45 Eyes: Periorbital structures: appear normal, Conjunctiva: normal, no exudate, no cp injection, Sclera: no appreciated abnormality, Lids and lashes: appear normal, bilaterally, 14:45 ENT: External ear(s): are unremarkable, Ear canal(s): are normal, clear, TM's: dullness, bilaterally, Nose: is normal, Mouth: Lips: moist, Oral mucosa: moist, Posterior pharynx: Airway: no evidence of obstruction, patent, 14:45 Neck: ROM/movement: is normal, is supple, without pain, no range of motions limitations, 14:45 Chest/axilla: Inspection: normal, 14:45 Cardiovascular: Rate: tachycardic, Rhythm: regular, 14:45 Respiratory: the patient does not display signs of respiratory distress, Respirations: normal, no use of accessory muscles, no retractions, labored breathing, is not present, Breath sounds: are clear throughout, no decreased breath sounds, no stridor, no wheezing, 14:45 Abdomen/GI: Inspection: abdomen appears normal, Palpation: abdomen is soft and non-tender, in all quadrants, 14:45 Back: pain, is absent, ROM is normal, 14:45 Skin: cellulitis, is not appreciated, no rash present. 14:45 Neuro: Orientation: to person, place \T\ time. Mentation: is normal, Cerebellar function: is grossly normal, Motor: moves all fours, strength is normal, Sensation: is normal, 16:27 ECG was reviewed by the Attending Physician. cp Vital Signs: 14:20 BP 116 / 85; Pulse 125; Resp 18; Temp 98.2; Pulse Ox 93% on R/A; Weight 86.18 kg; me1 Height 5 ft. 7 in. ; Pain 0/10; 17:41 BP 133 / 93; Pulse 99; Resp 16; Pulse Ox 100% on R/A; jb4 18:30 Pulse 101; Resp 16; Pulse Ox 100% on R/A; jb4 14:20 Body Mass Index 29.76 (86.18 kg, 170.18 cm) me1 14:20 Pain Scale: Adult me1 MDM: 14:16 Medical Screening Exam initiated cp 19:15 Data reviewed: vital signs, nurses notes, lab test result(s), EKG, and as a result, I cp will discharge patient. 19:15 Differential diagnosis: DKA, sepsis, uti, illegal drug use, alcohol abuse, alcohol cp intoxication, electrolyte abnormality. I considered the following discharge prescriptions or medication management in the emergency department Medications were administered in the Emergency Department. See MAR. Independent interpretation of the following test(s) in the Emergency Department EKG: See my EKG interpretation above. Counseling: I had a detailed discussion with the patient and/or guardian regarding the historical points, exam findings, and any diagnostic results supporting the discharge/admit diagnosis, to return to the emergency department if symptoms worsen or persist or if there are any questions or concerns that arise at home. Response to treatment: the patient's symptoms have markedly improved after treatment, and as a result, I will discharge patient. 19:15 ED course: VSS. Hyperglycemia markedly improved. Discussed illegal drug and alcohol cp use. Will discharge to home for continued monitoring. 03/02 14:31 Order name: Basic Metabolic Panel; Complete Time: 16:40 cp 03/02 16:41 Interpretation: Normal except: NA 132; CO2 20; ANION GAP 15.6; GLUC 489; BUN 22; CRE cp 1.38; GFR 48. 03/02 14:31 Order name: CBC with Diff; Complete Time: 16:40 cp 03/02 16:41 Interpretation: Normal except: RBC 4.93. cp 03/02 14:31 Order name: LFT's; Complete Time: 16:40 cp 03/02 16:41 Interpretation: Normal except: ALK 160; IBILI, CALC 0.1; GLOB 3.9; A/G 1.0. cp 03/02 14:31 Order name: Magnesium; Complete Time: 16:40 cp 03/02 17:18 Interpretation: Reviewed. cp 03/02 14:31 Order name: NT PRO-BNP; Complete Time: 16:40 cp 03/02 17:20 Interpretation: Reviewed. cp 03/02 14:31 Order name: PT-INR; Complete Time: 16:40 cp 03/02 14:31 Order name: Troponin HS; Complete Time: 16:40 cp 03/02 17:20 Interpretation: Reviewed. cp 03/02 14:31 Order name: BETA HYDROXYBUTYRATE; Complete Time: 16:40 cp 03/02 16:42 Interpretation: Abnormal: BHB 0.41. cp 03/02 14:31 Order name: UA Rfx Derrick Cult if indicated; Complete Time: 16:40 cp 03/02 17:17 Interpretation: Normal except: UGLUC 4+ (Over). 03/02 14:31 Order name: Test, Urine; Complete Time: 16:40 03/02 14:31 Order name: Lipase; Complete Time: 16:40 03/02 16:42 Interpretation: Reviewed. 03/02 14:31 Order name: Glucose, Ancillary Testing; Complete Time: 14:47 EDMS 03/02 14:47 Interpretation: Reviewed. 03/02 14:48 Order name: ETOH Level; Complete Time: 16:40 03/02 16:42 Interpretation: Abnormal: ETOH 50. 03/02 14:48 Order name: UDS; Complete Time: 16:40 03/02 16:42 Interpretation: Abnormal: METHAMPHETAMINE POSITIVE. 03/02 17:11 Order name: Glucose, Ancillary Testing; Complete Time: 17:16 EDMS 03/02 17:16 Interpretation: Abnormal: GLUC,ANCIL 404. 03/02 19:21 Order name: Glucose, Ancillary Testing; Complete Time: 19:42 EDMS 03/02 19:42 Interpretation: Reviewed. 03/02 14:31 Order name: EKG; Complete Time: 14:32 03/02 14:31 Order name: Cardiac monitoring; Complete Time: 16:33 03/02 14:31 Order name: EKG - Nurse/Tech; Complete Time: 16:33 03/02 14:31 Order name: IV Saline Lock; Complete Time: 16:33 03/02 14:31 Order name: Labs collected and sent; Complete Time: 16:33 03/02 14:31 Order name: O2 Per Protocol; Complete Time: 15:25 03/02 14:31 Order name: O2 Sat Monitoring; Complete Time: 15:25 03/02 16:59 Order name: Accucheck Blood Glucose; Complete Time: 17:30 03/02 19:08 Order name: Accucheck Blood Glucose; Complete Time: 19:18 cp EC:27 Rate is 106 beats/min. Rhythm is regular. GA interval is normal. QRS interval is cp normal. QT interval is normal. T waves are Inverted in leads III, V3. Interpreted by me. Reviewed by me. Administered Medications: 15:51 Drug: NS 0.9% IV 1000 ml IV at 1 bolus Per protocol; to be given as a bolus over 60 jb4 minutes Route: IV; Rate: 1 bolus; Site: right hand; 16:50 Follow up: Response: No adverse reaction; IV Status: Completed infusion; IV Intake: jb4 1000ml 15:53 Drug: Insulin Regular Human Sub-Q 10 units Sub-Q once {Co-Signature: jb4 (Francisco J Aragon RN).} Route: Sub-Q; Site: right upper abdomen; 16:45 Follow up: Response: No adverse reaction jb4 17:15 Drug: Insulin Regular Human IVP 10 units IVP once; if blood glucose >300 {Co-Signature: jb4 aa5 (Radha Puri RN).} Route: IVP; Site: right hand; 18:15 Follow up: Response: No adverse reaction; Marked relief of symptoms; Blood sugar is jb4 elevated 17:15 Drug: NS 0.9% IV 1000 ml IV at 1 bolus Per protocol; to be given as a bolus over 60 jb4 minutes Route: IV; Rate: 1 bolus; Site: right hand; 18:15 Follow up: Response: No adverse reaction; IV Status: Completed infusion; IV Intake: jb4 1000ml 17:43 Drug: Potassium PO Effervescent Tablet 50 mEq PO once; dissolve in 4 ounces of water or jb4 juice Route: PO; 19:42 Follow up: Response: No adverse reaction jb4 Disposition Summary: 03/02/25 19:15 Discharge Ordered Notes: Location: Home cp Problem: new cp Symptoms: have improved cp Condition: Stable cp Diagnosis - Diabetes mellitus due to underlying condition with hyperglycemia cp - Alcohol use, unspecified cp - Adverse effect of amphetamines cp Followup: cp - With: Private Physician - When: 2 - 3 days - Reason: Worsening of condition Discharge Instructions: - Discharge Summary Sheet cp - Alcohol Use Disorder cp - Hyperglycemia cp - Daily Diabetes Mellitus Record cp - Alcohol Abuse and Nutrition cp - Methamphetamines Use Disorder cp - Blood Glucose Monitoring, Adult cp - Diabetes Mellitus and Nutrition, Adult cp - Alcohol Abuse and Dependence Information, Adult cp Forms: - Medication Reconciliation Form cp - Antibiotic Education cp - Prescription Opioid Use cp - Patient Portal Instructions cp - Leadership Thank You Letter cp Critical care time excluding procedures: 03/03 17:31 Critical care time: Bedside Care: 5 minutes, Consultation: 25 minutes. Total time: 30 cp minutes Addendum: 03/04/2025 07:02 Co-signature as Attending Physician, Joon Rivers MD I reviewed the patient's care r n provided by the Advanced Practice Provider and agree with the diagnosis and treatment plan. Signatures: Dispatcher [employer] Joon Mckeon MD MD rn Page, Corey, PA-C PA-C Rylee Bansal RN RN Francisco J Aragon, CONOR RN jb4 Sanjuanita Recinos RN RN me1 Francisco J Aragon RN jb4 Radha Puri RN aa5 Corrections: (The following items were deleted from the chart) 03/02 14:32 14:31 BASIC METABOLIC PANEL+C.LAB.BRZ ordered. EDMS EDMS 14:32 14:31 CBC+H.LAB.BRZ ordered. EDMS EDMS 14:32 14:31 HEPATIC FUNCTION+C.LAB.BRZ ordered. EDMS EDMS 14:32 14:31 MAGNESIUM+C.LAB.BRZ ordered. EDMS EDMS 14:32 14:31 PROBNP+C.LAB.BRZ ordered. EDMS EDMS 14:32 14:31 PROTIME (+INR)+COAG.LAB.BRZ ordered. EDMS EDMS 14:32 14:31 Troponin High Sensitivity+C.LAB.BRZ ordered. EDMS EDMS 14:32 14:31 BETA HYDROXYBUTYRATE+C.LAB.BRZ ordered. EDMS EDMS 14:32 14:31 UA Rfx Derrick Cult if indicated+U.LAB.BRZ ordered. EDMS EDMS 14:32 14:31 Test, Urine+UC.LAB.BRZ ordered. EDMS EDMS 14:32 14:31 LIPASE+C.LAB.BRZ ordered. EDMS EDMS 14:49 14:49 ETHANOL+C.LAB.BRZ ordered. EDMS EDMS 14:49 14:49 URINE DRUG SCREEN+UC.LAB.BRZ ordered. EDMS EDMS
--- NOTE | 2025-03-02 19:15 | ER ---
Nurse's Notes [facility] Name: Pamela Richter Age: 44 yrs Sex: Female : 1980 Arrival Date: 03/02/2025 Time: 14:10 Bed 23 Private MD: Diagnosis: Diabetes mellitus due to underlying condition with hyperglycemia;Alcohol use, unspecified;Adverse effect of amphetamines Presentation: 03/02 14:20 Chief complaint: Patient states: for the past 6 days patient reports her blood sugar me1 has been high. On waking this morning BGL was "hi" at home. Reports she has been taking extra insulin trying to get it down and it's consistently staying high. In triage BGL 407. Patient states she "just doesn't feel good.". Coronavirus screen: Vaccine status: Patient reports receiving the 2nd dose of the covid vaccine. Ebola Screen: No symptoms or risks identified at this time. Initial Sepsis Screen: Does the patient meet any 2 criteria? HR > 90 bpm. Does the patient have a suspected source of infection? No. Patient's initial sepsis screen is negative. Risk Assessment: Do you want to hurt yourself or someone else? Patient reports no desire to harm self or others. Onset of symptoms is unknown. 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 - Infectious Disease History:: Denies. - Social history:: Smoking status: Patient reports the use of cigarette tobacco products, smokes one pack cigarettes per day. Screenin:58 [facility] ED Fall Risk Assessment (Adult) History of falling in the last 3 months, jb4 including since admission No falls in past 3 months (0 pts) Confusion or Disorientation No (0 pts) Intoxicated or Sedated No (0 pts) Impaired Gait No (0 pts) Mobility Assist Device Used No (0 pt) Altered Elimination No (0 pt) Score/Fall Risk Level 0 - 2 = Low Risk Oriented to surroundings, Maintained a safe environment. Abuse screen: Denies threats or abuse. Nutritional screening: No deficits noted. Tuberculosis screening: No symptoms or risk factors identified. Assessment: 15:15 General: Appears in no apparent distress. uncomfortable, Behavior is calm, cooperative, jb4 appropriate for age, anxious. Pain: Denies pain. Neuro: Level of Consciousness is awake, alert, obeys commands, Oriented to person, place, time, situation. Cardiovascular: Patient's skin is warm and dry. Respiratory: Airway is patent Respiratory effort is even, unlabored, Respiratory pattern is regular, symmetrical. Derm: Skin is intact, Skin is pink, warm \\T\\ dry. Musculoskeletal: Circulation, motion, and sensation intact. Range of motion: intact in all extremities. 16:58 Reassessment: Patient appears in no apparent distress at this time. Patient and/or jb4 family updated on plan of care and expected duration. Pain level reassessed. Patient is alert, oriented x 3, equal unlabored respirations, skin warm/dry/pink. 18:00 Reassessment: Patient appears in no apparent distress at this time. Patient and/or jb4 family updated on plan of care and expected duration. Pain level reassessed. Patient is alert, oriented x 3, equal unlabored respirations, skin warm/dry/pink. 19:00 Reassessment: Patient appears in no apparent distress at this time. Patient and/or jb4 family updated on plan of care and expected duration. Pain level reassessed. Patient is alert, oriented x 3, equal unlabored respirations, skin warm/dry/pink. Vital Signs: 14:20 BP 116 / 85; Pulse 125; Resp 18; Temp 98.2; Pulse Ox 93% on R/A; Weight 86.18 kg; me1 Height 5 ft. 7 in. ; Pain 0/10; 17:41 BP 133 / 93; Pulse 99; Resp 16; Pulse Ox 100% on R/A; jb4 18:30 Pulse 101; Resp 16; Pulse Ox 100% on R/A; jb4 14:20 Body Mass Index 29.76 (86.18 kg, 170.18 cm[place] [facility] [place] Pain Scale: [place] [facility] [place]: 14:13 Patient arrived in ED. al6 14:14 Orion Trevino PA-C is PHCP. cp 14:14 Joon Rivers MD is Attending Physician. cp 14:23 Triage completed. me1 14:23 Arm band placed on Patient placed in waiting room. me1 15:46 Missed attempt(s): 20 gauge in left antecubital area. Bleeding controlled, band aid iw applied, catheter tip intact. 15:46 Initial lab(s) drawn, by me, sent to lab. Inserted saline lock: 22 gauge in right hand, iw using aseptic technique. Blood collected. Flushed with 10 mL NS. 16:33 Francisco J Aragon, RN is Primary Nurse. jb4 16:58 Patient has correct armband on for positive identification. Bed in low position. Call jb4 light in reach. Side rails up X 1. Provided Education on: plan of care. 16:58 No provider procedures requiring assistance completed. jb4 19:41 IV discontinued, intact, bleeding controlled, No redness/swelling at site. Pressure jb4 dressing applied. Administered Medications: 15:51 Drug: NS 0.9% IV 1000 ml IV at 1 bolus Per protocol; to be given as a bolus over 60 jb4 minutes Route: IV; Rate: 1 bolus; Site: right hand; 16:50 Follow up: Response: No adverse reaction; IV Status: Completed infusion; IV Intake: jb4 1000ml 15:53 Drug: Insulin Regular Human Sub-Q 10 units Sub-Q once {Co-Signature: jose (Francisco J Aragon RN).} Route: Sub-Q; Site: right upper abdomen; 16:45 Follow up: Response: No adverse reaction jb4 17:15 Drug: Insulin Regular Human IVP 10 units IVP once; if blood glucose >300 {Co-Signature: jose aaJazzmine (Radha Puri RN).} Route: IVP; Site: right hand; 18:15 Follow up: Response: No adverse reaction; Marked relief of symptoms; Blood sugar is jb4 elevated 17:15 Drug: NS 0.9% IV 1000 ml IV at 1 bolus Per protocol; to be given as a bolus over 60 jb4 minutes Route: IV; Rate: 1 bolus; Site: right hand; 18:15 Follow up: Response: No adverse reaction; IV Status: Completed infusion; IV Intake: jb4 1000ml 17:43 Drug: Potassium PO Effervescent Tablet 50 mEq PO once; dissolve in 4 ounces of water or jb4 juice Route: PO; 19:42 Follow up: Response: No adverse reaction jb4 Medication: 19:40 VIS not applicable for this client. jb4 Intake: 16:50 IV: 1000ml; Total: 1000ml. jb4 18:15 IV: 1000ml; Total: 2000ml. jb4 Outcome: 19:15 Discharge ordered by . cp 19:41 Discharged to home ambulatory, jb4 19:41 Condition: stable 19:41 Discharge instructions given to patient, Instructed on discharge instructions, follow up and referral plans. Demonstrated understanding of instructions, follow-up care, 19:44 Patient left the ED. jb4 Signatures: Santa Marcus, RN RN iw Orion Trevino, PA-C PA-C Rylee Bansal RN RN Francisco J Aragon, RN RN jb4 Sanjuanita Recinos RN RN me1 Carley Quiles al6 Francisco J Aragon RN jb4 Radha Puri RN aa5
[2025-03-02 20:25] VITALS: TEMP 98.2
[2025-03-02 20:28] VITALS: BP 133/93; O2SAT 100
== END 2025-03-02 19:44 | disposition home or self-care (01) ==
LOC: ER 14:10
DX: E11.65 Type 2 diabetes mellitus with hyperglycemia (principal); T43.625A Adverse effect of amphetamines, initial encounter; F10.20 Alcohol dependence, uncomplicated
CPT/HCPCS: 36415; 80048; 80076; 80307; 81003; 81025; 82010; 82077; 82947; 83690; 83735; 83880; 84484; 85025; 85610; 93005; 96361; 96372; 96374; 99284; J1815; J7030